=== PATIENT | male | born 1940 | race Caucasian/White ===

== ENCOUNTER 2017-05-09 09:17 | Emergency (ER) | payer MEDICARE, OTHER, SELFPAY ==
[2017-05-09 09:18] VITALS: BP 154/79; PULSE 120; RESP 20; TEMP 36.1; O2SAT 97; BMI 28.4
--- NOTE | 2017-05-09 09:38 | VDLE_ITS ---
Reason For Study: PAIN Procedure LEFT Exam performed portable in ED. GSV is normal. A preliminary report was called and/or faxed CFV is compressible, spontaneous, phasic, to ED. competent, and demonstrates normal augmentation. FV is compressible, spontaneous, phasic, competent and demonstrates normal augmentation. POP V is compressible, spontaneous, phasic, competent and demonstrates normal augmentation. T/P Trunk is compressible. PTV is compressible. LT PerV is compressible. Interpretation Summary Deep veins of the left lower extremity are patent and compressible segmentally. There is no evidence of left lower extremity deep vein thrombosis. Valvular competence appears intact within the proximal deep venous system on the left . The left greater saphenous vein appears patent and compressible segmentally. Ordering Physician: Kushal Toribio Referring Physician: ELOISA ROBLES Performed By: Mary Maddox, FERNANDA, RVT
--- NOTE | 2017-05-09 09:38 | ED.VISSUMM ---
- ER Visit Summary Date of Service: 05/09/17 Chief Complaint: Possible blood clot History of Present Illness: The patient is a 76 M who underwent spine surgery about 2 weeks ago. He has been doing well and has had no complaints related 3. Over the last couple days, he noted pain and swelling in his left calf. He was concerned for a blood clot. He never had history of venous thromboembolism. He does not take blood thinners. He denies any new symptoms like numbness or weakness. He does not have any chest pain, shortness of breath, or cough. Physical Examination: Vital signs are unremarkable except for a heart rate of 120. Patient is sitting upright and appears well. No acute distress. Speaking full sentences. Heart is regular but tachycardic. Lungs are clear. Left calf shows focal swelling and tenderness over the mid calf. He also has trace edema on the left side greater than the right side. He is neurovascular intact distally in both extremities. Good strength and sensation distally. He does have some paresthesias to his left dorsal foot, but these are not new. Test Results: Venous ultrasound pending Emergency Department Course and Treatment: Will evaluate the patient for DVT. His heart rate of 120 was concerning. He says he has no history of tachycardia. He also has no history of chest pain, shortness of breath, or cough. If he does have a DVT, I will pursue this further. For right now I will just monitor him for any new or worsening symptoms. Will reassess after his ultrasound. Ultrasound negative. Repeat heart rate 100 and pulse ox 97% on room air. This is likely muscle pain. Patient will follow up with his doctors as planned. Treatment Plan: As above Disposition: Discharged Impression: 1. Left calf pain This note was generated with [employer] dictation software. It may contain incorrect words, spelling, and punctuation that were not noted in review of the chart prior to signing ED Disposition - Plan for ED Patient: Chief Complaint: Lower Extremity Injury Referrals: Wily Espinal MD [Primary Care Provider] -
--- NOTE | 2017-05-09 10:41 | ED.DEP ---
ED Disposition - Plan for ED Patient: Chief Complaint: Lower Extremity Injury Instructions: ED [facility] Referrals: Wily Espinal MD [Primary Care Provider] -
[2017-05-09 11:01] VITALS: BP 134/86; PULSE 100; RESP 16; O2SAT 99
== END 2017-05-09 11:03 | disposition home or self-care (01) ==
LOC: ED 10:53
PROVIDERS: Emergency Provider Emergency Medicine; Family Provider Family Medicine; PCP Family Medicine
DX: M79.662 Pain in left lower leg (principal); M79.89 Other specified soft tissue disorders; R20.2 Paresthesia of skin; R00.0 Tachycardia, unspecified; M54.9 Dorsalgia, unspecified; Z79.899 Other long term (current) drug therapy; Z87.891 Personal history of nicotine dependence
CPT/HCPCS: 93971; 99282

== ENCOUNTER → 2018-09-10 11:41 | Outpatient (CLI) | payer MEDICARE, OTHER, SELFPAY ==
--- NOTE | 2018-09-10 12:15 | CR.ITP_ITS ---
General Information - General Information Admitting Diagnosis: S/P CABG - Education/Goals Barriers to Learning: Hearing Impairment, Vision Impairment Individual Counseling: Initial Assessment: Abnormal Cholesterol Levels, High Blood Pressure, Overweight/Obesity Cardiac Rehabilitation Goals: 1. Maintain the individual as the primary focus of care. 2. To improve the patient's quality of life. 3. Identification of cardiac risk factors and provide cardiac risk factor management. 4. Enhance the psychosocial status of the patient. 5. Reconditioning enough to allow the patient to resume customary activities. 6. Control symptoms of cardiac disease Scale for measuring improvement of personal goals: Enter appropriate number in Comments. 2 = Unchanged. 3 = Slightly Better. 4 = Moderate Improvement. 5 = Met my Goal Personal Goals: Initial Assessment: Participate in home exercise program, Get back to work, or to resume activities faster, Improve muscle strength and endura nce, Control risk factors (learn risk factor modification) Exercise - Initial Assessment - Visit Date of Eval: 09/10/18 Session #:: 0 - SCHEDULED TO START CR - Stages of Change Stages of Change:: Action - Physician Prescribed Exercise Modalities: Treadmill, Airdyne, NuStep, SciFit Frequency (days/week): 3x/week for 12 weeks [36 sessions] Duration (Minutes):: 30-45 MINUTES Intensity: 60-80% age predicted maximum heart rate reserve - 95-123 METs - Progression: 0.5-1.0 MET, RPE 11-14 WEEK: 2.5 Target Heart Rate:: 95-123 - Hypertension Do any of the following apply?: Yes, Medication, Diet Resting Blood Pressure:: 100/68 - Intervention Home Exercise/Activity Goal:: Moderate Exercise 30 min/day x 5 days/wk - Education Goals:: Warm-up, RPE SONIA Scale, S/S, Safe Exercise, Self-Monitoring - Exercise Program Goals Exercise Program Goals: Aerobic Activity >30 min Nutrition - Initial Assessment - Program Goals Nutrition Program Goals: LDL <70. Total Cholesterol <200. HDL >45. Triglycerides <150. HgbA1C <7%. BMI <25 - Visit Date of Assessment:: 09/10/18 - SCHEDULED TO START CR - Lipids Total Cholesterol (mg/dL) Goal = less than 200 mg/dL: 0 - NOT AVAILABLE - Diabetes Diabetes:: No Insulin: No Non-Insulin Dependent?: No Do you monitor your blood sugar at home?: No - Weight Management Height: 5 ft 7.5 in Weight:: 186 lb Body Fat %:: 28.7 - Intervention Referral to dietitian:: Yes Referral to Diabetic Clinic:: No Will attend diet classes:: Yes - Education Gave educational materials for:: Healthy eating Tobacco - Initial Assessment - Program Goals Tobacco Program Goals: Complete smoking cessation. Attend education classes. Improve Knowledge Test score - Stage of Change Stages of Change:: Action - Learning Barriers Learning Barriers: Hearing, Vision, Ready to Learn - Family Support Do you have family support?: Yes - Tobacco Use Tobacco Use: Non-smoker Do you use smokeless tobacco?: No - Intervention Smoking Cessation Referral:: No Individual Education/Counseling:: No Education Schedule Given:: Yes - Education Attended class for:: Treating Heart Disease, How The Heart Works, What it means to have Heart Disease, How Coronary Artery Disease is Diagnosed, Heart Procedures, What Heart Medications Do, Risk Factors & Modifications, Living an Active Life, Nutrition, Emotions & Heart Disease, Stress Management & Relaxation, Sleep Disorders & Heart Disease Psychosocial - Initial Assess - Target Goals Target Goals: Assess presence or absence of depression. Using a valid screening tool, maximizes coping skills. Positive support system - Stages of Change Stages of Change:: Action - Psychosocial Test Tool Used:: HANDS Depression Questionnaire - Intervention PS - Interventions: Yes Attend Stress Management Classes, No Referral to Mental Health, No Referral to [facility] Case Management, No Referral to Physician, No Uses Stress Management Skills - Education Gave educational materials for:: Coping techniques, Signs & symptoms of depression, Stress management, Relaxation techniques - Patient/Program Goal Preventative Medication(s):: Aspirin, JUSTINA inhibitor, Clopidogrel, Beta getachew, Statin/lipid - Assistive Devices Assistive Devices:: None Fall Risk Assessed:: Yes Patient Health Questionnaire Initial Assessment 1. Little interest or pleasure in doing things: Not at all 2. Feeling down, depressed, or hopeless: Not at all 3. Trouble falling or staying asleep, or sleeping too much: Not at all 4. Feeling tired or having little energy: Not at all 5. Poor appetite or overeating: Not at all 6. Feeling bad about yourself -- or that you are a failure or have let yourself or your family down: Not at all 7. Trouble concentrating on things, such as reading the newspaper or watching television: Not at all 8. Moving or speaking so slowly that other people could have noticed. Or the opposite - being so fidgety or restless that you have been moving around a lot more than usual: Not at all 9. Thoughts that you would be better off , or of hurting yourself in some way: Not at all How difficult have these problems made it for you to do your work, take care of things at home, or get along with other people?: Not difficult at all Total Score: 0 KONRAD-Q SV Test - Statements CAD is a disease of the arteries in the heart: False Examples of risk factors for heart disease: True Angina is chest pain or discomfort: True The benefits of resistance training include: False Eating more meat and dairy products: False Anti-platelet medications such as aspirin are important: True The only effective way to manage stress: False An exercise warm-up slowly increases heart rate: True Prepared, processed foods usually have high sodium: True Depression is common after a heart attack: True The statin medications lower cholesterol: True To control blood pressure, lower the amount of sodium: True If someone gets chest discomfort during walking: False Transfats are partially hydrogenated vegetable oils: True Sleep apnea that is not treated increases the risk: True To control cholesterol, one should become a vegetarian: False Someone knows if he/she is exercising at the right level: True Diabetes cannot be prevented with exercise & health eating: True Stress is a large risk for heart attack: True A diet that can help lower blood pressure is rich in: True - Total Score Total Correct Responses: 17 Self-Efficacy Initial Assessment We would like to know how confident you are in doing certain activities. Please select your confidence level for:: Select your confidence level for the following using the scale 1-10 where 1 is not at all confident and 10 is totally confident. Your score is the average of all 6 responses. Fatigue: How confident are you that you can keep the fatigue caused by your disease from interfering with the things you want to do? Select Number: 8 Physical Discomfort or Pain: How confident are you that you can keep the physical discomfort or pain of your disease from interfering with the things you want to do? Select Number: 8 Emotional Distress: How confident are you that you can keep the emotional distress caused by your disease from interfering with the things you want to do? Select Number: 10 Other Symptoms or Health Problems: How confident are you that you can keep other symptoms or health problems from interfering with the things you want to do? Select Number: 8 Different Tasks and Activities: How confident are you that you can do the different tasks and activities needed to manage your health condition so as to reduce your need to see a doctor? Select Number: 8 Medication: How confident are you that you can do things other than just taking medication to reduce how much your illness affects your everyday life? Select Number: 9 Total Score:: 8 Nutrition Survey - Nutrition Survey Instructions Scoring Instructions: Scoring is as follows: Yes = 1 points. No = 0 point. Patient score that is >/=12 is considered to be at potential nutritional risk and could benefit from a referral to a registered dietitian. - Nutrition Survey Initial Have you lost >10 lbs over the past 2 months without trying?: Yes Are you following a special diet at home for diabetes, low fat, or low salt?: No Are you interested in meeting with a dietitian for help understanding your diet?: No Do you eat less than 3 meals a day?: No Do you eat fatty meats (foster, sausage, ribs, etc), fried foods, desserts, large amounts of salad dressings, margarine, butter, or cheese most days?: Yes Do you have food allergies? [Enter types in comment field]: No Do you eat in restaurants more than 3 times a week?: No Do you season food with salt, seasoning salt, or garlic salt?: No Do you used canned, boxed, frozen meals, or soups, seasoning packets?: Yes Total Score:: 3
--- NOTE | 2018-09-10 12:47 | CR.HP_ITS ---
CR - History & Physical - General Arrival date:: 09/10/18 Arrival time:: 12:00 Date of Referral:: 08/30/18 Date of CR Evaluation:: 09/10/18 Referring Physician: DIPAK CRISTOBAL Primary Diagnosis: CABG X3 - History of Present Cardiac Event Onset Date: Enter Onset Date of cardiac illnesses in Comment field below Current stable Angina Pectoris:: No Acute Myocardial Infarction within 12 months:: No Coronary Artery Bypass Graft:: Yes - X3 Heart valve replacement or repair:: No PTCA or coronary stenting:: No Heart or Heart-Lung Transplant:: No Type of Symptoms:: JUST SOB Interventions with present event:: CAGB X3 Were there any complications?: NONE - Medications Home Medications: Ambulatory Orders Medication Instructions Recorded Baclofen [Lioresal] 10 mg PO QHS 05/09/17 Levothyroxine [Synthroid] 175 mcg PO DAILY 05/09/17 Oxycodone HCl/Acetaminophen 1 - 2 tablet PO Q6H PRN PRN 05/09/17 [Percocet 5/325] Pantoprazole Sodium [Protonix] 40 mg PO DAILY 05/09/17 - Allergies Allergies/Adverse Reactions: Allergies azithromycin [From Zithromax] Adverse Reaction (Verified 05/09/17 09:20) Nausea/Vom/Diarrhea - Sleep Disorder Evaluation Hx of Sleep Apnea: No Do you snore loudly (louder than talking or can be heard through closed doors)?: No Do you often feel tired/ fatigued/ sleepy during daytime?: No Has anyone observed you stop breathing during sleep?: No History of Hypertension (for STOP score): No STOP Results: Negative Advanced Directives - Advanced Directives Power of Display And Banner Designer: Yes Living Will: Yes Advance Directives Information Provided: Yes Advance Directives on File: No - PT ENCOURAGED TO BRING IN ALL COPIES TO [facility] MEDICAL RECORDS DNR Order?:: No Social History - Smoking History Smoking Status: Former smoker Years Smokin Hx Smoking Cessation Date: 1986 Hx Tobacco Use: Yes - Alcohol Use Alcohol Usage: No - CASUAL - Substance Abuse Hx Substance Use: No - Occupation Occupation (List type of work in comments):: Retired - Hobbies, Recreation, Social Activities Hobbies: Other - GOLF, GARDENING Recreational Activities: I cannot do any recreational activities at all Social Environment - Status Marital Status: - Current Living Arrangements Living Environment:: Spouse - Children How many children do you have?: 3 Do any of your children live nearby?: Yes - Safety Do you feel safe in your surroundings?: Yes - Assistance Do you need any assistance at home?: NONE Review of Systems - Review of Systems Hints: Right click = Denies (Slash). Left click = Reports ([place]) Review of Present Symptoms: Reports: Shortness of Breath with Exertion, Operative Discomfort, Wound Healing, Appetite - Normal. Denies: Shortness of Breath at Rest, PVD, Angina, Dizziness/Lightheadedness, Fatigue, Heart Arrhythmia/Irregularities, Appetite - Special Diet, Sleep - Normal - Pain Is Patient Pain Free?: Yes Risk Factor Assessment - Chief Complaint Chief Complaint: PT HERE FOR CR PHASE II EVALUALTION, CABG X3 - Vital Signs Temperature: 98.6 F Respiratory Rate: 14 Pulse Ox: 97 Blood Pressure: 100/68 Nailbeds:: PINK - Pulse Pulse Rate: 85 Pulse Rhythm: Regular - Hypertension How long have you been treated?: SINCE CABG On medication(s)?: YES Blood Pressure Sitting - Left Arm: 100/68 - Blood Cholesterol/Lipids Total Cholesterol (mg/dL) Goal = less than 200 mg/dL: 0 - NO CHOL LAB AVAIL AT THIS TIME - Diabetes Nutrition Referral for Diabetes: No - Obesity Height: 5 ft 7.5 in Weight:: 186 lb Weight in Pounds: 186.0 lbs Weight Source: Estimated by Patient Body Mass Index (BMI): 28.7 Nutritional Referral for Obesity: No - Physical Inactivity Physical Inactivity: None - Risk Stratification Risk Guidelines: Lowest Risk: Risk Factor for Smoking, Risk Factor for Dyslipidemia, Risk Factor for Diabetes, Risk Factor for Hypertension, Risk Factor for Depression, Moderate Risk: Risk Factor for Obesity, Risk Factor for Sedentary Lifestyle - For Smoking Smoking Risk Guidelines: Smoking Low Risk: None or quit greater than 6 months ago. Smoking Moderate Risk: Smoker or quit 6 months or less ago. Smoking High Risk: Smoker - For Dyslipidemia Dyslipidemia Risk Guidelines: Low Risk: Moderate Risk: High Risk: 15-25% fat 25.1-29% fat >/= 30% fat. <7% sat fat 7-9% sat fat >9% sat fat. <150 mg chol 150-299 mg chol >/= 300 mg chol. LDL <100 LDL 100-129 LDL >/= 130. Chol/HDL ratio <5.0 Chol/HDL ratio 5.0-6.0 Chol/HDL ratio >6.0. Triglycerides <100 Triglycerides 100-149 Triglycerides >/= 150 - For Diabetes Mellitus Diabetes Risk Guidelines: Diabetes Low Risk: HgA1c <6.5% and/or FBG <120. Diabetes Moderate Risk: HgA1c 6.6-7.9% and/or FBG 120-180. Diabetes High Risk: HgA1c >/= 8% and/or FBG >180 - For Obesity/Overweight Obesity/Overweight Risk Guidelines: Obesity Low Risk: BMI <25.0. Obesity Moderate Risk: BMI 25-29.9. Obesity High Risk: BMI >/= 30.0 - For Hypertension Hypertension Risk Guidelines: Hypertension Low Risk: Systolic <120 and Diastolic <80. Hypertension Moderate Risk: Systolic 120-139 and Diastolic 80-89. Hypertension High Risk: Systolic >/= 140 and Diastolic >/= 90 - For Sedentary Lifestyle Sedentary Lifestyle Risk Guidelines: Sedentary Lifestyle Low Risk: >/= 1,500 kcal/week. Sedentary Lifestyle Moderate Risk: 700-1,499 kcal/week. Sedentary Lifestyle High Risk: < 700 kcal/week - For Depression Depression Risk Guidelines: Depression Low Risk: Not clinically depressed. Depression Moderate Risk: Mildly depressed. Depression High Risk: Clinically depressed Motivation - Motivation to Participate On a scale of 1 to 10, how prepared are you to commit to attending program?: 10 What do you see as barriers to successfully being able to complete the program?: NONE What do you see as the benefits of succesfully completing the program? In other words, what do you hope to get out of participating in the program?: WANT TO IMPROVE MY HEALTH AND HAVE AN ACIVE LIFE Are there issues you are dealing with that will interfere with completing the program?: NONE Do you have a spouse or signficant other, family or friends who will help support you to complete the program?: SPOUSE
[2018-09-10 13:05] VITALS: BP 100/68; PULSE 85; RESP 14; TEMP 37; O2SAT 97; BMI 28.7
[2018-09-10 13:25] VITALS: BP 100/68
== END ==
PROVIDERS: Family Provider Family Medicine; PCP Family Medicine
DX: Z95.1 Presence of aortocoronary bypass graft (principal)

== ENCOUNTER 2018-09-11 14:33 | Outpatient (RCR) | payer MEDICARE, OTHER, SELFPAY | END 2018-09-11 23:59 | LOC: CR 14:33 | PROVIDERS: Family Provider Family Medicine; PCP Family Medicine | DX: I25.10 Atherosclerotic heart disease of native coronary artery without angina pectoris (principal); Z95.1 Presence of aortocoronary bypass graft | CPT/HCPCS: 93798 ==

== ENCOUNTER 2018-10-09 14:15 | Outpatient (RCR) | payer MEDICARE, OTHER, SELFPAY ==
[2018-09-10 13:05] VITALS: BMI 28.7
--- NOTE | 2018-10-11 09:20 | CR.ITP_ITS ---
Exercise - 30-day Assessment - Visit Date of Eval: 10/11/18 Session #:: 13 - Patient has not missed any sessions. - Stages of Change Stages of Change:: Action - Physician Prescribed Exercise Modalities: Treadmill, Rower, Airdyne, NuStep Frequency (days/week): 3 Duration (Minutes):: 30-45 Intensity: 60-80% age predicted maximum heart rate reserve METs - Progression: 0.5-1.0 MET, RPE 11-14 WEEK: 3.0 Target Heart Rate:: 95-123 w/ max HR 127 - Hypertension Resting Blood Pressure:: 100/62 - Resting HR 90-116 Medication Changes:: Yes - Metoprolol increased to 75mg BID. - Intervention Home Exercise/Activity Goal:: Moderate Exercise 30 min/day x 5 days/wk - Education Goals:: Warm-up, RPE SONIA Scale, S/S, Safe Exercise, Self-Monitoring - Exercise Program Goals Exercise Program Goals: Aerobic Activity >30 min Nutrition - Initial Assessment - Program Goals Nutrition Program Goals: LDL <70. Total Cholesterol <200. HDL >45. Triglycerides <150. HgbA1C <7%. BMI <25 - Diabetes Do you monitor your blood sugar at home?: No Nutrition - 30-Day Assessment - Program Goals Nutrition Program Goals: LDL <70. Total Cholesterol <200. HDL >45. Triglycerides <150. HgbA1C <7%. BMI <25 - Visit Date of Eval: 10/11/18 - Stages of Change Stages of Change:: Action - Lipids Has the patient seen the dietitian?: No - Diabetes Diabetes:: No - Weight Management Weight:: 191 lb - +/- 0.5 stable - Intervention Referral to dietitian:: No Referral to Diabetic Clinic:: No Will attend diet classes:: Yes - Education Attended class for:: Healthy eating Tobacco - Initial Assessment - Program Goals Tobacco Program Goals: Complete smoking cessation. Attend education classes. Improve Knowledge Test score - Learning Barriers Learning Barriers: Hearing, Vision, Ready to Learn Tobacco - 30-Day Assessment - Program Goals Tobacco Program Goals: Complete smoking cessation. Attend education classes. Improve Knowledge Test score - Stage of Change Stages of Change:: Action - Learning Barriers Learning Barriers: Participates in education - Family Support Do you have family support?: Yes - Tobacco Use Tobacco Use: Non-smoker Do you use smokeless tobacco?: No - Intervention Smoking Cessation Referral:: No Education Schedule Given:: Yes - Education Attended class for:: Treating Heart Disease, How The Heart Works, What it means to have Heart Disease, How Coronary Artery Disease is Diagnosed, Heart Procedures Psychosocial - Initial Assess - Target Goals Target Goals: Assess presence or absence of depression. Using a valid screening tool, maximizes coping skills. Positive support system - Psychosocial Test Tool Used:: HANDS Depression Questionnaire - Assistive Devices Fall Risk Assessed:: Yes Psychosocial - 30-Day Assess - Target Goals Target Goals: Assess presence or absence of depression. Using a valid screening tool, maximizes coping skills. Positive support system - Stages of Change Stages of Change:: Action - Psychosocial Test Tool Used:: HANDS Depression Questionnaire - Intervention PS - Interventions: Yes Attend Stress Management Classes, No Referral to Mental Health, No Referral to [facility] Case Management, No Referral to Physician, No Uses Stress Management Skills - Education Attended classes for:: Coping techniques, Signs & symptoms of depression, Stress management, Relaxation techniques - Patient/Program Goal Preventative Medication(s):: Aspirin, JUSTINA inhibitor, Clopidogrel, Beta getachew, Statin/lipid - Assistive Devices Assistive Devices:: None Fall Risk Assessed:: Yes Patient Health Questionnaire 30-Day Re-eval Assessment 1. Little interest or pleasure in doing things: Not at all 2. Feeling down, depressed, or hopeless: Not at all 3. Trouble falling or staying asleep, or sleeping too much: Not at all 4. Feeling tired or having little energy: Not at all 5. Poor appetite or overeating: Not at all 6. Feeling bad about yourself -- or that you are a failure or have let yourself or your family down: Not at all 7. Trouble concentrating on things, such as reading the newspaper or watching television: Not at all 8. Moving or speaking so slowly that other people could have noticed. Or the opposite - being so fidgety or restless that you have been moving around a lot more than usual: Not at all 9. Thoughts that you would be better off , or of hurting yourself in some way: Not at all Total Score: 0 Self-Efficacy 30-Day Re-eval Assessment We would like to know how confident you are in doing certain activities. Please select your confidence level for:: Select your confidence level for the following using the scale 1-10 where 1 is not at all confident and 10 is totally confident. Your score is the average of all 6 responses. Fatigue: How confident are you that you can keep the fatigue caused by your disease from interfering with the things you want to do? Select Number: 9 Physical Discomfort or Pain: How confident are you that you can keep the physical discomfort or pain of your disease from interfering with the things you want to do? Select Number: 9 Emotional Distress: How confident are you that you can keep the emotional distress caused by your disease from interfering with the things you want to do? Select Number: 10 Other Symptoms or Health Problems: How confident are you that you can keep other symptoms or health problems from interfering with the things you want to do? Select Number: 9 Different Tasks and Activities: How confident are you that you can do the different tasks and activities needed to manage your health condition so as to reduce your need to see a doctor? Select Number: 9 Medication: How confident are you that you can do things other than just taking medication to reduce how much your illness affects your everyday life? Select Number: 9 Total Score:: 9
[2018-10-11 09:25] VITALS: BP 100/62
== END 2018-10-12 23:59 ==
LOC: CR 14:15
PROVIDERS: Family Provider Family Medicine; PCP Family Medicine
DX: I25.10 Atherosclerotic heart disease of native coronary artery without angina pectoris (principal); Z95.1 Presence of aortocoronary bypass graft
CPT/HCPCS: 93798

== ENCOUNTER 2018-11-11 14:15 | Outpatient (RCR) | payer MEDICARE, OTHER, SELFPAY ==
[2018-09-10 13:05] VITALS: BMI 28.7
[2018-10-13 01:05] VITALS: BP 100/62
--- NOTE | 2018-11-11 10:19 | PCM.CR.ITP ---
Exercise - 60-Day Assessment - Visit Date of Eval: 11/08/18 Session #:: 24 - Stages of Change Stages of Change:: Action - Physician Prescribed Exercise Modalities: Treadmill, Rower, Airdyne, NuStep Frequency (days/week): 3 Duration (Minutes):: 30-45 Intensity: 60-80% age predicted maximum heart rate reserve METs - Progression: 0.5-1.0 MET, RPE 11-14 WEEK: 3.0 increase limited by heart rate Target Heart Rate:: 95-123 w max HR 126 - Hypertension Resting Blood Pressure:: 98/58 Peak Exercise Blood Pressure:: 144/70 Medication Changes:: Yes - Metoprolol increased to 75mg BID - Intervention Home Exercise/Activity Goal:: Moderate Exercise 30 min/day x 5 days/wk - Education Goals:: Warm-up, RPE SONIA Scale, S/S, Safe Exercise, Self-Monitoring - Exercise Program Goals Exercise Program Goals: Aerobic Activity >30 min Nutrition - Initial Assessment - Program Goals Nutrition Program Goals: LDL <70. Total Cholesterol <200. HDL >45. Triglycerides <150. HgbA1C <7%. BMI <25 - Diabetes Do you monitor your blood sugar at home?: No Nutrition - 60-Day Assessment - Program Goals Nutrition Program Goals: LDL <70. Total Cholesterol <200. HDL >45. Triglycerides <150. HgbA1C <7%. BMI <25 - Visit Date of Eval: 11/08/18 - Stages of Change Stages of Change:: Action - Lipids Has the patient seen the dietitian?: No - Diabetes Diabetes:: No Insulin: No Non-Insulin Dependent?: No Tobacco - Initial Assessment - Program Goals Tobacco Program Goals: Complete smoking cessation. Attend education classes. Improve Knowledge Test score - Learning Barriers Learning Barriers: Hearing, Vision, Ready to Learn Tobacco - 60-Day Assessment - Program Goals Tobacco Program Goals: Complete smoking cessation. Attend education classes. Improve Knowledge Test score - Stage of Change Stages of Change:: Action - Family Support Do you have family support?: Yes - Tobacco Use Tobacco Use: Non-smoker Do you use smokeless tobacco?: No - Intervention Smoking Cessation Referral:: No Education Schedule Given:: Yes - Education Attended class for:: Treating Heart Disease, How The Heart Works, What it means to have Heart Disease, How Coronary Artery Disease is Diagnosed, Heart Procedures, What Heart Medications Do, Risk Factors & Modifications, Living an Active Life, Nutrition, Emotions & Heart Disease, Stress Management & Relaxation, Sleep Disorders & Heart Disease Psychosocial - Initial Assess - Target Goals Target Goals: Assess presence or absence of depression. Using a valid screening tool, maximizes coping skills. Positive support system - Psychosocial Test Tool Used:: HANDS Depression Questionnaire - Assistive Devices Fall Risk Assessed:: Yes Psychosocial - 60-Day Assess - Target Goals Target Goals: Assess presence or absence of depression. Using a valid screening tool, maximizes coping skills. Positive support system - Stages of Change Stages of Change:: Action - Psychosocial Test Tool Used:: HANDS Depression Questionnaire - Intervention PS - Interventions: Yes Attend Stress Management Classes, No Referral to Mental Health, No Referral to [facility] Case Management, No Referral to Physician, No Uses Stress Management Skills - Education Attended classes for:: Coping techniques, Signs & symptoms of depression, Stress management, Relaxation techniques - Patient/Program Goal Preventative Medication(s):: Aspirin, JUSTINA inhibitor, Clopidogrel, Beta getachew, Statin/lipid - Assistive Devices Assistive Devices:: None Fall Risk Assessed:: Yes Patient Health Questionnaire 60-Day Re-eval Assessment 1. Little interest or pleasure in doing things: Not at all 2. Feeling down, depressed, or hopeless: Not at all 3. Trouble falling or staying asleep, or sleeping too much: Not at all 4. Feeling tired or having little energy: Not at all 5. Poor appetite or overeating: Not at all 6. Feeling bad about yourself -- or that you are a failure or have let yourself or your family down: Not at all 7. Trouble concentrating on things, such as reading the newspaper or watching television: Not at all 8. Moving or speaking so slowly that other people could have noticed. Or the opposite - being so fidgety or restless that you have been moving around a lot more than usual: Not at all 9. Thoughts that you would be better off , or of hurting yourself in some way: Not at all How difficult have these problems made it for you to do your work, take care of things at home, or get along with other people?: Not difficult at all Total Score: 0 Self-Efficacy 60-Day Re-eval Assessment We would like to know how confident you are in doing certain activities. Please select your confidence level for:: Select your confidence level for the following using the scale 1-10 where 1 is not at all confident and 10 is totally confident. Your score is the average of all 6 responses. Fatigue: How confident are you that you can keep the fatigue caused by your disease from interfering with the things you want to do? Select Number: 9 Physical Discomfort or Pain: How confident are you that you can keep the physical discomfort or pain of your disease from interfering with the things you want to do? Select Number: 9 Emotional Distress: How confident are you that you can keep the emotional distress caused by your disease from interfering with the things you want to do? Select Number: 10 Other Symptoms or Health Problems: How confident are you that you can keep other symptoms or health problems from interfering with the things you want to do? Select Number: 9 Different Tasks and Activities: How confident are you that you can do the different tasks and activities needed to manage your health condition so as to reduce your need to see a doctor? Select Number: 9 Medication: How confident are you that you can do things other than just taking medication to reduce how much your illness affects your everyday life? Select Number: 10 Total Score:: 9
[2018-11-11 10:23] VITALS: BP 144/70; BP 98/58
== END 2018-11-11 23:59 ==
LOC: CR 14:15
PROVIDERS: Family Provider Family Medicine; PCP Family Medicine
DX: I25.10 Atherosclerotic heart disease of native coronary artery without angina pectoris (principal); Z95.1 Presence of aortocoronary bypass graft
CPT/HCPCS: 93798

== ENCOUNTER 2018-12-09 14:15 | Outpatient (RCR) | payer MEDICARE, OTHER, SELFPAY ==
[2018-09-10 13:05] VITALS: BMI 28.7
[2018-11-12 00:57] VITALS: BP 144/70; BP 98/58
--- NOTE | 2018-12-09 08:18 | CR.ITP_ITS ---
Exercise - Final/Discharge - Visit Date of Eval: 12/09/18 Session #:: 36 - Stages of Change Stages of Change:: Action - Physician Prescribed Exercise Modalities: Treadmill, Airdyne, NuStep Frequency (days/week): 3 Duration (Minutes):: 30-45 Intensity: 60-80% age predicted maximum heart rate reserve METs - Progression: 0.5-1.0 MET, RPE 11-14 WEEK: 3.0 unchanged due to HR Target Heart Rate:: 95-123 w/ max HR 129 - Hypertension Do any of the following apply?: Yes, Medication Resting Blood Pressure:: 128/82 Peak Exercise Blood Pressure:: 138/68 - Intervention Home Exercise/Activity Goal:: Moderate Exercise 30 min/day x 5 days/wk - Education Goal Progress: Goal Met - Exercise Program Goals Exercise Program Goals: Aerobic Activity >30 min Nutrition - Initial Assessment - Program Goals Nutrition Program Goals: LDL <70. Total Cholesterol <200. HDL >45. Triglycerides <150. HgbA1C <7%. BMI <25 - Diabetes Do you monitor your blood sugar at home?: No Nutrition - Final Assessment - Program Goals Nutrition Program Goals: LDL <70. Total Cholesterol <200. HDL >45. Triglycerides <150. HgbA1C <7%. BMI <25 - Visit Date of Eval: 12/09/18 - Diabetes Diabetes:: No Insulin: No Non-Insulin Dependent?: No - Weight Management Height: 5 ft 7.5 in Weight:: 190 lb - weight unchanged during CR. Body Fat %:: 28.7 - Intervention Referral to dietitian:: No Referral to Diabetic Clinic:: No Will attend diet classes:: Yes - Education Education Goal Reached?: Yes Tobacco - Initial Assessment - Program Goals Tobacco Program Goals: Complete smoking cessation. Attend education classes. Improve Knowledge Test score - Learning Barriers Learning Barriers: Hearing, Vision, Ready to Learn Tobacco - Final Assessment - Program Goals Tobacco Program Goals: Complete smoking cessation. Attend education classes. Improve Knowledge Test score - Stage of Change Stages of Change:: Action - Family Support Do you have family support?: Yes - Tobacco Use Tobacco Use: Non-smoker Do you use smokeless tobacco?: No - Intervention Smoking Cessation Referral:: No Individual Education/Counseling:: No Education Schedule Given:: No - Education Education Goal Reached?: Yes Psychosocial - Initial Assess - Target Goals Target Goals: Assess presence or absence of depression. Using a valid screening tool, maximizes coping skills. Positive support system - Psychosocial Test Tool Used:: HANDS Depression Questionnaire - Assistive Devices Fall Risk Assessed:: Yes Psychosocial - Final Assessmen - Target Goals Target Goals: Assess presence or absence of depression. Using a valid screening tool, maximizes coping skills. Positive support system - Stages of Change Stages of Change:: Action - Psychosocial Test Tool Used:: HANDS Depression Questionnaire - Intervention PS - Interventions: Yes Attend Stress Management Classes, Yes Uses Stress Management Skills, No Referral to Mental Health, No Referral to [facility] Case Management, No Referral to Physician - Education Education Goal Reached?: Yes - Patient/Program Goal Preventative Medication(s):: Aspirin, JUSTINA inhibitor, Clopidogrel, Beta getachew, Statin/lipid - patient compliant with hsi medications. - Assistive Devices Assistive Devices:: None Fall Risk Assessed:: Yes Patient Health Questionnaire Discharge Assessment 1. Little interest or pleasure in doing things: Not at all 2. Feeling down, depressed, or hopeless: Not at all 3. Trouble falling or staying asleep, or sleeping too much: Not at all 4. Feeling tired or having little energy: Not at all 5. Poor appetite or overeating: Not at all 6. Feeling bad about yourself -- or that you are a failure or have let yourself or your family down: Not at all 7. Trouble concentrating on things, such as reading the newspaper or watching television: Not at all 8. Moving or speaking so slowly that other people could have noticed. Or the opposite - being so fidgety or restless that you have been moving around a lot more than usual: Not at all 9. Thoughts that you would be better off , or of hurting yourself in some way: Not at all Total Score: 0 KONRAD-Q SV Test - Statements CAD is a disease of the arteries in the heart: False Examples of risk factors for heart disease: True Angina is chest pain or discomfort: True The benefits of resistance training include: True Eating more meat and dairy products: False Anti-platelet medications such as aspirin are important: True The only effective way to manage stress: False An exercise warm-up slowly increases heart rate: True Prepared, processed foods usually have high sodium: True Depression is common after a heart attack: True The statin medications lower cholesterol: True To control blood pressure, lower the amount of sodium: True If someone gets chest discomfort during walking: False Transfats are partially hydrogenated vegetable oils: True Sleep apnea that is not treated increases the risk: False To control cholesterol, one should become a vegetarian: False Someone knows if he/she is exercising at the right level: True Diabetes cannot be prevented with exercise & health eating: False Stress is a large risk for heart attack: True A diet that can help lower blood pressure is rich in: True - Total Score Total Correct Responses: 20 Self-Efficacy Discharge Assessment We would like to know how confident you are in doing certain activities. Please select your confidence level for:: Select your confidence level for the following using the scale 1-10 where 1 is not at all confident and 10 is totally confident. Your score is the average of all 6 responses. Fatigue: How confident are you that you can keep the fatigue caused by your disease from interfering with the things you want to do? Select Number: 10 Physical Discomfort or Pain: How confident are you that you can keep the physical discomfort or pain of your disease from interfering with the things you want to do? Select Number: 10 Emotional Distress: How confident are you that you can keep the emotional distress caused by your disease from interfering with the things you want to do? Select Number: 10 Other Symptoms or Health Problems: How confident are you that you can keep other symptoms or health problems from interfering with the things you want to do? Select Number: 10 Different Tasks and Activities: How confident are you that you can do the different tasks and activities needed to manage your health condition so as to reduce your need to see a doctor? Select Number: 10 Medication: How confident are you that you can do things other than just taking medication to reduce how much your illness affects your everyday life? Select Number: 10 Total Score:: 10 Nutrition Survey - Nutrition Survey Instructions Scoring Instructions: Scoring is as follows: Yes = 1 points. No = 0 point. Patient score that is >/=12 is considered to be at potential nutritional risk and could benefit from a referral to a registered dietitian. - Nutrition Survey Discharge Have you lost >10 lbs over the past 2 months without trying?: No Are you following a special diet at home for diabetes, low fat, or low salt?: No Are you interested in meeting with a dietitian for help understanding your diet?: No Do you eat less than 3 meals a day?: No Do you eat fatty meats (foster, sausage, ribs, etc), fried foods, desserts, large amounts of salad dressings, margarine, butter, or cheese most days?: No Do you have food allergies? [Enter types in comment field]: No Do you eat in restaurants more than 3 times a week?: No Do you season food with salt, seasoning salt, or garlic salt?: No Do you used canned, boxed, frozen meals, or soups, seasoning packets?: No Total Score:: 0
[2018-12-09 08:31] VITALS: BP 128/82; BP 138/68
== END 2018-12-12 23:59 ==
LOC: CR 14:15
PROVIDERS: Family Provider Family Medicine; PCP Family Medicine
DX: I25.10 Atherosclerotic heart disease of native coronary artery without angina pectoris (principal); Z95.1 Presence of aortocoronary bypass graft
CPT/HCPCS: 93798

== ENCOUNTER 2018-12-14 23:00 | Observation (INO) | payer MEDICARE, OTHER, SELFPAY ==
[2018-09-10 13:05] VITALS: BMI 28.7
[2018-12-14 23:02] VITALS: BP 147/76; PULSE 90; RESP 20; TEMP 36.7; O2SAT 97; BMI 28.3
--- NOTE | 2018-12-14 23:25 | CT_ITS ---
STUDY: CT ABDOMEN AND PELVIS WITHOUT CONTRAST REASON FOR EXAM: Male, 77 years old. Diffuse abdominal pain since , which has worsened tonight. Fever. Achiness, which radiates into the right shoulder and chest. RADIATION DOSAGE (If Supplied By Facility): CTDIvol = ( 9.34 ) mGy, DLP = ( 506.46 ) mGycm TECHNIQUE: Transaxial images were obtained from the dome of the diaphragm to the symphysis pubis without oral contrast, and without intravenous contrast. Sagittal and coronal images were reconstructed. Individualized dose optimization techniques were used for this CT. COMPARISON: Chest x-ray 04/23/2014. FINDINGS: There is chronic elevation of the right hemidiaphragm. There is mild bilateral basilar atelectasis. The visualized portions of the heart are within normal limits. There are coronary artery calcifications. Normal liver. The gallbladder is dilated with short axis diameter of 5.7 cm and there is prominent pericholecystic fat infiltration. There is no demonstrated bile duct dilatation. Normal spleen. There is a single small calcification in the head of the pancreas, proximal centimeters. The pancreas otherwise appears normal with no radiographic evidence for acute pancreatitis. Normal bilateral adrenal glands. Normal right kidney. There is a 3.5 cm left upper pole renal cortical cyst which contains a small mural calcification There is a large hiatal hernia. Normal small intestine. Normal colon. The appendix is visualized on axial images 135-148 and it appears normal.. There is diffuse atherosclerotic calcification of the abdominal aorta with elongation and tortuosity, but without a demonstrated aneurysm. Normal inferior vena cava. Normal retroperitoneum. Normal urinary bladder. There is a small umbilical hernia containing fat, but no bowel. The postsurgical changes in the lumbar spine, overlying multilevel degenerative changes. CT/Abdomen/Pelvis without Cont IMPRESSION: Prominent dilatation of the gallbladder with pericholecystic fat infiltration, consistent with cholecystitis. There are no visualized calcified gallstones. Ultrasound with have greater sensitivity for noncalcified gallstones. No demonstrated bile duct dilatation. Large hiatal hernia. Atherosclerosis. 3.5 cm left renal cyst contains a mural calcification. Would suggest follow-up renal ultrasound. No demonstrated urinary calculi or hydronephrosis. No evidence for appendicitis or diverticulitis. Electronically Signed: Jose De La Garza MD at 0:08 EDT , Service support ,
--- NOTE | 2018-12-14 23:26 | ED.DCSUM_ITS ---
History of Present Illness Chief Complaint: Abd Pain Informant: Patient - Abdominal Pain/Flank Pain Onset: Days - 2-3 Context: Gradual Onset Timing: Continuous - not colicky Quality: Aching Location: Diffuse Current Severity: Moderate Maximum Severity: Moderate Worsened by: Nothing Relieved by: Nothing - Nausea/Vomiting/Emesis GI Symptom: Negative for: Nausea, Vomiting - Diarrhea/Melena/Hematochezia GI Symptom: Negative for: Diarrhea, Melena, Hematochezia Associated Symptoms: Negative for: Dysuria, Frequency, Hematuria, Urgency Narrative: No different with eating food. Started gradually while doing nothing he states. Radiates into his right mid back, no discomfort up into his shoulder but he feels it in his right lower chest as well. Nonpleuritic. No recent cough or shortness of breath. Has a history of CABG. No leg pain or swelling. No orthopnea. No lightheadedness. Thought he had a fever last night in the 99's. No urinary symptoms, normal bowel movements. Pain is not colicky. He has more pain in his abdomen that he does in his back. No history of any abdominal surgeries. 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: Chronic Past Medical History - Allergies and Home Meds Allergies/Adverse Reactions: Allergies cefdinir [From Omnicef] Allergy (Intermediate, Verified 12/14/18 23:02) Diarrhea atorvastatin Adverse Reaction (Intermediate, Verified 12/14/18 23:02) myalgias azithromycin [From Zithromax] Adverse Reaction (Verified 12/14/18 23:02) Nausea/Vom/Diarrhea Primary Care Physician: Wily Espinal MD [Primary Care Provider] - Surgical History: coronary bypass surgery Lives: Spouse/ Significant Other Smoking Status: Former smoker Alcohol: None Review of Systems General: Denies: Chills, Fever, Sweats Eyes: Denies: Visual changes - bilaterally, Diplopia ENT: Denies: Rhinorrhea, Sore throat Cardiovascular: Reports: Chest pain. Denies: Palpitations, Heart racing Respiratory: Denies: Dyspnea, Cough, Dyspnea on exertion Gastrointestinal: Reports: Abdominal pain. Denies: Nausea, Vomiting, Diarrhea, Constipation, Melena, Hematochezia Genitourinary: Denies: Dysuria, Hematuria, Frequency Musculoskeletal: Reports: Back pain. Denies: Neck pain, Swelling, Extremity Pain Skin: Denies: Rash, Wounds Neurological: Denies: Headache, Weakness, Numbness Physical Exam Vital Signs/Narrative: Vital Signs Temp Pulse Resp BP Pulse Ox 12/14/18 23:02 98.0 F 90 20 H 147/76 H 97 Inital Vital Signs reviewed: Yes General: Well nourished, Well developed, No Acute Distress Head: Normocephalic, Atraumatic Eyes: Perrl, EOMI ENT: Moist mucous membranes, No rhinorrhea Neck: Supple, Nontender Cardiovascular: Regular rate, Regular rhythm, No murmurs Respiratory: No distress, CTA bilaterally, Chest nontender Abdomen: Soft, Nondistended, Normal bowel sounds, Tender - Epigastrium and right upper quadrant only. Otherwise nontender., Shelton's sign. Negative for: Rebound tenderness Back: Normal Inspection, CVA tenderness - Mild right side only, also tender to superficial palpation. No rash.. Negative for: Spinal tenderness Extremities: Nontender, No edema. Negative for: Calf Tenderness Skin: Normal color, No rash, No Trauma Neurological: Alert, Oriented x3, Cranial nerves II-XII grossly intact, Normal Strength, Normal Sensation, Normal Gait Psychological: Normal affect, Normal Mood Diagnostic/Tx/Re-eval Impressions Abdomen/Pelvis CT 12/14/18 23:25 IMPRESSION: Prominent dilatation of the gallbladder with pericholecystic fat infiltration, consistent with cholecystitis. There are no visualized calcified gallstones. Ultrasound with have greater sensitivity for noncalcified gallstones. No demonstrated bile duct dilatation. Large hiatal hernia. Atherosclerosis. 3.5 cm left renal cyst contains a mural calcification. Would suggest follow-up renal ultrasound. No demonstrated urinary calculi or hydronephrosis. No evidence for appendicitis or diverticulitis. Electronically Signed: Jose De La Garza MD at 0:08 EDT , Service support , Gallbladder Ultrasound 12/15/18 00:31 IMPRESSION: Dilated thick-walled gallbladder containing sludge, with pericholecystic fluid, and a reportedly positive sonographic Shelton's sign. No gallstones are seen, however, findings are still suspicious for acute cholecystitis. No bile duct dilatation. Electronically Signed: Jose De La Garza MD at 1:13 EDT , Service support , 12/14/18 23:25 Abdomen/Pelvis without Cont [CT] Stat 12/15/18 00:31 US Gallbladder [Gallbladder] [US] Stat Laboratory Results 12/14/18 12/14/18 12/14/18 23:15 23:15 23:15 WBC 15.8 H RBC 3.04 L Hgb 10.5 L Hct 31.7 L MCV 104.3 H MCH 34.5 H MCHC 33.1 RDW Std Deviation 55.8 H RDW Coeff of Abena 14.8 H Plt Count 176 MPV 10.4 Immature Gran % (Auto) 2.200 H Neut % (Auto) 82.8 H Lymph % (Auto) 4.0 L [place] % (Auto) 9.9 Eos % (Auto) 0.8 Baso % (Auto) 0.3 Absolute Neuts (auto) 13.1 H Absolute Lymphs (auto) 0.63 L Nucleated RBC % 0.1 Differential Comment Diff Path Review May foll Macrocytosis 1+ Sodium 132 L Potassium 4.0 Chloride 99 Carbon Dioxide 27.0 Anion Gap 6 BUN 13 Creatinine 0.91 Estim Creat Clear Calc 70.14 Est GFR (MDRD) Af Amer 104 Est GFR (MDRD) Non-Af 86 BUN/Creatinine Ratio 14.3 Glucose 129 H Calcium 8.7 Total Bilirubin 0.80 AST 18 ALT 19 Alkaline Phosphatase 79 Troponin I < 0.015 Total Protein 7.1 Albumin 3.5 Globulin 3.6 Albumin/Globulin Ratio 1.0 Lipase 126 Urine Color Urine Clarity Urine pH Ur Specific Hamilton Urine Protein Urine Glucose (UA) Urine Ketones Urine Occult Blood Urine Nitrite Urine Bilirubin Urine Urobilinogen Ur Leukocyte Esterase Urine RBC Urine WBC Ur Squamous Epith Cells Urine Bacteria Urine Mucus 12/14/18 23:40 WBC RBC Hgb Hct MCV MCH MCHC RDW Std Deviation RDW Coeff of Abena Plt Count MPV Immature Gran % (Auto) Neut % (Auto) Lymph % (Auto) [place] % (Auto) Eos % (Auto) Baso % (Auto) Absolute Neuts (auto) Absolute Lymphs (auto) Nucleated RBC % Differential Comment Diff Path Review Macrocytosis Sodium Potassium Chloride Carbon Dioxide Anion Gap BUN Creatinine Estim Creat Clear Calc Est GFR (MDRD) Af Amer Est GFR (MDRD) Non-Af BUN/Creatinine Ratio Glucose Calcium Total Bilirubin AST ALT Alkaline Phosphatase Troponin I Total Protein Albumin Globulin Albumin/Globulin Ratio Lipase Urine Color Yellow Urine Clarity Sl. Cloudy Urine pH 7.0 Ur Specific Hamilton 1.010 Urine Protein 30 H Urine Glucose (UA) Normal Urine Ketones 5 H Urine Occult Blood 10 H Urine Nitrite Negative Urine Bilirubin Negative Urine Urobilinogen 1 H Ur Leukocyte Esterase 25 H Urine RBC 0-5 SEEN Urine WBC 0-5 SEEN Ur Squamous Epith Cells 0 SEEN Urine Bacteria 0 SEEN Urine Mucus 0 SEEN - Rhythm Strip Rhythm Strip: Sinus Rhythm Rate: 93 Ectopy: None - EKG Initial EKG Interpretation: Sinus Rhythm, No Acute Injury Pattern, Non-Specific ST Changes - inf T flattening, - - nml axis - Medical Decision Making Patient has a leukocytosis, normal liver enzymes, and a CT that shows suspicion of acute cholecystitis. This was obtained because ultrasound was not available. However, when I discussed with surgery, she asked that I obtain an ultrasound, and we were calling the tech in for another patient who had hyperbilirubinemia, so we did obtain an ultrasound on this patient as well. It is showing pericholecystic fluid with positive sonographic Shelton's, consistent with acute cholecystitis with a normal common bile duct of 4 mm despite no cholelithiasis. Initially, morphine did not help much with his pain to he was given fentanyl, which helped a lot more. He is clinically stable and will be admitted for further treatment. Zosyn given. ED Disposition - Plan for ED Patient: Disposition: Acute Care Hospital [facility] Diagnosis: Acute cholecystitis Referrals: Wily Espinal MD [Primary Care Provider] -
[2018-12-14 23:34] LABS: Absolute Lymphocyte Count 0.63 X10^3/uL (0.83-4.51); Absolute Neutrophil Count 13.1 X10^3/uL (2.0-7.7); Basophil# 0.04 X10^3/uL; Basophil% 0.3 % (0-1); Eosinophil# 0.12 X10^3/uL; Eosinophils% 0.8 % (0-5); Hematocrit 31.7 % (40-54); Hemoglobin 10.5 g/dL (13.0-16.5); Lymphocyte # 0.63 X10^3/ul (4.0); Mean Corp Hgb Conc 33.1 g/dL (32-36); Mean Corpuscular Hgb 34.5 pg (27.0-32.0); Mean Corpuscular Volume 104.3 fL (80-94); Mean Platelet Vol. 10.4 fl (6.2-12.0); Monocyte# 1.56 X10^3/uL; Monocyte% 9.9 % (0-10); NRBC Flagged by Analyzer 0.1 % (0-5); Neutrophil # 13.09 X10^3/uL (2.7-7.7); Neutrophil % 82.8 % (47-70); POSITIVE DIFFERENTIAL YES; Platelet Count 176 K/mm3 (150-450); RBC Distribution Width CV 14.8 % (11.6-14.6); RBC Distribution Width SD 55.8 fl (35.1-43.9); Red Blood Count 3.04 M/mm3 (4.6-6.2); White Blood Count 15.8 K/mm3 (4.4-11.0)
[2018-12-14] MEDS: Morphine 4 MG/ML Syringe IV (23:35)
[2018-12-14] MEDS: 0.9% Normal Saline 1,000 ML 125 ML IV (23:35)
[2018-12-14 23:44] LABS: Bacteria 0 SEEN /hpf (None Seen); Mucous, Urine 0 SEEN /hpf (<or=2+); Squamous Epithelial Cells - UA 0 SEEN /hpf (0-5)
[2018-12-14 23:52] LABS: Color, Urine Yellow (Yellow); Glucose, Dipstick Normal (Normal); Ketone-Dipstick 5 mg/dl (Negative); Leukocyte Esterase-Dipstick 25 /ul (Negative); Nitrite-Dipstick Negative (Negative); Occult Blood-Urine 10 /ul (Negative); Protein-Dipstick 30 mg/dl (Negative); Urine Bilirubin Dipstick Negative (Negative); Urine Clarity Sl. Cloudy (Clear); Urine Urobilinogen 1 mg/dl (Normal)
[2018-12-14 23:53] LABS: Differential Indicated SCAN CRITERIA MET
[2018-12-14 23:55] LABS: AST(SGOT) 18 U/L (15-37); Alanine Aminotransfer ALT/SGPT 19 U/L (16-61); Albumin, Serum 3.5 g/dL (3.2-5.0); Alkaline Phosphatase 79 U/L (45-117); Anion Gap 6 (5-15); BUN 13 mg/dL (7-18); BUN/Creat Ratio 14.3 RATIO (10-20); Calcium,Total 8.7 mg/dL (8.5-10.1); Chloride 99 mmol/L (98-107); Creatinine, Serum 0.91 mg/dL (0.70-1.30); EST Glomerular Filtration Rate 86 mL/min (>60); Est Glom Filt Rate - Afr Amer 104 mL/min (>60); Estimated Creatinine Clearance 70.14 ml/min; Globulin 3.6 g/dL (2.2-4.2); Glucose 129 mg/dL (74-106); Lipase 126 U/L (73-393); Protein, Total 7.1 g/dL (6.4-8.2); Sodium Level 132 mmol/L (136-145)
--- NOTE | 2018-12-15 00:12 | EKG12_ITS ---
Test Reason : PAIN Blood Pressure : / mmHG Vent. Rate : 093 BPM Atrial Rate : 093 BPM P-R Int : 148 ms QRS Dur : 086 ms QT Int : 362 ms P-R-T Axes : 025 008 057 degrees QTc Int : 450 ms Normal sinus rhythm Inferior infarct , age undetermined , cannot be excluded Abnormal ECG Confirmed by LILIANA MALAVE, GERSON ([id number]), editor sound HUONG NOONAN ([id number]) on 12/16/2018 9:57:10 AM Referred By: Julisa Hobbs Confirmed By:GERSON FORD MD
[2018-12-15 00:30] LABS: Red Blood Cells-Urine 0-5 SEEN /hpf (0-5); White Blood Cells 0-5 SEEN /hpf (0-5)
--- NOTE | 2018-12-15 00:31 | US_ITS ---
STUDY: ABDOMINAL ULTRASOUND - RIGHT UPPER QUADRANT REASON FOR VISIT: Male, 77 years old right upper quadrant pain. TECHNIQUE: Ultrasound evaluation of the right upper quadrant was performed with real-time and static tellez-scale imaging. TECHNICAL QUALITY: Limited. Examination limited by bowel gas as well as heart distention of the patient's abdomen. COMPARISON: CT scan abdomen and pelvis 12/14/2018. FINDINGS: Liver: The liver measures 14.8 cm. There is normal echogenicity of the liver. The bile ducts are within normal limits. There is hepatic color flow. The direction of portal flow is hepatopetal. There is no demonstrated mass lesion. Gallbladder: Dilated gallbladder with short axis diameter 5.5 cm. The gallbladder wall measures 4.4 mm. There is a positive sonographic Shelton's sign, according to the tomography technologist notes. There is pericholecystic fluid. There are no gallstones. There is sludge in the gallbladder. Common Bile Duct (C.B.D.): The common bile duct measures 4.0 mm. Pancreas: Normal size of the head, body and tail of the pancreas. There is normal echogenicity of the pancreas. There is no demonstrated pancreatic mass or cyst. Right Kidney: Normal size of the right kidney. The right kidney measures 11.3 x 6.8 x 5.6 cm. Normal renal cortex. The right cortex measures 1.3 cm. There is no demonstrated renal mass or cyst. There is no right hydronephrosis. US/Gallbladder IMPRESSION: Dilated thick-walled gallbladder containing sludge, with pericholecystic fluid, and a reportedly positive sonographic Shelton's sign. No gallstones are seen, however, findings are still suspicious for acute cholecystitis. No bile duct dilatation. Electronically Signed: Jose De La Garza MD at 1:13 EDT , Service support ,
[2018-12-15 00:42] LABS: Macrocytosis 1+
[2018-12-15] MEDS: fentaNYL 100 MCG/2 ML Ampul 50 MCG IV ×2 (00:48→02:12)
[2018-12-15 01:01] VITALS: BP 148/87; PULSE 100; RESP 18; O2SAT 97
[2018-12-15 01:08] VITALS: BP 145/83; PULSE 90; RESP 16; TEMP 36.7; O2SAT 97
--- NOTE | 2018-12-15 01:17 | ED.RN ---
PER DR GOMEZ PT IS NOT SEPTIC.
[2018-12-15 02:22] VITALS: BP 152/90; PULSE 79; RESP 18; O2SAT 95
[2018-12-15] MEDS: HYDROmorphone 0.5 MG/0.5 ML SYRINGE IV ×4 (03:48→07:48)
[2018-12-15 04:04] VITALS: BMI 27.7
[2018-12-15 04:25] VITALS: BP 153/90; PULSE 108; RESP 20; TEMP 37.7; O2SAT 96
[2018-12-15] MEDS: 0.9% Normal Saline 1,000 ML 125 ML IV (04:44)
[2018-12-15 05:24] LABS: Absolute Lymphocyte Count 0.31 X10^3/uL (0.83-4.51); Absolute Neutrophil Count 22.8 X10^3/uL (2.0-7.7); Basophil# 0.03 X10^3/uL; Basophil% 0.1 % (0-1); Hemoglobin 10.4 g/dL (13.0-16.5); Lymphocyte # 0.31 X10^3/ul (4.0); Lymphocyte % 1.3 % (19-41); Mean Corp Hgb Conc 33.5 g/dL (32-36); Mean Corpuscular Hgb 35.3 pg (27.0-32.0); Mean Corpuscular Volume 105.1 fL (80-94); Monocyte% 6.1 % (0-10); NRBC Flagged by Analyzer 0.1 % (0-5); Neutrophil # 22.81 X10^3/uL (2.7-7.7); POSITIVE DIFFERENTIAL YES; Platelet Count 166 K/mm3 (150-450); RBC Distribution Width CV 14.9 % (11.6-14.6); RBC Distribution Width SD 57.9 fl (35.1-43.9); Red Blood Count 2.95 M/mm3 (4.6-6.2); White Blood Count 24.8 K/mm3 (4.4-11.0)
[2018-12-15 05:46] LABS: AST(SGOT) 19 U/L (15-37); Alanine Aminotransfer ALT/SGPT 20 U/L (16-61); Albumin, Serum 3.3 g/dL (3.2-5.0); Alkaline Phosphatase 72 U/L (45-117); Anion Gap 9 (5-15); BUN 10 mg/dL (7-18); BUN/Creat Ratio 13.2 RATIO (10-20); Bilirubin, Direct 0.41 mg/dL (0.00-0.30); Calcium,Total 8.4 mg/dL (8.5-10.1); Chloride 99 mmol/L (98-107); Creatinine, Serum 0.76 mg/dL (0.70-1.30); EST Glomerular Filtration Rate 106 mL/min (>60); Est Glom Filt Rate - Afr Amer 128 mL/min (>60); Estimated Creatinine Clearance 63.83 ml/min; Globulin 3.8 g/dL (2.2-4.2); Glucose 138 mg/dL (74-106); Potassium 3.9 mmol/L (3.5-5.1); Protein, Total 7.1 g/dL (6.4-8.2); Sodium Level 131 mmol/L (136-145)
[2018-12-15 06:00] LABS: Differential Indicated SCAN CRITERIA MET
--- NOTE | 2018-12-15 06:21 | PCM.HP.STD ---
History of Present Illness Date of Admission: 12/15/18 The patient is a 77 year old M presented to the ER due to abdominal pain which worsened on Sunday. 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) BELLO to LAD, SVG to RCA, SVG to OM1 07/24/18 Medical History: Medical History (Last Updated 12/09/18 @ 10:36 by María Elena Nolt) Atherosclerosis of coronary artery of [place] heart without angina pectoris (Chronic) I25.10 Delcid's esophagus K22.70 DDD (degenerative disc disease), lumbar M51.36 GERD (gastroesophageal reflux disease) K21.9 Hiatal hernia K44.9 Hypothyroidism E03.9 Allergies cefdinir [From Omnicef] Allergy (Intermediate, Verified 12/14/18 23:02) Diarrhea atorvastatin Adverse Reaction (Intermediate, Verified 12/14/18 23:02) myalgias azithromycin [From Zithromax] Adverse Reaction (Verified 12/14/18 23:02) Nausea/Vom/Diarrhea Home Medications: Ambulatory Orders Medication Instructions Recorded acetaminophen 325 mg tablet 650 mg PO Q4H PRN tab 12/09/18 aspirin 81 mg tablet,delayed 81 mg PO DAILY 12/09/18 release clopidogrel 75 mg tablet 75 mg PO DAILY 12/09/18 levothyroxine 200 mcg tablet 200 mcg PO DAILY 12/09/18 lisinopril 10 mg tablet 10 mg PO DAILY 12/09/18 magnesium 400 mg (as magnesium 400 mg PO DAILY 12/09/18 oxide) capsule metoprolol succinate ER 25 mg 75 mg PO BID tab 12/09/18 tablet,extended release 24 hr multivitamin tablet 1 tab PO QAM 12/09/18 pantoprazole 40 mg tablet,delayed 40 mg PO BID tab 12/09/18 release sennosides 8.6 mg-docusate sodium 1 tab PO QHS 12/09/18 50 mg tablet simvastatin 80 mg tablet 80 mg PO QHS 12/09/18 Surgical History: Surgical History (Last Updated 12/09/18 @ 10:36 by María Elena Wallis) History of coronary artery bypass graft (Chronic) Onset Date: 07/24/18 Z95.1 BELLO to LAD, SVG to RCA, SVG to OM1 07/24/18 History of back surgery Onset Date: ~04/25/17 Z98.890 History of appendectomy Z90.49 Surgical History: coronary bypass surgery Lives: Spouse/ Significant Other Smoking Status: Former smoker Alcohol: None - *Family History Maternal Family History: Family History (Last Updated 12/09/18 @ 10:38 by María Elena Wallis) Mother Emphysema of lung Father Emphysema of lung History Items: No pertinent history Review of Systems Constitutional: Reports: Anorexia. Denies: Fever Eyes: Denies: Blurred vision HEENT: Denies: Difficulty Swallowing Cardiovascular: Denies: Chest Pain Respiratory: Denies: Shortness of Breath Gastrointestinal: Reports: Abdominal Pain. Denies: Constipation, Nausea, Vomiting VTE Information - Inpt Only VTE Present on Admission: Yes VTE Mechan Device Prophylaxis: SCD's Reason prophylaxis not ordered:: Medical Contraindication - procedure/surgery Patient Problems: Active and Suspected Problems (Last Updated 12/09/18 @ 10:36 by María Elena Wallis) Acute cholecystitis (Acute) - Physical Exam Vitals/I&O's: Vital Signs Temp Pulse Resp BP Pulse Ox 99.8 F H 108 H 20 H 153/90 H 96 12/15/18 04:25 12/15/18 04:25 12/15/18 04:25 12/15/18 04:25 12/15/18 04:25 Oxygen Delivery Method Room Air Weight: 187 lb 13.341 oz Body Mass Index (BMI) 27.7 Intake and Output for Last 24 Hours 12/13/18 12/14/18 12/15/18 23:59 23:59 22:59 Intake Total 1160 / 1160 Balance 1160 / 1160 General: Alert, Oriented x3, Cooperative HEENT: Atraumatic Neck: Supple Lungs: Normal air movement Cardiovascular: Regular rate Abdomen: Soft, Distended, Tender - diffuse ttp, no PS Extremities: No clubbing, No cyanosis, No edema Neurological: Cranial nerves II-XII grossly intact Psych/Mental Status: Normal Affect Laboratory Results 12/14/18 23:15: WBC 15.8 H, RBC 3.04 L, Hgb 10.5 L, Hct 31.7 L, MCV 104.3 H, MCH 34.5 H, MCHC 33.1, RDW Std Deviation 55.8 H, RDW Coeff of Abena 14.8 H, Plt Count 176, MPV 10.4, Immature Gran % (Auto) 2.200 H, Neut % (Auto) 82.8 H, Lymph % (Auto) 4.0 L, [place] % (Auto) 9.9, Eos % (Auto) 0.8, Baso % (Auto) 0.3, Absolute Neuts (auto) 13.1 H, Absolute Lymphs (auto) 0.63 L, Nucleated RBC % 0.1, Differential Comment , Diff Path Review May , Macrocytosis 1+ 12/14/18 23:15: Sodium 132 L, Potassium 4.0, Chloride 99, Carbon Dioxide 27.0, Anion Gap 6, BUN 13, Creatinine 0.91, Estim Creat Clear Calc 70.14, Est GFR (MDRD) Af Amer 104, Est GFR (MDRD) Non-Af 86, BUN/Creatinine Ratio 14.3, Glucose 129 H, Calcium 8.7, Total Bilirubin 0.80, AST 18, ALT 19, Alkaline Phosphatase 79, Total Protein 7.1, Albumin 3.5, Globulin 3.6, Albumin/Globulin Ratio 1.0, Lipase 126 12/14/18 23:15: Troponin I < 0.015 12/14/18 23:40: Urine Color Yellow, Urine Clarity Sl. Cloudy, Urine pH 7.0, Ur Specific [place] 1.010, Urine Protein 30 H, Urine Glucose (UA) Normal, Urine Ketones 5 H, Urine Occult Blood 10 H, Urine Nitrite Negative, Urine Bilirubin Negative, Urine Urobilinogen 1 H, Ur Leukocyte Esterase 25 H, Urine RBC 0-5 SEEN, Urine WBC 0-5 SEEN, Ur Squamous Epith Cells 0 SEEN, Urine Bacteria 0 SEEN, Urine Mucus 0 SEEN 12/15/18 04:48: Sodium 131 L, Potassium 3.9, Chloride 99, Carbon Dioxide 23.0, Anion Gap 9, BUN 10, Creatinine 0.76, Estim Creat Clear Calc 63.83, Est GFR (MDRD) Af Amer 128, Est GFR (MDRD) Non-Af 106, BUN/Creatinine Ratio 13.2, Glucose 138 H, Calcium 8.4 L, Total Bilirubin 1.30 H, Direct Bilirubin 0.41 H, AST 19, ALT 20, Alkaline Phosphatase 72, Total Protein 7.1, Albumin 3.3, Globulin 3.8 12/15/18 04:48: WBC 24.8 H, RBC 2.95 L, Hgb 10.4 L, Hct 31.0 L, MCV 105.1 H, MCH 35.3 H, MCHC 33.5, RDW Std Deviation 57.9 H, RDW Coeff of [place]ena 14.9 H, Plt Count 166, MPV 10.0, Immature Gran % (Auto) 0.500, Neut % (Auto) 92.0 H, Lymph % (Auto) 1.3 L, [place] % (Auto) 6.1, Eos % (Auto) 0.0, Baso % (Auto) 0.1, Absolute Neuts (auto) 22.8 H, Absolute Lymphs (auto) 0.31 L, Nucleated RBC % 0.1 12/15/18 04:48: TSH Pending Current Medications Hydromorphone HCl (Dilaudid Inj) 0.5 - 1 mg IV Q2H PRN PRN PRN Reason: Pain Score 1-10/10 Sodium Chloride () 1,000 mls @ 125 mls/hr IV .Q8H [facility] Last Admin: 12/15/18 04:44 Dose: 125 mls/hr Documented by: Piperacillin Sod/Tazobactam (Sod 3.375 gm/ Sodium Chloride) 50 mls @ 12.5 mls/hr IV Q8 [facility] Last Admin: 12/15/18 05:06 Dose: 12.5 mls/hr Documented by: Pantoprazole Sodium 40 mg/ (Sodium Chloride) 110 mls @ 330 mls/hr IV Q24 [facility] Last Infusion: 12/15/18 05:05 Dose: Infused Documented by: Sodium Chloride () 250 mls @ 15 mls/hr IV .[id number] PRN PRN Reason: Saline Flush Levothyroxine Sodium (Synthroid) 200 mcg PO DAILY@0600 [facility] Last Admin: 12/15/18 05:00 Dose: Not Given Documented by: Lisinopril (Zestril) 10 mg PO DAILY [facility] Metoprolol Succinate (Toprol Xl (Beta Kali)) 75 mg PO BID [facility] Nutritional Formula (Lactose Free) (Ensure Clear) 120 ml PO 4X/DAY [facility] Ondansetron HCl (Zofran) 4 mg IV Q8H PRN PRN PRN Reason: NAUSEA Sodium Chloride () 10 - 40 ml IV UD PRN PRN Reason: SALINE FLUSH Assessment/Plan All Active Problems (Last Updated 12/09/18 @ 10:36 by María Elena Wallis) Acute cholecystitis (Acute) 77-year-old male with acute cholecystitis with sludge in the gallbladder, white blood cell of 24, recent CABG July 2018 at [facility] on aspirin Plavix 1. Patient states he takes aspirin Plavix multiple times a day recommend transfer to a tertiary care facility for cholecystectomy or cholecystostomy tube due to recent CABG; however one is not available here and his white blood count did go up from 15-24 this morning. Discussed with patient plan of transfer he was agreeable we will plan to transfer to [facility]. Patient has been accepted by Dr. Lu at [facility] CC. Julisa Hobbs M.D. Pager: [phone] [facility] [address] [place] [address], [facility], [address] [place] [address] Office: [phone]
[2018-12-15 06:57] LABS: Thyroid Stim Hormone (TSH) 0.38 uIU/mL (0.358-3.74)
--- NOTE | 2018-12-15 07:15 | DS.PCM_ITS ---
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 There are no visualized calcified gallstones. Ultrasound with have greater sensitivity for noncalcified gallstones. No demonstrated bile duct dilatation. Large hiatal hernia. Atherosclerosis. 3.5 cm left renal cyst contains a mural calcification. Would suggest follow-up renal ultrasound. No demonstrated urinary calculi or hydronephrosis. No evidence for appendicitis or diverticulitis. Electronically Signed: Jose De La Garza MD at 0:08 EDT , Service support , Gallbladder Ultrasound 12/15/18 00:31 IMPRESSION: Dilated thick-walled gallbladder containing sludge, with pericholecystic fluid, and a reportedly positive sonographic Shelton's sign. No gallstones are seen, however, findings are still suspicious for acute cholecystitis. No bile duct dilatation. Electronically Signed: Jose De La Garza MD at 1:13 EDT , Service support , Operations: None Procedures: None Summary of Care Provided: The patient is a 77 year old M admitted due to abdominal pain, denies any nausea or vomiting, patient's abdominal pain started on but got a lot worse on Sunday, pain is pretty diffuse across his abdomen. CT abdomen pelvis and ultrasound was consistent with acute cholecystitis with sludge in the gallbladder and pericholecystic fluid. Patient also had a recent three-vessel CABG in July 2018 at [facility] and takes aspirin Plavix twice daily per patient. Patient's white blood count is 15 up to 24 this morning. Recommend cholecystostomy tube however radiology is not available on the weekends. Discussed with Dr. Lu at [facility] he was agreeable with transfer and patient was also agreeable to transfer. Patient Problems: Active and Suspected Problems (Last Updated 12/09/18 @ 10:36 by María Elena Wallis) Acute cholecystitis (Acute) - Physical Exam Vitals/I&O's: Vital Signs Temp Pulse Resp BP Pulse Ox 99.8 F H 108 H 20 H 153/90 H 96 12/15/18 04:25 12/15/18 04:25 12/15/18 04:25 12/15/18 04:25 12/15/18 04:25 Oxygen Delivery Method Room Air Weight: 187 lb 13.341 oz Body Mass Index (BMI) 27.7 Intake and Output for Last 24 Hours 12/13/18 12/14/18 12/15/18 23:59 23:59 22:59 Intake Total 1160 / 1160 Balance 1160 / 1160 General: Alert, Oriented x3, Cooperative HEENT: Atraumatic Lungs: Clear to auscultation Cardiovascular: Regular rate Abdomen: Soft, Distended, Tender - diffuse, no PS Extremities: No edema Neurological: Cranial nerves II-XII grossly intact Psych/Mental Status: Normal Affect Laboratory Results 12/14/18 23:15: WBC 15.8 H, RBC 3.04 L, Hgb 10.5 L, Hct 31.7 L, MCV 104.3 H, MCH 34.5 H, MCHC 33.1, RDW Std Deviation 55.8 H, RDW Coeff of Abena 14.8 H, Plt Count 176, MPV 10.4, Immature Gran % (Auto) 2.200 H, Neut % (Auto) 82.8 H, Lymph % (Auto) 4.0 L, [place] % (Auto) 9.9, Eos % (Auto) 0.8, Baso % (Auto) 0.3, Absolute Neuts (auto) 13.1 H, Absolute Lymphs (auto) 0.63 L, Nucleated RBC % 0.1, Differential Comment , Diff Path Review May foll, Macrocytosis 1+ 12/14/18 23:15: Sodium 132 L, Potassium 4.0, Chloride 99, Carbon Dioxide 27.0, Anion Gap 6, BUN 13, Creatinine 0.91, Estim Creat Clear Calc 70.14, Est GFR (MDRD) Af Amer 104, Est GFR (MDRD) Non-Af 86, BUN/Creatinine Ratio 14.3, Glucose 129 H, Calcium 8.7, Total Bilirubin 0.80, AST 18, ALT 19, Alkaline Phosphatase 79, Total Protein 7.1, Albumin 3.5, Globulin 3.6, Albumin/Globulin Ratio 1.0, Lipase 126 12/14/18 23:15: Troponin I < 0.015 12/14/18 23:40: Urine Color Yellow, Urine Clarity Sl. Cloudy, Urine pH 7.0, Ur Specific [place] 1.010, Urine Protein 30 H, Urine Glucose (UA) Normal, Urine Ketones 5 H, Urine Occult Blood 10 H, Urine Nitrite Negative, Urine Bilirubin Negative, Urine Urobilinogen 1 H, Ur Leukocyte Esterase 25 H, Urine RBC 0-5 SEEN, Urine WBC 0-5 SEEN, Ur Squamous Epith Cells 0 SEEN, Urine Bacteria 0 SEEN, Urine Mucus 0 SEEN 12/15/18 04:48: Sodium 131 L, Potassium 3.9, Chloride 99, Carbon Dioxide 23.0, Anion Gap 9, BUN 10, Creatinine 0.76, Estim Creat Clear Calc 63.83, Est GFR (MDRD) Af Amer 128, Est GFR (MDRD) Non-Af 106, BUN/Creatinine Ratio 13.2, Glucose 138 H, Calcium 8.4 L, Total Bilirubin 1.30 H, Direct Bilirubin 0.41 H, AST 19, ALT 20, Alkaline Phosphatase 72, Total Protein 7.1, Albumin 3.3, Globulin 3.8 12/15/18 04:48: WBC 24.8 H, RBC 2.95 L, Hgb 10.4 L, Hct 31.0 L, MCV 105.1 H, MCH 35.3 H, MCHC 33.5, RDW Std Deviation 57.9 H, RDW Coeff of Abena 14.9 H, Plt Count 166, MPV 10.0, Immature Gran % (Auto) 0.500, Neut % (Auto) 92.0 H, Lymph % (Auto) 1.3 L, [place] % (Auto) 6.1, Eos % (Auto) 0.0, Baso % (Auto) 0.1, Absolute Neuts (auto) 22.8 H, Absolute Lymphs (auto) 0.31 L, Nucleated RBC % 0.1, Differential Comment 12/15/18 04:48: TSH 0.38 Current Medications Hydromorphone HCl (Dilaudid Inj) 0.5 - 1 mg IV Q2H PRN PRN PRN Reason: Pain Score 1-10/10 Sodium Chloride () 1,000 mls @ 125 mls/hr IV .Q8H [facility] Last Admin: 12/15/18 04:44 Dose: 125 mls/hr Documented by: Piperacillin Sod/Tazobactam (Sod 3.375 gm/ Sodium Chloride) 50 mls @ 12.5 mls/hr IV Q8 [facility] Last Admin: 12/15/18 05:06 Dose: 12.5 mls/hr Documented by: Pantoprazole Sodium 40 mg/ (Sodium Chloride) 110 mls @ 330 mls/hr IV Q24 [facility] Last Infusion: 12/15/18 05:05 Dose: Infused Documented by: Sodium Chloride () 250 mls @ 15 mls/hr IV .[id number] PRN PRN Reason: Saline Flush Levothyroxine Sodium (Synthroid) 200 mcg PO DAILY@0600 [facility] Last Admin: 12/15/18 05:00 Dose: Not Given Documented by: Lisinopril (Zestril) 10 mg PO DAILY [facility] Metoprolol Succinate (Toprol Xl (Beta Kali)) 75 mg PO BID [facility] Nutritional Formula (Lactose Free) (Ensure Clear) 120 ml PO 4X/DAY [facility] Ondansetron HCl (Zofran) 4 mg IV Q8H PRN PRN PRN Reason: NAUSEA Sodium Chloride () 10 - 40 ml IV UD PRN PRN Reason: SALINE FLUSH Discharge Diet: - - npo Home Medications: Medications to take at Discharge acetaminophen 325 mg tablet 650 mg PO Q4H PRN tab 12/09/18 aspirin 81 mg tablet,delayed release 81 mg PO DAILY 12/09/18 clopidogrel 75 mg tablet 75 mg PO DAILY 12/09/18 levothyroxine 200 mcg tablet 200 mcg PO DAILY 12/09/18 lisinopril 10 mg tablet 10 mg PO DAILY 12/09/18 magnesium 400 mg (as magnesium oxide) capsule 400 mg PO DAILY 12/09/18 metoprolol succinate ER 25 mg tablet,extended release 24 hr 75 mg PO BID tab 12/09/18 multivitamin tablet 1 tab PO QAM 12/09/18 pantoprazole 40 mg tablet,delayed release 40 mg PO BID tab 12/09/18 sennosides 8.6 mg-docusate sodium 50 mg tablet 1 tab PO QHS 12/09/18 simvastatin 80 mg tablet 80 mg PO QHS 12/09/18 Primary Care Physician: Wily Espinal MD [Primary Care Provider] - Disposition: Acute care Hospital Medical Necessity - Tobacco Use Smoking Status: Former smoker Meaningful Use Info Meaningful Use Diagnoses (Choose all that apply): None applicable
[2018-12-15] MEDS: 0.9% Saline Lock 10 ML Syringe IV (07:48)
[2018-12-15] MEDS: Ondansetron 4 MG/2 ML Vial IV (07:48)
[2018-12-15 07:50] VITALS: BP 151/90; PULSE 125; RESP 24; TEMP 37.7; O2SAT 91
--- NOTE | 2018-12-15 08:00 | NURSING ---
Mack Rn from [facility] called and this nurse gave report to nurse. Transport is here and getting ready to take pt and Mack was informed. Patient states he called his and she is aware of transfer but not of the time.
--- NOTE | 2018-12-15 08:06 | NURSING ---
Pt left with IV site to RT ac maintained and IVF of Zosyn 12.5ml/hr funning on our IVAc pump with NS as primary. Transport aware of IVAC needing to come back to our floor
--- NOTE | 2018-12-15 08:31 | NURSING ---
Pt had 200cc emesis and complained of pain, greater than a 6/10 as squad was preparing to transport-zofran and dilaudid given prior to transport. [facility] transport notified of meds given.
[2018-12-16 12:04] LABS: Pathologist Review Reviewed
== END 2018-12-15 08:01 | disposition short-term general hospital (02) ==
LOC: ED 12-15 01:40 → MS3 12-15 03:27
PROVIDERS: Anesthesiology; Admitting Provider Surgery; Emergency Provider Emergency Medicine; Family Provider Family Medicine; PCP Family Medicine; Referring Provider Surgery; Visit Provider Surgery
DX: K81.0 Acute cholecystitis (principal); I25.10 Atherosclerotic heart disease of native coronary artery without angina pectoris; K21.9 Gastro-esophageal reflux disease without esophagitis; E03.9 Hypothyroidism, unspecified; K44.9 Diaphragmatic hernia without obstruction or gangrene; M51.36 Other intervertebral disc degeneration, lumbar region; K22.70 Barrett's esophagus without dysplasia; Z95.1 Presence of aortocoronary bypass graft; Z79.899 Other long term (current) drug therapy; Z79.82 Long term (current) use of aspirin; Z79.02 Long term (current) use of antithrombotics/antiplatelets; Z87.891 Personal history of nicotine dependence
CPT/HCPCS: 36415; 74176; 76705; 80048; 80053; 80076; 81001; 83690; 84443; 84484; 85025; 93005; 96365; 96366; 96367; 96375; 96376; 99285; J7030; A4216; J2405

== ENCOUNTER 2018-12-24 06:22 | Outpatient (RCR) | payer SELFPAY ==
[2018-09-10 13:05] VITALS: BMI 28.7
[2018-12-15 04:04] VITALS: BMI 27.7
== END 2019-01-11 23:59 ==
LOC: CR 06:22
PROVIDERS: Family Provider Family Medicine; PCP Family Medicine; Referring Provider Family Medicine; Visit Provider Family Medicine
DX: I25.10 Atherosclerotic heart disease of native coronary artery without angina pectoris (principal); Z95.1 Presence of aortocoronary bypass graft

== ENCOUNTER 2019-02-11 06:00 | Outpatient (RCR) | payer SELFPAY ==
[2018-12-15 04:04] VITALS: BMI 27.7
== END 2019-02-11 23:59 ==
LOC: CR 06:00
PROVIDERS: Family Provider Family Medicine; PCP Family Medicine; Referring Provider Family Medicine; Visit Provider Family Medicine
DX: Z00.00 Encounter for general adult medical examination without abnormal findings (principal)

== ENCOUNTER 2019-03-13 06:00 | Outpatient (RCR) | payer SELFPAY ==
[2018-12-15 04:04] VITALS: BMI 27.7
== END 2019-03-14 23:59 ==
LOC: CR 06:00
PROVIDERS: Family Provider Family Medicine; PCP Family Medicine; Referring Provider Family Medicine; Visit Provider Family Medicine
DX: Z00.00 Encounter for general adult medical examination without abnormal findings (principal)

== ENCOUNTER 2019-04-10 06:00 | Outpatient (RCR) | payer SELFPAY ==
[2018-12-15 04:04] VITALS: BMI 27.7
== END 2019-04-12 23:59 ==
LOC: CR 06:00
PROVIDERS: Family Provider Family Medicine; PCP Family Medicine; Referring Provider Family Medicine; Visit Provider Family Medicine
DX: Z00.00 Encounter for general adult medical examination without abnormal findings (principal)

== ENCOUNTER 2019-04-24 06:00 | Outpatient (RCR) | payer SELFPAY ==
[2018-12-15 04:04] VITALS: BMI 27.7
== END 2019-05-13 23:59 ==
LOC: CR 06:00
PROVIDERS: Family Provider Family Medicine; PCP Family Medicine; Referring Provider Family Medicine; Visit Provider Family Medicine
DX: Z00.00 Encounter for general adult medical examination without abnormal findings (principal)

== ENCOUNTER 2019-07-10 06:00 | Outpatient (RCR) | payer SELFPAY ==
[2018-12-15 04:04] VITALS: BMI 27.7
== END 2019-07-13 23:59 ==
LOC: CR 06:00
PROVIDERS: Family Provider Family Medicine; PCP Family Medicine; Referring Provider Family Medicine; Visit Provider Family Medicine
DX: Z00.00 Encounter for general adult medical examination without abnormal findings (principal)

== ENCOUNTER 2019-12-11 08:00 | Outpatient (RCR) | payer SELFPAY ==
[2018-12-15 04:04] VITALS: BMI 27.7
== END 2019-12-13 23:59 ==
LOC: CR 08:00
PROVIDERS: PCP Family Medicine; Visit Provider Family Medicine
DX: Z00.00 Encounter for general adult medical examination without abnormal findings (principal)

== ENCOUNTER 2020-01-06 06:00 | Outpatient (RCR) | payer SELFPAY ==
[2018-12-15 04:04] VITALS: BMI 27.7
== END 2020-01-12 23:59 ==
LOC: CR 06:00
PROVIDERS: Family Provider Family Medicine; PCP Family Medicine; Referring Provider Family Medicine; Visit Provider Family Medicine
DX: Z00.00 Encounter for general adult medical examination without abnormal findings (principal)

== ENCOUNTER 2020-02-12 08:00 | Outpatient (RCR) | payer SELFPAY ==
[2018-12-15 04:04] VITALS: BMI 27.7
== END 2020-02-12 23:59 ==
LOC: CR 08:00
PROVIDERS: Family Provider Family Medicine; PCP Family Medicine; Referring Provider Family Medicine; Visit Provider Family Medicine
DX: Z00.00 Encounter for general adult medical examination without abnormal findings (principal)

== ENCOUNTER 2020-03-11 08:00 | Outpatient (RCR) | payer SELFPAY ==
[2018-12-15 04:04] VITALS: BMI 27.7
== END 2020-03-14 23:59 ==
LOC: CR 08:00
PROVIDERS: PCP Family Medicine; Visit Provider Family Medicine
DX: Z00.00 Encounter for general adult medical examination without abnormal findings (principal)

== ENCOUNTER 2020-04-06 08:00 | Outpatient (RCR) | payer SELFPAY ==
[2020-02-25 09:51] VITALS: BMI 27.6
== END 2020-04-11 23:59 ==
LOC: CR 08:00
PROVIDERS: PCP Family Medicine; Visit Provider Family Medicine
DX: Z00.00 Encounter for general adult medical examination without abnormal findings (principal)

== ENCOUNTER 2020-05-11 08:00 | Outpatient (RCR) | payer SELFPAY ==
[2020-02-25 09:51] VITALS: BMI 27.6
== END 2020-05-12 23:59 ==
LOC: CR 08:00
PROVIDERS: PCP Family Medicine; Visit Provider Family Medicine
DX: Z00.00 Encounter for general adult medical examination without abnormal findings (principal)

== ENCOUNTER 2020-06-10 08:00 | Outpatient (RCR) | payer SELFPAY ==
[2020-02-25 09:51] VITALS: BMI 27.6
== END 2020-06-11 23:59 ==
LOC: CR 08:00
PROVIDERS: PCP Family Medicine; Visit Provider Family Medicine
DX: Z00.00 Encounter for general adult medical examination without abnormal findings (principal)

== ENCOUNTER 2020-07-08 08:00 | Outpatient (RCR) | payer SELFPAY ==
[2020-02-25 09:51] VITALS: BMI 27.6
== END 2020-07-12 23:59 ==
LOC: CR 08:00
PROVIDERS: PCP Family Medicine; Visit Provider Family Medicine
DX: Z00.00 Encounter for general adult medical examination without abnormal findings (principal)

== ENCOUNTER 2020-11-18 08:00 | Outpatient (RCR) | payer SELFPAY ==
[2020-02-25 09:51] VITALS: BMI 27.6
== END 2020-12-12 23:59 ==
LOC: CR 08:00
PROVIDERS: PCP Family Medicine; Visit Provider Family Medicine
DX: Z00.00 Encounter for general adult medical examination without abnormal findings (principal)

== ENCOUNTER 2020-12-14 06:10 | Outpatient (RCR) | payer SELFPAY ==
[2020-12-13 00:03] VITALS: BMI 27.6
== END 2021-01-11 23:59 ==
LOC: CR 06:10
PROVIDERS: PCP Family Medicine; Referring Provider Family Medicine; Visit Provider Family Medicine
DX: Z00.00 Encounter for general adult medical examination without abnormal findings (principal)

== ENCOUNTER 2021-09-17 13:52 | Observation (INO) | payer MEDICARE, OTHER, SELFPAY ==
[2021-09-17] VITALS (10 sets, daily range): BP systolic 118–139; BP diastolic 70–80; PULSE 77–91; RESP 16–18; TEMP 36.7–36.9; O2SAT 96–99; BMI 30.4; BMI 27.9
--- NOTE | 2021-09-17 14:04 | EKG12_ITS ---
Test Reason : CP Blood Pressure : / mmHG Vent. Rate : 088 BPM Atrial Rate : 088 BPM P-R Int : 164 ms QRS Dur : 090 ms QT Int : 368 ms P-R-T Axes : 039 016 036 degrees QTc Int : 445 ms Normal sinus rhythm Normal ECG Confirmed by PABLO MALAVE, FARIHA ([id number]), electronic news gathering editor HUONG NOONAN ([id number]) on 09/19/2021 1:13:54 PM Referred By: SIRISHA/MARYAM Confirmed By:FARIHA SHAH MD
--- NOTE | 2021-09-17 14:04 | RAD_ITS ---
STUDY: X-RAY CHEST REASON FOR EXAM: Male, 80 years old. chest pain TECHNIQUE: XR Chest 1 View COMPARISON: 04/23/2014 FINDINGS: Multiple median sternotomy wires are noted consistent for cardiac surgery. There is an elevated right hemidiaphragm. Normal size heart. Normal mediastinum and shade. Normal visualized pulmonary arteries. There is atherosclerotic calcification of the aortic arch with tortuosity. There are diffuse degenerative changes of the visualized thoracic spine. There is degenerative osteoarthritis of the bilateral shoulders. There is a hiatal hernia. RAD/Chest 1 View (Portable) IMPRESSION: There are no acute findings. Electronically Signed: John Lay MD at 14:28 EDT ,
--- NOTE | 2021-09-17 14:05 | ED.VIS.CHEST ---
HPI History of Present Illness Chief Complaint: Chest Pain Detail of Chief Complaint: Chest pain x2 days Informant: patient Narrative Narrative: Patient presents to the emergency department with retrosternal chest pain that started 2 days ago. Pain has been intermittent. Prior to the chest pain he noticed intermittent numbness and tingling in the left arm. Patient states the numbness and tingling lasts about a minute or so. Patient states that chest pain is brought on by activity and exertion and gets better with rest. Patient took nitroglycerin yesterday seem to help his pain. Patient has a history of coronary artery disease with three-vessel CABG about 4 years ago. Patient denies recent travel or surgery. Patient did take a full dose aspirin this morning. Prior Similar Symptoms: No PFSH PFS Medical History (Updated 09/17/21 @ 15:[address] Susannah Rivera, ) Atherosclerosis of coronary artery of [place] heart without angina pectoris Delcid's esophagus DDD (degenerative disc disease), lumbar GERD (gastroesophageal reflux disease) Hiatal hernia Hypothyroidism Home Medications acetaminophen 325 mg tablet 650 mg PO Q4H PRN Pain Or Fever 12/09/18 [History Last Taken Unknown] aspirin 81 mg tablet,delayed release (Adult Aspirin Regimen) 81 mg PO DAILY 12/09/18 [History Last Taken Unknown] levothyroxine 200 mcg tablet 200 mcg PO DAILY 12/09/18 [History Last Taken Unknown] lisinopril 10 mg tablet 10 mg PO DAILY 12/09/18 [History Last Taken Unknown] magnesium oxide 400 mg PO DAILY 12/09/18 [History Last Taken Unknown] metoprolol succinate 25 mg tablet,extended release 24 hr 75 mg PO BID 12/09/18 [History Last Taken Unknown] multivitamin 1 tab PO QAM 12/09/18 [History Last Taken Unknown] pantoprazole 40 mg tablet,delayed release 40 mg PO BID 12/09/18 [History Last Taken Unknown] sennosides 8.6 mg-docusate sodium 50 mg tablet (Senna with Docusate Sodium) 1 tab PO QHS 12/09/18 [History Last Taken Unknown] simvastatin 80 mg tablet 80 mg PO QHS 12/09/18 [History Last Taken Unknown] fluticasone furoate 200 mcg-vilanterol 25 mcg/dose inhalation powder inhalation 02/25/20 [History Last Taken Unknown] terbinafine HCl 250 mg tablet ea PO 02/25/20 [History Last Taken Unknown] Allergy/AdvReac Type Severity Reaction Status Date / Time cefdinir [From Omnicef] Allergy Intermediate Diarrhea Verified 09/17/21 13:57 atorvastatin AdvReac Intermediate myalgias Verified 09/17/21 13:57 azithromycin [From Zithromax] AdvReac Nausea/Vom/ Verified 09/17/21 13:57 Diarrhea Family History (Updated 12/09/18 @ 10:38 by María Elena Wallis) Mother Emphysema of lung Father Emphysema of lung Surgical History History of appendectomy History of back surgery (~04/25/17) 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) Social History (Updated 02/25/20 @ 10:[address] Brennan Loaiza, DO) Smoking Status: Former smoker how long ago did patient quit smokin years ago alcohol intake: current alcohol intake frequency: a few times a week Alcohol type: beer substance use type: does not use ROS ROS ED Review of Systems ROS Unobtainable: other Constitutional Constitutional ED: Reports lethargy; Denies chills, fever(s), sweats or weight loss Eyes Eyes: Denies blurry vision, change in vision or diplopia ENT ENT ED: Denies rhinorrhea or sore throat Cardiovascular Cardiovascular: Reports chest pain; Denies orthopnea or racing heartbeat Respiratory/Chest Respiratory/Chest: Reports dyspnea; Denies cough, dyspnea on exertion, orthopnea or sputum Gastrointestinal Gastrointestinal: Denies abdominal pain, diarrhea, nausea or vomiting Genitourinary Genitourinary ED: Denies dysuria, hematuria or urinary frequency Musculoskeletal Musculoskeletal: Denies arthralgias, back pain, myalgias or neck pain Integumentary Denies abscess, Abrasions or rash Neurologic Neurologic: Denies headache(s) or weakness Psychiatric Psychiatric: Denies anxiety, depression or suicidal thoughts Endocrine Endocrinology: Denies polydipsia, polyphagia or polyuria Hematologic/Lymphatic Hematologic/Lymphatic: Denies easy bleeding, easy bruising or lymphadenopathy Allergic/Immunologic Allergic/Immunologic ED: Denies mouth swelling, tongue swelling or urticaria EXAM Physical Exam Const Vital Signs: 09/17/21 13:53 09/17/21 13:59 09/17/21 14:09 Temperature 98.4 F Temperature Source Oral Pulse Rate 91 Respiratory Rate 18 Blood Pressure 139/80 H Blood Pressure Mean 99 Pulse Ox 96 Oxygen Delivery Method Room Air Room Air 09/17/21 14:17 09/17/21 14:53 Temperature Temperature Source Pulse Rate 81 81 Respiratory Rate 17 Blood Pressure 118/70 127/71 H Blood Pressure Mean 89 Pulse Ox 98 Oxygen Delivery Method Room Air Positive well nourished and well developed General Appearance ED: well developed and NAD HEENT Reports TM's clear and moist mucous membranes normocephalic and atraumatic; Negative for trauma or tenderness Tympanic Membrane ED: Yes TM's clear Eyes PERRL and EOMs intact bilaterally General Eye ED: Negative for pale conjunctiva or scleral icterus Neck no lymphadenopathy, supple and no JVD General: Negative for tenderness Chest Wall inspection of chest normal and palpation of chest normal Chest: Negative for tenderness Resp normal respiratory effort and clear to auscultation bilaterally Effort and Inspection: Negative for respiratory distress or pain with movement Auscultation: Negative for rhonchi, wheezes or diminished lung sounds Cardio regular rate, regular rhythm, S1 normal heart sound, S2 normal heart sound and no murmurs Peripheral Pulses: pulses 2+ throughout GI normal to inspection, nondistended, normoactive bowel sounds, soft to palpation, non-tender, non-distended and no masses Back/Spine no CVA tenderness and no thoracic nor lumbar tenderness Extremity normal to inspection General Extremety ED: Negative for edema General Extremity: Negative for edema Neuro oriented x3, CN's II-XII intact bilaterally, no sensory deficits noted and gait normal Sensorium / Orientation: awake, alert, oriented to person, oriented to place and oriented to time Motor Exam: strength 5/5 throughout and strength abnormal Psych mental status grossly normal Skin no rashes or lesions noted and no wounds Heart Score History: Highly Suspicious ECG: Normal Age: >/= 65 years Risk Factors: >/= 3 Risk Factors or History of CAD Troponin: </= Normal Limit Score: 6 MDM MDM MDM Narrative Medical decision making narrative: IV line established on arrival. Patient had taken a full dose aspirin at home therefore none was given here. He had an inch of Nitropaste placed to the anterior chest wall. He EKG was unremarkable. Troponin was normal. Lab Data Attestation: I reviewed the patient's lab results. Labs: Laboratory Results - last 24 hr 09/17/21 09/17/21 14:10 14:10 WBC 7.6 RBC 3.60 L Hgb 11.0 L Hct 32.6 L MCV 90.6 MCH 30.6 MCHC 33.7 RDW Std Deviation 50.1 H RDW Coeff of Abena 15.2 H Plt Count 188 MPV 10.8 Immature Gran % (Auto) 0.500 Neut % (Auto) 78.8 H Lymph % (Auto) 7.7 L [place] % (Auto) 9.2 Eos % (Auto) 3.4 Baso % (Auto) 0.4 Absolute Neuts (auto) 6.0 Absolute Lymphs (auto) 0.58 L Nucleated RBC % 0 Differential Comment SCANNED Sodium 128 L Potassium 4.4 Chloride 97 L Carbon Dioxide 24.0 Anion Gap 7 BUN 14 Creatinine 0.93 Estim Creat Clear Calc 61.20 Est GFR (MDRD) Af Amer 101 Est GFR (MDRD) Non-Af 83 BUN/Creatinine Ratio 15.1 Glucose 123 H Calcium 8.5 Troponin I High Sens 5 Radiography Chest X-Ray - ED: 1 View Diagnostic Testing: Clinical Impression(s) from Imaging Studies Chest X-Ray 09/17/21 14:04 IMPRESSION: There are no acute findings. Electronically Signed: John Lay MD at 14:28 EDT Reading Location ID and State: [facility] / [place] , Service support , 1 view chest x-ray obtained interpreted by myself no acute disease process. Radiology in agreement. EKG Initial EKG: Attestation: I personally reviewed and interpreted this EKG as follows: Comments: Sinus rhythm with a ventricular rate of 88 bpm with no acute ST segment changes Discharge Plan Dx/Rx/DC Orders Clinical Impression: Unstable angina, Chest pain, History of coronary artery disease Disposition Disposition: Acute Care Hospital [facility]
[2021-09-17] MEDS: Nitroglycerin Oint 1 INCH PACKET TRANSDERM. (14:17)
[2021-09-17 14:27] LABS: Absolute Lymphocyte Count 0.58 X10^3/uL (0.83-4.51); Basophil# 0.03 X10^3/uL; Basophil% 0.4 % (0-1); Eosinophil# 0.26 X10^3/uL; Eosinophils% 3.4 % (0-5); Hematocrit 32.6 % (40-54); Lymphocyte # 0.58 X10^3/ul (0.83-4.51); Lymphocyte % 7.7 % (19-41); Mean Corp Hgb Conc 33.7 g/dL (32-36); Mean Corpuscular Hgb 30.6 pg (27.0-32.0); Mean Corpuscular Volume 90.6 fL (80-94); Mean Platelet Vol. 10.8 fl (6.2-12.0); Monocyte% 9.2 % (0-10); NRBC Flagged by Analyzer 0 % (0-5); Neutrophil # 5.97 X10^3/uL (2.7-7.7); Neutrophil % 78.8 % (47-70); POSITIVE DIFFERENTIAL YES; Platelet Count 188 K/mm3 (150-450); RBC Distribution Width CV 15.2 % (11.6-14.6); RBC Distribution Width SD 50.1 fl (35.1-43.9); White Blood Count 7.6 K/mm3 (4.4-11.0)
[2021-09-17] MEDS: 0.9% Normal Saline 1,000 ML 150 ML IV (14:27)
[2021-09-17 14:40] LABS: Anion Gap 7 (5-15); BUN 14 mg/dL (7-18); BUN/Creat Ratio 15.1 RATIO (10-20); Calcium,Total 8.5 mg/dL (8.5-10.1); Chloride 97 mmol/L (98-107); Creatinine, Serum 0.93 mg/dL (0.70-1.30); EST Glomerular Filtration Rate 83 mL/min (>60); Est Glom Filt Rate - Afr Amer 101 mL/min (>60); Glucose 123 mg/dL (74-106); Potassium 4.4 mmol/L (3.5-5.1); Sodium Level 128 mmol/L (136-145); Troponin-I HS (w/2H Reflex) 5 pg/mL (3.0-78.0)
[2021-09-17 14:55] LABS: Differential Indicated SCAN CRITERIA MET
[2021-09-17 14:56] LABS: Differential Comment SCANNED
--- NOTE | 2021-09-17 15:25 | PCM.HP.STD ---
HPI - General General Date of Admission: 09/17/21 Date of Service: 09/17/21 Chief Complaint: Atypical chest pain for last 3 days HPI Narrative JAYDEN TUCKER, is a 80 M with history of coronary artery disease, had triple-vessel CABG 4 years ago came to ER with chest pain that started about 3 days ago. Patient states he gets retrosternal chest pain feels like heaviness about 7/10 intensity with radiation to left arm to hand. He feels radiation of tingling sensation. Usable activities like walking or some exertion brings the pain and goes away at rest. Patient triple-vessel coronary artery disease was found at preop testing for hiatus hernia in [facility] but he never had operative treatment for hiatus hernia. Patient denies fever, chills, nausea, vomiting, GI bleed. Denies new onset dysuria or LUTS. Mild constipation on laxative. Patient had 2 doses of COVID vaccination and boosted twice. In ED, twelve-lead EKG individually reviewed, normal sinus rhythm 88 bpm. QTc [address]-T changes suggestive of ischemia. First high-sensitivity troponin negative. Chest x-ray initially reviewed shows no acute finding. Labs reviewed and discussed in assessment plan. Patient is further admitted. [facility] Medical History Atherosclerosis of coronary artery of [place] heart without angina pectoris Delcid's esophagus DDD (degenerative disc disease), lumbar GERD (gastroesophageal reflux disease) Hiatal hernia Hypothyroidism Home Medications acetaminophen 325 mg tablet 650 mg PO Q4H PRN Pain Or Fever 12/09/18 [History Last Taken Unknown] aspirin 81 mg tablet,delayed release (Adult Aspirin Regimen) 81 mg PO DAILY 12/09/18 [History Last Taken Unknown] levothyroxine 200 mcg tablet 200 mcg PO DAILY 12/09/18 [History Last Taken Unknown] lisinopril 10 mg tablet 10 mg PO DAILY 12/09/18 [History Last Taken Unknown] magnesium oxide 400 mg PO DAILY 12/09/18 [History Last Taken Unknown] metoprolol succinate 25 mg tablet,extended release 24 hr 75 mg PO BID 12/09/18 [History Last Taken Unknown] multivitamin 1 tab PO QAM 12/09/18 [History Last Taken Unknown] pantoprazole 40 mg tablet,delayed release 40 mg PO BID 12/09/18 [History Last Taken Unknown] sennosides 8.6 mg-docusate sodium 50 mg tablet (Senna with Docusate Sodium) 1 tab PO QHS 12/09/18 [History Last Taken Unknown] simvastatin 80 mg tablet 80 mg PO QHS 12/09/18 [History Last Taken Unknown] fluticasone furoate 200 mcg-vilanterol 25 mcg/dose inhalation powder inhalation 02/25/20 [History Last Taken Unknown] terbinafine HCl 250 mg tablet ea PO 02/25/20 [History Last Taken Unknown] Allergy/AdvReac Type Severity Reaction Status Date / Time cefdinir [From Omnicef] Allergy Intermediate Diarrhea Verified 09/17/21 13:57 atorvastatin AdvReac Intermediate myalgias Verified 09/17/21 13:57 azithromycin [From Zithromax] AdvReac Nausea/Vom/ Verified 09/17/21 13:57 Diarrhea Family History Mother Emphysema of lung Father Emphysema of lung Surgical History History of appendectomy History of back surgery (~04/25/17) 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) Social History Smoking Status: Former smoker how long ago did patient quit smokin years ago alcohol intake: current alcohol intake frequency: a few times a week Alcohol type: beer substance use type: does not use ROS ROS Narrative Constitutional: No fever. Denies fatigue and weakness HEENT: Chronic bilateral hearing loss. Reports systems reviewed and no addt'l complaints, except as documented Respiratory/Chest: As mentioned in HPI Gastrointestinal: History of Delcid's esophagus and hiatus hernia. Heartburn/acid reflux well controlled on PPI. Denies coffee ground emesis, hematemesis or vomiting Genitourinary: Denies burning urination or new urinary tract symptoms Musculoskeletal: Mild joint pain of knee joints. Neurologic: Denies seizure-like activity. No acute focal neurological symptoms skin: No ulcer. No rash Endocrinology: Reports systems reviewed and no addt'l complaints, except as documented Hematologic/Lymphatic: Reports systems reviewed and no addt'l complaints, except as documented Rest 14 ROS are negative except as mentioned in HPI Vital Signs Vital Signs Vital Signs: 09/17/21 13:53 09/17/21 13:59 09/17/21 14:09 Temperature 98.4 F Temperature Source Oral Pulse Rate 91 Respiratory Rate 18 Blood Pressure 139/80 H Blood Pressure Mean 99 Pulse Ox 96 Oxygen Delivery Method Room Air Room Air 09/17/21 14:17 09/17/21 14:53 Temperature Temperature Source Pulse Rate 81 81 Respiratory Rate 17 Blood Pressure 118/70 127/71 H Blood Pressure Mean 89 Pulse Ox 98 Oxygen Delivery Method Room Air Weight Weight: 194 lb 0.108 oz Body Mass Index (BMI) 30.4 Physical Exam Narrative General: Alert, Oriented x3, Cooperative HEENT: Chronic bilateral hearing loss probably sensorineural type. Atraumatic, PERRLA, EOMI, Normocephalic Oral: Oral mucosa moist. No Gingival or Mucosal Lesions/ Ulcerations Neck: Supple, No JVD, Negative Carotid Bruits Lungs: Air entry diminished in bilateral lung bases. No crepitation/rhonchi Cardiovascular: Sinus regular rhythm, Normal S1, Normal S2, No murmurs. CABG scar. Abdomen: Bowel Sounds Present, Soft, Non Tender, Non-Distended : No renal angle tenderness. No suprapubic tenderness. Extremities: No edema, Capillary Refill Less than 3 Seconds Skin: No rashes, No breakdown Musculoskeletal: ROM of major joints intact. No Tenderness to Palpation of Joints or Extremities Neurological: Cranial nerves II-XII grossly intact, DTR 2+/4, muscle strength 5/5 at major joints Psych/Mental Status: Normal Affect, Appropriate. Results Lab / Micro Data Result Diagrams: 09/17/21 14:10 09/17/21 14:10 Labs: Laboratory Results - last 24 hr 09/17/21 14:10: WBC 7.6, RBC 3.60 L, Hgb 11.0 L, Hct 32.6 L, MCV 90.6, MCH 30.6, MCHC 33.7, RDW Std Deviation 50.1 H, RDW Coeff of Abena 15.2 H, Plt Count 188, MPV 10.8, Immature Gran % (Auto) 0.500, Neut % (Auto) 78.8 H, Lymph % (Auto) 7.7 L, [place] % (Auto) 9.2, Eos % (Auto) 3.4, Baso % (Auto) 0.4, Absolute Neuts (auto) 6.0, Absolute Lymphs (auto) 0.58 L, Nucleated RBC % 0, Differential Comment SCANNED 09/17/21 14:10: Sodium 128 L, Potassium 4.4, Chloride 97 L, Carbon Dioxide 24.0, Anion Gap 7, BUN 14, Creatinine 0.93, Estim Creat Clear Calc 61.20, Est GFR (MDRD) Af Amer 101, Est GFR (MDRD) Non-Af 83, BUN/Creatinine Ratio 15.1, Glucose 123 H, Calcium 8.5, Troponin I High Sens 5 Radiology Impression Chest X-Ray 09/17/21 14:04 IMPRESSION: There are no acute findings. Electronically Signed: John Lay MD at 14:28 EDT , Assessment & Plan Assessment/Plan (1) Unstable angina: PLAN: This 72-year-old question gentleman admitted with intermittent frequent chest pain for last 3 days suggestive of unstable angina. 1. Atypical chest pain most probably unstable angina: Patient is being admitted in PCU. Patient LEVI risk score is 4 which projects about 4.2% mortality in 1 year. Serial troponin enzymes. Repeat EKG after 2 hours. If troponins are normal, myocardial nuclear perfusion stress test on Sunday AM. Patient is on beta-getachew, lisinopril, baby aspirin, simvastatin continued. Fasting profile and TSH tomorrow 2. Coronary artery status post CABG: As mentioned above. 3. GERD, Delcid's esophagus with history of hiatus hernia: His symptoms are well controlled on PPI pantoprazole twice daily 4. COPD/emphysema: Patient quit the smoking about 40 years ago. He started at the age of 20; a pack per day. Currently on fluticasone/vilanterol. Replaced with fluticasone/salmeterol twice daily and DuoNeb as needed. COPD/emphysema controlled 5. Hypertension and dyslipidemia: Home medications continued. Blood pressure in normal range. 6. Hypothyroidism: TSH tomorrow AM. On levothyroxine 200 mcg daily 7. Other comorbidities include bilateral hearing loss possible moderate sensorineural deafness, mild constipation: On senna S. Home medications reconciliation done. PT and OT ordered Living will/advanced directive/end of life care: Patient does have living will or advanced directive. His is power of health care attorney for health. After discussion of benefits/risks procedures involved with full code, DNR CC arrest and DNR CC, the patient and his opted for full code. Patient doesn't want artificial life support including intubation, tube feed, ventilator and/chest compression, central venous catheter, vasopressor and DC shock if needed Total time spent in [id number] encounter in discussion of advanced directive 16 minutes. . Clinical Impression(s) from Imaging Studies Chest X-Ray 09/17/21 14:04 IMPRESSION: There are no acute findings. Electronically Signed: John Lay MD at 14:28 EDT Reading Location ID and State: [facility] / [place] , Service support , Charges/Coding Visit Charges OBSV E&M: 53815 Initial observation care L3 Procedures Hospitalists Procedures: 15366 Advncd Care Plan 30 Min
[2021-09-17 15:56] LABS: Magnesium 2.1 mg/dL (1.6-2.6)
--- NOTE | 2021-09-17 16:05 | EKG12_ITS ---
Test Reason : cp admission Blood Pressure : / mmHG Vent. Rate : 076 BPM Atrial Rate : 076 BPM P-R Int : 166 ms QRS Dur : 088 ms QT Int : 396 ms P-R-T Axes : 018 -06 026 degrees QTc Int : 445 ms Normal sinus rhythm Normal ECG When compared with ECG of 17-SEP-2021 13:55, MANUAL COMPARISON REQUIRED, DATA IS UNCONFIRMED Confirmed by PABLO MALAVE, FARIHA ([id number]), avid editor SAUL GAO ([id number]) on 09/20/2021 9:45:43 AM Referred By: Amauri Confirmed By:FARIHA SHAH MD
[2021-09-17 16:18] LABS: Reflex Troponin-HS? (from REC) Y
[2021-09-17] MEDS: 0.9% Normal Saline 1,000 ML 75 ML IV (16:48)
[2021-09-17] MEDS: Aspirin E.C. 81 MG Tablet PO (16:51)
[2021-09-17] MEDS: Enoxaparin 40 MG/0.4 ML Syringe SC (16:51)
[2021-09-17 16:57] LABS: Troponin-I HS 4 pg/mL (3.0-78.0)
[2021-09-17 20:38] LABS: Troponin-I HS 5 pg/mL (3.0-78.0)
[2021-09-17] MEDS: Metoprolol(XL)Succ 25 MG Tablet 75 MG PO (21:29)
[2021-09-17] MEDS: Pantoprazole Sodium 40 MG Tablet PO (21:29)
[2021-09-17] MEDS: Simvastatin 20 MG Tablet 80 MG PO (21:30)
[2021-09-18] VITALS (14 sets, daily range): BP systolic 123–149; BP diastolic 72–88; PULSE 68–97; RESP 16–18; TEMP 36.4–36.9; O2SAT 96–99
[2021-09-18] MEDS: Acetaminophen 325 MG Tablet 650 MG PO (03:01)
[2021-09-18] MEDS: Levothyroxine 100 MCG Tablet 200 MCG PO (05:59)
[2021-09-18 06:15] LABS: Absolute Lymphocyte Count 0.41 X10^3/uL (0.83-4.51); Absolute Neutrophil Count 5.6 X10^3/uL (2.0-7.7); Basophil# 0.04 X10^3/uL; Basophil% 0.6 % (0-1); Eosinophil# 0.25 X10^3/uL; Eosinophils% 3.5 % (0-5); Hematocrit 31.7 % (40-54); Hemoglobin 10.5 g/dL (13.0-16.5); Lymphocyte # 0.41 X10^3/ul (0.83-4.51); Lymphocyte % 5.7 % (19-41); Mean Corp Hgb Conc 33.1 g/dL (32-36); Mean Corpuscular Hgb 30.2 pg (27.0-32.0); Mean Corpuscular Volume 91.1 fL (80-94); Mean Platelet Vol. 10.5 fl (6.2-12.0); Monocyte# 0.88 X10^3/uL; Monocyte% 12.3 % (0-10); NRBC Flagged by Analyzer 0 % (0-5); Neutrophil # 5.59 X10^3/uL (2.7-7.7); Neutrophil % 77.8 % (47-70); POSITIVE DIFFERENTIAL YES; Platelet Count 178 K/mm3 (150-450); RBC Distribution Width CV 15.6 % (11.6-14.6); RBC Distribution Width SD 51.3 fl (35.1-43.9); Red Blood Count 3.48 M/mm3 (4.6-6.2); White Blood Count 7.2 K/mm3 (4.4-11.0)
[2021-09-18 06:29] LABS: Differential Indicated SCAN CRITERIA MET
[2021-09-18 07:01] LABS: Anion Gap 4 (5-15); BUN 11 mg/dL (7-18); BUN/Creat Ratio 15.4 RATIO (10-20); Calcium,Total 8.5 mg/dL (8.5-10.1); Chloride 101 mmol/L (98-107); Cholesterol 120 mg/dL (200); Creatinine, Serum 0.72 mg/dL (0.70-1.30); EST Glomerular Filtration Rate 113 mL/min (>60); Est Glom Filt Rate - Afr Amer 136 mL/min (>60); Estimated Creatinine Clearance 60.88 ml/min; Glucose 99 mg/dL (74-106); High Density Lipoprotein 61 mg/dL; Potassium 4.5 mmol/L (3.5-5.1); Sodium Level 131 mmol/L (136-145); Thyroid Stim Hormone (TSH) 0.67 uIU/mL (0.358-3.74); Triglycerides 67 mg/dL; Very Low Density Lipoprotein 13 mg/dL (5-40)
[2021-09-18 07:16] LABS: Differential Comment SCANNED
--- NOTE | 2021-09-18 07:33 | PCM.PN.HOSP ---
Objective Data Objective Data Vital Signs: Vital Signs Temp Pulse Resp BP Pulse Ox O2 Del Method 97.8 F 81 18 149/88 H 98 Room Air 09/18/21 03:10 09/18/21 03:27 09/18/21 03:10 09/18/21 03:10 09/18/21 03:10 09/18/21 03:10 Oxygen Delivery Method Room Air Weight: 84.6 kg Body Mass Index (BMI) 27.9 Intake & Output: Intake and Output for Last 24 Hours 09/16/21 09/17/21 09/18/21 23:59 23:59 23:59 Intake Total 232.5 / 232.5 1000 / 1000 Balance 232.5 / 232.5 1000 / 1000 Lab / Micro Data Result Diagrams: 09/18/21 04:53 09/18/21 04:53 Labs: Laboratory Results - last 24 hr 09/17/21 14:10: WBC 7.6, RBC 3.60 L, Hgb 11.0 L, Hct 32.6 L, MCV 90.6, MCH 30.6, MCHC 33.7, RDW Std Deviation 50.1 H, RDW Coeff of Abena 15.2 H, Plt Count 188, MPV 10.8, Immature Gran % (Auto) 0.500, Neut % (Auto) 78.8 H, Lymph % (Auto) 7.7 L, [place] % (Auto) 9.2, Eos % (Auto) 3.4, Baso % (Auto) 0.4, Absolute Neuts (auto) 6.0, Absolute Lymphs (auto) 0.58 L, Nucleated RBC % 0, Differential Comment SCANNED 09/17/21 14:10: Sodium 128 L, Potassium 4.4, Chloride 97 L, Carbon Dioxide 24.0, Anion Gap 7, BUN 14, Creatinine 0.93, Estim Creat Clear Calc 61.20, Est GFR (MDRD) Af Amer 101, Est GFR (MDRD) Non-Af 83, BUN/Creatinine Ratio 15.1, Glucose 123 H, Calcium 8.5, Troponin I High Sens 5 09/17/21 14:10: Magnesium 2.1 09/17/21 16:30: Troponin I High Sens 4 09/17/21 20:00: Troponin I High Sens 5 09/18/21 04:53: WBC 7.2, RBC 3.48 L, Hgb 10.5 L, Hct 31.7 L, MCV 91.1, MCH 30.2, MCHC 33.1, RDW Std Deviation 51.3 H, RDW Coeff of Abena 15.6 H, Plt Count 178, MPV 10.5, Immature Gran % (Auto) 0.100, Neut % (Auto) 77.8 H, Lymph % (Auto) 5.7 L, [place] % (Auto) 12.3 H, Eos % (Auto) 3.5, Baso % (Auto) 0.6, Absolute Neuts (auto) 5.6, Absolute Lymphs (auto) 0.41 L, Nucleated RBC % 0, Differential Comment SCANNED 09/18/21 04:53: Sodium 131 L, Potassium 4.5, Chloride 101, Carbon Dioxide 26.0, Anion Gap 4 L, BUN 11, Creatinine 0.72, Estim Creat Clear Calc 60.88, Est GFR (MDRD) Af Amer 136, Est GFR (MDRD) Non-Af 113, BUN/Creatinine Ratio 15.4, Glucose 99, Calcium 8.5, Triglycerides 67, Cholesterol 120, LDL Cholesterol 46, VLDL Cholesterol 13, HDL Cholesterol 61, TSH 0.67 Radiography Diagnostic Testing: Radiology Impression Chest X-Ray 09/17/21 14:04 IMPRESSION: There are no acute findings. Electronically Signed: John Lay MD at 14:28 EDT Reading Location ID and State: [facility] / [place] , Service support , Physical Exam Narrative GENERAL: cooperative HEENT: Atraumatic; EYES; Anicteric, Normal Conjunctiva NECK; supple, normal thyroid, RESPIRATORY: Diminished to auscultation CARDIOVASCULAR: Regular S1 S2, GI: soft, normoactive bowel sounds, : No Renal angle tenderness; EXTREMITIES: No edema, no clubbing, MUSCULOSKELETAL: no muscle wasting NEURO: Awake; no lateralizing signs. SKIN: No Rash PSYCH; Flat affect Assessment & Plan Assessment/Plan (1) Unstable angina: PLAN: Patient is a 72-year-old gentleman with past medical history segment for coronary artery disease with previous CABG who presented with a 3-day history of chest pain 1. Chest pain ? Patient has been admitted to monitored bed NC ruled out with serial cardiac enzymes. Patient to undergo subsequent evaluation with nuclear stress test on 09/19/2021 3. Coronary artery disease ? With previous CABG 4. Hypertension - Blood pressure controlled, home medications continued with dose adjustment as needed 5. Dyslipidemia -Patient is on statin therapy, continued at home dose 6. GERD with Delcid's esophagus ? Patient is on PPI 7. Hypothyroidism - Patient is on levothyroxine home dose continued 8. COPD/emphysema: ? Currently not in exacerbation aerosol treatments as needed 9. DVT prophylaxis ? Enoxaparin Charges/Coding Visit Charges OBSV E&M: 49754 Subsequent observation care L2
[2021-09-18] MEDS: Enoxaparin 40 MG/0.4 ML Syringe SC (08:25)
[2021-09-18] MEDS: Lisinopril 10 MG Tablet PO (08:25)
[2021-09-18] MEDS: Metoprolol(XL)Succ 25 MG Tablet 75 MG PO ×2 (08:25→20:35)
[2021-09-18] MEDS: Aspirin E.C. 81 MG Tablet PO (08:26)
[2021-09-18] MEDS: Pantoprazole Sodium 40 MG Tablet PO ×2 (08:26→20:36)
[2021-09-18] MEDS: Fluticasone 0.05% 1 SPRAY NASAL.SRY NASAL ×2 (09:47→20:33)
[2021-09-18] MEDS: Hydrocortisone 2.5% Ointment 20 gm tube 1 APPLIC TOPICAL (12:25)
[2021-09-18] MEDS: Albuterol 2.5 MG/3 ML VIAL.NEB. INHALATION ×2 (13:51→21:02)
[2021-09-18] MEDS: Simvastatin 20 MG Tablet 80 MG PO (20:35)
[2021-09-18] MEDS: Budesonide Respules 0.5 MG/2 ML AMPUL.NEB. INHALATION (21:02)
[2021-09-19 03:00] VITALS: PULSE 85
[2021-09-19 04:05] VITALS: BP 120/76; PULSE 98; RESP 16; TEMP 36.4; O2SAT 98
[2021-09-19] MEDS: Acetaminophen 325 MG Tablet 650 MG PO (04:17)
--- NOTE | 2021-09-19 05:00 | EKG12_ITS ---
Test Reason : AM EKG Blood Pressure : / mmHG Vent. Rate : 073 BPM Atrial Rate : 073 BPM P-R Int : 176 ms QRS Dur : 092 ms QT Int : 402 ms P-R-T Axes : 031 004 038 degrees QTc Int : 442 ms Normal sinus rhythm Normal ECG When compared with ECG of 17-SEP-2021 16:10, MANUAL COMPARISON REQUIRED, DATA IS UNCONFIRMED Confirmed by PABLO MALAVE, FARIHA ([id number]), staff editor SAUL GAO ([id number]) on 09/20/2021 9:44:56 AM Referred By: Confirmed By:FARIHA SHAH MD
[2021-09-19 05:42] LABS: Absolute Lymphocyte Count 0.39 X10^3/uL (0.83-4.51); Absolute Neutrophil Count 5.5 X10^3/uL (2.0-7.7); Basophil# 0.04 X10^3/uL; Basophil% 0.6 % (0-1); Eosinophils% 4.2 % (0-5); Hematocrit 32.4 % (40-54); Hemoglobin 10.7 g/dL (13.0-16.5); Lymphocyte # 0.39 X10^3/ul (0.83-4.51); Lymphocyte % 5.5 % (19-41); Mean Corpuscular Hgb 29.8 pg (27.0-32.0); Mean Corpuscular Volume 90.3 fL (80-94); Mean Platelet Vol. 11.2 fl (6.2-12.0); Monocyte# 0.85 X10^3/uL; Monocyte% 11.9 % (0-10); NRBC Flagged by Analyzer 0 % (0-5); Neutrophil # 5.54 X10^3/uL (2.7-7.7); Neutrophil % 77.5 % (47-70); POSITIVE DIFFERENTIAL YES; Platelet Count 198 K/mm3 (150-450); RBC Distribution Width CV 15.4 % (11.6-14.6); RBC Distribution Width SD 50.4 fl (35.1-43.9); Red Blood Count 3.59 M/mm3 (4.6-6.2); White Blood Count 7.1 K/mm3 (4.4-11.0)
[2021-09-19 05:52] LABS: Differential Indicated SCAN CRITERIA MET
[2021-09-19] MEDS: Lisinopril 10 MG Tablet PO (05:52)
[2021-09-19] MEDS: Levothyroxine 100 MCG Tablet 200 MCG PO (05:52)
[2021-09-19] MEDS: Aspirin E.C. 81 MG Tablet PO (05:53)
[2021-09-19 06:13] LABS: Anisocytosis 1+
[2021-09-19 06:16] LABS: Anion Gap 6 (5-15); BUN 13 mg/dL (7-18); BUN/Creat Ratio 20.1 RATIO (10-20); Calcium,Total 8.5 mg/dL (8.5-10.1); Chloride 98 mmol/L (98-107); Creatinine, Serum 0.65 mg/dL (0.70-1.30); EST Glomerular Filtration Rate 127 mL/min (>60); Est Glom Filt Rate - Afr Amer 153 mL/min (>60); Estimated Creatinine Clearance 60.88 ml/min; Glucose 101 mg/dL (74-106); Magnesium 2.1 mg/dL (1.6-2.6); Potassium 4.2 mmol/L (3.5-5.1); Sodium Level 128 mmol/L (136-145)
[2021-09-19 07:00] VITALS: PULSE 75
[2021-09-19] MEDS: Albuterol 2.5 MG/3 ML VIAL.NEB. INHALATION (07:03)
[2021-09-19] MEDS: Budesonide Respules 0.5 MG/2 ML AMPUL.NEB. INHALATION (07:03)
[2021-09-19 07:05] VITALS: PULSE 78; RESP 18; O2SAT 98
--- NOTE | 2021-09-19 07:41 | PCM.PN.HOSP ---
Subjective Subjective Patient is scheduled to undergo nuclear stress test Objective Data Objective Data Vital Signs: Vital Signs Temp Pulse Resp BP Pulse Ox O2 Del Method 97.6 F L 78 18 120/76 98 Room Air 09/19/21 04:05 09/19/21 07:05 09/19/21 07:05 09/19/21 04:05 09/19/21 07:05 09/19/21 07:05 Oxygen Delivery Method Room Air Weight: 84.6 kg Body Mass Index (BMI) 27.9 Intake & Output: Intake and Output for Last 24 Hours 09/17/21 09/18/21 09/19/21 23:59 23:59 23:59 Intake Total 232.5 / 232.5 1000 / 1000 Balance 232.5 / 232.5 1000 / 1000 Lab / Micro Data Result Diagrams: 09/19/21 04:47 09/19/21 04:47 Labs: Laboratory Results - last 24 hr 09/19/21 04:47: WBC 7.1, RBC 3.59 L, Hgb 10.7 L, Hct 32.4 L, MCV 90.3, MCH 29.8, MCHC 33.0, RDW Std Deviation 50.4 H, RDW Coeff of Abena 15.4 H, Plt Count 198, MPV 11.2, Immature Gran % (Auto) 0.300, Neut % (Auto) 77.5 H, Lymph % (Auto) 5.5 L, [place] % (Auto) 11.9 H, Eos % (Auto) 4.2, Baso % (Auto) 0.6, Absolute Neuts (auto) 5.5, Absolute Lymphs (auto) 0.39 L, Nucleated RBC % 0, Anisocytosis 1+ 09/19/21 04:47: Sodium 128 L, Potassium 4.2, Chloride 98, Carbon Dioxide 24.0, Anion Gap 6, BUN 13, Creatinine 0.65 L, Estim Creat Clear Calc 60.88, Est GFR (MDRD) Af Amer 153, Est GFR (MDRD) Non-Af 127, BUN/Creatinine Ratio 20.1 H, Glucose 101, Calcium 8.5, Magnesium 2.1 Physical Exam Narrative GENERAL: cooperative HEENT: Atraumatic; EYES; Anicteric, Normal Conjunctiva NECK; supple, normal thyroid, RESPIRATORY: Diminished to auscultation CARDIOVASCULAR: Regular S1 S2, GI: soft, normoactive bowel sounds, : No Renal angle tenderness; EXTREMITIES: No edema, no clubbing, MUSCULOSKELETAL: no muscle wasting NEURO: Awake; no lateralizing signs. SKIN: No Rash PSYCH; Flat affect Assessment & Plan Assessment/Plan (1) Unstable angina: PLAN: Patient is a 72-year-old gentleman with past medical history segment for coronary artery disease with previous CABG who presented with a 3-day history of chest pain 1. Chest pain ? Patient has been admitted to monitored bed OR ruled out with serial cardiac enzymes. Patient to undergo subsequent evaluation with nuclear stress test on 09/19/2021 ? 09/19/2021: Scheduled to undergo nuclear stress test this a.m. 3. Coronary artery disease ? With previous CABG 4. Hypertension - Blood pressure controlled, home medications continued with dose adjustment as needed 5. Dyslipidemia -Patient is on statin therapy, continued at home dose 6. GERD with Delcid's esophagus ? Patient is on PPI 7. Hypothyroidism - Patient is on levothyroxine home dose continued 8. COPD/emphysema: ? Currently not in exacerbation aerosol treatments as needed 9. DVT prophylaxis ? Enoxaparin Charges/Coding Visit Charges OBSV E&M: 74985 Subsequent observation care L2
--- NOTE | 2021-09-19 11:30 | CASEMGMT ---
Addendum entered by Keyana Torres 09/19/21 13:03: This RN CM to room with DONAHUE form, explanation done-pt voices understanding, and signs DONAHUE form. Original to chart and copy to pt. Pt voices no further questions/concerns/needs. Luz LIMON CM Original Note: This RN CM to room w/ DONAHUE form and pt is out of the dept for stress test. CM to attempt again later. Luz LIMON CM
[2021-09-19 12:45] VITALS: BP 117/81; PULSE 79; RESP 16; TEMP 36.9; O2SAT 99
[2021-09-19] MEDS: Fluticasone 0.05% 1 SPRAY NASAL.SRY NASAL (12:45)
[2021-09-19 12:46] VITALS: PULSE 81
[2021-09-19] MEDS: Metoprolol(XL)Succ 25 MG Tablet 75 MG PO (12:46)
[2021-09-19] MEDS: Pantoprazole Sodium 40 MG Tablet PO (12:51)
--- NOTE | 2021-09-19 12:53 | STRESSREP ---
Stress Test Report Pharmacologic myocardial perfusion stress test. 80-year-old man with a history of chest pain. Stress protocol: Resting EKG demonstrates normal sinus rhythm with a rate of 72 bpm normal intervals are noted resting blood pressure is 118/80 mmHg. 0.4 mg of regadenoson was infused per usual protocol followed byIntravenous saline flush injection continuous EKG monitoring was performed. At rest there were no ST or T wave changes noted to suggest abnormal flow reserve and at peak infusion nonspecific ST changes were noted with did not meet the criteria for ischemia. No clinical angina was noted. The resting blood pressure is 118/80 with a final blood pressure 120/68 mmHg. Myocardial perfusion protocol. 11.4 mCi of technetium 99m sestamibi was injected at rest. 0.4 mg of regadenoson was infused per usual protocol. At peak infusion 33.9 mCi of technetium 99m sestamibi was injected stress images were obtained stress and rest images were reconstructed and compared in the short axis vertical long and horizontal long axis. Gated images were also obtained. Perfusion SPECT analysis: Review of the stress images demonstrate normal uptake of tracer noted in all areas of the myocardium. The resting images similarly demonstrate normal uptake of tracer noted in all areas of the myocardium. No areas of reversibility are noted to suggest ischemia and no previous infarct is noted. Gated SPECT analysis: The gated ejection fraction is 60%. Conclusion: Normal pharmacologic myocardial perfusion stress test. Preserved ejection fraction.
[2021-09-19] MEDS: Hydrocortisone 2.5% Ointment 20 gm tube 1 APPLIC TOPICAL (12:58)
[2021-09-19] MEDS: Enoxaparin 40 MG/0.4 ML Syringe SC (13:11)
--- NOTE | 2021-09-19 13:24 | DS.PCM_ITS ---
Providers Date of Admission: 09/17/21 Date of Discharge: 09/19/21 Primary Care Physician: Dr. Wily Espinal MD Reason For Visit: UNSTABE ANGINA Diagnosis Discharge Diagnosis (1) Unstable angina: Status: Acute Code(s): I20.0 - Unstable angina Medications at Discharge Home Medications acetaminophen 325 mg tablet 650 mg PO Q4H PRN Pain Or Fever 12/09/18 aspirin 81 mg tablet,delayed release (Adult Aspirin Regimen) 81 mg PO DAILY 12/09/18 levothyroxine 200 mcg tablet 200 mcg PO DAILY 12/09/18 lisinopril 10 mg tablet 10 mg PO DAILY bp 12/09/18 magnesium oxide 400 mg PO DAILY 12/09/18 metoprolol succinate 25 mg tablet,extended release 24 hr 75 mg PO BID bp 12/09/18 multivitamin 1 tab PO QAM 12/09/18 pantoprazole 40 mg tablet,delayed release 40 mg PO BID 12/09/18 sennosides 8.6 mg-docusate sodium 50 mg tablet (Senna with Docusate Sodium) 1 tab PO QHS 12/09/18 simvastatin 80 mg tablet 80 mg PO QHS cholesterol 12/09/18 fluticasone propionate 115 mcg-salmeterol 21 mcg/actuation HFA inhaler (Advair HFA) 2 inh inhalation BID sob 09/17/21 fluticasone propionate 50 mcg/actuation nasal spray,suspension 2 ea intranasal BID stuffiness 09/17/21 Hospital Course Summary of Care Provided Minutes Spent on Discharge: 35 Hospital Course: Patient is a 72-year-old gentleman with past medical history segment for coronary artery disease with previous CABG who presented with a 3-day history of chest pain 1. Chest pain ? Patient has been admitted to monitored bed [place] ruled out with serial cardiac enzymes. Patient to undergo subsequent evaluation with nuclear stress test on 09/19/2021 ? 09/19/2021: Scheduled to undergo nuclear stress test this a.m. ? Patient nuclear stress test was negative for stress-induced ischemia discharged home on his medication and instructed to follow-up with primary care physician for subsequent care 3. Coronary artery disease ? With previous CABG 4. Hypertension - Blood pressure controlled, home medications continued with dose adjustment as needed 5. Dyslipidemia -Patient is on statin therapy, continued at home dose 6. GERD with Delcid's esophagus ? Patient is on PPI 7. Hypothyroidism - Patient is on levothyroxine home dose continued 8. COPD/emphysema: ? Currently not in exacerbation aerosol treatments as needed 9. DVT prophylaxis ? Enoxaparin Physical Exam Narrative GENERAL: cooperative HEENT: Atraumatic; EYES; Anicteric, Normal Conjunctiva NECK; supple, normal thyroid, RESPIRATORY: Diminished to auscultation CARDIOVASCULAR: Regular S1 S2, GI: soft, normoactive bowel sounds, : No Renal angle tenderness; EXTREMITIES: No edema, no clubbing, MUSCULOSKELETAL: no muscle wasting NEURO: Awake; no lateralizing signs. SKIN: No Rash PSYCH; Flat affect Weight / BMI Weight Weight: 84.6 kg Body Mass Index (BMI) 27.9 ABG / Lab / Microbiology Data Result Diagrams: 09/19/21 04:47 09/19/21 04:47 Laboratory: Laboratory Results - last 24 hr 09/19/21 04:47: WBC 7.1, RBC 3.59 L, Hgb 10.7 L, Hct 32.4 L, MCV 90.3, MCH 29.8, MCHC 33.0, RDW Std Deviation 50.4 H, RDW Coeff of Abena 15.4 H, Plt Count 198, MPV 11.2, Immature Gran % (Auto) 0.300, Neut % (Auto) 77.5 H, Lymph % (Auto) 5.5 L, [place] % (Auto) 11.9 H, Eos % (Auto) 4.2, Baso % (Auto) 0.6, Absolute Neuts (auto) 5.5, Absolute Lymphs (auto) 0.39 L, Nucleated RBC % 0, Anisocytosis 1+ 09/19/21 04:47: Sodium 128 L, Potassium 4.2, Chloride 98, Carbon Dioxide 24.0, Anion Gap 6, BUN 13, Creatinine 0.65 L, Estim Creat Clear Calc 60.88, Est GFR (MDRD) Af Amer 153, Est GFR (MDRD) Non-Af 127, BUN/Creatinine Ratio 20.1 H, Glucose 101, Calcium 8.5, Magnesium 2.1 D/C Instructions Discharge Diet: No restrictions Discharge Activity: Return to Normal Activity Call your doctor if you observe: Fever of 101 or Higher, Shortness of breath, Fainting spells and Chest pain Meaningful Use Info Meaningful Use Diagnoses (Choose all that apply): None applicable Discharge Plan Admission Admit Date/Time: 09/17/21 15:02 Attending Provider: Heladio Harding Primary Care Provider: Wily Espinal Consulting Providers: Randy Baugh Discharge Orders/Prescriptions Prescriptions: Continued lisinopril 10 mg tablet 10 mg PO DAILY aspirin [Adult Aspirin Regimen] 81 mg tablet,delayed release (DR/EC) 81 mg PO DAILY magnesium oxide 400 mg magnesium capsule 400 mg PO DAILY sennosides-docusate sodium [Senna with Docusate Sodium] 8.6-50 mg tablet 1 tab PO QHS acetaminophen 325 mg tablet 650 mg PO Q4H PRN (Reason: Pain Or Fever) levothyroxine 200 mcg tablet 200 mcg PO DAILY multivitamin Tablet 1 tab PO QAM metoprolol succinate 25 mg tablet extended release 24 hr 75 mg PO BID simvastatin 80 mg tablet 80 mg PO QHS pantoprazole 40 mg tablet,delayed release (DR/EC) 40 mg PO BID Advair HFA 115-21 mcg/actuation HFA aerosol inhaler 2 inh INHALATION BID Label Comments: INHALE 2 PUFFS INSTRUCTED TWICE DAILY. RINSE MOUTH AFTER USE. fluticasone propionate 50 mcg/actuation spray,suspension 2 ea INTRANASAL BID Label Comments: USE 2 SPRAYS IN EACH NOSTRIL ONCE DAILY. RINSE MOUTH AFTER USE. Referrals / Follow Up: Wily Espinal MD [Primary Care Provider] - In 1 Week Disposition Disposition (needs filled in before D/C Order can be placed): Home, Self Care Charges/Coding Visit Charges OBSV E&M: 36938 Observation care discharge
== END 2021-09-19 13:29 | disposition home or self-care (01) ==
LOC: ED 15:04 → PCU 15:30
PROVIDERS: Admitting Provider Internal Medicine; Emergency Provider Emergency Medicine; PCP Family Medicine; Visit Provider Internal Medicine
DX: I25.110 Atherosclerotic heart disease of native coronary artery with unstable angina pectoris (principal); J43.9 Emphysema, unspecified; Z87.891 Personal history of nicotine dependence; I10 Essential (primary) hypertension; E78.5 Hyperlipidemia, unspecified; K21.9 Gastro-esophageal reflux disease without esophagitis; Z79.899 Other long term (current) drug therapy; Z79.890 Hormone replacement therapy; E03.9 Hypothyroidism, unspecified; K22.70 Barrett's esophagus without dysplasia; M51.36 Other intervertebral disc degeneration, lumbar region; Z79.82 Long term (current) use of aspirin
CPT/HCPCS: 36415; 71045; 78452; 80048; 80061; 83735; 84443; 84484; 85025; 93005; 93017; 94640; 96360; 96361; 96372; 99218; 99251; 99285; 99406; A9500; J7030; A4216; G0378; G0463; J2785

== ENCOUNTER 2023-01-01 08:45 | Emergency (ER) | payer MEDICARE, OTHER, SELFPAY ==
[2023-01-01 08:46] VITALS: BP 141/79; PULSE 95; RESP 16; TEMP 36.4; O2SAT 100; BMI 25.2
--- NOTE | 2023-01-01 09:08 | EDS_ITS ---
HPI History of Present Illness Chief Complaint: [facility] Medical History Atherosclerosis of coronary artery of [place] heart without angina pectoris Delcid's esophagus DDD (degenerative disc disease), lumbar GERD (gastroesophageal reflux disease) Hiatal hernia Hypothyroidism Home Medications acetaminophen 325 mg tablet 650 mg PO Q4H PRN Pain Or Fever 12/09/18 [History Last Taken Unknown] aspirin 81 mg tablet,delayed release (Adult Aspirin Regimen) 81 mg PO DAILY 12/09/18 [History Last Taken Unknown] levothyroxine 200 mcg tablet 200 mcg PO DAILY 12/09/18 [History Last Taken Unknown] lisinopril 10 mg tablet 10 mg PO DAILY bp 12/09/18 [History Last Taken Unknown] magnesium oxide 400 mg PO DAILY 12/09/18 [History Last Taken Unknown] metoprolol succinate 25 mg tablet,extended release 24 hr 75 mg PO BID bp 12/09/18 [History Last Taken Unknown] multivitamin 1 tab PO QAM 12/09/18 [History Last Taken Unknown] pantoprazole 40 mg tablet,delayed release 40 mg PO BID 12/09/18 [History Last Taken Unknown] sennosides 8.6 mg-docusate sodium 50 mg tablet (Senna with Docusate Sodium) 1 tab PO QHS 12/09/18 [History Last Taken Unknown] simvastatin 80 mg tablet 80 mg PO QHS cholesterol 12/09/18 [History Last Taken Unknown] fluticasone propionate 115 mcg-salmeterol 21 mcg/actuation HFA inhaler (Advair HFA) 2 inh inhalation BID sob 09/17/21 [History Last Taken Unknown] fluticasone propionate 50 mcg/actuation nasal spray,suspension 2 ea intranasal BID stuffiness 09/17/21 [History Last Taken Unknown] amoxicillin 875 mg-potassium clavulanate 125 mg tablet 1 tab PO BID 10 days #20 tabs 01/01/23 [Rx Last Taken Unknown] ibuprofen 200 mg tablet 200 mg PO Q6H PRN pain #30 tabs 01/01/23 [Rx Last Taken Unknown] Allergy/AdvReac Type Severity Reaction Status Date / Time cefdinir [From Omnicef] Allergy Intermediate Diarrhea Verified 01/01/23 08:48 atorvastatin AdvReac Intermediate myalgias Verified 01/01/23 08:48 azithromycin [From Zithromax] AdvReac Nausea/Vom/ Verified 01/01/23 08:48 Diarrhea Family History Mother Emphysema of lung Father Emphysema of lung Surgical History History of appendectomy History of back surgery (~04/25/17) 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) Social History Smoking Status: Former smoker how long ago did patient quit smokin years ago alcohol intake: current alcohol intake frequency: a few times a week Alcohol type: beer substance use type: does not use EXAM Physical Exam Const Vital Signs: 01/01/23 08:46 Temperature 97.6 F L Temperature Source Temporal Pulse Rate 95 Respiratory Rate 16 Blood Pressure 141/79 H Blood Pressure Mean 99 Pulse Ox 100 Oxygen Delivery Method Room Air MDM MDM MDM Narrative Medical decision making narrative: HISTORY OF PRESENT ILLNESS: 82-year-old male here with concern for bilateral hand redness from cat scratches. States this occurred yesterday he complains of pain over the right first digit, pain over the left dorsal hypothenar eminence. REVIEW OF SYSTEMS: Pertinent positives: Redness, wounds Pertinent negatives: Fever, nausea vomiting PHYSICAL EXAM: Nursing triage notes reviewed, Vital signs reviewed Constitutional: please see mdm : No CVAT Extremities: No edema, no obvious deformity, there is swelling noted over the puncture site of the left second digit interphalangeal joint. Intact flexor tendon structures both digitorum and profundus. Intact radial pulse in bila teral upper extremities. Neuro: intact 5/5 strength with ok sign (median), intact finger abduction (ulnar) intact wrist extension (radial n). Intact sensation in the radial, ulnar, and median nerve distributions. Skin: Puncture wounds noted over the interphalangeal joint of the second digit of the left hand, intact extensor mechanism. MEDICAL DECISION MAKING: Chief Complaint: Redness, wounds from cat scratches External records reviewed: No recent ED visits for similar Factors affecting care: Hypertension, hypothyroidism, hyperlipidemia MDM Narrative: Patient was hemodynamically stable, afebrile, nontoxic-appearing. Exam with swelling puncture wounds but no obvious cellulitic changes or discharge. No signs of necrotizing fasciitis, flexor tenosynovitis,. Low suspicion for septic arthritis. No evidence of cellulitis. Given his cat bite and cat scratch will give prophylactic antibiotics (Augmentin) and strict return precautions. I considered the following differential diagnosis: Cellulitis, necrotizing fasciitis, flexor tenosynovitis, septic arthritis The patient and/or family, caregivers express understanding. The patient and/or family, caregivers agrees with the plan. Shared decision making: I will have a discussion with the patient and or visitors regarding risk/benefits of further testing or admission. They will be made aware of of the risk/benefits inherent in this decision they will be given the opportunity to voice understanding. Total critical care time today provided was at least 0 minutes. This excludes separately billable procedures. Critical care time (if documented) is secondary to the patient having high probability of clinically significant/life threatening deterioration in the patient's condition which required my urgent intervention. Impression: 1. Cat bite Dispo: Discharge Discharge Plan Triage Chief Complaint: Wound ED Provider: Virgil Barker Dx/Rx/DC Orders Clinical Impression: Cat bite, Cat scratch Instructions: Animal Bites and Scratches Prescriptions: New amoxicillin-pot clavulanate 875-125 mg tablet 1 tab PO BID 10 Days Qty: 20 0RF ibuprofen 200 mg tablet 200 mg PO Q6H PRN (Reason: pain) Qty: 30 0RF No Action lisinopril 10 mg tablet 10 mg PO DAILY aspirin [Adult Aspirin Regimen] 81 mg tablet,delayed release (DR/EC) 81 mg PO DAILY magnesium oxide 400 mg magnesium capsule 400 mg PO DAILY sennosides-docusate sodium [Senna with Docusate Sodium] 8.6-50 mg tablet 1 tab PO QHS acetaminophen 325 mg tablet 650 mg PO Q4H PRN (Reason: Pain Or Fever) levothyroxine 200 mcg tablet 200 mcg PO DAILY multivitamin Tablet 1 tab PO QAM metoprolol succinate 25 mg tablet extended release 24 hr 75 mg PO BID simvastatin 80 mg tablet 80 mg PO QHS pantoprazole 40 mg tablet,delayed release (DR/EC) 40 mg PO BID Advair HFA 115-21 mcg/actuation HFA aerosol inhaler 2 inh INHALATION BID Patient Comments: INHALE 2 PUFFS INSTRUCTED TWICE DAILY. RINSE MOUTH AFTER USE. fluticasone propionate 50 mcg/actuation spray,suspension 2 ea INTRANASAL BID Patient Comments: USE 2 SPRAYS IN EACH NOSTRIL ONCE DAILY. RINSE MOUTH AFTER USE. Primary Care Provider: Wily Espinal Referrals: Wily Espinal MD [Primary Care Provider] - Activity Restrictions/Additional Instructions: Thank you for trusting us with your care today! Please take ibuprofen (2 pills, 400 mg) every 6 hours as needed for pain and fever control. Please take Augmentin as prescribed finish entire course Please return to the emergency department if your symptoms change or worsen. Specifically if your symptoms or not better within 5 days. Develop worsening swelling, pain, redness, fever if you are unable to take antibiotics by mouth. Please follow with your primary care physician for further outpatient evaluation and management. Disposition Disposition: Home, Self Care
[2023-01-01] MEDS: Amox/Clavulanate 875 MG Tablet PO (09:44)
[2023-01-01] MEDS: Ibuprofen 200 MG Tablet PO (09:44)
== END 2023-01-01 10:02 | disposition home or self-care (01) ==
LOC: ED 09:36
PROVIDERS: Emergency Provider Emergency Medicine; PCP Family Medicine; Visit Provider Emergency Medicine
DX: S61.451A Open bite of right hand, initial encounter (principal); S61.452A Open bite of left hand, initial encounter; I25.10 Atherosclerotic heart disease of native coronary artery without angina pectoris; Z95.1 Presence of aortocoronary bypass graft; Z87.891 Personal history of nicotine dependence; W55.01XA Bitten by cat, initial encounter
CPT/HCPCS: 99283

== ENCOUNTER 2023-06-30 18:55 | Emergency (ER) | payer MEDICARE, OTHER, SELFPAY ==
[2023-06-30 18:55] VITALS: BP 148/75; PULSE 123; RESP 24; TEMP 37.6; O2SAT 99; BMI 26.5
[2023-06-30 18:57] VITALS: BP 148/75; PULSE 123; RESP 24; TEMP 37.6; O2SAT 99
--- NOTE | 2023-06-30 19:18 | CT_ITS ---
STUDY: CT ABDOMEN AND PELVIS WITH CONTRAST - URINARY TRACT REASON FOR EXAM: Male, 82 years old. Appendicitis RADIATION DOSAGE (If Supplied By Facility): CTDIvol = ( 16.05 ) mGy, DLP = ( 1238.25 ) mGycm TECHNIQUE: IV 100mL Isovue-370 was administered. Transaxial images were obtained from the dome of the diaphragm to the symphysis pubis in the arterial, nephrographic and excretory phases. Multiplanar coronal and sagittal images were reformatted. The protocol utilizes one or more of the following dose reduction techniques: automated exposure control, adjustment of mA and/or kV according to patient size,and/or use of iterative reconstruction technique. COMPARISON: No relevant prior comparison study available FINDINGS: Mild atelectatic changes in the lower lungs. Normal heart size. Coronary calcifications. Status post median sternotomy. No pericardial effusion is seen. No focal lesion is seen in the liver. There are surgical clips in the gallbladder fossa consistent with a prior cholecystectomy. Normal spleen. Normal pancreas. Normal bilateral adrenal glands. Nonspecific bilateral perinephric stranding. Simple cyst in the lateral aspect of the left kidney measuring about 3.2 cm. 4.3 cm cyst in the lower pole of the right kidney appears to be simple as well for which no further follow-up exam is needed. Extensive stranding is seen around the lower pole of the right kidney adjacent to the cyst extending to the right lower quadrant and retroperitoneum. Small to moderate hiatal hernia. Nonspecific fluid-filled small bowel loops without evidence of bowel obstruction. No evidence of acute diverticulitis. The appendix is not definitely identified. There is diffuse atherosclerotic calcification of the abdominal aorta, without a demonstrated aneurysm. No retroperitoneal adenopathy. Normal urinary bladder. Slightly prominent prostate. Normal abdominal wall. Multilevel degenerative changes of the spine. Laminectomy from the level of L3 to the level of S1. CT/Abdomen/Pelvis W IV Cont ONLY IMPRESSION: 1. Extensive stranding in the right flank region extending to the right lower quadrant and retroperitoneum with fluid could be due to a ruptured cyst in the lower pole of right kidney. 2. The appendix is not definitely identified. Further evaluation with oral contrast might be of value to rule out ruptured appendicitis. 3. Nonspecific fluid-filled small bowel loops without evidence of bowel obstruction could be due to ileus. 4. Hiatal hernia. Electronically Signed: Diego Webb MD at 20:42 EDT ,
[2023-06-30] MEDS: 0.9% Normal Saline (1000mL) 1,000 ML 1000 ML IV (19:28)
[2023-06-30] MEDS: Ondansetron 4 MG/2 ML Vial IV (19:28)
[2023-06-30] MEDS: Morphine 4 MG/ML Syringe IV (19:28)
--- NOTE | 2023-06-30 19:32 | EX.ED.DYSGE1 ---
HPI History of Present Illness Chief Complaint: Abd Pain Informant: patient and family Narrative Narrative: 82-year-old male presenting to the emergency room with fever and abdominal pain. Patient states that yesterday afternoon he developed pain in the right lower quadrant of his abdomen. He has not had any vomiting or change in bowel habits. He denies any urinary frequency or dysuria. Pain does not radiate. It is not moved in location or quality. He developed a fever this afternoon and took Tylenol for that. He reports having had prior cholecystectomy and umbilical, inguinal, and hiatal hernia repairs. The patient denies taking a blood thinner. He ate some of his dinner around 1800 hrs. tonight. He is unsure if he still has an appendix but on CT scan from 2019 that was read as a normal-appearing appendix. He does note that it hurts to walk. [facility] Medical History Atherosclerosis of coronary artery of habematolel heart without angina pectoris Hiatal hernia Hypothyroidism Delcid's esophagus GERD (gastroesophageal reflux disease) DDD (degenerative disc disease), lumbar Home Medications ?Medication ?Instructions ?Recorded ?Last Taken ?Type acetaminophen 325 mg tablet 650 mg PO Q4H PRN Pain Or Fever 12/09/18 Unknown History aspirin 81 mg tablet,delayed 81 mg PO DAILY 12/09/18 Unknown History release (Adult Aspirin Regimen) levothyroxine 200 mcg tablet 200 mcg PO DAILY 12/09/18 Unknown History lisinopril 10 mg tablet 10 mg PO DAILY bp 12/09/18 Unknown History magnesium oxide 400 mg PO DAILY 12/09/18 Unknown History metoprolol succinate 25 mg 75 mg PO BID bp 12/09/18 Unknown History tablet,extended release 24 hr multivitamin 1 tab PO QAM 12/09/18 Unknown History pantoprazole 40 mg tablet,delayed 40 mg PO BID 12/09/18 Unknown History release sennosides 8.6 mg-docusate sodium 1 tab PO QHS 12/09/18 Unknown History 50 mg tablet (Senna with Docusate Sodium) simvastatin 80 mg tablet 80 mg PO QHS cholesterol 12/09/18 Unknown History fluticasone propionate 115 2 inh inhalation BID sob 09/17/21 Unknown History mcg-salmeterol 21 mcg/actuation HFA inhaler (Advair HFA) fluticasone propionate 50 2 ea intranasal BID stuffiness 09/17/21 Unknown History mcg/actuation nasal spray,suspension ibuprofen 200 mg tablet 200 mg PO Q6H PRN pain #30 tabs 01/01/23 Unknown Rx Allergy/AdvReac Type Severity Reaction Status Date / Time cefdinir (From Omnicef) Allergy Intermediate Diarrhea Verified 06/30/23 18:56 atorvastatin AdvReac Intermediate myalgias Verified 06/30/23 18:56 azithromycin (From Zithromax) AdvReac Nausea/Vom/ Verified 06/30/23 18:56 Diarrhea Family History Mother Emphysema of lung Father Emphysema of lung Surgical History 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) History of back surgery (~04/25/17) Social History Smoking Status: Former smoker how long ago did patient quit smokin years ago alcohol intake: current alcohol intake frequency: a few times a week Alcohol type: beer substance use type: does not use ROS ROS ED Constitutional Constitutional ED: Reports fever(s); Denies chills or weight loss Eyes Eyes: Denies change in vision or diplopia ENT ENT ED: Denies ear pain, rhinorrhea or sore throat Cardiovascular Cardiovascular: Denies chest pain, orthopnea, palpitations or racing heartbeat Respiratory/Chest Respiratory/Chest: Denies cough, dyspnea or orthopnea Gastrointestinal Gastrointestinal: Reports abdominal pain and other Details: decreased appetite ; Denies diarrhea, nausea or vomiting Genitourinary Genitourinary ED: Denies dysuria, hematuria or urinary frequency Musculoskeletal Musculoskeletal: Denies arthralgias or myalgias Integumentary Denies abscess or rash Neurologic Neurologic: Denies headache(s) or weakness Psychiatric Psychiatric: Denies anxiety, depression, suicidal ideation or suicidal thoughts Endocrine Endocrinology: Denies polydipsia, polyphagia or polyuria Allergic/Immunologic Allergic/Immunologic ED: Denies mouth swelling, tongue swelling or urticaria EXAM Physical Exam Const Vital Signs: 06/30/23 18:55 06/30/23 18:57 06/30/23 19:57 Temperature 99.6 F H 99.6 F H 98.0 F Temperature Source Oral Oral Temporal Pulse Rate 123 H 123 H 90 Respiratory Rate 24 H 24 H 16 Blood Pressure 148/75 H 148/75 H 122/67 H Blood Pressure Mean 99 99 85 Pulse Ox 99 99 94 Oxygen Delivery Method Room Air 06/30/23 20:00 06/30/23 20:55 Temperature 98.0 F Temperature Source Temporal Pulse Rate 87 85 Respiratory Rate 18 18 Blood Pressure 124/62 H 134/84 H Blood Pressure Mean 82 100 Pulse Ox 95 95 Oxygen Delivery Method Room Air Room Air Positive well nourished and well developed General Appearance ED: well developed HEENT Reports normocephalic, head/scalp atraumatic and moist mucous membranes Eyes PERRL and EOMs intact bilaterally Neck no lymphadenopathy, supple and no JVD Resp normal respiratory effort and clear to auscultation bilaterally Cardio regular rate, regular rhythm and no murmurs Rate: tachycardic GI Auscultation: normoactive bowel sounds Palpation: soft, tender RLQ, guarding RLQ and rebound tenderness present McBurney's point Back/Spine no CVA tenderness and normal ROM Extremity normal to inspection General Extremety ED: Negative for edema General Extremity: Negative for edema Neuro oriented x3 and CN's II-XII intact bilaterally Sensorium / Orientation: alert Motor Exam: strength 5/5 throughout Psych mental status grossly normal Mood & Affect: Negative for depressed or tearful Skin no rashes or lesions noted and no wounds MDM MDM MDM Narrative Medical decision making narrative: Patient's white count returned at 19.1 hemoglobin 11 platelet count 114 1. Creatinine is 1.13.. Urinalysis is normal. Lipase liver enzymes normal glucose of 151. CT on pelvis with IV contrast was obtained this demonstrates extensive stranding in the right flank region extending into the right lower quadrant and retroperitoneal area with. Possibly due to a ruptured cyst in the lower pole the right kidney. Nonvisualization of the appendix was made. Again in 2019 there is report that they could visualize the appendix however on my review I am not convinced that what I am seeing on their images is actually the appendix and again he may or may not have had a appendectomy. I spoke with our on-call surgeon Dr. Hobbs. Recommended that we repeat the CT with luminal contrast. I spoke with the patient and his . We do not have urologic coverage tonight. If after the next CT it is felt that this is most likely due to the cyst I think it would be [place] given his fever and leukocytosis and pain that he be evaluated at a facility that does have urologic coverage. Patient has received a dose of Zosyn as well as pain and nausea medication and IV fluids. I have kept him n.p.o. Care of the patient will be turned over to the oncoming night physician for check of CT and final disposition. History & Record Review Discussion w/independent historian: Patient and Significant other Additional record(s) reviewed:: Prior outpatient record, Prior ED visit and Prior labs Lab Data Attestation: I reviewed the patient's lab results. Labs: Laboratory Results - last 24 hr 06/30/23 06/30/23 19:10 20:23 WBC 19.1 H RBC 3.75 L Hgb 11.0 L Hct 33.2 L MCV 88.5 MCH 29.3 MCHC 33.1 RDW Std Deviation 47.2 H RDW Coeff of Abena 14.6 Plt Count 114 L MPV 11.5 Immature Gran % (Auto) 0.800 Neut % (Auto) 55.4 Lymph % (Auto) 2.4 L [place] % (Auto) 41.1 H Eos % (Auto) 0.2 Baso % (Auto) 0.1 Absolute Neuts (auto) 10.6 H Absolute Lymphs (auto) 0.45 L Nucleated RBC % 0 Differential Comment SCANNED Diff Path Review May foll Sodium 128 L Potassium 4.0 Chloride 96 L Carbon Dioxide 23.0 Anion Gap 9 BUN 16 Creatinine 1.13 Estim Creat Clear Calc 52.14 Est GFR (MDRD) Af Amer 80 Est GFR (MDRD) Non-Af 66 BUN/Creatinine Ratio 14.2 Glucose 151 H Calcium 8.7 Total Bilirubin 0.80 Direct Bilirubin 0.24 AST 25 ALT 20 Alkaline Phosphatase 70 Total Protein 6.7 Albumin 3.4 Globulin 3.3 Lipase 38 Urine Color Yellow Urine Clarity Clear Urine pH 6.5 Ur Specific [place] 1.010 Urine Protein 15 H Urine Glucose (UA) Normal Urine Ketones Negative Urine Occult Blood Negative Urine Nitrite Negative Urine Bilirubin Negative Urine Urobilinogen Normal Ur Leukocyte Esterase Negative Urine RBC 0 SEEN Urine WBC 0 SEEN Ur Squamous Epith Cells 0 SEEN Urine Bacteria 0 SEEN Urine Mucus 0 SEEN Radiography Diagnostic Testing: Clinical Impression(s) from Imaging Studies Abdomen/Pelvis CT 06/30/23 19:18 IMPRESSION: 1. Extensive stranding in the right flank region extending to the right lower quadrant and retroperitoneum with fluid could be due to a ruptured cyst in the lower pole of right kidney. 2. The appendix is not definitely identified. Further evaluation with oral contrast might be of value to rule out ruptured appendicitis. 3. Nonspecific fluid-filled small bowel loops without evidence of bowel obstruction could be due to ileus. 4. Hiatal hernia. Electronically Signed: Diego Webb MD at 20:42 EDT , Discharge Plan Triage Chief Complaint: Abd Pain ED Provider: Kushal Blount Dx/Rx/DC Orders Prescriptions: No Action lisinopril 10 mg tablet 10 mg PO DAILY aspirin [Adult Aspirin Regimen] 81 mg tablet,delayed release (DR/EC) 81 mg PO DAILY magnesium oxide 400 mg magnesium capsule 400 mg PO DAILY sennosides-docusate sodium [Senna with Docusate Sodium] 8.6-50 mg tablet 1 tab PO QHS acetaminophen 325 mg tablet 650 mg PO Q4H PRN (Reason: Pain Or Fever) levothyroxine 200 mcg tablet 200 mcg PO DAILY multivitamin Tablet 1 tab PO QAM metoprolol succinate 25 mg tablet extended release 24 hr 75 mg PO BID simvastatin 80 mg tablet 80 mg PO QHS pantoprazole 40 mg tablet,delayed release (DR/EC) 40 mg PO BID fluticasone propion-salmeterol [Advair HFA] 115-21 mcg/actuation HFA aerosol inhaler 2 inh INHALATION BID Patient Comments: INHALE 2 PUFFS INSTRUCTED TWICE DAILY. RINSE MOUTH AFTER USE. fluticasone propionate 50 mcg/actuation spray,suspension 2 ea INTRANASAL BID Patient Comments: USE 2 SPRAYS IN EACH NOSTRIL ONCE DAILY. RINSE MOUTH AFTER USE. ibuprofen 200 mg tablet 200 mg PO Q6H PRN (Reason: pain) Qty: 30 0RF Primary Care Provider: Wily Espinal Referrals: Wily Espinal MD [Primary Care Provider] - Print Language: Cameroonian
[2023-06-30 19:47] LABS: Absolute Lymphocyte Count 0.45 X10^3/uL (0.83-4.51); Absolute Neutrophil Count 10.6 X10^3/uL (2.0-7.7); Basophil# 0.02 X10^3/uL; Basophil% 0.1 % (0-1); Eosinophil# 0.03 X10^3/uL; Eosinophils% 0.2 % (0-5); Hematocrit 33.2 % (40-54); Lymphocyte # 0.45 X10^3/ul (0.83-4.51); Lymphocyte % 2.4 % (19-41); Mean Corp Hgb Conc 33.1 g/dL (32-36); Mean Corpuscular Hgb 29.3 pg (27.0-32.0); Mean Corpuscular Volume 88.5 fL (80-94); Mean Platelet Vol. 11.5 fl (6.2-12.0); Monocyte# 7.83 X10^3/uL; Monocyte% 41.1 % (0-10); NRBC Flagged by Analyzer 0 % (0-5); Neutrophil # 10.57 X10^3/uL (2.7-7.7); Neutrophil % 55.4 % (47-70); POSITIVE DIFFERENTIAL YES; POSITIVE MORPHOLOGY YES; Platelet Count 114 K/mm3 (150-450); RBC Distribution Width CV 14.6 % (11.6-14.6); RBC Distribution Width SD 47.2 fl (35.1-43.9); Red Blood Count 3.75 M/mm3 (4.6-6.2); White Blood Count 19.1 K/mm3 (4.4-11.0)
[2023-06-30 19:55] LABS: Differential Indicated SCAN CRITERIA MET
[2023-06-30 19:57] VITALS: BP 122/67; PULSE 90; RESP 16; TEMP 36.7; O2SAT 94
[2023-06-30 19:57] LABS: AST(SGOT) 25 U/L (15-37); Alanine Aminotransfer ALT/SGPT 20 U/L (16-61); Albumin, Serum 3.4 g/dL (3.2-5.0); Alkaline Phosphatase 70 U/L (45-117); Anion Gap 9 (5-15); BUN 16 mg/dL (7-18); BUN/Creat Ratio 14.2 RATIO (10-20); Bilirubin, Direct 0.24 mg/dL (0.00-0.30); Calcium,Total 8.7 mg/dL (8.5-10.1); Chloride 96 mmol/L (98-107); Creatinine, Serum 1.13 mg/dL (0.70-1.30); EST Glomerular Filtration Rate 66 mL/min (>60); Est Glom Filt Rate - Afr Amer 80 mL/min (>60); Estimated Creatinine Clearance 52.14 ml/min; Globulin 3.3 g/dL (2.2-4.2); Glucose 151 mg/dL (74-106); Lipase 38 U/L (13-75); Protein, Total 6.7 g/dL (6.4-8.2); Sodium Level 128 mmol/L (136-145)
[2023-06-30 20:00] VITALS: BP 124/62; PULSE 87; RESP 18; TEMP 36.7; O2SAT 95
[2023-06-30 20:26] LABS: Differential Comment SCANNED
[2023-06-30 20:30] LABS: Bacteria 0 SEEN /hpf (None Seen); Mucous, Urine 0 SEEN /hpf (<or=2+); Red Blood Cells-Urine 0 SEEN /hpf (0-5); Squamous Epithelial Cells - UA 0 SEEN /hpf (0-5); White Blood Cells 0 SEEN /hpf (0-5)
[2023-06-30 20:40] LABS: Color, Urine Yellow (Yellow); Glucose, Dipstick Normal (Normal); Ketone-Dipstick Negative (Negative); Leukocyte Esterase-Dipstick Negative /ul (Negative); Nitrite-Dipstick Negative (Negative); Occult Blood-Urine Negative /ul (Negative); Protein-Dipstick 15 mg/dl (Negative); Urine Bilirubin Dipstick Negative (Negative); Urine Clarity Clear (Clear); Urine Urobilinogen Normal (Normal); Urine pH 6.5 (5.0 - 8.0)
[2023-06-30] MEDS: Piperacil/Tazobactam 4.5 GM in 0.9% Normal Saline (100mL MB+) 100 ML IV (20:51)
[2023-06-30] MEDS: 0.9% Normal Saline (1000mL) 1,000 ML 150 ML IV (20:51)
[2023-06-30 20:55] VITALS: BP 134/84; PULSE 85; RESP 18; O2SAT 95
--- NOTE | 2023-06-30 21:02 | CT_ITS ---
INDICATION: RLQ Pain EXAMINATION: CT ABDOMEN AND PELVIS WITHOUT CONTRAST - CT Abdomen And Pelvis W/O Contrast Injection TECHNIQUE: Helically acquired images were obtained of the abdomen and pelvis without oral or IV contrast. A radiation dose optimization technique was used for this scan. IV Contrast dosage and agent: None. Oral contrast: Yes. COMPARISON: 06/30/2023 and 12/14/2018 FINDINGS: LOWER CHEST: Bibasilar dependent changes with trace right pleural effusion. Small hiatal hernia. LIVER: Homogeneous. No focal mass. GALLBLADDER AND BILIARY TREE: Cholecystectomy. No intra- or extrahepatic biliary ductal dilation. PANCREAS: No focal cystic or solid mass. SPLEEN: Normal size without focal cystic or solid mass. ADRENAL GLANDS: No nodules. KIDNEYS AND URETERS: Residual contrast in the bilateral collecting systems from prior study. Bilateral cortical cysts. No hydronephrosis. PERITONEUM: Hemorrhagic ascites in the right posterior peritoneum extending into the paracolic gutter. No free air. BOWEL: Poorly defined tubular structure in the right lower quadrant on axial image 123/series 2 in the area of the previously identified normal appendix on the 2019 study may represent remnants of a ruptured appendix. Oral contrast is present in small bowel but has not reached the large bowel. LYMPH NODES: No enlarged mesenteric or retroperitoneal lymph nodes. VESSELS: Aorta is non-dilated. URINARY BLADDER: Unremarkable. REPRODUCTIVE ORGANS: No pelvic masses. BONES: No acute or aggressive abnormality. CT/Abdomen/Pel W ORAL Cont Only IMPRESSION: Hemorrhagic ascites in the right lower quadrant with findings suspicious for possible ruptured appendix. Recommend surgical consultation. N.B. : The above Results were Read Back by Vimal Roberto MD to Mahendra Andrade DO, and understanding confirmed on 07/01/2023 00:02:28 (ET). Electronically Signed: Vimal Roberto MD at 23:44 EDT ,
[2023-06-30 22:00] VITALS: BP 117/72; PULSE 100; RESP 18; O2SAT 95
[2023-07-01] VITALS (7 sets, daily range): BP systolic 120–156; BP diastolic 65–83; PULSE 109–117; RESP 16–22; TEMP 36.6–37.9; O2SAT 93–98
--- NOTE | 2023-07-01 00:08 | CT_ITS ---
INDICATION: F/U EXAMINATION: CT Abdomen And Pelvis W/O Contrast Injection TECHNIQUE: Helically acquired images were obtained of the abdomen and pelvis with sagittal and coronal reconstructed images. Individualized dose optimization techniques were used for this CT. IV contrast dosage and agent: None. Oral contrast: Residual contrast seen in the stomach and proximal small bowel. COMPARISON: 06/30/2023 CT. FINDINGS: VESSELS: No abdominal aortic aneurysm. LIVER: No intrahepatic or extrahepatic biliary duct dilation. GALLBLADDER: Status post cholecystectomy. PANCREAS: No evidence of a mass. No evidence of pancreatitis. SPLEEN: Normal. ADRENAL GLANDS: Normal. KIDNEYS AND URETERS: No urinary tract stone. No hydronephrosis or hydroureter. No significant asymmetric perinephric stranding. 3.6 cm exophytic right lower pole renal lesion with average Hounsfield units of 35, unchanged as compared to yesterday''s CTs. Simple left renal cyst with no follow-up recommended. URINARY BLADDER: Unremarkable. BOWEL: No evidence of diverticulosis or diverticulitis. Appendix not identified. No evidence of bowel obstruction. REPRODUCTIVE ORGANS: Unremarkable. PERITONEUM: Stable stranding and small amount of hyperdense free fluid in the right hemiabdomen and pelvis extending from the right kidney into the right upper pelvis. No free air. LYMPH NODES: No pathologically enlarged mesenteric or retroperitoneal lymph nodes. ABDOMINAL WALL: No abdominal or pelvic wall hernia. BONES: No acute abnormality. LOWER CHEST: Small hiatal hernia. Right basilar atelectasis and small right pleural effusion. CT/Abdomen/Pelvis without Cont IMPRESSION: 1. Stranding and small amount of hyperdense free fluid within the right hemiabdomen extending from the right kidney to the right upper pelvis. No significant change as compared to 06/30/2023. 2. 3.6 cm exophytic indeterminate right lower pole renal lesion. Recommend follow-up with routine MRI versus CT with dedicated renal protocol. 3. Right basilar atelectasis and small right pleural effusion. Electronically Signed: Anderson Haas DO at 1:16 EDT ,
--- NOTE | 2023-07-01 00:29 | EX.PCM.CON.S ---
Assessment & Plan Assessment/Plan (1) Right flank pain: (2) Right lower quadrant abdominal pain: (3) Leukocytosis: PLAN: Plan Unable to definitively see the appendix on CT abdomen pelvis even in 2019 per my read. Did discuss with radiologist as well. At the time of talking with the radiologist did not have the new history of patient had a fall in the bathroom last night. Also patient has evidence of a right lower quadrant scar denies any groin surgeries and the thinks he previously had an appendectomy as a kid. Patient is not the best historian for some of the history initially that he did not have his appendix removed and then stuck more to the story that he did have his appendix removed when he was younger. Did also look in clinisync -- patient's had most of his recent surgeries at [facility] and appendectomy is also listed under surgical history. Will plan to repeat CT abdomen pelvis again and see if it shows the cecum better once the contrast is in the colon. Patient and family are agreeable with plan. --addendum repeat CT read-nonvisualized appendix CT/Abdomen/Pelvis without Cont IMPRESSION: 1. Stranding and small amount of hyperdense free fluid within the right hemiabdomen extending from the right kidney to the right upper pelvis. No significant change as compared to 06/30/2023. 2. 3.6 cm exophytic indeterminate right lower pole renal lesion. Recommend follow-up with routine MRI versus CT with dedicated renal protocol. 3. Right basilar atelectasis and small right pleural effusion. Electronically Signed: Anderson Haas DO at 1:16 EDT Julisa Hobbs M.D. Pager: [phone] [facility] [address] [place] [address], [facility], [address] [place] [address] Office: [phone] HPI Consult Data Date of Consult: 07/01/23 HPI Narrative HPI Narrative: JAYDEN TUCKER, is a 82 M who presents to the ER due to right lower quadrant and right back pain. Patient states it started about Sunday night. Patient was able to eat Sunday as well as most of the day Sunday just did not feel well during dinner so did not eat as much but denies any nausea or vomiting. Patient CT abdomen pelvis with IV only contrast question some ruptured cyst as there is fluid in the retroperitoneum also question if there could be a ruptured of the appendix as it was not well-seen. CT abdomen pelvis was repeated with p.o. contrast again this did not make it all the way to the ileocecal valve and there was concern for a ruptured appendix as it could not be seen well. Did discuss the scans with the radiologist. Did appear that the stranding and fluid was more in the retroperitoneum and not near the cecum. Radiologist did also say the Hounsfield units were more bloody which is not as consistent with appendicitis. After discussing this with the patient and his family patient does have a right lower quadrant incision and the thinks he previously had appendectomy as a child which patient agreed with and disagreed with me not be the best historian with his memory. But the and the son and the patient all denies any right groin surgery. Did personally review the CT abdomen pelvis from 2019 that called a normal-looking appendix however I do not think I see the appendix definitively and that 1 as well. Patient also gives new history of fall in the bathroom at 3 AM yesterday morning does not remember falling but did hit his arm on the toilet per the crawled back to the foot of the bed where then she woke up and helped him back into bed. Patient is only on 81 mg of aspirin. Patient is a leukocytosis of 19, neutrophil percentage was 55% with monocyte percentage 41%. Patient was given Zosyn IV in the ER. [facility] Medical History (Updated 07/01/23 @ 00:[address] Julisa Hobbs MD) Atherosclerosis of coronary artery of [place] heart without angina pectoris Hiatal hernia Hypothyroidism Delcid's esophagus GERD (gastroesophageal reflux disease) DDD (degenerative disc disease), lumbar Home Medications ?Medication ?Instructions ?Recorded ?Last Taken ?Type acetaminophen 325 mg tablet 650 mg PO Q4H PRN Pain Or Fever 12/09/18 Unknown History aspirin 81 mg tablet,delayed 81 mg PO DAILY 12/09/18 Unknown History release (Adult Aspirin Regimen) lisinopril 10 mg tablet 10 mg PO DAILY bp 12/09/18 Unknown History magnesium oxide 400 mg PO DAILY 12/09/18 Unknown History metoprolol succinate 25 mg 75 mg PO BID bp 12/09/18 Unknown History tablet,extended release 24 hr multivitamin 1 tab PO QAM 10/28/19 Unknown History pantoprazole 40 mg tablet,delayed 40 mg PO BID 12/09/18 Unknown History release sennosides 8.6 mg-docusate sodium 1 tab PO QHS 12/09/18 Unknown History 50 mg tablet (Senna with Docusate Sodium) simvastatin 80 mg tablet 80 mg PO QHS cholesterol 12/09/18 Unknown History fluticasone propionate 115 2 inh inhalation BID sob 09/17/21 Unknown History mcg-salmeterol 21 mcg/actuation HFA inhaler (Advair HFA) fluticasone propionate 50 2 ea intranasal BID stuffiness 09/17/21 Unknown History mcg/actuation nasal spray,suspension ibuprofen 200 mg tablet 200 mg PO Q6H PRN pain #30 tabs 01/01/23 Unknown Rx levothyroxine 175 mcg tablet 175 mcg PO DAILY disorder of 06/30/23 Unknown History thyroid gland metoprolol tartrate 25 mg tablet 25 mg PO BID 06/30/23 Unknown History tamsulosin 0.4 mg capsule 0.4 mg PO QHS 06/30/23 Unknown History Allergy/AdvReac Type Severity Reaction Status Date / Time cefdinir (From Omnicef) Allergy Intermediate Diarrhea Verified 06/30/23 18:56 atorvastatin AdvReac Intermediate myalgias Verified 06/30/23 18:56 azithromycin (From Zithromax) AdvReac Nausea/Vom/ Verified 06/30/23 18:56 Diarrhea Family History Mother Emphysema of lung Father Emphysema of lung Surgical History (Updated 07/01/23 @ 00:[address] 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) History of back surgery (~04/25/17) Social History Smoking Status: Former smoker how long ago did patient quit smokin years ago alcohol intake: current alcohol intake frequency: a few times a week Alcohol type: beer substance use type: does not use ROS Constitutional Constitutional: Reports anorexia Eyes Eyes: Denies blurry vision ENT HEENT: Reports dysphagia Cardiovascular Cardiovascular: Reports chest pain Respiratory/Chest Respiratory/Chest: Denies cough Gastrointestinal Gastrointestinal: Reports abdominal pain; Denies diarrhea, dysphagia, nausea or vomiting Genitourinary Genitourinary: Denies hematuria Musculoskeletal Musculoskeletal: Denies joint swelling Integumentary Integumentary: Denies jaundice Psychiatric Psychiatric: Denies anxiety or depression Hematologic/Lymphatic Hematologic/Lymphatic: Denies easy bleeding Physical Exam Const alert, oriented x3 and no apparent distress HEENT normocephalic and head/scalp atraumatic Resp normal respiratory effort Cardio regular rate GI soft to palpation; Negative for non-distended GI Narrative: Patient is minimally tender to palpation in the right lower quadrant no Rovsing sign or suprapubic/left lower quadrant pain, patient has a greatest tenderness in the right back/flank Palpation: Negative for guarding Extremity no clubbing, cyanosis or edema Neuro CN's II-XII intact bilaterally Psych mental status grossly normal Lab / Micro Data 06/30/23 19:10 06/30/23 19:10 Labs: Laboratory Results - last 24 hr 06/30/23 19:10: WBC 19.1 H, RBC 3.75 L, Hgb 11.0 L, Hct 33.2 L, MCV 88.5, MCH 29.3, MCHC 33.1, RDW Std Deviation 47.2 H, RDW Coeff of [place] 14.6, Plt Count 114 L, MPV 11.5, Immature Gran % (Auto) 0.800, Neut % (Auto) 55.4, Lymph % (Auto) 2.4 L, [place] % (Auto) 41.1 H, Eos % (Auto) 0.2, Baso % (Auto) 0.1, Absolute Neuts (auto) 10.6 H, Absolute Lymphs (auto) 0.45 L, Nucleated RBC % 0, Differential Comment SCANNED, Diff Path Review June, Sodium 128 L, Potassium 4.0, Chloride 96 L, Carbon Dioxide 23.0, Anion Gap 9, BUN 16, Creatinine 1.13, Estim Creat Clear Calc 52.14, Est GFR (MDRD) Af Amer 80, Est GFR (MDRD) Non-Af 66, BUN/Creatinine Ratio 14.2, Glucose 151 H, Calcium 8.7, Total Bilirubin 0.80, Direct Bilirubin 0.24, AST 25, ALT 20, Alkaline Phosphatase 70, Total Protein 6.7, Albumin 3.4, Globulin 3.3, Lipase 38 06/30/23 20:23: Urine Color Yellow, Urine Clarity Clear, Urine pH 6.5, Ur Specific Mood[place] 1.010, Urine Protein 15 H, Urine Glucose (UA) Normal, Urine Ketones Negative, Urine Occult Blood Negative, Urine Nitrite Negative, Urine Bilirubin Negative, Urine Urobilinogen Normal, Ur Leukocyte Esterase Negative, Urine RBC 0 SEEN, Urine WBC 0 SEEN, Ur Squamous Epith Cells 0 SEEN, Urine Bacteria 0 SEEN, Urine Mucus 0 SEEN Imaging Radiology Impression Abdomen/Pelvis CT 06/30/23 19:18 IMPRESSION: 1. Extensive stranding in the right flank region extending to the right lower quadrant and retroperitoneum with fluid could be due to a ruptured cyst in the lower pole of right kidney. 2. The appendix is not definitely identified. Further evaluation with oral contrast might be of value to rule out ruptured appendicitis. 3. Nonspecific fluid-filled small bowel loops without evidence of bowel obstruction could be due to ileus. 4. Hiatal hernia. Electronically Signed: Diego Webb MD at 20:42 EDT , Abdomen CT 06/30/23 21:02 IMPRESSION: Hemorrhagic ascites in the right lower quadrant with findings suspicious for possible ruptured appendix. Recommend surgical consultation. Electronically Signed: Vimal Roberto MD at 23:44 EDT , ADDENDUM: 07/01/23 0009 IMPRESSION: Hemorrhagic ascites in the right lower quadrant with findings suspicious for possible ruptured appendix. Recommend surgical consultation. N.B. : The above Results were Read Back by Vimal Roberto MD to Mahendra Andrade DO, and understanding confirmed on 07/01/2023 00:02:28 (ET). Electronically Signed: Vimal Roberto MD at 23:44 EDT , ADDENDUM: 07/01/23 0012 IMPRESSION: undefined
[2023-07-01] MEDS: Acetaminophen 325 MG Tablet 650 MG PO (02:07)
[2023-07-01] MEDS: Ondansetron 4 MG/2 ML Vial IV (02:07)
[2023-07-01] MEDS: Morphine 2 MG/ML Syringe IV (02:07)
[2023-07-01] MEDS: 0.9% Normal Saline (1000mL) 1,000 ML 150 ML IV (04:33)
[2023-07-02 13:28] LABS: Pathologist Review Reviewed
== END 2023-07-01 07:40 | disposition short-term general hospital (02) ==
PROVIDERS: Emergency Medicine; Emergency Provider Emergency Medicine; PCP Family Medicine; Visit Provider Emergency Medicine
DX: R50.9 Fever, unspecified (principal); R10.31 Right lower quadrant pain; I25.10 Atherosclerotic heart disease of native coronary artery without angina pectoris; Z79.82 Long term (current) use of aspirin; Z79.899 Other long term (current) drug therapy; Z87.891 Personal history of nicotine dependence
CPT/HCPCS: 74176; 74177; 80048; 80076; 81001; 83690; 85025; 96365; 96366; 96375; 96376; 99283; J7030; Q9967; A4216; J2405

== ENCOUNTER 2023-10-25 10:52 | Emergency (ER) | payer MEDICARE, OTHER, SELFPAY ==
[2023-10-25 10:54] VITALS: BP 138/82; PULSE 76; RESP 14; TEMP 36.7; O2SAT 98; BMI 21.2
--- NOTE | 2023-10-25 11:10 | EX.ED.DYSGE1 ---
HPI History of Present Illness Chief Complaint: Abd Pain Detail of Chief Complaint: Sent to ER by office staff Informant: patient and spouse/S.O. Onset/Context/Timing Onset: - (Constipation past . Took laxative Sunday. Good results.) Timing: Continuous and Waxes and wanes Quality: Patient presently has no abdominal pain. Location: He has a ventral incisional recurrent hernia that is reducible. Current Severity: Gone Maximum Severity: Mild (Discomfort prior to relief with laxative) Worsened by: Unknown Relieved by: Laxative Associated Symptoms Associated Symptoms: None Narrative Narrative: Patient is an 82-year-old male. He is status post appendectomy, cholecystectomy, coronary artery bypass surgery who was sent in because of abdominal hernia. Patient denies nausea or vomiting. Patient did have constipation until he took a laxative Sunday evening. He states he had very good results on Sunday. He still had watery stools on Sunday and his stools are still very soft mushy today. He has not noted any blood or mucus in his stool. His stool was not black or maroon in color. He presently has no symptoms. He is uncertain why he was sent to the emergency department. Patient denies thirst dry mouth. Patient denies orthostatic symptoms. had to supplement history because he was confused on dates. This raises concern for possible reliability. Prior similar symptoms: Yes Recent Illness/Hospitalization: No [facility] Medical History Atherosclerosis of coronary artery of [place] heart without angina pectoris Hiatal hernia Hypothyroidism Delcid's esophagus GERD (gastroesophageal reflux disease) DDD (degenerative disc disease), lumbar Home Medications ?Medication ?Instructions ?Recorded ?Last Taken ?Type acetaminophen 325 mg tablet 650 mg PO Q4H PRN Pain Or Fever 12/09/18 Unknown History aspirin 81 mg tablet,delayed 81 mg PO DAILY 12/09/18 Unknown History release (Adult Aspirin Regimen) lisinopril 10 mg tablet 10 mg PO DAILY bp 12/09/18 Unknown History magnesium oxide 400 mg PO DAILY 12/09/18 Unknown History metoprolol succinate 25 mg 75 mg PO BID bp 12/09/18 Unknown History tablet,extended release 24 hr multivitamin 1 tab PO QAM 12/09/18 Unknown History pantoprazole 40 mg tablet,delayed 40 mg PO BID 12/09/18 Unknown History release sennosides 8.6 mg-docusate sodium 1 tab PO QHS 12/09/18 Unknown History 50 mg tablet (Senna with Docusate Sodium) simvastatin 80 mg tablet 80 mg PO QHS cholesterol 12/09/18 Unknown History fluticasone propionate 115 2 inh inhalation BID sob 09/17/21 Unknown History mcg-salmeterol 21 mcg/actuation HFA inhaler (Advair HFA) fluticasone propionate 50 2 ea intranasal BID stuffiness 09/17/21 Unknown History mcg/actuation nasal spray,suspension ibuprofen 200 mg tablet 200 mg PO Q6H PRN pain #30 tabs 01/01/23 Unknown Rx levothyroxine 175 mcg tablet 175 mcg PO DAILY disorder of 06/30/23 Unknown History thyroid gland metoprolol tartrate 25 mg tablet 25 mg PO BID 06/30/23 Unknown History tamsulosin 0.4 mg capsule 0.4 mg PO QHS 06/30/23 Unknown History Allergy/AdvReac Type Severity Reaction Status Date / Time cefdinir (From Omnicef) Allergy Intermediate Diarrhea Verified 10/25/23 10:53 atorvastatin AdvReac Intermediate myalgias Verified 10/25/23 10:53 azithromycin (From Zithromax) AdvReac Nausea/Vom/ Verified 10/25/23 10:53 Diarrhea Family History Mother Emphysema of lung Father Emphysema of lung Surgical History Hx laparoscopic cholecystectomy History of repair of hiatal hernia History of umbilical hernia repair 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) History of back surgery (~04/25/17) Social History Smoking Status: Former smoker how long ago did patient quit smokin years ago alcohol intake: current alcohol intake frequency: a few times a week Alcohol type: beer substance use type: does not use ROS ROS ED Constitutional Constitutional ED: Denies chills, fever(s), subjective or sweats Eyes Eyes: Denies blurry vision or change in vision ENT ENT ED: Denies ear pain or rhinorrhea Cardiovascular Cardiovascular: Denies chest pain or palpitations Respiratory/Chest Respiratory/Chest: Denies cough or dyspnea Gastrointestinal Gastrointestinal: Reports abdominal pain, constipation, diarrhea and other Details: Detailed HPI narrative ; Denies melena, nausea or vomiting Genitourinary Genitourinary ED: Denies dysuria, hematuria or urinary frequency Musculoskeletal Musculoskeletal: Denies back pain Hematologic/Lymphatic Hematologic/Lymphatic: Reports systems reviewed and no addt'l complaints, except as documented EXAM Physical Exam Const Vital Signs: 10/25/23 10:54 Temperature 98.1 F Temperature Source Temporal Pulse Rate 76 Respiratory Rate 14 Blood Pressure 138/82 H Blood Pressure Mean 100 Pulse Ox 98 Oxygen Delivery Method Room Air Positive well nourished and well developed Constitutional Narrative: Patient is hard of hearing. General Appearance ED: well developed and NAD; Negative for cyanotic, diaphoretic or pallor HEENT Reports moist mucous membranes HEENT Narrative: Head is atraumatic normocephalic. Ears normal. Nares patent. Eyes PERRL and EOMs intact bilaterally General Eye ED: Negative for pale conjunctiva or scleral icterus Neck no lymphadenopathy, supple and no JVD Resp normal respiratory effort and clear to auscultation bilaterally Cardio regular rate, regular rhythm, S1 normal heart sound and S2 normal heart sound GI normal to inspection, nondistended, normoactive bowel sounds, non-tender, non-distended, hepatosplenomegaly and no masses GI Narrative: Patient has a reducible incisional supraumbilical midline/ventral hernia. There is no skin discoloration. Patient also has a horizontal infraumbilical incision. There is no defect appreciated. There is also a prior surgical repair left upper quadrant that is intact. Back/Spine no CVA tenderness Neuro oriented x3 and CN's II-XII intact bilaterally Sensorium / Orientation: alert Skin no rashes or lesions noted, no wounds and skin turgor normal General Skin Exam: Negative for jaundice or pallor MDM MDM MDM Narrative Medical decision making narrative: Since patient had significant mount of diarrhea will obtain BMP to assess electrolytes and specifically to evaluate for hypokalemia and renal function. In my opinion no other laboratory testing is needed and there is no indication for imaging. History & Record Review Additional record(s) reviewed:: Prior inpatient record (Cholecystectomy [address] Albert. Coronary bypass surgery July 2018 outside facility) and Prior outpatient record Lab Data Attestation: I reviewed the patient's lab results. Lab results narrative: Patient has mild hyponatremia. Patient has hyponatremia based on prior laboratory results. Glucose is slightly elevated. This was noted on prior labs as well. Labs: Laboratory Results - last 24 hr 10/25/23 11:25 Sodium 131 L Potassium 4.7 Chloride 101 Carbon Dioxide 24.0 Anion Gap 6 BUN 15 Creatinine 0.87 Estim Creat Clear Calc 64.18 Est GFR (MDRD) Af Amer 108 Est GFR (MDRD) Non-Af 90 BUN/Creatinine Ratio 17.2 Glucose 129 H Calcium 8.6 Treatment and Re-Evaluation :: In light of negative BMP will discharge to home. 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, Nondiabetic hyperglycemia Instructions: ED Hernia (Adult) Prescriptions: No Action lisinopril 10 mg tablet 10 mg PO DAILY aspirin [Adult Aspirin Regimen] 81 mg tablet,delayed release (DR/EC) 81 mg PO DAILY magnesium oxide 400 mg magnesium capsule 400 mg PO DAILY sennosides-docusate sodium [Senna with Docusate Sodium] 8.6-50 mg tablet 1 tab PO QHS acetaminophen 325 mg tablet 650 mg PO Q4H PRN (Reason: Pain Or Fever) multivitamin Tablet 1 tab PO QAM metoprolol succinate 25 mg tablet extended release 24 hr 75 mg PO BID simvastatin 80 mg tablet 80 mg PO QHS pantoprazole 40 mg tablet,delayed release (DR/EC) 40 mg PO BID fluticasone propion-salmeterol [Advair HFA] 115-21 mcg/actuation HFA aerosol inhaler 2 inh INHALATION BID Patient Comments: INHALE 2 PUFFS INSTRUCTED TWICE DAILY. RINSE MOUTH AFTER USE. fluticasone propionate 50 mcg/actuation spray,suspension 2 ea INTRANASAL BID Patient Comments: USE 2 SPRAYS IN EACH NOSTRIL ONCE DAILY. RINSE MOUTH AFTER USE. ibuprofen 200 mg tablet 200 mg PO Q6H PRN (Reason: pain) Qty: 30 0RF levothyroxine 175 mcg tablet 175 mcg PO DAILY tamsulosin 0.4 mg capsule 0.4 mg PO QHS metoprolol tartrate 25 mg tablet 25 mg PO BID Primary Care Provider: Wily Espinal Referrals: Wily Espinal MD [Primary Care Provider] - As Needed Activity Restrictions/Additional Instructions: If your hernia does not go back in or you have severe pain with nausea and vomiting you should return to the emergency department. Otherwise, you may follow-up with your doctor Print Language: [place] Disposition Disposition: Home, Self Care
[2023-10-25 11:48] LABS: Anion Gap 6 (5-15); BUN 15 mg/dL (7-18); BUN/Creat Ratio 17.2 RATIO (10-20); Calcium,Total 8.6 mg/dL (8.5-10.1); Chloride 101 mmol/L (98-107); Creatinine, Serum 0.87 mg/dL (0.70-1.30); EST Glomerular Filtration Rate 90 mL/min (>60); Est Glom Filt Rate - Afr Amer 108 mL/min (>60); Estimated Creatinine Clearance 64.18 ml/min; Glucose 129 mg/dL (74-106); Potassium 4.7 mmol/L (3.5-5.1); Sodium Level 131 mmol/L (136-145)
[2023-10-25 12:03] VITALS: BP 129/71; PULSE 98; RESP 14; TEMP 36.6; O2SAT 99
== END 2023-10-25 12:04 | disposition home or self-care (01) ==
PROVIDERS: Emergency Provider Emergency Medicine; PCP Family Medicine; Visit Provider Emergency Medicine
DX: K43.2 Incisional hernia without obstruction or gangrene (principal); K52.1 Toxic gastroenteritis and colitis; R73.9 Hyperglycemia, unspecified; I25.10 Atherosclerotic heart disease of native coronary artery without angina pectoris; Z95.1 Presence of aortocoronary bypass graft; Z90.49 Acquired absence of other specified parts of digestive tract; Z79.82 Long term (current) use of aspirin; Z79.899 Other long term (current) drug therapy; Z87.891 Personal history of nicotine dependence
CPT/HCPCS: 80048; 99283

== ENCOUNTER 2023-11-25 18:16 | Emergency (ER) | payer MEDICARE, OTHER, SELFPAY ==
[2023-11-25 18:17] VITALS: BP 153/82; PULSE 80; RESP 18; TEMP 36.6; O2SAT 99; BMI 24.8
--- NOTE | 2023-11-25 19:10 | CT_ITS ---
STUDY: CT Abdomen And Pelvis W/ Contrast Injection 11/25/2023 8:10 PM REASON FOR EXAM: Male, 82 years old. Abdominal pain RLQ abdominal pain Individualized dose optimization techniques were used for this CT. COMPARISON: 07.01.23 TECHNIQUE: CT Abdomen And Pelvis W/ Contrast Injection IV 100mL [id number] FINDINGS: There are atherosclerotic calcifications of visualized coronary arteries. 7 mm right lower lobe pulmonary nodule. 4 mm right middle lobe nodule. Median sternotomy wires. Normal liver. There are surgical clips in the gallbladder fossa consistent with a prior cholecystectomy. Normal spleen. Normal pancreas. Normal bilateral adrenal glands. 22 mm indeterminate hypodense lesion in the right kidney has decreased in size. Recommend routine follow-up or MRI with gadolinium to evaluate. There are hypodensities in the left kidney. These are consistent for cysts. No follow up required. There is a small hiatal hernia. Normal small intestine. Stool throughout the colon. There is non-visualization of the appendix. There are calcifications of the abdominal aorta. This is consistent for atherosclerotic disease. There is NO abdominal aortic aneurysm. Vascular workup can be obtained based on clinical correlation. Normal inferior vena cava. Subcentimeter mesenteric lymph nodes. Normal urinary bladder. Normal abdominal wall. There are diffuse degenerative changes of the visualized lumbar spine. Degenerative findings of the knees. Scoliosis of the lumbar spine. There is bilateral neural foraminal stenosis at L4-5 and L5-S1. CT/Abdomen/Pelvis W IV Cont ONLY IMPRESSION: (NOT LISTED IN ORDER OF SIGNIFICANCE) 22 mm indeterminate hypodense lesion in the right kidney has decreased in size. Recommend routine follow-up or MRI with gadolinium to evaluate. Right pulmonary nodules. Recommend dedicated CT chest to evaluate for other nodules. Other findings as above. Electronically Signed: John Lay MD at 20:15 EDT ,
--- NOTE | 2023-11-25 19:23 | ED.VIS.FEGU ---
HPI HPI - Female History of Present Illness Chief Complaint: Flank Pain Narrative Narrative: Chief complaint and HPI: Right flank/lower quadrant abdominal pain. 82-year-old male with history of CABG, hiatal hernia, previous inguinal hernia repair presents for evaluation of right flank/lower quadrant abdominal pain. Symptoms have been ongoing for 1 month. Patient states pain progressively worsened today. He denies any fever, chills, shortness of breath, chest pain, nausea, vomiting, diarrhea, dysuria, hematuria. Denies any penile or testicular pain. Denies any rectal pain. Denies any bloody bowel movements. Patient states at baseline he has intermittent constipation which he takes MiraLAX. Review of systems: See HPI Medications: As listed on the chart Allergies: As listed on the chart PFSH: Per chart Vital signs: As listed on the chart. Reviewed. Physical exam: Gen: A&O x3, NAD Head: Normocephalic, atraumatic Eyes: No sclera icterus, conjunctiva clear ENT: Moist mucous membranes Neck: Trachea midline, No JVD CV: RRR, no murmurs, no peripheral edema Resp: Lungs CTA BL, no w/r/c GI: Abd soft, non-distended, large midline hernia-nontender to palpation without skin change, mild tenderness to palpation in the right lower quadrant, no guarding, rebound, rigidity : No CVA tenderness, circumcised male, no penile or testicular pain or swelling Musc: Full ROM, no deformity Skin: Warm, dry Neuro: Alert, oriented, grossly intact, sensation intact Psych: Cooperative, appropriate mood and affect [facility] Medical History Atherosclerosis of coronary artery of [place] heart without angina pectoris Hiatal hernia Hypothyroidism Delcid's esophagus GERD (gastroesophageal reflux disease) DDD (degenerative disc disease), lumbar Home Medications ?Medication ?Instructions ?Recorded ?Last Taken ?Type acetaminophen 325 mg tablet 650 mg PO Q4H PRN Pain Or Fever 12/09/18 Unknown History aspirin 81 mg tablet,delayed 81 mg PO DAILY 12/09/18 Unknown History release (Adult Aspirin Regimen) lisinopril 10 mg tablet 10 mg PO DAILY bp 12/09/18 Unknown History magnesium oxide 400 mg PO DAILY 12/09/18 Unknown History metoprolol succinate 25 mg 75 mg PO BID bp 12/09/18 Unknown History tablet,extended release 24 hr multivitamin 1 tab PO QAM 12/09/18 Unknown History pantoprazole 40 mg tablet,delayed 40 mg PO BID 12/09/18 Unknown History release sennosides 8.6 mg-docusate sodium 1 tab PO QHS 12/09/18 Unknown History 50 mg tablet (Senna with Docusate Sodium) simvastatin 80 mg tablet 80 mg PO QHS cholesterol 12/09/18 Unknown History fluticasone propionate 115 2 inh inhalation BID sob 09/17/21 Unknown History mcg-salmeterol 21 mcg/actuation HFA inhaler (Advair HFA) fluticasone propionate 50 2 ea intranasal BID stuffiness 09/17/21 Unknown History mcg/actuation nasal spray,suspension ibuprofen 200 mg tablet 200 mg PO Q6H PRN pain #30 tabs 01/01/23 Unknown Rx levothyroxine 175 mcg tablet 175 mcg PO DAILY disorder of 06/30/23 Unknown History thyroid gland metoprolol tartrate 25 mg tablet 25 mg PO BID 06/30/23 Unknown History tamsulosin 0.4 mg capsule 0.4 mg PO QHS 06/30/23 Unknown History Allergy/AdvReac Type Severity Reaction Status Date / Time cefdinir (From Omnicef) Allergy Intermediate Diarrhea Verified 11/25/23 18:17 atorvastatin AdvReac Intermediate myalgias Verified 11/25/23 18:17 azithromycin (From Zithromax) AdvReac Nausea/Vom/ Verified 11/25/23 18:17 Diarrhea Family History Mother Emphysema of lung Father Emphysema of lung Surgical History Hx laparoscopic cholecystectomy History of repair of hiatal hernia History of umbilical hernia repair 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) History of back surgery (~04/25/17) Social History Smoking Status: Former smoker how long ago did patient quit smokin years ago alcohol intake: current alcohol intake frequency: a few times a week Alcohol type: beer substance use type: does not use EXAM Physical Exam Const Vital Signs: 11/25/23 18:17 11/25/23 20:16 Temperature 97.8 F 97.7 F L Temperature Source Oral Pulse Rate 80 84 Respiratory Rate 18 20 H Blood Pressure 153/82 H 140/86 H Blood Pressure Mean 105 104 Pulse Ox 99 96 Oxygen Delivery Method Room Air MDM MDM MDM Narrative Medical decision making narrative: 82-year-old male with history of hernia repairs including inguinal, ventral, hiatal hernia presents for evaluation of right lower quadrant abdominal pain. Symptoms have been ongoing for a month and worsened today. See physical exam findings. Differential diagnosis includes but is not limited to appendicitis, abscess, urolithiasis, UTI, colitis, musculoskeletal strain, hernia. Patient declined anything for pain. Abdominal pain workup ordered including CT abdomen pelvis. CBC without leukocytosis, patient has baseline anemia and thrombocytopenia. CMP shows chronic hyponatremia without LLOYD. Lactic acid unremarkable. No transaminitis. Lipase unremarkable. UA negative for UTI. CT abdomen and pelvis shows a 22 mm indeterminate hypodense lesion in the right kidney, has decreased in size. Recommend MRI follow-up. He has multiple pulmonary knowledge jewels, recommend CT chest for further workup outpatient. No acute intra-abdominal pathology otherwise. Nonvisualization of the appendix. Patient and family members were updated of all the results. At this point in time no clear etiology for patient's right lower quadrant abdominal pain. Patient's family member states that the patient had a known appendectomy. He states that the patient intermittently has right lower quadrant abdominal pain and had a workup for this in the past at [facility]. Patient was educated on Tylenol and Motrin as needed for pain. Follow-up with PCP. He confirmed understanding. Return precautions explained. He was educated that he needs to have further workup of his right pulmonary nodules and hypodensity on his kidney. Everyone confirmed understanding. Impression: 1. Right lower quadrant abdominal pain 2. Right-sided pulmonary nodules 3. Right renal hypodensity 4. Chronic anemia and thrombocytopenia 5. Chronic hyponatremia Lab Data Labs: Laboratory Results - last 24 hr 11/25/23 11/25/23 19:20 19:35 WBC 6.4 RBC 3.92 L Hgb 10.8 L Hct 33.9 L MCV 86.5 MCH 27.6 MCHC 31.9 L RDW Std Deviation 48.8 H RDW Coeff of Abena 15.3 H Plt Count 126 L MPV 11.2 Immature Gran % (Auto) 0.900 Neut % (Auto) 67.0 Lymph % (Auto) 9.2 L [place] % (Auto) 20.4 H Eos % (Auto) 2.2 Baso % (Auto) 0.3 Absolute Neuts (auto) 4.3 Absolute Lymphs (auto) 0.59 L Nucleated RBC % 0 Sodium 126 L Potassium 4.5 Chloride 97 L Carbon Dioxide 23.0 Anion Gap 6 BUN 14 Creatinine 0.86 Estim Creat Clear Calc 70.74 Est GFR (MDRD) Af Amer 110 Est GFR (MDRD) Non-Af 91 BUN/Creatinine Ratio 16.3 Glucose 103 Lactic Acid 1.2 Calcium 8.7 Total Bilirubin 0.50 AST 28 ALT 21 Alkaline Phosphatase 68 Total Protein 6.9 Albumin 3.8 Globulin 3.1 Albumin/Globulin Ratio 1.2 Lipase 52 Urine Color Yellow Urine Clarity Sl. Cloudy Urine pH 7.0 Ur Specific [place] 1.010 Urine Protein 15 H Urine Glucose (UA) Normal Urine Ketones Negative Urine Occult Blood Negative Urine Nitrite Negative Urine Bilirubin Negative Urine Urobilinogen Normal Ur Leukocyte Esterase 25 H Urine RBC 0 SEEN Urine WBC 0-5 SEEN Ur Squamous Epith Cells 0-5 SEEN Urine Bacteria RARE Urine Mucus 0 SEEN Radiography Diagnostic Testing: Clinical Impression(s) from Imaging Studies Abdomen/Pelvis CT 11/25/23 19:10 IMPRESSION: (NOT LISTED IN ORDER OF SIGNIFICANCE) 22 mm indeterminate hypodense lesion in the right kidney has decreased in size. Recommend routine follow-up or MRI with gadolinium to evaluate. Right pulmonary nodules. Recommend dedicated CT chest to evaluate for other nodules. Other findings as above. Electronically Signed: John Lay MD at 20:15 EDT , Discharge Plan Triage Chief Complaint: Flank Pain ED Provider: Tamir Lieberman Dx/Rx/DC Orders Clinical Impression: Abdominal pain of unknown etiology Instructions: ED Abdominal Pain Unkn Cause Male... Prescriptions: No Action lisinopril 10 mg tablet 10 mg PO DAILY aspirin [Adult Aspirin Regimen] 81 mg tablet,delayed release (DR/EC) 81 mg PO DAILY magnesium oxide 400 mg magnesium capsule 400 mg PO DAILY sennosides-docusate sodium [Senna with Docusate Sodium] 8.6-50 mg tablet 1 tab PO QHS acetaminophen 325 mg tablet 650 mg PO Q4H PRN (Reason: Pain Or Fever) multivitamin Tablet 1 tab PO QAM metoprolol succinate 25 mg tablet extended release 24 hr 75 mg PO BID simvastatin 80 mg tablet 80 mg PO QHS pantoprazole 40 mg tablet,delayed release (DR/EC) 40 mg PO BID fluticasone propion-salmeterol [Advair HFA] 115-21 mcg/actuation HFA aerosol inhaler 2 inh INHALATION BID Patient Comments: INHALE 2 PUFFS INSTRUCTED TWICE DAILY. RINSE MOUTH AFTER USE. fluticasone propionate 50 mcg/actuation spray,suspension 2 ea INTRANASAL BID Patient Comments: USE 2 SPRAYS IN EACH NOSTRIL ONCE DAILY. RINSE MOUTH AFTER USE. ibuprofen 200 mg tablet 200 mg PO Q6H PRN (Reason: pain) Qty: 30 0RF levothyroxine 175 mcg tablet 175 mcg PO DAILY tamsulosin 0.4 mg capsule 0.4 mg PO QHS metoprolol tartrate 25 mg tablet 25 mg PO BID Primary Care Provider: Wily Espinal Referrals: Wily Espinal MD [Primary Care Provider] - 3-5 Days Activity Restrictions/Additional Instructions: Tylenol as needed for pain. You have a hyperdense lesion in the right kidney radiology recommends MRI for further evaluation outpatient. You have multiple pulmonary nodules. Will need CT to evaluate these outpatient. Return back to the ED if symptoms change or worsen Print Language: Latvian Disposition Disposition: Home, Self Care Discharge Date/Time: 11/25/23 20:46
[2023-11-25 19:42] LABS: Mucous, Urine 0 SEEN /hpf (<or=2+); Red Blood Cells-Urine 0 SEEN /hpf (0-5)
[2023-11-25 19:43] LABS: Color, Urine Yellow (Yellow); Glucose, Dipstick Normal (Normal); Ketone-Dipstick Negative (Negative); Leukocyte Esterase-Dipstick 25 /ul (Negative); Nitrite-Dipstick Negative (Negative); Occult Blood-Urine Negative /ul (Negative); Protein-Dipstick 15 mg/dl (Negative); Urine Bilirubin Dipstick Negative (Negative); Urine Clarity Sl. Cloudy (Clear); Urine Urobilinogen Normal (Normal)
[2023-11-25 19:50] LABS: ALB/GLOB Ratio 1.2 RATIO (0.9-2.4); AST(SGOT) 28 U/L (15-37); Absolute Lymphocyte Count 0.59 X10^3/uL (0.83-4.51); Absolute Neutrophil Count 4.3 X10^3/uL (2.0-7.7); Alanine Aminotransfer ALT/SGPT 21 U/L (16-61); Albumin, Serum 3.8 g/dL (3.2-5.0); Alkaline Phosphatase 68 U/L (45-117); Anion Gap 6 (5-15); BUN 14 mg/dL (7-18); BUN/Creat Ratio 16.3 RATIO (10-20); Basophil# 0.02 X10^3/uL; Basophil% 0.3 % (0-1); Calcium,Total 8.7 mg/dL (8.5-10.1); Chloride 97 mmol/L (98-107); Creatinine, Serum 0.86 mg/dL (0.70-1.30); EST Glomerular Filtration Rate 91 mL/min (>60); Eosinophil# 0.14 X10^3/uL; Eosinophils% 2.2 % (0-5); Est Glom Filt Rate - Afr Amer 110 mL/min (>60); Estimated Creatinine Clearance 70.74 ml/min; Globulin 3.1 g/dL (2.2-4.2); Glucose 103 mg/dL (74-106); Hematocrit 33.9 % (40-54); Hemoglobin 10.8 g/dL (13.0-16.5); Lipase 52 U/L (13-75); Lymphocyte # 0.59 X10^3/ul (0.83-4.51); Lymphocyte % 9.2 % (19-41); Mean Corp Hgb Conc 31.9 g/dL (32-36); Mean Corpuscular Hgb 27.6 pg (27.0-32.0); Mean Corpuscular Volume 86.5 fL (80-94); Mean Platelet Vol. 11.2 fl (6.2-12.0); Monocyte# 1.31 X10^3/uL; Monocyte% 20.4 % (0-10); NRBC Flagged by Analyzer 0 % (0-5); Neutrophil # 4.29 X10^3/uL (2.7-7.7); POSITIVE DIFFERENTIAL YES; Platelet Count 126 K/mm3 (150-450); Potassium 4.5 mmol/L (3.5-5.1); Protein, Total 6.9 g/dL (6.4-8.2); RBC Distribution Width CV 15.3 % (11.6-14.6); RBC Distribution Width SD 48.8 fl (35.1-43.9); Red Blood Count 3.92 M/mm3 (4.6-6.2); Sodium Level 126 mmol/L (136-145); White Blood Count 6.4 K/mm3 (4.4-11.0)
[2023-11-25 19:53] LABS: Bacteria RARE /hpf (None Seen); Squamous Epithelial Cells - UA 0-5 SEEN /hpf (0-5); White Blood Cells 0-5 SEEN /hpf (0-5)
[2023-11-25 19:58] LABS: Lactic Acid 1.2 mmol/L (0.4-1.9)
[2023-11-25 20:16] VITALS: BP 140/86; PULSE 84; RESP 20; TEMP 36.5; O2SAT 96
== END 2023-11-25 20:46 | disposition home or self-care (01) ==
PROVIDERS: Emergency Provider Surgery; PCP Family Medicine; Visit Provider Surgery
DX: R10.31 Right lower quadrant pain (principal); N28.9 Disorder of kidney and ureter, unspecified; R91.8 Other nonspecific abnormal finding of lung field; D64.9 Anemia, unspecified; D69.6 Thrombocytopenia, unspecified; E87.1 Hypo-osmolality and hyponatremia; I25.10 Atherosclerotic heart disease of native coronary artery without angina pectoris; Z95.1 Presence of aortocoronary bypass graft; Z79.82 Long term (current) use of aspirin; Z79.899 Other long term (current) drug therapy; Z87.891 Personal history of nicotine dependence
CPT/HCPCS: 74177; 80053; 81001; 83605; 83690; 85025; 99283; Q9967; A4216

== ENCOUNTER 2024-04-25 21:38 | Emergency (ER) | payer MEDICARE, OTHER, SELFPAY ==
[2024-04-25 21:39] VITALS: BP 124/67; PULSE 78; RESP 16; TEMP 36.8; O2SAT 98
--- NOTE | 2024-04-25 22:53 | CT_ITS ---
EXAM: BRAIN/HEAD WITHOUT CONTRAST CLINICAL HISTORY: FALL FINDINGS: Mucosal thickening of the right maxillary sinus consistent with chronic sinusitis. No bony abnormality. Moderate diffuse cerebral atrophy. Confluent areas of decreased attenuation within the periventricular white matter consistent with ischemic white matter changes. No area of increased attenuation to suggest acute hemorrhage. CT/Brain/Head without Contrast IMPRESSION: Chronic involutional changes of the brain. No acute intracranial hemorrhage. Reading Location: [id number]
[2024-04-25 23:30] VITALS: BP 159/89; PULSE 99; RESP 17; TEMP 36.6; O2SAT 97
[2024-04-25 23:37] VITALS: BMI 25.9
--- NOTE | 2024-04-25 23:59 | RAD_ITS ---
PROCEDURE: SHOULDER MIN 2 VIEWS REASON FOR EXAM: INJURY/PAIN TECHNIQUE: Four views left shoulder COMPARISON: None. FINDINGS: LEFT SHOULDER: No fracture or dislocation. RAD/Shoulder min 2 Views IMPRESSION: No fracture or dislocation. Reading Location: [id number]
[2024-04-26 01:00] VITALS: BP 160/94; PULSE 96; RESP 20; O2SAT 95
[2024-04-26] MEDS: Lidocaine 1% (20 ml mdv) 20 ML Vial INFILT (02:36)
[2024-04-26 03:00] VITALS: BP 162/83; PULSE 96; RESP 17; O2SAT 97
--- NOTE | 2024-04-26 04:49 | EX.ED.GENINJ ---
HPI History of Present Illness Chief Complaint: Fall Detail of Chief Complaint: Mechanical fall with injury to head, right and left hand, left knee and lef Informant: patient, spouse/S.O. and family Limited: dementia Onset/Context/Timing Onset: Today and Hours Mechanism/Context: Blunt Injury and Fall Location of pain/injuries: - (Left forehead, left shoulder, left and right hand and left knee) Quality of Pain: Dull and Aching Location: Left shoulder and head Current Severity: Mild Maximum Severity: Moderate Worsened by: Shoulder is worse with movement Relieved by: Nothing Associated Symptoms Associated Symptoms: Positive for Amnesia and - (Patient was dazed. He is on aspirin.); Negative for Parasthesias, Weakness, Loss of function, Inability to ambulate or Loss of consciousness Narrative Narrative: Patient is a 83-year-old male who had a fall. He sustained injury to his forehead on the left, left and right hand (radial side of the PIP joint right index finger, hyperthenar eminence of the left palm and tip of the left index finger and ring finger) swelling and contusion of the left shoulder. Patient denies neck pain. Denies paresthesia, anesthesia or motor weakness. Patient denies cardiac or respiratory symptoms. Patient denies GI symptoms and specifically black or maroon-colored stool. Patient is not on any other antithrombotic except aspirin and is not on an anticoagulant. He has a history of COPD, dyslipidemia, hypertension, paroxysmal atrial fibrillation after coronary bypass surgery, acquired hypothyroidism and cholecystitis status postcholecystectomy. Prior similar symptoms: No Recent Illness/Hospitalization: No [facility] Medical History Paroxysmal atrial fibrillation Mild intermittent asthma without complication Shortness of breath Peptic ulcer, site unspecified, unspecified as acute or chronic, without hemorrhage or perforation Hyperlipidemia Chronic fatigue, unspecified Essential hypertension Constipation CAD (coronary artery disease) BPH associated with nocturia Delcid's esophagus without dysplasia Acquired hypothyroidism Abdominal wall hernia Atherosclerosis of coronary artery of [place] heart without angina pectoris Hiatal hernia Hypothyroidism Delcid's esophagus GERD (gastroesophageal reflux disease) DDD (degenerative disc disease), lumbar Home Medications ?Medication ?Instructions ?Recorded ?Last Taken ?Type acetaminophen 325 mg tablet 650 mg PO Q4H PRN Pain Or Fever 12/09/18 Unknown History aspirin 81 mg tablet,delayed 81 mg PO DAILY 12/09/18 Unknown History release (Adult Aspirin Regimen) magnesium oxide 400 mg PO DAILY 12/09/18 Unknown History multivitamin 1 tab PO QAM 12/09/18 Unknown History pantoprazole 40 mg tablet,delayed 40 mg PO BID 12/09/18 Unknown History release simvastatin 80 mg tablet 80 mg PO QHS cholesterol 12/09/18 Unknown History fluticasone propionate 115 2 inh inhalation BID sob 09/17/21 Unknown History mcg-salmeterol 21 mcg/actuation HFA inhaler (Advair HFA) fluticasone propionate 50 2 ea intranasal BID stuffiness 09/17/21 Unknown History mcg/actuation nasal spray,suspension ibuprofen 200 mg tablet 200 mg PO Q6H PRN pain #30 tabs 01/01/23 Unknown Rx levothyroxine 175 mcg tablet 175 mcg PO DAILY disorder of 06/30/23 Unknown History thyroid gland metoprolol tartrate 25 mg tablet 25 mg PO BID 06/30/23 Unknown History tamsulosin 0.4 mg capsule 0.4 mg PO QHS 06/30/23 Unknown History albuterol sulfate 90 mcg/actuation 2 puff inhalation Q4-6H PRN 04/15/24 Unknown History aerosol inhaler shortness of breath or wheezing Allergy/AdvReac Type Severity Reaction Status Date / Time cefdinir (From Omnicef) Allergy Intermediate Diarrhea Verified 04/25/24 21:39 atorvastatin AdvReac Intermediate myalgias Verified 04/25/24 21:39 azithromycin (From Zithromax) AdvReac Nausea/Vom/ Verified 04/25/24 21:39 Diarrhea Family History Mother Emphysema of lung Father Emphysema of lung Surgical History History of ventral hernia repair Hx laparoscopic cholecystectomy History of repair of hiatal hernia History of umbilical hernia repair 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) History of back surgery (~04/25/17) Social History Smoking Status: Former smoker quit date: 02/12/81 pack-years: 13 Tobacco: How many years used: 27 Electronic Cigarette Use: not used how long ago did patient quit smokin years ago alcohol intake: former substance use type: does not use ROS ROS ED Constitutional Constitutional ED: Denies chills, fever(s), subjective, sweats or weight loss Eyes Eyes: Denies blurry vision or change in vision ENT ENT ED: Denies ear pain, rhinorrhea or sore throat Cardiovascular Cardiovascular: Denies chest pain, palpitations or paroxysmal nocturnal dyspnea Respiratory/Chest Respiratory/Chest: Denies cough, dyspnea, dyspnea on exertion or paroxysmal nocturnal dyspnea Gastrointestinal Gastrointestinal: Denies abdominal pain, nausea or vomiting Genitourinary Genitourinary ED: Denies hematuria Musculoskeletal Musculoskeletal: Denies back pain or neck pain Integumentary Reports Abrasions Neurologic Neurologic: Reports headache(s); Denies paresthesias Endocrine Endocrinology: Denies cold intolerance or heat intolerance Hematologic/Lymphatic Hematologic/Lymphatic: Reports easy bruising; Denies easy bleeding EXAM Physical Exam Const Vital Signs: 04/25/24 21:39 04/25/24 23:30 04/25/24 23:34 Temperature 98.2 F 98 F Temperature Source Oral Oral Pulse Rate 78 99 Respiratory Rate 16 17 Respiratory Effort Normal Respiratory Depth Normal Respiratory Pattern Normal Blood Pressure 124/67 H 159/89 H Blood Pressure Mean 86 112 Pulse Ox 98 97 Oxygen Delivery Method Room Air Room Air 04/26/24 01:00 04/26/24 03:00 Temperature Temperature Source Pulse Rate 96 96 Respiratory Rate 20 H 17 Respiratory Effort Respiratory Depth Respiratory Pattern Blood Pressure 160/94 H 162/83 H Blood Pressure Mean 116 109 Pulse Ox 95 97 Oxygen Delivery Method Room Air Room Air Positive well nourished and well developed General Appearance ED: well developed and NAD HEENT HEENT Narrative: Abrasion left side of the forehead. There is no palp depression. There is no clinic signs of basilar skull fracture. There is no septal deviation hematoma. There is no dental trauma. Posterior pharynx is normal. Eyes PERRL and EOMs intact bilaterally General Eye ED: Yes other Other Details: There is no subconjunctival hemorrhage. There is no nystagmus. Neck full ROM General: Negative for tenderness Chest Wall inspection of chest normal and palpation of chest normal Resp normal respiratory effort and clear to auscultation bilaterally Cardio regular rhythm, S1 normal heart sound and S2 normal heart sound; Negative for no murmurs Rate: regular rate GI normal to inspection, nondistended, normoactive bowel sounds, non-tender, non-distended and no masses Back/Spine normal to inspection and no thoracic nor lumbar tenderness Extremity Extremity Narrative: Skin avulsion radial side PIP joint of the right index finger. Extensor and flexor mechanism intact. There is no subungual hematoma noted. There is no neurovascular compromise Patient has a curvilinear laceration hypothenar eminence of the left palm. This measures 2 cm. He also has abrasion tip of the left index and ring finger. There is no subungual hematoma. The extensor and flexor mechanism is intact. Examination shoulder reveals swelling. He is unable to AB duct. He complains of significant pain with movement. Patient has abrasion over the left patella. He is able to flex and extend. There is no laxity varus valgus stress testing. There is no effusion. The patella is not ballotable. General Extremety ED: Yes tenderness; Negative for deformity General Extremity: Negative for deformity Neuro No oriented x3, CN's II-XII intact bilaterally, moves all extremities, no focal motor deficits and no sensory deficits noted Nicholas Coma Scale: document GCS findings Spontaneous Obeys Commands Sensorium / Orientation: alert Motor Exam: strength 5/5 throughout Deep Tendon Reflexes: Rt Triceps (C7): 2+, Lt Triceps (C7): 2+, Rt Biceps (C5, C6): 2+, Lt Biceps (C5, C6): 2+, Rt Brachioradialis (C6): 2+, Lt Brachioradialis (C6): 2+, Rt Patellar (L4): 2+, Lt Patellar (L4): 2+, Rt Ankle (S1): 2+ and Lt Ankle (S1): 2+ Deep Tendon Reflexes Back: Rt Patellar (L4): 2+, Lt Patellar (L4): 2+, Rt Ankle (S1): 2+ and Lt Ankle (S1): 2+ Plantar Reflex: Downgoing: bilateral Psych mental status grossly normal and thought process normal Skin no rashes or lesions noted, skin turgor normal and No no jaundice Skin Narrative: Documented other portions of the EMR. PROC Procedures Other Procedures Procedure(s): The laceration palm of left hand was anesthetized with 1% lidocaine for local infiltration. Wound was irrigated with 125 cc of normal saline. The wound was then closed using 5-0 Ethilon. A total of 5 stitches placed. Patient tolerated procedure well. MDM MDM MDM Narrative Medical decision making narrative: Per the [place]ian CT head rule imaging of the head is indicated. CT of the head was obtained. Because of his limited range of motion of the shoulder shoulder x-ray was obtained. Differential diagnosis includes epidural hematoma, subdural hematoma, traumatic subarachnoid hemorrhage and parenchymal contusion. Differential for the shoulder would include fracture, fracture dislocation, rotator cuff injury with fracture or isolated. Radiography Chest X-Ray - ED: Read by ED Physician (Three-view x-ray of the left shoulder independently interpreted by me at 2340 reveals no fracture, subluxation or dislocation. There are some minimal arthritic changes. There is no widening of the AC joint.) Diagnostic Testing: Clinical Impression(s) from Imaging Studies Brain CT 04/25/24 22:53 IMPRESSION: Chronic involutional changes of the brain. No acute intracranial hemorrhage. Reading Location: [facility] Shoulder X-Ray 04/25/24 23:59 IMPRESSION: No fracture or dislocation. Reading Location: [id number] Treatment and Re-Evaluation Narrative: Since patient is not able to abduct past 40 degrees suspect he has a rotator cuff tear. He was referred to Dr. Izaiah Armendariz who is on-call for orthopedics no doc. He is placed in a sling. Discharge Plan Triage Chief Complaint: Fall ED Provider: Dave Velasco Dx/Rx/DC Orders Clinical Impression: Concussion with brief LOC, Forehead contusion, Forehead abrasion, Abrasion, left knee, initial encounter, Abrasion of right index finger, initial encounter, Abrasion of left index finger, Laceration of left hand Instructions: ED Abrasion, ED Concussion, ED Laceration, Hand: All Closures Prescriptions: No Action aspirin [Adult Aspirin Regimen] 81 mg tablet,delayed release (DR/EC) 81 mg PO DAILY magnesium oxide 400 mg magnesium capsule 400 mg PO DAILY acetaminophen 325 mg tablet 650 mg PO Q4H PRN (Reason: Pain Or Fever) multivitamin Tablet 1 tab PO QAM simvastatin 80 mg tablet 80 mg PO QHS albuterol sulfate 90 mcg/actuation HFA aerosol inhaler 2 puff inhalation Q4-6H PRN (Reason: shortness of breath or wheezing) pantoprazole 40 mg tablet,delayed release (DR/EC) 40 mg PO BID fluticasone propion-salmeterol [Advair HFA] 115-21 mcg/actuation HFA aerosol inhaler 2 inh INHALATION BID Patient Comments: INHALE 2 PUFFS INSTRUCTED TWICE DAILY. RINSE MOUTH AFTER USE. fluticasone propionate 50 mcg/actuation spray,suspension 2 ea INTRANASAL BID Patient Comments: USE 2 SPRAYS IN EACH NOSTRIL ONCE DAILY. RINSE MOUTH AFTER USE. ibuprofen 200 mg tablet 200 mg PO Q6H PRN (Reason: pain) Qty: 30 0RF levothyroxine 175 mcg tablet 175 mcg PO DAILY tamsulosin 0.4 mg capsule 0.4 mg PO QHS metoprolol tartrate 25 mg tablet 25 mg PO BID Primary Care Provider: Wily Espinal Referrals: Wily Espinal MD [Primary Care Provider] - 10 Day for suture removal Activity Restrictions/Additional Instructions: 1. Apply bacitracin ointment twice a day to the abrasions of your forehead, hand and knee. 2. Sutures to be removed in 10 days Print Language: [place]ijani Disposition Disposition: Home, Self Care
[2024-04-26 05:00] VITALS: BP 126/77; PULSE 88; RESP 16; TEMP 36.7; O2SAT 98
--- NOTE | 2024-04-26 05:31 | NURSING ---
Sling applied. Family educated how to use and verbalized understanding.
== END 2024-04-26 05:32 | disposition home or self-care (01) ==
PROVIDERS: Emergency Provider Emergency Medicine; PCP Family Medicine; Visit Provider Emergency Medicine
DX: S06.0X1A Concussion with loss of consciousness of 30 minutes or less, initial encounter (principal); F03.90 Unspecified dementia, unspecified severity, without behavioral disturbance, psychotic disturbance, mood disturbance, and anxiety; J44.9 Chronic obstructive pulmonary disease, unspecified; I48.0 Paroxysmal atrial fibrillation; E78.5 Hyperlipidemia, unspecified; Z79.82 Long term (current) use of aspirin; I25.10 Atherosclerotic heart disease of native coronary artery without angina pectoris; S60.411A Abrasion of left index finger, initial encounter; S80.212A Abrasion, left knee, initial encounter; S60.410A Abrasion of right index finger, initial encounter; S00.81XA Abrasion of other part of head, initial encounter; I10 Essential (primary) hypertension; W19.XXXA Unspecified fall, initial encounter; Z87.891 Personal history of nicotine dependence; S00.83XA Contusion of other part of head, initial encounter; S61.412A Laceration without foreign body of left hand, initial encounter; Z90.49 Acquired absence of other specified parts of digestive tract; Z79.899 Other long term (current) drug therapy; K21.9 Gastro-esophageal reflux disease without esophagitis; E03.9 Hypothyroidism, unspecified; Z79.890 Hormone replacement therapy; N40.0 Benign prostatic hyperplasia without lower urinary tract symptoms
CPT/HCPCS: 12001; 70450; 73030; 99285

== ENCOUNTER → 2024-05-22 | Outpatient (CLI) | payer MEDICARE, OTHER, SELFPAY ==
--- NOTE | 2024-05-22 06:51 | ECHOCS_ITS ---
Reason For Study Reason For Study: CAD Procedure This was a 2D Doppler, Color Flow transthoracic echocardiogram. The study was technically difficult. Exam performed in department. Left Ventricle Normal size and thickness. The LV systolic function is normal. EF is 65 %. Diastolic function is indeterminate. Right Ventricle Normal right ventricle. Atria The left atrium is moderately enlarged. Normal right atrium. Mitral Valve Moderate mitral annular calcification. Mild (1+) mitral valve insufficiency. Tricuspid Valve Trivial tricuspid valve insufficiency. Right ventricular systolic pressure estimated to be 46 mmHg. Aortic Valve Trisinus/trileaflet aortic valve. Aortic sclerosis, no stenosis. Trivial aortic valve insufficiency. Pulmonic Valve The pulmonic valve is not well visualized. Great Vessels Normal sized aortic root. Pericardium/Pleural No pericardial effusion. Medication Diluted definity 1.0ml given slow IV push to enhance endocardial definition. MMode/2D Measurements & Calculations LVIDd: 4.6 cm IVSd: 0.97 cm LVOT diam: 2.2 cm LVIDs: 2.9 cm LVPWd: 0.96 cm RVDd: 3.5 cm FS: 36.8 % LVOT area: 3.9 cm2 Ao root diam: 3.8 cm LAV(MOD-bp): 60.6 ml LVAd ap4: 32.5 cm2 LAV(MOD-bp) Indexed: 31.8 ml/m2 LVLd ap4: 7.9 cm LAV(MOD-sp2): 63.0 ml EDV(MOD-sp4): 112.4 ml LAV(MOD-sp4): 59.2 ml EDV(sp4-el): 113.2 ml LVAs ap4: 16.1 cm2 LVLs ap4: 6.4 cm ESV(MOD-sp4): 34.4 ml ESV(sp4-el): 34.3 ml EF(MOD-sp4): 69.4 % EF(sp4-el): 69.7 % LVAd ap2: 21.8 cm2 SV(MOD-sp4): 78.0 ml SV(MOD-sp2): 38.7 ml LVLd ap2: 7.0 cm SI(MOD-sp4): 41.0 ml/m2 SI(MOD-sp2): 20.3 ml/m2 EDV(MOD-sp2): 57.0 ml EDV(sp2-el): 58.0 ml LVAs ap2: 11.2 cm2 LVLs ap2: 5.8 cm ESV(MOD-sp2): 18.2 ml ESV(sp2-el): 18.4 ml EF(MOD-sp2): 68.0 % SV(sp4-el): 78.9 ml LA dimension(2D): 4.7 cm LA A4 area: 20.8 cm2 RA A4 area: 13.7 cm2 TAPSE: 1.6 cm Time Measurements MV dec time: 0.15 sec Doppler Measurements & Calculations MV E max juan: 111.2 cm/sec Lat Peak E' Juan: 8.5 cm/sec Med Peak E' Juan: 6.6 cm/sec MV A max juan: 133.1 cm/sec E/E' lat: 13.1 E/E' med: 16.8 MV E/A: 0.84 Ao V2 max: 175.6 cm/sec LV V1 max: 117.6 cm/sec MV dec slope: 735.2 cm/sec2 Ao max P.3 mmHg LV V1 max P.5 mmHg Ao V2 mean: 114.0 cm/sec LV V1 mean P.0 mmHg Ao mean P.1 mmHg LV V1 mean: 80.3 cm/sec Ao V2 VTI: 34.8 cm LV V1 VTI: 25.5 cm AV (velocity ratio): 0.73 EPI(I,D): 2.8 cm2 EPI(V,D): 2.6 cm2 SV(LVOT): 98.1 ml PA V2 max: 124.1 cm/sec TR max juan: 318.8 cm/sec TR max P.7 mmHg ECHO/Echo Complete W/ Contrast Interpretation Summary The LV systolic function is normal. EF is 65 %. Diastolic function is indeterminate. The left atrium is moderately enlarged. Moderate mitral annular calcification. Mild (1+) mitral valve insufficiency. Right ventricular systolic pressure estimated to be 46 mmHg. Aortic sclerosis, no stenosis. Ordering Physician: Stacey Daly Referring Physician: MD Kylie Wily Performed By: Tiffanie Morse JERRELL
--- NOTE | 2024-05-22 08:55 | STRESSREP ---
Stress Test Report Date: 05/22/2024 Procedure: Pharmacologic stress nuclear imaging study Indications: Coronary artery disease Consent: Per the patient Procedure: The patient underwent pharmacologic (Regadenoson 0.4mg ) evaluation with a peak heart rate of 102 beats per minute (73%predicted maximal heart rate) and a peak blood pressure of 148/80 mmHg. The baseline ECG demonstrated sinus rhythm. The peak pharmacologic ECG demonstrated no ischemic changes. There were no cardiac dysrhythmias pretest, during pharmacologic infusion, or recovery. There was no complaint of chest discomfort during pharmacologic infusion or recovery. The patient was injected with 11.2 millicuries of technetium 99m Cardiolite and subsequently rest SPECT Cardiolite nuclear imaging was obtained in the horizontal long, vertical long, and short axis views. The patient underwent pharmacologic (Regadenoson) evaluation. The patient was injected with 34.6 millicuries of technetium 99m Cardiolite and subsequently stress SPECT Cardiolite nuclear imaging was obtained in the horizontal long, vertical long, and short axis views. A gated Cardiolite study at peak stress was obtained. The examination was stopped secondary to completion of protocol. Rest and stress SPECT Cardiolite nuclear imaging status post realignment, normalization, and attenuation correction demonstrate mildly reversible perfusion defect of the distal anterior wall and apex suggestive of ischemia. There is end systolic thickening and brightening. The gated Cardiolite study demonstrates myocardial thickening and inward wall motion. The reported LVEF is 82%. Impression: 1. Pharmacologic (Regadenoson) evaluation 2. Peak pharmacologic ECG with no diagnostic ischemic changes. 3. There were no cardiac dysrhythmias pretest, during pharmacologic infusion, or recovery. 5. Mild reversible perfusion defect of the distal anterior wall and apex suggestive of ischemia. 6. The gated Cardiolite study reports an LVEF of 82%. This note was generated with Ziploopation software. It may contain incorrect words, spelling, and punctuation that were not noted in checking the note before signing.
== END | disposition home or self-care (01) ==
LOC: CVS 06:50
PROVIDERS: PCP Family Medicine; Referring Provider Internal Medicine Cardiovascular Disease; Visit Provider Internal Medicine Cardiovascular Disease
DX: I25.10 Atherosclerotic heart disease of native coronary artery without angina pectoris (principal); Z86.79 Personal history of other diseases of the circulatory system
CPT/HCPCS: 78452; 93017; 93306; A9500; Q9957; A4216; C8929; J2785

== ENCOUNTER 2024-07-03 11:29 | Observation (INO) | payer MEDICARE, OTHER, SELFPAY ==
--- NOTE | 2024-06-23 10:16 | HP.PCM_ITS ---
History and Physical Date of Admission: 07/03/24 This is an 83-year-old male who presents to the cardiac [facility] today following an abnormal stress test. He has a history of coronary artery disease status post CABG in 2019. According to him, he received 3 grafts to his coronary arteries. Also history of dyslipidemia and COPD. 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 Patient is also scheduled to undergo a hernia repair surgery for the end of this month. We are asked to evaluate his cardiac risk for the proposed procedure. Patient denies any chest pains either at rest or with exertion. For the past couple of years, he has been feeling short of breath with exertion. According to him, it is progressively gotten worse. Moderate exertion makes him short of breath. Denies any orthopnea. No PND. Denies any ankle edema. Denies any palpitations. Occasional lightheadedness. No syncope or presyncope. 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 CAD (coronary artery disease) Chronic fatigue, unspecified Constipation DDD (degenerative disc disease), lumbar Essential hypertension GERD (gastroesophageal reflux disease) Hiatal hernia Hyperlipidemia Hypothyroidism Mild intermittent asthma without complication Paroxysmal atrial fibrillation Peptic ulcer, site unspecified, unspecified as acute or chronic, without hemorrhage or perforation Shortness of breath Surgical History History of back surgery (~04/25/17) 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) History of repair of hiatal hernia History of umbilical hernia repair History of ventral hernia repair Hx laparoscopic cholecystectomy Family History Mother Emphysema of lungFather Emphysema of lung Social History Smoking Status: Former smoker quit date: 02/12/81 pack-years: 13 Tobacco: How many years used: 27 Electronic Cigarette Use: not used how long ago did patient quit smokin years ago alcohol intake: former substance use type: does not use ROS Const Const: Positive for fatigue and daytime sleepiness; Negative for weakness, headache(s) or weight gain ENT ENT: Positive for dizziness; Negative for headache(s), Nosebleed/epistaxis or balance problems Cardio Chest Pain: No Palpitations: No Edema: None Muscle aches with walking: None Resp Respiratory: Positive for SOB with activity and SOB at rest; Negative for SOB orthopnea\SOB lying down GI GI: Positive for nausea (in AM); Negative vomiting or heartburn Musc Musc: Positive for joint pain (chronic, arthritis); Negative for muscle aches/ myalgia, muscle weakness or balance problems Neuro Neuro: Positive for dizziness; Negative for lightheadedness, near syncope, syncope, headache(s) or weakness Endo Endo: Positive for fatigue Cardiology Exam Const Appearance: comfortable and no acute distress Nutritional Appearance: well nourished Neck Neck: no JVD Carotids: Negative bruit Chest Auscultation: Bilateral: Diminished Lung Sounds Cardio Rate: regular rate Rhythm: regular rhythm Heart sounds: S1 normal and S2 normal Neuro General: patient alert, patient awake and patient oriented x3 Extremities Lower Extremity Edema: None: Bilateral Supplemental Info Supplemental Information Echocardiogram 07/24/2023: Impression: -Technically difficult exam due to body habitus and lung interference -Exam indication: CAD -The left ventricle is normal in size. Left ventricular systolic function is normal. EF = 54 +/- 5% (2D 4-ch) Grade I left ventricular diastolic dysfunction. -The right ventricle is normal in size. Right ventricular systolic function is normal. -The visualized aorta is borderline dilated with a maximal dimension of 3.8cm. -There are no significant valvular abnormalities. -Definity unavailable. -Exam was compared with the prior CC echocardiographic exam performed US Carotid Arteries Bilateral 08/01/2023: Impression: Right Side: Internal Carotid Artery: 20-39% stenosis. Vertebral Artery: Patent and antegrade flow noted. Innominate Artery: Unable to visualize Subclavian Artery: Proximal vessel patent. Unable to visualize origin. Left Side: Internal Carotid Artery: 20-39% stenosis. Vertebral Artery: Patent and antegrade flow noted. High resistive signal suggest non-dominant vessel or more distal disease; clinical correlation is suggested. Subclavian Artery: Patent Assessment and Plan Assessment and Plan (1) CAD (coronary artery disease): Status: Chronic Plan: Patient has a history of coronary artery disease, with CABG in 2019. His most recent stress test was noted to be abnormal. Would like to proceed with a cardiac catheterization to further assess this. Depending on results, further recommendations will be made.
--- NOTE | 2024-06-25 11:17 | RAD_ITS ---
PROCEDURE: CHEST PA AND LATERAL 06/25/2024 REASON FOR EXAM: PRE-PROCEDURE DIAGNOSTIC TECHNIQUE: Frontal and lateral views of the chest. COMPARISON: 09/17/2021 FINDINGS: The lungs appear clear. There is again note of elevation of the right hemidiaphragm. Status post median sternotomy and cholecystectomy again noted. Tortuosity of the thoracic aorta again seen. RAD/Chest PA and Lateral IMPRESSION: No evidence of acute disease. Reading Location: [id number]
[2024-06-25 11:42] LABS: Absolute Lymphocyte Count 0.64 X10^3/uL (0.83-4.51); Absolute Neutrophil Count 3.5 X10^3/uL (2.0-7.7); Basophil# 0.02 X10^3/uL; Basophil% 0.4 % (0-1); Eosinophil# 0.07 X10^3/uL; Eosinophils% 1.2 % (0-5); Hematocrit 30.9 % (40-54); Hemoglobin 9.8 g/dL (13.0-16.5); Lymphocyte # 0.64 X10^3/ul (0.83-4.51); Lymphocyte % 11.3 % (19-41); Mean Corp Hgb Conc 31.7 g/dL (32-36); Mean Corpuscular Hgb 25.5 pg (27.0-32.0); Mean Corpuscular Volume 80.5 fL (80-94); Mean Platelet Vol. 11.3 fl (6.2-12.0); Monocyte# 1.35 X10^3/uL; Monocyte% 23.9 % (0-10); NRBC Flagged by Analyzer 0 % (0-5); Neutrophil # 3.46 X10^3/uL (2.7-7.7); Neutrophil % 61.3 % (47-70); Platelet Count 118 K/mm3 (150-450); RBC Distribution Width CV 16.2 % (11.6-14.6); RBC Distribution Width SD 47.1 fl (35.1-43.9); Red Blood Count 3.84 M/mm3 (4.6-6.2); White Blood Count 5.7 K/mm3 (4.4-11.0)
[2024-06-25 11:45] LABS: International Normalized Ratio 1.2; Prothrombin Time (Protime)PT. 15.2 SECONDS (11.7-14.9)
[2024-06-25 13:04] LABS: ALB/GLOB Ratio 1.7 RATIO (0.9-2.4); AST(SGOT) 27 U/L (<=37); Alanine Aminotransfer ALT/SGPT 15 U/L (<=46); Alkaline Phosphatase 91 U/L (40-129); Anion Gap 10 (5-15); BUN 12 mg/dL (4-19); BUN/Creat Ratio 15.3 RATIO (10-20); Calcium,Total 8.7 mg/dL (7.6-11.0); Carbon Dioxide 22.1 mmol/L (21.0-32.0); Chloride 97 mmol/L (98-108); Cholesterol 122 mg/dL (<=200); EST Glomerular Filtration Rate 89 (>60); Globulin 2.4 g/dL (2.2-4.2); Glucose 118 mg/dL (70-99); High Density Lipoprotein 60 mg/dL; Low Density Lipoprotein Calc. 45 mg/dL; Potassium 4.6 mmol/L (3.3-5.1); Protein, Total 6.4 g/dL (5.9-8.4); Sodium Level 130 mmol/L (133-145); Total Bilirubin 0.39 mg/dL (0.00-1.30); Triglycerides 89 mg/dL; Very Low Density Lipoprotein 18 mg/dL (5-40); cholesterol:hdl ratio screen 2.05
[2024-07-02 08:51] VITALS: BMI 25.5
[2024-07-03] VITALS (13 sets, daily range): BP systolic 119–143; BP diastolic 76–94; PULSE 78–101; RESP 16; TEMP 36.6–36.7; O2SAT 98–100; BMI 25.5
--- NOTE | 2024-07-03 11:23 | DCINST_ITS ---
Discharge Instructions DC O2, CPAP, BIPAP needs Home O2 Discharge instructions: No Dressing / Incision Lifting Restrictions: No heavy lifting bending or strenuous physical activity for 5 days. Dressing / Incision Call your doctor if your incision/area has: Continuous Slow Oozing, Sudden Increased Bleeding, Increased Pain/ Swelling, Increased Redness and Foul Smelling Discharge Follow Up Care Please Follow Up With: Stacey Daly MD When: 2 weeks Test Results: Test results from this visit will be discussed in further detail at your follow- up appointment, if applicable. Discharge Plan Admission Attending Provider: Stacey Daly Primary Care Provider: Wily Espinal Instructions Print Language: [place] Discharge Orders/Prescriptions Prescriptions: New clopidogrel 75 mg Tablet 75 mg PO DAILY Qty: 30 6RF Continued aspirin [Adult Aspirin Regimen] 81 mg tablet,delayed release (DR/EC) 81 mg PO DAILY magnesium oxide 400 mg magnesium capsule 400 mg PO DAILY acetaminophen 325 mg tablet 650 mg PO Q4H PRN (Reason: Pain Or Fever) multivitamin Tablet 1 tab PO QAM simvastatin 80 mg tablet 80 mg PO QHS albuterol sulfate 90 mcg/actuation HFA aerosol inhaler 2 puff inhalation Q4-6H PRN (Reason: shortness of breath or wheezing) pantoprazole 40 mg tablet,delayed release (DR/EC) 40 mg PO BID fluticasone propion-salmeterol [Advair HFA] 115-21 mcg/actuation HFA aerosol inhaler 2 inh INHALATION BID Patient Comments: INHALE 2 PUFFS INSTRUCTED TWICE DAILY. RINSE MOUTH AFTER USE. fluticasone propionate 50 mcg/actuation spray,suspension 2 ea INTRANASAL BID Patient Comments: USE 2 SPRAYS IN EACH NOSTRIL ONCE DAILY. RINSE MOUTH AFTER USE. ibuprofen 200 mg tablet 200 mg PO Q6H PRN (Reason: pain) Qty: 30 0RF levothyroxine 175 mcg tablet 175 mcg PO DAILY tamsulosin 0.4 mg capsule 0.4 mg PO QHS metoprolol tartrate 25 mg tablet 25 mg PO BID oxycodone-acetaminophen [Percocet] 5-325 mg tablet 1 tab PO Q8H PRN (Reason: pain) 4 Days Qty: 10 0RF Referrals / Follow Up: Wily Espinal MD [Primary Care Provider] - Disposition Disposition (needs filled in before D/C Order can be placed): Home, Self Care
--- NOTE | 2024-07-03 11:30 | EKG12_ITS ---
Test Reason : PCI Blood Pressure : */* mmHG Vent. Rate : 78 BPM Atrial Rate : 78 BPM P-R Int : 184 ms QRS Dur : 92 ms QT Int : 402 ms P-R-T Axes : 32 3 20 degrees QTcB Int : 458 ms Normal sinus rhythm Normal ECG When compared with ECG of 19-Sep-2021 05:30, No significant change was found Confirmed by JOSEPH MALAVE, KIMBERLEY ([id number]), clinical editor HUONG NOONAN ([id number]) on 07/08/2024 6:57:20 AM Referred By: Stacey Daly Confirmed By: KIMBERLEY RUIZ MD
--- NOTE | 2024-07-03 11:49 | CL.I_ITS ---
Patient Name: JAYDEN TUCKER Study Date: 07/03/2024 Performing: Stacey Daly MD Ht: 70 inches 177.8 cm : 1940 Wt: 178.2 lbs 80.74 kg Age: 83 Gender: male BSA: 1.99 PROCEDURE(S) PERFORMED DC04-([id number])LHC/COR/CABG IC12-([id number])DARSHANA W/WO PTCA, SINGLE CORONARY ARTERY IC11A-([id number])CORONARY INTRAVASCULAR LITHOTRIPSY CLINICAL PROFILE AND CO-MORBIDITIES Indications: Stable Known CAD Heart Failure: None Stress/Imaging Stress Test w/SPECT MPI: Yes Result: Positive Intermediate Risk Stress Test with SPECT MPI: Positive Intermediate Risk CAD Presentations: Other: Dyspnea CONCLUSIONS 99% Mid LAD; 100% D1; VASQUES to LAD patent; SVG to D1 patent 90% distal OM1 80% Prox RCA, 99% ostial RPLV; SVG to RPLV patent LVEDP 13 mm Hg Successful IVL/DARSHANA Prox RCA using Errol [place] 3.5x8 mm (post-dilated RECOMMENDATIONS ASA Indefinitley P2Y12 inhibitors for atleast 6 months Staged PCI to OM DESCRIPTION OF PROCEDURE The patient arrived to the procedure lab. The risks and benefits of the procedure as well as a full description of our services here and lack of surgical backup were fully explained to the patient and/or their significant other prior to the catheterization. The Timeout was completed, verifying the correct patient and procedure. The patient's procedural site was prepped and draped in the usual fashion. Local anesthetic was given subcutaneously to right groin region with Lidocaine 2%. Using a modified Seldinger technique, arterial access was obtained via the right femoral artery, with Micropuncture set, arterial access was obtained via the right femoral artery, a 5Fr sheath was inserted.. LV to AO pullback pressures were then recorded. Left Coronary Artery selective angiography was performed in multiple views using a 5 Fr. JL4 catheter. Right Coronary Artery selective angiography was then performed in multiple views using a 5 Fr. 3DRC (Cristopher) catheter. Saphenous Vein graft to the OM 1 selective angiography was performed in multiple views using a 5 Fr. 3DRC (Cristopher) catheter. Left internal mammary artery graft to the LAD selective angiography was performed in multiple views using a 5 Fr. 3DRC (Cristopher) catheter. Saphenous Vein graft to the RPL selective angiography was performed in multiple views using a 5 Fr. AL 1 catheter. Right Coronary Artery selective angiography was then performed in multiple views using a 5 Fr. 3DRC (Cristopher) catheterThe images were reviewed and options discussed. A decision was then made to proceed with an Intervention, IVUS or other adjunct procedure. Arterial sheath was exchanged for a 6fr 65 cm Destination sheath JR4 Guide catheter was inserted and engaged into the RCA. Runthrough Guide wire was advanced to the RCA. NC Emerge 2.50x12 Balloon catheter was inserted. PTCA balloon inflated at 18 atms for 36 secs. PTCA balloon inflated at 22 atms for 27 secs. Angiogram performed post balloon dilatation. PTCA balloon inflated at 4 atms for 6 secs. Guide catheter was exchanged for a 6fr AL 0.75 PTCA balloon inflated at 4 atms for 5 secs. PTCA balloon inflated at 6 atms for 21 secs. PTCA balloon inflated at 4 atms for 17 secs. PTCA balloon inflated at 4 atms for 22 secs. PTCA balloon inflated at 4 atms for 5 secs. [place] 3.0x15 Drug Eluting stent was inserted. Angiogram performed post stent deployment. NC Emerge 3.25x12 Balloon catheter was inserted. Angiogram performed post balloon dilatation. [place] 3.5x8 Drug Eluting stent was inserted. Angiogram performed post stent deployment. NC Euphora 4.0x6 Balloon catheter was inserted. Angiogram performed post balloon dilatation. NC Euphora 4.5x8 Balloon catheter was inserted. Angiogram performed post balloon dilatation. The arterial sheath was pulled and a Perclose closure device was deployed for hemostasis CORONARY ANGIOGRAPHY DOMINANCE: Right Dominant LEFT HEART ASSESSMENT LVEDP: 13 mmHg LEFT MAIN: Tubular 40% Ostial lesion in LMCA LEFT ANTERIOR DESCENDING ARTERY: LAD: Tubular 80% Proximal lesion in LAD Aneurysmal 50% Mid lesion in LAD Calcified 95% Mid lesion in LAD DIAGONAL 1: Tubular 100% Ostial lesion in DIAG1 OM 1: Tubular 95% Mid lesion in MARG1 OM 2: Tubular 95% Mid lesion in MARG1 RIGHT CORONARY ARTERY: RCA: Calcified 80% Proximal lesion in RCA GRAFTS: SVG Graft to DIAG1 VASQUES Graft to LAD SVG Graft to RT LV-BR INTERVENTION INFORMATION LESION SITE: RCA (Proximal) Lesion Complexity: High/C, lesion length: 14 mm Pre Stenosis: 80 % Pre intervention LEVI flow: 3 PROCEDURE: IVL, DARSHANA Post Stenosis: 0 % Post intervention LEVI flow: 3 Lesion Devices: Terumo .014 180cm Runthrough Extra Floppy straight [employer] NC EMERGE MR 2.50x12 BALLOON [employer] Shockwave IVL 3.0x12 Cordis 6 Fr AL.75 100cm Guide Catheter Medtronic 3.0 x 15 ERROL FRONTIER DARSHANA [employer] NC EMERGE MR 3.25x12 BALLOON Medtronic 3.5 x 08 ERROL FRONTIER DARSHANA Medtronic NC EUPHORA RX 4.0x06 BALLOON Medtronic NC EUPHORA RX 4.5x08 BALLOON COMPLICATIONS No Complications PROCEDURE MEDICATIONS Versed 1 mg IV Fentanyl 50 mcg IV Versed 1 mg IV Fentanyl 25 mcg IV Versed 1 mg IV Oxygen: 2 L/min via nasal cannula Brilinta 180 mg PO @ 07/03/2024 09:51:19 Heparin 2000 unit(s) IV 07/03/2024 09:26:59 Heparin 6000 unit(s) IV 07/03/2024 09:49:43 Heparin 2000 unit(s) IV 07/03/2024 10:17:35 Nitro 200 mcg IC 07/03/2024 10:58:17 IV Bolus: .9 NaCl 250 ml total 07/03/2024 10:48:21 SUMMARY OF HEMODYNAMIC DATA Time AIR REST ECG 07:40:57 LV 125/-6, 14 08:57:28 LV 120/1, 13 08:57:36 LVp 117/-4, 12 08:58:10 AOp 129/66 (79) 08:58:17 AO 130/69 (97) SA 08:58:19 AO 144/67 (104) 09:27:29 AO 155/80 (113) 09:40:21 AO 165/89 (122) 10:13:02 AO 149/76 (110) 10:26:37 AO 132/72 (100) 10:45:36 AIR REST 11:17:11 Signed By Stacey Daly MD On 07/03/2024 11:48:13 Stacey Daly MD
[2024-07-03] MEDS: Vancomycin IV 1,000 MG/200 ML BAG 200 MG IV (13:09)
[2024-07-03] MEDS: 0.9% Normal Saline (1000mL) 1,000 ML 150 ML IV (13:09)
[2024-07-03] MEDS: Lidocaine 1% /Epi 1:100 (20ml) 20 ML Vial INFILT (13:09)
--- NOTE | 2024-07-03 14:50 | CRPHASE1_ITS ---
Patient Communication Patient Information Former Patient:: Phase I and Phase II PHII Cardiac Rehab Discussed with Patient:: Yes Guide to Cardiac Rehab Given to Patient:: Yes Cardiac Rehab Facility Choice List Given to Patient:: Yes Communication to Cardiac Rehab Choice Program [facility] CR PHII:: Communication Given to CR [employer] Crew Supervisor:: Stacey Daly Refer Phase II Cardiac Rehab:: Yes Cardiac Rehabilitation Info Program Information Cardiac Rehabilitation Program Information: Cardiac Rehab The cardiac rehab team at [facility] consists of highly skilled exercise physiologists, nurses, respiratory therapists and physicians working together with you. Our purpose is to help you have a full recovery and achieve the goals you set for yourself. Over the years many of our patients have returned to activities they assumed they would never do again! We can help restore your confidence and motivation to make lifestyle changes that can have a significant impact on your health and quality of life! We can help answer questions and concerns you may have about exercise, lifestyle, medications, diet, stress and anxiety which are common following a hospitalization. WE monitor ECG and vital signs during exercise and discuss your progress with you and report to your physician(s). Cardiac Rehab is proven to help reduce readmissions, improve functional capacity and lower recurrence of problems with your heart. Our Cardiac Rehab program is Certified by the [place] [employer]io-Vascular and Pulmonary [employer] (AACVPR) and Accredited by the [place] [employer] through our [facility]. You can contact us at . We invite you to call us with your questions or to get started in our program. If you have other questions or concerns be sure to ask your physician/provider during your follow-up visit. WE look forward to seeing you!
--- NOTE | 2024-07-03 14:51 | CRPH1.INSTRU ---
General Education Discussed with Patient CAD and cardiac anatomy and function:: Patient communicates acknowledgment Explanation of diagnoses and procedures:: Patient communicates acknowledgment Sign/Symptoms of MT:: Patient communicates acknowledgment Antiplatelet therapy: Patient communicates acknowledgment Proper use of NTG-SL: Patient communicates acknowledgment Emergency procedures and activation of EMS: Patient communicates acknowledgment Compliance of all prescribed medications: Patient communicates acknowledgment Smoking Risk Factors Patient Nicotine/Smoking Risk Factors Are:: Cigarettes and Non-smoker Recommendations Recommendations Include:: Previous smoker; encourage continued cessation Response Code Nicotine/Smoking Response Code:: Patient communicates acknowledgment Dyslipidemia Recommendations Recommendations Include:: Lipid profile not available Response Code Dyslipidemia Response Code:: Patient communicates acknowledgment Overweight/Obesity Risk Factors Patient Overweight/Obesity Risk Factors Are:: BMI Normal [24-29 & > 65 years old] Response Code Overweight/Obesity:: Patient communicates acknowledgment Hypertension Recommendations Recommendations Include:: Maintain BP <130/85 Response Code Hypertension:: Patient communicates acknowledgment Heart Disease Risk Factors Patient Heart Disease Risk Factors Are:: Previous cardiac event Recommendations Recommendations Include:: Educated family members of their risk Response Code Heart Disease Response Code:: Patient communicates acknowledgment Diabetes Risk Factors Patient Diabetes Risk Factors Are:: No documented hx of diabetes Response Code Diabetes:: Patient communicates acknowledgment Metabolic Syndrome Recommendations Recommendations Include:: Does not meet criteria Response Code Metabolic Syndrome Response Code:: Patient communicates acknowledgment Sedentary Recommendations Recommendations Include:: Monitored Outpatient Cardiac Rehab Response Code Sedentary Response Code:: Patient communicates acknowledgment Stress Recommendations Recommendations Include:: Identification of stressors, and assessment of coping skills and Stress management techniques Response Code Stress Response Code:: Patient communicates acknowledgment
--- NOTE | 2024-07-03 15:43 | CHAPLAIN ---
Type of Pastoral Visit _x__ Initial Visit ___ Follow-up Visit ___ On-call Visit ___ General Patient Visit ___ Spiritual Assessment ___ Family Conference ___ Bereavement ___ Rapid Response ___ Code Blue ___ Other (describe below) Pastoral Care Referral From _x__ Patient ___ Family ___ Nurse ___ Physician ___ Level Vial Curvature Gauger ___ Catheterization Laboratory Technician ___ Other (describe below) Sacrament/Intervention _x__ Active listening ___ Anointing ___ Moravian ___ Bereavement ___ Communion ___ Kamila exploration ___ ___ Life review _x__ Prayer ___ Reconciliation ___ Sacrament of Sick _x__ Supportive presence ___ Wedding ___ Other (describe below) Pastoral Comments patient is resting after his heart procedure; pt says that he would welcome a prayer; pt says that otherwise he is doing fine and would just like to rest
[2024-07-03] MEDS: Pantoprazole Sodium 40 MG Tablet PO (21:22)
[2024-07-03] MEDS: Simvastatin 20 MG Tablet 80 MG PO (21:23)
[2024-07-03] MEDS: Tamsulosin HCl 0.4 MG Capsule PO (21:24)
[2024-07-03] MEDS: Fluticasone 0.05% 1 SPRAY NASAL.SRY 2 SPRAY NASAL (21:24)
[2024-07-03] MEDS: Metoprolol Tartrate 25 MG Tablet PO (21:24)
[2024-07-03] MEDS: Senna/Docusate Sodium 1 Tablet 2 TABLET PO (21:24)
[2024-07-03] MEDS: Clopidogrel Bisulfate 300 MG Tablet PO (21:25)
[2024-07-04 01:39] VITALS: BP 146/92; PULSE 92; RESP 18; TEMP 36.4; O2SAT 99
[2024-07-04 03:00] VITALS: BP 146/92; PULSE 92; RESP 18; TEMP 36.4; O2SAT 99
[2024-07-04 05:12] LABS: Hematocrit 28.4 % (40-54); Hemoglobin 9.2 g/dL (13.0-16.5); Mean Corp Hgb Conc 32.4 g/dL (32-36); Mean Corpuscular Hgb 25.5 pg (27.0-32.0); Mean Corpuscular Volume 78.7 fL (80-94); Mean Platelet Vol. 10.9 fl (6.2-12.0); Platelet Count 117 K/mm3 (150-450); RBC Distribution Width CV 16.2 % (11.6-14.6); RBC Distribution Width SD 46.5 fl (35.1-43.9); Red Blood Count 3.61 M/mm3 (4.6-6.2); White Blood Count 10.3 K/mm3 (4.4-11.0)
[2024-07-04 05:51] LABS: ALB/GLOB Ratio 1.8 RATIO (0.9-2.4); AST(SGOT) 24 U/L (<=37); Alanine Aminotransfer ALT/SGPT 13 U/L (<=46); Albumin, Serum 3.8 g/dL (3.4-4.8); Alkaline Phosphatase 82 U/L (40-129); Anion Gap 11 (5-15); BUN 10 mg/dL (4-19); BUN/Creat Ratio 13.8 RATIO (10-20); Calcium,Total 8.6 mg/dL (7.6-11.0); Carbon Dioxide 19.6 mmol/L (21.0-32.0); Chloride 97 mmol/L (98-108); Creatinine, Serum 0.69 mg/dL (0.70-1.20); EST Glomerular Filtration Rate 93 (>60); Estimated Creatinine Clearance 74.77 ml/min (50-250); Globulin 2.2 g/dL (2.2-4.2); Glucose 100 mg/dL (70-99); Potassium 4.3 mmol/L (3.3-5.1); Sodium Level 127 mmol/L (133-145); Total Bilirubin 0.44 mg/dL (0.00-1.30)
[2024-07-04 06:00] VITALS: BP 140/82; PULSE 90; RESP 16; TEMP 36.2; O2SAT 98
[2024-07-04] MEDS: Levothyroxine 175 MCG Tablet PO (06:35)
[2024-07-04 08:57] VITALS: BP 117/68; PULSE 104; RESP 14; TEMP 37.1; O2SAT 98
[2024-07-04 08:59] VITALS: PULSE 104
[2024-07-04] MEDS: Aspirin E.C. 81 MG Tablet PO (08:59)
[2024-07-04] MEDS: Metoprolol Tartrate 25 MG Tablet PO (08:59)
[2024-07-04] MEDS: Multivitamins,Therapeutic Tablet 1 TABLET PO (08:59)
[2024-07-04] MEDS: Magnesium Chloride 64 MG Delay Rel.Tablet 128 MG PO (08:59)
[2024-07-04] MEDS: Clopidogrel Bisulfate 75 MG Tablet PO (09:00)
[2024-07-04] MEDS: Pantoprazole Sodium 40 MG Tablet PO (09:00)
[2024-07-04] MEDS: Fluticasone 0.05% 1 SPRAY NASAL.SRY 2 SPRAY NASAL (09:00)
--- NOTE | 2024-07-04 09:22 | CASEMGMT ---
Patient has order for discharge. RN CM in to discuss needs at discharge. Patient denies needs or help at discharge. Patient had no further questions or concerns.
--- NOTE | 2024-07-04 10:52 | PHA.DC_ITS ---
Pharmacy [facility] Counseling Pharmacy Service has performed discharge medication reconciliation and counseling for this patient. 1. CLOPIDOGREL 75MG PO DAILY The patient's discharge medication list was reviewed for discrepancies and discrepancies were resolved. The patient was counseled on the following discharge medications and changes in medications for homegoing were reviewed. The Reason for Use, instructions for use, and potential side effects were reviewed for all new medications. The patient's questions regarding all of their medications were answered. The patient was able to verbally demonstrate an understanding of their discharge medications. Medications at Discharge Home Medications acetaminophen 325 mg tablet 650 mg PO Q4H PRN Pain Or Fever 12/09/18 aspirin 81 mg tablet,delayed release (Adult Aspirin Regimen) 81 mg PO DAILY 12/09/18 magnesium oxide 400 mg PO DAILY 12/09/18 multivitamin 1 tab PO QAM 12/09/18 pantoprazole 40 mg tablet,delayed release 40 mg PO BID 12/09/18 simvastatin 80 mg tablet 80 mg PO QHS cholesterol 12/09/18 fluticasone propionate 115 mcg-salmeterol 21 mcg/actuation HFA inhaler (Advair HFA) 2 inh inhalation BID sob 09/17/21 fluticasone propionate 50 mcg/actuation nasal spray,suspension 2 ea intranasal BID stuffiness 09/17/21 ibuprofen 200 mg tablet 200 mg PO Q6H PRN pain #30 tabs 01/01/23 levothyroxine 175 mcg tablet 175 mcg PO DAILY disorder of thyroid gland 06/30/23 metoprolol tartrate 25 mg tablet 25 mg PO BID 06/30/23 tamsulosin 0.4 mg capsule 0.4 mg PO QHS 06/30/23 albuterol sulfate 90 mcg/actuation aerosol inhaler 2 puff inhalation Q4-6H PRN shortness of breath or wheezing 04/15/24 oxycodone-acetaminophen 5 mg-325 mg tablet (Percocet) 1 tab PO Q8H PRN pain 4 days #10 tabs 04/26/24 clopidogrel 75 mg tablet 75 mg PO DAILY #30 tabs 07/03/24
[2024-07-04 18:56] LABS: ACT Activated Clotting Time 262 sec (74-137)
== END 2024-07-04 11:55 | disposition home or self-care (01) ==
LOC: PCU 11:33
PROVIDERS: Admitting Provider Internal Medicine Cardiovascular Disease; PCP Family Medicine; Referring Provider Internal Medicine Cardiovascular Disease; Visit Provider Internal Medicine Cardiovascular Disease
DX: I25.10 Atherosclerotic heart disease of native coronary artery without angina pectoris (principal); J44.89 Other specified chronic obstructive pulmonary disease; I48.0 Paroxysmal atrial fibrillation; R94.39 Abnormal result of other cardiovascular function study; Z87.891 Personal history of nicotine dependence; Z95.1 Presence of aortocoronary bypass graft; E78.5 Hyperlipidemia, unspecified; E03.9 Hypothyroidism, unspecified; I10 Essential (primary) hypertension; Z79.890 Hormone replacement therapy; Z79.899 Other long term (current) drug therapy; Z79.82 Long term (current) use of aspirin; Z79.51 Long term (current) use of inhaled steroids; Z79.02 Long term (current) use of antithrombotics/antiplatelets
CPT/HCPCS: 36415; 71046; 80053; 80061; 84443; 85025; 85027; 85347; 85610; 92928; 92972; 93005; 93455; 96361; 96365; 96366; 99152; 99153; 99221; C1725; C1761; C1894; Q9967; C1760; C1769; C1874; C1887; C9600; G0378

== ENCOUNTER 2024-08-06 08:23 | Day surgery (SDC) | payer MEDICARE, OTHER, SELFPAY ==
--- NOTE | 2024-07-28 14:11 | PCM.HP.BLA ---
History and Physical Date of Admission: 08/06/24 This is an 83-year-old male who presents today for cardiac catheterization, following an abnormal stress test. He has a history of coronary artery disease status post CABG in 2019. According to him, he received 3 grafts to his coronary arteries. Also history of dyslipidemia and COPD. 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 Patient is also scheduled to undergo a hernia repair surgery for the end of this month. We are asked to evaluate his cardiac risk for the proposed procedure. Patient denies any chest pains either at rest or with exertion. For the past couple of years, he has been feeling short of breath with exertion. According to him, it is progressively gotten worse. Moderate exertion makes him short of breath. Denies any orthopnea. No PND. Denies any ankle edema. Denies any palpitations. Occasional lightheadedness. No syncope or presyncope. Intake Vital Signs See EMR Allergies See EMR Medications See EMR [facility] Medical History Abdominal wall hernia Acquired hypothyroidism Atherosclerosis of coronary artery of [place] heart without angina pectoris Delcid's esophagus Delcid's esophagus 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 CAD (coronary artery disease) Chronic fatigue, unspecified Constipation DDD (degenerative disc disease), lumbar Essential hypertension GERD (gastroesophageal reflux disease) Hiatal hernia Hyperlipidemia Hypothyroidism Mild intermittent asthma without complication Paroxysmal atrial fibrillation Peptic ulcer, site unspecified, unspecified as acute or chronic, without hemorrhage or perforation Shortness of breath Surgical History History of back surgery (~04/25/17) 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) History of repair of hiatal hernia History of umbilical hernia repair History of ventral hernia repair Hx laparoscopic cholecystectomy Family History Mother Emphysema of lungFather Emphysema of lung Social History Smoking Status: Former smoker quit date: 02/12/81 pack-years: 13 Tobacco: How many years used: 27 Electronic Cigarette Use: not used how long ago did patient quit smokin years ago alcohol intake: former substance use type: does not use ROS Const Const: Positive for fatigue and daytime sleepiness; Negative for weakness, headache(s) or weight gain ENT ENT: Positive for dizziness; Negative for headache(s), Nosebleed/epistaxis or balance problems Cardio Chest Pain: No Palpitations: No Edema: None Muscle aches with walking: None Resp Respiratory: Positive for SOB with activity and SOB at rest; Negative for SOB orthopnea\SOB lying down GI GI: Positive for nausea (in AM); Negative vomiting or heartburn Musc Musc: Positive for joint pain (chronic, arthritis); Negative for muscle aches/ myalgia, muscle weakness or balance problems Neuro Neuro: Positive for dizziness; Negative for lightheadedness, near syncope, syncope, headache(s) or weakness Endo Endo: Positive for fatigue Cardiology Exam Const Appearance: comfortable and no acute distress Nutritional Appearance: well nourished Neck Neck: no JVD Carotids: Negative bruit Chest Auscultation: Bilateral: Diminished Lung Sounds Cardio Rate: regular rate Rhythm: regular rhythm Heart sounds: S1 normal and S2 normal Neuro General: patient alert, patient awake and patient oriented x3 Extremities Lower Extremity Edema: None: Bilateral Supplemental Info Supplemental Information Echocardiogram 07/24/2023: Impression: -Technically difficult exam due to body habitus and lung interference -Exam indication: CAD -The left ventricle is normal in size. Left ventricular systolic function is normal. EF = 54 +/- 5% (2D 4-ch) Grade I left ventricular diastolic dysfunction. -The right ventricle is normal in size. Right ventricular systolic function is normal. -The visualized aorta is borderline dilated with a maximal dimension of 3.8cm. -There are no significant valvular abnormalities. -Definity unavailable. -Exam was compared with the prior CC echocardiographic exam performed US Carotid Arteries Bilateral 08/01/2023: Impression: Right Side: Internal Carotid Artery: 20-39% stenosis. Vertebral Artery: Patent and antegrade flow noted. Innominate Artery: Unable to visualize Subclavian Artery: Proximal vessel patent. Unable to visualize origin. Left Side: Internal Carotid Artery: 20-39% stenosis. Vertebral Artery: Patent and antegrade flow noted. High resistive signal suggest non-dominant vessel or more distal disease; clinical correlation is suggested. Subclavian Artery: Patent Assessment and Plan Assessment and Plan (1) CAD (coronary artery disease): Status: Chronic Plan: Patient has a history of coronary artery disease. His most recent stress test was abnormal demonstrating mild reversible perfusion defect of the distal anterior wall and apex suggestive of ischemia. Will proceed with cardiac catheterization to further assess this. Depending on results, further recommendations will be made.
[2024-07-31 12:04] LABS: Hematocrit 29.3 % (40-54); Hemoglobin 9.4 g/dL (13.0-16.5); Mean Corp Hgb Conc 32.1 g/dL (32-36); Mean Corpuscular Hgb 25.3 pg (27.0-32.0); Mean Platelet Vol. 11.3 fl (6.2-12.0); Platelet Count 112 K/mm3 (150-450); RBC Distribution Width CV 15.8 % (11.6-14.6); RBC Distribution Width SD 45.2 fl (35.1-43.9); Red Blood Count 3.71 M/mm3 (4.6-6.2); White Blood Count 7.1 K/mm3 (4.4-11.0)
[2024-07-31 12:11] LABS: International Normalized Ratio 1.1; Prothrombin Time (Protime)PT. 14.9 SECONDS (11.7-14.9)
[2024-07-31 13:08] LABS: Anion Gap 11 (5-15); BUN 11 mg/dL (4-19); BUN/Creat Ratio 13.9 RATIO (10-20); Calcium,Total 8.8 mg/dL (7.6-11.0); Carbon Dioxide 22.1 mmol/L (21.0-32.0); Chloride 95 mmol/L (98-108); EST Glomerular Filtration Rate 89 (>60); Glucose 110 mg/dL (70-99); Potassium 4.5 mmol/L (3.3-5.1); Sodium Level 128 mmol/L (133-145)
[2024-08-05 09:13] VITALS: BMI 27.0
[2024-08-06 16:03] LABS: ACT Activated Clotting Time 228 sec (74-137)
--- NOTE | 2024-09-22 09:45 | CL.I_ITS ---
Patient Name: JAYDEN TUCKER Study Date: 08/06/2024 Performing: Stacey Daly MD Ht: 68 inches 172.72 cm : 1940 Wt: 178.2 lbs 80.74 kg Age: 83 Gender: male BSA: 1.95 PROCEDURE(S) PERFORMED [id number])[facility] CLINICAL PROFILE AND CO-MORBIDITIES Indications: Staged PCI Heart Failure: None CONCLUSIONS 99% Mid OM1 Unsuccessful attempt at PCI sub-total calcified Mid OM1. Unable to cross with wire on account of unfavorable angle proximal to the lesion. RECOMMENDATIONS Medical therapy DESCRIPTION OF PROCEDURE The patient arrived to the procedure lab. The risks and benefits of the procedure as well as a full description of our services here and lack of surgical backup were fully explained to the patient and/or their significant other prior to the catheterization. The Timeout was completed, verifying the correct patient and procedure. The patient's procedural site was prepped and draped in the usual fashion. Local anesthetic was given subcutaneously to right radial region with Lidocaine 2%. Using a modified Seldinger technique, arterial access was obtained via the right radial artery, a 6Fr sheath was inserted.. Left Coronary Artery selective angiography was performed in multiple views using a 6 Fr. XB 3.5 catheter XB 3.5 Guide catheter was inserted and engaged into the LCA. Runthrough Guide wire was advanced to the 1st OM. The arterial sheath was pulled and a TR Band was applied for hemostasis 13cc air CORONARY ANGIOGRAPHY CIRCUMFLEX ARTERY: OM 1: Mid - 99% heavily calcified INTERVENTION INFORMATION LESION SITE: 1st OM (Mid) Lesion Complexity: High/C Pre Stenosis: 99 % Pre intervention LEVI flow: 3 Post Stenosis: 99 % Post intervention LVEI flow: 3 Lesion Devices: Terumo .014 180cm Runthrough Extra Floppy straight Cordis 6 Fr XB3.5 100cm Guide Catheter COMPLICATIONS No Complications PROCEDURE MEDICATIONS Fentanyl 50 mcg IV Versed 1 mg IV Oxygen: 2 L/min via nasal cannula Heparin given IA 08/06/2024 09:36:27 Heparin 4000 unit(s) IV 08/06/2024 09:37:23 Heparin 2000 unit(s) IV 08/06/2024 10:10:49 Verapamil 2.5mg, Ntg 200mcgs, 2000 units of Heparin given IA 08/06/2024 09:36:27 SUMMARY OF HEMODYNAMIC DATA Time AIR REST ECG 08:49:17 AO 93/47 (70) SA 09:40:35 AIR REST 10:53:51 Signed By Stacey Daly MD On 08/11/2024 11:53:19 Signed By Stacey Daly MD On 08/06/2024 10:55:59 Stacey Daly MD
== END 2024-08-06 14:10 | disposition home or self-care (01) ==
PROVIDERS: PCP Family Medicine; Referring Provider Internal Medicine Cardiovascular Disease; Visit Provider Internal Medicine Cardiovascular Disease
DX: I25.10 Atherosclerotic heart disease of native coronary artery without angina pectoris (principal); Z95.1 Presence of aortocoronary bypass graft; Z87.891 Personal history of nicotine dependence
CPT/HCPCS: 36415; 80048; 85027; 85347; 85610; 93454; 99152; 99153; C1769; Q9967; C1725; C1887; C1894

== ENCOUNTER → 2024-09-04 | Outpatient (CLI) | payer MEDICARE, OTHER, SELFPAY | END | disposition home or self-care (01) | LOC: PSN 09:30 | PROVIDERS: PCP Family Medicine; Referring Provider Nurse Practitioner Gerontology; Visit Provider Nurse Practitioner Gerontology | DX: J44.9 Chronic obstructive pulmonary disease, unspecified (principal) | CPT/HCPCS: 94060; 94726; 94729 ==

== ENCOUNTER 2024-11-30 10:26 | Emergency (ER) | payer MEDICARE, OTHER, SELFPAY ==
[2024-11-30] VITALS (8 sets, daily range): BP systolic 107–134; BP diastolic 62–81; PULSE 82–94; RESP 16–22; TEMP 36.6–36.9; O2SAT 96–100; BMI 27.5
[2024-11-30 12:03] LABS: Hematocrit 21.6 % (40-54); Hemoglobin 6.9 g/dL (13.0-16.5); Immature Granulocytes Count 1.070 X10^3/uL (0.0-0.0); Mean Corp Hgb Conc 31.9 g/dL (32-36); Mean Corpuscular Volume 74.2 fL (80-94); Mean Platelet Vol. 12.1 fl (6.2-12.0); NRBC Flagged by Analyzer 0.1 % (0-5); POSITIVE COUNT YES; POSITIVE DIFFERENTIAL YES; POSITIVE MORPHOLOGY YES; Platelet Count 154 K/mm3 (150-450); RBC Distribution Width CV 18.1 % (11.6-14.6); RBC Distribution Width SD 47.1 fl (35.1-43.9); Red Blood Count 2.91 M/mm3 (4.6-6.2)
[2024-11-30 12:06] LABS: Differential Indicated SCAN CRITERIA MET; White Blood Count 37.0 K/mm3 (4.4-11.0)
[2024-11-30 12:20] LABS: AST(SGOT) 36 U/L (<=37); Alanine Aminotransfer ALT/SGPT 20 U/L (<=46); Albumin, Serum 3.8 g/dL (3.4-4.8); Alkaline Phosphatase 75 U/L (40-129); Anion Gap 11 (5-15); BUN 16 mg/dL (4-19); BUN/Creat Ratio 21.0 RATIO (10-20); Calcium,Total 8.4 mg/dL (7.6-11.0); Carbon Dioxide 24.4 mmol/L (21.0-32.0); Chloride 88 mmol/L (98-108); Estimated Creatinine Clearance 75.72 ml/min (50-250); Globulin 2.6 g/dL (2.2-4.2); Glucose 118 mg/dL (70-99); Lipase 89 U/L (13-75); Potassium 4.2 mmol/L (3.3-5.1)
[2024-11-30] MEDS: 0.9% Normal Saline (1000mL) 1,000 ML 125 ML IV (13:15)
[2024-11-30 13:40] LABS: Color, Urine Yellow (Yellow); Glucose, Dipstick Normal (Normal); Ketone-Dipstick 5 mg/dl (Negative); Leukocyte Esterase-Dipstick 25 /ul (Negative); Nitrite-Dipstick Negative (Negative); Occult Blood-Urine 10 /ul (Negative); Protein-Dipstick 30 mg/dl (Negative); Specific Gravity, Urine 1.020 (1.002-1.030); Urine Bilirubin Dipstick Negative (Negative)
[2024-11-30 13:48] LABS: Mucous, Urine 2+ /hpf (<or=2+); Red Blood Cells-Urine 0-5 SEEN /hpf (0-5); Squamous Epithelial Cells - UA 0-5 SEEN /hpf (0-5)
[2024-11-30] MEDS: Piperacil/Tazobactam 4.5 GM in 0.9% Normal Saline (100mL MB+) 100 ML IV (15:42)
== END 2024-11-30 16:09 | disposition short-term general hospital (02) ==
PROVIDERS: Emergency Provider Emergency Medicine; PCP Family Medicine; Visit Provider Emergency Medicine
DX: T81.40XA Infection following a procedure, unspecified, initial encounter (principal); I48.0 Paroxysmal atrial fibrillation; G89.18 Other acute postprocedural pain; R10.9 Unspecified abdominal pain; Y83.8 Other surgical procedures as the cause of abnormal reaction of the patient, or of later complication, without mention of misadventure at the time of the procedure; E87.1 Hypo-osmolality and hyponatremia; D64.9 Anemia, unspecified; R11.0 Nausea; I25.10 Atherosclerotic heart disease of native coronary artery without angina pectoris; I10 Essential (primary) hypertension; E78.5 Hyperlipidemia, unspecified; J45.20 Mild intermittent asthma, uncomplicated; Z79.02 Long term (current) use of antithrombotics/antiplatelets; Z79.82 Long term (current) use of aspirin; Z79.890 Hormone replacement therapy; Z79.899 Other long term (current) drug therapy; Z87.891 Personal history of nicotine dependence
CPT/HCPCS: 74177; 80053; 81001; 83605; 83690; 85025; 96361; 96365; 99285; Q9967; A4216

== ENCOUNTER 2024-12-13 17:45 | Inpatient (IN) | payer MEDICARE, OTHER, SELFPAY ==
[2024-12-13 18:03] VITALS: BP 109/66; PULSE 104; RESP 20; TEMP 36.2; O2SAT 96; BMI 22.1
--- NOTE | 2024-12-13 19:06 | PCM.HP.STD ---
HPI - General General Date of Admission: 12/13/24 Date of Service: 12/15/24 Chief Complaint: Here for rehabilitation. HPI Narrative JAYDEN TUCKER, is a 83 M who presents with followin11/26/2024 Dr. Bynum performed incisional hernia repair. 12/01/2024 Admit to [facility] with abdominal wall swelling. Transferred from [facility] with abdominal wall swelling, ecchymoses at surgical site. WBC 37, Hemoglobin 6.9. CT abdomen/pelvis showed post surgical hematoma versus developing abscess. Zosyn/Vancomycin IV given. Transfuse 1 unit PRBC for anemia. Hold Plavix, continue Aspirin. No anticoagulation for atrial fibrillation. Incision and drainage of abdominal hematoma done at bedside. Transferred to ICU for COPD exacerbation, acute respiratory failure with hypoxia. 12/08/2024 Doing well, no abdominal pain, no fever, no chills. Lasix given in ICU for fluid overload. Hemoglobin stable at 8.7. WBC improved to 22.44, wound culture 1 colony forming unit coagulase negative staph. Sputum normal terence, blood cultures negative. CTA chest/abdomen to rule out pulmonary embolism, and intraabdominal bleed. Wound VAC changes every Mo, Tu, We. No signs of intraabdominal failure or failure of repair. 12/12/2024 Patient on room air, on IV antibiotics. Diarrhea checked for C. Difficile. Patient required blood transfusion for anemia 2/2 hematoma. Finished IV antibiotics prior to transfer. 12/13/2024 Admit to TCU with debility, here for rehabilitation, strengthening, wound care, wound VAC, prior to discharge home with . [facility] Medical History (Updated 12/13/24 @ 19:[address] Haider Lazo MD) History of left heart catheterization Paroxysmal atrial fibrillation Mild intermittent asthma without complication Shortness of breath Peptic ulcer, site unspecified, unspecified as acute or chronic, without hemorrhage or perforation Hyperlipidemia Chronic fatigue, unspecified Essential hypertension Constipation CAD (coronary artery disease) BPH associated with nocturia Delcid's esophagus without dysplasia Acquired hypothyroidism Abdominal wall hernia Atherosclerosis of coronary artery of [place] heart without angina pectoris Hiatal hernia Hypothyroidism Delcid's esophagus GERD (gastroesophageal reflux disease) DDD (degenerative disc disease), lumbar Home Medications ?Medication ?Instructions ?Recorded ?Last Taken ?Type acetaminophen 325 mg tablet 650 mg PO Q4H PRN Pain Or Fever 12/09/18 Unknown History magnesium oxide 400 mg PO DAILY supplement 12/09/18 07/03/24 History multivitamin 1 tab PO QAM vitamin 12/09/18 Unknown History pantoprazole 40 mg tablet,delayed 40 mg PO BID prevent ulcers 12/09/18 07/03/24 History release simvastatin 80 mg tablet 80 mg PO QHS cholesterol 12/09/18 Unknown History fluticasone propionate 50 2 spray intranasal BID stuffiness 09/17/21 07/03/24 History mcg/actuation nasal spray,suspension ibuprofen 200 mg tablet 200 mg PO Q6H PRN pain #30 tabs 01/01/23 Unknown Rx levothyroxine 175 mcg tablet 175 mcg PO DAILY disorder of 06/30/23 08/06/24 History thyroid gland tamsulosin 0.4 mg capsule 0.4 mg PO QHS prostate 06/30/23 Unknown History albuterol sulfate 90 mcg/actuation 2 puff inhalation Q4H PRN 04/15/24 Unknown History aerosol inhaler shortness of breath or wheezing clopidogrel 75 mg tablet 75 mg PO DAILY blood thinner #30 07/03/24 08/06/24 Rx tabs fluticasone furoate 200 1 inh inhalation QDAY lungs 11/11/24 Unknown History mcg-vilanterol 25 mcg/dose inhalation powder (Breo Ellipta) metoprolol tartrate 50 mg tablet 50 mg PO BID blood pressure #180 11/11/24 Unknown Rx tabs aspirin 325 mg tablet,delayed 325 mg PO DAILY heart health 12/13/24 Unknown History release ondansetron HCl 4 mg tablet 4 mg PO Q8H PRN PRN nausea/vomiting 12/13/24 Unknown History torsemide 20 mg tablet 20 mg PO DAILY swelling 12/13/24 Unknown History Allergy/AdvReac Type Severity Reaction Status Date / Time cefdinir (From Omnicef) Allergy Intermediate Diarrhea Verified 11/30/24 10:33 atorvastatin AdvReac Intermediate myalgias Verified 11/30/24 10:33 azithromycin (From Zithromax) AdvReac Nausea/Vom/ Verified 11/30/24 10:33 Diarrhea Family History Mother Emphysema of lung Father Emphysema of lung Surgical History History of ventral hernia repair Hx laparoscopic cholecystectomy History of repair of hiatal hernia History of umbilical hernia repair 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) History of back surgery (~04/25/17) Social History (Updated 12/13/24 @ 19:[address] Haider Lazo MD) household members: spouse Smoking Status: Former smoker quit date: 02/12/81 pack-years: 13 Tobacco: How many years used: 27 Electronic Cigarette Use: not used how long ago did patient quit smokin years ago alcohol intake: former substance use type: does not use ROS Constitutional Constitutional: Reports weakness; Denies chills, fever(s) or weight gain ENT HEENT: Denies headache(s), nasal congestion or nasal discharge Cardiovascular Cardiovascular: Denies chest pain or palpitations Respiratory/Chest Respiratory/Chest: Denies cough, excessive phlegm production or shortness of breath with exertion Gastrointestinal Gastrointestinal: Denies abdominal pain, nausea or vomiting Genitourinary Genitourinary: Denies dysuria Musculoskeletal Musculoskeletal: Denies joint pain or joint swelling Integumentary Integumentary: Denies rash or wounds Neurologic Neurologic: Denies focal weakness, numbness or tingling Psychiatric Psychiatric: Denies anxiety, auditory hallucinations, depression, homicidal ideation or suicidal ideation Vital Signs Vital Signs Vital Signs: 12/13/24 18:03 12/13/24 18:03 Temperature 97.1 F L Temperature Source Oral Pulse Rate 104 H Pulse Rhythm Regular Respiratory Rate 20 H Respiratory Effort Normal Non-Labored Respiratory Depth Normal Respiratory Pattern Normal Blood Pressure 109/66 Blood Pressure Mean 80 Blood Pressure Source Monitor Blood Pressure Position Semi-Fowlers Blood Pressure Location Left Arm Pulse Ox 96 Oxygen Delivery Method Room Air Room Air Weight Weight: 66.224 kg Body Mass Index (BMI) 22.1 Physical Exam Const alert General Appearance: cooperative HEENT normocephalic Eyes PERRL and EOMs intact bilaterally Neck supple, no JVD and no carotid bruits Resp normal respiratory effort, normal air movement and clear to auscultation bilaterally Cardio regular rate and regular rhythm GI normal to inspection, nondistended, normoactive bowel sounds, non-tender and non-distended GI Narrative: Wound VAC center of abdomen. Extremity normal capillary refill General Extremity: Negative for edema Skin no rashes or lesions noted General Skin Exam: no breakdown Psych affect normal Appearance: appropriate Results Lab / Micro Data 12/14/24 05:53 12/14/24 05:53 Assessment & Plan Assessment/Plan (1) Debility: (2) Abdominal hematoma: (3) Abdominal abscess: (4) Sepsis: (5) COPD exacerbation: (6) Acute respiratory failure with hypoxia: (7) Acute blood loss anemia: (8) Atrial fibrillation: (9) Peptic ulcer: (10) Hyperlipidemia: (11) Allergic rhinitis: (12) CAD (coronary artery disease): (13) BPH (benign prostatic hyperplasia): (14) Hypothyroidism: PLAN: Plan 83 year old male with below past medical history hospitalized for abdominal pain, sepsis 2/2 abdominal hematoma/abscess s/p incision and drainage, complicated by acute respiratory failure with hypoxia 2/2 COPD, acute blood loss anemia requiring transfusions, admitted to TCU with debility, here for rehabilitation, strengthening, wound care, prior to discharge home with . Debility - PT/OT. Dysphagia - ST. Pain - Tylenol 650mg q4 prn. Bowel - senna/colace 1 tablet bid. Adult immunization - Administer pneumonia vaccine, covid vaccine, flu vaccine as appropriate. DVT prophylaxis - Hold, on dual antiplatelet therapy, recent bleed. COPD - Fluticasone/Salmeterol 232-14 1 puff bid, Albuterol 2 puffs q4 prn. Coronary artery disease - Metoprolol 50mg bid, Plavix 75mg daily, Aspirin 81mg daily. Allergic rhinitis - Flonase 2 sprays nasal bid. Edema - Furosemide 40mg daily. Hypothyroidism - Levothyroxine 175mcg daily. Hypomagnesemia - Magnesium 128mg daily. Nutrition - MVI 1 tablet daily. Nausea - Zofran 4mg q8 prn. Barretts esophagus - Pantoprazole 40mg bid. Hyperlipidemia - Simvastatin 80mg qhs. BPH - Tamsulosin 0.4mg qhs.
[2024-12-13 22:42] VITALS: BP 121/77; PULSE 95
[2024-12-13] MEDS: Fluticasone/Salmeterol 232-14 Inhaler 1 PUFF INHALATION (22:42)
[2024-12-13] MEDS: Senna/Docusate Sodium 1 Tablet PO (22:42)
[2024-12-13] MEDS: Fluticasone 0.05% 1 SPRAY NASAL.SRY 2 SPRAY NASAL (22:43)
[2024-12-13 22:53] VITALS: BP 121/77; PULSE 95
[2024-12-14 05:59] LABS: Hematocrit 31.1 % (40-54); Hemoglobin 9.7 g/dL (13.0-16.5); Immature Granulocytes Count 0.240 X10^3/uL (0.0-0.0); Mean Corp Hgb Conc 31.2 g/dL (32-36); Mean Corpuscular Volume 78.3 fL (80-94); Mean Platelet Vol. 10.9 fl (6.2-12.0); NRBC Flagged by Analyzer 0 % (0-5); POSITIVE DIFFERENTIAL YES; Platelet Count 284 K/mm3 (150-450); RBC Distribution Width CV 18.7 % (11.6-14.6); RBC Distribution Width SD 52.9 fl (35.1-43.9); Red Blood Count 3.97 M/mm3 (4.6-6.2); White Blood Count 11.9 K/mm3 (4.4-11.0)
[2024-12-14 06:05] LABS: Differential Indicated SCAN CRITERIA MET
[2024-12-14 06:19] LABS: Anion Gap 10 (5-15); BUN 24 mg/dL (4-19); BUN/Creat Ratio 35.6 RATIO (10-20); Calcium,Total 8.8 mg/dL (7.6-11.0); Carbon Dioxide 28.2 mmol/L (21.0-32.0); Chloride 96 mmol/L (98-108); Estimated Creatinine Clearance 67.83 ml/min (50-250); Glucose 115 mg/dL (70-99); Potassium 3.5 mmol/L (3.3-5.1)
[2024-12-14 06:28] LABS: Differential Comment SCANNED
[2024-12-14 08:31] VITALS: BP 100/66; PULSE 107; RESP 17; TEMP 36.7; O2SAT 95
[2024-12-14] MEDS: Aspirin E.C. 325 MG Tablet PO (08:35)
[2024-12-14] MEDS: Fluticasone 0.05% 1 SPRAY NASAL.SRY 2 SPRAY NASAL ×2 (08:35→19:58)
[2024-12-14 08:36] VITALS: PULSE 107
[2024-12-14] MEDS: Fluticasone/Salmeterol 232-14 Inhaler 1 PUFF INHALATION ×2 (08:36→20:02)
[2024-12-14] MEDS: Magnesium Chloride 64 MG Delay Rel.Tablet 128 MG PO (08:36)
[2024-12-14] MEDS: Senna/Docusate Sodium 1 Tablet PO ×2 (08:39→20:00)
[2024-12-14] MEDS: Tuberculin,Purif.prot.deriv. 50 TU/ML Vial 0.1 ML ID (16:18)
[2024-12-14 20:00] VITALS: BP 106/65; PULSE 94
--- NOTE | 2024-12-14 23:45 | NURSING ---
New order received for artificial tears for patient as he c/o eye dryness.
[2024-12-15] MEDS: Fluticasone 0.05% 1 SPRAY NASAL.SRY 2 SPRAY NASAL ×2 (08:20→22:23)
[2024-12-15] MEDS: Fluticasone/Salmeterol 232-14 Inhaler 1 PUFF INHALATION ×2 (08:20→22:24)
[2024-12-15 08:22] VITALS: BP 112/67; PULSE 105
[2024-12-15] MEDS: Aspirin E.C. 325 MG Tablet PO (08:22)
[2024-12-15] MEDS: Magnesium Chloride 64 MG Delay Rel.Tablet 128 MG PO (08:23)
[2024-12-15 09:48] VITALS: BP 112/67; PULSE 105; RESP 16; TEMP 36.6; O2SAT 98
--- NOTE | 2024-12-15 11:14 | NURSING ---
Offered covid vaccine, he reports he had within the last 2 months and is up to date.
--- NOTE | 2024-12-15 13:52 | MDS.RN ---
Entry Tracker for MDS completed, assessed pain.
--- NOTE | 2024-12-15 14:35 | WOUNDNOTE ---
wound photo: abdomen
--- NOTE | 2024-12-15 15:49 | PCM.PN.DRR ---
Documented by User: Aruna Kiser 12/15/24 16:21 TCU RX Drug Regimen Review Subjective/Objective Subjective/Objective Subjective: TCU Admission. 83 YOM presented to ER with abdominal wall swelling, ecchymosis at surgical site, transfer to [facility]. Hospitalized for abdominal pain, sepsis 2/2 abdominal hematoma/abscess s/p incision and drainage, complicated by acute respiratory failure with hypoxia 2/2 COPD, acute blood loss anemia requiring transfusions. Admitted to TCU with debility for strengthening and rehabilitation. Objective: Allergies cefdinir (From Omnicef) Allergy (Intermediate, Verified 11/30/24 10:33) Diarrhea atorvastatin Adverse Reaction (Intermediate, Verified 11/30/24 10:33) myalgias azithromycin (From Zithromax) Adverse Reaction (Verified 11/30/24 10:33) Nausea/Vom/Diarrhea Current Medications Generic Name Dose Route Start Last Admin Trade Name Freq PRN Reason Stop Dose Admin Acetaminophen 650 mg 12/13/24 18:16 12/14/24 23:08 Acetaminophen 325 Mg Tablet PO 650 mg Q4H PRN Administration Pain 1-10 Or Fever Albuterol Sulfate 2 puff 12/13/24 18:41 Albuterol Ih (6.7 Gm) 1 Puff Inhaler INHALATION Q4H PRN shortness of breath or wheezing Artificial Tears 1 drp 12/14/24 23:47 Carboxymethylcellulose Sodium 15 Ml Ophth Drops EACH EYE Q1H PRN DRY EYES Aspirin 325 mg 12/14/24 08:00 12/15/24 08:22 Aspirin E.C. 325 Mg Tablet PO 325 mg DAILYCM TARIK Administration Clopidogrel Bisulfate 75 mg 12/14/24 10:00 12/15/24 08:23 Clopidogrel Bisulfate 75 Mg Tablet PO 75 mg DAILY TARIK Administration Fluticasone Propionate 2 spray 12/13/24 22:00 12/15/24 08:20 Fluticasone 0.05% 1 [place] Nasal.Sry NASAL 2 spray BID TARIK Administration Furosemide 40 mg 12/14/24 10:00 12/15/24 08:22 Furosemide 40 Mg Tablet PO 40 mg DAILY TARIK Administration Sodium Chloride 250 mls @ 15 mls/hr 12/13/24 18:22 IV .[id number] PRN Saline Flush Sodium Chloride 250 mls @ 15 mls/hr 12/13/24 18:22 IV .[id number] PRN Additional IVPB Infusion Levothyroxine Sodium 175 mcg 12/14/24 06:00 12/15/24 05:54 Levothyroxine 175 Mcg Tablet PO 175 mcg DAILY@0600 TARIK Administration Magnesium Chloride 128 mg 12/14/24 10:00 12/15/24 08:23 Magnesium Chloride 64 Mg Delay Rel.Tablet PO 128 mg DAILY TARIK Administration Metoprolol Tartrate 50 mg 12/13/24 22:00 12/15/24 08:22 Metoprolol Tartrate 50 Mg Tablet PO 50 mg BID TARIK Administration Protocol Multivitamins 1 tablet 12/14/24 08:00 12/15/24 08:22 Multivitamins,Therapeutic Tablet PO 1 tablet BREAKFAST TARIK Administration Ondansetron HCl 4 mg 12/13/24 18:41 Ondansetron Odt 4 Mg Tablet PO Q8H PRN PRN nausea/vomiting Pantoprazole Sodium 40 mg 12/13/24 22:00 12/15/24 08:23 Pantoprazole Sodium 40 Mg Tablet PO 40 mg BID TARIK Administration Fluticasone/Salmeterol 1 puff 12/13/24 22:00 12/15/24 08:20 Fluticasone/Salmeterol 232-14 Inhaler INHALATION 1 puff BID TARIK Administration Senna/Docusate Sodium 1 tablet 12/13/24 22:00 12/15/24 08:22 Senna/Docusate Sodium 1 Tablet PO Not Given BID TARIK Simvastatin 80 mg 12/13/24 22:00 12/14/24 19:59 Simvastatin 20 Mg Tablet PO 80 mg QHS TARIK Administration Sodium Chloride 10 - 40 ml 12/13/24 18:22 0.9% Saline Lock 10 Ml Syringe IV UD PRN SALINE FLUSH Tamsulosin HCl 0.4 mg 12/13/24 22:00 12/14/24 20:01 Tamsulosin Hcl 0.4 Mg Capsule PO 0.4 mg QHS TARIK Administration Tuberculin PPD 0.1 ml 12/21/24 10:00 Tuberculin,Purif.Prot.Deriv. 50 Tu/Ml Vial ID 12/21/24 10:01 X1 ONE Problem List BPH (benign prostatic hyperplasia) (Acute) Hypothyroidism (Acute) Allergic rhinitis (Acute) Peptic ulcer (Acute) Atrial fibrillation (Acute) Acute blood loss anemia (Acute) Acute respiratory failure with hypoxia (Acute) COPD exacerbation (Chronic) Sepsis (Acute) Abdominal abscess (Acute) Abdominal hematoma (Acute) Debility (Acute) Hyperlipidemia (Chronic) CAD (coronary artery disease) (Chronic) Vital Signs Temp Pulse Resp BP Pulse Ox O2 Del Method 97.9 F 105 H 16 112/67 98 Room Air 12/15/24 09:48 12/15/24 09:48 12/15/24 09:48 12/15/24 09:48 12/15/24 09:48 12/15/24 09:48 Oxygen Delivery Method Room Air Weight: 66.2 kg Body Mass Index (BMI) 22.1 Sodium 134 mmol/L (133-145) 12/14/24 05:53 Potassium 3.5 mmol/L (3.3-5.1) 12/14/24 05:53 Chloride 96 mmol/L (98-108) L 12/14/24 05:53 Carbon Dioxide 28.2 mmol/L (21.0-32.0) 12/14/24 05:53 Anion Gap 10 (5-15) 12/14/24 05:53 BUN 24 mg/dL (4-19) H 12/14/24 05:53 Creatinine 0.66 mg/dL (0.70-1.20) L 12/14/24 05:53 Est GFR (MDRD) Non-Af 94 (>60) 12/14/24 05:53 BUN/Creatinine Ratio 35.6 RATIO (10-20) H 12/14/24 05:53 Glucose 115 mg/dL (70-99) H 12/14/24 05:53 Assessment/Plan: 1. Pain: acetaminophen 650mg PO Q4H PRN pain 1-10/fever. Resident has had 1 PRN dose for a pain score of 8 in the head. Monitor pain scores before/after prn administration for response, PRN pain medication usage, symptoms of pain/resident distress and ability to participate in therapy. 2. Bowel: senna/docusate 1T PO BID. Please continue to monitor for constipation and diarrhea. 3. COPD: fluticasone/salmeterol 232/14mcg 1 puff BID and albuterol MDI 2 puffs Q4H PRN SOB/wheezing. Resident has not used any prn doses at this time. Please continue to monitor for S/S of thrush, SOB, wheezing, HR (range 94-107). Please rinse mouth with water and spit following administration to prevent thrush. 4. CAD: metoprolol tartrate 50mg PO BID, clopidogrel 75mg PO daily and aspirin 81mg PO daily. Monitor for chest pain, shortness of breath, exercise tolerance, BP (range since admission =100/66-121/77). Monitor for bradyarrhythmia, fatigue, sleep disturbance and for new/worsening heart failure symptoms. For diabetic patients, monitor glucose. Monitor for symptoms of bleeding (including melena, hemoptysis, hematuria, epistaxis, new-onset headache), hemoglobin (last Hgb =9.7g/dL), for allergic reactions and platelets if clinically indicated (can rarely cause TTP). 5. Hypothyroidism: levothyroxine 175mcg PO daily. Please continue to monitor TSH (last 06/25/24 WNL) and S/S of hypo/hyperthyroidism. 6. Edema: furosemide 40mg PO daily. Please continue to monitor for S/S of edema, SCr (last 0.66mg/dL), potassium (last 3.5mmol/L). 7. Allergic rhinitis: fluticasone 0.05% 2 sprays nasal BID. Please continue to monitor for S/S of allergies and nasal irritation. 8. Barretts esophagus: pantoprazole 40mg PO BID. Monitor for diarrhea (consider possibility of C. diff if develops). Consider serum magnesium level and B12 level with long-term use if indicated. If clinically appropriate, consider dose reduction/weaning of medication due to jail risks of C. diff and fractures ([place]). 9. Hyperlipidemia: simvastatin 80mg PO QHS. Last FLP =06/25/24. LDL at goal at last check for patient. Please continue to monitor LFTs (last 11/30/24) and muscle pain. 10. BPH: tamsulosin 0.4mg PO QHS. Please continue to monitor for S/S of BPH, BP. 11. Nausea: ondansetron 4mg PO Q8H PRN nausea/vomiting. Resident has not used any prn doses at this time. Please continue to monitor for nausea, vomiting, PRN usage. 12. Hypomagnesemia/nutrition: magnesium 128mg PO daily and multivitamin 1T PO daily. Please continue to monitor. 13. Dry eyes: artificial tears 1gtt OU Q1H PRN dry eyes. Resident has not used any prn doses at this time. Please continue to monitor for dry eyes and PRN usage. Assessment/Plan for indications treated with psychotropic medications: Resident is not prescribed scheduled or prn psychotropic medications at the time of this drug regimen review. Medical chart and medication regimen reviewed. The following medication irregularities or issues were identified: No recommendations for resident at this time. Date Date of Note: 12/15/24 Documented by User: Dr. Haider Lazo MD 12/15/24 16:23 TCU RX Drug Regimen Review Provider Comments Provider responsibility Provider Comments to Recommendations by Pharmacy Agree
--- NOTE | 2024-12-15 16:08 | CASEMGMT ---
Social Work SW met with pt and completed initial assessment. Contacts were verified. Pt confirmed code status as full code. SW Educated pt to Medicare benefit and copy coverage. Pt lives at home with his in a two story home. Pt's bedroom is on the second floor. Pt was independent with self care prior to hospitalization and he and shared IADL responsibilities. Pt currently has a wound vac. Pt has no concerns with returning home at time of discharge and states his can assist as needed. SW will continue to follow for dc planning. BIMS () and PHQ2 () interviews were completed on this date for MDS assessment. MARVA Marquis
--- NOTE | 2024-12-15 19:07 | NURSING ---
Patient had foul stool with mucus and reports he has had a couple of episodes of bowel incontinence which is not normal. Dr. Lazo made aware and order to check stool for c-diff. Placed in enteric precautions.
[2024-12-15 20:35] VITALS: PULSE 104
[2024-12-15 22:24] VITALS: BP 103/73; PULSE 104
[2024-12-16 05:23] VITALS: PULSE 80
[2024-12-16] MEDS: Fluticasone 0.05% 1 SPRAY NASAL.SRY 2 SPRAY NASAL ×2 (07:59→21:09)
[2024-12-16] MEDS: Fluticasone/Salmeterol 232-14 Inhaler 1 PUFF INHALATION ×2 (08:00→21:09)
[2024-12-16] MEDS: Aspirin E.C. 325 MG Tablet PO (08:00)
[2024-12-16] MEDS: Magnesium Chloride 64 MG Delay Rel.Tablet 128 MG PO (08:01)
[2024-12-16 08:04] VITALS: BP 102/65; PULSE 102
[2024-12-16 10:00] VITALS: BP 102/65; PULSE 102; RESP 16; TEMP 36.4; O2SAT 98
[2024-12-16 15:31] VITALS: BMI 23.3
--- NOTE | 2024-12-16 16:28 | CHAPLAIN ---
Type of Pastoral Visit _x__ Initial Visit ___ Follow-up Visit ___ On-call Visit ___ General Patient Visit ___ Spiritual Assessment ___ Family Conference ___ Bereavement ___ Rapid Response ___ Code Blue ___ Other (describe below) Pastoral Care Referral From _x__ Patient ___ Family ___ Nurse ___ Physician ___ Store Specialist ___ Bobbin Painter ___ Other (describe below) Sacrament/Intervention _x__ Active listening ___ Anointing ___ Roman Catholic ___ Bereavement ___ Communion _x__ Kamila exploration ___ _x__ Life review _x__ Prayer ___ Reconciliation ___ Sacrament of Sick _x__ Supportive presence ___ Wedding ___ Other (describe below) Pastoral Comments spouse of patient is just leaving the room to attend to our animals; pt is in chair and open to visits and conversation; pt gives initial thoughts on his more recent decline in health and how he might be handling it; pt admits that this is a hard thing to process; pt 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
[2024-12-16 21:05] VITALS: PULSE 104
[2024-12-17 08:32] VITALS: BP 100/51; PULSE 111; RESP 18; TEMP 36.4; O2SAT 95
[2024-12-17 08:37] VITALS: PULSE 111
[2024-12-17] MEDS: Magnesium Chloride 64 MG Delay Rel.Tablet 128 MG PO (08:37)
[2024-12-17] MEDS: Aspirin E.C. 325 MG Tablet PO (08:38)
[2024-12-17] MEDS: Fluticasone 0.05% 1 SPRAY NASAL.SRY 2 SPRAY NASAL ×2 (08:40→20:35)
[2024-12-17] MEDS: Fluticasone/Salmeterol 232-14 Inhaler 1 PUFF INHALATION ×2 (08:41→20:35)
[2024-12-17 10:00] VITALS: PULSE 98
--- NOTE | 2024-12-17 11:33 | CASEMGMT ---
Social Work IDT met with patient, and dtr for care plan meeting. Discussed patient's progress in PT/OT/SN/RDN. Educated to Medicare benefit. Provided pt/family with written communication of insurance process and copay coverage during stay. Pt has a wound vac currently. inquired about hospital bed at ID. SW to coordinate needs. SW educated to skilled HHC at ID. Encouraged family to attend therapy sessions to ensure can care for pt at home. confirmed she performs all IADLs. No concerns noted. SW will continue to follow for DC planning. Madeline Ramos FORCE DISPATCHER ELECTRICAL TESTER BATTERY
--- NOTE | 2024-12-17 15:19 | NURSING ---
[facility] Psychiatrist Note; Activity Asset: Nabila Wray is independent in his choice of daily activities. His family is here daily and bring him in items he may need. He welcomes the fur coat sewer and therapy dog when available. He watches TV, reads and will rest. Staff will remind him of weekly activities and respect his right to say no.
--- NOTE | 2024-12-17 20:26 | NURSING ---
Patient requested medications early due to being ready to go to sleep
[2024-12-17 20:36] VITALS: PULSE 98
[2024-12-17] MEDS: Senna/Docusate Sodium 1 Tablet PO (20:36)
[2024-12-18 08:49] VITALS: BP 100/66; PULSE 103; RESP 18; TEMP 36.3; O2SAT 97
[2024-12-18] MEDS: Fluticasone/Salmeterol 232-14 Inhaler 1 PUFF INHALATION ×2 (08:51→21:10)
[2024-12-18] MEDS: Fluticasone 0.05% 1 SPRAY NASAL.SRY 2 SPRAY NASAL ×2 (08:51→21:10)
[2024-12-18 08:52] VITALS: PULSE 103
[2024-12-18] MEDS: Magnesium Chloride 64 MG Delay Rel.Tablet 128 MG PO (08:52)
[2024-12-18] MEDS: Aspirin E.C. 325 MG Tablet PO (08:52)
[2024-12-18] MEDS: Senna/Docusate Sodium 1 Tablet PO ×2 (08:53→21:10)
[2024-12-18 21:05] VITALS: BP 112/62; PULSE 98; RESP 17; O2SAT 93
[2024-12-18 21:09] VITALS: BP 112/62; PULSE 98
[2024-12-19 05:58] LABS: Hematocrit 27.8 % (40-54); Hemoglobin 9.0 g/dL (13.0-16.5); Immature Granulocytes Count 0.130 X10^3/uL (0.0-0.0); Mean Corp Hgb Conc 32.4 g/dL (32-36); Mean Corpuscular Volume 78.8 fL (80-94); Mean Platelet Vol. 11.9 fl (6.2-12.0); NRBC Flagged by Analyzer 0 % (0-5); POSITIVE DIFFERENTIAL YES; Platelet Count 254 K/mm3 (150-450); RBC Distribution Width CV 18.7 % (11.6-14.6); RBC Distribution Width SD 53.4 fl (35.1-43.9); Red Blood Count 3.53 M/mm3 (4.6-6.2); White Blood Count 9.4 K/mm3 (4.4-11.0)
[2024-12-19 06:02] LABS: Differential Indicated SCAN CRITERIA MET
[2024-12-19 06:19] LABS: Anion Gap 11 (5-15); BUN 22 mg/dL (4-19); BUN/Creat Ratio 33.6 RATIO (10-20); Calcium,Total 8.2 mg/dL (7.6-11.0); Carbon Dioxide 23.8 mmol/L (21.0-32.0); Chloride 102 mmol/L (98-108); Estimated Creatinine Clearance 70.06 ml/min (50-250); Glucose 87 mg/dL (70-99); Potassium 3.1 mmol/L (3.3-5.1)
[2024-12-19 06:33] LABS: Differential Comment SCANNED
--- NOTE | 2024-12-19 09:30 | MDS.RN ---
Pain assessment for MDS complete.
[2024-12-19 10:00] VITALS: PULSE 102
[2024-12-19 10:05] VITALS: BP 108/67; PULSE 102; RESP 17; TEMP 36.6; O2SAT 97
[2024-12-19 10:07] VITALS: BP 108/67; PULSE 102
[2024-12-19] MEDS: Aspirin E.C. 325 MG Tablet PO (10:07)
[2024-12-19] MEDS: Magnesium Chloride 64 MG Delay Rel.Tablet 128 MG PO (10:07)
[2024-12-19] MEDS: Fluticasone/Salmeterol 232-14 Inhaler 1 PUFF INHALATION ×2 (10:08→22:15)
[2024-12-19] MEDS: Fluticasone 0.05% 1 SPRAY NASAL.SRY 2 SPRAY NASAL ×2 (10:08→22:13)
[2024-12-19] MEDS: Potassium Chloride Oral Tablet 20 MEQ 40 MEQ PO (10:17)
--- NOTE | 2024-12-19 11:59 | WOUNDNOTE ---
wound photo: abdomen
--- NOTE | 2024-12-19 16:10 | CASEMGMT ---
Social Work SW notified pt is requesting to DC. SW spoke with therapy and wound nurse. Both recommending additional days so wound vac can be DC'd prior to home. SW presented to pt's room. present at bedside. SW discussed discharge plans. Educated to therapy and wound nurse recommendation. SW offered DC 12/24. Pt and agreed. SW offered skilled HHC. Both agreed. SW provided list of skilled HHC agencies within geographical area, INN with insurance, that include quality and resource data via [employer] guide. SW educated HHC agency will contact pt for SOC date date, but typically 2-3 days after DC, pending PCP signing orders. Confirmed need for hospital bed. SW to refer to [facility]. Family will transport at DC. Both appreciative. IDT updated. Plan: DC home with 12/24, HHC PT/OT/SN, hospital bed Madelinecarmen Ramos MARKETING OPERATIONS COORDINATOR ALARM ADJUSTER
--- NOTE | 2024-12-19 18:11 | NURSING ---
visitor was assisting pt with putting on new socks, pt called out and stated his heel was bleeding, nurse cleaned area to observe, pt states visitor must of gotten him with a nail, little amount of skin lifted from heal and bleeding, dry sterile dressing applied abd and kerlix for pad and protect.
[2024-12-19 22:07] VITALS: BP 116/65; PULSE 90
[2024-12-19] MEDS: Senna/Docusate Sodium 1 Tablet PO (22:12)
[2024-12-20 06:52] LABS: Hematocrit 29.4 % (40-54); Hemoglobin 9.3 g/dL (13.0-16.5)
--- NOTE | 2024-12-20 07:00 | NURSING ---
Dr. Lazo notified of Occult stool results. New order to consult Dr. Anderson.
--- NOTE | 2024-12-20 07:24 | NURSING ---
Dr. Anderson notified of order for consult due to positive occult stool.
[2024-12-20 07:39] LABS: Anion Gap 10 (5-15); BUN 23 mg/dL (4-19); BUN/Creat Ratio 35.1 RATIO (10-20); Calcium,Total 8.5 mg/dL (7.6-11.0); Carbon Dioxide 23.6 mmol/L (21.0-32.0); Chloride 104 mmol/L (98-108); Estimated Creatinine Clearance 70.06 ml/min (50-250); Glucose 109 mg/dL (70-99); Potassium 3.6 mmol/L (3.3-5.1)
[2024-12-20 09:51] VITALS: BP 106/62; PULSE 103; RESP 17; TEMP 36.6; O2SAT 97
[2024-12-20] MEDS: Fluticasone/Salmeterol 232-14 Inhaler 1 PUFF INHALATION ×2 (09:53→20:11)
[2024-12-20] MEDS: Fluticasone 0.05% 1 SPRAY NASAL.SRY 2 SPRAY NASAL ×2 (09:53→20:11)
[2024-12-20] MEDS: Senna/Docusate Sodium 1 Tablet PO (09:54)
[2024-12-20] MEDS: Potassium Chloride Oral Tablet 20 MEQ PO (09:55)
[2024-12-20] MEDS: Aspirin E.C. 325 MG Tablet PO (09:55)
[2024-12-20 09:56] VITALS: BP 106/62; PULSE 103
[2024-12-20] MEDS: Magnesium Chloride 64 MG Delay Rel.Tablet 128 MG PO (09:56)
[2024-12-20 10:00] VITALS: PULSE 107; O2SAT 97
--- NOTE | 2024-12-20 13:10 | EX.PCM.CON.G ---
HPI Consult Data Date of Consult: 12/20/24 HPI Narrative HPI Narrative: NILS TUCKER, is a 83-year-old male, Nils Tucker, who presented to the transitional care unit post-incisional hernia repair. He was transferred to the ICU due to a COPD exacerbation and acute respiratory failure with hypoxia. The patient has a history of atrial fibrillation. The patient is currently on IV antibiotics and requires wound VAC changes every Sunday, Sunday, and Sunday. He is on room air. The patient had recent diarrhea which was C. Difficile negative. Reason for consult: Fecal occult positive stools in the setting of anemia. Labs: WBC: Improved to 22.44 (down from 37). Hemoglobin: Trending down from 9.7 to 9.2. Previous low was 6.9, after which he received 3 units PRBCs (prior note mentioned 1 unit, consult note mentions 3 units total for the anemia 2/2 hematoma). The Hgb was stable at 8.7 post-transfusion. Wound culture: 1 colony forming unit coagulase negative staph. Sputum culture: Normal terence. Blood cultures: Negative. C. Difficile check: Negative. Fecal occult: Positive. Imaging/Procedures: Initial CT A/P: Post-surgical hematoma versus developing abscess. Incision and drainage of abdominal hematoma performed at bedside. CTA chest/abdomen: To rule out PE and intra-abdominal bleed (results not provided). Medications: Currently on IV antibiotics (finished prior to current transfer per consult note, but on IV antibiotics per 12/12 note - clarification needed). Received Zosyn/Vancomycin IV initially. Lasix given in ICU for fluid overload. Hold Plavix, continue Aspirin. No anticoagulation for atrial fibrillation.] [facility] Medical History History of left heart catheterization Paroxysmal atrial fibrillation Mild intermittent asthma without complication Shortness of breath Peptic ulcer, site unspecified, unspecified as acute or chronic, without hemorrhage or perforation Hyperlipidemia Chronic fatigue, unspecified Essential hypertension Constipation CAD (coronary artery disease) BPH associated with nocturia Delcid's esophagus without dysplasia Acquired hypothyroidism Abdominal wall hernia Atherosclerosis of coronary artery of solomon heart without angina pectoris Hiatal hernia Hypothyroidism Delcid's esophagus GERD (gastroesophageal reflux disease) DDD (degenerative disc disease), lumbar Home Medications ?Medication ?Instructions ?Recorded ?Last Taken ?Type acetaminophen 325 mg tablet 650 mg PO Q4H PRN Pain Or Fever 12/09/18 Unknown History magnesium oxide 400 mg PO DAILY supplement 12/09/18 07/03/24 History multivitamin 1 tab PO QAM vitamin 12/09/18 Unknown History pantoprazole 40 mg tablet,delayed 40 mg PO BID prevent ulcers 12/09/18 07/03/24 History release simvastatin 80 mg tablet 80 mg PO QHS cholesterol 12/09/18 Unknown History fluticasone propionate 50 2 spray intranasal BID stuffiness 09/17/21 07/03/24 History mcg/actuation nasal spray,suspension ibuprofen 200 mg tablet 200 mg PO Q6H PRN pain #30 tabs 01/01/23 Unknown Rx levothyroxine 175 mcg tablet 175 mcg PO DAILY disorder of 06/30/23 08/06/24 History thyroid gland tamsulosin 0.4 mg capsule 0.4 mg PO QHS prostate 06/30/23 Unknown History albuterol sulfate 90 mcg/actuation 2 puff inhalation Q4H PRN 04/15/24 Unknown History aerosol inhaler shortness of breath or wheezing clopidogrel 75 mg tablet 75 mg PO DAILY blood thinner #30 07/03/24 08/06/24 Rx tabs fluticasone furoate 200 1 inh inhalation QDAY lungs 11/11/24 Unknown History mcg-vilanterol 25 mcg/dose inhalation powder (Breo Ellipta) metoprolol tartrate 50 mg tablet 50 mg PO BID blood pressure #180 11/11/24 Unknown Rx tabs aspirin 325 mg tablet,delayed 325 mg PO DAILY heart health 12/13/24 Unknown History release ondansetron HCl 4 mg tablet 4 mg PO Q8H PRN PRN nausea/vomiting 12/13/24 Unknown History torsemide 20 mg tablet 20 mg PO DAILY swelling 12/13/24 Unknown History Allergy/AdvReac Type Severity Reaction Status Date / Time cefdinir (From Omnicef) Allergy Intermediate Diarrhea Verified 11/30/24 10:33 atorvastatin AdvReac Intermediate myalgias Verified 11/30/24 10:33 azithromycin (From Zithromax) AdvReac Nausea/Vom/ Verified 11/30/24 10:33 Diarrhea Family History Mother Emphysema of lung Father Emphysema of lung Surgical History History of ventral hernia repair Hx laparoscopic cholecystectomy History of repair of hiatal hernia History of umbilical hernia repair 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) History of back surgery (~04/25/17) Social History household members: spouse Smoking Status: Former smoker quit date: 02/12/81 pack-years: 13 Tobacco: How many years used: 27 Electronic Cigarette Use: not used how long ago did patient quit smokin years ago alcohol intake: former substance use type: does not use ROS Constitutional Constitutional: Denies fatigue, fever(s), poor appetite, weight gain or weight loss Gastrointestinal Gastrointestinal: Denies belching, bloating, change in bowel habits, change in stool character, chewing difficulty, coffee ground emesis, constipation, cramping, diarrhea, dyspepsia, dysphagia, early satiety, excessive flatus, fecal incontinence, heartburn, hematemesis, hematochezia, hemorrhoids, loose stools, melena, nausea, odynophagia, rectal bleeding, tenesmus, vomiting or weight changes Physical Exam Const alert, oriented x3, no apparent distress and healthy appearing General Appearance: cooperative GI normal to inspection, nondistended, normoactive bowel sounds, soft to palpation, non-tender and non-distended Percussion: normal to percussion Rectal Exam: deferred Lab / Micro Data 12/20/24 06:19 12/20/24 06:19 Labs: Laboratory Results - last 24 hr 12/20/24 06:19: Hgb 9.3 L, Hct 29.4 L, Sodium 137, Potassium 3.6, Chloride 104, Carbon Dioxide 23.6, Anion Gap 10, BUN 23 H, Creatinine 0.65 L, Estim Creat Clear Calc 70.06, Est GFR (MDRD) Non-Af 95, BUN/Creatinine Ratio 35.1 H, Glucose 109 H, Calcium 8.5 Micro: Microbiology 12/19/24 20:10 Stool Stool Occult Blood (CLAY) - Final Occult Blood Positive Assessment & Plan Assessment/Plan (1) Atrial fibrillation: (2) Acute blood loss anemia: PLAN: Assessment The patient is a complex 83 M with multiple post-surgical complications following an incisional hernia repair. He has an active anemic state with a downward trend in hemoglobin (9.7 -> 9.2), which has previously required multiple blood transfusions due to a hematoma. The current presentation is complicated by new onset fecal occult positive stools, suggesting potential gastrointestinal bleeding.[place] issues: Anemia secondary to probable GI bleed:?The downward trend in Hgb combined with positive fecal occult stools strongly suggests a GI source of blood loss. Recent major surgery and hematoma drainage:?Potential for ongoing bleeding from surgical site, though prior Hgb stabilization and current Hgb trend (9.7-9.2) suggests a more chronic or new source. Medication management:?Patient is on Aspirin and had Plavix held. The use of antiplatelet agents increases the risk of GI bleeding, especially in a post-surgical patient. Infection/Wound status:?WBC is elevated but improving. Wound has minimal growth on culture. Plan Diagnostic Workup for GI Bleed: Order serial Hemoglobin and Hematocrit levels to monitor for ongoing blood loss. Stat type and screen for potential future blood transfusions. Consult Gastroenterology (GI) for evaluation and management of positive fecal occult stools and anemia. EGD on 12/22/2024 and consider colonoscopy to identify source of bleeding. Medication Review: Review indication for continued Aspirin in the setting of active bleeding and hold if appropriate, in consultation with primary team/cardiology regarding stroke risk (due to A-fib history, though no anticoagulation currently). The decision hold aspirin and Plavix and no anticoagulation for A-fib as per primary team. Charges/Coding Visit Charges Inpatient E&M: 97168 [facility] Init L2
[2024-12-20 20:11] VITALS: BP 112/65; PULSE 99
[2024-12-20 20:20] VITALS: BP 112/65; PULSE 99; RESP 16; O2SAT 96
[2024-12-21 04:34] LABS: Anion Gap 9 (5-15); BUN 21 mg/dL (4-19); BUN/Creat Ratio 32.5 RATIO (10-20); Calcium,Total 8.4 mg/dL (7.6-11.0); Carbon Dioxide 23.9 mmol/L (21.0-32.0); Chloride 105 mmol/L (98-108); Estimated Creatinine Clearance 70.06 ml/min (50-250); Glucose 105 mg/dL (70-99); Potassium 3.4 mmol/L (3.3-5.1)
[2024-12-21 08:00] VITALS: BP 97/71; PULSE 107; RESP 17; TEMP 36.6; O2SAT 97
[2024-12-21] MEDS: Aspirin E.C. 325 MG Tablet PO (08:04)
[2024-12-21] MEDS: Magnesium Chloride 64 MG Delay Rel.Tablet 128 MG PO (08:04)
[2024-12-21] MEDS: Fluticasone 0.05% 1 SPRAY NASAL.SRY 2 SPRAY NASAL ×2 (08:04→21:00)
[2024-12-21] MEDS: Potassium Chloride Oral Tablet 20 MEQ PO (08:04)
[2024-12-21] MEDS: Fluticasone/Salmeterol 232-14 Inhaler 1 PUFF INHALATION ×2 (08:05→21:00)
[2024-12-21 08:06] VITALS: BP 97/71
[2024-12-21 10:00] VITALS: PULSE 105; O2SAT 96
[2024-12-21] MEDS: Tuberculin,Purif.prot.deriv. 50 TU/ML Vial 0.1 ML ID (15:55)
[2024-12-21 21:00] VITALS: BP 109/64; PULSE 107; RESP 17; O2SAT 98
[2024-12-22 06:10] LABS: Anion Gap 9 (5-15); BUN 16 mg/dL (4-19); BUN/Creat Ratio 24.0 RATIO (10-20); Calcium,Total 8.5 mg/dL (7.6-11.0); Carbon Dioxide 23.3 mmol/L (21.0-32.0); Chloride 106 mmol/L (98-108); Estimated Creatinine Clearance 70.06 ml/min (50-250); Glucose 104 mg/dL (70-99); Potassium 3.7 mmol/L (3.3-5.1)
--- NOTE | 2024-12-22 07:54 | PCM.DC.SUM ---
Providers Date of Admission: 12/13/24 Primary Care Physician: Dr. Wily Espinal MD Consultations 12/13/24 18:24 Consult: Onc/Wound/foamite mixer Routine Comment: Reason for Consult:: s/p hernia repair hematoma/infection 12/20/24 07:02 Consult: Gastroenterology Routine Consulting Provider: [facility] Reason for Consult: Positive Occult Stool EMERGENT Consult: No MD Notified: Yes Date Notified: 12/20/24 Time Notified: 07:02 Method of Notification: Text Reason For Visit: HERNIA REPAIR S/P HEMATOMA Diagnosis Discharge Diagnosis (1) Atrial fibrillation: Status: Acute Code(s): I48.91 - Unspecified atrial fibrillation (2) Acute blood loss anemia: Status: Acute Code(s): D62 - Acute posthemorrhagic anemia Plan 83 year old male with below past medical history hospitalized for abdominal pain, sepsis 2/2 abdominal hematoma/abscess s/p incision and drainage, complicated by acute respiratory failure with hypoxia 2/2 COPD, acute blood loss anemia requiring transfusions, admitted to TCU with debility, here for rehabilitation, strengthening, wound care, prior to discharge home with . Debility - PT/OT. Dysphagia - ST. Pain - Tylenol 650mg q4 prn. Bowel - senna/colace 1 tablet bid. Adult immunization - Administer pneumonia vaccine, covid vaccine, flu vaccine as appropriate. DVT prophylaxis - Hold, on dual antiplatelet therapy, recent bleed. COPD - Fluticasone/Salmeterol 232-14 1 puff bid, Albuterol 2 puffs q4 prn. Coronary artery disease - Metoprolol 50mg bid, Plavix 75mg daily, Aspirin 81mg daily. Allergic rhinitis - Flonase 2 sprays nasal bid. Edema - Furosemide 40mg daily. Hypothyroidism - Levothyroxine 175mcg daily. Hypomagnesemia - Magnesium 128mg daily. Nutrition - MVI 1 tablet daily. Nausea - Zofran 4mg q8 prn. Barretts esophagus - Pantoprazole 40mg bid. Hyperlipidemia - Simvastatin 80mg qhs. BPH - Tamsulosin 0.4mg qhs. Medications at Discharge Home Medications acetaminophen 325 mg tablet 650 mg PO Q4H PRN Pain Or Fever 12/09/18 magnesium oxide 400 mg PO DAILY supplement 12/09/18 multivitamin 1 tab PO QAM vitamin 12/09/18 simvastatin 80 mg tablet 80 mg PO QHS cholesterol 12/09/18 fluticasone propionate 50 mcg/actuation nasal spray,suspension 2 spray intranasal BID stuffiness 09/17/21 levothyroxine 175 mcg tablet 175 mcg PO DAILY disorder of thyroid gland 06/30/23 tamsulosin 0.4 mg capsule 0.4 mg PO QHS prostate 06/30/23 albuterol sulfate 90 mcg/actuation aerosol inhaler 2 puff inhalation Q4H PRN shortness of breath or wheezing 04/15/24 clopidogrel 75 mg tablet 75 mg PO DAILY blood thinner #30 tabs 07/03/24 fluticasone furoate 200 mcg-vilanterol 25 mcg/dose inhalation powder (Breo Ellipta) 1 inh inhalation QDAY lungs 11/11/24 metoprolol tartrate 50 mg tablet 50 mg PO BID blood pressure #180 tabs 11/11/24 aspirin 325 mg tablet,delayed release 325 mg PO DAILY heart health 12/13/24 ondansetron HCl 4 mg tablet 4 mg PO Q8H PRN PRN nausea/vomiting 12/13/24 torsemide 20 mg tablet 20 mg PO DAILY swelling 12/13/24 pantoprazole 40 mg tablet,delayed release 40 mg PO BID 30 days #60 tabs 12/22/24 potassium chloride 20 mEq tablet,extended release(part/cryst) 20 meq PO DAILYCM 30 days #30 tabs 12/22/24 Hospital Course Operations - (See below.) Procedures None Summary of Care Provided Minutes Spent on Discharge: 35 Hospital Course: 83 year old male with below past medical history hospitalized for abdominal pain, sepsis 2/2 abdominal hematoma/abscess s/p incision and drainage, complicated by acute respiratory failure with hypoxia 2/2 COPD, acute blood loss anemia requiring transfusions, admitted to TCU with debility, here for rehabilitation, strengthening, wound care, prior to discharge home with . Discharge home with 12/24/2024, [facility] PT/OT/SN, Hospital Bed. Hospital Bed: Patient requires a hospital bed d/t needing frequent changes in position to alleviate pain, prevent ongoing pressure areas, assist in healing of current pressure areas, prevent aspiration or d/t respiratory condition that is not feasible in an ordinary bed. Dx: COPD, chronic respiratory failure with hypoxia. 12/22/2024 Dr. Anderson performing EGD for anemia, +hemoccult. Physical Exam Const alert General Appearance: cooperative HEENT normocephalic Eyes PERRL and EOMs intact bilaterally Neck supple, no JVD and no carotid bruits Resp normal respiratory effort, normal air movement and clear to auscultation bilaterally Cardio regular rate and regular rhythm GI normal to inspection, nondistended, normoactive bowel sounds, non-tender and non-distended Extremity normal capillary refill General Extremity: Negative for edema Skin no rashes or lesions noted General Skin Exam: no breakdown Psych affect normal Appearance: appropriate Weight / BMI Weight Weight: 69.428 kg Body Mass Index (BMI) 23.3 ABG / Lab / Microbiology Data 12/20/24 06:19 12/22/24 05:11 Laboratory: Laboratory Results - last 24 hr 12/22/24 05:11: Sodium 139, Potassium 3.7, Chloride 106, Carbon Dioxide 23.3, Anion Gap 9, BUN 16, Creatinine 0.67 L, Estim Creat Clear Calc 70.06, Est GFR (MDRD) Non-Af 94, BUN/Creatinine Ratio 24.0 H, Glucose 104 H, Calcium 8.5 Microbiology: Microbiology 12/19/24 20:10 Stool Stool Occult Blood (CLAY) - Final Occult Blood Positive D/C Instructions Discharge Activity: Return to Normal Activity, May Shower and Use Walker Weight Bearing Status: Weight bearing as tolerated Call your doctor if you observe: Fever of 101 or Higher, Inability to urinate, Inability to have a bowel movement, Shortness of breath, Dizziness, Fainting spells, Swelling in the ankles, Chest pain and Uncontrolled pain DC O2, CPAP, BIPAP Needs Home O2 Discharge instructions: No Additional Instructions: Discharge home with 12/24/2024, [facility] PT/OT/SN, Hospital Bed. Please Follow Up With: Emeli Su NP Pulmonary Meaningful Use Info Meaningful Use Meaningful Use Diagnoses (Choose all that apply): None applicable Discharge Plan Admission Admit Date/Time: 12/13/24 17:45 Primary Reason for Your Visit: Debility. Attending Provider: Haider Lazo Chi Primary Care Provider: Wily Espinal Consulting Providers: Randy Baugh; Monica,Celestine; Jeanne Alonzo; Jen Perdomo; Estee Gold Instructions Additional Instructions / Restrictions: Discharge home with 12/24/2024, [facility] PT/OT/SN, Hospital Bed. Discharge Orders/Prescriptions Prescriptions: New potassium chloride 20 mEq Tablet,Er Particles/Crystals 20 meq PO DAILYCM 30 Days Qty: 30 0RF pantoprazole 40 mg Tablet,Delayed Release (Dr/Ec) 40 mg PO BID 30 Days Qty: 60 0RF Continued magnesium oxide 400 mg magnesium capsule 400 mg PO DAILY acetaminophen 325 mg tablet 650 mg PO Q4H PRN (Reason: Pain Or Fever) multivitamin Tablet 1 tab PO QAM simvastatin 80 mg tablet 80 mg PO QHS albuterol sulfate 90 mcg/actuation HFA aerosol inhaler 2 puff inhalation Q4H PRN (Reason: shortness of breath or wheezing) fluticasone furoate-vilanterol [Breo Ellipta] 200-25 mcg/dose blister with device 1 inh inhalation QDAY fluticasone propionate 50 mcg/actuation spray,suspension 2 spray INTRANASAL BID Patient Comments: USE 2 SPRAYS IN EACH NOSTRIL ONCE DAILY. RINSE MOUTH AFTER USE. levothyroxine 175 mcg tablet 175 mcg PO DAILY tamsulosin 0.4 mg capsule 0.4 mg PO QHS clopidogrel 75 mg Tablet 75 mg PO DAILY Qty: 30 6RF torsemide 20 mg tablet 20 mg PO DAILY ondansetron HCl 4 mg tablet 4 mg PO Q8H PRN PRN (Reason: nausea/vomiting) aspirin 325 mg tablet,delayed release (DR/EC) 325 mg PO DAILY metoprolol tartrate 50 mg tablet 50 mg PO BID Qty: 180 3RF Discontinued pantoprazole 40 mg tablet,delayed release (DR/EC) 40 mg PO BID ibuprofen 200 mg tablet 200 mg PO Q6H PRN (Reason: pain) Qty: 30 0RF Referrals / Follow Up: Wily Espinal MD [Primary Care Provider, Family Practice] Disposition Disposition (needs filled in before D/C Order can be placed): Home Health Service
--- NOTE | 2024-12-22 08:40 | NURSING ---
Tap Grinder Note; MDS for 12/20/2024 Complete
--- NOTE | 2024-12-22 10:30 | CASEMGMT ---
Social Work SW received call from providing [facility] as preference. SW phoned referral to [facility] PT/OT/SN SW sent referral to [facility] via [facility] and [facility] to contact for DME delivery. Madeline Ramos MSW SEWER CLEANER
[2024-12-22 10:45] VITALS: BP 98/66; PULSE 95; RESP 18; TEMP 36.3; O2SAT 98
[2024-12-22 12:12] VITALS: BP 98/66; PULSE 95; RESP 18; TEMP 36.3; O2SAT 98; BMI 23.3
[2024-12-22] MEDS: Aspirin E.C. 325 MG Tablet PO (18:00)
[2024-12-22] MEDS: Magnesium Chloride 64 MG Delay Rel.Tablet 128 MG PO (18:00)
[2024-12-22] MEDS: Potassium Chloride Oral Tablet 20 MEQ PO (18:01)
[2024-12-22 23:40] VITALS: PULSE 100; RESP 16; O2SAT 97
[2024-12-22 23:57] VITALS: BP 111/58; PULSE 102
[2024-12-22] MEDS: Fluticasone 0.05% 1 SPRAY NASAL.SRY 2 SPRAY NASAL (23:57)
[2024-12-22] MEDS: Fluticasone/Salmeterol 232-14 Inhaler 1 PUFF INHALATION (23:57)
[2024-12-22] MEDS: 0.9% Saline Lock 10 ML Syringe IV (23:58)
[2024-12-23 00:05] VITALS: BP 111/58; PULSE 102
[2024-12-23 03:30] VITALS: PULSE 90; RESP 16; O2SAT 98
[2024-12-23 09:00] VITALS: BP 95/62; PULSE 99; RESP 18; TEMP 36.8; O2SAT 96
[2024-12-23] MEDS: Potassium Chloride Oral Tablet 20 MEQ PO (11:07)
[2024-12-23] MEDS: Magnesium Chloride 64 MG Delay Rel.Tablet 128 MG PO (11:07)
[2024-12-23] MEDS: Fluticasone 0.05% 1 SPRAY NASAL.SRY 2 SPRAY NASAL (11:11)
[2024-12-23] MEDS: Fluticasone/Salmeterol 232-14 Inhaler 1 PUFF INHALATION ×2 (11:11→20:37)
[2024-12-23 11:12] VITALS: BP 95/62; PULSE 99
[2024-12-23] MEDS: Aspirin E.C. 325 MG Tablet PO (12:51)
[2024-12-23] MEDS: 0.9% Saline Lock 10 ML Syringe IV (15:48)
[2024-12-23 20:38] VITALS: BP 104/46; PULSE 103
[2024-12-23 20:46] VITALS: BP 104/46; PULSE 103
[2024-12-24 05:07] VITALS: PULSE 88; RESP 16; O2SAT 98
[2024-12-24 08:02] VITALS: BP 100/59; PULSE 104; RESP 18; TEMP 36.7; O2SAT 96
[2024-12-24] MEDS: Aspirin E.C. 325 MG Tablet PO (09:03)
[2024-12-24] MEDS: Fluticasone 0.05% 1 SPRAY NASAL.SRY 2 SPRAY NASAL (09:03)
[2024-12-24] MEDS: Potassium Chloride Oral Tablet 20 MEQ PO (09:03)
[2024-12-24] MEDS: Fluticasone/Salmeterol 232-14 Inhaler 1 PUFF INHALATION (09:03)
[2024-12-24 09:04] VITALS: BP 100/59; PULSE 104
[2024-12-24] MEDS: Magnesium Chloride 64 MG Delay Rel.Tablet 128 MG PO (09:04)
--- NOTE | 2024-12-24 09:07 | WOUNDNOTE ---
wound photo: abdomen
--- NOTE | 2024-12-25 15:16 | MDS.RN ---
Information for the MDS was obtained from review of the clinical record, interview of resident, staff, and direct observation of resident?s care.
== END 2024-12-24 14:15 | disposition home health service (06) | DRG 920 ==
PROVIDERS: Admitting Provider Family Medicine Geriatric Medicine; PCP Family Medicine; Visit Provider Family Medicine Geriatric Medicine
DX: K91.870 Postprocedural hematoma of a digestive system organ or structure following a digestive system procedure (principal); J96.11 Chronic respiratory failure with hypoxia; D62 Acute posthemorrhagic anemia; L02.211 Cutaneous abscess of abdominal wall; J44.89 Other specified chronic obstructive pulmonary disease; I10 Essential (primary) hypertension; E03.9 Hypothyroidism, unspecified; I48.0 Paroxysmal atrial fibrillation; J30.9 Allergic rhinitis, unspecified; K22.70 Barrett's esophagus without dysplasia; K44.9 Diaphragmatic hernia without obstruction or gangrene; E78.5 Hyperlipidemia, unspecified; I25.10 Atherosclerotic heart disease of native coronary artery without angina pectoris; E83.42 Hypomagnesemia; J45.20 Mild intermittent asthma, uncomplicated; Z79.899 Other long term (current) drug therapy; Z87.891 Personal history of nicotine dependence; Z79.51 Long term (current) use of inhaled steroids; Z79.82 Long term (current) use of aspirin; Z79.890 Hormone replacement therapy; N40.1 Benign prostatic hyperplasia with lower urinary tract symptoms; Z79.02 Long term (current) use of antithrombotics/antiplatelets; R35.1 Nocturia; Y83.8 Other surgical procedures as the cause of abnormal reaction of the patient, or of later complication, without mention of misadventure at the time of the procedure
CPT/HCPCS: 36415; 80048; 82274; 85014; 85018; 85025; 92610; 97110; 97116; 97162; 97166; 97530; 97535; 97802; A4216

== ENCOUNTER 2024-12-22 15:51 | Day surgery (SDC) | payer MEDICARE, OTHER, SELFPAY ==
[2024-12-22] VITALS (8 sets, daily range): BP systolic 107–122; BP diastolic 67–84; PULSE 100–103; RESP 16–18; TEMP 36.3–36.9; O2SAT 98–100; BMI 22.6
--- NOTE | 2024-12-22 13:45 | EGD_PTH ---
PATIENT: JAYDEN TUCKER LOC: [facility] U#:[id number] AGE/SX: 83/M ROOM: RE12/22/[address]: Dr. Celestine Anderson DO : 1940 BED: DIS: 12/22/2024 SPEC #: [id number] RECD: 12/23/24 07:20 STATUS: KODI HALLIE #: [id number] NYA: 12/22/24 13:[address]: Celestine Anderson DEPT: SURGICAL PATHOLOGY RECD BY: Mukund Moore ENTERED: 12/23/24 10:18 SP TYPE: EGD BIOPSY PREMA DR: Dr. Wily Espinal MD Tissues: A - Gastric mucous membrane B - Gastric mucous membrane Procedures: Immunohistochemical Stains Surgery Specimen Level IV HEADER OPERATION: EGD with biopsy PRE-OP DIAGNOSIS: Peptic ulcer, acute blood loss anemia TISSUE SUBMITTED: A- Gastric body biopsy, B- Gastric antrum biopsy MICROSCOPIC DIAGNOSIS A. Gastric body, biopsy: - Chronic gastritis. - IHC negative for H. pylori organisms. B. Gastric antrum, biopsy: - Chronic gastritis. - IHC negative for H. pylori organisms. MICROSCOPIC DESCRIPTION Slides are reviewed. All matched controls reacted appropriately. These tests were developed and their performance characteristics determined by [facility]. They may not have been cleared or approved by the U.S. Food and Drug Administration. The FDA has determined that such clearance or approval is not necessary. The above immunohistochemical markers are viewed by the Pathologist. GROSS DESCRIPTION A. Received in fixative is one container labeled with the patient's name and designated Gastric body biopsy. The specimen consists of three irregular fragments of sal tissue that measure 0.3 to 0.5 cm. The specimen is totally submitted in one cassette. B. Received in fixative is one container labeled with the patient's name and designated Gastric antrum biopsy. The specimen consists of two irregular fragments of sal tissue, each measuring 0.5 cm. The specimen is totally submitted in one cassette. MI 12/23/2024 CPT:00716v8,[id number]
[2024-12-22] MEDS: Lactated Ringers 1,000 ML 15 ML IV (16:02)
--- NOTE | 2024-12-22 16:03 | PRE.ANES_ITS ---
ASA Classification* ASA Classification ASA Classification: 3 (CAD s/p CABG, s/p drug-eluting stent to the proximal RCA. COPD, hx Afib, debility. Recently had acute respiratory failure with hypoxia 2/2 COPD) Assessment & Plan Anesthesia* Anesthesia Assessment Anesthesia Assessment: Discussed sedation and/or anesthesia options, risks, benefits, and alternatives with patient/parents/legal guardian/POA. Questions invited. The patient/parents/legal guardian/POA seems to understand and agrees to proceed with anesthesia plan. Reviewed the physical assessment, medical history, allergy history and patient home medications list prior to surgery/procedure/anesthetic and documented any changes. Performed airway and anesthesia risk assessments. Anesthesia Type Anesthesia Type: MAC History Source History Obtained from:: Patient and Chart Anesthesia Focused Assessment* Temperature: 97.4 F Pulse Rate: 102 Blood Pressure: 122/76 Respiratory Rate: 18 Pulse Ox: 98 Oxygen Delivery Method: Room Air Airway Assessment Mouth opens: >3 cm Mallampati Score: II Neck Range of motion (ROM): Full ROM Labs Anesthesia Preop lab: CBC WBC, (4.4-11.0) 9.4 K/mm3 12/19/24, 05:20 RBC, (4.6-6.2) 3.53 M/mm3 L 12/19/24, 05:20 Hgb, (13.0-16.5) 9.3 g/dL L 12/20/24, 06:19 Hct, (40-54) 29.4 % L 12/20/24, 06:19 Plt Count, (150-450) 254 K/mm3 12/19/24, 05:20 CHEMISTRY Potassium, (3.3-5.1) 3.7 mmol/L Today, 05:11 Sodium, (133-145) 139 mmol/L Today, 05:11 Magnesium, (1.6-2.6) 2.1 mg/dL 09/19/21, 04:47 BUN, (4-19) 16 mg/dL Today, 05:11 Creatinine, (0.70-1.20) 0.67 mg/dL L Today, 05:11 Glucose, (70-99) 104 mg/dL H Today, 05:11 TSH, (0.300-4.200) 1.080 uIU/mL 06/25/24, 11:07 COAG PT, (11.7-14.9) 14.9 SECONDS 07/31/24, 11:14 Pre-Assessment Diagnosis/Proposed Procedure Planned Operative Procedure(s): EGD Anesthesia History 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 When Was Last Pacemaker Check QUESTION #4 FULL TEXT: You/Your Family Experience fever (hyperthermia) with Anesthesia Last Oral Intake Last Oral intake: Last Oral Intake NPO since 21:00 12/22/24 15:52 Meds taken in AM with sips of No 12/22/24 15:52 water? Meds patient instructed to take am of surgery PONV PONV - maths tutor: PONV - maths tutor Female HX of Motion Sickness HX of N/V After Surgery Non-Smoker Duration of Surgery greater than 60 minutes Number of Risk Factors PONV Score Height & Weight Height & Weight: Anesthesia: Height & Weight Height 5 ft 9 in 12/22/24 15:52 Weight: 69.539 kg 12/22/24 15:52 Body Mass Index (BMI) 22.6 12/22/24 15:52 Respiratory Assessment Respiratory Assessment - maths tutor: Respiratory Tract Infection Hx - maths tutor Hx Respiratory Tract Infection No 12/15/18 04:04 STOP Sleep Apnea STOP Sleep Apnea - maths tutor: STOP Sleep Apnea - maths tutor Hx Hypertension Yes 12/14/24 08:25 Hx Sleep Apnea No 12/13/24 18:03 CPAP No 07/03/24 11:39 BIPAP No 07/03/24 11:39 Do you snore loudly (louder than talking or can be heard Do you often feel tired/ fatigued/ sleepy during daytime? Has anyone observed you stop breathing during sleep? STOP Results QUESTION #5 FULL TEXT : Do you snore loudly (louder than talking or can be heard through closed doors)? 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 Specify any problems Hx of Preganancy in last 3 Months Nurse Filling Out Transfusion & Questions: Date: Time: Patient unable to answer at this time (ie. confused, unrespo /Reproduction History /Reproductive History - maths tutor: /Reproductive Hx- maths tutor Hx Now Gestational Age (in weeks): EDC: Hx Hx Para Hx Section SAB Does the father of the baby or his family experience fever w Father of the baby Malignant Hypertension history comment Active Medications Active Medications: Current Medications Generic Name Dose Route Start Last Admin Trade Name Freq PRN Reason Stop Dose Admin Lactated Ringer's 1,000 mls @ 15 mls/hr 12/22/24 16:15 12/22/24 16:02 IV 15 mls/hr .Q48H TARIK Administration PFSH Medical History History of left heart catheterization Paroxysmal atrial fibrillation Mild intermittent asthma without complication Shortness of breath Peptic ulcer, site unspecified, unspecified as acute or chronic, without hemorrhage or perforation Hyperlipidemia Chronic fatigue, unspecified Essential hypertension Constipation CAD (coronary artery disease) BPH associated with nocturia Delcid's esophagus without dysplasia Acquired hypothyroidism Abdominal wall hernia Atherosclerosis of coronary artery of [place] heart without angina pectoris Hiatal hernia Hypothyroidism Delcid's esophagus GERD (gastroesophageal reflux disease) DDD (degenerative disc disease), lumbar Home Medications ?Medication ?Instructions ?Recorded ?Last Taken ?Type acetaminophen 325 mg tablet 650 mg PO Q4H PRN Pain Or Fever 12/09/18 12/21/24 History magnesium oxide 400 mg PO DAILY supplement 1 12/21/24 History multivitamin 1 tab PO QAM vitamin 9 12/21/24 History simvastatin 80 mg tablet 80 mg PO QHS cholesterol 12/21/24 History fluticasone propionate 50 2 spray intranasal BID stuff iness 09/17/21 12/21/24 History mcg/actuation nasal spray,suspension levothyroxine 175 mcg tablet 175 mcg PO DAILY disorder of 06/30/23 12/22/24 History thyroid gland tamsulosin 0.4 mg capsule 0.4 mg PO QHS prostate 06/2912/22/24 History albuterol sulfate 90 mcg/actuation 2 puff inhalation Q 4H PRN 04/15/24 Unknown History aerosol inhaler shortness of breath or wheez ing clopidogrel 75 mg tablet 75 mg PO DAILY blood thinner #30 07/03/24 12/21/24 Rx tabs fluticasone furoate 200 1 inh inhalation QDAY lungs 11/11/24 12/21/24 History mcg-vilanterol 25 mcg/dose inhalation powder (Breo Ellipta) metoprolol tartrate 50 mg tablet 50 mg PO BID blood pr essure #180 11/11/24 12/22/24 Rx tabs aspirin 325 mg tablet,delayed 325 mg PO DAILY heart he alth 12/13/24 12/21/24 History release ondansetron HCl 4 mg tablet 4 mg PO Q8H PRN PRN nausea /vomiting 12/13/24 Unknown History torsemide 20 mg tablet 20 mg PO DAILY swelling 03/08 Unknown History furosemide 40 mg tablet (Lasix) 40 mg PO DAILY 5 12/22/24 History pantoprazole 40 mg tablet,delayed 40 mg PO BID 30 days #60 tabs 12/22/24 12/22/24 Rx release potassium chloride 20 mEq 20 meq PO DAILYCM 30 days #3 0 tabs 12/22/24 12/21/24 Rx tablet,extended release(part/cryst) Allergy/AdvReac Type Severity Reaction Status Date / Time cefdinir (From Omnicef) Allergy Intermediate Diarrhea Verified 11/30/24 10:33 atorvastatin AdvReac Intermediate myalgias Verified 11/30/24 10:33 azithromycin (From Zithromax) AdvReac Nausea/Vom/ Verified 11/30/24 10:33 Diarrhea Family History Mother Emphysema of lung Father Emphysema of lung Surgical History History of ventral hernia repair Hx laparoscopic cholecystectomy History of repair of hiatal hernia History of umbilical hernia repair 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) History of back surgery (~04/25/17) Social History household members: spouse Smoking Status: Former smoker quit date: 02/12/81 pack-years: 13 Tobacco: How many years used: 27 Electronic Cigarette Use: not used how long ago did patient quit smokin years ago alcohol intake: former substance use type: does not use Review of Systems (Anesthesia) ROS Narrative System reviewed and no additional complaints, except as documented. Physical Exam Const alert, oriented x3 and average body habitus Resp normal respiratory effort, normal air movement and clear to auscultation bilaterally Cardio regular rate, regular rhythm and no murmurs
--- NOTE | 2024-12-22 16:25 | HP.PCM_ITS ---
HPI - General General Date of Admission: 12/22/24 Date of Service: 12/22/24 Chief Complaint: Anemia HPI Narrative 83-year-old male, Nils Craig, who presented to the transitional care unit post-incisional hernia repair. He was transferred to the ICU due to a COPD exacerbation and acute respiratory failure with hypoxia. The patient has a history of atrial fibrillation. The patient is currently on IV antibiotics and requires wound VAC changes every Sunday, Sunday, and Sunday. He is on room air. The patient had recent diarrhea which was C. Difficile negative. Reason for consult: Fecal occult positive stools in the setting of anemia. * Labs: * WBC: Improved to 22.44 (down from 37). * Hemoglobin: Trending down from 9.7 to 9.2. Previous low was 6.9, after which he received 3 units PRBCs (prior note mentioned 1 unit, consult note mentions 3 units total for the anemia 2/2 hematoma). The Hgb was stable at 8.7 post-transfusion. * Wound culture: 1 colony forming unit coagulase negative staph. * Sputum culture: Normal terence. * Blood cultures: Negative. * C. Difficile check: Negative. * Fecal occult: Positive. * Imaging/Procedures: * Initial CT A/P: Post-surgical hematoma versus developing abscess. * Incision and drainage of abdominal hematoma performed at bedside. * CTA chest/abdomen: To rule out PE and intra-abdominal bleed (results not provided). * Medications: * Currently on IV antibiotics (finished prior to current transfer per consult note, but on IV antibiotics per 12/12 note - clarification needed). * Received Zosyn/Vancomycin IV initially. * Lasix given in ICU for fluid overload. * Hold Plavix, continue Aspirin. No anticoagulation for atrial fibrillation.] ] [facility] Medical History History of left heart catheterization Paroxysmal atrial fibrillation Mild intermittent asthma without complication Shortness of breath Peptic ulcer, site unspecified, unspecified as acute or chronic, without hemorrhage or perforation Hyperlipidemia Chronic fatigue, unspecified Essential hypertension Constipation CAD (coronary artery disease) BPH associated with nocturia Delcid's esophagus without dysplasia Acquired hypothyroidism Abdominal wall hernia Atherosclerosis of coronary artery of [place] heart without angina pectoris Hiatal hernia Hypothyroidism Delcid's esophagus GERD (gastroesophageal reflux disease) DDD (degenerative disc disease), lumbar Home Medications ?Medication ?Instructions ?Recorded ?Last Taken ?Type acetaminophen 325 mg tablet 650 mg PO Q4H PRN Pain Or Fever 12/09/18 12/21/24 History magnesium oxide 400 mg PO DAILY supplement 1 12/21/24 History multivitamin 1 tab PO QAM vitamin 9 12/21/24 History simvastatin 80 mg tablet 80 mg PO QHS cholesterol 12/21/24 History fluticasone propionate 50 2 spray intranasal BID stuff iness 09/17/21 12/21/24 History mcg/actuation nasal spray,suspension levothyroxine 175 mcg tablet 175 mcg PO DAILY disorder of 06/30/23 12/22/24 History thyroid gland tamsulosin 0.4 mg capsule 0.4 mg PO QHS prostate 06/2912/22/24 History albuterol sulfate 90 mcg/actuation 2 puff inhalation Q 4H PRN 04/15/24 Unknown History aerosol inhaler shortness of breath or wheez ing clopidogrel 75 mg tablet 75 mg PO DAILY blood thinner #30 07/03/24 12/21/24 Rx tabs fluticasone furoate 200 1 inh inhalation QDAY lungs 11/11/24 12/21/24 History mcg-vilanterol 25 mcg/dose inhalation powder (Breo Ellipta) metoprolol tartrate 50 mg tablet 50 mg PO BID blood pr essure #180 11/11/24 12/21/24 Rx tabs aspirin 325 mg tablet,delayed 325 mg PO DAILY heart he alth 12/13/24 12/21/24 History release ondansetron HCl 4 mg tablet 4 mg PO Q8H PRN PRN nausea /vomiting 12/13/24 Unknown History torsemide 20 mg tablet 20 mg PO DAILY swelling 03/08 Unknown History furosemide 40 mg tablet (Lasix) 40 mg PO DAILY 5 12/21/24 History pantoprazole 40 mg tablet,delayed 40 mg PO BID 30 days #60 tabs 12/22/24 12/21/24 Rx release potassium chloride 20 mEq 20 meq PO DAILYCM 30 days #3 0 tabs 12/22/24 12/21/24 Rx tablet,extended release(part/cryst) Allergy/AdvReac Type Severity Reaction Status Date / Time cefdinir (From Omnicef) Allergy Intermediate Diarrhea Verified 11/30/24 10:33 atorvastatin AdvReac Intermediate myalgias Verified 11/30/24 10:33 azithromycin (From Zithromax) AdvReac Nausea/Vom/ Verified 11/30/24 10:33 Diarrhea Family History Mother Emphysema of lung Father Emphysema of lung Surgical History History of ventral hernia repair Hx laparoscopic cholecystectomy History of repair of hiatal hernia History of umbilical hernia repair 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) History of back surgery (~04/25/17) Social History household members: spouse Smoking Status: Former smoker quit date: 02/12/81 pack-years: 13 Tobacco: How many years used: 27 Electronic Cigarette Use: not used how long ago did patient quit smokin years ago alcohol intake: former substance use type: does not use ROS Constitutional Constitutional: Denies fatigue, fever(s), poor appetite, weight gain or weight loss Gastrointestinal Gastrointestinal: Denies belching, bloating, change in bowel habits, change in stool character, chewing difficulty, coffee ground emesis, constipation, cramping, diarrhea, dyspepsia, dysphagia, early satiety, excessive flatus, fecal incontinence, heartburn, hematemesis, hematochezia, hemorrhoids, loose stools, melena, nausea, odynophagia, rectal bleeding, tenesmus, vomiting or weight changes Vital Signs Vital Signs Vital Signs: 12/22/24 15:52 12/22/24 15:52 12/22/24 16:07 Temperature 97.4 F L 97.4 F L Temperature Source Temporal Pulse Rate 102 H 102 H Respiratory Rate 18 18 Respiratory Pattern Normal Blood Pressure 122/76 H 122/76 H Blood Pressure Mean 91 Blood Pressure Source Monitor Blood Pressure Position Semi-Fowlers Blood Pressure Location Left Arm Pulse Ox 98 98 Oxygen Delivery Method Room Air Room Air Weight Weight: 153 lb 4.916 oz Body Mass Index (BMI) 22.6 Physical Exam Const alert, oriented x3, no apparent distress and healthy appearing General Appearance: cooperative GI normal to inspection, nondistended, normoactive bowel sounds, soft to palpation, non-tender and non-distended Percussion: normal to percussion Rectal Exam: deferred Assessment & Plan Assessment/Plan (1) Peptic ulcer: (2) Acute blood loss anemia: PLAN: Assessment & Plan Assessment/Plan (1) Atrial fibrillation: (2) Acute blood loss anemia: PLAN: Assessment The patient is a complex 83 M with multiple post-surgical complications following an incisional hernia repair. He has an active anemic state with a downward trend in hemoglobin (9.7 -> 9.2), which has previously required multiple blood transfusions due to a hematoma. The current presentation is complicated by new onset fecal occult positive stools, suggesting potential gastrointestinal bleeding.[place] issues: * Anemia secondary to probable GI bleed:?The downward trend in Hgb combined with positive fecal occult stools strongly suggests a GI source of blood loss. * Recent major surgery and hematoma drainage:?Potential for ongoing bleeding from surgical site, though prior Hgb stabilization and current Hgb trend (9.7-9.2) suggests a more chronic or new source. * Medication management:?Patient is on Aspirin and had Plavix held. The use of antiplatelet agents increases the risk of GI bleeding, especially in a post-surgical patient. * Infection/Wound status:?WBC is elevated but improving. Wound has minimal growth on culture. Plan * Diagnostic Workup for GI Bleed: * Order serial Hemoglobin and Hematocrit levels to monitor for ongoing blood loss. * Stat type and screen for potential future blood transfusions. * Consult Gastroenterology (GI) for evaluation and management of positive fecal occult stools and anemia. * EGD on 12/22/2024 and consider colonoscopy to identify source of bleeding. * Medication Review: * Review indication for continued Aspirin in the setting of active bleeding and hold if appropriate, in consultation with primary team/cardiology regarding stroke risk (due to A-fib history, though no anticoagulation currently). * The decision hold aspirin and Plavix and no anticoagulation for A-fib as per primary team.
[2024-12-22] MEDS: Lidocaine 1% (5 ml sdv) 5 ML Vial IV (16:35)
--- NOTE | 2024-12-22 16:48 | PCM.POST.ANE ---
Anesthesia: Postop Eval I Current Vital Signs Temperature: 98 F Pulse Rate: 101 Blood Pressure: 107/67 Respiratory Rate: 16 Pulse Ox: 98 Oxygen Delivery Method: Nasal Cannula Oxygen Flow Rate (L/min): 2 Assessment Airway patent: Yes Spontaneous unlabored respirations: Yes Mental status: Awake and Calm nausea: No Vomiting: No Anesthesia Complication: No Fluid Hydration Crystalloid volume administer (ml): 200 Total IV fluid infused: 200 Progress Note Anesthesia document: Postop Eval 1 completed: Yes
--- NOTE | 2024-12-22 16:49 | OP.PROVAT_ITS ---
12/22/2024 Wily Espinal [id number] [place] [address] Re : Upper GI endoscopy procedure for Nils Craig Dear Dr. Espinal This procedure was performed on Sunday, December 22, 2024. My impressions and recommendations are as follows: Impressions : - Esophageal mucosal changes secondary to established long-segment Delcid's disease. - Large hiatal hernia. - Chronic gastritis with hemorrhage. Biopsied. - No gross lesions in the entire examined duodenum. Recommendations : - Return patient to referring hospital for ongoing care. - Resume previous diet. - Use Protonix (pantoprazole) 40 mg PO BID for 6 months. - Continue present medications. My findings are described in the full procedure note, which is enclosed. If I can be of further assistance, please feel free to contact me at . Sincerely, Celestine Anderson, 12/22/2024 4:48:54 PM This report has been signed electronically.
--- NOTE | 2024-12-22 16:49 | OP.EGD_ITS ---
Patient Name: Nils Craig Procedure Date: 12/22/2024 3:45 PM Date of : 1940 Age: 83 Procedure: Upper GI endoscopy Indications: Iron deficiency anemia Providers: Celestine Anderson DO Medicines: Monitored Anesthesia Care Patient Profile: This is an 83 year old male. Refer to note in patient chart for documentation of history and physical. Patient has symptoms. Complications: No immediate complications. Procedure: Pre-Anesthesia Assessment: - Prior to the procedure, a History and Physical was performed, and patient medications and allergies were reviewed. The patient is competent. The risks and benefits of the procedure and the sedation options and risks were discussed with the patient. All questions were answered and informed consent was obtained. Patient identification and proposed procedure were verified by the physician in the pre-procedure area. Mental Status Examination: alert and oriented. Airway Examination: normal oropharyngeal airway and neck mobility. Respiratory Examination: clear to auscultation. CV Examination: normal. Prophylactic Antibiotics: The patient does not require prophylactic antibiotics. Prior Anticoagulants: The patient has taken no anticoagulant or antiplatelet agents except for NSAID medication. ASA Grade Assessment: II - A patient with mild systemic disease. After reviewing the risks and benefits, the patient was deemed in satisfactory condition to undergo the procedure. The anesthesia plan was to use monitored anesthesia care (MAC). Immediately prior to administration of medications, the patient was re-assessed for adequacy to receive sedatives. The heart rate, respiratory rate, oxygen saturations, blood pressure, adequacy of pulmonary ventilation, and response to care were monitored throughout the procedure. The physical status of the patient was re-assessed after the procedure. After obtaining informed consent, the endoscope was passed under direct vision. Throughout the procedure, the patient's blood pressure, pulse, and oxygen saturations were monitored continuously. The Endoscope was introduced through the mouth, and advanced to the third part of the duodenum. Small bowel enteroscopy was deemed necessary. The upper GI endoscopy was accomplished without difficulty. The patient tolerated the procedure well. Scope In: 4:35:47 PM Scope Out: 4:39:50 PM Total Procedure Duration Time 0 hours 4 minutes 3 seconds Findings: There were esophageal mucosal changes secondary to established long-segment Delcid's disease present in the upper third of the esophagus, in the middle third of the esophagus and in the lower third of the esophagus. The maximum longitudinal extent of these mucosal changes was 10 cm in length. A large hiatal hernia was present. Diffuse severe inflammation with hemorrhage characterized by erosions, erythema, friability and linear erosions was found in the cardia, in the gastric fundus, in the gastric body and on the greater curvature of the stomach. Biopsies were taken with a cold forceps for histology. Biopsies were taken with a cold forceps for Helicobacter pylori testing. Verification of patient identification for the specimen was done. Estimated blood loss was minimal. No gross lesions were noted in the entire examined duodenum. Impression: - Esophageal mucosal changes secondary to established long-segment Delcid's disease. - Large hiatal hernia. - Chronic gastritis with hemorrhage. Biopsied. - No gross lesions in the entire examined duodenum. Recommendation: - Return patient to referring hospital for ongoing care. - Resume previous diet. - Use Protonix (pantoprazole) 40 mg PO BID for 6 months. - Continue present medications. Procedure Code(s): --- Professional --- 57609, Small intestinal endoscopy, enteroscopy beyond second portion of duodenum, not including ileum; with biopsy, single or multiple CPT copyright 2021 [employer]. All rights reserved. The codes documented in this report are preliminary and upon hims coder review may be revised to meet current compliance requirements. Celestine Anderson DO 12/22/2024 4:48:54 PM This report has been signed electronically. Number of Addenda: 0 Note Initiated On: 12/22/2024 3:45 PM
--- NOTE | 2024-12-22 17:15 | POSTOPAN2_ITS ---
Anesthesia Postop Eval I Sum Postop Eval Completion status Anesthesia document: Postop Eval 1 completed: Yes Anesthesia Postop Eval I Summary Anesthesia Postop Eval I Summary: Anesthesia Postop Eval I: Assessment Summary Airway patent Yes 12/22/24 16:50 ZINC FURNACE [email or web address] Spontaneous unlabored Yes 12/22/24 16:50 ZINC FURNACE CHARGER.SHOF respirations Mental status Awake,Calm 12/22/24 16:50 ZINC FURNACE CHARGER.SHOF nausea No 12/22/24 16:50 ZINC FURNACE CHARGER.SHOF Vomiting No 12/22/24 16:50 ZINC FURNACE CHARGER.SHOF Anesthesia Postop Eval I: Fluid Summary Crystalloid volume administer 200 12/22/24 16:50 ZINC FURNACE CHARGER.SHOF (ml) Colloids volume administered ( ml) Blood Product volume administered (ml) Total IV fluid infused 200 12/22/24 16:50 ZINC FURNACE CHARGER.SHOF Anesthesia Postop Eval I: Summary Notes Anesthesia Complication No 12/22/24 16:50 ZINC FURNACE CHARGER.SHOF Anesthesia Complication Comment: Post-operative progress note Anesthesia: Postop Eval II Evaluation Mental status: Awake Pain Level: 0 nausea: No Vomiting: No Complications Anesthesia Complication: No
--- NOTE | 2024-12-22 17:15 | PCM.POSTANE2 ---
Anesthesia Postop Eval I Sum Postop Eval Completion status Anesthesia document: Postop Eval 1 completed: Yes Anesthesia Postop Eval I Summary Anesthesia Postop Eval I Summary: Anesthesia Postop Eval I: Assessment Summary Airway patent Yes 12/22/24 16:50 PHYSICIST [email or web address].SHOF Spontaneous unlabored Yes 12/22/24 16:50 PHYSICIST [employer].SHOF respirations Mental status Awake,Calm 12/22/24 16:50 PHYSICIST [employer].SHOF nausea No 12/22/24 16:50 PHYSICIST [employer].SHOF Vomiting No 12/22/24 16:50 PHYSICIST [email or web address].SHOF Anesthesia Postop Eval I: Fluid Summary Crystalloid volume administer 200 12/22/24 16:50 PHYSICIST [employer].SHOF (ml) Colloids volume administered ( ml) Blood Product volume administered (ml) Total IV fluid infused 200 12/22/24 16:50 PHYSICIST [employer].SHOF Anesthesia Postop Eval I: Summary Notes Anesthesia Complication No 12/22/24 16:50 PHYSICIST [email or web address].SHOF Anesthesia Complication Comment: Post-operative progress note Anesthesia: Postop Eval II Evaluation Mental status: Awake Pain Level: 0 nausea: No Vomiting: No Complications Anesthesia Complication: No
--- OUTSIDE RECORDS SUMMARY | 2024-12-22 19:23 | XMS RPT_ITS | CCD ---
Author Organization [facility] Care Team Providers Care Radiation Oncology Nurse Name Role Phone Eloisa Espinal MD Primary Care Provider Buddy Lynn MD Unavailable Eloisa Espinal MD Unavailable Dr. Eloisa Espinal Primary Care Provider Dr. Susannah Rivera Emergency Provider Dr. Randy Baugh Admit Provider Dr. Randy Baugh Attending Provider Dr. Randy Baugh Other Provider Dr. Heladio Harding Attending Provider Unavailable Dr. Heladio Harding Other Provider Unavailable Dr. Nahid Loaiza Attending Provider Eloisa Espinal MD Primary Care Provider Buddy Lynn MD Unavailable Eloisa Espinal MD Unavailable Eloisa Espinal MD Primary Care Provider Eloisa Espinal MD Unavailable Eloisa Espinal MD Primary Care Provider Buddy Lynn MD Unavailable Eloisa Espinal MD Unavailable JULIÁN BOOTHE Attending Unavailable OMKAR KEATING Referring Unavailable ELOISA ESPINAL Primary Care Unavailable Eloisa Espinal MD Primary Care Provider Melquiades LIMON, Tremayne Kearney Unavailable [phone] ELOISA ESPINAL Primary Care Unavailable BARAJAS, RODOLFO Consulting Unavailable SHAREE NOBLE Admitting Unavailable SUNNY FELICIANO Attending Unavailable Melquiades LIMON, Tremayne Kearney Unavailable [facility] FIELD MECHANIC/SITE LEAD.TRANSFER AND PUMPHOUSE OPERATOR CHIEF, Elsa Unavailable Jesus FIELD MECHANIC/SITE LEAD.TRANSFER AND PUMPHOUSE OPERATOR CHIEF, Mike Unavailable Buddy Lynn MD Unavailable Kylie MALAVE, Dr. Julien Primary Care Provider Kylie MALAVE, Dr. Julien Referring Provider Addy MALAVE, Dr. Ibarra Attending Provider Rod MALAVE, Dr. Acosta Emergency Provider Rod MALAVE, Dr. Acosta Attending Provider Addy MALAVE, Dr. Ibarra Referring Provider Addy MALAVE, Dr. Ibarra Other Provider [facility] FIELD MECHANIC/SITE LEAD.TRANSFER AND PUMPHOUSE OPERATOR CHIEF, Elsa Unavailable Unavail able Addy MALAVE, Dr. Ibarra Admit Provider Emelina Alcala Attending Provider Dr. Eloisa Espinal MD Primary Care Provider Addy MALAVE, Dr. Ibarra Attending Provider Dr. Eloisa Espinal MD Referring Provider Emelina Alcala Attending Provider Emelina Alcala Referring Provider Dr. Eloisa Espinal MD Primary Care Physician Addy MALAVE, Dr. Ibarra Attending Physician Dr. Stacey Daly MD Referring Provider Addy MALAVE, Dr. Ibarra Nurse Practitioner Emelina Alcala Attending Physician DK BYNUM Admitting Unavailable DK BYNUM Attending Unavailable ELOISA ESPINAL Primary Care Unavailable ELDERBROCK, ELOISA D Primary Care Unavailable YASMANI FABIAN SOLIS Admitting Unavailable ANTHONY DEL ANGEL Attending Unavailable KEETHA, NARSIMHA R Consulting Unavailable Kylie MALAVE, Dr. Julien Primary Care Physician Brandon MACHINIST WOOD-C, Emelina Attending Physician Brandon MACHINIST WOOD-C, Emelina Referring Provider Kylie MALAVE, Dr. Julien Referring Provider Addy MALAVE, Dr. Ibarra Attending Physician [phone] Nicole GOMEZ, Dr. Davalos Attending Physician Nicole GOMEZ, Dr. Davalos Emergency Department Physici an Clifton MALAVE, Dr. Haider Dumas Admitting Physician Clifton MALAVE, Dr. Haider Dumsa Attending Physician ELOISA ESPINAL Attending Unavailable ELDERBROCK, ELOISA D Primary Care Unavailable ELDERBROCK, ELOISA D Primary Care Unavailable DK BYNUM Referring Unavailable ELDERBROCK, ELOISA D Primary Care Unavailable ELDERBROCK, ELOISA D Referring Unavailable GOLIAS, HERMAN Attending Unavailable ELDERBROCK, ELOISA D Referring Unavailable ELDERBROCK, ELOISA D Primary Care Unavailable ELDERBROCK, ELOISA D Attending Unavailable ELDERBROCK, ELOISA D Primary Care Unavailable ELDERBROCK, ELOISA D Primary Care Unavailable ELDERBROCK, ELOISA D Referring Unavailable GOLIAS, HERMAN Attending Unavailable ELDERBROCK, ELOISA D Referring Unavailable ELDERBROCK, ELOISA D Primary Care Unavailable GOLIAS, HERMAN Attending Unavailable ELDERBROCK, ELOISA D Referring Unavailable ELDERBROCK, ELOISA D Primary Care Unavailable ELDERBROCK, ELOISA D Referring Unavailable ELDERBROCK, ELOISA D Primary Care Unavailable GOLIAS, HERMAN Attending Unavailable ELDERBROCK, ELOISA D Referring Unavailable ELDERBROCK, ELOISA D Primary Care Unavailable GOLIAS, HERMAN Attending Unavailable ELDERBROCK, ELOISA D Referring Unavailable ELDERBROCK, ELOISA D Primary Care Unavailable GOLIAS, HERMAN Attending Unavailable ELDERBROCK, ELOISA D Referring Unavailable ELDERBROCK, ELOISA D Primary Care Unavailable ELDERBROCK, ELOISA D Attending Unavailable ELDERBROCK, ELOISA D Primary Care Unavailable ELDERBROCK, ELOISA D Primary Care Unavailable DK BYNUM Attending Unavailable SELF Referring Unavailable ELDERBROCK, ELOISA D Referring Unavailable ELDERBROCK, ELOISA D Primary Care Unavailable ELDERBROCK, ELOISA D Primary Care Unavailable ALEX, DK T Referring Unavailable ELDERBROCK, ELOISA D Attending Unavailable ELDERBROCK, ELOISA D Primary Care Unavailable ELDERBROCK, ELOISA D Primary Care Unavailable ELSA MAYO Attending Unavailable ELDERBROCK, ELOISA D Primary Care Unavailable ALEX, DK T Referring Unavailable ELDERBROCK, ELOISA D Primary Care Unavailable YAMILETH RAMIREZ Referring Unavailable ELDERBROCK, ELOISA D Primary Care Unavailable ELDERBROCK, ELOISA D Referring Unavailable MARY KENNEDY Attending Unavailable ALEX, DK T Attending Unavailable ELDERBROCK, ELOISA D Primary Care Unavailable ELSA MAYO Referring Unavailable ELDERBROCK, ELOISA D Referring Unavailable ELDERBROCK, ELOISA D Primary Care Unavailable Emelina Taylor NP Referring Unavailable Juan Kennedy Attending Unavailable Elderbrock, Eloisa Primary Care Unavailable Addy, Stacey Attending Unavailable Addy, Stacey Referring Unavailable Elderbrock, Eloisa Primary Care Unavailable Brandon BANDA, Emelina Attending Unavailable Addy, Stacey Attending Unavailable Addy, Stacey Referring Unavailable Elderbrock, Eloisa Primary Care Unavailable Brandon BANDA, Emelina Attending Unavailable Elderbrock, Eloisa Primary Care Unavailable Addy, Stacey Attending Unavailable Addy, Stacey Referring Unavailable Elderbrock, Eolisa Primary Care Unavailable Aimra Longo Referring Unavailable Amira Longo Attending Unavailable Elderbrock, Eloisa Primary Care Unavailable Addy, Stacey Attending Unavailable Addy, Stacey Admitting Unavailable Addy, Stacey Referring Unavailable Elderbrock, Eloisa Primary Care Unavailable Velasco, Dave Attending Unavailable Elderbrock, Eloisa Primary Care Unavailable Elderbrock, Eloisa Referring Unavailable Elderbrock, Eloisa Primary Care Unavailable Addy, Stacey Attending Unavailable Elderbrock, Eloisa Referring Unavailable Brandon BANDA, Emelina Attending Unavailable Elderbrock, Eloisa Primary Care Unavailable Elderbrock, Eloisa Primary Care Unavailable Amauri, Randy Consulting Unavailable Clifton, Haider Chi Attending Unavailable Clifton, Haider Chi Admitting Unavailable Monica, Celestine Consulting Unavailable Jeanne Alonzo Consulting Unavailable Jen Perdomo Consulting Unavailable Estee Gold Consulting Unavailable Elderbrock, Eloisa Primary Care Unavailable Friend, Celestine Attending Unavailable Nicole, Chanellus Attending Unavailable Elderbrock, Eloisa Primary Care Unavailable Elderbrock, Eloisa Referring Unavailable Elderbrock, Eloisa Primary Care Unavailable Addy, Stacey Attending Unavailable Addy, Stacey Attending Unavailable Elderbrock, Eloisa Primary Care Unavailable Eloisa Espinal Referring Unavailable Addy, Stacey Attending Unavailable Addy, Stacey Consulting Unavailable Addy, Stacey Referring Unavailable Addy, Stacey Attending Unavailable Addy, Stacey Consulting Unavailable Addy, Stacey Referring Unavailable Eloisa Espinal Primary Care Unavailable Addy, Stacey Consulting Unavailable Addy, Stacey Admitting Unavailable Friend, Celestine Attending Unavailable Clifton, Haider Chi Consulting Unavailable Allergies Allergy Classification Reported Allergen(s) Allergy Type Date of Onset Reaction(s) Facility Cephalosporins (antibiotic) (2 sources) cefdinir Drug Allergy 4 Diarrhea [facility] HMG-CoA Reductase Inhibitors (statins) (2 sources) atorvastatin Drug Allergy 6 Intolerance [facility] Work Phone: Macrolides (antibiotic) (2 sources) Azithromycin Drug Allergy 6 [facility] Work Phone: (20 sources) atorvastatin; Translations: [ATORVASTATIN CALCIUM] Drug Allergy 6 Intolerance [facility] Work Phone: (20 sources) Azithromycin; Translations: [AZITHROMYCIN] Drug Allergy 6 Nausea/Vom/Diar charbel [facility] Work Phone: (20 sources) cefdinir; Translations: [CEFDINIR] Drug Allergy 4 Diarrhea [facility] Work Phone: (10 sources) atorvastatin Drug Allergy 2 myalgias [facility] (1 source) atorvastatin Drug Allergy 5 [facility] Repository (1 source) Azithromycin Drug Allergy 5 [facility] (1 source) cefdinir Drug Allergy 5 [facility] Medications Current Medications Medication Drug Class(es) Dates Sig (Normalized) Sig (Original) acetaminophen 325 mg oral tablet (20 sources) Start: 12-09-2018 take 650 mg by mouth every four hours Acetaminophen Active 650 MG PO Q4H December 08, 2018 11:00pm Start: 07-29-2018 take 2 tablets by mo uth every four hours as needed for pain Acetaminophen 325 mg tablet Active 650 mg PO Q4H as needed for Pain Or Fever December 08, 2018 11:00pm Complies with drug therapy Comment on above: Take 2 tablets by mo uth every 4 hours as needed. [id number] 200 actuat albuterol 0.09 mg/actuat metered dose inhaler (20 sources) beta2-Adrenergic Agonist Start: 04-15-2024 Albuterol Sulfate 90 mcg/actuation HFA aerosol inhaler Active 2 NMA INHALATION Q4H as needed for shortness of breath or wheezing April 15, 2024 12:00am Complies with drug therapy Start: 04-15-2024 Albuterol Sulf ate 90 mcg/actuation HFA aerosol inhaler Active 2 NMA INHALATION EVERY 4-6 HOURS as needed for shortness of breath or wheezing April 15, 2024 1:00am Complies with drug therapy Start: 03-19-2024 End: 03-19-2025 take 2 puff(s) by inhalation every four hours as needed albuterol HFA (PROVENTIL HFA, VENTOLIN HFA) 90 mcg/actuation inhaler Inhale 2 puffs as instructed every 4 hours as needed. 1 each 09/15/2024 Active aspirin 325 mg delayed release oral tablet (20 sources) Platelet Aggregation Inhibitor, Nonsteroidal Anti-inflammatory Drug Start: 12-13-2024 take 1 tablet by mouth once daily Aspirin 325 mg tablet,delayed release (DR/EC) Active 325 mg PO DAILY December 12, 2024 11:00pm [facility] Complies with drug therapy Start: 12-07-2021 take 1 tablet by dhruv th once daily aspirin, enteric coated (ASPIRIN, ENTERIC COATED) 325 mg EC tablet Take 1 tablet by mouth once daily. 12/07/2021 Active Start: 10-08-2019 End: 12-29-2021 take 1 tablet by mouth once daily aspirin 325 mg tablet Take 1 tablet by mouth once daily. 10/08/2019 12/29/2021 Discontinued Start: 12-09-2018 End: 12-13-2024 take 1 tablet by mouth once daily Aspirin (Adult Aspirin Regimen) 81 mg tablet,delayed release (DR/EC) Discontinued 81 mg PO DAILY December 08, 2018 11:00pm December 13, 2024 5:12pm Comment on above: Take 1 tablet by dhruv th once daily. Take 81 mg by mouth once daily. cetirizine hydrochloride 10 mg oral tablet (2 sources) Histamine-1 Receptor Antagonist Start: 2 End: 2 take 1 tablet by mouth once daily cetirizine (ZYRTEC) 10 mg tablet Take 1 tablet by mouth once daily for 14 days. 14 tablet 0 06/04/2021 06/18/2021 Active Comment on above: Take 1 tablet by dhruv th once daily for 14 days. clopidogrel 75 mg oral tablet (19 sources) P2Y12 Platelet Inhibitor Start: 5 take 1 tablet by mouth once daily Clopidogrel 75 mg Tablet Active 75 mg PO DAILY 30 July 02, 2024 11:00pm blood thinner Complies with drug therapy Start: 12-09-2018 End: 02-25-2020 take 1 tablet by mouth once daily Clopidogrel 75 mg tablet Discontinued 75 mg PO DAILY December 08, 2018 11:00pm February 25, 2020 9:52am enteric contrast (will be provided with radiology test) (1 source) Start: 06-09-2022 End: 06-09-2022 take 1 dose by mouth once, then take 1 dose by mouth once enteric contrast (will be provided with radiology test) Indications: RLQ abdominal pain , Right upper quadrant abdominal mass , Change in bowel function Take 1 Each by mouth one time only for [address] ABD/PEL WO Routine order Administer, As Directed One Time Only, via Oral, Rectal, both Oral and Rectal, Enteric Tube, Stoma or Indwelling Catheter, Enteric Contrast as designated per enteric contrast guidelines 1 Each 0 06/09/2022 06/09/2022 Active Comment on above: Take 1 Each by mouth one time only for [address] ABD/PEL WO Routine order Administer, As Directed One Time Only, via Oral, Rectal, both Oral and Rectal, Enteric Tube, Stoma or Indwelling Catheter, Enteric Contrast as designated per enteric contrast guidelines fluticasone propionate 0.05 mg/actuat metered dose nasal spray (20 sources) Corticosteroid Start: 02-06-2023 End: 03-27-2024 take 2 spray(s) by mouth once daily fluticasone (FLONASE) 50 mcg/actuation nasal spray Use 2 Sprays in each nostril once daily. Rinse mouth after use. 16 mL 11 03/27/2024 Active Start: 09-17-2021 Fluticasone Pr opionate 50 mcg/actuation spray,suspension Active 2 NMA INTRANASAL TWICE A DAY September 16, 2021 11:00pm stuffiness Complies with drug therapy Start: 01-07-2021 End: 02-08-2022 take 2 spray(s) by mouth once daily fluticasone (FLONASE) 50 mcg/actuation nasal spray Use 2 Sprays in each nostril once daily. Rinse mouth after use. 16 mL 11 02/08/2022 Active Comment on above: USE 2 SPRAYS IN EACH NOSTRIL ONCE DAILY. RINSE MOUTH AFTER USE. 120 actuat fluticasone propionate 0.23 mg/actuat / salmeterol 0.021 mg/actuat metered dose inhaler (20 sources) Corticosteroid, beta2-Adrenergic Agonist Start: take 2 puff(s) by inhalation twice daily fluticasone-salmete rol HFA (ADVAIR HFA) 230-21 mcg/actuation inhaler Inhale 2 puffs as instructed two times a day. 1 each 09/15/2024 Active Start: 08-23-2023 End: 04-08-2024 take 2 puff(s) by mouth twice daily fluticasone-salmeterol HFA (ADVAIR) 115-21 mcg/actuation inhaler Inhale 2 Puffs as instructed two times a day. Rinse mouth after use. 12 g 5 03/07/2024 04/08/2024 Discontinued Start: 09-17-2021 End: 11-11-2024 Fluticasone Propion-Salmeter ol (Advair Hfa) 115-21 mcg/actuation HFA aerosol inhaler Discontinued 2 NMA INHALATION TWICE A DAY September 16, 2021 11:00pm November 11, 2024 1:34pm sob Start: 09-17-2021 End: 11-11-2024 Fluticasone Propion-Salmeter ol (Advair Hfa) 115-21 mcg/actuation HFA aerosol inhaler Discontinued 2 NMA INHALATION TWICE A DAY September 17, 2021 12:00am November 11, 2024 2:34pm sob Start: 09-17-2021 Fluticasone Pr opion-Salmeterol (Advair Hfa) 115-21 mcg/actuation HFA aerosol inhaler Active 2 NMA INHALATION TWICE A DAY September 17, 2021 12:00am sob Start: 09-17-2021 Fluticasone Pr opion-Salmeterol (Advair Hfa) 115-21 mcg/actuation HFA aerosol inhaler Active 2 NMA INHALATION TWICE A DAY September 17, 2021 12:00am Start: 09-17-2021 Fluticasone Pr opion-Salmeterol (Advair Hfa) 115-21 mcg/actuation HFA aerosol inhaler Active 2 INH INHALATION TWICE A DAY September 16, 2021 11:00pm Start: 09-17-2021 Fluticasone Pr opion-Salmeterol (Advair Hfa) 115-21 mcg/actuation HFA aerosol inhaler Active 2 INH INHALATION TWICE A DAY September 17, 2021 12:00am Start: 07-18-2021 End: 08-23-2023 take 2 puff(s) by mouth twice daily fluticasone-salmeterol HFA (ADVAIR) 115-21 mcg/actuation inhaler INHALE 2 PUFFS INSTRUCTED TWICE DAILY. RINSE MOUTH AFTER USE. 12 Each 5 09/25/2022 08/23/2023 Discontinued Start: 07-18-2021 take 2 puff(s) by mo uth twice daily fluticasone-salmeterol HFA (ADVAIR HFA) 115-21 mcg/actuation inhaler Inhale 2 Puffs as instructed twice daily. Rinse mouth after use. 1 Inhaler 11 07/18/2021 Active Comment on above: Inhale 2 Puffs as in structed twice daily. Rinse mouth after use. 30 actuat fluticasone furoate 0.2 mg/actuat / vilanterol 0.025 mg/actuat dry powder inhaler (6 sources) Corticosteroid, beta2-Adrenergic Agonist Start: 11-11-2024 Fluticasone Furoate-Vilanterol (Breo Ellipta) 200-25 mcg/dose blister with device Active 1 NMA INHALATION daily November 10, 2024 11:00pm lungs Complies with drug therapy Start: 11-11-2024 Fluticasone Fu roate-Vilanterol (Breo Ellipta) 200-25 mcg/dose blister with device Active INHALATION daily November 11, 2024 12:00am Complies with drug therapy Start: 09-18-2024 take 1 dose by inhal ation once daily fluticasone-vilanterol (BREO ELLIPTA) 200-25 mcg/dose inhaler Inhale 1 inhalation as instructed once daily. 1 each 5 09/18/2024 Active Start: 02-25-2020 Fluticasone Fu roate-Vilanterol Active INHALATION February 25, 2020 1:00am ibuprofen 200 mg oral tablet (8 sources) Nonsteroidal Anti-inflammatory Drug Start: 01-01-2023 take 1 tablet by mouth every six hours as needed for pain levothyroxine sodium 0.175 mg oral tablet (20 sources) l-Thyroxine Start: 05-10-2023 End: 11-08-2023 take 1 tablet by mouth once daily Levothyroxine 175 mcg tablet Active 175 ug PO DAILY June 29, 2023 11:00pm disorder of thyroid gland Complies with drug therapy Start: 12-09-2018 End: 06-30-2023 take 1 tablet by mouth once daily Levothyroxine 200 mcg tablet Discontinued 200 ug PO DAILY December 08, 2018 11:00pm June 30, 2023 10:53pm Start: 05-09-2017 End: 12-09-2018 take 1 tablet by mouth once daily Levothyroxine 175 MCG tablet Discontinued 175 ug PO DAILY May 08, 2017 11:00pm December 09, 2018 9:18am Comment on above: Take 1 tablet by dhruv once daily. Take on empty stomach. For Thyroid. magnesium oxide 400 mg oral tablet (20 sources) Start: 12-24-2019 End: 02-09-2021 take 1 tablet by mouth once daily magnesium oxide (MAG-OX) 400 mg (241.3 mg magnesium) tablet Take 1 tablet by mouth once daily. 90 tablet 3 02/09/2021 Active Start: 12-09-2018 take 1 capsule by mo [facility] once daily Magnesium Oxide 400 mg magnesium capsule Active 400 mg PO DAILY December 08, 2018 11:00pm supplement Complies with drug therapy Comment on above: Take 1 tablet by dhruv once daily. metoprolol tartrate 50 mg oral tablet (20 sources) beta-Adrenergic Getachew Start: 11-11-2024 End: 11-11-2024 take 1 tablet by mouth twice daily Metoprolol Tartrate 50 mg tablet Active 50 mg PO TWICE A DAY 180 3 November 11, 2024 2:36pm blood pressure Complies with drug therapy Start: 05-14-2020 End: 11-11-2024 take 1 tablet by mouth twice daily Metoprolol Tartrate 25 mg tablet Discontinued 25 mg PO TWICE A DAY June 29, 2023 11:00pm November 11, 2024 2:25pm Start: 12-09-2018 End: 04-15-2024 Metoprolol Succinate 25 mg t ablet extended release 24 hr Discontinued 75 mg PO TWICE A DAY December 09, 2018 9:36am April 15, 2024 10:39am bp Start: 12-09-2018 take 75 mg by mouth twice shlomo y Metoprolol Succinate Active 75 MG PO TWICE A DAY December 09, 2018 9:36am Start: 12-09-2018 End: 12-09-2018 Metoprolol Succinate 25 mg t ablet extended release 24 hr Discontinued 75 mg PO DAILY December 08, 2018 11:00pm December 09, 2018 9:37am Start: 12-09-2018 End: 12-09-2018 take 75 mg by mouth once daily Metoprolol Succinate Di scontinued 75 MG PO DAILY December 08, 2018 11:00pm December 09, 2018 9:37am Comment on above: Take 1 tablet by dhruv th twice daily. Multivitamin preparation (3 sources) Start: 12-09-2018 take 1 tablet by mouth once daily in the morning Multivitamin Active 1 TABLET PO EVERY MORNING December 08, 2018 11:00pm Start: 12-09-2018 take 1 tablet by dhruv th once daily in the morning Multivitamin Active 1 TABLET PO EVERY MORNING December 09, 2018 12:00am Multivitamin tablet (7 sources) Start: 12-09-2018 Multivitamin t ablet Active 1 {tbl} PO EVERY MORNING December 08, 2018 11:00pm vitamin Complies with drug therapy Start: 12-09-2018 Multivitamin t ablet Active 1 {tbl} PO EVERY MORNING December 09, 2018 12:00am Complies with drug therapy Start: 12-09-2018 Multivitamin t ablet Active 1 {tbl} PO EVERY MORNING December 09, 2018 12:00am ondansetron 4 mg oral tablet (10 sources) Serotonin-3 Receptor Antagonist Start: 12-13-2024 take 1 tablet by mouth every eight hours as needed for nausea Ondansetron Hcl 4 mg tablet Active 4 mg PO EVERY 8 HOURS NEEDED as needed for nausea/vomiting December 12, 2024 11:00pm Complies with drug therapy Start: 05-16-2024 take 1 tablet by dhruv th every eight hours as needed for nausea and nausea ondansetron (ZOFRAN) 4 mg tablet Indications: Nausea Take 1 tablet by mouth every 8 hours as needed for nausea/vomiting. 10 tablet 2 05/16/2024 Active pantoprazole 40 mg delayed release oral tablet (20 sources) Proton Pump Inhibitor Start: 12-09-2018 End: 05-16-2024 take 1 tablet by mouth twice daily Pantoprazole 40 mg tablet,delayed release (DR/EC) Active 40 mg PO TWICE A DAY December 09, 2018 9:19am prevent ulcers Complies with drug therapy Start: 05-09-2017 End: 12-09-2018 take 1 tablet by mouth once daily Pantoprazole 40 MG tablet Discontinued 40 mg PO DAILY May 08, 2017 11:00pm December 09, 2018 9:21am Comment on above: Take 1 tablet by dhruv th twice daily. Take on empty stomach, 1/2 hr before meal. Take 1 tablet by dhruv th two times a day. Take on empty stomach, 1/2 hr before meal. predniSONE 10 mg oral tablet (14 sources) Start: 12-21-2023 End: 12-30-2023 predniSONE (DELTASONE) 10 mg tablet Take 4 tabs daily for 3 days, then 2 tabs daily for 3 days, then 1 tab daily for 3 days with food. 21 tablet 12/21/2023 12/30/2023 Active Start: 12-07-2023 End: 12-18-2023 take 2 tablets by mouth once daily at mealtime predniSONE (DELTASONE) 20 mg tablet Indications: Abdominal muscle strain, sequela Take 2 tablets by mouth once daily for 5 days. Take daily with food. 10 tablet 12/13/2023 12/18/2023 Active Start: 11-27-2023 End: 12-02-2023 take 2 tablets by mouth once daily at mealtime predniSONE (DELTASONE) 20 mg tablet Indications: Abdominal muscle strain, sequela Take 2 tablets by mouth once daily for 5 days. Take daily with food. 10 tablet 11/27/2023 12/02/2023 Active Start: 12-05-2021 End: 12-29-2021 predniSONE (DELTASONE) 10 mg tablet Indications: Cervical radiculopathy Take 6 pills (all at once) on day 1, 5 pills on day 2, 4 pills on day 3, 3 pills on day 4, 2 pills on day 5, and 1 pill on day 6. 21 tablet 0 12/05/2021 12/12/2021 Discontinued Comment on above: Take 6 pills (all at once) on day 1, 5 pills on day 2, 4 pills on day 3, 3 pills on day 4, 2 pills on day 5, and 1 pill on day 6. simvastatin 80 mg oral tablet (20 sources) HMG-CoA Reductase Inhibitor Start: 9 End: 5 take 1 tablet by mouth at bedtime Simvastatin 80 mg tablet Active 80 mg PO AT BEDTIME December 08, 2018 11:00pm cholesterol Complies with drug therapy Comment on above: Take 1 tablet by dhruv th daily at bedtime. take 1 tablet by dhurv th everyday at bedtime tamsulosin hydrochloride 0.4 mg oral capsule (20 sources) alpha-Adrenergic Getachew Start: 4 End: 5 take 1 capsule by mouth at bedtime Tamsulosin 0.4 mg capsule Active 0.4 mg PO AT BEDTIME June 29, 2023 11:00pm prostate Complies with drug therapy Comment on above: Take 1 capsule by mo [facility] daily at bedtime. terbinafine 250 mg oral tablet (1 source) Allylamine Antifungal Start: 1 Terbinafine Hcl Active EACH PO February 25, 2020 1:00am THERAPEUTIC MULTIVITAMIN TAB (20 sources) Start: 6 take 1 tablet by mouth once daily THERAPEUTIC MULTIVITAMIN TAB Take 1 tablet by mouth once daily. 0 02/23/2005 Suspended Start: 02-23-2005 take 1 tablet by dhruv th once daily THERAPEUTIC MULTIVITAMIN TAB Take 1 tablet by mouth once daily. 0 02/23/2005 Active Start: 02-23-2005 THERAPEUTIC MU LTIVITAMIN TAB one tab daily 0 02/23/2005 Suspended Start: 02-23-2005 THERAPEUTIC MU LTIVITAMIN TAB one tab daily 0 02/23/2005 Active Comment on above: one tab daily Take 1 tablet by dhruv th once daily. torsemide 20 mg oral tablet (1 source) Loop Diuretic Start: 12-13-2024 take 1 tablet by mouth once daily Torsemide 20 mg tablet Active 20 mg PO DAILY December 12, 2024 11:00pm swelling Complies with drug therapy Start: 12-13-2024 take 1 tablet by dhruv th once daily Torsemide 20 mg tablet Active 20 mg PO DAILY December 12, 2024 11:00pm swelling Complies with drug therapy Completed/Discontinued Medications Medication Drug Class(es) Dates Sig (Normalized) Sig (Original) acetaminophen 325 mg / oxyCODONE hydrochloride 5 mg oral tablet (17 sources) Opioid Agonist Start: 04-26-2024 End: 07-31-2024 Oxycodone-Acetamino phen (Percocet) 5-325 mg tablet Discontinued 1 {tbl} PO Q8H as needed for pain 10 4 0 April 26, 2024 July 31, 2024 9:35am Complete tear of left rotator cuff Contusion of forehead Contusion of other part of head, initial encounter Start: 05-09-2017 End: 12-09-2018 Oxycodone-Acetaminophen 1 TA BLET tablet Discontinued 1 - 2 {tbl} PO EVERY 6 HOURS NEEDED as needed for Pain May 08, 2017 11:00pm December 09, 2018 9:20am Start: 05-09-2017 End: 12-09-2018 take 1 tablet by mouth every six hours as needed Oxycodone-Acetaminophen Discontinued 1 - 2 TABLET PO EVERY 6 HOURS NEEDED May 08, 2017 11:00pm December 09, 2018 9:20am amoxicillin 875 mg / clavulanate 125 mg oral tablet (9 sources) Penicillin-class Antibacterial Start: 01-01-2023 End: 06-30-2023 Amoxicillin-Pot Clavulanate 875-125 mg tablet Discontinued 1 {tbl} PO TWICE A DAY January 01, 2023 12:00am June 30, 2023 6:31pm Start: 01-01-2023 take 1 tablet by dhruv th twice daily Amoxicillin-Pot Clavulanate Active 1 TABLET PO TWICE A DAY 01 12January 01, 2023 12:00am Start: 06-04-2021 End: 06-09-2021 take 1 tablet by mouth twice daily amoxicillin-clavulanic acid (AUGMENTIN) 875-125 mg per tablet Take 1 tablet by mouth twice daily for 5 days. 10 tablet 0 06/04/2021 06/09/2021 Active Comment on above: Take 1 tablet by dhruv th twice daily for 5 days. baclofen 10 mg oral tablet (10 sources) gamma-Aminobutyr ic Acid-ergic Agonist Start: 8 End: 9 take 1 tablet by mouth at bedtime Baclofen 10 MG tablet Discontinued 10 mg PO AT BEDTIME May 08, 2017 11:00pm December 09, 2018 9:20am Budesonide / formoterol (20 sources) Corticosteroid, beta2-Adrenergic Agonist Start: End: take 2 puff(s) by inhalation twice daily budesonide-formoterol (BREYNA) 80-4.5 mcg/actuation inhaler Inhale 2 Puffs as instructed two times a day. 10.2 g 11 04/08/2024 09/15/2024 Discontinued (Changing Therapy/Dosage Form) Start: 04-08-2024 take 2 puff(s) by in halation twice daily budesonide-formoterol (BREYNA) 80-4.5 mcg/actuation inhaler Inhale 2 Puffs as instructed two times a day. 10.2 g 11 04/08/2024 Active Start: 07-06-2021 End: 12-29-2021 take 2 puff(s) by inhalation twice daily budesonide-formoterol (SYMBICORT) 160-4.5 mcg/actuation inhaler Indications: Mild intermittent asthma without complication Inhale 2 Puffs as instructed twice daily. 3 Inhaler 3 07/06/2021 12/29/2021 Discontinued Start: 07-06-2021 take 2 puff(s) by in halation twice daily budesonide-formoterol (SYMBICORT) 160-4.5 mcg/actuation inhaler Indications: Mild intermittent asthma without complication Inhale 2 Puffs as instructed twice daily. 3 Inhaler 3 07/06/2021 Active Comment on above: Inhale 2 Puffs as in structed twice daily. cefdinir 300 mg oral capsule (3 sources) Cephalosporin Antibacterial Start: 4 End: 4 take 1 capsule by mouth twice daily cefdinir (OMNICEF) 300 mg capsule Take 1 capsule by mouth two times a day for 7 days. 14 capsule 0 07/05/2023 07/12/2023 docusate sodium 50 mg / sennosides, jail 8.6 mg oral tablet (20 sources) Start: 9 End: 5 Sennosides-Docusate Sodium (Senna With Docusate Sodium) 8.6-50 mg tablet Discontinued 1 {tbl} PO AT BEDTIME December 08, 2018 11:00pm April 15, 2024 10:40am End: 07-05-2023 take 1 tablet by mouth once daily senna-docusate (SENNA-S) 8.6-50 mg per tablet Take 1 tablet by mouth once daily. 07/05/2023 Discontinued Comment on above: Take 1 tablet by dhruv th once daily. 30 actuat fluticasone furoate 0.1 mg/actuat / umeclidinium 0.0625 mg/actuat / vilanterol 0.025 mg/actuat dry powder inhaler (11 sources) Anticholinergic, Corticosteroid, beta2-Adrenergic Agonist Start: End: take 1 puff(s) by inhalation once daily fluticasone-umeclidi n-vilanter (TRELEGY ELLIPTA) 100-62.5-25 mcg Inhale 1 Puff as instructed once daily. 3 Each 3 05/14/2020 07/06/2021 Discontinued Comment on above: Inhale 1 Puff as ins tructed once daily. lisinopril 10 mg oral tablet (20 sources) Angiotensin Converting Enzyme Inhibitor Start: End: take 1 tablet by mouth once daily Lisinopril 10 mg tablet Discontinued 10 mg PO DAILY December 08, 2018 11:00pm April 23, 2024 3:24pm bp Comment on above: Take 1 tablet by dhruv th once daily. take 1 tablet by dhruv th every day meloxicam 15 mg oral tablet (12 sources) Nonsteroidal Anti-inflammatory Drug Start: End: take 1 tablet by mouth once daily at mealtime meloxicam (MOBIC) 15 mg tablet Indications: Lateral epicondylitis of left elbow Take 1 tablet by mouth once daily. With food. 15 tablet 1 11/02/2021 12/29/2021 Discontinued Comment on above: Take 1 tablet by dhruv once daily. With food. mupirocin 0.02 mg/mg topical ointment (2 sources) RNA Synthetase Inhibitor Antibacterial Start: mupirocin (BACTROBAN) 2 % ointment Apply a small amount in each nostril using a cotton swab twice the day before surgery and once the morning of surgery. 22 g 0 08/23/2022 Suspended Comment on above: Apply a small amount in each nostril using a cotton swab twice the day before surgery and once the morning of surgery. perflutren lipid microspheres 1.3 mL in NaCl (PF) 0.9% 10 mL injection (DEFINITY) (20 sources) Start: End: perflutren lipid microspheres 1.3 mL in NaCl (PF) 0.9% 10 mL injection (DEFINITY) polyethylene glycol 3350 70303 mg powder for oral solution (10 sources) Osmotic Laxative Start: End: take 17 g by mouth once daily Polyethylene Glycol 3350 17 gram/dose powder Discontinued 17 g PO DAILY December 08, 2018 11:00pm December 09, 2018 9:37am potassium phosphate 155 mg / sodium phosphate, dibasic 852 mg / sodium phosphate, monobasic 130 mg oral tablet (7 sources) Start: End: take 1 tablet by mouth three times daily phosphorus (K PHOS NEUTRAL) 250 mg tablet Take 1 tablet by mouth three times a day. 90 tablet 0 07/05/2023 08/13/2023 Discontinued sodium chloride 1000 mg oral tablet (20 sources) Start: End: take 1 tablet by mouth once daily sodium chloride soluble tablet 1 g Take 1 tablet by mouth once daily. 30 tablet 0 07/05/2023 08/13/2023 Discontinued Start: 07-07-2022 End: 10-06-2023 sodium chloride 0.9 % (flush ) 10 mL (BD POSIFLUSH) traMADol hydrochloride 50 mg oral tablet (5 sources) Opioid Agonist Start: 08-25-2022 take 1 tablet by mouth every six hours as needed traMADol (ULTRAM) 50 mg tablet Indications: Hiatal hernia , Paraesophageal hernia , Pain, postoperative, acute Take 1 tablet by mouth every 6 hours as needed. 21 tablet 0 08/25/2022 Active Comment on above: Take 1 tablet by dhruv every 6 hours as needed. Problems Active Problems Problem Classification Problem Date Documented Da te Episodic/Chronic Abdominal hernia (20 sources) Diaphragmatic hernia; Translations: [Diaphragmatic hernia without obstruction or gangrene] Onset: 06-20-2021 Resolved: 09-15-2024 06-12-2017 Episodic Abdominal pain (20 sources) Right lower quadrant pain; Translations: [Right lower quadrant pain] Onset: 12-14-2024 Episodic Acute posthemorrhagic anemia (20 sources) Acute posthemorrhagic anemia; Translations: [Acute posthemorrhagic anemia] Onset: 12-20-2018 07-01-2023 Episodic Asthma (20 sources) Asthma; Translations: [Unspecified asthma, uncomplicated] Onset: 07-16-2014 07-16-2014 Chronic Biliary tract disease (20 sources) Acute cholecystitis; Translations: [Acute cholecystitis] Onset: 12-15-2018 Resolved: 12-24-2018 12-15-2018 Episodic Cardiac dysrhythmias (20 sources) Paroxysmal atrial fibrillation; Translations: [Paroxysmal atrial fibrillation] Onset: 12-20-2018 12-24-2018 Chronic Chronic obstructive pulmonary disease and bronchiectasis (20 sources) Acute exacerbation of chronic obstructive airways disease; Translations: [Chronic obstructive pulmonary disease with (acute) exacerbation] Onset: 06-09-2022 Resolved: 09-15-2024 Chronic Chronic obstructive pulmonary disease and bronchiectasis (1 source) Chronic obstructive pulmonary disease and bronchiectasis; Translations: [Asthma with chronic obstructive pulmonary disease (COPD) (HCC)] Onset: 11-07-2024 Complication of device; implant or graft (20 sources) Disorder of coronary artery; Translations: [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] Onset: 07-24-2018 12-24-2018 Chronic Complications of surgical procedures or medical care (20 sources) Expected difficult tracheal intubation; Translations: [Failed or difficult intubation, initial encounter] Onset: 07-24-2018 Resolved: 07-29-2018 07-29-2018 Episodic Coronary atherosclerosis and other heart disease (20 sources) Coronary atherosclerosis; Translations: [Atherosclerotic heart disease of [place] coronary artery without angina pectoris] Onset: 06-26-2018 10-08-2019 Chronic Deficiency and other anemia (4 sources) Anemia; Translations: [Anemia, unspecified] 07-12-2023 Episodic Deficiency and other anemia (1 source) Anemia, unspecified; Translations: [Anemia, unspecified type] Onset: 11-20-2024 Episodic Diabetes mellitus without complication (7 sources) Non-diabetic hyperglycemia; Translations: [Hyperglycemia, unspecified] 11-02-2023 Episodic Diseases of white blood cells (9 sources) Elevated white blood cell count, unspecified; Translations: [Leukocytosis] Onset: 07-01-2023 07-09-2023 Chronic Disorders of lipid metabolism (20 sources) Mixed hyperlipidemia; Translations: [Mixed hyperlipidemia] Onset: 01-15-2019 01-15-2019 Chronic E Codes: Fall (2 sources) Fall; Translations: [Unspecified fall, sequela] 11-27-2023 Episodic E Codes: Natural/environment (16 sources) Cat bite - wound; Translations: [Bitten by cat, initial encounter] 01-01-2023 Episodic Esophageal disorders (20 sources) Escobedo's esophagus; Translations: [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] Onset: 05-30-2007 Chronic Esophageal disorders (1 source) Esophageal disorders; Translations: [Gastroesophageal reflux disease with esophagitis, unspecified whether hemorrhage] Onset: 12-24-2018 Essential hypertension (20 sources) Essential hypertension; Translations: [Essential (primary) hypertension] Onset: 01-15-2019 01-15-2019 Chronic Fever of unknown origin (8 sources) Fever, unspecified; Translations: [Fever] Onset: 07-01-2023 07-09-2023 Episodic Fluid and electrolyte disorders (20 sources) Hypovolemia; Translations: [Hypovolemia] Onset: 07-24-2018 Resolved: 07-25-2018 07-25-2018 Episodic Gastroduodenal ulcer (except hemorrhage) (20 sources) Peptic ulcer; Translations: [Peptic ulcer, site unspecified, unspecified as acute or chronic, without hemorrhage or perforation] Onset: 12-22-2024 Resolved: 05-30-2007 05-30-2007 Chronic Genitourinary symptoms and ill-defined conditions (6 sources) Increased frequency of urination; Translations: [Frequency of micturition] 04-23-2023 Episodic Hyperplasia of prostate (5 sources) Nocturia due to benign prostatic hypertrophy; Translations: [Benign prostatic hyperplasia with lower urinary tract symptoms] Onset: 12-22-2024 05-29-2023 Chronic Immunizations and screening for infectious disease (20 sources) Vaccination needed; Translations: [Encounter for immunization] Onset: 08-28-2022 Episodic Malaise and fatigue (7 sources) Fatigue; Translations: [Chronic fatigue, unspecified] 04-15-2024 Chronic Malaise and fatigue (5 sources) Fatigue; Translations: [Other fatigue] Onset: 12-22-2024 Episodic Nausea and vomiting (1 source) Nausea; Translations: [Nausea] 05-16-2024 Episodic Neoplasms of unspecified nature or uncertain behavior (1 source) Neoplasm of uncertain behavior of right kidney; 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] 10-11-2023 Episodic Nonspecific chest pain (12 sources) Chest pain; Translations: [Chest pain, unspecified] Episodic Open wounds of extremities (7 sources) Laceration of left hand; Translations: [Laceration without foreign body of left hand, initial encounter] 04-26-2024 Episodic Other aftercare (2 sources) Post-discharge follow-up; Translations: [Encounter for follow-up examination after completed treatment for conditions other than malignant neoplasm] 07-12-2023 Episodic Other aftercare (1 source) Removal of sutures done; Translations: [Encounter for removal of sutures] 05-05-2024 Episodic Other circulatory disease (10 sources) H/O: heart disorder; Translations: [Personal history of other diseases of the circulatory system] 09-17-2021 Episodic Other circulatory disease (4 sources) Personal history of other diseases of the circulatory system; Translations: [Personal history of other diseases of circulatory system] Onset: 05-29-2024 Episodic Other circulatory disease (2 sources) Retroperitoneal hematoma; Translations: [Retroperitoneal hematoma] 07-02-2023 Episodic Other circulatory disease (16 sources) H/O: atrial fibrillation; Translations: [Personal history of other diseases of the circulatory system] 04-23-2024 Episodic Other connective tissue disease (1 source) Lateral epicondylitis of left humerus; Translations: [Lateral epicondylitis, left elbow] Episodic Other connective tissue disease (2 sources) Diastasis recti; Translations: [Separation of muscle (nontraumatic), other site] 11-15-2023 Episodic Other connective tissue disease (7 sources) Full thickness rotator cuff tear; Translations: [Complete rotator cuff tear or rupture of left shoulder, not specified as traumatic] 04-26-2024 Episodic Other diseases of kidney and ureters (7 sources) Cyst of kidney; Translations: [Cyst of kidney, acquired] 07-09-2023 Episodic Other ear and sense organ disorders (1 source) Impacted cerumen in right ear; Translations: [Impacted cerumen, right ear] Episodic Other gastrointestinal disorders (2 sources) Right upper quadrant abdominal mass; Translations: [Right upper quadrant abdominal swelling, mass and lump] Episodic Other gastrointestinal disorders (2 sources) Altered bowel function; Translations: [Other specified symptoms and signs involving the digestive system and abdomen] Episodic Other gastrointestinal disorders (1 source) Swollen abdomen; Translations: [Intra-abdominal and pelvic swelling, mass and lump, unspecified site] 01-22-2023 Episodic Other gastrointestinal disorders (8 sources) Acute constipation; Translations: [Constipation, unspecified] 03-19-2024 Episodic Other injuries and conditions due to external causes (1 source) Contusion; Translations: [Other injury of unspecified body region, initial encounter] 08-13-2023 Episodic Other injuries and conditions due to external causes (1 source) Injury of left shoulder; Translations: [Unspecified injury of left shoulder and upper arm, subsequent encounter] 05-05-2024 Episodic Other lower respiratory disease (1 source) Cough; Translations: [Cough] 11-08-2020 Episodic Other lower respiratory disease (11 sources) Dyspnea; Translations: [Shortness of breath] 03-19-2024 Episodic Other lower respiratory disease (2 sources) Dyspnea on exertion; Translations: [Other forms of dyspnea] 09-12-2024 Episodic Other lower respiratory disease (1 source) Elevated diaphragm; Translations: [Disorders of diaphragm] 09-15-2024 Episodic Other non-traumatic joint disorders (2 sources) Pain in elbow; Translations: [Pain in left elbow] Episodic Other nutritional; endocrine; and metabolic disorders (2 sources) Hypophosphatemia; Translations: [Other disorders of phosphorus metabolism] 07-12-2023 Chronic Other upper respiratory disease (2 sources) Allergic rhinitis; Translations: [Allergic rhinitis, unspecified] 12-13-2024 Chronic Other upper respiratory disease (1 source) Allergic rhinitis, unspecified; Translations: [Allergic rhinitis, unspecified] Onset: 12-22-2024 Chronic Other upper respiratory infections (1 source) Acute sinusitis; Translations: [Acute sinusitis, unspecified] Episodic Peritonitis and intestinal abscess (2 sources) Abdominal abscess 12-13-2024 Episodic Pneumonia (except that caused by tuberculosis or sexually transmitted disease) (1 source) Pneumonia, unspecified organism; Translations: [Pneumonia] Onset: 11-30-2024 Episodic Residual codes; unclassified (8 sources) History of hernia repair; Translations: [Other specified postprocedural states] 04-11-2023 Episodic Residual codes; unclassified (7 sources) History of repair of umbilical hernia; Translations: [Other specified postprocedural states] 04-15-2024 Episodic Residual codes; unclassified (1 source) Other specified health status; Translations: [Difficult intravenous access] Onset: 11-07-2024 Episodic Respiratory failure; insufficiency; arrest (adult) (3 sources) Acute respiratory failure; Translations: [Acute respiratory failure with hypoxia] Onset: 12-22-2024 12-13-2024 Episodic Screening and history of mental health and substance abuse codes (4 sources) Ex-smoker; Translations: [Personal history of nicotine dependence] Onset: 09-15-2024 09-15-2024 Episodic Septicemia (except in labor) (3 sources) Sepsis; Translations: [Sepsis, unspecified organism] Onset: 12-22-2024 12-13-2024 Episodic Spondylosis; intervertebral disc disorders; other back problems (20 sources) Degeneration of lumbar intervertebral disc; Translations: [Other intervertebral disc degeneration, lumbar region] Onset: 09-13-2016 09-13-2016 Chronic Sprains and strains (3 sources) Strain of abdominal muscle; Translations: [Strain of muscle, fascia and tendon of abdomen, sequela] 11-27-2023 Episodic Substance-related disorders (7 sources) 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; Translations: [Abuse of laxatives] 11-02-2023 Chronic Superficial injury; contusion (20 sources) Abrasion of forehead; Translations: [Abrasion of other part of head, initial encounter] 04-26-2024 Episodic Syncope (2 sources) Syncope; Translations: [Syncope and collapse] 07-12-2023 Episodic Thyroid disorders (20 sources) Acquired hypothyroidism; Translations: [Hypothyroidism, unspecified] Onset: 08-25-2022 12-24-2018 Chronic Unclassified (1 source) Autogenerated Problem Onset: 10-02-2024 10-02-2024 Unclassified (1 source) Abdominal wall hematoma, initial encounter; Translations: [Abdominal wall hematoma, initial encounter] Onset: 12-05-2024 Unclassified (1 source) Degeneration of intervertebral disc of lumbar region, unspecified whether pain present; Translations: [Degeneration of intervertebral disc of lumbar region, unspecified whether pain present] Onset: 09-13-2016 Unclassified (1 source) Contusion of abdominal wall, initial encounter; Translations: [Contusion of abdominal wall, initial encounter] Onset: 12-22-2024 Past or Other Problems Problem Classification Problem Date Documented Da te Episodic/Chronic Administrative/social admission (20 sources) Discharge status; Translations: [Encounter for administrative examinations, unspecified] Onset: 07-23-2018 08-25-2022 Episodic Coagulation and hemorrhagic disorders (20 sources) Blood coagulation disorder; Translations: [Coagulation defect, unspecified] Onset: 07-24-2018 Resolved: 07-25-2018 07-25-2018 Chronic Coronary atherosclerosis and other heart disease (1 source) Presence of aortocoronary bypass graft; Translations: [Hx of CABG] Onset: 10-08-2019 Episodic Diverticulosis and diverticulitis (20 sources) Diverticulosis of colon; Translations: [Diverticulosis of large intestine without perforation or abscess without bleeding] Resolved: 10-20-2010 10-20-2010 Chronic Esophageal disorders (20 sources) Achalasia of esophagus; Translations: [Achalasia of cardia] Onset: 08-29-2007 Resolved: 10-20-2010 10-10-2022 Episodic Hemorrhoids (20 sources) Hemorrhoids; Translations: [Unspecified hemorrhoids] Resolved: 10-20-2010 10-20-2010 Episodic Intestinal obstruction without hernia (20 sources) Intestinal obstruction co-occurrent and due to decreased peristalsis; Translations: [Ileus, unspecified] Onset: 12-20-2018 Resolved: 12-24-2018 12-24-2018 Episodic Intracranial injury (8 sources) Concussion with less than 1 hour loss of consciousness; Translations: [Concussion with loss of consciousness of 30 minutes or less, initial encounter] Onset: 05-06-2024 04-26-2024 Episodic Other aftercare (20 sources) Long-term current use of anticoagulant; Translations: [USP (current) use of anticoagulants] Onset: 01-15-2019 01-15-2019 Episodic Other circulatory disease (20 sources) Vascular disorder; Translations: [Other disorders of arteries, arterioles and capillaries in diseases classified elsewhere] Onset: 06-09-2022 Resolved: 07-12-2023 Chronic Other circulatory disease (20 sources) Retroperitoneal hemorrhage; Translations: [Hemorrhage, not elsewhere classified] Onset: 07-01-2023 07-01-2023 Episodic Other circulatory disease (2 sources) Hemorrhage, not elsewhere classified; Translations: [Retroperitoneal hemorrhage] Onset: 07-01-2023 Episodic Other connective tissue disease (20 sources) Pain in left arm; Translations: [Pain in left arm] Onset: 12-08-2021 Resolved: 02-01-2022 Episodic Other gastrointestinal disorders (1 source) Constipation, unspecified; Translations: [Acute constipation] Onset: 03-19-2024 Episodic Other lower respiratory disease (1 source) Disorders of diaphragm; Translations: [Elevated diaphragm] Onset: 09-15-2024 Episodic Other lower respiratory disease (3 sources) Shortness of breath; Translations: [SOB (shortness of breath)] Onset: 03-19-2024 Episodic Other nervous system disorders (20 sources) Acute postoperative pain; Translations: [Other acute postprocedural pain] Onset: 07-24-2018 08-25-2022 Episodic Other nutritional; endocrine; and metabolic disorders (20 sources) Obese class I; Translations: [Obesity, unspecified] Onset: 07-26-2018 Resolved: 09-19-2018 09-19-2018 Chronic Other nutritional; endocrine; and metabolic disorders (20 sources) Body mass index 25-29 - overweight; Translations: [Overweight] Onset: 05-24-2016 12-24-2018 Episodic Other screening for suspected conditions (not mental disorders or infectious disease) (2 sources) Patient encounter status; Translations: [Encounter for screening for other disorder] Onset: 07-03-2024 05-29-2023 Episodic Other skin disorders (20 sources) Eruption; Translations: [Rash and other nonspecific skin eruption] Onset: 06-05-2019 06-05-2019 Episodic Pleurisy; pneumothorax; pulmonary collapse (20 sources) Atelectasis; Translations: [Atelectasis] Onset: 07-24-2018 Resolved: 07-26-2018 07-26-2018 Episodic Residual codes; unclassified (20 sources) Transition of care; Translations: [Other specified health status] Onset: 07-26-2018 Resolved: 09-19-2018 09-19-2018 Episodic Spondylosis; intervertebral disc disorders; other back problems (20 sources) Chronic low back pain; Translations: [Lumbago with sciatica, left side] Onset: 12-09-2015 Resolved: 02-01-2022 12-09-2015 Episodic Unclassified (13 sources) Transition of care; Translations: [Transition of care performed with sharing of clinical summary] Onset: 07-26-2018 Resolved: 09-19-2018 09-19-2018 Unclassified (5 sources) Abrasion, left knee, initial encounter 04-26-2024 Unclassified (5 sources) Abrasion of right index finger, initial encounter 04-26-2024 Results Test Name Value Interpretation Reference Range Facility Basic Metabolic Profile (BMP )on 12-22-2024 BUN/CRE 24.0 RATIO High 12-01 [facility] Comment on above: Performed By: #### L 500.2500 #### [facility] [address] [place], [address] Calcium [Mass/Vol] 8.5 mg/dL Normal 7.6-11.0 [facility] Comment on above: Performed By: #### L 500.2500 #### [facility] [address] [facility] [place], [address] Chloride [Moles/Vol] 106 mmol/L Normal 98-108 [facility] Comment on above: Performed By: #### L 500.2500 #### [facility] [address] [place], [address] CO2 [Moles/Vol] 23.3 mmol/L Normal 21.0-32.0 [facility] Comment on above: Performed By: #### L 500.2500 #### [facility] [address] [place], [address] Creatinine [Mass/Vol] 0.67 mg/dL Low 0.70-1.20 [facility] Comment on above: Performed By: #### L 500.2500 #### [facility] [address] [place], [place], [address] ECRCL 70.06 ml/min Normal 50-250 [facility] Comment on above: Performed By: #### L 500.2500 #### [facility] [address] [place], [address] GAP 9 Normal 5-15 [facility] Comment on above: Performed By: #### L 500.2500 #### [facility] [address] [place], [address] GFR/1.73 sq M.predicted among non-blacks MDRD (S/P/Bld) [Vol rate/Area] 94 mL/min/{1.73_m2} Normal >60 [facility] Comment on above: Result Comment: mL/m in/1.73m2 CKD-EPI Creatinine Equation (2020) Performed By: #### L 500.2500 #### [facility] [address] [place], [address] Glucose [Mass/Vol] 104 mg/dL High 70-99 [facility] Comment on above: Performed By: #### L 500.2500 #### [facility] [address] [place], [address] Potassium [Moles/Vol] 3.7 mmol/L Normal 3.3-5.1 [facility] Comment on above: Performed By: #### L 500.2500 #### [facility] [address] [place], [address] Sodium [Moles/Vol] 139 mmol/L Normal 133-145 [facility] Comment on above: Performed By: #### L 500.2500 #### [facility] [address] [place], [address] Urea nitrogen [Mass/Vol] 16 mg/dL Normal 4-19 [facility] Comment on above: Performed By: #### L 500.2500 #### [facility] [address] [place], [address] Basic Metabolic Profile (BMP )on 12-21-2024 BUN/CRE 32.5 RATIO High 10-20 [facility] Comment on above: Performed By: #### L 400.0001 #### [facility] [address] [place], [address] Calcium [Mass/Vol] 8.4 mg/dL Normal 7.6-11.0 [facility] Comment on above: Performed By: #### L 400.0001 #### [facility] [address] [place], [address] Chloride [Moles/Vol] 105 mmol/L Normal 98-108 [facility] Comment on above: Performed By: #### L 400.0001 #### [facility] [address] [place], [address] CO2 [Moles/Vol] 23.9 mmol/L Normal 21.0-32.0 [facility] Comment on above: Performed By: #### L 400.0001 #### [facility] [address] [place], [address] Creatinine [Mass/Vol] 0.64 mg/dL Low 0.70-1.20 [facility] Comment on above: Performed By: #### L 400.0001 #### [facility] [address] [place], [address] ECRCL 70.06 ml/min Normal 50-250 [facility] Comment on above: Performed By: #### L 400.0001 #### [facility] [address] [place], [address] GAP 9 Normal 5-15 [facility] Comment on above: Performed By: #### L 400.0001 #### [facility] [address] [place], [address] GFR/1.73 sq M.predicted among non-blacks MDRD (S/P/Bld) [Vol rate/Area] 95 mL/min/{1.73_m2} Normal >60 [facility] Comment on above: Result Comment: mL/m in/1.73m2 CKD-EPI Creatinine Equation (2020) Performed By: #### L 400.0001 #### [facility] [address] [place], [address] Glucose [Mass/Vol] 105 mg/dL High 70-99 [facility] Comment on above: Performed By: #### L 400.0001 #### [facility] [address] [place], [address] Potassium [Moles/Vol] 3.4 mmol/L Normal 3.3-5.1 [facility] Comment on above: Performed By: #### L 400.0001 #### [facility] [address] [place], [address] Sodium [Moles/Vol] 137 mmol/L Normal 133-145 [facility] Comment on above: Performed By: #### L 400.0001 #### [facility] [address] [place], [address] Urea nitrogen [Mass/Vol] 21 mg/dL High 4-19 [facility] Comment on above: Performed By: #### L 400.0001 #### [facility] [address] [place], [address] Basic Metabolic Profile (BMP )on 12-20-2024 BUN/CRE 35.1 RATIO High 10-20 [facility] Comment on above: Performed By: #### L 500.2500 #### [facility] [address] [place], [address] Calcium [Mass/Vol] 8.5 mg/dL Normal 7.6-11.0 [facility] Comment on above: Performed By: #### L 500.2500 #### [facility] [address] [place], [address] Chloride [Moles/Vol] 104 mmol/L Normal 98-108 [facility] Comment on above: Performed By: #### L 500.2500 #### [facility] [address] [place], [address] CO2 [Moles/Vol] 23.6 mmol/L Normal 21.0-32.0 [facility] Comment on above: Performed By: #### L 500.2500 #### [facility] [address] [place], [address] Creatinine [Mass/Vol] 0.65 mg/dL Low 0.70-1.20 [facility] Comment on above: Performed By: #### L 500.2500 #### [facility] [address] [place], [address] ECRCL 70.06 ml/min Normal 50-250 [facility] Comment on above: Performed By: #### L 500.2500 #### [facility] [address] [place], [address] GAP 10 Normal 5-15 [facility] Comment on above: Performed By: #### L 500.2500 #### [facility] [address] [place], [address] GFR/1.73 sq M.predicted among non-blacks MDRD (S/P/Bld) [Vol rate/Area] 95 mL/min/{1.73_m2} Normal >60 [facility] Comment on above: Result Comment: mL/m in/1.73m2 CKD-EPI Creatinine Equation (2020) Performed By: #### L 500.2500 #### [facility] [address] [place], [address] Glucose [Mass/Vol] 109 mg/dL High 70-99 [facility] Comment on above: Performed By: #### L 500.2500 #### [facility] [address] [place], [address] Potassium [Moles/Vol] 3.6 mmol/L Normal 3.3-5.1 [facility] Comment on above: Performed By: #### L 500.2500 #### [facility] [address] [place], [address] Sodium [Moles/Vol] 137 mmol/L Normal 133-145 [facility] Comment on above: Performed By: #### L 500.2500 #### [facility] [address] [place], [address] Urea nitrogen [Mass/Vol] 23 mg/dL High 4-19 [facility] Comment on above: Performed By: #### L 500.2500 #### [facility] [address] [place], [address] HH, Hemoglobin AND Hematocri ton 12-20-2024 Hematocrit (Bld) [Volume fraction] 29.4 % Low 40-54 [facility] Comment on above: Performed By: #### L 500.2500 #### [facility] [address] [place], [address] Hemoglobin (Bld) [Mass/Vol] 9.3 g/dL Low 13.0-16.5 [facility] Comment on above: Performed By: #### L 500.2500 #### [facility] [address] [place], [address] MR/CON.PCM.GIon 12-20-2024 MR/CON.PCM.GI [facility] Medical Records Department [address] [place] [address] Consultation - GI 12/20/24 1310 MR#: [id number] Acct: [id number] Name: JAYDEN CRAIG Rep #: [id number] : 1940 83 From: Celestine Friend DO PCP: Dr. Eloisa Espinal MD Status:ADM IN Location: [place] [id number] HPI Consult Data Date of Consult: 12/20/24 HPI Narrative HPI Narrative: JADYEN CRAIG, is a 83-year-old male, Jayden Craig, who presented to the transitional care unit post- incisional hernia repair. He was transferred to the ICU due to a COPD exacerbation and acute respiratory failure with hypoxia. The patient has a history of atrial fibrillation. The patient is currently on IV antibiotics and requires wound VAC changes every Sunday, Sunday, and Sunday. He is on room air. The patient had recent diarrhea which was C. Difficile negative. Reason for consult: Fecal occult positive stools in the setting of anemia. * Labs: * WBC: Improved to 22.44 (down from 37). * Hemoglobin: Trending down from 9.7 to 9.2. Previous low was 6.9, after which he received 3 units PRBCs (prior note mentioned 1 unit, consult note mentions 3 units total for the anemia 2/2 hematoma). The Hgb was stable at 8.7 post-transfusion. * Wound culture: 1 colony forming unit coagulase negative staph. * Sputum culture: Normal terence. * Blood cultures: Negative. * C. Difficile check: Negative. * Fecal occult: Positive. * Imaging/Procedures: * Initial CT A/P: Post-surgical hematoma versus developing abscess. * Incision and drainage of abdominal hematoma performed at bedside. * CTA chest/abdomen: To rule out PE and intra-abdominal bleed (results not provided). * Medications: * Currently on IV antibiotics (finished prior to current transfer per consult note, but on IV antibiotics per 10/31 note - clarification needed). * Received Zosyn/Vancomycin IV initially. * Lasix given in ICU for fluid overload. * Hold Plavix, continue Aspirin. No anticoagulation for atrial fibrillation.] [facility] Medical History History of left heart catheterization Paroxysmal atrial fibrillation Mild intermittent asthma without complication Shortness of breath Peptic ulcer, site unspecified, unspecified as acute or chronic, without hemorrhage or perforation Hyperlipidemia Chronic fatigue, unspecified Essential hypertension Constipation CAD (coronary artery disease) 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 Acquired hypothyroidism Abdominal wall hernia Atherosclerosis of coronary artery of ton[place]anda heart without angina pectoris Hiatal hernia Hypothyroidism Escobedo's esophagus GERD (gastroesophageal reflux disease) DDD (degenerative disc disease), lumbar Home Medications ???Medication ???Instructions ???Recorded ???Last Taken ???Type acetaminophen 325 mg tablet 650 mg PO Q4H PRN Pain Or Fever Unknown History magnesium oxide 400 mg PO DAILY supplement 9 07/03/24 History multivitamin 1 tab PO QAM vitamin 12/09/18 Unkn own History pantoprazole 40 mg tablet,delayed 40 mg PO BID prevent ulcers 12/0907/03/24 History release simvastatin 80 mg tablet 80 mg PO QHS cholesterol 12/09/18 Unknown History fluticasone propionate 50 2 spray intranasal BID stuffiness 09/17/21 07/03/24 History mcg/actuation nasal spray,suspension ibuprofen 200 mg tablet 200 mg PO Q6H PRN pain #30 tabs Unknown Rx levothyroxine 175 mcg tablet 175 mcg PO DAILY disorder of 06/2908/06/24 History thyroid gland tamsulosin 0.4 mg capsule 0.4 mg PO QHS prostate 06/30/23 Un known History albuterol sulfate 90 mcg/actuation 2 puff inhalation Q4H PRN Unknown History aerosol inhaler shortness of breath or wheezing clopidogrel 75 mg tablet 75 mg PO DAILY blood thinner #30 0 07/03/24 08/06/24 Rx tabs fluticasone furoate 200 1 inh inhalation QDAY lungs Unknown History mcg-vilanterol 25 mcg/dose inhalation powder (Breo Ellipta) metoprolol tartrate 50 mg tablet 50 mg PO BID blood pressure #180 0 11/11/24 Unknown Rx tabs aspirin 325 mg tablet,delayed 325 mg PO DAILY heart health 12/13 Unknown History release ondansetron HCl 4 mg tablet 4 mg PO Q8H PRN PRN nausea/vomitin g 12/13/24 Unknown History torsemide 20 mg tablet 20 mg PO DAILY swelling 12/13/24 U nknown History Allergy/AdvReac Type Severity Reaction Status Date / Time cefdinir (From Omnicef) Allergy Intermediate Diarrhea Verified 11/30/24 10:33 atorvastatin AdvReac Intermediate myalgias Verified 11/30/24 10:33 azithromycin (From Zithromax) AdvReac Nausea/Vom/ Verified 11/30/24 10:33 Diarrhea Family History Mother Emphysema of lung Father Emphysem (more content not included)... Normal [facility] Basic Metabolic Profile (BMP )on 12-19-2024 BUN/CRE 33.6 RATIO High 12-01 [facility] Comment on above: Performed By: #### L 400.0001 #### [facility] [address] [place], [address] Calcium [Mass/Vol] 8.2 mg/dL Normal 7.6-11.0 [facility] Comment on above: Performed By: #### L 400.0001 #### [facility] [address] [place], [address] Chloride [Moles/Vol] 102 mmol/L Normal 98-108 [facility] Comment on above: Performed By: #### L 400.0001 #### [facility] [address] [place], [address] CO2 [Moles/Vol] 23.8 mmol/L Normal 21.0-32.0 [facility] Comment on above: Performed By: #### L 400.0001 #### [facility] [address] [place], [address] Creatinine [Mass/Vol] 0.66 mg/dL Low 0.70-1.20 [facility] Comment on above: Performed By: #### L 400.0001 #### [facility] [address] [place], [address] ECRCL 70.06 ml/min Normal 50-250 [facility] Comment on above: Performed By: #### L 400.0001 #### [facility] [address] [place], [address] GAP 11 Normal 5-15 [facility] Comment on above: Performed By: #### L 400.0001 #### [facility] [address] [place], [address] GFR/1.73 sq M.predicted among non-blacks MDRD (S/P/Bld) [Vol rate/Area] 94 mL/min/{1.73_m2} Normal >60 [facility] Comment on above: Result Comment: mL/m in/1.73m2 CKD-EPI Creatinine Equation (2020) Performed By: #### L 400.0001 #### [facility] [address] [place], [address] Glucose [Mass/Vol] 87 mg/dL Normal 70-99 [facility] Comment on above: Performed By: #### L 400.0001 #### [facility] [address] [place], [address] Potassium [Moles/Vol] 3.1 mmol/L Low 3.3-5.1 [facility] Comment on above: Performed By: #### L 400.0001 #### [facility] [address] [place], [address] Sodium [Moles/Vol] 136 mmol/L Normal 133-145 [facility] Comment on above: Performed By: #### L 400.0001 #### [facility] [address] [place], [address] Urea nitrogen [Mass/Vol] 22 mg/dL High 4-19 [facility] Comment on above: Performed By: #### L 400.0001 #### [facility] [address] [place], [address] CBC W/Diff, Automatedon 11-0 SMEAR COMMENT SCANNED Normal [facility] Comment on above: Result Comment: SLIG HT MONOCYTOSIS Performed By: #### L 400.0001 #### [facility] [address] [place], [address] Stool Occult Blood iFOBon STOB Positive Normal [facility] Comment on above: Performed By: #### L 500.2500 #### [facility] [address] [place], [address] CNPNon 12-15-2024 CNPN Telephone (GENSWS) JAYDEN CRAIG ([id number]) 1940 M NFR Date Time Provider Department 12/15/24 DK BYNUM GENKetsuS During your visit today, we recorded the following information about you: Marlen Ma MA 12/15/2024 9:29 AM Signed Pt's calling with questions regarding wound care. Pt was given wound vac in [facility] and then he was transferred to [facility] for Rehab. is asking who will be taking over the wound care. Pt unable to be transported. Will check with provider to see how that works with orders etc. Staff doctor? Does [facility] have wound care on site that can see him in TCU. Please review and advise. VAMSI Foley Ann, PA-C 12/15/2024 11:49 AM Signed Facility should have orders to change vac every MWF. He will follow up for wound evaluation with the wound center (outpatient). He has an appt 12/19 with Anya Nazario APRN in wound center. If he is unable to be transported to appt they can continue wound management at facility until he can be seen. Allergies As of Date: 12/15/2024 Noted Allergy Reaction LIPITOR (ATORVASTATIN CALCIUM) 02/01/2006 5 - Intolerance Comments: myalgias OMNICEF (CEFDINIR) 2013 6 - Diarrhea ZITHROMAX (AZITHROMYCIN) 02/23/2005 Date Reviewed: 12/12/2024 Reviewed by: Vick Qureshi RN - Fully Assessed Reason for Visit: Patient Update [1234] Wound care questions [Other] Prescriptions as of 12/19/2024 - metoprolol tartrate, short acting, (LOPRESSOR) 50 mg tablet Take 1 tablet by mouth two times a day. - torsemide (DEMADEX) 20 mg tablet Take 1 tablet by mouth once daily. - levothyroxine (LEVOXYL) 175 mcg tablet Take 1 tablet by mouth once daily. Take on empty stomach. For thyroid. - fluticasone-vilantero l (BREO ELLIPTA) 200-25 mcg/dose inhaler Inhale 1 inhalation as instructed once daily. - clopidogrel (PLAVIX) 75 mg tablet Take 75 mg by mouth once daily. - albuterol HFA (PROVENTIL HFA, VENTOLIN HFA) 90 mcg/actuation inhaler Inhale 2 puffs as instructed every 4 hours as needed. - pantoprazole DR (PROTONIX) 40 mg tablet Take 1 tablet by mouth two times a day. Take on empty stomach, 1/2 hr before meal. - simvastatin (ZOCOR) 80 mg tablet Take 1 tablet by mouth daily at bedtime. - ondansetron (ZOFRAN) 4 mg tablet Take 1 tablet by mouth every 8 hours as needed for nausea/vomiting. - fluticasone (FLONASE) 50 mcg/actuation nasal spray Use 2 Sprays in each nostril once daily. Rinse mouth after use. - albuterol HFA (PROVENTIL HFA, VENTOLIN HFA) 90 mcg/actuation inhaler Inhale 2 Puffs as instructed every 4 hours as needed for wheezing/shortness of breath. - tamsulosin (FLOMAX) 0.4 mg TAKE 1 CAPSULE BY MOUTH EVERYDAY AT BEDTIME - aspirin, enteric coated (ASPIRIN, ENTERIC COATED) 325 mg EC tablet Take 1 tablet by mouth once daily. - magnesium oxide (MAG-OX) 400 mg (241.3 mg magnesium) tablet Take 1 tablet by mouth once daily. - acetaminophen (TYLENOL) 325 mg tablet Take 2 tablets by mouth every 4 hours as needed. - THERAPEUTIC MULTIVITAMIN TAB Take 1 tablet by mouth once daily. Meds Comments as of 12/26/2018: 12/25/18 The medications are managed by this patient by: SPOUSE Ila Winkler PharmD severe interactions reported to [facility] 12/2607/30/18 The medications are managed by this patient by: PATIENT Elsa Gallagher PharmD Problem List As Of Date 12/15/2024 Noted Resolved Mixed hyperlipidemia [E78.2] Acquired hypothyroidism [E03.9] Unspecified hemorrhoids without mention of comp* 10/20/2010 Hiatal hernia [K44.9] 09/15/2024 Diverticulosis of colon (without mention of hem* 10/20/2010 PEPTIC ULCER NOS [K27.9] 05/30/2007 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 [K22.70] 05/30/2007 Esophagitis, unspecified [K20.90] 08/29/2007 10/20/2010 Asthma with chronic obstructive pulmonary disea*07/16/2014 Escobedo's esophagus determined by biopsy [K22.7*08/05/2015 Chronic left-sided low back pain with left-side*12/09/2015 08/18/2021 Overweight (BMI 25.0-29.9) [E66.3] 05/24/2016 Lumbar foraminal stenosis [M48.061] 09/13/2016 Intervertebral disc disorder with radiculopathy* 017 DDD (degenerative disc disease), lumbar [M51.36*09/13/2016 Spondylosis of lumbar region without myelopathy*09/13/2016 Atherosclerotic heart disease of tonawanda coronar* Pre-op testing [Z01.818] 07/23/2018 09/19/2018 Discharge planning issues [Z75.8] 07/23/2018 Difficult intubation [T88.4XXA] 07/24/2018 Pain, postoperative, acute [G89.18] 07/24/2018 Atelectasis [J98.11] 07/24/2018 07/26/2018 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/2018 Postoperative hypotension [I95.81] 07/24/2018 07/25/2018 Coagulopathy (HCC) [D68.9] 07/24/2018 07/25/2018 Hypovolemia [E86.1] 07/24/2018 07/25/2018 Esophageal stricture [K22.2] 07/24/2018 Difficult intravenous access [Z78.9] 07/26/2018 Gastroesophageal reflux disease with (more content not included)... Normal [facility] Absolute lymphocyte countOrd ered By: Haider Lazo on 12-14-2024 Lymphocytes Auto (Unsp spec) [#/Vol] 0.49 10*3/uL Low 0.83-4.51 [facility] Absolute neutrophil countOrd ered By: Haider Lazo on 12-14-2024 Neutrophils (Bld) [#/Vol] 8.4 10*3/uL High 2.0-7.7 [facility] Anion gap in Serum or Plasma Ordered By: Haider Lazo on 12-14-2024 Anion gap [Moles/Vol] 10 mmol/L 5-15 [facility] Automated lymphocyte count a s percentage of total leukocytesOrdered By: Haider Lazo on 12-14-2024 Lymphocytes/100 WBC Auto (Unsp spec) 4.1 % Low 19-41 [facility] BUN/creatinine ratioOrdered By: Haider Lazo on 12-14-2024 Urea nitrogen/Creatinine [Mass ratio] 35.6 mg/mg High 10- [facility] Basic Metabolic Profile (BMP )on 12-14-2024 BUN/CRE 35.6 RATIO High 10- [facility] Comment on above: Performed By: #### L 100.0100, L500.2500 #### [facility] [address] [place], [address] Calcium [Mass/Vol] 8.8 mg/dL Normal 7.6-11.0 [facility] Comment on above: Performed By: #### L 100.0100, L500.2500 #### [facility] [address] [place], [address] Chloride [Moles/Vol] 96 mmol/L Low 98-108 [facility] Comment on above: Performed By: #### L 100.0100, L500.2500 #### [facility] [address] [place], [address] CO2 [Moles/Vol] 28.2 mmol/L Normal 21.0-32.0 [facility] Comment on above: Performed By: #### L 100.0100, L500.2500 #### [facility] [address] [place], [address] Creatinine [Mass/Vol] 0.66 mg/dL Low 0.70-1.20 [facility] Comment on above: Performed By: #### L 100.0100, L500.2500 #### [facility] [address] [place], [address] ECRCL 67.83 ml/min Normal 50-250 [facility] Comment on above: Performed By: #### L 100.0100, L500.2500 #### [facility] [address] [place], [address] GAP 10 Normal 5-15 [facility] Comment on above: Performed By: #### L 100.0100, L500.2500 #### [facility] [address] [place], [address] GFR/1.73 sq M.predicted among non-blacks MDRD (S/P/Bld) [Vol rate/Area] 94 mL/min/{1.73_m2} Normal >60 [facility] Comment on above: Result Comment: mL/m in/1.73m2 CKD-EPI Creatinine Equation (2020) Performed By: #### L 100.0100, L500.2500 #### [facility] [address] [place], [address] Glucose [Mass/Vol] 115 mg/dL High 70-99 [facility] Comment on above: Performed By: #### L 100.0100, L500.2500 #### [facility] [address] [place], [address] Potassium [Moles/Vol] 3.5 mmol/L Normal 3.3-5.1 [facility] Comment on above: Performed By: #### L 100.0100, L500.2500 #### [facility] [address] [place], [address] Sodium [Moles/Vol] 134 mmol/L Normal 133-145 [facility] Comment on above: Performed By: #### L 100.0100, L500.2500 #### [facility] [address] [place], [address] Urea nitrogen [Mass/Vol] 24 mg/dL High 4-19 [facility] [facility] Comment on above: Performed By: #### L 100.0100, L500.2500 #### [facility] [address] [place], [address] Basophil percentageOrdered B y: Haider Lazo on 12-14-2024 Basophils/100 WBC (Bld) 0.4 % 0-1 [facility] Blood manual differential co mment interpretation (narrative result)Ordered By: Haider Lazo on 12-14-2024 Manual differential comment Edi (Bld) [Interp] SCANNED [facility] Comment on above: MONOCYTOSIS NOTED CBC W/Diff, Automatedon SMEAR COMMENT SCANNED Normal [facility] Comment on above: Result Comment: MONO CYTOSIS NOTED Performed By: #### L 100.0100, L500.2500 #### [facility] [address] [place], [address] Carbon dioxide, total [Moles /volume] in Central venous bloodOrdered By: Haider Lazo on 12-14-2024 CO2 [Moles/Vol] 28.2 mmol/L 21.0-32.0 [facility] Chloride assayOrdered By: Dustin Lazo on 12-14-2024 Chloride [Moles/Vol] 96 mmol/L Low 98-108 [facility] Eosinophil percentageOrdered By: Haider Lazo 12-14-2024 Eosinophils/100 WBC (Bld) 0.1 % 0-5 [facility] Erythrocyte distribution wid th ratioOrdered By: Haider Lazo on 12-14-2024 Erythrocyte distribution width (RBC) [Ratio] 18.7 % High 11.6-14.6 [facility] Erythrocyte distribution wid th standard deviationOrdered By: Haider Lazo on 12-14-2024 Erythrocyte distribution width (RBC) [Ratio] 52.9 fl High 35.1-43.9 [facility] Glomerular filtration rate ( GFR) estimation/1.73 sq m using serum, plasma, or whole bOrdered By: Haider Lazo on 12-14-2024 GFR/1.73 sq M.predicted among non-blacks MDRD (S/P/Bld) [Vol rate/Area] 94 mL/min/{1.73_m2} >60 [facility] Comment on above: mL/min/1.73m2 CKD-EP I Creatinine Equation (2020) Hematocrit Auto (Bld) [Volum e fraction]Ordered By: Haider Lazo 12-14-2024 Hematocrit (Bld) [Volume fraction] 31.1 % Low 40-54 [facility] Hemoglobin measurementOrdere d By: Haider Lazo 12-14-2024 Hemoglobin (Bld) [Mass/Vol] 9.7 g/dL Low 13.0-16.5 [facility] Immature granulocytes/100 WB C Auto (Bld)Ordered By: Haider Lazo 12-14-2024 Immature granulocytes/100 WBC (Bld) 2.000 % High 0.0-0.9 [facility] Comment on above: IG% - Immature Granu locytes (promyelocytes, myelocytes and metamyelocytes) > 1% indicates that a LEFT SHIFT is Present. MCV (mean corpuscular volume ) determinationOrdered By: Haider Lazo 12-14-2024 MCV (RBC) [Entitic vol] 78.3 fL Low 80-94 [facility] Mean corpuscular hemoglobin (MCH) determinationOrdered By: Haider Lazo 12-14-2024 MCH (RBC) [Entitic mass] 24.4 pg Low 27.0-32.0 [facility] Mean corpuscular hemoglobin concentration (MCHC) determinationOrdered By: Haider Lazo on 12-14-2024 MCHC (RBC) [Mass/Vol] 31.2 g/dL Low 32-36 [facility] Mean platelet volume determi nationOrdered By: Haider Lazo on 12-14-2024 Platelet mean volume (Bld) [Entitic vol] 10.9 fL 6.2-12.0 [facility] Monocyte percentageOrdered B y: Haider Lazo on 12-14-2024 Monocytes/100 WBC (Bld) 22.6 % High 0-10 [facility] Neutrophil percentageOrdered By: Haider Lazo on 12-14-2024 Neutrophils/100 WBC (Bld) 70.8 % High 47-70 [facility] Nucleated red blood cell per centageOrdered By: Haider Lazo on 12-14-2024 Nucleated RBC/100 WBC (Bld) [Ratio] 0 % 0-5 [facility] Platelet countOrdered By: Dustin Lazo on 12-14-2024 Platelets (Bld) [#/Vol] 284 10*3/uL 150-450 [facility] Potassium measurement (mass/ volume)Ordered By: Haider Lazo on 12-14-2024 Potassium (Unsp spec) [Mass/Vol] 3.5 mmol/L 3.3-5.1 [facility] RBC Auto (Bld) [#/Vol]Ordere d By: Haider Lazo on 12-14-2024 RBC (Bld) [#/Vol] 3.97 10*6/uL Low 4.6-6.2 [facility] Serum creatinine measurement (mass/volume)Ordered By: Haider Lazo on 12-14-2024 Creatinine [Mass/Vol] 0.66 mg/dL Low 0.70-1.20 [facility] Serum glucose measurement (m ass/volume)Ordered By: Haider Lazo on 12-14-2024 Glucose [Mass/Vol] 115 mg/dL High 70-99 [facility] Serum or plasma calcium tamara urement (mass/volume)Ordered By: Haider Lazo on 11-02-2025 Calcium [Mass/Vol] 8.8 mg/dL 7.6-11.0 [facility] Serum or plasma urea nitroge n measurement (mass/volume)Ordered By: Haider Lazo on 12-14-2024 Urea nitrogen [Mass/Vol] 24 mg/dL High 4-19 [facility] Sodium levelOrdered By: Haider Lazo on 12-14-2024 Sodium [Moles/Vol] 134 mmol/L 133-145 [facility] White blood cell (WBC) count Ordered By: Haider Lazo on 12-14-2024 WBC (Bld) [#/Vol] 11.9 10*3/uL High 4.4-11.0 [facility] Basic metabolic 2000 panelon 12-13-2024 Anion gap [Moles/Vol] 11 mmol/L Normal 8-15 [facility] Comment on above: Order Comment: Speci men Type: BLOOD SPECIMENOrdering Facility: [facility] Address: [address] [place] [address] Performed By: #### 2 4321-2, ####HOOD LABORATORYCLIA [id number] [place] [address] [place] Calcium [Mass/Vol] 8.7 mg/dL Normal 8.5-10.2 [facility] Comment on above: Order Comment: Speci men Type: BLOOD SPECIMENOrdering Facility: [facility] Address: [address] [place] [address] Performed By: #### 2 4321-2, ####HOOD LABORATORYCLIA [id number] [place] [id number] [place] Chloride [Moles/Vol] 97 mmol/L Low 98-107 [facility] Comment on above: Order Comment: Speci men Type: BLOOD SPECIMENOrdering Facility: [facility] Address: [address] [place] [address] Performed By: #### 2 4321-2, ####HOOD LABORATORYCLIA [id number] [place] [id number] [place] CO2 [Moles/Vol] 26 mmol/L Normal 22-30 [facility] Comment on above: Order Comment: Speci men Type: BLOOD SPECIMENOrdering Facility: [facility] Address: [address] [place] [id number] Performed By: #### 2 4321-2, ####HOOD LABORATORYCLIA [id number] [place] [id number] [place] Creatinine [Mass/Vol] 0.61 mg/dL Low 0.73-1.22 [facility] Comment on above: Order Comment: Yogi rochelle Type: BLOOD SPECIMENOrdering Facility: [facility] Address: [address] [place] [address] Performed By: #### 2 4321-2, ####HOOD LABORATORYCLIA [id number] [place] [id number] [place] eGFRcr SerPlBld CKD-EPI 2020 96 mL/min/1.73m??? Normal >=60 [facility] Comment on above: Order Comment: Bowenvishal byrd Type: BLOOD SPECIMENOrdering Facility: [facility] Address: [address] [place] [address] Result Comment: Kimberlyn mated Glomerular Filtration Rate (eGFR) is calculated using the 2020 CKD-EPI creatinine equation. This equation utilizes serum creatinine, sex, and age as parameters. The creatinine assay has traceable calibration to isotope dilution-mass spectrometry. Refer to KDIGO guidelines for clinical interpretation. In patients with unstable renal function, e.g. those with acute kidney injury, the eGFR may not accurately reflect actual GFR. Performed By: #### 2 4321-2, ####HOOD LABORATORYCLIA [id number] [place] [id number] [place] Glucose [Mass/Vol] 122 mg/dL High 74-99 [facility] Comment on above: Order Comment: Yogi byrd Type: BLOOD SPECIMENOrdering Facility: [facility] Address: [address] [place] [address] Result Comment: The [place] [employer] (ADA) provides guidance for cutoff values for fasting glucose and random glucose. The ADA defines fasting as no caloric intake for at least 8 hours. Fasting plasma glucose results between 100 to 125 mg/dL indicate increased risk for diabetes (prediabetes).Fasting plasma glucose results greater than or equal to 126 mg/dL meet the criteria for diagnosis of diabetes. In the absence of unequivocal hyperglycemia, results should be confirmed by repeat testing. In a patient with classic symptoms of hyperglycemia or hyperglycemic crisis, random plasma glucose results greater than or equal to 200 mg/dL meet the criteria for diagnosis of diabetes.Reference: Standards of Medical Care in Diabetes 2016, [employer] Diabetes Association. Diabetes Care. 2016.39(Suppl 1). Performed By: #### 2 4321-2, ####HOOD LABORATORYCLIA [id number] [address] STATES OF [facility] Potassium [Moles/Vol] 3.7 mmol/L Normal 3.7-5.1 [facility] Comment on above: Order Comment: Yogi byrd Type: BLOOD SPECIMENOrdering Facility: [facility] Address: [address] [place] [address] Performed By: #### 2 4320-03, ####HOOD LABORATORYCLIA [id number] [address] [place] Sodium [Moles/Vol] 134 mmol/L Low 136-144 [facility] Comment on above: Order Comment: Yogi byrd Type: BLOOD SPECIMENOrdering Facility: [facility] Address: [address] [place] [address] Performed By: #### 2 2, ####HOOD LABORATORYCLIA [id number] [address] [place] Urea nitrogen [Mass/Vol] 22 mg/dL Normal 9-24 [facility] Comment on above: Order Comment: Boweni rochelle Type: BLOOD SPECIMENOrdering Facility: [facility] Address: [address] [place] [address] Performed By: #### 2 2, ####HOOD LABORATORYCLIA [id number] [place] [address] [place] CASE MANAGEMon 12-13-2024 CASE MANAGEM Normal [facility] CASE MANAGEM Normal [facility] CBC W Auto Differential pane l (Bld)on 12-13-2024 Anisocytosis Ql (Bld) Present Normal [facility] Comment on above: Order Comment: Speci men Type: BLOOD SPECIMENOrdering Facility: [facility] Address: [address] [place] [address] Performed By: #### 5 7021-8 ####HOOD LABORATORYCLIA [id number] [place] [address] [place] Basophils (Bld) [#/Vol] 0.00 10*3/uL Normal <0.11 [facility] Comment on above: Order Comment: Speci men Type: BLOOD SPECIMENOrdering Facility: [facility] Address: [address] [place] [address] Performed By: #### 5 7021-8 ####HOOD LABORATORYCLIA [id number] [address] Basophils/100 WBC (Bld) 0.0 % Normal [facility] Comment on above: Order Comment: Speci men Type: BLOOD SPECIMENOrdering Facility: [facility] Address: [address] [place] [address] Performed By: #### 5 7021-8 ####HOOD LABORATORYCLIA [id number] [address] [place] Differential cell count method Nom (Bld) Manual Normal [facility] Comment on above: Order Comment: Speci men Type: BLOOD SPECIMENOrdering Facility: [facility] Address: [address] [place] [address] Performed By: #### 5 7021-8 ####HOOD LABORATORYCLIA [id number] [place] [address] [place] Eosinophils (Bld) [#/Vol] 0.28 10*3/uL Normal <0.46 [facility] Comment on above: Order Comment: Speci men Type: BLOOD SPECIMENOrdering Facility: [facility] Address: [address] [place] [address] Performed By: #### 5 7021-8 ####HOOD LABORATORYCLIA [id number] [address] [place] Eosinophils/100 WBC (Bld) 2.0 % Normal [facility] Comment on above: Order Comment: Speci men Type: BLOOD SPECIMENOrdering Facility: [facility] Address: [address] [place] [address] Performed By: #### 5 7021-8 ####HOOD LABORATORYCLIA [id number] [place] [address] [place] Erythrocyte distribution width (RBC) [Ratio] 18.9 % High 11.5-15.0 [facility] Comment on above: Order Comment: Speci men Type: BLOOD SPECIMENOrdering Facility: [facility] Address: [address] [place] [address] Performed By: #### 5 7021-8 ####HOOD LABORATORYCLIA [id number] [place] [address] [place] Hematocrit (Bld) [Volume fraction] 30.4 % Low 39.0-51.0 [facility] Comment on above: Order Comment: Speci men Type: BLOOD SPECIMENOrdering Facility: [facility] Address: [address] [place] [address] Performed By: #### 5 7021-8 ####HOOD LABORATORYCLIA [id number] [place] [address] [place] Hemoglobin (Bld) [Mass/Vol] 9.6 g/dL Low 13.0-17.0 [facility] Comment on above: Order Comment: Speci men Type: BLOOD SPECIMENOrdering Facility: [facility] Address: [address] [place] [address] Performed By: #### 5 7021-8 ####HOOD LABORATORYCLIA [id number] [place] [address] [place] Lymphocytes (Bld) [#/Vol] 0.70 10*3/uL Low 1.00-4.00 [facility] Comment on above: Order Comment: Speci men Type: BLOOD SPECIMENOrdering Facility: [facility] Address: [address] [place] [address] Performed By: #### 5 7021-8 ####HOOD LABORATORYCLIA [id number] [address] [place] Lymphocytes/100 WBC (Bld) 5.0 % Normal [facility] Comment on above: Order Comment: Speci men Type: BLOOD SPECIMENOrdering Facility: [facility] Address: [address] [place] [address] Performed By: #### 5 7021-8 ####HOOD LABORATORYCLIA [id number] [address] MCH (RBC) [Entitic mass] 25.0 pg Low 26.0-34.0 [facility] Comment on above: Order Comment: Speci men Type: BLOOD SPECIMENOrdering Facility: [facility] Address: [address] [place] [address] Performed By: #### 5 7021-8 ####HOOD LABORATORYCLIA [id number] [address] MCHC (RBC) [Mass/Vol] 31.6 g/dL Normal 30.5-36.0 [facility] Comment on above: Order Comment: Speci men Type: BLOOD SPECIMENOrdering Facility: [facility] Address: [address] [place] [address] Performed By: #### 5 7021-8 ####HOOD LABORATORYCLIA [id number] [address] STATES [facility] MCV (RBC) [Entitic vol] 79.2 fL Low 80.0-100.0 [facility] Comment on above: Order Comment: Speci men Type: BLOOD SPECIMENOrdering Facility: [facility] Address: [address] [place] [address] Performed By: #### 5 7021-8 ####HOOD LABORATORYCLIA [id number] [address] Metamyelocytes/100 WBC (Bld) 1.0 % Normal [facility] Comment on above: Order Comment: Speci men Type: BLOOD SPECIMENOrdering Facility: [facility] Address: [address] [place] [address] Performed By: #### 5 7021-8 ####HOOD LABORATORYCLIA [id number] [address] [place] Monocytes (Bld) [#/Vol] 2.52 10*3/uL High <0.87 [facility] Comment on above: Order Comment: Speci men Type: BLOOD SPECIMENOrdering Facility: [facility] Address: [address] [place] [address] Performed By: #### 5 7021-8 ####HOOD LABORATORYCLIA [id number] [place] [address] [place] Monocytes/100 WBC (Bld) 18.0 % Normal [facility] Comment on above: Order Comment: Speci men Type: BLOOD SPECIMENOrdering Facility: [facility] Address: [address] [place] [address] Performed By: #### 5 7021-8 ####HOOD LABORATORYCLIA [id number] [place] [address] [place] MYELO% 1.0 % Normal [facility] Comment on above: Order Comment: Speci men Type: BLOOD SPECIMENOrdering Facility: [facility] Address: [address] [place] [address] Performed By: #### 5 7021-8 ####HOOD LABORATORYCLIA [id number] [place] [address] [place] Neutrophils (Bld) [#/Vol] 10.21 10*3/uL High 1.45-7.50 [facility] Comment on above: Order Comment: Speci men Type: BLOOD SPECIMENOrdering Facility: [facility] Address: [address] [place] [address] Performed By: #### 5 7021-8 ####HOOD LABORATORYCLIA [id number] [place] [address] [place] Neutrophils/100 WBC (Bld) 73.0 % Normal [facility] Comment on above: Order Comment: Speci men Type: BLOOD SPECIMENOrdering Facility: [facility] Address: [address] [place] [address] Performed By: #### 5 7021-8 ####HOOD LABORATORYCLIA [id number] [place] [address] [place] Nucleated RBC (Bld) [#/Vol] 10*3/uL Normal <0.01 [facility] Comment on above: Order Comment: Speci men Type: BLOOD SPECIMENOrdering Facility: [facility] Address: [address] [place] [address] Performed By: #### 5 7021-8 ####HOOD LABORATORYCLIA [id number] [place] [address] [place] Nucleated RBC/100 WBC (Bld) [Ratio] 0.0 /100 WBC Normal [facility] Comment on above: Order Comment: Speci men Type: BLOOD SPECIMENOrdering Facility: [facility] Address: [address] [place] [address] Performed By: #### 5 7021-8 ####HOOD LABORATORYCLIA [id number] [place] [address] [place] Ovalocytes LM Ql (Bld) Few Normal [facility] Comment on above: Order Comment: Speci men Type: BLOOD SPECIMENOrdering Facility: [facility] Address: [address] [place] [address] Performed By: #### 5 7021-8 ####HOOD LABORATORYCLIA [id number] [place] [address] [place] Platelet mean volume (Bld) [Entitic vol] 11.2 fL Normal 9.0-12.7 [facility] Comment on above: Order Comment: Speci men Type: BLOOD SPECIMENOrdering Facility: [facility] Address: [address] [place] [address] Performed By: #### 5 7021-8 ####HOOD LABORATORYCLIA [id number] [place] [address] [place] Platelets (Bld) [#/Vol] 278 10*3/uL Normal 150-400 [facility] Comment on above: Order Comment: Speci men Type: BLOOD SPECIMENOrdering Facility: [facility] Address: [address] [place] [address] Performed By: #### 5 7021-8 ####HOOD LABORATORYCLIA [id number] [place] [address] [place] Platelets Estimate (Bld) [#/Vol] Adequate Normal [facility] Comment on above: Order Comment: Speci men Type: BLOOD SPECIMENOrdering Facility: [facility] Address: [address] [place] [address] Performed By: #### 5 7021-8 ####HOOD LABORATORYCLIA [id number] [place] [address] [place] RBC (Bld) [#/Vol] 3.84 10*6/uL Low 4.20-6.00 [facility] Comment on above: Order Comment: Speci men Type: BLOOD SPECIMENOrdering Facility: [facility] Address: [address] [place] [address] Performed By: #### 5 7021-8 ####HOOD LABORATORYCLIA [id number] [address] [place] CELL MORPH Reviewed: see result s of individual morphologies [facility] Comment on above: Order Comment: Speci men Type: BLOOD SPECIMENOrdering Facility: [facility] Address: [address] [place] [address] Performed By: #### 5 7021-8 ####HOOD LABORATORYCLIA [id number] [place] [address] [place] WBC (Bld) [#/Vol] 13.99 10*3/uL High 3.70-11.00 [facility] Comment on above: Order Comment: Speci men Type: BLOOD SPECIMENOrdering Facility: [facility] Address: [address] [place] [address] Performed By: #### 5 7021-8 ####HOOD LABORATORYCLIA [id number] [address] STATES [facility] WBC Left Shift Ql (Bld) Present [facility] Comment on above: Order Comment: Speci men Type: BLOOD SPECIMENOrdering Facility: [facility] Address: [address] [place] [address] Performed By: #### 5 7021-8 ####HOOD LABORATORYCLIA [id number] [address] [place] CNDSon 12-13-2024 CNDS [facility] CONSULT PROGon 12-13-2024 CONSULT PROG [facility] Magnesium SerPl-mCncon 12-13 Magnesium [Mass/Vol] 2.0 mg/dL Normal 1.7-2.3 [facility] Comment on above: Order Comment: Speci men Type: BLOOD SPECIMENOrdering Facility: [facility] Address: [address] [place] [address] Performed By: #### 2 4321-2, ####HOOD LABORATORYCLIA [id number] [place] [address] [place] NURSING PROGon 12-13-2024 NURSING PROG [facility] THERAPY NTon 12-13-2024 THERAPY NT Normal [facility] ALLIED HEALTHon 12-12-2024 ALLIED HEALTH [facility] Basic metabolic 2000 panelon 12-12-2024 Anion gap [Moles/Vol] 10 mmol/L Normal 8-15 [facility] Comment on above: Order Comment: Speci men Type: BLOOD SPECIMENOrdering Facility: [facility] Address: [address] [place] [address] Performed By: #### 2 4321-2, ####HOOD LABORATORYCLIA [id number] [place] [address] [place] Calcium [Mass/Vol] 8.8 mg/dL Normal 8.5-10.2 [facility] Comment on above: Order Comment: Speci men Type: BLOOD SPECIMENOrdering Facility: [facility] Address: [address] [place] [address] Performed By: #### 2 4321-2, ####HOOD LABORATORYCLIA [id number] [place] [id number] [place] Chloride [Moles/Vol] 98 mmol/L Normal 98-107 [facility] Comment on above: Order Comment: Speci men Type: BLOOD SPECIMENOrdering Facility: [facility] Address: [address] [place] [address] Performed By: #### 2 4321-2, ####HOOD LABORATORYCLIA [id number] [place] [address] [place] CO2 [Moles/Vol] 28 mmol/L Normal 22-30 [facility] Comment on above: Order Comment: Speci men Type: BLOOD SPECIMENOrdering Facility: [facility] Address: [address] [place] [address] Performed By: #### 2 4321-2, ####HOOD LABORATORYCLIA [id number] [place] [id number] [place] Creatinine [Mass/Vol] 0.64 mg/dL Low 0.73-1.22 [facility] Comment on above: Order Comment: Yogi rochelle Type: BLOOD SPECIMENOrdering Facility: [facility] Address: [address] [place] [address] Performed By: #### 2 432-2, ####HOOD LABORATORYCLIA [id number] [place] [id number] [place] eGFRcr SerPlBld CKD-EPI 2020 95 mL/min/1.73m??? Normal >=60 [facility] Comment on above: Order Comment: Bowenvishal byrd Type: BLOOD SPECIMENOrdering Facility: [facility] Address: [address] [place] [address] Result Comment: Kimberlyn mated Glomerular Filtration Rate (eGFR) is calculated using the 2020 CKD-EPI creatinine equation. This equation utilizes serum creatinine, sex, and age as parameters. The creatinine assay has traceable calibration to isotope dilution-mass spectrometry. Refer to KDIGO guidelines for clinical interpretation. In patients with unstable renal function, e.g. those with acute kidney injury, the eGFR may not accurately reflect actual GFR. Performed By: #### 2 4321-2, ####HOOD LABORATORYCLIA [id number] [place] [id number] [place] Glucose [Mass/Vol] 122 mg/dL High 74-99 [facility] Comment on above: Order Comment: Yogi byrd Type: BLOOD SPECIMENOrdering Facility: [facility] Address: [address] [place] [address] Result Comment: The [employer] Diabetes Association (ADA) provides guidance for cutoff values for fasting glucose and random glucose. The ADA defines fasting as no caloric intake for at least 8 hours. Fasting plasma glucose results between 100 to 125 mg/dL indicate increased risk for diabetes (prediabetes).Fasting plasma glucose results greater than or equal to 126 mg/dL meet the criteria for diagnosis of diabetes. In the absence of unequivocal hyperglycemia, results should be confirmed by repeat testing. In a patient with classic symptoms of hyperglycemia or hyperglycemic crisis, random plasma glucose results greater than or equal to 200 mg/dL meet the criteria for diagnosis of diabetes.Reference: Standards of Medical Care in Diabetes 2016, [employer] Diabetes Association. Diabetes Care. 2016.39(Suppl 1). Performed By: #### 2 4320-2, ####HOOD LABORATORYCLIA [id number] [place] [address] [place] Potassium [Moles/Vol] 3.5 mmol/L Low 3.7-5.1 [facility] Comment on above: Order Comment: Speci men Type: BLOOD SPECIMENOrdering Facility: [facility] Address: [address] [place] [address] Performed By: #### 2 4320-03, ####HOOD LABORATORYCLIA [id number] [address] STATES OF [facility] Sodium [Moles/Vol] 136 mmol/L Normal 136-144 [facility] Comment on above: Order Comment: Speci men Type: BLOOD SPECIMENOrdering Facility: [facility] Address: [address] [place] [address] Performed By: #### 2 4320-03, ####HOOD LABORATORYCLIA [id number] [address] [place] Urea nitrogen [Mass/Vol] 24 mg/dL Normal 9-24 [facility] Comment on above: Order Comment: Speci men Type: BLOOD SPECIMENOrdering Facility: [facility] Address: [address] [place] [address] Performed By: #### 2 4320-03, ####HOOD LABORATORYCLIA [id number] [address] [place] CASE MANAGEMon 12-12-2024 CASE MANAGEM Normal [facility] CBC W Auto Differential pane l (Bld)on 12-12-2024 Acanthocytes LM Ql (Bld) Few Normal [facility] Comment on above: Order Comment: Speci men Type: BLOOD SPECIMENOrdering Facility: [facility] Address: [address] [place] [address] Performed By: #### 5 7021-8 ####HOOD LABORATORYCLIA [id number] [place] [address] [place] Anisocytosis Ql (Bld) Present Normal [facility] Comment on above: Order Comment: Speci men Type: BLOOD SPECIMENOrdering Facility: [facility] Address: [address] [place] [address] Performed By: #### 5 7021-8 ####HOOD LABORATORYCLIA [id number] [place] [address] [place] Basophils (Bld) [#/Vol] 0.00 10*3/uL Normal <0.11 [facility] Comment on above: Order Comment: Speci men Type: BLOOD SPECIMENOrdering Facility: [facility] Address: [address] [place] [address] Performed By: #### 5 7021-8 ####HOOD LABORATORYCLIA [id number] [place] [address] [place] Basophils/100 WBC (Bld) 0.0 % Normal [facility] Comment on above: Order Comment: Speci men Type: BLOOD SPECIMENOrdering Facility: [facility] Address: [address] [place] [address] Performed By: #### 5 7021-8 ####HOOD LABORATORYCLIA [id number] [place] [address] [place] Differential cell count method Nom (Bld) Manual Normal [facility] Comment on above: Order Comment: Speci men Type: BLOOD SPECIMENOrdering Facility: [facility] Address: [address] [place] [address] Performed By: #### 5 7021-8 ####HOOD LABORATORYCLIA [id number] [place] [address] [place] Eosinophils (Bld) [#/Vol] 0.00 10*3/uL Normal <0.46 [facility] Comment on above: Order Comment: Speci men Type: BLOOD SPECIMENOrdering Facility: [facility] Address: [address] [place] [address] Performed By: #### 5 7021-8 ####HOOD LABORATORYCLIA [id number] [place] [address] [place] Eosinophils/100 WBC (Bld) 0.0 % Normal [facility] Comment on above: Order Comment: Speci men Type: BLOOD SPECIMENOrdering Facility: [facility] Address: [address] [place] [address] Performed By: #### 5 7021-8 ####HOOD LABORATORYCLIA [id number] [address] [place] Erythrocyte distribution width (RBC) [Ratio] 18.8 % High 11.5-15.0 [facility] Comment on above: Order Comment: Speci men Type: BLOOD SPECIMENOrdering Facility: [facility] Address: [address] [place] [address] Performed By: #### 5 7021-8 ####HOOD LABORATORYCLIA [id number] [address] [place] Hematocrit (Bld) [Volume fraction] 30.6 % Low 39.0-51.0 [facility] Comment on above: Order Comment: Speci men Type: BLOOD SPECIMENOrdering Facility: [facility] Address: [address] [place] [address] Performed By: #### 5 7021-8 ####HOOD LABORATORYCLIA [id number] [address] [place] Hemoglobin (Bld) [Mass/Vol] 9.4 g/dL Low 13.0-17.0 [facility] Comment on above: Order Comment: Speci men Type: BLOOD SPECIMENOrdering Facility: [facility] Address: [address] [place] [address] Performed By: #### 5 7021-8 ####HOOD LABORATORYCLIA [id number] [address] [place] Lymphocytes (Bld) [#/Vol] 0.20 10*3/uL Low 1.00-4.00 [facility] Comment on above: Order Comment: Speci men Type: BLOOD SPECIMENOrdering Facility: [facility] Address: [address] [place] [address] Performed By: #### 5 7021-8 ####HOOD LABORATORYCLIA [id number] [address] STATES [facility] Lymphocytes/100 WBC (Bld) 1.0 % Normal [facility] Comment on above: Order Comment: Speci men Type: BLOOD SPECIMENOrdering Facility: [facility] Address: [address] [place] [address] Performed By: #### 5 7021-8 ####HOOD LABORATORYCLIA [id number] [place] [address] [place] MCH (RBC) [Entitic mass] 24.9 pg Low 26.0-34.0 [facility] Comment on above: Order Comment: Speci men Type: BLOOD SPECIMENOrdering Facility: [facility] Address: [address] [place] [address] Performed By: #### 5 7021-8 ####HOOD LABORATORYCLIA [id number] [address] [place] MCHC (RBC) [Mass/Vol] 30.7 g/dL Normal 30.5-36.0 [facility] Comment on above: Order Comment: Speci men Type: BLOOD SPECIMENOrdering Facility: [facility] Address: [address] [place] [address] Performed By: #### 5 7021-8 ####HOOD LABORATORYCLIA [id number] [address] [place] MCV (RBC) [Entitic vol] 81.2 fL Normal 80.0-100.0 [facility] Comment on above: Order Comment: Speci men Type: BLOOD SPECIMENOrdering Facility: [facility] Address: [address] [place] [address] Performed By: #### 5 7021-8 ####HOOD LABORATORYCLIA [id number] [address] OF [place] Metamyelocytes/100 WBC (Bld) 1.0 % Normal [facility] Comment on above: Order Comment: Speci men Type: BLOOD SPECIMENOrdering Facility: [facility] Address: [address] [place] [address] Performed By: #### 5 7021-8 ####HOOD LABORATORYCLIA [id number] [place] [address] [place] Monocytes (Bld) [#/Vol] 3.32 10*3/uL High <0.87 [facility] Comment on above: Order Comment: Speci men Type: BLOOD SPECIMENOrdering Facility: [facility] Address: [address] [place] [address] Performed By: #### 5 7021-8 ####HOOD LABORATORYCLIA [id number] [address] [place] Monocytes/100 WBC (Bld) 17.0 % Normal [facility] Comment on above: Order Comment: Speci men Type: BLOOD SPECIMENOrdering Facility: [facility] Address: [address] [place] [address] Performed By: #### 5 7021-8 ####HOOD LABORATORYCLIA [id number] [place] [address] [place] MYELO% 1.0 % Normal [facility] Comment on above: Order Comment: Speci men Type: BLOOD SPECIMENOrdering Facility: [facility] Address: [address] [place] [address] Performed By: #### 5 7021-8 ####HOOD LABORATORYCLIA [id number] [place] [address] [place] Neutrophils (Bld) [#/Vol] 15.61 10*3/uL High 1.45-7.50 [facility] Comment on above: Order Comment: Speci men Type: BLOOD SPECIMENOrdering Facility: [facility] Address: [address] [place] [address] Performed By: #### 5 7021-8 ####HOOD LABORATORYCLIA [id number] [address] [place] Neutrophils/100 WBC (Bld) 80.0 % Normal [facility] Comment on above: Order Comment: Speci men Type: BLOOD SPECIMENOrdering Facility: [facility] Address: [address] [place] [address] Performed By: #### 5 7021-8 ####HOOD LABORATORYCLIA [id number] [place] [address] [place] Nucleated RBC (Bld) [#/Vol] 10*3/uL Normal <0.01 [facility] Comment on above: Order Comment: Speci men Type: BLOOD SPECIMENOrdering Facility: [facility] Address: [address] [place] [address] Performed By: #### 5 7021-8 ####HOOD LABORATORYCLIA [id number] [place] [address] [place] Nucleated RBC/100 WBC (Bld) [Ratio] 0.0 /100 WBC Normal [facility] Comment on above: Order Comment: Speci men Type: BLOOD SPECIMENOrdering Facility: [facility] Address: [address] [place] [address] Performed By: #### 5 7021-8 ####HOOD LABORATORYCLIA [id number] [place] [address] [place] Ovalocytes LM Ql (Bld) Few Normal [facility] Comment on above: Order Comment: Speci men Type: BLOOD SPECIMENOrdering Facility: [facility] Address: [address] [place] [address] Performed By: #### 5 7021-8 ####HOOD LABORATORYCLIA [id number] [place] [address] [place] Platelet mean volume (Bld) [Entitic vol] 11.4 fL Normal 9.0-12.7 [facility] Comment on above: Order Comment: Speci men Type: BLOOD SPECIMENOrdering Facility: [facility] Address: [address] [place] [address] Performed By: #### 5 7021-8 ####HOOD LABORATORYCLIA [id number] [place] [address] [place] Platelets (Bld) [#/Vol] 287 10*3/uL Normal 150-400 [facility] Comment on above: Order Comment: Speci men Type: BLOOD SPECIMENOrdering Facility: [facility] Address: [address] [place] [address] Performed By: #### 5 7021-8 ####HOOD LABORATORYCLIA [id number] [address] [place] Platelets Estimate (Bld) [#/Vol] Adequate Normal [facility] Comment on above: Order Comment: Speci men Type: BLOOD SPECIMENOrdering Facility: [facility] Address: [address] [place] [address] Performed By: #### 5 7021-8 ####HOOD LABORATORYCLIA [id number] [address] [place] RBC (Bld) [#/Vol] 3.77 10*6/uL Low 4.20-6.00 [facility] Comment on above: Order Comment: Speci men Type: BLOOD SPECIMENOrdering Facility: [facility] Address: [address] [place] [address] Performed By: #### 5 7021-8 ####HOOD LABORATORYCLIA [id number] [address] [place] RBC FRAGMENTS Few Abnormal None Seen [facility] Comment on above: Order Comment: Speci men Type: BLOOD SPECIMENOrdering Facility: [facility] Address: [address] [place] [address] Performed By: #### 5 7021-8 ####HOOD LABORATORYCLIA [id number] [address] [place] MORPH Reviewed: see result s of individual morphologies Normal [facility] Comment on above: Order Comment: Speci men Type: BLOOD SPECIMENOrdering Facility: [facility] Address: [address] [place] [address] Performed By: #### 5 7021-8 ####HOOD LABORATORYCLIA [id number] [address] [place] WBC (Bld) [#/Vol] 19.51 10*3/uL High 3.70-11.00 [facility] Comment on above: Order Comment: Speci men Type: BLOOD SPECIMENOrdering Facility: [facility] Address: [address] [place] [address] Performed By: #### 5 7021-8 ####HOOD LABORATORYCLIA [id number] [place] [address] [place] WBC Left Shift Ql (Bld) Present Normal [facility] Comment on above: Order Comment: Speci men Type: BLOOD SPECIMENOrdering Facility: [facility] Address: [address] [place] [id number] Performed By: #### 5 7021-8 ####HOOD LABORATORYCLIA [id number] [place] [address] [place] CONSULT PROGon 12-12-2024 CONSULT PROG [facility] CONSULT PROG [facility] CT ABD/PEL W IVCONon 025 CT ABD/PEL W IVCON [facility] CT CHEST W IVCONon 5 CT CHEST W IVCON [facility] Magnesium SerPl-mCncon 12-12 Magnesium [Mass/Vol] 2.0 mg/dL Normal 1.7-2.3 [facility] Comment on above: Order Comment: Speci men Type: BLOOD SPECIMENOrdering Facility: [facility] Address: [address] [place] [address] Performed By: #### 2 4321-2, 71940-2 ####HOOD LABORATORYCLIA [id number] [place] [address] [place] Basic metabolic 2000 panelon 12-11-2024 Anion gap [Moles/Vol] 8 mmol/L Normal 8-15 [facility] Comment on above: Order Comment: Speci men Type: BLOOD SPECIMENOrdering Facility: [facility] Address: [address] [place] [id number] Performed By: #### 1 9123-9, 10563-1 ####HOOD LABORATORYCLIA [id number] [place] [address] [place] Calcium [Mass/Vol] 9.0 mg/dL Normal 8.5-10.2 [facility] Comment on above: Order Comment: Speci men Type: BLOOD SPECIMENOrdering Facility: [facility] Address: [address] [place] [address] Performed By: #### 1 9123-9, 07571-0 ####HOOD LABORATORYCLIA [id number] [place] [address] [place] Chloride [Moles/Vol] 98 mmol/L Normal 98-107 [facility] Comment on above: Order Comment: Speci men Type: BLOOD SPECIMENOrdering Facility: [facility] Address: [address] [place] [address] Performed By: #### 1 9123-9, 91629-0 ####HOOD LABORATORYCLIA [id number] [place] [id number] [place] CO2 [Moles/Vol] 29 mmol/L Normal 22-30 [facility] Comment on above: Order Comment: Speci men Type: BLOOD SPECIMENOrdering Facility: [facility] Address: [address] [place] [address] Performed By: #### 1 9123-9, 59679-8 ####WESTON LABORATORYCLIA [id number] [place] [address] [place] Creatinine [Mass/Vol] 0.78 mg/dL Normal 0.73-1.22 [facility] Comment on above: Order Comment: Boweni rochelle Type: BLOOD SPECIMENOrdering Facility: [facility] Address: [address] [place] [address] Performed By: #### 1 9123-9, 47460-9 ####WESTON LABORATORYCLIA [id number] [place] [address] [place] eGFRcr SerPlBld CKD-EPI 2020 90 mL/min/1.73m??? Normal >=60 [facility] Comment on above: Order Comment: Yogi men Type: BLOOD SPECIMENOrdering Facility: [facility] Address: [address] [place] [address] Result Comment: Kimberlyn mated Glomerular Filtration Rate (eGFR) is calculated using the 2020 CKD-EPI creatinine equation. This equation utilizes serum creatinine, sex, and age as parameters. The creatinine assay has traceable calibration to isotope dilution-mass spectrometry. Refer to KDIGO guidelines for clinical interpretation. In patients with unstable renal function, e.g. those with acute kidney injury, the eGFR may not accurately reflect actual GFR. Performed By: #### 1 91239, 59762-1 ####HOOD LABORATORYCLIA [id number] [place] [address] [place] Glucose [Mass/Vol] 121 mg/dL High 74-99 [facility] Comment on above: Order Comment: Yogi byrd Type: BLOOD SPECIMENOrdering Facility: [facility] Address: [address] [place] [address] Result Comment: The [place] Diabetes Association (ADA) provides guidance for cutoff values for fasting glucose and random glucose. The ADA defines fasting as no caloric intake for at least 8 hours. Fasting plasma glucose results between 100 to 125 mg/dL indicate increased risk for diabetes (prediabetes).Fasting plasma glucose results greater than or equal to 126 mg/dL meet the criteria for diagnosis of diabetes. In the absence of unequivocal hyperglycemia, results should be confirmed by repeat testing. In a patient with classic symptoms of hyperglycemia or hyperglycemic crisis, random plasma glucose results greater than or equal to 200 mg/dL meet the criteria for diagnosis of diabetes.Reference: Standards of Medical Care in Diabetes 2016, [employer]. Diabetes Care. 2016.39(Suppl 1). Performed By: #### 1 91239, 13624-2 ####WESTON LABORATORYCLIA [id number] [place] [address] [place] Potassium [Moles/Vol] 4.1 mmol/L Normal 3.7-5.1 [facility] Comment on above: Order Comment: Yogi byrd Type: BLOOD SPECIMENOrdering Facility: [facility] Address: [address] [place] [address] Performed By: #### 1 91239, ####HOOD LABORATORYCLIA [id number] [place] [id number] [place] Sodium [Moles/Vol] 135 mmol/L Low 136-144 [facility] Comment on above: Order Comment: Yogi byrd Type: BLOOD SPECIMENOrdering Facility: [facility] Address: [address] [place] [address] Performed By: #### 1 91239, 60518-6 ####HOOD LABORATORYCLIA [id number] [place] [address] [place] Urea nitrogen [Mass/Vol] 25 mg/dL High 9-24 [facility] Comment on above: Order Comment: Speci men Type: BLOOD SPECIMENOrdering Facility: [facility] Address: [address] [place] [address] Performed By: #### 1 9123-9, 65881-5 ####HOOD LABORATORYCLIA [id number] [place] [address] [place] CBC W Auto Differential pane l (Bld)on 12-11-2024 Anisocytosis Ql (Bld) Present Normal [facility] Comment on above: Order Comment: Speci men Type: BLOOD SPECIMENOrdering Facility: [facility] Address: [address] [place] [address] Performed By: #### 5 7021-8 ####HOOD LABORATORYCLIA [id number] [place] [address] [place] Basophils (Bld) [#/Vol] 0.00 10*3/uL Normal <0.11 [facility] Comment on above: Order Comment: Speci men Type: BLOOD SPECIMENOrdering Facility: [facility] Address: [address] [place] [address] Performed By: #### 5 7021-8 ####HOOD LABORATORYCLIA [id number] [address] [place] Basophils/100 WBC (Bld) 0.0 % Normal [facility] Comment on above: Order Comment: Speci men Type: BLOOD SPECIMENOrdering Facility: [facility] Address: [address] [place] [address] Performed By: #### 5 7021-8 ####HOOD LABORATORYCLIA [id number] [place] [address] [place] Differential cell count method Nom (Bld) Manual Normal [facility] Comment on above: Order Comment: Speci men Type: BLOOD SPECIMENOrdering Facility: [facility] Address: [address] [place] [address] Performed By: #### 5 7021-8 ####HOOD LABORATORYCLIA [id number] [address] [place] Eosinophils (Bld) [#/Vol] 0.00 10*3/uL Normal <0.46 [facility] Comment on above: Order Comment: Speci men Type: BLOOD SPECIMENOrdering Facility: [facility] Address: [address] [place] [address] Performed By: #### 5 7021-8 ####HOOD LABORATORYCLIA [id number] [address] [place] Eosinophils/100 WBC (Bld) 0.0 % Normal [facility] Comment on above: Order Comment: Speci men Type: BLOOD SPECIMENOrdering Facility: [facility] Address: [address] [place] [address] Performed By: #### 5 7021-8 ####HOOD LABORATORYCLIA [id number] [address] [place] Erythrocyte distribution width (RBC) [Ratio] 18.8 % High 11.5-15.0 [facility] Comment on above: Order Comment: Speci men Type: BLOOD SPECIMENOrdering Facility: [facility] Address: [address] [place] [address] Performed By: #### 5 7021-8 ####HOOD LABORATORYCLIA [id number] [address] Hematocrit (Bld) [Volume fraction] 30.0 % Low 39.0-51.0 [facility] Comment on above: Order Comment: Speci men Type: BLOOD SPECIMENOrdering Facility: [facility] Address: [address] [place] [address] Performed By: #### 5 7021-8 ####HOOD LABORATORYCLIA [id number] [address] [place] Hemoglobin (Bld) [Mass/Vol] 9.4 g/dL Low 13.0-17.0 [facility] Comment on above: Order Comment: Speci men Type: BLOOD SPECIMENOrdering Facility: [facility] Address: [address] [place] [address] Performed By: #### 5 7021-8 ####HOOD LABORATORYCLIA [id number] [address] OF [place] Lymphocytes (Bld) [#/Vol] 0.25 10*3/uL Low 1.00-4.00 [facility] Comment on above: Order Comment: Speci men Type: BLOOD SPECIMENOrdering Facility: [facility] Address: [address] [place] [address] Performed By: #### 5 7021-8 ####HOOD LABORATORYCLIA [id number] [address] [place] Lymphocytes/100 WBC (Bld) 1.0 % Normal [facility] Comment on above: Order Comment: Speci men Type: BLOOD SPECIMENOrdering Facility: [facility] Address: [address] [place] [address] Performed By: #### 5 7021-8 ####HOOD LABORATORYCLIA [id number] [address] [place] MCH (RBC) [Entitic mass] 24.9 pg Low 26.0-34.0 [facility] Comment on above: Order Comment: Speci men Type: BLOOD SPECIMENOrdering Facility: [facility] Address: [address] [place] [address] Performed By: #### 5 7021-8 ####HOOD LABORATORYCLIA [id number] [address] [place] MCHC (RBC) [Mass/Vol] 31.3 g/dL Normal 30.5-36.0 [facility] Comment on above: Order Comment: Speci men Type: BLOOD SPECIMENOrdering Facility: [facility] Address: [address] [place] [address] Performed By: #### 5 7021-8 ####HOOD LABORATORYCLIA [id number] [address] MCV (RBC) [Entitic vol] 79.6 fL Low 80.0-100.0 [facility] Comment on above: Order Comment: Speci men Type: BLOOD SPECIMENOrdering Facility: [facility] Address: [address] [place] [address] Performed By: #### 5 7021-8 ####HOOD LABORATORYCLIA [id number] [address] [place] Metamyelocytes/100 WBC (Bld) 1.0 % Normal [facility] Comment on above: Order Comment: Speci men Type: BLOOD SPECIMENOrdering Facility: [facility] Address: [address] [place] [address] Performed By: #### 5 7021-8 ####HOOD LABORATORYCLIA [id number] [place] [address] [place] Monocytes (Bld) [#/Vol] 4.97 10*3/uL High <0.87 [facility] Comment on above: Order Comment: Speci men Type: BLOOD SPECIMENOrdering Facility: [facility] Address: [address] [place] [address] Performed By: #### 5 7021-8 ####HOOD LABORATORYCLIA [id number] [address] Monocytes/100 WBC (Bld) 20.0 % Normal [facility] Comment on above: Order Comment: Speci men Type: BLOOD SPECIMENOrdering Facility: [facility] Address: [address] [place] [address] Performed By: #### 5 7021-8 ####HOOD LABORATORYCLIA [id number] [address] [place] MYELO% 2.0 % Normal [facility] Comment on above: Order Comment: Speci men Type: BLOOD SPECIMENOrdering Facility: [facility] Address: [address] [place] [address] Performed By: #### 5 7021-8 ####HOOD LABORATORYCLIA [id number] [place] [address] [place] Neutrophils (Bld) [#/Vol] 18.88 10*3/uL High 1.45-7.50 [facility] Comment on above: Order Comment: Speci men Type: BLOOD SPECIMENOrdering Facility: [facility] Address: [address] [place] [address] Performed By: #### 5 7021-8 ####HOOD LABORATORYCLIA [id number] [address] Neutrophils/100 WBC (Bld) 76.0 % Normal [facility] Comment on above: Order Comment: Speci men Type: BLOOD SPECIMENOrdering Facility: [facility] Address: [address] [place] [address] Performed By: #### 5 7021-8 ####HOOD LABORATORYCLIA [id number] [place] [address] [place] Nucleated RBC (Bld) [#/Vol] 10*3/uL Normal <0.01 [facility] Comment on above: Order Comment: Speci men Type: BLOOD SPECIMENOrdering Facility: [facility] Address: [address] [place] [address] Performed By: #### 5 7021-8 ####HOOD LABORATORYCLIA [id number] [address] [place] Nucleated RBC/100 WBC (Bld) [Ratio] 0.0 /100 WBC Normal [facility] Comment on above: Order Comment: Speci men Type: BLOOD SPECIMENOrdering Facility: [facility] Address: [address] [place] [address] Performed By: #### 5 7021-8 ####HOOD LABORATORYCLIA [id number] [place] [address] [place] Ovalocytes LM Ql (Bld) Few Normal [facility] Comment on above: Order Comment: Speci men Type: BLOOD SPECIMENOrdering Facility: [facility] Address: [address] [place] [address] Performed By: #### 5 7021-8 ####HOOD LABORATORYCLIA [id number] [place] [address] [place] Platelet mean volume (Bld) [Entitic vol] 11.2 fL Normal 9.0-12.7 [facility] Comment on above: Order Comment: Speci men Type: BLOOD SPECIMENOrdering Facility: [facility] Address: [address] [place] [address] Performed By: #### 5 7021-8 ####HOOD LABORATORYCLIA [id number] [address] Platelets (Bld) [#/Vol] 299 10*3/uL Normal 150-400 [facility] Comment on above: Order Comment: Speci men Type: BLOOD SPECIMENOrdering Facility: [facility] Address: [address] [place] [address] Performed By: #### 5 7021-8 ####HOOD LABORATORYCLIA [id number] [address] Platelets Estimate (Bld) [#/Vol] Adequate Normal [facility] Comment on above: Order Comment: Speci men Type: BLOOD SPECIMENOrdering Facility: [facility] Address: [address] [place] [address] Performed By: #### 5 7021-8 ####HOOD LABORATORYCLIA [id number] [address] RBC (Bld) [#/Vol] 3.77 10*6/uL Low 4.20-6.00 [facility] Comment on above: Order Comment: Speci men Type: BLOOD SPECIMENOrdering Facility: [facility] Address: [address] [place] [address] Performed By: #### 5 7021-8 ####HOOD LABORATORYCLIA [id number] [address] RBC FRAGMENTS Few Abnormal None Seen [facility] Comment on above: Order Comment: Speci men Type: BLOOD SPECIMENOrdering Facility: [facility] Address: [address] [place] [address] Performed By: #### 5 7021-8 ####HOOD LABORATORYCLIA [id number] [address] RED CELL MORPH Reviewed: see result s of individual morphologies Normal [facility] Comment on above: Order Comment: Speci men Type: BLOOD SPECIMENOrdering Facility: [facility] Address: [address] [place] [address] Performed By: #### 5 7021-8 ####HOOD LABORATORYCLIA [id number] [address] Target cells LM Ql (Bld) Few Normal [facility] Comment on above: Order Comment: Speci men Type: BLOOD SPECIMENOrdering Facility: [facility] Address: [address] [place] [address] Performed By: #### 5 7021-8 ####HOOD LABORATORYCLIA [id number] [address] OF [place] WBC (Bld) [#/Vol] 24.84 10*3/uL High 3.70-11.00 [facility] Comment on above: Order Comment: Speci men Type: BLOOD SPECIMENOrdering Facility: [facility] Address: [address] [place] [address] Performed By: #### 5 7021-8 ####HOOD LABORATORYCLIA [id number] [address] WBC Left Shift Ql (Bld) Present Normal [facility] Comment on above: Order Comment: Speci men Type: BLOOD SPECIMENOrdering Facility: [facility] Address: [address] [place] [address] Performed By: #### 5 7021-8 ####OHOD LABORATORYCLIA [id number] [address] Anisocytosis Ql (Bld) Present Normal [facility] Comment on above: Order Comment: Speci men Type: BLOOD SPECIMENOrdering Facility: [facility] Address: [address] [place] [address] Performed By: #### 5 7021-8 ####HOOD LABORATORYCLIA [id number] [address] [place] Basophils (Bld) [#/Vol] 0.19 10*3/uL High <0.11 [facility] Comment on above: Order Comment: Speci men Type: BLOOD SPECIMENOrdering Facility: [facility] Address: [address] [place] [address] Performed By: #### 5 7021-8 ####HOOD LABORATORYCLIA [id number] [address] Basophils/100 WBC (Bld) 1.0 % Normal [facility] Comment on above: Order Comment: Speci men Type: BLOOD SPECIMENOrdering Facility: [facility] Address: [address] [place] [address] Performed By: #### 5 7021-8 ####HOOD LABORATORYCLIA [id number] [address] [place] Differential cell count method Nom (Bld) Manual Normal [facility] Comment on above: Order Comment: Speci men Type: BLOOD SPECIMENOrdering Facility: [facility] Address: [address] [place] [address] Performed By: #### 5 7021-8 ####HOOD LABORATORYCLIA [id number] [place] [address] [place] Eosinophils (Bld) [#/Vol] 0.00 10*3/uL Normal <0.46 [facility] Comment on above: Order Comment: Speci men Type: BLOOD SPECIMENOrdering Facility: [facility] Address: [address] [place] [address] Performed By: #### 5 7021-8 ####HOOD LABORATORYCLIA [id number] [address] OF [place] Eosinophils/100 WBC (Bld) 0.0 % Normal [facility] Comment on above: Order Comment: Speci men Type: BLOOD SPECIMENOrdering Facility: [facility] Address: [address] [place] [address] Performed By: #### 5 7021-8 ####HOOD LABORATORYCLIA [id number] [address] [place] Erythrocyte distribution width (RBC) [Ratio] 18.9 % High 11.5-15.0 [facility] Comment on above: Order Comment: Speci men Type: BLOOD SPECIMENOrdering Facility: [facility] Address: [address] [place] [address] Performed By: #### 5 7021-8 ####HOOD LABORATORYCLIA [id number] [address] [place] Hematocrit (Bld) [Volume fraction] 31.0 % Low 39.0-51.0 [facility] Comment on above: Order Comment: Speci men Type: BLOOD SPECIMENOrdering Facility: [facility] Address: [address] [place] [address] Performed By: #### 5 7021-8 ####HOOD LABORATORYCLIA [id number] [address] STATES [facility] Hemoglobin (Bld) [Mass/Vol] 9.5 g/dL Low 13.0-17.0 [facility] Comment on above: Order Comment: Speci men Type: BLOOD SPECIMENOrdering Facility: [facility] Address: [address] [place] [address] Performed By: #### 5 7021-8 ####HOOD LABORATORYCLIA [id number] [place] [address] [place] Lymphocytes (Bld) [#/Vol] 0.74 10*3/uL Low 1.00-4.00 [facility] Comment on above: Order Comment: Speci men Type: BLOOD SPECIMENOrdering Facility: [facility] Address: [address] [place] [address] Performed By: #### 5 7021-8 ####HOOD LABORATORYCLIA [id number] [address] Lymphocytes/100 WBC (Bld) 4.0 % Normal [facility] Comment on above: Order Comment: Speci men Type: BLOOD SPECIMENOrdering Facility: [facility] Address: [address] [place] [address] Performed By: #### 5 7021-8 ####HOOD LABORATORYCLIA [id number] [address] [place] MCH (RBC) [Entitic mass] 24.7 pg Low 26.0-34.0 [facility] Comment on above: Order Comment: Speci men Type: BLOOD SPECIMENOrdering Facility: [facility] Address: [address] [place] [address] Performed By: #### 5 7021-8 ####HOOD LABORATORYCLIA [id number] [address] [place] MCHC (RBC) [Mass/Vol] 30.6 g/dL Normal 30.5-36.0 [facility] Comment on above: Order Comment: Speci men Type: BLOOD SPECIMENOrdering Facility: [facility] Address: [address] [place] [address] Performed By: #### 5 7021-8 ####HOOD LABORATORYCLIA [id number] [place] [address] [place] MCV (RBC) [Entitic vol] 80.5 fL Normal 80.0-100.0 [facility] Comment on above: Order Comment: Speci men Type: BLOOD SPECIMENOrdering Facility: [facility] Address: [address] [place] [address] Performed By: #### 5 7021-8 ####HOOD LABORATORYCLIA [id number] [place] [address] [place] Monocytes (Bld) [#/Vol] 3.34 10*3/uL High <0.87 [facility] Comment on above: Order Comment: Speci men Type: BLOOD SPECIMENOrdering Facility: [facility] Address: [address] [place] [address] Performed By: #### 5 7021-8 ####HOOD LABORATORYCLIA [id number] [address] Monocytes/100 WBC (Bld) 18.0 % Normal [facility] Comment on above: Order Comment: Speci men Type: BLOOD SPECIMENOrdering Facility: [facility] Address: [address] [place] [address] Performed By: #### 5 7021-8 ####HOOD LABORATORYCLIA [id number] [place] [address] [place] MYELO% 1.0 % Normal [facility] Comment on above: Order Comment: Speci men Type: BLOOD SPECIMENOrdering Facility: [facility] Address: [address] [place] [address] Performed By: #### 5 7021-8 ####HOOD LABORATORYCLIA [id number] [place] [address] [place] Neutrophils (Bld) [#/Vol] 14.11 10*3/uL High 1.45-7.50 [facility] Comment on above: Order Comment: Speci men Type: BLOOD SPECIMENOrdering Facility: [facility] Address: [address] [place] [address] Performed By: #### 5 7021-8 ####HOOD LABORATORYCLIA [id number] [address] Neutrophils/100 WBC (Bld) 76.0 % Normal [facility] Comment on above: Order Comment: Speci men Type: BLOOD SPECIMENOrdering Facility: [facility] Address: [address] [place] [address] Performed By: #### 5 7021-8 ####HOOD LABORATORYCLIA [id number] [address] Nucleated RBC (Bld) [#/Vol] 10*3/uL Normal <0.01 [facility] Comment on above: Order Comment: Speci men Type: BLOOD SPECIMENOrdering Facility: [facility] Address: [address] [place] [address] Performed By: #### 5 7021-8 ####HOOD LABORATORYCLIA [id number] [address] Nucleated RBC/100 WBC (Bld) [Ratio] 0.0 /100 WBC Normal [facility] Comment on above: Order Comment: Speci men Type: BLOOD SPECIMENOrdering Facility: [facility] Address: [address] [place] [address] Performed By: #### 5 7021-8 ####HOOD LABORATORYCLIA [id number] [address] STATES [facility] Ovalocytes LM Ql (Bld) Few Normal [facility] Comment on above: Order Comment: Speci men Type: BLOOD SPECIMENOrdering Facility: [facility] Address: [address] [place] [address] Performed By: #### 5 7021-8 ####HOOD LABORATORYCLIA [id number] [address] Platelet mean volume (Bld) [Entitic vol] 11.3 fL Normal 9.0-12.7 [facility] Comment on above: Order Comment: Speci men Type: BLOOD SPECIMENOrdering Facility: [facility] Address: [address] [place] [address] Performed By: #### 5 7021-8 ####HOOD LABORATORYCLIA [id number] [address] Platelets (Bld) [#/Vol] 298 10*3/uL Normal 150-400 [facility] Comment on above: Order Comment: Speci men Type: BLOOD SPECIMENOrdering Facility: [facility] Address: [address] [place] [address] Performed By: #### 5 7021-8 ####HOOD LABORATORYCLIA [id number] [address] Platelets Estimate (Bld) [#/Vol] Adequate Normal [facility] Comment on above: Order Comment: Speci men Type: BLOOD SPECIMENOrdering Facility: [facility] Address: [address] [place] [address] Performed By: #### 5 7021-8 ####HOOD LABORATORYCLIA [id number] [address] OF [facility] RBC (Bld) [#/Vol] 3.85 10*6/uL Low 4.20-6.00 [facility] Comment on above: Order Comment: Speci men Type: BLOOD SPECIMENOrdering Facility: [facility] Address: [address] [place] [address] Performed By: #### 5 7021-8 ####HOOD LABORATORYCLIA [id number] [address] RBC FRAGMENTS Few Abnormal None Seen [facility] Comment on above: Order Comment: Speci men Type: BLOOD SPECIMENOrdering Facility: [facility] Address: [address] [place] [address] Performed By: #### 5 7021-8 ####HOOD LABORATORYCLIA [id number] [address] [place] Reviewed: see result s of individual morphologies Normal [facility] Comment on above: Order Comment: Speci men Type: BLOOD SPECIMENOrdering Facility: [facility] Address: [address] [place] [id number] Performed By: #### 5 7021-8 ####WESTON LABORATORYCLIA [id number] [place] [address] [place] WBC (Bld) [#/Vol] 18.57 10*3/uL High 3.70-11.00 [facility] Comment on above: Order Comment: Speci men Type: BLOOD SPECIMENOrdering Facility: [facility] Address: [address] [place] [address] Performed By: #### 5 7021-8 ####WESTON LABORATORYCLIA [id number] [address] [place] WBC Left Shift Ql (Bld) Present Normal [facility] Comment on above: Order Comment: Speci men Type: BLOOD SPECIMENOrdering Facility: [facility] Address: [address] [place] [address] Performed By: #### 5 7021-8 ####WESTON LABORATORYCLIA [id number] [address] [place] CONSULT PROGon 12-11-20[facility] Magnesium SerPl-mCncon 12-11 Magnesium [Mass/Vol] 1.9 mg/dL Normal 1.7-2.3 [facility] Comment on above: Order Comment: Speci men Type: BLOOD SPECIMENOrdering Facility: [facility] Address: [address] [place] [address] Performed By: #### 1 9123-9, 88483-4 ####WESTON LABORATORYCLIA [id number] [address] [place] THERAPY NTon 12-11-2024 THERAPY NT Normal [facility] Basic metabolic 2000 panelon 12-10-2024 Anion gap [Moles/Vol] 12 mmol/L Normal 8-15 [facility] Comment on above: Order Comment: Speci men Type: BLOOD SPECIMENOrdering Facility: [facility] Address: [address] [place] [address] Performed By: #### 2 4321-2, 2777, ####HOOD LABORATORYCLIA [id number] [place] [address] [place] Calcium [Mass/Vol] 8.9 mg/dL Normal 8.5-10.2 [facility] Comment on above: Order Comment: Speci men Type: BLOOD SPECIMENOrdering Facility: [facility] Address: [address] [place] [address] Performed By: #### 2 4321-2, 2776-02, ####HOOD LABORATORYCLIA [id number] [place] [address] [place] Chloride [Moles/Vol] 96 mmol/L Low 98-107 [facility] Comment on above: Order Comment: Speci men Type: BLOOD SPECIMENOrdering Facility: [facility] Address: [address] [place] [address] Performed By: #### 2 4321-2, 2776-02, ####HOOD LABORATORYCLIA [id number] [place] [address] [place] CO2 [Moles/Vol] 29 mmol/L Normal 22-30 [facility] Comment on above: Order Comment: Speci men Type: BLOOD SPECIMENOrdering Facility: [facility] Address: [address] [place] [address] Performed By: #### 2 4321-2, 2776-02, ####HOOD LABORATORYCLIA [id number] [place] [id number] [place] Creatinine [Mass/Vol] 0.63 mg/dL Low 0.73-1.22 [facility] Comment on above: Order Comment: Speci men Type: BLOOD SPECIMENOrdering Facility: [facility] Address: [address] [place], [place] [address] Performed By: #### 2 4321-2, 2776-02, ####HOOD LABORATORYCLIA [id number] [place] [address] [place] eGFRcr SerPlBld CKD-EPI 2020 96 mL/min/1.73m??? Normal >=60 [facility] Comment on above: Order Comment: Speci men Type: BLOOD SPECIMENOrdering Facility: [facility] Address: [address] [id number] Result Comment: Kimberlyn mated Glomerular Filtration Rate (eGFR) is calculated using the 2020 CKD-EPI creatinine equation. This equation utilizes serum creatinine, sex, and age as parameters. The creatinine assay has traceable calibration to isotope dilution-mass spectrometry. Refer to KDIGO guidelines for clinical interpretation. In patients with unstable renal function, e.g. those with acute kidney injury, the eGFR may not accurately reflect actual GFR. Performed By: #### 2 4321-2, 2777-, ####WESTON LABORATORYCLIA [id number] [place] [address] [place] Glucose [Mass/Vol] 119 mg/dL High 74-99 [facility] Comment on above: Order Comment: Yogi byrd Type: BLOOD SPECIMENOrdering Facility: [facility] Address: [address] [place] [address] Result Comment: The [place] [employer] (ADA) provides guidance for cutoff values for fasting glucose and random glucose. The ADA defines fasting as no caloric intake for at least 8 hours. Fasting plasma glucose results between 100 to 125 mg/dL indicate increased risk for diabetes (prediabetes).Fasting plasma glucose results greater than or equal to 126 mg/dL meet the criteria for diagnosis of diabetes. In the absence of unequivocal hyperglycemia, results should be confirmed by repeat testing. In a patient with classic symptoms of hyperglycemia or hyperglycemic crisis, random plasma glucose results greater than or equal to 200 mg/dL meet the criteria for diagnosis of diabetes.Reference: Standards of Medical Care in Diabetes 2016, [employer] Association. Diabetes Care. 2016.39(Suppl 1). Performed By: #### 2 4321-2, 2777-, ####WESTON LABORATORYCLIA [id number] [place] [address] [place] Potassium [Moles/Vol] 3.6 mmol/L Low 3.7-5.1 [facility] Comment on above: Order Comment: Yogi byrd Type: BLOOD SPECIMENOrdering Facility: [facility] Address: [address] [id number] Performed By: #### 2 4321-2, 2777-1, ####HOOD LABORATORYCLIA [id number] [place] [address] [place] Sodium [Moles/Vol] 137 mmol/L Normal 136-144 [facility] Comment on above: Order Comment: Speci men Type: BLOOD SPECIMENOrdering Facility: [facility] Address: [address] [place] [address] Performed By: #### 2 4321-2, 277-1, ####HOOD LABORATORYCLIA [id number] [place] [address] [place] Urea nitrogen [Mass/Vol] 25 mg/dL High 9-24 [facility] Comment on above: Order Comment: Speci men Type: BLOOD SPECIMENOrdering Facility: [facility] Address: [address] [place] [address] Performed By: #### 2 4321-2, 27708-12, ####WESTON LABORATORYCLIA [id number] [address] [place] CASE MANAGEMon 12-10-2024 CASE MANAGEM Normal [facility] CBC W Auto Differential pane l (Bld)on 12-10-2024 Anisocytosis Ql (Bld) Present Normal [facility] Comment on above: Order Comment: Speci men Type: BLOOD SPECIMENOrdering Facility: [facility] Address: [address] [place] [address] Performed By: #### 5 7021-8 ####WESTON LABORATORYCLIA [id number] [place] [address] [place] Basophils (Bld) [#/Vol] 0.00 10*3/uL Normal <0.11 [facility] Comment on above: Order Comment: Speci men Type: BLOOD SPECIMENOrdering Facility: [facility] Address: [address] [place] [address] Performed By: #### 5 7021-8 ####HOOD LABORATORYCLIA [id number] [address] [place] Basophils/100 WBC (Bld) 0.0 % Normal [facility] Comment on above: Order Comment: Speci men Type: BLOOD SPECIMENOrdering Facility: [facility] Address: [address] [place] [address] Performed By: #### 5 7021-8 ####HOOD LABORATORYCLIA [id number] [address] [place] Differential cell count method Nom (Bld) Manual Normal [facility] Comment on above: Order Comment: Speci men Type: BLOOD SPECIMENOrdering Facility: [facility] Address: [address] [place] [address] Performed By: #### 5 7021-8 ####HOOD LABORATORYCLIA [id number] [place] [address] [place] Eosinophils (Bld) [#/Vol] 0.00 10*3/uL Normal <0.46 [facility] Comment on above: Order Comment: Speci men Type: BLOOD SPECIMENOrdering Facility: [facility] Address: [address] [place] [address] Performed By: #### 5 7021-8 ####HOOD LABORATORYCLIA [id number] [address] [place] Eosinophils/100 WBC (Bld) 0.0 % Normal [facility] Comment on above: Order Comment: Speci men Type: BLOOD SPECIMENOrdering Facility: [facility] Address: [address] [place] [address] Performed By: #### 5 7021-8 ####HOOD LABORATORYCLIA [id number] [address] [place] Erythrocyte distribution width (RBC) [Ratio] 18.9 % High 11.5-15.0 [facility] Comment on above: Order Comment: Speci men Type: BLOOD SPECIMENOrdering Facility: [facility] Address: [address] [place] [address] Performed By: #### 5 7021-8 ####HOOD LABORATORYCLIA [id number] [address] [place] Hematocrit (Bld) [Volume fraction] 30.7 % Low 39.0-51.0 [facility] Comment on above: Order Comment: Speci men Type: BLOOD SPECIMENOrdering Facility: [facility] Address: [address] [place] [address] Performed By: #### 5 7021-8 ####HOOD LABORATORYCLIA [id number] [address] STATES [facility] Hemoglobin (Bld) [Mass/Vol] 9.6 g/dL Low 13.0-17.0 [facility] Comment on above: Order Comment: Speci men Type: BLOOD SPECIMENOrdering Facility: [facility] Address: [address] [place] [address] Performed By: #### 5 7021-8 ####HOOD LABORATORYCLIA [id number] [place] [address] [place] Lymphocytes (Bld) [#/Vol] 0.19 10*3/uL Low 1.00-4.00 [facility] Comment on above: Order Comment: Speci men Type: BLOOD SPECIMENOrdering Facility: [facility] Address: [address] [place] [address] Performed By: #### 5 7021-8 ####HOOD LABORATORYCLIA [id number] [address] STATES [facility] Lymphocytes/100 WBC (Bld) 1.0 % Normal [facility] Comment on above: Order Comment: Speci men Type: BLOOD SPECIMENOrdering Facility: [facility] Address: [address] [place] [address] Performed By: #### 5 7021-8 ####HOOD LABORATORYCLIA [id number] [address] [place] MCH (RBC) [Entitic mass] 24.9 pg Low 26.0-34.0 [facility] Comment on above: Order Comment: Speci men Type: BLOOD SPECIMENOrdering Facility: [facility] Address: [address] [place] [address] Performed By: #### 5 7021-8 ####HOOD LABORATORYCLIA [id number] [address] [place] MCHC (RBC) [Mass/Vol] 31.3 g/dL Normal 30.5-36.0 [facility] Comment on above: Order Comment: Speci men Type: BLOOD SPECIMENOrdering Facility: [facility] Address: [address] [place] [address] Performed By: #### 5 7021-8 ####HOOD LABORATORYCLIA [id number] [place] [address] [place] MCV (RBC) [Entitic vol] 79.5 fL Low 80.0-100.0 [facility] Comment on above: Order Comment: Speci men Type: BLOOD SPECIMENOrdering Facility: [facility] Address: [address] [place] [address] Performed By: #### 5 7021-8 ####HOOD LABORATORYCLIA [id number] [place] [address] [place] Monocytes (Bld) [#/Vol] 2.99 10*3/uL High <0.87 [facility] Comment on above: Order Comment: Speci men Type: BLOOD SPECIMENOrdering Facility: [facility] Address: [address] [place] [address] Performed By: #### 5 7021-8 ####HOOD LABORATORYCLIA [id number] [place] [address] [place] Monocytes/100 WBC (Bld) 16.0 % Normal [facility] Comment on above: Order Comment: Speci men Type: BLOOD SPECIMENOrdering Facility: [facility] Address: [address] [place] [address] Performed By: #### 5 7021-8 ####HOOD LABORATORYCLIA [id number] [place] [address] [place] Neutrophils (Bld) [#/Vol] 15.50 10*3/uL High 1.45-7.50 [facility] Comment on above: Order Comment: Speci men Type: BLOOD SPECIMENOrdering Facility: [facility] Address: [address] [place] [address] Performed By: #### 5 7021-8 ####HOOD LABORATORYCLIA [id number] [place] [address] [place] Neutrophils/100 WBC (Bld) 83.0 % Normal [facility] Comment on above: Order Comment: Speci men Type: BLOOD SPECIMENOrdering Facility: [facility] Address: [address] [place] [address] Performed By: #### 5 7021-8 ####HOOD LABORATORYCLIA [id number] [place] [address] [place] Nucleated RBC (Bld) [#/Vol] 10*3/uL Normal <0.01 [facility] Comment on above: Order Comment: Speci men Type: BLOOD SPECIMENOrdering Facility: [facility] Address: [address] [place] [address] Performed By: #### 5 7021-8 ####HOOD LABORATORYCLIA [id number] [place] [address] [place] Nucleated RBC/100 WBC (Bld) [Ratio] 0.0 /100 WBC Normal [facility] Comment on above: Order Comment: Speci men Type: BLOOD SPECIMENOrdering Facility: [facility] Address: [address] [place] [address] Performed By: #### 5 7021-8 ####HOOD LABORATORYCLIA [id number] [place] [address] [place] Platelet mean volume (Bld) [Entitic vol] 11.2 fL Normal 9.0-12.7 [facility] Comment on above: Order Comment: Speci men Type: BLOOD SPECIMENOrdering Facility: [facility] Address: [address] [place] [address] Performed By: #### 5 7021-8 ####HOOD LABORATORYCLIA [id number] [place] [address] [place] Platelets (Bld) [#/Vol] 288 10*3/uL Normal 150-400 [facility] Comment on above: Order Comment: Speci men Type: BLOOD SPECIMENOrdering Facility: [facility] Address: [address] [place] [address] Performed By: #### 5 7021-8 ####HOOD LABORATORYCLIA [id number] [place] [address] [place] Platelets Estimate (Bld) [#/Vol] Adequate Normal [facility] Comment on above: Order Comment: Speci men Type: BLOOD SPECIMENOrdering Facility: [facility] Address: [address] [place] [address] Performed By: #### 5 7021-8 ####HOOD LABORATORYCLIA [id number] [address] RBC (Bld) [#/Vol] 3.86 10*6/uL Low 4.20-6.00 [facility] Comment on above: Order Comment: Speci men Type: BLOOD SPECIMENOrdering Facility: [facility] Address: [address] [place] [address] Performed By: #### 5 7021-8 ####HOOD LABORATORYCLIA [id number] [address] [place]PH Reviewed: see result s of individual morphologies [facility] Comment on above: Order Comment: Speci men Type: BLOOD SPECIMENOrdering Facility: [facility] Address: [address] [place] [address] Performed By: #### 5 7021-8 ####HOOD LABORATORYCLIA [id number] [address] [place] WBC (Bld) [#/Vol] 18.67 10*3/uL High 3.70-11.00 [facility] Comment on above: Order Comment: Speci men Type: BLOOD SPECIMENOrdering Facility: [facility] Address: [address] [place] [address] Performed By: #### 5 7021-8 ####HOOD LABORATORYCLIA [id number] [address] CONSULT PROGon 12-10-2024 CONSULT PROG [facility] CONSULT PROG [facility] CONSULT PROG [facility] Magnesium SerPl-mCncon 12-10 Magnesium [Mass/Vol] 2.1 mg/dL Normal 1.7-2.3 [facility] Comment on above: Order Comment: Speci men Type: BLOOD SPECIMENOrdering Facility: [facility] Address: [address] [place] [address] Performed By: #### 2 4321-2, 2777-1, ####HOOD LABORATORYCLIA [id number] [place] [address] [place] Phosphate SerPl-mCncon 12-10 Phosphate [Mass/Vol] 2.7 mg/dL Normal 2.7-4.8 [facility] Comment on above: Order Comment: Speci men Type: BLOOD SPECIMENOrdering Facility: [facility] Address: [address] [place], [place] [address] [address] Performed By: #### 2 4321-2, 277-, ####WESTON LABORATORYCLIA [id number] [place] [address] [place] THERAPY NTon 12-10-2024 THERAPY NT Normal [facility] THERAPY NT Normal [facility] Basic metabolic 2000 panelon 12-09-2024 Anion gap [Moles/Vol] 11 mmol/L Normal 8-15 [facility] Comment on above: Order Comment: Speci men Type: BLOOD SPECIMENOrdering Facility: [facility] Address: [facility] [place] [id number] Performed By: #### 2 777-1, , ####HOOD LABORATORYCLIA [id number] [place] [address] [place] Calcium [Mass/Vol] 8.9 mg/dL Normal 8.5-10.2 [facility] Comment on above: Order Comment: Speci men Type: BLOOD SPECIMENOrdering Facility: [facility] Address: [facility] [place] [address] Performed By: #### 2 777-1, , 25446-6 ####HOOD LABORATORYCLIA [id number] [place] [address] [place] Chloride [Moles/Vol] 94 mmol/L Low 98-107 [facility] Comment on above: Order Comment: Speci men Type: BLOOD SPECIMENOrdering Facility: [facility] Address: [facility] [place] [id number] Performed By: #### 2 777-1, , 46959-1 ####HOOD LABORATORYCLIA [id number] [place] [id number] [place] CO2 [Moles/Vol] 30 mmol/L Normal 22-30 [facility] Comment on above: Order Comment: Yogi byrd Type: BLOOD SPECIMENOrdering Facility: [facility] Address: [address] [place] [address] Performed By: #### 2 777-1, , ####HOOD LABORATORYCLIA [id number] [place] [id number] [place] Creatinine [Mass/Vol] 0.68 mg/dL Low 0.73-1.22 [facility] Comment on above: Order Comment: Yogi byrd Type: BLOOD SPECIMENOrdering Facility: [facility] Address: [address] [place] [address] Performed By: #### 2 777-1, , ####HOOD LABORATORYCLIA [id number] [place] [address] [place] eGFRcr SerPlBld CKD-EPI 2020 93 mL/min/1.73m??? Normal >=60 [facility] Comment on above: Order Comment: Yogi byrd Type: BLOOD SPECIMENOrdering Facility: [facility] Address: [address] [place] [address] Result Comment: Kimberlyn mated Glomerular Filtration Rate (eGFR) is calculated using the 2020 CKD-EPI creatinine equation. This equation utilizes serum creatinine, sex, and age as parameters. The creatinine assay has traceable calibration to isotope dilution-mass spectrometry. Refer to KDIGO guidelines for clinical interpretation. In patients with unstable renal function, e.g. those with acute kidney injury, the eGFR may not accurately reflect actual GFR. Performed By: #### 2 777-1, , ####HOOD LABORATORYCLIA [id number] [place] [id number] [place] Glucose [Mass/Vol] 120 mg/dL High 74-99 [facility] Comment on above: Order Comment: Yogi byrd Type: BLOOD SPECIMENOrdering Facility: [facility] Address: [address] [place] [address] Result Comment: The [place] Diabetes [employer] (ADA) provides guidance for cutoff values for fasting glucose and random glucose. The ADA defines fasting as no caloric intake for at least 8 hours. Fasting plasma glucose results between 100 to 125 mg/dL indicate increased risk for diabetes (prediabetes).Fasting plasma glucose results greater than or equal to 126 mg/dL meet the criteria for diagnosis of diabetes. In the absence of unequivocal hyperglycemia, results should be confirmed by repeat testing. In a patient with classic symptoms of hyperglycemia or hyperglycemic crisis, random plasma glucose results greater than or equal to 200 mg/dL meet the criteria for diagnosis of diabetes.Reference: Standards of Medical Care in Diabetes 2016, [employer] Diabetes Association. Diabetes Care. 2016.39(Suppl 1). Performed By: #### 2 777-1, , ####HOOD LABORATORYCLIA [id number] [place] [address] [place] Potassium [Moles/Vol] 3.5 mmol/L Low 3.7-5.1 [facility] Comment on above: Order Comment: Yogi byrd Type: BLOOD SPECIMENOrdering Facility: [facility] Address: [address] [place] [id number] Performed By: #### 2 777-1, , ####HOOD LABORATORYCLIA [id number] [place] [address] [place] Sodium [Moles/Vol] 135 mmol/L Low 136-144 [facility] Comment on above: Order Comment: Yogi byrd Type: BLOOD SPECIMENOrdering Facility: [facility] Address: [address] [place] [id number] Performed By: #### 2 777-1, , ####HOOD LABORATORYCLIA [id number] [place] [address] [place] Urea nitrogen [Mass/Vol] 27 mg/dL High 9-24 [facility] Comment on above: Order Comment: Yogi byrd Type: BLOOD SPECIMENOrdering Facility: [facility] Address: [address] [place] [id number] Performed By: #### 2 777-1, , 84805-2 ####HOOD LABORATORYCLIA [id number] [place] [address] [place] CBC W Auto Differential pane l (Bld)on 12-09-2024 Acanthocytes LM Ql (Bld) Few Normal [facility] Comment on above: Order Comment: Speci men Type: BLOOD SPECIMENOrdering Facility: [facility] Address: [address] [place] [address] Performed By: #### 5 7021-8 ####HOOD LABORATORYCLIA [id number] [address] [place] Anisocytosis Ql (Bld) Present Normal [facility] Comment on above: Order Comment: Speci men Type: BLOOD SPECIMENOrdering Facility: [facility] Address: [address] [place] [address] Performed By: #### 5 7021-8 ####HOOD LABORATORYCLIA [id number] [address] [place] Basophils (Bld) [#/Vol] 0.00 10*3/uL Normal <0.11 [facility] Comment on above: Order Comment: Speci men Type: BLOOD SPECIMENOrdering Facility: [facility] Address: [address] [place] [address] Performed By: #### 5 7021-8 ####HOOD LABORATORYCLIA [id number] [address] Basophils/100 WBC (Bld) 0.0 % Normal [facility] Comment on above: Order Comment: Speci men Type: BLOOD SPECIMENOrdering Facility: [facility] Address: [address] [place] [address] Performed By: #### 5 7021-8 ####HOOD LABORATORYCLIA [id number] [address] [place] Differential cell count method Nom (Bld) Manual Normal [facility] Comment on above: Order Comment: Speci men Type: BLOOD SPECIMENOrdering Facility: [facility] Address: [address] [place] [address] Performed By: #### 5 7021-8 ####HOOD LABORATORYCLIA [id number] [place] [address] [place] Eosinophils (Bld) [#/Vol] 0.64 10*3/uL High <0.46 [facility] Comment on above: Order Comment: Speci men Type: BLOOD SPECIMENOrdering Facility: [facility] Address: [address] [place] [address] Performed By: #### 5 7021-8 ####HOOD LABORATORYCLIA [id number] [address] [place] Eosinophils/100 WBC (Bld) 3.0 % Normal [facility] Comment on above: Order Comment: Speci men Type: BLOOD SPECIMENOrdering Facility: [facility] Address: [address] [place] [address] Performed By: #### 5 7021-8 ####HOOD LABORATORYCLIA [id number] [address] [place] Erythrocyte distribution width (RBC) [Ratio] 18.8 % High 11.5-15.0 [facility] Comment on above: Order Comment: Speci men Type: BLOOD SPECIMENOrdering Facility: [facility] Address: [address] [place] [address] Performed By: #### 5 7021-8 ####HOOD LABORATORYCLIA [id number] [address] [place] Hematocrit (Bld) [Volume fraction] 30.7 % Low 39.0-51.0 [facility] Comment on above: Order Comment: Speci men Type: BLOOD SPECIMENOrdering Facility: [facility] Address: [address] [place] [address] Performed By: #### 5 7021-8 ####HOOD LABORATORYCLIA [id number] [address] [place] Hemoglobin (Bld) [Mass/Vol] 9.6 g/dL Low 13.0-17.0 [facility] Comment on above: Order Comment: Speci men Type: BLOOD SPECIMENOrdering Facility: [facility] Address: [address] [place] [address] Performed By: #### 5 7021-8 ####HOOD LABORATORYCLIA [id number] [address] [place] Lymphocytes (Bld) [#/Vol] 0.21 10*3/uL Low 1.00-4.00 [facility] Comment on above: Order Comment: Speci men Type: BLOOD SPECIMENOrdering Facility: [facility] Address: [address] [place] [address] Performed By: #### 5 7021-8 ####HOOD LABORATORYCLIA [id number] [address] Lymphocytes/100 WBC (Bld) 1.0 % Normal [facility] Comment on above: Order Comment: Speci men Type: BLOOD SPECIMENOrdering Facility: [facility] Address: [address] [place] [address] Performed By: #### 5 7021-8 ####HOOD LABORATORYCLIA [id number] [address] [place] MCH (RBC) [Entitic mass] 24.8 pg Low 26.0-34.0 [facility] Comment on above: Order Comment: Speci men Type: BLOOD SPECIMENOrdering Facility: [facility] Address: [address] [place] [address] Performed By: #### 5 7021-8 ####HOOD LABORATORYCLIA [id number] [address] [place] [facility] MCHC (RBC) [Mass/Vol] 31.3 g/dL Normal 30.5-36.0 [facility] Comment on above: Order Comment: Speci men Type: BLOOD SPECIMENOrdering Facility: [facility] Address: [address] [place] [address] Performed By: #### 5 7021-8 ####HOOD LABORATORYCLIA [id number] [address] MCV (RBC) [Entitic vol] 79.3 fL Low 80.0-100.0 [facility] Comment on above: Order Comment: Speci men Type: BLOOD SPECIMENOrdering Facility: [facility] Address: [address] [place] [address] Performed By: #### 5 7021-8 ####HOOD LABORATORYCLIA [id number] [place] [address] [place] Monocytes (Bld) [#/Vol] 1.70 10*3/uL High <0.87 [facility] Comment on above: Order Comment: Speci men Type: BLOOD SPECIMENOrdering Facility: [facility] Address: [address] [place] [address] Performed By: #### 5 7021-8 ####HOOD LABORATORYCLIA [id number] [place] [id number] [place] Monocytes/100 WBC (Bld) 8.0 % Normal [facility] Comment on above: Order Comment: Speci men Type: BLOOD SPECIMENOrdering Facility: [facility] Address: [address] [place] [address] Performed By: #### 5 7021-8 ####HOOD LABORATORYCLIA [id number] [place] [address] [place] Neutrophils (Bld) [#/Vol] 18.71 10*3/uL High 1.45-7.50 [facility] Comment on above: Order Comment: Speci men Type: BLOOD SPECIMENOrdering Facility: [facility] Address: [address] [place] [address] Performed By: #### 5 7021-8 ####HOOD LABORATORYCLIA [id number] [place] [id number] [place] Neutrophils/100 WBC (Bld) 88.0 % Normal [facility] Comment on above: Order Comment: Speci men Type: BLOOD SPECIMENOrdering Facility: [facility] Address: [address] [place] [address] Performed By: #### 5 7021-8 ####HOOD LABORATORYCLIA [id number] [place] [id number] [place] Nucleated RBC (Bld) [#/Vol] 10*3/uL Normal <0.01 [facility] Comment on above: Order Comment: Speci men Type: BLOOD SPECIMENOrdering Facility: [facility] Address: [address] [place] [address] Performed By: #### 5 7021-8 ####HOOD LABORATORYCLIA [id number] [place] [address] [place] Nucleated RBC/100 WBC (Bld) [Ratio] 0.0 /100 WBC Normal [facility] Comment on above: Order Comment: Speci men Type: BLOOD SPECIMENOrdering Facility: [facility] Address: [address] [place] [address] Performed By: #### 5 7021-8 ####HOOD LABORATORYCLIA [id number] [place] [address] [place] Ovalocytes LM Ql (Bld) Few Normal [facility] Comment on above: Order Comment: Speci men Type: BLOOD SPECIMENOrdering Facility: [facility] Address: [address] [place] [address] Performed By: #### 5 7021-8 ####HOOD LABORATORYCLIA [id number] [place] [address] [place] Platelet mean volume (Bld) [Entitic vol] 10.8 fL Normal 9.0-12.7 [facility] Comment on above: Order Comment: Speci men Type: BLOOD SPECIMENOrdering Facility: [facility] Address: [address] [place] [address] Performed By: #### 5 7021-8 ####HOOD LABORATORYCLIA [id number] [address] [place] Platelets (Bld) [#/Vol] 284 10*3/uL Normal 150-400 [facility] Comment on above: Order Comment: Speci men Type: BLOOD SPECIMENOrdering Facility: [facility] Address: [address] [place] [address] Performed By: #### 5 7021-8 ####HOOD LABORATORYCLIA [id number] [place] [address] [place] Platelets Estimate (Bld) [#/Vol] Adequate Normal [facility] Comment on above: Order Comment: Speci men Type: BLOOD SPECIMENOrdering Facility: [facility] Address: [address] [place] [address] Performed By: #### 5 7021-8 ####HOOD LABORATORYCLIA [id number] [place] [address] [place] RBC (Bld) [#/Vol] 3.87 10*6/uL Low 4.20-6.00 [facility] Comment on above: Order Comment: Speci men Type: BLOOD SPECIMENOrdering Facility: [facility] Address: [address] [place] [address] Performed By: #### 5 7021-8 ####[facility] LABORATORYCLIA [id number] [place] [address] [place] RED CE[place] MORPH Reviewed: see result s of individual morphologies [facility] Comment on above: Order Comment: Speci men Type: BLOOD SPECIMENOrdering Facility: [facility] Address: [address] [place] [address] Performed By: #### 5 7021-8 ####WESTON LABORATORYCLIA [id number] [place] [address] [place] WBC (Bld) [#/Vol] 21.26 10*3/uL High 3.70-11.00 [facility] Comment on above: Order Comment: Speci men Type: BLOOD SPECIMENOrdering Facility: SELECT [facility] Address: [address] [place] [address] Performed By: #### 5 7021-8 ####[facility] LABORATORYCLIA [id number] [address] [place] CONSULT PROGon 12-09-2024 CONSULT PROG Normal [facility] CONSULT PROG Normal [facility] Magnesium SerPl-mCncon 12-09 Magnesium [Mass/Vol] 2.0 mg/dL Normal 1.7-2.3 [facility] Comment on above: Order Comment: Speci men Type: BLOOD SPECIMENOrdering Facility: [facility] Address: [address] [place] [address] Performed By: #### 2 777-1, 44460-6, 85273-8 ####[facility] LABORATORYCLIA [id number] [place] [address] [place] Phosphate SerPl-mCncon 12-09 Phosphate [Mass/Vol] 2.6 mg/dL Low 2.7-4.8 [facility] Comment on above: Order Comment: Speci men Type: BLOOD SPECIMENOrdering Facility: [facility] Address: [address] [place] [address] Performed By: #### 2 777-1, 90586-7, 67829-5 ####[facility] LABORATORYCLIA [id number] [place] [address] [place] THERAPY NTon 12-09-2024 THERAPY NT Normal [facility] Basic metabolic 2000 panelon 12-08-2024 Anion gap [Moles/Vol] 10 mmol/L Normal 8-15 [facility] Comment on above: Order Comment: Speci men Type: BLOOD SPECIMENOrdering Facility: [facility] Address: [address] [place] [address] Performed By: #### 1 9123-9, 2777-1, 73037-3 ####[facility] LABORATORYCLIA [id number] [place] [address] [place] Calcium [Mass/Vol] 8.8 mg/dL Normal 8.5-10.2 [facility] Comment on above: Order Comment: Speci men Type: BLOOD SPECIMENOrdering Facility: [facility] Address: [address] [place] [address] Performed By: #### 1 9123-9, 2777-1, 10652-7 ####[facility]ST[facility] LABORATORYCLIA [id number] [place] [id number] [place] Chloride [Moles/Vol] 93 mmol/L Low 98-107 [facility] Comment on above: Order Comment: Speci men Type: BLOOD SPECIMENOrdering Facility: [facility] Address: [address] [place] [address] Performed By: #### 1 9123-9, 2777-1, 69319-8 ####[facility]STON LABORATORYCLIA [id number] [place] [address] [place] CO2 [Moles/Vol] 32 mmol/L High 22-30 [facility] Comment on above: Order Comment: Speci men Type: BLOOD SPECIMENOrdering Facility: [facility] Address: [address] [place] [address] Performed By: #### 1 9123-9, 2777-1, 85613-2 ####[facility] LABORATORYCLIA [id number] [place] [address] [place] Creatinine [Mass/Vol] 0.71 mg/dL Low 0.73-1.22 [facility] Comment on above: Order Comment: Yogi rochelle Type: BLOOD SPECIMENOrdering Facility: [facility] Address: [address] [place] [address] Performed By: #### 1 9123-9, 2777-1, 01661-3 ####[facility]ST[facility] LABORATORYCLIA [id number] [place] [address] [place] eGFRcr SerPlBld CKD-EPI 2020 92 mL/min/1.73m??? Normal >=60 [facility] Comment on above: Order Comment: Yogi rochelle Type: BLOOD SPECIMENOrdering Facility: [facility] Address: [address] [place] [address] Result Comment: Kimberlyn mated Glomerular Filtration Rate (eGFR) is calculated using the 2020 CKD-EPI creatinine equation. This equation utilizes serum creatinine, sex, and age as parameters. The creatinine assay has traceable calibration to isotope dilution-mass spectrometry. Refer to KDIGO guidelines for clinical interpretation. In patients with unstable renal function, e.g. those with acute kidney injury, the eGFR may not accurately reflect actual GFR. Performed By: #### 1 9123-9, 2777-, 89827-3 ####WESTON LABORATORYCLIA [id number] [place] [id number] [place] Glucose [Mass/Vol] 122 mg/dL High 74-99 [facility] Comment on above: Order Comment: Yogi byrd Type: BLOOD SPECIMENOrdering Facility: [facility] Address: [address] [place] [address] Result Comment: The [employer] Diabetes Association (ADA) provides guidance for cutoff values for fasting glucose and random glucose. The ADA defines fasting as no caloric intake for at least 8 hours. Fasting plasma glucose results between 100 to 125 mg/dL indicate increased risk for diabetes (prediabetes).Fasting plasma glucose results greater than or equal to 126 mg/dL meet the criteria for diagnosis of diabetes. In the absence of unequivocal hyperglycemia, results should be confirmed by repeat testing. In a patient with classic symptoms of hyperglycemia or hyperglycemic crisis, random plasma glucose results greater than or equal to 200 mg/dL meet the criteria for diagnosis of diabetes.Reference: Standards of Medical Care in Diabetes 2016, [employer] Diabetes Association. Diabetes Care. 2016.39(Suppl 1). Performed By: #### 1 9123-9, 2777-, 25295-5 ####[facility] LABORATORYCLIA [id number] [place] [address] [place] Potassium [Moles/Vol] 3.6 mmol/L Low 3.7-5.1 [facility] Comment on above: Order Comment: Yogi byrd Type: BLOOD SPECIMENOrdering Facility: [facility] Address: [address] [place] [address] Performed By: #### 1 9123-9, 27708-12, 74532-6 ####[facility] LABORATORYCLIA [id number] [place] [address] [place] Sodium [Moles/Vol] 135 mmol/L Low 136-144 [facility] Comment on above: Order Comment: Yogi byrd Type: BLOOD SPECIMENOrdering Facility: [facility] Address: [address] [place] [address] Performed By: #### 1 9123-9, 2777, 28581-7 ####[facility]ST[facility] LABORATORYCLIA [id number] [place] [address] [place] Urea nitrogen [Mass/Vol] 27 mg/dL High 9-24 [facility] Comment on above: Order Comment: Yogi byrd Type: BLOOD SPECIMENOrdering Facility: [facility] Address: [address] [place] [address] Performed By: #### 1 9123-9, 2777, 02562-4 ####[facility] LABORATORYCLIA [id number] [place] [address] [place] CASE MANAGEMon 12-08-2024 CASE MANAGEM Normal [facility] CASE MANAGEM [facility] CBC W Auto Differential pane l (Bld)on 12-08-2024 Acanthocytes LM Ql (Bld) Few Normal [facility] Comment on above: Order Comment: Speci men Type: BLOOD SPECIMENOrdering Facility: [facility] Address: [address] [place] [address] Performed By: #### 5 7021-8 ####HOOD LABORATORYCLIA [id number] [place] [address] [place] Anisocytosis Ql (Bld) Present Normal [facility] Comment on above: Order Comment: Speci men Type: BLOOD SPECIMENOrdering Facility: [facility] Address: [address] [place] [address] Performed By: #### 5 7021-8 ####HOOD LABORATORYCLIA [id number] [address] Basophils (Bld) [#/Vol] 0.00 10*3/uL Normal <0.11 [facility] Comment on above: Order Comment: Speci men Type: BLOOD SPECIMENOrdering Facility: [facility] Address: [address] [place] [address] Performed By: #### 5 7021-8 ####HOOD LABORATORYCLIA [id number] [address] [place] Basophils/100 WBC (Bld) 0.0 % Normal [facility] Comment on above: Order Comment: Speci men Type: BLOOD SPECIMENOrdering Facility: [facility] Address: [address] [place] [address] Performed By: #### 5 7021-8 ####HOOD LABORATORYCLIA [id number] [place] [address] [place] Differential cell count method Nom (Bld) Manual Normal [facility] Comment on above: Order Comment: Speci men Type: BLOOD SPECIMENOrdering Facility: [facility] Address: [address] [place] [address] Performed By: #### 5 7021-8 ####HOOD LABORATORYCLIA [id number] [place] [address] [place] Eosinophils (Bld) [#/Vol] 0.00 10*3/uL Normal <0.46 [facility] Comment on above: Order Comment: Speci men Type: BLOOD SPECIMENOrdering Facility: [facility] Address: [address] [place] [address] Performed By: #### 5 7021-8 ####HOOD LABORATORYCLIA [id number] [address] Eosinophils/100 WBC (Bld) 0.0 % Normal [facility] Comment on above: Order Comment: Speci men Type: BLOOD SPECIMENOrdering Facility: [facility] Address: [address] [place] [address] Performed By: #### 5 7021-8 ####HOOD LABORATORYCLIA [id number] [address] Erythrocyte distribution width (RBC) [Ratio] 19.2 % High 11.5-15.0 [facility] Comment on above: Order Comment: Speci men Type: BLOOD SPECIMENOrdering Facility: [facility] Address: [address] [place] [address] Performed By: #### 5 7021-8 ####HOOD LABORATORYCLIA [id number] [address] Hematocrit (Bld) [Volume fraction] 30.4 % Low 39.0-51.0 [facility] Comment on above: Order Comment: Speci men Type: BLOOD SPECIMENOrdering Facility: [facility] Address: [address] [place] [address] Performed By: #### 5 7021-8 ####HOOD LABORATORYCLIA [id number] [address] [place] Hemoglobin (Bld) [Mass/Vol] 9.4 g/dL Low 13.0-17.0 [facility] Comment on above: Order Comment: Speci men Type: BLOOD SPECIMENOrdering Facility: [facility] Address: [address] [place] [address] Performed By: #### 5 7021-8 ####HOOD LABORATORYCLIA [id number] [address] [place] Lymphocytes (Bld) [#/Vol] 0.67 10*3/uL Low 1.00-4.00 [facility] Comment on above: Order Comment: Speci men Type: BLOOD SPECIMENOrdering Facility: [facility] Address: [address] [place] [address] Performed By: #### 5 7021-8 ####HOOD LABORATORYCLIA [id number] [address] Lymphocytes/100 WBC (Bld) 3.0 % Normal [facility] Comment on above: Order Comment: Speci men Type: BLOOD SPECIMENOrdering Facility: [facility] Address: [address] [place] [address] Performed By: #### 5 7021-8 ####HOOD LABORATORYCLIA [id number] [address] MCH (RBC) [Entitic mass] 24.7 pg Low 26.0-34.0 [facility] Comment on above: Order Comment: Speci men Type: BLOOD SPECIMENOrdering Facility: [facility] Address: [address] [place] [address] Performed By: #### 5 7021-8 ####HOOD LABORATORYCLIA [id number] [address] MCHC (RBC) [Mass/Vol] 30.9 g/dL Normal 30.5-36.0 [facility] Comment on above: Order Comment: Speci men Type: BLOOD SPECIMENOrdering Facility: [facility] Address: [address] [place] [address] Performed By: #### 5 7021-8 ####HOOD LABORATORYCLIA [id number] [address] MCV (RBC) [Entitic vol] 80.0 fL Normal 80.0-100.0 [facility] Comment on above: Order Comment: Speci men Type: BLOOD SPECIMENOrdering Facility: [facility] Address: [address] [place] [address] Performed By: #### 5 7021-8 ####HOOD LABORATORYCLIA [id number] [place] [address] [place] Monocytes (Bld) [#/Vol] 5.83 10*3/uL High <0.87 [facility] Comment on above: Order Comment: Speci men Type: BLOOD SPECIMENOrdering Facility: [facility] Address: [address] [place] [address] Performed By: #### 5 7021-8 ####HOOD LABORATORYCLIA [id number] [address] [place] Monocytes/100 WBC (Bld) 26.0 % Normal [facility] Comment on above: Order Comment: Speci men Type: BLOOD SPECIMENOrdering Facility: [facility] Address: [address] [place] [address] Performed By: #### 5 7021-8 ####HOOD LABORATORYCLIA [id number] [address] [place] MYELO% 2.0 % Normal [facility] Comment on above: Order Comment: Speci men Type: BLOOD SPECIMENOrdering Facility: [facility] Address: [address] [place] [address] Performed By: #### 5 7021-8 ####HOOD LABORATORYCLIA [id number] [address] [place] Neutrophils (Bld) [#/Vol] 15.48 10*3/uL High 1.45-7.50 [facility] Comment on above: Order Comment: Speci men Type: BLOOD SPECIMENOrdering Facility: [facility] Address: [address] [place] [address] Performed By: #### 5 7021-8 ####HOOD LABORATORYCLIA [id number] [address] [place] Neutrophils/100 WBC (Bld) 69.0 % Normal [facility] Comment on above: Order Comment: Speci men Type: BLOOD SPECIMENOrdering Facility: [facility] Address: [address] [place] [address] Performed By: #### 5 7021-8 ####HOOD LABORATORYCLIA [id number] [place] [address] [place] Nucleated RBC (Bld) [#/Vol] 0.22 10*3/uL High <0.01 [facility] Comment on above: Order Comment: Speci men Type: BLOOD SPECIMENOrdering Facility: [facility] Address: [address] [place] [address] Performed By: #### 5 7021-8 ####HOOD LABORATORYCLIA [id number] [address] [place] Nucleated RBC/100 WBC (Bld) [Ratio] 1.0 /100 WBC Normal [facility] Comment on above: Order Comment: Speci men Type: BLOOD SPECIMENOrdering Facility: [facility] Address: [address] [place] [address] Performed By: #### 5 7021-8 ####HOOD LABORATORYCLIA [id number] [place] [address] [place] Ovalocytes LM Ql (Bld) Few Normal [facility] Comment on above: Order Comment: Speci men Type: BLOOD SPECIMENOrdering Facility: [facility] Address: [address] [place] [address] Performed By: #### 5 7021-8 ####HOOD LABORATORYCLIA [id number] [address] [place] Platelet mean volume (Bld) [Entitic vol] 10.9 fL Normal 9.0-12.7 [facility] Comment on above: Order Comment: Speci men Type: BLOOD SPECIMENOrdering Facility: [facility] Address: [address] [place] [address] Performed By: #### 5 7021-8 ####HOOD LABORATORYCLIA [id number] [place] [address] [place] Platelets (Bld) [#/Vol] 285 10*3/uL Normal 150-400 [facility] Comment on above: Order Comment: Speci men Type: BLOOD SPECIMENOrdering Facility: [facility] Address: [address] [place] [address] Performed By: #### 5 7021-8 ####HOOD LABORATORYCLIA [id number] [place] [address] [facility] PAT Platelets Estimate (Bld) [#/Vol] Adequate Normal [facility] Comment on above: Order Comment: Speci men Type: BLOOD SPECIMENOrdering Facility: [facility] Address: [address] [place] [address] Performed By: #### 5 7021-8 ####HOOD LABORATORYCLIA [id number] [place] [address] [place] RBC (Bld) [#/Vol] 3.80 10*6/uL Low 4.20-6.00 [facility] Comment on above: Order Comment: Speci men Type: BLOOD SPECIMENOrdering Facility: [facility] Address: [address] [place] [address] Performed By: #### 5 7021-8 ####HOOD LABORATORYCLIA [id number] [address] RED CELL MORPH Reviewed: see result s of individual morphologies Normal [facility] Comment on above: Order Comment: Speci men Type: BLOOD SPECIMENOrdering Facility: [facility] Address: [address] [place] [address] Performed By: #### 5 7021-8 ####HOOD LABORATORYCLIA [id number] [place] [address] [place] WBC (Bld) [#/Vol] 22.44 10*3/uL High 3.70-11.00 [facility] Comment on above: Order Comment: Speci men Type: BLOOD SPECIMENOrdering Facility: [facility] Address: [address] [place] [address] Performed By: #### 5 7021-8 ####HOOD LABORATORYCLIA [id number] [place] [address] [place] WBC Left Shift Ql (Bld) Present [facility] Comment on above: Order Comment: Speci men Type: BLOOD SPECIMENOrdering Facility: [facility] Address: [address] [place] [address] Performed By: #### 5 7021-8 ####HOOD LABORATORYCLIA [id number] [address] [place] CONSULT PROGon 12-08-2024 CONSULT PROG Normal [facility] CONSULT PROG Normal [facility] CONSULT PROG [facility] Magnesium [Mass/Vol] 2.0 mg/dL Normal 1.7-2.3 [facility] Comment on above: Order Comment: Speci men Type: BLOOD SPECIMENOrdering Facility: [facility] Address: [address] [place] [address] Performed By: #### 1 9123-9, 2777-1, 87404-3 ####WEST[facility] LABORATORYCLIA [id number] [place] [address] [place] NUTRITIONon 12-08-2024 NUTRITION Normal [facility] Phosphate SerPl-ncon 12-08 Phosphate [Mass/Vol] 3.5 mg/dL Normal 2.7-4.8 [facility] Comment on above: Order Comment: Speci men Type: BLOOD SPECIMENOrdering Facility: [facility] Address: [address] [place], [place] [address] Performed By: #### 1 9123-9, 2777-1, 72362-6 ####WESTON LABORATORYCLIA [id number] [place] [id number] [place] THERAPY NTon 12-08-2024 THERAPY NT Normal [facility] Basic metabolic 2000 panelon 12-07-2024 Anion gap [Moles/Vol] 11 mmol/L Normal 8-15 [facility] Comment on above: Order Comment: Speci men Type: BLOOD SPECIMENOrdering Facility: [facility] Address: [address] [place] [address] Performed By: #### 1 9123-9, 2777-1, 44024-3 ####WESTON LABORATORYCLIA [id number] [place] [address] [place] Calcium [Mass/Vol] 9.0 mg/dL Normal 8.5-10.2 [facility] Comment on above: Order Comment: Speci men Type: BLOOD SPECIMENOrdering Facility: [facility] Address: [address] [place], [place] [address] Performed By: #### 1 9123-9, 2777-1, 99759-6 ####HOOD LABORATORYCLIA [id number] [place] [address] [place] Chloride [Moles/Vol] 96 mmol/L Low 98-107 [facility] Comment on above: Order Comment: Speci men Type: BLOOD SPECIMENOrdering Facility: [facility] Address: [address] [place] [address] Performed By: #### 1 9123-9, 2777-1, 82868-4 ####HOOD LABORATORYCLIA [id number] [place] [address] [place] CO2 [Moles/Vol] 28 mmol/L Normal 22-30 [facility] Comment on above: Order Comment: Speci men Type: BLOOD SPECIMENOrdering Facility: [facility] Address: [address] [place] [address] Performed By: #### 1 9123-9, 2777-1, 04359-6 ####WESTON LABORATORYCLIA [id number] [place] [address] [place] Creatinine [Mass/Vol] 0.70 mg/dL Low 0.73-1.22 [facility] Comment on above: Order Comment: Speci men Type: BLOOD SPECIMENOrdering Facility: [facility] Address: [address] [place] [address] Performed By: #### 1 9123-9, 2777-1, 43937-4 ####WESTON LABORATORYCLIA [id number] [place] [address] [place] eGFRcr SerPlBld CKD-EPI 2020 93 mL/min/1.73m??? Normal >=60 [facility] Comment on above: Order Comment: Speci men Type: BLOOD SPECIMENOrdering Facility: [facility] Address: [address] [place] [address] Result Comment: Kimberlyn mated Glomerular Filtration Rate (eGFR) is calculated using the 2020 CKD-EPI creatinine equation. This equation utilizes serum creatinine, sex, and age as parameters. The creatinine assay has traceable calibration to isotope dilution-mass spectrometry. Refer to KDIGO guidelines for clinical interpretation. In patients with unstable renal function, e.g. those with acute kidney injury, the eGFR may not accurately reflect actual GFR. Performed By: #### 1 9123-9, 2777-, 59212-9 ####WESTON LABORATORYCLIA [id number] [place] [address] [place] Glucose [Mass/Vol] 133 mg/dL High 74-99 [facility] Comment on above: Order Comment: Yogi rochelle Type: BLOOD SPECIMENOrdering Facility: [facility] Address: [address] [place] [address] Result Comment: The [place] Diabetes [employer] (ADA) provides guidance for cutoff values for fasting glucose and random glucose. The ADA defines fasting as no caloric intake for at least 8 hours. Fasting plasma glucose results between 100 to 125 mg/dL indicate increased risk for diabetes (prediabetes).Fasting plasma glucose results greater than or equal to 126 mg/dL meet the criteria for diagnosis of diabetes. In the absence of unequivocal hyperglycemia, results should be confirmed by repeat testing. In a patient with classic symptoms of hyperglycemia or hyperglycemic crisis, random plasma glucose results greater than or equal to 200 mg/dL meet the criteria for diagnosis of diabetes.Reference: Standards of Medical Care in Diabetes 2016, [employer]. Diabetes Care. 2016.39(Suppl 1). Performed By: #### 1 9123-9, 2777, 70790-5 ####WESTON LABORATORYCLIA [id number] [place] [address] [place] Potassium [Moles/Vol] 3.4 mmol/L Low 3.7-5.1 [facility] Comment on above: Order Comment: Yogi rochelle Type: BLOOD SPECIMENOrdering Facility: [facility] Address: [address] [place] [address] Performed By: #### 1 9123-9, 2777, 52804-5 ####WESTON LABORATORYCLIA [id number] [place] [id number] [place] Sodium [Moles/Vol] 135 mmol/L Low 136-144 [facility] Comment on above: Order Comment: Yogi men Type: BLOOD SPECIMENOrdering Facility: [facility] Address: [address] [place], [place] [address] Performed By: #### 1 9123-9, 2777-1, 00226-4 ####HOOD LABORATORYCLIA [id number] [place] [address] [place] Urea nitrogen [Mass/Vol] 21 mg/dL Normal 9- [facility] Comment on above: Order Comment: Speci men Type: BLOOD SPECIMENOrdering Facility: [facility] Address: [address] [place] [address] Performed By: #### 1 9123-9, 2777-1, 00566-8 ####HOOD LABORATORYCLIA [id number] [place] [address] [place] CBC W Auto Differential pane l (Bld)on 12-07-2024 Anisocytosis Ql (Bld) Present Normal [facility] Comment on above: Order Comment: Speci men Type: BLOOD SPECIMENOrdering Facility: [facility] Address: [address] [place] [address] Performed By: #### 5 7021-8 ####HOOD LABORATORYCLIA [id number] [place] [address] [place] Basophils (Bld) [#/Vol] 0.00 10*3/uL Normal <0.11 [facility] Comment on above: Order Comment: Speci men Type: BLOOD SPECIMENOrdering Facility: [facility] Address: [address] [place] [address] Performed By: #### 5 7021-8 ####HOOD LABORATORYCLIA [id number] [address] STATES [facility] Basophils/100 WBC (Bld) 0.0 % Normal [facility] Comment on above: Order Comment: Speci men Type: BLOOD SPECIMENOrdering Facility: [facility] Address: [address] [place] [address] Performed By: #### 5 7021-8 ####HOOD LABORATORYCLIA [id number] [place] [address] [place] Differential cell count method Nom (Bld) Manual Normal [facility] Comment on above: Order Comment: Speci men Type: BLOOD SPECIMENOrdering Facility: [facility] Address: [address] [place] [address] Performed By: #### 5 7021-8 ####HOOD LABORATORYCLIA [id number] [place] [address] [place] Eosinophils (Bld) [#/Vol] 0.00 10*3/uL Normal <0.46 [facility] Comment on above: Order Comment: Speci men Type: BLOOD SPECIMENOrdering Facility: [facility] Address: [address] [place] [address] Performed By: #### 5 7021-8 ####HOOD LABORATORYCLIA [id number] [address] Eosinophils/100 WBC (Bld) 0.0 % Normal [facility] Comment on above: Order Comment: Speci men Type: BLOOD SPECIMENOrdering Facility: [facility] Address: [address] [place] [address] Performed By: #### 5 7021-8 ####HOOD LABORATORYCLIA [id number] [address] [place] Erythrocyte distribution width (RBC) [Ratio] 19.0 % High 11.5-15.0 [facility] Comment on above: Order Comment: Speci men Type: BLOOD SPECIMENOrdering Facility: [facility] Address: [address] [place] [address] Performed By: #### 5 7021-8 ####HOOD LABORATORYCLIA [id number] [address] Hematocrit (Bld) [Volume fraction] 29.6 % Low 39.0-51.0 [facility] Comment on above: Order Comment: Speci men Type: BLOOD SPECIMENOrdering Facility: [facility] Address: [address] [place] [address] Performed By: #### 5 7021-8 ####HOOD LABORATORYCLIA [id number] [address] Hemoglobin (Bld) [Mass/Vol] 9.4 g/dL Low 13.0-17.0 [facility] Comment on above: Order Comment: Speci men Type: BLOOD SPECIMENOrdering Facility: [facility] Address: [address] [place] [address] Performed By: #### 5 7021-8 ####HOOD LABORATORYCLIA [id number] [address] Lymphocytes (Bld) [#/Vol] 0.57 10*3/uL Low 1.00-4.00 [facility] Comment on above: Order Comment: Speci men Type: BLOOD SPECIMENOrdering Facility: [facility] Address: [address] [place] [address] Performed By: #### 5 7021-8 ####HOOD LABORATORYCLIA [id number] [address] Lymphocytes/100 WBC (Bld) 2.0 % Normal [facility] Comment on above: Order Comment: Speci men Type: BLOOD SPECIMENOrdering Facility: [facility] Address: [address] [place] [address] Performed By: #### 5 7021-8 ####HOOD LABORATORYCLIA [id number] [address] STATES [facility] MCH (RBC) [Entitic mass] 24.8 pg Low 26.0-34.0 [facility] Comment on above: Order Comment: Speci men Type: BLOOD SPECIMENOrdering Facility: [facility] Address: [address] [place] [address] Performed By: #### 5 7021-8 ####HOOD LABORATORYCLIA [id number] [address] MCHC (RBC) [Mass/Vol] 31.8 g/dL Normal 30.5-36.0 [facility] Comment on above: Order Comment: Speci men Type: BLOOD SPECIMENOrdering Facility: [facility] Address: [address] [place] [address] Performed By: #### 5 7021-8 ####HOOD LABORATORYCLIA [id number] [address] MCV (RBC) [Entitic vol] 78.1 fL Low 80.0-100.0 [facility] Comment on above: Order Comment: Speci men Type: BLOOD SPECIMENOrdering Facility: [facility] Address: [address] [place] [address] Performed By: #### 5 7021-8 ####HOOD LABORATORYCLIA [id number] [place] [address] [place] Monocytes (Bld) [#/Vol] 6.22 10*3/uL High <0.87 [facility] Comment on above: Order Comment: Speci men Type: BLOOD SPECIMENOrdering Facility: [facility] Address: [address] [place] [address] Performed By: #### 5 7021-8 ####HOOD LABORATORYCLIA [id number] [place] [address] [place] Monocytes/100 WBC (Bld) 22.0 % Normal [facility] Comment on above: Order Comment: Speci men Type: BLOOD SPECIMENOrdering Facility: [facility] Address: [address] [place] [address] Performed By: #### 5 7021-8 ####HOOD LABORATORYCLIA [id number] [place] [address] [place] Neutrophils (Bld) [#/Vol] 21.49 10*3/uL High 1.45-7.50 [facility] Comment on above: Order Comment: Speci men Type: BLOOD SPECIMENOrdering Facility: [facility] Address: [address] [place] [address] Performed By: #### 5 7021-8 ####HOOD LABORATORYCLIA [id number] [address] [place] Neutrophils/100 WBC (Bld) 76.0 % Normal [facility] Comment on above: Order Comment: Speci men Type: BLOOD SPECIMENOrdering Facility: [facility] Address: [address] [place] [address] Performed By: #### 5 7021-8 ####HOOD LABORATORYCLIA [id number] [place] [address] [place] Nucleated RBC (Bld) [#/Vol] 10*3/uL Normal <0.01 [facility] Comment on above: Order Comment: Speci men Type: BLOOD SPECIMENOrdering Facility: [facility] Address: [address] [place] [address] Performed By: #### 5 7021-8 ####HOOD LABORATORYCLIA [id number] [address] [place] Nucleated RBC/100 WBC (Bld) [Ratio] 0.0 /100 WBC Normal [facility] Comment on above: Order Comment: Speci men Type: BLOOD SPECIMENOrdering Facility: [facility] Address: [address] [place] [address] Performed By: #### 5 7021-8 ####HOOD LABORATORYCLIA [id number] [place] [address] [place] Ovalocytes LM Ql (Bld) Few Normal [facility] Comment on above: Order Comment: Speci men Type: BLOOD SPECIMENOrdering Facility: [facility] Address: [address] [place] [address] Performed By: #### 5 7021-8 ####HOOD LABORATORYCLIA [id number] [place] [address] [place] Platelet mean volume (Bld) [Entitic vol] 10.9 fL Normal 9.0-12.7 [facility] Comment on above: Order Comment: Speci men Type: BLOOD SPECIMENOrdering Facility: [facility] Address: [address] [place] [address] Performed By: #### 5 7021-8 ####HOOD LABORATORYCLIA [id number] [place] [address] [place] Platelets (Bld) [#/Vol] 277 10*3/uL Normal 150-400 [facility] Comment on above: Order Comment: Speci men Type: BLOOD SPECIMENOrdering Facility: [facility] Address: [address] [place] [address] Performed By: #### 5 7021-8 ####HOOD LABORATORYCLIA [id number] [place] [address] [place] [employer] OF [place] Platelets Estimate (Bld) [#/Vol] Adequate Normal [facility] Comment on above: Order Comment: Speci men Type: BLOOD SPECIMENOrdering Facility: [facility] Address: [address] [place], [place] [address] Performed By: #### 5 7021-8 ####[place]ST[place] LABORATORYCLIA [id number] [address] RBC (Bld) [#/Vol] 3.79 10*6/uL Low 4.20-6.00 [facility] Comment on above: Order Comment: Speci men Type: BLOOD SPECIMENOrdering Facility: [facility] Address: [address] [place] [address] Performed By: #### 5 7021-8 ####HOOD LABORATORYCLIA [id number] [address] [place] MORPH Reviewed: see result s of individual morphologies [facility] Comment on above: Order Comment: Speci men Type: BLOOD SPECIMENOrdering Facility: [facility] Address: [address] [place] [address] Performed By: #### 5 7021-8 ####WEST[place] LABORATORYCLIA [id number] [address] OF [facility] WBC (Bld) [#/Vol] 28.27 10*3/uL High 3.70-11.00 [facility] Comment on above: Order Comment: Speci men Type: BLOOD SPECIMENOrdering Facility: [facility] Address: [address] [place] [address] Performed By: #### 5 7021-8 ####[place]ST[facility] LABORATORYCLIA [id number] [address] OF [place] CONSULT PROGon 12-07-2024 CONSULT PROG [facility] Magnesium SerPl-mCncon 12-07 Magnesium [Mass/Vol] 2.0 mg/dL Normal 1.7-2.3 [facility] Comment on above: Order Comment: Speci men Type: BLOOD SPECIMENOrdering Facility: [facility] Address: [address] [place] [address] Performed By: #### 1 9123-9, 2777-1, 67567-1 ####WESTON LABORATORYCLIA [id number] [address] Phosphate SerPl-mCncon 12-07 Phosphate [Mass/Vol] 3.0 mg/dL Normal 2.7-4.8 [facility] Comment on above: Order Comment: Speci men Type: BLOOD SPECIMENOrdering Facility: [facility] Address: [address] [place], [place] [address] Performed By: #### 1 9123-9, 2777-1, 85831-5 ####WEST[facility] LABORATORYCLIA [id number] [place] [address] [place] Vancomycin [place] SerPl-mCncon 12-07-2024 Vancomycin random [Mass/Vol] 12.3 ug/mL Normal 10.0-20.0 [facility] Comment on above: Order Comment: Speci men Type: BLOOD SPECIMENOrdering Facility: [facility] Address: [address] [place] [address] Result Comment: Refe rence ranges and high/low indicator flags are provided as general guidelines only. The treating physician must determine appropriate target levels/dosing based on the specific clinical situation. Performed By: #### 4 091-5 ####WESTON LABORATORYCLIA [id number] [place] [address] [place] Basic metabolic 2000 panelon 12-06-2024 Anion gap [Moles/Vol] 11 mmol/L Normal 8-15 [facility] Comment on above: Order Comment: Speci men Type: BLOOD SPECIMENOrdering Facility: [facility] Address: [address] [place], [place] [address] Performed By: #### 2 4321-2, 2776-, ####WESTON LABORATORYCLIA [id number] [place] [address] [place] Calcium [Mass/Vol] 9.1 mg/dL Normal 8.5-10.2 [facility] Comment on above: Order Comment: Speci men Type: BLOOD SPECIMENOrdering Facility: [facility] Address: [address] [place] [address] Performed By: #### 2 4321-2, 2777-1, ####WEST[facility] LABORATORYCLIA [id number] [place] [address] [place] Chloride [Moles/Vol] 96 mmol/L Low 98-107 [facility] Comment on above: Order Comment: Yogi byrd Type: BLOOD SPECIMENOrdering Facility: [facility] Address: [address] [place] [address] Performed By: #### 2 4321-2, 2776-02, ####WEST[facility] LABORATORYCLIA [id number] [place] [address] [place] CO2 [Moles/Vol] 24 mmol/L Normal 22-30 [facility] Comment on above: Order Comment: Yogi byrd Type: BLOOD SPECIMENOrdering Facility: [facility] Address: [address] [place] [address] Performed By: #### 2 4321-2, 2776-02, ####WEST[facility] LABORATORYCLIA [id number] [place] [address] [place] Creatinine [Mass/Vol] 0.64 mg/dL Low 0.73-1.22 [facility] Comment on above: Order Comment: Yogi byrd Type: BLOOD SPECIMENOrdering Facility: [facility] Address: [address] [place] [address] Performed By: #### 2 4321-2, 2776-02, ####WESTON LABORATORYCLIA [id number] [address] [place] eGFRcr SerPlBld CKD-EPI 2020 95 mL/min/1.73m??? Normal >=60 [facility] Comment on above: Order Comment: Yogi byrd Type: BLOOD SPECIMENOrdering Facility: [facility] Address: [address] [place] [address] Result Comment: Kimberlyn mated Glomerular Filtration Rate (eGFR) is calculated using the 2020 CKD-EPI creatinine equation. This equation utilizes serum creatinine, sex, and age as parameters. The creatinine assay has traceable calibration to isotope dilution-mass spectrometry. Refer to KDIGO guidelines for clinical interpretation. In patients with unstable renal function, e.g. those with acute kidney injury, the eGFR may not accurately reflect actual GFR. Performed By: #### 2 4321-2, 277-1, ####WEST[facility] LABORATORYCLIA [id number] [place] [address] [place] Glucose [Mass/Vol] 135 mg/dL High 74-99 [facility] Comment on above: Order Comment: Yogi men Type: BLOOD SPECIMENOrdering Facility: [facility] Address: [address] [place], [place] [address] Result Comment: The [place] Diabetes Association (ADA) provides guidance for cutoff values for fasting glucose and random glucose. The ADA defines fasting as no caloric intake for at least 8 hours. Fasting plasma glucose results between 100 to 125 mg/dL indicate increased risk for diabetes (prediabetes).Fasting plasma glucose results greater than or equal to 126 mg/dL meet the criteria for diagnosis of diabetes. In the absence of unequivocal hyperglycemia, results should be confirmed by repeat testing. In a patient with classic symptoms of hyperglycemia or hyperglycemic crisis, random plasma glucose results greater than or equal to 200 mg/dL meet the criteria for diagnosis of diabetes.Reference: Standards of Medical Care in Diabetes 2016, [employer] Diabetes Association. Diabetes Care. 2016.39(Suppl 1). Performed By: #### 2 4321-2, 2776-02, ####HOOD LABORATORYCLIA [id number] [place] [id number] [place] Potassium [Moles/Vol] 4.0 mmol/L Normal 3.7-5.1 [facility] Comment on above: Order Comment: Yogi byrd Type: BLOOD SPECIMENOrdering Facility: [facility] Address: [address] [place] [address] Performed By: #### 2 4321-2, 2776-02, ####[facility] LABORATORYCLIA [id number] [place] [address] [place] Sodium [Moles/Vol] 131 mmol/L Low 136-144 [facility] Comment on above: Order Comment: Yogi men Type: BLOOD SPECIMENOrdering Facility: [facility] Address: [address] [place] [address] Performed By: #### 2 4321-2, 27708-12, ####HOOD LABORATORYCLIA [id number] [place] [address] [place] [facility] Urea nitrogen [Mass/Vol] 20 mg/dL Normal 9-24 [facility] Comment on above: Order Comment: Speci men Type: BLOOD SPECIMENOrdering Facility: [facility] Address: [address] [place] [address] Performed By: #### 2 4321-2, 2777-1, 91709-3 ####HOOD LABORATORYCLIA [id number] [place] [address] [place] CBC W Auto Differential pane l (Bld)on 12-06-2024 Anisocytosis Ql (Bld) Present Normal [facility] Comment on above: Order Comment: Speci men Type: BLOOD SPECIMENOrdering Facility: [facility] Address: [address] [place] [address] Performed By: #### 5 7021-8 ####HOOD LABORATORYCLIA [id number] [address] [place] Basophils (Bld) [#/Vol] 0.00 10*3/uL Normal <0.11 [facility] Comment on above: Order Comment: Speci men Type: BLOOD SPECIMENOrdering Facility: [facility] Address: [address] [place] [address] Performed By: #### 5 7021-8 ####HOOD LABORATORYCLIA [id number] [address] Basophils/100 WBC (Bld) 0.0 % Normal [facility] Comment on above: Order Comment: Speci men Type: BLOOD SPECIMENOrdering Facility: [facility] Address: [address] [place] [address] Performed By: #### 5 7021-8 ####HOOD LABORATORYCLIA [id number] [place] [address] [place] Differential cell count method Nom (Bld) Manual Normal [facility] Comment on above: Order Comment: Speci men Type: BLOOD SPECIMENOrdering Facility: [facility] Address: [address] [place] [address] Performed By: #### 5 7021-8 ####HOOD LABORATORYCLIA [id number] [address] OF [place] Eosinophils (Bld) [#/Vol] 0.33 10*3/uL Normal <0.46 [facility] Comment on above: Order Comment: Speci men Type: BLOOD SPECIMENOrdering Facility: [facility] Address: [address] [place] [address] Performed By: #### 5 7021-8 ####HOOD LABORATORYCLIA [id number] [address] [place] Eosinophils/100 WBC (Bld) 1.0 % Normal [facility] Comment on above: Order Comment: Speci men Type: BLOOD SPECIMENOrdering Facility: [facility] Address: [address] [place] [address] Performed By: #### 5 7021-8 ####HOOD LABORATORYCLIA [id number] [address] [place] Erythrocyte distribution width (RBC) [Ratio] 19.1 % High 11.5-15.0 [facility] Comment on above: Order Comment: Speci men Type: BLOOD SPECIMENOrdering Facility: [facility] Address: [address] [place] [address] Performed By: #### 5 7021-8 ####HOOD LABORATORYCLIA [id number] [address] Hematocrit (Bld) [Volume fraction] 27.7 % Low 39.0-51.0 [facility] Comment on above: Order Comment: Speci men Type: BLOOD SPECIMENOrdering Facility: [facility] Address: [address] [place] [address] Performed By: #### 5 7021-8 ####HOOD LABORATORYCLIA [id number] [address] Hemoglobin (Bld) [Mass/Vol] 8.8 g/dL Low 13.0-17.0 [facility] Comment on above: Order Comment: Speci men Type: BLOOD SPECIMENOrdering Facility: [facility] Address: [address] [place] [address] Performed By: #### 5 7021-8 ####HOOD LABORATORYCLIA [id number] [address] Lymphocytes (Bld) [#/Vol] 0.33 10*3/uL Low 1.00-4.00 [facility] Comment on above: Order Comment: Speci men Type: BLOOD SPECIMENOrdering Facility: [facility] Address: [address] [place] [address] Performed By: #### 5 7021-8 ####HOOD LABORATORYCLIA [id number] [address] Lymphocytes/100 WBC (Bld) 1.0 % Normal [facility] Comment on above: Order Comment: Speci men Type: BLOOD SPECIMENOrdering Facility: [facility] Address: [address] [place] [address] Performed By: #### 5 7021-8 ####HOOD LABORATORYCLIA [id number] [address] [place] MCH (RBC) [Entitic mass] 25.0 pg Low 26.0-34.0 [facility] Comment on above: Order Comment: Speci men Type: BLOOD SPECIMENOrdering Facility: [facility] Address: [address] [place] [address] Performed By: #### 5 7021-8 ####HOOD LABORATORYCLIA [id number] [address] STATES [facility] MCHC (RBC) [Mass/Vol] 31.8 g/dL Normal 30.5-36.0 [facility] Comment on above: Order Comment: Speci men Type: BLOOD SPECIMENOrdering Facility: [facility] Address: [address] [place] [address] Performed By: #### 5 7021-8 ####HOOD LABORATORYCLIA [id number] [address] MCV (RBC) [Entitic vol] 78.7 fL Low 80.0-100.0 [facility] Comment on above: Order Comment: Speci men Type: BLOOD SPECIMENOrdering Facility: [facility] Address: [address] [place] [address] Performed By: #### 5 7021-8 ####HOOD LABORATORYCLIA [id number] [address] OF [place] Metamyelocytes/100 WBC (Bld) 1.0 % Normal [facility] Comment on above: Order Comment: Speci men Type: BLOOD SPECIMENOrdering Facility: [facility] Address: [address] [place] [address] Performed By: #### 5 7021-8 ####HOOD LABORATORYCLIA [id number] [place] [address] [place] Monocytes (Bld) [#/Vol] 11.05 10*3/uL High <0.87 [facility] Comment on above: Order Comment: Speci men Type: BLOOD SPECIMENOrdering Facility: [facility] Address: [address] [place] [address] Performed By: #### 5 7021-8 ####HOOD LABORATORYCLIA [id number] [address] [place] Monocytes/100 WBC (Bld) 33.0 % Normal [facility] Comment on above: Order Comment: Speci men Type: BLOOD SPECIMENOrdering Facility: [facility] Address: [address] [place] [address] Performed By: #### 5 7021-8 ####HOOD LABORATORYCLIA [id number] [address] OF [place] MYELO% 1.0 % Normal [facility] Comment on above: Order Comment: Speci men Type: BLOOD SPECIMENOrdering Facility: [facility] Address: [address] [place] [address] Performed By: #### 5 7021-8 ####HOOD LABORATORYCLIA [id number] [place] [address] [place] Neutrophils (Bld) [#/Vol] 21.09 10*3/uL High 1.45-7.50 [facility] Comment on above: Order Comment: Speci men Type: BLOOD SPECIMENOrdering Facility: [facility] Address: [address] [place] [address] Performed By: #### 5 7021-8 ####HOOD LABORATORYCLIA [id number] [address] [place] Neutrophils/100 WBC (Bld) 63.0 % Normal [facility] Comment on above: Order Comment: Speci men Type: BLOOD SPECIMENOrdering Facility: [facility] Address: [address] [place] [address] Performed By: #### 5 7021-8 ####HOOD LABORATORYCLIA [id number] [place] [address] [place] Nucleated RBC (Bld) [#/Vol] 10*3/uL Normal <0.01 [facility] Comment on above: Order Comment: Speci men Type: BLOOD SPECIMENOrdering Facility: [facility] Address: [address] [place] [address] Performed By: #### 5 7021-8 ####HOOD LABORATORYCLIA [id number] [address] [place] Nucleated RBC/100 WBC (Bld) [Ratio] 0.0 /100 WBC Normal [facility] Comment on above: Order Comment: Speci men Type: BLOOD SPECIMENOrdering Facility: [facility] Address: [address] [place] [address] Performed By: #### 5 7021-8 ####HOOD LABORATORYCLIA [id number] [place] [address] [place] Ovalocytes LM Ql (Bld) Few Normal [facility] Comment on above: Order Comment: Speci men Type: BLOOD SPECIMENOrdering Facility: [facility] Address: [address] [place] [address] Performed By: #### 5 7021-8 ####HOOD LABORATORYCLIA [id number] [place] [address] [place] Platelet mean volume (Bld) [Entitic vol] 11.7 fL Normal 9.0-12.7 [facility] Comment on above: Order Comment: Speci men Type: BLOOD SPECIMENOrdering Facility: [facility] Address: [address] [place] [address] Performed By: #### 5 7021-8 ####HOOD LABORATORYCLIA [id number] [place] [address] [place] [employer] [place] Platelets (Bld) [#/Vol] 246 10*3/uL Normal 150-400 [facility] [facility] Comment on above: Order Comment: Speci men Type: BLOOD SPECIMENOrdering Facility: [facility] Address: [address] [place] [address] Performed By: #### 5 7021-8 ####HOOD LABORATORYCLIA [id number] [place] [address] [place] Platelets Estimate (Bld) [#/Vol] Adequate Normal [facility] Comment on above: Order Comment: Speci men Type: BLOOD SPECIMENOrdering Facility: [facility] Address: [address] [place] [address] Performed By: #### 5 7021-8 ####HOOD LABORATORYCLIA [id number] [place] [address] [place] RBC (Bld) [#/Vol] 3.52 10*6/uL Low 4.20-6.00 [facility] Comment on above: Order Comment: Speci men Type: BLOOD SPECIMENOrdering Facility: [facility] Address: [address] [place] [address] Performed By: #### 5 7021-8 ####HOOD LABORATORYCLIA [id number] [address] OF [place]ORPH Reviewed: see result s of individual morphologies Normal [facility] Comment on above: Order Comment: Speci men Type: BLOOD SPECIMENOrdering Facility: [facility] Address: [address] [place] [address] Performed By: #### 5 7021-8 ####HOOD LABORATORYCLIA [id number] [place] [address] [place] WBC (Bld) [#/Vol] 33.47 10*3/uL High 3.70-11.00 [facility] Comment on above: Order Comment: Speci men Type: BLOOD SPECIMENOrdering Facility: [facility] Address: [address] [place] [address] Performed By: #### 5 7021-8 ####HOOD LABORATORYCLIA [id number] [place] [address] [place] WBC Left Shift Ql (Bld) Present Normal [facility] Comment on above: Order Comment: Speci men Type: BLOOD SPECIMENOrdering Facility: [facility] Address: [address] [place] [address] Performed By: #### 5 7021-8 ####[facility] LABORATORYCLIA [id number] [place] [address] [place] CONSULT PROGon 12-06-2024 CONSULT PROG Normal [facility] Magnesium SerPl-mCncon 12-06 Magnesium [Mass/Vol] 1.9 mg/dL Normal 1.7-2.3 [facility] Comment on above: Order Comment: Speci men Type: BLOOD SPECIMENOrdering Facility: [facility] Address: [address] [place] [address] Performed By: #### 2 4321-2, 2777-1, ####WESTON LABORATORYCLIA [id number] [place] [address] [place] Phosphate SerPl-mCncon 12-06 Phosphate [Mass/Vol] 2.6 mg/dL Low 2.7-4.8 [facility] Comment on above: Order Comment: Speci men Type: BLOOD SPECIMENOrdering Facility: [facility] Address: [address] [place] [address] Performed By: #### 2 4321-2, 2777-1, ####WESTON LABORATORYCLIA [id number] [place] [id number] [place] THERAPY NTon 12-06-2024 THERAPY NT Normal [facility] Basic metabolic 2000 panelon 12-05-2024 Anion gap [Moles/Vol] 11 mmol/L Normal 8-15 [facility] Comment on above: Order Comment: Speci men Type: BLOOD SPECIMENOrdering Facility: [facility] Address: [address] [place] [address] Performed By: #### 2 4321-2, 86395-8, 2776- ####WESTON LABORATORYCLIA [id number] [place] [address] [place] Calcium [Mass/Vol] 9.1 mg/dL Normal 8.5-10.2 [facility] Comment on above: Order Comment: Speci men Type: BLOOD SPECIMENOrdering Facility: [facility] Address: [address] [place] [address] Performed By: #### 2 4321-2, , 2776-02 ####HOOD LABORATORYCLIA [id number] [place] [address] [place] Chloride [Moles/Vol] 92 mmol/L Low 98-107 [facility] Comment on above: Order Comment: Speci men Type: BLOOD SPECIMENOrdering Facility: [facility] Address: [address] [place] [address] Performed By: #### 2 4321-2, , 2776-02 ####HOOD LABORATORYCLIA [id number] [place] [address] [place] CO2 [Moles/Vol] 26 mmol/L Normal 22-30 [facility] Comment on above: Order Comment: Speci men Type: BLOOD SPECIMENOrdering Facility: [facility] Address: [address] [place] [address] Performed By: #### 2 4321-2, , 2776-02 ####HOOD LABORATORYCLIA [id number] [place] [address] [place] Creatinine [Mass/Vol] 0.73 mg/dL Normal 0.73-1.22 [facility] Comment on above: Order Comment: Speci men Type: BLOOD SPECIMENOrdering Facility: [facility] Address: [address] [place] [address] Performed By: #### 2 4321-2, , 2776-02 ####HOOD LABORATORYCLIA [id number] [place] [address] [place] eGFRcr SerPlBld CKD-EPI 2020 91 mL/min/1.73m??? Normal >=60 [facility] Comment on above: Order Comment: Speci men Type: BLOOD SPECIMENOrdering Facility: [facility] Address: [address] [place] [address] Result Comment: Kimberlyn mated Glomerular Filtration Rate (eGFR) is calculated using the 2020 CKD-EPI creatinine equation. This equation utilizes serum creatinine, sex, and age as parameters. The creatinine assay has traceable calibration to isotope dilution-mass spectrometry. Refer to KDIGO guidelines for clinical interpretation. In patients with unstable renal function, e.g. those with acute kidney injury, the eGFR may not accurately reflect actual GFR. Performed By: #### 2 4321-2, , 2776-02 ####WESTON LABORATORYCLIA [id number] [place] [id number] [place] Glucose [Mass/Vol] 115 mg/dL High 74-99 [facility] Comment on above: Order Comment: Yogi byrd Type: BLOOD SPECIMENOrdering Facility: [facility] Address: [address] [place] [address] Result Comment: The [place] Diabetes Association (ADA) provides guidance for cutoff values for fasting glucose and random glucose. The ADA defines fasting as no caloric intake for at least 8 hours. Fasting plasma glucose results between 100 to 125 mg/dL indicate increased risk for diabetes (prediabetes).Fasting plasma glucose results greater than or equal to 126 mg/dL meet the criteria for diagnosis of diabetes. In the absence of unequivocal hyperglycemia, results should be confirmed by repeat testing. In a patient with classic symptoms of hyperglycemia or hyperglycemic crisis, random plasma glucose results greater than or equal to 200 mg/dL meet the criteria for diagnosis of diabetes.Reference: Standards of Medical Care in Diabetes 2016, [employer] Diabetes Association. Diabetes Care. 2016.39(Suppl 1). Performed By: #### 2 4321-2, , 2776-02 ####WESTON LABORATORYCLIA [id number] [place] [address] [place] Potassium [Moles/Vol] 3.8 mmol/L Normal 3.7-5.1 [facility] Comment on above: Order Comment: Yogi byrd Type: BLOOD SPECIMENOrdering Facility: [facility] Address: [address] [place] [id number] Performed By: #### 2 4321-2, , 2776-02 ####HOOD LABORATORYCLIA [id number] [place] [address] [place] Sodium [Moles/Vol] 129 mmol/L Low 136-144 [facility] Comment on above: Order Comment: Speci men Type: BLOOD SPECIMENOrdering Facility: [facility] Address: [address] [place] [address] Performed By: #### 2 4321-2, 03032-0, 2777-1 ####HOOD LABORATORYCLIA [id number] [place] [address] [place] Urea nitrogen [Mass/Vol] 16 mg/dL Normal - [facility] Comment on above: Order Comment: Speci men Type: BLOOD SPECIMENOrdering Facility: [facility] Address: [address] [place] [address] Performed By: #### 2 4321-2, , 2776-02 ####WESTON LABORATORYCLIA [id number] [address] [place] CASE MANAGEMon 12-05-2024 CASE MANAGEM Normal [facility] CBC W Auto Differential pane l (Bld)on 12-05-2024 Anisocytosis Ql (Bld) Present Normal [facility] Comment on above: Order Comment: Speci men Type: BLOOD SPECIMENOrdering Facility: [facility] Address: [address] [place] [address] Performed By: #### 5 7021-8 ####WESTON LABORATORYCLIA [id number] [place] [address] [place] Basophils (Bld) [#/Vol] 0.00 10*3/uL Normal <0.11 [facility] Comment on above: Order Comment: Speci men Type: BLOOD SPECIMENOrdering Facility: [facility] Address: [address] [place] [address] Performed By: #### 5 7021-8 ####HOOD LABORATORYCLIA [id number] [address] [place] Basophils/100 WBC (Bld) 0.0 % Normal [facility] Comment on above: Order Comment: Speci men Type: BLOOD SPECIMENOrdering Facility: [facility] Address: [address] [place] [address] Performed By: #### 5 7021-8 ####HOOD LABORATORYCLIA [id number] [address] [place] Differential cell count method Nom (Bld) Manual Normal [facility] Comment on above: Order Comment: Speci men Type: BLOOD SPECIMENOrdering Facility: [facility] Address: [address] [place] [address] Performed By: #### 5 7021-8 ####HOOD LABORATORYCLIA [id number] [place] [address] [place] Eosinophils (Bld) [#/Vol] 0.40 10*3/uL Normal <0.46 [facility] Comment on above: Order Comment: Speci men Type: BLOOD SPECIMENOrdering Facility: [facility] Address: [address] [place] [address] Performed By: #### 5 7021-8 ####HOOD LABORATORYCLIA [id number] [address] [place] Eosinophils/100 WBC (Bld) 1.0 % Normal [facility] Comment on above: Order Comment: Speci men Type: BLOOD SPECIMENOrdering Facility: [facility] Address: [address] [place] [address] Performed By: #### 5 7021-8 ####HOOD LABORATORYCLIA [id number] [address] [place] Erythrocyte distribution width (RBC) [Ratio] 19.2 % High 11.5-15.0 [facility] Comment on above: Order Comment: Speci men Type: BLOOD SPECIMENOrdering Facility: [facility] Address: [address] [place] [address] Performed By: #### 5 7021-8 ####HOOD LABORATORYCLIA [id number] [address] [place] Hematocrit (Bld) [Volume fraction] 28.8 % Low 39.0-51.0 [facility] Comment on above: Order Comment: Speci men Type: BLOOD SPECIMENOrdering Facility: [facility] Address: [address] [place] [address] Performed By: #### 5 7021-8 ####HOOD LABORATORYCLIA [id number] [place] [address] [place] Hemoglobin (Bld) [Mass/Vol] 9.1 g/dL Low 13.0-17.0 [facility] Comment on above: Order Comment: Speci men Type: BLOOD SPECIMENOrdering Facility: [facility] Address: [address] [place] [address] Performed By: #### 5 7021-8 ####HOOD LABORATORYCLIA [id number] [place] [address] [place] Lymphocytes (Bld) [#/Vol] 1.19 10*3/uL Normal 1.00-4.00 [facility] Comment on above: Order Comment: Speci men Type: BLOOD SPECIMENOrdering Facility: [facility] Address: [address] [place] [address] Performed By: #### 5 7021-8 ####HOOD LABORATORYCLIA [id number] [address] [place] Lymphocytes/100 WBC (Bld) 3.0 % Normal [facility] Comment on above: Order Comment: Speci men Type: BLOOD SPECIMENOrdering Facility: [facility] Address: [address] [place] [address] Performed By: #### 5 7021-8 ####HOOD LABORATORYCLIA [id number] [place] [address] [place] MCH (RBC) [Entitic mass] 24.8 pg Low 26.0-34.0 [facility] Comment on above: Order Comment: Speci men Type: BLOOD SPECIMENOrdering Facility: [facility] Address: [address] [place] [address] Performed By: #### 5 7021-8 ####HOOD LABORATORYCLIA [id number] [place] [address] [place] MCHC (RBC) [Mass/Vol] 31.6 g/dL Normal 30.5-36.0 [facility] Comment on above: Order Comment: Speci men Type: BLOOD SPECIMENOrdering Facility: [facility] Address: [address] [place] [address] Performed By: #### 5 7021-8 ####HOOD LABORATORYCLIA [id number] [place] [address] [place] MCV (RBC) [Entitic vol] 78.5 fL Low 80.0-100.0 [facility] Comment on above: Order Comment: Speci men Type: BLOOD SPECIMENOrdering Facility: [facility] Address: [address] [place] [address] Performed By: #### 5 7021-8 ####HOOD LABORATORYCLIA [id number] [address] [place] Metamyelocytes/100 WBC (Bld) 2.0 % Normal [facility] Comment on above: Order Comment: Speci men Type: BLOOD SPECIMENOrdering Facility: [facility] Address: [address] [place] [address] Performed By: #### 5 7021-8 ####HOOD LABORATORYCLIA [id number] [place] [address] [place] Monocytes (Bld) [#/Vol] 9.53 10*3/uL High <0.87 [facility] Comment on above: Order Comment: Speci men Type: BLOOD SPECIMENOrdering Facility: [facility] Address: [address] [place] [address] Performed By: #### 5 7021-8 ####HOOD LABORATORYCLIA [id number] [place] [address] [place] Monocytes/100 WBC (Bld) 24.0 % Normal [facility] Comment on above: Order Comment: Speci men Type: BLOOD SPECIMENOrdering Facility: [facility] Address: [address] [place] [address] Performed By: #### 5 7021-8 ####HOOD LABORATORYCLIA [id number] [place] [address] [place] Neutrophils (Bld) [#/Vol] 27.79 10*3/uL High 1.45-7.50 [facility] Comment on above: Order Comment: Speci men Type: BLOOD SPECIMENOrdering Facility: [facility] Address: [address] [place] [address] Performed By: #### 5 7021-8 ####HOOD LABORATORYCLIA [id number] [address] STATES [facility] Neutrophils/100 WBC (Bld) 70.0 % Normal [facility] Comment on above: Order Comment: Speci men Type: BLOOD SPECIMENOrdering Facility: [facility] Address: [address] [place] [address] Performed By: #### 5 7021-8 ####HOOD LABORATORYCLIA [id number] [place] [address] [place] Nucleated RBC (Bld) [#/Vol] 10*3/uL Normal <0.01 [facility] Comment on above: Order Comment: Speci men Type: BLOOD SPECIMENOrdering Facility: [facility] Address: [address] [place] [address] Performed By: #### 5 7021-8 ####HOOD LABORATORYCLIA [id number] [address] [place] Nucleated RBC/100 WBC (Bld) [Ratio] 0.0 /100 WBC Normal [facility] Comment on above: Order Comment: Speci men Type: BLOOD SPECIMENOrdering Facility: [facility] Address: [address] [place] [address] Performed By: #### 5 7021-8 ####HOOD LABORATORYCLIA [id number] [place] [address] [place] Platelet mean volume (Bld) [Entitic vol] 11.2 fL Normal 9.0-12.7 [facility] Comment on above: Order Comment: Speci men Type: BLOOD SPECIMENOrdering Facility: [facility] Address: [address] [place] [address] Performed By: #### 5 7021-8 ####HOOD LABORATORYCLIA [id number] [place] [address] [place] Platelets (Bld) [#/Vol] 251 10*3/uL Normal 150-400 [facility] Comment on above: Order Comment: Speci men Type: BLOOD SPECIMENOrdering Facility: [facility] Address: [address] [place] [address] Performed By: #### 5 7021-8 ####HOOD LABORATORYCLIA [id number] [address] OF [place] Platelets Estimate (Bld) [#/Vol] Adequate Normal [facility] Comment on above: Order Comment: Speci men Type: BLOOD SPECIMENOrdering Facility: [facility] Address: [address] [place] [address] Performed By: #### 5 7021-8 ####HOOD LABORATORYCLIA [id number] [address] [place] Polychromasia LM Ql (Bld) Slight Normal [facility] Comment on above: Order Comment: Speci men Type: BLOOD SPECIMENOrdering Facility: [facility] Address: [address] [place] [address] Performed By: #### 5 7021-8 ####HOOD LABORATORYCLIA [id number] [address] [place] RBC (Bld) [#/Vol] 3.67 10*6/uL Low 4.20-6.00 [facility] Comment on above: Order Comment: Speci men Type: BLOOD SPECIMENOrdering Facility: [facility] Address: [address] [place] [address] Performed By: #### 5 7021-8 ####HOOD LABORATORYCLIA [id number] [address] [place]PH Reviewed: see result s of individual morphologies Normal [facility] Comment on above: Order Comment: Speci men Type: BLOOD SPECIMENOrdering Facility: [facility] Address: [address] [place] [address] Performed By: #### 5 7021-8 ####HOOD LABORATORYCLIA [id number] [place] [address] [place] WBC (Bld) [#/Vol] 39.70 10*3/uL High 3.70-11.00 [facility] Comment on above: Order Comment: Speci men Type: BLOOD SPECIMENOrdering Facility: [facility] Address: [facility] [place] [address] Performed By: #### 5 7021-8 ####HOOD LABORATORYCLIA [id number] [address] CONSULT PROGon 12-05-2024 CONSULT PRO Normal [facility] CONSULT PRO Normal [facility] CONSULT PROG Normal [facility] CONSULT PRO Normal [facility] Magnesium SerPl-mCncon 12-05 Magnesium [Mass/Vol] 2.1 mg/dL Normal 1.7-2.3 [facility] Comment on above: Order Comment: Speci men Type: BLOOD SPECIMENOrdering Facility: [facility] Address: [address] [place] [address] [place] [address] Performed By: #### 2 4321-2, 04042-7, 2777-1 ####HOOD LABORATORYCLIA [id number] [address] NURSING PROGon 12-05-2024 NURSING PRO Normal [facility] Phosphate SerPl-mCncon 12-05 Phosphate [Mass/Vol] 2.6 mg/dL Low 2.7-4.8 [facility] Comment on above: Order Comment: Speci men Type: BLOOD SPECIMENOrdering Facility: [facility] Address: [address] [place] [address] Performed By: #### 2 4321-2, 77518-7, 2777-1 ####HOOD LABORATORYCLIA [id number] [address] Vancomycin [place] SerPl-mCncon 12-05-2024 Vancomycin random [Mass/Vol] 10.3 ug/mL Normal 10.0-20.0 [facility] Comment on above: Order Comment: Speci men Type: BLOOD SPECIMENOrdering Facility: [facility] Address: [address] [place] [address] Result Comment: Refe rence ranges and high/low indicator flags are provided as general guidelines only. The treating physician must determine appropriate target levels/dosing based on the specific clinical situation. Performed By: #### 4 091-5 ####HOOD LABORATORYCLIA [id number] [place] [address] [place] [facility] ARTERIAL BLOOD GASESon 12-04 Base excess Calc (Bld) [Moles/Vol] 2 mmol/L Normal 0-2 [facility] Comment on above: Order Comment: Speci men Type: ARTERIAL BLOOD SPECIMENOrdering Facility: [facility] Address: [address] [place] [address] Performed By: #### A LLBG ####[facility] [id number] [facility]OS[facility] RESPIRAT[facility] [id number] [address] Carboxyhemoglobin (BldA) [Mass fraction] 1.7 % Normal 0.0-2.0 [facility] Comment on above: Order Comment: Speci men Type: ARTERIAL BLOOD SPECIMENOrdering Facility: [facility] Address: [address] [place] [address] Result Comment: Carb oxyhemoglobin Reference Range for Smokers: 2.0-8.0% Performed By: #### A LLBG ####[facility] RESPIRATORYIA [id number] HOSPITAL RESPIRATORY [id number] [address] CO2 (Bld) [Partial pressure] 39 mm Hg Normal 36-46 [facility] Comment on above: Order Comment: Speci men Type: ARTERIAL BLOOD SPECIMENOrdering Facility: [facility] Address: [address] [place] [address] Performed By: #### A LLBG ####[facility] [id number] [facility] RESPIRAT[facility] [id number] [address] CO2 adjusted to patient's actual temperature (Bld) [Partial pressure] Normal [facility] Comment on above: Order Comment: Speci men Type: ARTERIAL BLOOD SPECIMENOrdering Facility: [facility] Address: [address] [place] [address] Performed By: #### A LLBG ####[facility] [id number] [facility]OS[facility] RESPIRATORY [id number] [address] [address] FIO2 40 % Normal [facility] Comment on above: Order Comment: Speci men Type: ARTERIAL BLOOD SPECIMENOrdering Facility: [facility] Address: [address] [place] [address] Performed By: #### A LLBG ####HOOD RESPIRATORYCLIA [id number] [facility]OSP[facility] RESPIRATORY [id number] [address] HCO3 (Bld) [Moles/Vol] 26 mmol/L Normal 22-26 [facility] Comment on above: Order Comment: Speci men Type: ARTERIAL BLOOD SPECIMENOrdering Facility: [facility] Address: [address] [place] [address] Performed By: #### A LLBG ####[facility] [id number] [facility] RESPIRATORY [id number] [address] Hemoglobin (Bld) [Mass/Vol] 9.2 g/dL Low 13.0-17.0 [facility] Comment on above: Order Comment: Speci men Type: ARTERIAL BLOOD SPECIMENOrdering Facility: [facility] Address: [address] [place] [address] Performed By: #### A LLBG ####[facility] [id number] [facility] RESPIR[facility] [id number] [address] IPAP (CM H2O) 14 Normal [facility] Comment on above: Order Comment: Speci men Type: ARTERIAL BLOOD SPECIMENOrdering Facility: [facility] Address: [address] [place] [address] Performed By: #### A LLBG ####[facility] [id number] [facility]OS[facility] RESPIRATORY [id number] [address] Lactate [Moles/Vol] 0.7 mmol/L Normal 0.5-2.2 [facility] Comment on above: Order Comment: Speci men Type: ARTERIAL BLOOD SPECIMENOrdering Facility: [facility] Address: [address] [place] [address] Performed By: #### A LLBG ####[facility] [id number] [facility]OSP[facility] RESPIRATORY [id number] [address] Methemoglobin (Bld) [Mass fraction] % Normal 0.0-1.5 [facility] Comment on above: Order Comment: Speci men Type: ARTERIAL BLOOD SPECIMENOrdering Facility: [facility] Address: [address] [place] [address] Performed By: #### A LLBG ####[facility] RESPIRATORYIA [id number] [facility]IR[facility] [id number] [address] O2 THERAPY Positive Normal [facility] Comment on above: Order Comment: Speci men Type: ARTERIAL BLOOD SPECIMENOrdering Facility: [facility] Address: [address] [place] [address] Performed By: #### A LLBG ####[facility] [id number] [facility] RESPIRAT[facility] [id number] [address] [address] Oxygen (Bld) [Partial pressure] 152 mm Hg High 85-95 [facility] Comment on above: Order Comment: Speci men Type: ARTERIAL BLOOD SPECIMENOrdering Facility: [facility] Address: [address] [place] [address] Performed By: #### A LLBG ####[facility] RESPIRATORYIA [id number] [facility] RESPIRATORY [id number] [address] [address] Oxygen adjusted to patient's actual temperature (Bld) [Partial pressure] Normal [facility] Comment on above: Order Comment: Speci men Type: ARTERIAL BLOOD SPECIMENOrdering Facility: [facility] Address: [address] [place] [address] Performed By: #### A LLBG ####[facility] RESPIRATORYIA [id number] [facility] RESPIRATORY [id number] [address] [address] Oxyhemoglobin (BldA) [Mass fraction] % High 95-98 [facility] Comment on above: Order Comment: Speci men Type: ARTERIAL BLOOD SPECIMENOrdering Facility: [facility] Address: [address] [place] [address] Performed By: #### A LLBG ####[facility] RESPIRATORYCLIA [id number] [facility] RESPIRAT[facility] [id number] [address] [address] PEEP/CPAP 8 cmH2O Normal [facility] Comment on above: Order Comment: Speci men Type: ARTERIAL BLOOD SPECIMENOrdering Facility: [facility] Address: [address] [place] [address] Performed By: #### A LLBG ####[facility] RESPIRATORYCLIA [id number] [facility] RESPIRATORY [id number] [address] [address] pH (Bld) 7.43 [pH] Normal 7.35-7.45 [facility] Comment on above: Order Comment: Speci men Type: ARTERIAL BLOOD SPECIMENOrdering Facility: [facility] Address: [address] [place] [address] Performed By: #### A LLBG ####[facility] RESPIRATORYIA [id number] [facility] RESPIRATORY [id number] [address] [address] pH adjusted to patient's actual temperature (Bld) Normal [facility] Comment on above: Order Comment: Speci men Type: ARTERIAL BLOOD SPECIMENOrdering Facility: [facility] Address: [address] [place] [address] Performed By: #### A LLBG ####[facility] RESPIRATORYIA [id number] [facility] RESPIRATORY [id number] [address] PO2 / FIO2 RATIO 380 mmHg Normal >300 [facility] Comment on above: Order Comment: Speci men Type: ARTERIAL BLOOD SPECIMENOrdering Facility: [facility] Address: [address] [place] [address] Performed By: #### A LLBG ####[facility] RESPIRATORYCLIA [id number] [facility] RESPIRATORY [id number] [address] [address] Potassium [Moles/Vol] 3.9 mmol/L Normal 3.5-5.0 [facility] Comment on above: Order Comment: Speci men Type: ARTERIAL BLOOD SPECIMENOrdering Facility: [facility] Address: [address] [place] [address] Performed By: #### A LLBG ####[facility] RESPIRATORYCLIA [id number] [facility] RESPIRATORY [id number] [address] [place] [address] Bacteria Bld Culton 12-05-19 Bacteria identified Cx Nom (Bld) CULTURE, BLOOD: No growth 5 days Normal [facility] Comment on above: Performed By: #### 6 00-7 ####[facility] LABCLIA [id number] [place] [address] [place] Bacteria identified Cx Nom (Bld) CULTURE, BLOOD: No growth 5 days Normal [facility] Comment on above: Performed By: #### 6 00-7 ####[facility] LABCLIA [id number] [place] [address] [place] Basic metabolic 2000 panelon 12-04-2024 Anion gap [Moles/Vol] 11 mmol/L Normal 8-15 [facility] Comment on above: Order Comment: Speci men Type: BLOOD SPECIMENOrdering Facility: [facility] Address: [address] [place] [address] Performed By: #### 2 4321-2, 2776-02, ####[facility] LABORATORYCLIA [id number] [place] [address] [place] Calcium [Mass/Vol] 8.7 mg/dL Normal 8.5-10.2 [facility] Comment on above: Order Comment: Speci men Type: BLOOD SPECIMENOrdering Facility: [facility] Address: [address] [place] [address] Performed By: #### 2 4321-2, 2776-02, ####[facility] LABORATORYCLIA [id number] [place] [address] [place] Chloride [Moles/Vol] 97 mmol/L Low 98-107 [facility] Comment on above: Order Comment: Speci men Type: BLOOD SPECIMENOrdering Facility: [facility] Address: [facility] [place] [address] Performed By: #### 2 4321-2, 2776-02, ####[facility] LABORATORYCLIA [id number] [place] [address] [place] CO2 [Moles/Vol] 24 mmol/L Normal 22-30 [facility] Comment on above: Order Comment: Specvishal byrd Type: BLOOD SPECIMENOrdering Facility: [facility] Address: [address] [place] [address] Performed By: #### 2 4321-2, 2777-, ####[facility] LABORATORYCLIA [id number] [place] [address] [place] Creatinine [Mass/Vol] 0.59 mg/dL Low 0.73-1.22 [facility] Comment on above: Order Comment: Speci men Type: BLOOD SPECIMENOrdering Facility: [facility] Address: [address] [place] [address] Performed By: #### 2 4321-2, 2776-02, ####HOOD LABORATORYCLIA [id number] [place] [id number] [place] eGFRcr SerPlBld CKD-EPI 2020 97 mL/min/1.73m??? Normal >=60 [facility] Comment on above: Order Comment: Specvishal men Type: BLOOD SPECIMENOrdering Facility: [facility] Address: [address] [place] [address] Result Comment: Kimberlyn mated Glomerular Filtration Rate (eGFR) is calculated using the 2020 CKD-EPI creatinine equation. This equation utilizes serum creatinine, sex, and age as parameters. The creatinine assay has traceable calibration to isotope dilution-mass spectrometry. Refer to KDIGO guidelines for clinical interpretation. In patients with unstable renal function, e.g. those with acute kidney injury, the eGFR may not accurately reflect actual GFR. Performed By: #### 2 4321-2, 2777, ####HOOD LABORATORYCLIA [id number] [place] [address] [place] Glucose [Mass/Vol] 112 mg/dL High 74-99 [facility] Comment on above: Order Comment: Speci rochelle Type: BLOOD SPECIMENOrdering Facility: [facility] Address: [address] [place] [address] Result Comment: The [place] Diabetes Association (ADA) provides guidance for cutoff values for fasting glucose and random glucose. The ADA defines fasting as no caloric intake for at least 8 hours. Fasting plasma glucose results between 100 to 125 mg/dL indicate increased risk for diabetes (prediabetes).Fasting plasma glucose results greater than or equal to 126 mg/dL meet the criteria for diagnosis of diabetes. In the absence of unequivocal hyperglycemia, results should be confirmed by repeat testing. In a patient with classic symptoms of hyperglycemia or hyperglycemic crisis, random plasma glucose results greater than or equal to 200 mg/dL meet the criteria for diagnosis of diabetes.Reference: Standards of Medical Care in Diabetes 2016, [employer] Diabetes Association. Diabetes Care. 2016.39(Suppl 1). Performed By: #### 2 4321-2, 2776-, ####HOOD LABORATORYCLIA [id number] [place] [address] [place] Potassium [Moles/Vol] 3.9 mmol/L Normal 3.7-5.1 [facility] Comment on above: Order Comment: Yogi byrd Type: BLOOD SPECIMENOrdering Facility: [facility] Address: [address] [place] [address] Performed By: #### 2 4321-2, 2776-02, ####HOOD LABORATORYCLIA [id number] [place] [address] [place] Sodium [Moles/Vol] 132 mmol/L Low 136-144 [facility] Comment on above: Order Comment: Yogi byrd Type: BLOOD SPECIMENOrdering Facility: [facility] Address: [address] [place] [address] Performed By: #### 2 4321-2, 2776-02, ####HOOD LABORATORYCLIA [id number] [place] [address] [place] Urea nitrogen [Mass/Vol] 10 mg/dL Normal 9-24 [facility] Comment on above: Order Comment: Yogi byrd Type: BLOOD SPECIMENOrdering Facility: [facility] Address: [address] [place] [address] Performed By: #### 2 4321-2, 27708-12, ####HOOD LABORATORYCLIA [id number] [place] [id number] [place] CASE MANAGEMon 12-04-2024 CASE MANAGEM Normal [facility] CBC W Auto Differential pane l (Bld)on 12-04-2024 Anisocytosis Ql (Bld) Present Normal [facility] Comment on above: Order Comment: Speci men Type: BLOOD SPECIMENOrdering Facility: [facility] Address: [address] [place] [address] Performed By: #### 5 7021-8 ####HOOD LABORATORYCLIA [id number] [place] [address] [place] Basophils (Bld) [#/Vol] 0.00 10*3/uL Normal <0.11 [facility] Comment on above: Order Comment: Speci men Type: BLOOD SPECIMENOrdering Facility: [facility] Address: [address] [place] [address] Performed By: #### 5 7021-8 ####HOOD LABORATORYCLIA [id number] [address] [place] Basophils/100 WBC (Bld) 0.0 % Normal [facility] Comment on above: Order Comment: Speci men Type: BLOOD SPECIMENOrdering Facility: [facility] Address: [address] [place] [address] Performed By: #### 5 7021-8 ####HOOD LABORATORYCLIA [id number] [address] [place] Differential cell count method Nom (Bld) Manual Normal [facility] Comment on above: Order Comment: Speci men Type: BLOOD SPECIMENOrdering Facility: [facility] Address: [address] [place] [address] Performed By: #### 5 7021-8 ####HOOD LABORATORYCLIA [id number] [place] [address] [place] Eosinophils (Bld) [#/Vol] 0.33 10*3/uL Normal <0.46 [facility] Comment on above: Order Comment: Speci men Type: BLOOD SPECIMENOrdering Facility: [facility] Address: [address] [place] [address] Performed By: #### 5 7021-8 ####HOOD LABORATORYCLIA [id number] [place] [address] [place] Eosinophils/100 WBC (Bld) 1.0 % Normal [facility] Comment on above: Order Comment: Speci men Type: BLOOD SPECIMENOrdering Facility: [facility] Address: [address] [place] [address] Performed By: #### 5 7021-8 ####HOOD LABORATORYCLIA [id number] [place] [address] [place] Erythrocyte distribution width (RBC) [Ratio] 18.9 % High 11.5-15.0 [facility] Comment on above: Order Comment: Speci men Type: BLOOD SPECIMENOrdering Facility: [facility] Address: [address] [place] [address] Performed By: #### 5 7021-8 ####HOOD LABORATORYCLIA [id number] [address] [place] Hematocrit (Bld) [Volume fraction] 28.4 % Low 39.0-51.0 [facility] Comment on above: Order Comment: Speci men Type: BLOOD SPECIMENOrdering Facility: [facility] Address: [address] [place] [address] Performed By: #### 5 7021-8 ####HOOD LABORATORYCLIA [id number] [place] [address] [place] Hemoglobin (Bld) [Mass/Vol] 8.8 g/dL Low 13.0-17.0 [facility] Comment on above: Order Comment: Speci men Type: BLOOD SPECIMENOrdering Facility: [facility] Address: [address] [place] [address] Performed By: #### 5 7021-8 ####HOOD LABORATORYCLIA [id number] [place] [address] [place] Lymphocytes (Bld) [#/Vol] 0.99 10*3/uL Low 1.00-4.00 [facility] Comment on above: Order Comment: Speci men Type: BLOOD SPECIMENOrdering Facility: [facility] Address: [address] [place] [address] Performed By: #### 5 7021-8 ####HOOD LABORATORYCLIA [id number] [address] STATES [facility] Lymphocytes/100 WBC (Bld) 3.0 % Normal [facility] Comment on above: Order Comment: Speci men Type: BLOOD SPECIMENOrdering Facility: [facility] Address: [address] [place] [address] Performed By: #### 5 7021-8 ####HOOD LABORATORYCLIA [id number] [address] MCH (RBC) [Entitic mass] 24.6 pg Low 26.0-34.0 [facility] Comment on above: Order Comment: Speci men Type: BLOOD SPECIMENOrdering Facility: [facility] Address: [address] [place] [address] Performed By: #### 5 7021-8 ####HOOD LABORATORYCLIA [id number] [address] MCHC (RBC) [Mass/Vol] 31.0 g/dL Normal 30.5-36.0 [facility] Comment on above: Order Comment: Speci men Type: BLOOD SPECIMENOrdering Facility: [facility] Address: [address] [place] [address] Performed By: #### 5 7021-8 ####HOOD LABORATORYCLIA [id number] [address] MCV (RBC) [Entitic vol] 79.6 fL Low 80.0-100.0 [facility] Comment on above: Order Comment: Speci men Type: BLOOD SPECIMENOrdering Facility: [facility] Address: [address] [place] [address] Performed By: #### 5 7021-8 ####HOOD LABORATORYCLIA [id number] [address] Metamyelocytes/100 WBC (Bld) 2.0 % Normal [facility] Comment on above: Order Comment: Speci men Type: BLOOD SPECIMENOrdering Facility: [facility] Address: [address] [place] [address] Performed By: #### 5 7021-8 ####HOOD LABORATORYCLIA [id number] [place] [address] [place] Monocytes (Bld) [#/Vol] 3.97 10*3/uL High <0.87 [facility] Comment on above: Order Comment: Speci men Type: BLOOD SPECIMENOrdering Facility: [facility] Address: [address] [place] [address] Performed By: #### 5 7021-8 ####HOOD LABORATORYCLIA [id number] [place] [address] [place] Monocytes/100 WBC (Bld) 12.0 % Normal [facility] Comment on above: Order Comment: Speci men Type: BLOOD SPECIMENOrdering Facility: [facility] Address: [address] [place] [address] Performed By: #### 5 7021-8 ####HOOD LABORATORYCLIA [id number] [place] [address] [place] MYELO% 2.0 % Normal [facility] Comment on above: Order Comment: Speci men Type: BLOOD SPECIMENOrdering Facility: [facility] Address: [address] [place] [address] Performed By: #### 5 7021-8 ####HOOD LABORATORYCLIA [id number] [place] [address] [place] Neutrophils (Bld) [#/Vol] 26.49 10*3/uL High 1.45-7.50 [facility] Comment on above: Order Comment: Speci men Type: BLOOD SPECIMENOrdering Facility: [facility] Address: [address] [place] [address] Performed By: #### 5 7021-8 ####HOOD LABORATORYCLIA [id number] [address] OF [place] Neutrophils/100 WBC (Bld) 80.0 % Normal [facility] Comment on above: Order Comment: Speci men Type: BLOOD SPECIMENOrdering Facility: [facility] Address: [address] [place] [address] Performed By: #### 5 7021-8 ####HOOD LABORATORYCLIA [id number] [address] OF [place] Nucleated RBC (Bld) [#/Vol] 10*3/uL Normal <0.01 [facility] Comment on above: Order Comment: Speci men Type: BLOOD SPECIMENOrdering Facility: [facility] Address: [address] [place] [address] Performed By: #### 5 7021-8 ####HOOD LABORATORYCLIA [id number] [address] OF [place] Nucleated RBC/100 WBC (Bld) [Ratio] 0.0 /100 WBC Normal [facility] Comment on above: Order Comment: Speci men Type: BLOOD SPECIMENOrdering Facility: [facility] Address: [address] [place] [address] Performed By: #### 5 7021-8 ####HOOD LABORATORYCLIA [id number] [address] STATES [place] Ovalocytes LM Ql (Bld) Few Normal [facility] Comment on above: Order Comment: Speci men Type: BLOOD SPECIMENOrdering Facility: [facility] Address: [address] [place] [address] Performed By: #### 5 7021-8 ####HOOD LABORATORYCLIA [id number] [address] [place] Platelet mean volume (Bld) [Entitic vol] 11.0 fL Normal 9.0-12.7 [facility] Comment on above: Order Comment: Speci men Type: BLOOD SPECIMENOrdering Facility: [facility] Address: [address] [place] [address] Performed By: #### 5 7021-8 ####HOOD LABORATORYCLIA [id number] [place] [address] [place] [employer] OF [place] Platelets (Bld) [#/Vol] 244 10*3/uL Normal 150-400 [facility] Comment on above: Order Comment: Speci men Type: BLOOD SPECIMENOrdering Facility: [facility] Address: [address] [place] [address] Performed By: #### 5 7021-8 ####HOOD LABORATORYCLIA [id number] [address] Platelets Estimate (Bld) [#/Vol] Adequate Normal [facility] Comment on above: Order Comment: Speci men Type: BLOOD SPECIMENOrdering Facility: [facility] Address: [address] [place] [address] Performed By: #### 5 7021-8 ####HOOD LABORATORYCLIA [id number] [address] Polychromasia LM Ql (Bld) Slight Normal [facility] Comment on above: Order Comment: Speci men Type: BLOOD SPECIMENOrdering Facility: [facility] Address: [address] [place] [address] Performed By: #### 5 7021-8 ####HOOD LABORATORYCLIA [id number] [address] OF [place] RBC (Bld) [#/Vol] 3.57 10*6/uL Low 4.20-6.00 [facility] Comment on above: Order Comment: Speci men Type: BLOOD SPECIMENOrdering Facility: [facility] Address: [address] [place] [address] Performed By: #### 5 7021-8 ####HOOD LABORATORYCLIA [id number] [address] RED CELL MORPH Reviewed: see result s of individual morphologies Normal [facility] Comment on above: Order Comment: Speci men Type: BLOOD SPECIMENOrdering Facility: [facility] Address: [address] [place] [address] Performed By: #### 5 7021-8 ####HOOD LABORATORYCLIA [id number] [address] OF [place] WBC (Bld) [#/Vol] 33.11 10*3/uL High 3.70-11.00 [facility] Comment on above: Order Comment: Speci men Type: BLOOD SPECIMENOrdering Facility: [facility] Address: [address] [place] [address] Result Comment: No c lot detected. Performed By: #### 5 7021-8 ####HOOD LABORATORYCLIA [id number] [place] [address] [place] WBC Left Shift Ql (Bld) Present Normal [facility] Comment on above: Order Comment: Speci men Type: BLOOD SPECIMENOrdering Facility: [facility] Address: [address] [place] [address] Performed By: #### 5 7021-8 ####[facility] LABORATORYCLIA [id number] [place] [address] [place] CONSULT PROGon 12-04-2024 CONSULT PROG Normal [facility] CONSULT PROG Normal [facility] CONSULT PROG Normal [facility] Magnesium SerPl-mCncon 12-04 Magnesium [Mass/Vol] 2.2 mg/dL Normal 1.7-2.3 [facility] Comment on above: Order Comment: Speci men Type: BLOOD SPECIMENOrdering Facility: [facility] Address: [address] [place] [address] Performed By: #### 2 4321-2, 277-, ####[facility] LABORATORYCLIA [id number] [place] [id number] [place] Phosphate SerPl-mCncon 12-04 Phosphate [Mass/Vol] 3.2 mg/dL Normal 2.7-4.8 [facility] Comment on above: Order Comment: Speci men Type: BLOOD SPECIMENOrdering Facility: [facility] Address: [address] [place] [address] Performed By: #### 2 4321-2, 277-, ####[facility] LABORATORYCLIA [id number] [place] [address] [place] THERAPY NTon 12-04-2024 THERAPY NT Normal [facility] THERAPY NT Normal [facility] THERAPY NT Normal [facility] ALLIED HEALTHon 12-03-2024 ALLIED HEALTH Normal [facility] Bacteria Spec Resp Culton Bacteria identified Respiratory culture Nom (Unsp spec) ORGANISM ID: 1 Few normal respiratory terence GRAM STAIN: Rare Gram positive bacilli Few Polymorphonuclear leukocytes Abnormal [facility] Comment on above: Performed By: #### 3 2355-0 ####[facility] LABCLIA [id number] [place] [address] [place] Basic metabolic 2000 panelon 12-03-2024 Anion gap [Moles/Vol] 10 mmol/L Normal 8-15 [facility] Comment on above: Order Comment: Speci men Type: BLOOD SPECIMENOrdering Facility: [facility] Address: [address] [place] [address] Performed By: #### 1 9123-9, 54420-0, 2776- ####[facility] LABORATORYCLIA [id number] [place] [address] [place] Calcium [Mass/Vol] 8.6 mg/dL Normal 8.5-10.2 [facility] Comment on above: Order Comment: Speci men Type: BLOOD SPECIMENOrdering Facility: [facility] Address: [address] [place] [address] Performed By: #### 1 9123-9, 34512-0, 2776- ####[facility] LABORATORYCLIA [id number] [place] [address] [place] Chloride [Moles/Vol] 97 mmol/L Low 98-107 [facility] Comment on above: Order Comment: Speci men Type: BLOOD SPECIMENOrdering Facility: [facility] Address: [address] [place] [address] Performed By: #### 1 9123-9, 43108-6, 2776- ####[facility] LABORATORYCLIA [id number] [place] [id number] [place] CO2 [Moles/Vol] 24 mmol/L Normal 22-30 [facility] Comment on above: Order Comment: Speci men Type: BLOOD SPECIMENOrdering Facility: [facility] Address: [address] [place] [address] Performed By: #### 1 9123-9, 17361-6, 2776- ####[facility] LABORATORYCLIA [id number] [place] [address] [place] Creatinine [Mass/Vol] 0.65 mg/dL Low 0.73-1.22 [facility] Comment on above: Order Comment: Speci men Type: BLOOD SPECIMENOrdering Facility: [facility] Address: [address] [place] [address] Performed By: #### 1 9123-9, 77839-4, 2777 ####HOOD LABORATORYCLIA [id number] [place] [address] [place] eGFRcr SerPlBld CKD-EPI 2020 95 mL/min/1.73m??? Normal >=60 [facility] Comment on above: Order Comment: Yogi byrd Type: BLOOD SPECIMENOrdering Facility: [facility] [facility] [place] Address: [address] [place] [address] Result Comment: Kimberlyn mated Glomerular Filtration Rate (eGFR) is calculated using the 2020 CKD-EPI creatinine equation. This equation utilizes serum creatinine, sex, and age as parameters. The creatinine assay has traceable calibration to isotope dilution-mass spectrometry. Refer to KDIGO guidelines for clinical interpretation. In patients with unstable renal function, e.g. those with acute kidney injury, the eGFR may not accurately reflect actual GFR. Performed By: #### 1 9123-9, 57491-2, 27708-12 ####HOOD LABORATORYCLIA [id number] [place] [address] [place] Glucose [Mass/Vol] 143 mg/dL High 74-99 [facility] Comment on above: Order Comment: Yogi byrd Type: BLOOD SPECIMENOrdering Facility: [facility] [place] Address: [address] [place] [address] Result Comment: The [place] Diabetes Association (ADA) provides guidance for cutoff values for fasting glucose and random glucose. The ADA defines fasting as no caloric intake for at least 8 hours. Fasting plasma glucose results between 100 to 125 mg/dL indicate increased risk for diabetes (prediabetes).Fasting plasma glucose results greater than or equal to 126 mg/dL meet the criteria for diagnosis of diabetes. In the absence of unequivocal hyperglycemia, results should be confirmed by repeat testing. In a patient with classic symptoms of hyperglycemia or hyperglycemic crisis, random plasma glucose results greater than or equal to 200 mg/dL meet the criteria for diagnosis of diabetes.Reference: Standards of Medical Care in Diabetes 2016, [employer] Diabetes Association. Diabetes Care. 2016.39(Suppl 1). Performed By: #### 1 9123-9, 08230-6, 2776- ####HOOD LABORATORYCLIA [id number] [place] [address] [place] Potassium [Moles/Vol] 3.7 mmol/L Normal 3.7-5.1 [facility] Comment on above: Order Comment: Speci men Type: BLOOD SPECIMENOrdering Facility: [facility] [place] Address: [address] [place] [address] Performed By: #### 1 9123-9, 39034-0, 2776- ####HOOD LABORATORYCLIA [id number] [place] [address] [place] Sodium [Moles/Vol] 131 mmol/L Low 136-144 [facility] Comment on above: Order Comment: Speci men Type: BLOOD SPECIMENOrdering Facility: [facility] [place] Address: [address] [place] [address] Performed By: #### 1 9123-9, 17998-0, 2776- ####HOOD LABORATORYCLIA [id number] [place] [address] [place] Urea nitrogen [Mass/Vol] 7 mg/dL Low 9-24 [facility] Comment on above: Order Comment: Speci men Type: BLOOD SPECIMENOrdering Facility: [facility] [place] Address: [address] [place] [address] Performed By: #### 1 9123-9, 32295-0, 2776- ####HOOD LABORATORYCLIA [id number] [place] [address] [place] CBC W Auto Differential pane l (Bld)on 12-03-2024 Acanthocytes LM Ql (Bld) Few Normal [facility] Comment on above: Order Comment: Speci men Type: BLOOD SPECIMENOrdering Facility: [facility] [place] Address: [address] [place] [address] Performed By: #### 5 7021-8 ####HOOD LABORATORYCLIA [id number] [address] [place] Anisocytosis Ql (Bld) Present Normal [facility] Comment on above: Order Comment: Speci men Type: BLOOD SPECIMENOrdering Facility: [facility] [place] Address: [address] [place] [address] Performed By: #### 5 7021-8 ####HOOD LABORATORYCLIA [id number] [place] [address] [place] Basophils (Bld) [#/Vol] 0.00 10*3/uL Normal <0.11 [facility] Comment on above: Order Comment: Speci men Type: BLOOD SPECIMENOrdering Facility: [facility] [place] Address: [address] [place] [address] Performed By: #### 5 7021-8 ####HOOD LABORATORYCLIA [id number] [address] Basophils/100 WBC (Bld) 0.0 % Normal [facility] Comment on above: Order Comment: Speci men Type: BLOOD SPECIMENOrdering Facility: [facility] [place] Address: [address] [place] [address] Performed By: #### 5 7021-8 ####HOOD LABORATORYCLIA [id number] [address] [place] Differential cell count method Nom (Bld) Manual Normal [facility] Comment on above: Order Comment: Speci men Type: BLOOD SPECIMENOrdering Facility: [facility] [place] Address: [address] [place] [address] Performed By: #### 5 7021-8 ####HOOD LABORATORYCLIA [id number] [place] [address] [place] Eosinophils (Bld) [#/Vol] 0.00 10*3/uL Normal <0.46 [facility] Comment on above: Order Comment: Speci men Type: BLOOD SPECIMENOrdering Facility: [facility] [place] Address: [address] [place] [address] Performed By: #### 5 7021-8 ####HOOD LABORATORYCLIA [id number] [address] [place] Eosinophils/100 WBC (Bld) 0.0 % Normal [facility] Comment on above: Order Comment: Speci men Type: BLOOD SPECIMENOrdering Facility: [facility] [place] Address: [address] [place] [address] Performed By: #### 5 7021-8 ####HOOD LABORATORYCLIA [id number] [place] [address] [place] Erythrocyte distribution width (RBC) [Ratio] 18.3 % High 11.5-15.0 [facility] Comment on above: Order Comment: Speci men Type: BLOOD SPECIMENOrdering Facility: [facility] [place] Address: [address] [place] [address] Performed By: #### 5 7021-8 ####HOOD LABORATORYCLIA [id number] [place] [address] [place] Hematocrit (Bld) [Volume fraction] 27.2 % Low 39.0-51.0 [facility] Comment on above: Order Comment: Speci men Type: BLOOD SPECIMENOrdering Facility: [facility] [place] Address: [address] [place] [address] Performed By: #### 5 7021-8 ####HOOD LABORATORYCLIA [id number] [place] [address] [place] Hemoglobin (Bld) [Mass/Vol] 8.7 g/dL Low 13.0-17.0 [facility] Comment on above: Order Comment: Speci men Type: BLOOD SPECIMENOrdering Facility: [facility] [place] Address: [address] [place] [address] Performed By: #### 5 7021-8 ####HOOD LABORATORYCLIA [id number] [place] [address] [place] Lymphocytes (Bld) [#/Vol] 0.28 10*3/uL Low 1.00-4.00 [facility] Comment on above: Order Comment: Speci men Type: BLOOD SPECIMENOrdering Facility: [facility] [place] Address: [address] [place] [address] Performed By: #### 5 7021-8 ####HOOD LABORATORYCLIA [id number] [place] [address] [place] Lymphocytes/100 WBC (Bld) 1.0 % Normal [facility] Comment on above: Order Comment: Speci men Type: BLOOD SPECIMENOrdering Facility: [facility] [place] Address: [address] [place] [address] Performed By: #### 5 7021-8 ####HOOD LABORATORYCLIA [id number] [address] MCH (RBC) [Entitic mass] 25.3 pg Low 26.0-34.0 [facility] Comment on above: Order Comment: Speci men Type: BLOOD SPECIMENOrdering Facility: [facility] [place] Address: [address] [place] [address] Performed By: #### 5 7021-8 ####HOOD LABORATORYCLIA [id number] [address] STATES [facility] MCHC (RBC) [Mass/Vol] 32.0 g/dL Normal 30.5-36.0 [facility] Comment on above: Order Comment: Speci men Type: BLOOD SPECIMENOrdering Facility: [facility] [place] Address: [address] [place] [address] Performed By: #### 5 7021-8 ####HOOD LABORATORYCLIA [id number] [address] MCV (RBC) [Entitic vol] 79.1 fL Low 80.0-100.0 [facility] Comment on above: Order Comment: Speci men Type: BLOOD SPECIMENOrdering Facility: [facility] [place] Address: [address] [place] [address] Performed By: #### 5 7021-8 ####HOOD LABORATORYCLIA [id number] [address] Monocytes (Bld) [#/Vol] 4.75 10*3/uL High <0.87 [facility] Comment on above: Order Comment: Speci men Type: BLOOD SPECIMENOrdering Facility: [facility] [place] Address: [address] [place] [address] Performed By: #### 5 7021-8 ####HOOD LABORATORYCLIA [id number] [address] Monocytes/100 WBC (Bld) 17.0 % Normal [facility] Comment on above: Order Comment: Speci men Type: BLOOD SPECIMENOrdering Facility: [facility] [place] Address: [address] [place] [address] Performed By: #### 5 7021-8 ####HOOD LABORATORYCLIA [id number] [place] [address] [place] MYELO% 4.0 % Normal [facility] Comment on above: Order Comment: Speci men Type: BLOOD SPECIMENOrdering Facility: [facility] [place] Address: [address] [place] [address] Performed By: #### 5 7021-8 ####HOOD LABORATORYCLIA [id number] [place] [address] [place] Neutrophils (Bld) [#/Vol] 21.80 10*3/uL High 1.45-7.50 [facility] Comment on above: Order Comment: Speci men Type: BLOOD SPECIMENOrdering Facility: [facility] [place] Address: [address] [place] [address] Performed By: #### 5 7021-8 ####HOOD LABORATORYCLIA [id number] [place] [address] [place] Neutrophils/100 WBC (Bld) 78.0 % Normal [facility] Comment on above: Order Comment: Speci men Type: BLOOD SPECIMENOrdering Facility: [facility] [place] Address: [address] [place] [address] Performed By: #### 5 7021-8 ####HOOD LABORATORYCLIA [id number] [place] [address] [place] Nucleated RBC (Bld) [#/Vol] 10*3/uL Normal <0.01 [facility] Comment on above: Order Comment: Speci men Type: BLOOD SPECIMENOrdering Facility: [facility] [place] Address: [address] [place] [address] Performed By: #### 5 7021-8 ####HOOD LABORATORYCLIA [id number] [place] [address] [place] Nucleated RBC/100 WBC (Bld) [Ratio] 0.0 /100 WBC Normal [facility] Comment on above: Order Comment: Speci men Type: BLOOD SPECIMENOrdering Facility: [facility] [place] Address: [address] [place] [address] Performed By: #### 5 7021-8 ####HOOD LABORATORYCLIA [id number] [place] [address] [place] Ovalocytes LM Ql (Bld) Few Normal [facility] Comment on above: Order Comment: Speci men Type: BLOOD SPECIMENOrdering Facility: [facility] [place] Address: [address] [place] [address] Performed By: #### 5 7021-8 ####HOOD LABORATORYCLIA [id number] [place] [address] [place] Platelet mean volume (Bld) [Entitic vol] 11.6 fL Normal 9.0-12.7 [facility] Comment on above: Order Comment: Speci men Type: BLOOD SPECIMENOrdering Facility: [facility] [place] Address: [address] [place] [address] Performed By: #### 5 7021-8 ####HOOD LABORATORYCLIA [id number] [place] [address] [place] Platelets (Bld) [#/Vol] 214 10*3/uL Normal 150-400 [facility] Comment on above: Order Comment: Speci men Type: BLOOD SPECIMENOrdering Facility: [facility] [place] Address: [address] [place] [address] Performed By: #### 5 7021-8 ####HOOD LABORATORYCLIA [id number] [place] [address] [place] Platelets Estimate (Bld) [#/Vol] Adequate Normal [facility] Comment on above: Order Comment: Speci men Type: BLOOD SPECIMENOrdering Facility: [facility] [place] Address: [address] [place] [address] Performed By: #### 5 7021-8 ####HOOD LABORATORYCLIA [id number] [place] [address] [place] Polychromasia LM Ql (Bld) Slight Normal [facility] Comment on above: Order Comment: Speci men Type: BLOOD SPECIMENOrdering Facility: [facility] [place] Address: [address] [place] [address] Performed By: #### 5 7021-8 ####HOOD LABORATORYCLIA [id number] [address] [place] RBC (Bld) [#/Vol] 3.44 10*6/uL Low 4.20-6.00 [facility] Comment on above: Order Comment: Speci men Type: BLOOD SPECIMENOrdering Facility: [facility] [place] Address: [address] [place] [address] Performed By: #### 5 7021-8 ####HOOD LABORATORYCLIA [id number] [address] STATES OF [facility] [employer] MORPH Reviewed: see result s of individual morphologies [facility] Comment on above: Order Comment: Speci men Type: BLOOD SPECIMENOrdering Facility: [facility] [place] Address: [address] [place] [address] Performed By: #### 5 7021-8 ####HOOD LABORATORYCLIA [id number] [address] STATES OF [facility] WBC (Bld) [#/Vol] 27.95 10*3/uL High 3.70-11.00 [facility] Comment on above: Order Comment: Speci men Type: BLOOD SPECIMENOrdering Facility: [facility] [place] Address: [address] [place] [address] Performed By: #### 5 7021-8 ####HOOD LABORATORYCLIA [id number] [address] CONSULT PROGon 12-03-2024 CONSULT PROG Normal [facility] CONSULT PROG Normal [facility] CONSULT PROG [facility] ABD/PELV W IVCONon 12-03 CTA ABD/PELV W IVCON Normal [facility] CTA CHEST (NON GATED) W IVCO N PEon 12-03-2024 CTA CHEST (NON GATED) W IVCON PE Normal [facility] Hgb Bld-mCncon 12-03-2024 Hemoglobin (Bld) [Mass/Vol] 9.1 g/dL Low 13.0-17.0 [facility] Comment on above: Order Comment: Speci men Type: BLOOD SPECIMENOrdering Facility: [facility] [place] Address: [address] [place] [address] Performed By: #### 7 18-7 ####WESTON LABORATORYCLIA [id number] [place] [address] [place] Magnesium SerPl-mCncon 12-03 Magnesium [Mass/Vol] 2.2 mg/dL Normal 1.7-2.3 [facility] Comment on above: Order Comment: Speci men Type: BLOOD SPECIMENOrdering Facility: [facility] [place] Address: [address] [place] [address] Performed By: #### 1 9123-9, 58791-7, 2777-1 ####WESTON LABORATORYCLIA [id number] [place] [address] [place] Phosphate SerPl-mCncon 12-03 Phosphate [Mass/Vol] 3.1 mg/dL Normal 2.7-4.8 [facility] Comment on above: Order Comment: Speci men Type: BLOOD SPECIMENOrdering Facility: [facility] [place] Address: [address] [place] [address] Performed By: #### 1 9123-9, 40824-0, 2777-1 ####WESTON LABORATORYCLIA [id number] [place] [address] [place] Renal function 2000 panelon 12-03-2024 Albumin [Mass/Vol] 3.8 g/dL Low 3.9-4.9 [facility] Comment on above: Order Comment: Speci men Type: BLOOD SPECIMENOrdering Facility: [facility] [place] Address: [address] [place], [place] [address] Performed By: #### 2 4362-6 ####WESTON LABORATORYCLIA [id number] [place] [address] [place] Anion gap [Moles/Vol] 13 mmol/L Normal 8-15 [facility] Comment on above: Order Comment: Speci men Type: BLOOD SPECIMENOrdering Facility: [facility] [place] Address: [address] [place] [address] Performed By: #### 2 4362-6 ####HOOD LABORATORYCLIA [id number] [place] [address] [place] Calcium [Mass/Vol] 8.9 mg/dL Normal 8.5-10.2 [facility] Comment on above: Order Comment: Speci men Type: BLOOD SPECIMENOrdering Facility: [facility] [place] Address: [address] [place] [address] Performed By: #### 2 4362-6 ####HOOD LABORATORYCLIA [id number] [place] [address] [place] Chloride [Moles/Vol] 93 mmol/L Low 98-107 [facility] Comment on above: Order Comment: Speci men Type: BLOOD SPECIMENOrdering Facility: [facility] [place] Address: [address] [place] [address] Performed By: #### 2 4362-6 ####HOOD LABORATORYCLIA [id number] [place] [address] [place] CO2 [Moles/Vol] 24 mmol/L Normal 22-30 [facility] Comment on above: Order Comment: Speci men Type: BLOOD SPECIMENOrdering Facility: [facility] [place] Address: [address] [place] [address] Performed By: #### 2 4362-6 ####HOOD LABORATORYCLIA [id number] [place] [address] [place] Creatinine [Mass/Vol] 0.62 mg/dL Low 0.73-1.22 [facility] Comment on above: Order Comment: Speci men Type: BLOOD SPECIMENOrdering Facility: [facility] [place] Address: [address] [place] [address] Performed By: #### 2 4362-6 ####HOOD LABORATORYCLIA [id number] [place] [address] [place] eGFRcr SerPlBld CKD-EPI 2020 96 mL/min/1.73m??? Normal >=60 [facility] Comment on above: Order Comment: Speci men Type: BLOOD SPECIMENOrdering Facility: [facility] [place] Address: [address] [place] [address] Result Comment: Kimberlyn mated Glomerular Filtration Rate (eGFR) is calculated using the 2020 CKD-EPI creatinine equation. This equation utilizes serum creatinine, sex, and age as parameters. The creatinine assay has traceable calibration to isotope dilution-mass spectrometry. Refer to KDIGO guidelines for clinical interpretation. In patients with unstable renal function, e.g. those with acute kidney injury, the eGFR may not accurately reflect actual GFR. Performed By: #### 2 4362-6 ####WESTON LABORATORYCLIA [id number] [place] [id number] [place] Glucose [Mass/Vol] 125 mg/dL High 74-99 [facility] Comment on above: Order Comment: Yogi [facility] Type: BLOOD SPECIMENOrdering Facility: [facility] [place] Address: [address] [place], [place] [address] Result Comment: The [place] Diabetes Association (ADA) provides guidance for cutoff values for fasting glucose and random glucose. The ADA defines fasting as no caloric intake for at least 8 hours. Fasting plasma glucose results between 100 to 125 mg/dL indicate increased risk for diabetes (prediabetes).Fasting plasma glucose results greater than or equal to 126 mg/dL meet the criteria for diagnosis of diabetes. In the absence of unequivocal hyperglycemia, results should be confirmed by repeat testing. In a patient with classic symptoms of hyperglycemia or hyperglycemic crisis, random plasma glucose results greater than or equal to 200 mg/dL meet the criteria for diagnosis of diabetes.Reference: Standards of Medical Care in Diabetes 2016, [employer] Diabetes Association. Diabetes Care. 2016.39(Suppl 1). Performed By: #### 2 4362-6 ####WESTON LABORATORYCLIA [id number] [place] [id number] [place] Phosphate [Mass/Vol] 3.1 mg/dL Normal 2.7-4.8 [facility] Comment on above: Order Comment: Yogi [facility] Type: BLOOD SPECIMENOrdering Facility: [facility] Address: [address] [place] [address] Performed By: #### 2 4362-6 ####WESTON LABORATORYCLIA [id number] [place] [address] [place] Potassium [Moles/Vol] 3.6 mmol/L Low 3.7-5.1 [facility] Comment on above: Order Comment: Speci men Type: BLOOD SPECIMENOrdering Facility: [facility] Address: [address] [place] [address] Performed By: #### 2 4362-6 ####HOOD LABORATORYCLIA [id number] [place] [address] [place] [facility] Sodium [Moles/Vol] 130 mmol/L Low 136-144 [facility] Comment on above: Order Comment: Speci men Type: BLOOD SPECIMENOrdering Facility: [facility] [place] Address: [address] [place] [address] Performed By: #### 2 4362-6 ####HOOD LABORATORYCLIA [id number] [place] [address] [place] Urea nitrogen [Mass/Vol] 5 mg/dL Low 9-24 [facility] Comment on above: Order Comment: Speci men Type: BLOOD SPECIMENOrdering Facility: [facility] Address: [address] [place] [address] Performed By: #### 2 4362-6 ####HOOD LABORATORYCLIA [id number] [place] [address] [place] STAPHYLOCOCCUS AUREUS AND MR SA SCREEN, PCR, NASALon 12-03-2024 S. aureus and MRSA panel CHILANGO+probe (Nose) Not detected Normal Not Detected [facility] Comment on above: Order Comment: Speci men Type: SWABOrdering Facility: [facility] [place] Address: [address] [place] [address] Performed By: #### S APCR ####[facility] LABCLIA [id number] [place] [address] [place] THERAPY NTon 12-03-2024 THERAPY NT Normal [facility] Urinalysis complete panel (U )on 12-03-2024 Bacteria LM.HPF (Urine sed) [#/Area] Rare Abnormal None Seen [facility] Comment on above: Order Comment: Speci men Type: URINE SPECIMENOrdering Facility: [facility] Address: [address] [place] [address] Performed By: #### 2 4356-8 ####HOOD LABORATORYCLIA [id number] [place] [address] [place] Bilirubin Ql (U) Negative Normal Negative [facility] Comment on above: Order Comment: Speci men Type: URINE SPECIMENOrdering Facility: [facility] Address: [address] [place] [address] Performed By: #### 2 4356-8 ####HOOD LABORATORYCLIA [id number] [address] [place] Clarity (Unsp spec) Clear Normal Clear [facility] Comment on above: Order Comment: Speci men Type: URINE SPECIMENOrdering Facility: [facility] Address: [address] [place] [address] Performed By: #### 2 4356-8 ####HOOD LABORATORYCLIA [id number] [address] [place] Color (U) Yellow Normal Yellow [facility] Comment on above: Order Comment: Speci men Type: URINE SPECIMENOrdering Facility: [facility] Address: [address] [place] [address] Performed By: #### 2 4356-8 ####HOOD LABORATORYCLIA [id number] [address] Epithelial cells LM.HPF (Urine sed) [#/Area] Few Normal [facility] Comment on above: Order Comment: Speci men Type: URINE SPECIMENOrdering Facility: [facility] Address: [address] [place] [address] Performed By: #### 2 4356-8 ####HOOD LABORATORYCLIA [id number] [place] [id number] [place] [employer] [facility] [employer] OF [place] Glucose Test strip (U) [Mass/Vol] Negative Normal Negative [facility] Comment on above: Order Comment: Speci men Type: URINE SPECIMENOrdering Facility: [facility] Address: [address] [place] [address] Performed By: #### 2 4356-8 ####HOOD LABORATORYCLIA [id number] [place] [address] [place] [employer] [facility] [employer] [facility] OF [place] Hemoglobin Ql (U) Negative Normal Negative [facility] [facility] Comment on above: Order Comment: Speci men Type: URINE SPECIMENOrdering Facility: [facility] Address: [address] [place] [address] Performed By: #### 2 4356-8 ####HOOD LABORATORYCLIA [id number] [place] [address] [place] Ketones Ql (U) Negative Normal Negative [facility] Comment on above: Order Comment: Speci men Type: URINE SPECIMENOrdering Facility: [facility] Address: [address] [place] [address] Performed By: #### 2 4356-8 ####HOOD LABORATORYCLIA [id number] [place] [address] [place] Leukocyte esterase Test strip Ql (U) Negative Normal Negative [facility] Comment on above: Order Comment: Speci men Type: URINE SPECIMENOrdering Facility: [facility] Address: [address] [place] [address] Performed By: #### 2 4356-8 ####HOOD LABORATORYCLIA [id number] [place] [address] [place] Nitrite Ql (U) Negative Normal Negative [facility] Comment on above: Order Comment: Speci men Type: URINE SPECIMENOrdering Facility: [facility] Address: [address] [place] [address] Performed By: #### 2 4356-8 ####HOOD LABORATORYCLIA [id number] [place] [address] [place] pH (U) 6.0 [pH] Normal 5.0-8.0 [facility] Comment on above: Order Comment: Speci men Type: URINE SPECIMENOrdering Facility: [facility] Address: [address] [place] [address] Performed By: #### 2 4356-8 ####HOOD LABORATORYCLIA [id number] [place] [address] [place] Protein (U) [Mass/Vol] Negative Normal Negative [facility] Comment on above: Order Comment: Speci men Type: URINE SPECIMENOrdering Facility: [facility] Address: [address] [place] [address] Performed By: #### 2 4356-8 ####HOOD LABORATORYCLIA [id number] [place] [address] [place] RBC LM.HPF (Urine sed) [#/Area] 0-3 /HPF Normal 0-3 /HPF [facility] Comment on above: Order Comment: Speci men Type: URINE SPECIMENOrdering Facility: [facility] Address: [address] [place] [address] Performed By: #### 2 4356-8 ####[facility] LABORATORYCLIA [id number] [place] [address] [place] Specific gravity (U) [Rel density] 1.010 Normal 1.005-1.030 [facility] Comment on above: Order Comment: Speci men Type: URINE SPECIMENOrdering Facility: [facility] Address: [address] [place] [address] Performed By: #### 2 4356-8 ####WESTON LABORATORYCLIA [id number] [address] [place] Urobilinogen Ql (U) 0.2 EU/dL Normal 0.2-1.0 EU/dL [facility] Comment on above: Order Comment: Speci men Type: URINE SPECIMENOrdering Facility: [facility] Address: [address] [place] [address] Performed By: #### 2 4356-8 ####WESTON LABORATORYCLIA [id number] [address] STATES [facility] WBC LM.HPF (Urine sed) [#/Area] 0-5 /HPF Normal 0-5 /HPF [facility] Comment on above: Order Comment: Speci men Type: URINE SPECIMENOrdering Facility: [facility] Address: [address] [place] [address] Performed By: #### 2 4356-8 ####WESTON LABORATORYCLIA [id number] [place] [address] [place] Vancomycin [place] SerPl-mCncon 12-03-2024 Vancomycin random [Mass/Vol] 4.6 ug/mL Low 10.0-20.0 [facility] Comment on above: Order Comment: Speci men Type: BLOOD SPECIMENOrdering Facility: [facility] Address: [address] [place] [address] Result Comment: Refe rence ranges and high/low indicator flags are provided as general guidelines only. The treating physician must determine appropriate target levels/dosing based on the specific clinical situation. Performed By: #### 4 091-5 ####WESTON LABORATORYCLIA [id number] [place] [address] [facility] ALLIED HEALTHon 12-02-2024 ALLIED HEALTH Normal [facility] ARTERIAL BLOOD GASESon 12-02 Base deficit (BldA) [Moles/Vol] mmol/L Normal -2-0 [facility] Comment on above: Order Comment: Speci men Type: ARTERIAL BLOOD SPECIMENOrdering Facility: [facility] Address: [address] [place] [id number] Performed By: #### A LLBG ####[facility] RESPIRATORYCLIA [id number] [id number] [place] [phone] Carboxyhemoglobin (BldA) [Mass fraction] 1.6 % Normal 0.0-2.0 [facility] Comment on above: Order Comment: Speci men Type: ARTERIAL BLOOD SPECIMENOrdering Facility: [facility] Address: [address] [place] [address] Result Comment: Carb oxyhemoglobin Reference Range for Smokers: 2.0-8.0% Performed By: #### A LLBG ####[facility] RESPIRATORYCLIA [id number] [facility] [id number] [address] [address] CO2 (Bld) [Partial pressure] 33 mm Hg Low 36-46 [facility] Comment on above: Order Comment: Speci men Type: ARTERIAL BLOOD SPECIMENOrdering Facility: [facility] Address: [address] [place] [address] Performed By: #### A LLBG ####[facility] RESPIRATORYIA [id number] [facility] [id number] [address] CO2 adjusted to patient's actual temperature (Bld) [Partial pressure] Normal [facility] Comment on above: Order Comment: Speci men Type: ARTERIAL BLOOD SPECIMENOrdering Facility: [facility] Address: [address] [place] [address] Performed By: #### A LLBG ####[facility] RESPIRATORYIA [id number] [facility]OS[facility] RES[facility]IRAT[facility] [id number] [address] HCO3 (Bld) [Moles/Vol] 23 mmol/L Normal 22-26 [facility] Comment on above: Order Comment: Speci men Type: ARTERIAL BLOOD SPECIMENOrdering Facility: [facility] Address: [address] [place] [address] Performed By: #### A LLBG ####[facility]ORY[facility] [id number] [facility] RESPIRATORY [id number] [address] Hemoglobin (Bld) [Mass/Vol] 9.3 g/dL Low 13.0-17.0 [facility] Comment on above: Order Comment: Speci men Type: ARTERIAL BLOOD SPECIMENOrdering Facility: [facility] Address: [address] [place] [id number] Performed By: #### A LLBG ####[facility] [id number] [facility]OS[facility] RESPIRATORY [id number] [address] Lactate [Moles/Vol] 1.8 mmol/L Normal 0.5-2.2 [facility] Comment on above: Order Comment: Speci men Type: ARTERIAL BLOOD SPECIMENOrdering Facility: [facility] Address: [address] [place] [address] Performed By: #### A LLBG ####[facility]ORY[facility] [id number] [facility] RESPIRAT[facility] [id number] [address] Methemoglobin (Bld) [Mass fraction] % Normal 0.0-1.5 [facility] Comment on above: Order Comment: Speci men Type: ARTERIAL BLOOD SPECIMENOrdering Facility: [facility] Address: [address] [place] [id number] Performed By: #### A LLBG ####[facility] [id number] [id number] [address] O2 THERAPY NC = Nasal Cannula Normal [facility] Comment on above: Order Comment: Speci men Type: ARTERIAL BLOOD SPECIMENOrdering Facility: [facility] Address: [address] [place] [address] Performed By: #### A LLBG ####[facility]ORY[facility] [id number] [facility] RESPIRAT[facility] [id number] [address] [address] Oxygen (Bld) [Partial pressure] 115 mm Hg High 85-95 [facility] Comment on above: Order Comment: Speci men Type: ARTERIAL BLOOD SPECIMENOrdering Facility: [facility] Address: [address] [place] [address] Performed By: #### A LLBG ####[facility] [id number] [facility] RESPIRAT[facility] [id number] [address] Oxygen adjusted to patient's actual temperature (Bld) [Partial pressure] Normal [facility] Comment on above: Order Comment: Speci men Type: ARTERIAL BLOOD SPECIMENOrdering Facility: [facility] Address: [address] [place] [address] Performed By: #### A LLBG ####[place] [id number] [place] [address] RESPIRATORY [id number] [address] Oxyhemoglobin (BldA) [Mass fraction] 98 % Normal 95-98 [facility] Comment on above: Order Comment: Speci men Type: ARTERIAL BLOOD SPECIMENOrdering Facility: [facility] Address: [address] [place] [address] Performed By: #### A LLBG ####[facility] [id number] [facility] RESPIRATORY [id number] [address] pH (Bld) 7.46 [pH] High 7.35-7.45 [facility] Comment on above: Order Comment: Speci men Type: ARTERIAL BLOOD SPECIMENOrdering Facility: [facility] Address: [address] [place] [address] Performed By: #### A LLBG ####[facility] [id number] [facility] RESPIRATORY [id number] [address] [address] pH adjusted to patient's actual temperature (Bld) Normal [facility] Comment on above: Order Comment: Speci men Type: ARTERIAL BLOOD SPECIMENOrdering Facility: [facility] Address: [address] [place] [address] Performed By: #### A LLBG ####[facility] RESPIRATORYCLIA [id number] [facility] RESPIRATORY [id number] [address] Potassium [Moles/Vol] 3.8 mmol/L Normal 3.5-5.0 [facility] Comment on above: Order Comment: Speci men Type: ARTERIAL BLOOD SPECIMENOrdering Facility: [facility] Address: [address] [place] [address] Performed By: #### A LLBG ####[facility] [id number] [facility] RESPIRATORY [id number] [address] Basic metabolic 2000 panelon 12-02-2024 Anion gap [Moles/Vol] 11 mmol/L Normal 8-15 [facility] Comment on above: Order Comment: Speci men Type: BLOOD SPECIMENOrdering Facility: [facility] Address: [address] [place], [place] [address] Performed By: #### 2 777-1, 3016-3, 30581-1, 26977-1, 60197-4, 3084-1 ####[facility] LABORATORYCLIA [id number] [place] [address] [place] Calcium [Mass/Vol] 8.2 mg/dL Low 8.5-10.2 [facility] Comment on above: Order Comment: Speci men Type: BLOOD SPECIMENOrdering Facility: [facility] Address: [address] [place] [address] Performed By: #### 2 777-1, 3016-3, 64131-1, 33644-7, 86417-1, 3084-1 ####[facility] LABORATORYCLIA [id number] [place] [address] [place] Chloride [Moles/Vol] 92 mmol/L Low 98-107 [facility] Comment on above: Order Comment: Speci men Type: BLOOD SPECIMENOrdering Facility: [facility] Address: [facility] [place] [address] Performed By: #### 2 777-1, 3016-3, 30323-3, 53222-5, 08434-8, 3084-1 ####[facility] LABORATORYCLIA [id number] [place] [address] [place] CO2 [Moles/Vol] 21 mmol/L Low 22-30 [facility] Comment on above: Order Comment: Speci men Type: BLOOD SPECIMENOrdering Facility: [facility] Address: [address] [place], [place] [address] Performed By: #### 2 777-1, 3016-3, 06761-4, 36873-7, 66600-1, 3084-1 ####[facility] LABORATORYCLIA [id number] [place] [address] [place] Creatinine [Mass/Vol] 0.61 mg/dL Low 0.73-1.22 [facility] Comment on above: Order Comment: Speci men Type: BLOOD SPECIMENOrdering Facility: [facility] Address: [address] [place] [address] Performed By: #### 2 777-1, 3016-3, 32122-5, 90713-4, 22608-9, 3084-1 ####[facility] LABORATORYCLIA [id number] [place] [address] [place] eGFRcr SerPlBld CKD-EPI 2020 96 mL/min/1.73m??? Normal >=60 [facility] Comment on above: Order Comment: Speci men Type: BLOOD SPECIMENOrdering Facility: [facility] Address: [address] [place] [address] Result Comment: Kimberlyn mated Glomerular Filtration Rate (eGFR) is calculated using the 2020 CKD-EPI creatinine equation. This equation utilizes serum creatinine, sex, and age as parameters. The creatinine assay has traceable calibration to isotope dilution-mass spectrometry. Refer to KDIGO guidelines for clinical interpretation. In patients with unstable renal function, e.g. those with acute kidney injury, the eGFR may not accurately reflect actual GFR. Performed By: #### 2 777-1, 3016-3, 92551-4, 74703-8, 70481-3, 3083- ####HOOD LABORATORYCLIA [id number] [place] [address] [place] Glucose [Mass/Vol] 112 mg/dL High 74-99 [facility] Comment on above: Order Comment: Speci men Type: BLOOD SPECIMENOrdering Facility: [facility] Address: [address] [place] [address] Result Comment: The [place] Diabetes Association (ADA) provides guidance for cutoff values for fasting glucose and random glucose. The ADA defines fasting as no caloric intake for at least 8 hours. Fasting plasma glucose results between 100 to 125 mg/dL indicate increased risk for diabetes (prediabetes).Fasting plasma glucose results greater than or equal to 126 mg/dL meet the criteria for diagnosis of diabetes. In the absence of unequivocal hyperglycemia, results should be confirmed by repeat testing. In a patient with classic symptoms of hyperglycemia or hyperglycemic crisis, random plasma glucose results greater than or equal to 200 mg/dL meet the criteria for diagnosis of diabetes.Reference: Standards of Medical Care in Diabetes 2016, [employer] Diabetes Association. Diabetes Care. 2016.39(Suppl 1). Performed By: #### 2 777-1, 3016-3, 72452-7, 49447-1, 05848-6, 3083- ####HOOD LABORATORYCLIA [id number] [place] [id number] [place] Potassium [Moles/Vol] 4.0 mmol/L Normal 3.7-5.1 [facility] Comment on above: Order Comment: Speci men Type: BLOOD SPECIMENOrdering Facility: [facility] Address: [address] [place] [address] Performed By: #### 2 777-1, 3016-3, 18006-4, 39913-2, 03636-2, 3083- ####HOOD LABORATORYCLIA [id number] [place] [id number] [place] Sodium [Moles/Vol] 124 mmol/L Low 136-144 [facility] Comment on above: Order Comment: Speci men Type: BLOOD SPECIMENOrdering Facility: [facility] Address: [address] [place] [address] Performed By: #### 2 777-1, 3016-3, 74528-2, 39157-0, 57533-4, 3084-1 ####HOOD LABORATORYCLIA [id number] [place] [address] [place] Urea nitrogen [Mass/Vol] 9 mg/dL Normal 9-24 [facility] Comment on above: Order Comment: Speci men Type: BLOOD SPECIMENOrdering Facility: [facility] Address: [address] [place] [address] Performed By: #### 2 777-1, 3016-3, 08179-9, 90825-7, 95836-3, 3084- ####HOOD LABORATORYCLIA [id number] [address] [place] CBC W Auto Differential pane l (Bld)on 12-02-2024 Acanthocytes LM Ql (Bld) Few Normal [facility] Comment on above: Order Comment: Speci men Type: BLOOD SPECIMENOrdering Facility: [facility] Address: [address] [place] [address] Performed By: #### 5 7021-8 ####HOOD LABORATORYCLIA [id number] [address] [place] Anisocytosis Ql (Bld) Present Normal [facility] Comment on above: Order Comment: Speci men Type: BLOOD SPECIMENOrdering Facility: [facility] Address: [address] [place] [address] Performed By: #### 5 7021-8 ####HOOD LABORATORYCLIA [id number] [place] [address] [place] Basophils (Bld) [#/Vol] 0.00 10*3/uL Normal <0.11 [facility] Comment on above: Order Comment: Speci men Type: BLOOD SPECIMENOrdering Facility: [facility] Address: [address] [place] [address] Performed By: #### 5 7021-8 ####HOOD LABORATORYCLIA [id number] [place] [address] [place] Basophils/100 WBC (Bld) 0.0 % Normal [facility] Comment on above: Order Comment: Speci men Type: BLOOD SPECIMENOrdering Facility: [facility] Address: [address] [place] [address] Performed By: #### 5 7021-8 ####HOOD LABORATORYCLIA [id number] [place] [address] [place] [employer] [place] Differential cell count method Nom (Bld) Manual Normal [facility] Comment on above: Order Comment: Speci men Type: BLOOD SPECIMENOrdering Facility: [facility] Address: [address] [place] [address] Performed By: #### 5 7021-8 ####HOOD LABORATORYCLIA [id number] [place] [address] [place] Eosinophils (Bld) [#/Vol] 0.25 10*3/uL Normal <0.46 [facility] Comment on above: Order Comment: Speci men Type: BLOOD SPECIMENOrdering Facility: [facility] Address: [address] [place] [address] Performed By: #### 5 7021-8 ####HOOD LABORATORYCLIA [id number] [address] STATES [facility] Eosinophils/100 WBC (Bld) 1.0 % Normal [facility] Comment on above: Order Comment: Speci men Type: BLOOD SPECIMENOrdering Facility: [facility] Address: [address] [place] [address] Performed By: #### 5 7021-8 ####HOOD LABORATORYCLIA [id number] [place] [address] [place] Erythrocyte distribution width (RBC) [Ratio] 17.2 % High 11.5-15.0 [facility] Comment on above: Order Comment: Speci men Type: BLOOD SPECIMENOrdering Facility: [facility] Address: [address] [place] [address] Performed By: #### 5 7021-8 ####HOOD LABORATORYCLIA [id number] [place] [address] Hematocrit (Bld) [Volume fraction] 25.4 % Low 39.0-51.0 [facility] Comment on above: Order Comment: Speci men Type: BLOOD SPECIMENOrdering Facility: [facility] Address: [address] [place] [address] Performed By: #### 5 7021-8 ####HOOD LABORATORYCLIA [id number] [address] [place] Hemoglobin (Bld) [Mass/Vol] 8.5 g/dL Low 13.0-17.0 [facility] Comment on above: Order Comment: Speci men Type: BLOOD SPECIMENOrdering Facility: [facility] Address: [address] [place] [address] Performed By: #### 5 7021-8 ####HOOD LABORATORYCLIA [id number] [address] [place] Lymphocytes (Bld) [#/Vol] 0.75 10*3/uL Low 1.00-4.00 [facility] Comment on above: Order Comment: Speci men Type: BLOOD SPECIMENOrdering Facility: [facility] Address: [address] [place] [address] Performed By: #### 5 7021-8 ####HOOD LABORATORYCLIA [id number] [address] Lymphocytes/100 WBC (Bld) 3.0 % Normal [facility] Comment on above: Order Comment: Speci men Type: BLOOD SPECIMENOrdering Facility: [facility] Address: [address] [place] [address] Performed By: #### 5 7021-8 ####HOOD LABORATORYCLIA [id number] [address] STATES [facility] MCH (RBC) [Entitic mass] 25.8 pg Low 26.0-34.0 [facility] Comment on above: Order Comment: Speci men Type: BLOOD SPECIMENOrdering Facility: [facility] Address: [address] [place] [address] Performed By: #### 5 7021-8 ####HOOD LABORATORYCLIA [id number] [place] [address] [place] MCHC (RBC) [Mass/Vol] 33.5 g/dL Normal 30.5-36.0 [facility] Comment on above: Order Comment: Speci men Type: BLOOD SPECIMENOrdering Facility: [facility] Address: [address] [place] [address] Performed By: #### 5 7021-8 ####HOOD LABORATORYCLIA [id number] [place] [address] [place] MCV (RBC) [Entitic vol] 77.0 fL Low 80.0-100.0 [facility] Comment on above: Order Comment: Speci men Type: BLOOD SPECIMENOrdering Facility: [facility] Address: [address] [place] [address] Performed By: #### 5 7021-8 ####HOOD LABORATORYCLIA [id number] [address] [place] Monocytes (Bld) [#/Vol] 6.96 10*3/uL High <0.87 [facility] Comment on above: Order Comment: Speci men Type: BLOOD SPECIMENOrdering Facility: [facility] Address: [address] [place] [address] Performed By: #### 5 7021-8 ####HOOD LABORATORYCLIA [id number] [address] Monocytes/100 WBC (Bld) 28.0 % Normal [facility] Comment on above: Order Comment: Speci men Type: BLOOD SPECIMENOrdering Facility: [facility] Address: [address] [place] [address] Performed By: #### 5 7021-8 ####HOOD LABORATORYCLIA [id number] [address] [place] MYELO% 1.0 % Normal [facility] Comment on above: Order Comment: Speci men Type: BLOOD SPECIMENOrdering Facility: [facility] Address: [address] [place] [address] Performed By: #### 5 7021-8 ####HOOD LABORATORYCLIA [id number] [address] [place] Neutrophils (Bld) [#/Vol] 16.64 10*3/uL High 1.45-7.50 [facility] Comment on above: Order Comment: Speci men Type: BLOOD SPECIMENOrdering Facility: [facility] Address: [address] [place] [address] Performed By: #### 5 7021-8 ####HOOD LABORATORYCLIA [id number] [address] OF [place] Neutrophils/100 WBC (Bld) 67.0 % Normal [facility] Comment on above: Order Comment: Speci men Type: BLOOD SPECIMENOrdering Facility: [facility] Address: [address] [place] [address] Performed By: #### 5 7021-8 ####HOOD LABORATORYCLIA [id number] [address] Nucleated RBC (Bld) [#/Vol] 10*3/uL Normal <0.01 [facility] Comment on above: Order Comment: Speci men Type: BLOOD SPECIMENOrdering Facility: [facility] Address: [address] [place] [address] Performed By: #### 5 7021-8 ####HOOD LABORATORYCLIA [id number] [address] Nucleated RBC/100 WBC (Bld) [Ratio] 0.0 /100 WBC Normal [facility] Comment on above: Order Comment: Speci men Type: BLOOD SPECIMENOrdering Facility: [facility] Address: [address] [place] [address] Performed By: #### 5 7021-8 ####HOOD LABORATORYCLIA [id number] [place] [address] [place] Ovalocytes LM Ql (Bld) Few Normal [facility] Comment on above: Order Comment: Speci men Type: BLOOD SPECIMENOrdering Facility: [facility] Address: [address] [place] [address] Performed By: #### 5 7021-8 ####HOOD LABORATORYCLIA [id number] [address] OF [place] Platelet mean volume (Bld) [Entitic vol] 11.2 fL Normal 9.0-12.7 [facility] Comment on above: Order Comment: Speci men Type: BLOOD SPECIMENOrdering Facility: [facility] Address: [address] [place] [address] Performed By: #### 5 7021-8 ####HOOD LABORATORYCLIA [id number] [address] OF [place] Platelets (Bld) [#/Vol] 157 10*3/uL Normal 150-400 [facility] Comment on above: Order Comment: Speci men Type: BLOOD SPECIMENOrdering Facility: [facility] Address: [address] [place] [address] Performed By: #### 5 7021-8 ####HOOD LABORATORYCLIA [id number] [address] Platelets Estimate (Bld) [#/Vol] Adequate Normal [facility] Comment on above: Order Comment: Speci men Type: BLOOD SPECIMENOrdering Facility: [facility] Address: [address] [place] [address] Performed By: #### 5 7021-8 ####HOOD LABORATORYCLIA [id number] [address] RBC (Bld) [#/Vol] 3.30 10*6/uL Low 4.20-6.00 [facility] Comment on above: Order Comment: Speci men Type: BLOOD SPECIMENOrdering Facility: [facility] Address: [address] [place] [address] Performed By: #### 5 7021-8 ####HOOD LABORATORYCLIA [id number] [address] RED CELL MORPH Reviewed: see result s of individual morphologies Normal [facility] Comment on above: Order Comment: Speci men Type: BLOOD SPECIMENOrdering Facility: [facility] Address: [address] [place] [address] Performed By: #### 5 7021-8 ####HOOD LABORATORYCLIA [id number] [address] [place] WBC (Bld) [#/Vol] 24.84 10*3/uL High 3.70-11.00 [facility] Comment on above: Order Comment: Speci men Type: BLOOD SPECIMENOrdering Facility: [facility] Address: [address] [place] [address] Performed By: #### 5 7021-8 ####HOOD LABORATORYCLIA [id number] [address] CBC panel Auto (Bld)on 12-02 Erythrocyte distribution width (RBC) [Ratio] 18.1 % High 11.5-15.0 [facility] Comment on above: Order Comment: Speci men Type: BLOOD SPECIMENOrdering Facility: [facility] Address: [address] [place] [address] Performed By: #### 5 8410-2 ####HOOD LABORATORYCLIA [id number] [address] Hematocrit (Bld) [Volume fraction] 27.4 % Low 39.0-51.0 [facility] Comment on above: Order Comment: Speci men Type: BLOOD SPECIMENOrdering Facility: [facility] Address: [address] [place] [address] Performed By: #### 5 8410-2 ####HOOD LABORATORYCLIA [id number] [address] Hemoglobin (Bld) [Mass/Vol] 8.8 g/dL Low 13.0-17.0 [facility] Comment on above: Order Comment: Speci men Type: BLOOD SPECIMENOrdering Facility: [facility] Address: [address] [place] [address] Performed By: #### 5 8410-2 ####HOOD LABORATORYCLIA [id number] [address] MCH (RBC) [Entitic mass] 24.9 pg Low 26.0-34.0 [facility] Comment on above: Order Comment: Speci men Type: BLOOD SPECIMENOrdering Facility: [facility] Address: [address] [place] [address] Performed By: #### 5 8410-2 ####HOOD LABORATORYCLIA [id number] [place] [id number] [place] MCHC (RBC) [Mass/Vol] 32.1 g/dL Normal 30.5-36.0 [facility] Comment on above: Order Comment: Speci men Type: BLOOD SPECIMENOrdering Facility: [facility] Address: [address] [place] [address] Performed By: #### 5 8410-2 ####HOOD LABORATORYCLIA [id number] [address] [place] MCV (RBC) [Entitic vol] 77.6 fL Low 80.0-100.0 [facility] Comment on above: Order Comment: Speci men Type: BLOOD SPECIMENOrdering Facility: [facility] Address: [address] [place] [address] Performed By: #### 5 8410-2 ####HOOD LABORATORYCLIA [id number] [address] [place] Nucleated RBC (Bld) [#/Vol] 0.04 10*3/uL High <0.01 [facility] Comment on above: Order Comment: Speci men Type: BLOOD SPECIMENOrdering Facility: [facility] Address: [address] [place] [address] Performed By: #### 5 8410-2 ####HOOD LABORATORYCLIA [id number] [address] [place] Platelet mean volume (Bld) [Entitic vol] 11.4 fL Normal 9.0-12.7 [facility] Comment on above: Order Comment: Speci men Type: BLOOD SPECIMENOrdering Facility: [facility] Address: [address] [place] [address] Performed By: #### 5 8410-2 ####HOOD LABORATORYCLIA [id number] [address] [place] Platelets (Bld) [#/Vol] 213 10*3/uL Normal 150-400 [facility] Comment on above: Order Comment: Speci men Type: BLOOD SPECIMENOrdering Facility: [facility] Address: [address] [place], [place] [address] Performed By: #### 5 8410-2 ####HOOD LABORATORYCLIA [id number] [place] [id number] [place] RBC (Bld) [#/Vol] 3.53 10*6/uL Low 4.20-6.00 [facility] Comment on above: Order Comment: Speci men Type: BLOOD SPECIMENOrdering Facility: [facility] Address: [address] [place] [address] Performed By: #### 5 8410-2 ####HOOD LABORATORYCLIA [id number] [address] OF [facility] WBC (Bld) [#/Vol] 24.67 10*3/uL High 3.70-11.00 [facility] Comment on above: Order Comment: Speci men Type: BLOOD SPECIMENOrdering Facility: [facility] Address: [address] [place] [address] Performed By: #### 5 8410-2 ####WESTON LABORATORYCLIA [id number] [address] OF [place] CONSULTon 12-02-2024 CONSULT Normal [facility] CONSULT Normal [facility] CONSULT PROGon 12-02-2024 CONSULT PROG [facility] Comprehensive metabolic 2000 panelon 12-02-2024 Albumin [Mass/Vol] 3.8 g/dL Low 3.9-4.9 [facility] Comment on above: Order Comment: Speci men Type: BLOOD SPECIMENOrdering Facility: [facility] Address: [address] [place], [place] [address] Performed By: #### 1 9123-9, 2777-1, 69690-9, 2951-2, 85115-0 ####WESTON LABORATORYCLIA [id number] [address] ALP [Catalytic activity/Vol] 81 U/L Normal 38-113 [facility] Comment on above: Order Comment: Speci men Type: BLOOD SPECIMENOrdering Facility: [facility] Address: [address] [place] [address] Performed By: #### 1 9123-9, 2777-1, 87166-6, 2951-2, 10888-3 ####HOOD LABORATORYCLIA [id number] [place] [address] [place] ALT [Catalytic activity/Vol] 39 U/L Normal 10-54 [facility] Comment on above: Order Comment: Speci men Type: BLOOD SPECIMENOrdering Facility: [facility] Address: [address] [place] [address] Performed By: #### 1 9123-9, 2777-1, 94890-1, 2951-2, 00062-3 ####HOOD LABORATORYCLIA [id number] [address] [place] Anion gap [Moles/Vol] 12 mmol/L Normal 8-15 [facility] Comment on above: Order Comment: Speci men Type: BLOOD SPECIMENOrdering Facility: [facility] Address: [address] [place] [address] Performed By: #### 1 9123-9, 2777-1, 60501-6, 2951-2, 13872-2 ####WESTON LABORATORYCLIA [id number] [address] [place] AST [Catalytic activity/Vol] 47 U/L High 14-40 [facility] Comment on above: Order Comment: Speci men Type: BLOOD SPECIMENOrdering Facility: [facility] Address: [address] [place] [address] Performed By: #### 1 9123-9, 2777-1, 93350-9, 2951-2, 42857-8 ####HOOD LABORATORYCLIA [id number] [place] [address] [place] Bilirubin [Mass/Vol] 0.8 mg/dL Normal 0.2-1.3 [facility] Comment on above: Order Comment: Speci men Type: BLOOD SPECIMENOrdering Facility: [facility] Address: [address] [place] [address] Performed By: #### 1 9123-9, 2777-1, 38530-6, 2951-2, 02494-1 ####HOOD LABORATORYCLIA [id number] [place] [address] [place] Calcium [Mass/Vol] 8.7 mg/dL Normal 8.5-10.2 [facility] Comment on above: Order Comment: Speci men Type: BLOOD SPECIMENOrdering Facility: [facility] Address: [address] [place] [address] Performed By: #### 1 9123-9, 2777-1, 82151-1, 2951-2, 62331-5 ####WESTON LABORATORYCLIA [id number] [place] [address] [place] Chloride [Moles/Vol] 99 mmol/L Normal 98-107 [facility] Comment on above: Order Comment: Speci men Type: BLOOD SPECIMENOrdering Facility: [facility] Address: [address] [place] [address] Performed By: #### 1 9123-9, 2777-1, 46704-4, 2951-2, 35627-8 ####WESTON LABORATORYCLIA [id number] [place] [address] [place] CO2 [Moles/Vol] 22 mmol/L Normal 22-30 [facility] Comment on above: Order Comment: Speci men Type: BLOOD SPECIMENOrdering Facility: [facility] Address: [address] [place] [address] Performed By: #### 1 9123-9, 2777-1, 70992-4, 2951-2, 37738-8 ####[facility] LABORATORYCLIA [id number] [place] [address] [place] Creatinine [Mass/Vol] 0.63 mg/dL Low 0.73-1.22 [facility] Comment on above: Order Comment: Speci men Type: BLOOD SPECIMENOrdering Facility: [facility] Address: [address] [place] [address] Performed By: #### 1 9123-9, 2777-1, 72009-5, 2951-2, 63737-7 ####WESTON LABORATORYCLIA [id number] [place] [address] [place] eGFRcr SerPlBld CKD-EPI 2020 96 mL/min/1.73m??? Normal >=60 [facility] Comment on above: Order Comment: Yogi byrd Type: BLOOD SPECIMENOrdering Facility: [facility] Address: [address] [place] [address] Result Comment: Kimberlyn mated Glomerular Filtration Rate (eGFR) is calculated using the 2020 CKD-EPI creatinine equation. This equation utilizes serum creatinine, sex, and age as parameters. The creatinine assay has traceable calibration to isotope dilution-mass spectrometry. Refer to KDIGO guidelines for clinical interpretation. In patients with unstable renal function, e.g. those with acute kidney injury, the eGFR may not accurately reflect actual GFR. Performed By: #### 1 9123-9, 2777-1, 70812-4, 2951-2, 96939-9 ####WESTON LABORATORYCLIA [id number] [place] [address] [place] Glucose [Mass/Vol] 138 mg/dL High 74-99 [facility] Comment on above: Order Comment: Yogi byrd Type: BLOOD SPECIMENOrdering Facility: [facility] Address: [address] [place] [address] Result Comment: The [place] [employer] (ADA) provides guidance for cutoff values for fasting glucose and random glucose. The ADA defines fasting as no caloric intake for at least 8 hours. Fasting plasma glucose results between 100 to 125 mg/dL indicate increased risk for diabetes (prediabetes).Fasting plasma glucose results greater than or equal to 126 mg/dL meet the criteria for diagnosis of diabetes. In the absence of unequivocal hyperglycemia, results should be confirmed by repeat testing. In a patient with classic symptoms of hyperglycemia or hyperglycemic crisis, random plasma glucose results greater than or equal to 200 mg/dL meet the criteria for diagnosis of diabetes.Reference: Standards of Medical Care in Diabetes 2016, [employer] Diabetes Association. Diabetes Care. 2016.39(Suppl 1). Performed By: #### 1 9123-9, 2777-1, 21970-3, 2951-2, 50139-3 ####WESTON LABORATORYCLIA [id number] [place] [address] [place] Potassium [Moles/Vol] 4.0 mmol/L Normal 3.7-5.1 [facility] Comment on above: Order Comment: Speci men Type: BLOOD SPECIMENOrdering Facility: [facility] Address: [address] [place] [address] Performed By: #### 1 9123-9, 2777-1, 74238-8, 2951-2, 45094-2 ####WESTON LABORATORYCLIA [id number] [place] [address] [place] Protein [Mass/Vol] 6.6 g/dL Normal 6.3-8.0 [facility] Comment on above: Order Comment: Speci men Type: BLOOD SPECIMENOrdering Facility: [facility] Address: [address] [place] [address] Performed By: #### 1 9123-9, 2777-1, 65290-8, 2951-2, 23773-8 ####WESTON LABORATORYCLIA [id number] [place] [address] [place] Urea nitrogen [Mass/Vol] 8 mg/dL Low 9-24 [facility] Comment on above: Order Comment: Speci men Type: BLOOD SPECIMENOrdering Facility: [facility] Address: [address] [place] [address] Performed By: #### 1 9123-9, 2777-1, 62106-5, 2951-2, 08408-1 ####WESTON LABORATORYCLIA [id number] [place] [id number] [place] Cortis SerPl-mCmariahon 12-03-19 25 Cortisol [Mass/Vol] 16.5 ug/dL Normal 4.8-19.5 [facility] Comment on above: Order Comment: Speci men Type: BLOOD SPECIMENOrdering Facility: [facility] Address: [address] [place] [address] Result Comment: Prov ided reference range is from 6-10 AM sample collection time.Cortisol Reference Range: 6-10 AM = 4.8-19.5 ug/dL, 4-8 PM = 2.5-11.9 ug/dL Performed By: #### 2 143-6 ####[facility] LABCLIA [id number] [place] [id number] [place] Creatinine Unsp time (U) [Ma ss/Vol]on 12-02-2024 Creatinine (U) [Mass/Vol] 71.2 mg/dL Normal 20.0-300.0 [facility] Comment on above: Order Comment: Speci men Type: URINE SPECIMENOrdering Facility: [facility] Address: [address] [place] [address] Performed By: #### 3 5674-1, 29284-9, 15740-5 ####[facility] LABCLIA [id number] [place] [id number] [facility] OF [place] Hgb Bld-ncon 12-02-2024 Hemoglobin (Bld) [Mass/Vol] 8.0 g/dL Low 13.0-17.0 [facility] Comment on above: Order Comment: Speci men Type: BLOOD SPECIMENOrdering Facility: [facility] Address: [address] [place] [address] Performed By: #### 7 18-7 ####WESTON LABORATORYCLIA [id number] [place], [place] [address] [place] [address] OF [place] MEDICAL EMERon 12-02-2024 MEDICAL ZOILA Normal [facility] Magnesium SerPl-mCncon 12-02 Magnesium [Mass/Vol] 2.4 mg/dL High 1.7-2.3 [facility] Comment on above: Order Comment: Speci men Type: BLOOD SPECIMENOrdering Facility: [facility] Address: [address] [place] [address] Performed By: #### 1 9123-9, 2777-1, 84831-5, 2951-2, 84621-4 ####WESTON LABORATORYCLIA [id number] [address] Magnesium [Mass/Vol] 2.2 mg/dL Normal 1.7-2.3 [facility] Comment on above: Order Comment: Speci men Type: BLOOD SPECIMENOrdering Facility: [facility] Address: [address] [place] [address] Performed By: #### 2 777-1, 3016-3, 77207-3, 94898-8, 46937-6, 3084-1 ####WEST[facility] LABORATORYCLIA [id number] [place] [address] [place] NT-proBNP SerPl-mCncon 12-02 Natriuretic peptide.B prohormone N-Terminal [Mass/Vol] 1477 pg/mL High <450 [facility] Comment on above: Order Comment: Speci men Type: BLOOD SPECIMENOrdering Facility: [facility] Address: [address] [place] [address] Performed By: #### 2 777-1, 3016-3, 39221-8, 14537-5, 72695-0, 3084-1 ####WEST[facility] LABORATORYCLIA [id number] [place] [address] [place] NURSING PROGon 12-02-2024 NURSING PROG Normal [facility] Osmolality SerPlon Osmolality [Osmolality] 258 mosm/kg Low 275-300 [facility] Comment on above: Order Comment: Speci men Type: BLOOD SPECIMENOrdering Facility: [facility] Address: [address] [place] [address] Performed By: #### 2 692-2 ####[facility] LABCLIA [id number] [place] [address] [place] Osmolality Uron 12-02-2024 Osmolality (U) [Osmolality] 528 mosm/kg Normal 50-1200 [facility] Comment on above: Order Comment: Speci men Type: URINE SPECIMENOrdering Facility: [facility] Address: [address] [place] [address] Performed By: #### 2 695-5 ####[facility] LABCLIA [id number] [place] [address] [place] Phosphate SerPl-mCncon 12-02 Phosphate [Mass/Vol] 3.8 mg/dL Normal 2.7-4.8 [facility] Comment on above: Order Comment: Speci men Type: BLOOD SPECIMENOrdering Facility: [facility] Address: [address] [place] [address] Performed By: #### 1 9123-9, 2777-1, 28938-8, 2951-2, 20641-6 ####[facility] LABORATORYCLIA [id number] [place] [address] [place] Phosphate [Mass/Vol] 2.2 mg/dL Low 2.7-4.8 [facility] Comment on above: Order Comment: Speci men Type: BLOOD SPECIMENOrdering Facility: [facility] Address: [address] [place] [address] Performed By: #### 2 777-1, 3016-3, 47219-3, 89687-7, 54682-8, 3084-1 ####[facility] LABORATORYCLIA [id number] [place] [address] [place] Potassium ?Tm Ur-sCncon 10-2 Potassium Unsp time (U) [Moles/Vol] 39.0 mmol/L Normal 10.0-160.0 [facility] Comment on above: Order Comment: Speci men Type: URINE SPECIMENOrdering Facility: [facility] Address: [address] [place] [address] Performed By: #### 3 5674-1, 69418-6, 97411-7 ####[facility] LABCLIA [id number] [address] [place] Procalcitonin SerPl-mCncon 1 Procalcitonin [Mass/Vol] 0.10 ng/mL High <0.09 [facility] Comment on above: Order Comment: Speci men Type: BLOOD SPECIMENOrdering Facility: [facility] Address: [address] [place] [address] Result Comment: For a guided interpretation of test results, please visit the Change in Procalcitonin Calculator, [email or web address]. Performed By: #### 1 9123-9, 2777-1, 41646-2, 2951-2, 77929-0 ####[facility] LABORATORYCLIA [id number] [place] [address] [place] Sodium ?Tm Ur-sCncon 025 Sodium Unsp time (U) [Moles/Vol] 103 mmol/L Normal 14-216 [facility] Comment on above: Order Comment: Speci men Type: URINE SPECIMENOrdering Facility: [facility] Address: [address] [place] [address] Performed By: #### 3 5674-1, 12871-6, 50773-8 ####[facility] LABCLIA [id number] [place] [address] [place] Sodium SerPl-sCncon 12-03-19 25 Sodium [Moles/Vol] 133 mmol/L Low 136-144 [facility] Comment on above: Order Comment: Speci men Type: BLOOD SPECIMENOrdering Facility: [facility] Address: [address] [place] [address] Performed By: #### 1 9123-9, 2777-1, 02487-7, 2951-2, 25992-8 ####[facility] LABORATORYCLIA [id number] [place] [address] [place] TSH SerPl-aCncon 12-02-2024 TSH Qn 1.580 m[IU]/L Normal 0.270-4.200 [facility] Comment on above: Order Comment: Speci men Type: BLOOD SPECIMENOrdering Facility: [facility] Address: [address] [place] [address] Performed By: #### 2 777-1, 3016-3, 11063-6, 50855-7, 73144-4, 3084-1 ####[facility] LABORATORYCLIA [id number] [place] [address] [place] Urate SerPl-mCncon 5 Urate [Mass/Vol] 1.3 mg/dL Low 4.0-8.1 [facility] Comment on above: Order Comment: Speci men Type: BLOOD SPECIMENOrdering Facility: [facility] Address: [address] [place] [address] Performed By: #### 2 777-1, 3016-3, 43735-4, 32034-2, 36666-8, 3084-1 ####[facility] LABORATORYCLIA [id number] [place] [address] [place] XR CHEST 1V FRONTAL PORTon 1 XR CHEST 1V FRONTAL PORT Normal [facility] Bacteria Wnd Culton 12-02-19 25 Bacteria identified Cx Nom (Wound) ORGANISM ID: 1 One colony Coagulase negative staphylococcus species No further workup GRAM STAIN: No organisms seen Rare Polymorphonuclear leukocytes Abnormal [facility] Comment on above: Performed By: #### 6 462-6 ####[facility] LABCLIA [id number] [place] [address] [place] Basic metabolic 2000 panelon 12-01-2024 Anion gap [Moles/Vol] 9 mmol/L Normal 8-15 [facility] Comment on above: Order Comment: Speci men Type: BLOOD SPECIMENOrdering Facility: [facility] Address: [address] [place] [address] Performed By: #### 2 4321-2, , 2776-02 ####[facility] LABORATORYCLIA [id number] [place] [address] [place] Calcium [Mass/Vol] 7.7 mg/dL Low 8.5-10.2 [facility] Comment on above: Order Comment: Speci men Type: BLOOD SPECIMENOrdering Facility: [facility] Address: [address] [place], [place] [address] Performed By: #### 2 4321-2, , 2776-02 ####[facility] LABORATORYCLIA [id number] [place] [address] [place] Chloride [Moles/Vol] 95 mmol/L Low 98-107 [facility] Comment on above: Order Comment: Speci men Type: BLOOD SPECIMENOrdering Facility: [facility] Address: [address] [place] [address] Performed By: #### 2 4321-2, , 2776-02 ####[facility] LABORATORYCLIA [id number] [place] [address] [place] CO2 [Moles/Vol] 23 mmol/L Normal 22-30 [facility] Comment on above: Order Comment: Yogi byrd Type: BLOOD SPECIMENOrdering Facility: [facility] Address: [address] [place] [address] Performed By: #### 2 4321-2, , 2776-02 ####[facility] LABORATORYCLIA [id number] [place] [address] [place] Creatinine [Mass/Vol] 0.63 mg/dL Low 0.73-1.22 [facility] Comment on above: Order Comment: Yogi byrd Type: BLOOD SPECIMENOrdering Facility: [facility] Address: [address] [place] [address] Performed By: #### 2 4321-2, , 2776-02 ####[facility] LABORATORYCLIA [id number] [place] [address] [place] eGFRcr SerPlBld CKD-EPI 2020 96 mL/min/1.73m??? Normal >=60 [facility] Comment on above: Order Comment: Yogi byrd Type: BLOOD SPECIMENOrdering Facility: [facility] Address: [address] [place] [address] Result Comment: Kimberlyn mated Glomerular Filtration Rate (eGFR) is calculated using the 2020 CKD-EPI creatinine equation. This equation utilizes serum creatinine, sex, and age as parameters. The creatinine assay has traceable calibration to isotope dilution-mass spectrometry. Refer to KDIGO guidelines for clinical interpretation. In patients with unstable renal function, e.g. those with acute kidney injury, the eGFR may not accurately reflect actual GFR. Performed By: #### 2 4321-2, , 2776-02 ####[facility] LABORATORYCLIA [id number] [place] [address] [place] Glucose [Mass/Vol] 104 mg/dL High 74-99 [facility] Comment on above: Order Comment: Yogi rochelle Type: BLOOD SPECIMENOrdering Facility: [facility] Address: [address] [place] [address] Result Comment: The [employer] Diabetes Association (ADA) provides guidance for cutoff values for fasting glucose and random glucose. The ADA defines fasting as no caloric intake for at least 8 hours. Fasting plasma glucose results between 100 to 125 mg/dL indicate increased risk for diabetes (prediabetes).Fasting plasma glucose results greater than or equal to 126 mg/dL meet the criteria for diagnosis of diabetes. In the absence of unequivocal hyperglycemia, results should be confirmed by repeat testing. In a patient with classic symptoms of hyperglycemia or hyperglycemic crisis, random plasma glucose results greater than or equal to 200 mg/dL meet the criteria for diagnosis of diabetes.Reference: Standards of Medical Care in Diabetes 2016, [employer] Diabetes Association. Diabetes Care. 2016.39(Suppl 1). Performed By: #### 2 4321-2, , 2776-02 ####[facility] LABORATORYCLIA [id number] [place] [address] [place] Potassium [Moles/Vol] 4.2 mmol/L Normal 3.7-5.1 [facility] Comment on above: Order Comment: Yogi byrd Type: BLOOD SPECIMENOrdering Facility: [facility] Address: [address] [place] [address] Performed By: #### 2 4321-2, , 2776-02 ####HO[facility] LABORATORYCLIA [id number] [place] [address] [place] Sodium [Moles/Vol] 127 mmol/L Low 136-144 [facility] Comment on above: Order Comment: Yogi byrd Type: BLOOD SPECIMENOrdering Facility: [facility] Address: [address] [place] [address] Performed By: #### 2 4321-2, , 2776-02 ####HOOD LABORATORYCLIA [id number] [place] [id number] [place] Urea nitrogen [Mass/Vol] 11 mg/dL Normal 9-24 [facility] Comment on above: Order Comment: Yogi byrd Type: BLOOD SPECIMENOrdering Facility: [facility] Address: [address] [place] [address] Performed By: #### 2 4321-2, , 2776-02 ####HOOD LABORATORYCLIA [id number] [place] [address] [place] CASE MGT INIT ASSESon 2024 CASE MGT INIT ASSES Normal [facility] CBC W Auto Differential pane l (Bld)on 12-01-2024 Acanthocytes LM Ql (Bld) Few Normal [facility] Comment on above: Order Comment: Speci men Type: BLOOD SPECIMENOrdering Facility: [facility] Address: [address] [place] [address] Performed By: #### 5 7021-8 ####HOOD LABORATORYCLIA [id number] [place] [address] [place] Anisocytosis Ql (Bld) Present Normal [facility] Comment on above: Order Comment: Speci men Type: BLOOD SPECIMENOrdering Facility: [facility] Address: [address] [place] [address] Performed By: #### 5 7021-8 ####HOOD LABORATORYCLIA [id number] [place] [address] [place] Basophils (Bld) [#/Vol] 0.00 10*3/uL Normal <0.11 [facility] Comment on above: Order Comment: Speci men Type: BLOOD SPECIMENOrdering Facility: [facility] Address: [address] [place] [address] Performed By: #### 5 7021-8 ####HOOD LABORATORYCLIA [id number] [place] [address] [place] Basophils/100 WBC (Bld) 0.0 % Normal [facility] Comment on above: Order Comment: Speci men Type: BLOOD SPECIMENOrdering Facility: [facility] Address: [address] [place] [address] Performed By: #### 5 7021-8 ####HOOD LABORATORYCLIA [id number] [place] [id number] [place] Differential cell count method Nom (Bld) Manual Normal [facility] Comment on above: Order Comment: Speci men Type: BLOOD SPECIMENOrdering Facility: [facility] Address: [address] [place] [address] Performed By: #### 5 7021-8 ####HOOD LABORATORYCLIA [id number] [place] [address] [place] Eosinophils (Bld) [#/Vol] 0.00 10*3/uL Normal <0.46 [facility] Comment on above: Order Comment: Speci men Type: BLOOD SPECIMENOrdering Facility: [facility] Address: [address] [place] [address] Performed By: #### 5 7021-8 ####HOOD LABORATORYCLIA [id number] [place] [address] [place] Eosinophils/100 WBC (Bld) 0.0 % Normal [facility] Comment on above: Order Comment: Speci men Type: BLOOD SPECIMENOrdering Facility: [facility] Address: [address] [place] [address] Performed By: #### 5 7021-8 ####HOOD LABORATORYCLIA [id number] [address] Erythrocyte distribution width (RBC) [Ratio] 18.3 % High 11.5-15.0 [facility] Comment on above: Order Comment: Speci men Type: BLOOD SPECIMENOrdering Facility: [facility] Address: [address] [place] [address] Performed By: #### 5 7021-8 ####HOOD LABORATORYCLIA [id number] [address] Hematocrit (Bld) [Volume fraction] 19.9 % Low 39.0-51.0 [facility] Comment on above: Order Comment: Speci men Type: BLOOD SPECIMENOrdering Facility: [facility] Address: [address] [place] [address] Performed By: #### 5 7021-8 ####HOOD LABORATORYCLIA [id number] [place] [address] [place] Hemoglobin (Bld) [Mass/Vol] 6.2 g/dL Low 13.0-17.0 [facility] Comment on above: Order Comment: Speci men Type: BLOOD SPECIMENOrdering Facility: [facility] Address: [address] [place] [address] Performed By: #### 5 7021-8 ####HOOD LABORATORYCLIA [id number] [address] [place] Lymphocytes (Bld) [#/Vol] 0.83 10*3/uL Low 1.00-4.00 [facility] Comment on above: Order Comment: Speci men Type: BLOOD SPECIMENOrdering Facility: [facility] Address: [address] [place] [address] Performed By: #### 5 7021-8 ####HOOD LABORATORYCLIA [id number] [address] Lymphocytes/100 WBC (Bld) 3.0 % Normal [facility] Comment on above: Order Comment: Speci men Type: BLOOD SPECIMENOrdering Facility: [facility] Address: [address] [place] [address] Performed By: #### 5 7021-8 ####HOOD LABORATORYCLIA [id number] [address] STATES [facility] MCH (RBC) [Entitic mass] 23.8 pg Low 26.0-34.0 [facility] Comment on above: Order Comment: Speci men Type: BLOOD SPECIMENOrdering Facility: [facility] Address: [address] [place] [address] Performed By: #### 5 7021-8 ####HOOD LABORATORYCLIA [id number] [address] MCHC (RBC) [Mass/Vol] 31.2 g/dL Normal 30.5-36.0 [facility] Comment on above: Order Comment: Speci men Type: BLOOD SPECIMENOrdering Facility: [facility] Address: [address] [place] [address] Performed By: #### 5 7021-8 ####HOOD LABORATORYCLIA [id number] [address] STATES [facility] MCV (RBC) [Entitic vol] 76.2 fL Low 80.0-100.0 [facility] Comment on above: Order Comment: Speci men Type: BLOOD SPECIMENOrdering Facility: [facility] Address: [address] [place] [address] Performed By: #### 5 7021-8 ####HOOD LABORATORYCLIA [id number] [place] [address] [place] Monocytes (Bld) [#/Vol] 6.67 10*3/uL High <0.87 [facility] Comment on above: Order Comment: Speci men Type: BLOOD SPECIMENOrdering Facility: [facility] Address: [address] [place] [address] Performed By: #### 5 7021-8 ####HOOD LABORATORYCLIA [id number] [place] [address] [place] Monocytes/100 WBC (Bld) 24.0 % Normal [facility] Comment on above: Order Comment: Speci men Type: BLOOD SPECIMENOrdering Facility: [facility] Address: [address] [place] [address] Performed By: #### 5 7021-8 ####HOOD LABORATORYCLIA [id number] [address] [place] MYELO% 1.0 % Normal [facility] Comment on above: Order Comment: Speci men Type: BLOOD SPECIMENOrdering Facility: [facility] Address: [address] [place] [address] Performed By: #### 5 7021-8 ####HOOD LABORATORYCLIA [id number] [place] [address] [place] Neutrophils (Bld) [#/Vol] 20.00 10*3/uL High 1.45-7.50 [facility] Comment on above: Order Comment: Speci men Type: BLOOD SPECIMENOrdering Facility: [facility] Address: [address] [place] [address] Performed By: #### 5 7021-8 ####HOOD LABORATORYCLIA [id number] [place] [address] [place] Neutrophils/100 WBC (Bld) 72.0 % Normal [facility] Comment on above: Order Comment: Speci men Type: BLOOD SPECIMENOrdering Facility: [facility] Address: [address] [place] [address] Performed By: #### 5 7021-8 ####HOOD LABORATORYCLIA [id number] [address] [place] Nucleated RBC (Bld) [#/Vol] 10*3/uL Normal <0.01 [facility] Comment on above: Order Comment: Speci men Type: BLOOD SPECIMENOrdering Facility: [facility] Address: [address] [place] [address] Performed By: #### 5 7021-8 ####HOOD LABORATORYCLIA [id number] [address] Nucleated RBC/100 WBC (Bld) [Ratio] 0.0 /100 WBC Normal [facility] Comment on above: Order Comment: Speci men Type: BLOOD SPECIMENOrdering Facility: [facility] Address: [address] [place] [address] Performed By: #### 5 7021-8 ####HOOD LABORATORYCLIA [id number] [address] Ovalocytes LM Ql (Bld) Few Normal [facility] Comment on above: Order Comment: Speci men Type: BLOOD SPECIMENOrdering Facility: [facility] Address: [address] [place] [address] Performed By: #### 5 7021-8 ####HOOD LABORATORYCLIA [id number] [address] Platelet mean volume (Bld) [Entitic vol] 10.9 fL Normal 9.0-12.7 [facility] Comment on above: Order Comment: Speci men Type: BLOOD SPECIMENOrdering Facility: [facility] Address: [address] [place] [address] Performed By: #### 5 7021-8 ####HOOD LABORATORYCLIA [id number] [place] [address] [place] Platelets (Bld) [#/Vol] 155 10*3/uL Normal 150-400 [facility] Comment on above: Order Comment: Speci men Type: BLOOD SPECIMENOrdering Facility: [facility] Address: [address] [place] [address] Performed By: #### 5 7021-8 ####HOOD LABORATORYCLIA [id number] [address] [place] Platelets Estimate (Bld) [#/Vol] Adequate Normal [facility] Comment on above: Order Comment: Speci men Type: BLOOD SPECIMENOrdering Facility: [facility] Address: [address] [place] [address] Performed By: #### 5 7021-8 ####HOOD LABORATORYCLIA [id number] [address] Polychromasia LM Ql (Bld) Slight Normal [facility] Comment on above: Order Comment: Speci men Type: BLOOD SPECIMENOrdering Facility: [facility] Address: [address] [place] [address] Performed By: #### 5 7021-8 ####HOOD LABORATORYCLIA [id number] [address] RBC (Bld) [#/Vol] 2.61 10*6/uL Low 4.20-6.00 [facility] Comment on above: Order Comment: Speci men Type: BLOOD SPECIMENOrdering Facility: [facility] Address: [address] [place] [address] Performed By: #### 5 7021-8 ####HOOD LABORATORYCLIA [id number] [address] RED CELL MORPH Reviewed: see result s of individual morphologies Normal [facility] Comment on above: Order Comment: Speci men Type: BLOOD SPECIMENOrdering Facility: [facility] Address: [address] [place] [address] Performed By: #### 5 7021-8 ####HOOD LABORATORYCLIA [id number] [address] WBC (Bld) [#/Vol] 27.78 10*3/uL High 3.70-11.00 [facility] Comment on above: Order Comment: Speci men Type: BLOOD SPECIMENOrdering Facility: [facility] Address: [address] [place] [address] Result Comment: No c lot detected. Performed By: #### 5 7021-8 ####HOOD LABORATORYCLIA [id number] [address] [place] WBC Left Shift Ql (Bld) Present Normal [facility] Comment on above: Order Comment: Speci men Type: BLOOD SPECIMENOrdering Facility: [facility] Address: [address] [place] [address] Performed By: #### 5 7021-8 ####HOOD LABORATORYCLIA [id number] [place] [address] [place] CBC W/Diff, Automatedon 11-13 PATH REV Reviewed Normal [facility] Comment on above: Result Comment: LEUK OCYTOSIS WITH NEUTROPHILIA, MONOCYTOSIS AND ABSOLUTE LYMPHOPENIA. MANUAL DIFFERENTIAL CONFIRMS THE AUTOMATED DIFFERENTIAL COUNT. MICROCYTIC LYMPHOCHROMIC ANEMIA WITH OCCASIONAL ACANTHOCYTES, TARGET CELLS, AND OVALOCYTES, AND MILD ANISOCYTOSIS. PLATELETS ADEQUATE. Connie Ventura MD 12/01/2024 AMENDED REPORT 12/01/24 1346 PATH REV previously reported as: June Performed By: #### L 100.0100, L500.4050, L501.2450, L503.6005 #### [facility] [address] [place], [address] CONSULT PROGon 12-01-2024 CONSULT PROG Normal [facility] HISTORY PHYSICALon HISTORY PHYSICAL Normal [facility] Hgb Bld-mCncon 12-01-2024 Hemoglobin (Bld) [Mass/Vol] 8.0 g/dL Low 13.0-17.0 [facility] Comment on above: Order Comment: Speci men Type: BLOOD SPECIMENOrdering Facility: [facility] Address: [address] [place] [address] Result Comment: No c lot detected. Performed By: #### 7 18-7 ####HOOD LABORATORYCLIA [id number] [address] OF [facility] Hemoglobin (Bld) [Mass/Vol] 7.0 g/dL Low 13.0-17.0 [facility] Comment on above: Order Comment: Speci men Type: BLOOD SPECIMENOrdering Facility: [facility] Address: [address] [place] [address] Performed By: #### 7 18-7 ####[facility] LABORATORYCLIA [id number] [place] [address] [place] Magnesium SerPl-mCncon 12-01 Magnesium [Mass/Vol] 2.5 mg/dL High 1.7-2.3 [facility] Comment on above: Order Comment: Speci men Type: BLOOD SPECIMENOrdering Facility: [facility] Address: [address] [place] [address] Performed By: #### 2 4321-2, 55449-8, 2776- ####[facility] LABORATORYCLIA [id number] [place] [id number] [place] Phosphate SerPl-mCncon 12-01 Phosphate [Mass/Vol] 2.7 mg/dL Normal 2.7-4.8 [facility] Comment on above: Order Comment: Speci men Type: BLOOD SPECIMENOrdering Facility: [facility] Address: [address] [place] [address] Performed By: #### 2 4321-2, 87439-9, 2776-02 ####[facility] LABORATORYCLIA [id number] [place] [id number] [place] STREPTOCOCCUS PNEUMONIAE ANT IGEN URINEon 12-01-2024 STREPTOCOCCUS PNEUMONIAE ANTIGEN URINE Normal [facility] Comment on above: Performed By: #### S PNAG ####[facility] LABCLIA [id number] [place] [address] [place] ALLIED HEALTHon 11-30-2024 ALLIED HEALTH Normal [facility] ALLIED HEALTH Normal [facility] ANTIBODY ID PATIENTon 2024 ANTIBODY IDENTIFIED Detected Normal [facility] Comment on above: Order Comment: Speci men Type: BLOOD SPECIMENOrdering Facility: [facility] Address: [address] [place] [address] Performed By: #### L [id number], TSCR, %RICARDO ####[facility] BANKCLIA [id number] [place] [address] [place] Abdomen/Pelvis WITH Contrast on 11-30-2024 Abdomen/Pelvis WITH Contrast [facility] [address] [place] [address] Abdomen/Pelvis WITH Contrast MR#: [id number] Acct: [id number] Name: JAYDEN CRAIG Rep #: [id number] : 1940 M 83 From: Juan José spencer MD PCP: Dr. Eloisa Espinal MD Status: REG ER Study: Abdomen/Pelvis WITH Contrast Date of Exam: Exam# [id number] Ordering Dr: Susannah Rivera DO PROCEDURE: ABDOMEN/PELVIS WITH CONTRAST 11/30/2024 REASON FOR EXAM: ABDOMINAL PAIN TECHNIQUE: Procedure Code: CTABDPELW Modality: CT Procedure: ABDOMEN/PELVIS WITH CONTRAST Coronal and Sagittal reconstruction series were provided. CONTRAST: Isovue 370 VOLUME: 74 mL One or more dose reduction techniques were used (e.g., Automated exposure control, adjustment of the mA and/or kV according to patient size, use of iterative reconstruction technique. RADIATION DOSE SUMMARY: CTDlvol: 21.47 mGy DLP: 1404.21 mGycm COMPARISON: None FINDINGS: Lung bases: Scattered atelectasis and tiny right pleural effusion. Sternal wires. Coronary artery calcifications and/or stents. Liver: Unremarkable Gallbladder: Cholecystectomy Spleen: Normal Pancreas: Unremarkable Adrenals: No adrenal mass Kidneys: No hydronephrosis. 1.4 cm cortical hypodensity in the right kidney series 2, image 62 likely represents a cyst. A 2.8 cm cortical cyst in the left kidney series 2, image 50. Bladder: Unremarkable Reproductive Organs: Mild prostatomegaly Bowel: Postsurgical changes at the cecum. There is no bowel obstruction. Hiatal hernia. Appendix: Not definitely visualized. Lymph nodes: No suspicious lymph node enlargement. Vasculature: Tortuous and ectatic abdominal aorta. Calcified atherosclerotic changes in aortoiliac arteries. Peritoneum / Retroperitoneum: There is no ascites. Bones: Advanced degenerative changes in the spine. Laminectomy changes at L3 through L5. There is a 4.2 by 10.0 by 9.0 cm heterogeneous soft tissue mass in the subcutaneous anterior abdominal wall, supraumbilical. There is associated small air pockets. No extension into the abdominal cavity. Surrounding mild fat stranding. CT/Abdomen/Pelvis WITH Contrast IMPRESSION: 1. Midline anterior abdominal wall soft tissue with associated air, presumably postsurgical hematoma. Developing abscess or underlying soft tissue mass would be difficult to exclude. Close clinical follow-up and follow-up imaging as needed. 2. There is no evidence of acute process in the abdominal cavity or pelvic cavity. Reading Location: [facility] CC: Dr. Eloisa Espinal MD; Dr. Susannah Rivera DO Data Collection Associate: Signed Normal [facility] Absolute lymphocyte countOrd ered By: Susannah Rivera on 11-30-2024 Lymphocytes Auto (Unsp spec) [#/Vol] 0.41 10*3/uL Low 0.83-4.51 [facility] Absolute neutrophil countOrd ered By: Susannah Rivera on 11-30-2024 Neutrophils (Bld) [#/Vol] 24.8 10*3/uL High 2.0-7.7 [facility] Anion gap in Serum or Plasma Ordered By: Susannah Rivera on 11-30-2024 Anion gap [Moles/Vol] 11 mmol/L 5-15 [facility] Automated lymphocyte count a s percentage of total leukocytesOrdered By: Susannah Rivera on 11-30-2024 Lymphocytes/100 WBC Auto (Unsp spec) 1.1 % Low 19-41 [facility] BLOOD BANK COMMENTon 025 BLOOD BANK COMMENT See Comment Normal [facility] Comment on above: Order Comment: Speci men Type: BLOOD SPECIMENOrdering Facility: [facility] Address: [address] [place] [address] Result Comment: See physician's report under antibody interpretation on 06/26/2018. Performed By: #### L [id number], TSCR, %RICARDO ####[facility] BANKCLIA [id number] [place] [address] [place] BUN/creatinine ratioOrdered By: Susannah Rivera on 11-30-2024 Urea nitrogen/Creatinine [Mass ratio] 21.0 mg/mg High 10-20 [facility] Bacteria Bld Culton 12-01-19 25 Bacteria identified Cx Nom (Bld) CULTURE, BLOOD: No growth 5 days Normal [facility] Comment on above: Performed By: #### 6 00-7 ####[facility] LABCLIA [id number] [place] [address] [place] Bacteria identified Cx Nom (Bld) CULTURE, BLOOD: No growth 5 days Normal [facility] Comment on above: Performed By: #### 6 00-7 ####[facility] LABCLIA [id number] [place] [address] [place] Basophil percentageOrdered B y: Chanellus Nicole on 11-30-2024 Basophils/100 WBC (Bld) 0.1 % 0-1 [facility] Bilirubin Test strip Ql (U)O rdered By: Remus Ungcece on 11-30-2024 Bilirubin Ql (U) Negative Negative [facility] Bilirubin, totalOrdered By: Remus Nicole on 11-30-2024 Bilirubin [Mass/Vol] 0.82 mg/dL 0.00-1.30 [facility] Blood manual differential co mment interpretation (narrative result)Ordered By: Susannah Rivera on 11-30-2024 Manual differential comment Edi (Bld) [Interp] COMMENT [facility] Comment on above: NEUTROPHILIA.LYMPHOP ENIA.MONOCYTOSIS.LEUKOCYTOSIS. CBC W Auto Differential pane l (Bld)on 11-30-2024 Acanthocytes LM Ql (Bld) Few Normal [facility] Comment on above: Order Comment: Speci men Type: BLOOD SPECIMENOrdering Facility: [facility] Address: [address] [place] [address] Performed By: #### 5 7021-8 ####HOOD LABORATORYCLIA [id number] [place] [address] [place] Anisocytosis Ql (Bld) Present Normal [facility] Comment on above: Order Comment: Speci men Type: BLOOD SPECIMENOrdering Facility: [facility] Address: [address] [place] [address] Performed By: #### 5 7021-8 ####[facility] LABORATORYCLIA [id number] [place] [address] [place] Basophils (Bld) [#/Vol] 0.00 10*3/uL Normal <0.11 [facility] Comment on above: Order Comment: Speci men Type: BLOOD SPECIMENOrdering Facility: [facility] Address: [address] [place] [address] Performed By: #### 5 7021-8 ####[facility] LABORATORYCLIA [id number] [place] [address] [place] Basophils/100 WBC (Bld) 0.0 % Normal [facility] Comment on above: Order Comment: Speci men Type: BLOOD SPECIMENOrdering Facility: [facility] Address: [address] [place] [address] Performed By: #### 5 7021-8 ####[facility] LABORATORYCLIA [id number] [place] [address] [place] Differential cell count method Nom (Bld) Manual Normal [facility] Comment on above: Order Comment: Speci men Type: BLOOD SPECIMENOrdering Facility: [facility] Address: [address] [place] [address] Performed By: #### 5 7021-8 ####[facility] LABORATORYCLIA [id number] [place] [address] [place] Eosinophils (Bld) [#/Vol] 0.00 10*3/uL Normal <0.46 [facility] Comment on above: Order Comment: Speci men Type: BLOOD SPECIMENOrdering Facility: [facility] Address: [address] [place] [address] Performed By: #### 5 7021-8 ####HO[facility] LABORATORYCLIA [id number] [place] [address] [place] Eosinophils/100 WBC (Bld) 0.0 % Normal [facility] Comment on above: Order Comment: Speci men Type: BLOOD SPECIMENOrdering Facility: [facility] Address: [address] [place] [address] Performed By: #### 5 7021-8 ####HOOD LABORATORYCLIA [id number] [place] [address] [place] Erythrocyte distribution width (RBC) [Ratio] 18.2 % High 11.5-15.0 [facility] Comment on above: Order Comment: Speci men Type: BLOOD SPECIMENOrdering Facility: [facility] Address: [address] [place] [address] Performed By: #### 5 7021-8 ####HOOD LABORATORYCLIA [id number] [address] [place] Hematocrit (Bld) [Volume fraction] 23.1 % Low 39.0-51.0 [facility] Comment on above: Order Comment: Speci men Type: BLOOD SPECIMENOrdering Facility: [facility] Address: [address] [place] [address] Performed By: #### 5 7021-8 ####HOOD LABORATORYCLIA [id number] [address] [place] Hemoglobin (Bld) [Mass/Vol] 7.2 g/dL Low 13.0-17.0 [facility] Comment on above: Order Comment: Speci men Type: BLOOD SPECIMENOrdering Facility: [facility] Address: [address] [place] [address] Performed By: #### 5 7021-8 ####HOOD LABORATORYCLIA [id number] [place] [address] [place] Lymphocytes (Bld) [#/Vol] 0.65 10*3/uL Low 1.00-4.00 [facility] Comment on above: Order Comment: Speci men Type: BLOOD SPECIMENOrdering Facility: [facility] Address: [address] [place] [address] Performed By: #### 5 7021-8 ####HOOD LABORATORYCLIA [id number] [address] [place] Lymphocytes/100 WBC (Bld) 2.0 % Normal [facility] Comment on above: Order Comment: Speci men Type: BLOOD SPECIMENOrdering Facility: [facility] Address: [address] [place] [address] Performed By: #### 5 7021-8 ####HOOD LABORATORYCLIA [id number] [place] [address] [place] MCH (RBC) [Entitic mass] 23.5 pg Low 26.0-34.0 [facility] Comment on above: Order Comment: Speci men Type: BLOOD SPECIMENOrdering Facility: [facility] Address: [address] [place] [address] Performed By: #### 5 7021-8 ####HOOD LABORATORYCLIA [id number] [place] [address] [place] MCHC (RBC) [Mass/Vol] 31.2 g/dL Normal 30.5-36.0 [facility] Comment on above: Order Comment: Speci men Type: BLOOD SPECIMENOrdering Facility: [facility] Address: [address] [place] [address] Performed By: #### 5 7021-8 ####HOOD LABORATORYCLIA [id number] [address] MCV (RBC) [Entitic vol] 75.5 fL Low 80.0-100.0 [facility] Comment on above: Order Comment: Speci men Type: BLOOD SPECIMENOrdering Facility: [facility] Address: [address] [place] [address] Performed By: #### 5 7021-8 ####HOOD LABORATORYCLIA [id number] [place] [address] [place] Monocytes (Bld) [#/Vol] 7.51 10*3/uL High <0.87 [facility] Comment on above: Order Comment: Speci men Type: BLOOD SPECIMENOrdering Facility: [facility] Address: [address] [place] [address] Performed By: #### 5 7021-8 ####HOOD LABORATORYCLIA [id number] [address] Monocytes/100 WBC (Bld) 23.0 % Normal [facility] Comment on above: Order Comment: Speci men Type: BLOOD SPECIMENOrdering Facility: [facility] Address: [address] [place] [address] Performed By: #### 5 7021-8 ####HOOD LABORATORYCLIA [id number] [place] [address] [facility] [place] Neutrophils (Bld) [#/Vol] 24.49 10*3/uL High 1.45-7.50 [facility] Comment on above: Order Comment: Speci men Type: BLOOD SPECIMENOrdering Facility: [facility] Address: [address] [place] [address] Performed By: #### 5 7021-8 ####HOOD LABORATORYCLIA [id number] [address] STATES [facility] Neutrophils/100 WBC (Bld) 75.0 % Normal [facility] Comment on above: Order Comment: Speci men Type: BLOOD SPECIMENOrdering Facility: [facility] Address: [address] [place] [address] Performed By: #### 5 7021-8 ####HOOD LABORATORYCLIA [id number] [address] Nucleated RBC (Bld) [#/Vol] 10*3/uL Normal <0.01 [facility] Comment on above: Order Comment: Speci men Type: BLOOD SPECIMENOrdering Facility: [facility] Address: [address] [place] [address] Performed By: #### 5 7021-8 ####HOOD LABORATORYCLIA [id number] [address] Nucleated RBC/100 WBC (Bld) [Ratio] 0.0 /100 WBC Normal [facility] Comment on above: Order Comment: Speci men Type: BLOOD SPECIMENOrdering Facility: [facility] Address: [address] [place] [address] Performed By: #### 5 7021-8 ####HOOD LABORATORYCLIA [id number] [place] [address] [place] Ovalocytes LM Ql (Bld) Few Normal [facility] Comment on above: Order Comment: Speci men Type: BLOOD SPECIMENOrdering Facility: [facility] Address: [address] [place] [address] Performed By: #### 5 7021-8 ####HOOD LABORATORYCLIA [id number] [address] [place] Platelet mean volume (Bld) [Entitic vol] 11.9 fL Normal 9.0-12.7 [facility] Comment on above: Order Comment: Speci men Type: BLOOD SPECIMENOrdering Facility: [facility] Address: [address] [place] [address] Performed By: #### 5 7021-8 ####HOOD LABORATORYCLIA [id number] [place] [address] [place] Platelets (Bld) [#/Vol] 170 10*3/uL Normal 150-400 [facility] Comment on above: Order Comment: Speci men Type: BLOOD SPECIMENOrdering Facility: [facility] Address: [address] [place] [address] Performed By: #### 5 7021-8 ####HOOD LABORATORYCLIA [id number] [address] [place] Platelets Estimate (Bld) [#/Vol] Adequate Normal [facility] Comment on above: Order Comment: Speci men Type: BLOOD SPECIMENOrdering Facility: [facility] Address: [address] [place] [address] Performed By: #### 5 7021-8 ####HOOD LABORATORYCLIA [id number] [address] [place] Polychromasia LM Ql (Bld) Slight Normal [facility] Comment on above: Order Comment: Speci men Type: BLOOD SPECIMENOrdering Facility: [facility] Address: [address] [place] [address] Performed By: #### 5 7021-8 ####HOOD LABORATORYCLIA [id number] [place] [address] [place] RBC (Bld) [#/Vol] 3.06 10*6/uL Low 4.20-6.00 [facility] Comment on above: Order Comment: Speci men Type: BLOOD SPECIMENOrdering Facility: [facility] Address: [address] [place] [address] Performed By: #### 5 7021-8 ####HOOD LABORATORYCLIA [id number] [address] OF [place] RED CELL MORPH Reviewed: see result s of individual morphologies Normal [facility] Comment on above: Order Comment: Speci men Type: BLOOD SPECIMENOrdering Facility: [facility] Address: [address] [place] [address] Performed By: #### 5 7021-8 ####WESTON LABORATORYCLIA [id number] [place] [address] [place] WBC (Bld) [#/Vol] 32.66 10*3/uL High 3.70-11.00 [facility] Comment on above: Order Comment: Speci men Type: BLOOD SPECIMENOrdering Facility: [facility] Address: [address] [place] [address] Result Comment: No c lot detected. Performed By: #### 5 7021-8 ####WESTON LABORATORYCLIA [id number] [place] [id number] [facility] OF PAT CONSULTon 11-30-2024 CONSULT [facility] CONSULT PROGon 11-30-2024 CONSULT [facility] Carbon dioxide, total [Moles /volume] in Central venous bloodOrdered By: Susannah Rivera on 11-30-2024 CO2 [Moles/Vol] 24.4 mmol/L 21.0-32.0 [facility] Chloride assayOrdered By: Barbra Rivera on 11-30-2024 Chloride [Moles/Vol] 88 mmol/L Low 98-108 [facility] Comprehensive Metabolic Prof ilon 11-30-2024 Albumin [Mass/Vol] 3.8 g/dL Normal 3.4-4.8 [facility] Comment on above: Performed By: #### L 100.0100, L500.4050, L501.2450, L503.6005 #### [facility] [address] [place], [address] Albumin/Globulin [Mass ratio] 1.5 {ratio} Normal 0.9-2.4 [facility] Comment on above: Performed By: #### L 100.0100, L500.4050, L501.2450, L503.6005 #### [facility] [address] [place], [address] ALK PHOS 75 U/L Normal 40-129 [facility] Comment on above: Performed By: #### L 100.0100, L500.4050, L501.2450, L503.6005 #### [facility] [address] [place], [address] ALT [Catalytic activity/Vol] 20 U/L Normal <=46 [facility] Comment on above: Performed By: #### L 100.0100, L500.4050, L501.2450, L503.6005 #### [facility] [address] [place], [address] AST [Catalytic activity/Vol] 36 U/L Normal <=37 [facility] Comment on above: Performed By: #### L 100.0100, L500.4050, L501.2450, L503.6005 #### [facility] [address] [place], [address] Bilirubin [Mass/Vol] 0.82 mg/dL Normal 0.00-1.30 [facility] Comment on above: Performed By: #### L 100.0100, L500.4050, L501.2450, L503.6005 #### [facility] [address] [place], [address] BUN/CRE 21.0 RATIO High 10-20 [facility] Comment on above: Performed By: #### L 100.0100, L500.4050, L501.2450, L503.6005 #### [facility] [address] [place], [address] Calcium [Mass/Vol] 8.4 mg/dL Normal 7.6-11.0 [facility] Comment on above: Performed By: #### L 100.0100, L500.4050, L501.2450, L503.6005 #### [facility] [address] [place], [address] Chloride [Moles/Vol] 88 mmol/L Low 98-108 [facility] Comment on above: Performed By: #### L 100.0100, L500.4050, L501.2450, L503.6005 #### [facility] [address] [place], [address] CO2 [Moles/Vol] 24.4 mmol/L Normal 21.0-32.0 [facility] Comment on above: Performed By: #### L 100.0100, L500.4050, L501.2450, L503.6005 #### [facility] [address] [place], [address] Creatinine [Mass/Vol] 0.76 mg/dL Normal 0.70-1.20 [facility] Comment on above: Performed By: #### L 100.0100, L500.4050, L501.2450, L503.6005 #### [facility] [address] [place], [address] ECRCL 75.72 ml/min Normal 50-250 [facility] Comment on above: Performed By: #### L 100.0100, L500.4050, L501.2450, L503.6005 #### [facility] [address] [place], [address] GAP 11 Normal 5-15 [facility] Comment on above: Performed By: #### L 100.0100, L500.4050, L501.2450, L503.6005 #### [facility] [address] [place], [address] GFR/1.73 sq M.predicted among non-blacks MDRD (S/P/Bld) [Vol rate/Area] 90 mL/min/{1.73_m2} Normal >60 [facility] Comment on above: Result Comment: mL/m in/1.73m2 CKD-EPI Creatinine Equation (2020) Performed By: #### L 100.0100, L500.4050, L501.2450, L503.6005 #### [facility] [address] [place], [address] Globulin (S) [Mass/Vol] 2.6 g/dL Normal 2.2-4.2 [facility] Comment on above: Performed By: #### L 100.0100, L500.4050, L501.2450, L503.6005 #### [facility] [address] [place], [address] Glucose [Mass/Vol] 118 mg/dL High 70-99 [facility] Comment on above: Performed By: #### L 100.0100, L500.4050, L501.2450, L503.6005 #### [facility] [address] [place], [address] Potassium [Moles/Vol] 4.2 mmol/L Normal 3.3-5.1 [facility] Comment on above: Performed By: #### L 100.0100, L500.4050, L501.2450, L503.6005 #### [facility] [address] [place], [address] Sodium [Moles/Vol] 123 mmol/L Low 133-145 [facility] Comment on above: Performed By: #### L 100.0100, L500.4050, L501.2450, L503.6005 #### [facility] [address] [place], [address] T PROT 6.4 g/dL Normal 5.9-8.4 [facility] Comment on above: Performed By: #### L 100.0100, L500.4050, L501.2450, L503.6005 #### [facility] [address] [place], [address] Urea nitrogen [Mass/Vol] 16 mg/dL Normal 4-19 [facility] Comment on above: Performed By: #### L 100.0100, L500.4050, L501.2450, L503.6005 #### [facility] [address] [place], [address] Comprehensive metabolic 2000 panelon 11-30-2024 Albumin [Mass/Vol] 3.9 g/dL Normal 3.9-4.9 [facility] Comment on above: Order Comment: Speci men Type: BLOOD SPECIMENOrdering Facility: [facility] Address: [address] [place] [address] Performed By: #### 1 9123-9, [id number], 69940-3, 3040-3, 67047-8 ####WESTON LABORATORYCLIA [id number] [place] [address] [place] ALP [Catalytic activity/Vol] 84 U/L Normal 38-113 [facility] Comment on above: Order Comment: Speci men Type: BLOOD SPECIMENOrdering Facility: [facility] Address: [address] [place] [address] Performed By: #### 1 9123-9, [id number], 12810-9, 3040-3, 46428-3 ####WESTON LABORATORYCLIA [id number] [address] [place] ALT [Catalytic activity/Vol] 19 U/L Normal 10-54 [facility] Comment on above: Order Comment: Speci men Type: BLOOD SPECIMENOrdering Facility: [facility] Address: [address] [place] [id number] Performed By: #### 1 9123-9, [id number], 61639-8, 3040-3, 67018-1 ####WESTON LABORATORYCLIA [id number] [place] [address] [place] Anion gap [Moles/Vol] 12 mmol/L Normal 8-15 [facility] Comment on above: Order Comment: Speci men Type: BLOOD SPECIMENOrdering Facility: [facility] Address: [address] [place] [address] Performed By: #### 1 9123-9, [id number], 96224-9, 3040-3, 47760-2 ####WESTON LABORATORYCLIA [id number] [place] [address] [place] AST [Catalytic activity/Vol] 31 U/L Normal 14-40 [facility] Comment on above: Order Comment: Speci men Type: BLOOD SPECIMENOrdering Facility: [facility] Address: [facility] [place] [address] Performed By: #### 1 9123-9, [id number], 91903-2, 3040-3, 00504-1 ####WESTON LABORATORYCLIA [id number] [place] [address] [place] Bilirubin [Mass/Vol] 0.9 mg/dL Normal 0.2-1.3 [facility] Comment on above: Order Comment: Speci men Type: BLOOD SPECIMENOrdering Facility: [facility] Address: [facility] [place] [address] Performed By: #### 1 9123-9, [id number], 32348-1, 3040-3, 05304-4 ####WESTON LABORATORYCLIA [id number] [place] [address] [place] Calcium [Mass/Vol] 8.2 mg/dL Low 8.5-10.2 [facility] Comment on above: Order Comment: Speci men Type: BLOOD SPECIMENOrdering Facility: [facility] Address: [facility] [place] [address] Performed By: #### 1 9123-9, [id number], 94273-5, 3040-3, 22771-7 ####WESTON LABORATORYCLIA [id number] [place] [id number] [place] Chloride [Moles/Vol] 91 mmol/L Low 98-107 [facility] Comment on above: Order Comment: Speci men Type: BLOOD SPECIMENOrdering Facility: [facility] Address: [facility] [place] [address] Performed By: #### 1 9123-9, [id number], 80005-2, 3040-3, 79035-8 ####WESTON LABORATORYCLIA [id number] [place] [address] [place] CO2 [Moles/Vol] 23 mmol/L Normal 22-30 [facility] Comment on above: Order Comment: Speci men Type: BLOOD SPECIMENOrdering Facility: [facility] Address: [address] [place] [address] Performed By: #### 1 9123-9, [id number], 89884-6, 3040-3, 41870-7 ####WESTON LABORATORYCLIA [id number] [place] [address] [place] Creatinine [Mass/Vol] 0.67 mg/dL Low 0.73-1.22 [facility] Comment on above: Order Comment: Speci men Type: BLOOD SPECIMENOrdering Facility: [facility] Address: [address] [place] [address] Performed By: #### 1 9123-9, [id number], 09210-1, 3040-3, 07942-3 ####WESTON LABORATORYCLIA [id number] [place] [id number] [place] eGFRcr SerPlBld CKD-EPI 2020 94 mL/min/1.73m??? Normal >=60 [facility] Comment on above: Order Comment: Speci men Type: BLOOD SPECIMENOrdering Facility: [facility] Address: [address] [place] [address] Result Comment: Kimberlyn mated Glomerular Filtration Rate (eGFR) is calculated using the 2020 CKD-EPI creatinine equation. This equation utilizes serum creatinine, sex, and age as parameters. The creatinine assay has traceable calibration to isotope dilution-mass spectrometry. Refer to KDIGO guidelines for clinical interpretation. In patients with unstable renal function, e.g. those with acute kidney injury, the eGFR may not accurately reflect actual GFR. Performed By: #### 1 9123-9, NQA4769, 18665-2, 3040-3, 24076-7 ####WESTON LABORATORYCLIA [id number] [place] [address] [place] Glucose [Mass/Vol] 107 mg/dL High 74-99 [facility] Comment on above: Order Comment: Yogi byrd Type: BLOOD SPECIMENOrdering Facility: [facility] Address: [address] [place] [address] Result Comment: The [place] Diabetes Association (ADA) provides guidance for cutoff values for fasting glucose and random glucose. The ADA defines fasting as no caloric intake for at least 8 hours. Fasting plasma glucose results between 100 to 125 mg/dL indicate increased risk for diabetes (prediabetes).Fasting plasma glucose results greater than or equal to 126 mg/dL meet the criteria for diagnosis of diabetes. In the absence of unequivocal hyperglycemia, results should be confirmed by repeat testing. In a patient with classic symptoms of hyperglycemia or hyperglycemic crisis, random plasma glucose results greater than or equal to 200 mg/dL meet the criteria for diagnosis of diabetes.Reference: Standards of Medical Care in Diabetes 2016, [employer] Diabetes Association. Diabetes Care. 2016.39(Suppl 1). Performed By: #### 1 9123-9, MQE7566, 89289-1, 3040-3, 45604-5 ####WESTON LABORATORYCLIA [id number] [place] [address] [place] Potassium [Moles/Vol] 4.0 mmol/L Normal 3.7-5.1 [facility] Comment on above: Order Comment: Yogi byrd Type: BLOOD SPECIMENOrdering Facility: [facility] Address: [address] [place] [address] Performed By: #### 1 9123-9, [id number], 16729-9, 3040-3, 17988-1 ####[facility]ST[facility] LABORATORYCLIA [id number] [place] [id number] [place] Protein [Mass/Vol] 7.2 g/dL Normal 6.3-8.0 [facility] Comment on above: Order Comment: Yogi byrd Type: BLOOD SPECIMENOrdering Facility: [facility] Address: [address] [place], [place] [address] Performed By: #### 1 9123-9, [id number], 72701-4, 3040-3, 82694-0 ####HOOD LABORATORYCLIA [id number] [place] [address] [place] Sodium [Moles/Vol] 126 mmol/L Low 136-144 [facility] Comment on above: Order Comment: Speci men Type: BLOOD SPECIMENOrdering Facility: [facility] Address: [facility] [place] [address] Performed By: #### 1 9123-9, [id number], 68899-9, 3040-3, 23997-5 ####HOOD LABORATORYCLIA [id number] [address] Urea nitrogen [Mass/Vol] 14 mg/dL Normal 9-24 [facility] Comment on above: Order Comment: Speci men Type: BLOOD SPECIMENOrdering Facility: [facility] Address: [address] [place] [address] Performed By: #### 1 9123-9, [id number], 47322-1, 3040-3, 30592-9 ####WESTON LABORATORYCLIA [id number] [address] ED NOTEon 11-30-2024 ED NOTE HNO ID: [id number] Author: SHANNAN MITCHELL RN Service: ? Author Type: Registered Nurse Type: ED Notes Filed: 11/30/2024 19:36 Note Text: Heads up called [facility] charge nurse (Spoke with Mira) [facility] ED NOTE HNO ID: [id number] Author: SHANNAN MITCHELL RN Service: ? Author Type: Registered Nurse Type: ED Notes Filed: 11/30/2024 17:07 Note Text: Bed: ED-04 Expected date: 11/30/24 Expected time: Means of arrival: Comments: Physicians Normal [facility] ED PROV NOTEon 11-30-2024 ED PROV NOTE Normal [facility] Emergency Department Summary on 11-30-2024 Emergency Department Summary [facility] Medical Records Department [address] [place] [address] Emergency Department Summary 11/30/24 MR#: [id number] Acct: [id number] Name: JAYDEN CRAIG Rep #: [id number] : 1940 83 From: Susannah Rivera DO PCP: Dr. Eloisa Espinla MD Status:DEP ER Location: ED HPI HPI - GI History of Present Illness Chief Complaint: Abd Pain Detail of Chief Complaint: Abdominal pain Informant: patient Narrative Narrative: Patient presents with abdominal pain for several weeks. He states that he had abdominal surgery at my [facility] by Dr. López 5 days ago. Patient has not had a bowel movement in 6 days. He took 2 days of oxycodone for pain. He said decreased appetite. Urine is more dark than usual although he denies dysuria. He has not had a fever. Currently on aspirin and Plavix. Patient's had some mild nausea but no vomiting. 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 Acquired hypothyroidism Abdominal wall hernia Atherosclerosis of coronary artery of [place] heart without angina pectoris Hiatal hernia Hypothyroidism Escobedo's esophagus GERD (gastroesophageal reflux disease) DDD (degenerative disc disease), lumbar Home Medications ???Medication ???Instructions ???Recorded ???Last Taken ???Type acetaminophen 325 mg tablet 650 mg PO Q4H PRN Pain Or Fever Unknown History aspirin 81 mg tablet,delayed 81 mg PO DAILY 12/09/18 08/06/24 H istory release (Adult Aspirin Regimen) magnesium oxide 400 mg PO DAILY 12/09/18 07/03/24 History multivitamin 1 tab PO QAM 12/09/18 Unknown Hist ory pantoprazole 40 mg tablet,delayed 40 mg PO BID 12/09/18 07/03/24 Hi story release simvastatin 80 mg tablet 80 mg PO QHS cholesterol 12/09/18 Unknown History fluticasone propionate 50 2 ea intranasal BID stuffiness 08/0307/03/24 History mcg/actuation nasal spray,suspension ibuprofen 200 mg tablet 200 mg PO Q6H PRN pain #30 tabs Unknown Rx levothyroxine 175 mcg tablet 175 mcg PO DAILY disorder of 06/2908/06/24 History thyroid gland tamsulosin 0.4 mg capsule 0.4 mg PO QHS 06/30/23 Unknown His tory albuterol sulfate 90 mcg/actuation 2 puff inhalation Q4-6H PRN 06/06 Unknown History aerosol inhaler shortness of breath or wheezing clopidogrel 75 mg tablet 75 mg PO DAILY #30 tabs 07/03/24 0 08/06/24 Rx fluticasone furoate 200 inhalation QDAY 11/11/24 Unknown H istory mcg-vilanterol 25 mcg/dose inhalation powder (Breo Ellipta) metoprolol tartrate 50 mg tablet 50 mg PO BID #180 tabs 11/11/24 Un known Rx Allergy/AdvReac Type Severity Reaction Status Date / Time cefdinir (From Omnicef) Allergy Intermediate Diarrhea Verified 11/30/24 10:33 atorvastatin AdvReac Intermediate myalgias Verified 11/30/24 10:33 azithromycin (From Zithromax) AdvReac Nausea/Vom/ Verified 11/30/24 10:33 Diarrhea Family History Mother Emphysema of lung Father Emphysema of lung Surgical History History of ventral hernia repair Hx laparoscopic cholecystectomy History of repair of hiatal hernia History of umbilical hernia repair 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) History of back surgery ( 04/25/17) Social History Smoking Status: Former smoker quit date: 02/12/81 pack-years: 13 Tobacco: How many years used: 27 Electronic Cigarette Use: not used how long ago did patient quit smokin years ago alcohol intake: former substance use type: does not use ROS ROS ED Review of Systems ROS Unobtainable: other Constitutional Constitutional ED: Reports lethargy; Denies chills, fever(s), sweats or weight loss Eyes Eyes: Denies blurry vision, change in vision or diplopia ENT ENT ED: Denies rhinorrhea or sore throat Cardiovascular Cardiovascular: Denies chest pain, orthopnea or racing heartbeat Respiratory/Chest Respiratory/Chest: Denies cough, dyspnea, dyspnea on exertion, orthopnea or sputum Gastrointestinal Gastrointestinal: Reports abdominal pain and nausea; Denies diarrhea or vomiting Genitourinary Genitourinary ED: Denies dysuria, hematuria or urinary frequency Musculoskeletal Musculoskeletal: Denies arthralgias, back pain, myalgias or neck pain Integumentary (more content not included)... Normal [facility] Eosinophil percentageOrdered By: Remus Ungur on 11-30-2024 Eosinophils/100 WBC (Bld) 0.2 % 0-5 [facility] Erythrocyte distribution wid th ratioOrdered By: Remus Ungur on 11-30-2024 Erythrocyte distribution width (RBC) [Ratio] 18.1 % High 11.6-14.6 [facility] Erythrocyte distribution wid th standard deviationOrdered By: Remus Ungur on 11-30-2024 Erythrocyte distribution width (RBC) [Ratio] 47.1 fl High 35.1-43.9 [facility] Gas and Carbon monoxide pane l (BldV)on 11-30-2024 Base excess Calc (BldV) [Moles/Vol] 1 mmol/L Normal 0-2 [facility] Comment on above: Order Comment: Speci men Type: VENOUS BLOOD SPECIMENOrdering Facility: [facility] Address: [address] [place] [address] Performed By: #### 2 4344-4 ####[facility] [id number] [facility] [id number] [address] [address] Calcium.ionized (Bld) [Mass/Vol] 1.09 mmol/L Normal 1.08-1.30 [facility] Comment on above: Order Comment: Speci men Type: VENOUS BLOOD SPECIMENOrdering Facility: [facility] Address: [address] [place] [address] Performed By: #### 2 4344-4 ####[facility] [id number] [facility] [id number] [address] [address] Carboxyhemoglobin (BldV) [Mass fraction] 1.5 % Normal 0.0-2.0 [facility] Comment on above: Order Comment: Speci men Type: VENOUS BLOOD SPECIMENOrdering Facility: [facility] Address: [address] [place] [address] Result Comment: Carb oxyhemoglobin Reference Range for Smokers: 2.0-8.0% Performed By: #### 2 4344-4 ####[facility] RESPIRATORYCLIA [id number] [facility] [id number] [address] [address] CO2 (BldV) [Partial pressure] 42 mm[Hg] Normal 42-55 [facility] Comment on above: Order Comment: Speci men Type: VENOUS BLOOD SPECIMENOrdering Facility: [facility] Address: [address] [place] [address] Performed By: #### 2 4344-4 ####[facility] RESPIRATORYCLIA [id number] [facility] [id number] [address] [address] CO2 adjusted to patient's actual temperature (BldV) [Partial pressure] Normal [facility] Comment on above: Order Comment: Speci men Type: VENOUS BLOOD SPECIMENOrdering Facility: [facility] Address: [address] [place] [address] Performed By: #### 2 4344-4 ####[facility] RESPIRATORYIA [id number] [facility] [id number] [address] [address] HCO3 (Bld) [Moles/Vol] 26 mmol/L Normal 24-28 [facility] Comment on above: Order Comment: Speci men Type: VENOUS BLOOD SPECIMENOrdering Facility: [facility] Address: [address] [place] [address] Performed By: #### 2 4344-4 ####[facility] RESPIRATORYCLIA [id number] [facility] [id number] [address] [address] Hemoglobin (Bld) [Mass/Vol] 7.6 g/dL Low 13.0-17.0 [facility] Comment on above: Order Comment: Speci men Type: VENOUS BLOOD SPECIMENOrdering Facility: [facility] Address: [address] [place] [address] Performed By: #### 2 4344-4 ####[facility] [id number] [facility] [id number] [address] [address] Lactate [Moles/Vol] 1.2 mmol/L Normal 0.5-2.2 [facility] Comment on above: Order Comment: Speci men Type: VENOUS BLOOD SPECIMENOrdering Facility: [facility] Address: [address] [place] [address] Performed By: #### 2 4344-4 ####[facility] RESPIRATORYCLIA [id number] [facility] [id number] [address] Methemoglobin (Bld) [Mass fraction] % Normal 0.0-1.5 [facility] Comment on above: Order Comment: Speci men Type: VENOUS BLOOD SPECIMENOrdering Facility: [facility] Address: [address] [place] [address] Performed By: #### 2 4344-4 ####[facility] [id number] [facility]PIRAT[facility] [id number] [address] O2 THERAPY RA=Room Air [facility] Comment on above: Order Comment: Speci men Type: VENOUS BLOOD SPECIMENOrdering Facility: [facility] Address: [address] [place] [address] Performed By: #### 2 4344-4 ####[facility] [id number] [facility] RESPIR[facility] [id number] [address] [address] Oxygen (BldV) [Partial pressure] mm[Hg] Low 35-45 [facility] Comment on above: Order Comment: Speci men Type: VENOUS BLOOD SPECIMENOrdering Facility: [facility] Address: [address] [place] [address] Performed By: #### 2 4344-4 ####[facility] RESPIRATORYIA [id number] [facility] [id number] [address] [address] Oxygen adjusted to patient's actual temperature (BldV) [Partial pressure] Normal [facility] Comment on above: Order Comment: Speci men Type: VENOUS BLOOD SPECIMENOrdering Facility: [facility] Address: [address] [place] [address] Performed By: #### 2 4344-4 ####[facility] RESPIRATORYIA [id number] [facility] RES[facility]AT[facility] [id number] [address] Oxygen saturation in Venous blood 9 % Low 60-85 [facility] Comment on above: Order Comment: Speci men Type: VENOUS BLOOD SPECIMENOrdering Facility: [facility] Address: [address] [place] [address] Performed By: #### 2 4344-4 ####[facility] RESPIRATORYIA [id number] [facility] RESPIRAT[facility] [id number] [address] [address] Oxyhemoglobin (BldV) [Mass fraction] 9 % Low 60-85 [facility] Comment on above: Order Comment: Speci men Type: VENOUS BLOOD SPECIMENOrdering Facility: [facility] Address: [address] [place] [address] Performed By: #### 2 4344-4 ####[facility] [id number] [facility] RESPIR[facility] [id number] [address] [address] pH (BldV) 7.40 [pH] Normal 7.32-7.42 [facility] Comment on above: Order Comment: Speci men Type: VENOUS BLOOD SPECIMENOrdering Facility: [facility] Address: [address] [place] [address] Performed By: #### 2 4344-4 ####[facility] [id number] [facility] RESPIRAT[facility] [id number] [address] [address] pH adjusted to patient's actual temperature (BldV) Normal [facility] Comment on above: Order Comment: Speci men Type: VENOUS BLOOD SPECIMENOrdering Facility: [facility] Address: [address] [place] [address] Performed By: #### 2 4344-4 ####[facility] RESPIRATORYIA [id number] [facility] RES[facility] [id number] [address] [address] Potassium [Moles/Vol] 3.9 mmol/L Normal 3.5-5.0 [facility] Comment on above: Order Comment: Speci men Type: VENOUS BLOOD SPECIMENOrdering Facility: [facility] Address: [address] [place] [address] Performed By: #### 2 4344-4 ####[facility] RESPIRATORYCLIA [id number] [facility] RES[facility] [id number] [address] [address] Glomerular filtration rate ( GFR) estimation/1.73 sq m using serum, plasma, or whole bOrdered By: Susannah Rivera on 11-30-2024 GFR/1.73 sq M.predicted among non-blacks MDRD (S/P/Bld) [Vol rate/Area] 90 mL/min/{1.73_m2} >60 [facility] Comment on above: mL/min/1.73m2 CKD-EP I Creatinine Equation (2020) HIGH SENSITIVITY TROPONIN T (INITIAL)on 11-30-2024 Troponin T.cardiac High sensitivity method [Mass/Vol] 33 ng/L High <12 [facility] Comment on above: Order Comment: Yogi byrd Type: BLOOD SPECIMENOrdering Facility: [facility] Address: [address] [place] [address] Performed By: #### 1 9123-9, [id number], 74606-1, 3040-3, 21330-6 ####[facility] LABORATORYCLIA [id number] [place] [address] [place] HIGH SENSITIVITY TROPONIN T (SECOND)on 11-30-2024 Troponin T.cardiac High sensitivity method [Mass/Vol] 27 ng/L High <[address] [place] [address] Comment on above: Order Comment: Yogi byrd Type: BLOOD SPECIMENOrdering Facility: [facility] Address: [address] [place] [address] Performed By: #### L [id number] ####[facility] LABORATORYCLIA [id number] [place] [address] [facility] HIGH SENSITIVITY TROPONIN T (THIRD) 3 HRS AFTER INITIALon 11-30-2024 Troponin T.cardiac High sensitivity method [Mass/Vol] 29 ng/L High <[address] [place] [address] Comment on above: Order Comment: Yogi byrd Type: BLOOD SPECIMENOrdering Facility: [facility] Address: [address] [place] [address] Performed By: #### L [id number] ####[facility] LABORATORYCLIA [id number] [place] [address] [place] Hematocrit Auto (Bld) [Volum e fraction]Ordered By: Susannah Rivera on 11-30-2024 Hematocrit (Bld) [Volume fraction] 21.6 % Low 40-54 [facility] Hemoglobin measurementOrdere d By: Susannah Rivera on 11-30-2024 Hemoglobin (Bld) [Mass/Vol] 6.9 g/dL Low 13.0-16.5 [facility] Immature granulocytes/100 WB C Auto (Bld)Ordered By: Susannah Rivera on 11-30-2024 Immature granulocytes/100 WBC (Bld) 2.900 % High 0.0-0.9 [facility] Comment on above: IG% - Immature Granu locytes (promyelocytes, myelocytes and metamyelocytes) > 1% indicates that a LEFT SHIFT is Present. Ketones Test strip Ql (U)Ord ered By: Susannah Rivera on 11-30-2024 Ketones Ql (U) 5 mg/dl High Negative [facility] Laboratory - Chemistry and C hemistry - challengeOrdered By: Susannah Rivera on 11-30-2024 AST [Catalytic activity/Vol] 36 U/L <38 [facility] Lactic Acidon 11-30-2024 Lactate [Moles/Vol] 1.2 mmol/L Normal 0.0-2.0 [facility] Comment on above: Order Comment: Y Performed By: #### L 100.0100, L500.4050, L501.2450, L503.6005 #### [facility] Laboratory [address] [place], [place], [id number] Lactic acid measurementOrder ed By: Susannah Rivera on 11-30-2024 Lactate [Moles/Vol] 1.2 mmol/L 0.0-2.0 [facility] Lipaseon 11-30-2024 Lipase [Catalytic activity/Vol] 89 U/L High 13-75 [facility] Comment on above: Result Comment: Jeronimo parkinson note: LIPASE revised reference range effective 22. New Lipase methodology. Expected to produce lower values than the previous assay method. NEW Reference Range: 13 - 75 U/L Performed By: #### L 100.0100, L500.4050, L501.2450, L503.6005 #### [facility] [address] [place], [address] Lipase SerPl-cCncon 12-01-19 25 Lipase [Catalytic activity/Vol] 91 U/L High 16-61 [facility] Comment on above: Order Comment: Speci men Type: BLOOD SPECIMENOrdering Facility: [facility] Address: [address] [place] [address] Performed By: #### 1 9123-9, [id number], 06199-8, 3040-3, 74433-0 ####[facility] LABORATORYCLIA [id number] [address] OF [facility] Lipase measurementOrdered By : Remus Ungur on 11-30-2024 Lipase [Catalytic activity/Vol] 89 U/L High 13-75 [facility] Comment on above: Please note:LIPASE r evised reference range effective 22. New Lipase methodology. Expected to produce lower values than the previous assay method. NEW Reference Range: 13 - 75 U/L MCV (mean corpuscular volume ) determinationOrdered By: Remus Ungcece on 11-30-2024 MCV (RBC) [Entitic vol] 74.2 fL Low 80-94 [facility] Magnesium SerPl-mCncon 11-30 Magnesium [Mass/Vol] 2.7 mg/dL High 1.7-2.3 [facility] Comment on above: Order Comment: Speci men Type: BLOOD SPECIMENOrdering Facility: [facility] Address: [address] [place] [address] Performed By: #### 1 9123-9, [id number], 65696-9, 3040-3, 30023-9 ####[facility] LABORATORYCLIA [id number] [address] Mean corpuscular hemoglobin (MCH) determinationOrdered By: Remus Ungur on 11-30-2024 MCH (RBC) [Entitic mass] 23.7 pg Low 27.0-32.0 [facility] Mean corpuscular hemoglobin concentration (MCHC) determinationOrdered By: Susannah Rivera on 11-30-2024 MCHC (RBC) [Mass/Vol] 31.9 g/dL Low 32-36 [facility] Mean platelet volume determi nationOrdered By: Susannah Rivera on 11-30-2024 Platelet mean volume (Bld) [Entitic vol] 12.1 fL High 6.2-12.0 [facility] Microscopic analysis of urin e for red blood cells (RBC)Ordered By: Susannah Rivera on 11-30-2024 Microscopic analysis of urine for red blood cells (RBC) 0-5 SEEN /hpf 0-5 [facility] Monocyte percentageOrdered B y: Susannah Rivera on 11-30-2024 Monocytes/100 WBC (Bld) 28.5 % High 0-10 [facility] Mucus LM Ql (Urine sed)Order ed By: Susannah Rivera on 11-30-2024 Mucus Ql (Urine sed) 2+ /hpf [facility] NT-proBNP SerPl-mCncon 11-30 Natriuretic peptide.B prohormone N-Terminal [Mass/Vol] 1006 pg/mL High <450 [facility] Comment on above: Order Comment: Speci men Type: BLOOD SPECIMENOrdering Facility: [facility] Address: [address] [place] [address] Performed By: #### 1 9123-9, [id number], 88904-9, 3040-3, 24591-8 ####[facility] LABORATORYCLIA [id number] [place] [address] [place] Neutrophil percentageOrdered By: Susannah Rivera on 11-30-2024 Neutrophils/100 WBC (Bld) 67.2 % 47-70 [facility] Nitrite Test strip Ql (U)Ord ered By: Susannah Rivera on 11-30-2024 Nitrite Ql (U) Negative Negative [facility] Nucleated red blood cell per centageOrdered By: Susannah Rivera on 11-30-2024 Nucleated RBC/100 WBC (Bld) [Ratio] 0.1 % 0-5 [facility] PT panel Coag (PPP)on 2024 INR Coag (PPP) [Relative time] 1.1 {INR} Normal 0.9-1.3 [facility] Comment on above: Order Comment: Yogi byrd Type: BLOOD SPECIMENOrdering Facility: [facility] Address: [address] [place] [id number] Result Comment: Hilda min K Antagonist (VKA) Therapeutic Range: INR 2 to 3 (Target INR of 2.5)Note: For patients treated with VKA drugs, such as warfarin, the [employer] 2012 Guideline recommends a therapeutic INR range of 2 to 3 (target INR of 2.5). This recommendation includes high-risk patients with antiphospholipid syndrome with previous arterial or venous thromboembolism, current-generation mechanical or bioprosthetic aortic heart valve replacement.Note: Patients with mechanical aortic valve replacement and additional risk factors for thromboembolic events (atrial fibrillation, previous thromboembolism, LV dysfunction, hypercoagulable conditions) or an older generation mechanical AVR (i.e., ball in-Cage) or any mechanical MVR should have a INR therapeutic range of 2.5 to 3.5 (target INR of 3).Kely GH, et al. Chest 2012, 141:7S-47SNishimura RA, et al. [facility] 2017, 70: 252-289 Performed By: #### 3 4528-0, 86024-6 ####[facility] LABORATORYCLIA [id number] [place] [address] [place] PT Coag (PPP) [Time] 11.0 s Normal 9.7-13.0 [facility] Comment on above: Order Comment: Yogi byrd Type: BLOOD SPECIMENOrdering Facility: [facility] Address: [address] [place] [address] Performed By: #### 3 4528-0, 15273-7 ####[facility] LABORATORYCLIA [id number] [place] [address] [place] Platelet countOrdered By: Barbra Rivera on 11-30-2024 Platelets (Bld) [#/Vol] 154 10*3/uL 150-450 [facility] Potassium measurement (mass/ volume)Ordered By: Susannah Rivera on 11-30-2024 Potassium (Unsp spec) [Mass/Vol] 4.2 mmol/L 3.3-5.1 [facility] Protein Test strip Ql (U)Ord ered By: Susannah Rivera on 11-30-2024 Protein Ql (U) 30 mg/dl High Negative [facility] RBC Auto (Bld) [#/Vol]Ordere d By: Susannah Rivera on 11-30-2024 RBC (Bld) [#/Vol] 2.91 10*6/uL Low 4.6-6.2 [facility] Review by pathologistOrdered By: Susannah Rivera on 11-30-2024 Pathologist review Edi (Unsp spec) [Interp] Reviewed [facility] Comment on above: Previous reported re sult: Angelica elizondo Edited by: JOHNNY on 12/01/24:1346LEUKOCYTOSIS WITH NEUTROPHILIA, MONOCYTOSIS AND ABSOLUTE LYMPHOPENIA. MANUAL DIFFERENTIAL CONFIRMS THE AUTOMATED DIFFERENTIAL COUNT.MICROCYTIC LYMPHOCHROMIC ANEMIA WITH OCCASIONAL ACANTHOCYTES, TARGET CELLS, AND OVALOCYTES, AND MILD ANISOCYTOSIS.PLATELETS ADEQUATE.Connie Ventura MD 12/01/2024 AMENDED REPORT 12/01/24 1346 PATH REV previously reported as: Angelica elizondo Serum creatinine measurement (mass/volume)Ordered By: Susannah Rivera on 11-30-2024 Creatinine [Mass/Vol] 0.76 mg/dL 0.70-1.20 [facility] Serum globulin measurementOr dered By: Susannah Rivera on 11-30-2024 Globulin (S) [Mass/Vol] 2.6 g/dL 2.2-4.2 [facility] Serum glucose measurement (m ass/volume)Ordered By: Susannah Rivera on 11-30-2024 Glucose [Mass/Vol] 118 mg/dL High 70-99 [facility] Serum or plasma alanine jack otransferase (ALT) measurementOrdered By: Susannah Rivera on 11-30-2024 ALT [Catalytic activity/Vol] 20 U/L <47 [facility] Serum or plasma albumin tamara urement (mass/volume)Ordered By: Susannah Rivera on 11-30-2024 Albumin [Mass/Vol] 3.8 g/dL 3.4-4.8 [facility] Serum or plasma albumin/glob ulin mass ratioOrdered By: Susannah Rivera on 11-30-2024 Albumin/Globulin [Mass ratio] 1.5 {ratio} 0.9-2.4 [facility] Serum or plasma alkaline khloe sphatase measurementOrdered By: Susannah Rivera on 11-30-2024 ALP [Catalytic activity/Vol] 75 U/L 40-129 [facility] Serum or plasma calcium tamara urement (mass/volume)Ordered By: Susannah Rivera on 11-30-2024 Calcium [Mass/Vol] 8.4 mg/dL 7.6-11.0 [facility] Serum or plasma urea nitroge n measurement (mass/volume)Ordered By: Susannah Rivera on 11-30-2024 Urea nitrogen [Mass/Vol] 16 mg/dL 4-19 [facility] Sodium levelOrdered By: Ceci Rivera on 11-30-2024 Sodium [Moles/Vol] 123 mmol/L Low 133-145 [facility] Squamous epithelial cells de tection in urine sediment by light microscopyOrdered By: Susannah Rivera on 11-30-2024 Epithelial cells.squamous LM Ql (Urine sed) 0-5 SEEN /hpf 0-5 [facility] TYPE + SCREENon 11-30-2024 ABO O [facility] Comment on above: Order Comment: Speci men Type: BLOOD SPECIMENOrdering Facility: [facility] Address: [address] [place] [address] Performed By: #### L [id number], TSCR, %RICARDO ####[facility] BLOOD BANKCLIA [id number] [address] OF [facility] Rh Nom (Bld) Positive [facility] Comment on above: Order Comment: Speci men Type: BLOOD SPECIMENOrdering Facility: [facility] Address: [address] [place] [address] Performed By: #### L [id number], TSCR, %RICARDO ####[facility] BLOOD BANKCLIA [id number] [address] TYPE AND SCREEN EXPIRATION 12/03/2024 23:59 Normal [facility] Comment on above: Order Comment: Speci men Type: BLOOD SPECIMENOrdering Facility: [facility] Address: [address] [place] [address] Performed By: #### L [id number], TSCR, %RICARDO ####[facility] BLOOD BANKCLIA [id number] [place] [address] [facility] Total proteinOrdered By: Chanell Rivera on 11-30-2024 Protein [Mass/Vol] 6.4 g/dL 5.9-8.4 [facility] Urinalysis, Completeon 11-30 BACTERIA 3+ /hpf Normal None Seen [facility] Comment on above: Order Comment: CLEAN CATCH Performed By: #### L 400.0001 #### [facility] Laboratory [address] [place], [address] EPI,SQUAMOUS 0-5 SEEN Normal 0-5 [facility] Comment on above: Order Comment: CLEAN CATCH Performed By: #### L 400.0001 #### [facility] [address] [place], [address] Mucus Ql (Urine sed) 2+ /hpf Normal [facility] Comment on above: Order Comment: CLEAN CATCH Performed By: #### L 400.0001 #### [facility] [address] [place], [address] RBC 0-5 SEEN Normal 0-5 [facility] Comment on above: Order Comment: CLEAN CATCH Performed By: #### L 400.0001 #### [facility] Laboratory [address] [place], [address] WBC 5-10 SEEN Normal 0-5 [facility] Comment on above: Order Comment: CLEAN CATCH Performed By: #### L 400.0001 #### [facility] [address] [place], [address] Urine clarityOrdered By: Chanell gallego Ungcece on 11-30-2024 Clarity (U) Clear Clear [facility] Urine color determinationOrd ered By: Chanellus Nicole on 11-30-2024 Color (U) Yellow Yellow [facility] Urine glucose detectionOrder ed By: Susannah Rivera on 11-30-2024 Glucose Ql (U) Normal mg/dl Normal [facility] Urine leukocyte esterase det ection by dipstickOrdered By: Susannah Rivera on 11-30-2024 Leukocyte esterase Test strip Ql (U) 25 /ul High Negative [facility] Urine pHOrdered By: Susannah Un gur on 11-30-2024 pH (U) 6.5 [pH] 5.0 - 8.0 [facility] Urine sediment bacteria coun t by microscopy (number/high power field)Ordered By: Susannah Rivera on 11-30-2024 Bacteria LM.HPF (Urine sed) [#/Area] 3 /[HPF] None Seen [facility] Urine specific gravity measu rementOrdered By: Susannah Rivera on 11-30-2024 Specific gravity (U) [Rel density] 1.020 1.002-1.030 [facility] Urine urobilinogen measureme ntOrdered By: Susannah Rivera on 11-30-2024 Urobilinogen Ql (U) 1 mg/dl High Normal [facility] White blood cell (WBC) count Ordered By: Susannah Rivera on 11-30-2024 WBC (Bld) [#/Vol] 37.0 10*3/uL Critically high 4.4-11.0 [facility] Comment on above: CRITICAL VALUE MCKINNEY D TO GALILEA LIMON (ER)11/30/24 1206 Aniya Gayle.RESULTS READ BACK BY SAME. White blood cell countOrdere d By: Susannah Rivera on 11-30-2024 White blood cell count 5-10 SEEN /hpf 0-5 [facility] XR CHEST 1V FRONTAL PORTon 1 XR CHEST 1V FRONTAL PORT Normal [facility] aPTT PPPon 11-30-2024 aPTT Coag (PPP) [Time] 27.8 s Normal 23.0-32.4 [facility] Comment on above: Order Comment: Speci men Type: BLOOD SPECIMENOrdering Facility: [facility] Address: [address] [place] [address] Performed By: #### 3 4528-0, 99508-8 ####[facility]ORYCLIA [id number] [place] [address] [place] ANES POSTPROC EVALon 10-14-2 025 ANES POSTPROC EVAL Normal [facility] ANES PRE-OPon 11-25-2024 ANES PRE-OP Normal [facility] BRIEF OP NOTon 11-25-2024 BRIEF OP NOT [facility] HISTORY PHYSICALon HISTORY PHYSICAL Normal [facility] OPERATIVE NOon 11-25-2024 OPERATIVE NO Normal [facility] Pathology biopsy report Edi (Tiss)on 11-25-2024 AP DISCLAIMER Normal [facility] Comment on above: Order Comment: Speci men Type: TISSUE SPECIMENOrdering Facility: [facility] Address: [address] [place] [address] Result Comment: Dinah zimmerman Developed Test (LDT) Disclaimer:Performance characteristics of immunohistochemical, immunofluorescent, and chromogenic in-situ hybridization tests have been determined by the performing laboratory within the [facility] Department of Pathology and Laboratory Medicine ([facility], [facility], [facility], [facility], [facility], [facility], or [facility]) in a manner consistent with CLIA requirements. One or more of these tests may not have been cleared or approved by the FDA. The [facility] Department of Pathology and Laboratory Medicine is regulated under CLIA as qualified to perform high-complexity testing. These tests are used for clinical purposes. These should not be regarded as investigational or for research. Positive and negative controls stain appropriately. Performed By: #### 6 6121-5 ####[facility] LABCLIA [id number] [place] [address] [place] CASE REPORT Normal [facility] Comment on above: Order Comment: Speci men Type: TISSUE SPECIMENOrdering Facility: [facility] Address: [address] [place] [address] Result Comment: Surg ica Pathology Report Case: [id number] Provider: Dk Bynum MD Collected: 11/25/2024 09:49 AMOrdering Location: [facility] Surgery Received: 11/25/2024 12:28 PMPathologist: Izaiah Hernandez MDSpecimen: Hernia Sac Performed By: #### 6 6121-5 ####[facility] LABCLIA [id number] [address] CLINICAL HISTORY Normal [facility] Comment on above: Order Comment: Speci men Type: TISSUE SPECIMENOrdering Facility: [facility] Address: [address] [place] [address] Result Comment: Pre- op diagnosis:Incisional hernia, without obstruction or gangrene [K43.2]Associated Diagnoses:K43.2 - Incisional hernia, without obstruction or gangrene Performed By: #### 6 6121-5 ####[facility] LABCLIA [id number] [address] STATES OF [place] FINAL DIAGNOSIS Normal [facility] Comment on above: Order Comment: Speci men Type: TISSUE SPECIMENOrdering Facility: [facility] Address: [address] [place] [address] Result Comment: Soft tissue, abdominal, herniorrhaphy:- Hernia sac. at 1416 EDT Performed By: #### 6 6121-5 ####[facility] LABCLIA [id number] [address] OF PAT FINAL PERFORMING LAB Normal [facility] Comment on above: Order Comment: Speci men Type: TISSUE SPECIMENOrdering Facility: [facility] Address: [address] [place] [address] Result Comment: Diag nostic interpretation performed at: [facility], [address] [place] [address] CLIA# [id number] Director: Elmer Niño MD Performed By: #### 6 6121-5 ####[facility] LABCLIA [id number] [address] OF PAT GROSS DESCRIPTION A. Hernia Sac Normal [facility] Comment on above: Order Comment: Speci men Type: TISSUE SPECIMENOrdering Facility: [facility] Address: [address] [place] [address] Result Comment: Rece ived in formalin labeled as hernia sac are multiple pieces of adipose and membranous tissue aggregating to 1.0 x 5.5 x 0.5 cm. Sectioning reveals focally fibrous cut surfaces. No nodularity is identified. Focal possible blue suture material is appreciated. Clinical Research Tech sections are submitted in 1 cassette.MLG 11/25/24 4:59 PMGross examination performed at [facility], [address] [place] [address] Performed By: #### 6 6121-5 ####[facility] LABCLIA [id number] [address] CNOVon 11-20-2024 CNOV Office Visit (FAMPWS ) KIARAJAYDEN GREENE Sherrie ([id number]) 1940 M NFR Date Time Provider Department 11/20/24 1:20 PM [facility] During your visit today, we recorded the following information about you: Pulse Respiration Blood pressure Weight 75/minute 16/minute 120/68 80.9 kg Eloisa Espinal MD 11/20/2024 5:17 PM Signed Jayden Craig is a 83 year old male here for a Medicare wellness visit. Medicare Health Risk Assessment General Health Good Exercise: Minutes/Day 0 min Exercise: Days/Week 0 days Alcohol: Daily Use Monthly or less Alcohol: Drinks/Day 1 or 2 Alcohol: 6 or more drinks Never Feel off balance Decline Concerns: Teeth/Dentures No Concerns: Sexual function Decline Troubled by feelings Frequency: Eating healthy diet Nearly every day ADLs requiring help None of the above Safety precautions in home/vehicle Decline Smoke, vape, chews tobacco No Difficulty hearing Yes, I wear a hearing aid Difficulty seeing No Current Providers Specialists: I have reviewed specialist-related care of the patient in the medical record. Current care team: Patient Care Team: Eloisa Espinal MD as PCP - Buddy Hdez MD as Consulting (General Surgery) Eloisa Espinal MD as Home Care Provider (Family Medicine) Mike Lee APRN.TRANSFER AND PUMPHOUSE OPERATOR CHIEF as Quality Assurance Practice Manager (Family Medicine) Outside specialists seen: Dr. Villa, Dr. Bynum, [facility] cardio, Medical/Family history review Reviewed and updated problem list, medical/surgical/fami ly/social history, medications, and allergies. Opioid use review Opioid Medications (last 90 days) No data to display Anxiety/Depression screening PHQ-2 Score: 0 (Lower risk for depression) Recommendation: no further intervention at this time Cognitive screening Mini Cog Score: 1 Cognitive screening reviewed and Recommended referral for further evaluation (score 0-2). Functional Observation Was the patient's Timed Up AND Go test unsteady or >= 12 seconds? No Advance Care Planning Surrogate decision maker and/or advance care plan documented Measurements BP 120/68 Pulse 75 Resp 16 Wt 80.9 kg (178 lb 5.6 oz) SpO2 98% BMI 27.12 kg/m? Vision Screening: Follows with optometry/ophthalmolo gy Assessment/Plan Medicare annual wellness visit, initial (Z00.00) - Counseled on healthy diet and regular exercise - Fall avoidance information provided - Personalized prevention plan provided - Discussed need for and benefit of weight loss. BMI 27.12 kg/(m2) Chief Complaint Patient presents with: Medicare Wellness Exam Immunizations: Flu vaccination HPI Jayden Craig is a 83 year old male who presents here today for Medicare Annual Visit. No bowel, Gi, or urinary issues. Taking Flomax 0.4 mg daily. GERD: Taking Protonix 40 mg 1 pill BID. HTN: Follows with Cardio. Taking Lopressor 50 mg 1 pill BID. Thyroid: Taking levoxyl 175 mcg daily. Lipid/CAD: taking Zocor 80 mg daily, ASA 325 mg daily and Plavix [address] Bynum is going to be doing surgery on 11/25/24 for abdominal wall incisional hernia. His does mention some memory impairment. His confirms this, stating that he forgets many things and often relies on her for reminders. She also mentions that he has hearing difficulties, which she believes may contribute to his memory issues. He is currently taking Prevagen for memory support, but his does not believe it is effective. 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 He still drives locally but his does most of the driving, especially for longer distances. He stays connected with friends and former colleagues, meeting with extension agents and ex[employer] members once a month. Past medical history, appointments, medications, allergies reviewed. 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 CAD (coronary artery disease) CABG and stent Constipation Essential hypertension Fatigue, unspecified type H/O ventral hernia repair 04/03/2023 Hiatal hernia 1989 History of coronary artery bypass graft 07/24/2018 VASQEUS in situ mammary end to side mid LAD, Vein graft ascending aorta end to side RCA, Vein graft ascending aorta end to side obtuse marginal 1 Hyperlipidemia Peptic ulcer, unspecified site, unspecified as acute or chronic, without mention of hemorrhage, perforation, or obstruction 2004 Unspecified hypothyroidism 1989 Previous Surgical History PAST SURGICAL HISTORY Procedure Laterality Date ANES HRNA RPR UPR ABD LMBRANDVENTRAL HERNIAANDDEHISC 04/03/[address] Regina Oswald APPENDECTOMY COLONOSCOPY FLX DX W/COLLJ SPEC WHEN PFRMD 06/28/2004 (more content not included)... Normal [facility] 11-12-2024 [facility] Cardiology Visit Reporton Cardiology Visit Report [facility] [address] [place], [place] [address] OFFICE VISIT Date of Service: 11/11/24 MR#: [id number] Acct: [id number] Name: JAYDEN CRAIG Rep #: [id number] : 1940 Provider: Dr. Stacey Daly MD Age/Sex: 83/M Location: [facility] Status: Signed HPI HPI History of Present Illness Details: This gentleman with history of coronary artery disease status post CABG, status post drug-eluting stent to the proximal RCA, is here for follow-up visit. Denies any angina. He has COPD and has stable shortness of breath with exertion. Denies orthopnea or PND. No ankle edema. Patient is scheduled to undergo surgery for abdominal hernia. 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: No Accompanied by: Is patient in pain?: No Allergies cefdinir (From Omnicef) Allergy (Intermediate, Verified 11/11/24 14:35) Diarrhea atorvastatin Adverse Reaction (Intermediate, Verified 11/11/24 14:35) myalgias azithromycin (From Zithromax) Adverse Reaction (Verified 11/11/24 14:35) Nausea/Vom/Diarrhea Medications ???Medication ???Instructions ???Recorded ???Confirmed ???Type acetaminophen 325 mg tablet 650 mg PO Q4H PRN Pain Or Fever 11/11/24 History aspirin 81 mg tablet,delayed 81 mg PO DAILY 12/09/18 11/11/24 H istory release (Adult Aspirin Regimen) magnesium oxide 400 mg PO DAILY 12/09/18 11/11/24 History multivitamin 1 tab PO QAM 12/09/18 11/11/24 His tory pantoprazole 40 mg tablet,delayed 40 mg PO BID 12/09/18 11/11/24 Hi story release simvastatin 80 mg tablet 80 mg PO QHS cholesterol 12/09/18 11/11/24 History fluticasone propionate 50 2 ea intranasal BID stuffiness 08/0311/11/24 History mcg/actuation nasal spray,suspension ibuprofen 200 mg tablet 200 mg PO Q6H PRN pain #30 tabs 11/11/24 Rx levothyroxine 175 mcg tablet 175 mcg PO DAILY disorder of 06/2911/11/24 History thyroid gland metoprolol tartrate 25 mg tablet 25 mg PO BID 06/30/23 11/11/24 His tory tamsulosin 0.4 mg capsule 0.4 mg PO QHS 06/30/23 11/11/24 Hi story albuterol sulfate 90 mcg/actuation 2 puff inhalation Q4-6H PRN 03/0 06/0611/11/24 History aerosol inhaler shortness of breath or wheezing clopidogrel 75 mg tablet 75 mg PO DAILY #30 tabs 07/03/24 0 11/11/24 Rx fluticasone furoate 200 inhalation QDAY 11/11/24 11/11/24 History mcg-vilanterol 25 mcg/dose inhalation powder (Breo Ellipta) Ejection fraction %: 65 Have you fallen in the past year?: Yes (missed step, missed balance) PFSH Medical History History of left heart catheterization Paroxysmal atrial fibrillation Mild intermittent asthma without complication Shortness of breath Peptic ulcer, site unspecified, unspecified as acute or chronic, without hemorrhage or perforation Hyperlipidemia Chronic fatigue, unspecified Essential hypertension Constipation CAD (coronary artery disease) 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 Acquired hypothyroidism Abdominal wall hernia Atherosclerosis of coronary artery of [place] heart without angina pectoris Hiatal hernia Hypothyroidism Escobedo's esophagus GERD (gastroesophageal reflux disease) DDD (degenerative disc disease), lumbar Surgical History History of ventral hernia repair Hx laparoscopic cholecystectomy History of repair of hiatal hernia History of umbilical hernia repair 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) History of back surgery ( 04/25/17) Family History Mother Emphysema of lung Father Emphysema of lung Social History Smoking Status: Former smoker quit date: 02/12/81 pack-years: 13 Tobacco: How many years used: 27 Electronic Cigarette Use: not used how long ago did patient quit smokin years ago alcohol intake: former substance use type: does not use ROS Const Const: Negative for fatigue or weakness Eyes Eyes: Negative for change in vision ENT ENT: Negative for dizziness or balance problems Cardio Chest Pain: No Palpitations: No Edema: None Muscle aches with walking: None Resp Respiratory: Positive for SOB with activity; Negative for SOB at rest or SOB orthopnea SOB lying down GI GI: Negative nausea or heartburn Musc Musc: Negative for balance problems Neuro Neuro: Negative for dizziness, (more content not included)... Normal [facility] CBC W Auto Differential pane l (Bld)on 11-07-2024 Acanthocytes LM Ql (Bld) Few Normal [facility] Comment on above: Order Comment: Speci men Type: BLOOD SPECIMENOrdering Facility: [facility] Address: [address], [place] [address] Performed By: #### 5 7021-8 ####[facility] MILLTOWNCLIA [id number] [address] LABORATORYCLIA [id number] [place] [address] [place] Anisocytosis Ql (Bld) Present Normal [facility] Comment on above: Order Comment: Speci men Type: BLOOD SPECIMENOrdering Facility: [facility] Address: [address] [place] [address] Performed By: #### 5 7021-8 ####[facility] MILLWNCLIA [id number] [address] LABORATORYCLIA [id number] [place] [address] [place] Basophils (Bld) [#/Vol] 0.10 10*3/uL Normal <0.11 [facility] Comment on above: Order Comment: Speci men Type: BLOOD SPECIMENOrdering Facility: [facility] Address: [address] [place] [address] Performed By: #### 5 7021-8 ####[facility] MILLTOWNCLIA [id number] [address] LABORATORYCLIA [id number] [place] [address] [place] Basophils/100 WBC (Bld) 1.0 % Normal [facility] Comment on above: Order Comment: Speci men Type: BLOOD SPECIMENOrdering Facility: [facility] Address: [address] [place] [address] Performed By: #### 5 7021-8 ####[facility] MILLTOWNCLIA [id number] [address] LABORATORYCLIA [id number] [place] [address] [place] Dacrocytes LM Ql (Bld) Few Normal [facility] Comment on above: Order Comment: Speci men Type: BLOOD SPECIMENOrdering Facility: [facility] Address: [address] [place] [address] Performed By: #### 5 7021-8 ####[facility] [id number] [address] LABORATORYCLIA [id number] [place] [address] [place] Differential cell count method Nom (Bld) Manual Normal [facility] Comment on above: Order Comment: Speci men Type: BLOOD SPECIMENOrdering Facility: [facility] Address: [address] [place] [address] Performed By: #### 5 7021-8 ####[facility] [id number] [address] LABORATORYCLIA [id number] [place] [address] [place] Eosinophils (Bld) [#/Vol] 0.31 10*3/uL Normal <0.46 [facility] Comment on above: Order Comment: Speci men Type: BLOOD SPECIMENOrdering Facility: [facility] Address: [address] [place] [address] Performed By: #### 5 7021-8 ####[facility] [id number] [address] LABORATORYCLIA [id number] [place] [address] [place] Eosinophils/100 WBC (Bld) 3.0 % Normal [facility] Comment on above: Order Comment: Speci men Type: BLOOD SPECIMENOrdering Facility: [facility] Address: [address] [place] [address] Performed By: #### 5 7021-8 ####[facility] MILLTOWNCLIA [id number] [address] LABORATORYCLIA [id number] [place] [address] [place] Erythrocyte distribution width (RBC) [Ratio] 17.4 % High 11.5-15.0 [facility] Comment on above: Order Comment: Speci men Type: BLOOD SPECIMENOrdering Facility: [facility] Address: [address] [place] [address] Performed By: #### 5 7021-8 ####[facility]ITALWNCLIA [id number] [address] LABORATORYCLIA [id number] [place] [address] [place] Hematocrit (Bld) [Volume fraction] 28.6 % Low 39.0-51.0 [facility] Comment on above: Order Comment: Speci men Type: BLOOD SPECIMENOrdering Facility: [facility] Address: [address] [place] [address] Performed By: #### 5 7021-8 ####[facility]ITALWNCLIA [id number] [address] LABORATORYCLIA [id number] [place] [address] [place] Hemoglobin (Bld) [Mass/Vol] 9.0 g/dL Low 13.0-17.0 [facility] Comment on above: Order Comment: Speci men Type: BLOOD SPECIMENOrdering Facility: [facility] Address: [address] [place] [address] Performed By: #### 5 7021-8 ####[facility] MILLTOWNCLIA [id number] [address] LABORATORYCLIA [id number] [place] [address] [place] Lymphocytes (Bld) [#/Vol] 0.21 10*3/uL Low 1.00-4.00 [facility] Comment on above: Order Comment: Speci men Type: BLOOD SPECIMENOrdering Facility: [facility] Address: [address] [place] [address] Performed By: #### 5 7021-8 ####[facility] HOSPITALWAKLIA [id number] [address] LABORATORYCLIA [id number] [place] [address] [place] Lymphocytes/100 WBC (Bld) 2.0 % Normal [facility] Comment on above: Order Comment: Speci men Type: BLOOD SPECIMENOrdering Facility: [facility] Address: [address] [place] [address] Performed By: #### 5 7021-8 ####[facility] [id number] [address] LABORATORYCLIA [id number] [place] [address] [place] MCH (RBC) [Entitic mass] 23.3 pg Low 26.0-34.0 [facility] Comment on above: Order Comment: Speci men Type: BLOOD SPECIMENOrdering Facility: [facility] Address: [address] [place] [address] Performed By: #### 5 7021-8 ####[facility]ALTHL[facility] [id number] [address] LABORATORYCLIA [id number] [place] [address] [place] [facility] MCHC (RBC) [Mass/Vol] 31.5 g/dL Normal 30.5-36.0 [facility] Comment on above: Order Comment: Speci men Type: BLOOD SPECIMENOrdering Facility: [facility] Address: [address] [place] [address] Performed By: #### 5 7021-8 ####[facility] MILEYWNCLIA [id number] [address] LABORATORYCLIA [id number] [place] [address] [place] MCV (RBC) [Entitic vol] 74.1 fL Low 80.0-100.0 [facility] Comment on above: Order Comment: Speci men Type: BLOOD SPECIMENOrdering Facility: [facility] Address: [address] [place] [address] Performed By: #### 5 7021-8 ####[facility] HOSPITALMarleneMARIAHLIA [id number] [address] LABORATORYCLIA [id number] [place] [address] [place] Monocytes (Bld) [#/Vol] 1.05 10*3/uL High <0.87 [facility] Comment on above: Order Comment: Speci men Type: BLOOD SPECIMENOrdering Facility: [facility] Address: [address] [place] [address] Performed By: #### 5 7021-8 ####[facility] RINKURIAZWNCLIA [id number] [address] LABORATORYCLIA [id number] [address] STATES [place] Monocytes/100 WBC (Bld) 10.0 % Normal [facility] Comment on above: Order Comment: Speci men Type: BLOOD SPECIMENOrdering Facility: [facility] Address: [address] [place] [address] Performed By: #### 5 7021-8 ####[facility] MILEYWNCLIA [id number] [place] [address] LABORATORYCLIA [id number] [place] [address] [place] Neutrophils (Bld) [#/Vol] 8.81 10*3/uL High 1.45-7.50 [facility] Comment on above: Order Comment: Speci men Type: BLOOD SPECIMENOrdering Facility: [facility] Address: [address] [place] [address] Performed By: #### 5 7021-8 ####[facility] MILLTOWNCLIA [id number] [address] LABORATORYCLIA [id number] [place] [address] [place] Neutrophils/100 WBC (Bld) 84.0 % Normal [facility] Comment on above: Order Comment: Speci men Type: BLOOD SPECIMENOrdering Facility: [facility] Address: [address] [place] [address] Performed By: #### 5 7021-8 ####[facility] MILLTOWNCLIA [id number] [address] LABORATORYCLIA [id number] [place] [address] [place] Nucleated RBC (Bld) [#/Vol] 10*3/uL Normal <0.01 [facility] Comment on above: Order Comment: Speci men Type: BLOOD SPECIMENOrdering Facility: [facility] Address: [address] [place] [address] Performed By: #### 5 7021-8 ####[facility] MILLTOWNCLIA [id number] [address] LABORATORYCLIA [id number] [place] [address] [place] Nucleated RBC/100 WBC (Bld) [Ratio] 0.0 /100 WBC Normal [facility] Comment on above: Order Comment: Speci men Type: BLOOD SPECIMENOrdering Facility: [facility] Address: [address] [place] [address] Performed By: #### 5 7021-8 ####[facility] [id number] [address] LABORATORYCLIA [id number] [place] [address] [place] Ovalocytes LM Ql (Bld) Few Normal Cl [facility] Comment on above: Order Comment: Speci men Type: BLOOD SPECIMENOrdering Facility: [facility] Address: [address] [place] [address] Performed By: #### 5 7021-8 ####[facility] [id number] [address] LABORATORYIA [id number] [place] [address] [place] Platelet mean volume (Bld) [Entitic vol] 11.1 fL Normal 9.0-12.7 [facility] Comment on above: Order Comment: Speci men Type: BLOOD SPECIMENOrdering Facility: [facility] Address: [address] [place] [address] Performed By: #### 5 7021-8 ####[facility] [id number] [address] LABORATORYIA [id number] [place] [address] [place] Platelets (Bld) [#/Vol] 128 10*3/uL Low 150-400 [facility] Comment on above: Order Comment: Speci men Type: BLOOD SPECIMENOrdering Facility: [facility] Address: [address] [place] [address] Result Comment: No c lot detected. Performed By: #### 5 7021-8 ####[facility] [id number] [address] LABORATORYCLIA [id number] [place] [address] [place] Platelets Estimate (Bld) [#/Vol] Decreased Normal [facility] Comment on above: Order Comment: Speci men Type: BLOOD SPECIMENOrdering Facility: [facility] Address: [address] [place] [address] Performed By: #### 5 7021-8 ####[facility] MILLWNCLIA [id number] [address] LABORATORYIA [id number] [place] [address] [place] Polychromasia LM Ql (Bld) Slight Normal [facility] Comment on above: Order Comment: Speci men Type: BLOOD SPECIMENOrdering Facility: [facility] Address: [address] [place] [address] Performed By: #### 5 7021-8 ####[facility]HL[facility] [id number] [address] LABORATORYCLIA [id number] [place] [address] [place] RBC (Bld) [#/Vol] 3.86 10*6/uL Low 4.20-6.00 [facility] Comment on above: Order Comment: Speci men Type: BLOOD SPECIMENOrdering Facility: [facility] Address: [address] [place] [address] Performed By: #### 5 7021-8 ####[facility] MILLTOWNCLIA [id number] [address] LABORATORYCLIA [id number] [place] [address] [place] RBC FRAGMENTS Few Abnormal None Seen [facility] Comment on above: Order Comment: Speci men Type: BLOOD SPECIMENOrdering Facility: [facility] Address: [address] [place] [address] Performed By: #### 5 7021-8 ####[facility] MILLTOWNCLIA [id number] [address] LABORATORYCLIA [id number] [address] RED CELL MORPH Reviewed: see result s of individual morphologies Normal [facility] Comment on above: Order Comment: Speci men Type: BLOOD SPECIMENOrdering Facility: [facility] Address: [address] [place] [address] Performed By: #### 5 7021-8 ####[facility]CL[facility] [id number] [address] LABORATORYCLIA [id number] [address] Target cells LM Ql (Bld) Few Normal [facility] Comment on above: Order Comment: Speci men Type: BLOOD SPECIMENOrdering Facility: [facility] Address: [address] [place] [address] Performed By: #### 5 7021-8 ####[facility] MILLWNCLIA [id number] [address] LABORATORYCLIA [id number] [address] WBC (Bld) [#/Vol] 10.49 10*3/uL Normal 3.70-11.00 [facility] Comment on above: Order Comment: Speci men Type: BLOOD SPECIMENOrdering Facility: [facility] Address: [address] [place] [address] Performed By: #### 5 7021-8 ####[facility] MILLTOWNCLIA [id number] [place] [address] [facility] LABORATORYCLIA [id number] [address] STATES OF [facility] Comprehensive metabolic 2000 panelon 11-07-2024 Albumin [Mass/Vol] 4.1 g/dL Normal 3.9-4.9 [facility] Comment on above: Order Comment: Speci men Type: BLOOD SPECIMENOrdering Facility: [facility] Address: [address] [place] [address] Performed By: #### 2 4323-8 ####[facility] LABCLIA [id number] [place] [address] [place] ALP [Catalytic activity/Vol] 80 U/L Normal 38-113 [facility] Comment on above: Order Comment: Speci men Type: BLOOD SPECIMENOrdering Facility: [facility] Address: [address] [place] [address] Performed By: #### 2 4323-8 ####[facility] LABCLIA [id number] [place] [id number] [place] ALT [Catalytic activity/Vol] 17 U/L Normal 10-54 [facility] Comment on above: Order Comment: Speci men Type: BLOOD SPECIMENOrdering Facility: [facility] Address: [address] [place] [address] Performed By: #### 2 4323-8 ####[facility] LABCLIA [id number] [place] [id number] [place] Anion gap [Moles/Vol] 11 mmol/L Normal 8-15 [facility] Comment on above: Order Comment: Speci men Type: BLOOD SPECIMENOrdering Facility: [facility] Address: [address] [place] [address] Performed By: #### 2 4323-8 ####[facility] LABCLIA [id number] [place] [id number] [place] AST [Catalytic activity/Vol] 25 U/L Normal 14-40 [facility] Comment on above: Order Comment: Speci men Type: BLOOD SPECIMENOrdering Facility: [facility] Address: [address] [place] [address] Performed By: #### 2 4323-8 ####[facility] LABCLIA [id number] [facility] [place] [id number] [place] Bilirubin [Mass/Vol] 0.3 mg/dL Normal 0.2-1.3 [facility] Comment on above: Order Comment: Speci men Type: BLOOD SPECIMENOrdering Facility: [facility] Address: [address] [place] [address] Performed By: #### 2 4323-8 ####[facility] LABCLIA [id number] [facility] [place] [address] [place] Calcium [Mass/Vol] 9.2 mg/dL Normal 8.5-10.2 [facility] Comment on above: Order Comment: Speci men Type: BLOOD SPECIMENOrdering Facility: [facility] Address: [address] [place] [address] Performed By: #### 2 4323-8 ####[facility] LABCLIA [id number] [facility] [place] [address] [place] Chloride [Moles/Vol] 93 mmol/L Low 98-107 [facility] Comment on above: Order Comment: Speci men Type: BLOOD SPECIMENOrdering Facility: [facility] Address: [address] [place] [address] Performed By: #### 2 4323-8 ####[facility] LABCLIA [id number] [place] [id number] [place] CO2 [Moles/Vol] 23 mmol/L Normal 22-30 [facility] Comment on above: Order Comment: Speci men Type: BLOOD SPECIMENOrdering Facility: [facility] Address: [address] [place] [address] Performed By: #### 2 4323-8 ####[facility] LABCLIA [id number] [address] [address] [place] Creatinine [Mass/Vol] 0.84 mg/dL Normal 0.73-1.22 [facility] Comment on above: Order Comment: Speci men Type: BLOOD SPECIMENOrdering Facility: [facility] Address: [address] [place] [address] Performed By: #### 2 4323-8 ####[facility] LABIA [id number] [place] [address] [place] eGFRcr SerPlBld CKD-EPI 2020 88 mL/min/1.73m??? Normal >=60 [facility] Comment on above: Order Comment: Speci men Type: BLOOD SPECIMENOrdering Facility: [facility] Address: [address] [place] [address] Result Comment: Kimberlyn mated Glomerular Filtration Rate (eGFR) is calculated using the 2020 CKD-EPI creatinine equation. This equation utilizes serum creatinine, sex, and age as parameters. The creatinine assay has traceable calibration to isotope dilution-mass spectrometry. Refer to KDIGO guidelines for clinical interpretation. In patients with unstable renal function, e.g. those with acute kidney injury, the eGFR may not accurately reflect actual GFR. Performed By: #### 2 4323-8 ####[facility] LABIA [id number] [place] [id number] [place] Glucose [Mass/Vol] 96 mg/dL Normal 74-99 [facility] Comment on above: Order Comment: Speci men Type: BLOOD SPECIMENOrdering Facility: [facility] Address: [address] [place] [address] Result Comment: The [place] Diabetes Association (ADA) provides guidance for cutoff values for fasting glucose and random glucose. The ADA defines fasting as no caloric intake for at least 8 hours. Fasting plasma glucose results between 100 to 125 mg/dL indicate increased risk for diabetes (prediabetes). Fasting plasma glucose results greater than or equal to 126 mg/dL meet the criteria for diagnosis of diabetes. In the absence of unequivocal hyperglycemia, results should be confirmed by repeat testing. In a patient with classic symptoms of hyperglycemia or hyperglycemic crisis, random plasma glucose results greater than or equal to 200 mg/dL meet the criteria for diagnosis of diabetes. Reference: Standards of Medical Care in Diabetes 2016, [place] Diabetes Association. Diabetes Care. 2016.39(Suppl 1). Performed By: #### 2 4323-8 ####[facility] LABCLIA [id number] [place] [id number] [place] Potassium [Moles/Vol] 4.5 mmol/L Normal 3.7-5.1 [facility] Comment on above: Order Comment: Speci men Type: BLOOD SPECIMENOrdering Facility: [facility] Address: [address] [place] [address] Performed By: #### 2 4323-8 ####[facility] LABIA [id number] [place] [id number] [place] Protein [Mass/Vol] 6.9 g/dL Normal 6.3-8.0 [facility] Comment on above: Order Comment: Boweni rochelle Type: BLOOD SPECIMENOrdering Facility: [facility] Address: [address] [place] [address] Performed By: #### 2 4323-8 ####[facility] LABIA [id number] [place] [id number] [place] Sodium [Moles/Vol] 127 mmol/L Low 136-144 [facility] Comment on above: Order Comment: Speci men Type: BLOOD SPECIMENOrdering Facility: [facility] Address: [address] [place] [address] Performed By: #### 2 4323-8 ####[facility] LABCLIA [id number] [address] [address] [place] Urea nitrogen [Mass/Vol] 12 mg/dL Normal 9-24 [facility] Comment on above: Order Comment: Speci men Type: BLOOD SPECIMENOrdering Facility: [facility] Address: [address] [place] [address] Performed By: #### 2 4323-8 ####[facility] LABCLIA [id number] [place] [address] [place] HISTORY PHYSICALon 5 HISTORY PHYSICAL HNO ID: [id number] Author: YAMILETH RAMIREZ APRN.TRANSFER AND PUMPHOUSE OPERATOR CHIEF Service: ? Author Type: Nurse Practitioner Type: H&P Filed: 11/13/2024 07:43 Note Text: [facility] HISTORY AND PHYSICAL EXAMINATION SERVICE DATE: 11/07/2024 SERVICE TIME: 7:43 AM PRIMARY CARE PHYSICIAN: Eloisa Espinal MD Assessment Patient has the following medical conditions which may affect maria luisa-operative course: 1. Hard to intubate, sequela (T88.4XXS) - History of difficult intubation during surgery in 2019. No issues during recent procedures. - Noted for anesthesia planning. Anesthesia Procedure Notes by Aleksey Ramirez APRN.LAUNDRY TUB MAKER (04/03/2023 9:17 AM) Airway not difficult. Anesthesia Procedure Notes by Rickey Chavez MD (08/24/2022 8:51 AM) Airway not difficult. Progress Notes 07/24/2018 Difficult Airway for Intubation Fairly easy mask ventilation. Intubation was difficult with Mac 3 blade. only the epiglottis was visualized, but a blind intubation was successful. Atelectasis Grade 3 airway A/P: Postop bibasilar. Arrived to CVICU intubated, WTE. BPH. 2. 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 - No recent worsening of symptoms. ADDENDUM: November 13, 2024 7:[address] Kennedy to patient about surgery: Yes it is okay from pulmonary standpoint [facility] Get Medical Advice with Mary Kennedy MD (09/22/2024) 3. Difficult intravenous access (Z78.9) - Occasional difficulty with IV access noted; recommend experienced stock fitter for blood draws. 4. Paroxysmal atrial fibrillation (HCC) (I48.0) 5. 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 Hx of CABG (Z95.1) - History of triple bypass in 2019 and recent proximal RCA stent placement this year. - On clopidogrel for stent; advised to hold for 3 days prior to surgery. - Continue aspirin. - Cardiac risk assessment by Dr. Daly on 11/11. Office Visit with Dk Bynum MD (10/02/2024) I contacted his worship director. While normally their goal would be to maintain Plavix for 6 months, given his crescendoing symptoms the consideration was to perform hernia repair and hold the Plavix for 3 days in mid November. Cardiology office said Plavix could be held for 5 days what I discussed with them was holding the Plavix for 3 days and then performing the procedure in an open fashion. ADDENDUM: November 13, 2024 7:40 AM External Document(s) - [facility] (11/11/2024) Dr. Daly - Office Visit 11/11/24 7. Mixed hyperlipidemia (E78.2) - Controlled on current medication. 8. Acquired hypothyroidism (E03.9) - On Synthroid. 9. Essential hypertension (I10) - Controlled on current medication. Last 3 Encounter BP Readings: Date: BP: 11/07/2024 132/80 10/02/2024 116/68 09/15/2024 110/62 10. Degeneration of intervertebral disc of lumbar region, unspecified whether pain present (M51.369) - History of decompression surgery; chronic back pain and arthritis. - Advised to use Tylenol for pain; avoid NSAIDs (Motrin, Advil, Aleve) 7 days before surgery. 11. Gastroesophageal reflux disease with esophagitis, unspecified whether hemorrhage (K21.00) 12. 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 Esophageal stricture (K22.2) - History of esophageal strictures with multiple dilations. - On medication for acid reflux. ANESTHESIA FINDINGS: Intubation History: No abnormal airway history Significant Anesthesia Considerations: none Airway History: No abnormal airway history Difficult airway documented by an anesthesiologist during past surgical procedure [place] Activity Status Index: METS: Walk indoors, such as around the house (1.75 METs) Do light work around the house, such as dusting or washing dishes (2.70 METs) Take care of self; that is eating, dressing, bathing, using the toilet (2.75 METs) Walk a block or two on level ground (2.75 METs) Do moderate work around the house, such as vacuuming, sweeping floors, or carrying in groceries (3.50 METs) Climb a flight of stairs or walk up a hill (5.50 METs) DASI Score: 18.95 Patient denies any chest pain or undue shortness of breath with the above physical activity. Clinical Frailty Scale: 3. Well, with treated comorbid disease STOP-Bang Score: Patient over 50 years old Male patient Denies snoring loudly Denies feeling tired, fatigued, or sleepy during the daytime Has not been observed to stop breathing or choking/gasping during sleep Denies having high blood pressure BMI less than or equal to 35 kg/m2 Does not have a large neck STOP-Bang Score: 2 I - PHYSICAL EVALUATION AIRWAY Patient intubated: No. Tracheostomy tube not present Mallampati: III. TM distance: >3 FB. Neck ROM: full ROM without neurolog (more content not included)... Normal [facility] CNOVon 10-02-2024 CNOV Office Visit (GENSWS ) JAYDEN CRAIG ([id number]) 1940 [place] Date Time Provider Department 10/02/24 11:00 AM DK BYNUM During your visit today, we recorded the following information about you: Temperature Pulse Respiration Blood pressure 97.5 degrees 80/minute 18/minute 116/68 Weight Height 79.4 kg 1.753 m Dk Bynum MD 10/03/2024 6:57 AM Signed HISTORY AND PHYSICAL Jayden Craig 1940 REFERRING PHYSICIAN: Elsa Mayo APRN.C* CHIEF COMPLAINT: Consult HPI: Jayden is a 83 year old male with a complaint of a bulge and discomfort in his prior supraumbilical incisional hernia repair site. The patient notes discomfort in this area with lifting and coughing. The symptoms have increased, over the past few months. The patient notes no symptoms of bowel obstruction and denies nausea or vomiting. The patient underwent repair of a type 3 paraesophageal hernia on August 24, 2022 along with repair of a simple umbilical hernia. He then had repair without mesh of two fascial defects on April 03, 2024. The defects were closed with 0 PDS and the two defects were noted to be 4x4cm and 1x2cm. The patient was seen at the request of Elsa Mayo concerning a recurrent incisional hernia on March 26, 2024. The patient was scheduled for surgical repair but was found to have positive cardiac evaluation and surgery was canceled. The patient follows with the [facility]. He was found of a positive stress test. He then underwent cardiac catheterization and had a drug-eluting stent placed in his proximal RCA on 07/03/2024. He underwent second cardiac catheterization on August 11, 2024 for attempted placement of a stent in his first OM branch this was not successful and he recommended medical therapy following that attempted stent placement. The patient has been started on Plavix for the drug-eluting stent. The patient notes that the hernia site has grown rapidly he has loops of small bowel within the hernia site now and he notes discomfort in the area usually every 2 to 3 days. It is currently reducible. I contacted his worship director. While normally their goal would be to maintain Plavix for 6 months, given his crescendoing symptoms the consideration was to perform hernia repair and hold the Plavix for 3 days in mid November. Cardiology office said Plavix could be held for 5 days what I discussed with them was holding the Plavix for 3 days and then performing the procedure in an open fashion. 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 CAD (coronary artery disease) CABG and stent Constipation Essential hypertension Fatigue, unspecified type H/O ventral hernia repair 04/03/2023 Hiatal hernia 1989 History of coronary artery bypass graft 07/24/2018 VASQUES in situ mammary end to side mid LAD, Vein graft ascending aorta end to side RCA, Vein graft ascending aorta end to side obtuse marginal 1 Hyperlipidemia Peptic ulcer, unspecified site, unspecified as acute or chronic, without mention of hemorrhage, perforation, or obstruction 2004 Unspecified hypothyroidism 1989 PAST SURGICAL HISTORY Procedure Laterality Date ANES HRNA RPR UPR ABD LMBRANDVENTRAL HERNIAANDDEHISC 04/03/[address] Regina Oswald APPENDECTOMY COLONOSCOPY FLX DX W/COLLJ SPEC WHEN PFRMD 06/28/2004 Colonoscopy COLONOSCOPY FLX DX W/COLLJ SPEC WHEN PFRMD 08/06/2015 Colonoscopy CORONARY ARTERY BYPASS GRAFT HX 07/24/2018 VASQUES in situ mammary end to side mid LAD, Vein graft ascending aorta end to side RCA, Vein graft ascending aorta end to side obtuse marginal 1. EGD N/A 06/29/2020 Dr. Keating EGD 05/31/2021 EGD TRANSORAL BIOPSY SINGLE/MULTIPLE 08/30/2009 EGD TRANSORAL BIOPSY SINGLE/MULTIPLE 08/23/2011 repeat in 2 years ESOPHAGOGASTRODUODENO SCOPY TRANSORAL DIAGNOSTIC 10/06/1998 EGD ESOPHAGOGASTRODUODENO SCOPY TRANSORAL DIAGNOSTIC 01/29/2000 EGD ESOPHAGOGASTRODUODENO SCOPY TRANSORAL DIAGNOSTIC 08/04/2003 EGD ESOPHAGOGASTRODUODENO SCOPY TRANSORAL DIAGNOSTIC 08/29/2007 EGD ESOPHAGOGASTRODUODENO SCOPY TRANSORAL DIAGNOSTIC 08/28/2013 EGD ESOPHAGOGASTRODUODENO SCOPY TRANSORAL DIAGNOSTIC 10/08/2017 EGD HEART SURGERY HX HIATAL HERNIA REPAIR HX 08/24/2022 Laparoscopic paraesophageal hernia repair with gastropexy, Primary repair of ventral hernia, EGD LAPAROSCOPIC CHOLECYSTECTOMY 12/15/2018 PAST SURGICAL HISTORY OF N/A 04/25/2017 Back surgery done at [facility], [address] [place] [address] and cleaned up arthritis REPAIR UMBILICAL HERNIA 08/24/2022 Current Outpatient Medications Medication Sig fluticasone-vilantero l (BREO ELLIPTA) 200-25 mcg/dose inhaler Inhale 1 inhalation as instructed once daily. clopidogrel (PLAVIX) 75 mg tablet Take 75 mg (more content not included)... Normal [facility] Cardiac Cath Interventionon 09-22-2024 Cardiac Cath Intervention [facility] [address] [place], [place] [address] [address] Cardiac Cath Intervention MR#: [id number] Acct: [id number] Name: JAYDEN CRAIG Rep #: [id number] : 1940 83 From: Stacey Daly MD PCP: Dr. Eloisa Espinal MD Status:[facility] Patient Name: JAYDEN CRAIG Study Date: 08/06/2024 Performing: Stacey Daly MD Ht: 68 inches 172.72 cm : 1940 Wt: 178.2 lbs 80.74 kg Age: 83 Gender: male BSA: 1.95 PROCEDURE(S) PERFORMED [id number]-([id number])[facility] CLINICAL PROFILE AND CO-MORBIDITIES Indications: Staged PCI Heart Failure: None CONCLUSIONS 99% Mid OM1 Unsuccessful attempt at PCI sub-total calcified Mid OM1. Unable to cross with wire on account of unfavorable angle proximal to the lesion. RECOMMENDATIONS Medical therapy DESCRIPTION OF PROCEDURE The patient arrived to the procedure lab. The risks and benefits of the procedure as well as a full description of our services here and lack of surgical backup were fully explained to the patient and/or their significant other prior to the catheterization. The Timeout was completed, verifying the correct patient and procedure. The patient's procedural site was prepped and draped in the usual fashion. Local anesthetic was given subcutaneously to right radial region with Lidocaine 2%. Using a modified Seldinger technique, arterial access was obtained via the right radial artery, a 6Fr sheath was inserted.. Left Coronary Artery selective angiography was performed in multiple views using a 6 Fr. XB 3.5 catheter XB 3.5 Guide catheter was inserted and engaged into the LCA. Runthrough Guide wire was advanced to the 1st OM. The arterial sheath was pulled and a TR Band was applied for hemostasis 13cc air CORONARY ANGIOGRAPHY CIRCUMFLEX ARTERY: OM 1: Mid - 99% heavily calcified INTERVENTION INFORMATION LESION SITE: 1st OM (Mid) Lesion Complexity: High/C Pre Stenosis: 99 % Pre intervention LEVI flow: 3 Post Stenosis: 99 % Post intervention LEVI flow: 3 Lesion Devices: Terumo .014 180cm Runthrough Extra Floppy straight Cordis 6 Fr XB3.5 100cm Guide Catheter COMPLICATIONS No Complications PROCEDURE MEDICATIONS Fentanyl 50 mcg IV Versed 1 mg IV Oxygen: 2 L/min via nasal cannula Heparin given IA 08/06/2024 09:36:27 Heparin 4000 unit(s) IV 08/06/2024 09:37:23 Heparin 2000 unit(s) IV 08/06/2024 10:10:49 Verapamil 2.5mg, Ntg 200mcgs, 2000 units of Heparin given IA 08/06/2024 09:36:27 SUMMARY OF HEMODYNAMIC DATA Time AIR REST ECG 08:49:17 AO 93/47 (70) SA 09:40:35 AIR REST 10:53:51 Signed By Stacey Daly MD On 08/11/2024 11:53:19 Signed By Stacey Daly MD On 08/06/2024 10:55:59 Stacey Daly MD 09/22/24 0945 Date Stacey Daly MD Cosigner Signature: Date (if indicated) CC: Dr. Stacey Daly MD; Dr. Eloisa Espinal MD Date Dictated: 08/06/2434 Date Transcribed: 08/11/24 1153 Data Collection Associate: DARRYL Vasquez [facility] 09-15-2024 [facility] Office Visit (PULMWS ) JAYDEN CRAIG ([id number]) 1940 M NFR Date Time Provider Department 09/15/24 1:30 PM MARY KENNEDY PULMWS During your visit today, we recorded the following information about you: Pulse Respiration Blood pressure Weight 88/minute 20/minute 110/62 79.8 kg Height 1.753 m Mary Kennedy MD 09/15/2024 3:17 PM Signed . Respiratory Clarita Note Patient name: Jayden Craig PCP: Eloisa Espinal MD Recording using ambient AI software for draft documentation of the visit was discussed with the patient/authorized credit resolution representative; all questions welcomed and answered. Patient/authorized credit resolution representative agreed to proceed CC: SOB HPI: Jayden Craig 83 year old male former less than [id number] smoker quitting in 1981 with PMH significant for GERD with Escobedo's esophagus, HTN, CAD s/p CABG s/p stent, hypothyroidism, postop AF, HLD previously seen by Dr. Burger in 2017 for shortness of breath. 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 Chest x-ray not consistent with hypersensitivity pneumonitis but he did have evidence of elevated right hemidiaphragm. Symptomatology consistent with possible asthma but pulmonary function tests were normal. Definitive methacholine challenge testing ordered which was not performed. Patient was on as needed albuterol at that time. He has been on Advair HFA 115/21 and albuterol in the past. Controller inhaler was changed recently to low-dose Brenya which he does not find as effective as the Advair. He no longer has albuterol inhaler to use as needed. Current history dates back to preoperative evaluation for evaluation for ventral hernia repair. The anesthesiology preappointment noted that he was rather dyspneic so recommended cardiac clearance. He had a nuclear medicine stress test that was positive for ischemia. Subsequent cardiac catheterization showed patent VASQUES to LAD and saphenous vein graft to RPLV. He had a successful DARSHANA to the proximal right coronary arteries with plans for staged PCI to his OM. Subsequent attempt at DARSHANA to his LM was unsuccessful. Work And Family Life Consultant recommended pulmonary evaluation to exclude COPD as a contributor to his dyspnea. Main symptom is dyspnea with exertion. He can ambulate approximately 50 feet before he has to stop and rest. He denies any wheezing, chronic cough or mucus production. He has no orthopnea. Denies increased shortness of breath with exposure to heat and humidity or strong odors or fumes. No history of asthma as a child. No history of recurrent bronchitis or pneumonia. Recent pulmonary function test from [facility] shows combined restriction and obstruction with marked improvement postbronchodilator. This is dramatically different from pulmonary function tests obtained in 2021 which were essentially normal except for slight reduction in diffusing capacity. 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 CAD (coronary artery disease) CABG and stent Constipation Essential hypertension Fatigue, unspecified type H/O ventral hernia repair 04/03/2023 Hiatal hernia 1990 History of coronary artery bypass graft 07/24/2018 VASQUES in situ mammary end to side mid LAD, Vein graft ascending aorta end to side RCA, Vein graft ascending aorta end to side obtuse marginal 1 Hyperlipidemia Peptic ulcer, unspecified site, unspecified as acute or chronic, without mention of hemorrhage, perforation, or obstruction 2004 Unspecified hypothyroidism 1989 ALLERGIES Allergen Reactions Lipitor [Atorvastat* Intolerance myalgias Omnicef [Cefdinir] Diarrhea Zithromax [Azithrom* clopidogrel (PLAVIX) 75 mg tablet Take 75 mg by mouth once daily. metoprolol tartrate, short acting, (LOPRESSOR) 25 mg tablet Take 1 tablet by mouth two times a day. pantoprazole DR (PROTONIX) 40 mg tablet Take 1 tablet by mouth two times a day. Take on empty stomach, 1/2 hr before meal. simvastatin (ZOCOR) 80 mg tablet Take 1 tablet by mouth daily at bedtime. ondansetron (ZOFRAN) 4 mg tablet Take 1 tablet by mouth every 8 hours as needed for nausea/vomiting. fluticasone (FLONASE) 50 mcg/actuation nasal spray Use 2 Sprays in each nostril onc (more content not included)... Normal [facility] Cardiology Visit Reporton Cardiology Visit Report [facility] [address] [place], [place] [address] OFFICE VISIT Date of Service: 08/19/24 MR#: [id number] Acct: [id number] Name: JAYDEN CRAIG Rep #: [id number] : 1940 Provider: MUNA mart Age/Sex: 83/M Location: [facility] Status: Signed HPI HPI History of Present Illness Details: This is an 83-year-old male who presents today for cardiovascular follow-up visit. He has a history of coronary artery disease status post CABG in 2019. According to him, he received 3 grafts to his coronary arteries. Also history of dyslipidemia and COPD. He underwent a cardiac catheterization on 07/03/2024, and underwent successful DARSHANA to the proximal RCA. He underwent a cardiac catheterization on 08/11/2024, with an unsuccessful stent placement to his OM1. Medical therapy was recommended at that time. From a cardiac standpoint, the patient is doing well. He denies any palpitations, chest pain, pressure or heaviness. He does acknowledge SOB with exertion-this is unchanged. He denies Orthopnea, and PND. He does not have bleeding issues; no blood in urine, stool, or nosebleeds. He denies any decrease in energy level, myalgias, or claudication. He does not have edema, or sudden weight gain. He denies lightheadedness, dizziness, syncopal or near syncopal episodes, and headaches. Intake Vital Signs 08/06/24 08:50 08/19/24 10:15 Height 5 ft 8 in 5 ft 8 in Weight: 175 lb BMI 26.6 BP 102/59 L Blood Pressure Location Lt brachial Position Sitting Respiration 18 Pulse 86 Pulse Source Monitor Intake Visit Reasons: S/P [facility] 08/11 Butting Saw Operator Required: No Accompanied by: Is patient in pain?: No Allergies cefdinir (From Omnicef) Allergy (Intermediate, Verified 08/19/24 10:28) Diarrhea atorvastatin Adverse Reaction (Intermediate, Verified 08/19/24 10:28) myalgias azithromycin (From Zithromax) Adverse Reaction (Verified 08/19/24 10:28) Nausea/Vom/Diarrhea Medications ???Medication ???Instructions ???Recorded ???Confirmed ???Type acetaminophen 325 mg tablet 650 mg PO Q4H PRN Pain Or Fever 08/19/24 History aspirin 81 mg tablet,delayed 81 mg PO DAILY 12/09/18 08/19/24 H istory release (Adult Aspirin Regimen) magnesium oxide 400 mg PO DAILY 12/09/18 08/19/24 History multivitamin 1 tab PO QAM 12/09/18 08/19/24 His tory pantoprazole 40 mg tablet,delayed 40 mg PO BID 12/09/18 08/19/24 Hi story release simvastatin 80 mg tablet 80 mg PO QHS cholesterol 12/09/18 08/19/24 History fluticasone propionate 115 2 inh inhalation BID sob 09/17/21 08/19/24 History mcg-salmeterol 21 mcg/actuation HFA inhaler (Advair HFA) fluticasone propionate 50 2 ea intranasal BID stuffiness 08/0308/19/24 History mcg/actuation nasal spray,suspension ibuprofen 200 mg tablet 200 mg PO Q6H PRN pain #30 tabs 08/19/24 Rx levothyroxine 175 mcg tablet 175 mcg PO DAILY disorder of 06/2908/19/24 History thyroid gland metoprolol tartrate 25 mg tablet 25 mg PO BID 06/30/23 08/19/24 His tory tamsulosin 0.4 mg capsule 0.4 mg PO QHS 06/30/23 08/19/24 Hi story albuterol sulfate 90 mcg/actuation 2 puff inhalation Q4-6H PRN 03/0 06/0608/19/24 History aerosol inhaler shortness of breath or wheezing clopidogrel 75 mg tablet 75 mg PO DAILY #30 tabs 07/03/24 0 08/19/24 Rx Have you fallen in the past year?: Yes (lost footing going down steps) [facility] Medical History History of left heart catheterization Paroxysmal atrial fibrillation Mild intermittent asthma without complication Shortness of breath Peptic ulcer, site unspecified, unspecified as acute or chronic, without hemorrhage or perforation Hyperlipidemia Chronic fatigue, unspecified Essential hypertension Constipation CAD (coronary artery disease) 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 Acquired hypothyroidism Abdominal wall hernia Atherosclerosis of coronary artery of [place] heart without angina pectoris Hiatal hernia Hypothyroidism Escobedo's esophagus GERD (gastroesophageal reflux disease) DDD (degenerative disc disease), lumbar Surgical History History of ventral hernia repair Hx laparoscopic cholecystectomy History of repair of hiatal hernia History of umbilical hernia repair 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) History of back surgery ( 04/25/17) Family History Mother Emphysema of lung Father Emphysema of lung Social History Smoking Status: Former smoker quit date: 02/12/81 pack-years: 13 Tobacco: How many yea (more content not included)... Normal [facility] ACT Activated Clotting Timeo n 08-06-2024 ACTk CLOT TIME 228 sec High 74-137 [facility] Comment on above: Performed By: #### L 9100.0100 #### [facility] [address] [place], [place], [id number] Anion gap in Serum or Plasma Ordered By: Stacey Daly on 07-31-2024 Anion gap [Moles/Vol] 11 mmol/L - [facility] BUN/creatinine ratioOrdered By: Stacey Daly on 07-31-2024 Urea nitrogen/Creatinine [Mass ratio] 13.9 mg/mg - [facility] Basic Metabolic Profile (BMP )on 07-31-2024 BUN/CRE 13.9 RATIO Normal 12-01 [facility] Comment on above: Performed By: #### L 100.0100, L500.2500 #### [facility] [address] [place], [place], [id number] Calcium [Mass/Vol] 8.8 mg/dL Normal 7.6-11.0 [facility] Comment on above: Performed By: #### L 100.0100, L500.2500 #### [facility] [address] [place], [address] Chloride [Moles/Vol] 95 mmol/L Low 98-108 [facility] Comment on above: Performed By: #### L 100.0100, L500.2500 #### [facility] [address] [place], [address] CO2 [Moles/Vol] 22.1 mmol/L Normal 21.0-32.0 [facility] Comment on above: Performed By: #### L 100.0100, L500.2500 #### [facility] [address] [place], [address] Creatinine [Mass/Vol] 0.80 mg/dL Normal 0.70-1.20 [facility] Comment on above: Performed By: #### L 100.0100, L500.2500 #### [facility] [address] [place], [address] GAP 11 Normal 5-15 [facility] Comment on above: Performed By: #### L 100.0100, L500.2500 #### [facility] [address] [place], [address] GFR/1.73 sq M.predicted among non-blacks MDRD (S/P/Bld) [Vol rate/Area] 89 mL/min/{1.73_m2} Normal >60 [facility] Comment on above: Result Comment: mL/m in/1.73m2 CKD-EPI Creatinine Equation (2020) Performed By: #### L 100.0100, L500.2500 #### [facility] [address] [place], [address] Glucose [Mass/Vol] 110 mg/dL High 70-99 [facility] Comment on above: Performed By: #### L 100.0100, L500.2500 #### [facility] [address] [place], [address] Potassium [Moles/Vol] 4.5 mmol/L Normal 3.3-5.1 [facility] Comment on above: Performed By: #### L 100.0100, L500.2500 #### [facility] [address] [place], [address] Sodium [Moles/Vol] 128 mmol/L Low 133-145 [facility] Comment on above: Performed By: #### L 100.0100, L500.2500 #### [facility] [address] [place], [address] Urea nitrogen [Mass/Vol] 11 mg/dL Normal 4-19 [facility] Comment on above: Performed By: #### L 100.0100, L500.2500 #### [facility] [address] [place], [address] CBC-Complete Blood Cnt No Di ffon 07-31-2024 Erythrocyte distribution width (RBC) [Ratio] 15.8 % High 11.6-14.6 [facility] Comment on above: Performed By: #### L 100.0100, L500.2500 #### [facility] [address] [place], [address] Hematocrit (Bld) [Volume fraction] 29.3 % Low 40-54 [facility] Comment on above: Performed By: #### L 100.0100, L500.2500 #### [facility] [address] [place], [address] Hemoglobin (Bld) [Mass/Vol] 9.4 g/dL Low 13.0-16.5 [facility] Comment on above: Performed By: #### L 100.0100, L500.2500 #### [facility] [address] [place], [address] MCH (RBC) [Entitic mass] 25.3 pg Low 27.0-32.0 [facility] Comment on above: Performed By: #### L 100.0100, L500.2500 #### [facility] [address] [place], [address] MCHC (RBC) [Mass/Vol] 32.1 g/dL Normal 32-36 [facility] Comment on above: Performed By: #### L 100.0100, L500.2500 #### [facility] [address] [place], [address] MCV (RBC) [Entitic vol] 79.0 fL Low 80-94 [facility] Comment on above: Performed By: #### L 100.0100, L500.2500 #### [facility] [address] [place], [address] Platelet mean volume (Bld) [Entitic vol] 11.3 fL Normal 6.2-12.0 [facility] Comment on above: Performed By: #### L 100.0100, L500.2500 #### [facility] [address] [place], [address] Platelets (Bld) [#/Vol] 112 10*3/uL Low 150-450 [facility] Comment on above: Performed By: #### L 100.0100, L500.2500 #### [facility] [address] [place], [address] RBC (Bld) [#/Vol] 3.71 10*6/uL Low 4.6-6.2 [facility] Comment on above: Performed By: #### L 100.0100, L500.2500 #### [facility] [address] [place], [address] RDW SD 45.2 fl High 35.1-43.9 [facility] Comment on above: Performed By: #### L 100.0100, L500.2500 #### [facility] [address] [place], [place], [address] WBC (Bld) [#/Vol] 7.1 10*3/uL Normal 4.4-11.0 [facility] Comment on above: Performed By: #### L 100.0100, L500.2500 #### [facility] [address] [place], [place], [address] Carbon dioxide, total [Moles /volume] in Central venous bloodOrdered By: Stacey Daly on 07-31-2024 CO2 [Moles/Vol] 22.1 mmol/L 21.0-32.0 [facility] Cardiology Visit Reporton Cardiology Visit Report [facility] [address] [place], [place] [address] OFFICE VISIT Date of Service: 07/31/24 MR#: [id number] Acct: [id number] Name: JAYDEN CRAIG Sherrie Rep #: [id number] : 1940 Provider: Dr. Stacey Daly MD Age/Sex: 83/M Location: [facility] Status: Signed HPI HPI History of Present Illness Details: Patient scheduled for staged PCI next week. Discussed. All questions answered. Intake Vital Signs 04/25/24 21:39 07/03/24 11:39 07/31/24 10:34 Height 5 ft 10 in 5 ft 10 in 5 ft 8 in Weight: 173 lb BMI 26.3 BP 100/63 Blood Pressure Location Lt brachial Position Sitting Respiration 18 Pulse 85 Pulse Source Monitor Pulse Oximetry (%) 98 Oxygen Delivery Method room air Intake Visit Reasons: 3 M FU Butting Saw Operator Required: No Accompanied by: Is patient in pain?: No Allergies cefdinir (From Omnicef) Allergy (Intermediate, Verified 07/31/24 10:33) Diarrhea atorvastatin Adverse Reaction (Intermediate, Verified 07/31/24 10:33) myalgias azithromycin (From Zithromax) Adverse Reaction (Verified 07/31/24 10:33) Nausea/Vom/Diarrhea Medications ???Medication ???Instructions ???Recorded ???Confirmed ???Type acetaminophen 325 mg tablet 650 mg PO Q4H PRN Pain Or Fever 07/31/24 History aspirin 81 mg tablet,delayed 81 mg PO DAILY 12/09/18 07/31/24 H istory release (Adult Aspirin Regimen) magnesium oxide 400 mg PO DAILY 12/09/18 07/31/24 History multivitamin 1 tab PO QAM 12/09/18 07/31/24 His tory pantoprazole 40 mg tablet,delayed 40 mg PO BID 12/09/18 07/31/24 Hi story release simvastatin 80 mg tablet 80 mg PO QHS cholesterol 12/09/18 07/31/24 History fluticasone propionate 115 2 inh inhalation BID sob 09/17/21 07/31/24 History mcg-salmeterol 21 mcg/actuation HFA inhaler (Advair HFA) fluticasone propionate 50 2 ea intranasal BID stuffiness 08/0307/31/24 History mcg/actuation nasal spray,suspension ibuprofen 200 mg tablet 200 mg PO Q6H PRN pain #30 tabs 07/31/24 Rx levothyroxine 175 mcg tablet 175 mcg PO DAILY disorder of 06/2907/31/24 History thyroid gland metoprolol tartrate 25 mg tablet 25 mg PO BID 06/30/23 07/31/24 His tory tamsulosin 0.4 mg capsule 0.4 mg PO QHS 06/30/23 07/31/24 Hi story albuterol sulfate 90 mcg/actuation 2 puff inhalation Q4-6H PRN 03/0 06/0607/31/24 History aerosol inhaler shortness of breath or wheezing clopidogrel 75 mg tablet 75 mg PO DAILY #30 tabs 07/03/24 0 07/31/24 Rx Have you fallen in the past year?: Yes [facility] Medical History Paroxysmal atrial fibrillation Mild intermittent asthma without complication Shortness of breath Peptic ulcer, site unspecified, unspecified as acute or chronic, without hemorrhage or perforation Hyperlipidemia Chronic fatigue, unspecified Essential hypertension Constipation CAD (coronary artery disease) 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 Acquired hypothyroidism Abdominal wall hernia Atherosclerosis of coronary artery of [place] heart without angina pectoris Hiatal hernia Hypothyroidism Escobedo's esophagus GERD (gastroesophageal reflux disease) DDD (degenerative disc disease), lumbar Surgical History History of ventral hernia repair Hx laparoscopic cholecystectomy History of repair of hiatal hernia History of umbilical hernia repair 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) History of back surgery ( 04/25/17) Family History Mother Emphysema of lung Father Emphysema of lung Social History Smoking Status: Former smoker quit date: 02/12/81 pack-years: 13 Tobacco: How many years used: 27 Electronic Cigarette Use: not used how long ago did patient quit smokin years ago alcohol intake: former substance use type: does not use ROS Const Const: Negative for fatigue or weakness ENT ENT: Negative for dizziness or balance problems Cardio Chest Pain: No Palpitations: No Edema: None Muscle aches with walking: None Resp Respiratory: Positive for SOB with activity; Negative for SOB at rest or SOB orthopnea SOB lying down GI GI: Negative nausea, vomiting or heartburn Musc Musc: Negative for muscle weakness or balance problems Neuro Neuro: Negative for dizziness, lightheadedness, near syncope, syncope or weakness Endo Endo: Negative for fatigue Supplemental Info Supplemental Information Labs: HDL Cholesterol 60 mg/dL (40-) Cholesterol 122 mg/dL (<=200) Triglycerides 89 mg/dL (-199) Diagnostics: Electrocardiogram (more content not included)... Normal [facility] Chloride assayOrdered By: Darryl Daly on 07-31-2024 Chloride [Moles/Vol] 95 mmol/L Low 98-108 [facility] Erythrocyte distribution wid th ratioOrdered By: Stacey Daly on 07-31-2024 Erythrocyte distribution width (RBC) [Ratio] 15.8 % High 11.6-14.6 [facility] Erythrocyte distribution wid th standard deviationOrdered By: Stacey Daly on 07-31-2024 Erythrocyte distribution width (RBC) [Ratio] 45.2 fl High 35.1-43.9 [facility] Glomerular filtration rate ( GFR) estimation/1.73 sq m using serum, plasma, or whole bOrdered By: Stacey Daly on 07-31-2024 GFR/1.73 sq M.predicted among non-blacks MDRD (S/P/Bld) [Vol rate/Area] 89 mL/min/{1.73_m2} >60 [facility] Comment on above: mL/min/1.73m2 CKD-EP I Creatinine Equation (2020) Hematocrit Auto (Bld) [Volum e fraction]Ordered By: Stacey Daly on 07-31-2024 Hematocrit (Bld) [Volume fraction] 29.3 % Low 40-54 [facility] Hemoglobin measurementOrdere d By: Stacey Daly on 07-31-2024 Hemoglobin (Bld) [Mass/Vol] 9.4 g/dL Low 13.0-16.5 [facility] International normalized rat io (INR) calculationOrdered By: Stacey Daly on 07-31-2024 INR Coag (Bld) [Relative time] 1.1 {INR} [facility] MCV (mean corpuscular volume ) determinationOrdered By: Stacey Daly on 07-31-2024 MCV (RBC) [Entitic vol] 79.0 fL Low 80-94 [facility] Mean corpuscular hemoglobin (MCH) determinationOrdered By: Staceydaryl Daly on 07-31-2024 MCH (RBC) [Entitic mass] 25.3 pg Low 27.0-32.0 [facility] Mean corpuscular hemoglobin concentration (MCHC) determinationOrdered By: Staceydaryl Daly on 07-31-2024 MCHC (RBC) [Mass/Vol] 32.1 g/dL 32-36 [facility] Mean platelet volume determi nationOrdered By: Stacey Daly on 07-31-2024 Platelet mean volume (Bld) [Entitic vol] 11.3 fL 6.2-12.0 [facility] Platelet countOrdered By: Darryl Daly on 07-31-2024 Platelets (Bld) [#/Vol] 112 10*3/uL Low 150-450 [facility] Potassium measurement (mass/ volume)Ordered By: Stacey Daly on 07-31-2024 Potassium (Unsp spec) [Mass/Vol] 4.5 mmol/L 3.3-5.1 [facility] Prothrombin Time w/INRon INR Coag (PPP) [Relative time] 1.1 {INR} Normal [facility] Comment on above: Performed By: #### L 100.0100, L500.2500 #### [facility] Laboratory [address] [place], [address] PT Coag (PPP) [Time] 14.9 s Normal 11.7-14.9 [facility] Comment on above: Performed By: #### L 100.0100, L500.2500 #### [facility] [address] [place], [address] Prothrombin timeOrdered By: Stacey Daly on 07-31-2024 PT Coag (PPP) [Time] 14.9 s 11.7-14.9 [facility] RBC Auto (Bld) [#/Vol]Ordere d By: Stacey Daly on 07-31-2024 RBC (Bld) [#/Vol] 3.71 10*6/uL Low 4.6-6.2 [facility] Serum creatinine measurement (mass/volume)Ordered By: Stacey Daly on 07-31-2024 Creatinine [Mass/Vol] 0.80 mg/dL 0.70-1.20 [facility] Serum glucose measurement (m ass/volume)Ordered By: Stacey Daly on 07-31-2024 Glucose [Mass/Vol] 110 mg/dL High 70-99 [facility] Serum or plasma calcium tamara urement (mass/volume)Ordered By: Stacey Daly on 07-31-2024 Calcium [Mass/Vol] 8.8 mg/dL 7.6-11.0 [facility] Serum or plasma urea nitroge n measurement (mass/volume)Ordered By: Stacey Daly on 07-31-2024 Urea nitrogen [Mass/Vol] 11 mg/dL 4-19 [facility] Sodium levelOrdered By: Liang Daly on 07-31-2024 Sodium [Moles/Vol] 128 mmol/L Low 133-145 [facility] White blood cell (WBC) count Ordered By: Stacey Daly on 07-31-2024 WBC (Bld) [#/Vol] 7.1 10*3/uL 4.4-11.0 [facility] ACT Activated Clotting Timeo n 07-04-2024 ACTk CLOT TIME 262 sec High 74-137 [facility] Comment on above: Performed By: #### L 500.2500 #### [facility] Laboratory [address] [place], [address] Anion gap in Serum or Plasma Ordered By: Stacey Daly on 07-04-2024 Anion gap [Moles/Vol] 11 mmol/L - [facility] BUN/creatinine ratioOrdered By: Staceydaryl Daly on 07-04-2024 Urea nitrogen/Creatinine [Mass ratio] 13.8 mg/mg - [facility] Bilirubin, totalOrdered By: Staceydaryl Daly on 07-04-2024 Bilirubin [Mass/Vol] 0.44 mg/dL 0.00-1.30 [facility] CBC-Complete Blood Cnt No Di ffon 07-04-2024 Erythrocyte distribution width (RBC) [Ratio] 16.2 % High 11.6-14.6 [facility] Comment on above: Performed By: #### L 100.0100, L500.2500 #### [facility] [address] [place], [address] Hematocrit (Bld) [Volume fraction] 28.4 % Low 40-54 [facility] Comment on above: Performed By: #### L 100.0100, L500.2500 #### [facility] [address] [place], [address] Hemoglobin (Bld) [Mass/Vol] 9.2 g/dL Low 13.0-16.5 [facility] Comment on above: Performed By: #### L 100.0100, L500.2500 #### [facility] [address] [place], [address] MCH (RBC) [Entitic mass] 25.5 pg Low 27.0-32.0 [facility] Comment on above: Performed By: #### L 100.0100, L500.2500 #### [facility] [address] [place], [address] MCHC (RBC) [Mass/Vol] 32.4 g/dL Normal 32-36 [facility] Comment on above: Performed By: #### L 100.0100, L500.2500 #### [facility] [address] [place], [address] MCV (RBC) [Entitic vol] 78.7 fL Low 80-94 [facility] Comment on above: Performed By: #### L 100.0100, L500.2500 #### [facility] [address] [place], [address] Platelet mean volume (Bld) [Entitic vol] 10.9 fL Normal 6.2-12.0 [facility] Comment on above: Performed By: #### L 100.0100, L500.2500 #### [facility] [address] [place], [address] Platelets (Bld) [#/Vol] 117 10*3/uL Low 150-450 [facility] Comment on above: Performed By: #### L 100.0100, L500.2500 #### [facility] [address] [place], [address] RBC (Bld) [#/Vol] 3.61 10*6/uL Low 4.6-6.2 [facility] Comment on above: Performed By: #### L 100.0100, L500.2500 #### [facility] [address] [place], [address] RDW SD 46.5 fl High 35.1-43.9 [facility] Comment on above: Performed By: #### L 100.0100, L500.2500 #### [facility] [address] [place], [address] WBC (Bld) [#/Vol] 10.3 10*3/uL Normal 4.4-11.0 [facility] Comment on above: Performed By: #### L 100.0100, L500.2500 #### [facility] [address] [place], [address] Carbon dioxide, total [Moles /volume] in Central venous bloodOrdered By: Stacey Daly on 07-04-2024 CO2 [Moles/Vol] 19.6 mmol/L Low 21.0-32.0 [facility] Chloride assayOrdered By: Darryl Daly on 07-04-2024 Chloride [Moles/Vol] 97 mmol/L Low 98-108 [facility] Comprehensive Metabolic Prof ilon 07-04-2024 Albumin [Mass/Vol] 3.8 g/dL Normal 3.4-4.8 [facility] Comment on above: Performed By: #### L 100.0100, L500.2500 #### [facility] Laboratory [address] [place], [address] Albumin/Globulin [Mass ratio] 1.8 {ratio} Normal 0.9-2.4 [facility] Comment on above: Performed By: #### L 100.0100, L500.2500 #### [facility] [address] [place], [address] ALK PHOS 82 U/L Normal 40-129 [facility] Comment on above: Performed By: #### L 100.0100, L500.2500 #### [facility] [address] [place], [address] ALT [Catalytic activity/Vol] 13 U/L Normal <=46 [facility] Comment on above: Performed By: #### L 100.0100, L500.2500 #### [facility] [address] [place], [address] AST [Catalytic activity/Vol] 24 U/L Normal <=37 [facility] Comment on above: Performed By: #### L 100.0100, L500.2500 #### [facility] Laboratory [address] [place], [address] Bilirubin [Mass/Vol] 0.44 mg/dL Normal 0.00-1.30 [facility] Comment on above: Performed By: #### L 100.0100, L500.2500 #### [facility] [address] [place], [address] BUN/CRE 13.8 RATIO Normal 10-20 [facility] Comment on above: Performed By: #### L 100.0100, L500.2500 #### [facility] [address] [place], [address] Calcium [Mass/Vol] 8.6 mg/dL Normal 7.6-11.0 [facility] Comment on above: Performed By: #### L 100.0100, L500.2500 #### [facility] [address] [place], [address] Chloride [Moles/Vol] 97 mmol/L Low 98-108 [facility] Comment on above: Performed By: #### L 100.0100, L500.2500 #### [facility] Laboratory [address] [place], [address] CO2 [Moles/Vol] 19.6 mmol/L Low 21.0-32.0 [facility] Comment on above: Performed By: #### L 100.0100, L500.2500 #### [facility] Laboratory [address] [place], [address] Creatinine [Mass/Vol] 0.69 mg/dL Low 0.70-1.20 [facility] Comment on above: Performed By: #### L 100.0100, L500.2500 #### [facility] [address] [place], [address] ECRCL 74.77 ml/min Normal 50-250 [facility] Comment on above: Performed By: #### L 100.0100, L500.2500 #### [facility] Laboratory [address] [place], [address] GAP 11 Normal 5-15 [facility] Comment on above: Performed By: #### L 100.0100, L500.2500 #### [facility] Laboratory [address] [place], [address] GFR/1.73 sq M.predicted among non-blacks MDRD (S/P/Bld) [Vol rate/Area] 93 mL/min/{1.73_m2} Normal >60 [facility] Comment on above: Result Comment: mL/m in/1.73m2 CKD-EPI Creatinine Equation (2020) Performed By: #### L 100.0100, L500.2500 #### [facility] [address] [place], [address] Globulin (S) [Mass/Vol] 2.2 g/dL Normal 2.2-4.2 [facility] Comment on above: Performed By: #### L 100.0100, L500.2500 #### [facility] [address] [place], [address] Glucose [Mass/Vol] 100 mg/dL High 70-99 [facility] Comment on above: Performed By: #### L 100.0100, L500.2500 #### [facility] [address] [place], [address] Potassium [Moles/Vol] 4.3 mmol/L Normal 3.3-5.1 [facility] Comment on above: Performed By: #### L 100.0100, L500.2500 #### [facility] [address] [place], [address] Sodium [Moles/Vol] 127 mmol/L Low 133-145 [facility] Comment on above: Performed By: #### L 100.0100, L500.2500 #### [facility] [address] [place], [address] T PROT 6.0 g/dL Normal 5.9-8.4 [facility] Comment on above: Performed By: #### L 100.0100, L500.2500 #### [facility] [address] [place], [address] Urea nitrogen [Mass/Vol] 10 mg/dL Normal 4-19 [facility] Comment on above: Performed By: #### L 100.0100, L500.2500 #### [facility] [address] [place], [address] Erythrocyte distribution wid th ratioOrdered By: Stacey Daly on 07-04-2024 Erythrocyte distribution width (RBC) [Ratio] 16.2 % High 11.6-14.6 [facility] Erythrocyte distribution wid th standard deviationOrdered By: Stacey Daly on 07-04-2024 Erythrocyte distribution width (RBC) [Ratio] 46.5 fl High 35.1-43.9 [facility] Glomerular filtration rate ( GFR) estimation/1.73 sq m using serum, plasma, or whole bOrdered By: Stacey Daly on 07-04-2024 GFR/1.73 sq M.predicted among non-blacks MDRD (S/P/Bld) [Vol rate/Area] 93 mL/min/{1.73_m2} >60 [facility] Comment on above: mL/min/1.73m2 CKD-EP I Creatinine Equation (2020) Hematocrit Auto (Bld) [Volum e fraction]Ordered By: Stacey Daly on 07-04-2024 Hematocrit (Bld) [Volume fraction] 28.4 % Low 40-54 [facility] Hemoglobin measurementOrdere d By: Stacey Daly on 07-04-2024 Hemoglobin (Bld) [Mass/Vol] 9.2 g/dL Low 13.0-16.5 [facility] Laboratory - Chemistry and C hemistry - challengeOrdered By: Stacey Daly on 07-04-2024 AST [Catalytic activity/Vol] 24 U/L <38 [facility] MCV (mean corpuscular volume ) determinationOrdered By: Stacey Daly on 07-04-2024 MCV (RBC) [Entitic vol] 78.7 fL Low 80-94 [facility] Mean corpuscular hemoglobin (MCH) determinationOrdered By: Stacey Daly on 07-04-2024 MCH (RBC) [Entitic mass] 25.5 pg Low 27.0-32.0 [facility] Mean corpuscular hemoglobin concentration (MCHC) determinationOrdered By: Stacey Daly on 07-04-2024 MCHC (RBC) [Mass/Vol] 32.4 g/dL 32-36 [facility] Mean platelet volume determi nationOrdered By: Stacey Daly on 07-04-2024 Platelet mean volume (Bld) [Entitic vol] 10.9 fL 6.2-12.0 [facility] Platelet countOrdered By: Darryl Daly on 07-04-2024 Platelets (Bld) [#/Vol] 117 10*3/uL Low 150-450 [facility] Potassium measurement (mass/ volume)Ordered By: Stacey Daly on 07-04-2024 Potassium (Unsp spec) [Mass/Vol] 4.3 mmol/L 3.3-5.1 [facility] RBC Auto (Bld) [#/Vol]Ordere d By: Stacey Daly on 07-04-2024 RBC (Bld) [#/Vol] 3.61 10*6/uL Low 4.6-6.2 [facility] Serum creatinine measurement (mass/volume)Ordered By: Stacey Daly on 07-04-2024 Creatinine [Mass/Vol] 0.69 mg/dL Low 0.70-1.20 [facility] Serum globulin measurementOr dered By: Stacey Daly on 07-04-2024 Globulin (S) [Mass/Vol] 2.2 g/dL 2.2-4.2 [facility] Serum glucose measurement (m ass/volume)Ordered By: Stacey Daly on 07-04-2024 Glucose [Mass/Vol] 100 mg/dL High 70-99 [facility] Serum or plasma alanine jack otransferase (ALT) measurementOrdered By: Stacey Daly on 07-04-2024 ALT [Catalytic activity/Vol] 13 U/L <47 [facility] Serum or plasma albumin tamara urement (mass/volume)Ordered By: Stacey Daly on 07-04-2024 Albumin [Mass/Vol] 3.8 g/dL 3.4-4.8 [facility] Serum or plasma albumin/glob ulin mass ratioOrdered By: Stacey Daly on 07-04-2024 Albumin/Globulin [Mass ratio] 1.8 {ratio} 0.9-2.4 [facility] Serum or plasma alkaline khloe sphatase measurementOrdered By: Stacey Daly on 07-04-2024 ALP [Catalytic activity/Vol] 82 U/L 40-129 [facility] Serum or plasma calcium tamara urement (mass/volume)Ordered By: Stacey Daly on 07-04-2024 Calcium [Mass/Vol] 8.6 mg/dL 7.6-11.0 [facility] Serum or plasma urea nitroge n measurement (mass/volume)Ordered By: Stacey Daly on 07-04-2024 Urea nitrogen [Mass/Vol] 10 mg/dL 4-19 [facility] Sodium levelOrdered By: Liang Daly on 07-04-2024 Sodium [Moles/Vol] 127 mmol/L Low 133-145 [facility] Total proteinOrdered By: Dereje Daly on 07-04-2024 Protein [Mass/Vol] 6.0 g/dL 5.9-8.4 [facility] White blood cell (WBC) count Ordered By: Stacey Daly on 07-04-2024 WBC (Bld) [#/Vol] 10.3 10*3/uL 4.4-11.0 [facility] 12 Lead EKGon 07-03-2024 12 Lead EKG [facility] Cardiovascular Services [address] [place] [address] 12 Lead EKG 07/03/24 1219 MR#: [id number] Acct: [id number] Name: JAYDEN CRAIG Rep #: [id number] : 1940 83 From: Adam Saleh MD Attending Dr: Dr. Stacey Daly MD Status: DIS GLEN Ordering Dr: Stacey Daly MD Date: 07/03/24 Location: [facility] Sex: M C Admitted: 07/03/24 Test Reason : PCI Blood Pressure : */* mmHG Vent. Rate : 78 BPM Atrial Rate : 78 BPM P-R Int : 184 ms QRS Dur : 92 ms QT Int : 402 ms P-R-T Axes : 32 3 20 degrees QTcB Int : 458 ms Normal sinus rhythm Normal ECG When compared with ECG of 19-Sep-2021 05:30, No significant change was found Confirmed by JOSEPH MALAVE, KIMBERLEY ([id number]), video news editor HUONG NOONAN ([id number]) on 07/08/2024 6:57:20 AM Referred By: Stacey Daly Confirmed By: KIMBERLEY SALEH MD 07/08/24 0657 Date Adam Saleh MD CC: Dr. Stacey Daly MD; Dr. Eloisa Espinal MD Signed Normal [facility] Cardiac Cath Interventionon 07-03-2024 Cardiac Cath Intervention [facility] Imaging Services [address] [place] [address] Cardiac Cath Intervention MR#: [id number] Acct: [id number] Name: JAYDEN CRAIG Rep #: [id number] : 1940 83 From: Stacey Daly MD PCP: Dr. Eloisa Espinal MD Status:ADM GLEN Patient Name: JAYDEN CRAIG Study Date: 07/03/2024 Performing: Stacey Daly MD Ht: 70 inches 177.8 cm : 1940 Wt: 178.2 lbs 80.74 kg Age: 83 Gender: male BSA: 1.99 PROCEDURE(S) PERFORMED DC04-(66197)LHC/COR/C ABG IC12-(78134/C9600)DARSHANA W/WO PTCA, SINGLE CORONARY ARTERY IC11A-(74409)CORONARY INTRAVASCULAR LITHOTRIPSY CLINICAL PROFILE AND CO-MORBIDITIES Indications: Stable Known CAD Heart Failure: None Stress/Imaging Stress Test w/SPECT MPI: Yes Result: Positive Intermediate Risk Stress Test with SPECT MPI: Positive Intermediate Risk CAD Presentations: Other: Dyspnea CONCLUSIONS 99% Mid LAD; 100% D1; VASQUES to LAD patent; SVG to D1 patent 90% distal OM1 80% Prox RCA, 99% ostial RPLV; SVG to RPLV patent LVEDP 13 mm Hg Successful IVL/DARSHANA Prox RCA using [place] 3.5x8 mm (post-dilated RECOMMENDATIONS ASA Indefinitley P2Y12 inhibitors for atleast 6 months Staged PCI to OM DESCRIPTION OF PROCEDURE The patient arrived to the procedure lab. The risks and benefits of the procedure as well as a full description of our services here and lack of surgical backup were fully explained to the patient and/or their significant other prior to the catheterization. The Timeout was completed, verifying the correct patient and procedure. The patient's procedural site was prepped and draped in the usual fashion. Local anesthetic was given subcutaneously to right groin region with Lidocaine 2%. Using a modified Seldinger technique, arterial access was obtained via the right femoral artery, with Micropuncture set, arterial access was obtained via the right femoral artery, a 5Fr sheath was inserted.. LV to AO pullback pressures were then recorded. Left Coronary Artery selective angiography was performed in multiple views using a 5 Fr. JL4 catheter. Right Coronary Artery selective angiography was then performed in multiple views using a 5 Fr. 3DRC (Cristopher) catheter. Saphenous Vein graft to the OM 1 selective angiography was performed in multiple views using a 5 Fr. 3DRC (Cristopher) catheter. Left internal mammary artery graft to the LAD selective angiography was performed in multiple views using a 5 Fr. 3DRC (Cristopher) catheter. Saphenous Vein graft to the RPL selective angiography was performed in multiple views using a 5 Fr. AL 1 catheter. Right Coronary Artery selective angiography was then performed in multiple views using a 5 Fr. 3DRC (Cristopher) catheterThe images were reviewed and options discussed. A decision was then made to proceed with an Intervention, IVUS or other adjunct procedure. Arterial sheath was exchanged for a 6fr 65 cm Destination sheath JR4 Guide catheter was inserted and engaged into the RCA. Runthrough Guide wire was advanced to the RCA. NC Emerge 2.50x12 Balloon catheter was inserted. PTCA balloon inflated at 18 atms for 36 secs. PTCA balloon inflated at 22 atms for 27 secs. Angiogram performed post balloon dilatation. PTCA balloon inflated at 4 atms for 6 secs. Guide catheter was exchanged for a 6fr AL 0.75 PTCA balloon inflated at 4 atms for 5 secs. PTCA balloon inflated at 6 atms for 21 secs. PTCA balloon inflated at 4 atms for 17 secs. PTCA balloon inflated at 4 atms for 22 secs. PTCA balloon inflated at 4 atms for 5 secs. [place] Elliott 3.0x15 Drug Eluting stent was inserted. Angiogram performed post stent deployment. NC Emerge 3.25x12 Balloon catheter was inserted. Angiogram performed post balloon dilatation. [place] 3.5x8 Drug Eluting stent was inserted. Angiogram performed post stent deployment. NC Euphora 4.0x6 Balloon catheter was inserted. Angiogram performed post balloon dilatation. NC Euphora 4.5x8 Balloon catheter was inserted. Angiogram performed post balloon dilatation. 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 Normal [facility] Discharge Instructionon 05-2 Discharge Instruction [facility] Medical Records Department [address] [place] [address] Instructions for Home/Discharge Instructions 07/03/24 1123 MR#: [id number] Acct: [id number] Name: JAYDEN CRAIG Rep #: [id number] : 1940 83 From: Stacey Daly MD PCP: Dr. Eloisa Espinal MD Status:REG SDC Discharge Instructions DC O2, CPAP, BIPAP needs Home O2 Discharge instructions: No Dressing / Incision Lifting Restrictions: No heavy lifting bending or strenuous physical activity for 5 days. Dressing / Incision Call your doctor if your incision/area has: Continuous Slow Oozing, Sudden Increased Bleeding, Increased Pain/ Swelling, Increased Redness and Foul Smelling Discharge Follow Up Care Please Follow Up With: Stacey Daly MD When: 2 weeks Test Results: Test results from this visit will be discussed in further detail at your follow-up appointment, if applicable. Discharge Plan Admission Attending Provider: Stacey Daly Primary Care Provider: Eloisa Espinal Instructions Print Language: Kyrgyz Discharge Orders/Prescriptions Prescriptions: New clopidogrel 75 mg Tablet 75 mg PO DAILY Qty: 30 6RF Continued aspirin [Adult Aspirin Regimen] 81 mg tablet,delayed release (DR/EC) 81 mg PO DAILY magnesium oxide 400 mg magnesium capsule 400 mg PO DAILY acetaminophen 325 mg tablet 650 mg PO Q4H PRN (Reason: Pain Or Fever) multivitamin Tablet 1 tab PO QAM simvastatin 80 mg tablet 80 mg PO QHS albuterol sulfate 90 mcg/actuation HFA aerosol inhaler 2 puff inhalation Q4-6H PRN (Reason: shortness of breath or wheezing) pantoprazole 40 mg tablet,delayed release (DR/EC) 40 mg PO BID fluticasone propion-salmeterol [Advair HFA] 115-21 mcg/actuation HFA aerosol inhaler 2 inh INHALATION BID Patient Comments: INHALE 2 PUFFS INSTRUCTED TWICE DAILY. RINSE MOUTH AFTER USE. fluticasone propionate 50 mcg/actuation spray,suspension 2 ea INTRANASAL BID Patient Comments: USE 2 SPRAYS IN EACH NOSTRIL ONCE DAILY. RINSE MOUTH AFTER USE. ibuprofen 200 mg tablet 200 mg PO Q6H PRN (Reason: pain) Qty: 30 0RF levothyroxine 175 mcg tablet 175 mcg PO DAILY tamsulosin 0.4 mg capsule 0.4 mg PO QHS metoprolol tartrate 25 mg tablet 25 mg PO BID oxycodone-acetaminoph en [Percocet] 5-325 mg tablet 1 tab PO Q8H PRN (Reason: pain) 4 Days Qty: 10 0RF Referrals / Follow Up: Eloisa Espinal MD [Primary Care Provider] - Disposition Disposition (needs filled in before D/C Order can be placed): Home, Self Care 07/03/24 1130 Stacey Daly MD CC: Dr. Eloisa Espinal MD Signed Normal [facility] Absolute lymphocyte countOrd ered By: Stacey Daly on 06-25-2024 Lymphocytes Auto (Unsp spec) [#/Vol] 0.64 10*3/uL Low 0.83-4.51 [facility] Absolute neutrophil countOrd ered By: Stacey Daly on 06-25-2024 Neutrophils (Bld) [#/Vol] 3.5 10*3/uL 2.0-7.7 [facility] Automated lymphocyte count a s percentage of total leukocytesOrdered By: Stacey Daly on 06-25-2024 Lymphocytes/100 WBC Auto (Unsp spec) 11.3 % Low 19-41 [facility] Basophil percentageOrdered B y: Stacey Daly on 06-25-2024 Basophils/100 WBC (Bld) 0.4 % 0-1 [facility] CBC W/Diff, Automatedon 06-12 Absolute Lymph 0.64 X10 3/uL Low 0.83-4.51 [facility] Comment on above: Performed By: #### L 100.0100, L500.2500 #### [facility] Laboratory [address] [place], [address] Absolute Neut 3.5 X10 3/uL Normal 2.0-7.7 [facility] Comment on above: Performed By: #### L 100.0100, L500.2500 #### [facility] [address] [place], [address] Basophils/100 WBC (Bld) 0.4 % Normal 0-1 [facility] Comment on above: Performed By: #### L 100.0100, L500.2500 #### [facility] [address] [place], [address] Eosinophils/100 WBC (Bld) 1.2 % Normal 0-5 [facility] Comment on above: Performed By: #### L 100.0100, L500.2500 #### [facility] [address] [place], [address] Erythrocyte distribution width (RBC) [Ratio] 16.2 % High 11.6-14.6 [facility] Comment on above: Performed By: #### L 100.0100, L500.2500 #### [facility] [address] [place], [address] Hematocrit (Bld) [Volume fraction] 30.9 % Low 40-54 [facility] Comment on above: Performed By: #### L 100.0100, L500.2500 #### [facility] [address] [place], [address] Hemoglobin (Bld) [Mass/Vol] 9.8 g/dL Low 13.0-16.5 [facility] Comment on above: Performed By: #### L 100.0100, L500.2500 #### [facility] [address] [place], [address] IG% 1.900 High 0.0-0.9 [facility] Comment on above: Result Comment: IG% - Immature Granulocytes (promyelocytes, myelocytes and metamyelocytes) > 1% indicates that a LEFT SHIFT is Present. Performed By: #### L 100.0100, L500.2500 #### [facility] [address] [place], [address] Lymphocytes/100 WBC (Bld) 11.3 % Low 19-41 [facility] Comment on above: Performed By: #### L 100.0100, L500.2500 #### [facility] [address] [place], [address] MCH (RBC) [Entitic mass] 25.5 pg Low 27.0-32.0 [facility] Comment on above: Performed By: #### L 100.0100, L500.2500 #### [facility] [address] [place], [address] MCHC (RBC) [Mass/Vol] 31.7 g/dL Low 32-36 [facility] Comment on above: Performed By: #### L 100.0100, L500.2500 #### [facility] [address] [place], [address] MCV (RBC) [Entitic vol] 80.5 fL Normal 80-94 [facility] Comment on above: Performed By: #### L 100.0100, L500.2500 #### [facility] [address] [place], [address] Monocytes/100 WBC (Bld) 23.9 % High 0-10 [facility] Comment on above: Performed By: #### L 100.0100, L500.2500 #### [facility] [address] [place], [address] Neutrophils/100 WBC (Bld) 61.3 % Normal 47-70 [facility] Comment on above: Performed By: #### L 100.0100, L500.2500 #### [facility] [address] [place], [address] Nucleated RBC (Bld) [#/Vol] 0 10*3/uL Normal 0-5 [facility] Comment on above: Performed By: #### L 100.0100, L500.2500 #### [facility] [address] [place], [address] Platelet mean volume (Bld) [Entitic vol] 11.3 fL Normal 6.2-12.0 [facility] Comment on above: Performed By: #### L 100.0100, L500.2500 #### [facility] [address] [place], [address] Platelets (Bld) [#/Vol] 118 10*3/uL Low 150-450 [facility] Comment on above: Performed By: #### L 100.0100, L500.2500 #### [facility] [address] [place], [address] RBC (Bld) [#/Vol] 3.84 10*6/uL Low 4.6-6.2 [facility] Comment on above: Performed By: #### L 100.0100, L500.2500 #### [facility] [address] [place], [address] RDW SD 47.1 fl High 35.1-43.9 [facility] Comment on above: Performed By: #### L 100.0100, L500.2500 #### [facility] [address] [place], [address] WBC (Bld) [#/Vol] 5.7 10*3/uL Normal 4.4-11.0 [facility] Comment on above: Performed By: #### L 100.0100, L500.2500 #### [facility] [address] [place], [address] Calculated very low density lipoprotein (VLDL) cholesterol measurementOrdered By: Stacey Daly on 06-25-2024 Calculated very low density lipoprotein (VLDL) cholesterol measurement 18 mg/dL 5-40 [facility] Chest PA and Lateralon 06-25 Chest PA and Lateral [facility] Services [address] [place] [address] Chest PA and Lateral MR#: [id number] Acct: [id number] Name: JAYDEN CRAIG Sherrie Rep #: [id number] : 1940 M 83 From: Bala Arellano MD PCP: Dr. Eloisa Espinal MD Status: PRE [facility] [place] Study: Chest PA and Lateral Date of Exam: 06/25/24 Exam# [id number] Ordering Dr: Stacey Daly MD PROCEDURE: CHEST PA AND LATERAL 06/25/2024 REASON FOR EXAM: PRE-PROCEDURE DIAGNOSTIC TECHNIQUE: Frontal and lateral views of the chest. COMPARISON: 09/17/2021 FINDINGS: The lungs appear clear. There is again note of elevation of the right hemidiaphragm. Status post median sternotomy and cholecystectomy again noted. Tortuosity of the thoracic aorta again seen. RAD/Chest PA and Lateral IMPRESSION: No evidence of acute disease. Reading Location: [id number] CC: Dr. Stacey Daly MD; Dr. Eloisa Espinal MD Data Collection Associate: Signed Normal [facility] Comprehensive Metabolic Prof ilon 06-25-2024 Albumin [Mass/Vol] 4.0 g/dL Normal 3.4-4.8 [facility] Comment on above: Performed By: #### L 100.0100, L500.2500 #### [facility] [address] [facility] [address] Albumin/Globulin [Mass ratio] 1.7 {ratio} Normal 0.9-2.4 [facility] Comment on above: Performed By: #### L 100.0100, L500.2500 #### [facility] [address] [facility] [address] ALK PHOS 91 U/L Normal 40-129 [facility] Comment on above: Performed By: #### L 100.0100, L500.2500 #### [facility] [address] [facility] [address] ALT [Catalytic activity/Vol] 15 U/L Normal <=46 [facility] Comment on above: Performed By: #### L 100.0100, L500.2500 #### [facility] [address] [place], [address] AST [Catalytic activity/Vol] 27 U/L Normal <=37 [facility] Comment on above: Performed By: #### L 100.0100, L500.2500 #### [facility] [address] [place], [address] Bilirubin [Mass/Vol] 0.39 mg/dL Normal 0.00-1.30 [facility] Comment on above: Performed By: #### L 100.0100, L500.2500 #### [facility] [address] [place], [address] BUN/CRE 15.3 RATIO Normal 10-20 [facility] Comment on above: Performed By: #### L 100.0100, L500.2500 #### [facility] [address] [place], [address] Calcium [Mass/Vol] 8.7 mg/dL Normal 7.6-11.0 [facility] Comment on above: Performed By: #### L 100.0100, L500.2500 #### [facility] [address] [place], [address] Chloride [Moles/Vol] 97 mmol/L Low 98-108 [facility] Comment on above: Performed By: #### L 100.0100, L500.2500 #### [facility] [address] [place], [address] CO2 [Moles/Vol] 22.1 mmol/L Normal 21.0-32.0 [facility] Comment on above: Performed By: #### L 100.0100, L500.2500 #### [facility] [address] [place], [address] Creatinine [Mass/Vol] 0.80 mg/dL Normal 0.70-1.20 [facility] Comment on above: Performed By: #### L 100.0100, L500.2500 #### [facility] [address] [place], [address] GAP 10 Normal 5-15 [facility] Comment on above: Performed By: #### L 100.0100, L500.2500 #### [facility] [address] [place], [address] GFR/1.73 sq M.predicted among non-blacks MDRD (S/P/Bld) [Vol rate/Area] 89 mL/min/{1.73_m2} Normal >60 [facility] Comment on above: Result Comment: mL/m in/1.73m2 CKD-EPI Creatinine Equation (2020) Performed By: #### L 100.0100, L500.2500 #### [facility] [address] [place], [address] Globulin (S) [Mass/Vol] 2.4 g/dL Normal 2.2-4.2 [facility] Comment on above: Performed By: #### L 100.0100, L500.2500 #### [facility] [address] [place], [address] Glucose [Mass/Vol] 118 mg/dL High 70-99 [facility] Comment on above: Performed By: #### L 100.0100, L500.2500 #### [facility] [address] [place], [address] Potassium [Moles/Vol] 4.6 mmol/L Normal 3.3-5.1 [facility] Comment on above: Performed By: #### L 100.0100, L500.2500 #### [facility] [address] [place], [address] Sodium [Moles/Vol] 130 mmol/L Low 133-145 [facility] Comment on above: Performed By: #### L 100.0100, L500.2500 #### [facility] [address] [place], [address] T PROT 6.4 g/dL Normal 5.9-8.4 [facility] Comment on above: Performed By: #### L 100.0100, L500.2500 #### [facility] [address] [place], [address] Urea nitrogen [Mass/Vol] 12 mg/dL Normal 4-19 [facility] Comment on above: Performed By: #### L 100.0100, L500.2500 #### [facility] [address] [place], [address] Eosinophil percentageOrdered By: Stacey Daly on 06-25-2024 Eosinophils/100 WBC (Bld) 1.2 % 0-5 [facility] Immature granulocytes/100 WB C Auto (Bld)Ordered By: Stacey Daly on 06-25-2024 Immature granulocytes/100 WBC (Bld) 1.900 % High 0.0-0.9 [facility] Comment on above: IG% - Immature Granu locytes (promyelocytes, myelocytes and metamyelocytes) > 1% indicates that a LEFT SHIFT is Present. International normalized rat io (INR) calculationOrdered By: Stacey Daly on 06-25-2024 INR Coag (Bld) [Relative time] 1.2 {INR} [facility] LDL calc ser/plasOrdered By: Stacey Daly on 06-25-2024 Cholesterol in LDL [Mass/Vol] 45 mg/dL [facility] Comment on above: Wvvjofchfd=099-709 m g/dL & Higher Ouih=746 mg/dL or greater Lipid Profileon 06-25-2024 CHOL:HDL 2.05 Normal [facility] Comment on above: Performed By: #### L 100.0100, L500.2500 #### [facility] [address] [place], [address] Cholesterol [Mass/Vol] 122 mg/dL Normal <=200 [facility] Comment on above: Result Comment: Chol esterol level, Desirable <200 mg/dL Borderline high cholesterol 200-239 mg/dL High cholesterol >=240 mg/dL Recommendations of the NCEP Adult Treatment Panel for the following risk-cutoff thresholds for the [place] population. Performed By: #### L 100.0100, L500.2500 #### [facility] [address] [place], [address] Cholesterol in HDL [Mass/Vol] 60 mg/dL Normal [facility] Comment on above: Result Comment: Angelic onal Cholesterol Education Program (NCEP) guidelines: <40 mg/dL: Low HDL-cholesterol (major risk factor for CHD) >= 60 mg/dL: High HDL-cholesterol (negative risk factor for CHD) HDL-cholesterol is affected by a number of factors, e.g. smoking, exercise, hormones, sex and age. Performed By: #### L 100.0100, L500.2500 #### [facility] [address] [place], [address] Cholesterol in LDL [Mass/Vol] 45 mg/dL Normal [facility] Comment on above: Result Comment: Bord bbvnhg=796-294 mg/dL Higher Cirh=889 mg/dL or greater Performed By: #### L 100.0100, L500.2500 #### [facility] [address] [place], [address] Cholesterol in VLDL [Mass/Vol] 18 mg/dL Normal 5-40 [facility] Comment on above: Performed By: #### L 100.0100, L500.2500 #### [facility] [address] [place], [address] Triglyceride [Mass/Vol] 89 mg/dL Normal [facility] Comment on above: Result Comment: The drugs N-Acetylcysteine and Metamizole may falsely depress this assay. Normal range: <150 mg/dL Borderline High: 150-199 mg/dL High: 200-499 mg/dL Very High: >500 mg/dL Performed By: #### L 100.0100, L500.2500 #### [facility] [address] [place], [address] Monocyte percentageOrdered B y: Stacey Daly on 06-25-2024 Monocytes/100 WBC (Bld) 23.9 % High 0-10 [facility] Neutrophil percentageOrdered By: Stacey Daly on 06-25-2024 Neutrophils/100 WBC (Bld) 61.3 % 47-70 [facility] Nucleated red blood cell per centageOrdered By: Stacey Daly on 06-25-2024 Nucleated RBC/100 WBC (Bld) [Ratio] 0 % 0-5 [facility] Prothrombin Time w/INRon INR Coag (PPP) [Relative time] 1.2 {INR} Normal [facility] Comment on above: Performed By: #### L 100.0100, L500.2500 #### [facility] [address] [place], [place], [address] [phone] PT Coag (PPP) [Time] 15.2 s High 11.7-14.9 [facility] Comment on above: Performed By: #### L 100.0100, L500.2500 #### [facility] [address] [place], [place], [address] [phone] Prothrombin timeOrdered By: Stacey Daly on 06-25-2024 PT Coag (PPP) [Time] 15.2 s High 11.7-14.9 [facility] Screening total cholesterol/ high density lipoprotein (HDL) cholesterol ratioOrdered By: Stacey Daly on 06-25-2024 Cholesterol.total/Christina sterol in HDL [Mass ratio] 2.05 {ratio} [facility] Serum or plasma cholesterol in HDL measurement (mass/volume)Ordered By: Staceydaryl Daly on 06-25-2024 Cholesterol in HDL [Mass/Vol] 60 mg/dL >40 [facility] Comment on above: National Cholesterol Education Program (NCEP) guidelines:<40 mg/dL: Low HDL-cholesterol (major risk factor for CHD)>= 60 mg/dL: High HDL-cholesterol (negative risk factor for CHD)HDL-cholesterol is affected by a number of factors, e.g. smoking, exercise, hormones, sex and age. Serum or plasma cholesterol measurement (mass/volume)Ordered By: Stacey Daly on 06-25-2024 Cholesterol [Mass/Vol] 122 mg/dL <201 [facility] Comment on above: Cholesterol level, D esirable <200 mg/dLBorderline high cholesterol 200-239 mg/dLHigh cholesterol >=240 mg/dLRecommendations of the NCEP Adult Treatment Panel for the following risk-cutoff thresholds for the [place] population. TSH DL <= 0.005 mIU/L QnOrde red By: Stacey Daly on 06-25-2024 TSH Qn 1.080 uIU/mL 0.300-4.200 [facility] Thyroid Stim Hormone (TSH)on 06-25-2024 TSH 1.080 uIU/mL Normal 0.300-4.200 [facility] Comment on above: Performed By: #### L 100.0100, L500.2500 #### [facility] [address] [facility] [place], [address] Triglycerides measurementOrd ered By: Stacey Daly on 06-25-2024 Triglyceride [Mass/Vol] 89 mg/dL <199 [facility] Comment on above: The drugs N-Acetylcy steine and Metamizole may falsely depress this assay. Normal range: <150 mg/dLBorderline High: 150-199 mg/dLHigh: 200-499 mg/dLVery High: >500 mg/dL Cardiovascular stress test r eportOrdered By: Stacey Daly on 05-22-2024 Study report [facility] [address] [place] [address] MR#: [id number] Acct: [id number] Name: JAYDEN CRAIG Rep #: [id number] : 1940 83 From: Stacey Daly MD Primary Care: Dr. Eloisa Espinal MD Sta tus: REG CLI Referring Dr: Stacey Daly MD Sex: M C Stress Test Report Date: 05/22/2024 Procedure: Pharmacologic stress nuclear imaging study Indications: Coronary artery disease Consent: Per the patient Procedure: The patient underwent pharmacologic (Regadenoson 0.4mg ) evaluation with a peak heart rate of 102 beats per minute (73%predicted maximal heart rate) and a peak blood pressure of 148/80 mmHg. The baseline ECG demonstrated sinus rhythm. The peak pharmacologic ECG demonstrated no ischemic changes. There were no cardiac dysrhythmias pretest, during pharmacologic infusion, or recovery. There was no complaint of chest discomfort during pharmacologic infusion or recovery. The patient was injected with 11.2 millicuries of technetium 99m Cardiolite and subsequently rest SPECT Cardiolite nuclear imaging was obtained in the horizontal long, vertical long, and short axis views. The patient underwent pharmacologic (Regadenoson) evaluation. The patient was injected with 34.6 millicuries of technetium 99m Cardiolite and subsequently stress SPECT Cardiolite nuclear imaging was obtained in the horizontal long, vertical long, and short axis views. A gated Cardiolite study at peak stress was obtained. The examination was stopped secondary to completion of protocol. Rest and stress SPECT Cardiolite nuclear imaging status post realignment, normalization, and attenuation correction demonstrate mildly reversible perfusion defect of the distal anterior wall and apex suggestive of ischemia. There is end systolic thickening and brightening. The gated Cardiolite study demonstrates myocardial thickening and inward wall motion. The reported LVEF is82%. Impression: 1. Pharmacologic (Regadenoson) evaluation 2. Peak pharmacologic ECG with no diagnostic ischemic changes. 3. There were no cardiac dysrhythmias pretest, during pharmacologic infusion, or recovery. 5. Mild reversible perfusion defect of the distal anterior wall and apex suggestive of ischemia. 6. The gated Cardiolite study reports an LVEF of 82%. This note was generated with 360Learningation software. It may contain incorrectwords, spelling, and punctuation that were not noted in checking the note beforesigning. 05/22/24856 Date _ Stacey Daly MD CC: Dr. Stacey Daly MD; Dr. Eloisa Espinal MD ~ Date Dictated: 05/22/24854 Date Transcribed: 05/22/24854 Data Collection Associate: DARRYL Vasquez [facility] Work Phone: Echo Complete W/ Contraston 05-22-2024 Echo Complete W/ Contrast [facility] [place] [address] Echo Complete W/ Contrast 05/22/24 0826 MR#: [id number] Acct: [id number] Name: JAYDEN CRAIG Rep #: [id number] : 1940 83 From: Stacey Daly MD Attending Dr: Dr. Stacey Daly MD Status: REG CLI Ordering Dr: Stacey Daly MD Date: 05/22/24 Location: [facility] Sex: M C Admitted: Reason For Study Reason For Study: CAD Procedure This was a 2D Doppler, Color Flow transthoracic echocardiogram. The study was technically difficult. Exam performed in department. Left Ventricle Normal size and thickness. The LV systolic function is normal. EF is 65 %. Diastolic function is indeterminate. Right Ventricle Normal right ventricle. Atria The left atrium is moderately enlarged. Normal right atrium. Mitral Valve Moderate mitral annular calcification. Mild (1+) mitral valve insufficiency. Tricuspid Valve Trivial tricuspid valve insufficiency. Right ventricular systolic pressure estimated to be 46 mmHg. Aortic Valve Trisinus/trileaflet aortic valve. Aortic sclerosis, no stenosis. Trivial aortic valve insufficiency. Pulmonic Valve The pulmonic valve is not well visualized. Great Vessels Normal sized aortic root. Pericardium/Pleural No pericardial effusion. Medication Diluted definity 1.0ml given slow IV push to enhance endocardial definition. MMode/2D Measurements Calculations LVIDd: 4.6 cm IVSd: 0.97 cm LVOT diam: 2.2 cm LVIDs: 2.9 cm LVPWd: 0.96 cm RVDd: 3.5 cm FS: 36.8 % LVOT area: 3.9 cm2 Ao root diam: 3.8 cm LAV(MOD-bp): 60.6 ml LVAd ap4: 32.5 cm2 LAV(MOD-bp) Indexed: 31.8 ml/m2 LVLd ap4: 7.9 cm LAV(MOD-sp2): 63.0 ml EDV(MOD-sp4): 112.4 ml LAV(MOD-sp4): 59.2 ml EDV(sp4-el): 113.2 ml LVAs ap4: 16.1 cm2 LVLs ap4: 6.4 cm ESV(MOD-sp4): 34.4 ml ESV(sp4-el): 34.3 ml EF(MOD-sp4): 69.4 % EF(sp4-el): 69.7 % LVAd ap2: 21.8 cm2 SV(MOD-sp4): 78.0 ml SV(MOD-sp2): 38.7 ml LVLd ap2: 7.0 cm SI(MOD-sp4): 41.0 ml/m2 SI(MOD-sp2): 20.3 ml/m2 EDV(MOD-sp2): 57.0 ml EDV(sp2-el): 58.0 ml LVAs ap2: 11.2 cm2 LVLs ap2: 5.8 cm ESV(MOD-sp2): 18.2 ml ESV(sp2-el): 18.4 ml EF(MOD-sp2): 68.0 % SV(sp4-el): 78.9 ml LA dimension(2D): 4.7 cm LA A4 area: 20.8 cm2 RA A4 area: 13.7 cm2 TAPSE: 1.6 cm Time Measurements MV dec time: 0.15 sec Doppler Measurements Calculations MV E max kem: 111.2 cm/sec Lat Peak E' Kem: 8.5 cm/sec Med Peak E' Kem: 6.6 cm/sec MV A max kem: 133.1 cm/sec E/E' lat: 13.1 E/E' med: 16.8 MV E/A: 0.84 Ao V2 max: 175.6 cm/sec LV V1 max: 117.6 cm/sec MV dec slope: 735.2 cm/sec2 Ao max P.3 mmHg LV V1 max P.5 mmHg Ao V2 mean: 114.0 cm/sec LV V1 mean P.0 mmHg Ao mean P.1 mmHg LV V1 mean: 80.3 cm/sec Ao V2 VTI: 34.8 cm LV V1 VTI: 25.5 cm AV (velocity ratio): 0.73 EPI(I,D): 2.8 cm2 EPI(V,D): 2.6 cm2 SV(LVOT): 98.1 ml PA V2 max: 124.1 cm/sec TR max kem: 318.8 cm/sec TR max P.7 mmHg ECHO/Echo Complete W/ Contrast Interpretation Summary The LV systolic function is normal. EF is 65 %. Diastolic function is indeterminate. The left atrium is moderately enlarged. Moderate mitral annular calcification. Mild (1+) mitral valve insufficiency. Right ventricular systolic pressure estimated to be 46 mmHg. Aortic sclerosis, no stenosis. Ordering Physician: Stacey Daly Referring Physician: MD Eloisa Espinal Performed By: Tiffanie Morse RDCS 05/27/24 1235 Date Stacey Daly MD CC: Dr. Stacey Daly MD; Dr. Eloisa Espinal MD Date Dictated: 05/22/24825 Date Transcribed: 05/27/24 123 Data Collection Associate: Signed Normal [facility] Stress Reporton 05-22-2024 Stress Report [facility] [address] [place] [place] [address] MR#: [id number] Acct: [id number] Name: JAYDEN CRAIG Rep #: [id number] : 1940 83 From: Stacey Daly MD Primary Care: Dr. Eloisa Espinal MD Status: REG CLI Referring Dr: Stacey Daly MD Sex: Leonie Kearney Stress Test Report Date: 05/22/2024 Procedure: Pharmacologic stress nuclear imaging study Indications: Coronary artery disease Consent: Per the patient Procedure: The patient underwent pharmacologic (Regadenoson 0.4mg ) evaluation with a peak heart rate of 102 beats per minute (73%predicted maximal heart rate) and a peak blood pressure of 148/80 mmHg. The baseline ECG demonstrated sinus rhythm. The peak pharmacologic ECG demonstrated no ischemic changes. There were no cardiac dysrhythmias pretest, during pharmacologic infusion, or recovery. There was no complaint of chest discomfort during pharmacologic infusion or recovery. The patient was injected with 11.2 millicuries of technetium 99m Cardiolite and subsequently rest SPECT Cardiolite nuclear imaging was obtained in the horizontal long, vertical long, and short axis views. The patient underwent pharmacologic (Regadenoson) evaluation. The patient was injected with 34.6 millicuries of technetium 99m Cardiolite and subsequently stress SPECT Cardiolite nuclear imaging was obtained in the horizontal long, vertical long, and short axis views. A gated Cardiolite study at peak stress was obtained. The examination was stopped secondary to completion of protocol. Rest and stress SPECT Cardiolite nuclear imaging status post realignment, normalization, and attenuation correction demonstrate mildly reversible perfusion defect of the distal anterior wall and apex suggestive of ischemia. There is end systolic thickening and brightening. The gated Cardiolite study demonstrates myocardial thickening and inward wall motion. The reported LVEF is 82%. Impression: 1. Pharmacologic (Regadenoson) evaluation 2. Peak pharmacologic ECG with no diagnostic ischemic changes. 3. There were no cardiac dysrhythmias pretest, during pharmacologic infusion, or recovery. 5. Mild reversible perfusion defect of the distal anterior wall and apex suggestive of ischemia. 6. The gated Cardiolite study reports an LVEF of 82%. This note was generated with 360Learningation software. It may contain incorrect words, spelling, and punctuation that were not noted in checking the note before signing. 05/22/24 0857 Date Stacey Daly MD CC: Dr. Stacey Daly MD; Dr. Eloisa Espinal MD Date Dictated: 05/22/24854 Date Transcribed: 05/22/24854 Data Collection Associate: DARRYL Signed Normal [facility] CNOVon 05-16-2024 CNOV Office Visit (FAMPWS ) JAYDEN CRAIG ([id number]) 1940 M NFR Date Time Provider Department 05/16/24 11:00 AM ELOISA ESPINAL FAMPWS During your visit today, we recorded the following information about you: Pulse Respiration Blood pressure Weight 78/minute 20/minute 102/64 79.4 kg Eloisa Espinal MD 05/16/2024 11:52 AM Signed Chief Complaint Patient presents with: F/U 6 Month HPI Jayden Sherrie Craig is a 83 year old male who presents here today for 6 month follow up. Here today with for routine follow up and lab review. GI/Uro - Ongoing issues chronic abdominal pain. Was scheduled to have repair incisional hernia surgery on 05/06/24, but this was cancelled due to needing further Cardiac work up of Echo and Stress Test. This is scheduled on 05/22/24. notes that pt woke up yesterday morning with extreme nausea for 1.5 hours, causing patient to gag. Wondering if there is something he can take to help with nausea. Has previously seen Gastro at [facility], but not anything recently. Reports they will not travel back to [facility]. 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 Hx of Gi bleed, with anemia. Labs monitored. Hx of low phosphorus and sodium. Lipid: Taking Zocor 80 mg daily. Tolerating well. Tries to watch diet, able to eat but it's less. Denies much exercise due to SOB. Thyroid: Taking Synthroid 200 mcg daily. No missed dosages. HTN AND A-fib: Denies checking BP at home. Denies any chest pain or dizziness. No unusual sob, but notes some increased sob. Has had several episodes of syncope that caused him to go to the ED. Taking Lopressor 25 mg BID. Cardiology recent d/c pt's Lisinopril 10 mg. Asthma/COPD: Pt has chronic sob, but feels it's getting worse. States he can hear a rattle in his chest. Currently taking Breyna 2 puffs po bid and Albuterol Inhaler 2 puff po prn. Is currently finishing his Advair Rx. Chronic back pain, takes Tylenol. Was unable to complete MRI for left shoulder, that he injured due to recent fall. Currently doing PT at [facility]. HM - Shinges/RSV vaccine through Pharmacy due to Medicare. Declines Covid vaccine today, will obtain in the fall. Has Adv Dir/Living Will scanned into chart. Past medical history, appointments, medications, allergies reviewed. 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 Regina Oswald APPENDECTOMY COLONOSCOPY FLX DX W/COLLJ SPEC WHEN PFRMD 06/28/2004 Colonoscopy COLONOSCOPY FLX DX W/COLLJ SPEC WHEN PFRMD 08/06/2015 Colonoscopy CORONARY ARTERY BYPASS GRAFT HX 07/24/2018 VASQUES in situ mammary end to side mid LAD, Vein graft ascending aorta end to side RCA, Vein graft ascending aorta end to side obtuse marginal 1. EGD N/A 06/29/2020 Dr. Keating EGD 05/31/2021 EGD TRANSORAL BIOPSY SINGLE/MULTIPLE 08/30/2009 EGD TRANSORAL BIOPSY SINGLE/MULTIPLE 08/23/2011 repeat in 2 years ESOPHAGOGASTRODUODENO SCOPY TRANSORAL DIAGNOSTIC 10/06/1998 EGD ESOPHAGOGASTRODUODENO SCOPY TRANSORAL DIAGNOSTIC 01/29/2000 EGD ESOPHAGOGASTRODUODENO SCOPY TRANSORAL DIAGNOSTIC 08/04/2003 EGD ESOPHAGOGASTRODUODENO SCOPY TRANSORAL DIAGNOSTIC 08/29/2007 EGD ESOPHAGOGASTRODUODENO SCOPY TRANSORAL DIAGNOSTIC 08/28/2013 EGD ESOPHAGOGASTRODUODENO SCOPY TRANSORAL DIAGNOSTIC 10/08/2017 EGD HEART SURGERY HX HIATAL HERNIA REPAIR HX 08/24/2022 Laparoscopic paraesophageal hernia repair with gastropexy, Primary repair of ventral hernia, EGD LAPAROSCOPIC CHOLECYSTECTOMY 12/15/2018 PAST SURGICAL HISTORY OF N/A 04/25/2017 Back [facility] done [facility] and cleaned up arthritis REPAIR UMBILICAL HERNIA 08/24/2022 Family History FAMILY HISTORY Problem Relation Age of Onset Emphysema Father Emphysema Mother other (no cardiac hx per pt) Other Patient Allergies ALLERGIES Allergen Reactions Lipitor [Atorvastat* Intolerance myalgias Omnicef [Cefdinir] Diarrhea Zithromax [Azithrom* Current Medications Current Outpatient Medicatio (more content not included)... Normal [facility] CBC W Auto Differential pane l (Bld)on 05-15-2024 Acanthocytes LM Ql (Bld) Few Normal [facility] Comment on above: Order Comment: Speci men Type: BLOOD SPECIMENOrdering Facility: [facility] Address: [address] [place] [address] Performed By: #### 5 7021-8 ####[facility] LABCLIA [id number] [place] [address] [place] Anisocytosis Ql (Bld) Present Normal [facility] Comment on above: Order Comment: Speci men Type: BLOOD SPECIMENOrdering Facility: [facility] Address: [address] [place] [address] Performed By: #### 5 7021-8 ####[facility] LABCLIA [id number] [place] [address] [place] Basophils (Bld) [#/Vol] 0.04 10*3/uL Normal <0.11 [facility] Comment on above: Order Comment: Speci men Type: BLOOD SPECIMENOrdering Facility: [facility] Address: [address] [place] [address] Performed By: #### 5 7021-8 ####[facility] LABCLIA [id number] [place] [id number] [place] Basophils/100 WBC (Bld) 0.9 % Normal [facility] Comment on above: Order Comment: Speci men Type: BLOOD SPECIMENOrdering Facility: [facility] Address: [address] [place] [address] Performed By: #### 5 7021-8 ####[facility] LABCLIA [id number] [address], [place] [address] [place] Differential cell count method Nom (Bld) Manual Normal [facility] Comment on above: Order Comment: Speci men Type: BLOOD SPECIMENOrdering Facility: [facility] Address: [address] [place] [address] Performed By: #### 5 7021-8 ####[facility] LABCLIA [id number] [place] [address] [place] Eosinophils (Bld) [#/Vol] 0.21 10*3/uL Normal <0.46 [facility] Comment on above: Order Comment: Speci men Type: BLOOD SPECIMENOrdering Facility: [facility] Address: [address] [place] [address] Performed By: #### 5 7021-8 ####[facility] LABCLIA [id number] [place] [id number] [place] Eosinophils/100 WBC (Bld) 4.3 % Normal [facility] Comment on above: Order Comment: Speci men Type: BLOOD SPECIMENOrdering Facility: [facility] Address: [address] [place] [address] Performed By: #### 5 7021-8 ####[facility] LABCLIA [id number] [place] [address] [place] Erythrocyte distribution width (RBC) [Ratio] 15.2 % High 11.5-15.0 [facility] Comment on above: Order Comment: Speci men Type: BLOOD SPECIMENOrdering Facility: [facility] Address: [address] [place] [address] Performed By: #### 5 7021-8 ####[facility] LABIA [id number] [place] [address] [place] Hematocrit (Bld) [Volume fraction] 31.7 % Low 39.0-51.0 [facility] Comment on above: Order Comment: Speci men Type: BLOOD SPECIMENOrdering Facility: [facility] Address: [address] [place] [address] Performed By: #### 5 7021-8 ####[facility] LABIA [id number] [place] [address] [place] Hemoglobin (Bld) [Mass/Vol] 10.1 g/dL Low 13.0-17.0 [facility] Comment on above: Order Comment: Speci men Type: BLOOD SPECIMENOrdering Facility: [facility] Address: [address] [place] [address] Performed By: #### 5 7021-8 ####[facility] LABIA [id number] [place] [address] [place] Lymphocytes (Bld) [#/Vol] 0.39 10*3/uL Low 1.00-4.00 [facility] Comment on above: Order Comment: Speci men Type: BLOOD SPECIMENOrdering Facility: [facility] Address: [address] [place] [address] Performed By: #### 5 7021-8 ####[facility] LABIA [id number] [place] [address] [place] Lymphocytes/100 WBC (Bld) 7.8 % Normal [facility] Comment on above: Order Comment: Speci men Type: BLOOD SPECIMENOrdering Facility: [facility] Address: [address] [place] [address] Performed By: #### 5 7021-8 ####[facility] [id number] [place] [address] [place] MCH (RBC) [Entitic mass] 25.6 pg Low 26.0-34.0 [facility] Comment on above: Order Comment: Speci men Type: BLOOD SPECIMENOrdering Facility: [facility] Address: [address] [place] [address] Performed By: #### 5 7021-8 ####[facility] [id number] [place] [address] [place] MCHC (RBC) [Mass/Vol] 31.9 g/dL Normal 30.5-36.0 [facility] Comment on above: Order Comment: Speci men Type: BLOOD SPECIMENOrdering Facility: [facility] Address: [address] [place] [address] Performed By: #### 5 7021-8 ####[facility] [id number] [place] [address] [place] MCV (RBC) [Entitic vol] 80.3 fL Normal 80.0-100.0 [facility] Comment on above: Order Comment: Speci men Type: BLOOD SPECIMENOrdering Facility: [facility] Address: [address] [place] [address] Performed By: #### 5 7021-8 ####[facility] [id number] [place] [address] [place] Monocytes (Bld) [#/Vol] 0.65 10*3/uL Normal <0.87 [facility] Comment on above: Order Comment: Speci men Type: BLOOD SPECIMENOrdering Facility: [facility] Address: [address] [place], [place] [address] Performed By: #### 5 7021-8 ####[facility] LABCLIA [id number] [place] [address] [place] Monocytes/100 WBC (Bld) 13.0 % Normal [facility] Comment on above: Order Comment: Speci men Type: BLOOD SPECIMENOrdering Facility: [facility] Address: [address] [place] [address] Performed By: #### 5 7021-8 ####[facility] LABCLIA [id number] [place] [address] [place] Neutrophils (Bld) [#/Vol] 3.69 10*3/uL Normal 1.45-7.50 [facility] Comment on above: Order Comment: Speci men Type: BLOOD SPECIMENOrdering Facility: [facility] Address: [address] [place] [address] Performed By: #### 5 7021-8 ####[facility] LABCLIA [id number] [place] [address] [place] Neutrophils/100 WBC (Bld) 74.0 % Normal [facility] Comment on above: Order Comment: Speci men Type: BLOOD SPECIMENOrdering Facility: [facility] Address: [address] [place] [address] Performed By: #### 5 7021-8 ####[facility] LABCLIA [id number] [place] [address] [place] Nucleated RBC (Bld) [#/Vol] 10*3/uL Normal <0.01 [facility] Comment on above: Order Comment: Speci men Type: BLOOD SPECIMENOrdering Facility: [facility] Address: [address] [place] [address] Performed By: #### 5 7021-8 ####[facility] LABCLIA [id number] [place] [id number] [place] Nucleated RBC/100 WBC (Bld) [Ratio] 0.0 /100 WBC Normal [facility] Comment on above: Order Comment: Speci men Type: BLOOD SPECIMENOrdering Facility: [facility] Address: [address] [place] [address] Performed By: #### 5 7021-8 ####[facility] LABCLIA [id number] [facility] [address] [place] [address] [place] Ovalocytes LM Ql (Bld) Few Normal [facility] Comment on above: Order Comment: Speci men Type: BLOOD SPECIMENOrdering Facility: [facility] Address: [address] [place] [address] Performed By: #### 5 7021-8 ####[facility] LABCLIA [id number] [address] [place] [address] [place] Platelet mean volume (Bld) [Entitic vol] 11.8 fL Normal 9.0-12.7 [facility] Comment on above: Order Comment: Speci men Type: BLOOD SPECIMENOrdering Facility: [facility] Address: [address] [place], [place] [address] Performed By: #### 5 7021-8 ####[facility] LABIA [id number] [address] [place] [address] [place] Platelets (Bld) [#/Vol] 155 10*3/uL Normal 150-400 [facility] Comment on above: Order Comment: Speci men Type: BLOOD SPECIMENOrdering Facility: [facility] Address: [address] [place] [address] Performed By: #### 5 7021-8 ####[facility] LABIA [id number] [address] [place] [address] [place] Platelets Estimate (Bld) [#/Vol] Adequate Normal [facility] Comment on above: Order Comment: Speci men Type: BLOOD SPECIMENOrdering Facility: [facility] Address: [address] [place] [address] Performed By: #### 5 7021-8 ####[facility] LABCLIA [id number] [address] [place] [address] [place] Polychromasia LM Ql (Bld) Slight Normal [facility] Comment on above: Order Comment: Speci men Type: BLOOD SPECIMENOrdering Facility: [facility] Address: [address] [place] [address] Performed By: #### 5 7021-8 ####[facility] LABCLIA [id number] [address] [place] [address] [place] RBC (Bld) [#/Vol] 3.95 10*6/uL Low 4.20-6.00 [facility] Comment on above: Order Comment: Speci men Type: BLOOD SPECIMENOrdering Facility: [facility] Address: [address] [place] [address] Performed By: #### 5 7021-8 ####[facility] LABCLIA [id number] [address], [place] [address] [place] RBC FRAGMENTS Few Abnormal None Seen [facility] Comment on above: Order Comment: Speci men Type: BLOOD SPECIMENOrdering Facility: [facility] Address: [address] [place] [address] Performed By: #### 5 7021-8 ####[facility] LABCLIA [id number] [place] [address] [place] RED CELL MORPH Reviewed: see result s of individual morphologies Normal [facility] Comment on above: Order Comment: Speci men Type: BLOOD SPECIMENOrdering Facility: [facility] Address: [address] [place] [address] Performed By: #### 5 7021-8 ####[facility] LABCLIA [id number] [address] [place] [address] [place] WBC (Bld) [#/Vol] 4.98 10*3/uL Normal 3.70-11.00 [facility] Comment on above: Order Comment: Speci men Type: BLOOD SPECIMENOrdering Facility: [facility] Address: [address] [place] [address] Performed By: #### 5 7021-8 ####[facility] LABCLIA [id number] [address] [address] [place] Comprehensive metabolic 2000 panelon 05-15-2024 Albumin [Mass/Vol] 4.0 g/dL Normal 3.9-4.9 [facility] Comment on above: Order Comment: Speci men Type: BLOOD SPECIMENOrdering Facility: [facility] Address: [address] [place] [address] Performed By: #### 3 016-3, 55461-2, 55763-5 ####[facility] LABCLIA [id number] [place] [id number] [place] ALP [Catalytic activity/Vol] 96 U/L Normal 38-113 [facility] Comment on above: Order Comment: Speci men Type: BLOOD SPECIMENOrdering Facility: [facility] Address: [address] [place] [address] Performed By: #### 3 016-3, 89932-9, 52504-2 ####[facility] LABIA [id number] [place] [id number] [place] ALT [Catalytic activity/Vol] 17 U/L Normal 10-54 [facility] Comment on above: Order Comment: Speci men Type: BLOOD SPECIMENOrdering Facility: [facility] Address: [address] [place], [place] [address] Performed By: #### 3 016-3, 46594-0, 66035-8 ####[facility] LABIA [id number] [place] [id number] [place] Anion gap [Moles/Vol] 13 mmol/L Normal 8-15 [facility] Comment on above: Order Comment: Speci men Type: BLOOD SPECIMENOrdering Facility: [facility] Address: [address] [place] [address] Performed By: #### 3 016-3, 56175-6, 06648-5 ####[facility] LABIA [id number] [place] [address] [place] AST [Catalytic activity/Vol] 27 U/L Normal 14-40 [facility] Comment on above: Order Comment: Speci men Type: BLOOD SPECIMENOrdering Facility: [facility] Address: [address] [place] [address] Performed By: #### 3 016-3, 74953-9, 34974-0 ####[facility] LABIA [id number] [place] [address] [place] Bilirubin [Mass/Vol] 0.5 mg/dL Normal 0.2-1.3 [facility] Comment on above: Order Comment: Speci men Type: BLOOD SPECIMENOrdering Facility: [facility] Address: [address] [place] [address] Performed By: #### 3 016-3, 77282-2, 45609-5 ####[facility] LABIA [id number] [place] [address] [place] Calcium [Mass/Vol] 9.1 mg/dL Normal 8.5-10.2 [facility] Comment on above: Order Comment: Speci men Type: BLOOD SPECIMENOrdering Facility: [facility] Address: [address] [place] [address] Performed By: #### 3 016-3, 55579-6, 58703-4 ####[facility] [id number] [place] [id number] [place] Chloride [Moles/Vol] 96 mmol/L Low 98-107 [facility] Comment on above: Order Comment: Speci men Type: BLOOD SPECIMENOrdering Facility: [facility] Address: [address] [place] [address] Performed By: #### 3 016-3, 04642-9, ####[facility] LABIA [id number] [place] [id number] [place] CO2 [Moles/Vol] 21 mmol/L Low 22-30 [facility] Comment on above: Order Comment: Speci men Type: BLOOD SPECIMENOrdering Facility: [facility] Address: [address] [place] [address] Performed By: #### 3 016-3, 69266-8, ####[facility] LABIA [id number] [place] [id number] [place] [facility] Creatinine [Mass/Vol] 0.76 mg/dL Normal 0.73-1.22 [facility] Comment on above: Order Comment: Speci men Type: BLOOD SPECIMENOrdering Facility: [facility] Address: [address] [place] [address] Performed By: #### 3 016-3, 85029-2, ####[facility] LABIA [id number] [address] [place] [facility] Creatinine and Glomerular filtration rate.predicted panel (S/P/Bld) 90 mL/min/1.73m??? Normal >=60 [facility] Comment on above: Order Comment: Speci men Type: BLOOD SPECIMENOrdering Facility: [facility] Address: [address] [place] [address] Result Comment: Kimberlyn mated Glomerular Filtration Rate (eGFR) is calculated using the 2020 CKD-EPI creatinine equation. This equation utilizes serum creatinine, sex, and age as parameters. The creatinine assay has traceable calibration to isotope dilution-mass spectrometry. Refer to KDIGO guidelines for clinical interpretation. In patients with unstable renal function, e.g. those with acute kidney injury, the eGFR may not accurately reflect actual GFR. Performed By: #### 3 016-3, 46531-7, 61240-3 ####[facility] LABIA [id number] [address] [address] [place] Glucose [Mass/Vol] 120 mg/dL High 74-99 [facility] Comment on above: Order Comment: Speci men Type: BLOOD SPECIMENOrdering Facility: [facility] Address: [address] [place] [address] Result Comment: The [place] [employer] (ADA) provides guidance for cutoff values for fasting glucose and random glucose. The ADA defines fasting as no caloric intake for at least 8 hours. Fasting plasma glucose results between 100 to 125 mg/dL indicate increased risk for diabetes (prediabetes). Fasting plasma glucose results greater than or equal to 126 mg/dL meet the criteria for diagnosis of diabetes. In the absence of unequivocal hyperglycemia, results should be confirmed by repeat testing. In a patient with classic symptoms of hyperglycemia or hyperglycemic crisis, random plasma glucose results greater than or equal to 200 mg/dL meet the criteria for diagnosis of diabetes. Reference: Standards of Medical Care in Diabetes 2016, [employer]. Diabetes Care. 2016.39(Suppl 1). Performed By: #### 3 016-3, 76591-1, 63440-1 ####[facility] LABCLIA [id number] [place] [address] [place] Potassium [Moles/Vol] 4.4 mmol/L Normal 3.7-5.1 [facility] Comment on above: Order Comment: Speci men Type: BLOOD SPECIMENOrdering Facility: [facility] Address: [address] [place] [address] Performed By: #### 3 016-3, 45249-5, 36777-0 ####[facility] LABCLIA [id number] [place] [address] [place] Protein [Mass/Vol] 6.8 g/dL Normal 6.3-8.0 [facility] Comment on above: Order Comment: Speci men Type: BLOOD SPECIMENOrdering Facility: [facility] Address: [address] [place] [address] Performed By: #### 3 016-3, 95130-3, 15900-9 ####[facility] LABCLIA [id number] [place] [id number] [place] Sodium [Moles/Vol] 130 mmol/L Low 136-144 [facility] Comment on above: Order Comment: Speci men Type: BLOOD SPECIMENOrdering Facility: [facility] Address: [address] [place] [address] Performed By: #### 3 016-3, 15549-9, 31274-8 ####[facility] LABCLIA [id number] [place] [address] [place] Urea nitrogen [Mass/Vol] 9 mg/dL Normal 9-24 [facility] Comment on above: Order Comment: Speci men Type: BLOOD SPECIMENOrdering Facility: [facility] Address: [address] [place] [address] Performed By: #### 3 016-3, 60074-3, 93809-9 ####[facility] LABCLIA [id number] [place] [address] [place] Lipid 1996 panelon 5 Cholesterol [Mass/Vol] 134 mg/dL Normal <200 [facility] Comment on above: Order Comment: Speci men Type: BLOOD SPECIMENOrdering Facility: [facility] Address: [address] [place] [address] Result Comment: <200 mg/dL, Desirable 200-239 mg/dL, Borderline high >239 mg/dL, High Performed By: #### 3 016-3, 04904-5, 60814-8 ####[facility] LABCLIA [id number] [place] [id number] [place] Cholesterol in HDL [Mass/Vol] 69 mg/dL Normal >39 [facility] Comment on above: Order Comment: Speci men Type: BLOOD SPECIMENOrdering Facility: [facility] Address: [address] [place] [address] Result Comment: 40-5 9 mg/dL, Acceptable >59 mg/dL, High: Negative risk factor for coronary heart disease <40 mg/dL, Low: Positive risk factor for coronary heart disease Performed By: #### 3 016-3, 92403-4, 54627-6 ####[facility] LABCLIA [id number] [place] [address] [place] Cholesterol in LDL [Mass/Vol] 55 mg/dL Normal <100 [facility] Comment on above: Order Comment: Speci men Type: BLOOD SPECIMENOrdering Facility: [facility] Address: [address] [place] [address] Result Comment: <100 mg/dL, Optimal 100-129 mg/dL, Near optimal/above optimal 130-159 mg/dL, Borderline high 160-189 mg/dL, High >189 mg/dL, Very high Secondary prevention optimal LDL Cholesterol levels are recommended to be < 70 mg/dL Performed By: #### 3 016-3, 56068-9, 82868-9 ####[facility] LABCLIA [id number] [address] STATES OF [facility] Cholesterol in LDL/Cholesterol in HDL [Mass ratio] 0.80 {ratio} Normal <2.54 [facility] Comment on above: Order Comment: Speci men Type: BLOOD SPECIMENOrdering Facility: [facility] Address: [address] [place] [address] Result Comment: Refe rence: 1. National Cholesterol Education Program ATP III Guideline At-A-Glance Quick Desk Reference: National Heart, Lung, and Blood [place]. National Institutes of Health. 2001: NIH Publication No. 01-3305. 2. An International Atherosclerosis Society position paper: global recommendations for the management of dyslipidemia: executive summary, Atherosclerosis. 2014: 232(2):410-413. Performed By: #### 3 016-3, 84856-7, 16390-2 ####[facility] LABIA [id number] [address] [place] Cholesterol in VLDL [Mass/Vol] 10 mg/dL Normal <30 [facility] Comment on above: Order Comment: Speci men Type: BLOOD SPECIMENOrdering Facility: [facility] Address: [address] [place] [address] Performed By: #### 3 016-3, 82679-3, 55227-5 ####[facility] LABCLIA [id number] [address] [address] [place] Cholesterol non HDL [Mass/Vol] 65 mg/dL Normal <130 [facility] Comment on above: Order Comment: Speci men Type: BLOOD SPECIMENOrdering Facility: [facility] Address: [address] [place] [address] Result Comment: <130 mg/dL, Optimal 130-159 mg/dL, Near optimal/above optimal 160-189 mg/dL, Borderline high 190-219 mg/dL, High >219 mg/dL, Very high Secondary prevention optimal non HDL Cholesterol levels are recommended to be <100 mg/dL Performed By: #### 3 016-3, 11863-5, 65885-4 ####[facility] LABCLIA [id number] [place] [address] [place] Cholesterol.total/Christina sterol in HDL [Mass ratio] 1.94 {ratio} Normal <5.10 [facility] Comment on above: Order Comment: Speci men Type: BLOOD SPECIMENOrdering Facility: [facility] Address: [address] [place] [address] Performed By: #### 3 016-3, , 52725-6 ####[facility] LABCLIA [id number] [place] [id number] [place] FASTING TIME 12 hrs Normal [facility] Comment on above: Order Comment: Speci men Type: BLOOD SPECIMENOrdering Facility: [facility] Address: [address] [place] [address] Performed By: #### 3 016-3, , ####[facility] LABCLIA [id number] [address] [address] [place] Triglyceride [Mass/Vol] 49 mg/dL Normal <150 [facility] Comment on above: Order Comment: Speci men Type: BLOOD SPECIMENOrdering Facility: [facility] Address: [address] [place] [address] Result Comment: <150 mg/dL, Normal 150-199 mg/dL, Borderline high 200-499 mg/dL, High >499 mg/dL, Very high Performed By: #### 3 016-3, 41116-3, 10465-0 ####[facility] LABCLIA [id number] [place] [address] [place] TSH SerPl-aCncon 05-15-2024 TSH Qn 2.530 m[IU]/L Normal 0.270-4.200 [facility] Comment on above: Order Comment: Speci men Type: BLOOD SPECIMENOrdering Facility: [facility] Address: [address] [place] [address] Performed By: #### 3 016-3, 88781-2, 10063-8 ####[facility] LABCLIA [id number] [address] OF [place] CNOVon 05-05-2024 CNOV Office Visit (FAMPWS ) JAYDEN CRAIG ([id number]) 1940 M NFR Date Time Provider Department 05/05/24 2:00 PM ELOISA ESPINAL FAMPWS During your visit today, we recorded the following information about you: Pulse Respiration Blood pressure Weight 82/minute 20/minute 112/68 80.6 kg Eloisa Espinal MD 05/05/2024 3:43 PM Signed Chief Complaint Patient presents with: Hospital Follow Up HPI Jayden Sherrie Craig is a 83 year old male who presents here today for an ED follow up. Pt here today for ED follow up. Here today with his . Pt presented to [facility] ED on 04/26/24 after a fall. and spouse state that pt fell down the stairs outside of his home and slipped. He fell down 3 stairs and landed on the concrete sidewalk. Now has handrails in place. Sutures were placed in his left hand due to laceration. Had multiple scrapes, but seem to be healing. Pt reports that what bothers him most is his left shoulder. Is scheduled to have an MRI through [facility] on . Pt continues to have significant pain. Pt was d/c home with Percocet, but only using very rarely. Believes they are seeing Dr. Ashton (Yann). notes that he's been doing a lot forgetting lately. This has been ongoing for the past 6 months. He will forget what she told him the previous day. GI - Notes waking up over the past 3 weeks couple times a week feeling nauseas. Pt states this lasts for about 5-7 minutes, then passes. [facility] visit: HPI History of Present Illness Chief Complaint: Fall Detail of Chief Complaint: Mechanical fall with injury to head, right and left hand, left knee and lef Informant: patient, spouse/S.O. and family Limited: dementia Onset: Today and Hours Mechanism/Context: Blunt Injury and Fall Location of pain/injuries: - (Left forehead, left shoulder, left and right hand and left knee) Quality of Pain: Dull and Aching Location: Left shoulder and head Current Severity: Mild Maximum Severity: Moderate Worsened by: Shoulder is worse with movement Relieved by: Nothing Associated Symptoms Associated Symptoms: Positive for Amnesia and - (Patient was dazed. He is on aspirin.); Negative for Parasthesias, Weakness, Loss of function, Inability to ambulate or Loss of consciousness Narrative: Patient is a 83-year-old male who had a fall. He sustained injury to his forehead on the left, left and right hand (radial side of the PIP joint right index finger, hyperthenar eminence of the left palm and tip of the left index finger and ring finger) swelling and contusion of the left shoulder. Patient denies neck pain. Denies paresthesia, anesthesia or motor weakness. Patient denies cardiac or respiratory symptoms. Patient denies GI symptoms and specifically black or maroon-colored stool. Patient is not on any other antithrombotic except aspirin and is not on an anticoagulant. Other Procedures Procedure(s): The laceration palm of left hand was anesthetized with 1% lidocaine for local infiltration. Wound was irrigated with 125 cc of normal saline. The wound was then closed using 5-0 Ethilon. A total of 5 stitches placed. Patient tolerated procedure well. MDM Narrative Medical decision making narrative: Per the Romanian CT head rule imaging of the head is indicated. CT of the head was obtained. Because of his limited range of motion of the shoulder shoulder x-ray was obtained. Differential diagnosis includes epidural hematoma, subduralhematoma, traumatic subarachnoid hemorrhage and parenchymal contusion. Differential for the shoulder would include fracture, fracture dislocation, rotator cuff injury with fracture or isolated. Radiography Chest X-Ray - ED: Read by ED Physician (Three-view x-ray of the left shoulder independently interpreted by me at 2340 reveals no fracture, subluxation or dislocation. There are some minimal arthritic changes. There is no widening ofthe AC joint.) Diagnostic Testing: Clinical Impression(s) from Imaging Studies Brain CT 04/25/24 22:53 IMPRESSION: Chronic involutional changes of the brain. No acute intracranial hemorrhage. Reading Location: [facility] Shoulder X-Ray 04/25/24 23:59 IMPRESSION: No fracture or dislocation. Treatment and Re-Evaluation Narrative: Since patient is not able to abduct past 40 degrees suspect he has a rotator cuff tear. He was referred to Dr. Izaiah Armendariz who is on-call for orthopedics no doc. He is placed in a sling Clinical Impression: Concussion with brief LOC, Forehead contusion, Forehead abrasion, Abrasion, left knee, initial encounter, Abrasion of right index finger, initial encounter,Abrasion of left index finger, Laceration of left hand Past medical history, appointments, medications (more content not included)... Normal [facility] Susan 04-29-2024 [facility] Telephone (Kalibrr) JAYDEN CRAIG ([id number]) 1940 M NFR Date Time Provider Department 04/29/24 DK BYNUM During your visit today, we recorded the following information about you: Cárdenas ReginaVAMSI 04/29/2024 10:00 AM Signed Aury calling and states is scheduled for hernia surgery next Saturday 05/06. Her recently saw a new worship director at [facility] and ordered an Echo and stress test. had a triple bypass 2-3 years ago. She is waiting to hear back to get scheduled. She thought it was going to be done sometime this week.They have not scheduled a PAT appointment due to waiting to seen when he get scheduled for the testing. is asking if they should cancel his surgery until the cardiac testing has been completed? Patient also had a fall down their steps at home and has sutures in his forehead and injured his shoulder. Thinks he may have torn his rotator cuff. He is scheduled with his PCP to have removed on Sunday. Steff Mckeon, BRAXTON 04/29/2024 11:44 AM Signed Cardiology Clearance not done yet. Surgery scheduled for 05/06/[address] Bynum. Please see message below. Steff Mckeon, BRAXTON 04/29/2024 2:42 PM Signed Annette Sumner APRN.CNP You9 minutes ago (2:31 PM) KB Patient saw [facility] on 04/02 who was aware of pending cardiac work up and advised patient needs to complete the work up prior to being optimized for the procedure. He will need to postpone surgery until cardiac work up is complete. Annette Sumner APRN.CNP Message routed to industrial electrical technician. Steff Mckeon, BRAXTON 05/01/2024 8:13 AM Signed Varun Black; Gen Surg Hood Yonathan Pool21 hours ago (10:21 AM) COLLEEN called and cancelled, patient also fell and has some other things going on. will call and reschedule when he is cleared and had all testing complete. Above message noted. Encounter closed. Allergies As of Date: 04/29/2024 Noted Allergy Reaction LIPITOR (ATORVASTATIN CALCIUM) 02/01/2006 5 - Intolerance Comments: myalgias OMNICEF (CEFDINIR) 2013 6 - Diarrhea ZITHROMAX (AZITHROMYCIN) 02/23/2005 Date Reviewed: 04/25/2024 Reviewed by: Britni Wilson APRN.TRANSFER AND PUMPHOUSE OPERATOR CHIEF - Fully Assessed Prescriptions as of 05/01/2024 - budesonide-formoterol (BREYNA) 80-4.5 mcg/actuation inhaler Inhale 2 Puffs as instructed two times a day. - fluticasone (FLONASE) 50 mcg/actuation nasal spray Use 2 Sprays in each nostril once daily. Rinse mouth after use. - albuterol HFA (PROVENTIL HFA, VENTOLIN HFA) 90 mcg/actuation inhaler Inhale 2 Puffs as instructed every 4 hours as needed for wheezing/shortness of breath. - tamsulosin (FLOMAX) 0.4 mg TAKE 1 CAPSULE BY MOUTH EVERYDAY AT BEDTIME - levothyroxine (LEVOXYL) 175 mcg tablet Take 1 tablet by mouth once daily. Take on empty stomach. For thyroid. - metoprolol tartrate, short acting, (LOPRESSOR) 25 mg tablet Take 1 tablet by mouth two times a day. - lisinopril (ZESTRIL) 10 mg tablet take 1 tablet by mouth every day - simvastatin (ZOCOR) 80 mg tablet take 1 tablet by mouth everyday at bedtime - pantoprazole DR (PROTONIX) 40 mg tablet Take 1 tablet by mouth two times a day. Take on empty stomach, 1/2 hr before meal. - aspirin, enteric coated (ASPIRIN, ENTERIC COATED) 325 mg EC tablet Take 1 tablet by mouth once daily. - magnesium oxide (MAG-OX) 400 mg (241.3 mg magnesium) tablet Take 1 tablet by mouth once daily. - acetaminophen (TYLENOL) 325 mg tablet Take 2 tablets by mouth every 4 hours as needed. - THERAPEUTIC MULTIVITAMIN TAB Take 1 tablet by mouth once daily. 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 [K22.70] 05/30/2007 Esophagitis, unspecified [K20.90] 08/29/2007 10/20/2010 Asthma [J45.909] 07/16/2014 Escobedo's esophagus determined by biopsy [K22.7*08/05/2015 Chronic left-sided low back pain with left-side*12/09/2015 08/18/2021 Overweight (BMI 25.0-29.9) [E66.3] 05/24/2016 Lumbar foraminal stenosis [M48.061] 09/13/2016 Intervertebral disc disorder with radiculopathy* 017 DDD (degenerative disc disease), lumbar [M51.36*09/13/2016 Spondylosis of lumbar region without myelopathy*09/13/2016 Atherosclerotic heart disease of tonawanda coronar* Pre-op testing [Z01.818] 07/23/2018 09/19/2018 Discharge planning issues [Z75.8] 07/23/2018 Difficult airway for intubation [T88.4XXA] 0 (more content not included)... Normal [facility] Susan 04-28-2024 [facility] Telephone (ALAN) JAYDEN CRAIG ([id number]) 1940 M NFR Date Time Provider Department 04/28/24 BRITNI WILSON During your visit today, we recorded the following information about you: Rama Olivarez LPN 04/28/2024 1:46 PM Signed Called and spoke with [facility] scheduling. They have the orders for the stress test and Echo from Cardiology but they have not yet called the patient to schedule the testing. RETA Lyn Jessica, LPN 05/02/2024 10:57 AM Signed Patient is scheduled to have stress and echo at [facility] 05/22/24. .RETA Lyn Jessica, LPN 05/23/2024 9:01 AM Signed Stress completed yesterday at [facility], has not been read yet. Will scan in when read. RETA Lyn Jessica, LPN 05/23/2024 9:05 AM Signed Actually looks like stress test has already been sent from [facility]. RETA Lyn Kim E, LPN 05/29/2024 8:54 AM Signed Received fax of ECHO from [facility] done on 05/22/24. Scanned into [employer], please review. Yamel Oro LPN Allergies As of Date: 04/28/2024 Noted Allergy Reaction LIPITOR (ATORVASTATIN CALCIUM) 02/01/2006 5 - Intolerance Comments: myalgias OMNICEF (CEFDINIR) 2013 6 - Diarrhea ZITHROMAX (AZITHROMYCIN) 02/23/2005 Date Reviewed: 04/25/2024 Reviewed by: Britni Wilson APRN.TRANSFER AND PUMPHOUSE OPERATOR CHIEF - Fully Assessed Prescriptions as of 05/30/2024 - pantoprazole DR (PROTONIX) 40 mg tablet Take 1 tablet by mouth two times a day. Take on empty stomach, 1/2 hr before meal. - simvastatin (ZOCOR) 80 mg tablet Take 1 tablet by mouth daily at bedtime. - ondansetron (ZOFRAN) 4 mg tablet Take 1 tablet by mouth every 8 hours as needed for nausea/vomiting. - budesonide-formoterol (BREYNA) 80-4.5 mcg/actuation inhaler Inhale 2 Puffs as instructed two times a day. - fluticasone (FLONASE) 50 mcg/actuation nasal spray Use 2 Sprays in each nostril once daily. Rinse mouth after use. - albuterol HFA (PROVENTIL HFA, VENTOLIN HFA) 90 mcg/actuation inhaler Inhale 2 Puffs as instructed every 4 hours as needed for wheezing/shortness of breath. - tamsulosin (FLOMAX) 0.4 mg TAKE 1 CAPSULE BY MOUTH EVERYDAY AT BEDTIME - levothyroxine (LEVOXYL) 175 mcg tablet Take 1 tablet by mouth once daily. Take on empty stomach. For thyroid. - metoprolol tartrate, short acting, (LOPRESSOR) 25 mg tablet Take 1 tablet by mouth two times a day. - aspirin, enteric coated (ASPIRIN, ENTERIC COATED) 325 mg EC tablet Take 1 tablet by mouth once daily. - magnesium oxide (MAG-OX) 400 mg (241.3 mg magnesium) tablet Take 1 tablet by mouth once daily. - acetaminophen (TYLENOL) 325 mg tablet Take 2 tablets by mouth every 4 hours as needed. - THERAPEUTIC MULTIVITAMIN TAB Take 1 tablet by mouth once daily. 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] 05/30/2007 Esophagitis, unspecified [K20.90] 08/29/2007 10/20/2010 Asthma [J45.909] 07/16/2014 Escobedo's esophagus determined by biopsy [K22.7*08/05/2015 Chronic left-sided low back pain with left-side*12/09/2015 08/18/2021 Overweight (BMI 25.0-29.9) [E66.3] 05/24/2016 Lumbar foraminal stenosis [M48.061] 09/13/2016 Intervertebral disc disorder with radiculopathy* 017 DDD (degenerative disc disease), lumbar [M51.36*09/13/2016 Spondylosis of lumbar region without myelopathy*09/13/2016 Atherosclerotic heart disease of tonawanda coronar* Pre-op testing [Z01.818] 07/23/2018 09/19/2018 Discharge planning issues [Z75.8] 07/23/2018 Difficult airway for intubation [T88.4XXA] 07/24/2018 07/29/2018 Pain, postoperative, acute [G89.18] 07/24/2018 Atelectasis [J98.11] 07/24/2018 07/26/2018 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/2018 Postoperative hypotension [I95.81] 07/24/2018 07/25/2018 Coagulopathy (HCC) [D68.9] 07/24/2018 07/25/2018 Hypovolemia [E86.1] 07/24/2018 07/25/2018 Esophageal stricture [K22.2] 07/24/2018 Transition of care performed with sharing of cl*07/26/2018 09/19/2018 Gastroesophageal reflux disease with esophagiti*07/26/2018 Obesity, Class I, BMI 30-34.9 [E66.811] 07/26/2018 09/19/2018 Acute cholecystitis [K81.0] 12/15/2018 12/24/2018 Paroxysmal atrial fibrillation (HCC) [I48.0] 12/20/2018 Ileus (HCC) [K56.7] 12/20/2018 12/24/2018 Acute blood loss anemia [D62] 12/20/2018 Essential hypertension [I10] 01/15/2019 Chronic anticoagu (more content not included)... Normal [facility] Emergency Department Summary on 04-26-2024 Emergency Department Summary [facility] Medical Records Department [address] [place] [address] Emergency Department Summary 04/26/24 MR#: [id number] Acct: [id number] Name: JAYDEN CRAIG Rep #: [id number] : 1940 83 From: Dave Velasco MD PCP: Dr. Eloisa Espinal MD Status:REG ER Location: ED HPI History of Present Illness Chief Complaint: Fall Detail of Chief Complaint: Mechanical fall with injury to head, right and left hand, left knee and lef Informant: patient, spouse/S.O. and family Limited: dementia Onset/Context/Timing Onset: Today and Hours Mechanism/Context: Blunt Injury and Fall Location of pain/injuries: - (Left forehead, left shoulder, left and right hand and left knee) Quality of Pain: Dull and Aching Location: Left shoulder and head Current Severity: Mild Maximum Severity: Moderate Worsened by: Shoulder is worse with movement Relieved by: Nothing Associated Symptoms Associated Symptoms: Positive for Amnesia and - (Patient was dazed. He is on aspirin.); Negative for Parasthesias, Weakness, Loss of function, Inability to ambulate or Loss of consciousness Narrative Narrative: Patient is a 83-year-old male who had a fall. He sustained injury to his forehead on the left, left and right hand (radial side of the PIP joint right index finger, hyperthenar eminence of the left palm and tip of the left index finger and ring finger) swelling and contusion of the left shoulder. Patient denies neck pain. Denies paresthesia, anesthesia or motor weakness. Patient denies cardiac or respiratory symptoms. Patient denies GI symptoms and specifically black or maroon-colored stool. Patient is not on any other antithrombotic except aspirin and is not on an anticoagulant. He has a history of COPD, dyslipidemia, hypertension, paroxysmal atrial fibrillation after coronary bypass surgery, acquired hypothyroidism and cholecystitis status postcholecystectomy. Prior similar symptoms: No Recent Illness/Hospitalizati on: No [facility] Medical History Paroxysmal atrial fibrillation Mild intermittent asthma without complication Shortness of breath Peptic ulcer, site unspecified, unspecified as acute or chronic, without hemorrhage or perforation Hyperlipidemia Chronic fatigue, unspecified Essential hypertension Constipation CAD (coronary artery disease) 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 Acquired hypothyroidism Abdominal wall hernia Atherosclerosis of coronary artery of ton[place] heart without angina pectoris Hiatal hernia Hypothyroidism Escobedo's esophagus GERD (gastroesophageal reflux disease) DDD (degenerative disc disease), lumbar Home Medications ???Medication ???Instructions ???Recorded ???Last Taken ???Type acetaminophen 325 mg tablet 650 mg PO Q4H PRN Pain Or Fever Unknown History aspirin 81 mg tablet,delayed 81 mg PO DAILY 12/09/18 Unknown Hi story release (Adult Aspirin Regimen) magnesium oxide 400 mg PO DAILY 12/09/18 Unknown H istory multivitamin 1 tab PO QAM 12/09/18 Unknown Hist ory pantoprazole 40 mg tablet,delayed 40 mg PO BID 12/09/18 Unknown His tory release simvastatin 80 mg tablet 80 mg PO QHS cholesterol 12/09/18 Unknown History fluticasone propionate 115 2 inh inhalation BID sob 09/17/21 Unknown History mcg-salmeterol 21 mcg/actuation HFA inhaler (Advair HFA) fluticasone propionate 50 2 ea intranasal BID stuffiness 08/03 Unknown History mcg/actuation nasal spray,suspension ibuprofen 200 mg tablet 200 mg PO Q6H PRN pain #30 tabs Unknown Rx levothyroxine 175 mcg tablet 175 mcg PO DAILY disorder of 06/29 Unknown History thyroid gland metoprolol tartrate 25 mg tablet 25 mg PO BID 06/30/23 Unknown Hist ory tamsulosin 0.4 mg capsule 0.4 mg PO QHS 06/30/23 Unknown His tory albuterol sulfate 90 mcg/actuation 2 puff inhalation Q4-6H PRN 03/0 06/06 Unknown History aerosol inhaler shortness of breath or wheezing Allergy/AdvReac Type Severity Reaction Status Date / Time cefdinir (From Omnicef) Allergy Intermediate Diarrhea Verified 04/25/24 21:39 atorvastatin AdvReac Intermediate myalgias Verified 04/25/24 21:39 azithromycin (From Zithromax) AdvReac Nausea/Vom/ Verified 04/25/24 21:39 Diarrhea Family History Mother Emphysema of lung Father Emphysema of lung Surgical History History of ventral hernia repair Hx laparoscopic cholecystectomy History of repair of hiatal hernia History of umbilical hernia repair 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) History of back surgery ( 04/25/17) Social History Smoking Status: Fo (more content not included)... Normal [facility] Brain/Head without Contrasto n 04-25-2024 Brain/Head without Contrast [facility] Services [address] [place] [address] Brain/Head without Contrast MR#: [id number] Acct: [id number] Name: JAYDEN CRAIG Rep #: [id number] : 1940 M 83 From: Dk Madera MD PCP: Dr. Eloisa Espinal MD Status: PRE ER Study: Brain/Head without Contrast Date of Exam: 04/12 06/06 Exam# [id number] Ordering Dr: Dave Velasco MD EXAM: BRAIN/HEAD WITHOUT CONTRAST CLINICAL HISTORY: FALL FINDINGS: Mucosal thickening of the right maxillary sinus consistent with chronic sinusitis. No bony abnormality. Moderate diffuse cerebral atrophy. Confluent areas of decreased attenuation within the periventricular white matter consistent with ischemic white matter changes. No area of increased attenuation to suggest acute hemorrhage. CT/Brain/Head without Contrast IMPRESSION: Chronic involutional changes of the brain. No acute intracranial hemorrhage. Reading Location: [facility] CC: Dr. Eloisa Espinal MD; Dr. Dave Velasco MD Data Collection Associate: Signed [facility] Shoulder min 2 Viewson 04-25 Shoulder min 2 Views [facility] [address] [place] [address] [id number] Shoulder min 2 Views MR#: [id number] Acct: [id number] Name: JAYDEN CRAIG Rep #: [id number] : 1940 M 83 From: Bala Arellano MD PCP: Dr. Eloisa Espinal MD Status: PRE ER Study: Shoulder min 2 Views Date of Exam: 04/25/24 Exam# [id number] Ordering Dr: Dave Velasco MD PROCEDURE: SHOULDER MIN 2 VIEWS REASON FOR EXAM: INJURY/PAIN TECHNIQUE: Four views left shoulder COMPARISON: None. FINDINGS: LEFT SHOULDER: No fracture or dislocation. RAD/Shoulder min 2 Views IMPRESSION: No fracture or dislocation. Reading Location: [facility] CC: Dr. Eloisa Espinal MD; Dr. Dave Velasco MD Data Collection Associate: Signed [facility] 12 Lead EKG performed by [facility] on 04-23-2024 12 Lead EKG performed by [facility] [address] [place] [address] 12 Lead EKG performed by [facility] 04/23/2430 MR#: [id number] Acct: [id number] Name: JAYDEN CRAIG Rep #: [id number] : 1940 83 From: Stacey Daly MD Attending Dr: Dr. Stacey Daly MD Status: DEP AMB Ordering Dr: Stacey Daly MD Date: 04/23/24 Location: [facility] Sex: M C Admitted: [facility]/12 Lead EKG performed by [facility] ECG Report Interpretation -----Sinus Rhythm - occasional PAC # PACs = 1.-RSR(V1) -nondiagnostic. PROBABLY NORMALElectronically signed on 07/09/2024 at 13:[address] Stacey Daly [place] Software Version [id number] 07/09/24 1302 Date Stacey Daly MD CC: Dr. Eloisa Espinal MD Date Dictated: 04/23/24829 Date Transcribed: 04/23/24829 Data Collection Associate: DARRYL Signed Normal [facility] Cardiology Visit Reporton Cardiology Visit Report [facility] [address] [place] [address] OFFICE VISIT Date of Service: 04/23/24 MR#: [id number] Acct: [id number] Name: JAYDEN CRAIG Rep #: [id number] : 1940 Provider: Dr. Stacey Daly MD Age/Sex: 83/M Location: [facility] Status: Signed HPI HPI History of Present Illness Details: This gentleman has a history of coronary artery disease status post CABG in 2019. According to him, he received 3 grafts to his coronary arteries. Also history of dyslipidemia and COPD. 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 Patient is also scheduled to undergo a hernia repair surgery for the end of this month. We are asked to evaluate his cardiac risk for the proposed procedure. Patient denies any chest pains either at rest or with exertion. For the past couple of years, he has been feeling short of breath with exertion. According to him, it is progressively gotten worse. Moderate exertion makes him short of breath. Denies any orthopnea. No PND. Denies any ankle edema. Denies any palpitations. Occasional lightheadedness. No syncope or presyncope. 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: No Accompanied by: Is patient in pain?: Yes (chronic) Allergies cefdinir (From Omnicef) Allergy (Intermediate, Verified 11/25/23 18:17) Diarrhea atorvastatin Adverse Reaction (Intermediate, Verified 11/25/23 18:17) myalgias azithromycin (From Zithromax) Adverse Reaction (Verified 11/25/23 18:17) Nausea/Vom/Diarrhea Medications ???Medication ???Instructions ???Recorded ???Confirmed ???Type acetaminophen 325 mg tablet 650 mg PO Q4H PRN Pain Or Fever 04/23/24 History aspirin 81 mg tablet,delayed 81 mg PO DAILY 12/09/18 04/23/24 H istory release (Adult Aspirin Regimen) lisinopril 10 mg tablet 10 mg PO DAILY bp 12/09/18 5 History magnesium oxide 400 mg PO DAILY 12/09/18 04/23/24 History multivitamin 1 tab PO QAM 12/09/18 04/23/24 His tory pantoprazole 40 mg tablet,delayed 40 mg PO BID 12/09/18 04/23/24 Hi story release simvastatin 80 mg tablet 80 mg PO QHS cholesterol 12/09/18 04/23/24 History fluticasone propionate 115 2 inh inhalation BID sob 09/17/21 04/23/24 History mcg-salmeterol 21 mcg/actuation HFA inhaler (Advair HFA) fluticasone propionate 50 2 ea intranasal BID stuffiness 08/0304/23/24 History mcg/actuation nasal spray,suspension ibuprofen 200 mg tablet 200 mg PO Q6H PRN pain #30 tabs 04/23/24 Rx levothyroxine 175 mcg tablet 175 mcg PO DAILY disorder of 06/2904/23/24 History thyroid gland metoprolol tartrate 25 mg tablet 25 mg PO BID 06/30/23 04/23/24 His tory tamsulosin 0.4 mg capsule 0.4 mg PO QHS 06/30/23 04/23/24 Hi story albuterol sulfate 90 mcg/actuation 2 puff inhalation Q4-6H PRN 06/0604/23/24 History aerosol inhaler Ejection fraction %: 54 Have you fallen in the past year?: Yes (fall off tractor; no major injuries; sciatica pain) PFSH Medical History Abdominal wall hernia Acquired hypothyroidism Atherosclerosis of coronary artery of [place] heart without angina pectoris Escobedo's esophagus 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 CAD (coronary artery disease) Chronic fatigue, unspecified Constipation DDD (degenerative disc disease), lumbar Essential hypertension GERD (gastroesophageal reflux disease) Hiatal hernia Hyperlipidemia Hypothyroidism Mild intermittent asthma without complication Paroxysmal atrial fibrillation Peptic ulcer, site unspecified, unspecified as acute or chronic, without hemorrhage or perforation Shortness of breath Surgical History History of back surgery ( 04/25/17) 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) History of repair of hiatal hernia History of umbilical hernia repair History of ventral hernia repair Hx laparoscopic cholecystectomy Family History Mother Emphysema of lung Father Emphysema of lung Social History Smoking Status: Former smoker quit date: 02/12/81 pack-years: 13 Tobacco: How many years used: 27 Electronic Cigarette Use: not used how long ago did patient quit smokin years ago alcohol intake: former substance use type: does not use (more content not included)... [facility]AY[facility]RA[facility] ([id number]) 1940 M NFR Date Time Provider Department 04/08[facility]24 [facility] During your visit today, we recorded the following information about you: Marely Begum MA 04/08/2024 11:26 AM Signed Office received fax from [facility] requesting alternative medication for Fluticasone-Salmetero l 115-21. Pharmacy comments: The Prescribed mediation is not covered by Insurance. Please consider changing to one of the suggested covered alternatives. Suggested alternatives: Advair HFA 45-21 mcg inhaler, Breyna 80-4.5 mcg inhaler, Breo Ellipta 100-25 mcg Inhaler. Please review and advise. VAMSI Qureshi Mark D, MD 04/08/2024 3:12 PM Signed OK to change as ordered MD Kel Sosa Rilee, MA 04/08/2024 3:52 PM Signed Pt notified of this via [employer]. Marely Begum MA Allergies As of Date: 04/08/2024 Noted Allergy Reaction LIPITOR (ATORVASTATIN CALCIUM) 02/01/2006 5 - Intolerance Comments: myalgias OMNICEF (CEFDINIR) 2013 6 - Diarrhea ZITHROMAX (AZITHROMYCIN) 02/23/2005 Date Reviewed: 04/02/2024 Reviewed by: Britni Wilson APRN.TRANSFER AND PUMPHOUSE OPERATOR CHIEF - Fully Assessed Reason for Visit: Medication Problem [65] Cmt: Alternative requested Order(s):budesonide-f ormoterol (BREYNA) 80-4.5 mcg/actuation inhalerInhale 2 Puffs as instructed two times a day.Disp: 10.2 gRfl: 11 Prescriptions as of 04/08/2024 - budesonide-formoterol (BREYNA) 80-4.5 mcg/actuation inhaler Inhale 2 Puffs as instructed two times a day. - fluticasone (FLONASE) 50 mcg/actuation nasal spray Use 2 Sprays in each nostril once daily. Rinse mouth after use. - albuterol HFA (PROVENTIL HFA, VENTOLIN HFA) 90 mcg/actuation inhaler Inhale 2 Puffs as instructed every 4 hours as needed for wheezing/shortness of breath. - tamsulosin (FLOMAX) 0.4 mg TAKE 1 CAPSULE BY MOUTH EVERYDAY AT BEDTIME - levothyroxine (LEVOXYL) 175 mcg tablet Take 1 tablet by mouth once daily. Take on empty stomach. For thyroid. - metoprolol tartrate, short acting, (LOPRESSOR) 25 mg tablet Take 1 tablet by mouth two times a day. - lisinopril (ZESTRIL) 10 mg tablet take 1 tablet by mouth every day - simvastatin (ZOCOR) 80 mg tablet take 1 tablet by mouth everyday at bedtime - pantoprazole DR (PROTONIX) 40 mg tablet Take 1 tablet by mouth two times a day. Take on empty stomach, 1/2 hr before meal. - aspirin, enteric coated (ASPIRIN, ENTERIC COATED) 325 mg EC tablet Take 1 tablet by mouth once daily. - magnesium oxide (MAG-OX) 400 mg (241.3 mg magnesium) tablet Take 1 tablet by mouth once daily. - acetaminophen (TYLENOL) 325 mg tablet Take 2 tablets by mouth every 4 hours as needed. - THERAPEUTIC MULTIVITAMIN TAB Take 1 tablet by mouth once daily. Meds Comments as of 12/26/2018: 12/25/18 The medications are managed by this patient by: SPOUSE Ila Winkler PharmD severe interactions reported to [facility] 12/2607/30/18 The medications are managed by this patient by: PATIENT Elsa Gallagher PharmD Problem List As Of Date 04/08/2024 Noted Resolved Mixed hyperlipidemia [E78.2] Acquired hypothyroidism [E03.9] Unspecified hemorrhoids without mention of comp* 10/20/2010 Hiatal hernia [K44.9] Diverticulosis of colon (without mention of hem* 10/20/2010 PEPTIC ULCER NOS [K27.9] 05/30/2007 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 [K22.70] 05/30/2007 Esophagitis, unspecified [K20.90] 08/29/2007 10/20/2010 Asthma [J45.909] 07/16/2014 Escobedo's esophagus determined by biopsy [K22.7*08/05/2015 Chronic left-sided low back pain with left-side*12/09/2015 08/18/2021 Overweight (BMI 25.0-29.9) [E66.3] 05/24/2016 Lumbar foraminal stenosis [M48.061] 09/13/2016 Intervertebral disc disorder with radiculopathy* 017 DDD (degenerative disc disease), lumbar [M51.36*09/13/2016 Spondylosis of lumbar region without myelopathy*09/13/2016 Atherosclerotic heart disease of ton[place] coronar* Pre-op testing [Z01.818] 07/23/2018 09/19/2018 Discharge planning issues [Z75.8] 07/23/2018 Difficult airway for intubation [T88.4XXA] 07/24/2018 07/29/2018 Pain, postoperative, acute [G89.18] 07/24/2018 Atelectasis [J98.11] 07/24/2018 07/26/2018 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/2018 Postoperative hypotension [I95.81] 07/24/2018 07/25/2018 Coagulopathy (HCC) [D68.9] 07/24/2018 07/25/2018 Hypovolemia [E86.1] 07/24/2018 07/25/2018 Esophageal stricture [K22.2] 07/24/2018 Transition of care performed with sharing of cl*07/26/2018 09/19/2018 Gastroesophageal reflux disease with esophagiti*07/26/2018 Obesity, Class I, BMI 30-34.9 [E66.811] 07/26/2018 09/19/2018 Acute cholecystitis [K81.0] 12/15/2018 12/24/2018 Paroxysmal atrial fibrillation (HCC) [I48.0] 12/20/2018 Ileus (HCC) [K56.7] 12/20/2018 12/24/2018 Acute blood loss anemia [D62] 12/20/2018 Essential hypertension [I10] 01/15 (more content not included)... Normal [facility] CNPNon 04-02-2024 CNPN Telephone (PANEWO) JAYDEN CRAIG ([id number]) 1940 M NFR Date Time Provider Department 04/02/24 BRITNI WILSON During your visit today, we recorded the following information about you: Rama Olivarez LPN 04/02/2024 11:11 AM Signed Called and spoke with [facility]. They request the referral be sent and they will schedule. Faxed and requested they notify me with date and time so we can r/s surgery. RETA Lyn Kim E, LPN 04/02/2024 1:47 PM Signed [facility] faxed back. Patient is being seen on 04/23/[address] Daly. RETA Armstrong Jessica, LPN 04/02/2024 3:45 PM Signed Varun, ty surgery can be rescheduled after 04/23/24 heart group appt as long as he is cleared. RETA Lyn Jamie 04/11/2024 3:13 PM Signed Rescheduled Surgery 05-06-2024 Rama Olivarez LPN 04/23/2024 3:44 PM Signed Received cardiac office visit. Scanned into [employer] through Onbase scanning. Rama Olivarez LPN Allergies As of Date: 04/02/2024 Noted Allergy Reaction LIPITOR (ATORVASTATIN CALCIUM) 02/01/2006 5 - Intolerance Comments: myalgias OMNICEF (CEFDINIR) 2013 6 - Diarrhea ZITHROMAX (AZITHROMYCIN) 02/23/2005 Date Reviewed: 04/02/2024 Reviewed by: Britni Wilson APRN.TRANSFER AND PUMPHOUSE OPERATOR CHIEF - Fully Assessed Reason for Visit: Prescriptions as of 04/23/2024 - budesonide-formoterol (BREYNA) 80-4.5 mcg/actuation inhaler Inhale 2 Puffs as instructed two times a day. - fluticasone (FLONASE) 50 mcg/actuation nasal spray Use 2 Sprays in each nostril once daily. Rinse mouth after use. - albuterol HFA (PROVENTIL HFA, VENTOLIN HFA) 90 mcg/actuation inhaler Inhale 2 Puffs as instructed every 4 hours as needed for wheezing/shortness of breath. - tamsulosin (FLOMAX) 0.4 mg TAKE 1 CAPSULE BY MOUTH EVERYDAY AT BEDTIME - levothyroxine (LEVOXYL) 175 mcg tablet Take 1 tablet by mouth once daily. Take on empty stomach. For thyroid. - metoprolol tartrate, short acting, (LOPRESSOR) 25 mg tablet Take 1 tablet by mouth two times a day. - lisinopril (ZESTRIL) 10 mg tablet take 1 tablet by mouth every day - simvastatin (ZOCOR) 80 mg tablet take 1 tablet by mouth everyday at bedtime - pantoprazole DR (PROTONIX) 40 mg tablet Take 1 tablet by mouth two times a day. Take on empty stomach, 1/2 hr before meal. - aspirin, enteric coated (ASPIRIN, ENTERIC COATED) 325 mg EC tablet Take 1 tablet by mouth once daily. - magnesium oxide (MAG-OX) 400 mg (241.3 mg magnesium) tablet Take 1 tablet by mouth once daily. - acetaminophen (TYLENOL) 325 mg tablet Take 2 tablets by mouth every 4 hours as needed. - THERAPEUTIC MULTIVITAMIN TAB Take 1 tablet by mouth once daily. Meds Comments as of 12/26/2018: 12/25/18 The medications are managed by this patient by: SPOUSE Ila Winkler PharmD [facility] 12/2607/30/18 The medications are managed by this patient by: PATIENT Elsa Gallagher PharmD Problem List As Of Date 04/02/2024 Noted Resolved Mixed hyperlipidemia [E78.2] Acquired hypothyroidism [E03.9] Unspecified hemorrhoids without mention of comp* 10/20/2010 Hiatal hernia [K44.9] Diverticulosis of colon (without mention of hem* 10/20/2010 PEPTIC ULCER NOS [K27.9] 05/30/2007 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 [K22.70] 05/30/2007 Esophagitis, unspecified [K20.90] 08/29/2007 10/20/2010 Asthma [J45.909] 07/16/2014 Escobedo's esophagus determined by biopsy [K22.7*08/05/2015 Chronic left-sided low back pain with left-side*12/09/2015 08/18/2021 Overweight (BMI 25.0-29.9) [E66.3] 05/24/2016 Lumbar foraminal stenosis [M48.061] 09/13/2016 Intervertebral disc disorder with radiculopathy* 017 DDD (degenerative disc disease), lumbar [M51.36*09/13/2016 Spondylosis of lumbar region without myelopathy*09/13/2016 Atherosclerotic heart disease of [place] coronar* Pre-op testing [Z01.818] 07/23/2018 09/19/2018 Discharge planning issues [Z75.8] 07/23/2018 Difficult airway for intubation [T88.4XXA] 07/24/2018 07/29/2018 Pain, postoperative, acute [G89.18] 07/24/2018 Atelectasis [J98.11] 07/24/2018 07/26/2018 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/2018 Postoperative hypotension [I95.81] 07/24/2018 07/25/2018 Coagulopathy (HCC) [D68.9] 07/24/2018 07/25/2018 Hypovolemia [E86.1] 07/24/2018 07/25/2018 Esophageal stricture [K22.2] 07/24/2018 Transition of care performed with sharing of cl*07/26/2018 09/19/2018 Gastroesophageal reflux disease with esophagiti*07/26/2018 Obesity, Class I, BMI 30-34.9 [E66.811] 07/26/2018 09/19/2018 Acute cholecystitis [K81.0] 12/15/2018 12/24/2018 Paroxysmal atrial fibrillation (HCC) [I48.0] 12/20/2018 Ileus (HCC) [K56.7] 12/20/2018 12/24/2018 Acute blood loss anemia [D62] 12/20/2018 Essential hypertension [I10] 01/15/2019 Chronic anticoagulation [Z79.01] 01/15/2019 Hx of CABG [Z95.1] 01/15/2019 (more content not included)... Normal [facility] HISTORY PHYSICALon HISTORY PHYSICAL HNO ID: [id number] Author: BRITNI WILSON APRN.TRANSFER AND PUMPHOUSE OPERATOR CHIEF Service: ? Author Type: Nurse Practitioner Type: H&P Filed: 04/02/2024 11:04 Note Text: [facility] appt cancelled, pt has pending cardiology consult placed by PCP's office 03/19/2024 2/ SOB with activity. 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 Pt wants to be kept local requesting [facility] for appt. Jackeline Harris Calling to set this up. Surgeon's office is aware. Normal [facility] CNTHERAPYon 04-01-2024 CNTHERAPY OT/PT/Speech Visit (PTWS) JAYDEN CRAIG ([id number]) 1940 M NFR Date Time Provider Department 04/01/24 2:00 PM HERMAN KAUR PTJUVENAL Date Time Provider Department Center 04/01/2024 2:00 PM [id number], BRENT PTWS Blanca Saleh Reason for Visit: Physical Therapy [503] Primary Visit Diagnosis:Right sided sciatica [M54.31] Allergies As of Date: 04/01/2024 Noted Allergy Reaction LIPITOR (ATORVASTATIN CALCIUM) 02/01/2006 5 - Intolerance Comments: myalgias OMNICEF (CEFDINIR) 2013 6 - Diarrhea ZITHROMAX (AZITHROMYCIN) 02/23/2005 Date Reviewed: 03/26/2024 Reviewed by: Dk Bynum MD - Fully Assessed Prescriptions as of 04/01/2024 - fluticasone (FLONASE) 50 mcg/actuation nasal spray Use 2 Sprays in each nostril once daily. Rinse mouth after use. - albuterol HFA (PROVENTIL HFA, VENTOLIN HFA) 90 mcg/actuation inhaler Inhale 2 Puffs as instructed every 4 hours as needed for wheezing/shortness of breath. - fluticasone-salmetero l HFA (ADVAIR) 115-21 mcg/actuation inhaler Inhale 2 Puffs as instructed two times a day. Rinse mouth after use. - tamsulosin (FLOMAX) 0.4 mg TAKE 1 CAPSULE BY MOUTH EVERYDAY AT BEDTIME - levothyroxine (LEVOXYL) 175 mcg tablet Take 1 tablet by mouth once daily. Take on empty stomach. For thyroid. - metoprolol tartrate, short acting, (LOPRESSOR) 25 mg tablet Take 1 tablet by mouth two times a day. - lisinopril (ZESTRIL) 10 mg tablet take 1 tablet by mouth every day - simvastatin (ZOCOR) 80 mg tablet take 1 tablet by mouth everyday at bedtime - pantoprazole DR (PROTONIX) 40 mg tablet Take 1 tablet by mouth two times a day. Take on empty stomach, 1/2 hr before meal. - aspirin, enteric coated (ASPIRIN, ENTERIC COATED) 325 mg EC tablet Take 1 tablet by mouth once daily. - magnesium oxide (MAG-OX) 400 mg (241.3 mg magnesium) tablet Take 1 tablet by mouth once daily. - acetaminophen (TYLENOL) 325 mg tablet Take 2 tablets by mouth every 4 hours as needed. - THERAPEUTIC MULTIVITAMIN TAB Take 1 tablet by mouth once daily. Meds Comments as of 12/26/2018: 12/25/18 The medications are managed by this patient by: SPOUSE Ila Winkler PharmD severe interactions reported to [facility] 12/2607/30/18 The medications are managed by this patient by: PATIENT Elsa Gallagher PharmD [facility] CNOVon 03-26-2024 CNOV Office Visit (GENSWS ) JAYDEN CRAIG ([id number]) 1940 M NF Date Time Provider Department 03/26/24 11:45 AM DK BYNUM During your visit today, we recorded the following information about you: Temperature Pulse Respiration Blood pressure 97.9 degrees 99/minute 19/minute 132/62 Weight 81.2 kg Marlen Ma MA 03/26/2024 12:58 PM Signed REVIEW OF SYSTEMS: General: The patient denies fatigue, denies weight loss, denies weight gain, denies feeling hot, and denies feelings of cold. Eyes: The patient denies glaucoma, denies eye injury/surgery, does not wear glasses or contacts. Ear/Nose/Throat: The patient denies allergies, denies hayfever, denies ear infections, and denies bloody noses. Cardiovascular: The patient denies chest pain, NOTES heart disease, NOTES high blood pressure,denies cardiac stent, denies prior heart attack, denies irregular heart beat, NOTES high cholesterol, denies poor circulation, denies heart failure, other cardiac issues, denies claudication, denies cold feet, denies peripheral arterial stent. Respiratory: The patient denies tuberculosis, denies pneumonia, denies frequent cough, denies pulmonary embolism, NOTES shortness of breath, and denies coughing up blood. Gastrointestinal: The patient denies difficulty swallowing, NOTES acid reflux, denies ulcers, denies vomiting, denies jaundice/hepatitis, NOTES gallbladder problems, denies black or tarry stools, denies hemorrhoids, denies bleeding from rectum, denies diverticulitis, denies constipation, denies diarrhea, denies loss of stool control, and denies hernias. Kidney/Bladder: The patient denies kidney stones, denies urine infections, and denies bloody urine. Skin: The patient denies a history of skin cancer, denies bleeding/changing moles, and denies a history of skin rash. Neurologic: The patient denies a history of epilepsy/convulsions, denies headaches, denies head/spinal injuries, and denies stroke/TIA. Psychiatric: The patient denies psychiatric medications, denies depression, and denies voices, denies substance abuse. Endocrine: The patient NOTES thyroid disorders, denies diabetes, and denies hormonal problems. Hematologic: The patient denies a history of bruising, denies bleeding, and denies anemia, denies blood clots. Infections: The patient NOTES a history of measles and mumps, denies rheumatic fever, and denies sexually transmitted diseases. Musculoskeletal: The patient denies back pain/injury, NOTES back problems, NOTES sciatica, denies knee/foot trouble, NOTES arthritis, or denies gout. When was patient's last Mammogram screening? N/A Last Colonoscopy: 2016 VAMSI Foley Richard T, MD 03/26/2024 12:58 PM Signed HISTORY AND PHYSICAL Jayden Craig 1940 REFERRING PHYSICIAN: Elsa Mayo APRN.C* CHIEF COMPLAINT: Consult HPI: Jayden is a 83 year old male with a complaint of a bulge and discomfort in his prior supraumbilical incisional hernia repair site. The patient notes discomfort in this area with lifting and coughing. The symptoms have increased, over the past few months. The patient notes no symptoms of bowel obstruction and denies nausea or vomiting. The patient underwent repair of a type 3 paraesophageal hernia on August 24, 2022 along with repair of a simple umbilical hernia. He then had repair without mesh of two fascial defects on April 03, 2024. The defects were closed with 0 PDS and the two defects were noted to be 4x4cm and 1x2cm. 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 Regina Oswald APPENDECTOMY COLONOSCOPY FLX DX W/COLLJ SPEC WHEN PFRMD 06/28/2004 Colonoscopy COLONOSCOPY FLX DX W/COLLJ SPEC WHEN PFRMD 08/06/2015 Colonoscopy CORONARY ARTERY BYPASS GRAFT HX 07/24/2018 VASQUES in situ mammary end to side mid LAD, Vein graft ascending aorta end to side RCA, Vein graft ascending aorta end to side obtuse marginal 1. EGD N/A 06/29/2020 Dr. Isidro MELGARD (more content not included)... Normal [facility] CNPNon 03-26-2024 CNPN Telephone (GENSWS) JAYDEN CRAIG ([id number]) 1940 M NFR Date Time Provider Department 03/26/24 DK BYNUM During your visit today, we recorded the following information about you: Varun Black 03/26/2024 1:25 PM Signed 04-08-2024 Hernia Repair patient aware, and has direct number to call with questions Varun Crowe 04/11/2024 3:12 PM Signed patient was not cleared though PACC , patient needs to see cardio, Patient has cardio set up april 23, rescheduled surgery for 05-06-2024 Allergies As of Date: 03/26/2024 Noted Allergy Reaction LIPITOR (ATORVASTATIN CALCIUM) 02/01/2006 5 - Intolerance Comments: myalgias OMNICEF (CEFDINIR) 2013 6 - Diarrhea ZITHROMAX (AZITHROMYCIN) 02/23/2005 Date Reviewed: 03/26/2024 Reviewed by: Dk Bynum MD - Fully Assessed Reason for Visit: 04-08-2024 Hernia Hood [Other] Prescriptions as of 05/07/2024 - budesonide-formoterol (BREYNA) 80-4.5 mcg/actuation inhaler Inhale 2 Puffs as instructed two times a day. - fluticasone (FLONASE) 50 mcg/actuation nasal spray Use 2 Sprays in each nostril once daily. Rinse mouth after use. - albuterol HFA (PROVENTIL HFA, VENTOLIN HFA) 90 mcg/actuation inhaler Inhale 2 Puffs as instructed every 4 hours as needed for wheezing/shortness of breath. - tamsulosin (FLOMAX) 0.4 mg TAKE 1 CAPSULE BY MOUTH EVERYDAY AT BEDTIME - levothyroxine (LEVOXYL) 175 mcg tablet Take 1 tablet by mouth once daily. Take on empty stomach. For thyroid. - metoprolol tartrate, short acting, (LOPRESSOR) 25 mg tablet Take 1 tablet by mouth two times a day. - lisinopril (ZESTRIL) 10 mg tablet take 1 tablet by mouth every day - simvastatin (ZOCOR) 80 mg tablet take 1 tablet by mouth everyday at bedtime - pantoprazole DR (PROTONIX) 40 mg tablet Take 1 tablet by mouth two times a day. Take on empty stomach, 1/2 hr before meal. - aspirin, enteric coated (ASPIRIN, ENTERIC COATED) 325 mg EC tablet Take 1 tablet by mouth once daily. - magnesium oxide (MAG-OX) 400 mg (241.3 mg magnesium) tablet Take 1 tablet by mouth once daily. - acetaminophen (TYLENOL) 325 mg tablet Take 2 tablets by mouth every 4 hours as needed. - THERAPEUTIC MULTIVITAMIN TAB Take 1 tablet by mouth once daily. 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 [K22.70] 05/30/2007 Esophagitis, unspecified [K20.90] 08/29/2007 10/20/2010 Asthma [J45.909] 07/16/2014 Escobedo's esophagus determined by biopsy [K22.7*08/05/2015 Chronic left-sided low back pain with left-side*12/09/2015 08/18/2021 Overweight (BMI 25.0-29.9) [E66.3] 05/24/2016 Lumbar foraminal stenosis [M48.061] 09/13/2016 Intervertebral disc disorder with radiculopathy* 017 DDD (degenerative disc disease), lumbar [M51.36*09/13/2016 Spondylosis of lumbar region without myelopathy*09/13/2016 Atherosclerotic heart disease of [place] coronar* Pre-op testing [Z01.818] 07/23/2018 09/19/2018 Discharge planning issues [Z75.8] 07/23/2018 Difficult airway for intubation [T88.4XXA] 07/24/2018 07/29/2018 Pain, postoperative, acute [G89.18] 07/24/2018 Atelectasis [J98.11] 07/24/2018 07/26/2018 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/2018 Postoperative hypotension [I95.81] 07/24/2018 07/25/2018 Coagulopathy (HCC) [D68.9] 07/24/2018 07/25/2018 Hypovolemia [E86.1] 07/24/2018 07/25/2018 Esophageal stricture [K22.2] 07/24/2018 Transition of care performed with sharing of cl*07/26/2018 09/19/2018 Gastroesophageal reflux disease with esophagiti*07/26/2018 Obesity, Class I, BMI 30-34.9 [E66.811] 07/26/2018 09/19/2018 Acute cholecystitis [K81.0] 12/15/2018 12/24/2018 Paroxysmal atrial fibrillation (HCC) [I48.0] 12/20/2018 Ileus (HCC) [K56.7] 12/20/2018 12/24/2018 Acute blood loss anemia [D62] 12/20/2018 Essential hypertension [I10] 01/15/2019 Chronic anticoagulation [Z79.01] 01/15/2019 Hx of CABG [Z95.1] 01/15/2019 S/P cholecystectomy [Z90.49] 01/15/2019 Rash [R21] 06/05/2019 Cervical radiculopathy [M54.12] 12/08/2021 02/01/2022 Left arm pain [M79.602] 12/08/2021 02/01/2022 Other disorders of arteries, arterioles and cap*06/09/2022 07/12/2023 COPD, 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 Normal [facility] CNTHERAPYon 03-24-2024 CNTHERAPY OT/PT/Speech Visit (PTWS) JAYDEN CRAIG ([id number]) 1940 M NFR Date Time Provider Department 03/24/24 10:30 AM HERMAN KAUR PTWS Date Time Provider Department Center 03/24/2024 10:30 AM [id number], BRENT PTWS Blanca Saleh Reason for Visit: Physical Therapy [503] Primary Visit Diagnosis:Right sided sciatica [M54.31] Allergies As of Date: 03/24/2024 Noted Allergy Reaction LIPITOR (ATORVASTATIN CALCIUM) 02/01/2006 5 - Intolerance Comments: myalgias OMNICEF (CEFDINIR) 2013 6 - Diarrhea ZITHROMAX (AZITHROMYCIN) 02/23/2005 Date Reviewed: 03/19/2024 Reviewed by: Celena Spencer LPN - Fully Assessed Prescriptions as of 03/24/2024 - albuterol HFA (PROVENTIL HFA, VENTOLIN HFA) 90 mcg/actuation inhaler Inhale 2 Puffs as instructed every 4 hours as needed for wheezing/shortness of breath. - fluticasone-salmetero l HFA (ADVAIR) 115-21 mcg/actuation inhaler Inhale 2 Puffs as instructed two times a day. Rinse mouth after use. - tamsulosin (FLOMAX) 0.4 mg TAKE 1 CAPSULE BY MOUTH EVERYDAY AT BEDTIME - levothyroxine (LEVOXYL) 175 mcg tablet Take 1 tablet by mouth once daily. Take on empty stomach. For thyroid. - metoprolol tartrate, short acting, (LOPRESSOR) 25 mg tablet Take 1 tablet by mouth two times a day. - lisinopril (ZESTRIL) 10 mg tablet take 1 tablet by mouth every day - simvastatin (ZOCOR) 80 mg tablet take 1 tablet by mouth everyday at bedtime - pantoprazole DR (PROTONIX) 40 mg tablet Take 1 tablet by mouth two times a day. Take on empty stomach, 1/2 hr before meal. - fluticasone (FLONASE) 50 mcg/actuation nasal spray Use 2 Sprays in each nostril once daily. Rinse mouth after use. - aspirin, enteric coated (ASPIRIN, ENTERIC COATED) 325 mg EC tablet Take 1 tablet by mouth once daily. - magnesium oxide (MAG-OX) 400 mg (241.3 mg magnesium) tablet Take 1 tablet by mouth once daily. - acetaminophen (TYLENOL) 325 mg tablet Take 2 tablets by mouth every 4 hours as needed. - THERAPEUTIC MULTIVITAMIN TAB Take 1 tablet by mouth once daily. Meds Comments as of 12/26/2018: 12/25/18 The medications are managed by this patient by: SPOUSE Ila Winkler PharmD severe interactions reported to [facility] 12/2607/30/18 The medications are managed by this patient by: PATIENT Elsa Gallagher PharmD Normal [facility] TSH SerPl-aCncon 03-21-2024 TSH Qn 2.630 m[IU]/L Normal 0.270-4.200 [facility] Comment on above: Order Comment: Speci men Type: BLOOD SPECIMENOrdering Facility: [facility] Address: [address] [place] [address] Performed By: #### 3 [id number] ####[facility] LABCLIA [id number] [place] [address] [place] CNOVon 03-19-2024 CNOV Office Visit (FAMPWS ) JAYDEN CRAIG ([id number]) 1940 M NFR Date Time Provider Department 03/19/24 11:40 [facility] During your visit today, we recorded the following information about you: Pulse Respiration Blood pressure Weight 84/minute 16/minute 108/68 81.8 kg Elsa Mayo APRN.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 Patient presents with: Acute Visit: increased SOB and fatique per PT Here in the office for SOB while at PT for back pain. HTN/Afib: Does check BP occasionally at home. Denies any chest pain and dizziness. No further syncopal episodes since last seen. Taking Lisinopril 10 mg once daily and Lopressor 25 mg 1 tab po bid. Echo completed in July 2023, ejection fraction 54%, grade 1 left ventricular diastolic dysfunction. No significant valvular abnormalities. Not currently following with cardiology. 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 Willing to establish care. Reports he is having increased SOB, he reports at physical therapy he is breathing harder and feels as if he is having difficulty breathing. No wheezing. Lipids: Tries to watch his diet. Exercises as able due to hx of asthma. On current regimen of Zocor 80 mg once daily. Tolerating well. Asthma: On current regimen of Advair 115-21 mcg 2 puffs once daily and Flonase 1 times daily. Constipation: He reports that 1-2 days a week he is having constipation. He reports taking Miralax and a stool softner at bedtime. Abdomen: reports his abdomen is distended and has some discomfort that is constant. Intermittent constipation. 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 CAD (coronary artery disease) Constipation Essential hypertension Fatigue, unspecified type H/O ventral hernia repair 04/03/2023 Hiatal hernia 1990 History of coronary artery bypass graft 07/24/2018 VASQUES in situ mammary end to side mid LAD, Vein graft ascending aorta end to side RCA, Vein graft ascending aorta end to side obtuse marginal 1 Hyperlipidemia Peptic ulcer, unspecified site, unspecified as acute or chronic, without mention of hemorrhage, perforation, or obstruction 2004 Unspecified hypothyroidism 1989 PAST SURGICAL HISTORY Procedure Laterality Date ANES HRNA RPR UPR ABD LMBRANDVENTRAL HERNIAANDDEHISC 04/03/[address] Regina Oswald APPENDECTOMY COLONOSCOPY FLX DX W/COLLJ SPEC WHEN PFRMD 06/28/2004 Colonoscopy COLONOSCOPY FLX DX W/COLLJ SPEC WHEN PFRMD 08/06/2015 Colonoscopy CORONARY ARTERY BYPASS GRAFT HX 07/24/2018 VASQUES in situ mammary end to side mid LAD, Vein graft ascending aorta end to side RCA, Vein graft ascending aorta end to side obtuse marginal 1. EGD N/A 06/29/2020 Dr. Keating EGD 05/31/2021 EGD TRANSORAL BIOPSY SINGLE/MULTIPLE 08/30/2009 EGD TRANSORAL BIOPSY SINGLE/MULTIPLE 08/23/2011 repeat in 2 years ESOPHAGOGASTRODUODENO SCOPY TRANSORAL DIAGNOSTIC 10/06/1998 EGD ESOPHAGOGASTRODUODENO SCOPY TRANSORAL DIAGNOSTIC 01/29/2000 EGD ESOPHAGOGASTRODUODENO SCOPY TRANSORAL DIAGNOSTIC 08/04/2003 EGD ESOPHAGOGASTRODUODENO SCOPY TRANSORAL DIAGNOSTIC 08/29/2007 EGD ESOPHAGOGASTRODUODENO SCOPY TRANSORAL DIAGNOSTIC 08/28/2013 EGD ESOPHAGOGASTRODUODENO SCOPY TRANSORAL DIAGNOSTIC 10/08/2017 EGD HEART SURGERY HX HIATAL HERNIA REPAIR HX 08/24/2022 Laparoscopic paraesophageal hernia repair with gastropexy, Primary repair of ventral hernia, EGD LAPAROSCOPIC CHOLECYSTECTOMY 12/15/2018 PAST SURGICAL HISTORY OF N/A 04/25/2017 Back surgery done at [facility], 4 vertabrea and cleaned up arthritis REPAIR UMBILICAL HERNIA 08/24/2022 ALLERGIES Lipitor [Atorvastatin Calcium], Omnicef [Cefdinir], and Zithromax [Azithromycin] MEDICATIONS Current Outpatient Medications Medication Sig fluticasone-salmetero l HFA (ADVAIR) 115-21 mcg/actuation inhaler Inhale 2 Puffs as instructed two times a day. Rinse mouth after use. tamsulosin (FLOMAX) 0.4 mg TAKE 1 CAPSULE BY MOUTH EVERYDAY AT BEDTIME levothyroxine (LEVOXYL) 175 mcg tablet Take 1 tablet by mouth once daily. Take on empty stomach. For thyroid. metoprolol tartrate, short acting, (LOPRESSOR) 25 mg tablet Take 1 tablet by mouth two times a day. lisinopril (ZESTRIL) 10 mg tablet take 1 tablet by mouth every day simvastatin (ZOCOR) 80 mg tablet take 1 tablet by mouth everyday at bedtime pantoprazole DR (PROTONIX) 40 mg tablet Take 1 tablet by mouth two times a day. Take on empty stomach, 1/2 hr before meal. fluticasone (FLONASE) 50 mcg/actuation nasal spray Use 2 Sprays in each nostril once daily. Rinse mouth after use. (more content not included)... Normal [facility] [id number] 03-18-2024 [id number] HNO ID: [id number] Author: HERMAN KAUR PT Service: ? Author Type: Physical Therapist Type: [id number] Filed: 03/18/2024 17:41 Note Text: [facility] Physical Therapy Plan of Care Certification Patient Name: Jayden Craig : 1940 [facility] #: [id number] Date: 03/18/2024 To: Eloisa Espinal MD From Therapist: Herman Kaur PT RE: Patient Certification/ Recertification Your review, approval and electronic signature are required in order to comply with Payor: MEDICARE / Plan: MEDICARE A AND B / Product Type: Medicare / regulations. The identified Physical Therapy PLAN OF CARE for the patient is as follows: M54.31 Right sided sciatica (primary encounter diagnosis) PLAN OF CARE UPDATE: Assessment: Jayden Craig demonstrates no improvement in rising from a chair, standing, and walking. The patient has progressed toward goals minimally but he has not been able to complete HEP. He does report a decrease in pain with manual lumbar belt traction. Patient continues to present with impairments in ADL's, gait, independence in exercise, overall function, patient reported outcome measures, posture, range of motion, strength, and symptom management that interfere with standing, walking, rising from a chair (regional liaison) . Current prognosis is Fair due to: clinical presentation, chronic nature of impairments, limited tolerance to activity, poor past response to therapy intervention. The patient will benefit from continued skilled therapy services to meet the updated goals for this plan of care as noted below. Updated: 03/18/24 Goals for Episode of Care: established 02/14/24 Patient reported outcome of physical function will increase T-score by a minimum 5 points. - Not MET, will continue Independent in home exercises. - Partially MET, will continue Patient will decrease pain to 0/10 with functional activities to allow patient to improve standing tolerance for ADLs. - Not MET, will continue Restore pain-free lumbar ROM to prior functional level to allow for improved tolerance with regional liaison. - Not MET, will continue Stand / Walk without limitation, without pain/symptoms for return to prior functional level. - Not MET, will continue Patient will be able to tolerate functional activities for regional liaison without increased symptoms. - Not MET, will continue Patient will increase strength of core/postural muscles to WFL to allow for improved standing tolerance. - Not MET, will continue Patient Goals: decrease pain and move around normally without pain. - Not MET, will continue Time Frame for Goals and Treatment : 04/15/24 Patient Goals: decrease pain and move around normally without pain. Planned Interventions, Frequency, and Duration: 1x/week, 4 weeks Total Number of Visits Planned: 4 Patient to be seen for Therapeutic exercise (97447), Neuromuscular re-education (75373), Manual therapy (23227), Therapeutic activities (86064), Self-alf management (63426), Patient/Family/Caregi corazon Education, Gait Training (10730), Body Mechanics Training PLAN FOR NEXT VISIT: Continue with postural stretching and strengthening with flexion directional preference. Continue manual lumbar belt traction. For further details regarding this patient refer to the Physical Therapy electronically documented visit dated 03/18/2024. Provider Attestation I have reviewed the treatment plan for Jayden Balderas Kiara, [facility]# [id number] for the period of 03/18/24 -- 04/15/24, established on 03/18/2024. Signature certifies the need for therapy services. Normal [facility] CNTHERAPYon 03-18-2024 CNTHERAPY OT/PT/Speech Visit (PTWS) JAYDEN CRAIG ([id number]) 1940 M NFR Date Time Provider Department 03/18/24 2:00 PM HERMAN KAUR PTWS Date Time Provider Department Center 03/18/2024 2:00 PM [id number], BRENT PTWS Blanca Saleh Reason for Visit: Physical Therapy [503] PT Progress Note [1596] Primary Visit Diagnosis:Right sided sciatica [M54.31] Allergies As of Date: 03/18/2024 Noted Allergy Reaction LIPITOR (ATORVASTATIN CALCIUM) 02/01/2006 5 - Intolerance Comments: myalgias OMNICEF (CEFDINIR) 2013 6 - Diarrhea ZITHROMAX (AZITHROMYCIN) 02/23/2005 Date Reviewed: 01/12/2024 Reviewed by: Marely Begum MA - Fully Assessed Prescriptions as of 03/18/2024 - fluticasone-salmetero l HFA (ADVAIR) 115-21 mcg/actuation inhaler Inhale 2 Puffs as instructed two times a day. Rinse mouth after use. - tamsulosin (FLOMAX) 0.4 mg TAKE 1 CAPSULE BY MOUTH EVERYDAY AT BEDTIME - levothyroxine (LEVOXYL) 175 mcg tablet Take 1 tablet by mouth once daily. Take on empty stomach. For thyroid. - metoprolol tartrate, short acting, (LOPRESSOR) 25 mg tablet Take 1 tablet by mouth two times a day. - lisinopril (ZESTRIL) 10 mg tablet take 1 tablet by mouth every day - simvastatin (ZOCOR) 80 mg tablet take 1 tablet by mouth everyday at bedtime - pantoprazole DR (PROTONIX) 40 mg tablet Take 1 tablet by mouth two times a day. Take on empty stomach, 1/2 hr before meal. - fluticasone (FLONASE) 50 mcg/actuation nasal spray Use 2 Sprays in each nostril once daily. Rinse mouth after use. - aspirin, enteric coated (ASPIRIN, ENTERIC COATED) 325 mg EC tablet Take 1 tablet by mouth once daily. - magnesium oxide (MAG-OX) 400 mg (241.3 mg magnesium) tablet Take 1 tablet by mouth once daily. - acetaminophen (TYLENOL) 325 mg tablet Take 2 tablets by mouth every 4 hours as needed. - THERAPEUTIC MULTIVITAMIN TAB Take 1 tablet by mouth once daily. Meds Comments as of 12/26/2018: 12/25/18 The medications are managed by this patient by: SPOUSE Ila Winkler PharmD severe interactions reported to [facility] 12/2607/30/18 The medications are managed by this patient by: PATIENT Elsa Gallagher PharmD [facility] CNTHERAPYon 03-11-2024 CNTHERAPY OT/PT/Speech Visit (PTWS) JAYDEN CRAIG ([id number]) 1940 M NFR Date Time Provider Department 03/11/24 2:00 PM MARTHA MAHER PTJUVENAL Date Time Provider Department Center 03/11/2024 2:00 PM [id number], MARIAH PTJUVENAL Saleh Reason for Visit: Physical Therapy [503] Primary Visit Diagnosis:Right sided sciatica [M54.31] Allergies As of Date: 03/11/2024 Noted Allergy Reaction LIPITOR (ATORVASTATIN CALCIUM) 02/01/2006 5 - Intolerance Comments: myalgias OMNICEF (CEFDINIR) 2013 6 - Diarrhea ZITHROMAX (AZITHROMYCIN) 02/23/2005 Date Reviewed: 01/12/2024 Reviewed by: Marely Begum MA - Fully Assessed Prescriptions as of 03/11/2024 - fluticasone-salmetero l HFA (ADVAIR) 115-21 mcg/actuation inhaler Inhale 2 Puffs as instructed two times a day. Rinse mouth after use. - tamsulosin (FLOMAX) 0.4 mg TAKE 1 CAPSULE BY MOUTH EVERYDAY AT BEDTIME - levothyroxine (LEVOXYL) 175 mcg tablet Take 1 tablet by mouth once daily. Take on empty stomach. For thyroid. - metoprolol tartrate, short acting, (LOPRESSOR) 25 mg tablet Take 1 tablet by mouth two times a day. - lisinopril (ZESTRIL) 10 mg tablet take 1 tablet by mouth every day - simvastatin (ZOCOR) 80 mg tablet take 1 tablet by mouth everyday at bedtime - pantoprazole DR (PROTONIX) 40 mg tablet Take 1 tablet by mouth two times a day. Take on empty stomach, 1/2 hr before meal. - fluticasone (FLONASE) 50 mcg/actuation nasal spray Use 2 Sprays in each nostril once daily. Rinse mouth after use. - aspirin, enteric coated (ASPIRIN, ENTERIC COATED) 325 mg EC tablet Take 1 tablet by mouth once daily. - magnesium oxide (MAG-OX) 400 mg (241.3 mg magnesium) tablet Take 1 tablet by mouth once daily. - acetaminophen (TYLENOL) 325 mg tablet Take 2 tablets by mouth every 4 hours as needed. - THERAPEUTIC MULTIVITAMIN TAB Take 1 tablet by mouth once daily. Meds Comments as of 12/26/2018: 12/25/18 The medications are managed by this patient by: SPOUSE Ila Winkler PharmD severe interactions reported to [facility] 12/2607/30/18 The medications are managed by this patient by: PATIENT Elsa Gallagher PharmD Database Programmer: Therapy (PT/OT/Speech/Resp) ID: [id number] 03/11/2024 2:23 PM Author: MARTHA MAHER Signed by MARTHA MAHER SCORING MACHINE OPERATOR on 03/11/2024 at 2:23 PM Document text: Program_ID:[id number] Access Code: [email or web address] URL: [email or web address] Date: 03-11-2024 Prepared By: Herman Kaur Program Notes Exercises - Supine Lower Trunk Rotation - 3 x daily - 7 x weekly - 2 sets - 10 reps - Hooklying Single Knee to Chest Stretch - 3 x daily - 7 x weekly - sets - 3 reps - Supine Double Knee to Chest Modified - 3 x daily - 7 x weekly - sets - 3 reps - Supine Transversus Abdominis Bracing - Hands on Ground - 3 x daily - 7 x weekly - 2 sets - 10 reps - Curl Up with Arms Crossed - 3 x daily - 7 x weekly - 2 sets - 10 reps - Seated Flexion Stretch - 1 x daily - 7 x weekly - 1-2 sets - 10 reps - Scapular Retraction with Resistance - 1 x daily - 7 x weekly - 2 sets - 10 reps ----- Normal [facility] THERAPY NTon 03-11-2024 THERAPY NT HNO ID: [id number] Author: MARTHA MAHER PTA Service: ? Author Type: Metal Fabricating Supervisor Type: Therapy (PT/OT/Speech/Resp) Filed: 03/11/2024 14:23 Note Text: Program_ID:[id number] Access Code: [email or web address] URL: [email or web address]/ Date: 03-11-2024 Prepared By: Herman Kaur Program Notes Exercises - Supine Lower Trunk Rotation - 3 x daily - 7 x weekly - 2 sets - 10 reps - Hooklying Single Knee to Chest Stretch - 3 x daily - 7 x weekly - sets - 3 reps - Supine Double Knee to Chest Modified - 3 x daily - 7 x weekly - sets - 3 reps - Supine Transversus Abdominis Bracing - Hands on Ground - 3 x daily - 7 x weekly - 2 sets - 10 reps - Curl Up with Arms Crossed - 3 x daily - 7 x weekly - 2 sets - 10 reps - Seated Flexion Stretch - 1 x daily - 7 x weekly - 1-2 sets - 10 reps - Scapular Retraction with Resistance - 1 x daily - 7 x weekly - 2 sets - 10 reps Normal [facility] CNTHERAPYon 03-04-2024 CNTHERAPY OT/PT/Speech Visit (PTWS) JAYDEN CRAIG ([id number]) 1940 M NFR Date Time Provider Department 03/04/24 2:00 PM MARTHA MAHER PTWS Date Time Provider Department Center 03/04/2024 2:00 PM [id number], MARIAH PTWS Blanca Saleh Reason for Visit: Physical Therapy [503] Primary Visit Diagnosis:Right sided sciatica [M54.31] Allergies As of Date: 03/04/2024 Noted Allergy Reaction LIPITOR (ATORVASTATIN CALCIUM) 02/01/2006 5 - Intolerance Comments: myalgias OMNICEF (CEFDINIR) 2013 6 - Diarrhea ZITHROMAX (AZITHROMYCIN) 02/23/2005 Date Reviewed: 01/12/2024 Reviewed by: Marely Begum MA - Fully Assessed Prescriptions as of 03/04/2024 - tamsulosin (FLOMAX) 0.4 mg TAKE 1 CAPSULE BY MOUTH EVERYDAY AT BEDTIME - levothyroxine (LEVOXYL) 175 mcg tablet Take 1 tablet by mouth once daily. Take on empty stomach. For thyroid. - fluticasone-salmetero l HFA (ADVAIR) 115-21 mcg/actuation inhaler Inhale 2 Puffs as instructed two times a day. Rinse mouth after use. - metoprolol tartrate, short acting, (LOPRESSOR) 25 mg tablet Take 1 tablet by mouth two times a day. - lisinopril (ZESTRIL) 10 mg tablet take 1 tablet by mouth every day - simvastatin (ZOCOR) 80 mg tablet take 1 tablet by mouth everyday at bedtime - pantoprazole DR (PROTONIX) 40 mg tablet Take 1 tablet by mouth two times a day. Take on empty stomach, 1/2 hr before meal. - fluticasone (FLONASE) 50 mcg/actuation nasal spray Use 2 Sprays in each nostril once daily. Rinse mouth after use. - aspirin, enteric coated (ASPIRIN, ENTERIC COATED) 325 mg EC tablet Take 1 tablet by mouth once daily. - magnesium oxide (MAG-OX) 400 mg (241.3 mg magnesium) tablet Take 1 tablet by mouth once daily. - acetaminophen (TYLENOL) 325 mg tablet Take 2 tablets by mouth every 4 hours as needed. - THERAPEUTIC MULTIVITAMIN TAB Take 1 tablet by mouth once daily. Meds Comments as of 12/26/2018: 12/25/18 The medications are managed by this patient by: SPOUSE Ila Winkler PharmD severe interactions reported to [facility] 12/2607/30/18 The medications are managed by this patient by: PATIENT Elsa Gallagher PharmD Database Programmer: Therapy (PT/OT/Speech/Resp) ID: [id number] 03/04/2024 2:27 PM Author: MARTHA MAHER Signed by MARTHA MAHER SCORING MACHINE OPERATOR on 03/04/2024 at 2:27 PM Document text: Program_ID:[id number] Access Code: [email or web address] URL: [email or web address]/ Date: 03-04-2024 Prepared By: Herman Kaur Program Notes Exercises - Supine Lower Trunk Rotation - 3 x daily - 7 x weekly - 2 sets - 10 reps - Hooklying Single Knee to Chest Stretch - 3 x daily - 7 x weekly - sets - 3 reps - Supine Double Knee to Chest Modified - 3 x daily - 7 x weekly - sets - 3 reps - Supine Transversus Abdominis Bracing - Hands on Ground - 3 x daily - 7 x weekly - 2 sets - 10 reps - Curl Up with Arms Crossed - 3 x daily - 7 x weekly - 2 sets - 10 reps - Seated Flexion Stretch - 1 x daily - 7 x weekly - 1-2 sets - 10 reps ----- Normal [facility] THERAPY NTon 03-04-2024 THERAPY NT HNO ID: [id number] Author: MARTHA MAHER PTA Service: ? Author Type: Metal Fabricating Supervisor Type: Therapy (PT/OT/Speech/Resp) Filed: 03/04/2024 14:27 Note Text: Program_ID:[id number] Access Code: [email or web address] URL: [email or web address]/ Date: 03-04-2024 Prepared By: Herman Kaur Program Notes Exercises - Supine Lower Trunk Rotation - 3 x daily - 7 x weekly - 2 sets - 10 reps - Hooklying Single Knee to Chest Stretch - 3 x daily - 7 x weekly - sets - 3 reps - Supine Double Knee to Chest Modified - 3 x daily - 7 x weekly - sets - 3 reps - Supine Transversus Abdominis Bracing - Hands on Ground - 3 x daily - 7 x weekly - 2 sets - 10 reps - Curl Up with Arms Crossed - 3 x daily - 7 x weekly - 2 sets - 10 reps - Seated Flexion Stretch - 1 x daily - 7 x weekly - 1-2 sets - 10 reps Normal [facility] CNTHERAPYon 02-26-2024 CNTHERAPY OT/PT/Speech Visit (PTWS) JAYDEN CRAIG ([id number]) 1940 M NFR Date Time Provider Department 02/26/24 2:00 PM HERMAN KAUR PTJUVENAL Date Time Provider Department Center 02/26/2024 2:00 PM [id number], BRENT PTJUVENAL Saleh Reason for Visit: Physical Therapy [503] Primary Visit Diagnosis:Right sided sciatica [M54.31] Allergies As of Date: 02/26/2024 Noted Allergy Reaction LIPITOR (ATORVASTATIN CALCIUM) 02/01/2006 5 - Intolerance Comments: myalgias OMNICEF (CEFDINIR) 2013 6 - Diarrhea ZITHROMAX (AZITHROMYCIN) 02/23/2005 Date Reviewed: 01/12/2024 Reviewed by: Marely Begum MA - Fully Assessed Prescriptions as of 02/26/2024 - tamsulosin (FLOMAX) 0.4 mg TAKE 1 CAPSULE BY MOUTH EVERYDAY AT BEDTIME - levothyroxine (LEVOXYL) 175 mcg tablet Take 1 tablet by mouth once daily. Take on empty stomach. For thyroid. - fluticasone-salmetero l HFA (ADVAIR) 115-21 mcg/actuation inhaler Inhale 2 Puffs as instructed two times a day. Rinse mouth after use. - metoprolol tartrate, short acting, (LOPRESSOR) 25 mg tablet Take 1 tablet by mouth two times a day. - lisinopril (ZESTRIL) 10 mg tablet take 1 tablet by mouth every day - simvastatin (ZOCOR) 80 mg tablet take 1 tablet by mouth everyday at bedtime - pantoprazole DR (PROTONIX) 40 mg tablet Take 1 tablet by mouth two times a day. Take on empty stomach, 1/2 hr before meal. - fluticasone (FLONASE) 50 mcg/actuation nasal spray Use 2 Sprays in each nostril once daily. Rinse mouth after use. - aspirin, enteric coated (ASPIRIN, ENTERIC COATED) 325 mg EC tablet Take 1 tablet by mouth once daily. - magnesium oxide (MAG-OX) 400 mg (241.3 mg magnesium) tablet Take 1 tablet by mouth once daily. - acetaminophen (TYLENOL) 325 mg tablet Take 2 tablets by mouth every 4 hours as needed. - THERAPEUTIC MULTIVITAMIN TAB Take 1 tablet by mouth once daily. Meds Comments as of 12/26/2018: 12/25/18 The medications are managed by this patient by: SPOUSE Ila Winkler PharmD [facility] 12/[facility]7/30/18 The medications are managed by this patient by: PATIENT Elsa Gallagher PharmD Normal [facility] CNTHERAPYon 02-20-2024 CNTHERAPY OT/PT/Speech Visit (PTWS) JAYDEN CRAIG ([id number]) 1940 M NFR Date Time Provider Department 02/20/24 2:00 PM MARTHA MAHER Date Time Provider Department Center 02/20/2024 2:00 PM [id number] MAHER Reason for Visit: Physical Therapy [503] Primary Visit Diagnosis:Right sided sciatica [M54.31] Allergies As of Date: 02/20/2024 Noted Allergy Reaction LIPITOR (ATORVASTATIN CALCIUM) 02/01/2006 5 - Intolerance Comments: myalgias OMNICEF (CEFDINIR) 2013 6 - Diarrhea ZITHROMAX (AZITHROMYCIN) 02/23/2005 Date Reviewed: 01/12/2024 Reviewed by: Marely Begum MA - Fully Assessed Prescriptions as of 02/20/2024 - tamsulosin (FLOMAX) 0.4 mg TAKE 1 CAPSULE BY MOUTH EVERYDAY AT BEDTIME - levothyroxine (LEVOXYL) 175 mcg tablet Take 1 tablet by mouth once daily. Take on empty stomach. For thyroid. - fluticasone-salmetero l HFA (ADVAIR) 115-21 mcg/actuation inhaler Inhale 2 Puffs as instructed two times a day. Rinse mouth after use. - metoprolol tartrate, short acting, (LOPRESSOR) 25 mg tablet Take 1 tablet by mouth two times a day. - lisinopril (ZESTRIL) 10 mg tablet take 1 tablet by mouth every day - simvastatin (ZOCOR) 80 mg tablet take 1 tablet by mouth everyday at bedtime - pantoprazole DR (PROTONIX) 40 mg tablet Take 1 tablet by mouth two times a day. Take on empty stomach, 1/2 hr before meal. - fluticasone (FLONASE) 50 mcg/actuation nasal spray Use 2 Sprays in each nostril once daily. Rinse mouth after use. - aspirin, enteric coated (ASPIRIN, ENTERIC COATED) 325 mg EC tablet Take 1 tablet by mouth once daily. - magnesium oxide (MAG-OX) 400 mg (241.3 mg magnesium) tablet Take 1 tablet by mouth once daily. - acetaminophen (TYLENOL) 325 mg tablet Take 2 tablets by mouth every 4 hours as needed. - THERAPEUTIC MULTIVITAMIN TAB Take 1 tablet by mouth once daily. Meds Comments as of 12/26/2018: 12/25/18 The medications are managed by this patient by: SPOUSE Ila Winkler PharmD severe interactions reported to [facility] 12/2607/30/18 The medications are managed by this patient by: PATIENT Elsa Gallagher PharmD Normal [facility] CNTHERAPYon 02-18-2024 CNTHERAPY OT/PT/Speech Visit (PTWS) JAYDEN CRAIG ([id number]) 1940 M NFR Date Time Provider Department 02/18/24 3:00 PM HERMAN KAUR PTJUVENAL Date Time Provider Department Center 02/18/2024 3:00 PM [id number], BRENT PTJUVENAL Saleh Reason for Visit: Physical Therapy [503] Primary Visit Diagnosis:Right sided sciatica [M54.31] Allergies As of Date: 02/18/2024 Noted Allergy Reaction LIPITOR (ATORVASTATIN CALCIUM) 02/01/2006 5 - Intolerance Comments: myalgias OMNICEF (CEFDINIR) 2013 6 - Diarrhea ZITHROMAX (AZITHROMYCIN) 02/23/2005 Date Reviewed: 01/12/2024 Reviewed by: Marely Begum MA - Fully Assessed Prescriptions as of 02/18/2024 - tamsulosin (FLOMAX) 0.4 mg TAKE 1 CAPSULE BY MOUTH EVERYDAY AT BEDTIME - levothyroxine (LEVOXYL) 175 mcg tablet Take 1 tablet by mouth once daily. Take on empty stomach. For thyroid. - fluticasone-salmetero l HFA (ADVAIR) 115-21 mcg/actuation inhaler Inhale 2 Puffs as instructed two times a day. Rinse mouth after use. - metoprolol tartrate, short acting, (LOPRESSOR) 25 mg tablet Take 1 tablet by mouth two times a day. - lisinopril (ZESTRIL) 10 mg tablet take 1 tablet by mouth every day - simvastatin (ZOCOR) 80 mg tablet take 1 tablet by mouth everyday at bedtime - pantoprazole DR (PROTONIX) 40 mg tablet Take 1 tablet by mouth two times a day. Take on empty stomach, 1/2 hr before meal. - fluticasone (FLONASE) 50 mcg/actuation nasal spray Use 2 Sprays in each nostril once daily. Rinse mouth after use. - aspirin, enteric coated (ASPIRIN, ENTERIC COATED) 325 mg EC tablet Take 1 tablet by mouth once daily. - magnesium oxide (MAG-OX) 400 mg (241.3 mg magnesium) tablet Take 1 tablet by mouth once daily. - acetaminophen (TYLENOL) 325 mg tablet Take 2 tablets by mouth every 4 hours as needed. - THERAPEUTIC MULTIVITAMIN TAB Take 1 tablet by mouth once daily. Meds Comments as of 12/26/2018: 12/25/18 The medications are managed by this patient by: SPOUSE Ila Winkler PharmD severe interactions reported to [facility] 12/2607/30/18 The medications are managed by this patient by: PATIENT Elsa Gallagher PharmD Database Programmer: Therapy (PT/OT/Speech/Resp) ID: [id number] 02/18/2024 3:44 PM Author: HERMAN KAUR Signed by HERMAN KAUR PT on 02/18/2024 at 3:44 PM Document text: Program_ID:[id number] Access Code: [email or web address] URL: [email or web address]/ Date: 02-18-2024 Prepared By: Herman Kaur Program Notes Exercises - Supine Lower Trunk Rotation - 3 x daily - 7 x weekly - 2 sets - 10 reps - Hooklying Single Knee to Chest Stretch - 3 x daily - 7 x weekly - sets - 3 reps - Supine Double Knee to Chest Modified - 3 x daily - 7 x weekly - sets - 3 reps - Supine Transversus Abdominis Bracing - Hands on Ground - 3 x daily - 7 x weekly - 2 sets - 10 reps - Curl Up with Arms Crossed - 3 x daily - 7 x weekly - 2 sets - 10 reps ----- Normal [facility] THERAPY NTon 02-18-2024 THERAPY NT HNO ID: [id number] Author: HERMAN KAUR PT Service: ? Author Type: Physical Therapist Type: Therapy (PT/OT/Speech/Resp) Filed: 02/18/2024 15:44 Note Text: Program_ID:[id number] Access Code: [email or web address] URL: [email or web address]/ Date: 02-18-2024 Prepared By: Herman Kaur Program Notes Exercises - Supine Lower Trunk Rotation - 3 x daily - 7 x weekly - 2 sets - 10 reps - Hooklying Single Knee to Chest Stretch - 3 x daily - 7 x weekly - sets - 3 reps - Supine Double Knee to Chest Modified - 3 x daily - 7 x weekly - sets - 3 reps - Supine Transversus Abdominis Bracing - Hands on Ground - 3 x daily - 7 x weekly - 2 sets - 10 reps - Curl Up with Arms Crossed - 3 x daily - 7 x weekly - 2 sets - 10 reps Normal [facility] [id number] 02-14-2024 [id number] HNO ID: [id number] Author: HERMAN KAUR PT Service: ? Author Type: Physical Therapist Type: [id number] Filed: 02/14/2024 17:01 Note Text: [facility] Physical Therapy Plan of Care Certification Patient Name: Jayden Craig : 1940 [facility] #: [id number] Date: 02/14/2024 To: Eloisa Espinal MD From Therapist: Herman Kaur PT RE: Patient Certification/ Recertification Your review, approval and electronic signature are required in order to comply with Payor: MEDICARE / Plan: MEDICARE A AND B / Product Type: Medicare / regulations. The identified Physical Therapy PLAN OF CARE for the patient is as follows: M54.31 Right sided sciatica (primary encounter diagnosis) M54.31 Sciatica, right side PLAN OF CARE: Assessment: Jayden Craig presents with chief complaint of R low back pain with radicular symptoms into R buttock, hip and thigh that interferes with standing, walking (regional liaison). The patient presents with impairments in ADL's, gait, independence in exercise, overall function, posture, range of motion, strength, and symptom management. PROMIS? (Patient-Reported Outcomes Measurement Information System) scores were reviewed and identified as a rehabilitation concern. Prognosis for therapy is Good due to: current objective clinical presentation, acuteness of condition, positive past response to therapy, within-session changes, good support system/ coping skills. The patient will benefit from skilled therapy services to meet the goals established for this plan of care as noted below. Classification Pain Mechanism Classification: Neuropathic Low Back Pain Classification: Symptom Modulation Goals for Episode of Care: established 02/14/24 Patient reported outcome of physical function will increase T-score by a minimum 5 points. Independent in home exercises. Patient will decrease pain to 0/10 with functional activities to allow patient to improve standing tolerance for ADLs. Restore pain-free lumbar ROM to prior functional level to allow for improved tolerance with regional liaison. Stand / Walk without limitation, without pain/symptoms for return to prior functional level. Patient will be able to tolerate functional activities for regional liaison without increased symptoms. Patient will increase strength of core/postural muscles to WFL to allow for improved standing tolerance. Patient Goals: decrease pain and move around normally without pain. Time Frame for Goals and Treatment : 03/27/24 Planned Interventions, Frequency, and Duration: Current Frequency: 2x/week Duration: 6 weeks Total Number of Visits Planned: 12 (Initial scheduling will be for 1x week and therefore 12 visits may not be necessary.) Planned Treatment Interventions: Therapeutic exercise (85023), Neuromuscular re-education (75993), Manual therapy (19385), Therapeutic activities (72474), Self-alf management (76011), Patient/Family/Caregi corazon Education, Gait Training (33869), Body Mechanics Training PLAN FOR NEXT VISIT: Review, correct and progress HEP to tolerance. Continue with postural stretching and strengthening with flexion directional preference. Consider the use of manual lumbar belt traction prn. Patient demonstrates good understanding of plan of care and treatment. The above goals and plan of care were discussed and agreed upon by patient/family. For further details regarding this patient refer to the Physical Therapy electronically documented visit dated 02/14/2024. Provider Attestation I have reviewed the treatment plan for Jayden Balderas Kiara, [facility]# [id number] for the period of 02/14/24 -- 03/27/24, established on 02/14/2024. Signature certifies the need for therapy services. Normal [facility] CNTHERAPYon 02-14-2024 CNTHERAPY OT/PT/Speech Visit (PTWS) JAYDEN CRAIG ([id number]) 1940 M NFR Date Time Provider Department 02/14/24 3:00 PM HERMAN KAUR PTJUVENAL Date Time Provider Department Center 02/14/2024 3:00 PM [id number], BRENT PTWS Blanca Saleh Reason for Visit: PT Eval [747] Physical Therapy [503] Primary Visit Diagnosis:Right sided sciatica [M54.31] Other Visit Diagnosis:Sciatica, right side [M54.31] Allergies As of Date: 02/14/2024 Noted Allergy Reaction LIPITOR (ATORVASTATIN CALCIUM) 02/01/2006 5 - Intolerance Comments: myalgias OMNICEF (CEFDINIR) 2013 6 - Diarrhea ZITHROMAX (AZITHROMYCIN) 02/23/2005 Date Reviewed: 01/12/2024 Reviewed by: Marely Begum MA - Fully Assessed Prescriptions as of 02/14/2024 - tamsulosin (FLOMAX) 0.4 mg TAKE 1 CAPSULE BY MOUTH EVERYDAY AT BEDTIME - levothyroxine (LEVOXYL) 175 mcg tablet Take 1 tablet by mouth once daily. Take on empty stomach. For thyroid. - fluticasone-salmetero l HFA (ADVAIR) 115-21 mcg/actuation inhaler Inhale 2 Puffs as instructed two times a day. Rinse mouth after use. - metoprolol tartrate, short acting, (LOPRESSOR) 25 mg tablet Take 1 tablet by mouth two times a day. - lisinopril (ZESTRIL) 10 mg tablet take 1 tablet by mouth every day - simvastatin (ZOCOR) 80 mg tablet take 1 tablet by mouth everyday at bedtime - pantoprazole DR (PROTONIX) 40 mg tablet Take 1 tablet by mouth two times a day. Take on empty stomach, 1/2 hr before meal. - fluticasone (FLONASE) 50 mcg/actuation nasal spray Use 2 Sprays in each nostril once daily. Rinse mouth after use. - aspirin, enteric coated (ASPIRIN, ENTERIC COATED) 325 mg EC tablet Take 1 tablet by mouth once daily. - magnesium oxide (MAG-OX) 400 mg (241.3 mg magnesium) tablet Take 1 tablet by mouth once daily. - acetaminophen (TYLENOL) 325 mg tablet Take 2 tablets by mouth every 4 hours as needed. - THERAPEUTIC MULTIVITAMIN TAB Take 1 tablet by mouth once daily. Meds Comments as of 12/26/2018: 12/25/18 The medications are managed by this patient by: SPOUSE Ila Winkler PharmD severe interactions reported to [facility] 12/2607/30/18 The medications are managed by this patient by: PATIENT Elsa Gallagher PharmD Database Programmer: Therapy (PT/OT/Speech/Resp) ID: [id number] 02/14/2024 3:38 PM Author: HERMAN KAUR Signed by HERMAN KAUR PT on 02/14/2024 at 3:38 PM Document text: Program_ID:[id number] Access Code: [email or web address] URL: [email or web address]/ Date: 02-14-2024 Prepared By: Herman Kaur Program Notes Exercises - Supine Lower Trunk Rotation - 3 x daily - 7 x weekly - 2 sets - 10 reps - Hooklying Single Knee to Chest Stretch - 3 x daily - 7 x weekly - sets - 3 reps - Supine Double Knee to Chest Modified - 3 x daily - 7 x weekly - sets - 3 reps ----- Normal [facility] THERAPY NTon 02-14-2024 THERAPY NT HNO ID: [id number] Author: HERMAN KAUR PT Service: ? Author Type: Physical Therapist Type: Therapy (PT/OT/Speech/Resp) Filed: 02/14/2024 15:38 Note Text: Program_ID:[id number] Access Code: [email or web address] URL: [email or web address]/ Date: 02-14-2024 Prepared By: Herman Kaur Program Notes Exercises - Supine Lower Trunk Rotation - 3 x daily - 7 x weekly - 2 sets - 10 reps - Hooklying Single Knee to Chest Stretch - 3 x daily - 7 x weekly - sets - 3 reps - Supine Double Knee to Chest Modified - 3 x daily - 7 x weekly - sets - 3 reps Normal [facility] CNOVon 01-12-2024 CNOV Office Visit (FAMPWS ) JAYDEN CRAIG ([id number]) 1940 M NFR Date Time Provider Department 01/12/24 11:00 AM ELOISA ESPINAL FAMPWS During your visit today, we recorded the following information about you: Pulse Respiration Blood pressure Weight 78/minute 18/minute 114/78 81.9 kg Eloisa Espinal MD 01/12/2024 11:58 AM Signed Chief Complaint Patient presents with: Follow Up: Back pain HPI Jayden Craig is a 83 year old male who presents here today for low back pain. Pt here today for a follow up. Pt has been being treated with Prednisone for ongoing back pain. Pt originally slipped and fell off his tractor on 12/05/23. Pt has been having right sided lower back pain, right hip pain with radiation down his right leg and right sided abdominal pain. Pt has been updating office with continued pain/issues and was advised he needs to schedule a f/u visit to be re-evaluated. At this time pt states his pain is not in his abdomen. Pt has been treated with 4 courses of Prednisone due to his ongoing pain. Pt reports right hip pain continues with right sided sciatic down to his knee on the lateral side. He reports when takes the Prednisone this resolves. Once completing Prednisone, about 1-2 days after his pain starts again. Sciatic pain is aggravated by activity. Pain described as numb and tingling. Pain currently a 7/10 as it's aggravated by driving in here. Pain is not always there. Wondering if he needs cortisone shots. Mother had sciatic issues as well. No previous history of sciatica Past medical history, appointments, medications, allergies reviewed. 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 Regina Oswald APPENDECTOMY COLONOSCOPY FLX DX W/COLLJ SPEC WHEN PFRMD 06/28/2004 Colonoscopy COLONOSCOPY FLX DX W/COLLJ SPEC WHEN PFRMD 08/06/2015 Colonoscopy CORONARY ARTERY BYPASS GRAFT HX 07/24/2018 VASQUES in situ mammary end to side mid LAD, Vein graft ascending aorta end to side RCA, Vein graft ascending aorta end to side obtuse marginal 1. EGD N/A 06/29/2020 Dr. Keating EGD 05/31/2021 EGD TRANSORAL BIOPSY SINGLE/MULTIPLE 08/30/2009 EGD TRANSORAL BIOPSY SINGLE/MULTIPLE 08/23/2011 repeat in 2 years ESOPHAGOGASTRODUODENO SCOPY TRANSORAL DIAGNOSTIC 10/06/1998 EGD ESOPHAGOGASTRODUODENO SCOPY TRANSORAL DIAGNOSTIC 01/29/2000 EGD ESOPHAGOGASTRODUODENO SCOPY TRANSORAL DIAGNOSTIC 08/04/2003 EGD ESOPHAGOGASTRODUODENO SCOPY TRANSORAL DIAGNOSTIC 08/29/2007 EGD ESOPHAGOGASTRODUODENO SCOPY TRANSORAL DIAGNOSTIC 08/28/2013 EGD ESOPHAGOGASTRODUODENO SCOPY TRANSORAL DIAGNOSTIC 10/08/2017 EGD HEART SURGERY HX HIATAL HERNIA REPAIR HX 08/24/2022 Laparoscopic paraesophageal hernia repair with gastropexy, Primary repair of ventral hernia, EGD LAPAROSCOPIC CHOLECYSTECTOMY 12/15/2018 PAST SURGICAL HISTORY OF N/A 04/25/2017 [facility] done [facility] [facility], [address] [place] [address] and cleaned up arthritis REPAIR UMBILICAL HERNIA 08/24/2022 Family History FAMILY HISTORY Problem Relation Age of Onset Emphysema Father Emphysema Mother other (no cardiac hx per pt) Other Patient Allergies ALLERGIES Allergen Reactions Lipitor [Atorvastat* Intolerance myalgias Omnicef [Cefdinir] Diarrhea Zithromax [Azithrom* Current Medications Current Outpatient Medications on File Prior to Visit Medication Sig levothyroxine (LEVOXYL) 175 mcg tablet Take 1 tablet by mouth once daily. Take on empty stomach. For thyroid. tamsulosin (FLOMAX) 0.4 mg Take 1 capsule by mouth daily at bedtime. fluticasone-salmetero l HFA (ADVAIR) 115-21 mcg/actuation inhaler Inhale 2 Puffs as instructed two times a day. Rinse mouth after use. metoprolol tartrate, short acting, (LOPRESSOR) 25 mg tablet Take 1 tablet by mouth two times a day. lisinopril (ZESTRIL) 10 mg tablet take 1 tablet by mouth every day simvastatin (ZOCOR) 80 mg tablet take 1 tablet by mouth everyday at bedtime pantoprazole DR (PROTONIX) 40 mg tablet Take 1 tablet by mouth two times a day. Take on empty stomach, 1/2 hr b (more content not included)... Normal [facility] CNPNon 10-08-2023 ANDRIAN Telephone (UROLAE) JAYDEN CRAIG ([id number]) 1940 M NFR Date Time Provider Department 10/08/23 HOANG WRIGHT During your visit today, we recorded the following information about you: Katarina Martin 10/08/2023 9:49 AM Signed Hoang Wright MD [facility] Surgery Scheduling Pool Let's get him in soon Previous Messages ----- Message ----- From: Anya Broderick Sent: 10/05/2023 8:11 PM EDT To: Hoang Wright MD; Marjorie Jay MD Subject: ACTIONABLE IMAGING RESULT Exam: US KIDNEY/BLADDER Date: Oct 02 2023 1:26PM This report on your patient contains a potential actionable imaging result which may need additional follow-up as recommended below. IMPRESSION: 3 cm right lower pole renal lesion is slightly smaller than on the prior study but remains indeterminate. Further characterization with dedicated renal imaging without and with contrast is advised. Resolution of previously shown retroperitoneal hematoma. ACTIONABLE RESULT: FOLLOW-UP Acuity: Actionable Findings: Kidneys/Ureters/Bladd er Routing Code: GU_1 Recommendation: MRI KIDNEY WO/W IVCON Time Frame: 3-6 months PLEASE REVIEW THE FULL REPORT FOR ADDITIONAL FINDINGS. If this patient is no longer or was never in your care, please reply to the Imaging Support Services pool so that we can redirect to the appropriate caregiver. Katarina Martin 10/08/2023 3:57 PM Signed Patient already has an appointment on 10/11/23 10:45 AM Sana. Allergies As of Date: 10/08/2023 Noted Allergy Reaction LIPITOR (ATORVASTATIN CALCIUM) 02/01/2006 5 - Intolerance Comments: myalgias OMNICEF (CEFDINIR) 2013 6 - Diarrhea ZITHROMAX (AZITHROMYCIN) 02/23/2005 Date Reviewed: 08/28/2023 Reviewed by: Ginger Lennon LPN - Fully Assessed Reason for Visit: Appointment [Other] Prescriptions as of 10/08/2023 - tamsulosin (FLOMAX) 0.4 mg Take 1 capsule by mouth daily at bedtime. - fluticasone-salmetero l HFA (ADVAIR) 115-21 mcg/actuation inhaler Inhale 2 Puffs as instructed two times a day. Rinse mouth after use. - metoprolol tartrate, short acting, (LOPRESSOR) 25 mg tablet Take 1 tablet by mouth two times a day. - lisinopril (ZESTRIL) 10 mg tablet take 1 tablet by mouth every day - simvastatin (ZOCOR) 80 mg tablet take 1 tablet by mouth everyday at bedtime - levothyroxine (LEVOXYL) 175 mcg tablet Take 1 tablet by mouth once daily. Take on empty stomach. For thyroid. - pantoprazole DR (PROTONIX) 40 mg tablet Take 1 tablet by mouth two times a day. Take on empty stomach, 1/2 hr before meal. - fluticasone (FLONASE) 50 mcg/actuation nasal spray Use 2 Sprays in each nostril once daily. Rinse mouth after use. - aspirin, enteric coated (ASPIRIN, ENTERIC COATED) 325 mg EC tablet Take 1 tablet by mouth once daily. - magnesium oxide (MAG-OX) 400 mg (241.3 mg magnesium) tablet Take 1 tablet by mouth once daily. - acetaminophen (TYLENOL) 325 mg tablet Take 2 tablets by mouth every 4 hours as needed. - THERAPEUTIC MULTIVITAMIN TAB Take 1 tablet by mouth once daily. 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] 05/30/2007 Esophagitis, unspecified [K20.90] 08/29/2007 10/20/2010 Asthma [J45.909] 07/16/2014 Escobedo's esophagus determined by biopsy [K22.7*08/05/2015 Chronic left-sided low back pain with left-side*12/09/2015 08/18/2021 Overweight (BMI 25.0-29.9) [E66.3] 05/24/2016 Lumbar foraminal stenosis [M48.061] 09/13/2016 Intervertebral disc disorder with radiculopathy* 017 DDD (degenerative disc disease), lumbar [M51.36]09/13/2016 Spondylosis of lumbar region without myelopathy*09/13/2016 Atherosclerotic heart disease of [place] coronar* Pre-op testing [Z01.818] 07/23/2018 09/19/2018 Discharge planning issues [Z75.8] 07/23/2018 Difficult airway for intubation [T88.4XXA] 07/24/2018 07/29/2018 Pain, postoperative, acute [G89.18] 07/24/2018 Atelectasis [J98.11] 07/24/2018 07/26/2018 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/2018 Postoperative hypotension [I95.81] 07/24/2018 07/25/2018 Coagulopathy (HCC) [D68.9] 07/24/2018 07/25/2018 Hypovolemia [E86.1] 07/24/2018 07/25/2018 Esophageal stricture [K22.2] 07/24/2018 Transition of care performed with sharing of cl*07/26/2018 09/19/2018 Gastroesophageal reflux disease with esophagi (more content not included)... Normal [facility] UA DIP, URINE (POC)on 2023 BILIRUBIN UA (POCT) Negative Negative [facility] CLARITY UA (POCT) Clear [facility] COLOR UA (POCT) Yellow [facility] GLUCOSE UA (POCT) Negative Negative mg/dL [facility] Hemoglobin Ql (U) Trace-intact Abnormal Negative [facility] Interpretation and review of laboratory results Abnormal [facility] KETONE UA (POCT) Negative Negative mg/dL [facility] LEUKOCYTES UA (POCT) Negative Negative [facility] NITRITE UA (POCT) Negative Negative [facility] PH UA (POCT) 6.0 4.5 - 8.0 [facility] Protein Ql (U) Trace Abnormal Negative mg/dL [facility] SPECIFIC GRAVITY UA (POCT) 1.025 1.005 - 1.030 [facility] UROBILINOGEN UA (POCT) 0.2 Shawanda l E.U./dL [facility] Location:[facility], [address] [facility] [address] [facility], [place], [place], [id number] [place] [address] POINT OF CARE [facility] Basic metabolic 2000 panelon 07-05-2023 Anion gap [Moles/Vol] 12 mmol/L Normal 9-18 [facility] Comment on above: Order Comment: Speci men Type: BLOOD SPECIMENOrdering Facility: [facility] Address: [address] [place] [address] Performed By: #### 2 4321-2, , 2776-02 ####[facility]ATORYCLIA [id number] [place] [address] [place] Calcium [Mass/Vol] 8.4 mg/dL Low 8.5-10.2 [facility] Comment on above: Order Comment: Speci men Type: BLOOD SPECIMENOrdering Facility: [facility] Address: [address] [place] [address] Performed By: #### 2 4321-2, , 2776-02 ####[facility] LABORATORYCLIA [id number] [place] [address] [place] Chloride [Moles/Vol] 93 mmol/L Low 97-105 [facility] Comment on above: Order Comment: Speci men Type: BLOOD SPECIMENOrdering Facility: [facility] Address: [address] [place] [address] Performed By: #### 2 4321-2, , 2776-02 ####[facility]ATORYCLIA [id number] [place] [address] [place] CO2 [Moles/Vol] 21 mmol/L Low 22-30 [facility] Comment on above: Order Comment: Speci men Type: BLOOD SPECIMENOrdering Facility: [facility] Address: [address] [place] [address] Performed By: #### 2 4321-2, , 2776-02 ####[facility]ORYCLIA [id number] [place] [address] [place] Creatinine [Mass/Vol] 0.65 mg/dL Low 0.73-1.22 [facility] Comment on above: Order Comment: Speci men Type: BLOOD SPECIMENOrdering Facility: [facility] Address: [address] [place] [address] Performed By: #### 2 4321-2, , 2776-02 ####[facility]ATORYCLIA [id number] [address] Creatinine and Glomerular filtration rate.predicted panel (S/P/Bld) 95 mL/min/1.73m??? Normal >=60 [facility] Comment on above: Order Comment: Speci men Type: BLOOD SPECIMENOrdering Facility: [facility] Address: [address] [place] [address] Result Comment: Kimberlyn mated Glomerular Filtration Rate (eGFR) is calculated using the 2020 CKD-EPI creatinine equation. This equation utilizes serum creatinine, sex, and age as parameters. The creatinine assay has traceable calibration to isotope dilution-mass spectrometry. Refer to KDIGO guidelines for clinical interpretation. In patients with unstable renal function, e.g. those with acute kidney injury, the eGFR may not accurately reflect actual GFR. Performed By: #### 2 4321-2, , 2776-02 ####[facility]ATORYCLIA [id number] [place] [id number] [place] Glucose [Mass/Vol] 112 mg/dL High 74-99 [facility] Comment on above: Order Comment: Speci men Type: BLOOD SPECIMENOrdering Facility: [facility] Address: [address] [place] [address] Result Comment: The [place] Diabetes Association (ADA) provides guidance for cutoff values for fasting glucose and random glucose. The ADA defines fasting as no caloric intake for at least 8 hours. Fasting plasma glucose results between 100 to 125 mg/dL indicate increased risk for diabetes (prediabetes). Fasting plasma glucose results greater than or equal to 126 mg/dL meet the criteria for diagnosis of diabetes. In the absence of unequivocal hyperglycemia, results should be confirmed by repeat testing. In a patient with classic symptoms of hyperglycemia or hyperglycemic crisis, random plasma glucose results greater than or equal to 200 mg/dL meet the criteria for diagnosis of diabetes. Reference: Standards of Medical Care in Diabetes 2016, [employer] Diabetes Association. Diabetes Care. 2016.39(Suppl 1). Performed By: #### 2 4321-2, , 2776-02 ####[facility]ATORYCLIA [id number] [place] [address] [place] Potassium [Moles/Vol] 3.7 mmol/L Normal 3.7-5.1 [facility] Comment on above: Order Comment: Boweni men Type: BLOOD SPECIMENOrdering Facility: [facility] Address: [address] [place] [address] Performed By: #### 2 4321-2, , 2776-02 ####[facility]ATORYCLIA [id number] [place] [address] [place] Sodium [Moles/Vol] 126 mmol/L Low 136-144 [facility] Comment on above: Order Comment: Boweni men Type: BLOOD SPECIMENOrdering Facility: [facility] Address: [address] [place] [address] Performed By: #### 2 4321-2, , 2776-02 ####[facility]ATORYCLIA [id number] [place] [address] [place] Urea nitrogen [Mass/Vol] 8 mg/dL Low 9-24 [facility] Comment on above: Order Comment: Boweni men Type: BLOOD SPECIMENOrdering Facility: [facility] Address: [address] [place] [address] Performed By: #### 2 4321-2, , 2777-1 ####[facility]ATORYCLIA [id number] [place] [address] [place] CBC W Auto Differential pane l (Bld)on 07-05-2023 Anisocytosis Ql (Bld) Present Normal [facility] Comment on above: Order Comment: Speci men Type: BLOOD SPECIMENOrdering Facility: [facility] Address: [address] [place] [address] Performed By: #### 5 7021-8 ####[facility]ATORYCLIA [id number] [address] Basophils (Bld) [#/Vol] 0.09 10*3/uL Normal <0.11 [facility] Comment on above: Order Comment: Speci men Type: BLOOD SPECIMENOrdering Facility: [facility] Address: [address] [place] [address] Performed By: #### 5 7021-8 ####[facility]ATORYCLIA [id number] [address] Basophils/100 WBC (Bld) 1.0 % Normal [facility] Comment on above: Order Comment: Speci men Type: BLOOD SPECIMENOrdering Facility: [facility] Address: [address] [place] [address] Performed By: #### 5 7021-8 ####[facility]ATORYCLIA [id number] [address] Differential cell count method Nom (Bld) Manual Normal [facility] Comment on above: Order Comment: Speci men Type: BLOOD SPECIMENOrdering Facility: [facility] Address: [address] [place] [address] Performed By: #### 5 7021-8 ####[facility]ATORYCLIA [id number] [address] [place] Eosinophils (Bld) [#/Vol] 0.18 10*3/uL Normal <0.46 [facility] Comment on above: Order Comment: Speci men Type: BLOOD SPECIMENOrdering Facility: [facility] Address: [address] [place] [address] Performed By: #### 5 7021-8 ####[facility]ATORYCLIA [id number] [address] [place] Eosinophils/100 WBC (Bld) 2.0 % Normal [facility] Comment on above: Order Comment: Speci men Type: BLOOD SPECIMENOrdering Facility: [facility] Address: [address] [place] [address] Performed By: #### 5 7021-8 ####[facility]ATORYCLIA [id number] [address] [place] Erythrocyte distribution width (RBC) [Ratio] 14.6 % Normal 11.5-15.0 [facility] Comment on above: Order Comment: Speci men Type: BLOOD SPECIMENOrdering Facility: [facility] Address: [address] [place] [address] Performed By: #### 5 7021-8 ####[facility]ATORYCLIA [id number] [address] [place] Hematocrit (Bld) [Volume fraction] 28.9 % Low 39.0-51.0 [facility] Comment on above: Order Comment: Speci men Type: BLOOD SPECIMENOrdering Facility: [facility] Address: [address] [place] [address] Performed By: #### 5 7021-8 ####[facility]ORYCLIA [id number] [address] [place] Hemoglobin (Bld) [Mass/Vol] 9.7 g/dL Low 13.0-17.0 [facility] Comment on above: Order Comment: Speci men Type: BLOOD SPECIMENOrdering Facility: [facility] Address: [address] [place] [address] Performed By: #### 5 7021-8 ####[facility]ATORYCLIA [id number] [address] [place] Lymphocytes (Bld) [#/Vol] 0.18 10*3/uL Low 1.00-4.00 [facility] Comment on above: Order Comment: Speci men Type: BLOOD SPECIMENOrdering Facility: [facility] Address: [address] [place] [address] Performed By: #### 5 7021-8 ####[facility]ORYCLIA [id number] [address] Lymphocytes/100 WBC (Bld) 2.0 % Normal [facility] Comment on above: Order Comment: Speci men Type: BLOOD SPECIMENOrdering Facility: [facility] Address: [address] [place] [address] Performed By: #### 5 7021-8 ####[facility]ATORYCLIA [id number] [address] STATES [facility] MCH (RBC) [Entitic mass] 29.5 pg Normal 26.0-34.0 [facility] Comment on above: Order Comment: Speci men Type: BLOOD SPECIMENOrdering Facility: [facility] Address: [address] [place] [address] Performed By: #### 5 7021-8 ####[facility]ATORYCLIA [id number] [address] MCHC (RBC) [Mass/Vol] 33.6 g/dL Normal 30.5-36.0 [facility] Comment on above: Order Comment: Speci men Type: BLOOD SPECIMENOrdering Facility: [facility] Address: [address] [place] [address] Performed By: #### 5 7021-8 ####[facility]ATORYCLIA [id number] [address] [place] MCV (RBC) [Entitic vol] 87.8 fL Normal 80.0-100.0 [facility] Comment on above: Order Comment: Speci men Type: BLOOD SPECIMENOrdering Facility: [facility] Address: [address] [place] [address] Performed By: #### 5 7021-8 ####[facility]ATORYCLIA [id number] [place] [address] [place] Monocytes (Bld) [#/Vol] 1.81 10*3/uL High <0.87 [facility] Comment on above: Order Comment: Speci men Type: BLOOD SPECIMENOrdering Facility: [facility] Address: [address] [place] [address] Performed By: #### 5 7021-8 ####[facility]ATORYCLIA [id number] [place] [address] [place] Monocytes/100 WBC (Bld) 20.0 % Normal [facility] Comment on above: Order Comment: Speci men Type: BLOOD SPECIMENOrdering Facility: [facility] Address: [address] [place] [address] Performed By: #### 5 7021-8 ####[facility]ORYCLIA [id number] [place] [address] [place] Neutrophils (Bld) [#/Vol] 6.80 10*3/uL Normal 1.45-7.50 [facility] Comment on above: Order Comment: Speci men Type: BLOOD SPECIMENOrdering Facility: [facility] Address: [address] [place] [address] Performed By: #### 5 7021-8 ####[facility]ORYCLIA [id number] [address] [place] Neutrophils/100 WBC (Bld) 75.0 % Normal [facility] Comment on above: Order Comment: Speci men Type: BLOOD SPECIMENOrdering Facility: [facility] Address: [address] [place] [address] Performed By: #### 5 7021-8 ####[facility]ORYCLIA [id number] [place] [address] [place] Nucleated RBC (Bld) [#/Vol] 10*3/uL Normal <0.01 [facility] Comment on above: Order Comment: Speci men Type: BLOOD SPECIMENOrdering Facility: [facility] Address: [facility] [place] [address] Performed By: #### 5 7021-8 ####[facility]ATORYCLIA [id number] [address] [place] Nucleated RBC/100 WBC (Bld) [Ratio] 0.0 /100 WBC Normal [facility] Comment on above: Order Comment: Speci men Type: BLOOD SPECIMENOrdering Facility: [facility] Address: [address] [place] [address] Performed By: #### 5 7021-8 ####[facility]ATORYCLIA [id number] [place] [address] [place] Platelet mean volume (Bld) [Entitic vol] 10.7 fL Normal 9.0-12.7 [facility] Comment on above: Order Comment: Speci men Type: BLOOD SPECIMENOrdering Facility: [facility] Address: [address] [place] [address] Performed By: #### 5 7021-8 ####[facility]ORYCLIA [id number] [address] [place] Platelets (Bld) [#/Vol] 193 10*3/uL Normal 150-400 [facility] Comment on above: Order Comment: Speci men Type: BLOOD SPECIMENOrdering Facility: [facility] Address: [address] [place] [address] Performed By: #### 5 7021-8 ####[facility]ORYCLIA [id number] [address] [place] Platelets Estimate (Bld) [#/Vol] Adequate Normal [facility] Comment on above: Order Comment: Speci men Type: BLOOD SPECIMENOrdering Facility: [facility] Address: [address] [place] [address] Performed By: #### 5 7021-8 ####[facility]ORYCLIA [id number] [address] [place] Polychromasia LM Ql (Bld) Slight Normal [facility] Comment on above: Order Comment: Speci men Type: BLOOD SPECIMENOrdering Facility: [facility] Address: [address] [place] [address] Performed By: #### 5 7021-8 ####[facility]ATORYCLIA [id number] [address] RBC (Bld) [#/Vol] 3.29 10*6/uL Low 4.20-6.00 [facility] Comment on above: Order Comment: Speci men Type: BLOOD SPECIMENOrdering Facility: [facility] Address: [address] [place] [address] Performed By: #### 5 7021-8 ####[facility]ATORYCLIA [id number] [address] RBC FRAGMENTS Few Abnormal None Seen [facility] Comment on above: Order Comment: Speci men Type: BLOOD SPECIMENOrdering Facility: [facility] Address: [address] [place] [address] Performed By: #### 5 7021-8 ####[facility]ATORYCLIA [id number] [address] RED CELL MORPH Reviewed: see result s of individual morphologies Normal [facility] Comment on above: Order Comment: Speci men Type: BLOOD SPECIMENOrdering Facility: [facility] Address: [address] [place] [address] Performed By: #### 5 7021-8 ####[facility]ORYCLIA [id number] [address] SPHEROCYTES Few Normal [facility] Comment on above: Order Comment: Speci men Type: BLOOD SPECIMENOrdering Facility: [facility] Address: [address] [place] [address] Performed By: #### 5 7021-8 ####[facility]ATORYCLIA [id number] [address] WBC (Bld) [#/Vol] 9.06 10*3/uL Normal 3.70-11.00 [facility] Comment on above: Order Comment: Speci men Type: BLOOD SPECIMENOrdering Facility: [facility] Address: [address] [place] [address] Performed By: #### 5 7021-8 ####[facility]ATORYCLIA [id number] [place] [address] [facility] CNDSon 07-05-2023 CNDS HNO ID: [id number] Author: SUNNY FELICIANO MD Service: Hospital Medicine Author Type: Physician Type: Discharge Summary Filed: 07/05/2023 17:52 Note Text: DISCHARGE SUMMARY PATIENT NAME: Jayden Craig ADMISSION DATE: 07/01/2023 DISCHARGE DATE: 07/05/2023 ATTENDING PHYSICIAN: Sunny Feliciano MD Code Status: Full Code Highest Readmission Risk Score: 20 The 30 day readmissions risk score is derived from an internally validated risk model which evaluates patient level characteristics, utilization history, medication orders and lab results up until the day of discharge. Patients with a score of 40 or above are considered highest risk for readmission. Specific patient level drivers will be listed at the bottom of the summary. CONSULTING TEAMS DURING HOSPITALIZATION: urology,nephrology Treatment Team: Attending Provider: Sunny Feliciano MD Consulting: Paul Valenzuela MD Primary Service: EITAN OLIVEIRA Consulting: Rodolfo Barajas MD Attending: Sunny Feliciano MD Attending: EITAN OLIVEIRA REASON FOR HOSPITALIZATION: s/p fall DIAGNOSIS: Syncopal episode at home Abdominal pain Concern for acute right retroperitoneal hematoma Concern for sepsis Right renal mass versus cyst Hyponatremia Acute on chronic anemia Hx CAD s/p CABG Hypothyroidism Hypertension HOSPITAL COURSE: This is an 82-year-old male, with PMH as follows: HTN, HLD, hypothyroidism, CAD s/p CABG. The patient presented to the ER, with a complaint of abdominal pain. It seems that he was walking to the bathroom, on Sunday, and had a fall. Subsequently, he started to have abdominal pain. He was admitted with concern for sepsis, with unclear etiology as well as concern for right retroperitoneal hematoma. Regarding his retroperitoneal hematoma and a large right renal mass, the patient was evaluated by urology. This was managed conservatively. His HANDH remained stable during hospital stay. There was no evidence of active extravasation. Notably, the patient was also found to have hyponatremia, with sodium level that dropped as low as 121 during this admission. Notably, he had no neurological symptoms due to this. He was evaluated by nephrology. At the time of discharge, his sodium level has corrected to 126. Per nephrology, he was given salt tablets. In addition, he will be prescribed salt tablets at the time of discharge. There was also concern for possible sepsis, as the patient did have an episode of fever during hospital stay. Cultures remained negative. while in-house, the patient was placed on IV antibiotics with Zosyn. At the time of discharge, this would be de-escalated to oral cefdinir. In addition, there was a cardiac echocardiogram that was ordered, to workup the patient for this episode of sudden fall that he had at home. However, the patient would prefer to do this on an outpatient basis. Recent cardiac echocardiogram dated August 2022 was reviewed. At this time, I would be comfortable with the patient following with his PCP to obtain cardiac echocardiogram and possibly carotid Doppler for further workup of syncopal episode that he had at home last Sunday. Physical Exam Performed General: Patient laying in bed, in no acute distress HEENT: Head atraumatic, PEERLA, no icterus. Cardiovascular: S1-S2 normal, no murmurs distinguished Chest: Bilateral air entry equal, normal breath sounds in all lung meneses Abdomen: Soft, nontender, bowel sounds normal Neuro: alert, no deficits on gross motor exam Extremities: no edema Transitions of Care Critical Issues: INCIDENTAL OR ACTIONABLE FINDING (Last Refresh: 07/05/2023 5:47 PM) Test(s): CTA ABD/PEL WO/W IVCON PATIENT CONDITION AT DISCHARGE: Stable DISCHARGE DISPOSITION: Home DIET: Resume pre-hospital diet ACTIVITY: Resume pre-hospital activity ALLERGIES Allergen Reactions Lipitor [Atorvastat* Intolerance myalgias Omnicef [Cefdinir] Diarrhea Zithromax [Azithrom* DISCHARGE MEDICATION: Medication List START taking these medications cefdinir 300 mg capsule Commonly known as: OMNICEF Take 1 capsule by mouth two times a day for 7 days. phosphorus 250 mg tablet Commonly known as: K PHOS NEUTRAL Take 1 tablet by mouth three times a day. sodium chloride 1 g soluble tablet Take 1 tablet by mouth once daily. CONTINUE taking these medications acetaminophen 325 mg tablet Commonly known as: TYLENOL Take 2 tablets by mouth every 4 hours as needed. aspirin, enteric coated 325 mg EC tablet Commonly known as: ASPIRIN, ENTERIC COATED Take 1 tablet by mouth once daily. fluticasone 50 mcg/actuation nasal spray Commonly known as: FLONASE Use 2 Sprays in each nostril once daily. Rinse mouth after use. fluticasone-salmetero l HFA 115-21 mcg/actuation inhaler Commonly known as: ADVAIR INHALE 2 PUFFS INSTRUCTED TWICE DAILY. RINSE MOUTH AFTER USE. levothyroxine 175 mcg tablet Commonly kno (more content not included)... Normal [facility] Magnesium SerPl-mCncon 07-04 Magnesium [Mass/Vol] 1.9 mg/dL Normal 1.7-2.3 [facility] Comment on above: Order Comment: Speci men Type: BLOOD SPECIMENOrdering Facility: [facility] Address: [address] [place] [address] Performed By: #### 2 4321-2, , 2776- ####[facility]CLIA [id number] [place] [address] [place] Phosphate SerPl-ncon 07-04 Phosphate [Mass/Vol] 2.4 mg/dL Low 2.7-4.8 [facility] Comment on above: Order Comment: Speci men Type: BLOOD SPECIMENOrdering Facility: [facility] Address: [address] [place] [address] Performed By: #### 2 4321-2, , 2776-02 ####[facility]ORYCLIA [id number] [place] [address] [place] Bacteria Ur Culton 4 Bacteria identified Cx Nom (U) CULTURE, URINE: No growth (<1,000 CFU/ml) Normal [facility] Comment on above: Performed By: #### 6 30-4 ####[facility]ORYCLIA [id number] [place] [address] [place] Basic metabolic 2000 panelon 07-04-2023 Anion gap [Moles/Vol] 12 mmol/L Normal 9-18 [facility] Comment on above: Order Comment: Speci men Type: BLOOD SPECIMENOrdering Facility: [facility] Address: [address] [place] [id number] Performed By: #### 2 692-2, 63382-5, 3 ####[facility]ORYCLIA [id number] [place] [address] [place] Calcium [Mass/Vol] 8.0 mg/dL Low 8.5-10.2 [facility] Comment on above: Order Comment: Speci men Type: BLOOD SPECIMENOrdering Facility: [facility] Address: [address] [place] [address] Performed By: #### 2 692-2, 80109-2, 3 ####[facility]ORYCLIA [id number] [place] [address] [place] Chloride [Moles/Vol] 93 mmol/L Low 97-105 [facility] Comment on above: Order Comment: Speci men Type: BLOOD SPECIMENOrdering Facility: [facility] Address: [address] [place] [address] Performed By: #### 2 692-2, 53463-3, 3 ####[facility]ORYCLIA [id number] [place] [address] [place] CO2 [Moles/Vol] 22 mmol/L Normal 22-30 [facility] Comment on above: Order Comment: Speci men Type: BLOOD SPECIMENOrdering Facility: [facility] Address: [address] [place] [address] Performed By: #### 2 692-2, 66777-3, 3 ####[facility]ORYCLIA [id number] [place] [address] [place] Creatinine [Mass/Vol] 0.62 mg/dL Low 0.73-1.22 [facility] Comment on above: Order Comment: Speci men Type: BLOOD SPECIMENOrdering Facility: [facility] Address: [address] [place] [address] Performed By: #### 2 692-2, 10606-9, 3015-3 ####[facility]ORYCLIA [id number] [place] [address] [place] Creatinine and Glomerular filtration rate.predicted panel (S/P/Bld) 97 mL/min/1.73m??? Normal >=60 [facility] Comment on above: Order Comment: Bowenvishal byrd Type: BLOOD SPECIMENOrdering Facility: [facility] Address: [address] [place] [address] Result Comment: Kimberlyn mated Glomerular Filtration Rate (eGFR) is calculated using the 2020 CKD-EPI creatinine equation. This equation utilizes serum creatinine, sex, and age as parameters. The creatinine assay has traceable calibration to isotope dilution-mass spectrometry. Refer to KDIGO guidelines for clinical interpretation. In patients with unstable renal function, e.g. those with acute kidney injury, the eGFR may not accurately reflect actual GFR. Performed By: #### 2 692-2, 22254-3, 6-3 ####[facility]ORYCLIA [id number] [place] [address] [place] Glucose [Mass/Vol] 138 mg/dL High 74-99 [facility] Comment on above: Order Comment: Yogi byrd Type: BLOOD SPECIMENOrdering Facility: [facility] Address: [address] [place] [address] Result Comment: The [place] Diabetes Association (ADA) provides guidance for cutoff values for fasting glucose and random glucose. The ADA defines fasting as no caloric intake for at least 8 hours. Fasting plasma glucose results between 100 to 125 mg/dL indicate increased risk for diabetes (prediabetes). Fasting plasma glucose results greater than or equal to 126 mg/dL meet the criteria for diagnosis of diabetes. In the absence of unequivocal hyperglycemia, results should be confirmed by repeat testing. In a patient with classic symptoms of hyperglycemia or hyperglycemic crisis, random plasma glucose results greater than or equal to 200 mg/dL meet the criteria for diagnosis of diabetes. Reference: Standards of Medical Care in Diabetes 2016, [employer] Diabetes Association. Diabetes Care. 2016.39(Suppl 1). Performed By: #### 2 692-2, 79206-5, 6-3 ####[facility]ORYCLIA [id number] [place] [id number] [place] Potassium [Moles/Vol] 3.9 mmol/L Normal 3.7-5.1 [facility] Comment on above: Order Comment: Speci men Type: BLOOD SPECIMENOrdering Facility: [facility] Address: [address] [place] [address] Performed By: #### 2 692-2, 40948-2, 3015-3 ####[facility]ORYCLIA [id number] [place] [address] [place] Sodium [Moles/Vol] 127 mmol/L Low 136-144 [facility] Comment on above: Order Comment: Speci men Type: BLOOD SPECIMENOrdering Facility: [facility] Address: [address] [place] [address] Performed By: #### 2 692-2, 60101-5, 3 ####[facility]ORYCLIA [id number] [place] [address] [place] Urea nitrogen [Mass/Vol] 9 mg/dL Normal 9-24 [facility] Comment on above: Order Comment: Speci men Type: BLOOD SPECIMENOrdering Facility: [facility] Address: [address] [place] [address] Performed By: #### 2 692-2, 67854-8, 3 ####[facility]ORYCLIA [id number] [place] [address] [place] Anion gap [Moles/Vol] 11 mmol/L Normal 9-18 [facility] Comment on above: Order Comment: Speci men Type: BLOOD SPECIMENOrdering Facility: [facility] Address: [address] [place] [address] Performed By: #### 2 4321-2, 10369-2, 2777-1, 77850-6 ####[facility]ORYCLIA [id number] [place] [address] [place] Calcium [Mass/Vol] 8.5 mg/dL Normal 8.5-10.2 [facility] Comment on above: Order Comment: Speci men Type: BLOOD SPECIMENOrdering Facility: [facility] Address: [address] [place], [place] [address] Performed By: #### 2 4321-2, 56842-0, 2777-1, 72711-3 ####[facility]ORYCLIA [id number] [place] [address] [place] Chloride [Moles/Vol] 89 mmol/L Low 97-105 [facility] Comment on above: Order Comment: Speci men Type: BLOOD SPECIMENOrdering Facility: [facility] Address: [address] [place] [address] Performed By: #### 2 4321-2, 38456-3, 2776-1, 94759-8 ####[facility]ORYCLIA [id number] [address] [place] CO2 [Moles/Vol] 21 mmol/L Low 22-30 [facility] Comment on above: Order Comment: Speci men Type: BLOOD SPECIMENOrdering Facility: [facility] Address: [address] [place] [address] Performed By: #### 2 4321-2, 49191-0, 2776-1, 18111-0 ####[facility]CLIA [id number] [address] [place] Creatinine [Mass/Vol] 0.71 mg/dL Low 0.73-1.22 [facility] Comment on above: Order Comment: Speci men Type: BLOOD SPECIMENOrdering Facility: [facility] Address: [address] [place] [address] Performed By: #### 2 4321-2, 14044-6, 2776-1, 31779-7 ####[facility]ORYCLIA [id number] [address] Creatinine and Glomerular filtration rate.predicted panel (S/P/Bld) 93 mL/min/1.73m??? Normal >=60 [facility] Comment on above: Order Comment: Speci men Type: BLOOD SPECIMENOrdering Facility: [facility] Address: [address] [place] [address] Result Comment: Kimberlyn mated Glomerular Filtration Rate (eGFR) is calculated using the 2020 CKD-EPI creatinine equation. This equation utilizes serum creatinine, sex, and age as parameters. The creatinine assay has traceable calibration to isotope dilution-mass spectrometry. Refer to KDIGO guidelines for clinical interpretation. In patients with unstable renal function, e.g. those with acute kidney injury, the eGFR may not accurately reflect actual GFR. Performed By: #### 2 4321-2, 39693-3, 2776-, 05659-9 ####[facility]ORYCLIA [id number] [place] [id number] [place] Glucose [Mass/Vol] 120 mg/dL High 74-99 [facility] Comment on above: Order Comment: Yogi byrd Type: BLOOD SPECIMENOrdering Facility: [facility] Address: [address] [place] [address] Result Comment: The [place] Diabetes Association (ADA) provides guidance for cutoff values for fasting glucose and random glucose. The ADA defines fasting as no caloric intake for at least 8 hours. Fasting plasma glucose results between 100 to 125 mg/dL indicate increased risk for diabetes (prediabetes). Fasting plasma glucose results greater than or equal to 126 mg/dL meet the criteria for diagnosis of diabetes. In the absence of unequivocal hyperglycemia, results should be confirmed by repeat testing. In a patient with classic symptoms of hyperglycemia or hyperglycemic crisis, random plasma glucose results greater than or equal to 200 mg/dL meet the criteria for diagnosis of diabetes. Reference: Standards of Medical Care in Diabetes 2016, [employer] Diabetes Association. Diabetes Care. 2016.39(Suppl 1). Performed By: #### 2 4321-2, , 2776-02, 24432-7 ####[facility]ORYCLIA [id number] [place] [id number] [place] Potassium [Moles/Vol] 3.7 mmol/L Normal 3.7-5.1 [facility] Comment on above: Order Comment: Yogi byrd Type: BLOOD SPECIMENOrdering Facility: [facility] Address: [address] [place] [address] Performed By: #### 2 4321-2, 53755-8, 2776-02, 70454-8 ####[facility]ATORYCLIA [id number] [place] [address] [facility] Sodium [Moles/Vol] 121 mmol/L Low 136-144 [facility] Comment on above: Order Comment: Yogi byrd Type: BLOOD SPECIMENOrdering Facility: [facility] Address: [address] [place], [place] [address] Performed By: #### 2 4321-2, 31704-1, 2777-1, 65096-7 ####[facility]ORYCLIA [id number] [place] [id number] [facility] Urea nitrogen [Mass/Vol] 10 mg/dL Normal 9-24 [facility] Comment on above: Order Comment: Yogi byrd Type: BLOOD SPECIMENOrdering Facility: [facility] Address: [address] [place] [address] Performed By: #### 2 4321-2, 37127-1, 2777-1, 53700-4 ####[facility]ORYCLIA [id number] [place] [id number] [facility] CONSULTon 07-04-2023 CONSULT HNO ID: [id number] Author: ISATU DU MD Service: Nephrology Author Type: Nurse Practitioner Type: Consults Filed: 07/04/2023 21:21 Note Text: Attestation signed by Isatu Du MD at 07/04/2023 9:21 PM Attending Note I have personally performed a face to face assessment of the patient and have reviewed the YONATHAN note. I performed a substantive portion of the visit including all aspects of the following. Hyponatremia. Prior to this morning, sodium was around 1 27-1 29. Sodium dropped to 121 this morning. Repeat sodium this afternoon is better, around 127. I am not sure if today's morning sodium was lab error. Since we have confirmed sodium values around 127 Until yesterday and now repeat is close to that, no further interventions needed. Signature: Isatu Du MD Date: 07/04/2023 Time: 9:19 PM [facility] [address] [place], [place] [id number] Consult Note Patient's Name: Jayden Craig 2:16 PM 07/04/2023 ATTENDING/ADMITTING PHYSICIAN:Sunny Feliciano MD Reason for consultation: Hyponatremia History of Present Ilness: Jayden Craig is a 82 year old male with Hypothyroidism, CABG, Hyperlipidemia, PUD, Escobedo's Esophagus, HTN. Presented to [facility] on 07/01/2023 with complaints of syncopal episodes. Patient was a transfer from the [place] ED to [facility] ED for acute retroperitoneal hematoma. Hospital course complicated with hyponatremia. Nephrology is consulted for hyponatremia. Patient was seen and assessed at bedside sitting up on recliner denies SOLIS or confusion, asking about DC, explained to patient why it is not avisable for DC today, he agreed. No CP or SOB, no N/V/D, no fever or chills. Patient reports that he does have low Sna in the 130's. Not on salt tab, he does not know why he had low Sna level. 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 CAD (coronary artery disease) Constipation Essential hypertension Fatigue, unspecified type H/O ventral hernia repair 04/03/2023 Hiatal hernia 1989 History of coronary artery bypass graft 07/24/2018 VASQUES in situ mammary end to side mid LAD, Vein graft ascending aorta end to side RCA, Vein graft ascending aorta end to side obtuse marginal 1 Hyperlipidemia Peptic ulcer, unspecified site, unspecified as acute or chronic, without mention of hemorrhage, perforation, or obstruction 2004 Unspecified hypothyroidism 1989 PAST SURGICAL HISTORY Procedure Laterality Date ANES HRNA RPR UPR ABD LMBRANDVENTRAL HERNIAANDDEHISC 04/03/[address] Regina Oswald APPENDECTOMY COLONOSCOPY FLX DX W/COLLJ SPEC WHEN PFRMD 06/28/2004 Colonoscopy COLONOSCOPY FLX DX W/COLLJ SPEC WHEN PFRMD 08/06/2015 Colonoscopy CORONARY ARTERY BYPASS GRAFT HX 07/24/2018 VASQUES in situ mammary end to side mid LAD, Vein graft ascending aorta end to side RCA, Vein graft ascending aorta end to side obtuse marginal 1. EGD N/A 06/29/2020 Dr. Keating EGD 05/31/2021 EGD TRANSORAL BIOPSY SINGLE/MULTIPLE 08/30/2009 EGD TRANSORAL BIOPSY SINGLE/MULTIPLE 08/23/2011 repeat in 2 years ESOPHAGOGASTRODUODENO SCOPY TRANSORAL DIAGNOSTIC 10/06/1998 EGD ESOPHAGOGASTRODUODENO SCOPY TRANSORAL DIAGNOSTIC 01/29/2000 EGD ESOPHAGOGASTRODUODENO SCOPY TRANSORAL DIAGNOSTIC 08/04/2003 EGD ESOPHAGOGASTRODUODENO SCOPY TRANSORAL DIAGNOSTIC 08/29/2007 EGD ESOPHAGOGASTRODUODENO SCOPY TRANSORAL DIAGNOSTIC 08/28/2013 EGD ESOPHAGOGASTRODUODENO SCOPY TRANSORAL DIAGNOSTIC 10/08/2017 EGD HEART SURGERY HX HIATAL HERNIA REPAIR HX 08/24/2022 Laparoscopic paraesophageal hernia repair with gastropexy, Primary repair of ventral hernia, EGD LAPAROSCOPIC CHOLECYSTECTOMY 12/15/2018 PAST SURGICAL HISTORY OF N/A 04/25/2017 Back surgery done at [address] and cleaned up arthritis REPAIR UMBILICAL HERNIA 08/24/2022 FAMILY HISTORY Problem Relation Age of Onset Emphysema Father Emphysema Mother other (no cardiac hx per pt) Other reports that he quit smoking about 42 years ago. His smoking use included cigarettes. He has a 13.5 pack-year smoking history. He has never used smokeless tobacco. He reports that he does not currently use alcohol. He reports that he does not use drugs. Allergies: Lipitor [Atorvastatin Calcium], Omnicef [Cefdinir], and Zithromax [Azithromycin] Current Medications: Current Facility-Administered Medications Medication Dose Route Frequency mupirocin 2 % 0.5 g nasal ointment (BACTROBAN) 0.5 g NASAL BID tamsulosin 0.4 mg cap(s) (FLOMAX) 0.4 mg ORAL AT BEDTIME NaCl 0.9% iv flush bag 20 mL INTRAVENOUS PRN piperacillin-tazobact am iv piggyback 3.375 g in dextrose (is (more content not included)... Normal [facility] Hematocrit Auto (Bld) [Volum e fraction]on 07-04-2023 Hematocrit (Bld) [Volume fraction] 26.3 % Low 39.0-51.0 [facility] Comment on above: Order Comment: Speci men Type: BLOOD SPECIMENOrdering Facility: [facility] Address: [address] [place] [address] Performed By: #### 4 544-3, 718-7 ####[facility]IA [id number] [address] STATES OF [facility] Hematocrit (Bld) [Volume fraction] 28.9 % Low 39.0-51.0 [facility] Comment on above: Order Comment: Speci men Type: BLOOD SPECIMENOrdering Facility: [facility] Address: [address] [place] [address] Performed By: #### 4 544-3 718-7 ####[facility]ORYCLIA [id number] [address] [place] Hgb Bld-mCncon 07-04-2023 Hemoglobin (Bld) [Mass/Vol] 8.7 g/dL Low 13.0-17.0 [facility] Comment on above: Order Comment: Speci men Type: BLOOD SPECIMENOrdering Facility: [facility] Address: [address] [place] [address] Performed By: #### 4 544-3 718-7 ####[facility]ORYCLIA [id number] [address] [place] Hemoglobin (Bld) [Mass/Vol] 9.6 g/dL Low 13.0-17.0 [facility] Comment on above: Order Comment: Speci men Type: BLOOD SPECIMENOrdering Facility: [facility] Address: [address] [place] [address] Performed By: #### 4 544-3, 718-7 ####[facility]ORYCLIA [id number] [address] OF [facility] Lipid 1996 panelon 4 Cholesterol [Mass/Vol] 118 mg/dL Normal <200 [facility] Comment on above: Order Comment: Speci men Type: BLOOD SPECIMENOrdering Facility: [facility] Address: [address] [place] [address] Result Comment: <200 mg/dL, Desirable 200-239 mg/dL, Borderline high >239 mg/dL, High Performed By: #### 2 4321-2, 02194-6, 2776-, 82672-6 ####[facility]ORYCLIA [id number] [address] Cholesterol in HDL [Mass/Vol] 39 mg/dL Low >39 [facility] Comment on above: Order Comment: Speci men Type: BLOOD SPECIMENOrdering Facility: [facility] Address: [address] [place] [address] Result Comment: 40-5 9 mg/dL, Acceptable >59 mg/dL, High: Negative risk factor for coronary heart disease <40 mg/dL, Low: Positive risk factor for coronary heart disease Performed By: #### 2 4321-2, 18554-1, 2776-, 91023-7 ####[facility]ORYCLIA [id number] [address] OF [facility] Cholesterol in LDL [Mass/Vol] 62 mg/dL Normal <100 [facility] Comment on above: Order Comment: Speci men Type: BLOOD SPECIMENOrdering Facility: [facility] Address: [address] [place] [address] Result Comment: <100 mg/dL, Optimal 100-129 mg/dL, Near optimal/above optimal 130-159 mg/dL, Borderline high 160-189 mg/dL, High >189 mg/dL, Very high Secondary prevention optimal LDL Cholesterol levels are recommended to be < 70 mg/dL Performed By: #### 2 4321-2, , 2776-, 57227-1 ####[facility]ATORYCLIA [id number] [address] Cholesterol in LDL/Cholesterol in HDL [Mass ratio] 1.59 {ratio} Normal <2.54 [facility] Comment on above: Order Comment: Speci men Type: BLOOD SPECIMENOrdering Facility: [facility] Address: [address] [place] [address] Result Comment: Refe rence: 1. National Cholesterol Education Program ATP III Guideline At-A-Glance Quick Desk Reference: National Heart, Lung, and Blood [place]. National Institutes of Health. 2001: NIH Publication No. 01-3305. 2. An International Atherosclerosis Society position paper: global recommendations for the management of dyslipidemia: executive summary, Atherosclerosis. 2014: 232(2):410-413. Performed By: #### 2 4321-2, , 2776-02, 77072-7 ####[facility]ATORYCLIA [id number] [address] Cholesterol in VLDL [Mass/Vol] 17 mg/dL Normal <30 [facility] Comment on above: Order Comment: Speci men Type: BLOOD SPECIMENOrdering Facility: [facility] Address: [address] [place] [address] Performed By: #### 2 4321-2, , 2776-02, 94300-5 ####[facility]ATORYCLIA [id number] [address] [place] Cholesterol non HDL [Mass/Vol] 79 mg/dL Normal <130 [facility] Comment on above: Order Comment: Speci men Type: BLOOD SPECIMENOrdering Facility: [facility] Address: [address] [place] [address] Result Comment: <130 mg/dL, Optimal 130-159 mg/dL, Near optimal/above optimal 160-189 mg/dL, Borderline high 190-219 mg/dL, High >219 mg/dL, Very high Secondary prevention optimal non HDL Cholesterol levels are recommended to be <100 mg/dL Performed By: #### 2 4321-2, , 7-1, 25271-7 ####[facility]ATORYCLIA [id number] [place], [place] [address] [place] [address] STATES OF [facility] Cholesterol.total/Christina sterol in HDL [Mass ratio] 3.03 {ratio} Normal <5.10 [facility] Comment on above: Order Comment: Speci men Type: BLOOD SPECIMENOrdering Facility: [facility] Address: [address] [place] [address] Performed By: #### 2 4321-2, 31404-3, 2776-1, 93008-9 ####[facility]ORYCLIA [id number] [address] [place] FASTING TIME Normal [facility] Comment on above: Order Comment: Speci men Type: BLOOD SPECIMENOrdering Facility: [facility] Address: [address] [place] [address] Result Comment: Unkn own Performed By: #### 2 4321-2, 54828-8, 2776-1, 11211-8 ####[facility]ORYCLIA [id number] [address] [place] Triglyceride [Mass/Vol] 87 mg/dL Normal <150 [facility] Comment on above: Order Comment: Speci men Type: BLOOD SPECIMENOrdering Facility: [facility] Address: [address] [place] [address] Result Comment: <150 mg/dL, Normal 150-199 mg/dL, Borderline high 200-499 mg/dL, High >499 mg/dL, Very high Performed By: #### 2 4321-2, 68281-9, 7-1, 55205-2 ####[facility]ORYCLIA [id number] [place] [address] [place] Magnesium SerPl-mCncon 07-03 Magnesium [Mass/Vol] 1.9 mg/dL Normal 1.7-2.3 [facility] Comment on above: Order Comment: Speci men Type: BLOOD SPECIMENOrdering Facility: [facility] Address: [address] [place] [address] Performed By: #### 2 4321-2, 56103-8, 2777-1, 03722-5 ####[facility]ORYCLIA [id number] [place] [address] [place] Osmolality SerPlon Osmolality [Osmolality] 267 mosm/kg Low 275-300 [facility] Comment on above: Order Comment: Speci men Type: BLOOD SPECIMENOrdering Facility: [facility] Address: [address] [place] [address] Performed By: #### 2 692-2, 38437-2, 3016-3 ####[facility]ORYCLIA [id number] [place] [id number] [place] Osmolality Uron 07-04-2023 Osmolality (U) [Osmolality] 459 mosm/kg Normal 50-1200 [facility] Comment on above: Order Comment: Speci men Type: URINE SPECIMENOrdering Facility: [facility] Address: [address] [place] [address] Performed By: #### 2 695-5, 72931-5 ####[facility]ORYCLIA [id number] [place] [address] [place] Phosphate SerPl-mCncon 07-03 Phosphate [Mass/Vol] 2.3 mg/dL Low 2.7-4.8 [facility] Comment on above: Order Comment: Speci men Type: BLOOD SPECIMENOrdering Facility: [facility] Address: [address] [place] [address] Performed By: #### 2 4321-2, 91088-5, 2777-1, 79556-1 ####[facility]ATORYCLIA [id number] [place] [id number] [place] Sodium ?Tm Ur-sCncon 024 Sodium Unsp time (U) [Moles/Vol] 86 mmol/L Normal 14-216 [facility] Comment on above: Order Comment: Speci men Type: URINE SPECIMENOrdering Facility: [facility] Address: [address] [place] [address] Performed By: #### 2 695-5, 08902-4 ####[facility]ORYCLIA [id number] [address] [place] TSH SerPl-aCncon 07-04-2023 TSH Qn 0.999 m[IU]/L Normal 0.270-4.200 [facility] Comment on above: Order Comment: Speci men Type: BLOOD SPECIMENOrdering Facility: [facility] Address: [address] [place] [address] Performed By: #### 2 692-2, 40609-8, 3016-3 ####[facility]ORYCLIA [id number] [place] [address] [place] Basic metabolic 2000 panelon 07-03-2023 Anion gap [Moles/Vol] 12 mmol/L Normal 9-18 [facility] Comment on above: Order Comment: Speci men Type: BLOOD SPECIMENOrdering Facility: [facility] Address: [address] [place] [address] Performed By: #### 2 4321-2, , 2776- ####[facility]ATORYCLIA [id number] [address] [place] Calcium [Mass/Vol] 8.1 mg/dL Low 8.5-10.2 [facility] Comment on above: Order Comment: Speci men Type: BLOOD SPECIMENOrdering Facility: [facility] Address: [address] [place] [address] Performed By: #### 2 4321-2, , 277-1 ####[facility]ATORYCLIA [id number] [place] [id number] [place] Chloride [Moles/Vol] 96 mmol/L Low 97-105 [facility] Comment on above: Order Comment: Speci men Type: BLOOD SPECIMENOrdering Facility: [facility] Address: [address] [place] [address] Performed By: #### 2 4321-2, , 277-1 ####[facility]ATORYCLIA [id number] [place] [address] [place] CO2 [Moles/Vol] 21 mmol/L Low 22-30 [facility] Comment on above: Order Comment: Speci men Type: BLOOD SPECIMENOrdering Facility: [facility] Address: [address] [place] [address] Performed By: #### 2 4321-2, , 2776-02 ####[facility]ATORYCLIA [id number] [place] [id number] [place] Creatinine [Mass/Vol] 0.78 mg/dL Normal 0.73-1.22 [facility] Comment on above: Order Comment: Speci men Type: BLOOD SPECIMENOrdering Facility: [facility] Address: [address] [place] [address] Performed By: #### 2 4321-2, , 2776-02 ####[facility]PITALIA [id number] [address] Creatinine and Glomerular filtration rate.predicted panel (S/P/Bld) 90 mL/min/1.73m??? Normal >=60 [facility] Comment on above: Order Comment: Speci men Type: BLOOD SPECIMENOrdering Facility: [facility] Address: [address] [place] [address] Result Comment: Kimberlyn mated Glomerular Filtration Rate (eGFR) is calculated using the 2020 CKD-EPI creatinine equation. This equation utilizes serum creatinine, sex, and age as parameters. The creatinine assay has traceable calibration to isotope dilution-mass spectrometry. Refer to KDIGO guidelines for clinical interpretation. In patients with unstable renal function, e.g. those with acute kidney injury, the eGFR may not accurately reflect actual GFR. Performed By: #### 2 4321-2, , 2776-02 ####[facility]ATORYCLIA [id number] [place] [address] [place] Glucose [Mass/Vol] 116 mg/dL High 74-99 [facility] Comment on above: Order Comment: Speci men Type: BLOOD SPECIMENOrdering Facility: [facility] Address: [address] [place] [address] Result Comment: The [place] Diabetes Association (ADA) provides guidance for cutoff values for fasting glucose and random glucose. The ADA defines fasting as no caloric intake for at least 8 hours. Fasting plasma glucose results between 100 to 125 mg/dL indicate increased risk for diabetes (prediabetes). Fasting plasma glucose results greater than or equal to 126 mg/dL meet the criteria for diagnosis of diabetes. In the absence of unequivocal hyperglycemia, results should be confirmed by repeat testing. In a patient with classic symptoms of hyperglycemia or hyperglycemic crisis, random plasma glucose results greater than or equal to 200 mg/dL meet the criteria for diagnosis of diabetes. Reference: Standards of Medical Care in Diabetes 2016, [employer] Diabetes Association. Diabetes Care. 2016.39(Suppl 1). Performed By: #### 2 4321-2, , 2776-02 ####[facility]ATORYCLIA [id number] [place] [address] [place] Potassium [Moles/Vol] 3.9 mmol/L Normal 3.7-5.1 [facility] Comment on above: Order Comment: Speci men Type: BLOOD SPECIMENOrdering Facility: [facility] Address: [address] [place] [address] Performed By: #### 2 4321-2, , 2776-02 ####[facility]ATORYCLIA [id number] [place] [address] [place] Sodium [Moles/Vol] 129 mmol/L Low 136-144 [facility] Comment on above: Order Comment: Speci men Type: BLOOD SPECIMENOrdering Facility: [facility] Address: [address] [place] [address] Performed By: #### 2 4321-2, , 2776-02 ####[facility]ATORYCLIA [id number] [place] [address] [place] Urea nitrogen [Mass/Vol] 15 mg/dL Normal 9-24 [facility] Comment on above: Order Comment: Speci men Type: BLOOD SPECIMENOrdering Facility: [facility] Address: [address] [place] [address] Performed By: #### 2 4321-2, 73955-0, 2777-1 ####[facility]ATORYCLIA [id number] [address] CBC panel Auto (Bld)on 07-02 Erythrocyte distribution width (RBC) [Ratio] 14.7 % Normal 11.5-15.0 [facility] Comment on above: Order Comment: Speci men Type: BLOOD SPECIMENOrdering Facility: [facility] Address: [address] [place] [address] Performed By: #### 5 8410-2 ####[facility]ATORYCLIA [id number] [address] Hematocrit (Bld) [Volume fraction] 28.8 % Low 39.0-51.0 [facility] Comment on above: Order Comment: Speci men Type: BLOOD SPECIMENOrdering Facility: [facility] Address: [address] [place] [address] Performed By: #### 5 8410-2 ####[facility]ATORYCLIA [id number] [address] Hemoglobin (Bld) [Mass/Vol] 9.4 g/dL Low 13.0-17.0 [facility] Comment on above: Order Comment: Speci men Type: BLOOD SPECIMENOrdering Facility: [facility] Address: [address] [place] [address] Performed By: #### 5 8410-2 ####[facility]ATORYCLIA [id number] [address] MCH (RBC) [Entitic mass] 29.7 pg Normal 26.0-34.0 [facility] Comment on above: Order Comment: Speci men Type: BLOOD SPECIMENOrdering Facility: [facility] Address: [address] [place] [address] Performed By: #### 5 8410-2 ####[facility]ORYCLIA [id number] [address] MCHC (RBC) [Mass/Vol] 32.6 g/dL Normal 30.5-36.0 [facility] Comment on above: Order Comment: Speci men Type: BLOOD SPECIMENOrdering Facility: [facility] Address: [address] [place] [address] Performed By: #### 5 8410-2 ####[facility]ATORYCLIA [id number] [address] OF [place] MCV (RBC) [Entitic vol] 90.9 fL Normal 80.0-100.0 [facility] Comment on above: Order Comment: Speci men Type: BLOOD SPECIMENOrdering Facility: [facility] Address: [address] [place] [address] Performed By: #### 5 8410-2 ####[facility]ORYCLIA [id number] [address] Nucleated RBC (Bld) [#/Vol] 10*3/uL Normal <0.01 [facility] Comment on above: Order Comment: Speci men Type: BLOOD SPECIMENOrdering Facility: [facility] Address: [address] [place] [address] Performed By: #### 5 8410-2 ####[facility]ATORYCLIA [id number] [address] Platelet mean volume (Bld) [Entitic vol] 11.8 fL Normal 9.0-12.7 [facility] Comment on above: Order Comment: Speci men Type: BLOOD SPECIMENOrdering Facility: [facility] Address: [address] [place] [address] Performed By: #### 5 8410-2 ####[facility]ATORYCLIA [id number] [address] [place] Platelets (Bld) [#/Vol] 134 10*3/uL Low 150-400 [facility] Comment on above: Order Comment: Speci men Type: BLOOD SPECIMENOrdering Facility: [facility] Address: [address] [place] [address] Result Comment: No c lot detected. Performed By: #### 5 8410-2 ####[facility]ATORYCLIA [id number] [place] [address] [facility] RBC (Bld) [#/Vol] 3.17 10*6/uL Low 4.20-6.00 [facility] Comment on above: Order Comment: Speci men Type: BLOOD SPECIMENOrdering Facility: [facility] Address: [address] [place] [address] Performed By: #### 5 8410-2 ####[facility]ATORYCLIA [id number] [place] [address] [facility] WBC (Bld) [#/Vol] 9.91 10*3/uL Normal 3.70-11.00 [facility] Comment on above: Order Comment: Speci men Type: BLOOD SPECIMENOrdering Facility: [facility] Address: [address] [place] [address] Performed By: #### 5 8410-2 ####[facility]ORYCLIA [id number] [place] [id number] [facility] ECG COMPLETEon 07-03-2023 ECG COMPLETE Ventricular Rate : 106 BPM Atrial Rate : 106 BPM P-R Interval : 132 ms QRS Duration : 86 ms Q-T Interval : 334 ms QTC Calculation(Bazett) : 443 ms Calculated P Rosalie : 14 degrees Calculated R Rosalie : -5 degrees Calculated T Rosalie : 28 degrees SINUS TACHYCARDIA OTHERWISE NORMAL ECG WHEN COMPARED WITH ECG OF 19-Dec-2018 16:24, SINUS RHYTHM HAS REPLACED ATRIAL FIBRILLATION VENT. RATE HAS DECREASED by [address] NO LONGER DEPRESSED IN INFERIOR LEADS NONSPECIFIC T WAVE ABNORMALITY, IMPROVED IN INFERIOR LEADS NONSPECIFIC T WAVE ABNORMALITY NO LONGER EVIDENT IN ANTEROLATERAL LEADS Confirmed by PAMELA MALAVE, JONO ([id number]) on 07/04/2023 3:02:31 PM NAME : JAYDEN CRAIG PID : [id number] : 1940 Gender : Male Race : ORD : [id number] Procedure Date : Jul 03 2023 15:55:44 Edit Date : Jul 04 2023 15:02:33 Diagnosis: SINUS TACHYCARDIA OTHERWISE NORMAL ECG WHEN COMPARED WITH ECG OF 19-Dec-2018 16:24, SINUS RHYTHM HAS REPLACED ATRIAL FIBRILLATION VENT. RATE HAS DECREASED by [address] NO LONGER DEPRESSED IN INFERIOR LEADS NONSPECIFIC T WAVE ABNORMALITY, IMPROVED IN INFERIOR LEADS NONSPECIFIC T WAVE ABNORMALITY NO LONGER EVIDENT IN ANTEROLATERAL LEADS Confirmed by JONO SANTIAGO MD ([id number]) on 07/04/2023 3:02:31 PM Test Reason : Arrhythmia Location : [address] : [place] [address] Overread By : JONO SANTIAGO MD Edited By : JONO SANTIAGO MD Referred By : , Acquired by : ANNA BLACK Normal [facility] Hematocrit Auto (Bld) [Volum e fraction]on 07-03-2023 Hematocrit (Bld) [Volume fraction] 26.9 % Low 39.0-51.0 [facility] Comment on above: Order Comment: Yogi byrd Type: BLOOD SPECIMENOrdering Facility: [facility] Address: [address] [place] [address] Performed By: #### 4 544-3, 718-7 ####[facility]ATORYCLIA [id number] [place] [address] [place] Hgb Bld-mCncon 07-03-2023 Hemoglobin (Bld) [Mass/Vol] 9.0 g/dL Low 13.0-17.0 [facility] Comment on above: Order Comment: Yogi byrd Type: BLOOD SPECIMENOrdering Facility: [facility] Address: [address] [place] [address] Performed By: #### 4 544-3, 718-7 ####[facility]ATORYCLIA [id number] [place] [address] [place] Magnesium SerPl-mCncon 07-02 Magnesium [Mass/Vol] 2.0 mg/dL Normal 1.7-2.3 [facility] Comment on above: Order Comment: Yogi byrd Type: BLOOD SPECIMENOrdering Facility: [facility] Address: [address] [place] [address] Performed By: #### 2 4321-2, 97467-5, 2777-1 ####[facility]ATORYCLIA [id number] [place] [address] [place] Phosphate SerPl-mCncon 07-02 Phosphate [Mass/Vol] 2.7 mg/dL Normal 2.7-4.8 [facility] Comment on above: Order Comment: Speci men Type: BLOOD SPECIMENOrdering Facility: [facility] Address: [address] [place] [address] Performed By: #### 2 4321-2, 91467-5, 2777-1 ####[facility]ATORYCLIA [id number] [place] [address] [place] THERAPY NTon 07-03-2023 THERAPY NT HNO ID: [id number] Author: IGNACIO TA, PT Service: Physical Therapy Author Type: Physical Therapist Type: Therapy (PT/OT/Speech/Resp) Filed: 07/03/2023 15:57 Note Text: Physical Therapy Evaluation Summary SERVICE DATE: 07/03/2023 SERVICE TIME: 1525 to 1548 ROOM: [place] [address] PT 6 Clicks Score: 20 DISCHARGE RECOMMENDATIONS Home Recommended Discharge Disposition Comments: Patient with improving clinical presentation with anticipation of further improvement while in house. Currently recommend discharge home once medically stable with assist from family as needed. No futher skilled PT needs anticipated post discharge. Recommended Discharge Equipment: Wheeled Walker ASSESSMENT Response to Therapy Interventions: Good Participation in Activities, Low Activity Tolerance PRECAUTIONS Bed/Chair Alarm, Fall Risk CURRENT HOSPITAL COURSE Patient presents to [facility] with R renal cyst with retroperiteneal bleed from ruptured cyst/mass Relevant Past Medical History: barretts esophagus, hernia, s/p CABG HOME LIVING Patient Lives With: Spouse Assistance Available: 24-Hour Entry To Home: Stairs, Without Rail Number Of Stairs Into Home: 3 Number Of Stairs To Bed/Bath: flight to bedroom, bathroom on both floors Tub/Shower Type: tub/shower Laundry: completes laundry Equipment Owned: Walker- Wheeled PRIOR FUNCTIONAL LEVEL Within Functional Limits Patient Independent in all ADLs/IADLs. Patient reports still driving and typically does not use walker for mobilization, however, has wheeled walker if needed. 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 PT facilitated bed mobility including rolling to bilateral sides and supine<>sit providing verbal cues for sequencing of task and physical assist to achieve desired position. PT facilitated multiple sit to stand transfers and provided Verbal cues for sequencing/hand placement as well as for safety awareness to reduce fall risk. Facilitated stand to sit transfers with verbal cues provided for squaring up with surface and eccentric control of descent to surface. PT facilitated ambulation in room/hallway with front wheeled walker providing Verbal cues for front wheeled walker management, improving step length, and improving gait velocity with good carryover. Timed Code Treatment (minutes): 8 Skilled Treatment Time (minutes): 23 TRAINING AND EDUCATION PROVIDED Assistive Device Use, Bed Mobility, Benefits of In-Hospital Mobility, Disease Specific Education, Discharge Planning, Falls Prevention, Gait Pattern, Reduction of Deviations, Sitting Balance, Role of Physical Therapy, Standing Balance, Transfers THERAPEUTIC SKILLS USED Activity Dosing, Cuing Verbal, Movement Facilitation, Physical Assist FUNCTIONAL STATUS mobility performed during session in bold, other mobility completed during prior session and may no longer be correct or appropriate to complete. Bed Mobility Rolling: Supervision Supine To Sit: Supervision Sit to Supine: Supervision Scooting: Stand By Assistance Transfers Sit To Stand: Contact Guard Assistance Stand To Sit: Contact Guard Assistance Bed to Chair Gait Contact Guard Assistance, Additional Information Limited in further distances secondary to fatigue. Required standing rest break x 3 throughout ambulation. Increased trunk flexion throughout. No instability or LOB Gait Device: Wheeled Walker General Deviations/Observatio ns: Carmen decreased, Step length decreased Gait Distance (feet): 50'x3 Stairs Range of Motion: WFL Strength: WFL GOALS Able to Perform HEP with: Independent Transfer Supine to/from Sit with: Independent Transfer Sit to/from Stand with: Independent Ambulate with: Independent Distance: 125'x1 Device: Wheeled Walker Ambulate Up and Down Steps with: Independent Number of Steps: 4 Device: Rail Rehab Potential: Good PLAN PT Frequency: 3 Times Per Week (1-3) Treatment Interventions: Education, Strengthening, Functional Mobility Training, Balance Training, Neuromuscular Re-education Plan for Next Visit: Bed Mobility, Fall Prevention, Gait Training, Standing Balance, Standing Tolerance, Sit to Stand Transfers SIGNATURE: Ignacio Ta PT PATIENT NAME: Jayden Craig DATE: July 03, 2023 TIME: 3:56 PM Normal [facility] THERAPY NT HNO ID: [id number] Author: MINOO CASE, OTR/L Service: Occupational Therapy Author Type: Occupational Therapist Type: Therapy (PT/OT/Speech/Resp) Filed: 07/03/2023 13:20 Note Text: Occupational Therapy Evaluation Summary SERVICE DATE: 07/03/2023 SERVICE TIME: 1023 to 1101 ROOM: [place] [address] OT 6 Clicks Score: 19 DISCHARGE RECOMMENDATIONS Home Recommended Discharge Disposition Comments: As patient is near functional baseline, it is recommended patient be d/c home with continued assistance from family as needed to ensure energy conservation is utilized for safe ADL participation and mobilization. ASSESSMENT Response to Therapy Interventions: Good Participation in Activities Patient SOB during functional mobilization and ADL participation, however, is stable and balanced during dynamic standing and sitting activities. PRECAUTIONS Bed/Chair Alarm, Fall Risk CURRENT HOSPITAL COURSE Patient presents to [facility] with R renal cyst with retroperiteneal bleed from ruptured cyst/mass Relevant Past Medical History: barretts esophagus, hernia, s/p CABG HOME LIVING Patient Lives With: Spouse Assistance Available: 24-Hour Entry To Home: Stairs, Without Rail Number Of Stairs Into Home: 3 Number Of Stairs To Bed/Bath: flight to bedroom, bathroom on both floors Tub/Shower Type: tub/shower Laundry: completes laundry Equipment Owned: Walker- Wheeled PRIOR FUNCTIONAL LEVEL Within Functional Limits Patient Independent in all ADLs/IADLs. Patient reports still driving and typically does not use walker for mobilization, however, has wheeled walker if needed. 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 Baseline Cognition: Oriented to self, Oriented to place, Oriented to time, Oriented to situation SUBJECTIVE Patient was agreeable and pleasant COGNITION Responsiveness: Alert, Awake Follows Commands: 2-step Commands, 3-step Commands Executive Function Deficits: Safety Awareness THERAPY DIAGNOSIS General symptoms and signs-other TREATMENT INTERVENTIONS Evaluation, Self Assisted Management (59612) Timed Code Treatment (minutes): 23 Skilled Treatment Time (minutes): 38 $ Evaluation - Moderate (79967) Billed Units: 1 unit Self Assisted Management (68195) Treatment Minutes: 23 $ Self Assisted Management (06845) Billed Units: 2 units TRAINING AND EDUCATION PROVIDED Benefits of In-Hospital Mobility, Command Following, Discharge Planning, Disease Specific Education, Functional Mobility Involving ADLs, Grooming Tasks, Insight into Deficits, Lower Extremity Dressing, Role of Occupational Therapy, Safety/Judgment, Sitting Balance to Improve [place] with ADLs/Self-Care, Standing Balance to Improve [place] with ADLs/Self-Care, Toileting , Transfer - Sit to Stand, Transfer - Toilet/Commode, Energy Conservation THERAPEUTIC SKILLS USED Activity Dosing, Assessment of Tolerance Including Vitals Response to Activity, Cues for Sequencing/Proper Technique for Activity, Cuing Tactile, Cuing Verbal, Therapeutic Use of Self FUNCTIONAL STATUS Activities of Daily Living Assist Level Additional Information Feeding Independent Grooming Contact Guard Assistance Facilitated oral hygiene and hair brushing while standing at sink to enhance dynamic standing balance and independence in ADLs. Bathing Upper Body Contact Guard Assistance Bathing Lower Body Minimal Assistance Dressing Upper Body Contact Guard Assistance Dressing Lower Body Contact Guard Assistance Facilitated donning/doffing of socks utilizing figure four position seated in chair to enhance independence in ADL participation and dynamic sitting balance. Toileting Contact Guard Assistance Facilitated toileting in bathroom with min tactile assistance in moving gown out of the way for patient to IND clean self safely in standing position following BM to enhance dynamic standing balance and independence in ADLs. Mobility Assist Level Additional Information Bed Mobility Sit to Stand Stand By Assistance Stand to Sit Stand By Assistance Bed to Chair Toilet/Commode Contact Guard Assistance Patient educated on safety awareness in utilizing grab bars when sitting and standing up from toilet. Shower Functional Mobility Contact Guard Assistance Functional Mobility Device: Other: See Comment (Gait belt) Patient SOB during functional mobilization and ADL participation thus requiring min verbal cueing for pursed lip breathing techniques to be utilized. Range of Motion: WFL Strength: WFL BALANCE Static Sitting Balance: Normal Dynamic Sitting Balance: Good Static Standing Balance: Normal Dynamic Standing Balance: Good GOALS Grooming with: Independent Upper Body Bathing with: Independent Upper Body Dressing with: Independent Lower Body Bathing with: Stand By Assistance Lower Body Dressing with: Independent Chair Transfer with: Independent Toilet Transfer with: Independent Demonstrate Competenc (more content not included)... Normal [facility] Basic metabolic 2000 panelon 07-02-2023 Anion gap [Moles/Vol] 9 mmol/L Normal 9-18 [facility] Comment on above: Order Comment: Speci men Type: BLOOD SPECIMENOrdering Facility: [facility] Address: [address] [place] [address] Performed By: #### 2 4321-2, , 2776-02 ####[facility] LABORATORYCLIA [id number] [place] [address] [place] Calcium [Mass/Vol] 8.0 mg/dL Low 8.5-10.2 [facility] Comment on above: Order Comment: Speci men Type: BLOOD SPECIMENOrdering Facility: [facility] Address: [address] [place] [address] Performed By: #### 2 4321-2, , 2776-02 ####[facility] LABORATORYCLIA [id number] [place] [address] [place] Chloride [Moles/Vol] 98 mmol/L Normal 97-105 [facility] Comment on above: Order Comment: Speci men Type: BLOOD SPECIMENOrdering Facility: [facility] Address: [address] [place] [address] Performed By: #### 2 4321-2, , 2776-02 ####[facility] LABORATORYCLIA [id number] [place] [address] [place] CO2 [Moles/Vol] 21 mmol/L Low 22-30 [facility] Comment on above: Order Comment: Speci men Type: BLOOD SPECIMENOrdering Facility: [facility] Address: [address] [place] [address] Performed By: #### 2 4321-2, , 2776-02 ####[facility] LABORATORYCLIA [id number] [place] [address] [place] Creatinine [Mass/Vol] 0.85 mg/dL Normal 0.73-1.22 [facility] Comment on above: Order Comment: Speci men Type: BLOOD SPECIMENOrdering Facility: [facility] Address: [address] [place] [address] Performed By: #### 2 4321-2, , 2776-02 ####[facility]CLIA [id number] [place] [address] [place] Creatinine and Glomerular filtration rate.predicted panel (S/P/Bld) 88 mL/min/1.73m??? Normal >=60 [facility] Comment on above: Order Comment: Yogi byrd Type: BLOOD SPECIMENOrdering Facility: [facility] Address: [address] [place] [address] Result Comment: Kimberlyn mated Glomerular Filtration Rate (eGFR) is calculated using the 2020 CKD-EPI creatinine equation. This equation utilizes serum creatinine, sex, and age as parameters. The creatinine assay has traceable calibration to isotope dilution-mass spectrometry. Refer to KDIGO guidelines for clinical interpretation. In patients with unstable renal function, e.g. those with acute kidney injury, the eGFR may not accurately reflect actual GFR. Performed By: #### 2 4321-2, , 2776-02 ####[facility] LABORATORYIA [id number] [place] [address] [place] Glucose [Mass/Vol] 102 mg/dL High 74-99 [facility] Comment on above: Order Comment: Yogi byrd Type: BLOOD SPECIMENOrdering Facility: [facility] Address: [address] [place] [address] Result Comment: The [place] Diabetes Association (ADA) provides guidance for cutoff values for fasting glucose and random glucose. The ADA defines fasting as no caloric intake for at least 8 hours. Fasting plasma glucose results between 100 to 125 mg/dL indicate increased risk for diabetes (prediabetes). Fasting plasma glucose results greater than or equal to 126 mg/dL meet the criteria for diagnosis of diabetes. In the absence of unequivocal hyperglycemia, results should be confirmed by repeat testing. In a patient with classic symptoms of hyperglycemia or hyperglycemic crisis, random plasma glucose results greater than or equal to 200 mg/dL meet the criteria for diagnosis of diabetes. Reference: Standards of Medical Care in Diabetes 2016, [employer] Diabetes Association. Diabetes Care. 2016.39(Suppl 1). Performed By: #### 2 4321-2, , 2776-02 ####[facility] LABORATORYCLIA [id number] [place] [address] [place] Potassium [Moles/Vol] 4.0 mmol/L Normal 3.7-5.1 [facility] Comment on above: Order Comment: Speci men Type: BLOOD SPECIMENOrdering Facility: [facility] Address: [address] [place] [address] Performed By: #### 2 4321-2, , 2776-02 ####[facility] LABORATORYCLIA [id number] [place] [id number] [place] Sodium [Moles/Vol] 128 mmol/L Low 136-144 [facility] Comment on above: Order Comment: Speci men Type: BLOOD SPECIMENOrdering Facility: [facility] Address: [address] [place] [address] Performed By: #### 2 432-2, , 2776-02 ####[facility] LABORATORYCLIA [id number] [address] STATES [facility] Urea nitrogen [Mass/Vol] 12 mg/dL Normal 9-24 [facility] Comment on above: Order Comment: Speci men Type: BLOOD SPECIMENOrdering Facility: [facility] Address: [address] [place] [address] Performed By: #### 2 4321-2, , 2776-02 ####[facility] LABORATORYCLIA [id number] [address] STATES OF [facility] CBC panel Auto (Bld)on 07-01 Erythrocyte distribution width (RBC) [Ratio] 15.1 % High 11.5-15.0 [facility] Comment on above: Order Comment: Speci men Type: BLOOD SPECIMENOrdering Facility: [facility] Address: [address] [place] [address] Performed By: #### 5 8410-2 ####[facility] LABORATORYCLIA [id number] [address] Hematocrit (Bld) [Volume fraction] 28.9 % Low 39.0-51.0 [facility] Comment on above: Order Comment: Speci men Type: BLOOD SPECIMENOrdering Facility: [facility] Address: [address] [place] [address] Performed By: #### 5 8410-2 ####[facility] LABORATORYCLIA [id number] [address] OF [facility] Hemoglobin (Bld) [Mass/Vol] 9.1 g/dL Low 13.0-17.0 [facility] Comment on above: Order Comment: Speci men Type: BLOOD SPECIMENOrdering Facility: [facility] Address: [address] [place] [address] Performed By: #### 5 8410-2 ####[facility]ATORYCLIA [id number] [address] [place] MCH (RBC) [Entitic mass] 29.5 pg Normal 26.0-34.0 [facility] Comment on above: Order Comment: Speci men Type: BLOOD SPECIMENOrdering Facility: [facility] Address: [address] [place] [address] Performed By: #### 5 8410-2 ####[facility] LABORATORYCLIA [id number] [address] [place] MCHC (RBC) [Mass/Vol] 31.5 g/dL Normal 30.5-36.0 [facility] Comment on above: Order Comment: Speci men Type: BLOOD SPECIMENOrdering Facility: [facility] Address: [address] [place] [address] Performed By: #### 5 8410-2 ####[facility]ATORYCLIA [id number] [address] [place] MCV (RBC) [Entitic vol] 93.8 fL Normal 80.0-100.0 [facility] Comment on above: Order Comment: Speci men Type: BLOOD SPECIMENOrdering Facility: [facility] Address: [address] [place] [address] Performed By: #### 5 8410-2 ####[facility] LABORATORYCLIA [id number] [address] [place] Nucleated RBC (Bld) [#/Vol] 10*3/uL Normal <0.01 [facility] Comment on above: Order Comment: Speci men Type: BLOOD SPECIMENOrdering Facility: [facility] Address: [address] [place] [address] Performed By: #### 5 8410-2 ####[facility]ATORYCLIA [id number] [address] OF [place] Platelet mean volume (Bld) [Entitic vol] 11.7 fL Normal 9.0-12.7 [facility] Comment on above: Order Comment: Speci men Type: BLOOD SPECIMENOrdering Facility: [facility] Address: [address] [place] [address] Performed By: #### 5 8410-2 ####[facility]ATORYCLIA [id number] [address] Platelets (Bld) [#/Vol] 94 10*3/uL Low 150-400 [facility] Comment on above: Order Comment: Speci men Type: BLOOD SPECIMENOrdering Facility: [facility] Address: [address] [place] [address] Result Comment: No c lot detected. Performed By: #### 5 8410-2 ####[facility]ATORYCLIA [id number] [address] OF [place] RBC (Bld) [#/Vol] 3.08 10*6/uL Low 4.20-6.00 [facility] Comment on above: Order Comment: Speci men Type: BLOOD SPECIMENOrdering Facility: [facility] Address: [address] [place] [address] Performed By: #### 5 8410-2 ####[facility]ATORYCLIA [id number] [address] OF [place] WBC (Bld) [#/Vol] 16.07 10*3/uL High 3.70-11.00 [facility] Comment on above: Order Comment: Speci men Type: BLOOD SPECIMENOrdering Facility: [facility] Address: [address], [place] [id number] Performed By: #### 5 8410-2 ####[facility] LABORATORYCLIA [id number] [place] [address] [place] CNPNon 07-02-2023 CNPN Telephone (UROLAE) JAYDEN CRAIG ([id number]) 1940 M NFR Date Time Provider Department 07/02/23 HOANG WRIGHT During your visit today, we recorded the following information about you: Hoang Wright MD 07/02/2023 2:14 PM Signed IMPRESSION: 82 year old male with RP hematoma PLAN: -CT reviewed - possible R renal mass vs cyst - RP hematoma, no active extrav -MICU discuss with IR - no intervention at this time -UA negative for infection -trend Hb q6 - should Hb rapidly drop or pts clinical status rapidly decline can consider repeat imaging vs IR angio +/- embolization -bedrest -unclear etiology of fevers - does not appear to be source -rest of care per ICU F/u 3 months c ALISHA just prior Katarina Martin 07/02/2023 2:58 PM Signed I will contact patient to arrange once he is discharged from the hospital. Katarina Martin 07/10/2023 11:58 AM Signed Patient was discharged home on 07/05/23. Renal US is arranged on 10/02/23 1:00 PM MARCO A Daniels (arrive w/ full bladder). Follow up appointment made on 10/11/23 10:45 AM Sana. I called and spoke with patient. He confirmed both appointments. Allergies As of Date: 07/02/2023 Noted Allergy Reaction LIPITOR (ATORVASTATIN CALCIUM) 02/01/2006 5 - Intolerance Comments: myalgias OMNICEF (CEFDINIR) 2013 6 - Diarrhea ZITHROMAX (AZITHROMYCIN) 02/23/2005 Date Reviewed: 07/02/2023 Reviewed by: Maria Elena Dockery RN - Fully Assessed Reason for Visit: Orders [681] Primary Visit Diagnosis:Retroperito chani hematoma [K68.3] Order(s): KIDNEY/BLADDER [1499162] Order #: [id number] FUTURE Prescriptions as of 07/10/2023 - cefdinir (OMNICEF) 300 mg capsule Take 1 capsule by mouth two times a day for 7 days. - sodium chloride soluble tablet 1 g Take 1 tablet by mouth once daily. - phosphorus (K PHOS NEUTRAL) 250 mg tablet Take 1 tablet by mouth three times a day. - lisinopril (ZESTRIL) 10 mg tablet take 1 tablet by mouth every day - simvastatin (ZOCOR) 80 mg tablet take 1 tablet by mouth everyday at bedtime - levothyroxine (LEVOXYL) 175 mcg tablet Take 1 tablet by mouth once daily. Take on empty stomach. For thyroid. - pantoprazole DR (PROTONIX) 40 mg tablet Take 1 tablet by mouth two times a day. Take on empty stomach, 1/2 hr before meal. - tamsulosin (FLOMAX) 0.4 mg Take 1 capsule by mouth daily at bedtime. - fluticasone (FLONASE) 50 mcg/actuation nasal spray Use 2 Sprays in each nostril once daily. Rinse mouth after use. - fluticasone-salmetero l HFA (ADVAIR) 115-21 mcg/actuation inhaler INHALE 2 PUFFS INSTRUCTED TWICE DAILY. RINSE MOUTH AFTER USE. - metoprolol tartrate, short acting, (LOPRESSOR) 25 mg tablet Take 1 tablet by mouth twice daily. - aspirin, enteric coated (ASPIRIN, ENTERIC COATED) 325 mg EC tablet Take 1 tablet by mouth once daily. - magnesium oxide (MAG-OX) 400 mg (241.3 mg magnesium) tablet Take 1 tablet by mouth once daily. - acetaminophen (TYLENOL) 325 mg tablet Take 2 tablets by mouth every 4 hours as needed. - THERAPEUTIC MULTIVITAMIN TAB Take 1 tablet by mouth once daily. Facility-Administered Medications as of 07/10/2023 - perflutren lipid microspheres 1.3 mL in NaCl (PF) 0.9% 10 mL injection (DEFINITY) - sodium chloride 0.9 % (flush) 10 mL (BD POSIFLUSH) Meds Comments as of 12/26/2018: 12/25/18 The medications are managed by this patient by: SPOUSE Ila Winkler PharmD severe interactions reported to Kylie 12/2607/30/18 The medications are managed by this patient by: PATIENT Elsa Gallagher PharmD Problem List As Of Date 07/02/2023 Noted Resolved Mixed hyperlipidemia [E78.2] Acquired hypothyroidism [E03.9] Unspecified hemorrhoids without mention of comp* 10/20/2010 Hiatal hernia [K44.9] Diverticulosis of colon (without mention of hem* 10/20/2010 PEPTIC ULCER NOS [K27.9] 05/30/2007 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 [K22.70] 05/30/2007 Esophagitis, unspecified [K20.90] 08/29/2007 10/20/2010 Asthma [J45.909] 07/16/2014 Escobedo's esophagus determined by biopsy [K22.7*08/05/2015 Chronic left-sided low back pain with left-side*12/09/2015 08/18/2021 Overweight (BMI 25.0-29.9) [E66.3] 05/24/2016 Lumbar foraminal stenosis [M48.061] 09/13/2016 Intervertebral disc disorder with radiculopathy* 017 DDD (degenerative disc disease), lumbar [M51.36]09/13/2016 Spondylosis of lumbar region without myelopathy*09/13/2016 Atherosclerotic heart disease of [place] coronar* Pre-op testing [Z01.818] 07/23/2018 09/19/2018 Discharge planning issues [Z75.8] 07/23/2018 Difficult airway for intubation [T88.4XXA] 07/24/2018 07/29/2018 Pain, postoperative, acute [G89.18] 07/24/2018 Atelectasis [J98.11] 07/24/2018 07/26/2018 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/2018 Postoperative hypotension [I95.81] 07/24/2018 07/25/2018 Coagulopathy (HCC) [D6 (more content not included)... Normal [facility] Hemoglobin (Bld) [Mass/Vol] 9.7 g/dL Low 13.0-17.0 [facility] Comment on above: Order Comment: Speci men Type: BLOOD SPECIMENOrdering Facility: [facility] Address: [address] [place] [address] Performed By: #### 7 18-7 ####[facility] LABORATORYCLIA [id number] [address] OF [facility] Hemoglobin (Bld) [Mass/Vol] 8.8 g/dL Low 13.0-17.0 [facility] Comment on above: Order Comment: Speci men Type: BLOOD SPECIMENOrdering Facility: [facility] Address: [address] [place] [address] Performed By: #### 7 18-7 ####[facility] WAY[facility]CLIA [id number] [address] Magnesium SerPl-[facility] 07-01 Magnesium [Mass/Vol] 2.0 mg/dL Normal 1.7-2.3 [facility] Comment on above: Order Comment: Speci men Type: BLOOD SPECIMENOrdering Facility: [facility] Address: [address] [place] [address] Performed By: #### 2 4321-2, 99614-7, 2777-1 ####[facility] WAY[facility]CLIA [id number] [address] [place] NURSING PROGon 07-02-2023 NURSING PROG HNO ID: [id number] Author: PANCHO ZAMUDIO RN Service: Nursing Author Type: Registered Nurse Type: Nursing Progress Note Filed: 07/02/2023 23:13 Note Text: Transfer Note: PATIENT NAME: Jayden Craig Patient Location: [place] [address] [address] [facility]09-12 Room: [place] [address] Patient transferred into room/unit [facility] in stable condition. Actions taken: Report given/called to Ashley LIMON. Patient belongings with patient. Normal [facility] Phosphate SerPl-mCncon 07-01 Phosphate [Mass/Vol] 2.4 mg/dL Low 2.7-4.8 [facility] Comment on above: Order Comment: Speci men Type: BLOOD SPECIMENOrdering Facility: [facility] Address: [address] [place] [address] Performed By: #### 2 4321-2, 22360-4, 2777-1 ####[facility] LABORATORYCLIA [id number] [address] ANTIBODY ID PATIENTon 2023 ANTIBODY IDENTIFIED Detected Normal [facility] Comment on above: Order Comment: Speci men Type: BLOOD SPECIMENOrdering Facility: [facility] Address: [address] [place] [address] Performed By: #### % RICARDO, TSCR ####[facility] BLOOD BANKCLIA [id number] [address] OF [facility] Bacteria Bld Culton 07-01-19 24 Bacteria identified Cx Nom (Bld) CULTURE, BLOOD: No growth 5 days Normal [facility] Comment on above: Performed By: #### 6 00-7 ####[facility]ATORYCLIA [id number] [address] [place] Basic metabolic 2000 panelon 07-01-2023 Anion gap [Moles/Vol] 10 mmol/L Normal 9-18 [facility] Comment on above: Order Comment: Speci men Type: BLOOD SPECIMENOrdering Facility: [facility] Address: [address] [place] [address] Performed By: #### 2 4321-2 ####[facility] LABORATORYCLIA [id number] [address] [place] Calcium [Mass/Vol] 8.5 mg/dL Normal 8.5-10.2 [facility] Comment on above: Order Comment: Speci men Type: BLOOD SPECIMENOrdering Facility: [facility] Address: [address] [place] [address] Performed By: #### 2 4321-2 ####[facility] LABORATORYCLIA [id number] [place] [id number] [place] Chloride [Moles/Vol] 98 mmol/L Normal 97-105 [facility] Comment on above: Order Comment: Speci men Type: BLOOD SPECIMENOrdering Facility: [facility] Address: [address] [place] [address] Performed By: #### 2 4321-2 ####[facility] LABORATORYCLIA [id number] [place] [id number] [place] CO2 [Moles/Vol] 22 mmol/L Normal 22-30 [facility] Comment on above: Order Comment: Speci men Type: BLOOD SPECIMENOrdering Facility: [facility] Address: [address] [place] [address] Performed By: #### 2 4321-2 ####[facility] LABORATORYCLIA [id number] [address] STATES OF [facility] Creatinine [Mass/Vol] 0.82 mg/dL Normal 0.73-1.22 [facility] Comment on above: Order Comment: Speci men Type: BLOOD SPECIMENOrdering Facility: [facility] Address: [address] [place] [address] Performed By: #### 2 4321-2 ####[facility] LABORATORYCLIA [id number] [address] Creatinine and Glomerular filtration rate.predicted panel (S/P/Bld) 89 mL/min/1.73m??? Normal >=60 [facility] Comment on above: Order Comment: Speci men Type: BLOOD SPECIMENOrdering Facility: [facility] Address: [address] [place] [address] Result Comment: Kimberlyn mated Glomerular Filtration Rate (eGFR) is calculated using the 2020 CKD-EPI creatinine equation. This equation utilizes serum creatinine, sex, and age as parameters. The creatinine assay has traceable calibration to isotope dilution-mass spectrometry. Refer to KDIGO guidelines for clinical interpretation. In patients with unstable renal function, e.g. those with acute kidney injury, the eGFR may not accurately reflect actual GFR. Performed By: #### 2 4321-2 ####[facility]ORYCLIA [id number] [place] [address] [place] Glucose [Mass/Vol] 115 mg/dL High 74-99 [facility] Comment on above: Order Comment: Yogi byrd Type: BLOOD SPECIMENOrdering Facility: [facility] Address: [address] [place] [address] Result Comment: The [place] Diabetes Association (ADA) provides guidance for cutoff values for fasting glucose and random glucose. The ADA defines fasting as no caloric intake for at least 8 hours. Fasting plasma glucose results between 100 to 125 mg/dL indicate increased risk for diabetes (prediabetes). Fasting plasma glucose results greater than or equal to 126 mg/dL meet the criteria for diagnosis of diabetes. In the absence of unequivocal hyperglycemia, results should be confirmed by repeat testing. In a patient with classic symptoms of hyperglycemia or hyperglycemic crisis, random plasma glucose results greater than or equal to 200 mg/dL meet the criteria for diagnosis of diabetes. Reference: Standards of Medical Care in Diabetes 2016, [employer] Diabetes Association. Diabetes Care. 2016.39(Suppl 1). Performed By: #### 2 4321-2 ####[facility]ORYCLIA [id number] [place] [address] [place] Potassium [Moles/Vol] 4.3 mmol/L Normal 3.7-5.1 [facility] Comment on above: Order Comment: Yogi byrd Type: BLOOD SPECIMENOrdering Facility: [facility] Address: [address] [place] [address] Performed By: #### 2 4321-2 ####[facility]ORYCLIA [id number] [place] [id number] [place] Sodium [Moles/Vol] 130 mmol/L Low 136-144 [facility] Comment on above: Order Comment: Yogi byrd Type: BLOOD SPECIMENOrdering Facility: [facility] Address: [address] [place] [address] Performed By: #### 2 4321-2 ####[facility]ORYCLIA [id number] [place] [address] [place] Urea nitrogen [Mass/Vol] 11 mg/dL Normal 9-24 [facility] Comment on above: Order Comment: Speci men Type: BLOOD SPECIMENOrdering Facility: [facility] Address: [address] [place] [address] Performed By: #### 2 4321-2 ####[facility]ORYCLIA [id number] [place] [address] [place] CBC W Auto Differential pane l (Bld)on 07-01-2023 Differential cell count method Nom (Bld) Manual Normal [facility] Comment on above: Order Comment: Speci men Type: BLOOD SPECIMENOrdering Facility: [facility] Address: [address] [place] [address] Performed By: #### 5 7021-8, [id number] ####[facility]ORYCLIA [id number] [address] [place] Erythrocyte distribution width (RBC) [Ratio] 14.8 % Normal 11.5-15.0 [facility] Comment on above: Order Comment: Speci men Type: BLOOD SPECIMENOrdering Facility: [facility] Address: [address] [place] [address] Performed By: #### 5 7021-8, [id number] ####[facility]ORYCLIA [id number] [address] [place] Hematocrit (Bld) [Volume fraction] 29.5 % Low 39.0-51.0 [facility] Comment on above: Order Comment: Speci men Type: BLOOD SPECIMENOrdering Facility: [facility] Address: [address] [place] [address] Performed By: #### 5 7021-8, [id number] ####[facility]ORYCLIA [id number] [address] [place] Hemoglobin (Bld) [Mass/Vol] 9.9 g/dL Low 13.0-17.0 [facility] Comment on above: Order Comment: Speci men Type: BLOOD SPECIMENOrdering Facility: [facility] Address: [address] [place] [address] Performed By: #### 5 7021-8, [id number] ####[facility]ORYCLIA [id number] [address] MCH (RBC) [Entitic mass] 29.9 pg Normal 26.0-34.0 [facility] Comment on above: Order Comment: Speci men Type: BLOOD SPECIMENOrdering Facility: [facility] Address: [address] [place] [address] Performed By: #### 5 7021-8, [id number] ####[facility]ORYCLIA [id number] [address] MCHC (RBC) [Mass/Vol] 33.6 g/dL Normal 30.5-36.0 [facility] Comment on above: Order Comment: Speci men Type: BLOOD SPECIMENOrdering Facility: [facility] Address: [address] [place] [address] Performed By: #### 5 7021-8, [id number] ####[facility]ORYCLIA [id number] [address] MCV (RBC) [Entitic vol] 89.1 fL Normal 80.0-100.0 [facility] Comment on above: Order Comment: Speci men Type: BLOOD SPECIMENOrdering Facility: [facility] Address: [address] [place] [address] Performed By: #### 5 7021-8, [id number] ####[facility]ORYCLIA [id number] [address] NRBC FROM MAN DIFF REPORTED 0.0 /100 WBC Normal 0.0 /100 WBC [facility] Comment on above: Order Comment: Speci men Type: BLOOD SPECIMENOrdering Facility: [facility] Address: [address] [place] [address] Performed By: #### 5 7021-8, [id number] ####[facility]ORYCLIA [id number] [address] Nucleated RBC (Bld) [#/Vol] 10*3/uL Normal <0.01 [facility] Comment on above: Order Comment: Speci men Type: BLOOD SPECIMENOrdering Facility: [facility] Address: [address] [place] [address] Performed By: #### 5 7021-8, [id number] ####[facility]ORYCLIA [id number] [address] [place] Platelet mean volume (Bld) [Entitic vol] 11.0 fL Normal 9.0-12.7 [facility] Comment on above: Order Comment: Speci men Type: BLOOD SPECIMENOrdering Facility: [facility] Address: [address] [place] [address] Performed By: #### 5 7021-8, [id number] ####[facility]ORYCLIA [id number] [address] Platelets (Bld) [#/Vol] 99 10*3/uL Low 150-400 [facility] Comment on above: Order Comment: Speci men Type: BLOOD SPECIMENOrdering Facility: [facility] Address: [address] [place] [address] Performed By: #### 5 7021-8, [id number] ####[facility]ORYCLIA [id number] [address] [place] RBC (Bld) [#/Vol] 3.31 10*6/uL Low 4.20-6.00 [facility] Comment on above: Order Comment: Speci men Type: BLOOD SPECIMENOrdering Facility: [facility] Address: [address] [place] [address] Performed By: #### 5 7021-8, [id number] ####[facility]ORYCLIA [id number] [address] OF [place] WBC (Bld) [#/Vol] 20.28 10*3/uL High 3.70-11.00 [facility] Comment on above: Order Comment: Speci men Type: BLOOD SPECIMENOrdering Facility: [facility] Address: [address] [place] [address] Performed By: #### 5 7021-8, [id number] ####[facility]ORYCLIA [id number] [address] STATES OF [facility] CONSULTon 07-01-2023 CONSULT HNO ID: [id number] Author: HOANG WRIGHT MD Service: Urology Author Type: Physician Type: Consults Filed: 07/02/2023 14:13 Note Text: Urology Inpatient Consultation 07/01/2023 HISTORY OF PRESENT ILLNESS: The patient is a 82 year old male seen by an outside urologist in the past for BPH currently admitted for syncope. Urology consulted for concern for RP hematoma. Upon evaluation pt resting in bed, family is at bedside. Pt reports falling 2 days ago. Reports back pain thought this is now new. Denies hematuria, dysuria. MICU discussed case with IR who did not feel intervention was warranted at this time. 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 CAD (coronary artery disease) Constipation Essential hypertension Fatigue, unspecified type H/O ventral hernia repair 04/03/2023 Hiatal hernia 1989 History of coronary artery bypass graft 07/24/2018 VASQUES in situ mammary end to side mid LAD, Vein graft ascending aorta end to side RCA, Vein graft ascending aorta end to side obtuse marginal 1 Hyperlipidemia Peptic ulcer, unspecified site, unspecified as acute or chronic, without mention of hemorrhage, perforation, or obstruction 2004 Unspecified hypothyroidism 1989 PAST SURGICAL HISTORY: PAST SURGICAL HISTORY Procedure Laterality Date ANES HRNA RPR UPR ABD LMBRANDVENTRAL HERNIAANDDEHISC 04/03/[address] Regina Oswald APPENDECTOMY COLONOSCOPY FLX DX W/COLLJ SPEC WHEN PFRMD 06/28/2004 Colonoscopy COLONOSCOPY FLX DX W/COLLJ SPEC WHEN PFRMD 08/06/2015 Colonoscopy CORONARY ARTERY BYPASS GRAFT HX 07/24/2018 VASQUES in situ mammary end to side mid LAD, Vein graft ascending aorta end to side RCA, Vein graft ascending aorta end to side obtuse marginal 1. EGD N/A 06/29/2020 Dr. Keating EGD 05/31/2021 EGD TRANSORAL BIOPSY SINGLE/MULTIPLE 08/30/2009 EGD TRANSORAL BIOPSY SINGLE/MULTIPLE 08/23/2011 repeat in 2 years ESOPHAGOGASTRODUODENO SCOPY TRANSORAL DIAGNOSTIC 10/06/1998 EGD ESOPHAGOGASTRODUODENO SCOPY TRANSORAL DIAGNOSTIC 01/29/2000 EGD ESOPHAGOGASTRODUODENO SCOPY TRANSORAL DIAGNOSTIC 08/04/2003 EGD ESOPHAGOGASTRODUODENO SCOPY TRANSORAL DIAGNOSTIC 08/29/2007 EGD ESOPHAGOGASTRODUODENO SCOPY TRANSORAL DIAGNOSTIC 08/28/2013 EGD ESOPHAGOGASTRODUODENO SCOPY TRANSORAL DIAGNOSTIC 10/08/2017 EGD HEART SURGERY HX HIATAL HERNIA REPAIR HX 08/24/2022 Laparoscopic paraesophageal hernia repair with gastropexy, Primary repair of ventral hernia, EGD LAPAROSCOPIC CHOLECYSTECTOMY 12/15/2018 PAST SURGICAL HISTORY OF N/A 04/25/2017 Back surgery done at [facility], [address] [place] [address] and cleaned up arthritis REPAIR UMBILICAL HERNIA 08/24/2022 ALLERGIES: ALLERGIES Allergen Reactions Lipitor [Atorvastat* Intolerance myalgias Omnicef [Cefdinir] Diarrhea Zithromax [Azithrom* HOME MEDICATIONS: perflutren lipid microspheres 1.3 mL in NaCl (PF) 0.9% 10 mL injection (DEFINITY), , INTRAVENOUS, DIRECTED PRNTuan Siva, MD sodium chloride 0.9 % (flush) 10 mL (BD POSIFLUSH), 10 mL, INTRAVENOUS, DIRECTED PRTuan Calderon Siva, MD lisinopril (ZESTRIL) 10 mg tablet, take 1 tablet by mouth every day, Disp: 90 tablet, Rfl: 3 simvastatin (ZOCOR) 80 mg tablet, take 1 tablet by mouth everyday at bedtime, Disp: 90 tablet, Rfl: 3 levothyroxine (LEVOXYL) 175 mcg tablet, Take 1 tablet by mouth once daily. Take on empty stomach. For thyroid., Disp: 90 tablet, Rfl: [address] (PROTONIX) 40 mg tablet, Take 1 tablet by mouth two times a day. Take on empty stomach, 1/2 hr before meal., Disp: 180 tablet, Rfl: 3 tamsulosin (FLOMAX) 0.4 mg, Take 1 capsule by mouth daily at bedtime., Disp: 30 capsule, Rfl: 5 fluticasone (FLONASE) 50 mcg/actuation nasal spray, Use 2 Sprays in each nostril once daily. Rinse mouth after use., Disp: 16 mL, Rfl: 11 fluticasone-salmetero l HFA (ADVAIR) 115-21 mcg/actuation inhaler, INHALE 2 PUFFS INSTRUCTED TWICE DAILY. RINSE MOUTH AFTER USE., Disp: 12 Each, Rfl: 5 metoprolol tartrate, short acting, (LOPRESSOR) 25 mg tablet, Take 1 tablet by mouth twice daily., Disp: 180 tablet, Rfl: 3 aspirin, enteric coated (ASPIRIN, ENTERIC COATED) 325 mg EC tablet, Take 1 tablet by mouth once daily., Disp: , Rfl: magnesium oxide (MAG-OX) 400 mg (241.3 mg magnesium) tablet, Take 1 tablet by mouth once daily., Disp: 90 tablet, Rfl: 3 senna-docusate (SENNA-S) 8.6-50 mg per tablet, Take 1 tablet by mouth once daily., Disp: , Rfl: acetaminophen (TYLENOL) 325 mg tablet, Take 2 tablets by mouth every 4 hours as needed., Disp: 100 tablet, Rfl: 0 THERAPEUTIC MULTIVITAMIN TAB, Take 1 tablet by mouth once daily., Disp: , Rfl: 0 FAMILY HISTORY: Family History Problem Relation Age (more content not included)... Normal [facility] CONSULT HNO ID: [id number] Author: SHAREE NOBLE MD Service: Hospital Medicine Author Type: Physician Type: Consults Filed: 07/01/2023 13:16 Note Text: MICU HANDP PATIENT NAME: Jayden Craig REASON FOR ADMISSION: Acute on Chronic Anemia DATE: July 01, 2023 Subjective HPI Mr. Jayden Craig is a 82 year old male with PMH: - Hypothyroidism - CABG - Hyperlipidemia - PUD, Escobedo's Esophagus Patient presented to [facility] on 07/01/2023 with complaints of syncopal episodes. Patient was a transfer from the [place] ED to [facility] for acute retroperitoneal hematoma. MICU was consulted as per the request of general surgery for retroperitoneal hematoma. Spoke with the patient's who stated that the patient had a traumatic fall in the bathroom on Sunday. Stated that he lost consciousness and had worsening tenderness on the right side of his back. He is on ASA at home. He also took some Ibuprofen to help with the pain. Upon examination, patient states that he has lower abdominal pain. He states it feels like a dull ache. He states that it is a 5 out of 10. He also states that he has had some nausea and vomiting. He denies any recent smoking history. States that he quit in 1981. He also mentions that he had a traumatic fall 2 days ago. He denies any head trauma. He cannot mention any recent changes in medications. He is not on anticoagulation. He would like to remain full code. He would want all resuscitative measures. Review of Systems Constitutional: Positive for fever. Negative for activity change, appetite change, chills, diaphoresis, fatigue and unexpected weight change. Respiratory: Negative for cough, choking, chest tightness, shortness of breath and wheezing. Cardiovascular: Negative for chest pain, palpitations and leg swelling. Gastrointestinal: Positive for abdominal pain and nausea. Negative for blood in stool, diarrhea, rectal pain and vomiting. Musculoskeletal: Negative for back pain and myalgias. Skin: Negative for color change, pallor and rash. 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 CAD (coronary artery disease) Constipation Essential hypertension Fatigue, unspecified type H/O ventral hernia repair 04/03/2023 Hiatal hernia 1989 History of coronary artery bypass graft 07/24/2018 VASQUES in situ mammary end to side mid LAD, Vein graft ascending aorta end to side RCA, Vein graft ascending aorta end to side obtuse marginal 1 Hyperlipidemia Peptic ulcer, unspecified site, unspecified as acute or chronic, without mention of hemorrhage, perforation, or obstruction 2004 Unspecified hypothyroidism 1989 PAST SURGICAL HISTORY Procedure Laterality Date ANES HRNA RPR UPR ABD LMBRANDVENTRAL HERNIAANDDEHISC 04/03/[address] Regina Oswald APPENDECTOMY COLONOSCOPY FLX DX W/COLLJ SPEC WHEN PFRMD 06/28/2004 Colonoscopy COLONOSCOPY FLX DX W/COLLJ SPEC WHEN PFRMD 08/06/2015 Colonoscopy CORONARY ARTERY BYPASS GRAFT HX 07/24/2018 VASQUES in situ mammary end to side mid LAD, Vein graft ascending aorta end to side RCA, Vein graft ascending aorta end to side obtuse marginal 1. EGD N/A 06/29/2020 Dr. Keating EGD 05/31/2021 EGD TRANSORAL BIOPSY SINGLE/MULTIPLE 08/30/2009 EGD TRANSORAL BIOPSY SINGLE/MULTIPLE 08/23/2011 repeat in 2 years ESOPHAGOGASTRODUODENO SCOPY TRANSORAL DIAGNOSTIC 10/06/1998 EGD ESOPHAGOGASTRODUODENO SCOPY TRANSORAL DIAGNOSTIC 01/29/2000 EGD ESOPHAGOGASTRODUODENO SCOPY TRANSORAL DIAGNOSTIC 08/04/2003 EGD ESOPHAGOGASTRODUODENO SCOPY TRANSORAL DIAGNOSTIC 08/29/2007 EGD ESOPHAGOGASTRODUODENO SCOPY TRANSORAL DIAGNOSTIC 08/28/2013 EGD ESOPHAGOGASTRODUODENO SCOPY TRANSORAL DIAGNOSTIC 10/08/2017 EGD HEART SURGERY HX HIATAL HERNIA REPAIR HX 08/24/2022 Laparoscopic paraesophageal hernia repair with gastropexy, Primary repair of ventral hernia, EGD LAPAROSCOPIC CHOLECYSTECTOMY 12/15/2018 PAST SURGICAL HISTORY OF N/A 04/25/2017 Back surgery done at [facility], [address] [place] [address] and cleaned up arthritis REPAIR UMBILICAL HERNIA 08/24/2022 FAMILY HISTORY Problem Relation Age of Onset Emphysema Father Emphysema Mother other (no cardiac hx per pt) Other Social History Tobacco Use Smoking status: Former Packs/day: 0.50 Years: 27.00 Additional pack years: 0.00 Total pack years: 13.50 Types: Cigarettes Quit date: 1982 Years since quittin.4 Smokeless tobacco: Never Vaping Use Vaping Use: Never used Substance Use Topics Alcohol use: Not Currently Drug use: Never Current Facility-Administered Medications on File Prior to Encounter Medication perflutren lipid microspheres 1.3 mL in NaCl (PF) 0.9% 10 mL injection (DEFINITY) sodium chloride 0.9 % (flush) 10 mL (BD POSIFLUSH) Current Outpatient Medications on File Prior to Encounter Medication Sig lisinopril (ZESTRIL) 10 mg tablet take 1 ta (more content not included)... Normal [facility] CONSULT HNO ID: [id number] Author: ANDERSON CLEANING MD Service: General Surgery Author Type: Resident Type: Consults Filed: 07/02/2023 16:15 Note Text: Attestation signed by Anderson Cleaning MD at 07/02/2023 4:15 PM Attending Note I evaluated the patient and personally participated in the lopez components. I agree with the resident's findings and plan with the following revisions and/or additions: I also personally discussed the plan with the team and carefully reviewed the CT scan. Signature: Anderson Cleaning MD Date: 07/02/2023 Time: 4:14 PM CONSULT: [facility] Surgery Service SERVICE DATE: 07/01/2023 SERVICE TIME: 10:05 AM REASON FOR CONSULT: Hemorrhagic ascites secondary to ruptured appendix REQUESTING PHYSICIAN: ED to ED transfer Subjective 82 year old male past medical history HTN, HLD, hypothyroid, CAD s/p CABG, lap hiatal hernia repair, laparoscopic cholecystectomy laparoscopic appendectomy, ventral hernia repair presents as an ED to ED transfer from [facility] for concerns of hemorrhagic ascites. Patient is not on any blood thinners but he does take aspirin. Patient states that he has been having right lower quadrant and right flank pain for the last 5 or so days. He states that he has a fever, but no chills, nausea, vomiting. He states that he has not passed gas or had a bowel movement since yesterday. He denies any hematuria, chest pain, shortness of breath. He is a former half pack per day smoker, quit in 1981. He reportedly had a mechanical fall 2 days ago after which his flank and abdominal pain worsened prompting him to come to the ED. In the ED, he was found to be febrile to 38.4, tachycardic to the 120s, leukocytosis 19 prompting his transfer to [facility]. At [facility], patient remains tachycardic and febrile. He relates 5 out of 10 crampy pain to the right flank/lower quadrant with some intermittent nausea. States he is not short of breath. Basic labs were redrawn and patient was started on sepsis protocol with fluid resuscitation, blood cultures, lactate. Zosyn was started as well. 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 CAD (coronary artery disease) Constipation Essential hypertension Fatigue, unspecified type H/O ventral hernia repair 04/03/2023 Hiatal hernia 1989 History of coronary artery bypass graft 07/24/2018 VASQUES in situ mammary end to side mid LAD, Vein graft ascending aorta end to side RCA, Vein graft ascending aorta end to side obtuse marginal 1 Hyperlipidemia Peptic ulcer, unspecified site, unspecified as acute or chronic, without mention of hemorrhage, perforation, or obstruction 2004 Unspecified hypothyroidism 1989 PAST SURGICAL HISTORY Procedure Laterality Date ANES HRNA RPR UPR ABD LMBRANDVENTRAL HERNIAANDDEHISC 04/03/[address] Regina Oswald APPENDECTOMY COLONOSCOPY FLX DX W/COLLJ SPEC WHEN PFRMD 06/28/2004 Colonoscopy COLONOSCOPY FLX DX W/COLLJ SPEC WHEN PFRMD 08/06/2015 Colonoscopy CORONARY ARTERY BYPASS GRAFT HX 07/24/2018 VASQUES in situ mammary end to side mid LAD, Vein graft ascending aorta end to side RCA, Vein graft ascending aorta end to side obtuse marginal 1. EGD N/A 06/29/2020 Dr. Keating EGD 05/31/2021 EGD TRANSORAL BIOPSY SINGLE/MULTIPLE 08/30/2009 EGD TRANSORAL BIOPSY SINGLE/MULTIPLE 08/23/2011 repeat in 2 years ESOPHAGOGASTRODUODENO SCOPY TRANSORAL DIAGNOSTIC 10/06/1998 EGD ESOPHAGOGASTRODUODENO SCOPY TRANSORAL DIAGNOSTIC 01/29/2000 EGD ESOPHAGOGASTRODUODENO SCOPY TRANSORAL DIAGNOSTIC 08/04/2003 EGD ESOPHAGOGASTRODUODENO SCOPY TRANSORAL DIAGNOSTIC 08/29/2007 EGD ESOPHAGOGASTRODUODENO SCOPY TRANSORAL DIAGNOSTIC 08/28/2013 EGD ESOPHAGOGASTRODUODENO SCOPY TRANSORAL DIAGNOSTIC 10/08/2017 EGD HEART SURGERY HX HIATAL HERNIA REPAIR HX 08/24/2022 Laparoscopic paraesophageal hernia repair with gastropexy, Primary repair of ventral hernia, EGD LAPAROSCOPIC CHOLECYSTECTOMY 12/15/2018 PAST SURGICAL HISTORY OF N/A 04/25/2017 Back surgery done at [facility], [address] [place] [address] and cleaned up arthritis REPAIR UMBILICAL HERNIA 08/24/2022 FAMILY HISTORY Problem Relation Age of Onset Emphysema Father Emphysema Mother other (no cardiac hx per pt) Other Social History Tobacco Use Smoking status: Former Packs/day: 0.50 Years: 27.00 Additional pack years: 0.00 Total pack years: 13.50 Types: Cigarettes Quit date: 1981 Years since quittin.4 Smokeless tobacco: Never Vaping Use Vaping Use: Never used Substance Use Topics Alcohol use: Not Currently Drug use: Never (Not in a hospital admission) Current Facility-Administered Medications Medication Dose (more content not included)... Normal [facility] CTA ABD/PELV WO/W IVCONon CTA ABD/PELV WO/W IVCON * * *Final Repor t* * * DATE OF EXAM: Jul 01 2023 11:57AM [facility] [id number] - CTA ABD/PELV WO/W IVCON / PROCEDURE REASON: Abdominal trauma, penetrating * * * * Physician Interpretation * * * * EXAM: CT ANGIOGRAM OF THE ABDOMEN AND PELVIS HISTORY: Abdominal trauma abdominal pain retroperitoneal bleed TECHNIQUE: High-resolution contrast-enhanced helical CT of the abdomen and pelvis was performed, timed to the arterial phase. 3-D post-processing was performed on an independent work station and MIP images were sent to PACS. Total of 100 ml of Omnipaque 350 was injected IV during the examination. Dose-Length Product (DLP): 1566 mGy*cm. CT Dose Reduction Employed: Automated exposure control COMPARISON: Same day CT abdomen pelvis at 12:28 AM, CT abdomen pelvis 02/14/2023, 12/18/2018 RESULT: Potential study limitations: None. VASCULAR FINDINGS ABDOMEN AND PELVIS: The aorta is patent and nonaneurysmal. There is a small penetrating ulcer in the infrarenal aorta series 7, image 261. Celiac artery is patent. Superior mesenteric artery is patent. 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 Inferior mesenteric artery is patent. There is a single right renal artery. Right renal artery demonstrates mild stenosis at its origin. No active extravasation in the right kidney. There is a single left renal artery. Left renal artery is patent. The bilateral iliac and proximal femoral arteries are patent. 1.8 cm dilation of the proximal right internal iliac artery. The left internal iliac artery measures 1.2 cm. NONVASCULAR FINDINGS Liver: No mass. Biliary: No bile duct dilation. Cholecystectomy. Spleen: No mass. No splenomegaly. Pancreas: No mass or duct dilation. A few calcifications in the pancreatic head. Adrenals: No mass. Kidneys: Small nonobstructive calculi in the right kidney. No hydronephrosis. 4.7 x 3.7 cm right inferior pole renal mass which has been increasing in size since 202. This mass measures just above water density. Left renal cyst. Similar right perinephric/retroperi toneal hematoma extending into the bilateral pelvis. GI tract: No dilation or wall thickening. Small hiatal hernia. Appendix not seen. Lymph nodes: No abdominal or pelvic lymphadenopathy. Mesentery/Peritoneum: No ascites or mass. Retroperitoneum: See above. Pelvis: No mass, ascites or fluid collection. Bones/Soft Tissues: No acute osseous findings. Lower thorax: Small right pleural effusion and adjacent atelectasis. IMPRESSION: Similar right perinephric/retroperi toneal hematoma. No active extravasation. 4.7 x 3.7 cm probable complicated cyst but has been increasing in size since 2022. Follow up renal ultrasound or CT kidney after the perinephric hematoma has resolved. 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 ACTIONABLE RESULT: FOLLOW-UP Acuity: Actionable Findings: Kidneys/Ureters/Bladd er Routing Code: GU_1 Recommendation: Unlisted Recommendation (see report) Time Frame: 4-6 weeks COMMUNICATION: Results will be communicated with the ordering provider via [employer] staff message or phone message by [employer] within 2 business days of report finalization. --END OF FINDING-- Data Collection Associate: ELAINE Transcribe Date/Time: Jul 01 2023 12:51P Dictated by : JORDAN RACHEL MD This examination was interpreted and the report reviewed and electronically signed by: JORDAN RACHEL MD on Jul 01 2023 1:21PM EST [id number] ACTIONABLE Invalid Interpretation Code [facility] ED NOTEon 07-01-2023 ED NOTE HNO ID: [id number] Author: NORRIS NAVA RN Service: Emergency Medicine Author Type: Registered Nurse Type: ED Notes Filed: 07/01/2023 11:39 Note Text: CT Notified pt ready for imaging Normal [facility] ED NOTE HNO ID: [id number] Author: NORRIS NAVA RN Service: Emergency Medicine Author Type: Registered Nurse Type: ED Notes Filed: 07/01/2023 10:06 Note Text: Pt assisted to stand at bedside to use urinal Normal [facility] ED NOTE HNO ID: [id number] Author: NORRIS NAVA RN Service: Emergency Medicine Author Type: Registered Nurse Type: ED Notes Filed: 07/01/2023 09:25 Note Text: Surgery resident at bedside Normal [facility] ED PROV NOTEon 07-01-2023 ED PROV NOTE HNO ID: [id number] Author: ANIYA BAEZ DO Service: Emergency Medicine Author Type: Physician Type: ED Provider Notes Filed: 07/01/2023 15:02 Note Text: Attending Note I evaluated the patient and personally participated in the lopez components. I agree with the resident's findings and plan as documented and have discussed the case and management of the patient's care with the resident. HPI: Patient is a 82 year old male with past medical hx as documented below who presents for evaluation of possible hemorrhagic appendicitis. Patient presents from [facility] where he had a mechanical fall 2 days ago after he had not been feeling well for a few days prior to that. He states that after he fell he was not feeling well and did have an intermittent fever and went to [facility] to be evaluated. He was found to be febrile and have a leukocytosis of 19 and was also tachycardic. He underwent CT imaging which showed area of possible fluid collection with inability to identify the appendix with recommendation for oral contrast to reevaluate. Upon that oral contrasted CT did show possibility of ruptured appendicitis with hemorrhagic ascites. The patient states he is not on blood thinners. He was given Tylenol and started on Zosyn and was sent over for surgical consult. Upon arrival patient states he is still having 5 out of 10 abdominal pain and intermittent nausea. He denies chest pain, shortness of breath, cough, dysuria, hematuria. Does endorse constipation but denies any diarrhea. Endorses history of prior hiatal hernia repair and also CABG procedure. 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 Febrile at 38.4 ?C HEENT: Normocephalic, atraumatic. EOMI, PERRLA. CV: Tachycardic with a rate of 130. Respiratory: Diminished bilaterally with scattered wheezing with no rhonchi or rales. Abdomen: Soft with moderate tenderness in the right lower quadrant and suprapubically with no rebound but voluntary guarding noted. No distention noted. No CVA tenderness. Neurologic: Awake, alert. Normal speech pattern. Moving all 4 extremities at all major joints. No obvious sensory deficits of the extremities. Musculoskeletal: No obvious bony abnormalities. No midline cervical, thoracic, lumbosacral tenderness. Extremities: No swelling or edema of the extremities. Extremities warm and well perfused. MDM: Patient is a 82 year old male with past medical hx as documented below who presents for surgical consult. See HPI. Possible etiologies of patient's presentation include but are not limited to ruptured appendicitis, RP bleed, intra-abdominal abscess. Upon patient arrival he was found to be febrile and tachycardic and was given Tylenol. On chart review of his care at [place] CT imaging was reviewed and showed evidence of possible ruptured appendicitis with hemorrhagic ascites. He was also meeting sepsis criteria and was started on Zosyn and will be continued on this. There was no blood cultures obtained but will obtain blood cultures upon arrival along with lactic acid. General surgery on consult to evaluate patient. General surgery evaluated the patient and states that they believe he likely suffering from retroperitoneal bleed with possible kidney source as they do not believe the patient still has his appendix as he reportedly states he believes he had a appendectomy remotely. Given retroperitoneal bleed, MICU was then consulted. Patient was admitted to the MICU under Dr. Noble and remained stable until time of transfer to the MICU. ANIYA BAEZ 07/01/23 1502 Normal [facility] ED PROV NOTE HNO ID: [id number] Author: ANIYA BAEZ DO Service: Emergency Medicine Author Type: Resident Type: ED Provider Notes Filed: 07/05/2023 09:22 Note Text: Attestation signed by Aniya Baez DO at 07/05/2023 9:22 AM Attending Physician Note: I evaluated the patient and personally participated in the lopez components. I agree with the resident's findings and plan as documented and have discussed the case and management of the patient's care with the resident. Lopez findings confirmed. I was present for lopez portions of and personally supervised any/all procedures. See separate attending note. Signature: Aniya Baez DO Date: 07/05/2023 Time: 9:22 AM ED Provider Note Patient Name: Jayden Craig : 1940 SERVICE DATE: 07/01/23 History No chief complaint on file. Patient is an 82-year-old male past medical history significant for peptic ulcer, abdominal wall hernia, Escobedo's esophagus who presents as a transfer from [place] for retroperitoneal bleed with possible appendicitis. Patient reports he started having abdominal pain 1 week ago on the right side of his abdomen. Reports he had a fall 3 days ago because when he got up he got lightheaded and blacked out. Denies use of blood thinners. Did not go to the hospital after this episode. Presented to the [facility] emergency department for the pain and was transferred here for surgery consult. Please see their note for full HPI. Patient does not know his medical history well. Reports he is on Eliquis although this is not documented in the chart. Reports he does not know what abdominal surgeries he has had in the past. 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 CAD (coronary artery disease) Constipation Essential hypertension Fatigue, unspecified type H/O ventral hernia repair 04/03/2023 Hiatal hernia 1989 History of coronary artery bypass graft 07/24/2018 VASQUES in situ mammary end to side mid LAD, Vein graft ascending aorta end to side RCA, Vein graft ascending aorta end to side obtuse marginal 1 Hyperlipidemia Peptic ulcer, unspecified site, unspecified as acute or chronic, without mention of hemorrhage, perforation, or obstruction 2004 Unspecified hypothyroidism 1989 PAST SURGICAL HISTORY Procedure Laterality Date ANES HRNA RPR UPR ABD LMBRANDVENTRAL HERNIAANDDEHISC 04/03/[address] Regina Oswald APPENDECTOMY COLONOSCOPY FLX DX W/COLLJ SPEC WHEN PFRMD 06/28/2004 Colonoscopy COLONOSCOPY FLX DX W/COLLJ SPEC WHEN PFRMD 08/06/2015 Colonoscopy CORONARY ARTERY BYPASS GRAFT HX 07/24/2018 VASQUES in situ mammary end to side mid LAD, Vein graft ascending aorta end to side RCA, Vein graft ascending aorta end to side obtuse marginal 1. EGD N/A 06/29/2020 Dr. Keating EGD 05/31/2021 EGD TRANSORAL BIOPSY SINGLE/MULTIPLE 08/30/2009 EGD TRANSORAL BIOPSY SINGLE/MULTIPLE 08/23/2011 repeat in 2 years ESOPHAGOGASTRODUODENO SCOPY TRANSORAL DIAGNOSTIC 10/06/1998 EGD ESOPHAGOGASTRODUODENO SCOPY TRANSORAL DIAGNOSTIC 01/29/2000 EGD ESOPHAGOGASTRODUODENO SCOPY TRANSORAL DIAGNOSTIC 08/04/2003 EGD ESOPHAGOGASTRODUODENO SCOPY TRANSORAL DIAGNOSTIC 08/29/2007 EGD ESOPHAGOGASTRODUODENO SCOPY TRANSORAL DIAGNOSTIC 08/28/2013 EGD ESOPHAGOGASTRODUODENO SCOPY TRANSORAL DIAGNOSTIC 10/08/2017 EGD HEART SURGERY HX HIATAL HERNIA REPAIR HX 08/24/2022 Laparoscopic paraesophageal hernia repair with gastropexy, Primary repair of ventral hernia, EGD LAPAROSCOPIC CHOLECYSTECTOMY 12/15/2018 PAST SURGICAL HISTORY OF N/A 04/25/2017 [facility] and cleaned up arthritis REPAIR UMBILICAL HERNIA 08/24/2022 FAMILY HISTORY Problem Relation Age of Onset Emphysema Father Emphysema Mother other (no cardiac hx per pt) Other Social History Tobacco Use Smoking status: Former Packs/day: 0.50 Years: 27.00 Additional pack years: 0.00 Total pack years: 13.50 Types: Cigarettes Quit date: 1981 Years since quittin.4 Smokeless tobacco: Never Vaping Use Vaping Use: Never used Substance and Sexual Activity Alcohol use: Not Currently Drug use: Never Sexual activity: Yes Partners: Female ALLERGIES Allergen Reactions Lipitor [Atorvastat* Intolerance myalgias Omnicef [Cefdinir] Diarrhea Zithromax [Azithrom* Review of Systems Constitutional: Positive for fever. Negative for chills, diaphoresis and fatigue. HENT: Negative for congestion, facial swelling and rhinorrhea. Eyes: Negative for discharge, redness and visual disturbance. Respiratory: Negative for cough, choking and wheezing. Cardiovascular: Negative for chest pain, palpita (more content not included)... Normal [facility] HISTORY PHYSICALon HISTORY PHYSICAL HNO ID: [id number] Author: SHAREE NOBLE MD Service: Critical Care Author Type: Physician Type: H&P Filed: 07/01/2023 16:42 Note Text: [facility] STAFF PHYSICIAN NOTE OF PERSONAL INVOLVEMENT IN CARE Attending Note I have personally performed a face to face assessment of the patient and have reviewed the ARCHITECTURAL MODELER/resident note and documentation. I personally participated in the lopez components and performed a substantive portion of the visit and collaborated. I have discussed the case and management of the patient's care. The following comments revise or confirm relevant lopez components of the note. Patient seen and examined. Labs, chest imaging, meds reviewed Last CT Chest - Impression Only CT CHEST WO IVCON Exam End: 06/10/2021 10:42 AM (Final result) Impression: IMPRESSION: 1. Unchanged large hiatus hernia. 2. Stable scattered benign lung nodules. No new consolidations or enlarged lymph nodes in the thorax. ... Current Facility-Administered Medications Medication Dose Route Frequency Provider Last Rate Last Admin NaCl 0.9% iv flush bag 20 mL INTRAVENOUS PRN Priscilla Daniels DO piperacillin-tazobact am iv piggyback 3.375 g in dextrose (iso-osmotic) 50 mL (ZOSYN) 3.375 g INTRAVENOUS q 6 H RitzPriscilla DO Stopped at 07/01/23 1002 perflutren lipid microspheres 1.3 mL in NaCl (PF) 0.9% 10 mL injection (DEFINITY) INTRAVENOUS DIRECTED PRN Julián Boothe MD sodium chloride 0.9 % (flush) 10 mL (BD POSIFLUSH) 10 mL INTRAVENOUS DIRECTED PRN Julián Boothe MD Current Outpatient Medications Medication Sig Dispense Refill lisinopril (ZESTRIL) 10 mg tablet take 1 tablet by mouth every day 90 tablet 3 simvastatin (ZOCOR) 80 mg tablet take 1 tablet by mouth everyday at bedtime 90 tablet 3 levothyroxine (LEVOXYL) 175 mcg tablet Take 1 tablet by mouth once daily. Take on empty stomach. For thyroid. [address] (PROTONIX) 40 mg tablet Take 1 tablet by mouth two times a day. Take on empty stomach, 1/2 hr before meal. 180 tablet 3 tamsulosin (FLOMAX) 0.4 mg Take 1 capsule by mouth daily at bedtime. 30 capsule 5 fluticasone (FLONASE) 50 mcg/actuation nasal spray Use 2 Sprays in each nostril once daily. Rinse mouth after use. 16 mL 11 fluticasone-salmetero l HFA (ADVAIR) 115-21 mcg/actuation inhaler INHALE 2 PUFFS INSTRUCTED TWICE DAILY. RINSE MOUTH AFTER USE. 12 Each 5 metoprolol tartrate, short acting, (LOPRESSOR) 25 mg tablet Take 1 tablet by mouth twice daily. 180 tablet 3 aspirin, enteric coated (ASPIRIN, ENTERIC COATED) 325 mg EC tablet Take 1 tablet by mouth once daily. magnesium oxide (MAG-OX) 400 mg (241.3 mg magnesium) tablet Take 1 tablet by mouth once daily. 90 tablet 3 senna-docusate (SENNA-S) 8.6-50 mg per tablet Take 1 tablet by mouth once daily. acetaminophen (TYLENOL) 325 mg tablet Take 2 tablets by mouth every 4 hours as needed. 100 tablet 0 THERAPEUTIC MULTIVITAMIN TAB Take 1 tablet by mouth once daily. 0 LABS: Recent Labs 07/01/23 0917 WBC 20.28* RBC 3.31* HB 9.9* HCT 29.5* MCV 89.1 PLT 99* NEUTP 69.0 LYMPHP 3.0 MONOP 27.0 ABSLYM 0.61* ABSMONO 5.48* ABSEOSIN 0.00 ABSBASO 0.20* GLUC 115* BUN 11 CREAT 0.82 NA 130* K 4.3 CHLOR 98 CO2 22 CA 8.5 ABG: Invalid input(s): [id number] Chest imaging personally reviewed Pex: vitals as noted. BP 107/63 Pulse (!) 112 Temp (!) 38 ?C (100.4 ?F) (Oral) Resp 20 Wt 79.4 kg (175 lb) SpO2 97% BMI 25.84 kg/m? Full exam as per YONATHAN/RESIDENT note. Lungs: clear, no large effusion. ENT: no cervical lymphadenopathy, supple. Abd: nondistended, no rebound, nonsurgical. CV: RRR. No edema. Decent perfusion. Skin: not jaundice. No diaphoresis Mild tachy Alert Sternotomy Vague R abd pain since sun DP + Warm Lap scar Soft abd No ecchymoses flank Lines, Drains, and Airways Line Duration Peripheral Short Left Forearm 20 Gauge -- days Peripheral 07/01/23 0842 [facility] Short Right Forearm 20 Gauge <1 day LEFT VENTRICLE 2022 The left ventricle is normal in size. Left ventricular systolic function is normal. Global LV myocardial strain is normal. Grade I left ventricular diastolic dysfunction. Mitral annular lateral E/e': 10.0. Mitral annular septal E/e': 11.9. Wall Motion: All scored segments are normal. RIGHT VENTRICLE The right ventricle is normal in size. Right ventricular systolic function is normal. RV systolic tissue Doppler velocity is 7.9 cm/s. Tricuspid annular displacement is 2.2 cm. Estimated right ventricular systolic pressure is 35 mmHg consistent with normal pulmonary artery pressures. Estimated right atrial pressure is 3 mmHg based on IVC assessment. LEFT ATRIUM The left atrial cavity is normal in size. RIGHT ATRIUM The right atrial cavity is normal in size. Inferior Vena Cava: The inferior vena cava appears normal measuring 1.4 cm. The vessel decreases greater than 50 percent with inspiration. MITRAL VA (more content not included)... Normal [facility] Hgb Bld-mCncon 07-01-2023 Hemoglobin (Bld) [Mass/Vol] 9.1 g/dL Low 13.0-17.0 [facility] Comment on above: Order Comment: Speci men Type: BLOOD SPECIMENOrdering Facility: [facility] Address: [address] [place] [address] Performed By: #### 7 18-7 ####[facility] LABORATORYCLIA [id number] [address] [place] Hemoglobin (Bld) [Mass/Vol] 9.3 g/dL Low 13.0-17.0 [facility] Comment on above: Order Comment: Speci men Type: BLOOD SPECIMENOrdering Facility: [facility] Address: [address] [place] [address] Performed By: #### 7 18-7 ####[facility] LABORATORYCLIA [id number] [address] STATES [facility] MANUAL DIFFERENTIALon 2023 Acanthocytes LM Ql (Bld) Few Normal [facility] Comment on above: Order Comment: Speci men Type: BLOOD SPECIMENOrdering Facility: [facility] Address: [address] [place] [address] Performed By: #### 5 7021-8, [id number] ####[facility] LABORATORYCLIA [id number] [address] STATES [place] ANC (SEG + BAND) MANUAL DIFF 13.99 k/uL High 1.45-7.50 [facility] Comment on above: Order Comment: Speci men Type: BLOOD SPECIMENOrdering Facility: [facility] Address: [address] [place] [address] Performed By: #### 5 7021-8, [id number] ####[facility]ORATORYCLIA [id number] [address] ANISOCYTOSIS Present Normal [facility] Comment on above: Order Comment: Speci men Type: BLOOD SPECIMENOrdering Facility: [facility] Address: [address] [place] [address] Performed By: #### 5 7021-8, [id number] ####[facility]ATORYCLIA [id number] [place] [address] [place] Basophils (Bld) [#/Vol] 0.20 10*3/uL High <0.11 [facility] Comment on above: Order Comment: Speci men Type: BLOOD SPECIMENOrdering Facility: [facility] Address: [address] [place] [address] Performed By: #### 5 7021-8, [id number] ####[facility]ORYCLIA [id number] [address] STATES [place] Basophils/100 WBC (Bld) 1.0 % Normal [facility] Comment on above: Order Comment: Speci men Type: BLOOD SPECIMENOrdering Facility: [facility] Address: [address] [place] [address] Performed By: #### 5 7021-8, [id number] ####[facility]ATORYCLIA [id number] [address] OF [place] CELLS COUNTED 100 Counted Normal [facility] Comment on above: Order Comment: Speci men Type: BLOOD SPECIMENOrdering Facility: [facility] Address: [address] [place] [address] Performed By: #### 5 7021-8, [id number] ####[facility]ORATORYCLIA [id number] [place] [address] [place] Eosinophils (Bld) [#/Vol] 0.00 10*3/uL Normal <0.46 [facility] Comment on above: Order Comment: Speci men Type: BLOOD SPECIMENOrdering Facility: [facility] Address: [address] [place] [address] Performed By: #### 5 7021-8, [id number] ####[facility]ORATORYCLIA [id number] [place] [address] [place] Eosinophils/100 WBC (Bld) 0.0 % Normal [facility] Comment on above: Order Comment: Speci men Type: BLOOD SPECIMENOrdering Facility: [facility] Address: [address] [place] [address] Performed By: #### 5 7021-8, [id number] ####[facility]ATORYCLIA [id number] [place] [address] [place] Lymphocytes (Bld) [#/Vol] 0.61 10*3/uL Low 1.00-4.00 [facility] Comment on above: Order Comment: Speci men Type: BLOOD SPECIMENOrdering Facility: [facility] Address: [address] [place] [address] Performed By: #### 5 7021-8, [id number] ####[facility] LABORATORYCLIA [id number] [address] STATES [place] Lymphocytes/100 WBC (Bld) 3.0 % Normal [facility] Comment on above: Order Comment: Speci men Type: BLOOD SPECIMENOrdering Facility: [facility] Address: [address] [place] [address] Performed By: #### 5 7021-8, [id number] ####[facility]ATORYCLIA [id number] [place] [address] [place] Monocytes (Bld) [#/Vol] 5.48 10*3/uL High <0.87 [facility] Comment on above: Order Comment: Speci men Type: BLOOD SPECIMENOrdering Facility: [facility] Address: [address] [place] [address] Performed By: #### 5 7021-8, [id number] ####[facility]ATORYCLIA [id number] [address] STATES [place] Monocytes/100 WBC (Bld) 27.0 % Normal [facility] Comment on above: Order Comment: Speci men Type: BLOOD SPECIMENOrdering Facility: [facility] Address: [address] [place] [address] Performed By: #### 5 7021-8, [id number] ####[facility] LABORATORYCLIA [id number] [address] Neutrophils/100 WBC (Bld) 69.0 % Normal [facility] Comment on above: Order Comment: Speci men Type: BLOOD SPECIMENOrdering Facility: [facility] Address: [address] [place] [address] Performed By: #### 5 7021-8, [id number] ####[facility]ORATORYCLIA [id number] [address] STATES [place] Ovalocytes LM Ql (Bld) Few Normal [facility] Comment on above: Order Comment: Speci men Type: BLOOD SPECIMENOrdering Facility: [facility] Address: [address] [place] [address] Performed By: #### 5 7021-8, [id number] ####[facility] LABORATORYCLIA [id number] [place] [address] [place] Platelets Estimate (Bld) [#/Vol] Decreased Normal [facility] Comment on above: Order Comment: Speci men Type: BLOOD SPECIMENOrdering Facility: [facility] Address: [address] [place] [address] Performed By: #### 5 7021-8, [id number] ####[facility]ATORYCLIA [id number] [address] [place] Polychromasia LM Ql (Bld) Slight Normal [facility] Comment on above: Order Comment: Speci men Type: BLOOD SPECIMENOrdering Facility: [facility] Address: [address] [place] [address] Performed By: #### 5 7021-8, [id number] ####[facility]ATORYCLIA [id number] [address] RBC morphology finding Nom (Bld) Reviewed: see results of individual morphologies Normal [facility] Comment on above: Order Comment: Speci men Type: BLOOD SPECIMENOrdering Facility: [facility] Address: [address] [place] [address] Performed By: #### 5 7021-8, [id number] ####[facility] LABORATORYCLIA [id number] [address] [place] PT panel Coag (PPP)on 2023 INR Coag (PPP) [Relative time] 1.1 {INR} Normal 0.9-1.3 [facility] Comment on above: Order Comment: Specvishal byrd Type: BLOOD SPECIMENOrdering Facility: [facility] Address: [address] [place] [address] Result Comment: Hilda min K Antagonist (VKA) Therapeutic Range: INR 2 to 3 (Target INR of 2.5) Note: For patients treated with VKA drugs, such as warfarin, the [employer] Physicians 2012 Guideline recommends a therapeutic INR range of 2 to 3 (target INR of 2.5). This recommendation includes high-risk patients with antiphospholipid syndrome with previous arterial or venous thromboembolism, current-generation mechanical or bioprosthetic aortic heart valve replacement. Note: Patients with mechanical aortic valve replacement and additional risk factors for thromboembolic events (atrial fibrillation, previous thromboembolism, LV dysfunction, hypercoagulable conditions) or an older generation mechanical AVR (i.e., ball in-Cage) or any mechanical MVR should have a INR therapeutic range of 2.5 to 3.5 (target INR of 3). Kely SYKES, et al. Chest 2012, 141:7S-47S Mony RA, et al. [facility] 2017, 70: 252-289 Performed By: #### 3 4528-0 ####[facility] LABORATORYCLIA [id number] [place] [id number] [place] PT Coag (PPP) [Time] 11.9 s Normal 9.7-13.0 [facility] Comment on above: Order Comment: Yogi byrd Type: BLOOD SPECIMENOrdering Facility: [facility] Address: [address] [place] [address] Performed By: #### 3 4528-0 ####[facility] LABORATORYCLIA [id number] [place] [id number] [place] STAPHYLOCOCCUS AUREUS AND MR SA SCREEN, PCR, NASALon 07-01-2023 S. aureus and MRSA panel CHILANGO+probe (Nose) Abnormal Negative [facility] Comment on above: Order Comment: Speci men Type: SWABOrdering Facility: [facility] Address: [address] [place] [address] Result Comment: Posi tive for Staphylococcus aureus by PCR. Negative for MRSA by PCR Performed By: #### S APCR ####[facility] LABORATORYCLIA [id number] [place] [address] [place] [facility] TYPE + SCREENon 07-01-2023 ABO O Normal [facility] Comment on above: Order Comment: Speci men Type: BLOOD SPECIMENOrdering Facility: [facility] Address: [address] [place] [address] Performed By: #### % RICARDO, TSCR ####[facility] BLOOD BANKCLIA [id number] [address] HISTORICAL AB SCR STATUS Positive Abnormal [facility] Comment on above: Order Comment: Speci men Type: BLOOD SPECIMENOrdering Facility: [facility] Address: [address] [place] [address] Performed By: #### % RICARDO, TSCR ####[facility] BLOOD BANKCLIA [id number] [address] OF [place] Rh Nom (Bld) Positive Normal [facility] Comment on above: Order Comment: Speci men Type: BLOOD SPECIMENOrdering Facility: [facility] Address: [address] [place] [address] Performed By: #### % RICARDO, TSCR ####[facility] BLOOD BANKCLIA [id number] [address] OF [facility] TYPE AND SCREEN EXPIRATION 07/04/2023 23:59 Normal [facility] Comment on above: Order Comment: Speci men Type: BLOOD SPECIMENOrdering Facility: [facility] Address: [address] [place] [address] Performed By: #### % RICARDO, TSCR ####[facility] BLOOD BANKCLIA [id number] [address] Urinalysis complete panel (U )on 07-01-2023 Bilirubin Ql (U) Negative Normal Negative [facility] Comment on above: Order Comment: Speci men Type: URINE SPECIMENOrdering Facility: [facility] Address: [address] [place] [address] Performed By: #### 2 4356-8 ####[facility] LABORATORYCLIA [id number] [address] [place] Clarity (Unsp spec) Clear Normal Clear [facility] Comment on above: Order Comment: Speci men Type: URINE SPECIMENOrdering Facility: [facility] Address: [address] [place] [address] Performed By: #### 2 4356-8 ####[facility] [id number] [address] [place] Color (U) Yellow Normal yellow [facility] Comment on above: Order Comment: Speci men Type: URINE SPECIMENOrdering Facility: [facility] Address: [address] [place] [address] Performed By: #### 2 4356-8 ####[facility] LABORATORYCLIA [id number] [address] OF [place] Glucose Test strip (U) [Mass/Vol] Negative Normal Trace, Negative [facility] Comment on above: Order Comment: Speci men Type: URINE SPECIMENOrdering Facility: [facility] Address: [address] [place] [address] Performed By: #### 2 4356-8 ####[facility] LABORATORYCLIA [id number] [address] [place] Hemoglobin Ql (U) 1+ Abnormal Negative, Trace [facility] Comment on above: Order Comment: Speci men Type: URINE SPECIMENOrdering Facility: [facility] Address: [address] [place] [address] Performed By: #### 2 4356-8 ####[facility] LABORATORYCLIA [id number] Ketones Ql (U) 2+ Abnormal Negative, Trace [facility] Comment on above: Order Comment: Speci men Type: URINE SPECIMENOrdering Facility: [facility] Address: [address] [place] [address] Performed By: #### 2 4356-8 ####[facility] LABORATORYCLIA [id number] [address] Leukocyte esterase Test strip Ql (U) Negative Normal Negative, 25 Clementina/uL [facility] Comment on above: Order Comment: Speci men Type: URINE SPECIMENOrdering Facility: [facility] Address: [address] [place] [address] Performed By: #### 2 4356-8 ####[facility] LABORATORYCLIA [id number] [address] Nitrite Ql (U) Negative Normal Negative [facility] Comment on above: Order Comment: Speci men Type: URINE SPECIMENOrdering Facility: [facility] Address: [address] [place] [address] Performed By: #### 2 4356-8 ####[facility] LABORATORYCLIA [id number] [address] pH (U) 6.0 [pH] Normal 5.0-8.0 [facility] Comment on above: Order Comment: Speci men Type: URINE SPECIMENOrdering Facility: [facility] Address: [address] [place] [address] Performed By: #### 2 4356-8 ####[facility] LABORATORYCLIA [id number] [address] Protein (U) [Mass/Vol] 1+ Abnormal Trace , Negative [facility] Comment on above: Order Comment: Speci men Type: URINE SPECIMENOrdering Facility: [facility] Address: [address] [place] [address] Performed By: #### 2 4356-8 ####[facility] LABORATORYCLIA [id number] [address] OF [place] RBC LM.HPF (Urine sed) [#/Area] 6-10 /HPF Abnormal 0-3 /HPF [facility] Comment on above: Order Comment: Speci men Type: URINE SPECIMENOrdering Facility: [facility] Address: [address] [place] [address] Performed By: #### 2 4356-8 ####[facility] LABORATORYCLIA [id number] [address] Specific gravity (U) [Rel density] 1.032 High 1.005-1.030 [facility] Comment on above: Order Comment: Speci men Type: URINE SPECIMENOrdering Facility: [facility] Address: [address] [place] [address] Performed By: #### 2 4356-8 ####[facility] LABORATORYCLIA [id number] [address] Urobilinogen Ql (U) Normal Normal Normal [facility] Comment on above: Order Comment: Speci men Type: URINE SPECIMENOrdering Facility: [facility] Address: [address] [place] [address] Performed By: #### 2 4356-8 ####[facility] LABORATORYCLIA [id number] [address] WBC LM.HPF (Urine sed) [#/Area] 0-5 /HPF Normal 0-5 /HPF [facility] Comment on above: Order Comment: Speci men Type: URINE SPECIMENOrdering Facility: [facility] Address: [address] [place] [address] Performed By: #### 2 4356-8 ####[facility] LABORATORYCLIA [id number] [address] OF [place] XR CHEST 1V FRONTALon 2023 XR CHEST 1V FRONTAL * * *Final Report* * * DATE OF EXAM: Jul 01 2023 11:12AM AKX [id number] - XR CHEST 1V FRONTAL / PROCEDURE REASON: Shortness of breath * * * * Physician Interpretation * * * * EXAM TITLE: AP/PA CHEST X RAY COMPARISON: 09/04/2022. CLINICAL HISTORY: Shortness of breath ENCOUNTER: Not applicable MQ: [id number] RESULT: Lines, tubes, and devices: Examination limited due to overlying EKG leads. Lungs and pleura: Again demonstrated is elevation of the right hemidiaphragm. No discrete focal airspace consolidation, effusion or pneumothorax. Cardiomediastinal silhouette: Cardiac silhouette not enlarged. Status post median sternotomy, hardware intact. 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 Other: Osseous structures and soft tissues grossly intact. Cholecystectomy clips. IMPRESSION: No radiographic findings to suggest acute cardiopulmonary process. Data Collection Associate: PSCB Transcribe Date/Time: Jul 01 2023 11:15A Dictated by : ANIYA BUTTERFIELD MD This examination was interpreted and the report reviewed and electronically signed by: ANIYA BUTTERFIELD MD on Jul 01 2023 11:20AM EST [id number] N Normal [facility] UA DIP, URINE (POC)on 2023 BILIRUBIN UA (POCT) Negative Negative [facility] CLARITY UA (POCT) Slightly Cloudy Cl [facility] COLOR UA (POCT) Dark yellow [facility] GLUCOSE UA (POCT) Negative Negative mg/dL [facility] Hemoglobin Ql (U) Negative Negative [facility] KETONE UA (POCT) Negative Negative mg/dL [facility] LEUKOCYTES UA (POCT) Negative Negative [facility] NITRITE UA (POCT) Negative Negative [facility] PH UA (POCT) 6.5 4.5 - 8.0 [facility] Protein Ql (U) Trace Abnormal Negative mg/dL [facility] SPECIFIC GRAVITY UA (POCT) 1.025 1.005 - 1.030 [facility] UROBILINOGEN UA (POCT) 0.2 E.U./dL Shawanda l E.U./dL [facility] CBC panel Auto (Bld)on 05-07 Erythrocyte distribution width (RBC) [Ratio] 14.6 % 11.5 - 15.0 % [facility] Hematocrit (Bld) [Volume fraction] 32.8 % Low 39.0 - 51.0 % [facility] Hemoglobin (Bld) [Mass/Vol] 10.8 g/dL Low 13.0 - 17.0 g/dL [facility] MCH (RBC) [Entitic mass] 29.6 pg 26.0 - 34.0 pg [facility] MCHC (RBC) [Mass/Vol] 32.9 g/dL 30.5 - 36.0 g/dL [facility] MCV (RBC) [Entitic vol] 89.9 fL 80.0 - 100.0 fL [facility] Nucleated RBC (Bld) [#/Vol] <0.01 k/uL [facility] Platelet mean volume (Bld) [Entitic vol] 10.8 fL 9.0 - 12.7 fL [facility] Platelets (Bld) [#/Vol] 128 10*3/uL Low 150 - 400 k/uL [facility] RBC (Bld) [#/Vol] 3.65 10*6/uL Low 4.20 - 6.0 0 m/uL [facility] WBC (Bld) [#/Vol] 7.63 10*3/uL 3.70 - 11. 00 k/uL [facility] Comprehensive metabolic 2000 panelon 05-08-2023 Albumin [Mass/Vol] 4.1 g/dL 3.9 - 4.9 g/dL [facility] ALP [Catalytic activity/Vol] 86 U/L 38 - 113 U/L [facility] ALT [Catalytic activity/Vol] 14 U/L 10 - 54 U/L [facility] Anion gap [Moles/Vol] 9 mmol/L 9 - 18 mmol/L [facility] AST [Catalytic activity/Vol] 22 U/L 14 - 40 U/L [facility] Bilirubin [Mass/Vol] 0.5 mg/dL 0.2 - 1 .3 mg/dL [facility] Calcium [Mass/Vol] 9.2 mg/dL 8.5 - 10. 2 mg/dL [facility] Chloride [Moles/Vol] 97 mmol/L 97 - 10 5 mmol/L [facility] CO2 [Moles/Vol] 24 mmol/L 22 - 30 mmol/L [facility] Creatinine [Mass/Vol] 0.85 mg/dL 0.73 - 1.22 mg/dL [facility] Estimated Glomerular Filtration Rate 88 mL/min/1.73m >=60 mL/min/1.73m [facility] Glucose [Mass/Vol] 107 mg/dL High 74 - 99 mg/dL [facility] Potassium [Moles/Vol] 4.1 mmol/L 3.7 - 5.1 mmol/L [facility] Protein [Mass/Vol] 6.5 g/dL 6.3 - 8.0 g/dL [facility] Sodium [Moles/Vol] 130 mmol/L Low 136 - 144 mmol/L [facility] Urea nitrogen [Mass/Vol] 13 mg/dL 9 - 24 mg/dL [facility] TSH BLDon 05-08-2023 TSH Qn 0.129 m[IU]/L Low 0.270 - 4.200 mIU/L [facility] CBC W Auto Differential pane l (Bld)on 03-28-2023 Basophils (Bld) [#/Vol] <0.11 k/uL [facility] Basophils/100 WBC (Bld) 0.4 % [facility] Differential cell count method Nom (Bld) Auto [facility] Eosinophils (Bld) [#/Vol] 0.13 10*3/uL <0.46 k/uL [facility] Eosinophils/100 WBC (Bld) 2.5 % [facility] Erythrocyte distribution width (RBC) [Ratio] 14.2 % 11.5 - 15.0 % [facility] Hematocrit (Bld) [Volume fraction] 35.4 % Low 39.0 - 51.0 % [facility] Hemoglobin (Bld) [Mass/Vol] 11.7 g/dL Low 13.0 - 17.0 g/dL [facility] Immature granulocytes (Bld) [#/Vol] 0.03 10*3/uL <0.10 k/uL [facility] Immature granulocytes/100 WBC (Bld) 0.6 % [facility] Lymphocytes (Bld) [#/Vol] 0.65 10*3/uL Low 1.00 - 4.00 k/uL [facility] Lymphocytes/100 WBC (Bld) 12.3 % [facility] MCH (RBC) [Entitic mass] 29.8 pg 26.0 - 34.0 pg [facility] MCHC (RBC) [Mass/Vol] 33.1 g/dL 30.5 - 36.0 g/dL [facility] MCV (RBC) [Entitic vol] 90.1 fL 80.0 - 100.0 fL [facility] Monocytes (Bld) [#/Vol] 0.86 10*3/uL <0.87 k/uL [facility] Monocytes/100 WBC (Bld) 16.3 % [facility] Neutrophils (Bld) [#/Vol] 3.59 10*3/uL 1.45 - 7.50 k/uL [facility] Neutrophils/100 WBC (Bld) 67.9 % [facility] Nucleated RBC (Bld) [#/Vol] <0.01 k/uL [facility] Nucleated RBC/100 WBC (Bld) [Ratio] 0.0 /100 WBC [facility] Platelet mean volume (Bld) [Entitic vol] 11.0 fL 9.0 - 12.7 fL [facility] Platelets (Bld) [#/Vol] 122 10*3/uL Low 150 - 400 k/uL [facility] RBC (Bld) [#/Vol] 3.93 10*6/uL Low 4.20 - 6.0 0 m/uL [facility] WBC (Bld) [#/Vol] 5.28 10*3/uL 3.70 - 11. 00 k/uL [facility] Comprehensive metabolic 2000 panelon 03-28-2023 Albumin [Mass/Vol] 4.2 g/dL 3.9 - 4.9 g/dL [facility] ALP [Catalytic activity/Vol] 84 U/L 38 - 113 U/L [facility] ALT [Catalytic activity/Vol] 17 U/L 10 - 54 U/L [facility] Anion gap [Moles/Vol] 6 mmol/L Low 9 - 18 mmol/L [facility] AST [Catalytic activity/Vol] 28 U/L 14 - 40 U/L [facility] Bilirubin [Mass/Vol] 0.6 mg/dL 0.2 - 1 .3 mg/dL [facility] Calcium [Mass/Vol] 9.6 mg/dL 8.5 - 10. 2 mg/dL [facility] Chloride [Moles/Vol] 97 mmol/L 97 - 10 5 mmol/L [facility] CO2 [Moles/Vol] 26 mmol/L 22 - 30 mmol/L [facility] Creatinine [Mass/Vol] 0.93 mg/dL 0.73 - 1.22 mg/dL [facility] Estimated Glomerular Filtration Rate 83 mL/min/1.73m >=60 mL/min/1.73m [facility] Glucose [Mass/Vol] 106 mg/dL High 74 - 99 mg/dL [facility] Potassium [Moles/Vol] 5.1 mmol/L 3.7 - 5.1 mmol/L [facility] Protein [Mass/Vol] 6.4 g/dL 6.3 - 8.0 g/dL [facility] Sodium [Moles/Vol] 129 mmol/L Low 136 - 144 mmol/L [facility] Urea nitrogen [Mass/Vol] 18 mg/dL 9 - 24 mg/dL [facility] XR ESOPHAGRAMon 11-10-2022 [facility] EGD DIAGNOSTICon 08-23-[address] [facility] [address] ABD/PEL WO IVCONon 2022 [facility] EGD DIAGNOSTICon 04-18-2022 [facility] No Panel Informationon 12-05 [facility] XR ELBOW GENERAL 2V AP/LAT L EFTon 12-05-2021 [facility] Absolute lymphocyte counton 09-19-2021 Lymphocytes Auto (Unsp spec) [#/Vol] 0.39 10*3/uL 0.83-4.51 [facility] Work Phone: Basophil percentageon 2021 Basophils/100 WBC (Bld) 0.6 % 0-1 [facility] Work Phone: Chloride [Moles/Vol] 98 mmol/L 98-107 [facility] Work Phone: Eosinophils/100 WBC (Bld) 4.2 % 0-5 [facility] Work Phone: Glucose [Mass/Vol] 101 mg/dL 74-106 [facility] Work Phone: Comment on above: Fasting Glucose resu lt from 100 to 125 mg/dL suggests IMPAIRED HOMEOSTASIS per A.D.A. criteria. Neutrophils (Bld) [#/Vol] 5.5 10*3/uL 2.0-7.7 [facility] Work Phone: Neutrophils/100 WBC (Bld) 77.5 % 47-70 [facility] Work Phone: Potassium [Moles/Vol] 4.2 mmol/L 3.5-5.1 [facility] Work Phone: Sodium [Moles/Vol] 128 mmol/L 136-145 [facility] Work Phone: [phone] WBC (Bld) [#/Vol] 7.1 10*3/uL 4.4-11.0 [facility] Work Phone: Blood erythrocytes count (nu mber/volume)on 09-19-2021 RBC (Bld) [#/Vol] 3.59 10*6/uL 4.6-6.2 [facility]: Blood hemoglobin measurement (mass/volume)on 09-19-2021 Hemoglobin (Bld) [Mass/Vol] 10.7 g/dL 13.0-16.5 [facility] Work Phone: [phone] Blood lymphocytes/100 leukoc yteson 09-19-2021 Lymphocytes/100 WBC (Bld) 5.5 % 19-41 [facility] Work Phone: [phone] Blood monocytes/100 leukocyt eson 09-19-2021 Monocytes/100 WBC (Bld) 11.9 % 0-10 [facility] Work Phone: Blood platelet mean volumeon 09-19-2021 Platelet mean volume (Bld) [Entitic vol] 11.2 fL 6.2-12.0 [facility] Work Phone: Determination of erythrocyte mean corpuscular volume (MCV)on 09-19-2021 MCV (RBC) [Entitic vol] 90.3 fL 80-94 [facility] Work Phone: [phone] Hematocrit Auto (Bld) [Volum e fraction]on 09-19-2021 Hematocrit (Bld) [Volume fraction] 32.4 % 40-54 [facility] Work Phone: Laboratory - Chemistry and C hemistry - challengeon 09-19-2021 CO2 [Moles/Vol] 24.0 mmol/L 21.0-32.0 [facility] Work Phone: Magnesium [Mass/Vol] 2.1 mg/dL 1.6-2.6 [facility] Work Phone: [phone] Urea nitrogen/Creatinine [Mass ratio] 20.1 mg/mg 10-20 [facility] Work Phone: [phone] Laboratory - Hematology and Cell countson 09-19-2021 Anisocytosis Ql (Bld) 1+ [facility] Work Phone: [phone] Erythrocyte distribution width (RBC) [Entitic vol] 50.4 fL 35.1-43.9 [facility] Work Phone: [phone] Erythrocyte distribution width (RBC) [Ratio] 15.4 % 11.6-14.6 [facility] Work Phone: [phone] Immature granulocytes/100 WBC (Bld) 0.300 % 0.0-0.9 [facility] Work Phone: [phone] Comment on above: IG% - Immature Granu locytes (promyelocytes, myelocytes and metamyelocytes) > 1% indicates that a LEFT SHIFT is Present. MCH (RBC) [Entitic mass] 29.8 pg 27.0-32.0 [facility] Work Phone: [phone] Nucleated RBC/100 WBC (Bld) [Ratio] 0 % 0-5 [facility] Work Phone: [phone] MCHC Auto (RBC) [Mass/Vol]on 09-19-2021 MCHC (RBC) [Mass/Vol] 33.0 g/dL 32-36 [facility] Work Phone: No Panel Informationon 09-19 Estimated Creatinine Clearance Calc 60.88 ml/min [facility] Work Phone: [phone] Estimated GFR (MDRD) Amer 153 mL/min >60 [facility] Work Phone: [phone] Comment on above: GFR Calc Estimated GFR (MDRD) Non-Af Amer 127 mL/min >60 [facility] Work Phone: [phone] Comment on above: Non- GFR Calc Platelets bldon 09-19-2021 Platelets (Bld) [#/Vol] 198 10*3/uL 150-450 [facility] Work Phone: Serum or plasma calcium tamara urement (mass/volume)on 09-19-2021 Calcium [Mass/Vol] 8.5 mg/dL 8.5-10.1 [facility] Work Phone: Serum or plasma creatinine m easurement (mass/volume)on 09-19-2021 Creatinine [Mass/Vol] 0.65 mg/dL 0.70-1.30 [facility] Work Phone: Comment on above: The validity of the calculated GFR & GFRAA in patients over 70 years has not been determined. Clinical correlation is essential. Serum or plasma urea nitroge n measurement (mass/volume)on 09-19-2021 Urea nitrogen [Mass/Vol] 13 mg/dL 7-18 [facility] Work Phone: Thin prep Papanicolaou smear with manual screeningon 09-19-2021 Thin prep Papanicolaou smear with manual screening 6 5-15 [facility] Work Phone: Basophil percentageon 2021 Cholesterol [Mass/Vol] 120 mg/dL <200 [facility] Work Phone: Comment on above: <200 mg/dL Desirable 200-240 mg/dL Borderline >240 mg/dL High Risk Triglyceride [Mass/Vol] 67 mg/dL <199 [facility] Work Phone: Comment on above: The drugs N-Acetylcy steine and Metamizole may falsely depress this assay.Serum Triglycerides Reference Interval Normal <150 mg/dL Borderline high 150 - 199 mg/dL High 200 - 499 mg/dL Very High > or = 500 mg/dL Blood manual differential co mment interpretation (narrative result)on 09-18-2021 Manual differential comment Edi (Bld) [Interp] SCANNED [facility] Work Phone: No Panel Informationon 09-18 Thyroid Stimulating Hormone (TSH) 0.67 uIU/mL 0.358-3.74 [facility] Work Phone: Serum or plasma cholesterol in HDL measurement (mass/volume)on 09-18-2021 Cholesterol in HDL [Mass/Vol] 61 mg/dL >40 [facility] Work Phone: Comment on above: The drugs N-Acetylcy steine and Metamizole may falsely depress this assay. Reference Range HDL <40 mg/dL Low HDL Cholesterol HDL >or= 60 mg/dL High HDL Cholesterol Serum or plasma cholesterol in VLDL measurement (mass/volume)on 09-18-2021 Cholesterol in VLDL [Mass/Vol] 13 mg/dL 5-40 [facility] Work Phone: Serum or plasma low density lipoprotein (LDL) cholesterol measurement (mass/volume)on 09-18-2021 Cholesterol in LDL [Mass/Vol] 46 mg/dL 0-130 [facility] Work Phone: Absolute lymphocyte counton 09-17-2021 Lymphocytes Auto (Unsp spec) [#/Vol] 0.58 10*3/uL 0.83-4.51 [facility] Work Phone: Basophil percentageon 2021 Basophils/100 WBC (Bld) 0.4 % 0-1 [facility] Work Phone: Chloride [Moles/Vol] 97 mmol/L 98-107 [facility] Work Phone: Eosinophils/100 WBC (Bld) 3.4 % 0-5 [facility] Work Phone: Glucose [Mass/Vol] 123 mg/dL 74-106 [facility] Work Phone: Comment on above: Fasting Glucose resu lt from 100 to 125 mg/dL suggests IMPAIRED HOMEOSTASIS per A.D.A. criteria. Neutrophils (Bld) [#/Vol] 6.0 10*3/uL 2.0-7.7 [facility] Work Phone: Neutrophils/100 WBC (Bld) 78.8 % 47-70 [facility] Work Phone: Potassium [Moles/Vol] 4.4 mmol/L 3.5-5.1 [facility] Work Phone: Sodium [Moles/Vol] 128 mmol/L 136-145 [facility] Work Phone: WBC (Bld) [#/Vol] 7.6 10*3/uL 4.4-11.0 [facility] Work Phone: Blood erythrocytes count (nu mber/volume)on 09-17-2021 RBC (Bld) [#/Vol] 3.60 10*6/uL 4.6-6.2 [facility] Work Phone: Blood hemoglobin measurement (mass/volume)on 09-17-2021 Hemoglobin (Bld) [Mass/Vol] 11.0 g/dL 13.0-16.5 [facility] Work Phone: Blood lymphocytes/100 leukoc yteson 09-17-2021 Lymphocytes/100 WBC (Bld) 7.7 % 19-41 [facility] Work Phone: Blood manual differential co mment interpretation (narrative result)on 09-17-2021 Manual differential comment Edi (Bld) [Interp] SCANNED [facility] Work Phone: Blood monocytes/100 leukocyt eson 09-17-2021 Monocytes/100 WBC (Bld) 9.2 % 0-10 [facility] Work Phone: Blood platelet mean volumeon 09-17-2021 Platelet mean volume (Bld) [Entitic vol] 10.8 fL 6.2-12.0 [facility] Work Phone: Determination of erythrocyte mean corpuscular volume (MCV)on 09-17-2021 MCV (RBC) [Entitic vol] 90.6 fL 80-94 [facility] Work Phone: Hematocrit Auto (Bld) [Volum e fraction]on 09-17-2021 Hematocrit (Bld) [Volume fraction] 32.6 % 40-54 [facility] Work Phone: Laboratory - Chemistry and C hemistry - challengeon 09-17-2021 CO2 [Moles/Vol] 24.0 mmol/L 21.0-32.0 [facility] Work Phone: Urea nitrogen/Creatinine [Mass ratio] 15.1 mg/mg 10-20 [facility] Work Phone: [phone] Laboratory - Hematology and Cell countson 09-17-2021 Erythrocyte distribution width (RBC) [Entitic vol] 50.1 fL 35.1-43.9 [facility] Work Phone: [phone] Erythrocyte distribution width (RBC) [Ratio] 15.2 % 11.6-14.6 [facility] Work Phone: [phone] Immature granulocytes/100 WBC (Bld) 0.500 % 0.0-0.9 [facility] Work Phone: [phone] Comment on above: IG% - Immature Granu locytes (promyelocytes, myelocytes and metamyelocytes) > 1% indicates that a LEFT SHIFT is Present. MCH (RBC) [Entitic mass] 30.6 pg 27.0-32.0 [facility] Work Phone: [phone] Nucleated RBC/100 WBC (Bld) [Ratio] 0 % 0-5 [facility] Work Phone: [phone] MCHC Auto (RBC) [Mass/Vol]on 09-17-2021 MCHC (RBC) [Mass/Vol] 33.7 g/dL 32-36 [facility] Work Phone: [phone] No Panel Informationon 09-17 Estimated Creatinine Clearance Calc 61.20 ml/min [facility] Work Phone: [phone] Estimated GFR (MDRD) Amer 101 mL/min >60 [facility] Work Phone: [phone] Comment on above: GFR Calc Estimated GFR (MDRD) Non-Af Amer 83 mL/min >60 [facility] Work Phone: [phone] Comment on above: Non- GFR Calc Troponin I High Sensitivity 5 pg/mL 3.0-78.0 [facility] Work Phone: [phone] Comment on above: Please Note: New Sybli t Units and Gender Specific Reference Ranges. For more information see Policy Stat Procedure [place] High Sensitivity Troponin (TNIH) and attachments. Platelets bldon 09-17-2021 Platelets (Bld) [#/Vol] 188 10*3/uL 150-450 [facility] Work Phone: Serum or plasma calcium tamara urement (mass/volume)on 09-17-2021 Calcium [Mass/Vol] 8.5 mg/dL 8.5-10.1 [facility] Work Phone: Serum or plasma creatinine m easurement (mass/volume)on 09-17-2021 Creatinine [Mass/Vol] 0.93 mg/dL 0.70-1.30 [place] [facility] Work Phone: Comment on above: The validity of the calculated GFR & GFRAA in patients over 70 years has not been determined. Clinical correlation is essential. Serum or plasma urea nitroge n measurement (mass/volume)on 09-17-2021 Urea nitrogen [Mass/Vol] 14 mg/dL 7-18 [facility] Work Phone: Thin prep Papanicolaou smear with manual screeningon 09-17-2021 Thin prep Papanicolaou smear with manual screening 7 5-15 [facility] Work Phone: CT CHEST WO IVCONon 06-11-19 [facility] XR Chest PA and Lateralon Addendum by Provider , [facility] [place] on 11/08/2020 2:43 PM EDT * * *Final Report* * * * * * SEE BOTTOM OF REPORT FOR ADDENDED TEXT * * * DATE OF EXAM: Nov 08 2020 12:13PM WOX [id number] - XR CHEST 2V FRONTAL/LAT / PROCEDURE REASON: Cough * * * * Physician Interpretation * * * * * * * * * * * * ORIGINAL REPORT * * * * * * * * EXAMINATION: CHEST RADIOGRAPH (2 VIEW FRONTAL & LATERAL) CLINICAL HISTORY: Cough MQ: XC2_6 EXAM DATE/TIME: 11/08/2020 12:13 PM COMPARISON: 07/18/2018 RESULT: Lines, tubes, and devices: Sternotomy wires overlie the chest from prior cardiothoracic surgery. Lungs and pleura: There is poor inspiration and crowding of the bronchovascular markings. No confluent infiltrate, effusion, or pneumothorax identified. Cardiomediastinal silhouette: Suboptimal evaluation the cardiac silhouette secondary to poor inspiration. Mediastinal silhouette is within normal limits. Bones and soft tissues: Hiatal hernia. Endplate osteophytes at multiple levels in the thoracic spine. IMPRESSION: Acute pulmonary disease identified. Hiatal hernia. * * * * * * * * ADDENDUM #1 * * * * * * * * Speech recognition error. Impression: No acute pulmonary disease identified. Data Collection Associate: ELAINE Transcribe Date/Time: Nov 08 2020 2:40P Dictated by : EDIN HANSEN MD This examination was interpreted and the report reviewed and electronically signed by: EDIN HANSEN MD on Nov 08 2020 12:22PM EST This document has been addended by: EDIN HANSEN MD on Nov 08 2020 2:41PM EST [facility] Radiology Study observation (narrative) Aaliyah brito [facility] XR Chest PA and LateralOrder ed By: [facility] Provider on 11-08-2020 [facility] Basic Panelon 12-24-2018 Creatinine [Mass/Vol] 0.71 mg/dL Normal 0.67-1.17 [facility] Comment on above: Performed By: #### R BCPS #### [address] [address] Anion gap [Moles/Vol] 10 mmol/L Normal 8-16 [facility] Comment on above: Performed By: #### R BCPS #### [address] [address] CO2 [Moles/Vol] 24 mmol/L Normal 21-32 [facility] Comment on above: Performed By: #### R BCPS #### [address] [address] Glucose [Mass/Vol] 97 mg/dL Normal 70-99 [facility] Comment on above: Performed By: #### R BCPS #### [address] [address] Urea nitrogen [Mass/Vol] 16 mg/dL Normal 7-18 [facility] Comment on above: Performed By: #### R BCPS #### [address] [address] Calcium [Mass/Vol] 8.0 mg/dL Low 8.5-10.1 [facility] Comment on above: Performed By: #### R BCPS #### [facility] [address] [place] [address] Chloride [Moles/Vol] 106 mmol/L Normal 98-107 [facility] Comment on above: Performed By: #### R BCPS #### [place] [address] Potassium [Moles/Vol] 3.7 mmol/L Normal 3.5-5.1 [facility] Comment on above: Performed By: #### R BCPS #### [place] [address] Sodium [Moles/Vol] 136 mmol/L Normal 136-145 [facility] Comment on above: Performed By: #### R BCPS #### [place] [address] Hemogram/Diffon 12-24-2018 Abs Neut (ANC) 12.62 thou/cmm High 1.78-5.38 [facility] Comment on above: Performed By: #### R BCPS #### [place] [address] Abs. Baso 0.00 thou/cmm Low 0.01-0.08 [facility] Comment on above: Performed By: #### R BCPS #### [place] [address] Abs. Story 0.77 thou/cmm Normal 0.30-0.82 [facility] Comment on above: Performed By: #### R BCPS #### [place] [address] Anisocytosis Ql (Bld) Few Normal [facility] Comment on above: Performed By: #### R BCPS #### [place] [address] Basophils/100 WBC (Bld) 0.0 % Normal [facility] Comment on above: Performed By: #### R BCPS #### [address] [place], [place] [address] Elliptocytosis Few Normal [facility] Comment on above: Performed By: #### R BCPS #### [facility] [address] [place], [place] [address] Eosinophils (Bld) [#/Vol] 0.46 thou/cmm Normal 0.04-0.54 [facility] Comment on above: Performed By: #### R BCPS #### [facility] [address] [place], [place] [address] Eosinophils/100 WBC (Bld) 3.0 % Normal [facility] Comment on above: Performed By: #### R BCPS #### [facility] [address] [place] [address] Immat Grans Abs calc 0.77 thou/cmm High 0.00-0.05 [facility] Comment on above: Performed By: #### R BCPS #### [facility] [address] [place], [place] [address] Lymphocytes (Bld) [#/Vol] 0.77 thou/cmm Low 0.84-2.85 [facility] Comment on above: Performed By: #### R BCPS #### [facility] [address] [place], [place] [address] Lymphocytes/100 WBC (Bld) 5.0 % Normal [facility] Comment on above: Performed By: #### R BCPS #### [facility] [address] [place], [place] [address] Metamyelocytes 3.0 % Normal [facility] Comment on above: Performed By: #### R BCPS #### [facility] [address] [place], [place] [address] Metamyelocytes/100 WBC (Bld) 2.0 % Normal [facility] Comment on above: Performed By: #### R BCPS #### [facility] [address] [place], [place] [address] Monocytes/100 WBC (Bld) 5.0 % Normal [facility] Comment on above: Performed By: #### R BCPS #### [facility] [address] [place] [address] RBC morphology finding Nom (Bld) Present Normal [facility] Comment on above: Performed By: #### R BCPS #### [facility] [address] [place] [address] Seg Neutrophil 82.0 % Normal [facility] Comment on above: Performed By: #### R BCPS #### [facility] [address] [place] [address] Erythrocyte distribution width (RBC) [Ratio] 16.2 % High 11.6-14.4 [facility] Comment on above: Performed By: #### R BCPS #### [facility] [address] [place] [address] Hematocrit (Bld) [Volume fraction] 27.7 % Low 40.1-51.0 [facility] Comment on above: Performed By: #### R BCPS #### [facility] [address] [place] [address] Hemoglobin (Bld) [Mass/Vol] 8.9 g/dL Low 13.7-17.5 [facility] Comment on above: Performed By: #### R BCPS #### [facility] [address] [place] [address] MCH (RBC) [Entitic mass] 33.1 pg High 25.7-32.2 [facility] Comment on above: Performed By: #### R BCPS #### [facility] [address] [place] [address] MCHC (RBC) [Mass/Vol] 32.1 % Low 32.3-36.5 [facility] Comment on above: Performed By: #### R BCPS #### [facility] [address] [place] [address] MCV (RBC) [Entitic vol] 103.0 fL High 83.2-95.6 [facility] Comment on above: Performed By: #### R BCPS #### [place] [address] Nucleated RBC (Bld) [#/Vol] 0.05 thou/cmm High 0.00-0.01 [facility] Comment on above: Performed By: #### R BCPS #### [facility] [address] [place], [place] [address] Nucleated RBC/100 WBC (Bld) [Ratio] 0.3 % High 0.0-0.2 [facility] Comment on above: Performed By: #### R BCPS #### [facility] [address] [place], [place] [address] Platelet mean volume (Bld) [Entitic vol] 10.3 fL Normal 8.7-12.0 [facility] Comment on above: Performed By: #### R BCPS #### [facility] [address] [place], [place] [address] Platelets (Bld) [#/Vol] 404 thou/cmm High 141-365 [facility] Comment on above: Performed By: #### R BCPS #### [facility] [address] [place], [place] [address] RBC (Bld) [#/Vol] 2.69 mil/cmm Low 4.63-6.08 [facility] Comment on above: Performed By: #### R BCPS #### [facility] [address] [place], [place] [address] RDW SD 60.2 fl High 36.1-45.8 [facility] Comment on above: Performed By: #### R BCPS #### [facility] [address] [place], [place] [address] WBC (Bld) [#/Vol] 15.39 thou/cmm High 4.23-9.07 [facility] Comment on above: Performed By: #### R BCPS #### [facility] [address] [place], [place] [address] MDRD GFRon 12-24-2018 GFR/1.73 sq M predicted among non-blacks MDRD (S/P/Bld) [Vol rate/Area] mL/min/{1.73_m2} Normal >60mL/min/1. 73m2 [facility] Comment on above: Result Comment: If t he patient is , multiply the result by 1.210. Performed By: #### G FR #### [facility] [address] [place], [place] [address] Basic Panelon 2018 Creatinine [Mass/Vol] 0.57 mg/dL Low 0.67-1.17 [facility] Comment on above: Performed By: #### G FR #### [facility] [address] [place], [place] [address] Anion gap [Moles/Vol] 9 mmol/L Normal 8-16 [facility] Comment on above: Performed By: #### G FR #### [facility] [address] [place], [place] [address] Calcium [Mass/Vol] 7.8 mg/dL Low 8.5-10.1 [facility] Comment on above: Performed By: #### G FR #### [facility] [address] [place], [place] [address] CO2 [Moles/Vol] 26 mmol/L Normal 21-32 [facility] Comment on above: Performed By: #### G FR #### [facility] [address] [place], [place] [address] Glucose [Mass/Vol] 94 mg/dL Normal 70-99 [facility] Comment on above: Performed By: #### G FR #### [facility] [address] [place], [place] [address] Urea nitrogen [Mass/Vol] 15 mg/dL Normal 7-18 [facility] Comment on above: Performed By: #### G FR #### [facility] [address] [place], [place] [address] Chloride [Moles/Vol] 106 mmol/L Normal 98-107 [facility] Comment on above: Performed By: #### G FR #### [facility] [address] [place], [place] [address] Potassium [Moles/Vol] 3.8 mmol/L Normal 3.5-5.1 [facility] Comment on above: Performed By: #### G FR #### [facility] [address] [place], [place] [address] Sodium [Moles/Vol] 137 mmol/L Normal 136-145 [facility] Comment on above: Performed By: #### G FR #### [facility] [address] [place] [address] Hemogram/Diffon 2018 Abs Neut (ANC) 17.58 thou/cmm High 1.78-5.38 [facility] Comment on above: Performed By: #### G FR #### [place] [address] Abs. Baso 0.00 thou/cmm Low 0.01-0.08 [facility] Comment on above: Performed By: #### G FR #### [place] [address] Abs. Story 0.19 thou/cmm Low 0.30-0.82 [facility] Comment on above: Performed By: #### G FR #### [place] [address] Anisocytosis Ql (Bld) Slight Normal [facility] Comment on above: Performed By: #### G FR #### [place] [address] Basophils/100 WBC (Bld) 0.0 % Normal [facility] Comment on above: Performed By: #### G FR #### [place] [address] Eosinophils (Bld) [#/Vol] 0.19 thou/cmm Normal 0.04-0.54 [facility] Comment on above: Performed By: #### G FR #### [place] [address] Eosinophils/100 WBC (Bld) 1.0 % Normal [facility] Comment on above: Performed By: #### G FR #### [place] [address] Immat Grans Abs calc 0.57 thou/cmm High 0.00-0.05 [facility] Comment on above: Performed By: #### G FR #### [place] [address] Lymphocytes (Bld) [#/Vol] 0.57 thou/cmm Low 0.84-2.85 [facility] Comment on above: Performed By: #### G FR #### [facility] [address] [place], [place] [address] Lymphocytes/100 WBC (Bld) 3.0 % Normal [facility] Comment on above: Performed By: #### G FR #### [facility] [address] [place], [place] [address] Metamyelocytes/100 WBC (Bld) 2.0 % Normal [facility] Comment on above: Performed By: #### G FR #### [facility] [address] [place], [place] [address] Monocytes/100 WBC (Bld) 1.0 % Normal [facility] Comment on above: Performed By: #### G FR #### [facility] [address] [place], [place] [address] Promyelocyte Abs calc. 0.19 thou/cmm Normal [facility] Comment on above: Performed By: #### G FR #### [facility] [address] [place], [place] [address] Promyelocytes 1.0 % Normal [facility] Comment on above: Performed By: #### G FR #### [facility] [address] [place], [place] [address] RBC morphology finding Nom (Bld) Present Normal [facility] Comment on above: Performed By: #### G FR #### [facility] [address] [place], [place] [address] Seg Neutrophil 92.0 % Normal [facility] Comment on above: Performed By: #### G FR #### [facility] [address] [place], [place] [address] Erythrocyte distribution width (RBC) [Ratio] 15.9 % High 11.6-14.4 [facility] Comment on above: Performed By: #### G FR #### [facility] [address] [place], [place] [address] Hematocrit (Bld) [Volume fraction] 25.9 % Low 40.1-51.0 [facility] Comment on above: Performed By: #### G FR #### [facility] [address] [place], [place] [address] Hemoglobin (Bld) [Mass/Vol] 8.6 g/dL Low 13.7-17.5 [facility] Comment on above: Performed By: #### G FR #### [facility] [address] [place], [place] [address] MCH (RBC) [Entitic mass] 34.0 pg High 25.7-32.2 [facility] Comment on above: Performed By: #### G FR #### [facility] [address] [place] [address] MCHC (RBC) [Mass/Vol] 33.2 % Normal 32.3-36.5 [facility] Comment on above: Performed By: #### G FR #### [facility] [address] [place] [address] MCV (RBC) [Entitic vol] 102.4 fL High 83.2-95.6 [facility] Comment on above: Performed By: #### G FR #### [facility] [address] [place] [address] Nucleated RBC (Bld) [#/Vol] 0.04 thou/cmm High 0.00-0.01 [facility] Comment on above: Performed By: #### G FR #### [facility] [address] [place] [address] Nucleated RBC/100 WBC (Bld) [Ratio] 0.2 % Normal 0.0-0.2 [facility] Comment on above: Performed By: #### G FR #### [facility] [address] [place] [address] Platelet mean volume (Bld) [Entitic vol] 10.1 fL Normal 8.7-12.0 [facility] Comment on above: Performed By: #### G FR #### [facility] [address] [place], [place] [address] Platelets (Bld) [#/Vol] 372 thou/cmm High 141-365 [facility] Comment on above: Performed By: #### G FR #### [facility] [address] [place] [address] RBC (Bld) [#/Vol] 2.53 mil/cmm Low 4.63-6.08 [facility] Comment on above: Performed By: #### G FR #### [facility] [address] [place] [address] RDW SD 61.1 fl High 36.1-45.8 [facility] Comment on above: Performed By: #### G FR #### [facility] [address] [place] [address] WBC (Bld) [#/Vol] 19.11 thou/cmm High 4.23-9.07 [facility] Comment on above: Performed By: #### G FR #### [facility] [address] [place] [address] Ionized Calciumon 2018 Ionized Calcium 4.45 mg/dL Low 4.61-5.17 [facility] Comment on above: Performed By: #### G FR #### [facility] [address] [place] [address] Ionized Ca,PH7.4 4.44 mg/dL Low 4.61-5.17 [facility] Comment on above: Performed By: #### G FR #### [facility] [address] [place] [address] pH (Bld) 7.395 [pH] Normal 7.320-7.430 [facility] Comment on above: Performed By: #### G FR #### [facility] [address] [place] [address] Magnesium Bloodon 2018 Magnesium [Mass/Vol] 2.3 mg/dL Normal 1.6-2.6 [facility] Comment on above: Performed By: #### G FR #### [facility] [address] [place] [address] Phosphorus Bloodon 9 Phosphate [Mass/Vol] 2.9 mg/dL Normal 2.5-4.9 [facility] Comment on above: Performed By: #### G FR #### [facility] [address] [place] [address] Procalcitoninon 2018 Procalcitonin 0.63 ng/mL Normal [facility] Comment on above: Result Comment: Leve ls <0.50 ng/mL represent a low risk of severe sepsis and/or septic shock, while levels >2.00 ng/mL represent an elevated risk of severe sepsis and/or septic shock. Levels <0.50 ng/mL do not exclude infection, as infections or systemic infections in early stages (<6hrs) can be associated with low concentrations. Levels between 0.50-2.00 ng/mL should be interpreted in the clinical context of the patient, as a variety of conditions such as jon, trauma, surgery and severe cardiogenic shock can cause procalcitonin elevations. Performed By: #### G FR #### [place] [address] XR CHEST 2V FRONTAL/LATon XR CHEST 2V FRONTAL/LAT * * *Final Repor t* * * DATE OF EXAM: 2018 2:33PM [id number] - XR CHEST 2V FRONTAL/LAT / PROCEDURE REASON: Shortness of breath * * * * Physician Interpretation * * * * EXAMINATION: CHEST RADIOGRAPH (2 VIEW FRONTAL & LATERAL), 2018 CLINICAL HISTORY: Shortness of breath MQ: XC2_5 Comparison: 12/19/2018 RESULT: Lines, tubes, and devices: Sternotomy wires. Lungs and pleura: Suboptimal inspiration. Mild elevation right diaphragm. Increased density posterior basilar right lower lobe with blunting of the posterior right costophrenic sulcus. Cardiomediastinal silhouette: Stable top normal heart size. Tortuous aorta. Hilar structures within normal limits. Other: Moderate degenerative changes in the spine.. IMPRESSION: 1. Increased density posterior basilar right lower lobe, at least partly atelectatic. Right lower lobe infiltrate and/or right pleural effusion cannot be excluded. 2. Status post sternotomy. Stable top normal heart size. Data Collection Associate: ELAINE Transcribe Date/Time: 2018 3:04P Dictated by : DEJA RAMOS MD This examination was interpreted and the report reviewed and electronically signed by: DEJA RAMOS MD on 2018 3:08PM EST Normal [facility] Activated PTTon 12-22-2018 aPTT Coag (Bld) [Time] 27.6 s Normal 23.0-32.4 [facility] Comment on above: Result Comment: Unfr actionated Heparin Therapeutic Ranges: Standard Heparin Nomogram: 53 to 78 seconds (anti-Xa level of 0.3 to 0.7 U/mL) Low Dose/ACS Nomogram: 49 to 67 seconds (anti-Xa level of 0.2 to 0.5 U/mL) Stroke Treatment Nomogram: 49 to 67 seconds (anti-Xa level of 0.2 to 0.5 U/mL) Note: The APTT therapeutic range has been determined for the current lot of laboratory APTT reagent in use throughout the [employer]. Performed By: #### G FR #### [facility] [address] [place] [address] Basic Panelon 12-22-2018 Creatinine [Mass/Vol] 0.48 mg/dL Low 0.67-1.17 [facility] Comment on above: Performed By: #### G FR #### [place] [address] Anion gap [Moles/Vol] 7 mmol/L Low 8-16 [facility] Comment on above: Performed By: #### G FR #### [place] [address] Calcium [Mass/Vol] 7.7 mg/dL Low 8.5-10.1 [facility] Comment on above: Performed By: #### G FR #### [place] [address] CO2 [Moles/Vol] 27 mmol/L Normal 21-32 [facility] Comment on above: Performed By: #### G FR #### [facility] [address] [place] [address] Glucose [Mass/Vol] 148 mg/dL High 70-99 [facility] Comment on above: Performed By: #### G FR #### [place] [address] Urea nitrogen [Mass/Vol] 15 mg/dL Normal 7-18 [facility] Comment on above: Performed By: #### G FR #### [facility] [address] [place] [address] Chloride [Moles/Vol] 107 mmol/L Normal 98-107 [facility] Comment on above: Performed By: #### G FR #### [facility] [address] [place] [address] Potassium [Moles/Vol] 3.4 mmol/L Low 3.5-5.1 [facility] Comment on above: Performed By: #### G FR #### [facility] [address] [place] [address] Sodium [Moles/Vol] 138 mmol/L Normal 136-145 [facility] Comment on above: Performed By: #### G FR #### [facility] [address] [place] [address] Hemogram/Diffon 12-22-2018 Abs Immature Grans 0.87 thou/cmm High 0.00-0.05 [facility] Comment on above: Performed By: #### P 14 #### [facility] [address] [place] [address] Abs Neut (ANC) 12.77 thou/cmm High 1.78-5.38 [facility] Comment on above: Performed By: #### P 14 #### [facility] [address] [place] [address] Abs. Baso 0.05 thou/cmm Normal 0.01-0.08 [facility] Comment on above: Performed By: #### P 14 #### [facility] [address] [address] Abs. Story 0.74 thou/cmm Normal 0.30-0.82 [facility] Comment on above: Performed By: #### P 14 #### [facility] [address] [address] Basophils/100 WBC (Bld) 0.3 % Normal A [facility] Comment on above: Performed By: #### P 14 #### [facility] [address] [address] Eosinophils (Bld) [#/Vol] 0.20 thou/cmm Normal 0.04-0.54 [facility] Comment on above: Performed By: #### P 14 #### [facility] [address] [place], [place] [address] Eosinophils/100 WBC (Bld) 1.3 % Normal [facility] Comment on above: Performed By: #### P 14 #### [facility] [address] [place], [place] [address] Immature Grans 5.80 % Normal [facility] Comment on above: Performed By: #### P 14 #### [facility] [address] [place], [place] [address] Lymphocytes (Bld) [#/Vol] 0.45 thou/cmm Low 0.84-2.85 [facility] Comment on above: Performed By: #### P 14 #### [facility] [address] [place], [place] [address] Lymphocytes/100 WBC (Bld) 3.0 % Normal [facility] Comment on above: Performed By: #### P 14 #### [facility] [address] [place], [place] [address] Monocytes/100 WBC (Bld) 4.9 % Normal [facility] Comment on above: Performed By: #### P 14 #### [facility] [address] [place], [place] [address] Seg Neutrophil 84.7 % Normal [facility] Comment on above: Performed By: #### P 14 #### [facility] [address] [place], [place] [address] Erythrocyte distribution width (RBC) [Ratio] 15.9 % High 11.6-14.4 [facility] Comment on above: Performed By: #### P 14 #### [facility] [address] [place], [place] [address] Hematocrit (Bld) [Volume fraction] 25.2 % Low 40.1-51.0 [facility] Comment on above: Performed By: #### P 14 #### [facility] [address] [place], [place] [address] Hemoglobin (Bld) [Mass/Vol] 8.2 g/dL Low 13.7-17.5 [facility] Comment on above: Performed By: #### P 14 #### [facility] [address] [place], [place] [address] MCH (RBC) [Entitic mass] 33.3 pg High 25.7-32.2 [facility] Comment on above: Performed By: #### P 14 #### [facility] [address] [place], [place] [address] MCHC (RBC) [Mass/Vol] 32.5 % Normal 32.3-36.5 [facility] Comment on above: Performed By: #### P 14 #### [facility] [address] [place], [place] [address] MCV (RBC) [Entitic vol] 102.4 fL High 83.2-95.6 [facility] Comment on above: Performed By: #### P 14 #### [facility] [address] [place], [place] [address] Nucleated RBC (Bld) [#/Vol] 0.03 thou/cmm High 0.00-0.01 [facility] Comment on above: Performed By: #### P 14 #### [facility] [address] [place], [place] [address] Nucleated RBC/100 WBC (Bld) [Ratio] 0.2 % Normal 0.0-0.2 [facility] Comment on above: Performed By: #### P 14 #### [facility] [address] [place], [place] [address] Platelet mean volume (Bld) [Entitic vol] 9.7 fL Normal 8.7-12.0 [facility] Comment on above: Performed By: #### P 14 #### [facility] [address] [place], [place] [address] Platelets (Bld) [#/Vol] 346 thou/cmm Normal 141-365 [facility] Comment on above: Performed By: #### P 14 #### [facility] [address] [place], [place] [address] RBC (Bld) [#/Vol] 2.46 mil/cmm Low 4.63-6.08 [facility] Comment on above: Performed By: #### P 14 #### [facility] [address] [place] [address] RDW SD 59.9 fl High 36.1-45.8 [facility] Comment on above: Performed By: #### P 14 #### [facility] [address] [place] [address] WBC (Bld) [#/Vol] 15.08 thou/cmm High 4.23-9.07 [facility] Comment on above: Performed By: #### P 14 #### [facility] [address] [place] [address] Activated PTTon 12-21-2018 aPTT Coag (Bld) [Time] 68.3 s High 23.0-32.4 [facility] Comment on above: Result Comment: Unfr actionated Heparin Therapeutic Ranges: Standard Heparin Nomogram: 53 to 78 seconds (anti-Xa level of 0.3 to 0.7 U/mL) Low Dose/ACS Nomogram: 49 to 67 seconds (anti-Xa level of 0.2 to 0.5 U/mL) Stroke Treatment Nomogram: 49 to 67 seconds (anti-Xa level of 0.2 to 0.5 U/mL) Note: The APTT therapeutic range has been determined for the current lot of laboratory APTT reagent in use throughout the [employer]. Performed By: #### P 14 #### [facility] [address] [place] [address] Basic Panelon 12-21-2018 Creatinine [Mass/Vol] 0.52 mg/dL Low 0.67-1.17 [facility] Comment on above: Performed By: #### P 14 #### [facility] [address] [place] [address] Anion gap [Moles/Vol] 8 mmol/L Normal 8-16 [facility] Comment on above: Performed By: #### P 14 #### [facility] [address] [place] [address] Calcium [Mass/Vol] 7.5 mg/dL Low 8.5-10.1 [facility] Comment on above: Performed By: #### P 14 #### [facility] [address] [place] [address] CO2 [Moles/Vol] 26 mmol/L Normal 21-32 [facility] Comment on above: Performed By: #### P 14 #### [facility] [address] [place] [address] Glucose [Mass/Vol] 179 mg/dL High 70-99 [facility] Comment on above: Performed By: #### P 14 #### [facility] [address] [place] [address] Urea nitrogen [Mass/Vol] 18 mg/dL Normal 7-18 [facility] Comment on above: Performed By: #### P 14 #### [facility] [address] [place] [address] Chloride [Moles/Vol] 108 mmol/L High 98-107 [facility] Comment on above: Performed By: #### P 14 #### [place] [address] Potassium [Moles/Vol] 3.7 mmol/L Normal 3.5-5.1 [facility] Comment on above: Performed By: #### P 14 #### [place] [address] Sodium [Moles/Vol] 138 mmol/L Normal 136-145 [facility] Comment on above: Performed By: #### P 14 #### [place] [address] Hemogram/Diffon 12-21-2018 Abs Immature Grans 0.29 thou/cmm High 0.00-0.05 [facility] Comment on above: Performed By: #### P 14 #### [place] [address] Abs Neut (ANC) 11.12 thou/cmm High 1.78-5.38 [facility] Comment on above: Performed By: #### P 14 #### [place] [address] Abs. Baso 0.03 thou/cmm Normal 0.01-0.08 [facility] Comment on above: Result Comment: Smea r scanned; tech agrees with automated differential Performed By: #### P 14 #### [facility] [address] [place], [place] [address] Abs. Story 0.73 thou/cmm Normal 0.30-0.82 [facility] Comment on above: Performed By: #### P 14 #### [facility] [address] [place], [place] [address] Basophils/100 WBC (Bld) 0.2 % Normal A [facility] Comment on above: Performed By: #### P 14 #### [facility] [address] [place], [place] [address] Eosinophils (Bld) [#/Vol] 0.18 thou/cmm Normal 0.04-0.54 [facility] Comment on above: Performed By: #### P 14 #### [facility] [address] [place], [place] [address] Eosinophils/100 WBC (Bld) 1.4 % Normal [facility] Comment on above: Performed By: #### P 14 #### [facility] [address] [place], [place] [address] Immature Grans 2.30 % Normal [facility] Comment on above: Performed By: #### P 14 #### [facility] [address] [place], [place] [address] Lymphocytes (Bld) [#/Vol] 0.41 thou/cmm Low 0.84-2.85 [facility] Comment on above: Performed By: #### P 14 #### [facility] [address] [place], [place] [address] Lymphocytes/100 WBC (Bld) 3.2 % Normal [facility] Comment on above: Performed By: #### P 14 #### [facility] [address] [place], [place] [address] Monocytes/100 WBC (Bld) 5.7 % Normal [facility] Comment on above: Performed By: #### P 14 #### [facility] [address] [place], [place] [address] Seg Neutrophil 87.2 % Normal [facility] Comment on above: Performed By: #### P 14 #### [facility] [address] [place] [address] Erythrocyte distribution width (RBC) [Ratio] 16.0 % High 11.6-14.4 [facility] Comment on above: Performed By: #### P 14 #### [facility] [address] [place], [place] [address] Hematocrit (Bld) [Volume fraction] 24.6 % Low 40.1-51.0 [facility] Comment on above: Performed By: #### P 14 #### [facility] [address] [place] [id number] Hemoglobin (Bld) [Mass/Vol] 7.8 g/dL Low 13.7-17.5 [facility] Comment on above: Performed By: #### P 14 #### [facility] [address] [place] [address] MCH (RBC) [Entitic mass] 33.1 pg High 25.7-32.2 [facility] Comment on above: Performed By: #### P 14 #### [facility] [address] [place] [address] MCHC (RBC) [Mass/Vol] 31.7 % Low 32.3-36.5 [facility] Comment on above: Performed By: #### P 14 #### [facility] [address] [place] [address] MCV (RBC) [Entitic vol] 104.2 fL High 83.2-95.6 [facility] Comment on above: Performed By: #### P 14 #### [facility] [address] [place] [id number] Nucleated RBC (Bld) [#/Vol] 0.03 thou/cmm High 0.00-0.01 [facility] Comment on above: Performed By: #### P 14 #### [facility] [address] [place], [place] [address] Nucleated RBC/100 WBC (Bld) [Ratio] 0.2 % Normal 0.0-0.2 [facility] Comment on above: Performed By: #### P 14 #### [facility] [address] [place] [id number] Platelet mean volume (Bld) [Entitic vol] 10.3 fL Normal 8.7-12.0 [facility] Comment on above: Performed By: #### P 14 #### [facility] [address] [place], [place] [address] Platelets (Bld) [#/Vol] 307 thou/cmm Normal 141-365 [facility] Comment on above: Performed By: #### P 14 #### [facility] [address] [place] [address] RBC (Bld) [#/Vol] 2.36 mil/cmm Low 4.63-6.08 [facility] Comment on above: Performed By: #### P 14 #### [facility] [address] [place] [address] RDW SD 61.0 fl High 36.1-45.8 [facility] Comment on above: Performed By: #### P 14 #### [facility] [address] [place] [address] WBC (Bld) [#/Vol] 12.75 thou/cmm High 4.23-9.07 [facility] Comment on above: Performed By: #### P 14 #### [facility] [address] [place] [address] Magnesium Bloodon 12-21-2018 Magnesium [Mass/Vol] 2.3 mg/dL Normal 1.6-2.6 [facility] Comment on above: Performed By: #### P 14 #### [facility] [address] [place] [address] Phosphorus Bloodon 9 Phosphate [Mass/Vol] 2.5 mg/dL Normal 2.5-4.9 [facility] Comment on above: Performed By: #### P 14 #### [facility] [address] [place] [address] XR ABDOMEN 1V SUPINEon 12-21 XR ABDOMEN 1V SUPINE * * *Final Report* * * DATE OF EXAM: Dec 21 2018 1:43PM [id number] - XR ABDOMEN 1V SUPINE / PROCEDURE REASON: Evaluate tube, line or lead position * * * * Physician Interpretation * * * * EXAM TITLE: XR ABDOMEN 1V SUPINE DATE: 12/21/2018 COMPARISON: 12/21/2018 at 0538 hours CLINICAL INDICATION/HISTORY: Abdominal pain TECHNIQUE: A single view of the abdomen is presented. FINDINGS: NG tube is again identified, which appears looped in the region of the mid stomach, with the tip projecting in the expected location of the gastric antrum/proximal duodenum. Mild gaseous distention of small bowel throughout the central abdomen, slightly less conspicuous than on prior examination. No definite free air on this single portable supine view. Postoperative and degenerative changes of the visualized lower lumbar spine. IMPRESSION: Mild gaseous distention of small bowel loops, slightly less prominent. NG tube as described above, looped within the region of the mid stomach, with distal tip projecting in the region of the gastric antrum/proximal duodenum Data Collection Associate: [facility] Transcribe Date/Time: Dec 21 2018 2:20P Dictated by : VICK CALABRESE MD This examination was interpreted and the report reviewed and electronically signed by: VICK CALABRESE MD on Dec 21 2018 2:23PM EST Normal [facility] XR ABDOMEN 1V SUPINE * * *Final Report* * * DATE OF EXAM: Dec 21 2018 5:48AM [id number] - XR ABDOMEN 1V SUPINE / PROCEDURE REASON: Post-operative / post-procedure assessment, asymptomatic * * * * Physician Interpretation * * * * Exam: Single frontal view of the abdomen dated 12/21/2018 5:48 AM. Indication: Post-operative / post-procedure assessment, asymptomatic Comparison: 12/19/2018. Findings: The lung bases/upper abdomen are not imaged. There is a nasogastric tube looped within the stomach with tip terminating near the pyloric/proximal duodenum region. There are multiple mildly dilated small bowel loops within the central abdomen. No abnormal calcifications are seen. No acute bony abnormalities are identified. Degenerative and postsurgical changes noted in the lumbar spine. IMPRESSION: Persistent mild small bowel dilation. Data Collection Associate: [facility] Transcribe Date/Time: Dec 21 2018 8:48A Dictated by : SHRADDHA CARRION MD This examination was interpreted and the report reviewed and electronically signed by: SHRADDHA CARRION MD on Dec 21 2018 8:50AM EST Normal [facility] Activated PTTon 12-20-2018 aPTT Coag (Bld) [Time] 69.9 s High 23.0-32.4 [facility] Comment on above: Result Comment: Unfr actionated Heparin Therapeutic Ranges: Standard Heparin Nomogram: 53 to 78 seconds (anti-Xa level of 0.3 to 0.7 U/mL) Low Dose/ACS Nomogram: 49 to 67 seconds (anti-Xa level of 0.2 to 0.5 U/mL) Stroke Treatment Nomogram: 49 to 67 seconds (anti-Xa level of 0.2 to 0.5 U/mL) Note: The APTT therapeutic range has been determined for the current lot of laboratory APTT reagent in use throughout the [employer]. Performed By: #### P 14 #### [place] [address] aPTT Coag (Bld) [Time] 65.7 s High 23.0-32.4 [facility] Comment on above: Result Comment: Unfr actionated Heparin Therapeutic Ranges: Standard Heparin Nomogram: 53 to 78 seconds (anti-Xa level of 0.3 to 0.7 U/mL) Low Dose/ACS Nomogram: 49 to 67 seconds (anti-Xa level of 0.2 to 0.5 U/mL) Stroke Treatment Nomogram: 49 to 67 seconds (anti-Xa level of 0.2 to 0.5 U/mL) Note: The APTT therapeutic range has been determined for the current lot of laboratory APTT reagent in use throughout the [employer]. Performed By: #### C BCD1 #### [place] [address] Comprehensive Panelon 2018 Creatinine [Mass/Vol] 0.63 mg/dL Low 0.67-1.17 [facility] Comment on above: Performed By: #### C BCD1 #### [place] [address] ALP [Catalytic activity/Vol] 71 U/L Normal 45-117 [facility] Comment on above: Performed By: #### C BCD1 #### [place] [address] Bilirubin [Mass/Vol] 0.6 mg/dL Normal 0.2-1.0 [facility] Comment on above: Performed By: #### C BCD1 #### [facility] [address] [place], [place] [address] Protein [Mass/Vol] 5.2 g/dL Low 6.4-8.2 [facility] Comment on above: Performed By: #### C BCD1 #### [facility] [address] [place], [place] [address] ALT [Catalytic activity/Vol] 46 U/L Normal 12-78 [facility] Comment on above: Performed By: #### C BCD1 #### [facility] [address] [place], [place] [address] AST [Catalytic activity/Vol] 24 U/L Normal 15-37 [facility] Comment on above: Performed By: #### C BCD1 #### [facility] [address] [place], [place] [address] Albumin [Mass/Vol] 2.1 g/dL Low 3.4-5.0 [facility] Comment on above: Performed By: #### C BCD1 #### [facility] [address] [place], [place] [address] Anion gap [Moles/Vol] 12 mmol/L Normal 8-16 [facility] Comment on above: Performed By: #### C BCD1 #### [facility] [address] [place], [place] [address] CO2 [Moles/Vol] 23 mmol/L Normal 21-32 [facility] Comment on above: Performed By: #### C BCD1 #### [facility] [address] [place], [place] [address] Glucose [Mass/Vol] 123 mg/dL High 70-99 [facility] Comment on above: Performed By: #### C BCD1 #### [facility] [address] [place], [place] [address] Calcium [Mass/Vol] 8.1 mg/dL Low 8.5-10.1 [facility] Comment on above: Performed By: #### C BCD1 #### [facility] [address] [place], [place] [address] Urea nitrogen [Mass/Vol] 21 mg/dL High 7-18 [facility] Comment on above: Performed By: #### C BCD1 #### [facility] [address] [place], [place] [address] Chloride [Moles/Vol] 107 mmol/L Normal 98-107 [facility] Comment on above: Performed By: #### C BCD1 #### [facility] [address] [place], [place] [address] Potassium [Moles/Vol] 4.0 mmol/L Normal 3.5-5.1 [facility] Comment on above: Performed By: #### C BCD1 #### [facility] [address] [place] [address] Sodium [Moles/Vol] 138 mmol/L Normal 136-145 [facility] Comment on above: Performed By: #### C BCD1 #### [facility] [address] [place] [address] Hemogram/Diffon 12-20-2018 Abs Immature Grans 0.11 thou/cmm High 0.00-0.05 [facility] Comment on above: Performed By: #### C BCD1 #### [facility] [address] [place] [address] Abs Neut (ANC) 11.43 thou/cmm High 1.78-5.38 [facility] Comment on above: Performed By: #### C BCD1 #### [facility] [address] [place] [address] Abs. Baso 0.03 thou/cmm Normal 0.01-0.08 [facility] Comment on above: Result Comment: Smea r scanned; tech agrees with automated differential Performed By: #### C BCD1 #### [facility] [address] [place] [address] Abs. Story 0.79 thou/cmm Normal 0.30-0.82 [facility] Comment on above: Performed By: #### C BCD1 #### [facility] [address] [place], [place] [address] Basophils/100 WBC (Bld) 0.2 % Normal [facility] Comment on above: Performed By: #### C BCD1 #### [facility] [address] [place], [place] [address] Eosinophils (Bld) [#/Vol] 0.05 thou/cmm Normal 0.04-0.54 [facility] Comment on above: Performed By: #### C BCD1 #### [facility] [address] [place], [place] [address] Eosinophils/100 WBC (Bld) 0.4 % Normal [facility] Comment on above: Performed By: #### C BCD1 #### [facility] [address] [place], [place] [address] Immature Grans 0.90 % Normal [facility] Comment on above: Performed By: #### C BCD1 #### [facility] [address] [place], [place] [address] Lymphocytes (Bld) [#/Vol] 0.34 thou/cmm Low 0.84-2.85 [facility] Comment on above: Performed By: #### C BCD1 #### [facility] [address] [place], [place] [address] Lymphocytes/100 WBC (Bld) 2.7 % Normal [facility] Comment on above: Performed By: #### C BCD1 #### [facility] [address] [place], [place] [address] Monocytes/100 WBC (Bld) 6.2 % Normal [facility] Comment on above: Performed By: #### C BCD1 #### [facility] [address] [place], [place] [address] Seg Neutrophil 89.6 % Normal [facility] Comment on above: Performed By: #### C BCD1 #### [facility] [address] [place], [place] [address] Erythrocyte distribution width (RBC) [Ratio] 16.1 % High 11.6-14.4 [facility] Comment on above: Performed By: #### C BCD1 #### [facility] [address] [place], [place] [address] Hematocrit (Bld) [Volume fraction] 25.9 % Low 40.1-51.0 [facility] Comment on above: Performed By: #### C BCD1 #### [facility] [address] [place] [address] Hemoglobin (Bld) [Mass/Vol] 8.4 g/dL Low 13.7-17.5 [facility] Comment on above: Performed By: #### C BCD1 #### [facility] [address] [place] [address] MCH (RBC) [Entitic mass] 33.6 pg High 25.7-32.2 [facility] Comment on above: Performed By: #### C BCD1 #### [facility] [address] [place] [address] MCHC (RBC) [Mass/Vol] 32.4 % Normal 32.3-36.5 [facility] Comment on above: Performed By: #### C BCD1 #### [facility] [address] [place] [address] MCV (RBC) [Entitic vol] 103.6 fL High 83.2-95.6 [facility] Comment on above: Performed By: #### C BCD1 #### [facility] [address] [place] [address] Nucleated RBC (Bld) [#/Vol] 0.02 thou/cmm High 0.00-0.01 [facility] Comment on above: Performed By: #### C BCD1 #### [facility] [address] [place] [address] Nucleated RBC/100 WBC (Bld) [Ratio] 0.2 % Normal 0.0-0.2 [facility] Comment on above: Performed By: #### C BCD1 #### [facility] [address] [place] [address] Platelet mean volume (Bld) [Entitic vol] 10.0 fL Normal 8.7-12.0 [facility] Comment on above: Performed By: #### C BCD1 #### [facility] [address] [place], [place] [address] Platelets (Bld) [#/Vol] 314 thou/cmm Normal 141-365 [facility] Comment on above: Performed By: #### C BCD1 #### [facility] [address] [place], [place] [address] RBC (Bld) [#/Vol] 2.50 mil/cmm Low 4.63-6.08 [facility] Comment on above: Performed By: #### C BCD1 #### [facility] [address] [place], [place] [address] RDW SD 61.5 fl High 36.1-45.8 [facility] Comment on above: Performed By: #### C BCD1 #### [facility] [address] [place], [place] [address] WBC (Bld) [#/Vol] 12.76 thou/cmm High 4.23-9.07 [facility] Comment on above: Performed By: #### C BCD1 #### [facility] [address] [place] [address] Magnesium Bloodon 12-20-2018 Magnesium [Mass/Vol] 2.4 mg/dL Normal 1.6-2.6 [facility] Comment on above: Performed By: #### C BCD1 #### [facility] [address] [place] [address] NM HEPATOBILIARY WO RXon NM HEPATOBILIARY WO RX * * *Final Report * * * DATE OF EXAM: Dec 20 2018 4:53PM [facility] 0022 - NM HEPATOBILIARY WO RX / PROCEDURE REASON: RUQ pain, no fever, no elev WBC * * * * Physician Interpretation * * * * HEPATOBILIARY SCAN: HISTORY: Right upper quadrant abdominal pain. Status post cholecystectomy 12/15/2018. TECHNIQUE: 6.2 mCi Tc-99m Choletec IV, followed by dynamic imaging of the abdomen. RESULT: There is prompt uptake and clearance of activity by the liver, which is normal in configuration. Major intra- and extrahepatic biliary ducts are visualized. Status post cholecystectomy. Proximal small bowel activity is noted by 15 minutes post injection, indicating biliary patency. There is evidence for duodenogastric reflux of a small fraction of the biliary activity. No areas of abnormal accumulation of the radiotracer are identified to suggest bile leak. IMPRESSION: Status post cholecystectomy. No evidence for biliary obstruction. Mild duodenogastric biliary reflux. No evidence for bile leak. Data Collection Associate: [employer] Transcribe Date/Time: 2018 9:17A Dictated by : NICHOLE DUKE MD This examination was interpreted and the report reviewed and electronically signed by: NICHOLE DUKE MD on 2018 9:21AM EST Normal [facility] Phosphorus Bloodon 9 Phosphate [Mass/Vol] 2.9 mg/dL Normal 2.5-4.9 [facility] Comment on above: Performed By: #### C BCD1 #### [place] [address] US DVT LOWER BILon 9 US DVT LOWER LETITIA * * *Final Report* * * DATE OF EXAM: Dec 19 2018 10:30PM [facility] 1005 - US DVT LOWER LETITIA / PROCEDURE REASON: Post-operative / post-procedure assessment, symptomatic * * * * Physician Interpretation * * * * ULTRASOUND OF BILATERAL LEG VEINS WITH COLOR DOPPLER SCANNING HISTORY: Post-operative / post-procedure assessment, symptomatic COMPARISON: None available. TECHNIQUE: The deep venous system of both legs was evaluated with woo scale and color Doppler imaging. Augmentation and compression maneuvers were applied at multiple levels along the deep venous axis. RESULT: There is no evidence of thrombus in the visible deep veins of both lower extremities. The veins respond normally to compression and augmentation maneuvers. Normal venous blood flow noted on doppler exam. IMPRESSION: No deep venous thrombosis in the visualized veins of both legs. Data Collection Associate: [facility] Transcribe Date/Time: Dec 19 2018 10:32P Dictated by : ERIK BRUSH MD This examination was interpreted and the report reviewed and electronically signed by: ERIK BRUSH MD on Dec 19 2018 10:36PM EST Normal [facility] XR CHEST 1V FRONTALon 2018 XR CHEST 1V FRONTAL * * *Final Report* * * DATE OF EXAM: Dec 19 2018 11:02PM AKX 5290 - XR CHEST 1V FRONTAL / PROCEDURE REASON: Evaluate tube, line or lead position * * * * Physician Interpretation * * * * EXAMINATION: CHEST RADIOGRAPH (SINGLE VIEW AP OR PA) CLINICAL HISTORY: Evaluate tube, line or lead position MQ: XC1_5 Comparison: 12/19/2018, 2005 hours RESULT: Lines, tubes, and devices: The tip of the right internal jugular central venous catheter is at a level consistent with the caudal portion of the superior vena cava The nasogastric tube is coiled within the body of the stomach with the tip of the nasogastric tube in the gastric antrum. Nasogastric tube should be repositioned Lungs and pleura: Negative for pneumothorax Improved inspiration when compared to the prior study with partial clearing of the groundglass densities in both lungs Elevation right hemidiaphragm stable since the previous exam Small right pleural effusion Bone infiltrate in the retrocardiac aspect of the left lower lobe unchanged Cardiomediastinal silhouette: Normal cardiomediastinal silhouette. IMPRESSION: Stable chest status post central venous line placement The nasogastric tube should be repositioned. See discussion Data Collection Associate: [facility] Transcribe Date/Time: Dec 19 2018 11:07P Dictated by : AMANDA HARTLEY MD This examination was interpreted and the report reviewed and electronically signed by: AMANDA HARTLEY MD on Dec 19 2018 11:09PM EST Normal [facility] Activated PTTon 12-19-2018 aPTT Coag (Bld) [Time] 28.7 s Normal 23.0-32.4 [facility] Comment on above: Result Comment: Unfr actionated Heparin Therapeutic Ranges: Standard Heparin Nomogram: 53 to 78 seconds (anti-Xa level of 0.3 to 0.7 U/mL) Low Dose/ACS Nomogram: 49 to 67 seconds (anti-Xa level of 0.2 to 0.5 U/mL) Stroke Treatment Nomogram: 49 to 67 seconds (anti-Xa level of 0.2 to 0.5 U/mL) Note: The APTT therapeutic range has been determined for the current lot of laboratory APTT reagent in use throughout the [employer]. Performed By: #### D AT #### [place] [address] Comprehensive Panelon 2018 ALP [Catalytic activity/Vol] 55 U/L Normal 45-117 [facility] Comment on above: Performed By: #### D AT #### [place] [address] Bilirubin [Mass/Vol] 1.4 mg/dL High 0.2-1.0 [facility] Comment on above: Performed By: #### D AT #### [facility] [address] [place], [place] [address] Creatinine [Mass/Vol] 0.95 mg/dL Normal 0.67-1.17 [facility] Comment on above: Performed By: #### D AT #### [facility] [address] [place], [place] [address] Protein [Mass/Vol] 5.0 g/dL Low 6.4-8.2 [facility] Comment on above: Performed By: #### D AT #### [facility] [address] [place], [place] [address] AST [Catalytic activity/Vol] 44 U/L High 15-37 [facility] Comment on above: Performed By: #### D AT #### [facility] [address] [place], [place] [address] ALT [Catalytic activity/Vol] 67 U/L Normal 12-78 [facility] Comment on above: Performed By: #### D AT #### [facility] [address] [place], [place] [address] Glucose [Mass/Vol] 115 mg/dL High 70-99 [facility] Comment on above: Performed By: #### D AT #### [facility] [address] [place], [place] [address] Albumin [Mass/Vol] 2.3 g/dL Low 3.4-5.0 [facility] Comment on above: Performed By: #### D AT #### [facility] [address] [place], [place] [address] Anion gap [Moles/Vol] 15 mmol/L Normal 8-16 [facility] Comment on above: Performed By: #### D AT #### [facility] [address] [place], [place] [address] Calcium [Mass/Vol] 8.1 mg/dL Low 8.5-10.1 [facility] Comment on above: Performed By: #### D AT #### [facility] [address] [place], [place] [address] CO2 [Moles/Vol] 20 mmol/L Low 21-32 [facility] Comment on above: Performed By: #### D AT #### [facility] [address] [place] [address] Urea nitrogen [Mass/Vol] 26 mg/dL High 7-18 [facility] Comment on above: Performed By: #### D AT #### [facility] [address] [place] [address] Chloride [Moles/Vol] 105 mmol/L Normal 98-107 [facility] Comment on above: Performed By: #### D AT #### [facility] [address] [place] [address] Potassium [Moles/Vol] 4.9 mmol/L Normal 3.5-5.1 [facility] Comment on above: Performed By: #### D AT #### [facility] [address] [place] [address] Sodium [Moles/Vol] 135 mmol/L Low 136-145 [facility] Comment on above: Performed By: #### D AT #### [facility] [address] [place] [address] Direct [place] 12-19-2018 Nikko C3d Negative Normal NEGATIVE [facility] Comment on above: Performed By: #### D AT #### [place] [address] Nikko IgG Positive Normal NEGATIVE [facility] Comment on above: Performed By: #### D AT #### [place] [address] Hemogramon 12-19-2018 Erythrocyte distribution width (RBC) [Ratio] 16.2 % High 11.6-14.4 [facility] Comment on above: Performed By: #### D AT #### [facility] [address] [place] [address] Hematocrit (Bld) [Volume fraction] 24.5 % Low 40.1-51.0 [facility] Comment on above: Performed By: #### D AT #### [place] [address] Hemoglobin (Bld) [Mass/Vol] 8.2 g/dL Low 13.7-17.5 [facility] Comment on above: Performed By: #### D AT #### [facility] [address] [place] [address] MCH (RBC) [Entitic mass] 34.0 pg High 25.7-32.2 [facility] Comment on above: Performed By: #### D AT #### [facility] [address] [place] [address] MCHC (RBC) [Mass/Vol] 33.5 % Normal 32.3-36.5 [facility] Comment on above: Performed By: #### D AT #### [facility] [address] [place] [address] MCV (RBC) [Entitic vol] 101.7 fL High 83.2-95.6 [facility] Comment on above: Performed By: #### D AT #### [place] [address] Nucleated RBC (Bld) [#/Vol] 0.02 thou/cmm High 0.00-0.01 [facility] Comment on above: Performed By: #### D AT #### [place] [address] Nucleated RBC/100 WBC (Bld) [Ratio] 0.1 % Normal 0.0-0.2 [facility] Comment on above: Performed By: #### D AT #### [place] [address] Platelet mean volume (Bld) [Entitic vol] 9.5 fL Normal 8.7-12.0 [facility] Comment on above: Performed By: #### D AT #### [facility] [address] [place] [id number] Platelets (Bld) [#/Vol] 291 thou/cmm Normal 141-365 [facility] Comment on above: Performed By: #### D AT #### [facility] [address] [place] [id number] RBC (Bld) [#/Vol] 2.41 mil/cmm Low 4.63-6.08 [facility] Comment on above: Performed By: #### D AT #### [facility] [address] [place] [address] RDW SD 60.6 fl High 36.1-45.8 [facility] Comment on above: Performed By: #### D AT #### [facility] [address] [place] [address] WBC (Bld) [#/Vol] 14.10 thou/cmm High 4.23-9.07 [facility] Comment on above: Performed By: #### D AT #### [place] [address] Hemogram/Diffon 12-19-2018 Abs Immature Grans 0.09 thou/cmm High 0.00-0.05 [facility] Comment on above: Performed By: #### D AT #### [place] [address] Abs Neut (ANC) 16.46 thou/cmm High 1.78-5.38 [facility] Comment on above: Performed By: #### D AT #### [place] [address] Abs. Baso 0.03 thou/cmm Normal 0.01-0.08 [facility] Comment on above: Performed By: #### D AT #### [place] [address] Abs. Story 0.73 thou/cmm Normal 0.30-0.82 [facility] Comment on above: Performed By: #### D AT #### [place] [address] Basophils/100 WBC (Bld) 0.2 % Normal A [facility] Comment on above: Performed By: #### D AT #### [place] [address] Eosinophils (Bld) [#/Vol] 0.00 thou/cmm Low 0.04-0.54 [facility] Comment on above: Performed By: #### D AT #### [facility] [address] [place], [place] [address] Eosinophils/100 WBC (Bld) 0.0 % Normal [facility] Comment on above: Performed By: #### D AT #### [facility] [address] [place] [address] Immature Grans 0.50 % Normal [facility] Comment on above: Performed By: #### D AT #### [facility] [address] [place] [address] Lymphocytes (Bld) [#/Vol] 0.17 thou/cmm Low 0.84-2.85 [facility] Comment on above: Performed By: #### D AT #### [facility] [address] [place] [address] Lymphocytes/100 WBC (Bld) 1.0 % Normal [facility] Comment on above: Performed By: #### D AT #### [facility] [address] [place] [address] Monocytes/100 WBC (Bld) 4.2 % Normal [facility] Comment on above: Performed By: #### D AT #### [facility] [address] [place] [address] Seg Neutrophil 94.1 % Normal [facility] Comment on above: Performed By: #### D AT #### [facility] [address] [place] [address] Erythrocyte distribution width (RBC) [Ratio] 15.9 % High 11.6-14.4 [facility] Comment on above: Performed By: #### D AT #### [facility] [address] [place] [address] Hematocrit (Bld) [Volume fraction] 28.6 % Low 40.1-51.0 [facility] Comment on above: Performed By: #### D AT #### [facility] [address] [place] [address] Hemoglobin (Bld) [Mass/Vol] 9.3 g/dL Low 13.7-17.5 [facility] Comment on above: Performed By: #### D AT #### [facility] [address] [place] [address] MCH (RBC) [Entitic mass] 33.3 pg High 25.7-32.2 [facility] Comment on above: Performed By: #### D AT #### [facility] [address] [place], [place] [address] MCHC (RBC) [Mass/Vol] 32.5 % Normal 32.3-36.5 [facility] Comment on above: Performed By: #### D AT #### [facility] [address] [place] [address] MCV (RBC) [Entitic vol] 102.5 fL High 83.2-95.6 [facility] Comment on above: Performed By: #### D AT #### [facility] [address] [place] [address] Nucleated RBC (Bld) [#/Vol] 0.05 thou/cmm High 0.00-0.01 [facility] Comment on above: Performed By: #### D AT #### [facility] [address] [place] [address] Nucleated RBC/100 WBC (Bld) [Ratio] 0.3 % High 0.0-0.2 [facility] Comment on above: Performed By: #### D AT #### [facility] [address] [place] [address] Platelet mean volume (Bld) [Entitic vol] 10.3 fL Normal 8.7-12.0 [facility] Comment on above: Performed By: #### D AT #### [facility] [address] [place] [address] Platelets (Bld) [#/Vol] 316 thou/cmm Normal 141-365 [facility] Comment on above: Performed By: #### D AT #### [facility] [address] [place] [id number] RBC (Bld) [#/Vol] 2.79 mil/cmm Low 4.63-6.08 [facility] Comment on above: Performed By: #### D AT #### [place] [address] RDW SD 59.0 fl High 36.1-45.8 [facility] Comment on above: Performed By: #### D AT #### [facility] [address] [place] [id number] WBC (Bld) [#/Vol] 17.49 thou/cmm High 4.23-9.07 [facility] Comment on above: Performed By: #### D AT #### [facility] [address] [place] [address] MRSA Screenon 12-19-2018 MRSA DNA CHILANGO+probe Ql (Unsp spec) Test performed at [facility] No MRSA detected. Normal [facility] Comment on above: Performed By: #### P 14 #### [facility] [address] [place] [address] Magnesium Bloodon 12-19-2018 Magnesium [Mass/Vol] 2.5 mg/dL Normal 1.6-2.6 [facility] Comment on above: Performed By: #### D AT #### [facility] [address] [place] [address] N-terminal Pro-BNPon 019 Natriuretic peptide B (Bld) [Mass/Vol] 763 pg/mL Normal [facility] Comment on above: Result Comment: Norm al Reference Range: Patients <75 yrs old <125pg/ml Patients >=75 yrs old <450 pg/ml Performed By: #### C BCD1 #### [place] [address] Phosphorus Bloodon 9 Phosphate [Mass/Vol] 3.4 mg/dL Normal 2.5-4.9 [facility] Comment on above: Performed By: #### D AT #### [place] [address] Protimeon 12-19-2018 INR Coag (PPP) [Relative time] 1.17 {INR} Normal 0.90-1.30 [facility] Comment on above: Result Comment: Hilda min K Antagonist (VKA) Therapeutic Range: INR 2 to 3 (Target INR of 2.5) Note: For patients treated with VKA drugs, such as warfarin, the [employer] 2012 Guideline recommends a therapeutic INR range of 2 to 3 (target INR of 2.5). This recommendation includes high-risk patients with antiphospholipid syndrome with previous arterial or venous thromboembolism, current-generation mechanical or bioprosthetic aortic heart valve replacement. Note: Patients with mechanical aortic valve replacement and additional risk factors for thromboembolic events (atrial fibrillation, previous thromboembolism, LV dysfunction, hypercoagulable conditions) or an older generation mechanical AVR (i.e., ball in-Cage) or any mechanical MVR should have a INR therapeutic range of 2.5 to 3.5 target INR of 3). Kely GH, et al. Chest 2012; 141:7S-47S Mony RA, et al. JAC 2017; 70: 252-289 Performed By: #### C BCD1 #### [facility] [address] [place] [address] PT Coag (PPP) [Time] 12.6 s Normal 9.7-13.0 [facility] Comment on above: Performed By: #### C BCD1 #### [place] [id number] Troponin Ion 12-19-2018 Troponin I.cardiac [Mass/Vol] ng/mL Normal 0.015-0.045 [facility] Comment on above: Performed By: #### D AT #### [facility] [address] [place] [id number] XR ABDOMEN 1V SUPINEon 12-19 XR ABDOMEN 1V SUPINE * * *Final Report* * * DATE OF EXAM: Dec 19 2018 1:27AM AKX 5289 - XR ABDOMEN 1V SUPINE / PROCEDURE REASON: Evaluate tube, line or lead position * * * * Physician Interpretation * * * * XR ABDOMEN 1V SUPINE INDICATION: Evaluate tube, line or lead position COMPARISON: 12/17/2018 TECHNIQUE: Portable upright view abdomen, one film. FINDINGS: See impression. IMPRESSION: There is a enteric tube with the distal end coiled in the mid stomach and the tip projecting in the region of the gastric antrum. No free air identified beneath the hemidiaphragms. Multiple gas-filled/distended small bowel loops which again again could be related to ileus. Data Collection Associate: [facility] Transcribe Date/Time: Dec 19 2018 1:34A Dictated by : KEL LIZAMA MD This examination was interpreted and the report reviewed and electronically signed by: KEL LIZAMA MD on Dec 19 2018 1:40AM EST Normal [facility] XR CHEST 1V FRONTALon 2018 XR CHEST 1V FRONTAL * * *Final Report* * * DATE OF EXAM: Dec 19 2018 8:14PM AKX 5290 - XR CHEST 1V FRONTAL / PROCEDURE REASON: Chest pain or SOB, pleurisy or effusion suspected * * * * Physician Interpretation * * * * EXAMINATION: CHEST RADIOGRAPH (SINGLE VIEW AP OR PA) CLINICAL HISTORY: Chest pain or SOB, pleurisy or effusion suspected, Pleural effusion MQ: XC1_5 Comparison: 12/19/2018 at 4:17 PM RESULT: Lines, tubes, and devices: Stable appearance of the esophagogastric tube with the tip below the left hemidiaphragm. Lungs and pleura: There is continued bibasilar infiltrate or atelectasis. Cardiomediastinal silhouette: Heart is not enlarged and there are median sternotomy wires. Other: . IMPRESSION: Stable appearance. Data Collection Associate: [employer] Transcribe Date/Time: Dec 19 2018 8:24P Dictated by : GERARDO LYN MD This examination was interpreted and the report reviewed and electronically signed by: GERARDO LYN MD on Dec 19 2018 8:25PM EST Normal [facility] XR CHEST 1V FRONTAL * * *Final Report* * * DATE OF EXAM: Dec 19 2018 4:30PM AKX 5290 - XR CHEST 1V FRONTAL / PROCEDURE REASON: Tachycardia * * * * Physician Interpretation * * * * EXAMINATION: CHEST RADIOGRAPH (SINGLE VIEW AP OR PA) CLINICAL HISTORY: Tachycardia MQ: XC1_5 Comparison: 12/18/2018 RESULT: Lines, tubes, and devices: There is an esophagogastric tube which has its tip in the region of the proximal duodenum. Lungs and pleura: There is continued bilateral lower lung zone infiltrate or atelectasis. Cardiomediastinal silhouette: Heart is not enlarged. There are median sternotomy wires. Other: . IMPRESSION: Esophagogastric tube as discussed. Stable appearance of the heart and lungs otherwise. Data Collection Associate: [facility] Transcribe Date/Time: Dec 19 2018 4:39P Dictated by : GERARDO LYN MD This examination was interpreted and the report reviewed and electronically signed by: GERARDO LYN MD on Dec 19 2018 4:40PM EST Normal [facility] XR CHEST 1V FRONTAL * * *Final Report* * * DATE OF EXAM: Dec 18 2018 10:35PM AKX 5290 - XR CHEST 1V FRONTAL / PROCEDURE REASON: Cough, new onset * * * * Physician Interpretation * * * * EXAMINATION: CHEST RADIOGRAPH (SINGLE VIEW AP OR PA) CLINICAL HISTORY: Cough. MQ: XC1_5 Comparison: CT abdomen and pelvis study 12/18/2018 and prior chest radiographs, the most recent 08/07/2018 RESULT: Lines, tubes, and devices: Monitoring wires overlie the chest. There is an endotracheal tube extending below the diaphragm. The tip is not included. There is a right upper quadrant surgical drain.. Lungs and pleura: Lung volumes are diminished. There is a right perihilar infiltrate. Mild elevated right hemidiaphragm with blunting of the lateral costophrenic angle. Cardiomediastinal silhouette: Stable cardiac and mediastinal silhouette with moderate sized air-containing hiatal hernia. Other: There is air below the left hemidiaphragm, presumed within bowel. IMPRESSION: Right perihilar infiltrate, possible atelectasis or pneumonia. Blunted right lateral costophrenic angle suggesting pleural effusion. Enteric tube extending below the diaphragm. Data Collection Associate: [facility] Transcribe Date/Time: Dec 19 2018 7:36A Dictated by : ANDERSON GORDILLO MD This examination was interpreted and the report reviewed and electronically signed by: ANDERSON GORDILLO MD on Dec 19 2018 7:41AM EST Normal [facility] CT ABD/PEL W IVCONon 019 CT ABD/PEL W IVCON * * *Final Report* * * DATE OF EXAM: Dec 18 2018 10:02AM [facility] 0530 - CT ABD/PEL W IVCON / PROCEDURE REASON: Nausea, vomiting * * * * Physician Interpretation * * * * EXAMINATION: CT ABDOMEN AND PELVIS WITH IV CONTRAST CLINICAL HISTORY: Status post laparoscopic cholecystectomy on 12/15/2018. Abdominal pain with nausea and vomiting. TECHNIQUE: CT of the abdomen and pelvis was performed using standard technique, scanning from just above the dome of the diaphragm to the symphysis pubis. MQ: CTAP_3 Contrast: IV: 150 ml of Omnipaque 300 Oral: 900 ml of 50ML Omnipaque [address] Radiation dose: Integrated Dose-length product (DLP) for this visit = 405 mGy*cm. CT Dose Reduction Employed: Automated exposure control(AEC) and iterative recon COMPARISON: 12/14/2018 RESULT: Liver: No focal abnormality. Biliary: Status post cholecystectomy. No bile duct dilatation. Fluid collection within the gallbladder fossa is ill-defined measuring up to 4.0 cm in diameter. Second smaller fluid collection near the surgical clips measuring 1.8 cm in diameter. Trace amount of fluid below the gallbladder fossa. Surgical drain passes just below the gallbladder fossa. Spleen: Unremarkable. Pancreas: Unremarkable. Adrenals: Unremarkable Kidneys: 3.3 cm cyst lateral upper pole left kidney. Several smaller hypodensities noted lower pole left kidney and scattered through out the right kidney. These are too small to further characterize. They most likely represent cysts. GI tract: Large sliding-type hiatal hernia with reflux of contrast superiorly into a dilated esophagus. The stomach is distended with oral contrast. Small bowel is dilated. Distal small bowel near the terminal ileum is not significantly dilated. The ascending and transverse colon are distended with gas. Descending colon is collapsed. Lymph nodes: No abdominal or pelvic lymphadenopathy. Mesentery/Peritoneum: Small amount of ascites adjacent to the liver. Free air anterior to the liver from recent surgical procedure. Retroperitoneum: No significant additional findings. Vasculature: The celiac axis and SMA are patent. The portal vein and branches, splenic vein, SMV, and hepatic veins are patent. Pelvis: No mass or fluid collection is seen within the pelvis. Bones/Soft Tissues: The patient has had posterior decompression lower lumbar spine. Lower thorax: Small right-sided pleural effusion. Atelectasis right lower lobe. The patient is status post median sternotomy. IMPRESSION: Dilated stomach and small bowel. The small bowel is dilated down to the distal ileum. . There is distention of the ascending colon and transverse colon. Some of the underlying bowel dilatation may be ileus. Distal small bowel obstruction cannot be excluded. The stomach is dilated with contrast. There is a large sliding-type hiatal hernia with dilatation of the esophagus and reflux of contrast superiorly. The patient is at increased risk for aspiration. Small fluid collections in the gallbladder fossa most likely represent small hematoma versus seroma. Very small biloma cannot be excluded. Findings were called to covering caregiver on pager [phone] at time of dictation. Data Collection Associate: [facility] Transcribe Date/Time: Dec 18 2018 10:28A Dictated by : JAYDEN MUNIZ MD This examination was interpreted and the report reviewed and electronically signed by: JAYDEN MUNIZ MD on Dec 18 2018 10:55AM EST Normal [facility] Comprehensive Panelon 2018 ALP [Catalytic activity/Vol] 63 U/L Normal 45-117 [facility] Comment on above: Performed By: #### A BID #### [facility] [address] [place], [place] [address] Bilirubin [Mass/Vol] 0.8 mg/dL Normal 0.2-1.0 [facility] Comment on above: Performed By: #### A BID #### [facility] [address] [place], [place] [address] Protein [Mass/Vol] 5.4 g/dL Low 6.4-8.2 [facility] Comment on above: Performed By: #### A BID #### [facility] [address] [place], [place] [address] AST [Catalytic activity/Vol] 71 U/L High 15-37 [facility] Comment on above: Performed By: #### A BID #### [facility] [address] [place], [place] [address] Creatinine [Mass/Vol] 0.73 mg/dL Normal 0.67-1.17 [facility] Comment on above: Performed By: #### A BID #### [facility] [address] [place], [place] [address] ALT [Catalytic activity/Vol] 88 U/L High 12-78 [facility] Comment on above: Performed By: #### A BID #### [facility] [address] [place], [place] [address] Albumin [Mass/Vol] 2.3 g/dL Low 3.4-5.0 [facility] Comment on above: Performed By: #### A BID #### [facility] [address] [place], [place] [address] Anion gap [Moles/Vol] 8 mmol/L Normal 8-16 [facility] Comment on above: Performed By: #### A BID #### [facility] [address] [place], [place] [address] CO2 [Moles/Vol] 24 mmol/L Normal 21-32 [facility] Comment on above: Performed By: #### A BID #### [facility] [address] [place], [place] [address] Urea nitrogen [Mass/Vol] 20 mg/dL High 7-18 [facility] Comment on above: Performed By: #### A BID #### [facility] [address] [place], [place] [address] Calcium [Mass/Vol] 7.9 mg/dL Low 8.5-10.1 [facility] Comment on above: Performed By: #### A BID #### [facility] [address] [place] [address] Glucose [Mass/Vol] 122 mg/dL High 70-99 [facility] Comment on above: Performed By: #### A BID #### [facility] [address] [place], [place] [address] Chloride [Moles/Vol] 104 mmol/L Normal 98-107 [facility] Comment on above: Performed By: #### A BID #### [facility] [address] [place], [place] [address] Potassium [Moles/Vol] 4.7 mmol/L Normal 3.5-5.1 [facility] Comment on above: Performed By: #### A BID #### [facility] [address] [place] [address] Sodium [Moles/Vol] 131 mmol/L Low 136-145 [facility] Comment on above: Performed By: #### A BID #### [facility] [address] [place] [address] Hemogram/Diffon 12-18-2018 Abs Immature Grans 0.09 thou/cmm High 0.00-0.05 [facility] Comment on above: Performed By: #### A BID #### [place] [address] Abs Neut (ANC) 10.84 thou/cmm High 1.78-5.38 [facility] Comment on above: Performed By: #### A BID #### [facility] [address] [place] [address] Abs. Baso 0.02 thou/cmm Normal 0.01-0.08 [facility] Comment on above: Result Comment: Smea r scanned; tech agrees with automated differential Performed By: #### A BID #### [facility] [address] [place] [address] Abs. Story 0.80 thou/cmm Normal 0.30-0.82 [facility] Comment on above: Performed By: #### A BID #### [place] [address] Basophils/100 WBC (Bld) 0.2 % Normal A [facility] Comment on above: Performed By: #### A BID #### [place] [address] Eosinophils (Bld) [#/Vol] 0.16 thou/cmm Normal 0.04-0.54 [facility] Comment on above: Performed By: #### A BID #### [place] [address] Eosinophils/100 WBC (Bld) 1.3 % Normal [facility] Comment on above: Performed By: #### A BID #### [place] [address] Immature Grans 0.70 % Normal [facility] Comment on above: Performed By: #### A BID #### [facility] [address] [place] [address] Lymphocytes (Bld) [#/Vol] 0.28 thou/cmm Low 0.84-2.85 [facility] Comment on above: Performed By: #### A BID #### [place] [address] Lymphocytes/100 WBC (Bld) 2.3 % Normal [facility] Comment on above: Performed By: #### A BID #### [facility] [address] [place] [address] Monocytes/100 WBC (Bld) 6.6 % Normal A [facility] Comment on above: Performed By: #### A BID #### [facility] [address] [place] [address] Seg Neutrophil 88.9 % Normal [facility] Comment on above: Performed By: #### A BID #### [facility] [address] [place] [address] Erythrocyte distribution width (RBC) [Ratio] 16.0 % High 11.6-14.4 [facility] Comment on above: Performed By: #### A BID #### [facility] [address] [place] [address] Hematocrit (Bld) [Volume fraction] 28.2 % Low 40.1-51.0 [facility] Comment on above: Performed By: #### A BID #### [facility] [address] [place] [address] Hemoglobin (Bld) [Mass/Vol] 9.4 g/dL Low 13.7-17.5 [facility] Comment on above: Performed By: #### A BID #### [facility] [address] [place] [address] MCH (RBC) [Entitic mass] 34.1 pg High 25.7-32.2 [facility] Comment on above: Performed By: #### A BID #### [facility] [address] [place] [address] MCHC (RBC) [Mass/Vol] 33.3 % Normal 32.3-36.5 [facility] Comment on above: Performed By: #### A BID #### [facility] [address] [place] [address] MCV (RBC) [Entitic vol] 102.2 fL High 83.2-95.6 [facility] Comment on above: Performed By: #### A BID #### [facility] [address] [place] [address] Platelet mean volume (Bld) [Entitic vol] 10.7 fL Normal 8.7-12.0 [facility] Comment on above: Performed By: #### A BID #### [facility] [address] [place], [place] [address] Platelets (Bld) [#/Vol] 226 thou/cmm Normal 141-365 [facility] Comment on above: Performed By: #### A BID #### [facility] [address] [place] [address] RBC (Bld) [#/Vol] 2.76 mil/cmm Low 4.63-6.08 [facility] Comment on above: Performed By: #### A BID #### [facility] [address] [place] [address] RDW SD 60.1 fl High 36.1-45.8 [facility] Comment on above: Performed By: #### A BID #### [facility] [address] [place] [address] WBC (Bld) [#/Vol] 12.19 thou/cmm High 4.23-9.07 [facility] Comment on above: Performed By: #### A BID #### [facility] [address] [place] [address] IR INTRO NASO OR OROGASTRIC TUBEon 12-18-2018 IR INTRO NASO OR OROGASTRIC TUBE * * *Final Report* * * DATE OF EXAM: Dec 18 2018 3:00PM MAGY [id number] - IR INTRO NASO OR OROGASTRIC TUBE / PROCEDURE REASON: Acute distention of stomach * * * * Physician Interpretation * * * * EXAM TITLE: FLUOROSCOPICALLY GUIDED NASOGASTRIC TUBE PLACEMENT DATE: 12/18/2018 COMPARISON: No direct comparison. CT 12/18/2018 CLINICAL INDICATION/HISTORY: 77-year-old man with history of ileus/small bowel obstruction following cholecystectomy on 12/15/2018. TECHNIQUE: The risks and benefits of the procedure was explained to the patient and consent was obtained. The nares were initially anesthetized with lidocaine jelly (1%). Access into the stomach was obtained using a combination of a .035 angled Glidewire and a 5Fr Berenstein catheter under direct fluoroscopic guidance. The nasogastric tube was passed through the nasopharynx, oropharynx, esophagus, stomach, and pyloric channel, and duodenum with the tip located in the proximal duodenum. Contrast is injected to confirm the position of the nasogastric tube tube. The nasogastric tube was then secured with tape. 4 spot films were obtained. Contrast: gastrointestinal: 20 ml of OMNIPAQUE 300 Fluoroscopy radiation summary: Fluoroscopy time: 2:12 (min:sec) Air kerma: 49.0 mGy FINDINGS: Successful fluoroscopic placement of nasogastric tube into the proximal duodenum with immediate return of 1500 cc of foul-smelling, gastric/bilious contents. IMPRESSION: Successful fluoroscopic placement of nasogastric into the proximal duodenum. There was immediate return of 1500 cc of foul-smelling, gastric/bilious contents. Nasogastric tube placed to wall suction. Data Collection Associate[facility] Transcribe Date/Time: Dec 18 2018 4:31P Dictated by : FAIZAN WARD MD This examination was interpreted and the report reviewed and electronically signed by: FAIZAN WARD MD on Dec 18 2018 4:37PM EST Normal [facility] Urinalysis Routineon 019 Bacteria LM.HPF (Urine sed) [#/Area] NONE Normal None [facility] Comment on above: Performed By: #### A BID #### [place] [address] Ep Cells Urine 0.3 /hpf Normal 0.0-5.0 [facility] Comment on above: Performed By: #### A BID #### [place] [address] Hyaline Cast 0.3 /lpf Normal 0.0-1.0 [facility] Comment on above: Performed By: #### A BID #### [facility] [address] [place] [address] RBC LM.HPF (Urine sed) [#/Area] 4.2 /[HPF] Normal 0.0-5.0 [facility] Comment on above: Performed By: #### A BID #### [facility] [address] [place] [address] WBC LM.HPF (Urine sed) [#/Area] 2.3 /[HPF] Normal 0.0-5.0 [facility] Comment on above: Performed By: #### A BID #### [facility] [address] [place] [address] Appearance (U) CLEAR Normal [facility] Comment on above: Performed By: #### A BID #### [facility] [address] [place] [address] Bilirubin (U) [Mass/Vol] see below Abnormal Negative [facility] Comment on above: Result Comment: Dete cted (Unable to confirm). Performed By: #### A BID #### [facility] [address] [place] [address] Color (U) DK YELLOW Normal [place] [employer] [facility] Comment on above: Performed By: #### A BID #### [facility] [address] [place] [address] Glucose Ql (U) Negative Normal Negative [place] [employer] [facility] Comment on above: Performed By: #### A BID #### [facility] [address] [place] [address] Hemoglobin,Urine Negative Normal Negative [place] [employer] [facility] Comment on above: Performed By: #### A BID #### [facility] [address] [place] [address] Ketone Urine TRACE Abnormal Negative [facility] Comment on above: Performed By: #### A BID #### [facility] [address] [place] [address] Leukocytes Esterase Negative Normal Negative [facility] Comment on above: Performed By: #### A BID #### [facility] [address] [place] [address] Nitrites Urine Negative Normal Negative [place] [employer] [facility] Comment on above: Performed By: #### A BID #### [facility] [address] [place] [address] pH (U) 6.0 [pH] Normal 5.0-8.0 [place] [employer] [facility] Comment on above: Performed By: #### A BID #### [facility] [address] [place] [address] Protein (U) [Mass/Vol] 30 mg/dL Abnormal Negative [facility] Comment on above: Performed By: #### A BID #### [facility] [address] [place] [address] Specific [place], Ur >1.045 Abnormal 1.005-1.030 [facility] Comment on above: Performed By: #### A BID #### [place] [address] Urobilinogen,Ur 1.0 EU/dL Normal 0.2-1.0 [facility] Comment on above: Performed By: #### A BID #### [place] [address] Appearance (U) 4+ (TURBID) Normal [facility] Comment on above: Performed By: #### A BID #### [place] [address] Bacteria LM.HPF (Urine sed) [#/Area] NONE Normal None [facility] Comment on above: Performed By: #### A BID #### [place] [address] Bilirubin (U) [Mass/Vol] * Normal Negative [facility] Comment on above: Performed By: #### A BID #### [place] [address] Color (U) ORANGE Normal [facility] Comment on above: Performed By: #### A BID #### [place] [address] Comment Urines See Below Normal [facility] Comment on above: Result Comment: [place] r abnormal-macroscopic not done. Performed By: #### A BID #### [place] [address] Ep Cells Urine 5.1 /hpf High 0.0-5.0 [facility] Comment on above: Performed By: #### A BID #### [place] [address] Glucose Ql (U) * Normal Negative [facility] Comment on above: Performed By: #### A BID #### [place] [address] Hemoglobin,Urine * Normal Negative [facility] Comment on above: Performed By: #### A BID #### [facility] [address] [place] [address] Hyaline Cast 0.0 /lpf Normal 0.0-1.0 [facility] Comment on above: Performed By: #### A BID #### [facility] [address] [place] [address] Ketone Urine * Normal Negative [facility] Comment on above: Performed By: #### A BID #### [facility] [address] [place] [address] Leukocytes Esterase * Normal Negative [facility] Comment on above: Performed By: #### A BID #### [facility] [address] [place] [address] Nitrites Urine * Normal Negative [facility] Comment on above: Performed By: #### A BID #### [facility] [address] [place] [address] pH (U) * Normal 5.0-8.0 [facility] Comment on above: Performed By: #### A BID #### [place] [address] Protein (U) [Mass/Vol] * Normal Negative [facility] Comment on above: Performed By: #### A BID #### [facility] [address] [place] [address] RBC LM.HPF (Urine sed) [#/Area] 3.3 /[HPF] Normal 0.0-5.0 [facility] Comment on above: Performed By: #### A BID #### [facility] [address] [place] [address] Specific [place], Ur >=1.035 Abnormal 1.005-1.030 [facility] Comment on above: Performed By: #### A BID #### [facility] [address] [place] [address] Urobilinogen,Ur * Normal 0.2-1.0 [facility] Comment on above: Performed By: #### A BID #### [place] [address] WBC LM.HPF (Urine sed) [#/Area] 14.5 /[HPF] High 0.0-5.0 [facility] Comment on above: Performed By: #### A BID #### [facility] [address] [place] [address] Comprehensive Panelon 2018 ALP [Catalytic activity/Vol] 72 U/L Normal 45-117 [facility] Comment on above: Performed By: #### P 14 #### [facility] [address] [place], [place] [address] Protein [Mass/Vol] 6.2 g/dL Low 6.4-8.2 [facility] Comment on above: Performed By: #### P 14 #### [facility] [address] [place], [place] [address] Bilirubin [Mass/Vol] 1.2 mg/dL High 0.2-1.0 [facility] Comment on above: Performed By: #### P 14 #### [facility] [address] [place], [place] [address] ALT [Catalytic activity/Vol] 78 U/L Normal 12-78 [facility] Comment on above: Performed By: #### P 14 #### [facility] [address] [place], [place] [address] AST [Catalytic activity/Vol] 60 U/L High 15-37 [facility] Comment on above: Performed By: #### P 14 #### [facility] [address] [place], [place] [address] Creatinine [Mass/Vol] 0.78 mg/dL Normal 0.67-1.17 [facility] Comment on above: Performed By: #### P 14 #### [facility] [address] [place], [place] [address] Albumin [Mass/Vol] 2.8 g/dL Low 3.4-5.0 [facility] Comment on above: Performed By: #### P 14 #### [facility] [address] [place], [place] [address] Anion gap [Moles/Vol] 11 mmol/L Normal 8-16 [facility] Comment on above: Performed By: #### P 14 #### [facility] [address] [place], [place] [address] CO2 [Moles/Vol] 22 mmol/L Normal 21-32 [facility] Comment on above: Performed By: #### P 14 #### [facility] [address] [place], [place] [address] Glucose [Mass/Vol] 149 mg/dL High 70-99 [facility] Comment on above: Performed By: #### P 14 #### [facility] [address] [place], [place] [address] Calcium [Mass/Vol] 8.5 mg/dL Normal 8.5-10.1 [facility] Comment on above: Performed By: #### P 14 #### [facility] [address] [place], [place] [address] Urea nitrogen [Mass/Vol] 21 mg/dL High 7-18 [facility] Comment on above: Performed By: #### P 14 #### [address] [address] Chloride [Moles/Vol] 101 mmol/L Normal 98-107 [facility] Comment on above: Performed By: #### P 14 #### [facility] [address] [place], [place] [address] Potassium [Moles/Vol] 4.2 mmol/L Normal 3.5-5.1 [facility] Comment on above: Performed By: #### P 14 #### [facility] [address] [place], [place] [address] Sodium [Moles/Vol] 130 mmol/L Low 136-145 [facility] Comment on above: Performed By: #### P 14 #### [facility] [address] [place], [place] [address] Cult Bloodon 12-17-2018 Cult Blood Test performed at [facility] No growth Normal [facility] Comment on above: Performed By: #### A BID #### [facility] [address] [place], [place] [address] Hemogram/Diffon 12-17-2018 Abs Immature Grans 0.14 thou/cmm High 0.00-0.05 [facility] Comment on above: Performed By: #### C BCD1 #### [facility] [address] [place] [address] Abs Neut (ANC) 14.45 thou/cmm High 1.78-5.38 [facility] Comment on above: Performed By: #### C BCD1 #### [facility] [address] [place] [address] Abs. Baso 0.02 thou/cmm Normal 0.01-0.08 [facility] Comment on above: Performed By: #### C BCD1 #### [facility] [address] [place] [address] Abs. Story 0.89 thou/cmm High 0.30-0.82 [facility] Comment on above: Performed By: #### C BCD1 #### [facility] [address] [place] [address] Basophils/100 WBC (Bld) 0.1 % Normal [facility] Comment on above: Performed By: #### C BCD1 #### [facility] [address] [place] [address] Eosinophils (Bld) [#/Vol] 0.06 thou/cmm Normal 0.04-0.54 [facility] Comment on above: Performed By: #### C BCD1 #### [facility] [address] [place] [address] Eosinophils/100 WBC (Bld) 0.4 % Normal [facility] Comment on above: Performed By: #### C BCD1 #### [facility] [address] [place] [address] Erythrocyte distribution width (RBC) [Ratio] 16.3 % High 11.6-14.4 [facility] Comment on above: Performed By: #### C BCD1 #### [facility] [address] [place] [address] Hematocrit (Bld) [Volume fraction] 32.6 % Low 40.1-51.0 [facility] Comment on above: Performed By: #### C BCD1 #### [place] [address] Hemoglobin (Bld) [Mass/Vol] 10.9 g/dL Low 13.7-17.5 [facility] Comment on above: Performed By: #### C BCD1 #### [facility] [address] [place], [place] [address] Immature Grans 0.90 % Normal [facility] Comment on above: Performed By: #### C BCD1 #### [facility] [address] [place], [place] [address] Lymphocytes (Bld) [#/Vol] 0.33 thou/cmm Low 0.84-2.85 [facility] Comment on above: Performed By: #### C BCD1 #### [facility] [address] [place], [place] [address] Lymphocytes/100 WBC (Bld) 2.1 % Normal [facility] Comment on above: Performed By: #### C BCD1 #### [facility] [address] [place], [place] [address] MCH (RBC) [Entitic mass] 33.4 pg High 25.7-32.2 [facility] Comment on above: Performed By: #### C BCD1 #### [facility] [address] [place], [place] [address] MCHC (RBC) [Mass/Vol] 33.4 % Normal 32.3-36.5 [facility] Comment on above: Performed By: #### C BCD1 #### [facility] [address] [place], [place] [address] MCV (RBC) [Entitic vol] 100.0 fL High 83.2-95.6 [facility] Comment on above: Performed By: #### C BCD1 #### [facility] [address] [place], [place] [address] Monocytes/100 WBC (Bld) 5.6 % Normal [facility] Comment on above: Performed By: #### C BCD1 #### [facility] [address] [place], [place] [address] Nucleated RBC (Bld) [#/Vol] 0.03 thou/cmm High 0.00-0.01 [facility] Comment on above: Performed By: #### C BCD1 #### [facility] [address] [place], [place] [address] Nucleated RBC/100 WBC (Bld) [Ratio] 0.2 % Normal 0.0-0.2 [facility] Comment on above: Performed By: #### C BCD1 #### [facility] [address] [place], [place] [address] Platelet mean volume (Bld) [Entitic vol] 10.4 fL Normal 8.7-12.0 [facility] Comment on above: Performed By: #### C BCD1 #### [facility] [address] [place], [place] [address] Platelets (Bld) [#/Vol] 244 thou/cmm Normal 141-365 [facility] Comment on above: Performed By: #### C BCD1 #### [facility] [address] [place], [place] [address] RBC (Bld) [#/Vol] 3.26 mil/cmm Low 4.63-6.08 [facility] Comment on above: Performed By: #### C BCD1 #### [facility] [address] [place], [place] [address] RDW SD 60.5 fl High 36.1-45.8 [facility] Comment on above: Performed By: #### C BCD1 #### [facility] [address] [place], [place] [address] Seg Neutrophil 90.9 % Normal [facility] Comment on above: Performed By: #### C BCD1 #### [facility] [address] [place], [place] [address] WBC (Bld) [#/Vol] 15.90 thou/cmm High 4.23-9.07 [facility] Comment on above: Performed By: #### C BCD1 #### [facility] [address] [place], [place] [address] Troponin Ion 12-17-2018 Troponin I.cardiac [Mass/Vol] ng/mL Normal 0.015-0.045 [facility] Comment on above: Performed By: #### A BID #### [facility] [address] [place], [place] [address] XR ABDOMEN 1V SUPINEon 12-17 XR ABDOMEN 1V SUPINE * * *Final Report* * * DATE OF EXAM: Dec 17 2018 1:09AM AKX [id number] - XR ABDOMEN 1V SUPINE / PROCEDURE REASON: Nausea, vomiting * * * * Physician Interpretation * * * * EXAM: XR ABDOMEN 1V SUPINE HISTORY: Postoperative nausea and vomiting COMPARISON: None available FINDINGS: See impression. IMPRESSION: Mildly dilated midabdominal gas-filled small bowel loops. There is a catheter projecting over the right upper abdomen. Given the reported postoperative state, findings are most likely due to ileus. Correlate clinically. Supine evaluation does not evaluate for free air. Data Collection Associate: [facility] Transcribe Date/Time: Dec 17 2018 1:12A Dictated by : LILLIAM BARRY MD This examination was interpreted and the report reviewed and electronically signed by: LILLIAM BARRY MD on Dec 17 2018 1:13AM EST Normal [facility] Comprehensive Panelon 2018 ALP [Catalytic activity/Vol] 54 U/L Normal 45-117 [facility] Comment on above: Performed By: #### P 14 #### [facility] [address] [place], [place] [address] Bilirubin [Mass/Vol] 0.9 mg/dL Normal 0.2-1.0 [facility] Comment on above: Performed By: #### P 14 #### [facility] [address] [place], [place] [address] Protein [Mass/Vol] 5.1 g/dL Low 6.4-8.2 [facility] Comment on above: Performed By: #### P 14 #### [facility] [address] [place], [place] [address] ALT [Catalytic activity/Vol] 63 U/L Normal 12-78 [facility] Comment on above: Performed By: #### P 14 #### [facility] [address] [place], [place] [address] AST [Catalytic activity/Vol] 83 U/L High 15-37 [facility] Comment on above: Performed By: #### P 14 #### [facility] [address] [place], [place] [address] Creatinine [Mass/Vol] 0.82 mg/dL Normal 0.67-1.17 [facility] Comment on above: Performed By: #### P 14 #### [facility] [address] [place], [place] [address] Albumin [Mass/Vol] 2.3 g/dL Low 3.4-5.0 [facility] Comment on above: Performed By: #### P 14 #### [facility] [address] [place], [place] [address] Anion gap [Moles/Vol] 10 mmol/L Normal 8-16 [facility] Comment on above: Performed By: #### P 14 #### [facility] [address] [place], [place] [address] Calcium [Mass/Vol] 7.5 mg/dL Low 8.5-10.1 [facility] Comment on above: Performed By: #### P 14 #### [facility] [address] [place], [place] [address] CO2 [Moles/Vol] 23 mmol/L Normal 21-32 [facility] Comment on above: Performed By: #### P 14 #### [facility] [address] [place], [place] [address] Glucose [Mass/Vol] 105 mg/dL High 70-99 [facility] Comment on above: Performed By: #### P 14 #### [facility] [address] [place], [place] [address] Urea nitrogen [Mass/Vol] 16 mg/dL Normal 7-18 [facility] Comment on above: Performed By: #### P 14 #### [facility] [address] [place], [place] [address] Chloride [Moles/Vol] 102 mmol/L Normal 98-107 [facility] Comment on above: Performed By: #### P 14 #### [facility] [address] [place], [place] [address] Potassium [Moles/Vol] 4.3 mmol/L Normal 3.5-5.1 [facility] Comment on above: Performed By: #### P 14 #### [facility] [address] [place], [place] [address] Sodium [Moles/Vol] 131 mmol/L Low 136-145 [facility] Comment on above: Performed By: #### P 14 #### [facility] [address] [place] [address] Hemogram/Diffon 12-16-2018 Abs Immature Grans 0.10 thou/cmm High 0.00-0.05 [facility] Comment on above: Performed By: #### C BCD1 #### [facility] [address] [place] [address] Abs Neut (ANC) 12.14 thou/cmm High 1.78-5.38 [facility] Comment on above: Performed By: #### C BCD1 #### [facility] [address] [place] [address] Abs. Baso 0.01 thou/cmm Normal 0.01-0.08 [facility] Comment on above: Result Comment: Smea r scanned; tech agrees with automated differential Performed By: #### C BCD1 #### [place] [address] Abs. Story 1.28 thou/cmm High 0.30-0.82 [facility] Comment on above: Performed By: #### C BCD1 #### [place] [address] Basophils/100 WBC (Bld) 0.1 % Normal [facility] Comment on above: Performed By: #### C BCD1 #### [place] [address] Eosinophils (Bld) [#/Vol] 0.01 thou/cmm Low 0.04-0.54 [facility] Comment on above: Performed By: #### C BCD1 #### [place] [address] Eosinophils/100 WBC (Bld) 0.1 % Normal [facility] Comment on above: Performed By: #### C BCD1 #### [place] [address] Immature Grans 0.70 % Normal [facility] Comment on above: Performed By: #### C BCD1 #### [facility] [address] [place], [place] [address] Lymphocytes (Bld) [#/Vol] 0.56 thou/cmm Low 0.84-2.85 [facility] Comment on above: Performed By: #### C BCD1 #### [facility] [address] [place], [place] [address] Lymphocytes/100 WBC (Bld) 4.0 % Normal [facility] Comment on above: Performed By: #### C BCD1 #### [facility] [address] [place], [place] [address] Monocytes/100 WBC (Bld) 9.1 % Normal [facility] Comment on above: Performed By: #### C BCD1 #### [facility] [address] [place], [place] [address] Seg Neutrophil 86.0 % Normal [facility] Comment on above: Performed By: #### C BCD1 #### [facility] [address] [place] [address] Erythrocyte distribution width (RBC) [Ratio] 14.9 % High 11.6-14.4 [facility] Comment on above: Performed By: #### C BCD1 #### [facility] [address] [place] [address] Hematocrit (Bld) [Volume fraction] 24.3 % Low 40.1-51.0 [facility] Comment on above: Performed By: #### C BCD1 #### [facility] [address] [place], [place] [address] Hemoglobin (Bld) [Mass/Vol] 7.9 g/dL Low 13.7-17.5 [facility] Comment on above: Performed By: #### C BCD1 #### [facility] [address] [place], [place] [address] MCH (RBC) [Entitic mass] 34.2 pg High 25.7-32.2 [facility] Comment on above: Performed By: #### C BCD1 #### [facility] [address] [place], [place] [address] MCHC (RBC) [Mass/Vol] 32.5 % Normal 32.3-36.5 [facility] Comment on above: Performed By: #### C BCD1 #### [facility] [address] [place] [address] MCV (RBC) [Entitic vol] 105.2 fL High 83.2-95.6 [facility] Comment on above: Performed By: #### C BCD1 #### [facility] [address] [place] [address] Platelet mean volume (Bld) [Entitic vol] 10.6 fL Normal 8.7-12.0 [facility] Comment on above: Performed By: #### C BCD1 #### [facility] [address] [place] [address] Platelets (Bld) [#/Vol] 154 thou/cmm Normal 141-365 [facility] Comment on above: Performed By: #### C BCD1 #### [facility] [address] [place] [address] RBC (Bld) [#/Vol] 2.31 mil/cmm Low 4.63-6.08 [facility] Comment on above: Performed By: #### C BCD1 #### [facility] [address] [place] [address] RDW SD 57.7 fl High 36.1-45.8 [facility] Comment on above: Performed By: #### C BCD1 #### [facility] [address] [place] [address] WBC (Bld) [#/Vol] 14.12 thou/cmm High 4.23-9.07 [facility] Comment on above: Performed By: #### C BCD1 #### [facility] [address] [place] [address] RBC Productson 12-16-2018 Xmatch Unit 1 see below Normal [facility] Comment on above: Result Comment: Comp atible Performed By: #### R BCPS #### [facility] [address] [place] [address] Antibody Idon 12-15-2018 Antibody Id See Below Normal [facility] Comment on above: Result Comment: Anti -Fya (Chaparro system) may result in a transfusion reaction or cause HDN. Approximately 33% of donor blood will be compatible. Please allow for a short delay in compatibility testing. Performed By: #### A BID #### [place] [address] Direct Coombson 12-15-2018 Nikko Poly Positive Normal NEGATIVE [facility] Comment on above: Performed By: #### D AT #### [place] [address] Elution Positive Normal NEGATIVE [facility] Comment on above: Performed By: #### D AT #### [place] [address] Surgical Tissue Examon 12-15 Surgical Tissue Exam Test performed at [place] [address] NAME: JAYDEN CRAIG REQUESTING: BUDDY LYNN MD COPY TO: SHANE GONZALEZ FINAL DIAGNOSIS: GALLBLADDER, CHOLECYSTECTOMY - ACUTE NECROTIZING CHOLECYSTITIS. SEE COMMENT. COMMENT: Dr. Matt Mcknight reviewed the case and agrees with the diagnosis. OPERATIVE PROCEDURE: Laparoscopic cholecystectomy CLINICAL INFORMATION: Acute cholecystitis [K81.0] GROSS DESCRIPTION: Gallbladder Received in formalin labeled gallbladder is a gallbladder measuring 9.8 x 7.4 x 4.2 cm. The lumen of the specimen is serially dilated. A perforation is not present. The serosal surface is yellow-red and hemorrhagic in appearance. The wall of the specimen measures 0.1 cm in thickness. Calculi are not present. A calculus is not impacted in the cystic duct. The mucosal surface is red, hemorrhagic and displays areas resembling possible ischemic processes. Clinical Research Tech sections are submitted in formalin in three cassettes (1 - duct). KVB:modesta PATTON M.D. PATHOLOGIST (Electronic signature on file) Signed out: 12/20/2018 09:13 PRINTED: 12/20/2018 Page 1 of 1 Normal [facility] Comment on above: Performed By: #### C BCD1 #### [place] [address] Type and Screenon 12-15-2018 AutoControl Positive Normal NEGATIVE [facility] Comment on above: Performed By: #### T &S #### [facility] [address] [place] [address] ABO group Nom (Bld) O Normal [facility] Comment on above: Performed By: #### T &S #### [facility] [address] [place] [address] Comment See Below Normal [facility] Comment on above: Result Comment: Scre en &/or Xmatch expires in 3 days at 12 midnight. Redraw patient at that time. Performed By: #### T &S #### [facility] [address] [place] [address] RH Type Positive Normal [facility] Comment on above: Performed By: #### T &S #### [facility] [address] [place] [address] Vital Signs Date Time Vital Sign Value Performing Clinician Facility 12-18-2024 08:52-0500 Heart rate 103 /min Dr. Eloisa Espinal MD Work Phone: 9(357)529-331480 [place] [address] 12-18-2024 08:49-0500 Body temperature 97.4 [degF] Dr. Eloisa Espinal MD Work Phone: 0(588)091-043125 [place] [address] 12-18-2024 08:49-0500 Diastolic blood pressure 66 mm[Hg] Dr. Eloisa Espinal MD Work Phone: 2(276)854-118280 [place] [address] 12-18-2024 08:49-0500 Respiratory rate 18 /min Dr. Eloisa Espinal MD Work Phone: 3(332)865-120780 [place] [address] 12-18-2024 08:49-0500 SaO2% (BldA) [Mass fraction] 97 % Dr. Eloisa Espinal MD Work Phone: 1(114)836-406680 [place] [address] 12-18-2024 08:49-0500 Systolic blood pressure 100 mm[Hg] Dr. Eloisa Espinal MD Work Phone: 3(108)766-163880 [place] [address] 12-17-2024 14:17-0500 Body height 172.[address] Eloisa Espinal MD Work Phone: 8(110)089-121780 [place] [address] 12-17-2024 14:17-0500 Body weight 69.[address] Eloisa Espinal MD Work Phone: [facility] 12-16-2024 15:31-0500 Body mass index (BMI) [Ratio] 23.3 kg/m2 Dr. Eloisa Espinal MD Work Phone: [facility] 12-04-2024 00:45-0400 SaO2% (BldA) [Mass fraction] % [facility] Comment on above: Order Comment: Specimen Type: ARTERIAL B LOOD SPECIMENOrdering Facility: [facility] Address: [address] [place] [address] Performed By: #### A LLBG ####[facility] [id number] [id number] [place], [place] [address] 12-02-2024 23:32-0400 SaO2% (BldA) [Mass fraction] 100 % [facility] Comment on above: Order Comment: Specimen Type: ARTERIAL B LOOD SPECIMENOrdering Facility: [facility] Address: [address] [place] [address] Performed By: #### A LLBG ####[facility] [id number] [facility] [id number] [place], [place] [address] 11-30-2024 15:57-0400 Body temperature 98.4 [degF] Dr. Eloisa Espinal MD Work Phone: [facility] 11-30-2024 15:57-0400 Diastolic blood pressure 75 mm[Hg] Dr. Eloisa Espinal MD Work Phone: [facility] 11-30-2024 15:57-0400 Heart rate 94 /min Dr. Eloisa Espinal MD Work Phone: 9(772)336-192980 [place] [address] 11-30-2024 15:57-0400 Respiratory rate 20 /min Dr. Eloisa Espinal MD Work Phone: [facility] 11-30-2024 15:57-0400 SaO2% (BldA) [Mass fraction] 96 % Dr. Eloisa Espinal MD Work Phone: 3(963)128-625725 [place] [address] 11-30-2024 15:57-0400 Systolic blood pressure 129 mm[Hg] Dr. Eloisa Espinal MD Work Phone: 5(382)618-903925 [place] [address] 11-30-2024 10:27-0400 Body mass index (BMI) [Ratio] 27.5 kg/m2 Dr. Eloisa Espinal MD Work Phone: 9(133)600-130525 [place] [address] 11-30-2024 10:27-0400 Body weight 82.[address] Eloisa Espinal MD Work Phone: 8(229)881-166625 [place] [address] 11-11-2024 14:32-0400 Body height 172.[address] Eloisa Espinal MD Work Phone: 7(205)816-789525 [place] [address] 11-11-2024 14:32-0400 Body mass index (BMI) [Ratio] 26.7 kg/m2 Dr. Eloisa Espinal MD Work Phone: 9(938)100-537725 [place] [address] 11-11-2024 14:32-0400 Body weight 79.[address] Eloisa Espinal MD Work Phone: 4(273)369-326725 [place] [address] 11-11-2024 14:32-0400 Diastolic blood pressure 68 mm[Hg] Dr. Eloisa Espinal MD Work Phone: 4(129)209-621825 [place] [address] 11-11-2024 14:32-0400 Heart rate 96 /min Dr. Eloisa Espinal MD Work Phone: 4(378)810-840925 [place] [address] 11-11-2024 14:32-0400 Respiratory rate 20 /min Dr. Eloisa Espinal MD Work Phone: 2(630)439-242525 [place] [address] 11-11-2024 14:32-0400 Systolic blood pressure 129 mm[Hg] Dr. Eloisa Espinal MD Work Phone: 5(501)143-067683 [place] [address] 10-02-2024 10:53-0400 Body height 175.3 cm Dk Bynum MD Work Phone: [facility] 10-02-2024 10:53-0400 Body mass index (BMI) [Ratio] 25.84 kg/m2 Dk Bynum MD Work Phone: [facility] 10-02-2024 10:53-0400 Body temperature 97.5 [degF] Dk Bynum MD Work Phone: [facility] 10-02-2024 10:53-0400 Body weight 79.38 kg Dk Bynum MD Work Phone: [facility] 10-02-2024 10:53-0400 Diastolic blood pressure 68 mm[Hg] Dk Bynum MD Work Phone: [facility] 10-02-2024 10:53-0400 Heart rate 80 /min Dk Bynum MD Work Phone: [facility] 10-02-2024 10:53-0400 Respiratory rate 18 /min Dk Bynum MD Work Phone: [facility] 10-02-2024 10:53-0400 SaO2% (BldA) [Mass fraction] 99 % Dk Bynum MD Work Phone: [facility] 10-02-2024 10:53-0400 Systolic blood pressure 116 mm[Hg] Dk Bynum MD Work Phone: [facility] 09-15-2024 13:15-0400 Body height 175.3 cm Mary Kennedy MD Work Phone: [facility] 09-15-2024 13:15-0400 Body mass index (BMI) [Ratio] 25.99 kg/m2 Mary Kennedy MD Work Phone: [facility] 09-15-2024 13:15-0400 Body weight 79.83 kg Mary Kennedy MD Work Phone: [facility] 09-15-2024 13:15-0400 Diastolic blood pressure 62 mm[Hg] Mary Kennedy MD Work Phone: [facility] 09-15-2024 13:15-0400 Heart rate 88 /min Mary Kennedy MD Work Phone: [facility] 09-15-2024 13:15-0400 Respiratory rate 20 /min Mary Kennedy MD Work Phone: [facility] 09-15-2024 13:15-0400 SaO2% (BldA) [Mass fraction] 97 % Mary Kennedy MD Work Phone: [facility] 09-15-2024 13:15-0400 Systolic blood pressure 110 mm[Hg] Mary Kennedy MD Work Phone: [facility] 08-19-2024 10:15-0400 Body height 172.[address] Eloisa Espinal MD Work Phone: 2(042)620-721280 [place] [address] 08-19-2024 10:15-0400 Body mass index (BMI) [Ratio] 26.6 kg/m2 Dr. Eloisa Espinal MD Work Phone: 8(678)209-359325 [place] [address] 08-19-2024 10:15-0400 Body weight 79.[address] Eloisa Espinal MD Work Phone: 8(235)703-134925 [place] [address] 08-19-2024 10:15-0400 Diastolic blood pressure 59 mm[Hg] Dr. Eloisa Espinal MD Work Phone: 0(378)501-176425 [place] [address] 08-19-2024 10:15-0400 Heart rate 86 /min Dr. Eloisa Espinal MD Work Phone: 9(764)061-742525 [place] [address] 08-19-2024 10:15-0400 Respiratory rate 18 /min Dr. Eloisa Espinal MD Work Phone: 5(831)840-604380 [place] [address] 08-19-2024 10:15-0400 Systolic blood pressure 102 mm[Hg] Dr. Eloisa Espinal MD Work Phone: 4(694)066-943625 [place] [address] 08-06-2024 08:50-0400 Body height 172.[address] Eloisa Espinal MD Work Phone: 5(995)763-999625 [place] [address] 08-06-2024 08:50-0400 Body weight 80.[address] Eloisa Espinal MD Work Phone: 3(958)158-772025 [place] [address] 08-05-2024 09:13-0400 Body mass index (BMI) [Ratio] 27 kg/m2 Dr. Eloisa Espinal MD Work Phone: 4(701)286-994325 [place] [address] 07-04-2024 08:59-0400 Heart rate 104 /min Dr. Eloisa Espinal MD Work Phone: 3(465)977-016525 [place] [address] 07-04-2024 08:57-0400 Body temperature 98.8 [degF] Dr. Eloisa Espinal MD Work Phone: 2(311)140-393525 [place] [address] 07-04-2024 08:57-0400 Diastolic blood pressure 68 mm[Hg] Dr. Eloisa Espinal MD Work Phone: 8(252)610-227425 [place] [address] 07-04-2024 08:57-0400 Respiratory rate 14 /min Dr. Eloisa Espinal MD Work Phone: 9(469)687-802525 [place] [address] 07-04-2024 08:57-0400 SaO2% (BldA) [Mass fraction] 98 % Dr. Eloisa Espinal MD Work Phone: 3(981)627-908925 [place] [address] 07-04-2024 08:57-0400 Systolic blood pressure 117 mm[Hg] Dr. Eloisa Espinal MD Work Phone: 5(753)304-226480 [place] [address] 07-03-2024 11:39-0400 Body mass index (BMI) [Ratio] 25.5 kg/m2 Dr. Eloisa Espinal MD Work Phone: 8(391)911-544225 [place] [address] 07-03-2024 11:39-0400 Body weight 80.[address] Eloisa Espinal MD Work Phone: 3(983)587-083880 [place] [address] 05-16-2024 10:50-0400 Body mass index (BMI) [Ratio] 25.85 kg/m2 Eloisa Espinal MD Work Phone: [facility] 05-16-2024 10:50-0400 Body weight 79.4 kg Eloisa Espinal MD Work Phone: [facility] 05-16-2024 10:50-0400 Diastolic blood pressure 64 mm[Hg] Eloisa Espinal MD Work Phone: [facility] 05-16-2024 10:50-0400 Heart rate 78 /min Eloisa Espinal MD Work Phone: [facility] 05-16-2024 10:50-0400 Respiratory rate 20 /min Eloisa Espinal MD Work Phone: [facility] 05-16-2024 10:50-0400 Systolic blood pressure 102 mm[Hg] Eloisa Espinal MD Work Phone: [facility] 05-05-2024 14:06-0400 Body mass index (BMI) [Ratio] 26.24 kg/m2 Eloisa Espinal MD Work Phone: [facility] 05-05-2024 14:06-0400 Body weight 80.6 kg Eloisa Espinal MD Work Phone: [facility] 05-05-2024 14:06-0400 Diastolic blood pressure 68 mm[Hg] Eloisa Espinal MD Work Phone: [facility] 05-05-2024 14:06-0400 Heart rate 82 /min Eloisa Espinal MD Work Phone: [facility] 05-05-2024 14:06-0400 Respiratory rate 20 /min Eloisa Espinal MD Work Phone: [facility] 05-05-2024 14:06-0400 Systolic blood pressure 112 mm[Hg] Eloisa Espinal MD Work Phone: [facility] 04-26-2024 05:00-0400 Body temperature 98.1 [degF] Dr. Eloisa Espinal MD Work Phone: [facility] 04-26-2024 05:00-0400 Diastolic blood pressure 77 mm[Hg] Dr. Eloisa Espinal MD Work Phone: [facility] 04-26-2024 05:00-0400 Heart rate 88 /min Dr. Eloisa Espinal MD Work Phone: [facility] 04-26-2024 05:00-0400 Respiratory rate 16 /min Dr. Eloisa Espinal MD Work Phone: 3(010)025-459425 [place] [address] 04-26-2024 05:00-0400 SaO2% (BldA) [Mass fraction] 98 % Dr. Eloisa Espinal MD Work Phone: 1(510)255-123625 [place] [address] 04-26-2024 05:00-0400 Systolic blood pressure 126 mm[Hg] Dr. Eloisa Espinal MD Work Phone: 1(438)383-376925 [place] [address] 04-25-2024 23:37-0400 Body mass index (BMI) [Ratio] 25.9 kg/m2 Dr. Eloisa Espinal MD Work Phone: 8(420)351-921925 [place] [address] 04-25-2024 23:37-0400 Body weight [address] Eloisa Espinal MD Work Phone: 3(352)116-323725 [place] [address] 04-25-2024 21:39-0400 Body height 177.[address] Eloisa Espinal MD Work Phone: 4(008)567-138125 [place] [address] 04-23-2024 08:23-0400 Body mass index (BMI) [Ratio] 25.5 kg/m2 Dr. Eloisa Espinal MD Work Phone: 1(430)099-188425 [place] [address] 04-23-2024 08:23-0400 Body weight 80.[address] Eloisa Espinal MD Work Phone: 9(046)520-563725 [place] [address] 04-23-2024 08:23-0400 Diastolic blood pressure 58 mm[Hg] Dr. Eloisa Espinal MD Work Phone: 3(290)652-617425 [place] [address] 04-23-2024 08:23-0400 Heart rate 87 /min Dr. Eloisa Espinal MD Work Phone: 5(094)526-083525 [place] [address] 04-23-2024 08:23-0400 Respiratory rate 20 /min Dr. Eloisa Espinal MD Work Phone: 6(692)294-437725 [place] [address] 04-23-2024 08:23-0400 Systolic blood pressure 98 mm[Hg] Dr. Eloisa Espinal MD Work Phone: 2(748)388-894125 [place] [address] 03-26-2024 11:43-0500 Body mass index (BMI) [Ratio] 26.43 kg/m2 Dk Bynum MD Work Phone: [facility] 03-26-2024 11:43-0500 Body temperature 97.9 [degF] Dk Bynum MD Work Phone: [facility] 03-26-2024 11:43-0500 Body weight 81.19 kg Dk Bynum MD Work Phone: [facility] 03-26-2024 11:43-0500 Diastolic blood pressure 62 mm[Hg] Dk Bynum MD Work Phone: [facility] 03-26-2024 11:43-0500 Heart rate 99 /min Dk Bynum MD Work Phone: [facility] 03-26-2024 11:43-0500 Respiratory rate 19 /min Dk Bynum MD Work Phone: [facility] 03-26-2024 11:43-0500 SaO2% (BldA) [Mass fraction] 98 % Dk Bynum MD Work Phone: [facility] 03-26-2024 11:43-0500 Systolic blood pressure 132 mm[Hg] Dk Bynum MD Work Phone: [facility] 03-19-2024 11:45-0500 Body mass index (BMI) [Ratio] 26.63 kg/m2 Elsa Adrianf FIELD MECHANIC/SITE LEAD.TRANSFER AND PUMPHOUSE OPERATOR CHIEF Work Phone: [facility] 03-19-2024 11:45-0500 Body weight 81.8 kg Elsa Adrianf FIELD MECHANIC/SITE LEAD.TRANSFER AND PUMPHOUSE OPERATOR CHIEF Work Phone: [facility] 03-19-2024 11:45-0500 Diastolic blood pressure 68 mm[Hg] Elsa Juárezhof FIELD MECHANIC/SITE LEAD.TRANSFER AND PUMPHOUSE OPERATOR CHIEF Work Phone: [facility] 03-19-2024 11:45-0500 Heart rate 84 /min Elsa Juárezhof FIELD MECHANIC/SITE LEAD.TRANSFER AND PUMPHOUSE OPERATOR CHIEF Work Phone: [facility] 03-19-2024 11:45-0500 Respiratory rate 16 /min Elsa Juárezhof FIELD MECHANIC/SITE LEAD.TRANSFER AND PUMPHOUSE OPERATOR CHIEF Work Phone: [facility] 03-19-2024 11:45-0500 Systolic blood pressure 108 mm[Hg] Elsa Mayo FIELD MECHANIC/SITE LEAD.TRANSFER AND PUMPHOUSE OPERATOR CHIEF Work Phone: [facility] 02-14-2024 15:00-0500 Diastolic blood pressure 73 mm[Hg] Herman Golias PT Work Phone: [facility] 02-14-2024 15:00-0500 Heart rate 84 /min Herman Golias PT Work Phone: [facility] 02-14-2024 15:00-0500 Systolic blood pressure 117 mm[Hg] Herman Golias PT Work Phone: [facility] 01-12-2024 11:03-0500 Body mass index (BMI) [Ratio] 26.66 kg/m2 Eloisa Espinal MD Work Phone: [facility] 01-12-2024 11:03-0500 Body weight 81.9 kg Eloisa Espinal MD Work Phone: [facility] 01-12-2024 11:03-0500 Diastolic blood pressure 78 mm[Hg] Eloisa Espinal MD Work Phone: [facility] 01-12-2024 11:03-0500 Heart rate 78 /min Eloisa Espinal MD Work Phone: [facility] 01-12-2024 11:03-0500 Respiratory rate 18 /min Eloisa Espinal MD Work Phone: [facility] 01-12-2024 11:03-0500 Systolic blood pressure 114 mm[Hg] Eloisa Espinal MD Work Phone: [facility] 11-27-2023 13:01-0400 Body mass index (BMI) [Ratio] 26.73 kg/m2 Mike Lee FIELD MECHANIC/SITE LEAD.TRANSFER AND PUMPHOUSE OPERATOR CHIEF Work Phone: [facility] 11-27-2023 13:01-0400 Body weight 82.1 kg Mike Lee FIELD MECHANIC/SITE LEAD.TRANSFER AND PUMPHOUSE OPERATOR CHIEF Work Phone: [facility] 11-27-2023 13:01-0400 Diastolic blood pressure 76 mm[Hg] Mike Jesus FIELD MECHANIC/SITE LEAD.TRANSFER AND PUMPHOUSE OPERATOR CHIEF Work Phone: [facility] 11-27-2023 13:01-0400 Heart rate 83 /min Mike Jesus FIELD MECHANIC/SITE LEAD.TRANSFER AND PUMPHOUSE OPERATOR CHIEF Work Phone: [facility] 11-27-2023 13:01-0400 Respiratory rate 18 /min Mike Jesus FIELD MECHANIC/SITE LEAD.TRANSFER AND PUMPHOUSE OPERATOR CHIEF Work Phone: [facility] 11-27-2023 13:01-0400 SaO2% (BldA) [Mass fraction] 98 % Mike Jesus FIELD MECHANIC/SITE LEAD.TRANSFER AND PUMPHOUSE OPERATOR CHIEF Work Phone: [facility] 11-27-2023 13:01-0400 Systolic blood pressure 132 mm[Hg] Mike Jesus FIELD MECHANIC/SITE LEAD.TRANSFER AND PUMPHOUSE OPERATOR CHIEF Work Phone: [facility] 11-15-2023 11:25-0400 Body mass index (BMI) [Ratio] 26.27 kg/m2 Eloisa Espinal MD Work Phone: [facility] 11-15-2023 11:25-0400 Body weight 80.7 kg Eloisa Espinal MD Work Phone: [facility] 11-15-2023 11:25-0400 Diastolic blood pressure 70 mm[Hg] Eloisa Espinal MD Work Phone: [facility] 11-15-2023 11:25-0400 Heart rate 64 /min Eloisa Espinal MD Work Phone: [facility] 11-15-2023 11:25-0400 Respiratory rate 18 /min Eloisa Espinal MD Work Phone: [facility] 11-15-2023 11:25-0400 Systolic blood pressure 124 mm[Hg] Eloisa Espinal MD Work Phone: [facility] 10-11-2023 10:49-0400 Body height 175.3 cm Hoang Wright MD Work Phone: [facility] 10-11-2023 10:49-0400 Body mass index (BMI) [Ratio] 26.14 kg/m2 Hoang Wright MD Work Phone: [facility] 10-11-2023 10:49-0400 Body weight 80.29 kg Hoang Wright MD Work Phone: [facility] 08-28-2023 12:52-0400 Body height 175.3 cm Juan King PA-C Work Phone: [facility] 08-28-2023 12:52-0400 Body mass index (BMI) [Ratio] 25.78 kg/m2 Juan King PA-C Work Phone: [facility] 08-28-2023 12:52-0400 Body temperature 97.3 [degF] Juan King PA-C Work Phone: [facility] 08-28-2023 12:52-0400 Body weight 79.2 kg Juan King PA-C Work Phone: [facility] 08-28-2023 12:52-0400 Diastolic blood pressure 62 mm[Hg] Juan King PA-C Work Phone: [facility] 08-28-2023 12:52-0400 Heart rate 94 /min Juan King PA-C Work Phone: [facility] 08-28-2023 12:52-0400 Respiratory rate 16 /min Juan King PA-C Work Phone: [facility] 08-28-2023 12:52-0400 SaO2% (BldA) [Mass fraction] 98 % Juan King PA-C Work Phone: [facility] 08-28-2023 12:52-0400 Systolic blood pressure 106 mm[Hg] Juan King PA-C Work Phone: [facility] 08-13-2023 12:04-0400 Body mass index (BMI) [Ratio] 27.63 kg/m2 Eloisa Espinal MD Work Phone: [facility] 08-13-2023 12:04-0400 Body weight 80.02 kg Eloisa Espinal MD Work Phone: [facility] 08-13-2023 12:04-0400 Diastolic blood pressure 66 mm[Hg] Eloisa Espinal MD Work Phone: [facility] 08-13-2023 12:04-0400 Heart rate 68 /min Eloisa Espinal MD Work Phone: [facility] 08-13-2023 12:04-0400 Respiratory rate 18 /min Eloisa Espinal MD Work Phone: [facility] 08-13-2023 12:04-0400 Systolic blood pressure 108 mm[Hg] Eloisa Espinal MD Work Phone: [facility] 07-12-2023 11:12-0400 Body mass index (BMI) [Ratio] 27.03 kg/m2 Eloisa Espinal MD Work Phone: [facility] 07-12-2023 11:12-0400 Body weight 78.29 kg Eloisa Espinal MD Work Phone: [facility] 07-12-2023 11:12-0400 Diastolic blood pressure 60 mm[Hg] Eloisa Espinal MD Work Phone: [facility] 07-12-2023 11:12-0400 Heart rate 96 /min Eloisa Espinal MD Work Phone: [facility] 07-12-2023 11:12-0400 Respiratory rate 18 /min Eloisa Espinal MD Work Phone: [facility] 07-12-2023 11:12-0400 Systolic blood pressure 90 mm[Hg] Eloisa Espinal MD Work Phone: [facility] 05-29-2023 14:38-0400 Body height 175.3 cm Juan King PA-C Work Phone: [facility] 05-29-2023 14:38-0400 Body temperature 97.81 [degF] Juan King PA-C Work Phone: [facility] 05-29-2023 14:38-0400 Body weight 80.29 kg Juan King PA-C Work Phone: [facility] 05-29-2023 14:38-0400 Diastolic blood pressure 60 mm[Hg] Juan King PA-C Work Phone: [facility] 05-29-2023 14:38-0400 Heart rate 102 /min Juan King PA-C Work Phone: [facility] 05-29-2023 14:38-0400 Respiratory rate 20 /min Juan King PA-C Work Phone: [facility] 05-29-2023 14:38-0400 SaO2% (BldA) [Mass fraction] 98 % Juan King PA-C Work Phone: [facility] 05-29-2023 14:38-0400 Systolic blood pressure 100 mm[Hg] Juan King PA-C Work Phone: [facility] 04-10-2023 10:48-0500 Body temperature 97 [degF] Regina Oswald MD Work Phone: [facility] 03-28-2023 10:33-0500 Body height 175.3 cm Pacc 1 Work Phone: [facility] 03-28-2023 10:33-0500 Body temperature 97.39 [degF] Pacc 1 Work Phone: [facility] 03-28-2023 10:33-0500 Body weight 79.83 kg Pacc 1 Work Phone: [facility] 03-28-2023 10:33-0500 Diastolic blood pressure 80 mm[Hg] Pacc 1 Work Phone: [facility] 03-28-2023 10:33-0500 Heart rate 82 /min Pacc 1 Work Phone: [facility] 03-28-2023 10:33-0500 Respiratory rate 16 /min Pacc 1 Work Phone: [facility] 03-28-2023 10:33-0500 SaO2% (BldA) [Mass fraction] 99 % Pacc 1 Work Phone: [facility] 03-28-2023 10:33-0500 Systolic blood pressure 128 mm[Hg] Pacc 1 Work Phone: [facility] 03-16-2023 14:34-0500 Body height 177.8 cm Regina Oswald MD Work Phone: [facility] 03-16-2023 14:34-0500 Body temperature 96.1 [degF] Regina Oswald MD Work Phone: [facility] 03-16-2023 14:34-0500 Body weight 80.29 kg Regina Oswald MD Work Phone: [facility] 03-16-2023 14:34-0500 Diastolic blood pressure 72 mm[Hg] Regina Oswald MD Work Phone: [facility] 03-16-2023 14:34-0500 Heart rate 108 /min Regina Oswald MD Work Phone: [facility] 03-16-2023 14:34-0500 SaO2% (BldA) [Mass fraction] 100 % Regina Oswald MD Work Phone: [facility] 03-16-2023 14:34-0500 Systolic blood pressure 118 mm[Hg] Regina Oswald MD Work Phone: [facility] 01-01-2023 08:46-0500 Body height 175.26 cm [facility] 01-01-2023 08:46-0500 Body mass index (BMI) [Ratio] 25.2 kg/m2 [facility] 01-01-2023 08:46-0500 Body temperature 97.6 [degF] [facility] 01-01-2023 08:46-0500 Body weight 77.56 kg [facility] 01-01-2023 08:46-0500 Diastolic blood pressure 79 mm[Hg] [facility] 01-01-2023 08:46-0500 Heart rate 95 /min [facility] 01-01-2023 08:46-0500 Respiratory rate 16 /min [facility] 01-01-2023 08:46-0500 SaO2% (BldA) [Mass fraction] 100 % [facility] 01-01-2023 08:46-0500 Systolic blood pressure 141 mm[Hg] [facility] 08-23-2022 14:03-0400 Body height 175.3 cm Julián Boothe MD Work Phone: [facility] 08-23-2022 14:03-0400 Body temperature 97.3 [degF] Julián Boothe MD Work Phone: [facility] 08-23-2022 14:03-0400 Body weight 83.01 kg Julián Boothe MD Work Phone: [facility] 08-23-2022 14:03-0400 Diastolic blood pressure 73 mm[Hg] Julián Boothe MD Work Phone: [facility] 08-23-2022 14:03-0400 Heart rate 78 /min Julián Boothe MD Work Phone: [facility] 08-23-2022 14:03-0400 Respiratory rate 14 /min Julián Boothe MD Work Phone: [facility] 08-23-2022 14:03-0400 SaO2% (BldA) [Mass fraction] 100 % Julián Boothe MD Work Phone: [facility] 08-23-2022 14:03-0400 Systolic blood pressure 138 mm[Hg] Julián Boothe MD Work Phone: [facility] 08-23-2022 11:20-0400 Diastolic blood pressure 68 mm[Hg] Julián Boothe MD Work Phone: [facility] 08-23-2022 11:20-0400 Heart rate 76 /min Jluián Boothe MD Work Phone: [facility] 08-23-2022 11:20-0400 Respiratory rate 18 /min Julián Boothe MD Work Phone: [facility] 08-23-2022 11:20-0400 SaO2% (BldA) [Mass fraction] 97 % Julián Boothe MD Work Phone: [facility] 08-23-2022 11:20-0400 Systolic blood pressure 115 mm[Hg] Julián Boothe MD Work Phone: [facility] 08-23-2022 10:42-0400 Body temperature 96.8 [degF] Julián Boothe MD Work Phone: [facility] 08-23-2022 09:50-0400 Body height 175.3 cm Julián Boothe MD Work Phone: [facility] 08-23-2022 09:50-0400 Body weight 83.01 kg Julián Boothe MD Work Phone: [facility] 06-23-2022 16:20-0400 Body temperature 97.7 [degF] Regina Oswald MD Work Phone: [facility] 06-23-2022 16:20-0400 Body weight 85.28 kg Regina Oswald MD Work Phone: [facility] 06-23-2022 16:20-0400 Diastolic blood pressure 60 mm[Hg] Regina Oswald MD Work Phone: [facility] 06-23-2022 16:20-0400 Heart rate 105 /min Regina Oswald MD Work Phone: [facility] 06-23-2022 16:20-0400 SaO2% (BldA) [Mass fraction] 96 % Regina Oswald MD Work Phone: [facility] 06-23-2022 16:20-0400 Systolic blood pressure 128 mm[Hg] Regina Oswald MD Work Phone: [facility] 06-09-2022 09:54-0400 Body weight 85.59 kg Eloisa Espinal MD Work Phone: [facility] 06-09-2022 09:54-0400 Diastolic blood pressure 78 mm[Hg] Eloisa Espinal MD Work Phone: [facility] 06-09-2022 09:54-0400 Heart rate 90 /min Eloisa Espinal MD Work Phone: [facility] 06-09-2022 09:54-0400 Respiratory rate 16 /min Eloisa Espinal MD Work Phone: [facility] 06-09-2022 09:54-0400 Systolic blood pressure 120 mm[Hg] Eloisa Espinal MD Work Phone: [facility] 04-18-2022 11:20-0500 Diastolic blood pressure 61 mm[Hg] Omkar Keating MD Work Phone: [facility] 04-18-2022 11:20-0500 Heart rate 74 /min Omkar Keating MD Work Phone: [facility] 04-18-2022 11:20-0500 SaO2% (BldA) [Mass fraction] 96 % Omkar Keating MD Work Phone: [facility] 04-18-2022 11:20-0500 Systolic blood pressure 92 mm[Hg] Omkar Keating MD Work Phone: [facility] 04-18-2022 10:53-0500 Body temperature 97.5 [degF] Omkar Keating MD Work Phone: [facility] 04-18-2022 10:53-0500 Respiratory rate 16 /min Omkar Keating MD Work Phone: [facility] 04-18-2022 10:04-0500 Body height 175.3 cm Omkar Keating MD Work Phone: [facility] 04-18-2022 10:04-0500 Body weight 86.18 kg Omkar Keating MD Work Phone: [facility] 04-17-2022 10:17-0500 Body temperature 98.29 [degF] Tera Abrosas PA Work Phone: [facility] 04-17-2022 10:17-0500 Body weight 86.18 kg Krislyn Aberegg PA Work Phone: [facility] 04-17-2022 10:17-0500 Diastolic blood pressure 82 mm[Hg] Krislyn Aberegg PA Work Phone: [facility] 04-17-2022 10:17-0500 Heart rate 94 /min Krislyn Aberegg PA Work Phone: [facility] 04-17-2022 10:17-0500 Respiratory rate 20 /min Krislyn Aberegg PA Work Phone: [facility] 04-17-2022 10:17-0500 SaO2% (BldA) [Mass fraction] 98 % Krislyn Aberegg PA Work Phone: [facility] 04-17-2022 10:17-0500 Systolic blood pressure 132 mm[Hg] Krislyn Aberegg PA Work Phone: [facility] 03-16-2022 09:54-0500 Body height 175.3 cm Regina Oswald MD Work Phone: [facility] 03-16-2022 09:54-0500 Body temperature 97.59 [degF] Regina Oswald MD Work Phone: [facility] 03-16-2022 09:54-0500 Body weight 87.36 kg Regina Oswald MD Work Phone: [facility] 03-16-2022 09:54-0500 Diastolic blood pressure 62 mm[Hg] Regina Oswald MD Work Phone: [facility] 03-16-2022 09:54-0500 Heart rate 104 /min Regina Oswald MD Work Phone: [facility] 03-16-2022 09:54-0500 SaO2% (BldA) [Mass fraction] 100 % Regina Oswald MD Work Phone: [facility] 03-16-2022 09:54-0500 Systolic blood pressure 120 mm[Hg] Regina Oswald MD Work Phone: [facility] 12-29-2021 11:21-0500 Body temperature 98.29 [degF] Eloisa Espinal MD Work Phone: [facility] 12-29-2021 11:21-0500 Body weight 84.91 kg Eloisa Espinal MD Work Phone: [facility] 12-29-2021 11:21-0500 Diastolic blood pressure 74 mm[Hg] Eloisa Espinal MD Work Phone: [facility] 12-29-2021 11:21-0500 Heart rate 84 /min Eloisa Espinal MD Work Phone: [facility] 12-29-2021 11:21-0500 Respiratory rate 18 /min Eloisa Espinal MD Work Phone: [facility] 12-29-2021 11:21-0500 Systolic blood pressure 126 mm[Hg] Eloisa Espinal MD Work Phone: [facility] 12-07-2021 13:41-0400 Body height 175.3 cm Alfredo Zayas MD Work Phone: [facility] 12-07-2021 13:41-0400 Body weight 85.73 kg Alfredo Zayas MD Work Phone: [facility] 12-07-2021 13:41-0400 Diastolic blood pressure 72 mm[Hg] Alfredo Zayas MD Work Phone: [facility] 12-07-2021 13:41-0400 Heart rate 96 /min Alfredo Zayas MD Work Phone: [facility] 12-07-2021 13:41-0400 Respiratory rate 18 /min Alfredo Zayas MD Work Phone: [facility] 12-07-2021 13:41-0400 SaO2% (BldA) [Mass fraction] 98 % Alfredo Zayas MD Work Phone: [facility] 12-07-2021 13:41-0400 Systolic blood pressure 124 mm[Hg] Alfredo Brito Work Phone: [facility] 11-02-2021 13:58-0400 Body weight 84.91 kg Eloisa Espinal MD Work Phone: [facility] 11-02-2021 13:58-0400 Diastolic blood pressure 72 mm[Hg] Eloisa Espinal MD Work Phone: [facility] 11-02-2021 13:58-0400 Heart rate 93 /min Eloisa Espinal MD Work Phone: [facility] 11-02-2021 13:58-0400 Respiratory rate 16 /min Eloisa Espinal MD Work Phone: [facility] 11-02-2021 13:58-0400 SaO2% (BldA) [Mass fraction] 97 % Eloisa Espinal MD Work Phone: [facility] 11-02-2021 13:58-0400 Systolic blood pressure 118 mm[Hg] Eloisa Espinal MD Work Phone: [facility] 09-19-2021 12:46-0400 Heart rate 81 /min Dr. Eloisa Espinal Work Phone: [facility] Work Phone: 09-19-2021 12:45-0400 Body temperature 98.4 [degF] Dr. Eloisa Espinal Work Phone: [facility] Work Phone: 09-19-2021 12:45-0400 Diastolic blood pressure 81 mm[Hg] Dr. Eloisa Espinal Work Phone: [facility] Work Phone: 09-19-2021 12:45-0400 Respiratory rate 16 /min Dr. Eloisa Espinal Work Phone: [facility] Work Phone: 09-19-2021 12:45-0400 SaO2% (BldA) [Mass fraction] 99 % Dr. Eloisa Espinal Work Phone: [facility] Work Phone: 09-19-2021 12:45-0400 Systolic blood pressure 117 mm[Hg] Dr. Eloisa Espinal Work Phone: [facility] Work Phone: 09-19-2021 04:31-0400 Body weight 84.[address] Eloisa Espinal Work Phone: [facility] Work Phone: 09-17-2021 15:47-0400 Body height 175.[address] Eloisa Espinal Work Phone: [facility] Work Phone: 09-17-2021 15:47-0400 Body mass index (BMI) [Ratio] 27.9 kg/m2 Dr. Eloisa Espinal Work Phone: [facility] Work Phone: 09-17-2021 15:04-0400 Body temperature 98.2 [degF] [facility] Work Phone: 09-17-2021 15:04-0400 Diastolic blood pressure 77 mm[Hg] [facility] Work Phone: 09-17-2021 15:04-0400 Heart rate 80 /min [facility] Work Phone: 09-17-2021 15:04-0400 Respiratory rate 18 /min [facility] Work Phone: 09-17-2021 15:04-0400 SaO2% (BldA) [Mass fraction] 98 % [facility] Work Phone: 09-17-2021 15:04-0400 Systolic blood pressure 128 mm[Hg] [facility] Work Phone: 09-17-2021 13:53-0400 Body height 170.18 cm [facility] Work Phone: 09-17-2021 13:53-0400 Body mass index (BMI) [Ratio] 30.4 kg/m2 [facility] Work Phone: 09-17-2021 13:53-0400 Body weight 88 kg [facility] Work Phone: 07-06-2021 13:32-0400 Body weight 86.64 kg Eloisa Espinal MD Work Phone: [facility] 07-06-2021 13:32-0400 Diastolic blood pressure 72 mm[Hg] Eloisa Espinal MD Work Phone: [facility] 07-06-2021 13:32-0400 Heart rate 74 /min Eloisa Espinal MD Work Phone: [facility] 07-06-2021 13:32-0400 Respiratory rate 16 /min Eloisa Espinal MD Work Phone: [facility] 07-06-2021 13:32-0400 Systolic blood pressure 120 mm[Hg] Eloisa Espinal MD Work Phone: [facility] 06-20-2021 13:07-0400 Body height 162.6 cm Julián Boothe MD Work Phone: [facility] 06-20-2021 13:07-0400 Body temperature 97.2 [degF] Julián Boothe MD Work Phone: [facility] 06-20-2021 13:07-0400 Body weight 86.64 kg Julián Boothe MD Work Phone: [facility] 06-20-2021 13:07-0400 Diastolic blood pressure 81 mm[Hg] Julián Boothe MD Work Phone: [facility] 06-20-2021 13:07-0400 Heart rate 88 /min Julián Boothe MD Work Phone: [facility] 06-20-2021 13:07-0400 Respiratory rate 16 /min Julián Boothe MD Work Phone: [facility] 06-20-2021 13:07-0400 SaO2% (BldA) [Mass fraction] 100 % Julián Boothe MD Work Phone: [facility] 06-20-2021 13:07-0400 Systolic blood pressure 144 mm[Hg] Julián Boothe MD Work Phone: [facility] 06-04-2021 11:04-0400 Body temperature 98.1 [degF] Lyudmila Athy PA-C Work Phone: [facility] 06-04-2021 11:04-0400 Body weight 87.36 kg Lyudmila Athy PA-C Work Phone: [facility] 06-04-2021 11:04-0400 Diastolic blood pressure 78 mm[Hg] Lyudmila Athy PA-C Work Phone: [facility] 06-04-2021 11:04-0400 Heart rate 82 /min Lyudmila Athy PA-C Work Phone: [facility] 06-04-2021 11:04-0400 Respiratory rate 18 /min Lyudmila Athy PA-C Work Phone: [facility] 06-04-2021 11:04-0400 SaO2% (BldA) [Mass fraction] 98 % Lyudmila Athy PA-C Work Phone: [facility] 06-04-2021 11:04-0400 Systolic blood pressure 122 mm[Hg] Lyudmila Athy PA-C Work Phone: [facility] 12-22-2018 16:34-0500 Body mass index (BMI) [Ratio] [facility] Comment on above: Performed By: #### GFR #### [place] [address] Encounters Encounter Date Encounter Type Care Provider Facility Start: 12-22-2024 ambulatory Eloisa Espinal Facilit y:[facility] Start: 12-13-2024 ambulatory Eloisa Espinal Facilit y:[facility] Start: 12-13-2024 [facility] Start: 11-30-2024 End: 12-13-2024 [facility] Start: 11-30-2024 End: 11-30-2024 Emergency department patient visit Dr. Susannah Rivera DO -Emergency Department Work Phone: Start: 11-25-2024 End: 11-25-2024 ambulatory DK BYNUM Facility:[facility] Start: 11-20-2024 End: 11-20-2024 ambulatory ELOISA ESPINAL Facility:[facility] Start: 11-20-2024 Patient encounter procedure ELOISA ESPINAL [facility] Start: 11-11-2024 Encounter for preprocedural cardiovascular examination Stacey Daly [facility] Start: 11-11-2024 End: 11-11-[address] Stacey Daly MD [facility] Work Phone: Start: 11-11-2024 End: 11-11-[address] Stacey Daly MD [facility] Start: 11-11-2024 End: 11-11-[address] Eloisa Espinal MD Work Phone: [facility] Start: 11-07-2024 End: 11-07-2024 ambulatory ELOISA ESPINAL Facility:[facility] Start: 11-07-2024 End: 11-07-2024 [facility] Start: 11-07-2024 Encounter for other preprocedural examination ELOISA ESPINAL [facility] Start: 10-02-2024 End: 10-02-2024 Patient encounter procedure Dk Bynum MD Work Phone: General Surgery Comment on above: Incisional hernia, w ithout obstruction or gangrene (Primary Dx) Start: 10-02-2024 End: 10-02-2024 ambulatory ELOISA ESPINAL Facility:[facility] Start: 09-24-2024 End: 09-25-2024 ambulatory Eloisa Espinal MD Work Phone: [facility] Comment on above: test results Start: 09-22-2024 End: 09-22-2024 Admission to same day surgery center Mary Kennedy MD Work Phone: Pulmonary Medicine Comment on above: Surgery Start: 09-22-2024 End: 09-22-2024 ambulatory Mary Kennedy MD Work Phone: Pulmonary Medicine Start: 09-15-2024 End: 09-15-2024 Patient encounter procedure Mary Kennedy MD Work Phone: Pulmonary Medicine Comment on above: Mild persistent asth ma without complication (HCC) (Primary Dx); Former smoker; Elevated diaphragm Start: 09-15-2024 End: 09-15-2024 ambulatory ELOISA ESPINAL Facility:[facility] Start: 09-08-2024 End: 09-12-2024 ambulatory Eloisa Espinal MD Work Phone: [facility] Comment on above: Test result Start: 09-04-2024 End: 09-04-[address] Eloisa Espinal MD Work Phone: -Pulmonary Services/Neurology Start: 09-04-2024 End: 09-04-2024 Patient encounter procedure Emelina Taylor [employer] -Pulmonary Services/Neurology Work Phone: Start: 09-04-2024 End: 09-04-2024 ambulatory Emelina Taylor NP Facility:[facility] Start: 08-19-2024 End: 08-19-2024 Patient encounter procedure Emelina Taylor [employer] -[facility] Work Phone: Start: 08-19-2024 End: 08-19-2024 Patient encounter status Emelina Taylor [employer] [facility] Start: 08-19-2024 End: 08-19-[address] Eloisa Espinal MD Work Phone: -[facility] Start: 08-08-2024 End: 08-12-2024 ambulatory Eloisa Espinal MD Work Phone: [facility] Comment on above: What is the next yordan p Start: 08-06-2024 End: 08-06-2024 Admission to same day surgery center Dr. Stacey Daly MD -Employee Operations Examiner/Special Procedures Work Phone: Start: 08-06-2024 End: 08-06-[address] Eloisa Espinal MD Work Phone: [facility] Work Phone: Start: 07-31-2024 ambulatory Stacey Daly Facility:[facility] Start: 07-28-2024 ambulatory Emelina Taylor NP Facili ty:[facility] Start: 07-28-2024 Non-patient / Non-visit Emelina zarate [employer] -[facility] Work Phone: Start: 07-17-2024 ambulatory Amira Longo Facil ity:[facility] Start: 07-11-2024 End: 07-11-2024 Get Medical Advice Eloisa Espinal MD Work Phone: [facility] Comment on above: Refill Start: 07-03-2024 End: 07-04-2024 [facility] Start: 07-03-2024 End: 07-04-2024 Evaluation and management of inpatient Dr. Stacey Daly MD -Progressive Care Unit Work Phone: Start: 05-22-2024 ambulatory [facility] Facility:[facility] Start: 05-22-2024 Non-patient / Non-visit Dr. Stacey romo MD -[facility] Start: 05-22-2024 End: 05-22-[address] Eloisa Espinal MD Work Phone: [facility] Work Phone: Start: 05-22-2024 End: 05-22-[address] Stacey Daly MD -Cardiovascular Services Work Phone: Start: 05-22-2024 End: 05-22-2024 ambulatory Stacey Addy Facility:[facility] Start: 05-20-2024 End: 05-20-2024 [facility] Start: 05-20-2024 End: 05-20-2024 Patient encounter procedure Ivy Rizvi MA [facility] Comment on above: Population Health Na vigation Outreach [facility] Start: 05-16-2024 End: 05-16-2024 ambulatory ELOISA ESPINAL Facility:[facility] Start: 05-16-2024 End: 05-16-2024 Office outpatient visit 25 minutes Eloisa Espinal MD Work Phone: [facility] Comment on above: Acquired hypothyroid ism (Primary Dx); Essential hypertension; Mixed hyperlipidemia; 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); Hx of CABG; Paroxysmal atrial fibrillation (HCC); Mild intermittent asthma without complication (HCC); Anemia, unspecified type; COPD, mild (HCC); 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; Gastroesophageal reflux disease with esophagitis, unspecified whether hemorrhage; Chronic abdominal pain; Umbilical hernia without obstruction or gangrene; Rectus diastasis; Nausea Start: 05-15-2024 End: 05-15-2024 ambulatory ELOISA ESPINAL Facility:[facility] Start: 05-12-2024 End: 05-12-2024 ambulatory Eloisa Espinal MD Work Phone: [facility] [place] Comment on above: visit Sunday Start: 05-05-2024 End: 05-05-2024 ambulatory ELOISA ESPINAL Facility:[facility] Start: 05-05-2024 End: 05-05-2024 Office outpatient visit 15 minutes Eloisa Espinal MD Work Phone: [facility] Comment on above: Hospital discharge f ollow-up (Primary Dx); Fall, sequela; Visit for suture removal; Injury of left shoulder, subsequent encounter Start: 04-29-2024 End: 05-01-2024 Telephone encounter Dk Bynum MD Work Phone: General Surgery Start: 04-28-2024 End: 05-30-2024 Telephone encounter Britni Wilson APRN.CNP Work Phone: Pre Anesthesia Start: 04-25-2024 End: 04-26-2024 Emergency department patient visit Dr. Eloisa Espinal MD Work Phone: -Emergency Department Work Phone: Start: 04-25-2024 ambulatory ELOISA Stokes ity:[facility] Start: 04-23-2024 End: 04-23-[address] Stacey Daly MD -[facility] Work Phone: Start: 04-23-2024 End: 04-23-[address] Stacey Daly MD [facility] Start: 04-23-2024 End: 04-23-2024 ambulatory Eloisa Espinal Facility:[facility] Start: 04-08-2024 End: 04-08-2024 Telephone encounter Eloisa Espinal MD Work Phone: [facility] Comment on above: Medication Problem ( Alternative requested) Start: 04-02-2024 End: 04-14-2024 Telephone encounter Britni Wilson APRN.TRANSFER AND PUMPHOUSE OPERATOR CHIEF Work Phone: Pre Anesthesia Start: 04-02-2024 ambulatory ELOISA ESPINAL Facil ity:[facility] Start: 04-01-2024 End: 04-01-2024 ambulatory Herman Golias PT Work Phone: [facility] Comment on above: Right sided sciatica (Primary Dx) Start: 03-27-2024 End: 03-27-2024 Refill Eloisa Espinal MD Work Phone: [facility] Comment on above: Refill Request Start: 03-26-2024 End: 05-07-2024 Telephone encounter Dk Bynum MD Work Phone: General Surgery Comment on above: 04-08-2024 Hernia Me alethea Start: 03-26-2024 End: 03-26-2024 ambulatory DK BYNUM Facility:[facility] Start: 03-26-2024 End: 03-26-2024 Patient encounter procedure Dk Bynum MD Work Phone: General Surgery Comment on above: Recurrent incisional hernia (Primary Dx); Umbilical hernia without obstruction or gangrene Start: 03-24-2024 End: 03-24-2024 ambulatory Herman Golias PT Work Phone: [facility] Comment on above: Right sided sciatica (Primary Dx) Start: 03-21-2024 End: 03-21-2024 ambulatory ELOISA ESPINAL Facility:[facility] Start: 03-20-2024 End: 03-21-2024 ambulatory Eloisa [facility]inal MD [facility] Phone: [facility] Comment on above: Levothyrox 175 Start: 03-19-2024 End: 03-19-2024 Office outpatient visit 25 minutes Elsa Mayo APRN.CNP Work Phone: [facility] Comment on above: SOB (shortness of br eath) (Primary Dx); Mild intermittent asthma without complication; Paroxysmal atrial fibrillation (HCC); 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 Comment on above: Right sided sciatica (Primary Dx) Start: 03-07-2024 End: 03-10-2024 Refill Eloisa Espinal MD Work Phone: [facility] Comment on above: Refill Request Start: 03-04-2024 End: 03-05-2024 ambulatory Martha Kashuba SCORING MACHINE OPERATOR Work Phone: [facility] Comment on above: Right sided sciatica (Primary Dx) Start: 02-26-2024 End: 02-26-2024 ambulatory Herman Golias PT Work Phone: [facility] Comment on above: Right sided sciatica (Primary Dx) Start: 02-20-2024 End: 02-20-2024 ambulatory Martha Kashuba SCORING MACHINE OPERATOR Work Phone: [facility] Comment on above: Right sided sciatica (Primary Dx) Start: 02-18-2024 End: 02-18-2024 ambulatory Herman Golias PT Work Phone: [facility] Comment on above: Right sided sciatica (Primary Dx) Start: 02-14-2024 End: 02-14-2024 ambulatory Herman Kaur PT Work Phone: [place] [facility] Comment on above: Right sided sciatica (Primary Dx); Sciatica, right side Start: 02-03-2024 End: 02-04-2024 Refill Juan King PA-C Work Phone: Urology Comment on above: Refill Request Start: 01-14-2024 End: 01-14-2024 ambulatory No Pcp FIELD MECHANIC/SITE LEAD [facility] Start: 01-14-2024 End: 01-14-2024 Patient encounter procedure No Pcp FIELD MECHANIC/SITE LEAD [facility] Start: 01-12-2024 End: 01-12-2024 ambulatory ELOISA ESPINAL Facility:[facility] Start: 01-12-2024 End: 01-12-2024 Patient encounter procedure Eloisa Espinal MD Work Phone: [facility] [place] Comment on above: Sciatica, right side (Primary Dx) Start: 01-07-2024 End: 01-11-2024 ambulatory Eloisa Espinal MD Work Phone: [facility] [place] Comment on above: Pain on right side pain Start: 12-20-2023 End: 12-21-2023 ambulatory Eloisa Espinal MD Work Phone: [facility] [place] Comment on above: Back pain Start: 12-05-2023 End: 12-13-2023 ambulatory Eloisa Espinal MD Work Phone: [facility] [place] Comment on above: back pain Start: 11-27-2023 End: 11-27-2023 Office outpatient visit 15 minutes Mike Lee APRN.CNP Work Phone: [facility] [place] Comment on above: Abdominal muscle str ain, sequela (Primary Dx); Fall, sequela Start: 11-25-2023 End: 11-26-2023 ambulatory Eloisa Espinal MD Work Phone: [facility] [place] Comment on above: lower abdominal pain Start: 11-15-2023 End: 11-15-2023 Office outpatient visit 25 minutes Eloisa Espinal MD Work Phone: [facility] [place] Comment on above: Acquired hypothyroid ism (Primary Dx); Need for influenza vaccination; Need for vaccination; Mixed hyperlipidemia; 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; Mild intermittent asthma without complication; 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); Gastroesophageal reflux disease with esophagitis, unspecified whether hemorrhage; Essential hypertension; Acute blood loss anemia; Paroxysmal atrial fibrillation (HCC); Chronic abdominal pain; Rectus diastasis Start: 11-10-2023 End: 11-12-2023 ambulatory Eloisa Espinal MD Work Phone: [facility] [place] Comment on above: Vaccinations Start: 11-08-2023 End: 11-08-2023 Refill Eloisa Espinal MD Work Phone: [facility] [place] Comment on above: Refill Request Start: 10-25-2023 End: 10-25-2023 ambulatory Nurse Intm/Famp Triage [facility] Work Phone: Nurse Phone Triage Comment on above: Abdominal Pain Start: 10-23-2023 End: 10-25-2023 ambulatory Eloisa Espinal MD Work Phone: Family [facility] [place] Comment on above: Abdomen swelling and constipation. 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) Start: 10-08-2023 End: 10-08-2023 Telephone encounter Hoang Wright MD Work Phone: Urology Comment on above: Appointment Start: 10-02-2023 End: 10-02-2023 Subsequent hospital visit by physician [facility] Work Phone: Radiology Comment on above: Retroperitoneal freddy kishan [K68.3] Start: 08-28-2023 End: 08-28-2023 Patient encounter procedure Juan King PA-C Work Phone: Urology Comment on above: BPH associated with nocturia (Primary Dx); Frequent urination Start: 08-23-2023 Refill Eloisa sood MD Work Phone: [facility] Comment on above: Refill Request Start: 08-13-2023 End: 08-13-2023 Patient encounter procedure Eloisa Espinal MD Work Phone: [facility] Comment on above: Syncope, unspecified syncope type (Primary Dx); Essential hypertension; Paroxysmal atrial fibrillation (HCC); 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); Hx of CABG; Mixed hyperlipidemia; Low sodium levels; Hypophosphataemia; Anemia, unspecified type; Retroperitoneal hemorrhage; Mild intermittent asthma without complication; COPD, mild (HCC); Acquired hypothyroidism; Bruising Start: 08-08-2023 ambulatory Eloisa sood MD Work Phone: [facility] Comment on above: Blood test lab Start: 08-01-2023 ambulatory Tremayne simms RN Work Phone: [facility] Start: 08-01-2023 Telephone follow-up Tremayne Arnett RN Work Phone: [facility] Comment on above: Transition Of Care ( TCM discharge follow-up) Weekly phone contact (Recurring) for Transitional Care Management Start: 07-17-2023 ambulatory Tremayne simms RN Work Phone: [facility] Start: 07-17-2023 Telephone follow-up Tremayne Arnett RN Work Phone: [facility] Comment on above: Transition Of Care ( TCM discharge follow-up) Weekly phone contact (Recurring) for Transitional Care Management Start: 07-16-2023 ambulatory Eloisa sood MD Work Phone: [facility] Comment on above: Prescription Start: 07-12-2023 End: 07-12-2023 Patient encounter procedure Eloisa Espinal MD Work Phone: [facility] Comment on above: Hospital discharge f ollow-up (Primary Dx); Retroperitoneal hemorrhage; Syncope, unspecified syncope type; Essential hypertension; Paroxysmal atrial fibrillation (HCC); 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); Hx of CABG; Acquired hypothyroidism; Mixed hyperlipidemia; Anemia, unspecified type; Mild intermittent asthma without complication; DDD (degenerative disc disease), lumbar; Low sodium levels; Escobedo's esophagus with low grade dysplasia; Frequent urination; Hypophosphataemia; COPD, mild (HCC); Atherosclerotic heart disease of tonawanda coronary artery with other forms of angina pectoris (HCC) Start: 07-10-2023 Patient Outreach Tremayne Saul RN Work Phone: [facility] Comment on above: Transition Of Care ( TCM hospital discharge) Start: 07-06-2023 ambulatory Eloisa sood MD Work Phone: [facility] [place] Start: 07-06-2023 Patient encounter procedure Eloisa Espinal MD Work Phone: [facility] Comment on above: Lab appointment Start: 07-05-2023 Refill Mike Jesus FIELD MECHANIC/SITE LEAD.TRANSFER AND PUMPHOUSE OPERATOR CHIEF Work Phone: [facility] Comment on above: Refill Request Start: 07-02-2023 Telephone encounter Hoang Wright MD Work Phone: Urology Comment on above: Orders Start: 07-01-2023 End: 07-05-2023 Evaluation and management of inpatient ELOISA ESPINAL Facility:[facility] Start: 05-29-2023 End: 05-29-2023 Patient encounter procedure Juan King PA-C Work Phone: Urology Comment on above: BPH associated with nocturia (Primary Dx); Screening for genitourinary condition Start: 05-19-2023 Refill Mike Jesus FIELD MECHANIC/SITE LEAD.TRANSFER AND PUMPHOUSE OPERATOR CHIEF Work Phone: [facility] [place] Comment on above: Refill Request Start: 05-07-2023 ambulatory Eloisa sood MD Work Phone: [facility] [place] Comment on above: Test results Start: 04-30-2023 Telephone encounter Elsa hansen FIELD MECHANIC/SITE LEAD.TRANSFER AND PUMPHOUSE OPERATOR CHIEF Work Phone: [facility] Comment on above: Results (Labs ) Start: 04-25-2023 ambulatory Eloisa sood MD Work Phone: [facility] [place] Comment on above: What is next Start: 04-23-2023 ambulatory Eloisa sood MD Work Phone: [facility] [place] Comment on above: Tired Lab Start: 04-10-2023 End: 04-10-2023 Patient encounter procedure Regina Oswald MD Work Phone: General Surgery Comment on above: Status post repair o f ventral hernia Start: 03-28-2023 End: 03-28-2023 Admission to establishment [facility] [place] [facility] Work Phone: [facility] [place] Start: 03-28-2023 End: 03-28-2023 ambulatory [facility] [place] [facility] Work Phone: Pre Anesthesia Comment on above: Pre-operative examin ation (Primary Dx); Acquired hypothyroidism; Atherosclerotic heart disease of tonawanda coronary artery with other forms of angina pectoris (HCC); Escobedo's esophagus determined by biopsy; COPD, mild (HCC); Esophageal stricture; Essential hypertension; Gastroesophageal reflux disease with esophagitis, unspecified whether hemorrhage; Mixed hyperlipidemia; Paraesophageal hernia; Paroxysmal atrial fibrillation (HCC); Spondylosis of lumbar region without myelopathy or radiculopathy Start: 03-28-2023 End: 03-28-2023 Preprocedural examination done [facility] 1 Work Phone: [facility] Work Phone: Start: 03-16-2023 End: 03-16-2023 Patient encounter procedure Regina Oswald MD Work Phone: General Surgery Comment on above: Ventral incisional h ernia without obstruction or gangrene (Primary Dx) Start: 03-16-2023 End: 12-18-2023 Telephone encounter Regina Oswald MD Work Phone: General Surgery Comment on above: 04/03/2023 VENTRAL HE RNIA REPAIR HOOD Start: 01-26-2023 ambulatory Eloisa sood MD Work Phone: [facility] [place] Comment on above: CT scan Start: 01-22-2023 ambulatory Valentina Sánchez FIELD MECHANIC/SITE LEAD.TRANSFER AND PUMPHOUSE OPERATOR CHIEF Work Phone: Thoracic Clinic Comment on above: Hi Valentina Start: 01-01-2023 End: 01-01-2023 Emergency department patient visit [facility] Work Phone: Start: 11-10-2022 End: 11-10-2022 Subsequent hospital visit by physician [facility] ([facility]) Radiology Comment on above: Hiatal hernia [K44.9 ] Start: 10-10-2022 ambulatory Valentina Sánchez FIELD MECHANIC/SITE LEAD.TRANSFER AND PUMPHOUSE OPERATOR CHIEF Work Phone: [facility] Comment on above: Visit Start: 10-02-2022 ambulatory Valentina Sánchez FIELD MECHANIC/SITE LEAD.TRANSFER AND PUMPHOUSE OPERATOR CHIEF Work Phone: [facility] Comment on above: Eating and activity Start: 09-22-2022 Refill Elsa Mayo FIELD MECHANIC/SITE LEAD.TRANSFER AND PUMPHOUSE OPERATOR CHIEF Work Phone: [facility] [place] Comment on above: Med Change Request Start: 08-31-2022 Telephone encounter Julián Boothe MD Work Phone: Cardiology Comment on above: Post Dc Program Call - Fyi Start: 08-23-2022 End: 08-23-2022 Admission to same day surgery center Anesthesia Clearance Work Phone: [facility] Work Phone: Start: 08-23-2022 End: 08-23-2022 Patient encounter procedure Anesthesia Clearance Work Phone: Cardiothoracic Comment on above: Encounter for preope rative anesthesiology assessment for thoracic surgery (Primary Dx) Hiatal hernia (Prima ry Dx); Umbilical hernia without obstruction and without gangrene Start: 08-23-2022 End: 08-23-2022 Subsequent hospital visit by physician Julián Boothe MD Work Phone: Gastroenterology Comment on above: Hiatal hernia [K44.9 ] Start: 08-16-2022 Telephone encounter Arminda Norman RNpublic health representative Comment on above: Appointment Confirma tion Start: 07-24-2022 Telephone encounter Sun Lamb Gastroenter[facility] Comment on above: Patient Question (Pr e-op testing ) Start: 06-23-2022 End: 06-23-2022 Patient encounter procedure Regina Oswald MD Work Phone: General Surgery Comment on above: Periumbilical hernia Start: 06-22-2022 ambulatory Eloisa sood MD Work Phone: [facility] [place] Comment on above: New Prescritions Start: 06-19-2022 End: 06-19-2022 Subsequent hospital visit by physician Ct Prep [facility] Comment on above: RLQ abdominal pain [ R10.31] Start: 06-09-2022 End: 06-09-2022 Patient encounter procedure Eloisa Espinal MD Work Phone: [facility] [place] Comment on above: RLQ abdominal pain ( Primary Dx); Right upper quadrant abdominal mass; Change in bowel function; Other disorders of arteries, arterioles and capillaries in diseases classified elsewhere (HCC); COPD with exacerbation (HCC); Paroxysmal atrial fibrillation (HCC); Atherosclerotic heart disease of tonawanda coronary artery with other forms of angina pectoris (HCC) Start: 06-08-2022 ambulatory Ivy Lerma [facility] Comment on above: Population Health Na vigation Outreach (HCC GAP) Start: 05-23-2022 Refill Eloisa sood MD Work Phone: [facility] [place] Comment on above: Refill Request Start: 04-25-2022 Telephone encounter Eloisa teresa MD Work Phone: NOC Comment on above: Appointment Start: 04-20-2022 Telephone encounter Vinny manuel MD, PhD Work Phone: [facility] Comment on above: Appointment Start: 04-19-2022 ambulatory Omkar Keating MD Work Phone: Gastroenterology Comment on above: surgeorn Start: 04-18-2022 End: 04-18-2022 Orders Only Omkar Keating MD Work Phone: Gastroenterology Comment on above: Hiatal hernia (Prima ry Dx) Escobedo's esophagus with low grade dysplasia [K22.710] Start: 04-17-2022 End: 04-17-2022 Patient encounter procedure Tera DELGADO Work Phone: [facility] Comment on above: Fatigue, unspecified type (Primary Dx); Exposure to COVID-19 virus Start: 03-16-2022 ambulatory Omkar Keating MD Work Phone: Gastroenterology Comment on above: schedule Start: 03-16-2022 End: 03-16-2022 Patient encounter procedure Regina Oswald MD Work Phone: General Surgery Comment on above: Escobedo's esophagus with low grade dysplasia; Thoracic stomach Start: 03-06-2022 ambulatory Eloisa sood MD Work Phone: [facility] [place] Comment on above: endoscopy Start: 02-08-2022 ambulatory Eloisa sood MD Work Phone: [facility] [place] Comment on above: Nasal [place] Start: 02-01-2022 End: 02-01-2022 ambulatory Bethanie Cline PT Work Phone: [facility] Comment on above: Cervical radiculopat hy (Primary Dx); Left arm pain Start: 01-24-2022 End: 01-24-2022 ambulatory Martha Kasrichaba SCORING MACHINE OPERATOR Work Phone: [facility] Comment on above: Cervical radiculopat hy (Primary Dx); Left arm pain Start: 01-19-2022 End: 01-19-2022 ambulatory Martha Kashuba SCORING MACHINE OPERATOR Work Phone: [facility] Comment on above: Cervical radiculopat hy (Primary Dx); Left arm pain Start: 01-17-2022 End: 01-17-2022 ambulatory Bethanie Cline PT Work Phone: [facility] Comment on above: Cervical radiculopat hy (Primary Dx); Left arm pain Start: 01-11-2022 End: 01-11-2022 ambulatory Bethanie Cline PT Work Phone: [facility] Comment on above: Cervical radiculopat hy (Primary Dx); Left arm pain Start: 01-09-2022 End: 01-09-2022 ambulatory Martha Maher SCORING MACHINE OPERATOR Work Phone: [facility] Comment on above: Cervical radiculopat hy (Primary Dx); Left arm pain Start: 01-06-2022 End: 01-06-2022 ambulatory Bethanie Cline PT Work Phone: [facility] Comment on above: Cervical radiculopat hy (Primary Dx); Left arm pain Start: 01-03-2022 End: 01-03-2022 ambulatory Martha Maher SCORING MACHINE OPERATOR Work Phone: [facility] Comment on above: Cervical radiculopat hy (Primary Dx); Left arm pain Start: 12-30-2021 End: 12-30-2021 ambulatory Martha Maher SCORING MACHINE OPERATOR Work Phone: [facility] Comment on above: Cervical radiculopat hy (Primary Dx); Left arm pain Start: 12-29-2021 End: 12-29-2021 Patient encounter procedure Eloisa Espinal MD Work Phone: [facility] Comment on above: Essential hypertensi on (Primary Dx); Mixed hyperlipidemia; Paroxysmal atrial fibrillation (HCC); Hx of CABG; Mild intermittent asthma without complication; Acquired hypothyroidism; Escobedo's esophagus determined by biopsy Start: 2021 End: 2021 ambulatory Martha Daviesba SCORING MACHINE OPERATOR Work Phone: [facility] Comment on above: Cervical radiculopat hy (Primary Dx); Left arm pain Start: 12-16-2021 End: 12-16-2021 ambulatory Bethanie Cline PT Work Phone: [facility] Comment on above: Cervical radiculopat hy (Primary Dx); Left arm pain Start: 12-14-2021 End: 12-14-2021 ambulatory Bethanie Cline PT Work Phone: [facility] Comment on above: Cervical radiculopat hy (Primary Dx); Left arm pain Start: 12-12-2021 Orders Only Jennifer braun PA-C Work Phone: Orthopaedics Comment on above: Cervical radiculopat hy Arm & neck injury Start: 12-08-2021 End: 12-08-2021 ambulatory Bethanie Blackrison PT Work Phone: [facility] Comment on above: Cervical radiculopat hy (Primary Dx); Left arm pain Start: 12-07-2021 End: 12-07-2021 Patient encounter procedure Alfredo Zayas MD Work Phone: [facility] Comment on above: Coronary artery dise ase involving tonawanda coronary artery of tonawanda heart without angina pectoris (Primary Dx); Hx of CABG; Mixed hyperlipidemia; Essential hypertension Start: 12-05-2021 End: 12-05-2021 Subsequent hospital visit by physician [facility] Work Phone: Radiology Comment on above: Left arm pain [M79.6 02] Start: 12-05-2021 End: 12-05-2021 Patient encounter procedure Kel Sun MD Work Phone: Orthopaedics Comment on above: Cervical radiculopat hy (Primary Dx); Left arm pain Start: 12-05-2021 End: 12-05-2021 Subsequent hospital visit by physician Xr [facility] [facility] Work Phone: Radiology Comment on above: Left elbow pain [M25 .522] Start: 11-29-2021 Orders Only Kel Sun MD Work Phone: Orthopaedics Comment on above: Left elbow pain (Amber zana Dx) Start: 11-02-2021 End: 11-02-2021 Patient encounter procedure Eloisa Espinal MD Work Phone: [facility] Comment on above: Lateral epicondyliti s of left elbow (Primary Dx) Start: 10-31-2021 ambulatory Eloisa sood MD Work Phone: [facility] Comment on above: injury and nerve archie n Start: 09-21-2021 Patient Outreach Eloisa dowell MD Work Phone: [facility] [place] Comment on above: Transition Of Care Start: 09-19-2021 Non-patient / Non-visit Dr. Vamsi Espinal Work Phone: [facility] Start: 09-19-2021 Non-patient / Non-visit Dr. Vamsi Espinal Work Phone: [facility] Start: 09-18-2021 Non-patient / Non-visit Dr. Vamsi Espinal Work Phone: [facility] Start: 09-17-2021 Non-patient / Non-visit Dr. Vamsi Espinal Work Phone: [facility] Start: 09-17-2021 End: 09-19-2021 Evaluation and management of inpatient [facility]Progressive Care [facility] Start: 08-18-2021 End: 08-18-2021 ambulatory Bethanie Cline PT Work Phone: [facility] Comment on above: DDD (degenerative di sc disease), lumbar (Primary Dx) Start: 08-10-2021 End: 08-10-2021 ambulatory Tanya Rodgers SCORING MACHINE OPERATOR Work Phone: [facility] Comment on above: DDD (degenerative di sc disease), lumbar (Primary Dx) Start: 08-05-2021 End: 08-05-2021 ambulatory Bethanie Cline PT Work Phone: [facility] Comment on above: DDD (degenerative di sc disease), lumbar (Primary Dx) Start: 08-02-2021 End: 08-02-2021 ambulatory Bethanie Cline PT Work Phone: [facility] Comment on above: DDD (degenerative di sc disease), lumbar (Primary Dx) Start: 07-28-2021 End: 07-28-2021 ambulatory Bethanie Cline PT Work Phone: [facility] Comment on above: DDD (degenerative di sc disease), lumbar (Primary Dx) Start: 07-26-2021 End: 07-26-2021 ambulatory Bethanie Cline PT Work Phone: [facility] Comment on above: DDD (degenerative di sc disease), lumbar (Primary Dx) Start: 07-21-2021 End: 07-21-2021 ambulatory Bethanie Cline PT Work Phone: [facility] Comment on above: DDD (degenerative di sc disease), lumbar (Primary Dx) Start: 07-18-2021 End: 07-18-2021 ambulatory Bethanie Cline PT Work Phone: [facility] Comment on above: DDD (degenerative di sc disease), lumbar (Primary Dx) Start: 07-15-2021 Telephone encounter Eloisa teresa MD Work Phone: [facility] Comment on above: Medication Request Start: 07-06-2021 End: 07-06-2021 Patient encounter procedure Eloisa Espinal MD Work Phone: [facility] Comment on above: Mixed hyperlipidemia (Primary Dx); Coronary artery disease involving tonawanda coronary artery of tonawanda heart without angina pectoris; Paroxysmal atrial fibrillation (HCC); Essential hypertension; Mild intermittent asthma without complication; Acquired hypothyroidism; Escobedo's esophagus with low grade dysplasia; DDD (degenerative disc disease), lumbar; Need for COVID-19 vaccine Start: 06-27-2021 ambulatory Eloisa sood MD Work Phone: [facility] Comment on above: New Medications Start: 06-23-2021 Refill Eloisa sood MD Work Phone: [facility] Comment on above: Refill Request Start: 06-20-2021 End: 06-20-2021 ambulatory JULIÁN BOOTHE Facility:[facility] Start: 06-20-2021 End: 06-20-2021 Patient encounter procedure Julián Boothe MD Work Phone: Thoracic Surgery Comment on above: Diaphragmatic hernia with obstruction, without gangrene (Primary Dx); Diaphragmatic hernia without obstruction and without gangrene Start: 06-10-2021 End: 06-10-2021 Subsequent hospital visit by physician [facility] ([facility]) Work Phone: Cat Scan Comment on above: Diaphragmatic hernia with obstruction, without gangrene [K44.0] Start: 06-04-2021 End: 06-04-2021 Patient encounter procedure Lyudmila R Giovanny HARRIS Work Phone: [facility] Comment on above: Acute sinusitis, rec urrence not specified, unspecified location (Primary Dx); Impacted cerumen of right ear Start: 05-31-2021 Orders Only Omkar Keating MD Work Phone: Gastroenterology Comment on above: Hiatal hernia (Prima ry Dx) Consult (Internal : Hiatal hernia) Start: 05-09-2021 ambulatory Omkar Keating MD Work Phone: [facility] Start: 05-09-2021 Patient encounter procedure Omkar Keating MD Work Phone: Gastroenterology Comment on above: Appointment for scop ing Start: 05-05-2021 ambulatory Eloisa sood MD Work Phone: [facility] [place] Comment on above: Prescription Start: 11-08-2020 End: 11-08-2020 Subsequent hospital visit by physician Xr [facility] [place] Work Phone: Radiology Comment on above: Cough [R05] Start: 07-23-2018 End: 09-19-2018 Patient encounter status Hoang Wright MD Work Phone: [facility] Procedures Date Procedure Procedure Detail Performing Clinician Start: 12-14-[address] Eloisa Espinal MD Work Phone: Start: 12-03-2024 Electrocardiogram DK BYNUM Start: 11-30-2024 Antibody screen DK BYNUM Comment on above: Order Comment: Specimen Type: BLOOD SPEC IMENOrdering Facility: [facility] Address: [address] [place] [address] Performed By: #### L [id number], TSCR, %RICARDO ####HOOD BLOOD BANKCLIA [id number] [place] [address] [place] Start: 11-30-2024 Electrocardiogram DK BYNUM Start: 11-30-2024 Urnls dip stick/tablet reagent auto microscopy Dr. Eloisa Espinal MD Work Phone: Start: 11-30-2024 Computed tomography of abdomen and pelvis with contrast Dr. Eloisa Espinal MD Work Phone: Start: 11-30-[address] Eloisa Espinal MD Work Phone: Start: 08-06-2024 Coagulation time, activated Dr. Eloisa Espinal MD Work Phone: Start: 07-04-[address] Eloisa Espinal MD Work Phone: Start: 07-03-2024 Coagulation time, activated Dr. Eloisa Espinal MD Work Phone: Start: 06-25-2024 X-ray of chest, PA and lateral views Dr. Eloisa Espinal MD Work Phone: Start: 05-22-2024 Cardiovascular stress test using pharmacologic stress agent Dr. Eloisa Espinal MD Work Phone: Start: 04-25-2024 Plain X-ray of shoulder Dr. Eloisa Espinal MD Work Phone: Start: 04-25-2024 CT of head without contrast Dr. Eloisa Espinal MD Work Phone: Start: 04-23-2024 Evaluation of diagnostic study results Dr. Eloisa Espinal MD Work Phone: Start: 11-15-2023 PFIZER-BIONTECH COVID-19 VACCINE AGE 12+ YR (COMIRNATY) Eloisa Espinal MD Work Phone: Start: 08-28-2023 Urnls dip stick/tablet rgnt auto w/o microscopy Juan King PA-C Work Phone: Start: 07-12-2023 Adult depression screening assessment Us 2 Work Phone: Start: 07-01-2023 Antibody screen ELOISA ESPINAL Comment on above: Order Comment: Specimen Type: BLOOD SPEC IMENOrdering Facility: [facility] Address: [facility] [place] [id number] Performed By: #### % RICARDO, TSCR ####[facility] BLOOD BANKCLIA [id number] [place] [address] [place] Start: 05-29-2023 Urnls dip stick/tablet rgnt auto w/o microscopy Juan King PA-C Work Phone: Start: 11-10-2022 Radiologic exam esophagus single contrast study Valentina Sánchez APRN.TRANSFER AND PUMPHOUSE OPERATOR CHIEF Work Phone: Start: 08-23-2022 Esophagogastroduodenoscopy transoral diagnostic Julián Boothe MD Work Phone: Start: 06-19-2022 Ct abdomen & pelvis w/o contrast material Eloisa Espinal MD Work Phone: Start: 04-18-2022 Esophagogastroduodenoscopy transoral diagnostic Regina Oswald MD Work Phone: Start: 12-05-2021 Radex spine cervical 4 or 5 views Nell Sun MD Work Phone: Start: 12-05-2021 Radex elbow 2 views Kel Sun MD Work Phone: Start: 09-19-2021 Cardiovascular stress test using pharmacologic stress agent Dr. Eloisa Espinal Work Phone: Start: 09-17-2021 Plain chest X-ray Start: 07-06-2021 PFIZER-BIONTECH COVID-19 VACCINE, AGE 12+ YR (WOO TOP) Eloisa Espinal MD Work Phone: Start: 06-10-2021 Ct thorax w/o contrast material Julián lamb MD Work Phone: Start: 11-08-2020 Radiologic exam chest 2 views Devin Goodman MD Work Phone: Start: 09-26-2020 Adult depression screening assessment Eloisa Espinal MD Work Phone: Start: 01-15-2019 History of cholecystectomy S/P cholecystectomy Eloisa hagen MD Work Phone: Start: 01-15-2019 History of coronary artery bypass grafting Hx of CABG Eloisa Espinal MD Work Phone: Start: 12-15-2018 Antibody screen Comment on above: Performed By: #### T&S #### [place] [address] Start: 07-24-2018 History of coronary artery bypass grafting History of coronary artery bypass graft Comment on above: BELLO to LAD, SVG to RCA, SVG to OM1 07/24 History of coronary artery bypass grafting Hx of CABG Alfredo Zayas MD Work Phone: History of coronary artery bypass grafting Hx of CABG Eloisa Espinal MD Work Phone: History of coronary artery bypass grafting Hx of CABG Eloisa Espinal MD Work Phone: History of coronary artery bypass grafting Hx of CABG Eloisa Espinal MD Work Phone: History of coronary artery bypass grafting Hx of CABG Eloisa Espinal MD Work Phone: Plan of Treatment Date Care Activity Detail Author Start: 05-16-2027 Diabetes Screening Diabetes Screening [facility] Start: 11-12-2026 Diabetes Screening Diabetes Screening [facility] Start: 08-08-2026 Diabetes Screening Diabetes Screening [facility] Start: 07-09-2026 Diabetes Screening Diabetes Screening [facility] Start: 07-04-2026 Diabetes Screening Diabetes Screening [facility] Start: 07-01-2026 Diabetes Screening Diabetes Screening [facility] Start: 05-07-2026 Diabetes Screening Diabetes Screening [facility] Start: 04-26-2026 Diabetes Screening Diabetes Screening [facility] Start: 03-28-2026 Diabetes Screening Diabetes Screening [facility] Start: 01-08-2026 Diabetes Screening Diabetes Screening [facility] Start: 08-25-2025 DIABETES SCREEN DIABETES SCREEN [facility] Start: 08-25-2025 Diabetes Screening Diabetes Screening [facility] Start: 08-23-2025 DIABETES SCREEN DIABETES SCREEN [facility] Start: 07-04-2025 DIABETES SCREEN DIABETES SCREEN [facility] Start: 05-16-2025 Covid-19 Vaccine ( season) Covid-19 Vaccine () [facility] Comment on above: Postponed from 05/15/2024 (Declined at t his time) Start: 05-15-2025 Hepatitis B surface antibody level LDL Cholesterol [facility] Start: 12-26-2024 DIABETES SCREEN DIABETES SCREEN [facility] Start: 12-18-2024 [facility] Start: 12-16-2024 End: 12-16-2024 Patient encounter procedure Pulmonary Medicine Comment on above: 3MTH FOLLOW UP Start: 12-14-2024 Development of care plan [facility] Start: 12-14-2024 Developing a treatment plan [facility] Start: 12-13-2024 Contact precautions [facility] Start: 12-13-2024 Consultation for treatment [facility] Start: 12-13-2024 Following clinical pathway protocol [facility] Start: 12-13-2024 Speech therapy assessment [facility] Start: 12-13-2024 Admission procedure [facility] Start: 12-13-2024 Introduction of urinary catheter [facility] Start: 12-13-2024 Measuring intake and output [facility] Start: 12-13-2024 Patient referral to dietitian [facility] Start: 12-13-2024 Referral for physical therapy [facility] Start: 12-13-2024 Referral to occupational therapist [facility] Start: 12-13-2024 Vital signs measurements [facility] Start: 12-13-2024 [facility] Start: 12-13-2024 Verification routine [facility] Start: 12-13-2024 Evaluation and management of inpatient Abdominal abscess -Transitional Care Unit Start: 12-13-2024 Application, wound VAC [facility] Start: 11-30-2024 [facility] Start: 11-26-2024 Annual PCP Team Chronic Disease Visit Annual PCP Team Chronic Disease Visit [facility] Start: 11-25-2024 End: 11-25-2024 Admission to same day surgery center 11/25/2024 10:11 AM EDT - 11/25/2024 12:06 PM EDT [address] [address] Dk Bynum MD [address] [place] [address] HERNIORRHAPHY INCISIONAL ABDOMINAL RECURRENT REDUCIBLE LESS THAN 3cm [facility] Surgery Comment on above: HERNIORRHAPHY INCISIONAL ABDOMINAL RECUR RENT REDUCIBLE LESS THAN 3cm Start: 11-25-2024 End: 11-25-2024 HERNIORRHAPHY INCISIONAL ABDOMINAL RECURRENT REDUCIBLE LESS THAN 3cm HERNIORRHAPHY INCISIONAL ABDOMINAL RECURRENT REDUCIBLE LESS THAN 3cm Incisional hernia, without obstruction or gangrene 11/25/2024 10:11 AM EDT ME OR Start: 11-25-2024 Subsequent hospital visit by physician 11/25/2024 10:11 AM EDT Hospital Encounter [facility] Surgery [address] [place] [address] Dk Bynum MD [address] [place] [address] Incisional hernia, without obstruction or gangrene [K43.2] [facility] Surgery Comment on above: Incisional hernia, without obstruction o r gangrene [K43.2] Start: 11-20-2024 End: 11-20-2024 Patient encounter procedure 11/20/2024 1:20 PM EDT Office Visit [facility] [address] [place], [place] [id number] Eloisa Espinal MD [address] [place], [place] [id number] MEDICARE WELLNESS [facility] Comment on above: MEDICARE WELLNESS Start: 11-15-2024 RSV Vaccine (1 - 1-dose 75+ series) RSV Vaccine (1 - 1-dose 75+ series) [facility] Comment on above: Postponed from 2017 (Insurance Cov erage) Start: 11-15-2024 Shingrix Vaccine (1 of 2) Shingrix [facility] of 2) [facility] Comment on above: Postponed from 1992 (Insurance Cov erage) Start: 10-03-2025 Annual PCP Team Chronic Disease Visit Annual PCP Team Chronic Disease Visit [facility] Start: 11-14-2024 BP Controlled (<130/80) BP Controlled (<130/80) [facility] Start: 11-13-2024 Hepatitis B surface antibody level LDL Cholesterol [facility] Start: 10-16-2024 End: 10-16-2024 Patient encounter procedure 10/16/2024 10:15 AM EDT Office Visit Urology [address] [address] Hoang Wright MD [address] [place] [address] 1 year follow up to scans Urology Comment on above: 1 year follow up to scans Start: 10-13-2024 Influenza vaccination Influenza Vaccine (#1) [facility] Start: 10-10-2024 End: 11-09-2024 US Kidney - bilateral and Urinary bladder US KIDNEY/BLADDER Radiology Routine Neoplasm of uncertain behavior of right kidney Expected: 10/10/2024, Expires: 11/09/2024 [facility] Work Phone: Comment on above: Expected: 10/10/2024, Expires: Start: 10-10-2024 End: 10-10-2024 Patient encounter procedure 10/10/2024 11:15 AM EDT Appointment Radiology [address] [place] [address] 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] Radiology Comment on above: 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] Start: 08-27-2024 BP Controlled (<130/80) BP Controlled (<130/80) [facility] Start: 08-12-2024 Annual PCP Team Chronic Disease Visit Annual PCP Team Chronic Disease Visit [facility] Start: 08-12-2024 BP Controlled (<130/80) BP Controlled (<130/80) [facility] Start: 08-06-2024 Patient discharge [facility] Start: 07-11-2024 Annual PCP Team Chronic Disease Visit Annual PCP Team Chronic Disease Visit [facility] Start: 07-11-2024 Anxiety Screening Anxiety Screening [facility] Start: 07-11-2024 BP Controlled (<130/80) BP Controlled (<130/80) [facility] Start: 07-11-2024 Depression Screening Depression Screening [facility] Start: 07-09-2024 Hepatitis B surface antibody level LDL Cholesterol [facility] Start: 07-04-2024 Patient discharge [facility] Start: 07-03-2024 Hepatitis B surface antibody level LDL Cholesterol [facility] Start: 07-03-2024 Following clinical pathway protocol [facility] Start: 07-03-2024 Admission procedure [facility] Start: 07-03-2024 End: 07-03-2024 [facility] Start: 07-03-2024 Cardiac monitoring [facility] Start: 07-03-2024 Cardiac rehabilitation - phase 1 [facility] Start: 07-03-2024 Cardiac rehabilitation - phase 2 [facility] Start: 07-03-2024 Notification of physician [facility] Start: 07-03-2024 Oxygen therapy [facility] Start: 07-03-2024 Patient discharge [facility] Start: 07-03-2024 Systemic arterial pressure monitoring [facility] Start: 07-03-2024 Taking patient vital signs [facility] Start: 07-03-2024 Vascular disease risk assessment [facility] Start: 07-03-2024 Vital signs measurements [facility] Start: 07-03-2024 Inhalation therapy procedure [facility] Start: 06-28-2024 DIABETES SCREEN DIABETES SCREEN [facility] Start: 05-28-2024 BP Controlled (<130/80) BP Controlled (<130/80) [facility] Start: 05-16-2024 End: 05-16-2024 Patient encounter procedure [facility] Comment on above: 6 month follow up 6 month follow up - discuss lower abd pain, fatigue. Hold on testing (stress test) due to surgery being needed. See Hail Varsity message 05/12/24. Start: 05-15-2024 End: 08-14-2024 CBC W Auto Differential panel - Blood COMPLETE BLOOD COUNT AND DIFFERENTIAL Lab Routine Acute blood loss anemia Paroxysmal atrial fibrillation (HCC) Expected: 05/15/2024 (Approximate), Expires: 08/14/2024 [facility] Comment on above: Expected: 05/15/2024 (Approximate), Expi res: 08/14/2024 Start: 05-15-2024 End: 08-14-2024 Comprehensive metabolic 2000 panel - Serum or Plasma COMPREHENSIVE METABOLIC PANEL Lab Routine Mixed hyperlipidemia 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) Expected: 05/15/2024 (Approximate), Expires: 08/14/2024 [facility] Comment on above: Expected: 05/15/2024 (Approximate), Expi res: 08/14/2024 Start: 05-15-2024 Covid-19 Vaccine () Covid-19 Vaccine () [facility] Start: 05-15-2024 End: 08-14-2024 Lipid 1996 panel - Serum or Plasma LIPID PANEL BASIC Lab Routine Mixed hyperlipidemia 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) Expected: 05/15/2024 (Approximate), Expires: 08/14/2024 [facility] Work Phone: Comment on above: Expected: 05/15/2024 (Approximate), Expi res: 08/14/2024 Start: 05-15-2024 End: 08-14-2024 Thyrotropin [Units/volume] in Serum or Plasma THYROID STIMULATING HORMONE Lab Routine Acquired hypothyroidism Expected: 05/15/2024 (Approximate), Expires: 08/14/2024 [facility] Comment on above: Expected: 05/15/2024 (Approximate), Expi res: 08/14/2024 Start: 05-15-2024 End: 05-15-2024 ambulatory 05/15/2024 10:45 AM EDT Results Only [place] [facility] [address] [facility] [place] [address] [place] [facility] Start: 05-09-2024 Annual PCP Team Chronic Disease Visit Annual PCP Team Chronic Disease Visit [facility] Start: 05-09-2024 BP Controlled (<130/80) BP Controlled (<130/80) [facility] Start: 05-06-2024 End: 05-06-2024 Admission to same day surgery center 05/06/2024 10:28 AM EDT - 05/06/2024 1:28 PM EDT Surgery [facility] Surgery [address] [place] [address] Dk Bynum MD [address] [place] [address] LAPAROSCOPIC HERNIA REPAIR INCISIONAL RECURRENT W/ MESH REDUCIBLE 3cm-10cm [facility] Surgery Comment on above: LAPAROSCOPIC HERNIA REPAIR INCISIONAL RE CURRENT W/ MESH REDUCIBLE 3cm-10cm Start: 05-06-2024 End: 05-06-2024 LAPAROSCOPIC HERNIA REPAIR INCISIONAL RECURRENT W/ MESH REDUCIBLE 3cm-10cm LAPAROSCOPIC HERNIA REPAIR INCISIONAL RECURRENT W/ MESH REDUCIBLE 3cm-10cm Umbilical hernia without obstruction or gangrene Recurrent incisional hernia 05/06/2024 10:28 AM EDT [facility] Start: 05-06-2024 Subsequent hospital visit by physician 05/06/2024 10:28 AM EDT Hospital Encounter [facility] Surgery [address] [place] [address] Dk Bynum MD [address] [place] [address] Umbilical hernia without obstruction or gangrene [K42.9], Recurrent incisional hernia [K43.2] [facility] Comment on above: Umbilical hernia without obstruction or gangrene [K42.9], Recurrent incisional hernia [K43.2] Start: 05-05-2024 End: 05-05-2024 Patient encounter procedure 05/05/2024 2:00 PM EDT Office Visit [facility] [place] [address] [place] [address] Eloisa Espinal MD [address] [place] [address] er follow up stitches out [facility] Comment on above: er follow up stitches out Start: 04-26-2024 [facility] Start: 04-25-2024 Simple repair scalp/neck/ax/genit/trunk 2.5cm/< RPR S/N/AX/GEN/TRNK 2.5CM/< [facility] Start: 04-25-2024 End: 04-25-2024 Anesthesia consultation 04/25/2024 12:40 PM EDT PAT Pre Anesthesia [address] [place] [address] 1, [facility] [address] [place] [address] 05/06 LAPAROSCOPIC HERNIA REPAIR INCISIONAL RECURRENT W/ MESH REDUCIBLE 3cm-10cm [21717] - Abdomen Pre Anesthesia Comment on above: 05/06 LAPAROSCOPIC HERNIA REPAIR INCISION AL RECURRENT W/ MESH REDUCIBLE 3cm-10cm [40384] - Abdomen Start: 04-23-2024 Evaluation of diagnostic study results 12 Lead EKG performed by [facility] Start: 04-22-2024 End: 04-22-2024 ambulatory 04/22/2024 2:00 PM EDT OT/PT/Speech Visit [facility] [address] [place] [address] Herman Kaur, PT [address] [place] [address] M54.31 (ICD-10-CM) - Sciatica, right side [facility] Comment on above: M54.31 (ICD-10-CM) - Sciatica, right ben e Start: 04-18-2024 End: 04-18-2024 ambulatory 04/18/2024 11:45 AM EST OT/PT/Speech Visit [facility] [address] [place] [address] Martha Maher, SCORING MACHINE OPERATOR [address] [place] [address] BACK [facility] Comment on above: BACK Start: 04-08-2024 End: 04-08-2024 ambulatory 04/08/2024 2:00 PM EST OT/PT/Speech Visit [facility] [address] [place] [address] Martha Maher, SCORING MACHINE OPERATOR [address] [place] [address] M54.31 (ICD-10-CM) - Sciatica, right side [place] [facility] Comment on above: M54.31 (ICD-10-CM) - Sciatica, right ben e Start: 04-08-2024 End: 04-08-2024 Admission to same day surgery center 04/08/2024 9:45 AM EST - 04/08/2024 12:45 PM EST Surgery [facility] Surgery [address] [place] [address] Dk Bynum MD [address] [place] [address] LAPAROSCOPIC HERNIA REPAIR INCISIONAL RECURRENT W/ MESH REDUCIBLE 3cm-10cm [facility] Surgery Comment on above: LAPAROSCOPIC HERNIA REPAIR INCISIONAL RE CURRENT W/ MESH REDUCIBLE 3cm-10cm Start: 04-08-2024 End: 04-08-2024 LAPAROSCOPIC HERNIA REPAIR INCISIONAL RECURRENT W/ MESH REDUCIBLE 3cm-10cm LAPAROSCOPIC HERNIA REPAIR INCISIONAL RECURRENT W/ MESH REDUCIBLE 3cm-10cm Umbilical hernia without obstruction or gangrene Recurrent incisional hernia 04/08/2024 9:45 AM EST ME OR Start: 04-08-2024 Subsequent hospital visit by physician 04/08/2024 9:45 AM EST Hospital Encounter [facility] Surgery [address] [place] [address] Dk Bynum MD [address] [place] [address] Umbilical hernia without obstruction or gangrene [K42.9], Recurrent incisional hernia [K43.2] [facility] Surgery Comment on above: Umbilical hernia without obstruction or gangrene [K42.9], Recurrent incisional hernia [K43.2] Start: 04-08-2024 End: 04-08-2024 Admission to same day surgery center 04/08/2024 7:30 AM EST - 04/08/2024 10:15 AM EST Surgery [facility] Surgery [address] [place] [id number] Dk Bynum MD [address] [place] [address] LAPAROSCOPIC HERNIA REPAIR INCISIONAL RECURRENT W/ MESH REDUCIBLE 3cm-10cm [facility] Surgery Comment on above: LAPAROSCOPIC HERNIA REPAIR INCISIONAL RE CURRENT W/ MESH REDUCIBLE 3cm-10cm Start: 04-08-2024 End: 04-08-2024 LAPAROSCOPIC HERNIA REPAIR INCISIONAL RECURRENT W/ MESH REDUCIBLE 3cm-10cm LAPAROSCOPIC HERNIA REPAIR INCISIONAL RECURRENT W/ MESH REDUCIBLE 3cm-10cm Umbilical hernia without obstruction or gangrene Recurrent incisional hernia 04/08/2024 7:30 AM EST ME OR Start: 04-08-2024 Subsequent hospital visit by physician 04/08/2024 7:30 AM EST Hospital Encounter [facility] Surgery [address] [place] [id number] Dk Bynum MD [address] [place] [address] Umbilical hernia without obstruction or gangrene [K42.9], Recurrent incisional hernia [K43.2] [facility] Surgery Comment on above: Umbilical hernia without obstruction or gangrene [K42.9], Recurrent incisional hernia [K43.2] Start: 04-02-2024 End: 04-02-2024 Anesthesia consultation 04/02/2024 10:40 AM EST PAT Pre Anesthesia [address] [place] [address] 1, [facility] [place] [address] [place] [address] DOS 04/08 Pre Anesthesia Comment on above: DOS 04/08 Start: 04-01-2024 End: 04-01-2024 ambulatory 04/01/2024 2:00 PM EST OT/PT/Speech Visit [facility] Physical Therapy [address] [place] [address] Herman Kaur, PT [address] [place] [address] M54.31 (ICD-10-CM) - Sciatica, right side [facility] Physical Therapy Comment on above: M54.31 (ICD-10-CM) - Sciatica, right ben e Start: 03-26-2024 End: 03-26-2024 Patient encounter procedure 03/26/2024 11:45 AM EST Office Visit General Surgery [address] [place] [address] Dk Bynum MD [address] [place] [address] Umbilical hernia without obstruction or gangrene [K42.9] General Surgery Comment on above: Umbilical hernia without obstruction or gangrene [K42.9] Start: 03-24-2024 End: 03-24-2024 ambulatory 03/24/2024 10:30 AM EST OT/PT/Speech [facility] [address] [place] [address] Herman Kaur PT [address] [place] [address] M54.31 (ICD-10-CM) - Sciatica, right side [place] [facility] Physical Therapy Comment on above: M54.31 (ICD-10-CM) - Sciatica, right ben e Start: 03-20-2024 End: 06-19-2024 Thyrotropin [Units/volume] in Serum or Plasma THYROID STIMULATING HORMONE Lab Routine Acquired hypothyroidism Expected: 03/20/2024, Expires: 06/19/2024 [facility] Work Phone: Comment on above: Expected: 03/20/2024, Expires: Start: 03-19-2024 End: 03-19-2024 Patient encounter procedure 03/19/2024 11:40 AM EST Office Visit [facility] [place] [address] [place] [address] Elsa Mayo, SANDY.TRANSFER AND PUMPHOUSE OPERATOR CHIEF [address] [place] [address] increased SOB and fatigue per PT [facility] [place] Comment on above: increased SOB and fatigue per PT Start: 03-18-2024 End: 03-18-2024 ambulatory 03/18/2024 2:00 PM EST OT/PT/Speech Visit [facility] Physical Therapy [address] [place] [address] GolHerman stanford, PT [address] [place] [address] M54.31 (ICD-10-CM) - Sciatica, right side [place] [facility] Physical Therapy Comment on above: M54.31 (ICD-10-CM) - Sciatica, right ben e Start: 03-16-2024 BP Controlled (<130/80) BP Controlled (<130/80) [facility] Start: 03-11-2024 End: 03-11-2024 ambulatory 03/11/2024 2:00 PM EST OT/PT/Speech Visit [facility] Physical Therapy [address] [place] [address] Martha Maher, SCORING MACHINE OPERATOR [address] [place] [address] M54.31 (ICD-10-CM) - Sciatica, right side [place] [facility] Physical Therapy Comment on above: M54.31 (ICD-10-CM) - Sciatica, right ben e Start: 03-04-2024 End: 03-04-2024 ambulatory 03/04/2024 2:00 PM EST OT/PT/Speech Visit [facility] Physical Therapy [address] [place] [address] Pancho Maherh, SCORING MACHINE OPERATOR [address] [place] [address] M54.31 (ICD-10-CM) - Sciatica, right side [place] [facility] Physical Therapy Comment on above: M54.31 (ICD-10-CM) - Sciatica, right ben e Start: 02-26-2024 End: 02-26-2024 ambulatory 02/26/2024 2:00 PM EST OT/PT/Speech Visit [facility] Physical Therapy [address] [place] [address] GolHerman stanford, PT [address] [place] [address] M54.31 (ICD-10-CM) - Sciatica, right side [place] [facility] Physical Therapy Comment on above: M54.31 (ICD-10-CM) - Sciatica, right ben e Start: 02-20-2024 End: 02-20-2024 ambulatory 02/20/2024 2:00 PM EST OT/PT/Speech Visit [facility] Physical Therapy [address] [place] [address] Martha Maher, SCORING MACHINE OPERATOR [address] [place] [address] M54.31 (ICD-10-CM) - Sciatica, right side [place] [facility] Physical Therapy Comment on above: M54.31 (ICD-10-CM) - Sciatica, right ben e Start: 02-18-2024 End: 02-18-2024 ambulatory 02/18/2024 2:45 PM EST OT/PT/Speech Visit [facility] Physical Therapy [address] [place] [address] Martha Maher, SCORING MACHINE OPERATOR [address] [place] [address] M54.31 (ICD-10-CM) - Sciatica, right side [place] [facility] Physical Therapy Comment on above: M54.31 (ICD-10-CM) - Sciatica, right ben e Start: 02-14-2024 End: 02-14-2024 ambulatory 02/14/2024 3:00 PM EST OT/PT/Speech Visit [facility] Physical Therapy [address] [place] [address] Herman Kaur, PT [address] [place] [address] Sciatica, right side [M54.31] [facility] Physical Therapy Comment on above: Sciatica, right side [M54.31] Start: 02-13-2024 Advance Directive Discussion Advance Directive Discussion [facility] Start: 02-13-2024 RSV Vaccine (1 - 1-dose 60+ series) RSV Vaccine (1 - 1-dose 60+ series) [facility] Comment on above: Postponed from 2002 (Insurance Cov erage) Start: 02-13-2024 RSV Vaccine (1 - 1-dose 75+ series) RSV Vaccine (1 - 1-dose 75+ series) [facility] Comment on above: Postponed from 2017 (Insurance Cov erage) Start: 02-13-2024 Shingrix Vaccine (1 of 2) Shingrix Vaccine (1 of 2) [facility] Comment on above: Postponed from 1992 (Insurance Cov erage) Start: 02-11-2024 End: 02-11-2024 ambulatory 02/11/2024 12:45 PM EST OT/PT/Speech Visit [facility] [place] [address] [place], [place] [phone] Aleksey Hinojosa, PT [address] [place] [address] Sciatica, right side [M54.31] [facility] [place] Comment on above: Sciatica, right side [M54.31] Start: 02-07-2024 Annual PCP Team Chronic Disease Visit Annual PCP Team Chronic Disease Visit [facility] Start: 01-15-2024 End: 01-15-2024 ambulatory 01/15/2024 1:15 PM EST OT/PT/Speech Visit [facility] Physical Therapy [address] [place], [place] [phone] Herman Kaur, PT [address] [place], [place] [phone] Sciatica, right side [M54.31] [facility] Physical Therapy Comment on above: Sciatica, right side [M54.31] Start: 01-12-2024 End: 01-12-2024 Patient encounter procedure 01/12/2024 11:00 AM EST Office Visit Family [facility] Rios [address] [facility] [place], [place] [address] Eloisa Espinal MD [address] [facility] [place], [place] [phone] Lower back pain [facility] [place] Comment on above: Lower back pain Start: 01-10-2024 Annual PCP Team Chronic Disease Visit Annual PCP Team Chronic Disease Visit [facility] Start: 01-10-2024 BP Controlled (<130/80) BP Controlled (<130/80) [facility] Start: 01-09-2024 Hepatitis B surface antibody level LDL Cholesterol [facility] Start: 11-27-2023 End: 11-27-2023 Patient encounter procedure 11/27/2023 1:20 PM EDT Office Visit [facility] Jenny Rios [address] [facility], [place] [phone] Mike Lee APRN.TRANSFER AND PUMPHOUSE OPERATOR CHIEF [address] [facility] [place], [place] [phone] ER follow up Family [facility] [place] Comment on above: ER follow up Start: 11-15-2023 End: 11-15-2023 Patient encounter procedure 11/15/2023 11:20 AM EDT Office Visit [facility] Jenny Rios [address] [facility] [place], [place] [phone] Eloisa Espinal MD [address] [facility] [place] [phone] 3 mo f/u [facility] [place] Comment on above: 3 mo f/u Start: 11-13-2023 End: 02-12-2024 CBC W Auto Differential panel - Blood COMPLETE BLOOD COUNT AND DIFFERENTIAL Lab Routine Anemia, unspecified type Retroperitoneal hemorrhage Expected: 11/13/2023 (Approximate), Expires: 02/12/2024 [facility] Work Phone: Comment on above: Expected: 11/13/2023 (Approximate), Expi res: 02/12/2024 Start: 11-13-2023 End: 02-12-2024 Comprehensive metabolic 2000 panel - Serum or Plasma COMPREHENSIVE METABOLIC PANEL Lab Routine Syncope, unspecified syncope type Essential hypertension Mixed hyperlipidemia Low sodium levels Expected: 11/13/2023 (Approximate), Expires: 02/12/2024 [facility] Comment on above: Expected: 11/13/2023 (Approximate), Expi res: 02/12/2024 Start: 11-13-2023 End: 02-12-2024 Lipid 1996 panel - Serum or Plasma LIPID PANEL BASIC Lab Routine Essential hypertension 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) Hx of CABG Mixed hyperlipidemia Expected: 11/13/2023 (Approximate), Expires: 02/12/2024 [facility] Comment on above: Expected: 11/13/2023 (Approximate), Expi res: 02/12/2024 Start: 11-13-2023 End: 02-12-2024 Phosphate [Mass/volume] in Serum or Plasma PHOSPHORUS INORGANIC Lab Routine Hypophosphataemia Expected: 11/13/2023 (Approximate), Expires: 02/12/2024 [facility] Comment on above: Expected: 11/13/2023 (Approximate), Expi res: 02/12/2024 Start: 11-13-2023 End: 02-12-2024 Thyrotropin [Units/volume] in Serum or Plasma THYROID STIMULATING HORMONE Lab Routine Acquired hypothyroidism Expected: 11/13/2023 (Approximate), Expires: 02/12/2024 [facility] Comment on above: Expected: 11/13/2023 (Approximate), Expi res: 02/12/2024 Start: 11-11-2023 BP Controlled (<130/80) BP Controlled (<130/80) [facility] Start: 10-14-2023 Covid-19 Vaccine () Covid-19 Vaccine () [facility] Start: 10-14-2023 Covid-19 Vaccine () Covid-19 Vaccine () [facility] Start: 10-14-2023 Influenza vaccination Influenza Vaccine (#1) [facility] Start: 10-11-2023 End: 10-11-2023 Patient encounter procedure 10/11/2023 10:45 AM EDT Office Visit Urology [address] [address] Hoang Wright MD [address] [place] [address] 3 month hospital consult follow up w/ US prior (regarding RP hematoma) Urology Comment on above: 3 month hospital consult follow up w/ US prior (regarding RP hematoma) Start: 10-02-2023 End: 07-31-2024 US Kidney - bilateral and Urinary bladder [facility] Work Phone: Comment on above: Expected: 10/02/2023, Expires: Start: 10-02-2023 End: 10-02-2023 Patient encounter procedure 10/02/2023 1:00 PM EDT Appointment Radiology [address] [place], [place] [phone] Retroperitoneal hematoma [K68.3] Radiology Comment on above: Retroperitoneal hematoma [K68.3] Start: 09-05-2023 BP CONTROLLED (<130/80) BP CONTROLLED (<130/80) [facility] in Start: 08-28-2023 End: 08-28-2023 Patient encounter procedure 08/28/2023 1:00 PM EDT Office Visit Urology [address] [place], [place] [phone] Juan King PA-C [address] [place] [address] 3 MTH F/U Urology Comment on above: 3 MTH F/U Start: 08-13-2023 End: 08-13-2023 Patient encounter procedure 08/13/2023 12:00 PM EDT Office Visit [facility] [place] [address] [place], [place] [phone] Eloisa Espinal MD [address] [place], [place] [phone] 1 mo f/u [facility] [place] Comment on above: 1 mo f/u Start: 08-09-2023 End: 11-08-2023 CBC W Auto Differential panel - Blood COMPLETE BLOOD COUNT AND DIFFERENTIAL Lab Routine Anemia, unspecified type Expected: 08/09/2023 (Approximate), Expires: 11/08/2023 [facility] Comment on above: Expected: 08/09/2023 (Approximate), Expi res: 11/08/2023 Start: 08-09-2023 End: 11-08-2023 Comprehensive metabolic 2000 panel - Serum or Plasma COMPREHENSIVE METABOLIC PANEL Lab Routine Syncope, unspecified syncope type Essential hypertension Low sodium levels Expected: 08/09/2023 (Approximate), Expires: 11/08/2023 [facility] Comment on above: Expected: 08/09/2023 (Approximate), Expi res: 11/08/2023 Start: 08-09-2023 End: 11-08-2023 Phosphate [Mass/volume] in Serum or Plasma PHOSPHORUS INORGANIC Lab Routine Hypophosphataemia Expected: 08/09/2023 (Approximate), Expires: 11/08/2023 [facility] Comment on above: Expected: 08/09/2023 (Approximate), Expi res: 11/08/2023 Start: 08-01-2023 End: 08-01-2023 Patient encounter procedure 08/01/2023 2:30 PM EDT Office Visit Vasculary Surgery [address] [place] [address] Syncope, unspecified syncope type [R55]; Essential hypertension [I10]; Paroxysmal atrial fibrillation (HCC) [I48.0]; 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) [I25.720]; Hx of CABG [Z95.1] Vascul[facility] Surgery Comment on above: Syncope, unspecified syncope type [R55]; Essential hypertension [I10]; Paroxysmal atrial fibrillation (HCC) [I48.0]; 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) [I25.720]; Hx of CABG [Z95.1] Start: 07-24-2023 End: 07-24-2023 Patient encounter procedure 07/24/2023 2:40 PM EDT Office Visit Cardiology [address] [place] [address] Syncope, unspecified syncope type [R55]; Essential hypertension [I10]; Paroxysmal atrial fibrillation (HCC) [I48.0]; 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) [I25.720]; Hx of CABG [Z95.1] Cardiology Comment on above: Syncope, unspecified syncope type [R55]; Essential hypertension [I10]; Paroxysmal atrial fibrillation (HCC) [I48.0]; 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) [I25.720]; Hx of CABG [Z95.1] Start: 07-12-2023 End: 07-12-2023 Patient encounter procedure 07/12/2023 11:00 AM EDT Office Visit Family Jenny Rios [address] [place] [address] Eloisa Espinal MD [address] [place] [address] 6 mo f/u Family [place] [facility] Comment on above: 6 mo f/u Start: 07-08-2023 ANNUAL PCP TEAM CHRONIC DISEASE VISIT ANNUAL PCP TEAM CHRONIC DISEASE VISIT [facility] Start: 07-08-2023 BP CONTROLLED (<130/80) BP CONTROLLED (<130/80) [facility] Start: 07-05-2023 Hepatitis B surface antibody level LDL CHOLESTEROL [facility] Start: 06-24-2023 BP CONTROLLED (<130/80) BP CONTROLLED (<130/80) [facility] Start: 06-18-2023 DIABETES SCREEN DIABETES SCREEN [facility] Start: 06-10-2023 ANNUAL PCP TEAM CHRONIC DISEASE VISIT ANNUAL PCP TEAM CHRONIC DISEASE VISIT [facility] Start: 06-10-2023 BP CONTROLLED (<130/80) BP CONTROLLED (<130/80) [facility] Start: 05-10-2023 Covid-19 Vaccine () Covid-19 Vaccine () [facility] Start: 04-26-2023 End: 07-26-2023 Comprehensive metabolic 2000 panel - Serum or Plasma COMP METABOLIC PANEL Lab Routine Frequent urination Expected: 04/26/2023, Expires: 07/26/2023 [facility] Work Phone: Comment on above: Expected: 04/26/2023, Expires: 4 Start: 04-26-2023 End: 07-26-2023 Prostate Specific Ag Free [Mass/volume] in Serum or Plasma PSA FREE Lab Routine Frequent urination Expected: 04/26/2023, Expires: 07/26/2023 [facility] Work Phone: Comment on above: Expected: 04/26/2023, Expires: Start: 04-23-2023 End: 07-23-2023 Urinalysis complete panel - Urine URINALYSIS WITH MICROSCOPIC, REFLEX CULTURE Lab Routine Frequent urination Expected: 04/23/2023, Expires: 07/23/2023 [facility] Work Phone: Comment on above: Expected: 04/23/2023, Expires: 4 Start: 03-16-2023 BP CONTROLLED (<130/80) BP CONTROLLED (<130/80) [facility] Start: 02-12-2023 Advance Directive Discussion Advance Directive Discussion [facility] Start: 02-12-2023 Behavioral Health Screening Behavioral Health Screening [facility] Start: 02-12-2023 Depression Assessment Depression Assessment [facility] Start: 01-01-2023 [facility] Start: 12-29-2022 ANNUAL PCP TEAM CHRONIC DISEASE VISIT ANNUAL PCP TEAM CHRONIC DISEASE VISIT [facility] Start: 12-29-2022 BP CONTROLLED (<130/80) BP CONTROLLED (<130/80) [facility] Start: 12-29-2022 Urine microalbumin profile [facility] Comment on above: Postponed from 05/29/2017 (Insurance Cov erage) Start: 12-26-2022 Hepatitis B surface antibody level LDL CHOLESTEROL [facility] Start: 12-07-2022 BP CONTROLLED (<130/80) BP CONTROLLED (<130/80) [facility] Start: 11-02-2022 ANNUAL PCP TEAM CHRONIC DISEASE VISIT ANNUAL PCP TEAM CHRONIC DISEASE VISIT [facility] Start: 11-02-2022 BP CONTROLLED (<130/80) BP CONTROLLED (<130/80) [facility] Start: 10-13-2022 Covid-19 Vaccine ( season) Covid-19 Vaccine ( season) [facility] Start: 10-13-2022 Influenza vaccination [facility] Start: 09-22-2022 ANNUAL PCP TEAM CHRONIC DISEASE VISIT ANNUAL PCP TEAM CHRONIC DISEASE VISIT [facility] Start: 09-22-2022 BP CONTROLLED (<130/80) BP CONTROLLED (<130/80) [facility] Start: 07-06-2022 ANNUAL PCP TEAM CHRONIC DISEASE VISIT ANNUAL PCP TEAM CHRONIC DISEASE VISIT [facility] Start: 07-06-2022 BP CONTROLLED (<130/80) BP CONTROLLED (<130/80) [facility] Start: 06-28-2022 End: 08-28-2022 CBC panel - Blood by Automated count CBC Lab Routine Essential hypertension Paroxysmal atrial fibrillation (HCC) Expected: 06/28/2022 (Approximate), Expires: 08/28/2022 [facility] Work Phone: Comment on above: Expected: 06/28/2022 (Approximate), Expi res: 08/28/2022 Start: 06-28-2022 End: 08-28-2022 Comprehensive metabolic 2000 panel - Serum or Plasma COMP METABOLIC PANEL Lab Routine Mixed hyperlipidemia Expected: 06/28/2022 (Approximate), Expires: 08/28/2022 [facility] Work Phone: Comment on above: Expected: 06/28/2022 (Approximate), Expi res: 08/28/2022 Start: 06-28-2022 Hepatitis B surface antibody level LDL CHOLESTEROL [facility] Start: 06-28-2022 End: 08-28-2022 Lipid 1996 panel - Serum or Plasma LIPID PANEL BASIC Lab Routine Mixed hyperlipidemia Expected: 06/28/2022 (Approximate), Expires: 08/28/2022 [facility] Work Phone: Comment on above: Expected: 06/28/2022 (Approximate), Expi res: 08/28/2022 Start: 06-28-2022 End: 08-28-2022 Thyrotropin [Units/volume] in Serum or Plasma TSH BLD Lab Routine Acquired hypothyroidism Expected: 06/28/2022 (Approximate), Expires: 08/28/2022 [facility] Work Phone: Comment on above: Expected: 06/28/2022 (Approximate), Expi res: 08/28/2022 Start: 06-04-2022 BP CONTROLLED (<130/80) BP CONTROLLED (<130/80) [facility] Start: 04-17-2022 End: 05-01-2022 SARS-CoV-2 (COVID-19) RNA [Presence] in Respiratory specimen by [place] with probe detection [facility] Work Phone: Comment on above: Expected: 04/17/2022, Expires: Start: 04-11-2022 COVID-19 VACCINE (6 - Pfizer series) COVID-19 VACCINE (6 - Pfizer series) [facility] Start: 03-30-2022 ANNUAL PCP TEAM CHRONIC DISEASE VISIT ANNUAL PCP TEAM CHRONIC DISEASE VISIT [facility] Start: 03-30-2022 BP CONTROLLED (<130/80) BP CONTROLLED (<130/80) [facility] Start: 02-12-2022 ADVANCE DIRECTIVE DISCUSSION ADVANCE DIRECTIVE DISCUSSION [facility] Start: 02-12-2022 DEPRESSION ASSESSMENT DEPRESSION ASSESSMENT [facility] Start: 01-06-2022 End: 03-08-2022 CBC W Auto Differential panel - Blood CBC + DIFF Lab Routine Coronary artery disease involving [place] coronary artery of ton[place]anda heart without angina pectoris Paroxysmal atrial fibrillation (HCC) Escobedo's esophagus with low grade dysplasia Expected: 01/06/2022 (Approximate), Expires: 03/08/2022 [facility] Work Phone: Comment on above: Expected: 01/06/2022 (Approximate), Expi res: 03/08/2022 Start: 01-06-2022 End: 03-08-2022 Comprehensive metabolic 2000 panel - Serum or Plasma COMP METABOLIC PANEL Lab Routine Mixed hyperlipidemia Coronary artery disease involving [place] coronary artery of [place] heart without angina pectoris Expected: 01/06/2022 (Approximate), Expires: 03/08/2022 [facility] Work Phone: Comment on above: Expected: 01/06/2022 (Approximate), Expi res: 03/08/2022 Start: 01-06-2022 End: 03-08-2022 LIPID PANEL BASIC LIPID PANEL BASIC Lab Routine Mixed hyperlipidemia Coronary artery disease involving [place] coronary artery of [place] heart without angina pectoris Expected: 01/06/2022 (Approximate), Expires: 03/08/2022 [facility] Work Phone: Comment on above: Expected: 01/06/2022 (Approximate), Expi res: 03/08/2022 Start: 01-06-2022 End: 03-08-2022 Thyrotropin [Units/volume] in Serum or Plasma TSH BLD Lab Routine Acquired hypothyroidism Expected: 01/06/2022 (Approximate), Expires: 03/08/2022 [facility] Work Phone: Comment on above: Expected: 01/06/2022 (Approximate), Expi res: 03/08/2022 Start: 12-31-2021 HEPATITIS C SCREENING HEPATITIS C SCREENING [facility] Comment on above: Postponed from 1960 (Declined at t his time) Start: 10-13-2021 Influenza vaccination INFLUENZA (#1) [facility] Start: 09-26-2021 Adult depression screening assessment DEPRESSION SCREENING [facility] Start: 09-21-2021 Blood chemistry [facility] Work Phone: Start: 09-20-2021 Blood chemistry [facility] Work Phone: Start: 09-19-2021 Patient discharge [facility] Work Phone: Start: 09-19-2021 Inhalation therapy procedure [facility] Work Phone: Start: 09-17-2021 Following clinical pathway protocol [facility] Work Phone: Start: 09-17-2021 Following clinical pathway protocol [facility] Work Phone: Start: 09-17-2021 Ambulation without limitation [facility] Work Phone: Start: 09-17-2021 Assessment of risk of venous thromboembolism [facility] Work Phone: Start: 09-17-2021 Incentive spirometry [facility] Work Phone: Start: 09-17-2021 Insertion of catheter into peripheral vein [facility] Work Phone: Start: 09-17-2021 Measuring intake and output [facility] Work Phone: Start: 09-17-2021 Oxygen therapy [facility] Work Phone: Start: 09-17-2021 Providing care according to standard [facility] Work Phone: Start: 09-17-2021 Referral to occupational therapist [facility] Work Phone: Start: 09-17-2021 Referral to service [facility] Work Phone: Start: 09-17-2021 Tobacco use cessation education [facility] Work Phone: Start: 09-17-2021 [facility] Work Phone: Start: 09-17-2021 Admission procedure [facility] Work Phone: Start: 09-17-2021 Blood chemistry [facility] [facility] Work Phone: Start: 09-17-2021 End: 09-17-2021 [facility] Work Phone: Start: 08-31-2021 COVID-19 VACCINE (5 - Booster for Pfizer series) COVID-19 VACCINE (5 - Booster for Pfizer series) [facility] Start: 03-25-2021 COVID-19 VACCINE (4 - Booster for Pfizer series) COVID-19 VACCINE (4 - Booster for Pfizer series) [facility] Start: 02-12-2021 ADVANCE DIRECTIVE DISCUSSION ADVANCE DIRECTIVE DISCUSSION [facility] Start: 02-12-2021 DEPRESSION ASSESSMENT DEPRESSION ASSESSMENT [facility] Start: 10-30-2020 Hepatitis B surface antibody level LDL CHOLESTEROL [facility] Start: 12-26-2018 FECAL OCCULT BLOOD FECAL OCCULT BLOOD [facility] Start: 12-26-2018 Screening for malignant neoplasm of colon Fecal Occult Blood [facility] Start: 12-27-2017 COLORECTAL CANCER SCREENING COLORECTAL CANCER SCREENING [facility] Start: 12-27-2017 Screening for malignant neoplasm of colon Colorectal Cancer Screening [facility] Start: 2017 RSV Vaccine (1 - 1-dose 75+ series) RSV Vaccine (1 - 1-dose 75+ series) [facility] Start: 05-29-2017 Urine microalbumin profile [facility] Start: 12-14-2007 Medicare Annual Wellness Visit Medicare Annual Wellness Visit [facility] Start: 2002 RSV Vaccine (1 - 1-dose 60+ series) RSV Vaccine (1 - 1-dose 60+ series) [facility] Start: 1992 SHINGRIX VACCINE (1 of 2) SHINGRIX VACCINE (1 of 2) [facility] Start: 12-24-1987 COLOGUARD (FIT-DNA) COLOGUARD (FIT-DNA) [facility] Start: 12-24-[address] COLONOGRAPHY [facility] Start: 12-24-1987 Screening for malignant neoplasm of colon [facility] Start: 12-24-1987 SIGMOIDOSCOPY SIGMOIDOSCOPY [facility] Start: 1960 BP CONTROLLED (<130/80) BP CONTROLLED (<130/80) [facility] Start: 1960 Colonoscopy COLONOSCOPY [facility] Start: 1960 Screening for malignant neoplasm of colon Colonoscopy [facility] Anion gap in Serum o r Plasma [facility] Anion gap in Serum o r Plasma [facility] Anion gap in Serum o r Plasma [facility] Anion gap in Serum o r Plasma [facility] Anion gap in Serum o r Plasma [facility] Anion gap in Serum o r Plasma [facility] BUN/Creatinine ratio [facility] BUN/Creatinine ratio [facility] BUN/Creatinine ratio [facility] BUN/Creatinine ratio [facility] BUN/Creatinine ratio [facility] BUN/Creatinine ratio [facility] Calcium [Mass/volume ] in Serum or Plasma [facility] Calcium [Mass/volume ] in Serum or Plasma [facility] Calcium [Mass/volume ] in Serum or Plasma [facility] Calcium [Mass/volume ] in Serum or Plasma [facility] Calcium [Mass/volume ] in Serum or Plasma [facility] Calcium [Mass/volume ] in Serum or Plasma [facility] Carbon dioxide silvino nt measurement [facility] Carbon dioxide silvino nt measurement [facility] Carbon dioxide silvino nt measurement [facility] Carbon dioxide silvino nt measurement [facility] Carbon dioxide silvino nt measurement [facility] Carbon dioxide silvino nt measurement [facility] Complete blood count [facility] Comprehensive metabo lic 2000 panel - Serum or Plasma [facility] Creatinine [Mass/vol ume] in Serum or Plasma [facility] Creatinine [Mass/vol ume] in Serum or Plasma [facility] Creatinine [Mass/vol ume] in Serum or Plasma [facility] Creatinine [Mass/vol ume] in Serum or Plasma [facility] Creatinine [Mass/vol ume] in Serum or Plasma [facility] Creatinine [Mass/vol ume] in Serum or Plasma [facility] End: 07-09-2023 Ct abdomen & pelvis w/o contrast material CT ABD/PEL WO IVCON Radiology Routine RLQ abdominal pain Right upper quadrant abdominal mass Change in bowel function 1 Occurrences starting 06/09/2022 until 07/09/2023 [facility] Work Phone: Comment on above: 1 Occurrences starting 06/09/2022 until 07/09/2023 End: 06-30-2022 Ct thorax w/o contrast material CT CHEST WO IVCON Radiology Routine Diaphragmatic hernia with obstruction, without gangrene 1 Occurrences starting 05/31/2021 until 06/30/2022 [facility] Work Phone: Comment on above: 1 Occurrences starting 05/31/2021 until 06/30/2022 End: 07-11-2024 Echocardiography ECHO Cardiology Routine Syncope, unspecified syncope type Essential hypertension Paroxysmal atrial fibrillation (HCC) 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) Hx of CABG 1 Occurrences starting 07/12/2023 until 07/11/2024 [facility] Work Phone: Comment on above: 1 Occurrences starting 07/12/2023 until 07/11/2024 End: 03-16-2023 EGD DIAGNOSTIC EGD DIAGNOSTIC Endoscopy Routine Escobedo's esophagus with low grade dysplasia 1 Occurrences starting 03/16/2022 until 03/16/2023 [facility] Work Phone: Comment on above: 1 Occurrences starting 03/16/2022 until 03/16/2023 Erythrocyte mean corpuscular volume determination [facility] Erythrocyte mean corpuscular volume determination [facility] Erythrocyte mean corpuscular volume determination [facility] Erythrocyte mean corpuscular volume determination [facility] Erythrocyte mean corpuscular volume determination [facility] Glucose [Mass/volume ] in Serum or Plasma [facility] Glucose [Mass/volume ] in Serum or Plasma [facility] Glucose [Mass/volume ] in Serum or Plasma [facility] Glucose [Mass/volume ] in Serum or Plasma [facility] Glucose [Mass/volume ] in Serum or Plasma [facility] Glucose [Mass/volume ] in Serum or Plasma [facility] Hematocrit [Volume Fraction] of Blood [facility] Hematocrit [Volume Fraction] of Blood [facility] Hematocrit [Volume Fraction] of Blood [facility] Hematocrit [Volume Fraction] of Blood [facility] Hematocrit [Volume Fraction] of Blood [facility] Hemoglobin [Mass/vol ume] in Blood [facility] Hemoglobin [Mass/vol ume] in Blood [facility] Hemoglobin [Mass/vol ume] in Blood [facility] Hemoglobin [Mass/vol ume] in Blood [facility] Hemoglobin [Mass/vol ume] in Blood [facility] Leukocytes [#/volume ] in Blood [facility] Leukocytes [#/volume ] in Blood [facility] Leukocytes [#/volume ] in Blood [facility] Leukocytes [#/volume ] in Blood [facility] Leukocytes [#/volume ] in Blood [facility] Lipid 1996 panel - S buffy or Plasma [facility] End: 06-30-2022 LUNG DIFFUSION CAPACITY (DLCO) LUNG DIFFUSION CAPACITY (DLCO) PFT Routine Diaphragmatic hernia with obstruction, without gangrene 1 Occurrences starting 05/31/2021 until 06/30/2022 [facility] Work Phone: Comment on above: 1 Occurrences starting 05/31/2021 until 06/30/2022 Magnesium [Mass/volu me] in Serum or Plasma [facility] Work Phone: Mean corpuscular hemoglobin concentration determination [facility] Mean corpuscular hemoglobin concentration determination [facility] Mean corpuscular hemoglobin concentration determination [facility] Mean corpuscular hemoglobin concentration determination [facility] Mean corpuscular hemoglobin concentration determination [facility] Mean corpuscular hemoglobin determination [facility] Mean corpuscular hemoglobin determination [facility] Mean corpuscular hemoglobin determination [facility] Mean corpuscular hemoglobin determination [facility] Mean corpuscular hemoglobin determination [facility] Measurement of renal function [facility] Measurement of renal function [facility] Measurement of renal function [facility] Measurement of renal function [facility] Measurement of renal function [facility] Measurement of renal function [facility] Measurement of respiratory function [facility] Neutrophil count [facility] Neutrophil count [facility] Neutrophil count [facility] Neutrophil count [facility] Neutrophil count [facility] Neutrophil percent differential count [facility] Neutrophil percent differential count [facility] Neutrophil percent differential count [facility] Neutrophil percent differential count [facility] Neutrophil percent differential count [facility] NM Heart Views W str ess and W radionuclide IV [facility] Patient Education [facility] Work Phone: Patient referral [facility] Work Phone: Platelets [#/volume] in Blood [facility] Platelets [#/volume] in Blood [facility] Platelets [#/volume] in Blood [facility] Platelets [#/volume] in Blood [facility] Platelets [#/volume] in Blood [facility] POST VOID RESIDUAL POST VOID RES IDUAL Procedures Routine BPH associated with nocturia Screening for genitourinary condition Ordered: 05/29/2023 [facility] Work Phone: Comment on above: Ordered: 05/29/2023 POST VOID RESIDUAL POST VOID RES IDUAL Procedures Routine BPH associated with nocturia Ordered: 08/28/2023 [facility] Work Phone: Comment on above: Ordered: 08/28/2023 Potassium measurement [facility] Potassium measurement [facility] Potassium measurement [facility] Potassium measurement [facility] Potassium measurement [facility] Potassium measurement [facility] PT PLAN OF CARE CERTIFICATION PT PLAN OF CARE CERTIFICATION Procedures Routine Cervical radiculopathy Left arm pain Ordered: 12/08/2021 [facility] Work Phone: Comment on above: Ordered: 12/08/2021 PT PLAN OF CARE CERTIFICATION PT PLAN OF CARE CERTIFICATION Procedures Routine Cervical radiculopathy Left arm pain Ordered: 01/11/2022 [facility] Work Phone: Comment on above: Ordered: 01/11/2022 Red blood cell count [facility] Red blood cell count [facility] Red blood cell count [facility] Red blood cell count [facility] Red blood cell count [facility] Red cell distributio n width determination [facility] Red cell distributio n width determination [facility] Red cell distributio n width determination [facility] Red cell distributio n width determination [facility] Red cell distributio n width determination [facility] Serum chloride measurement [facility] Serum chloride measurement [facility] Serum chloride measurement [facility] Serum chloride measurement [facility] Serum chloride measurement [facility] Serum chloride measurement [facility] Sodium measurement [facility] Sodium measurement [facility] Sodium measurement [facility] Sodium measurement [facility] Sodium measurement [facility] Sodium measurement [facility] End: 06-30-2022 SPIROMETRY WITH DILATOR IF OBSTRUCTED SPIROMETRY WITH DILATOR IF OBSTRUCTED PFT Routine Diaphragmatic hernia with obstruction, without gangrene 1 Occurrences starting 05/31/2021 until 06/30/2022 [facility] Work Phone: Comment on above: 1 Occurrences starting 05/31/2021 until 06/30/2022 SURGICAL PATHOLOGY [facility] Work Phone: Comment on above: Release Upon Ordering for 1 Occurrences starting 04/18/2022, 1 completed Thyroid stimulating hormone measurement [facility] Thyrotropin [Units/volume] in Serum or Plasma THYROID STIMULATING HORMONE Lab Routine Acquired hypothyroidism 03/21/2024 1:54 PM [facility] Urea nitrogen [Mass/volume] in Serum or Plasma [facility] Urea nitrogen [Mass/volume] in Serum or Plasma [facility] Urea nitrogen [Mass/volume] in Serum or Plasma [facility] Urea nitrogen [Mass/volume] in Serum or Plasma [facility] Urea nitrogen [Mass/volume] in Serum or Plasma [facility] Urea nitrogen [Mass/volume] in Serum or Plasma [facility] End: 07-11-2024 US Carotid arteries - bilateral US CAROTID ARTERIES [facility] V[facility] Lab Routine Syncope, unspecified syncope type Essential hypertension Paroxysmal atrial fibrillation (HCC) 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) Hx of CABG 1 Occurrences starting 07/12/2023 until 07/11/2024 [facility] Comment on above: 1 Occurrences starting 07/12/2023 until 07/11/2024 Heart [facility] End: 12-29-2022 XR ELBOW GENERAL 2V AP/LAT LEFT XR ELBOW GENERAL 2V AP/LAT LEFT Radiology Routine Left elbow pain 1 Occurrences starting 11/29/2021 until 12/29/2022 [facility] Work Phone: Comment on above: 1 Occurrences starting 11/29/2021 until 12/29/[address] [facility] & [facility] Immunizations Immunization Date Immunization Notes Care Provider [facility] 11-20-2024 influenza, high dose seasonal, preservative-free Dr. 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 Eloisa Espinal MD Work Phone: [facility] 12-12-2021 Influenza High-Dose Quadrivalent Dr. Eloisa Espinal MD Work Phone: [facility] 12-12-2021 influenza, high dose seasonal, preservative-free Bethanie Blackrison PT Work Phone: [facility] 12-12-2021 influenza virus vacc ine, unspecified formulation Gi (I-Stat) [facility] 07-06-2021 Covid (Pfizer) Dr. Eloisa abbott MD Work Phone: [facility] 07-06-2021 COVID-19 vaccine, ag e 12+ yr (PFIZER-BIONTECH - WOO TOP) Eloisa Espinal MD Work Phone: [facility] 12-18-2020 influenza, high-dose , quadrivalent vaccine (FLUZONE HIGH DOSE QUADRIVALENT) Eloisa Espinal MD Work Phone: [facility] 11-22-2020 COVID-19 vaccine, ag e 12+ yr (PFIZER-BIONTECH - PURPLE TOP) Eloisa Espinal MD Work Phone: [facility] 04-30-2020 COVID-19 vaccine, ag e 12+ yr (PFIZER-BIONTECH - PURPLE TOP) Eloisa Espinal MD Work Phone: [facility] Work Phone: 04-09-2020 COVID-19 vaccine, ag e 12+ yr (PFIZER-BIONTECH - PURPLE TOP) Eloisa Espinal MD Work Phone: [facility] 12-06-2019 influenza, high-dose , quadrivalent vaccine (FLUZONE HIGH DOSE QUADRIVALENT) Eloisa Espinal MD Work Phone: [facility] 12-06-2018 influenza, high dose seasonal, preservative-free Eloisa Espinal MD Work Phone: [facility] 11-27-2018 Influenza virus vaccine [facility] 11-10-2017 influenza, high dose seasonal, preservative-free Eloisa Espinal MD Work Phone: [facility] 11-13-2016 influenza, high dose seasonal, preservative-free Eloisa Espinal MD Work Phone: [facility] 11-20-2015 influenza, high dose seasonal, preservative-free Eloisa Espinal MD Work Phone: [facility] 11-21-2014 influenza, high dose seasonal, preservative-free Eloisa Espinal MD Work Phone: [facility] 11-04-2014 pneumococcal conjuga te vaccine, 13 valent Eloisa Espinal MD Work Phone: [facility] 12-10-2013 influenza, injectabl e, quadrivalent, preservative free Dr. Eloisa Espinal MD Work Phone: [facility] 12-10-2013 influenza, seasonal, injectable Eloisa Espinal MD Work Phone: [facility] 12-07-2012 influenza virus vacc ine, unspecified formulation Eloisa Espinal MD Work Phone: [facility] Work Phone: 01-02-2012 influenza virus vacc ine, unspecified formulation Eloisa Espinal MD Work Phone: [facility] 12-13-2010 influenza virus vacc ine, unspecified formulation Eloisa Espinal MD Work Phone: [facility] Work Phone: 12-02-2009 influenza virus vacc ine, unspecified formulation Eloisa Espinal MD Work Phone: [facility] Work Phone: 05-26-2008 pneumococcal polysaccharide vaccine, 23 valent Eloisa Espinal MD Work Phone: [facility] Work Phone: 12-19-2007 influenza virus vacc ine, unspecified formulation Eloisa Espinal MD Work Phone: [facility] 05-30-2007 tetanus toxoid, redu lynda diphtheria toxoid, and acellular pertussis vaccine, adsorbed Eloisa Espinal MD Work Phone: [facility] Work Phone: 12-28-2006 influenza virus vacc ine, unspecified formulation Eloisa Espinal MD Work Phone: [facility] Work Phone: 12-12-2005 influenza virus vacc ine, unspecified formulation Eloisa Espinal MD Work Phone: [facility] Work Phone: 04-12-1997 diphtheria and tetan us toxoids, adsorbed for pediatric use Eloisa Espinal MD Work Phone: [facility] Work Phone: Payers Date Payer Category Payer Self-pay [id number] 2015 Private Health Insurance [employer] HU[employer]NA MEDICARE SUPPLEMENT [id number] 2015-Present [phone] [address] [address] [place] [address] Indemnity [id number] 2015 Private Health Insurance [id number] 2015 Private Health Insurance [id number] 2007 Medicare MEDICARE MEDICAR E A AND B [id number] 2007-[facility] [phone] [address] [address] [place] [address] Medicare [id number] 2007 Medicare [id number] 2007 Medicare [id number] Unknown [id number] Unknown [id number] .[id number] Unknown [id number] .[id number] Unknown [id number] .[id number] Unknown [id number] .2.462 Unknown [id number] .2.462 Unknown [id number] .2.462 Unknown [id number] .2.462 Unknown [id number] .2.462 Unknown [id number] [id number] .2.462 Unknown [id number] [id number] .2.462 Unknown [id number] .2.462 Unknown [id number] [id number] .2.462 Unknown [id number] .2.462 Unknown [id number] [id number] .2.462 Unknown [id number] [id number] .2.462 Unknown [id number] [id number] .2.462 Unknown [id number] [id number] .2.462 Unknown [id number] [id number] .2.462 Unknown [id number] .2.462 Unknown [id number] .2.462 Social History Date Type Detail Facility Start: 06-20-2021 End: 12-13-2024 Tobacco smoking status NHIS Ex-smoker [facility] Start: [birth year]-12-1954 End: 02-12-1981 History of tobacco use Current smoker [facility] Start: [birth year]-12-1954 End: 02-12-1981 History of tobacco use Cigarette Smoker [facility] Start: 03-30-2021 End: 03-16-2023 Alcohol intake Current drinker of alcohol (finding) [facility] Start: 03-30-2021 End: 04-18-2024 Alcohol intake [facility] Start: 11-04-2019 End: 06-30-2022 History SDOH Alcohol Frequency 3 [facility] Start: 11-04-2019 End: 06-30-2022 History SDOH Alcohol Std Drinks 1 [facility] Start: 08-27-2018 History SDOH Alcohol Comment 2-3 cans of beer per week [facility] Start: 06-02-2019 End: 05-19-2023 History SDOH Social Connections Phone 5 [facility] Start: 06-02-2019 End: 06-30-2022 History SDOH Social Connections Zoroastrianism 98 [facility] Start: 11-03-2019 History SDOH Physical Activity DPW 6 [facility] Start: 11-03-2019 History SDOH Financial 4 [facility] Start: 06-02-2019 End: 12-28-2021 History SDOH Transport Med 2 [facility] Start: 06-02-2019 Education 18 [facility] Start: 1940 Sex Assigned At Male [facility] Start: 10-09-2020 End: 12-29-2021 Exposure to SARS-CoV-2 (event) Not sure [facility] Work Phone: Start: 06-20-2021 End: 11-02-2021 Tobacco Comment occasional former pipe smoker [facility] Start: 09-17-2021 End: 01-01-2023 Tobacco smoking status NHIS Unknown if ever smoked [facility] Start: 12-14-2018 None [facility] Start: 12-14-2018 Spouse/ Significant Other [facility] Start: 06-20-2021 End: 11-15-2023 Tobacco use and exposure Smokeless tobacco non-user [facility] Work Phone: Start: 06-30-2022 End: 04-18-2024 Social connection and isolation panel [facility] Start: 01-14-2012 How often do you attend druze or yazidism services? Patient refused [facility] Do you belong to any clubs or organizations such as druze groups, unions, fraternal or athletic groups, or school groups? Yes [facility] Are you now , , , , never or living with a partner? [facility] How many standard dr inks containing alcohol do you have on a typical day? 1 or 2 [facility] How often do you hav e 6 or more drinks on 1 occasion? Never [facility] Do you feel stress - tense, restless, nervous, or anxious, or unable to sleep at night because your mind is troubled all the time - these days [OSQ] Not at all [facility] (I/We) worried whejose david er (my/our) food would run out before (I/we) got money to buy more. Never true [facility] In the past 12 month s, was there a time when you were not able to pay the mortgage or rent on time? No [facility] Start: 04-20-2018 Gender identity Identifies as male gender (finding) [facility] Start: 06-06-2021 Sexual orientation Heterosexual (finding) [facility] How often to you hav e a drink containing alcohol? 2-4 times a month [facility] How hard is it for y ou to pay for the very basics like food, housing, medical care, and heating Not very hard [facility] Start: 03-28-2023 End: 10-02-2024 Alcohol intake Ex-drinker (finding) [facility] Start: 03-28-2023 Alcohol Comment 1/ week [facility] Start: 04-26-2024 End: 05-27-2024 Sex Male (finding) [facility] Medical Equipment Procedure Code Equipment Code Equipment Original Text Equipment Identifier Dates [place] Thk1.65mm P tfe 4x.5in Cardiovascular Sterile - [id number] Start: 07-24-2018 Drug-eluting cor onary artery stent, [id number]-[id number]-taium er-coated ()[id number] FDA Start: 07-03-2024 Drug-eluting cor onary artery stent, [id number]-misyk er-coated ()[id number] FDA Start: 07-03-2024 Goals Date Patient Goal Desired Activity /State Personal health goal Functional Status Date Assessment Result Facility 12-18-2024 Functional status With Assist of 1 [facility] Work Phone: 07-04-2024 Functional status Ambulates [facility] Work Phone: 07-05-2023 Are you deaf, or do you have serious difficulty hearing No 07/05/2023 1:33 PM Emelina Arciniega, RN [facility] 07-05-2023 Are you blind, or do you have serious difficulty seeing, even when wearing glasses No 07/05/2023 1:33 PM Emelina Arciniega, RN [facility] 07-05-2023 Do you have serious difficulty walking or climbing stairs No 07/05/2023 1:33 PM EDT Emelina Cortez, [place] No [facility] 07-05-2023 Do you have difficul ty dressing or bathing No 07/05/2023 1:33 PM EDT Emelina Cortez, [place] No [facility] 07-05-2023 Because of a physica l, mental, or emotional condition, do you have difficulty doing errands alone such as visiting a physician's office or shopping No 07/05/2023 1:33 PM EDT Emelina Cortez, [place] No [facility] 09-19-2021 Functional status Ambulates;Chair [facility] Work Phone: Mental Status Date Assessment Result Facility 12-18-2024 Cognitive function Voice/Name [facility] Work Phone: 07-04-2024 Cognitive function Voice/Name [facility] Work Phone: 07-05-2023 Because of a physica l, mental, or emotional condition, do you have serious difficulty concentrating, remembering, or making decisions No 07/05/2023 1:33 PM EDT Emelina Cortez RN No [facility] 09-19-2021 Cognitive function Voice/Name [facility] Work Phone: 09-17-2021 Cognitive function Level Of Cons ciousness Awake;Alert;Appropriate [facility] Work Phone: Clinical Notes 12-20-2018 to 12-22-2024 Note Date & Type Note Facility 12-22-2024 Note [facility] Medical Records Department [address] [place] [address] Discharge Summary 12/22/24 0754 MR#: [id number] Acct: [id number] Name: JAYDEN CRAIG Rep #: [id number] : 1940 83 From: Haider Lazo MD PCP: Dr. Eloisa Espinal MD Status:ADM IN Location: [place] [address]- Providers Date of Admission: 12/13/24 Primary Care Physician: Dr. Eloisa Espinal MD Consultations 12/13/24 18:24 Consult: Onc/Wound/physician general internal medicine Routine Comment: Reason for Consult:: s/p hernia repair hematoma/infection 12/20/24 07:02 Consult: Gastroenterology Routine Consulting Provider: [facility] Reason for Consult: Positive Occult Stool EMERGENT Consult: No MD Notified: Yes Date Notified: 12/20/24 Time Notified: 07:02 Method of Notification: Text Reason For Visit: HERNIA REPAIR S/P HEMATOMA Diagnosis Discharge Diagnosis (1) Atrial fibrillation: Status: Acute Code(s): I48.91 - Unspecified atrial fibrillation (2) Acute blood loss anemia: Status: Acute Code(s): D62 - Acute posthemorrhagic anemia Plan 83 year old male with below past medical history hospitalized for abdominal pain, sepsis 2/2 abdominal hematoma/abscess s/p incision and drainage, complicated by acute respiratory failure with hypoxia 2/2 COPD, acute blood loss anemia requiring transfusions, admitted to TCU with debility, here for rehabilitation, strengthening, wound care, prior to discharge home with . * Debility - PT/OT. * Dysphagia - ST. * Pain - Tylenol 650mg q4 prn. * Bowel - senna/colace 1 tablet bid. * Adult immunization - Administer pneumonia vaccine, covid vaccine, flu vaccine as appropriate. * DVT prophylaxis - Hold, on dual antiplatelet therapy, recent bleed. * COPD - Fluticasone/Salmeterol 232-14 1 puff bid, Albuterol 2 puffs q4 prn. * Coronary artery disease - Metoprolol 50mg bid, Plavix 75mg daily, Aspirin 81mg daily. * Allergic rhinitis - Flonase 2 sprays nasal bid. * Edema - Furosemide 40mg daily. * Hypothyroidism - Levothyroxine 175mcg daily. * Hypomagnesemia - Magnesium 128mg daily. * Nutrition - MVI 1 tablet daily. * Nausea - Zofran 4mg q8 prn. * Barretts esophagus - Pantoprazole 40mg bid. * Hyperlipidemia - Simvastatin 80mg qhs. * BPH - Tamsulosin 0.4mg qhs. Medications at Discharge Home Medications acetaminophen 325 mg tablet 650 mg PO Q4H PRN Pain Or Fever 12/09/18 magnesium oxide 400 mg PO DAILY supplement 12/09/18 multivitamin 1 tab PO QAM vitamin 12/09/18 simvastatin 80 mg tablet 80 mg PO QHS cholesterol 12/09/18 fluticasone propionate 50 mcg/actuation nasal spray,suspension 2 spray intranasal BID stuffiness 09/17/21 levothyroxine 175 mcg tablet 175 mcg PO DAILY disorder of thyroid gland 06/30/23 tamsulosin 0.4 mg capsule 0.4 mg PO QHS prostate 06/30/23 albuterol sulfate 90 mcg/actuation aerosol inhaler 2 puff inhalation Q4H PRN shortness of breath or wheezing 04/15/24 clopidogrel 75 mg tablet 75 mg PO DAILY blood thinner #30 tabs 07/03/24 fluticasone furoate 200 mcg-vilanterol 25 mcg/dose inhalation powder (Breo Ellipta) 1 inh inhalation QDAY lungs 11/11/24 metoprolol tartrate 50 mg tablet 50 mg PO BID blood pressure #180 tabs 11/11/24 aspirin 325 mg tablet,delayed release 325 mg PO DAILY heart health 12/13/24 ondansetron HCl 4 mg tablet 4 mg PO Q8H PRN PRN nausea/vomiting 12/13/24 torsemide 20 mg tablet 20 mg PO DAILY swelling 12/13/24 pantoprazole 40 mg tablet,delayed release 40 mg PO BID 30 days #60 tabs 12/22/24 potassium chloride 20 mEq tablet,extended release(part/cryst) 20 meq PO DAILYCM 30 days #30 tabs 12/22/24 Hospital Course Operations - (See below.) Procedures None Summary of Care Provided Minutes Spent on Discharge: 35 Hospital Course: 83 year old male with below past medical history hospitalized for abdominal pain, sepsis 2/2 abdominal hematoma/abscess s/p incision and drainage, complicated by acute respiratory failure with hypoxia 2/2 COPD, acute blood loss anemia requiring transfusions, admitted to TCU with debility, here for rehabilitation, strengthening, wound care, prior to discharge home with . Discharge home with 12/24/2024, [facility] PT/OT/SN, Hospital Bed. Hospital Bed: Patient requires a hospital bed d/t needing frequent changes in position to alleviate pain, prevent ongoing pressure areas, assist in healing of current pressure areas, prevent aspiration or d/t respiratory condition that is not feasible in an ordinary bed. Dx: COPD, chronic respiratory failure with hypoxia. 12/22/2024 Dr. Anderson performing EGD for anemia, +hemoccult. Physical Exam Const alert General Appearance: cooperative HEENT normocephalic Eyes PERRL and EOMs intact bilaterally Neck supple, no JVD and no carotid bruits Resp normal respiratory effort, normal air movement and clear to auscultation bilaterally Cardio regular (more content not included)... [facility] 12-13-2024 Note [facility] Medical Records Department [address] [place] [address] History Physical Exam 12/13/24 1906 MR#: [id number] Acct: [id number] Name: JAYDEN CRAIG Rep #: [id number] : 1940 83 From: Haider Lazo MD PCP: Dr. Eloisa Espinal MD Status:ADM IN Location: [place] [id number] HPI - General General Date of Admission: 12/13/24 Date of Service: 12/15/24 Chief Complaint: Here for rehabilitation. HPI Narrative JAYDEN CRAIG, is a 83 M who presents with followin11/26/2024 Dr. Bynum performed incisional hernia repair. 12/01/2024 Admit to [facility] with abdominal wall swelling. Transferred from [facility] with abdominal wall swelling, ecchymoses at surgical site. WBC 37, Hemoglobin 6.9. CT abdomen/pelvis showed post surgical hematoma versus developing abscess. Zosyn/Vancomycin IV given. Transfuse 1 unit PRBC for anemia. Hold Plavix, continue Aspirin. No anticoagulation for atrial fibrillation. Incision and drainage of abdominal hematoma done at bedside. Transferred to ICU for COPD exacerbation, acute respiratory failure with hypoxia. 12/08/2024 Doing well, no abdominal pain, no fever, no chills. Lasix given in ICU for fluid overload. Hemoglobin stable at 8.7. WBC improved to 22.44, wound culture 1 colony forming unit coagulase negative staph. Sputum normal terence, blood cultures negative. CTA chest/abdomen to rule out pulmonary embolism, and intraabdominal bleed. Wound VAC changes every Mo, , We. No signs of intraabdominal failure or failure of repair. 12/12/2024 Patient on room air, on IV antibiotics. Diarrhea checked for C. Difficile. Patient required blood transfusion for anemia 2/2 hematoma. Finished IV antibiotics prior to transfer. 12/13/2024 Admit to TCU with debility, here for rehabilitation, strengthening, wound care, wound VAC, prior to discharge home with . [facility] Medical History (Updated 12/13/24 @ 19:[address] Haider Lazo MD) History of left heart catheterization Paroxysmal atrial fibrillation Mild intermittent asthma without complication Shortness of breath Peptic ulcer, site unspecified, unspecified as acute or chronic, without hemorrhage or perforation Hyperlipidemia Chronic fatigue, unspecified Essential hypertension Constipation CAD (coronary artery disease) 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 Acquired hypothyroidism Abdominal wall hernia Atherosclerosis of coronary artery of [place] heart without angina pectoris Hiatal hernia Hypothyroidism Escobedo's esophagus GERD (gastroesophageal reflux disease) DDD (degenerative disc disease), lumbar Home Medications ???Medication ???Instructions ???Recorded ???Last Taken ???Type acetaminophen 325 mg tablet 650 mg PO Q4H PRN Pain Or Fever Unknown History magnesium oxide 400 mg PO DAILY supplement 9 07/03/24 History multivitamin 1 tab PO QAM vitamin 12/09/18 Unkn own History pantoprazole 40 mg tablet,delayed 40 mg PO BID prevent ulcers 12/0907/03/24 History release simvastatin 80 mg tablet 80 mg PO QHS cholesterol 12/09/18 Unknown History fluticasone propionate 50 2 spray intranasal BID stuffiness 09/17/21 07/03/24 History mcg/actuation nasal spray,suspension ibuprofen 200 mg tablet 200 mg PO Q6H PRN pain #30 tabs Unknown Rx levothyroxine 175 mcg tablet 175 mcg PO DAILY disorder of 06/2908/06/24 History thyroid gland tamsulosin 0.4 mg capsule 0.4 mg PO QHS prostate 06/30/23 Un known History albuterol sulfate 90 mcg/actuation 2 puff inhalation Q4H PRN Unknown History aerosol inhaler shortness of breath or wheezing clopidogrel 75 mg tablet 75 mg PO DAILY blood thinner #30 0 07/03/24 08/06/24 Rx tabs fluticasone furoate 200 1 inh inhalation QDAY lungs Unknown History mcg-vilanterol 25 mcg/dose inhalation powder (Breo Ellipta) metoprolol tartrate 50 mg tablet 50 mg PO BID blood pressure #180 0 11/11/24 Unknown Rx tabs aspirin 325 mg tablet,delayed 325 mg PO DAILY heart health 12/13 Unknown History release ondansetron HCl 4 mg tablet 4 mg PO Q8H PRN PRN nausea/vomitin g 12/13/24 Unknown History torsemide 20 mg tablet 20 mg PO DAILY swelling 12/13/24 U nknown History Allergy/AdvReac Type Severity Reaction Status Date / Time cefdinir (From Omnicef) Allergy Intermediate Diarrhea Verified 11/30/24 10:33 atorvastatin AdvReac Intermediate myalgias Verified 11/30/24 10:33 azithromycin (From Zithromax) AdvReac Nausea/Vom/ Verified 11/30/24 10:33 Diarrhea Family History Mother Emphysema of lung Father Emphysema of lung Surgical History History of ventral hernia repair Hx laparosco (more content not included)... [facility] 12-12-2024 Note [facility] 12-11-2024 Note [facility] 12-10-2024 Note [facility] 12-10-2024 Note [facility] 12-09-2024 Note [facility] 12-09-2024 Note HNO ID: [id number] Author: IVY RIZVI MA Service: ? Author Type: Accounting Assistant Type: Progress Notes Filed: 12/09/2024 10:10 Note Text: POPULATION HEALTH NAVIGATION OUTREACH Action/FYI UPDATED APPOINTMENT NOTE HCC Topic Due (Y or N) Comments Medicare Wellness Y PCP Follow up Colorectal Cancer Screening Y Controlling Blood Pressure A1C HCC Flu Vaccine Care Everywhere Reviewed MyChart Activation Updated Appointment Note Reason for Outreach Care Gap/HCC or Scheduling Wellness Visits Care Gaps due: Medicare Annual Wellness Visit Colorectal Cancer Screening Patient Contacted: Unable or unnecessary to reach patient: HCC related Patient already scheduled Updated appointment notes Navigation Signature: Ivy Rizvi MA December 09, 2024 10:08 AM [facility] 12-09-2024 Note Patient Outreach (JANETTE [place]) JAYDEN CRAIG ([id number]) 1940 M NFR Date Time Provider Department 12/09/24 IVY RIZVI During your visit today, we recorded the following information about you: Ivy Rizvi MA 12/09/2024 10:10 AM Signed POPULATION HEALTH NAVIGATION OUTREACH Action/FYI UPDATED APPOINTMENT NOTE HCC Topic Due (Y or N) Comments Medicare Wellness Y PCP Follow up Colorectal Cancer Screening Y Controlling Blood Pressure A1C HCC Flu Vaccine Care Everywhere Reviewed MyChart Activation Updated Appointment Note Reason for Outreach Care Gap/HCC or Scheduling Wellness Visits Care Gaps due: Medicare Annual Wellness Visit Colorectal Cancer Screening Patient Contacted: Unable or unnecessary to reach patient: HCC related Patient already scheduled Updated appointment notes Navigation Signature: Ivy Rizvi MA December 09, 2024 10:08 AM Allergies As of Date: 12/09/2024 Noted Allergy Reaction LIPITOR (ATORVASTATIN CALCIUM) 02/01/2006 5 - Intolerance Comments: myalgias OMNICEF (CEFDINIR) 2013 6 - Diarrhea ZITHROMAX (AZITHROMYCIN) 02/23/2005 Date Reviewed: 12/08/2024 Reviewed by: Zenaida Farr RN - Fully Assessed Reason for Visit: Population Health Navigation Outreach [3910] Cmt: CORINNA WORKBEGRCAIE RIOS PCSA Prescriptions as of 12/09/2024 - Ibuprofen 200 mg cap Take 200 mg by mouth every 6 hours as needed for pain. - levothyroxine (LEVOXYL) 175 mcg tablet Take 1 tablet by mouth once daily. Take on empty stomach. For thyroid. - fluticasone-vilanterol (BREO ELLIPTA) 200-25 mcg/dose inhaler Inhale 1 inhalation as instructed once daily. - clopidogrel (PLAVIX) 75 mg tablet Take 75 mg by mouth once daily. - albuterol HFA (PROVENTIL HFA, VENTOLIN HFA) 90 mcg/actuation inhaler Inhale 2 puffs as instructed every 4 hours as needed. - metoprolol tartrate, short acting, (LOPRESSOR) 25 mg tablet Take 1 tablet by mouth two times a day. - pantoprazole DR (PROTONIX) 40 mg tablet Take 1 tablet by mouth two times a day. Take on empty stomach, 1/2 hr before meal. - simvastatin (ZOCOR) 80 mg tablet Take 1 tablet by mouth daily at bedtime. - ondansetron (ZOFRAN) 4 mg tablet Take 1 tablet by mouth every 8 hours as needed for nausea/vomiting. - fluticasone (FLONASE) 50 mcg/actuation nasal spray Use 2 Sprays in each nostril once daily. Rinse mouth after use. - albuterol HFA (PROVENTIL HFA, VENTOLIN HFA) 90 mcg/actuation inhaler Inhale 2 Puffs as instructed every 4 hours as needed for wheezing/shortness of breath. - tamsulosin (FLOMAX) 0.4 mg TAKE 1 CAPSULE BY MOUTH EVERYDAY AT BEDTIME - aspirin, enteric coated (ASPIRIN, ENTERIC COATED) 325 mg EC tablet Take 1 tablet by mouth once daily. - magnesium oxide (MAG-OX) 400 mg (241.3 mg magnesium) tablet Take 1 tablet by mouth once daily. - acetaminophen (TYLENOL) 325 mg tablet Take 2 tablets by mouth every 4 hours as needed. - THERAPEUTIC MULTIVITAMIN TAB Take 1 tablet by mouth once daily. Facility-Administered Medications as of 12/09/2024 - clopidogrel 75 mg tab(s) (PLAVIX) - torsemide 20 mg tab(s) (DEMADEX) - benzocaine-menthol 1 lozenge (CEPACOL) - melatonin 3 mg tab(s) - potassium chloride ER 20 mEq tab(s) (KLOR-CON) - acetaminophen 650 mg tab(s) (TYLENOL) - acetaminophen 650 mg suppository (TYLENOL) - meropenem 1 g in NaCl 0.9% 100 mL Vial-Bag (MERREM) - vancomycin iv piggyback 1 g in D5W 200 mL (VANCOCIN) - docusate sodium 100 mg cap(s) (COLACE) - guaiFENesin 600 mg ER tab(s) (MUCINEX) - ipratropium-albuterol 3 mL nebulizer solution (DUONEB) - vancomycin dosing and monitoring per pharmacy - NaCl 0.9% iv flush bag - aspirin, enteric coated 325 mg tab(s) - simvastatin 80 mg tab(s) (ZOCOR) - tamsulosin 0.4 mg cap(s) (FLOMAX) - albuterol HFA 90 mcg/actuation 2 puff (PROVENTIL HFA, VENTOLIN HFA) - pantoprazole DR 40 mg tab(s) (PROTONIX) - metoprolol tartrate (short acting) 50 mg tab(s) (LOPRESSOR) - levothyroxine (SYNTHROID) tab(s) 175 mcg - mometasone-formoterol 200-5 mcg/actuation 2 puff inhaler (DULERA) Meds Comments as of 12/26/2018: 12/25/18 The medications are managed by this patient by: SPOUSE Ila Winkler PharmD severe interactions reported to [facility] 12/2607/30/18 The medications are managed by this patient by: PATIENT Elsa Gallagher PharmD Problem List As Of Date 12/09/2024 Noted Resolved Mixed hyperlipidemia [E78.2] Acquired hypothyroidism [E03.9] Unspecified hemorrhoids without mention of comp* 10/20/2010 Hiatal hernia [K44.9] 09/15/2024 Diverticulosis of colon (without mention of hem* 10/20/2010 PEPTIC ULCER NOS [K27.9] 05/30/2007 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 [K22.70] 05/30/2007 Esophagitis, unspecified [K20.90] 08/29/2007 10/20/2010 Asthma with chronic obstructive pulmonary disea*07/16/2014 Escobedo's esopha (more content not included)... [facility] 12-08-2024 Note [facility] 12-07-2024 Note [facility] 12-07-2024 Note [facility] 12-07-2024 Note [facility] 12-06-2024 Note [facility] 12-06-2024 Note [facility] 12-05-2024 Note [facility] 12-05-2024 Note HNO ID: [id number] Author: JAMAICA MAGANA RN Service: Nursing Author Type: Registered Nurse Type: Nursing Progress Note Filed: 12/05/2024 06:52 Note Text: Other: Patient arrived to room 413, oriented to room and call light, no complaints [facility] 12-05-2024 Note HNO ID: [id number] Author: SELGERT, DELMIS, RN Service: Nursing Author Type: Registered Nurse Type: Nursing Progress Note Filed: 12/05/2024 06:19 Note Text: Other: 0615 Pt's spouse, Aury notified by phone number provided of pt's transfer. [facility] 12-04-2024 Note [facility] 12-04-2024 Note [facility] 12-03-2024 Note [facility] 12-02-2024 Note [facility] 12-01-2024 Note [facility] 12-01-2024 Note [facility] 12-01-2024 Note [facility] 11-30-2024 Discharge summary [facility] 11-30-2024 Radiology Diagnostic study note [facility] Imaging Services [address] [place], [place] [address] Abdomen/Pelvis WITH Contrast MR#: [id number] Acct: [id number] Name: JAYDEN CRAIG Rep #: [id number] : 1940 M 83 From: Shane Charlton MD PCP: Dr. Eloisa Espinal MD Status: BARBRA G ER Study:Abdomen/Pelvis WITH Contrast Date of Ex am: 11/30/24 Exam# [id number] Ordering Dr: Barbra Rivera DO PROCEDURE: ABDOMEN/PELVIS WITH CONTRAST 11/30/2024 REASON FOR EXAM: ABDOMINAL PAIN TECHNIQUE: Procedure Code: CTABDPELW Modality: CT Procedure: ABDOMEN/PELVIS WITH CONTRAST Coronal and Sagittal reconstruction series were provided. CONTRAST: Isovue 370 VOLUME: 74 mL One or more dose reduction techniques were used (e.g., Automated exposure control, adjustment of the mA and/or kV according to patient size, use of iterative reconstruction technique. RADIATION DOSE SUMMARY: CTDlvol: 21.47 mGy DLP: 1404.21 mGycm COMPARISON: None FINDINGS: Lung bases: Scattered atelectasis and tiny right pleural effusion. Sternal wires. Coronary artery calcifications and/or stents. Liver: Unremarkable Gallbladder: Cholecystectomy Spleen: Normal Pancreas: Unremarkable Adrenals: No adrenal mass Kidneys: No hydronephrosis. 1.4 cm cortical hypodensity in the right kidney series 2, image 62 likely represents a cyst. A 2.8 cm cortical cyst in the left kidney series 2, image 50. Bladder: Unremarkable Reproductive Organs: Mild prostatomegaly Bowel: Postsurgical changes at the cecum. There is no bowel obstruction. Hiatal hernia. Appendix: Not definitely visualized. Lymph nodes: No suspicious lymph node enlargement. Vasculature: Tortuous and ectatic abdominal aorta. Calcified atherosclerotic changes in aortoiliac arteries. Peritoneum / Retroperitoneum: There is no ascites. Bones: Advanced degenerative changes in the spine. Laminectomy changes at L3 through L5. There is a 4.2 by 10.0 by 9.0 cm heterogeneous soft tissue mass in the subcutaneous anterior abdominal wall, supraumbilical. There is associated small air pockets. No extension into the abdominal cavity. Surrounding mild fat stranding. CT/Abdomen/Pelvis WITH Contrast IMPRESSION: 1. Midline anterior abdominal wall soft tissue with associated air, presumably postsurgical hematoma. Developing abscess or underlying soft tissue mass would be difficult to exclude. Close clinical follow-up and follow-up imaging as needed. 2. There is no evidence of acute process in the abdominal cavity or pelvic cavity. Reading Location: [id number] CC: Dr. Eloisa Espinal MD; Dr. Susannah Rivera DO ~ Data Collection Associate: Signed [facility] 11-30-2024 Discharge summary Note Date/Time November 30, 2024 5:09pm [facility] Medical Records Department [address] [place] [id number] Emergency Department Summary 11/30/24 MR#: [id number] Acct: [id number] Name: JAYDEN CRAIG Rep #:[id number] : 1940 83 From: Susannah Rivera DO PCP: Dr. Eloisa Espinal MD Status:DE P ER Location: ED HPI HPI - GI History of Present Illness Chief Complaint: Abd Pain Detail of Chief Complaint: Abdominal pain Informant: patient Narrative Narrative: Patient presents with abdominal pain for several weeks. He states that he had abdominal surgery at [facility] by Dr. López 5 days ago. Patient has nothad a bowel movement in 6 days. He took 2 days of oxycodone for pain. He said decreased appetite. Urine is more dark than usual although he denies dysuria. He has not had a fever. Currently on aspirin and Plavix. Patient's had some mild nausea but no vomiting. 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 Acquired hypothyroidism Abdominal wall hernia Atherosclerosis of coronary artery of [place] heart without angina pectoris Hiatal hernia Hypothyroidism Escobedo's esophagus GERD (gastroesophageal reflux disease) DDD (degenerative disc disease), lumbar Home Medications ?Medication ?Instructions ?Recorded ?Last Taken ?Type acetaminophen 325 mg tablet 650 mg PO Q4H PRN Pain Or Fever 12/09/18 Unknown History aspirin 81 mg tablet,delayed 81 mg PO DAILY 12/09/18 0 08/06/24 History release (Adult Aspirin Regimen) magnesium oxide 400 mg PO DAILY 12/09/18 History multivitamin 1 tab PO QAM 12/09/18 Unknow n History pantoprazole 40 mg tablet,delayed 40 mg PO BID 9 07/03/24 History release simvastatin 80 mg tablet 80 mg PO QHS cholesterol Unknown History fluticasone propionate 50 2 ea intranasal BID stuffine ss 09/17/21 07/03/24 History mcg/actuation nasal spray,suspension ibuprofen 200 mg tablet 200 mg PO Q6H PRN pain #30 t abs 01/01/23 Unknown Rx levothyroxine 175 mcg tablet 175 mcg PO DAILY disorder of 06/30/23 08/06/24 History thyroid gland tamsulosin 0.4 mg capsule 0.4 mg PO QHS 06/30/23 Unkno wn History albuterol sulfate 90 mcg/actuation 2 puff inhalation Q 4-6H PRN 04/15/24 Unknown History aerosol inhaler shortness of breath or wheez ing clopidogrel 75 mg tablet 75 mg PO DAILY #30 tabs 06/1308/06/24 Rx fluticasone furoate 200 inhalation QDAY 11/11/24 Unk nown History mcg-vilanterol 25 mcg/dose inhalation powder (Breo Ellipta) metoprolol tartrate 50 mg tablet 50 mg PO BID #180 tab s 11/11/24 Unknown Rx Allergy/AdvReac Type Severity Reaction Status Date / Time cefdinir (From Omnicef) Allergy Intermediate Diarrhea Verified 11/30/24 10:33 atorvastatin AdvReac Intermediate myalgias Verified 11/30/24 10:33 azithromycin (From Zithromax) AdvReac Nausea/Vom/ Verified 11/30/24 10:33 Diarrhea Family History Mother Emphysema of lung Father Emphysema of lung Surgical History History of ventral hernia repair Hx laparoscopic cholecystectomy History of repair of hiatal hernia History of umbilical hernia repair 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) History of back surgery (~04/25/17) Social History Smoking Status: Former smoker quit date: 02/12/81 pack-years: 13 Tobacco: How many years used: 27 Electronic Cigarette Use: not used how long ago did patient quit smokin years ago alcohol intake: former substance use type: does not use ROS ROS ED Review of Systems ROS Unobtainable: other Constitutional Constitutional ED: Reports lethargy; Denies chills, fever(s), sweats or weight loss Eyes Eyes: Denies blurry vision, change in vision or diplopia ENT ENT ED: Denies rhinorrhea or sore throat Cardiovascular Cardiovascular: Denies chest pain, orthopnea or racing heartbeat Respiratory/Chest Respiratory/Chest: Denies cough, dyspnea, dyspnea on exertion, orthopnea or sputum Gastrointestinal Gastrointestinal: Reports abdominal pain and nausea; Denies diarrhea or vomiting Genitourinary Genitourinary ED: Denies dysuria, hematuria or urinary frequency Musculoskeletal Musculoskeletal: Denies arthralgias, back pain, myalgias or neck pain Integumentary Denies abscess, Abrasions or rash Neurologic Neurologic: Denies headache(s) or weakness Psychiatric Psychiatric: Denies anxiety, depression or suicidal thoughts Endocrine Endocrinology: Denies polydipsia, polyphagia or polyuria Hematologic/Lymphatic Hematologic/Lymphatic: Denies easy bleeding, easy bruising or lymphadenopathy Allergic/Immunologic Allergic/Immunologic ED: Denies mouth swelling, tongue swelling or urticaria EXAM Physical Exam Const Vital Signs: 11/30/24 10:27 11/30/24 10:31 11/30/24 11:31 Temperature 98.5 F 98.5 F 98 F Temperature Source Oral Oral Oral Pulse Rate 90 90 86 Respiratory Rate 22 H 19 H 18 Blood Pressure 107/63 107/63 110/64 Blood Pressure Mean 77 77 79 Pulse Ox 99 97 98 Oxygen Delivery Method Room Air Room Air Room Air 11/30/24 12:00 11/30/24 12:00 11/30/24 13:00 Temperature 98.2 F 98 F Temperature Source Oral Oral Pulse Rate 84 84 82 Respiratory Rate 16 16 16 Blood Pressure 118/62 118/62 134/72 H Blood Pressure Mean 80 80 92 Pulse Ox 98 98 98 Oxygen Delivery Method Room Air Room Air 11/30/24 14:00 Temperature 98.3 F Temperature Source Oral Pulse Rate 86 Respiratory Rate 16 Blood Pressure 128/81 H Blood Pressure Mean 96 Pulse Ox 100 Oxygen Delivery Method Room Air Positive well nourished and well developed General Appearance ED: well developed and NAD HEENT Reports TM's clear and moist mucous membranes normocephalic and atraumatic; Negative for trauma or tenderness Tympanic Membrane ED: Yes TM's clear Eyes PERRL and EOMs intact bilaterally General Eye ED: Negative for pale conjunctiva or scleral icterus Neck no lymphadenopathy, supple and no JVD General: Negative for tenderness Chest Wall inspection of chest normal and palpation of chest normal Chest: Negative for tenderness Resp normal respiratory effort and clear to auscultation bilaterally Effort and Inspection: Negative for respiratory distress or pain with movement Auscultation: Negative for rhonchi, wheezes or diminished lung sounds Cardio regular rate, regular rhythm, S1 normal heart sound, S2 normal heart sound and no murmurs Peripheral Pulses: pulses 2+ throughout GI normal to inspection, nondistended, normoactive bowel sounds, soft to palpation,non-distended and no masses; Negative for non-tender GI Narrative: Patient with central abdomen incision with Steri-Strips over its. Incision justlateral and right of the umbilicus. Diffuse surrounding ecchymosis and bruisingto the abdominal wall down into the pelvis. Diffuse tenderness on exam. No rebound or rigidity. Back/Spine no CVA tenderness and no thoracic nor lumbar tenderness Extremity normal to inspection General Extremety ED: Negative for edema General Extremity: Negative for edema Neuro oriented x3, CN's II-XII intact bilaterally, no sensory deficits noted and gait normal Sensorium / Orientation: awake, alert, oriented to person, oriented to place andoriented to time Motor Exam: strength 5/5 throughout and strength abnormal Psych mental status grossly normal Skin no rashes or lesions noted and no wounds MDM MDM MDM Narrative Medical decision making narrative: Patient presents with postop abdominal pain. Had hernia repair 5 days ago at [facility]. Continues to complain of right sided abdominal pain. Hedenies fever. Clinically looks well. CBC with differential obtained showed an elevated white blood cell count of 37,000. Hemoglobin 6.9 and platelet count of154. Chemistries unremarkable. Lactate was normal at 1.2. LFTs were normal and lipase was slightly elevated at 89. Urinalysis without signs of infection. Patient had a CT scan of the abdomen pelvis with IV and p.o. contrast that showed midline anterior abdominal wall soft tissue with associated air presumably postsurgical hematoma developing abscess or underlying soft tissue mass would be difficult to exclude. There is no evidence of acute process in the abdominal cavity or pelvic cavity. Given patient's elevated white blood cell count and findings on CT concern for postop abscess. Will discuss case with the patient's surgeon of record if available as I feel he will need repeat evaluation. Will start patient on Zosyn IV. Discussed case with Dr. Regina Mathews [facility] who accepted transfer of patient to their facility. Will discuss with her transfer line and will arrange transportation back to their facility. Lab Data Attestation: I reviewed the patient's lab results. Labs: Laboratory Results - last 24 hr 11/30/24 11/30/24 11/30/24 10:30 12:13 13:25 WBC 37.0 H* RBC 2.91 L Hgb 6.9 L Hct 21.6 L MCV 74.2 L MCH 23.7 L MCHC 31.9 L RDW Std Deviation 47.1 H RDW Coeff of Abena 18.1 H Plt Count 154 MPV 12.1 H Immature Gran % (Auto) 2.900 H Neut % (Auto) 67.2 Lymph % (Auto) 1.1 L Story % (Auto) 28.5 H Eos % (Auto) 0.2 Baso % (Auto) 0.1 Absolute Neuts (auto) 24.8 H Absolute Lymphs (auto) 0.41 L Nucleated RBC % 0.1 Differential Comment COMMENT Diff Path Review May foll Sodium 123 L Potassium 4.2 Chloride 88 L Carbon Dioxide 24.4 Anion Gap 11 BUN 16 Creatinine 0.76 Estim Creat Clear Calc 75.72 Est GFR (MDRD) Non-Af 90 BUN/Creatinine Ratio 21.0 H Glucose 118 H Lactic Acid 1.2 Calcium 8.4 Total Bilirubin 0.82 AST 36 ALT 20 Alkaline Phosphatase 75 Total Protein 6.4 Albumin 3.8 Globulin 2.6 Albumin/Globulin Ratio 1.5 Lipase 89 H Urine Color Yellow Urine Clarity Clear Urine pH 6.5 Ur Specific Temple 1.020 Urine Protein 30 H Urine Glucose (UA) Normal Urine Ketones 5 H Urine Occult Blood 10 H Urine Nitrite Negative Urine Bilirubin Negative Urine Urobilinogen 1 H Ur Leukocyte Esterase 25 H Urine RBC 0-5 SEEN Urine WBC 5-10 SEEN Ur Squamous Epith Cells 0-5 SEEN Urine Bacteria 3+ Urine Mucus 2+ Radiography Diagnostic Testing: Clinical Impression(s) from Imaging Studies Abdomen/Pelvis CT 11/30/24 11:44 IMPRESSION: 1. Midline anterior abdominal wall soft tissue with associated air, presumably postsurgical hematoma. Developing abscess or underlying soft tissue mass would be difficult to exclude. Close clinical follow-up and follow-up imaging as needed. 2. There is no evidence of acute process in the abdominal cavity or pelvic cavity. Reading Location: [id number] Discharge Plan Triage Chief Complaint: Abd Pain ED Provider: Susannah Rivera Dx/Rx/DC Orders Clinical Impression: Abdominal pain, Post-operative infection, Anemia, Acute hyponatremia Prescriptions: No Action aspirin [Adult Aspirin Regimen] 81 mg tablet,delayed release (DR/EC) 81 mg PO DAILY magnesium oxide 400 mg magnesium capsule 400 mg PO DAILY acetaminophen 325 mg tablet 650 mg PO Q4H PRN (Reason: Pain Or Fever) multivitamin Tablet 1 tab PO QAM simvastatin 80 mg tablet 80 mg PO QHS albuterol sulfate 90 mcg/actuation HFA aerosol inhaler 2 puff inhalation Q4-6H PRN (Reason: shortness of breath or wheezing) fluticasone furoate-vilanterol [Breo Ellipta] 200-25 mcg/dose blister with device inhalation QDAY pantoprazole 40 mg tablet,delayed release (DR/EC) 40 mg PO BID fluticasone propionate 50 mcg/actuation spray,suspension 2 ea INTRANASAL BID Patient Comments: USE 2 SPRAYS IN EACH NOSTRIL ONCE DAILY. RINSE MOUTH AFTER USE. ibuprofen 200 mg tablet 200 mg PO Q6H PRN (Reason: pain) Qty: 30 0RF levothyroxine 175 mcg tablet 175 mcg PO DAILY tamsulosin 0.4 mg capsule 0.4 mg PO QHS clopidogrel 75 mg Tablet 75 mg PO DAILY Qty: 30 6RF metoprolol tartrate 50 mg tablet 50 mg PO BID Qty: 180 3RF Primary Care Provider: Eloisa Espinal Referrals: Eloisa Espinal MD [Primary Care Provider, [facility]] Print Language: Kyrgyz What to do if you have Problems For any increased pain, shortness of breath, bleeding, nausea or vomiting, chestpain, or any unexpected problems, contact your Primary Care Provider. Call [facility] ([phone]) or report to the closest Emergency Room. Call 911 if necessary. 11/30/24 1704 <Electronically signed by Susannah Rivera DO> Cosigner Signature (if applicable): CC: Dr. Eloisa Espinal MD ~ Signed [facility] Work Phone: 1(366) 399-165110-14-2025 NoteHNO ID: [id number] Author: RAMA MONTENEGRO RN Service: Nursing Author Type: Registered Nurse Type: Nursing Progress Note Filed: 11/25/2024 12:27 Note Text: Other: pt voided 100 cc in urinal. Feeling dizzy when getting dressed.[facility] [id number] NoteProm[facility] Fostoria Community [id number] NoteHNO ID: [id number] Author: ELOISA ESPINAL MD Service: ? Author Type: Physician Type: Progress Notes Filed: 11/20/2024 17:17 Note Text: Jayden Craig is a 83 year old male here for a Medicare wellness visit. Medicare Health Risk Assessment General Health Good Exercise: Minutes/Day 0 min Exercise: Days/Week 0 days Alcohol: Daily Use Monthly or less Alcohol: Drinks/Day 1 or 2 Alcohol: 6 or more drinks Never Feel off balance Decline Concerns: Teeth/Dentures No Concerns: Sexual function Decline Troubled by feelings Frequency: Eating healthy diet Nearly every day ADLs requiring help None of the above Safety precautions in home/vehicle Decline Smoke, vape, chews tobacco No Difficulty hearing Yes, I wear a hearing aid Difficulty seeing No Current Providers Specialists: I have reviewed specialist-related care of the patient in the medical record. Current care team: Patient Care Team: Eloisa Espinal MD as PCP - General Buddy Lynn MD as Consulting (General Surgery) Eloisa Espinal MD as Home Care Provider (Family Medicine) Mike Lee APRN.CNP as Quality Assurance Practice Manager (Family Medicine) Outside specialists seen: Dr. Villa, Dr. Bynum, [facility] cardio, Medical/Family history review Reviewed and updated problem list, medical/surgical/family/social history, medications, and allergies. Opioid use review Opioid Medications (last 90 days) No data to display Anxiety/Depression screening PHQ-2 Score: 0 (Lower risk for depression) Recommendation: no further intervention at this time Cognitive screening Mini Cog Score: 1 Cognitive screening reviewed and Recommended referral for further evaluation (score 0-2). Functional Observation Was the patient's Timed Up AND Go test unsteady or >= 12 seconds? No Advance Care Planning Surrogate decision maker and/or advance care plan documented Measurements BP 120/68 Pulse 75 Resp 16 Wt 80.9 kg (178 lb 5.6 oz) SpO2 98% BMI 27.12 kg/m? Vision Screening: Follows with optometry/ophthalmology Assessment/Plan Medicare annual wellness visit, initial (Z00.00) - Counseled on healthy diet and regular exercise - Fall avoidance information provided - Personalized prevention plan provided - Discussed need for and benefit of weight loss. BMI 27.12 kg/(m2) Chief Complaint Patient presents with: Medicare Wellness Exam Immunizations: Flu vaccination HPI Jayden Craig is a 83 year old male who presents here today for Medicare Annual Visit. No bowel, Gi, or urinary issues. Taking Flomax 0.4 mg daily. GERD: Taking Protonix 40 mg 1 pill BID. HTN: Follows with Cardio. Taking Lopressor 50 mg 1 pill BID. Thyroid: Taking levoxyl 175 mcg daily. Lipid/CAD: taking Zocor 80 mg daily, ASA 325 mg daily and Plavix [address] Bynum is going to be doing surgery on 11/25/24 for abdominal wall incisional hernia. His does mention some memory impairment. His confirms this, stating that he forgets many things and often relies on her for reminders. She also mentions that he has hearing difficulties, which she believes may contribute to his memory issues. He is currently taking Prevagen for memory support, but his does not believe it is effective. 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 He still drives locally but his does most of the driving, especially for longer distances. He stays connected with friends and former colleagues, meeting with extension agents and ex[employer] members once a month. Past medical history, appointments, medications, allergies reviewed. 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 CAD (coronary artery disease) CABG and stent Constipation Essential hypertension Fatigue, unspecified type H/O ventral hernia repair 04/03/2023 Hiatal hernia 1989 History of coronary artery bypass graft 07/24/2018 VASQUES in situ mammary end to side mid LAD, Vein graft ascending aorta end to side RCA, Vein graft ascending aorta end to side obtuse marginal 1 Hyperlipidemia Peptic ulcer, unspecified site, unspecified as acute or chronic, without mention of hemorrhage, perforation, or obstruction 2004 Unspecified hypothyroidism 1989 Previous Surgical History PAST SURGICAL HISTORY Procedure Laterality Date ANES HRNA RPR UPR ABD LMBRANDVENTRAL HERNIAANDDEHISC 04/03/[address] Regina Oswald APPENDECTOMY COLONOSCOPY FLX DX W/COLLJ SPEC WHEN PFRMD 06/28/2004 Colonoscopy COLONOSCOPY FLX DX W/COLLJ SPEC WHEN PFRMD 08/06/2015 Colonoscopy CORONARY ARTERY BYPASS GRAFT HX 07/24/2018 VASQUES in situ mammary end to side mid LAD, Vein graft ascending aorta end to side RCA, Vein graft ascending aorta end to side obtuse marginal 1. (more content not included)...[facility]09-30-2025 Evaluation note* Diagnosis Onset Date Resolution Status Admit Date CAD (coronary artery disease) chroni c November 11, 2024 2:00pm COPD (chronic obstructive pulmonary disease) chronic October 2:00pm Dyslipidemia chronic November 112024 2:00pm Hypertension chronic November 112024 2:00pm History of atrial fibrillation less than 8 weeks after coronary artery bypa resolved November 11, 2024 2:00pm Preoperative cardiovascular examination noneactive November 11, 2024 2:00pm Abdominal abscess acute Novembe r 2024 5:45pm Abdominal hematoma acute Novemb er 2024 5:45pm Acute blood loss anemia acute N ovember 2024 5:45pm Acute respiratory failure with hypoxia acute December 13 5:45pm Allergic rhinitis acute Novembe r 2024 5:45pm Atrial fibrillation acute jt 2024 5:45pm BPH (benign prostatic hyperplasia) acute December 13 5:45pm Debility acute December 13, 2024 5:45pm Hypothyroidism acute December 132024 5:45pm Peptic ulcer acute December 5:45pm Sepsis acute December 13, 2024 5:45pm CAD (coronary artery disease) chroni c December 13, 2024 5:45pm COPD exacerbation chronic Novembe r 2024 5:45pm Hyperlipidemia chronic December 132024 5:45pm [facility] Work Phone: 1(460) 646-300609-30-2025 Progress [facility] [address] [place] [address] OFFICE VISIT Date of Service: 11/11/24 MR#: [id number] Acct: [id number] Name: JAYDEN CRAIG Rep #: [id number] : 1940 Provider: Dr. Liang Daly MD Age/Sex: 83/M Location: [facility] Status: Signed HPI HPI History of Present Illness Details: This gentleman with history of coronary artery disease status post CABG, status post drug-eluting stent to the proximal RCA, is here for follow-up visit. Denies any angina. He has COPD and has stableshortness of breath with exertion. Denies orthopnea or PND. No ankle edema. Patient is scheduled to undergo surgery for abdominal hernia. 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: No Accompanied by: Is patient in pain?: No Allergies cefdinir (From Omnicef) Allergy (Intermediate, Verified 11/11/24 14:35) Diarrhea atorvastatin Adverse Reaction (Intermediate, Verified 11/11/24 14:35) myalgias azithromycin (From Zithromax) Adverse Reaction (Verified 11/11/24 14:35) Nausea/Vom/Diarrhea Medications ?Medication ?Instructions ?Recorded ?Confirmed ?Type acetaminophen 325 mg tablet 650 mg PO Q4H PRN Pain Or Fever 12/09/18 11/11/24 History aspirin 81 mg tablet,delayed 81 mg PO DAILY 12/09/18 0 11/11/24 History release (Adult Aspirin Regimen) magnesium oxide 400 mg PO DAILY 12/09/18 History multivitamin 1 tab PO QAM 12/09/18 History pantoprazole 40 mg tablet,delayed 40 mg PO BID 9 11/11/24 History release simvastatin 80 mg tablet 80 mg PO QHS cholesterol 11/11/24 History fluticasone propionate 50 2 ea intranasal BID stuffine ss 09/17/21 11/11/24 History mcg/actuation nasal spray,suspension ibuprofen 200 mg tablet 200 mg PO Q6H PRN pain #30 t abs 01/01/23 11/11/24 Rx levothyroxine 175 mcg tablet 175 mcg PO DAILY disorder of 06/30/23 11/11/24 History thyroid gland metoprolol tartrate 25 mg tablet 25 mg PO BID 06/30/23 11/11/24 History tamsulosin 0.4 mg capsule 0.4 mg PO QHS 06/30/2311/11 History albuterol sulfate 90 mcg/actuation 2 puff inhalation Q 4-6H PRN 04/15/24 11/11/24 History aerosol inhaler shortness of breath or wheez ing clopidogrel 75 mg tablet 75 mg PO DAILY #30 tabs 06/1311/11/24 Rx fluticasone furoate 200 inhalation QDAY 11/11/24 History mcg-vilanterol 25 mcg/dose inhalation powder (Breo Ellipta) Ejection fraction %: 65 Have you fallen in the past year?: Yes (missed step, missed balance) [facility] Medical History History of left heart catheterization Paroxysmal atrial fibrillation Mild intermittent asthma without complication Shortness of breath Peptic ulcer, site unspecified, unspecified as acute or chronic, without hemorrhage or perforation Hyperlipidemia Chronic fatigue, unspecified Essential hypertension Constipation CAD (coronary artery disease) 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 Acquired hypothyroidism Abdominal wall hernia Atherosclerosis of coronary artery of [place] heart without angina pectoris Hiatal hernia Hypothyroidism Escobedo's esophagus GERD (gastroesophageal reflux disease) DDD (degenerative disc disease), lumbar Surgical History History of ventral hernia repair Hx laparoscopic cholecystectomy History of repair of hiatal hernia History of umbilical hernia repair 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) History of back surgery (~04/25/17) Family History Mother Emphysema of lung Father Emphysema of lung Social History Smoking Status: Former smoker quit date: 02/12/81 pack-years: 13 Tobacco: How many years used: 27 Electronic Cigarette Use: not used how long ago did patient quit smokin years ago alcohol intake: former substance use type: does not use ROS Const Const: Negative for fatigue or weakness Eyes Eyes: Negative for change in vision ENT ENT: Negative for dizziness or balance problems Cardio Chest Pain: No Palpitations: No Edema: None Muscle aches with walking: None Resp Respiratory: Positive for SOB with activity; Negative for SOB at rest or SOB orthopnea\SOB lying down GI GI: Negative nausea or heartburn Musc Musc: Negative for balance problems Neuro Neuro: Negative for dizziness, lightheadedness, near syncope, syncope or weakness Endo Endo: Negative for fatigue Cardiology Exam Const Appearance: comfortable and no acute distress Nutritional Appearance: well nourished Neck Neck: no JVD Carotids: Negative bruit Chest Auscultation: Bilateral: Diminished Lung Sounds Cardio Rate: regular rate Rhythm: regular rhythm Heart sounds: S1 normal and S2 normal Neuro General: patient alert, patient awake and patient oriented x3 Extremities Lower Extremity Edema: None: Bilateral Supplemental Info Supplemental Information Labs: HDL Cholesterol, (40-) 60 mg/dL Cholesterol, (<=200) 122 mg/dL Triglycerides, (-199) 89 mg/dL Diagnostics: Electrocardiogram Echocardiogram Stress Test Stress Test Nuclear Medicine Cardiac Catheterization Chest X-Ray Abdomen/Pelvis CT Venous Doppler Study Past Visits: Cardiology Visit Today Assessment and Plan Assessment and Plan (1) CAD (coronary artery disease): Status: Chronic Plan: History of CABG. patent VASQUES to LAD. Patent SVG graft to right posterior lateral ventricular branch. Drug-eluting stent to the proximal RCA at this lastMay. Failed attempted percutaneous interventionof the obtuse marginal. Continue aspirin. Clopidogrel. Risk factor modification. (2) Hypertension: Status: Chronic Plan: Metoprolol. Increase to 50 mg twice daily. (3) Dyslipidemia: Status: Chronic Plan: Simvastatin. LDL at goal. (4) COPD (chronic obstructive pulmonary disease): Status: Chronic Plan: As per PCP. (5) History of atrial fibrillation less than 8 weeks after coronary artery bypass graft: Status: Resolved Plan: History of atrial fibrillation in the perioperative. After CABG. Sinus rhythm since. (6) Preoperative cardiovascular examination: Plan: In my opinion, patient is an acceptable risk for proposed hernia surgery. May discontinue clopidogrel 3 to 4 days prior to the surgery if needed and resume shortly thereafter whenever okay with surgeon. Avoid major hemodynamic swings during and after anesthesia. Please do not stop aspirin unless absolutely necessary. Plan Details Follow Up: 6 Months Coding Level of Care Code Off vis,est,level 4 Diagnoses CAD (coronary artery disease) I25.10 Hypertension I10 Dyslipidemia E78.5 COPD (chronic obstructive pulmonary disease) J44.9 History of atrial fibrillation less than 8 weeks after coronary artery bypass graft Z86.79 Preoperative cardiovascular examination Z01.810 Coding Level of Care Code Off vis,est,level 4 Diagnoses CAD (coronary artery disease) I25.10 Hypertension I10 Dyslipidemia E78.5 COPD (chronic obstructive pulmonary disease) J44.9 History of atrial fibrillation less than 8 weeks after coronary artery bypass graft Z86.79 Preoperative cardiovascular examination Z01.810 Clinical Quality Measures Falls Risk Screening/Assistive Devices Have you fallen in the past year?: Yes (missed step, missed balance) Cardiac Ejection fraction %: 65 11/11/24 1447 MD> Date _ Stacey Addy MD Cosigner Signature: Date (if applicable) CC: Dr. Eloisa Espinal MD ~ [facility]09-30-2025 Progress note Author Stacey Daly [facility] Note Date/Time November 11, 2024 2:47pm [facility] [address] [place] [address] OFFICE VISIT Date of Service: 11/11/24 MR#: [id number] Acct: [id number] Name: JAYDEN CRAIG Rep #: [id number] : 1940 Provider: Dr. Liang Daly MD Age/Sex: 83/M Location: [facility] Status: Signed HPI HPI History of Present Illness Details: This gentleman with history of coronary artery disease status post CABG, status post drug-eluting stent to the proximal RCA, is here for follow-up visit. Denies any angina. He has COPD and has stable shortness of breath with exertion. Denies orthopnea or PND. No ankle edema. Patient is scheduled to undergo surgery for abdominal hernia. 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: No Accompanied by: Is patient in pain?: No Allergies cefdinir (From Omnicef) Allergy (Intermediate, Verified 11/11/24 14:35) Diarrhea atorvastatin Adverse Reaction (Intermediate, Verified 11/11/24 14:35) myalgias azithromycin (From Zithromax) Adverse Reaction (Verified 11/11/24 14:35) Nausea/Vom/Diarrhea Medications ?Medication ?Instructions ?Recorded ?Confirmed ?Type acetaminophen 325 mg tablet 650 mg PO Q4H PRN Pain Or Fever 12/09/18 11/11/24 History aspirin 81 mg tablet,delayed 81 mg PO DAILY 12/09/18 0 11/11/24 History release (Adult Aspirin Regimen) magnesium oxide 400 mg PO DAILY 12/09/18 History multivitamin 1 tab PO QAM 12/09/18 History pantoprazole 40 mg tablet,delayed 40 mg PO BID 9 11/11/24 History release simvastatin 80 mg tablet 80 mg PO QHS cholesterol 11/11/24 History fluticasone propionate 50 2 ea intranasal BID stuffine ss 09/17/21 11/11/24 History mcg/actuation nasal spray,suspension ibuprofen 200 mg tablet 200 mg PO Q6H PRN pain #30 t abs 01/01/23 11/11/24 Rx levothyroxine 175 mcg tablet 175 mcg PO DAILY disorder of 06/30/23 11/11/24 History thyroid gland metoprolol tartrate 25 mg tablet 25 mg PO BID 06/30/23 11/11/24 History tamsulosin 0.4 mg capsule 0.4 mg PO QHS 06/30/2311/11 History albuterol sulfate 90 mcg/actuation 2 puff inhalation Q 4-6H PRN 04/15/24 11/11/24 History aerosol inhaler shortness of breath or wheez ing clopidogrel 75 mg tablet 75 mg PO DAILY #30 tabs 06/1311/11/24 Rx fluticasone furoate 200 inhalation QDAY 11/11/24 History mcg-vilanterol 25 mcg/dose inhalation powder (Breo Ellipta) Ejection fraction %: 65 Have you fallen in the past year?: Yes (missed step, missed balance) [facility] Medical History History of left heart catheterization Paroxysmal atrial fibrillation Mild intermittent asthma without complication Shortness of breath Peptic ulcer, site unspecified, unspecified as acute or chronic, without hemorrhage or perforation Hyperlipidemia Chronic fatigue, unspecified Essential hypertension Constipation CAD (coronary artery disease) 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 Acquired hypothyroidism Abdominal wall hernia Atherosclerosis of coronary artery of [place] heart without angina pectoris Hiatal hernia Hypothyroidism Escobedo's esophagus GERD (gastroesophageal reflux disease) DDD (degenerative disc disease), lumbar Surgical History History of ventral hernia repair Hx laparoscopic cholecystectomy History of repair of hiatal hernia History of umbilical hernia repair 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) History of back surgery (~04/25/17) Family History Mother Emphysema of lung Father Emphysema of lung Social History Smoking Status: Former smoker quit date: 02/12/81 pack-years: 13 Tobacco: How many years used: 27 Electronic Cigarette Use: not used how long ago did patient quit smokin years ago alcohol intake: former substance use type: does not use ROS Const Const: Negative for fatigue or weakness Eyes Eyes: Negative for change in vision ENT ENT: Negative for dizziness or balance problems Cardio Chest Pain: No Palpitations: No Edema: None Muscle aches with walking: None Resp Respiratory: Positive for SOB with activity; Negative for SOB at rest or SOB orthopnea\SOB lying down GI GI: Negative nausea or heartburn Musc Musc: Negative for balance problems Neuro Neuro: Negative for dizziness, lightheadedness, near syncope, syncope or weakness Endo Endo: Negative for fatigue Cardiology Exam Const Appearance: comfortable and no acute distress Nutritional Appearance: well nourished Neck Neck: no JVD Carotids: Negative bruit Chest Auscultation: Bilateral: Diminished Lung Sounds Cardio Rate: regular rate Rhythm: regular rhythm Heart sounds: S1 normal and S2 normal Neuro General: patient alert, patient awake and patient oriented x3 Extremities Lower Extremity Edema: None: Bilateral Supplemental Info Supplemental Information Labs: HDL Cholesterol, (40-) 60 mg/dL Cholesterol, (<=200) 122 mg/dL Triglycerides, (-199) 89 mg/dL Diagnostics: Electrocardiogram Echocardiogram Stress Test Stress Test Nuclear Medicine Cardiac Catheterization Chest X-Ray Abdomen/Pelvis CT Venous Doppler Study Past Visits: Cardiology Visit Today Assessment and Plan Assessment and Plan (1) CAD (coronary artery disease): Status: Chronic Plan: History of CABG. patent VASQUES to LAD. Patent SVG graft to right posterior lateral ventricular branch. Drug-eluting stent to the proximal RCA at this lastMay. Failed attempted percutaneous intervention of the obtuse marginal. Continue aspirin. Clopidogrel. Risk factor modification. (2) Hypertension: Status: Chronic Plan: Metoprolol. Increase to 50 mg twice daily. (3) Dyslipidemia: Status: Chronic Plan: Simvastatin. LDL at goal. (4) COPD (chronic obstructive pulmonary disease): Status: Chronic Plan: As per PCP. (5) History of atrial fibrillation less than 8 weeks after coronary artery bypass graft: Status: Resolved Plan: History of atrial fibrillation in the perioperative. After CABG. Sinus rhythm since. (6) Preoperative cardiovascular examination: Plan: In my opinion, patient is an acceptable risk for proposed hernia surgery. May discontinue clopidogrel 3 to 4 days prior to the surgery if needed and resume shortly thereafter whenever okay with surgeon. Avoid major hemodynamic swings during and after anesthesia. Please do not stop aspirin unless absolutely necessary. Plan Details Follow Up: 6 Months Coding Level of Care Code Off vis,est,level 4 Diagnoses CAD (coronary artery disease) I25.10 Hypertension I10 Dyslipidemia E78.5 COPD (chronic obstructive pulmonary disease) J44.9 History of atrial fibrillation less than 8 weeks after coronary artery bypass graft Z86.79 Preoperative cardiovascular examination Z01.810 Coding Level of Care Code Off vis,est,level 4 Diagnoses CAD (coronary artery disease) I25.10 Hypertension I10 Dyslipidemia E78.5 COPD (chronic obstructive pulmonary disease) J44.9 History of atrial fibrillation less than 8 weeks after coronary artery bypass graft Z86.79 Preoperative cardiovascular examination Z01.810 Clinical Quality Measures Falls Risk Screening/Assistive Devices Have you fallen in the past year?: Yes (missed step, missed balance) Cardiac Ejection fraction %: 65 11/11/24 1447 <Electronically signed by Stacey Daly MD> Date _ Stacey Daly MD Cosigner Signature: Date (if applicable) CC: Dr. Eloisa Espinal MD ~ [facility] Work Phone: [phone]) 249-366208-22-2025 NoteHNO ID: [id number] Author: DK BYNUM MD Service: ? Author Type: Physician Type: Progress Notes Filed: 10/03/2024 06:57 Note Text: HISTORY AND PHYSICAL Jayden Craig 1940 REFERRING PHYSICIAN: Elsa Mayo APRN.C* CHIEF COMPLAINT: Consult HPI: Jayden is a 83 year old male with a complaint of a bulge and discomfort in his prior supraumbilical incisional hernia repair site. The patient notes discomfort in this area with lifting and coughing. The symptoms have increased, over the past few months. The patient notes no symptoms of bowel obstruction and denies nausea or vomiting. The patient underwent repair of a type 3 paraesophageal hernia on August 24, 2022 along with repair of a simple umbilical hernia. He then had repair without mesh of two fascial defects on April 03, 2024. The defects were closed with 0 PDS and the two defects were noted to be 4x4cm and 1x2cm. The patient was seen at the request of Elsa Mayo concerning a recurrent incisional hernia on March 26, 2024. The patient was scheduled for surgical repair but was found to have positive cardiac evaluation and surgery was canceled. The patient follows with the [facility]. He was found of a positive stress test. He then underwent cardiac catheterization and had a drug-eluting stent placed in his proximal RCA on 07/03/2024. He underwent second cardiac catheterization on August 11, 2024 for attempted placement of a stent in his first OM branch this was not successful and he recommended medical therapy following that attempted stent placement. The patient has been started on Plavix for the drug-eluting stent. The patient notes that the hernia site has grown rapidly he has loops of small bowel within the hernia site now and he notes discomfort in the area usually every 2 to 3 days. It is currently reducible. I contacted his worship director. While normally their goal would be to maintain Plavix for 6 months, given his crescendoing symptoms the consideration was to perform hernia repair and hold the Plavix for 3 days in mid November. Cardiology office said Plavix could be held for 5 days what I discussed with them was holding the Plavix for 3 days and then performing the procedure in an open fashion. 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 CAD (coronary artery disease) CABG and stent Constipation Essential hypertension Fatigue, unspecified type H/O ventral hernia repair 04/03/2023 Hiatal hernia 1990 History of coronary artery bypass graft 07/24/2018 VASQUES in situ mammary end to side mid LAD, Vein graft ascending aorta end to side RCA, Vein graft ascending aorta end to side obtuse marginal 1 Hyperlipidemia Peptic ulcer, unspecified site, unspecified as acute or chronic, without mention of hemorrhage, perforation, or obstruction 2004 Unspecified hypothyroidism 1989 PAST SURGICAL HISTORY Procedure Laterality Date ANES HRNA RPR UPR ABD LMBRANDVENTRAL HERNIAANDDEHISC 04/03/[address] Regina Oswald APPENDECTOMY COLONOSCOPY FLX DX W/COLLJ SPEC WHEN PFRMD 06/28/2004 Colonoscopy COLONOSCOPY FLX DX W/COLLJ SPEC WHEN PFRMD 08/06/2015 Colonoscopy CORONARY ARTERY BYPASS GRAFT HX 07/24/2018 VASQUES in situ mammary end to side mid LAD, Vein graft ascending aorta end to side RCA, Vein graft ascending aorta end to side obtuse marginal 1. EGD N/A 06/29/2020 Dr. Keating EGD 05/31/2021 EGD TRANSORAL BIOPSY SINGLE/MULTIPLE 08/30/2009 EGD TRANSORAL BIOPSY SINGLE/MULTIPLE 08/23/2011 repeat in 2 years ESOPHAGOGASTRODUODENOSCOPY TRANSORAL DIAGNOSTIC 10/06/1998 EGD ESOPHAGOGASTRODUODENOSCOPY TRANSORAL DIAGNOSTIC 01/29/2000 EGD ESOPHAGOGASTRODUODENOSCOPY TRANSORAL DIAGNOSTIC 08/04/2003 EGD ESOPHAGOGASTRODUODENOSCOPY TRANSORAL DIAGNOSTIC 08/29/2007 EGD ESOPHAGOGASTRODUODENOSCOPY TRANSORAL DIAGNOSTIC 08/28/2013 EGD ESOPHAGOGASTRODUODENOSCOPY TRANSORAL DIAGNOSTIC 10/08/2017 EGD HEART SURGERY HX HIATAL HERNIA REPAIR HX 08/24/2022 Laparoscopic paraesophageal hernia repair with gastropexy, Primary repair of ventral hernia, EGD LAPAROSCOPIC CHOLECYSTECTOMY 12/15/2018 PAST SURGICAL HISTORY OF N/A 04/25/2017 Back surgery done at [address] and cleaned up arthritis REPAIR UMBILICAL HERNIA 08/24/2022 Current Outpatient Medications Medication Sig fluticasone-vilanterol (BREO ELLIPTA) 200-25 mcg/dose inhaler Inhale 1 inhalation as instructed once daily. clopidogrel (PLAVIX) 75 mg tablet Take 75 mg by mouth once daily. metoprolol tartrate, short acting, (LOPRESSOR) 25 mg tablet Take 1 tablet by mouth two times a day. pantoprazole DR (PROTONIX) 40 mg tablet Take 1 tablet by mouth two times a day. Take on empty stomach, 1/2 hr before meal. simvastatin (ZOCOR) 80 mg tablet Take 1 tablet by mouth daily at bedti (more content not included)...[facility]08-22-2025 History of Present illness Narrative* Dk Bynum MD - 10/03/2024 6:51 AM EDT HISTORY AND PHYSICAL Jayden Craig 1940 REFERRING PHYSICIAN: Elsa Mayo APRN.C* CHIEF COMPLAINT: Consult HPI: Jayden is a 83 year old male with a complaint of a bulge and discomfort in his prior supraumbilical incisional hernia repair site. The patient notes discomfort in this area with lifting and coughing. The symptoms have increased, over the past few months. The patient notes no symptoms of bowel obstruction and denies nausea or vomiting. The patient underwent repair of a type 3 paraesophageal hernia on August 24, 2022 along with repair of a simple umbilical hernia. He then had repair without mesh of two fascial defects on April 03, 2024. The defects were closed with 0 PDS and the two defects were noted to be 4x4cm and 1x2cm. The patient was seen at the request of Elsa Mayo concerning a recurrent incisional hernia on March 26, 2024. The patient was scheduled for surgical repair but was found to have positive cardiac evaluation andsurgery was canceled. The patient follows with the [facility]. He was found of a positive stress test. He then underwent cardiac catheterization and had a drug-eluting stent placed in his proximal RCA on 07/03/2024. He underwent second cardiac catheterization on August 11, 2024 for attempted placement of a stent in his first OM branch this was not successful and he recommended medical therapy following that attempted stent placement. The patient has been started on Plavix for the drug-eluting stent. The patient notes that the hernia site has grown rapidly he has loops of small bowel within the hernia site now and he notes discomfort in the area usually every 2 to 3 days. It is currently reducible. I contacted his worship director. While normally their goal would be to maintain Plavix for 6 months, given his crescendoing symptoms the consideration was to perform hernia repair and hold the Plavix for 3 days in mid November. Cardiology office said Plavix could be held for 5 days what I discussed with them was holding the Plavix for 3 days and then performing the procedure in an open fashion. 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 CAD (coronary artery disease) CABG and stent Constipation Essential hypertension Fatigue, unspecified type H/O ventral hernia repair 04/03/2023 Hiatal hernia 1989 History of coronary artery bypass graft 07/24/2018 VASQUES in situ mammary end to side mid LAD, Vein graft ascending aorta end to side RCA, Vein graft ascending aorta end to side obtuse marginal 1 Hyperlipidemia Peptic ulcer, unspecified site, unspecified as acute or chronic, without mention of hemorrhage, perforation, or obstruction 2004 Unspecified hypothyroidism 1989 PAST SURGICAL HISTORY Procedure Laterality Date ANES HRNA RPR UPR ABD LMBR&VENTRAL HERNIA&DEHISC 04/03/[address] Regina Oswald APPENDECTOMY COLONOSCOPY FLX DX W/COLLJ SPEC WHEN PFRMD 06/28/2004 Colonoscopy COLONOSCOPY FLX DX W/COLLJ SPEC WHEN PFRMD 08/06/2015 Colonoscopy CORONARY ARTERY BYPASS GRAFT HX 07/24/2018 VASQUES in situ mammary end to side mid LAD, Vein graft ascending aorta end to side RCA, Vein graft ascending aorta end to side obtuse marginal 1. EGD N/A 06/29/2020 Dr. Keating EGD 05/31/2021 EGD TRANSORAL BIOPSY SINGLE/MULTIPLE 08/30/2009 EGD TRANSORAL BIOPSY SINGLE/MULTIPLE 08/23/2011 repeat in 2 years ESOPHAGOGASTRODUODENOSCOPY TRANSORAL DIAGNOSTIC 10/06/1998 EGD ESOPHAGOGASTRODUODENOSCOPY TRANSORAL DIAGNOSTIC 01/29/2000 EGD ESOPHAGOGASTRODUODENOSCOPY TRANSORAL DIAGNOSTIC 08/04/2003 EGD ESOPHAGOGASTRODUODENOSCOPY TRANSORAL DIAGNOSTIC 08/29/2007 EGD ESOPHAGOGASTRODUODENOSCOPY TRANSORAL DIAGNOSTIC 08/28/2013 EGD ESOPHAGOGASTRODUODENOSCOPY TRANSORAL DIAGNOSTIC 10/08/2017 EGD HEART SURGERY HX HIATAL HERNIA REPAIR HX 08/24/2022 Laparoscopic paraesophageal hernia repair with gastropexy, Primary repair of ventral hernia, EGD LAPAROSCOPIC CHOLECYSTECTOMY 12/15/2018 PAST SURGICAL HISTORY OF N/A 04/25/2017 Back surgery done at [facility], [address] [place] [address] and cleaned up arthritis REPAIR UMBILICAL HERNIA 08/24/2022 Current Outpatient Medications Medication Sig fluticasone-vilanterol (BREO ELLIPTA) 200-25 mcg/dose inhaler Inhale 1 inhalation as instructed once daily. clopidogrel (PLAVIX) 75 mg tablet Take 75 mg by mouth once daily. metoprolol tartrate, short acting, (LOPRESSOR) 25 mg tablet Take 1 tablet by mouth two times a day. pantoprazole DR (PROTONIX) 40 mg tablet Take 1 tablet by mouth two times a day. Take on empty stomach, 1/2 hr before meal. simvastatin (ZOCOR) 80 mg tablet Take 1 tablet by mouth daily at bedtime. ondansetron (ZOFRAN) 4 mg tablet Take 1 tablet by mouth every 8 hours as needed for nausea/vomiting. fluticasone (FLONASE) 50 mcg/actuation nasal spray Use 2 Sprays in each nostril once daily. Rinse mouth after use. albuterol HFA (PROVENTIL HFA, VENTOLIN HFA) 90 mcg/actuation inhaler Inhale 2 Puffs as instructed every 4 hours as needed for wheezing/shortness of breath. tamsulosin (FLOMAX) 0.4 mg TAKE 1 CAPSULE BY MOUTH EVERYDAY AT BEDTIME levothyroxine (LEVOXYL) 175 mcg tablet Take 1 tablet by mouth once daily. Take on empty stomach. For thyroid. aspirin, enteric coated (ASPIRIN, ENTERIC COATED) 325 mg EC tablet Take 1 tablet by mouth once daily. magnesium oxide (MAG-OX) 400 mg (241.3 mg magnesium) tablet Take 1 tablet by mouth once daily. acetaminophen (TYLENOL) 325 mg tablet Take 2 tablets by mouth every 4 hours as needed. THERAPEUTIC MULTIVITAMIN TAB Take 1 tablet by mouth once daily. albuterol HFA (PROVENTIL HFA, VENTOLIN HFA) 90 mcg/actuation inhaler Inhale 2 puffs as instructed every 4 hours as needed. No current facility-administered medications for this visit. ALLERGIES: Lipitor [Atorvastatin Calcium], Omnicef [Cefdinir], and Zithromax [Azithromycin] PERSONAL HISTORY: Social History Tobacco Use Smoking status: Former Current packs/day: 0.00 Average packs/day: 0.5 packs/day for 27.0 years (13.5 ttl pk-yrs) Types: Cigarettes Start date: 1954 Quit date: 1981 Years since quittin.6 Smokeless tobacco: Never Vaping Use Vaping status: Never Used Substance Use Topics Alcohol use: Not Currently Drug use: Never FAMILY HISTORY: FAMILY HISTORY Problem Relation Age of Onset Emphysema Mother Emphysema Father No Known Problems Brother No Known Problems Maternal Grandmother No Known Problems Maternal Grandfather No Known Problems Paternal Grandmother No Known Problems Paternal Grandfather other (no cardiac hx per pt) Other REVIEW OF SYMPTOMS: The review of systems data was entered by the nurse and reviewed by me There are no exam notes on file for this visit. PHYSICAL EXAMINATION: General: The patient is 83 year old male, well nourished, well hydrated in no acute distress. The patient is oriented to time, place, and person. VITALS: Blood pressure 116/68, pulse 80, temperature 36.4 C (97.5 F), temperature source Temporal, resp. rate 18, height 175.3 cm (5' 9), weight 79.4 kg (175 lb), SpO2 99%. Body mass index is 25.84 kg/m . HEENT: Normal cephalic, ataumatic, pupils are equally round, sclera are anicteric, mucous membranesare moist, oropharynx is clear. Neck has no masses, asymmetry or lymphadenopathy. Thyroid is unremarkable. Respiratory: Clear to auscultation and percussion. Normal respiratory excursion and pattern. Cardiac: Examination is regular rate and rhythm. Abdominal exam: Soft, nontender, with no palpable masses. No hepatosplenomegaly. A small, reducibleincisional hernia Rectal exam: exam deferred Extremities: no clubbing, cyanosis or edema. No adenopathy. Other: LABORATORY VALUES: As Noted RADIOLOGIC STUDIES: As Noted Assessment IMPRESSION: prior simple ventral incisional hernia recurrence PLAN: My plan is to perform an open incisional hernia repair with mesh. The planned surgical procedure was discussed extensively with the patient. The risks, benefits, anticipated outcomes and possible complications were mentioned. Jayden laws that all hernia repair surgery has a chance of recurrence and/or chronic post operative pain. My staff has also explained the procedure in understandable terms and the patient was given the option to take printed material concerning the planned procedure. The patient had the opportunity to ask questions concerning the planned procedure. The patient freely consents to the planned procedure. My findings have been communicated to Elsa Mayo via shared medical record. This note will be forwarded to Eloisa Espinal MD. Diagnoses: (K43.2) Incisional hernia, without obstruction or gangrene (primary encounter diagnosis) Anticipated CPT Code: Recurrent anterior abdominal hernia repair 75127 - 3-10 cm reducible open repair with mesh Anticipated Anesthetic: General Patient weight: Blood pressure 116/68, pulse 80, temperature 36.4 C (97.5 F), temperature source Temporal, resp. rate 18, height 175.3 cm (5' 9), weight 79.4 kg (175 lb), SpO2 99%. BMI: Body mass index is 25.84 kg/m . Planned antibiotic: Ancef 2gm IVPB consumer affairs director to OR SCDs needed - Yes Return to Clinic: The patient is instructed to follow-up with me 1 week post operatively. Dk Bynum MD documented in this encounterOhio[facility]25 Telephone encounter Note * Telephone Encounter - Marely Begum MA - 09/24/2024 1:58 PM EDT See message from pt. Marely Begum MA [facility]08-13-2025 Miscellaneous Notes* Telephone Encounter - Marely Begum MA - 09/24/2024 1:58 PM EDT See message from pt. Marely Begum MA documented in this encounterOhiohealth [facility]08-04-2025 History of Present illness Narrative* Mary Kennedy MD - 09/15/2024 1:30 PM EDT Images from the original note were not included. . Respiratory Clarita Note Patient name: Jayden Craig PCP: Eloisa Espinal MD Recording using Resource Guru software for draft documentation of the visit was discussed with the patient/authorized credit resolution representative; all questions welcomed and answered. Patient/authorized credit resolution representative agreed to proceed CC: SOB HPI: Jayden Craig 83 year old male former less than [id number] smoker quitting in 1981 with PMHsignificant for GERD with Escobedo's esophagus, HTN, CAD s/p CABG s/p stent, hypothyroidism, postop AF, HLD previously seen by Dr. Burger in 2017 for shortness of breath. 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 Symptomatology consistent with possible asthma but pulmonary function tests werenormal. Definitive methacholine challenge testing ordered which was not performed. Patient was on as needed albuterol at that time. He has been on Advair HFA 115/21 and albuterol in the past. Controller inhaler was changed recently to low-dose Brenya which he does not find as effective as the Advair. He no longer has albuterol inhaler to use as needed. Current history dates back to preoperative evaluation for evaluation for ventral hernia repair. The anesthesiology preappointment noted that he was rather dyspneic so recommended cardiac clearance. He had a nuclear medicine stress test that waspositive for ischemia. Subsequent cardiac catheterization showed patent VASQUES to LAD and saphenous vein graft to RPLV. He had a successful DARSHANA to the proximal right coronary arteries with plans for sta ged PCI to his OM. Subsequent attempt at DARSHANA to his LM was unsuccessful. Work And Family Life Consultant recommended pulmonary evaluation to exclude COPD as a contributor to his dyspnea. Main symptom is dyspnea with exertion. He can ambulate approximately 50 feet before he has to stop and rest. He denies any wheezing, chronic cough or mucus production. He has no orthopnea. Denies increased shortness of breath with exposure to heat and humidity or strong odors or fumes. No history of asthma as a child. No history of recurrent bronchitis or pneumonia. [facility] and [facility] with marked improvement postbronchodilator. This is dramatically different from pulmonary function tests obtained in 2021 which were essentially normal except for slight reduction in diffusing capacity. 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 CAD (coronary artery disease) CABG and stent Constipation Essential hypertension Fatigue, unspecified type H/O ventral hernia repair 04/03/2023 Hiatal hernia 1989 History of coronary artery bypass graft 07/24/2018 VASQUES in situ mammary end to side mid LAD, Vein graft ascending aorta end to side RCA, Vein graft ascending aorta end to side obtuse marginal 1 Hyperlipidemia Peptic ulcer, unspecified site, unspecified as acute or chronic, without mention of hemorrhage, perforation, or obstruction 2004 Unspecified hypothyroidism 1989 ALLERGIES Allergen Reactions Lipitor [Atorvastat* Intolerance myalgias Omnicef [Cefdinir] Diarrhea Zithromax [Azithrom* clopidogrel (PLAVIX) 75 mg tablet Take 75 mg by mouth once daily. metoprolol tartrate, short acting, (LOPRESSOR) 25 mg tablet Take 1 tablet by mouth two times a day. pantoprazole DR (PROTONIX) 40 mg tablet Take 1 tablet by mouth two times a day. Take on empty stomach, 1/2 hr before meal. simvastatin (ZOCOR) 80 mg tablet Take 1 tablet by mouth daily at bedtime. ondansetron (ZOFRAN) 4 mg tablet Take 1 tablet by mouth every 8 hours as needed for nausea/vomiting. fluticasone (FLONASE) 50 mcg/actuation nasal spray Use 2 Sprays in each nostril once daily. Rinse mouth after use. albuterol HFA (PROVENTIL HFA, VENTOLIN HFA) 90 mcg/actuation inhaler Inhale 2 Puffs as instructed every 4 hours as needed for wheezing/shortness of breath. tamsulosin (FLOMAX) 0.4 mg TAKE 1 CAPSULE BY MOUTH EVERYDAY AT BEDTIME levothyroxine (LEVOXYL) 175 mcg tablet Take 1 tablet by mouth once daily. Take on empty stomach. For thyroid. aspirin, enteric coated (ASPIRIN, ENTERIC COATED) 325 mg EC tablet Take 1 tablet by mouth once daily. magnesium oxide (MAG-OX) 400 mg (241.3 mg magnesium) tablet Take 1 tablet by mouth once daily. acetaminophen (TYLENOL) 325 mg tablet Take 2 tablets by mouth every 4 hours as needed. THERAPEUTIC MULTIVITAMIN TAB Take 1 tablet by mouth once daily. fluticasone-salmeterol HFA (ADVAIR HFA) 230-21 mcg/actuation inhaler Inhale 2 puffs as instructed two times a day. albuterol HFA (PROVENTIL HFA, VENTOLIN HFA) 90 mcg/actuation inhaler Inhale 2 puffs as instructed every 4 hours as needed. 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 Regina Oswald APPENDECTOMY COLONOSCOPY FLX DX W/COLLJ SPEC WHEN PFRMD 06/28/2004 Colonoscopy COLONOSCOPY FLX DX W/COLLJ SPEC WHEN PFRMD 08/06/2015 Colonoscopy CORONARY ARTERY BYPASS GRAFT HX 07/24/2018 VASQUES in situ mammary end to side mid LAD, Vein graft ascending aorta end to side RCA, Vein graft ascending aorta end to side obtuse marginal 1. EGD N/A 06/29/2020 Dr. Keating EGD 05/31/2021 EGD TRANSORAL BIOPSY SINGLE/MULTIPLE 08/30/2009 EGD TRANSORAL BIOPSY SINGLE/MULTIPLE 08/23/2011 repeat in 2 years ESOPHAGOGASTRODUODENOSCOPY TRANSORAL DIAGNOSTIC 10/06/1998 EGD ESOPHAGOGASTRODUODENOSCOPY TRANSORAL DIAGNOSTIC 01/29/2000 EGD ESOPHAGOGASTRODUODENOSCOPY TRANSORAL DIAGNOSTIC 08/04/2003 EGD ESOPHAGOGASTRODUODENOSCOPY TRANSORAL DIAGNOSTIC 08/29/2007 EGD ESOPHAGOGASTRODUODENOSCOPY TRANSORAL DIAGNOSTIC 08/28/2013 EGD ESOPHAGOGASTRODUODENOSCOPY TRANSORAL DIAGNOSTIC 10/08/2017 EGD HEART SURGERY HX HIATAL HERNIA REPAIR HX 08/24/2022 Laparoscopic paraesophageal hernia repair with gastropexy, Primary repair of ventral hernia, EGD LAPAROSCOPIC CHOLECYSTECTOMY 12/15/2018 PAST SURGICAL HISTORY OF N/A 04/25/2017 Back surgery done at [facility], [address] [place] [address] and cleaned up arthritis REPAIR UMBILICAL HERNIA 08/24/2022 PMH, Social history, family history and surgical history reviewed and updated in EMR REVIEW OF SYSTEMS: CONSTITUTIONAL: No fevers, chills, nightsweats, unintended weight loss HEENT: Positive nasal congestion/sinus symptoms, postnasal drip CARDIOVASCULAR: No chest pain, palpitations, orthopnea, PND,edema. PULM: See HPI GI: Occasional nausea, no abdominal pain. NEURO: Poor balance INTEGUMENTARY: Bruising PHYSICAL EXAMINATION: BP 110/62 Pulse 88 Resp 20 Ht 5' 9 (1.75m) Wt 176 lb (79.8kg) SpO2 97% BMI 25.98 kg/(m^2). General Appearance: Elderly male, NAD. Skin: Skin color, texture, turgor normal, no suspicious rashes or lesions. Upper extremity ecchymoses Head: Normocephalic, no masses, lesions, tenderness or abnormalities. Oropharynx: No oral lesions or thrush. Neck: No masses or adenopathy Chest wall: Kyphosis. Abdomen: Reducible ventral hernia Lungs: Not labored, normal to percussion, coarse rhonchi. Heart: Regular rate and rhythm, soft murmur Extremities: Trace edema, no clubbing. Assessment/Plan: 1. 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 Patient was instructed to pretreat with albuterol prior to significant exertion 2. Former cigarette smoker -Former remote less than [id number] smoker without sequelae of COPD -Continue abstinence 3. 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 Mary Kennedy MD Respiratory Clarita documented in this encounterOhio[facility]08-04-2025 NoteHNO ID: [id number] Author: MARY KENNEDY MD Service: ? Author Type: Physician Type: Progress Notes Filed: 09/15/2024 15:17 Note Text: . Respiratory Clarita Note Patient name: Jayden Craig PCP: Eloisa Espinal MD Recording using Resource Guru software for draft documentation of the visit was discussed with the patient/authorized credit resolution representative; all questions welcomed and answered. Patient/authorized credit resolution representative agreed to proceed CC: SOB HPI: Jayden Craig 83 year old male former less than [id number] smoker quitting in 1981 with PMH significant for GERD with Escobedo's esophagus, HTN, CAD s/p CABG s/p stent, hypothyroidism, postop AF, HLD previously seen by Dr. Burger in 2017 for shortness of breath. 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 Chest x-ray not consistent with hypersensitivity pneumonitis but he did have evidence of elevated right hemidiaphragm. Symptomatology consistent with possible asthma but pulmonary function tests were normal. Definitive methacholine challenge testing ordered which was not performed. Patient was on as needed albuterol at that time. He has been on Advair HFA 115/21 and albuterol in the past. Controller inhaler was changed recently to low-dose Brenya which he does not find as effective as the Advair. He no longer has albuterol inhaler to use as needed. Current history dates back to preoperative evaluation for evaluation for ventral hernia repair. The anesthesiology preappointment noted that he was rather dyspneic so recommended cardiac clearance. He had a nuclear medicine stress test that was positive for ischemia. Subsequent cardiac catheterization showed patent VASQUES to LAD and saphenous vein graft to RPLV. He had a successful DARSHANA to the proximal right coronary arteries with plans for staged PCI to his OM. Subsequent attempt at DARSHANA to his LM was unsuccessful. Work And Family Life Consultant recommended pulmonary evaluation to exclude COPD as a contributor to his dyspnea. Main symptom is dyspnea with exertion. He can ambulate approximately 50 feet before he has to stop and rest. He denies any wheezing, chronic cough or mucus production. He has no orthopnea. Denies increased shortness of breath with exposure to heat and humidity or strong odors or fumes. No history of asthma as a child. No history of recurrent bronchitis or pneumonia. Recent pulmonary function test from [facility] shows combined restriction and obstruction with marked improvement postbronchodilator. This is dramatically different from pulmonary function tests obtained in 2021 which were essentially normal except for slight reduction in diffusing capacity. 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 CAD (coronary artery disease) CABG and stent Constipation Essential hypertension Fatigue, unspecified type H/O ventral hernia repair 04/03/2023 Hiatal hernia 1989 History of coronary artery bypass graft 07/24/2018 VASQUES in situ mammary end to side mid LAD, Vein graft ascending aorta end to side RCA, Vein graft ascending aorta end to side obtuse marginal 1 Hyperlipidemia Peptic ulcer, unspecified site, unspecified as acute or chronic, without mention of hemorrhage, perforation, or obstruction 2004 Unspecified hypothyroidism 1989 ALLERGIES Allergen Reactions Lipitor [Atorvastat* Intolerance myalgias Omnicef [Cefdinir] Diarrhea Zithromax [Azithrom* clopidogrel (PLAVIX) 75 mg tablet Take 75 mg by mouth once daily. metoprolol tartrate, short acting, (LOPRESSOR) 25 mg tablet Take 1 tablet by mouth two times a day. pantoprazole DR (PROTONIX) 40 mg tablet Take 1 tablet by mouth two times a day. Take on empty stomach, 1/2 hr before meal. simvastatin (ZOCOR) 80 mg tablet Take 1 tablet by mouth daily at bedtime. ondansetron (ZOFRAN) 4 mg tablet Take 1 tablet by mouth every 8 hours as needed for nausea/vomiting. fluticasone (FLONASE) 50 mcg/actuation nasal spray Use 2 Sprays in each nostril once daily. Rinse mouth after use. albuterol HFA (PROVENTIL HFA, VENTOLIN HFA) 90 mcg/actuation inhaler Inhale 2 Puffs as instructed every 4 hours as needed for wheezing/shortness of breath. tamsulosin (FLOMAX) 0.4 mg TAKE 1 CAPSULE BY MOUTH EVERYDAY AT BEDTIME levothyroxine (LEVOXYL) 175 mcg ta (more content not included)...[facility]08-01-2025 Miscellaneous Notes* Telephone Encounter - Marely Begum MA - 09/12/2024 8:14 AM EDT Pt notified of results below via Hail Varsity. Notified pt his chart has been routed to Schedulers to help assist with scheduling with Pulmonary. Pt made aware he can expedite process by calling to schedule as well. Phone number given to call. Marely Begum MA * Telephone Encounter - Eloisa Espinal MD - 09/11/2024 5:35 PM EDT The report shows mild to moderate decrease in some lung parameters; I would suggest Pulm consult for their recommendations Eloisa Espinal MD * Telephone Encounter - Elza Wall MA - 09/08/2024 3:35 PM EDT See Across [employer] message. PFT report scanned into scanned docs. Should pt follow up with Cardio? Elza Wall MA * Telephone Encounter - Elza Wall MA - 09/08/2024 12:52 PM EDT Only recent test results received on pt was PFT which has been scanned into pt chart. Asked pt if he was referring to the PFT test results. Elza Wall MA documented in this encounterOhiohealth [facility]08-01-2025 Telephone encounter Note * Telephone Encounter - Marely Begum MA - 09/12/2024 8:14 AM EDT Pt notified of results below via Hail Varsity. Notified pt his chart has been routed to Schedulers to help assist with scheduling with Pulmonary. Pt made aware he can expedite process by calling to schedule as well. Phone number given to call. Marely Begum MA [facility]07-31-2025 Telephone encounter Note* Telephone Encounter - Eloisa Espinal MD - 09/11/2024 5:35 PM EDT The report shows mild to moderate decrease in some lung parameters; I would suggest Pulm consult for their recommendations Eloisa Espinal MD [facility]07-28-2025 Telephone encounter Note* Telephone Encounter - Elza Wall MA - 09/08/2024 3:35 PM EDT See SiOxhart message. PFT report scanned into scanned docs. Should pt follow up with Cardio? Elza Wall MA [facility]07-28-2025 Telephone encounter Note* Telephone Encounter - Elza Wall MA - 09/08/2024 12:52 PM EDT Only recent test results received on pt was PFT which has been scanned into pt chart. Asked pt if he was referring to the PFT test results. Elza Wall MA [facility]07-08-2025 Evaluation note* Diagnosis Onset Date Resolution Status Admit Date Shortness of breath acute August 19, 2024 10:11am CAD (coronary artery disease) chroni c August 19, 2024 10:11am Dyslipidemia chronic August 19 10:11am Hypertension chronic August 19 10:11am History of atrial fibrillati on less than 8 weeks after coronary artery bypa resolved August 19 10:11am [facility] Work Phone: 1(533) 742-634007-08-2025 Evaluation note* Diagnosis Onset Date Resolution Status Admit Date Shortness of breath acute August 19, 2024 10:11am CAD (coronary artery disease) chroni c August 19, 2024 10:11am Dyslipidemia chronic August 19 10:11am Hypertension chronic August 19 10:11am History of atrial fibrillation less than 8 weeks after coronary artery bypa resolved August 19, 2024 1 0:11am CAD (coronary artery disease) chroni c November 11, 2024 2:00pm COPD (chronic obstructive pulmonary disease) chronic October 2:00pm Dyslipidemia chronic November 112024 2:00pm Hypertension chronic November 112024 2:00pm History of atrial fibrillation less than 8 weeks after coronary artery bypa resolved November 11, 2024 2:00pm Preoperative cardiovascular examination noneactive November 11, 2024 2:00pm [facility] Work Phone: 1(454) 253-237807-01-2025 Telephone encounter Note* Telephone Encounter - Elza Wall MA - 08/12/2024 8:22 AM EDT Pt notified of below via SiOxhart. Elza Wall MA [facility]07-01-2025 Miscellaneous Notes* Telephone Encounter - Elza Wall MA - 08/12/2024 8:22 AM EDT Pt notified of below via SiOxhart. Elza Wall MA * Telephone Encounter - Eloisa Espinal MD - 08/11/2024 7:49 PM EDT He should follow up with the Work And Family Life Consultant to see what they recommend as the next steps Eloisa Espinal MD * Telephone Encounter - Elza Wall MA - 08/09/2024 8:14 AM EDT See [employer] message. Should pt follow up with Work And Family Life Consultant at [facility] or do you want tosee pt sooner than his scheduled Nov appt? Elza Wall MA documented in this encounterOhiohealth [facility]06-30-2025 Telephone encounter Note * Telephone Encounter - Eloisa Espinal MD - 08/11/2024 7:49 PM EDT He should follow up with the Work And Family Life Consultant to see what they recommend as the next steps Eloisa Espinal MD [facility]06-28-[facility] Telephone encounter Note* Telephone Encounter - lEza Wall MA - 08/09/2024 8:14 AM EDT See mychart message. Should pt follow up with Work And Family Life Consultant at [facility] or do you want tosee pt sooner than his scheduled Oct appt? Elza Wall MA [facility]06-16-2025 [facility] Records Department [address] [place] [address] History Physical Exam 07/28/24 1411 MR#: [id number] Acct: [id number] Name: JAYDEN CRAIG Rep #: [id number] : 1940 83 From: Stacey Daly MD PCP: Dr. Eloisa Espinal MD [place] History and Physical Date of Admission: 08/06/24 This is an 83-year-old male who presents today for cardiac catheterization, following an abnormal stress test. He has a history of coronary artery disease status post CABG in 2019. According to him, he received 3 grafts to his coronary arteries. Also history of dyslipidemia and COPD. 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 Patient is also scheduled to undergo a hernia repair surgery for the end of this month. We are asked to evaluate his cardiac risk for the proposed procedure. Patient denies any chest pains either at rest or with exertion. For the past couple of years, he has been feeling short of breath with exertion. According to him, it is progressively gotten worse. Moderate exertion makes him short of breath. Denies any orthopnea. No PND. Denies any ankle edema. Denies any palpitations. Occasional lightheadedness. No syncope or presyncope. 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 CAD (coronary artery disease) Chronic fatigue, unspecified Constipation DDD (degenerative disc disease), lumbar Essential hypertension GERD (gastroesophageal reflux disease) Hiatal hernia Hyperlipidemia Hypothyroidism Mild intermittent asthma without complication Paroxysmal atrial fibrillation Peptic ulcer, site unspecified, unspecified as acute or chronic, without hemorrhage or perforation Shortness of breath Surgical History History of back surgery ( 04/25/17) 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) History of repair of hiatal hernia History of umbilical hernia repair History of ventral hernia repair Hx laparoscopic cholecystectomy Family History Mother Emphysema of lungFather Emphysema of lung Social History Smoking Status: Former smoker quit date: 02/12/81 pack-years: 13 Tobacco: How many years used: 27 Electronic Cigarette Use: not used how long ago did patient quit smokin years ago alcohol intake: former substance use type: does not use ROS Const Const: Positive for fatigue and daytime sleepiness; Negative for weakness, headache(s) or weight gain ENT ENT: Positive for dizziness; Negative for headache(s), Nosebleed/epistaxis or balance problems Cardio Chest Pain: No Palpitations: No Edema: None Muscle aches with walking: None Resp Respiratory: Positive for SOB with activity and SOB at rest; Negative for SOB orthopnea SOB lying down GI GI: Positive for nausea (in AM); Negative vomiting or heartburn Musc Musc: Positive for joint pain (chronic, arthritis); Negative for muscle aches/ myalgia, muscle weakness or balance problems Neuro Neuro: Positive for dizziness; Negative for lightheadedness, near syncope, syncope, headache(s) or weakness Endo Endo: Positive for fatigue Cardiology Exam Const Appearance: comfortable and no acute distress Nutritional Appearance: well nourished Neck Neck: no JVD Carotids: Negative bruit Chest Auscultation: Bilateral: Diminished Lung Sounds Cardio Rate: regular rate Rhythm: regular rhythm Heart sounds: S1 normal and S2 normal Neuro General: patient alert, patient awake and patient oriented x3 Extremities Lower Extremity Edema: None: Bilateral Supplemental Info Supplemental Information Echocardiogram 07/24/2023: Impression: -Technically difficult exam due to body habitus and lung interference -Exam indication: CAD -The left ventricle is normal in size. Left ventricular systolic function is normal. EF = 54 +/- 5% (2D 4-ch) Grade I left ventricular diastolic dysfunction. -The right ventricle is normal in size. Right ventricular systolic function is normal. -The visualized aorta is borderline dilated with a maximal dimension of 3.8cm. -There are no significant valvular abnormalities. -Definity unavailable. -Exam was compared with the prior CC echocardiographic exam performed US Carotid Arteries Bilateral 08/01/2023: Impression: Right Side: Internal Carotid Artery: 20-39% stenosis. Vertebral Artery: Patent and antegrade flow noted. Innominate Artery: Unable to visualize Subclavian Artery: Proximal vessel patent. Unable to visualize origin. Left Side: Internal Carotid Artery: 20-39% stenosis. Vertebra (more content not included)...[facility]05-30-2025 Telephone encounter Note* Telephone Encounter - Jamaica Pagan LPN - 07/11/2024 1:44 PM EDT Prescription Refill Information The patient has been identified by name and date of : Yes Caregiver verified no other encounters exist for this prescription request: Yes Caregiver confirmed with patient/requestor that no other refills are due, in the near future, with this provider at this time: Yes The last office visit in the department: 05/16/2024 Does the patient have a future office visit with this provider/department: Yes Requested Prescriptions Pending Prescriptions Disp Refills metoprolol tartrate, short acting, (LOPRESSOR) 25 mg tablet 180 tablet 3 Sig: Take 1 tablet by mouth two times a day. Jamaica Pagan LPN July 11, 2024 1:45 PM [facility]05-30-2025 Miscellaneous Notes* Telephone Encounter - Jamaica Pagan LPN - 07/11/2024 1:44 PM EDT Prescription Refill Information The patient has been identified by name and date of : Yes Caregiver verified no other encounters exist for this prescription request: Yes Caregiver confirmed with patient/requestor that no other refills are due, in the near future, with this provider at this time: Yes The last office visit in the department: 05/16/2024 Does the patient have a future office visit with this provider/department: Yes Requested Prescriptions Pending Prescriptions Disp Refills metoprolol tartrate, short acting, (LOPRESSOR) 25 mg tablet 180 tablet 3 Sig: Take 1 tablet by mouth two times a day. Jamaica Pagan LPN July 11, 2024 1:45 PM documented in [facility] encounter[facility]25 [facility] Medical Records Department [address] [place] [address] History Physical Exam 06/23/24 1016 MR#: [id number] Acct: [id number] Name: JAYDEN CRAIG Rep #: [id number] : 1940 83 From: Stacey Daly MD PCP: Dr. 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 He has a history of coronary artery disease status post CABG in 2019. According to him, he received 3 grafts to his coronary arteries. Also history of dyslipidemia and COPD. 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 Patient is also scheduled to undergo a hernia repair surgery for the end of this month. We are asked to evaluate his cardiac risk for the proposed procedure. Patient denies any chest pains either at rest or with exertion. For the past couple of years, he has been feeling short of breath with exertion. According to him, it is progressively gotten worse. Moderate exertion makes him short of breath. Denies any orthopnea. No PND. Denies any ankle edema. Denies any palpitations. Occasional lightheadedness. No syncope or presyncope. 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 CAD (coronary artery disease) Chronic fatigue, unspecified Constipation DDD (degenerative disc disease), lumbar Essential hypertension GERD (gastroesophageal reflux disease) Hiatal hernia Hyperlipidemia Hypothyroidism Mild intermittent asthma without complication Paroxysmal atrial fibrillation Peptic ulcer, site unspecified, unspecified as acute or chronic, without hemorrhage or perforation Shortness of breath Surgical History History of back surgery ( 04/25/17) 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) History of repair of hiatal hernia History of umbilical hernia repair History of ventral hernia repair Hx laparoscopic cholecystectomy Family History Mother Emphysema of lungFather Emphysema of lung Social History Smoking Status: Former smoker quit date: 02/12/81 pack-years: 13 Tobacco: How many years used: 27 Electronic Cigarette Use: not used how long ago did patient quit smokin years ago alcohol intake: former substance use type: does not use ROS Const Const: Positive for fatigue and daytime sleepiness; Negative for weakness, headache(s) or weight gain ENT ENT: Positive for dizziness; Negative for headache(s), Nosebleed/epistaxis or balance problems Cardio Chest Pain: No Palpitations: No Edema: None Muscle aches with walking: None Resp Respiratory: Positive for SOB with activity and SOB at rest; Negative for SOB orthopnea SOB lying down GI GI: Positive for nausea (in AM); Negative vomiting or heartburn Musc Musc: Positive for joint pain (chronic, arthritis); Negative for muscle aches/ myalgia, muscle weakness or balance problems Neuro Neuro: Positive for dizziness; Negative for lightheadedness, near syncope, syncope, headache(s) or weakness Endo Endo: Positive for fatigue Cardiology Exam Const Appearance: comfortable and no acute distress Nutritional Appearance: well nourished Neck Neck: no JVD Carotids: Negative bruit Chest Auscultation: Bilateral: Diminished Lung Sounds Cardio Rate: regular rate Rhythm: regular rhythm Heart sounds: S1 normal and S2 normal Neuro General: patient alert, patient awake and patient oriented x3 Extremities Lower Extremity Edema: None: Bilateral Supplemental Info Supplemental Information Echocardiogram 07/24/2023: Impression: -Technically difficult exam due to body habitus and lung interference -Exam indication: CAD -The left ventricle is normal in size. Left ventricular systolic function is normal. EF = 54 +/- 5% (2D 4-ch) Grade I left ventricular diastolic dysfunction. -The right ventricle is normal in size. Right ventricular systolic function is normal. -The visualized aorta is borderline dilated with a maximal dimension of 3.8cm. -There are no significant valvular abnormalities. -Definity unavailable. -Exam was compared with the prior CC echocardiographic exam performed US Carotid Arteries Bilateral 08/01/2023: Impression: Right Side: Internal Carotid Artery: 20-39% stenosis. Vertebral Artery: Patent and antegrade flow noted. Innominate Artery: Unable to visualize Subclavian Artery: Proximal vessel patent. Unable to visualize origin. Left Side: Internal Carotid Artery: 20-39% stenosis. Vertebral A (more content not included)...[facility]04-17-2025 Telephone encounter Note* Telephone Encounter - Yamel Oro LPN - 05/29/2024 8:52 AM EDT Received fax of ECHO from [facility] done on 05/22/24. Scanned into EPIC, please review. Yamel Oro LPN [facility]04-17-2025 Miscellaneous Notes* Telephone Encounter - Yamel Oro LPN - 05/29/2024 8:52 AM EDT Received fax of ECHO from [facility] done on 05/22/24. Scanned into EPIC, please review. Yamel Oro LPN * Telephone Encounter - Rama Olivarez LPN - 05/23/2024 9:04 AM EDT Actually looks like stress test has already been sent from [facility]. Rama Olivarez LPN * Telephone Encounter - Rama Olivarez LPN - 05/23/2024 9:00 AM EDT Stress completed yesterday at [facility], has not been read yet. Will scan in when read. Rama Olivarez LPN * Telephone Encounter - Rama Olivarez LPN - 05/02/2024 10:56 AM EDT Patient is scheduled to have stress and echo at [facility] 05/22/24. .Rama Olivarez LPN * Telephone Encounter - Rama Olivarez LPN - 04/28/2024 1:44 PM EDT Called and spoke with [facility] scheduling. They have the orders for the stress test and Echo from Cardiology but they have not yet called the patient to schedule the testing. Rama Olivarez LPN documented in this encounterOhio[facility]04-[facility]25 Telephone encounter Note * Telephone Encounter - Rama Olivarez LPN - 05/23/2024 9:04 AM EDT Actually looks like stress test has already been sent from [facility]. Rama Olivarez LPN [facility]04-11-2025 Telephone encounter Note* Telephone Encounter - Rama Olivarez LPN - 05/23/2024 9:00 AM EDT Stress completed yesterday at [facility], has not been read yet. Will scan in when read. Rama Olivarez LPN [facility]04-08-2025 NoteHNO ID: [id number] Author: IVY RIZVI MA Service: ? Author Type: Accounting Assistant Type: Progress Notes Filed: 05/20/2024 16:40 Note Text: POPULATION HEALTH NAVIGATION OUTREACH Action/FYI Spoke to scheduled medicare wellness exam will discuss colonoscopy at the visit Topic Due (Y or N) Comments Medicare Wellness Y PCP Follow up Colorectal Cancer Screening Y Controlling Blood Pressure A1C HCC Flu Vaccine Care Everywhere Reviewed MyChart Activation Updated Appointment Note POPULATION HEALTH NAVIGATION OUTREACH Action/FYI Spoke to scheduled medicare wellness exam will discuss colonoscopy at the visit Topic Due (Y or N) Comments Medicare Wellness Y PCP Follow up Colorectal Cancer Screening Y Controlling Blood Pressure A1C HCC Flu Vaccine Care Everywhere Reviewed MyChart Activation Updated Appointment Note Reason for Outreach Care Gap/HCC or Scheduling Wellness Visits Care Gaps due: Medicare Annual Wellness Visit Colorectal Cancer Screening Patient Contacted: Spoke to patient/parent/or legal guardian Patient identified by name and : Yes Care Gap/HCC/Scheduling Wellness actions taken: Patient scheduled/pended orders: Medicare Annual Wellness Visit 11/20/2024 in [facility] with [place], ELOISA D - MEDICARE WELLNESS, colonoscopy Navigation Signature: Ivy Rizvi MA May 20, 2024 9:08 [facility]04-08-2025 History of Present illness Narrative* Ivy Rizvi MA - 05/20/2024 9:08 AM EDT POPULATION HEALTH NAVIGATION OUTREACH Action/FYI Spoke to scheduled medicare wellness exam will discuss colonoscopy at the visit Topic Due (Y or N) Comments Medicare Wellness Y PCP Follow up Colorectal Cancer Screening Y Controlling Blood Pressure A1C HCC Flu Vaccine Care Everywhere Reviewed MyChart Activation Updated Appointment Note Reason for Outreach Care Gap/HCC or Scheduling Wellness Visits Care Gaps due: Medicare Annual Wellness Visit Colorectal Cancer Screening Patient Contacted: Spoke to patient/parent/or legal guardian Patient identified by name and : Yes Care Gap/HCC/Scheduling Wellness actions taken: Patient scheduled/pended orders: Medicare Annual Wellness Visit Colorectal Cancer Screening 11/20/2024 in [facility] with ELOISA ESPINAL - MEDICARE WELLNESS Navigation Signature: Ivy Rizvi MA May 20, 2024 9:08 AM documented in this encounterOhio[facility]04-08-2025 NotePatient Outreach (NETNAV) JAYDEN CRAIG ([id number]) 1940 M NFR Date Time Provider Department 05/20/24 IVY RIZVI NETVIC During your visit today, we recorded the following information about you: Ivy Rizvi MA 05/20/2024 4:40 PM Addendum POPULATION HEALTH NAVIGATION OUTREACH Action/FYI Spoke to scheduled medicare wellness exam will discuss colonoscopy at the visit Topic Due (Y or N) Comments Medicare Wellness Y PCP Follow up Colorectal Cancer Screening Y Controlling Blood Pressure A1C HCC Flu Vaccine Care Everywhere Reviewed MyChart Activation Updated Appointment Note POPULATION HEALTH NAVIGATION OUTREACH Action/FYI Spoke to scheduled medicare wellness exam will discuss colonoscopy at the visit Topic Due (Y or N) Comments Medicare Wellness Y PCP Follow up Colorectal Cancer Screening Y Controlling Blood Pressure A1C HCC Flu Vaccine Care Everywhere Reviewed MyChart Activation Updated Appointment Note Reason for Outreach Care Gap/HCC or Scheduling Wellness Visits Care Gaps due: Medicare Annual Wellness Visit Colorectal Cancer Screening Patient Contacted: Spoke to patient/parent/or legal guardian Patient identified by name and : Yes Care Gap/HCC/Scheduling Wellness actions taken: Patient scheduled/pended orders: Medicare Annual Wellness Visit 11/20/2024 in [facility] with ELOISA ESPINAL - MEDICARE WELLNESS, colonoscopy Navigation Signature: Ivy Rizvi MA May 20, 2024 9:08 AM Allergies As of Date: 05/20/2024 Noted Allergy Reaction LIPITOR (ATORVASTATIN CALCIUM) 02/01/2006 5 - Intolerance Comments: myalgias OMNICEF (CEFDINIR) 2013 6 - Diarrhea ZITHROMAX (AZITHROMYCIN) 02/23/2005 Date Reviewed: 05/16/2024 Reviewed by: Marely Begum MA - Fully Assessed Reason for Visit: Population Health Navigation Outreach [3910] Cmt: ACO WORKBEGRACIE RIOS PCSA Prescriptions as of 05/20/2024 - pantoprazole DR (PROTONIX) 40 mg tablet Take 1 tablet by mouth two times a day. Take on empty stomach, 1/2 hr before meal. - simvastatin (ZOCOR) 80 mg tablet Take 1 tablet by mouth daily at bedtime. - ondansetron (ZOFRAN) 4 mg tablet Take 1 tablet by mouth every 8 hours as needed for nausea/vomiting. - budesonide-formoterol (BREYNA) 80-4.5 mcg/actuation inhaler Inhale 2 Puffs as instructed two times a day. - fluticasone (FLONASE) 50 mcg/actuation nasal spray Use 2 Sprays in each nostril once daily. Rinse mouth after use. - albuterol HFA (PROVENTIL HFA, VENTOLIN HFA) 90 mcg/actuation inhaler Inhale 2 Puffs as instructed every 4 hours as needed for wheezing/shortness of breath. - tamsulosin (FLOMAX) 0.4 mg TAKE 1 CAPSULE BY MOUTH EVERYDAY AT BEDTIME - levothyroxine (LEVOXYL) 175 mcg tablet Take 1 tablet by mouth once daily. Take on empty stomach. For thyroid. - metoprolol tartrate, short acting, (LOPRESSOR) 25 mg tablet Take 1 tablet by mouth two times a day. - aspirin, enteric coated (ASPIRIN, ENTERIC COATED) 325 mg EC tablet Take 1 tablet by mouth once daily. - magnesium oxide (MAG-OX) 400 mg (241.3 mg magnesium) tablet Take 1 tablet by mouth once daily. - acetaminophen (TYLENOL) 325 mg tablet Take 2 tablets by mouth every 4 hours as needed. - THERAPEUTIC MULTIVITAMIN TAB Take 1 tablet by mouth once daily. 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 [K22.70] 05/30/2007 Esophagitis, unspecified [K20.90] 08/29/2007 10/20/2010 Asthma [J45.909] 07/16/2014 Escobedo's esophagus determined by biopsy [K22.7*08/05/2015 Chronic left-sided low back pain with left-side*12/09/2015 08/18/2021 Overweight (BMI 25.0-29.9) [E66.3] 05/24/2016 Lumbar foraminal stenosis [M48.061] 09/13/2016 Intervertebral disc disorder with radiculopathy*09/13/2016 DDD (degenerative disc disease), lumbar [M51.36*09/13/2016 Spondylosis of lumbar region without myelopathy*09/13/2016 Atherosclerotic heart disease of [place] coronar* Pre-op testing [Z01.818] 07/23/2018 09/19/2018 Discharge planning issues [Z75.8] 07/23/2018 Difficult airway for intubation [T88.4XXA] 07/24/2018 07/29/2018 Pain, postoperative, acute [G89.18] 07/24/2018 Atelectasis [J98.11] 07/24/2018 07/26/2018 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/2018 Postoperat (more content not included)...[facility]04-04-2025 History of Present illness Narrative* Eloisa Espinal MD - 05/16/2024 11:00 AM EDT Chief Complaint Patient presents with: F/U 6 Month HPI Jayden Craig is a 83 year old male who presents here today for 6 month follow up. Here today with for routine follow up and lab review. GI/Uro - Ongoing issues chronic abdominal pain. Was scheduled to have repair incisional hernia surgery on 05/06/24, but this was cancelled due to needing further Cardiac work up of Echo and Stress Test. This is scheduled on 05/22/24. notes that pt woke up yesterday morning with extreme nausea for 1.5 hours, causing patient to gag. Wondering if there is something he can take to help with nausea. Has previously seen Gastro at [facility], but not anything recently. Reports they will not travelback to [facility]. 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 Hx of Gi bleed, with anemia. Labs monitored. Hx of low phosphorus and sodium. Lipid: Taking Zocor 80 mg daily. Tolerating well. Tries to watch diet, able to eat but it's less. Denies much exercise due to SOB. Thyroid: Taking Synthroid 200 mcg daily. No missed dosages. HTN & A-fib: Denies checking BP at home. Denies any chest pain or dizziness. No unusual sob, but notes some increased sob. Has had several episodes of syncope that caused him to go to the ED. Taking Lopressor 25 mg BID. Cardiology recent d/c pt's Lisinopril 10 mg. Asthma/COPD: Pt has chronic sob, but feels it's getting worse. States he can hear a rattle in his chest. Currently taking Breyna 2 puffs po bid and Albuterol Inhaler 2 puff po prn. Is currently finishing his Advair Rx. Chronic back pain, takes Tylenol. Was unable to complete MRI for left shoulder, that he injured dueto recent fall. Currently doing PT at [facility]. HM - Shinges/RSV vaccine through Pharmacy due to Medicare. Declines Covid vaccine today, will obtain in the fall. Has Adv Dir/Living Will scanned into chart. Past medical history, appointments, medications, allergies reviewed. 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 CAD (coronary artery disease) Constipation Essential hypertension Fatigue, unspecified type H/O ventral hernia repair 04/03/2023 Hiatal hernia 1989 History of coronary artery bypass graft 07/24/2018 VASQUES in situ mammary end to side mid LAD, Vein graft ascending aorta end to side RCA, Vein graft ascending aorta end to side obtuse marginal 1 Hyperlipidemia Peptic ulcer, unspecified site, unspecified as acute or chronic, without mention of hemorrhage, perforation, or obstruction 2004 Unspecified hypothyroidism 1989 Previous Surgical History PAST SURGICAL HISTORY Procedure Laterality Date ANES HRNA RPR UPR ABD LMBR&VENTRAL HERNIA&DEHISC 04/03/[address] Regina Oswald APPENDECTOMY COLONOSCOPY FLX DX W/COLLJ SPEC WHEN PFRMD 06/28/2004 Colonoscopy COLONOSCOPY FLX DX W/COLLJ SPEC WHEN PFRMD 08/06/2015 Colonoscopy CORONARY ARTERY BYPASS GRAFT HX 07/24/2018 VASQUES in situ mammary end to side mid LAD, Vein graft ascending aorta end to side RCA, Vein graft ascending aorta end to side obtuse marginal 1. EGD N/A 06/29/2020 Dr. Keating EGD 05/31/2021 EGD TRANSORAL BIOPSY SINGLE/MULTIPLE 08/30/2009 EGD TRANSORAL BIOPSY SINGLE/MULTIPLE 08/23/2011 repeat in 2 years ESOPHAGOGASTRODUODENOSCOPY TRANSORAL DIAGNOSTIC 10/06/1998 EGD ESOPHAGOGASTRODUODENOSCOPY TRANSORAL DIAGNOSTIC 01/29/2000 EGD ESOPHAGOGASTRODUODENOSCOPY TRANSORAL DIAGNOSTIC 08/04/2003 EGD ESOPHAGOGASTRODUODENOSCOPY TRANSORAL DIAGNOSTIC 08/29/2007 EGD ESOPHAGOGASTRODUODENOSCOPY TRANSORAL DIAGNOSTIC 08/28/2013 EGD ESOPHAGOGASTRODUODENOSCOPY TRANSORAL DIAGNOSTIC 10/08/2017 EGD HEART SURGERY HX HIATAL HERNIA REPAIR HX 08/24/2022 Laparoscopic paraesophageal hernia repair with gastropexy, Primary repair of ventral hernia, EGD LAPAROSCOPIC CHOLECYSTECTOMY 12/15/2018 PAST SURGICAL HISTORY OF N/A 04/25/2017 Back surgery done at [facility], [address] [place] [address] and cleaned up arthritis REPAIR UMBILICAL HERNIA 08/24/2022 Family History FAMILY HISTORY Problem Relation Age of Onset Emphysema Father Emphysema Mother other (no cardiac hx per pt) Other Patient Allergies ALLERGIES Allergen Reactions Lipitor [Atorvastat* Intolerance myalgias Omnicef [Cefdinir] Diarrhea Zithromax [Azithrom* Current Medications Current Outpatient Medications on File Prior to Visit Medication Sig budesonide-formoterol (BREYNA) 80-4.5 mcg/actuation inhaler Inhale 2 Puffs as instructed two times a day. fluticasone (FLONASE) 50 mcg/actuation nasal spray Use 2 Sprays in each nostril once daily. Rinse mouth after use. albuterol HFA (PROVENTIL HFA, VENTOLIN HFA) 90 mcg/actuation inhaler Inhale 2 Puffs as instructed every 4 hours as needed for wheezing/shortness of breath. tamsulosin (FLOMAX) 0.4 mg TAKE 1 CAPSULE BY MOUTH EVERYDAY AT BEDTIME levothyroxine (LEVOXYL) 175 mcg tablet Take 1 tablet by mouth once daily. Take on empty stomach. For thyroid. metoprolol tartrate, short acting, (LOPRESSOR) 25 mg tablet Take 1 tablet by mouth two times a day. lisinopril (ZESTRIL) 10 mg tablet take 1 tablet by mouth every day simvastatin (ZOCOR) 80 mg tablet take 1 tablet by mouth everyday at bedtime pantoprazole DR (PROTONIX) 40 mg tablet Take 1 tablet by mouth two times a day. Take on empty stomach, 1/2 hr before meal. aspirin, enteric coated (ASPIRIN, ENTERIC COATED) 325 mg EC tablet Take 1 tablet by mouth once daily. magnesium oxide (MAG-OX) 400 mg (241.3 mg magnesium) tablet Take 1 tablet by mouth once daily. acetaminophen (TYLENOL) 325 mg tablet Take 2 tablets by mouth every 4 hours as needed. THERAPEUTIC MULTIVITAMIN TAB Take 1 tablet by mouth once daily. No current facility-administered medications on file prior to visit. Social History Social History Tobacco Use Smoking status: Former Current packs/day: 0.00 Average packs/day: 0.5 packs/day for 27.0 years (13.5 ttl pk-yrs) Types: Cigarettes Start date: 1954 Quit date: 1981 Years since quittin.2 Smokeless tobacco: Never Vaping Use Vaping status: Never Used Substance Use Topics Alcohol use: Not Currently Drug use: Never EXAM: BP 102/64 (BP Site: Left Arm, BP Position: Sitting, BP Cuff Size: Regular Adult) Pulse 78 Resp 20 Wt 79.4 kg (175 lb 0.7 oz) BMI 25.85 kg/m General Appearance: Well appearing, alert, in no acute distress, well-hydrated, well nourished.. Lungs: Lungs clear to auscultation. No wheezing, rhonchi, rales.. Heart: RRR without murmur, gallop, or rubs. No ectopy. Health Maintenance List Shingrix Vaccine(1 of 2) Never done DTaP,Tdap,Td Vaccine(3 - Td or Tdap) due on 05/29/2017 RSV Vaccine(1 - 1-dose 75+ series) Never done Colorectal Cancer Screening due on 12/27/2017 Advance Directive Discussion due on 02/13/2024 Covid-19 Vaccine( season) due on 05/15/2024 Depression Screening due on 07/11/2024 Anxiety Screening due on 07/11/2024 LDL Cholesterol due on 05/15/2025 Diabetes Screening due on 05/16/2027 Spirometry Completed Influenza Vaccine Completed Pneumococcal Vaccine: 50+ Completed Data reviewed Appointment on 05/15/2024 Component Date Value Cholesterol, Total 05/15/2024 134 Triglyceride 05/15/2024 49 HDL Cholesterol 05/15/2024 69 Non HDL Cholesterol 05/15/2024 65 Fasting Time 05/15/2024 12 VLDL Cholesterol 05/15/2024 10 TC:HDL Ratio 05/15/2024 1.94 LDL Cholesterol 05/15/2024 55 LDL:HDL Ratio 05/15/2024 0.80 Protein, Total 05/15/2024 6.8 Albumin 05/15/2024 4.0 Calcium, Total 05/15/2024 9.1 Bilirubin, Total 05/15/2024 0.5 Alkaline Phosphatase 05/15/2024 96 AST 05/15/2024 27 ALT 05/15/2024 17 Glucose 05/15/2024 120 (H) BUN 05/15/2024 9 Creatinine 05/15/2024 0.76 Sodium 05/15/2024 130 (L) Potassium 05/15/2024 4.4 Chloride 05/15/2024 96 (L) CO2 05/15/2024 21 (L) Anion Gap 05/15/2024 13 Estimated Glomerular Heri* 05/15/2024 90 TSH 05/15/2024 2.530 WBC 05/15/2024 4.98 RBC 05/15/2024 3.95 (L) Hemoglobin 05/15/2024 10.1 (L) Hematocrit 05/15/2024 31.7 (L) MCV 05/15/2024 80.3 MCH 05/15/2024 25.6 (L) MCHC 05/15/2024 31.9 RDW-CV 05/15/2024 15.2 (H) Platelet Count 05/15/2024 155 MPV 05/15/2024 11.8 Appointment on 03/21/2024 Component Date Value TSH 03/21/2024 2.630 ASSESSMENT/PLAN: 1. Acquired hypothyroidism - ICD9: 244.9, ICD10: E03.9 (primary diagnosis) - Instructed patient on importance of taking on an empty stomach either first thing in the morning or at bedtime. - continue current dose of Synthroid 2. Essential hypertension - ICD9: 401.9, ICD10: I10 - Controlled - Continue current medications - Recommend home blood pressure monitoring, to bring results to next visit - Encouraged sodium restriction, DASH or Mediterranean diet - Recommend regular aerobic exercise 3. Mixed hyperlipidemia - ICD9: 272.2, ICD10: E78.2 - Controlled - Continue current medications - Counseled on healthy diet and regular exercise 4. 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 Hx of CABG - ICD9: V45.81, ICD10: Z95.1 6. Paroxysmal atrial fibrillation (HCC) - ICD9: 427.31, ICD10: I48.0 7. Mild intermittent asthma without complication (HCC) - ICD9: 493.90, ICD10: J45.20 8. Anemia, unspecified type - ICD9: 285.9, ICD10: D64.9 9. COPD, mild (HCC) - ICD9: 496, ICD10: J44.9 10. 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 Gastroesophageal reflux disease with esophagitis, unspecified whether hemorrhage - ICD9: 530.11, ICD10: K21.00 12. Chronic abdominal pain - ICD9: 789.00, 338.29, ICD10: R10.9, G89.29 13. Umbilical hernia without obstruction or gangrene - ICD9: 553.1, ICD10: K42.9 14. Rectus diastasis - ICD9: 728.84, ICD10: M62.08 15. Nausea - ICD9: 787.02, ICD10: R11.0 Zofran prn for nausea - ONDANSETRON HCL 4 MG TABLET Follow up prn Medical Decision Making: Problems: Moderate: 2+ stable chronic illnesses Risk: Moderate: Drug management Medical Decision Making Level: 4 - Moderate Eloisa Espinal MD documented in this encounterOhio[facility]25 NoteHNO ID: [id number] Author: ELOISA ESPINAL MD Service: ? Author Type: Physician Type: Progress Notes Filed: 05/16/2024 11:52 Note Text: Chief Complaint Patient presents with: F/U 6 Month HPI Jayden Craig is a 83 year old male who presents here today for 6 month follow up. Here today with for routine follow up and lab review. GI/Uro - Ongoing issues chronic abdominal pain. Was scheduled to have repair incisional hernia surgery on 05/06/24, but this was cancelled due to needing further Cardiac work up of Echo and Stress Test. This is scheduled on 05/22/24. notes that pt woke up yesterday morning with extreme nausea for 1.5 hours, causing patient to gag. Wondering if there is something he can take to help with nausea. Has previously seen Gastro at [facility], but not anything recently. Reports they will not travel back to [facility]. 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 Hx of Gi bleed, with anemia. Labs monitored. Hx of low phosphorus and sodium. Lipid: Taking Zocor 80 mg daily. Tolerating well. Tries to watch diet, able to eat but it's less. Denies much exercise due to SOB. Thyroid: Taking Synthroid 200 mcg daily. No missed dosages. HTN AND A-fib: Denies checking BP at home. Denies any chest pain or dizziness. No unusual sob, but notes some increased sob. Has had several episodes of syncope that caused him to go to the ED. Taking Lopressor 25 mg BID. Cardiology recent d/c pt's Lisinopril 10 mg. Asthma/COPD: Pt has chronic sob, but feels it's getting worse. States he can hear a rattle in his chest. Currently taking Breyna 2 puffs po bid and Albuterol Inhaler 2 puff po prn. Is currently finishing his Advair Rx. Chronic back pain, takes Tylenol. Was unable to complete MRI for left shoulder, that he injured due to recent fall. Currently doing PT at [facility]. HM - Shinges/RSV vaccine through Pharmacy due to Medicare. Declines Covid vaccine today, will obtain in the fall. Has Adv Dir/Living Will scanned into chart. Past medical history, appointments, medications, allergies reviewed. 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 Regina Oswald APPENDECTOMY COLONOSCOPY FLX DX W/COLLJ SPEC WHEN PFRMD 06/28/2004 Colonoscopy COLONOSCOPY FLX DX W/COLLJ SPEC WHEN PFRMD 08/06/2015 Colonoscopy CORONARY ARTERY BYPASS GRAFT HX 07/24/2018 VASQUES in situ mammary end to side mid LAD, Vein graft ascending aorta end to side RCA, Vein graft ascending aorta end to side obtuse marginal 1. EGD N/A 06/29/2020 Dr. Keating EGD 05/31/2021 EGD TRANSORAL BIOPSY SINGLE/MULTIPLE 08/30/2009 EGD TRANSORAL BIOPSY SINGLE/MULTIPLE 08/23/2011 repeat in 2 years ESOPHAGOGASTRODUODENOSCOPY TRANSORAL DIAGNOSTIC 10/06/1998 EGD ESOPHAGOGASTRODUODENOSCOPY TRANSORAL DIAGNOSTIC 01/29/2000 EGD ESOPHAGOGASTRODUODENOSCOPY TRANSORAL DIAGNOSTIC 08/04/2003 EGD ESOPHAGOGASTRODUODENOSCOPY TRANSORAL DIAGNOSTIC 08/29/2007 EGD ESOPHAGOGASTRODUODENOSCOPY TRANSORAL DIAGNOSTIC 08/28/2013 EGD ESOPHAGOGASTRODUODENOSCOPY TRANSORAL DIAGNOSTIC 10/08/2017 EGD HEART SURGERY HX HIATAL HERNIA REPAIR HX 08/24/2022 Laparoscopic paraesophageal hernia repair with gastropexy, Primary repair of ventral hernia, EGD LAPAROSCOPIC CHOLECYSTECTOMY 12/15/2018 PAST SURGICAL HISTORY OF N/A 04/25/2017 Back surgery done at [facility], [address] [place] [address] and cleaned up arthritis REPAIR UMBILICAL HERNIA 08/24/2022 Family History FAMILY HISTORY Problem Relation Age of Onset Emphysema Father Emphysema Mother other (no cardiac hx per pt) Other Patient Allergies ALLERGIES Allergen Reactions Lipitor [Atorvastat* Intolerance myalgias Omnicef [Cefdinir] Diarrhea Zithromax [Azithrom* Current Medications Current Outpatient Medications on File Prior to Visit Medication Sig budesonide-formoterol (BREYNA) 80-4.5 mcg/actuation inhaler Inhale 2 Puffs as instructed two times a day. fluticasone (FLONASE) 50 mcg/actuation nasal spray Use 2 Sprays in each nostril once daily. Rinse mouth after use. albutero (more content not included)...[facility]03-31-2025 Telephone encounter Note* Telephone Encounter - Marely Begum MA - 05/12/2024 2:07 PM EDT Updated appt note to discuss. Pt made aware of this. Marely Begum MA [facility]03-31-2025 Miscellaneous Notes* Telephone Encounter - Marely Begum MA - 05/12/2024 2:07 PM EDT Updated appt note to discuss. Pt made aware of this. Marely Begum MA * Telephone Encounter - Marely Begum MA - 05/12/2024 12:29 PM EDT Asked additional information. Wait pt response. Marely Begum MA documented in this encounterOhio[facility]03-31-2025 Telephone encounter Note * Telephone Encounter - Marely Begum MA - 05/12/2024 12:29 PM EDT Asked additional information. Wait pt response. Marely Begum MA [facility]03-24-2025 History of Present illness Narrative* Eloisa Espinal MD - 05/05/2024 2:00 PM EDT Chief Complaint Patient presents with: Hospital Follow Up HPI Jayden Craig is a 83 year old male who presents here today for an ED follow up. Pt here today for ED follow up. Here today with his . Pt presented to [facility] ED on 04/26/24 after a fall. and spouse state that pt fell down the stairs outside of his home and slipped. He fell down 3 stairs and landed on the concrete sidewalk. Now has handrails in place. Sutures were placed in his left hand due to laceration. Had multiple scrapes, but seem to be healing. Pt reports that what bothers him most is his left shoulder. Is scheduled to have an MRI through [facility] on . Pt continues to have significant pain. Pt was d/c home with Percocet, but only using very rarely. Believes they are seeing Dr. Poil Phillips). notes that he's been doing a lot forgetting lately. This has been ongoing for the past 6 months. He will forget what she told him the previous day. GI - Notes waking up over the past 3 weeks couple times a week feeling nauseas. Pt states this lasts for about 5-7 minutes, then passes. [facility] visit: HPI History of Present Illness Chief Complaint: Fall Detail of Chief Complaint: Mechanical fall with injury to head, right and left hand, left knee and lef Informant: patient, spouse/S.O. and family Limited: dementia Onset: Today and Hours Mechanism/Context: Blunt Injury and Fall Location of pain/injuries: - (Left forehead, left shoulder, left and right hand and left knee) Quality of Pain: Dull and Aching Location: Left shoulder and head Current Severity: Mild Maximum Severity: Moderate Worsened by: Shoulder is worse with movement Relieved by: Nothing Associated Symptoms Associated Symptoms: Positive for Amnesia and - (Patient was dazed. He is on aspirin.); Negative for Parasthesias, Weakness, Loss of function, Inability to ambulate or Loss of consciousness Narrative: Patient is a 83-year-old male who had a fall. He sustained injury to his forehead on the left, leftand right hand (radial side of the PIP joint right index finger, hyperthenar eminence of the left palm and tip of the left index finger and ring finger) swelling and contusion of the left shoulder. Patient denies neck pain. Denies paresthesia, anesthesia or motor weakness. Patient denies cardiac or respiratory symptoms. Patient denies GI symptoms and specifically black or maroon-colored stool. Patient is not on any other antithrombotic except aspirin and is not on an anticoagulant. Other Procedures Procedure(s): The laceration palm of left hand was anesthetized with 1% lidocaine for local infiltration. Wound was irrigated with 125 cc of normal saline. The wound was then closed using 5-0 Ethilon. A total of 5 stitches placed. Patient tolerated procedure well. MDM Narrative Medical decision making narrative: Per the Romanian CT head rule imaging of the head is indicated. CT of the head was obtained. Because of his limited range of motion of the shoulder shoulder x- ray was obtained. Differential diagnosisincludes epidural hematoma, subduralhematoma, traumatic subarachnoid hemorrhage and parenchymal contusion. Differential for the shoulder would include fracture, fracture dislocation, rotator cuff injury with fracture or isolated. Radiography Chest X-Ray - ED: Read by ED Physician (Three-view x-ray of the left shoulder independently interpreted by me at 2340 reveals no fracture, subluxation or dislocation. There are some minimal arthriticchanges. There is no widening ofthe AC joint.) Diagnostic Testing: Clinical Impression(s) from Imaging Studies Brain CT 04/25/24 22:53 IMPRESSION: Chronic involutional changes of the brain. No acute intracranial hemorrhage. Reading Location: [facility] Shoulder X-Ray 04/25/24 23:59 IMPRESSION: No fracture or dislocation. Treatment and Re-Evaluation Narrative: Since patient is not able to abduct past 40 degrees suspect he has a rotator cuff tear. He was referred to Dr. Izaiah Armendariz who is on-call for orthopedics no doc. He is placed in a sling Clinical Impression: Concussion with brief LOC, Forehead contusion, Forehead abrasion, Abrasion, left knee, initial encounter, Abrasion of right index finger, initial encounter,Abrasion of left index finger, Laceration of left hand Past medical history, appointments, medications, allergies reviewed. 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 CAD (coronary artery disease) Constipation Essential hypertension Fatigue, unspecified type H/O ventral hernia repair 04/03/2023 Hiatal hernia 1989 History of coronary artery bypass graft 07/24/2018 VASQUES in situ mammary end to side mid LAD, Vein graft ascending aorta end to side RCA, Vein graft ascending aorta end to side obtuse marginal 1 Hyperlipidemia Peptic ulcer, unspecified site, unspecified as acute or chronic, without mention of hemorrhage, perforation, or obstruction 2004 Unspecified hypothyroidism 1989 Previous Surgical History PAST SURGICAL HISTORY Procedure Laterality Date ANES HRNA RPR UPR ABD LMBR&VENTRAL HERNIA&DEHISC 04/03/[address] Regina Oswald APPENDECTOMY COLONOSCOPY FLX DX W/COLLJ SPEC WHEN PFRMD 06/28/2004 Colonoscopy COLONOSCOPY FLX DX W/COLLJ SPEC WHEN PFRMD 08/06/2015 Colonoscopy CORONARY ARTERY BYPASS GRAFT HX 07/24/2018 VASQUES in situ mammary end to side mid LAD, Vein graft ascending aorta end to side RCA, Vein graft ascending aorta end to side obtuse marginal 1. EGD N/A 06/29/2020 Dr. Keating EGD 05/31/2021 EGD TRANSORAL BIOPSY SINGLE/MULTIPLE 08/30/2009 EGD TRANSORAL BIOPSY SINGLE/MULTIPLE 08/23/2011 repeat in 2 years ESOPHAGOGASTRODUODENOSCOPY TRANSORAL DIAGNOSTIC 10/06/1998 EGD ESOPHAGOGASTRODUODENOSCOPY TRANSORAL DIAGNOSTIC 01/29/2000 EGD ESOPHAGOGASTRODUODENOSCOPY TRANSORAL DIAGNOSTIC 08/04/2003 EGD ESOPHAGOGASTRODUODENOSCOPY TRANSORAL DIAGNOSTIC 08/29/2007 EGD ESOPHAGOGASTRODUODENOSCOPY TRANSORAL DIAGNOSTIC 08/28/2013 EGD ESOPHAGOGASTRODUODENOSCOPY TRANSORAL DIAGNOSTIC 10/08/2017 EGD HEART SURGERY HX HIATAL HERNIA REPAIR HX 08/24/2022 Laparoscopic paraesophageal hernia repair with gastropexy, Primary repair of ventral hernia, EGD LAPAROSCOPIC CHOLECYSTECTOMY 12/15/2018 PAST SURGICAL HISTORY OF N/A 04/25/2017 Back surgery done at [facility], [address] [place] [address] and cleaned up arthritis REPAIR UMBILICAL HERNIA 08/24/2022 Family History FAMILY HISTORY Problem Relation Age of Onset Emphysema Father Emphysema Mother other (no cardiac hx per pt) Other Patient Allergies ALLERGIES Allergen Reactions Lipitor [Atorvastat* Intolerance myalgias Omnicef [Cefdinir] Diarrhea Zithromax [Azithrom* Current Medications Current Outpatient Medications on File Prior to Visit Medication Sig budesonide-formoterol (BREYNA) 80-4.5 mcg/actuation inhaler Inhale 2 Puffs as instructed two times a day. fluticasone (FLONASE) 50 mcg/actuation nasal spray Use 2 Sprays in each nostril once daily. Rinse mouth after use. albuterol HFA (PROVENTIL HFA, VENTOLIN HFA) 90 mcg/actuation inhaler Inhale 2 Puffs as instructed every 4 hours as needed for wheezing/shortness of breath. tamsulosin (FLOMAX) 0.4 mg TAKE 1 CAPSULE BY MOUTH EVERYDAY AT BEDTIME levothyroxine (LEVOXYL) 175 mcg tablet Take 1 tablet by mouth once daily. Take on empty stomach. For thyroid. metoprolol tartrate, short acting, (LOPRESSOR) 25 mg tablet Take 1 tablet by mouth two times a day. lisinopril (ZESTRIL) 10 mg tablet take 1 tablet by mouth every day simvastatin (ZOCOR) 80 mg tablet take 1 tablet by mouth everyday at bedtime pantoprazole DR (PROTONIX) 40 mg tablet Take 1 tablet by mouth two times a day. Take on empty stomach, 1/2 hr before meal. aspirin, enteric coated (ASPIRIN, ENTERIC COATED) 325 mg EC tablet Take 1 tablet by mouth once daily. magnesium oxide (MAG-OX) 400 mg (241.3 mg magnesium) tablet Take 1 tablet by mouth once daily. acetaminophen (TYLENOL) 325 mg tablet Take 2 tablets by mouth every 4 hours as needed. THERAPEUTIC MULTIVITAMIN TAB Take 1 tablet by mouth once daily. No current facility-administered medications on file prior to visit. Social History Social History Tobacco Use Smoking status: Former Current packs/day: 0.00 Average packs/day: 0.5 packs/day for 27.0 years (13.5 ttl pk-yrs) Types: Cigarettes Start date: 1954 Quit date: 1982 Years since quittin.2 Smokeless tobacco: Never Vaping Use Vaping status: Never Used Substance Use Topics Alcohol use: Not Currently Drug use: Never EXAM: BP 112/68 (BP Site: Right Arm, BP Position: Sitting, BP Cuff Size: Regular Adult) Pulse 82 Resp20 Wt 80.6 kg (177 lb 11.1 oz) BMI 26.24 kg/m General Appearance: Well appearing, alert, in no acute distress, well-hydrated, well nourished.. Skin: sutures removed from laceration left palm without difficulty. Health Maintenance List Shingrix Vaccine(1 of 2) Never done DTaP,Tdap,Td Vaccine(3 - Td or Tdap) due on 05/29/2017 RSV Vaccine(1 - 1-dose 75+ series) Never done Colorectal Cancer Screening due on 12/27/2017 Advance Directive Discussion due on 02/13/2024 Covid-19 Vaccine( season) due on 05/15/2024 Depression Screening due on 07/11/2024 Anxiety Screening due on 07/11/2024 LDL Cholesterol due on 11/13/2024 Diabetes Screening due on 11/12/2026 Spirometry Completed Influenza Vaccine Completed Pneumococcal Vaccine: 50+ Completed Data reviewed [employer] Everywhere ASSESSMENT/PLAN: 1. Hospital discharge follow-up - ICD9: V67.59, ICD10: Z09 (primary diagnosis) 2. Fall, sequela - ICD9: 909.4, E929.3, ICD10: W19.XXXS Discussed avoiding falls; have installed hand rail 3. Visit for suture removal - ICD9: V58.32, ICD10: Z48.02 Done; continue wound care 4. Injury of left shoulder, subsequent encounter - ICD9: V58.89, 959.2, ICD10: S49.92XD Follow with Ortho as planned 5. Memory issues Monitor for now Follow up prn Medical Decision Making: Problems: Low: Acute, uncomplicated illness or injury Risk: Low: Low risk from testing/treatment Medical Decision Making Level: 3 - Low Eloisa Espinal MD documented in this encounterOhio[facility]03-24-2025 NoteHNO ID: [id number] Author: ELOISA EPSINAL MD Service: ? Author Type: Physician Type: Progress Notes Filed: 05/05/2024 15:43 Note Text: Chief Complaint Patient presents with: Hospital Follow Up HPI Jayden Craig is a 83 year old male who presents here today for an ED follow up. Pt here today for ED follow up. Here today with his . Pt presented to [facility] ED on 04/26/24 after a fall. and spouse state that pt fell down the stairs outside of his home and slipped. He fell down 3 stairs and landed on the concrete sidewalk. Now has handrails in place. Sutures were placed in his left hand due to laceration. Had multiple scrapes, but seem to be healing. Pt reports that what bothers him most is his left shoulder. Is scheduled to have an MRI through [facility] on . Pt continues to have significant pain. Pt was d/c home with Percocet, but only using very rarely. Believes they are seeing Dr. Ashton (Yann). notes that he's been doing a lot forgetting lately. This has been ongoing for the past 6 months. He will forget what she told him the previous day. GI - Notes waking up over the past 3 weeks couple times a week feeling nauseas. Pt states this lasts for about 5-7 minutes, then passes. [facility] visit: HPI History of Present Illness Chief Complaint: Fall Detail of Chief Complaint: Mechanical fall with injury to head, right and left hand, left knee and lef Informant: patient, spouse/S.O. and family Limited: dementia Onset: Today and Hours Mechanism/Context: Blunt Injury and Fall Location of pain/injuries: - (Left forehead, left shoulder, left and right hand and left knee) Quality of Pain: Dull and Aching Location: Left shoulder and head Current Severity: Mild Maximum Severity: Moderate Worsened by: Shoulder is worse with movement Relieved by: Nothing Associated Symptoms Associated Symptoms: Positive for Amnesia and - (Patient was dazed. He is on aspirin.); Negative for Parasthesias, Weakness, Loss of function, Inability to ambulate or Loss of consciousness Narrative: Patient is a 83-year-old male who had a fall. He sustained injury to his forehead on the left, left and right hand (radial side of the PIP joint right index finger, hyperthenar eminence of the left palm and tip of the left index finger and ring finger) swelling and contusion of the left shoulder. Patient denies neck pain. Denies paresthesia, anesthesia or motor weakness. Patient denies cardiac or respiratory symptoms. Patient denies GI symptoms and specifically black or maroon-colored stool. Patient is not on any other antithrombotic except aspirin and is not on an anticoagulant. Other Procedures Procedure(s): The laceration palm of left hand was anesthetized with 1% lidocaine for local infiltration. Wound was irrigated with 125 cc of normal saline. The wound was then closed using 5-0 Ethilon. A total of 5 stitches placed. Patient tolerated procedure well. MDM Narrative Medical decision making narrative: Per the Romanian CT head rule imaging of the head is indicated. CT of the head was obtained. Because of his limited range of motion of the shoulder shoulder x-ray was obtained. Differential diagnosis includes epidural hematoma, subduralhematoma, traumatic subarachnoid hemorrhage and parenchymal contusion. Differential for the shoulder would include fracture, fracture dislocation, rotator cuff injury with fracture or isolated. Radiography Chest X-Ray - ED: Read by ED Physician (Three-view x-ray of the left shoulder independently interpreted by me at 2340 reveals no fracture, subluxation or dislocation. There are some minimal arthritic changes. There is no widening ofthe AC joint.) Diagnostic Testing: Clinical Impression(s) from Imaging Studies Brain CT 04/25/24 22:53 IMPRESSION: Chronic involutional changes of the brain. No acute intracranial hemorrhage. Reading Location: [facility] Shoulder X-Ray 04/25/24 23:59 IMPRESSION: No fracture or dislocation. Treatment and Re-Evaluation Narrative: Since patient is not able to abduct past 40 degrees suspect he has a rotator cuff tear. He was referred to Dr. Izaiah Armendariz who is on-call for orthopedics no doc. He is placed in a sling Clinical Impression: Concussion with brief LOC, Forehead contusion, Forehead abrasion, Abrasion, left knee, initial encounter, Abrasion of right index finger, initial encounter,Abrasion of left index finger, Laceration of left hand Past medical history, appointments, medications, allergies reviewed. 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 .Rama Olivarez LPN [facility]03-20-2025 Telephone encounter Note* Telephone Encounter - Steff Mckeon RN - 05/01/2024 8:13 AM EDT Images from the original note were not included. Varun Black; Gen Surg Hood Yonathan Pool21 hours ago (10:21 AM) [facility] called and cancelled, patient also fell and has some other things going on. will call and reschedule when he is cleared and had all testing complete. Above message noted. Encounter closed. [facility]03-20-2025 Miscellaneous Notes* Telephone Encounter - Steff Mcekon RN - 05/01/2024 8:13 AM EDT Images from the original note were not included. Varun Black; Gen Surg Hood Yonathan Pool21 hours ago (10:21 AM) [facility]LEEN called and cancelled, patient also fell and has some other things going on. will call and reschedule when he is cleared and had all testing complete. Above message noted. Encounter closed. * Telephone Encounter - Steff Mckeon RN - 04/29/2024 2:41 PM EDT Images from the original note were not included. Annette Sumner APRN.[place] You9 minutes ago (2:31 PM) KB Patient saw [facility] on 04/02 who was aware of pending cardiac work up and advised patient needs to complete the work up prior to being optimized for the procedure. He will need to postpone surgery until cardiac work up is complete. Annette Sumner APRN.CNP Message routed to industrial electrical technician. * Telephone Encounter - Steff Mckeon RN - 04/29/2024 11:42 AM EDT Cardiology Clearance not done yet. Surgery scheduled for 05/06/[address] Bynum. Please see message below. * Telephone Encounter - Regina Cárdenas MA - 04/29/2024 9:54 AM EDT Aury calling and states is scheduled for hernia surgery next Saturday 05/06. Her recently saw a new worship director at [facility] and ordered an Echo and stress test. had a triplebypass 2-3 years ago. She is waiting to hear back to get scheduled. She thought it was going to be done sometime this week.They have not scheduled a PAT appointment due to waiting to seen when he getscheduled for the testing. is asking if they should cancel his surgery until the cardiac testing has been completed? Patient also had a fall down their steps at home and has sutures in his forehead and injured his shoulder. Thinks he may have torn his rotator cuff. He is scheduled with his PCPto have removed on Sunday. [facility] Telephone encounter Note * Telephone Encounter - Steff Mckeon RN - 04/29/2024 2:41 PM EDT Images from the original note were not included. nAnette Sumner APRN.TRANSFER AND PUMPHOUSE OPERATOR CHIEF You9 minutes ago (2:31 PM) KB Patient saw [facility] on 04/02 who was aware of pending cardiac work up and advised patient needs to complete the work up prior to being optimized for the procedure. He will need to postpone surgery until cardiac work up is complete. Annette Sumner APRN.TRANSFER AND PUMPHOUSE OPERATOR CHIEF Message routed to industrial electrical technician. [facility]03-18[facility] Telephone encounter Note* Telephone Encounter - Steff Mckeon RN - 04/29/2024 11:42 AM EDT Cardiology Clearance not done yet. Surgery scheduled for 05/06/[address] Bynum. Please see message below. [facility]03-18-[facility]25 Telephone encounter Note* Telephone Encounter - Regina Cárdenas MA - 04/29/2024 9:54 AM EDT Aury calling and states is scheduled for hernia surgery next Saturday 05/06. Her recently saw a new worship director at [facility] and ordered an Echo and stress test. had a triplebypass 2-3 years ago. She is waiting to hear back to get scheduled. She thought it was going to be done sometime this week.They have not scheduled a PAT appointment due to waiting to seen when he getscheduled for the testing. is asking if they should cancel his surgery until the cardiac testing has been completed? Patient also had a fall down their steps at home and has sutures in his forehead and injured his shoulder. Thinks he may have torn his rotator cuff. He is scheduled with his PCPto have removed on Sunday. [facility]03-17-20[facility] Telephone encounter Note* Telephone Encounter - Rama Olivarez LPN - 04/28/2024 1:44 PM EDT Called and spoke with [facility] scheduling. They have the orders for the stress test and Echo from Cardiology but they have not yet called the patient to schedule the testing. Rama Olivarez LPN [facility]03-15-2025 Discharge summary [facility] Medical Records Department [address] [place] [address] Emergency Department Summary 04/26/24 MR#: [id number] Acct: [id number] Name: JAYDEN CRAIG Rep #:[id number] : 1940 83 From: Dave Velasco MD PCP: Dr. Eloisa Espinal MD Status:RE G ER Location: ED HPI History of Present Illness Chief Complaint: Fall Detail of Chief Complaint: Mechanical fall with injury to head, right and left hand, left knee and lef Informant: patient, spouse/S.O. and family Limited: dementia Onset/Context/Timing Onset: Today and Hours Mechanism/Context: Blunt Injury and Fall Location of pain/injuries: - (Left forehead, left shoulder, left and right hand and left knee) Quality of Pain: Dull and Aching Location: Left shoulder and head Current Severity: Mild Maximum Severity: Moderate Worsened by: Shoulder is worse with movement Relieved by: Nothing Associated Symptoms Associated Symptoms: Positive for Amnesia and - (Patient was dazed. He is on aspirin.); Negative for Parasthesias, Weakness, Loss of function, Inability to ambulate or Loss of consciousness Narrative Narrative: Patient is a 83-year-old male who had a fall. He sustained injury to his forehead on the left, leftand right hand (radial side of the PIP joint right index finger, hyperthenar eminence of the left palm and tip of the left index finger and ring finger) swelling and contusion of the left shoulder. Patient denies neck pain. Denies paresthesia, anesthesia or motor weakness. Patient denies cardiac or respiratory symptoms. Patient denies GI symptoms and specifically black or maroon-colored stool. Patient is not on any other antithrombotic except aspirin and is not on an anticoagulant. He has a history of COPD, dyslipidemia, hypertension, paroxysmal atrial fibrillation after coronarybypass surgery, acquired hypothyroidism and cholecystitis status postcholecystectomy. 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 Acquired hypothyroidism Abdominal wall hernia Atherosclerosis of coronary artery of [place] heart without angina pectoris Hiatal hernia Hypothyroidism Escobedo's esophagus GERD (gastroesophageal reflux disease) DDD (degenerative disc disease), lumbar Home Medications ?Medication ?Instructions ?Recorded ?Last Taken ?Type acetaminophen 325 mg tablet 650 mg PO Q4H PRN Pain Or Fever 12/09/18 Unknown History aspirin 81 mg tablet,delayed 81 mg PO DAILY 12/09/18 U nknown History release (Adult Aspirin Regimen) magnesium oxide 400 mg PO DAILY 10/28/19 Unk nown History multivitamin 1 tab PO QAM 12/09/18 Unknow n History pantoprazole 40 mg tablet,delayed 40 mg PO BID 9 Unknown History release simvastatin 80 mg tablet 80 mg PO QHS cholesterol Unknown History fluticasone propionate 115 2 inh inhalation BID sob Unknown History mcg-salmeterol 21 mcg/actuation HFA inhaler (Advair HFA) fluticasone propionate 50 2 ea intranasal BID stuffine ss 09/17/21 Unknown History mcg/actuation nasal spray,suspension ibuprofen 200 mg tablet 200 mg PO Q6H PRN pain #30 t abs 01/01/23 Unknown Rx levothyroxine 175 mcg tablet 175 mcg PO DAILY disorder of 06/30/23 Unknown History thyroid gland metoprolol tartrate 25 mg tablet 25 mg PO BID 06/30/23 Unknown History tamsulosin 0.4 mg capsule 0.4 mg PO QHS 06/30/23 Unkno wn History albuterol sulfate 90 mcg/actuation 2 puff inhalation Q 4-6H PRN 04/15/24 Unknown History aerosol inhaler shortness of breath or wheez ing Allergy/AdvReac Type Severity Reaction Status Date / Time cefdinir (From Omnicef) Allergy Intermediate Diarrhea Verified 04/25/24 21:39 atorvastatin AdvReac Intermediate myalgias Verified 04/25/24 21:39 azithromycin (From Zithromax) AdvReac Nausea/Vom/ Verified 04/25/24 21:39 Diarrhea Family History Mother Emphysema of lung Father Emphysema of lung Surgical History History of ventral hernia repair Hx laparoscopic cholecystectomy History of repair of hiatal hernia History of umbilical hernia repair 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) History of back surgery (~04/25/17) Social History Smoking Status: Former smoker quit date: 02/12/81 pack-years: 13 Tobacco: How many years used: 27 Electronic Cigarette Use: not used how long ago did patient quit smokin years ago alcohol intake: former substance use type: does not use ROS ROS ED Constitutional Constitutional ED: Denies chills, fever(s), subjective, sweats or weight loss Eyes Eyes: Denies blurry vision or change in vision ENT ENT ED: Denies ear pain, rhinorrhea or sore throat Cardiovascular Cardiovascular: Denies chest pain, palpitations or paroxysmal nocturnal dyspnea Respiratory/Chest Respiratory/Chest: Denies cough, dyspnea, dyspnea on exertion or paroxysmal nocturnal dyspnea Gastrointestinal Gastrointestinal: Denies abdominal pain, nausea or vomiting Genitourinary Genitourinary ED: Denies hematuria Musculoskeletal Musculoskeletal: Denies back pain or neck pain Integumentary Reports Abrasions Neurologic Neurologic: Reports headache(s); Denies paresthesias Endocrine Endocrinology: Denies cold intolerance or heat intolerance Hematologic/Lymphatic Hematologic/Lymphatic: Reports easy bruising; Denies easy bleeding EXAM Physical Exam Const Vital Signs: 04/25/24 21:39 04/25/24 23:30 04/25/24 23:34 Temperature 98.2 F 98 F Temperature Source Oral Oral Pulse Rate 78 99 Respiratory Rate 16 17 Respiratory Effort Normal Respiratory Depth Normal Respiratory Pattern Normal Blood Pressure 124/67 H 159/89 H Blood Pressure Mean 86 112 Pulse Ox 98 97 Oxygen Delivery Method Room Air Room Air 04/26/24 01:00 04/26/24 03:00 Temperature Temperature Source Pulse Rate 96 96 Respiratory Rate 20 H 17 Respiratory Effort Respiratory Depth Respiratory Pattern Blood Pressure 160/94 H 162/83 H Blood Pressure Mean 116 109 Pulse Ox 95 97 Oxygen Delivery Method Room Air Room Air Positive well nourished and well developed General Appearance ED: well developed and NAD HEENT HEENT Narrative: Abrasion left side of the forehead. There is no palp depression. There is no clinic signs of basilar skull fracture. There is no septal deviation hematoma. There is no dental trauma. Posterior pharynx is normal. Eyes PERRL and EOMs intact bilaterally General Eye ED: Yes other Other Details: There is no subconjunctival hemorrhage. There is no nystagmus. Neck full ROM General: Negative for tenderness Chest Wall inspection of chest normal and palpation of chest normal Resp normal respiratory effort and clear to auscultation bilaterally Cardio regular rhythm, S1 normal heart sound and S2 normal heart sound; Negative for nomurmurs Rate: regular rate GI normal to inspection, nondistended, normoactive bowel sounds, non-tender, non- distended and no masses Back/Spine normal to inspection and no thoracic nor lumbar tenderness Extremity Extremity Narrative: Skin avulsion radial side PIP joint of the right index finger. Extensor and flexor mechanism intact. There is no subungual hematoma noted. There is no neurovascular compromise Patient has a curvilinear laceration hypothenar eminence of the left palm. Thismeasures 2 cm. He also has abrasion tip of the left index and ring finger. There is no subungual hematoma. The extensor and flexor mechanism is intact. Examination shoulder reveals swelling. He is unable to AB duct. He complains of significant pain with movement. Patient has abrasion over the left patella. He is able to flex and extend. There is no laxity varusvalgus stress testing. There is no effusion. The patella is not ballotable. General Extremety ED: Yes tenderness; Negative for deformity General Extremity: Negative for deformity Neuro No oriented x3, CN's II-XII intact bilaterally, moves all extremities, no focal motor deficits and no sensory deficits noted Nicholas Coma Scale: document GCS findings Spontaneous Obeys Commands Sensorium / Orientation: alert Motor Exam: strength 5/5 throughout Deep Tendon Reflexes: Rt Triceps (C7): 2+, Lt Triceps (C7): 2+, Rt Biceps (C5, C6): 2+, Lt Biceps (C5, C6): 2+, Rt Brachioradialis (C6): 2+, Lt Brachioradialis(C6): 2+, Rt Patellar (L4): 2+, Lt Patellar (L4): 2+, Rt Ankle (S1): 2+ and Lt Ankle (S1): 2+ Deep Tendon Reflexes Back: Rt Patellar (L4): 2+, Lt Patellar (L4): 2+, Rt Ankle (S1): 2+ and Lt Ankle (S1): 2+ Plantar Reflex: Downgoing: bilateral Psych mental status grossly normal and thought process normal Skin no rashes or lesions noted, skin turgor normal and No no jaundice Skin Narrative: Documented other portions of the EMR. PROC Procedures Other Procedures Procedure(s): The laceration palm of left hand was anesthetized with 1% lidocaine for local infiltration. Wound was irrigated with 125 cc of normal saline. The wound was then closed using 5-0 Ethilon. A total of 5 stitches placed. Patient tolerated procedure well. MDM MDM MDM Narrative Medical decision making narrative: Per the Romanian CT head rule imaging of the head is indicated. CT of the head was obtained. Because of his limited range of motion of the shoulder shoulder x- ray was obtained. Differential diagnosisincludes epidural hematoma, subduralhematoma, traumatic subarachnoid hemorrhage and parenchymal contusion. Differential for the shoulder would include fracture, fracture dislocation, rotator cuff injury with fracture or isolated. Radiography Chest X-Ray - ED: Read by ED Physician (Three-view x-ray of the left shoulder independently interpreted by me at 2340 reveals no fracture, subluxation or dislocation. There are some minimal arthriticchanges. There is no widening ofthe AC joint.) Diagnostic Testing: Clinical Impression(s) from Imaging Studies Brain CT 04/25/24 22:53 IMPRESSION: Chronic involutional changes of the brain. No acute intracranial hemorrhage. Reading Location: [facility] Shoulder X-Ray 04/25/24 23:59 IMPRESSION: No fracture or dislocation. Reading Location: [facility] Treatment and Re-Evaluation Narrative: Since patient is not able to abduct past 40 degrees suspect he has a rotator cuff tear. He was referred to Dr. Izaiah Armendariz who is on-call for orthopedics no doc. He is placed in a sling. Discharge Plan Triage Chief Complaint: Fall ED Provider: Dave Velasco Dx/Rx/DC Orders Clinical Impression: Concussion with brief LOC, Forehead contusion, Forehead abrasion, Abrasion, left knee, initial encounter, Abrasion of right index finger, initial encounter,Abrasion of left index finger, Laceration of left hand Instructions: ED Abrasion, ED Concussion, ED Laceration, Hand: All Closures Prescriptions: No Action aspirin [Adult Aspirin Regimen] 81 mg tablet,delayed release (DR/EC) 81 mg PO DAILY magnesium oxide 400 mg magnesium capsule 400 mg PO DAILY acetaminophen 325 mg tablet 650 mg PO Q4H PRN (Reason: Pain Or Fever) multivitamin Tablet 1 tab PO QAM simvastatin 80 mg tablet 80 mg PO QHS albuterol sulfate 90 mcg/actuation HFA aerosol inhaler 2 puff inhalation Q4-6H PRN (Reason: shortness of breath or wheezing) pantoprazole 40 mg tablet,delayed release (DR/EC) 40 mg PO BID fluticasone propion-salmeterol [Advair HFA] 115-21 mcg/actuation HFA aerosol inhaler 2 inh INHALATION BID Patient Comments: INHALE 2 PUFFS INSTRUCTED TWICE DAILY. RINSE MOUTH AFTER USE. fluticasone propionate 50 mcg/actuation spray,suspension 2 ea INTRANASAL BID Patient Comments: USE 2 SPRAYS IN EACH NOSTRIL ONCE DAILY. RINSE MOUTH AFTER USE. ibuprofen 200 mg tablet 200 mg PO Q6H PRN (Reason: pain) Qty: 30 0RF levothyroxine 175 mcg tablet 175 mcg PO DAILY tamsulosin 0.4 mg capsule 0.4 mg PO QHS metoprolol tartrate 25 mg tablet 25 mg PO BID Primary Care Provider: Eloisa Espinal Referrals: Eloisa Espinal MD [Primary Care Provider] - 10 Day for suture removal Activity Restrictions/Additional Instructions: 1. Apply bacitracin ointment twice a day to the abrasions of your forehead, hand and knee. 2. Sutures to be removed in 10 days Print Language: Kyrgyz Disposition Disposition: Home, Self Care What to do if you have Problems For any increased pain, shortness of breath, bleeding, nausea or vomiting, chestpain, or any unexpected problems, contact your Primary Care Provider. Call [facility] ([phone]) or report tothe closest Emergency Room. Call 911 if necessary. 04/26/24 0504 Cosigner Signature (if applicable): CC: Dr. Eloisa Espinal MD ~ Signed [facility]03-15-2025 Radiology Diagnostic study note [facility] Imaging Services [address] [place], [place] [address] Shoulder min 2 Views MR#: [id number] Acct: [id number] Name: JAYDEN CRAIG Rep #: [id number] : 1940 M 83 From: Julio C Arellano MD PCP: Dr. Eloisa Espinal MD Status: AL E ER Study:Shoulder min 2 Views Date of Exam: 04/25/24 Exam# [id number] Ordering Dr: Margot Velasco MD PROCEDURE: SHOULDER MIN 2 VIEWS REASON FOR EXAM: INJURY/PAIN TECHNIQUE: Four views left shoulder COMPARISON: None. FINDINGS: LEFT SHOULDER: No fracture or dislocation. RAD/Shoulder min 2 Views IMPRESSION: No fracture or dislocation. Reading Location: [facility] CC: Dr. Eloisa Espinal MD; Dr. Dave Velasco MD ~ Data Collection Associate: Signed [facility]03-14-2025 Radiology Diagnostic study note [facility] Imaging Services [address] [place], [place] [address] Brain/Head without Contrast MR#: [id number] Acct: [id number] Name: JAYDEN CRAIG Rep #: [id number] : 1940 M 83 From: Henry Madera MD PCP: Dr. Eloisa Espinal MD Status: AL E ER Study:Brain/Head without Contrast Date of Exa m: 04/25/24 Exam# [id number] Ordering Dr: Margot Velasco MD EXAM: BRAIN/HEAD WITHOUT CONTRAST CLINICAL HISTORY: FALL FINDINGS: Mucosal thickening of the right maxillary sinus consistent with chronic sinusitis. No bony abnormality. Moderate diffuse cerebral atrophy. Confluent areas of decreased attenuation within the periventricular white matter consistent with ischemic white matter changes. No area of increased attenuation to suggestacute hemorrhage. CT/Brain/Head without Contrast IMPRESSION: Chronic involutional changes of the brain. No acute intracranial hemorrhage. Reading Location: [facility] CC: Dr. Eloisa Espinal MD; Dr. Dave Velasco MD ~ Data Collection Associate: Signed [facility]03-12-2025 Evaluation note* Diagnosis Onset Date Resolution Status Admit Date CAD (coronary artery disease) chroni c April 23, 2024 9:48am COPD (chronic obstructive pulmonary disease) chronic April 23 025 9:48am Dyslipidemia chronic April 23, 2024 9:48am Hypertension chronic April 23, 2024 9:48am History of atrial fibrillati on less than 8 weeks after coronary artery bypa resolved April 23, 2024 9:48am Preoperative cardiovascular examination noneactive April 23, 2024 9:48am [facility] Work Phone: 1(503) 251-640603-12-2025 Evaluation note* Diagnosis Onset Date Resolution Status Admit Date CAD (coronary artery disease) chroni c April 23, 2024 9:48am COPD (chronic obstructive pulmonary disease) chronic April 23, 2 025 9:48am Dyslipidemia chronic April 23, 2024 9:48am Hypertension chronic April 23, 2024 9:48am History of atrial fibrillati on less than 8 weeks after coronary artery bypa resolved April 23, 2024 9:48am Preoperative cardiovascular examination noneactive April 23, 2024 9:48am Shortness of breath acute August 19, 2024 10:11am CAD (coronary artery disease) chroni c August 19, 2024 10:11am Dyslipidemia chronic August 19 10:11am Hypertension chronic August 19 10:11am History of atrial fibrillati on less than 8 weeks after coronary artery bypa resolved August 19 025 10:11am Preoperative cardiovascular examination noneactive August 19, 2024 10:11am [facility] Work Phone: 1(972) 174-658402-28-2025 Telephone encounter Note* Telephone Encounter - Varun Black - 04/11/2024 3:12 PM EST Rescheduled Surgery 05-06-2024 [facility]02-28-[facility] Telephone encounter Note* Telephone Encounter - Varun Black - 04/11/2024 3:12 PM EST patient was not cleared though [facility] , patient needs to see cardio, Patient has cardio set up april 23, rescheduled surgery for 05-06-2024 [facility]02-28-2025 Miscellaneous Notes* Telephone Encounter - Varun Black - 04/11/2024 3:12 PM EST Rescheduled Surgery 05-06-2024 * Telephone Encounter - Rama Olivarez LPN - 04/02/2024 3:43 PM EST ty [facility] surgery can be rescheduled after 04/23/24 heart group appt as long as he is cleared.Rama Olivarez LPN * Telephone Encounter - Yamel Oro LPN - 04/02/2024 1:46 PM EST [facility] faxed back. Patient is being seen on 04/23/[address] Daly. Yamel Oro LPN * Telephone Encounter - Rama Olivarez LPN - 04/02/2024 11:10 AM EST Called and spoke with [facility]. They request the referral be sent and they will schedule. Faxed and requested they notify me with date and time so we can r/s surgery. Rama Olivarez LPN documented in [facility] Miscellaneous Notes* Telephone Encounter - Varun Black - 04/11/2024 3:12 PM EST patient was not cleared though [facility] , patient needs to see cardio, Patient has cardio set up april 23, rescheduled surgery for 05-06-2024 * Telephone Encounter - Varun Black - 03/26/2024 1:24 PM EST 04-08-2024 Hernia Repair patient aware, and has direct number to call with questions Varun Black documented in this encounter[facility] Telephone encounter Note * Telephone Encounter - Marely Begum MA - 04/08/2024 3:52 PM EST Pt notified of this via [employer]. Marely Begum MA [facility]02-25-2025 Miscellaneous Notes* Telephone Encounter - Marely Begum MA - 04/08/2024 3:52 PM EST Pt notified of this via [employer]. Marely Begum MA * Telephone Encounter - Eloisa Espinal MD - 04/08/2024 3:12 PM EST OK to change as ordered Eloisa Espinal MD * Telephone Encounter - Marely Begum MA - 04/08/2024 11:24 AM EST Office received fax from [facility] requesting alternative medication for Fluticasone-Salmeterol 115-21. Pharmacy comments: The Prescribed mediation is not covered by Insurance. Please consider changing to one of the suggested covered alternatives. Suggested alternatives: Advair HFA 45-21 mcg inhaler, Breyna 80-4.5 mcg inhaler, Breo Ellipta 100-25 mcg Inhaler. Please review and advise. Marely Begum MA documented in this encounterOhio[facility] Telephone encounter Note * Telephone Encounter - Eloisa Espinal MD - 04/08/2024 3:12 PM EST OK to change as ordered Eloisa Espinal MD [facility]02-25-2025 Telephone encounter Note* Telephone Encounter - Marely Begum MA - 04/08/2024 11:24 AM EST Office received fax from [facility] requesting alternative medication for Fluticasone-Salmeterol 115-21. Pharmacy comments: The Prescribed mediation is not covered by Insurance. Please consider changing to one of the suggested covered alternatives. Suggested alternatives: Advair HFA 45-21 mcg inhaler, Breyna 80-4.5 mcg inhaler, Breo Ellipta 100-25 mcg Inhaler. Please review and advise. Marely Begum MA [facility]02-19-2025 Telephone encounter Note* Telephone Encounter - Rama Olivarez LPN - 04/02/2024 3:43 PM EST ty Bond surgery can be rescheduled after 04/23/24 heart group appt as long as he is cleared.Rama Olivarez LPN [facility]02-19-2025 Telephone encounter Note* Telephone Encounter - Yamel Oro LPN - 04/02/2024 1:46 PM EST [facility] faxed back. Patient is being seen on 04/23/[address] Daly. Yamel Oro LPN [facility]02-19-2025 Telephone encounter Note* Telephone Encounter - Rama Olivarez LPN - 04/02/2024 11:10 AM EST Called and spoke with [facility]. They request the referral be sent and they will schedule. Faxed and requested they notify me with date and time so we can r/s surgery. Rama Olivarez LPN [facility]02-18-2025 NoteHNO ID: [id number] Author: HERMAN KAUR PT Service: ? Author Type: Physical Therapist Type: Progress Notes Filed: 04/01/2024 15:01 Note Text: Episode Visit Count: 9 Therapist That Will Accept/Oversee The Plan Of Care: Herman Kaur PT Start of Care Date: 02/14/24 Onset Date: 12/15/23 Plan of Care Certification Date: 03/18/24 Next Certification Due Date: 04/15/24 Patient Identified by Name and Date of : Yes REHABILITATION AND SPORTS THERAPY PHYSICAL THERAPY TREATMENT NOTE ASSESSMENT: Jayden Craig tolerated the session with decreased symptoms. He demonstrated improvements in pain after traction today. The patient will continue to benefit from ongoing skilled physical therapy to progress toward set goals and for reassessment by supervising therapist. Classification Pain Mechanism Classification: Neuropathic Low Back Pain Classification: Symptom Modulation PLAN FOR NEXT VISIT: Continue with postural stretching and strengthening with flexion directional preference. Continue manual lumbar belt traction. Re-assess for plan of care update at next visit 04/22/24. Pt is scheduled for hernia surgery 04/08/24 and he was advised to check with surgeon before returning to PT or resuming HEP. SUBJECTIVE: Pt reports that he needs to cancel his next PT appointment on 04/08/24 because he is having hernia surgery that same day. He reports that he completed HEP 4x last week. Overall he feels that he is getting better and having less pain. Despite the improvements, he still has pain at times. He feels that the traction has been helpful. Pain: Pain Pain Level: 7 Pain Location: Low Back/Lumbar Spine - Right, Low Back/Lumbar Spine - Left Description: (Pt is unable to describe) Frequency: Intermittent Post Treatment Pain Post Treatment Pain Level: Better Post Treatment Symptoms: Pt denied any increase in pain as a result of therex today. After traction, he reported that he felt better with a decrease in pain intensity as he was leaving. OBJECTIVE MEASURES WITH LEVEL OF FUNCTION: Posture / Alignment Posture: Forward head, Increased thoracic kyphosis, Rounded shoulders (severely flexed trunk in standing) TREATMENT: Therapeutic Exercise: 1: SciFit StepOne seat #13 x6 minutes (Pt provided an update on his condition and plan of care reviewed.) 2: supine LTR 2x10 3: supine B SKTC 3x30 seconds 4: supine DKTC 3x30 seconds 5: seated transverse abdominal exercise via posterior pelvic tilt 2x10 6: supine crunches in very small range 2x10 7: HEP reviewd, corrected and continuation encouraged to tolerance. Pt questions answered. Skilled Intervention: Patient was educated in proper exercise technique and purpose for exercises. Skilled judgment was used in selection of appropriate interventions. Correct performance of therapeutic exercises was facilitated with verbal, visual, and tactile cuing. Patient education as noted. Manual Therapy: Manual Traction: After therex, manual lumbar belt traction with pt supine and LEs elevated on leg rest and force to pt tolerance x12 minutes. Skilled Intervention: Manual skills to improve joint mobility, ROM, and decrease pain. Utilized anatomy knowledge of the therapist, and assessment of patient's response to intervention. Billing Therapeutic Exercise Treatment Minutes: 34 Manual TherapyTreatment Minutes: 12 Skilled Treatment Time Minutes (timed and untimed codes): 46 Total Session Time (minutes): 46 Session Start Time : 1401 Session Stop Time : 1447 Herman Kaur [facility]02-18-2025 History of Present illness Narrative* Herman Kaur, PT - 04/01/2024 2:58 PM EST Episode Visit Count: 9 Therapist That Will Accept/Oversee The Plan Of Care: Herman Kaur PT Start of Care Date: 02/14/24 Onset Date: 12/15/23 Plan of Care Certification Date: 03/18/24 Next Certification Due Date: 04/15/24 Patient Identified by Name and Date of : Yes [facility] PHYSICAL THERAPY TREATMENT NOTE ASSESSMENT: Jayden Craig tolerated the session with decreased symptoms. He demonstrated improvements in pain after traction today. The patient will continue to benefit from ongoing skilled physicaltherapy to progress toward set goals and for reassessment by supervising therapist. Classification Pain Mechanism Classification: Neuropathic Low Back Pain Classification: Symptom Modulation PLAN FOR NEXT VISIT: Continue with postural stretching and strengthening with flexion directional preference. Continue manual lumbar belt traction. Re-assess for plan of care update at next visit 04/22/24. Pt is scheduledfor hernia surgery 04/08/24 and he was advised to check with surgeon before returning to PT or resuming HEP. SUBJECTIVE: Pt reports that he needs to cancel his next PT appointment on 04/08/24 because he is having hernia surgery that same day. He reports that he completed HEP 4x last week. Overall he feels that he is getting better and having less pain. Despite the improvements, he still has pain at times. He feels that the traction has been helpful. Pain: Pain Pain Level: 7 Pain Location: Low Back/Lumbar Spine - Right, Low Back/Lumbar Spine - Left Description: (Pt is unable to describe) Frequency: Intermittent Post Treatment Pain Post Treatment Pain Level: Better Post Treatment Symptoms: Pt denied any increase in pain as a result of therex today. After traction, he reported that he felt better with a decrease in pain intensity as he was leaving. OBJECTIVE MEASURES WITH LEVEL OF FUNCTION: Posture / Alignment Posture: Forward head, Increased thoracic kyphosis, Rounded shoulders (severely flexed trunk in standing) TREATMENT: Therapeutic Exercise: 1: SciFit StepOne seat #13 x6 minutes (Pt provided an update on his condition and plan of care reviewed.) 2: supine LTR 2x10 3: supine B SKTC 3x30 seconds 4: supine DKTC 3x30 seconds 5: seated transverse abdominal exercise via posterior pelvic tilt 2x10 6: supine crunches in very small range 2x10 7: HEP reviewd, corrected and continuation encouraged to tolerance. Pt questions answered. Skilled Intervention: Patient was educated in proper exercise technique and purpose for exercises. Skilled judgment was used in selection of appropriate interventions. Correct performance of therapeutic exercises was facilitated with verbal, visual, and tactile cuing. Patient education as noted. Manual Therapy: Manual Traction: After therex, manual lumbar belt traction with pt supine and LEs elevated on leg rest and force to pt tolerance x12 minutes. Skilled Intervention: Manual skills to improve joint mobility, ROM, and decrease pain. Utilized anatomy knowledge of the therapist, and assessment of patient's response to intervention. Billing Therapeutic Exercise Treatment Minutes: 34 Manual TherapyTreatment Minutes: 12 Skilled Treatment Time Minutes (timed and untimed codes): 46 Total Session Time (minutes): 46 Session Start Time : 1401 Session Stop Time : 1447 Herman Kaur PT [facility] Telephone encounter Note * Telephone Encounter - Marlen Monique LPN - 03/27/2024 2:25 PM EST The patient has been identified by name and date of : Yes Caregiver verified no other encounters exist for this prescription request: Yes Caregiver confirmed with patient/requestor that no other refills are due, in the near future, with this provider at this time: Yes The last office visit in the department: 03/19/2024 Does the patient have a future office visit with this provider/department: Yes 05/16/2024 Requested Prescriptions Pending Prescriptions Disp Refills fluticasone (FLONASE) 50 mcg/actuation nasal spray 16 mL 11 Sig: Use 2 Sprays in each nostril once daily. Rinse mouth after use. Marlen Monique LPN March 27, 2024 2:25 PM [facility]02-13-[facility] Miscellaneous Notes* Telephone Encounter - Marlen Monique LPN - 03/27/2024 2:25 PM EST The patient has been identified by name and date of : Yes Caregiver verified no other encounters exist for this prescription request: Yes Caregiver confirmed with patient/requestor that no other refills are due, in the near future, with this provider at this time: Yes The last office visit in the department: 03/19/2024 Does the patient have a future office visit with this provider/department: Yes 05/16/2024 Requested Prescriptions Pending Prescriptions Disp Refills fluticasone (FLONASE) 50 mcg/actuation nasal spray 16 mL 11 Sig: Use 2 Sprays in each nostril once daily. Rinse mouth after use. Marlen Monique LPN March 27, 2024 2:25 PM documented in this encounter[facility] Telephone encounter Note * Telephone Encounter - Varun Black - 03/26/2024 1:24 PM EST 04-08-2024 Hernia Repair patient aware, and has direct number to call with questions Varun Black [facility]02-12-2025 NoteHNO ID: [id number] Author: DK BYNUM MD Service: ? Author Type: Physician Type: Progress Notes Filed: 03/26/2024 12:58 Note Text: HISTORY AND PHYSICAL Jayden Craig 1940 REFERRING PHYSICIAN: Elsa Mayo APRN.C* CHIEF COMPLAINT: Consult HPI: Jayden is a 83 year old male with a complaint of a bulge and discomfort in his prior supraumbilical incisional hernia repair site. The patient notes discomfort in this area with lifting and coughing. The symptoms have increased, over the past few months. The patient notes no symptoms of bowel obstruction and denies nausea or vomiting. The patient underwent repair of a type 3 paraesophageal hernia on August 24, 2022 along with repair of a simple umbilical hernia. He then had repair without mesh of two fascial defects on April 03, 2024. The defects were closed with 0 PDS and the two defects were noted to be 4x4cm and 1x2cm. 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 Regina Oswald APPENDECTOMY COLONOSCOPY FLX DX W/COLLJ SPEC WHEN PFRMD 06/28/2004 Colonoscopy COLONOSCOPY FLX DX W/COLLJ SPEC WHEN PFRMD 08/06/2015 Colonoscopy CORONARY ARTERY BYPASS GRAFT HX 07/24/2018 VASQUES in situ mammary end to side mid LAD, Vein graft ascending aorta end to side RCA, Vein graft ascending aorta end to side obtuse marginal 1. EGD N/A 06/29/2020 Dr. Keating EGD 05/31/2021 EGD TRANSORAL BIOPSY SINGLE/MULTIPLE 08/30/2009 EGD TRANSORAL BIOPSY SINGLE/MULTIPLE 08/23/2011 repeat in 2 years ESOPHAGOGASTRODUODENOSCOPY TRANSORAL DIAGNOSTIC 10/06/1998 EGD ESOPHAGOGASTRODUODENOSCOPY TRANSORAL DIAGNOSTIC 01/29/2000 EGD ESOPHAGOGASTRODUODENOSCOPY TRANSORAL DIAGNOSTIC 08/04/2003 EGD ESOPHAGOGASTRODUODENOSCOPY TRANSORAL DIAGNOSTIC 08/29/2007 EGD ESOPHAGOGASTRODUODENOSCOPY TRANSORAL DIAGNOSTIC 08/28/2013 EGD ESOPHAGOGASTRODUODENOSCOPY TRANSORAL DIAGNOSTIC 10/08/2017 EGD HEART SURGERY HX HIATAL HERNIA REPAIR HX 08/24/2022 Laparoscopic paraesophageal hernia repair with gastropexy, Primary repair of ventral hernia, EGD LAPAROSCOPIC CHOLECYSTECTOMY 12/15/2018 PAST SURGICAL HISTORY OF N/A 04/25/2017 Back surgery done at [facility], [address] [place] [address] and cleaned up arthritis REPAIR UMBILICAL HERNIA 08/24/2022 Current Outpatient Medications Medication Sig albuterol HFA (PROVENTIL HFA, VENTOLIN HFA) 90 mcg/actuation inhaler Inhale 2 Puffs as instructed every 4 hours as needed for wheezing/shortness of breath. fluticasone-salmeterol HFA (ADVAIR) 115-21 mcg/actuation inhaler Inhale 2 Puffs as instructed two times a day. Rinse mouth after use. tamsulosin (FLOMAX) 0.4 mg TAKE 1 CAPSULE BY MOUTH EVERYDAY AT BEDTIME levothyroxine (LEVOXYL) 175 mcg tablet Take 1 tablet by mouth once daily. Take on empty stomach. For thyroid. metoprolol tartrate, short acting, (LOPRESSOR) 25 mg tablet Take 1 tablet by mouth two times a day. lisinopril (ZESTRIL) 10 mg tablet take 1 tablet by mouth every day simvastatin (ZOCOR) 80 mg tablet take 1 tablet by mouth everyday at bedtime pantoprazole DR (PROTONIX) 40 mg tablet Take 1 tablet by mouth two times a day. Take on empty stomach, 1/2 hr before meal. fluticasone (FLONASE) 50 mcg/actuation nasal spray Use 2 Sprays in each nostril once daily. Rinse mouth after use. aspirin, enteric coated (ASPIRIN, ENTERIC COATED) 325 mg EC tablet Take 1 tablet by mouth once daily. magnesium oxide (MAG-OX) 400 mg (241.3 mg magnesium) tablet Take 1 tablet by mouth once daily. acetaminophen (TYLENOL) 325 mg tablet Take 2 tablets by mouth every 4 hours as needed. THERAPEUTIC MULTIVITAMIN TAB Take 1 tablet by mouth once daily. No current facility-administered medications for this visit. ALLERGIES: Lipitor [Atorvastatin Calcium], Omnicef [Cefdinir], and Zithromax [Azithromycin] PERSONAL HISTORY: Social History Tobacco Use Smoking status: Former Current packs/day: 0.00 Average packs/day: 0.5 packs/day for 27.0 years (13.5 ttl pk-yrs) Types: Cigarettes Start date: 1954 Quit date: 1981 Years since quittin.1 Smok (more content not included)...[facility]02-12-2025 History of Present illness Narrative* Dk Bynum MD - 03/26/2024 12:42 PM EST HISTORY AND PHYSICAL Jayden Craig 1940 REFERRING PHYSICIAN: Elsa Mayo APRN.C* CHIEF COMPLAINT: Consult HPI: Jayden is a 83 year old male with a complaint of a bulge and discomfort in his prior supraumbilical incisional hernia repair site. The patient notes discomfort in this area with lifting and coughing. The symptoms have increased, over the past few months. The patient notes no symptoms of bowel obstruction and denies nausea or vomiting. The patient underwent repair of a type 3 paraesophageal hernia on August 24, 2022 along with repair of a simple umbilical hernia. He then had repair without mesh of two fascial defects on April 03, 2024. The defects were closed with 0 PDS and the two defects were noted to be 4x4cm and 1x2cm. 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 Regina Oswald APPENDECTOMY COLONOSCOPY FLX DX W/COLLJ SPEC WHEN PFRMD 06/28/2004 Colonoscopy COLONOSCOPY FLX DX W/COLLJ SPEC WHEN PFRMD 08/06/2015 Colonoscopy CORONARY ARTERY BYPASS GRAFT HX 07/24/2018 VASQUES in situ mammary end to side mid LAD, Vein graft ascending aorta end to side RCA, Vein graft ascending aorta end to side obtuse marginal 1. EGD N/A 06/29/2020 Dr. Keating EGD 05/31/2021 EGD TRANSORAL BIOPSY SINGLE/MULTIPLE 08/30/2009 EGD TRANSORAL BIOPSY SINGLE/MULTIPLE 08/23/2011 repeat in 2 years ESOPHAGOGASTRODUODENOSCOPY TRANSORAL DIAGNOSTIC 10/06/1998 EGD ESOPHAGOGASTRODUODENOSCOPY TRANSORAL DIAGNOSTIC 01/29/2000 EGD ESOPHAGOGASTRODUODENOSCOPY TRANSORAL DIAGNOSTIC 08/04/2003 EGD ESOPHAGOGASTRODUODENOSCOPY TRANSORAL DIAGNOSTIC 08/29/2007 EGD ESOPHAGOGASTRODUODENOSCOPY TRANSORAL DIAGNOSTIC 08/28/2013 EGD ESOPHAGOGASTRODUODENOSCOPY TRANSORAL DIAGNOSTIC 10/08/2017 EGD HEART SURGERY HX HIATAL HERNIA REPAIR HX 08/24/2022 Laparoscopic paraesophageal hernia repair with gastropexy, Primary repair of ventral hernia, EGD LAPAROSCOPIC CHOLECYSTECTOMY 12/15/2018 PAST SURGICAL HISTORY OF N/A 04/25/2017 Back surgery done at [facility], [address] [place] [address] and cleaned up arthritis REPAIR UMBILICAL HERNIA 08/24/2022 Current Outpatient Medications Medication Sig albuterol HFA (PROVENTIL HFA, VENTOLIN HFA) 90 mcg/actuation inhaler Inhale 2 Puffs as instructed every 4 hours as needed for wheezing/shortness of breath. fluticasone-salmeterol HFA (ADVAIR) 115-21 mcg/actuation inhaler Inhale 2 Puffs as instructed two times a day. Rinse mouth after use. tamsulosin (FLOMAX) 0.4 mg TAKE 1 CAPSULE BY MOUTH EVERYDAY AT BEDTIME levothyroxine (LEVOXYL) 175 mcg tablet Take 1 tablet by mouth once daily. Take on empty stomach. For thyroid. metoprolol tartrate, short acting, (LOPRESSOR) 25 mg tablet Take 1 tablet by mouth two times a day. lisinopril (ZESTRIL) 10 mg tablet take 1 tablet by mouth every day simvastatin (ZOCOR) 80 mg tablet take 1 tablet by mouth everyday at bedtime pantoprazole DR (PROTONIX) 40 mg tablet Take 1 tablet by mouth two times a day. Take on empty stomach, 1/2 hr before meal. fluticasone (FLONASE) 50 mcg/actuation nasal spray Use 2 Sprays in each nostril once daily. Rinse mouth after use. aspirin, enteric coated (ASPIRIN, ENTERIC COATED) 325 mg EC tablet Take 1 tablet by mouth once daily. magnesium oxide (MAG-OX) 400 mg (241.3 mg magnesium) tablet Take 1 tablet by mouth once daily. acetaminophen (TYLENOL) 325 mg tablet Take 2 tablets by mouth every 4 hours as needed. THERAPEUTIC MULTIVITAMIN TAB Take 1 tablet by mouth once daily. No current facility-administered medications for this visit. ALLERGIES: Lipitor [Atorvastatin Calcium], Omnicef [Cefdinir], and Zithromax [Azithromycin] PERSONAL HISTORY: Social History Tobacco Use Smoking status: Former Current packs/day: 0.00 Average packs/day: 0.5 packs/day for 27.0 years (13.5 ttl pk-yrs) Types: Cigarettes Start date: 1952 Quit date: 1981 Years since quittin.1 Smokeless tobacco: Never Vaping Use Vaping status: Never Used Substance Use Topics Alcohol use: Not Currently Drug use: Never FAMILY HISTORY: FAMILY HISTORY Problem Relation Age of Onset Emphysema Father Emphysema Mother other (no cardiac hx per pt) Other REVIEW OF SYMPTOMS: The review of systems data was entered by the nurse and reviewed by me There are no exam notes on file for this visit. PHYSICAL EXAMINATION: General: The patient is 83 year old male, well nourished, well hydrated in no acute distress. The patient is oriented to time, place, and person. VITALS: Blood pressure 132/62, pulse 99, temperature 36.6 C (97.9 F), temperature source Temporal Artery, resp. rate 19, weight 81.2 kg (179 lb), SpO2 98%. Body mass index is 26.43 kg/m . HEENT: Normal cephalic, ataumatic, pupils are equally round, sclera are anicteric, mucous membranesare moist, oropharynx is clear. Neck has no masses, asymmetry or lymphadenopathy. Thyroid is unremarkable. Respiratory: Clear to auscultation and percussion. Normal respiratory excursion and pattern. Cardiac: Examination is regular rate and rhythm. Abdominal exam: Soft, nontender, with no palpable masses. No hepatosplenomegaly. A small, reducibleincisional hernia Rectal exam: exam deferred Extremities: no clubbing, cyanosis or edema. No adenopathy. Other: LABORATORY VALUES: As Noted RADIOLOGIC STUDIES: As Noted Assessment IMPRESSION: prior simple ventral incisional hernia recurrence PLAN: My plan is to perform a laparoscopic incisional hernia repair with mesh. The planned surgicalprocedure was discussed extensively with the patient. The risks, benefits, anticipated outcomes andpossible complications were mentioned. Jayden laureanoands that all hernia repair surgery has a chance of recurrence and/or chronic post operative pain. My staff has also explained the procedure in understandable terms and the patient was given the option to take printed material concerning the planned procedure. The patient had the opportunity to ask questions concerning the planned procedure. Thepatient freely consents to the planned procedure. My findings have been communicated to Elsa Mayo via shared medical record. This note will be forwarded to Eloisa Espinal MD. Diagnoses: (K43.2) Recurrent incisional hernia (primary encounter diagnosis) (K42.9) Umbilical hernia without obstruction or gangrene Anticipated CPT Code: Recurrent anterior abdominal hernia repair 55302 - 3-10 cm reducible laparoscopic repair Anticipated Anesthetic: General Patient weight: Blood pressure 132/62, pulse 99, temperature 36.6 C (97.9 F), temperature source Temporal Artery, resp. rate 19, weight 81.2 kg (179 lb), SpO2 98%. BMI: Body mass index is 26.43 kg/m . Planned antibiotic: Ancef 2gm IVPB consumer affairs director to OR SCDs needed - Yes Return to Clinic: The patient is instructed to follow-up with me 1 week post operatively. Dk Bynum MD * Marlen Ma MA - 03/26/2024 11:56 AM EST REVIEW OF SYSTEMS: General: The patient denies fatigue, denies weight loss, denies weight gain, denies feeling hot, and denies feelings of cold. Eyes: The patient denies glaucoma, denies eye injury/surgery, does not wear glasses or contacts. Ear/Nose/Throat: The patient denies allergies, denies hayfever, denies ear infections, and denies bloody noses. Cardiovascular: The patient denies chest pain, NOTES heart disease, NOTES high blood pressure,denies cardiac stent, denies prior heart attack, denies irregular heart beat, NOTES high cholesterol, denies poor circulation, denies heart failure, other cardiac issues, denies claudication, denies cold feet, denies peripheral arterial stent. Respiratory: The patient denies tuberculosis, denies pneumonia, denies frequent cough, denies pulmonary embolism, NOTES shortness of breath, and denies coughing up blood. Gastrointestinal: The patient denies difficulty swallowing, NOTES acid reflux, denies ulcers, denies vomiting, denies jaundice/hepatitis, NOTES gallbladder problems, denies black or tarry stools, denies hemorrhoids, denies bleeding from rectum, denies diverticulitis, denies constipation, denies diarrhea, denies loss of stool control, and denies hernias. Kidney/Bladder: The patient denies kidney stones, denies urine infections, and denies bloody urine. Skin: The patient denies a history of skin cancer, denies bleeding/changing moles, and denies a history of skin rash. Neurologic: The patient denies a history of epilepsy/convulsions, denies headaches, denies head/spinal injuries, and denies stroke/TIA. Psychiatric: The patient denies psychiatric medications, denies depression, and denies voices, denies substance abuse. Endocrine: The patient NOTES thyroid disorders, denies diabetes, and denies hormonal problems. Hematologic: The patient denies a history of bruising, denies bleeding, and denies anemia, denies blood clots. Infections: The patient NOTES a history of measles and mumps, denies rheumatic fever, and denies sexually transmitted diseases. Musculoskeletal: The patient denies back pain/injury, NOTES back problems, NOTES sciatica, denies knee/foot trouble, NOTES arthritis, or denies gout. When was patient's last Mammogram screening? N/A Last Colonoscopy: 2015 Marlen Ma MA documented in this encounter[facility] NoteHNO ID: [id number] Author: MARLEN MA MA Service: ? Author Type: Accounting Assistant Type: Progress Notes Filed: 03/26/2024 12:58 Note Text: REVIEW OF SYSTEMS: General: The patient denies fatigue, denies weight loss, denies weight gain, denies feeling hot, and denies feelings of cold. Eyes: The patient denies glaucoma, denies eye injury/surgery, does not wear glasses or contacts. Ear/Nose/Throat: The patient denies allergies, denies hayfever, denies ear infections, and denies bloody noses. Cardiovascular: The patient denies chest pain, NOTES heart disease, NOTES high blood pressure,denies cardiac stent, denies prior heart attack, denies irregular heart beat, NOTES high cholesterol, denies poor circulation, denies heart failure, other cardiac issues, denies claudication, denies cold feet, denies peripheral arterial stent. Respiratory: The patient denies tuberculosis, denies pneumonia, denies frequent cough, denies pulmonary embolism, NOTES shortness of breath, and denies coughing up blood. Gastrointestinal: The patient denies difficulty swallowing, NOTES acid reflux, denies ulcers, denies vomiting, denies jaundice/hepatitis, NOTES gallbladder problems, denies black or tarry stools, denies hemorrhoids, denies bleeding from rectum, denies diverticulitis, denies constipation, denies diarrhea, denies loss of stool control, and denies hernias. Kidney/Bladder: The patient denies kidney stones, denies urine infections, and denies bloody urine. Skin: The patient denies a history of skin cancer, denies bleeding/changing moles, and denies a history of skin rash. Neurologic: The patient denies a history of epilepsy/convulsions, denies headaches, denies head/spinal injuries, and denies stroke/TIA. Psychiatric: The patient denies psychiatric medications, denies depression, and denies voices, denies substance abuse. Endocrine: The patient NOTES thyroid disorders, denies diabetes, and denies hormonal problems. Hematologic: The patient denies a history of bruising, denies bleeding, and denies anemia, denies blood clots. Infections: The patient NOTES a history of measles and mumps, denies rheumatic fever, and denies sexually transmitted diseases. Musculoskeletal: The patient denies back pain/injury, NOTES back problems, NOTES sciatica, denies knee/foot trouble, NOTES arthritis, or denies gout. When was patient's last Mammogram screening? N/A Last Colonoscopy: 2015 Marlen Ma, [facility]02-10-2025 NoteHNO ID: [id number] Author: HERMAN KAUR PT Service: ? Author Type: Physical Therapist Type: Progress Notes Filed: 03/24/2024 11:22 Note Text: Episode Visit Count: 8 Therapist That Will Accept/Oversee The Plan Of Care: Herman Kaur PT Start of Care Date: 02/14/24 Onset Date: 12/15/23 Plan of Care Certification Date: 03/18/24 Next Certification Due Date: 04/15/24 Patient Identified by Name and Date of : Yes REHABILITATION AND SPORTS THERAPY PHYSICAL THERAPY TREATMENT NOTE ASSESSMENT: Jayden Craig tolerated the session with decreased symptoms. He demonstrated improvements in pain and upright posture. The patient will continue to benefit from ongoing skilled physical therapy to progress toward set goals. Classification Pain Mechanism Classification: Neuropathic Low Back Pain Classification: Symptom Modulation PLAN FOR NEXT VISIT: Continue with postural stretching and strengthening with flexion directional preference. Continue manual lumbar belt traction. SUBJECTIVE: Pt reports that overall he is pretty much the same. He reports increasing the frequency of his HEP to 4x last week. He reports being seen by PCP office and he has a consult scheduled for his hernia and also with cardiology. Pain: Pain Pain Level: 3 Pain Location: Low Back/Lumbar Spine - Right, Low Back/Lumbar Spine - Left (previously just R side of low back) Description: Aching Frequency: Intermittent Post Treatment Pain Post Treatment Pain Level: Better Post Treatment Symptoms: After session, pt reported feeling better with less pain and improved ability to stand upright. OBJECTIVE MEASURES WITH LEVEL OF FUNCTION: Posture / Alignment Posture: Forward head, Increased thoracic kyphosis, Rounded shoulders (severely flexed trunk in standing) TREATMENT: Therapeutic Exercise: 1: SciFit StepOne seat #13 x6 minutes (Pt provided an update on his condition and plan of care reviewed.) 2: supine LTR 2x10 3: supine B SKTC 3x30 seconds 4: supine DKTC 3x30 seconds 5: supine transverse abdominal exercise via shoulder extension 2 second holds 2x10 6: supine crunches in very small range 2x10 7: HEP reviewd and continuation encouraged to tolerance. Skilled Intervention: Patient was educated in proper exercise technique and purpose for exercises. Skilled judgment was used in selection of appropriate interventions. Correct performance of therapeutic exercises was facilitated with verbal, visual, and tactile cuing. Patient education as noted. Manual Therapy: Manual Traction: After therex, manual lumbar belt traction with pt supine and LEs elevated on leg rest and force to pt tolerance x12 minutes. Skilled Intervention: Manual skills to improve joint mobility, ROM, and decrease pain. Utilized anatomy knowledge of the therapist, and assessment of patient's response to intervention. Billing Therapeutic Exercise Treatment Minutes: 31 Manual TherapyTreatment Minutes: 12 Skilled Treatment Time Minutes (timed and untimed codes): 43 Total Session Time (minutes): 43 Session Start Time : 1031 Session Stop Time : 1114 Herman Kaur [facility]02-10-2025 History of Present illness Narrative* Herman Kaur, PT - 03/24/2024 11:21 AM EST Episode Visit Count: 8 Therapist That Will Accept/Oversee The Plan Of Care: Herman Kaur PT Start of Care Date: 02/14/24 Onset Date: 12/15/23 Plan of Care Certification Date: 03/18/24 Next Certification Due Date: 04/15/24 Patient Identified by Name and Date of : Yes REHABILITATION AND SPORTS THERAPY PHYSICAL THERAPY TREATMENT NOTE ASSESSMENT: Jayden Craig tolerated the session with decreased symptoms. He demonstrated improvements in pain and upright posture. The patient will continue to benefit from ongoing skilled physical therapy to progress toward set goals. Classification Pain Mechanism Classification: Neuropathic Low Back Pain Classification: Symptom Modulation PLAN FOR NEXT VISIT: Continue with postural stretching and strengthening with flexion directional preference. Continue manual lumbar belt traction. SUBJECTIVE: Pt reports that overall he is pretty much the same. He reports increasing the frequencyof his HEP to 4x last week. He reports being seen by PCP office and he has a consult scheduled for his hernia and also with cardiology. Pain: Pain Pain Level: 3 Pain Location: Low Back/Lumbar Spine - Right, Low Back/Lumbar Spine - Left (previously just R side of low back) Description: Aching Frequency: Intermittent Post Treatment Pain Post Treatment Pain Level: Better Post Treatment Symptoms: After session, pt reported feeling better with less pain and improved ability to stand upright. OBJECTIVE MEASURES WITH LEVEL OF FUNCTION: Posture / Alignment Posture: Forward head, Increased thoracic kyphosis, Rounded shoulders (severely flexed trunk in standing) TREATMENT: Therapeutic Exercise: 1: SciFit StepOne seat #13 x6 minutes (Pt provided an update on his condition and plan of care reviewed.) 2: supine LTR 2x10 3: supine B SKTC 3x30 seconds 4: supine DKTC 3x30 seconds 5: supine transverse abdominal exercise via shoulder extension 2 second holds 2x10 6: supine crunches in very small range 2x10 7: HEP reviewd and continuation encouraged to tolerance. Skilled Intervention: Patient was educated in proper exercise technique and purpose for exercises. Skilled judgment was used in selection of appropriate interventions. Correct performance of therapeutic exercises was facilitated with verbal, visual, and tactile cuing. Patient education as noted. Manual Therapy: Manual Traction: After therex, manual lumbar belt traction with pt supine and LEs elevated on leg rest and force to pt tolerance x12 minutes. Skilled Intervention: Manual skills to improve joint mobility, ROM, and decrease pain. Utilized anatomy knowledge of the therapist, and assessment of patient's response to intervention. Billing Therapeutic Exercise Treatment Minutes: 31 Manual TherapyTreatment Minutes: 12 Skilled Treatment Time Minutes (timed and untimed codes): 43 Total Session Time (minutes): 43 Session Start Time : 1031 Session Stop Time : 1114 Herman Kaur PT [facility] Telephone encounter Note * Telephone Encounter - Mari Desouza RN - 03/21/2024 1:12 PM EST Patient returned call and given provider's message below and patient verbalized understanding. Tito Desouza RN [facility]02-[facility] Miscellaneous Notes* Telephone Encounter - Mari Desouza RN - 03/21/2024 1:12 PM EST Patient returned call and given provider's message below and patient verbalized understanding. Tito Desouza RN * Telephone Encounter - Jamaica Pagan LPN - 03/21/2024 11:33 AM EST Left message for patient to return call * Telephone Encounter - Eloisa Espinal MD - 03/20/2024 5:01 PM EST I would suggest checking a TSH level to see if his synthroid dose needs adjusting Eloisa Espinal MD * Telephone Encounter - Elza Wall MA - 03/20/2024 4:46 PM EST See mychart message. Elza Wall MA documented in this encounterOhio[facility] Telephone encounter Note * Telephone Encounter - Jamaica Pagan LPN - 03/21/2024 11:33 AM EST Left message for patient to return call [facility]02-[facility] Telephone encounter Note* Telephone Encounter - Eloisa Espinal MD - 03/20/2024 5:01 PM EST I would suggest checking a TSH level to see if his synthroid dose needs adjusting Eloisa Espinal MD [facility]02-[facility] Telephone encounter Note* Telephone Encounter - Elza Wall MA - 03/20/2024 4:46 PM EST See [employer] message. Elza Wall MA [facility]02-05-2025 Instructions* Patient Instructions* Elsa Mayo APRN.CNP - 03/19/2024 12:16 PM EST Cardiology at [facility] April 23 10:00 am Recommend using albuterol inhaler prior to physical therapy to help with shortness of breath. May use as needed. Monitor symptoms at home Follow up with General Surgery to evaluate hernia, Dr. Bynum documented in this encounterOhio[facility] History of Present illness Narrative* Elsa Mayo APRN.CNP - 03/19/2024 11:40 AM EST This is a 83 year old male who presents today with: Patient presents with: Acute Visit: increased SOB and fatique per PT HISTORY OF PRESENT ILLNESS: Jayden Craig is a 83 year old male. Patient presents with: Acute Visit: increased SOB and fatique per PT Here in the office for SOB while at PT for back pain. HTN/Afib: Does check BP occasionally at home. Denies any chest pain and dizziness. No further syncopal episodes since last seen. Taking Lisinopril 10 mg once daily and Lopressor 25 mg 1 tab po bid. Echo completed in July 2023, ejection fraction 54%, grade 1 left ventricular diastolic dysfunction. No significant valvular abnormalities. Not currently following with cardiology. 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 Willing to establish care. Reports he is having increased SOB, he reports at physical therapy he is breathing harder and feels as if he is having difficulty breathing. No wheezing. Lipids: Tries to watch his diet. Exercises as able due to hx of asthma. On current regimen of Zocor80 mg once daily. Tolerating well. Asthma: On current regimen of Advair 115-21 mcg 2 puffs once daily and Flonase 1 times daily. Constipation: He reports that 1-2 days a week he is having constipation. He reports taking Miralax and a stool softner at bedtime. Abdomen: reports his abdomen is distended and has some discomfort that is constant. Intermittent constipation. 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 Regina Oswald APPENDECTOMY COLONOSCOPY FLX DX W/COLLJ SPEC WHEN PFRMD 06/28/2004 Colonoscopy COLONOSCOPY FLX DX W/COLLJ SPEC WHEN PFRMD 08/06/2015 Colonoscopy CORONARY ARTERY BYPASS GRAFT HX 07/24/2018 VASQUES in situ mammary end to side mid LAD, Vein graft ascending aorta end to side RCA, Vein graft ascending aorta end to side obtuse marginal 1. EGD N/A 06/29/2020 Dr. Keating EGD 05/31/2021 EGD TRANSORAL BIOPSY SINGLE/MULTIPLE 08/30/2009 EGD TRANSORAL BIOPSY SINGLE/MULTIPLE 08/23/2011 repeat in 2 years ESOPHAGOGASTRODUODENOSCOPY TRANSORAL DIAGNOSTIC 10/06/1998 EGD ESOPHAGOGASTRODUODENOSCOPY TRANSORAL DIAGNOSTIC 01/29/2000 EGD ESOPHAGOGASTRODUODENOSCOPY TRANSORAL DIAGNOSTIC 08/04/2003 EGD ESOPHAGOGASTRODUODENOSCOPY TRANSORAL DIAGNOSTIC 08/29/2007 EGD ESOPHAGOGASTRODUODENOSCOPY TRANSORAL DIAGNOSTIC 08/28/2013 EGD ESOPHAGOGASTRODUODENOSCOPY TRANSORAL DIAGNOSTIC 10/08/2017 EGD HEART SURGERY HX HIATAL HERNIA REPAIR HX 08/24/2022 Laparoscopic paraesophageal hernia repair with gastropexy, Primary repair of ventral hernia, EGD LAPAROSCOPIC CHOLECYSTECTOMY 12/15/2018 PAST SURGICAL HISTORY OF N/A 04/25/2017 Back surgery done at [facility], [address] [place] [address] and cleaned up arthritis REPAIR UMBILICAL HERNIA 08/24/2022 ALLERGIES Lipitor [Atorvastatin Calcium], Omnicef [Cefdinir], and Zithromax [Azithromycin] MEDICATIONS Current Outpatient Medications Medication Sig fluticasone-salmeterol HFA (ADVAIR) 115-21 mcg/actuation inhaler Inhale 2 Puffs as instructed two times a day. Rinse mouth after use. tamsulosin (FLOMAX) 0.4 mg TAKE 1 CAPSULE BY MOUTH EVERYDAY AT BEDTIME levothyroxine (LEVOXYL) 175 mcg tablet Take 1 tablet by mouth once daily. Take on empty stomach. For thyroid. metoprolol tartrate, short acting, (LOPRESSOR) 25 mg tablet Take 1 tablet by mouth two times a day. lisinopril (ZESTRIL) 10 mg tablet take 1 tablet by mouth every day simvastatin (ZOCOR) 80 mg tablet take 1 tablet by mouth everyday at bedtime pantoprazole DR (PROTONIX) 40 mg tablet Take 1 tablet by mouth two times a day. Take on empty stomach, 1/2 hr before meal. fluticasone (FLONASE) 50 mcg/actuation nasal spray Use 2 Sprays in each nostril once daily. Rinse mouth after use. aspirin, enteric coated (ASPIRIN, ENTERIC COATED) 325 mg EC tablet Take 1 tablet by mouth once daily. magnesium oxide (MAG-OX) 400 mg (241.3 mg magnesium) tablet Take 1 tablet by mouth once daily. acetaminophen (TYLENOL) 325 mg tablet Take 2 tablets by mouth every 4 hours as needed. THERAPEUTIC MULTIVITAMIN TAB Take 1 tablet by mouth once daily. No current facility-administered medications for this visit. FAMILY HISTORY Problem Relation Age of Onset Emphysema Father Emphysema Mother other (no cardiac hx per pt) Other Social History Tobacco Use Smoking status: Former Current packs/day: 0.00 Average packs/day: 0.5 packs/day for 27.0 years (13.5 ttl pk-yrs) Types: Cigarettes Start date: 1954 Quit date: 1981 Years since quittin.1 Smokeless tobacco: Never Vaping Use Vaping status: Never Used Substance Use Topics Alcohol use: Not Currently Drug use: Never REVIEW OF SYSTEMS GENERAL: No weight loss, malaise or fevers/chills HEENT: Negative for frequent or significant headaches, No changes in hearing or vision. NECK: Negative for lumps, goiter, pain and significant neck swelling RESPIRATORY: + shortness of breath CARDIOVASCULAR: Negative for chest pain, leg swelling, orthopnea, or palpitations GI: + Constipation : No history of dysuria, frequency or incontinence MUSCULOSKELETAL: Negative for joint pain or swelling. SKIN: Negative for lesions, rash, and itching ENDOCRINE: Negative for cold or heat intolerance, polyuria, polydipsia and goiter NEURO: No history of headaches, syncope, paralysis, seizures or tremors MOOD: Negative for depression, anxiety, or suicidal ideation. EXAM: BP 108/68 Pulse 84 Resp 16 Wt 81.8 kg (180 lb 5.4 oz) BMI 26.63 kg/m PHYSICAL EXAM: General Appearance: Well appearing, alert, in no acute distress, well-hydrated, well nourished. Skin: Skin color, texture, turgor normal, no suspicious rashes or lesions. Head: Normocephalic, no masses, lesions, tenderness or abnormalities. Eyes: Anicteric sclera. Extraocular movements are intact. Lungs: Lungs clear to auscultation. No wheezing, rhonchi, rales. Heart: RRR without murmur, gallop, or rubs. No ectopy. Abdomen: Bowel sounds normal active x 4, umbilical hernia noted, nontender. Extremities: No deformities, edema, skin discoloration, clubbing or cyanosis. Good capillary refill. Peripheral Pulses: Normal, Capillary refill <2secs, strong peripheral pulses, Pulses palpable. Neurologic: Gait normal. Sensation grossly intact. ASSESSMENT/PLAN: 1. SOB (shortness of breath) - ICD9: 786.05, ICD10: R06.02 (primary diagnosis) - Instructed to use albuterol inhaler as needed and prior to physical therapy. - Agreeable to establish care with cardiology, office made appointment with [facility] heart group in April. - If symptoms do not improve may need PFTs completed, pulmonary exam was normal in office today. - ALBUTEROL SULFATE HFA 90 MCG/ACTUATION AEROSOL INHALER 2. Mild intermittent asthma without complication - ICD9: 493.90, ICD10: J45.20 - Mild intermittent asthma worse - Continue current medications - Avoidance of triggers recommended - Add on albuterol inhaler as needed. - ALBUTEROL SULFATE HFA 90 MCG/ACTUATION AEROSOL INHALER 3. Paroxysmal atrial fibrillation (HCC) - ICD9: 427.31, ICD10: I48.0 - CONSULT TO CARDIOLOGY 4. 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 Umbilical hernia without obstruction or gangrene - ICD9: 553.1, ICD10: K42.9 - Recommend follow up with general surgery. - CONSULT TO GENERAL SURGERY 6. Acute constipation - ICD9: 564.00, ICD10: K59.00 - Increase fiber in the diet. - May use MiraLAX as needed. Follow-up if no improvement. Discussed treatment plan and patient voices understanding. Patient's questions answered appropriately. Medications and potential side effects were discussed and patient voices understanding. Elsa Mayo APRN.[place] This note was partially generated using [employer] voice recognition system. Note was reviewed for accuracy. There may be minor misspellings or grammar miscues with [employer] voice recognition. documented in this encounterOhio[facility] NoteHNO ID: [id number] Author: ELSA MAYO APRN.[place] Service: ? Author Type: Nurse Practitioner Type: Progress Notes Filed: 03/19/2024 13:01 Note Text: This is a 83 year old male who presents today with: Patient presents with: Acute Visit: increased SOB and fatique per PT HISTORY OF PRESENT ILLNESS: Jayden Craig is a 83 year old male. Patient presents with: Acute Visit: increased SOB and fatique per PT Here in the office for SOB while at PT for back pain. HTN/Afib: Does check BP occasionally at home. Denies any chest pain and dizziness. No further syncopal episodes since last seen. Taking Lisinopril 10 mg once daily and Lopressor 25 mg 1 tab po bid. Echo completed in July 2023, ejection fraction 54%, grade 1 left ventricular diastolic dysfunction. No significant valvular abnormalities. Not currently following with cardiology. 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 Willing to establish care. Reports he is having increased SOB, he reports at physical therapy he is breathing harder and feels as if he is having difficulty breathing. No wheezing. Lipids: Tries to watch his diet. Exercises as able due to hx of asthma. On current regimen of Zocor 80 mg once daily. Tolerating well. Asthma: On current regimen of Advair 115-21 mcg 2 puffs once daily and Flonase 1 times daily. Constipation: He reports that 1-2 days a week he is having constipation. He reports taking Miralax and a stool softner at bedtime. Abdomen: reports his abdomen is distended and has some discomfort that is constant. Intermittent constipation. 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 CAD (coronary artery disease) Constipation Essential hypertension Fatigue, unspecified type H/O ventral hernia repair 04/03/2023 Hiatal hernia 1989 History of coronary artery bypass graft 07/24/2018 VASQUES in situ mammary end to side mid LAD, Vein graft ascending aorta end to side RCA, Vein graft ascending aorta end to side obtuse marginal 1 Hyperlipidemia Peptic ulcer, unspecified site, unspecified as acute or chronic, without mention of hemorrhage, perforation, or obstruction 2004 Unspecified hypothyroidism 1989 PAST SURGICAL HISTORY Procedure Laterality Date ANES HRNA RPR UPR ABD LMBRANDVENTRAL HERNIAANDDEHISC 04/03/[address] Regina Oswald APPENDECTOMY COLONOSCOPY FLX DX W/COLLJ SPEC WHEN PFRMD 06/28/2004 Colonoscopy COLONOSCOPY FLX DX W/COLLJ SPEC WHEN PFRMD 08/06/2015 Colonoscopy CORONARY ARTERY BYPASS GRAFT HX 07/24/2018 VASQUES in situ mammary end to side mid LAD, Vein graft ascending aorta end to side RCA, Vein graft ascending aorta end to side obtuse marginal 1. EGD N/A 06/29/2020 Dr. Keating EGD 05/31/2021 EGD TRANSORAL BIOPSY SINGLE/MULTIPLE 08/30/2009 EGD TRANSORAL BIOPSY SINGLE/MULTIPLE 08/23/2011 repeat in 2 years ESOPHAGOGASTRODUODENOSCOPY TRANSORAL DIAGNOSTIC 10/06/1998 EGD ESOPHAGOGASTRODUODENOSCOPY TRANSORAL DIAGNOSTIC 01/29/2000 EGD ESOPHAGOGASTRODUODENOSCOPY TRANSORAL DIAGNOSTIC 08/04/2003 EGD ESOPHAGOGASTRODUODENOSCOPY TRANSORAL DIAGNOSTIC 08/29/2007 EGD ESOPHAGOGASTRODUODENOSCOPY TRANSORAL DIAGNOSTIC 08/28/2013 EGD ESOPHAGOGASTRODUODENOSCOPY TRANSORAL DIAGNOSTIC 10/08/2017 EGD HEART SURGERY HX HIATAL HERNIA REPAIR HX 08/24/2022 Laparoscopic paraesophageal hernia repair with gastropexy, Primary repair of ventral hernia, EGD LAPAROSCOPIC CHOLECYSTECTOMY 12/15/2018 PAST SURGICAL HISTORY OF N/A 04/25/2017 Back surgery done at [facility], [address] [place] [address] and cleaned up arthritis REPAIR UMBILICAL HERNIA 08/24/2022 ALLERGIES Lipitor [Atorvastatin Calcium], Omnicef [Cefdinir], and Zithromax [Azithromycin] MEDICATIONS Current Outpatient Medications Medication Sig fluticasone-salmeterol HFA (ADVAIR) 115-21 mcg/actuation inhaler Inhale 2 Puffs as instructed two times a day. Rinse mouth after use. tamsulosin (FLOMAX) 0.4 mg TAKE 1 CAPSULE BY MOUTH EVERYDAY AT BEDTIME levothyroxine (LEVOXYL) 175 mcg tablet Take 1 tablet by mouth once daily. Take on empty stomach. For thyroid. metoprolol tartrate, short acting, (LOPRESSOR) 25 mg tablet Take 1 tablet by mouth two times a day. lisinopril (ZESTRIL) 10 mg tablet take 1 tablet by mouth every day simvastatin (ZOCOR) 80 mg tablet take 1 tablet by mouth everyday at bedtime pantoprazole DR (PROTONIX) 40 mg tablet Take 1 tablet by mouth two times a day. Take on empty stomach, 1/2 hr before meal. fluticasone (FLONASE) 50 mcg/actuation nasal spray Use 2 Sprays in each nostril once daily. Rinse mouth after use. aspirin, enteric coated (ASPIRIN, ENTERIC COATED) 325 mg EC tablet Take 1 tablet by mouth once daily. magnesium oxide (MAG-OX) 400 mg (241.3 mg magnesium) tablet Take 1 tablet by mouth once daily. acetaminophen (TYLENOL) 325 mg tablet Take 2 tablets by m (more content not included)...[facility]02-04-2025 NoteHNO ID: [id number] Author: HERMAN KAUR PT Service: ? Author Type: Physical Therapist Type: Progress Notes Filed: 03/18/2024 17:41 Note Text: Episode Visit Count: 7 Therapist That Will Accept/Oversee The Plan Of Care: Herman Kaur PT Start of Care Date: 02/14/24 Onset Date: 12/15/23 Plan of Care Certification Date: 03/18/24 Next Certification Due Date: 04/15/24 Patient Identified by Name and Date of : Yes REHABILITATION AND SPORTS THERAPY PHYSICAL THERAPY PROGRESS REPORT PLAN OF CARE UPDATE: Assessment: Jayden Craig demonstrates no improvement in rising from a chair, standing, and walking. The patient has progressed toward goals minimally but he has not been able to complete HEP. He does report a decrease in pain with manual lumbar belt traction. Patient continues to present with impairments in ADL's, gait, independence in exercise, overall function, patient reported outcome measures, posture, range of motion, strength, and symptom management that interfere with standing, walking, rising from a chair (regional liaison) . Current prognosis is Fair due to: clinical presentation, chronic nature of impairments, limited tolerance to activity, poor past response to therapy intervention. The patient will benefit from continued skilled therapy services to meet the updated goals for this plan of care as noted below. Updated: 03/18/24 Goals for Episode of Care: established 02/14/24 Patient reported outcome of physical function will increase T-score by a minimum 5 points. - Not MET, will continue Independent in home exercises. - Partially MET, will continue Patient will decrease pain to 0/10 with functional activities to allow patient to improve standing tolerance for ADLs. - Not MET, will continue Restore pain-free lumbar ROM to prior functional level to allow for improved tolerance with regional liaison. - Not MET, will continue Stand / Walk without limitation, without pain/symptoms for return to prior functional level. - Not MET, will continue Patient will be able to tolerate functional activities for regional liaison without increased symptoms. - Not MET, will continue Patient will increase strength of core/postural muscles to WFL to allow for improved standing tolerance. - Not MET, will continue Patient Goals: decrease pain and move around normally without pain. - Not MET, will continue Time Frame for Goals and Treatment : 04/15/24 Patient Goals: decrease pain and move around normally without pain. Planned Interventions, Frequency, and Duration: 1x/week, 4 weeks Total Number of Visits Planned: 4 Patient to be seen for Therapeutic exercise (20884), Neuromuscular re-education (75565), Manual therapy (73913), Therapeutic activities (96361), Self-alf management (80441), Patient/Family/Caregiver Education, Gait Training (97868), Body Mechanics Training PLAN FOR NEXT VISIT: Continue with postural stretching and strengthening with flexion directional preference. Continue manual lumbar belt traction. Classification Pain Mechanism Classification: Neuropathic Low Back Pain Classification: Symptom Modulation SUBJECTIVE: Pt reports that his symptoms fluctuate. He reports that this morning his symptoms were severe but that currently he feels better. Overall he feels that he is better than he was at evaluation. He reports that this morning his pain was located in his R flank and down lateral side of R thigh to mid thigh. He reports that his standing and walking tolerance are unchanged. He reports that his tolerance to complete regional liaison is the same. Patient Goals: decrease pain and move around normally without pain. Functional Limitations: standing, walking, rising from a chair (regional liaison) Prior Level of Function: Independent with restrictions Independent with the following restrictions: chronic low back pain and flexed trunk in standing and with walking. Intake Information: Prescription present Pain: Pain Pain Level: 3 Pain Location: Low Back/Lumbar Spine - Right Description: Sore Frequency: Intermittent Post Treatment Pain Post Treatment Pain Level: Better Post Treatment Symptoms: After traction, pt reported feeling better. When traction stopped, he immediately reported that he felt better during traction. PROMIS Scales 03/11/2024 02/14/2024 01/13/2024 Higher is Better Phys Func - T Score 39 (moderate dysfunction) 38 (moderate dysfunction) 38 (moderate dysfunction) Phys Func - Percentile 14 12 12 Self-Eff Symptom - T Score 44 (Average) 38 (Low) 38 (Low) Self-Eff Symptom - Percentile 27 12 12 02/14/2024 01/13/2024 07/12/2021 Lower is Better Pain Interference - T Score 64 (moderate) 62 (moderate) 63 (moderate) Pain Interference - Percentile 8 12 10 T-scores: mean of general population = 50. 5 points is clinically meaningfully difference Percentiles provide an indication of how the patient's score ranks in relation t (more content not included)...[facility]02-04-2025 History of Present illness Narrative* Herman Kaur PT - 03/18/2024 5:37 PM EST Images from the original note were not included. Episode Visit Count: 7 Therapist That Will Accept/Oversee The Plan Of Care: Herman Golias, PT Start of Care Date: 02/14/24 Onset Date: 12/15/23 Plan of Care Certification Date: 03/18/24 Next Certification Due Date: 04/15/24 Patient Identified by Name and Date of : Yes REHABILITATION AND SPORTS THERAPY PHYSICAL THERAPY PROGRESS REPORT PLAN OF CARE UPDATE: Assessment: Jayden Craig demonstrates no improvement in rising from a chair, standing, and walking. The patient has progressed toward goals minimally but he has not been able to complete HEP. He does report a decrease in pain with manual lumbar belt traction. Patient continues to present with impairments in ADL's, gait, independence in exercise, overall function, patient reported outcome measures, posture,range of motion, strength, and symptom management that interfere with standing, walking, rising from a chair (regional liaison) . Current prognosis is Fair due to: clinical presentation, chronic nature of impairments, limited tolerance to activity, poor past response to therapy intervention. The patient will benefit from continued skilled therapy services to meet the updated goals for this plan of care as noted below. Updated: 03/18/24 Goals for Episode of Care: established 02/14/24 Patient reported outcome of physical function will increase T-score by a minimum 5 points. - Not MET, will continue Independent in home exercises. - Partially MET, will continue Patient will decrease pain to 0/10 with functional activities to allow patient to improve standing tolerance for ADLs. - Not MET, will continue Restore pain-free lumbar ROM to prior functional level to allow for improved tolerance with regional liaison. - Not MET, will continue Stand / Walk without limitation, without pain/symptoms for return to prior functional level. - Not MET, will continue Patient will be able to tolerate functional activities for regional liaison without increased symptoms. - Not MET, will continue Patient will increase strength of core/postural muscles to WFL to allow for improved standing tolerance. - Not MET, will continue Patient Goals: decrease pain and move around normally without pain. - Not MET, will continue Time Frame for Goals and Treatment : 04/15/24 Patient Goals: decrease pain and move around normally without pain. Planned Interventions, Frequency, and Duration: 1x/week, 4 weeks Total Number of Visits Planned: 4 Patient to be seen for Therapeutic exercise (45802), Neuromuscular re-education (52568), Manual therapy (27394), Therapeutic activities (88115), Self-alf management (47496), Patient/Family/Caregiver Education, Gait Training (72293), Body Mechanics Training PLAN FOR NEXT VISIT: Continue with postural stretching and strengthening with flexion directional preference. Continue manual lumbar belt traction. Classification Pain Mechanism Classification: Neuropathic Low Back Pain Classification: Symptom Modulation SUBJECTIVE: Pt reports that his symptoms fluctuate. He reports that this morning his symptoms were severe but that currently he feels better. Overall he feels that he is better than he was at evaluation. He reports that this morning his pain was located in his R flank and down lateral side of R thigh to mid thigh. He reports that his standing and walking tolerance are unchanged. He reports that his tolerance to complete regional liaison is the same. Patient Goals: decrease pain and move around normally without pain. Functional Limitations: standing, walking, rising from a chair (regional liaison) Prior Level of Function: Independent with restrictions Independent with the following restrictions: chronic low back pain and flexed trunk in standing andwith walking. Intake Information: Prescription present Pain: Pain Pain Level: 3 Pain Location: Low Back/Lumbar Spine - Right Description: Sore Frequency: Intermittent Post Treatment Pain Post Treatment Pain Level: Better Post Treatment Symptoms: After traction, pt reported feeling better. When traction stopped, he immediately reported that he felt better during traction. PROMIS Scales 03/11/2024 02/14/2024 01/13/2024 Higher is Better Phys Func - T Score 39 (moderate dysfunction) 38 (moderate dysfunction) 38 (moderate dysfunction) Phys Func - Percentile 14 12 12 Self-Eff Symptom - T Score 44 (Average) 38 (Low) 38 (Low) Self-Eff Symptom - Percentile 27 12 12 02/14/2024 01/13/2024 07/12/2021 Lower is Better Pain Interference - T Score 64 (moderate) 62 (moderate) 63 (moderate) Pain Interference - Percentile 8 12 10 T-scores: mean of general population = 50. 5 points is clinically meaningfully difference Percentiles provide an indication of how the patient's score ranks in relation to the general population. Higher percentile rankings indicate better function/quality of life. 50th percentile is the average of the general population and indicates half of respondents had a worse score. OBJECTIVE MEASURES WITH LEVEL OF FUNCTION: Posture / Alignment Posture: Forward head, Increased thoracic kyphosis, Rounded shoulders (severely flexed trunk in standing) Lumbar Spine AROM Lumbar Flexion: Normal Lumbar Extension: Major limitation, Increased pain Lumbar R Side-Bend: Normal Lumbar L Side-Bend: Normal Lumbar R Rotation: Moderate limitation, Increased pain Lumbar L Rotation: Moderate limitation, Increased pain LE Strength Trunk Strength: Unchanged Gait Gait Observation: forward flexed trunk posture with forward head which is long standing TREATMENT: Therapeutic Exercise: 1: [employer] StepOne seat #13 x6 minutes (Pt provided an update on his condition and goals reviewed for plan of care update.) 2: Thorough investigation and review of HEP to determine his barriers to compliance. Original instructions reviewed and he was encouraged to follow the original instructions as long as the HEP does not cause increased pain. 3: The intended effect of HEP explained in detail and rationale provided for consistent completion daily. 4: His report of worsening fatigue and shortness of breath was discussed and PCP's office was updated. Pt is scheduled to see PCP 03/19/24 for a check up on this worsening symptom. Skilled Intervention: Patient was educated in proper exercise technique and purpose for exercises. Reviewed and educated patient on additions/changes for home exercise program to clarify original instructions. Skilled judgment was used in selection of appropriate interventions. Provided written instruction for home exercise program to facilitate proper performance and compliance. Correct performance of therapeutic exercises was facilitated with verbal and visual cuing. Patient education as noted. Manual Therapy: Manual Traction: After therex, manual lumbar belt traction with pt supine and LEs elevated on leg rest and force to pt tolerance x10 minutes. Skilled Intervention: Manual skills to improve joint mobility, ROM, and decrease pain. Utilized anatomy knowledge of the therapist, and assessment of patient's response to intervention. Billing Therapeutic Exercise Treatment Minutes: 35 Manual TherapyTreatment Minutes: 10 Skilled Treatment Time Minutes (timed and untimed codes): 45 Total Session Time (minutes): 45 Session Start Time : 1403 Session Stop Time : 1448 Herman Kaur PT documented in this encounterOhio[facility] NoteHNO ID: [id number] Author: MARLY TYLER LPN Service: ? Author Type: LICENSED NURSE Type: Progress Notes Filed: 03/18/2024 16:46 Note Text: Pt notified of provider message. Pt scheduled for 03/19/24. [facility] History of Present illness Narrative* Marly Tyler LPN - 03/18/2024 4:46 PM EST Pt notified of provider message. Pt scheduled for 03/19/24. Marly Tyler LPN * Elza Wall MA - 03/18/2024 4:39 PM EST Message left for pt to call back. Elza Wall MA * Eloisa Espinal MD - 03/18/2024 4:04 PM EST Received a Staff Message from PT reporting increasing fatigue and SOB. Please call pt and schedule appt to be evaluated Eloisa Espinal MD documented in this encounterOhio[facility]02-04-2025 NoteHNO ID: [id number] Author: ELZA WALL MA Service: ? Author Type: Accounting Assistant Type: Progress Notes Filed: 03/18/2024 16:46 Note Text: Message left for pt to call back. Elza Wall [facility]02-04-2025 NoteHNO ID: [id number] Author: ELOISA ESPINAL MD Service: ? Author Type: Physician Type: Progress Notes Filed: 03/18/2024 16:46 Note Text: Received a Staff Message from PT reporting increasing fatigue and SOB. Please call pt and schedule appt to be evaluated Eloisa Espinal [facility]01-28-2025 History of Present illness Narrative* Martha Maher PTA - 03/11/2024 2:23 PM EST Program_ID:[id number] Access Code: [email or web address] URL: [email or web address] Date: 03-11-2024 Prepared By: Herman Kaur Program Notes Exercises - Supine Lower Trunk Rotation - 3 x daily - 7 x weekly - 2 sets - 10 reps - Hooklying Single Knee to Chest Stretch - 3 x daily - 7 x weekly - sets - 3 reps - Supine Double Knee to Chest Modified - 3 x daily - 7 x weekly - sets - 3 reps - Supine Transversus Abdominis Bracing - Hands on Ground - 3 x daily - 7 x weekly - 2 sets - 10 reps - Curl Up with Arms Crossed - 3 x daily - 7 x weekly - 2 sets - 10 reps - Seated Flexion Stretch - 1 x daily - 7 x weekly - 1-2 sets - 10 reps - Scapular Retraction with Resistance - 1 x daily - 7 x weekly - 2 sets - 10 reps * Herman Kaur, PT - 03/11/2024 1:55 PM EST Episode Visit Count: 6 Therapist That Will Accept/Oversee The Plan Of Care: Herman Kaur PT Start of Care Date: 02/14/24 Onset Date: 12/15/23 Plan of Care Certification Date: 02/14/24 Next Certification Due Date: 03/27/24 Patient Identified by Name and Date of : Yes REHABILITATION AND SPORTS THERAPY PHYSICAL THERAPY TREATMENT NOTE ASSESSMENT: Jayden Craig tolerated the session with fatigue and expected muscle soreness. He demonstrated improvements in core strengthening at side of plinth without back support. The patient willcontinue to benefit from ongoing skilled physical therapy to progress toward set goals. PLAN FOR NEXT VISIT: PN SUBJECTIVE: Pt reports that he is feeling pretty good today. OVeral lhis back is improving. Pt states that every once in a while he has to skip a day of exercise because of what he did the day before. Pain: Pain Pain Level: 2 Pain Location: Low Back/Lumbar Spine - Right Frequency: Intermittent OBJECTIVE MEASURES WITH LEVEL OF FUNCTION: TREATMENT: Therapeutic Exercise: 1: [employer] StepOne seat #13 x6 minutes (1:1 throughout. Discussed current condition.) 2: SKTC 3x30 seconds each side 3: supine DKTC x30 seconds 4: supine transverse abdominal exercise via shoulder extension 2 second holds 2x10 5: *seated blue t-band scapular retraction 3x15 6: seated blue t-band perturbations R, L and forward 3x15 each 7: seated blue t-band paloff press 2x10 each from both lateral directions 8: supine LTR x10 B Skilled Intervention: Patient was educated in proper exercise technique and purpose for exercises. Reviewed and educated patient on additions/changes for home exercise program as above (*). Skilled judgment was used in selection of appropriate interventions. Provided written instruction for home exercise program to facilitate proper performance and compliance. Correct performance of therapeutic exercises was facilitated with verbal and visual cuing. Manual Therapy: Manual Traction: After therex, manual lumbar belt traction with pt supine and LEs elevated on leg rest and force to pt tolerance x10 minutes. Skilled Intervention: Manual skills to improve joint mobility, ROM, and decrease pain. Utilized anatomy knowledge of the therapist, and assessment of patient's response to intervention. Billing Therapeutic Exercise Treatment Minutes: 38 Manual TherapyTreatment Minutes: 10 Skilled Treatment Time Minutes (timed and untimed codes): 48 Total Session Time (minutes): 48 Session Start Time : 1352 Session Stop Time : 1440 ALEXA Thompson PT documented in this encounterOhiohealth [facility]01-28-2025 NoteHNO ID: [id number] Author: HERMAN KAUR PT Service: ? Author Type: Physical Therapist Type: Progress Notes Filed: 03/11/2024 14:57 Note Text: Episode Visit Count: 6 Therapist That Will Accept/Oversee The Plan Of Care: Herman Kaur PT Start of Care Date: 02/14/24 Onset Date: 12/15/23 Plan of Care Certification Date: 02/14/24 Next Certification Due Date: 03/27/24 Patient Identified by Name and Date of : Yes REHABILITATION AND SPORTS THERAPY PHYSICAL THERAPY TREATMENT NOTE ASSESSMENT: Jayden Craig tolerated the session with fatigue and expected muscle soreness. He demonstrated improvements in core strengthening at side of plinth without back support. The patient will continue to benefit from ongoing skilled physical therapy to progress toward set goals. PLAN FOR NEXT VISIT: PN SUBJECTIVE: Pt reports that he is feeling pretty good today. OVeral lhis back is improving. Pt states that every once in a while he has to skip a day of exercise because of what he did the day before. Pain: Pain Pain Level: 2 Pain Location: Low Back/Lumbar Spine - Right Frequency: Intermittent OBJECTIVE MEASURES WITH LEVEL OF FUNCTION: TREATMENT: Therapeutic Exercise: 1: SciFit StepOne seat #13 x6 minutes (1:1 throughout. Discussed current condition.) 2: SKTC 3x30 seconds each side 3: supine DKTC x30 seconds 4: supine transverse abdominal exercise via shoulder extension 2 second holds 2x10 5: *seated blue t-band scapular retraction 3x15 6: seated blue t-band perturbations R, L and forward 3x15 each 7: seated blue t-band paloff press 2x10 each from both lateral directions 8: supine LTR x10 B Skilled Intervention: Patient was educated in proper exercise technique and purpose for exercises. Reviewed and educated patient on additions/changes for home exercise program as above (*). Skilled judgment was used in selection of appropriate interventions. Provided written instruction for home exercise program to facilitate proper performance and compliance. Correct performance of therapeutic exercises was facilitated with verbal and visual cuing. Manual Therapy: Manual Traction: After therex, manual lumbar belt traction with pt supine and LEs elevated on leg rest and force to pt tolerance x10 minutes. Skilled Intervention: Manual skills to improve joint mobility, ROM, and decrease pain. Utilized anatomy knowledge of the therapist, and assessment of patient's response to intervention. Billing Therapeutic Exercise Treatment Minutes: 38 Manual TherapyTreatment Minutes: 10 Skilled Treatment Time Minutes (timed and untimed codes): 48 Total Session Time (minutes): 48 Session Start Time : 1352 Session Stop Time : 1440 Martha Maher, ALEXA Kaur, [facility]01-24-2025 Telephone encounter Note* Telephone Encounter - Eloisa Espinal MD - 03/07/2024 4:40 PM EST OK to refill as ordered Eloisa Espinal MD [facility]01-24-2025 Miscellaneous Notes* Telephone Encounter - Eloisa Espinal MD - 03/07/2024 4:40 PM EST OK to refill as ordered Eliosa Espinal MD * Telephone Encounter - Huong Park RN - 03/07/2024 3:14 PM EST This medication came up as non-formulary, I did not know if provider wanted to change it to one of the formulary ones that it provided. The patient has been identified by name and date of : Yes Caregiver verified no other encounters exist for this prescription request: Yes Caregiver confirmed with patient/requestor that no other refills are due, in the near future, with this provider at this time: Yes The last office visit in the department: 01/12/2024 Does the patient have a future office visit with this provider/department: Yes 05/16/2024 Requested Prescriptions Pending Prescriptions Disp Refills fluticasone-salmeterol HFA (ADVAIR) 115-21 mcg/actuation inhaler 12 g 5 Sig: Inhale 2 Puffs as instructed two times a day. Rinse mouth after use. Huong Park RN March 07, 2024 3:15 PM documented in this encounterOhiohealth [facility]01-24-2025 Telephone encounter Note * Telephone Encounter - Huong Park RN - 03/07/2024 3:14 PM EST This medication came up as non-formulary, I did not know if provider wanted to change it to one of the formulary ones that it provided. The patient has been identified by name and date of : Yes Caregiver verified no other encounters exist for this prescription request: Yes Caregiver confirmed with patient/requestor that no other refills are due, in the near future, with this provider at this time: Yes The last office visit in the department: 01/12/2024 Does the patient have a future office visit with this provider/department: Yes 05/16/2024 Requested Prescriptions Pending Prescriptions Disp Refills fluticasone-salmeterol HFA (ADVAIR) 115-21 mcg/actuation inhaler 12 g 5 Sig: Inhale 2 Puffs as instructed two times a day. Rinse mouth after use. Huong Park RN March 07, 2024 3:15 PM [facility]01-21-[facility] History of Present illness Narrative* Martha Maher PTA - 03/04/2024 2:27 PM EST Program_ID:[id number] Access Code: [email or web address] URL: [email or web address] Date: 03-04-2024 Prepared By: Herman Kaur Program Notes Exercises - Supine Lower Trunk Rotation - 3 x daily - 7 x weekly - 2 sets - 10 reps - Hooklying Single Knee to Chest Stretch - 3 x daily - 7 x weekly - sets - 3 reps - Supine Double Knee to Chest Modified - 3 x daily - 7 x weekly - sets - 3 reps - Supine Transversus Abdominis Bracing - Hands on Ground - 3 x daily - 7 x weekly - 2 sets - 10 reps - Curl Up with Arms Crossed - 3 x daily - 7 x weekly - 2 sets - 10 reps - Seated Flexion Stretch - 1 x daily - 7 x weekly - 1-2 sets - 10 reps * Herman Kaur, PT - 03/04/2024 1:59 PM EST Episode Visit Count: 5 Therapist That Will Accept/Oversee The Plan Of Care: Herman Kaur PT Start of Care Date: 02/14/24 Onset Date: 12/15/23 Plan of Care Certification Date: 02/14/24 Next Certification Due Date: 03/27/24 Patient Identified by Name and Date of : Yes REHABILITATION AND SPORTS THERAPY PHYSICAL THERAPY TREATMENT NOTE ASSESSMENT: Jayden Craig tolerated the session with fatigue and expected muscle soreness. He demonstrated difficulty with crunches this visit. The patient will continue to benefit from ongoing skilled physical therapy to progress toward set goals. PLAN FOR NEXT VISIT: Consider Stir the Pot with BTB. Continue with flexion directional preference and manual lumbar traction. SUBJECTIVE: Pt reports that last Sunday and Sunday his back was killing him and he couldn't do any of his exercises. Sunday felt better and have been able to do exercises since Sunday. Pt states that he is feeling good today. Pain: Pain Pain Level: 2 Pain Location: Low Back/Lumbar Spine - Right Frequency: Intermittent OBJECTIVE MEASURES WITH LEVEL OF FUNCTION: Improved lumbar flexibility with seated, repeated lumbar flexion. TREATMENT: Therapeutic Exercise: 1: [employer]Fit StepOne seat #13 x6 minutes (1:1 throughout. Discussed current condition.) 2: *Seated, repated lumbar flexion 2x10 (to utilize on his bad days) 3: seated blue t-band perturbations R, L and forward 3x15 each 4: seated blue t-band paloff press 2x10 each from both lateral directions 5: seated blue t-band scapular retraction 2x10 6: supine LTR x10 B 7: supine transverse abdominal exercise via shoulder extension 2 second holds 2x10 8: supine crunches in very small range x10 Skilled Intervention: Patient was educated in proper exercise technique and purpose for exercises. Reviewed and educated patient on additions/changes for home exercise program as above (*). Skilled judgment was used in selection of appropriate interventions. Provided written instruction for home exercise program to facilitate proper performance and compliance. Correct performance of therapeutic exercises was facilitated with verbal and visual cuing. Manual Therapy: Manual Traction: After therex, manual lumbar belt traction with pt supine and LEs elevated on leg rest and force to pt tolerance x10 minutes. Skilled Intervention: Manual skills to improve joint mobility, ROM, and decrease pain. Utilized anatomy knowledge of the therapist, and assessment of patient's response to intervention. Billing Therapeutic Exercise Treatment Minutes: 37 Manual TherapyTreatment Minutes: 10 Skilled Treatment Time Minutes (timed and untimed codes): 47 Total Session Time (minutes): 47 Session Start Time : 1355 Session Stop Time : 1442 ALEXA Thompson PT documented in this encounterOhiohealth [facility]01-21-2025 NoteHNO ID: [id number] Author: HERMAN KAUR PT Service: ? Author Type: Physical Therapist Type: Progress Notes Filed: 03/04/2024 15:28 Note Text: Episode Visit Count: 5 Therapist That Will Accept/Oversee The Plan Of Care: Herman Kaur PT Start of Care Date: 02/14/24 Onset Date: 12/15/23 Plan of Care Certification Date: 02/14/24 Next Certification Due Date: 03/27/24 Patient Identified by Name and Date of : Yes REHABILITATION AND SPORTS THERAPY PHYSICAL THERAPY TREATMENT NOTE ASSESSMENT: Jayden Craig tolerated the session with fatigue and expected muscle soreness. He demonstrated difficulty with crunches this visit. The patient will continue to benefit from ongoing skilled physical therapy to progress toward set goals. PLAN FOR NEXT VISIT: Consider Stir the Pot with BTB. Continue with flexion directional preference and manual lumbar traction. SUBJECTIVE: Pt reports that last Sunday and Sunday his back was killing him and he couldn't do any of his exercises. Sunday felt better and have been able to do exercises since Sunday. Pt states that he is feeling good today. Pain: Pain Pain Level: 2 Pain Location: Low Back/Lumbar Spine - Right Frequency: Intermittent OBJECTIVE MEASURES WITH LEVEL OF FUNCTION: Improved lumbar flexibility with seated, repeated lumbar flexion. TREATMENT: Therapeutic Exercise: 1: [employer] StepOne seat #13 x6 minutes (1:1 throughout. Discussed current condition.) 2: *Seated, repated lumbar flexion 2x10 (to utilize on his bad days) 3: seated blue t-band perturbations R, L and forward 3x15 each 4: seated blue t-band paloff press 2x10 each from both lateral directions 5: seated blue t-band scapular retraction 2x10 6: supine LTR x10 B 7: supine transverse abdominal exercise via shoulder extension 2 second holds 2x10 8: supine crunches in very small range x10 Skilled Intervention: Patient was educated in proper exercise technique and purpose for exercises. Reviewed and educated patient on additions/changes for home exercise program as above (*). Skilled judgment was used in selection of appropriate interventions. Provided written instruction for home exercise program to facilitate proper performance and compliance. Correct performance of therapeutic exercises was facilitated with verbal and visual cuing. Manual Therapy: Manual Traction: After therex, manual lumbar belt traction with pt supine and LEs elevated on leg rest and force to pt tolerance x10 minutes. Skilled Intervention: Manual skills to improve joint mobility, ROM, and decrease pain. Utilized anatomy knowledge of the therapist, and assessment of patient's response to intervention. Billing Therapeutic Exercise Treatment Minutes: 37 Manual TherapyTreatment Minutes: 10 Skilled Treatment Time Minutes (timed and untimed codes): 47 Total Session Time (minutes): 47 Session Start Time : 1355 Session Stop Time : 1442 Martha Maher, SCORING MACHINE OPERATOR Herman Vincent, [facility]01-14-2025 NoteHNO ID: [id number] Author: HERMAN KAUR PT Service: ? Author Type: Physical Therapist Type: Progress Notes Filed: 02/26/2024 15:33 Note Text: Episode Visit Count: 4 Therapist That Will Accept/Oversee The Plan Of Care: Herman Kaur PT Start of Care Date: 02/14/24 Onset Date: 12/15/23 Plan of Care Certification Date: 02/14/24 Next Certification Due Date: 03/27/24 Patient Identified by Name and Date of : Yes REHABILITATION AND SPORTS THERAPY PHYSICAL THERAPY TREATMENT NOTE ASSESSMENT: Jayden Craig tolerated the session with fatigue, decreased symptoms, expected muscle soreness, and no issues. He demonstrated improvements in pain and exercise tolerance. The patient will continue to benefit from ongoing skilled physical therapy to progress toward set goals. Classification Pain Mechanism Classification: Neuropathic Low Back Pain Classification: Symptom Modulation PLAN FOR NEXT VISIT: Continue with core strengthening with flexion directional preference progressing to tolerance. Continue manual lumbar belt traction. SUBJECTIVE: Pt reports continued progressive improvements with decreasing pain overall. He reports compliance with HEP 2x day most days. He reports that although pain is less, he still has pain with certain activities like vacuuming. He denies any pain to start today. He describes his current symptoms as a little bit. He reports that his symptoms have centralized to his low back and no longer travel to his R knee. He feels that the traction is still beneficial. Pain: Pain Pain Level: (2-3/10) Pain Location: Low Back/Lumbar Spine - Right Description: (no radicular symptoms) Frequency: Intermittent Post Treatment Pain Post Treatment Pain Level: Better Post Treatment Pain Location: Low Back/Lumbar Spine - Right Post Treatment Pain Description: (I feel it but it is almost a 1/10) Post Treatment Symptoms: After session, pt reported that he felt better with decreased pain and a sensation of fatigue. OBJECTIVE MEASURES WITH LEVEL OF FUNCTION: TREATMENT: Therapeutic Exercise: 1: [employer] StepOne seat #13 x5 minutes,became SOB SpO2 was 98% once seated on mat table. 2: seated blue t-band perturbations R, L and forward 3x15 each 3: seated blue t-band paloff press 2x10 each from both lateral directions 4: seated blue t-band scapular retraction 2x10 5: supine LTR x10 6: supine R SKTC x30 seconds 7: supine DKTC x30 seconds 8: supine transverse abdominal exercise via shoulder extension 2 second holds 2x10 9: supine crunches in very small range 2x10 Skilled Intervention: Patient was educated in proper exercise technique and purpose for exercises. Skilled judgment was used in selection of appropriate interventions. Correct performance of therapeutic exercises was facilitated with verbal, visual, and tactile cuing. Patient education as noted. Manual Therapy: Manual Traction: After therex, manual lumbar belt traction with pt supine and LEs elevated on leg rest and force to pt tolerance x10 minutes. Skilled Intervention: Manual skills to improve joint mobility, ROM, and decrease pain. Utilized anatomy knowledge of the therapist, and assessment of patient's response to intervention. Billing Therapeutic Exercise Treatment Minutes: 33 Manual TherapyTreatment Minutes: 10 Skilled Treatment Time Minutes (timed and untimed codes): 43 Total Session Time (minutes): 43 Session Start Time : 1403 Session Stop Time : 1446 Herman Kaur [facility]01-14-2025 History of Present illness Narrative* Herman Kaur, PT - 02/26/2024 3:31 PM EST Episode Visit Count: 4 Therapist That Will Accept/Oversee The Plan Of Care: Herman Kaur PT Start of Care Date: 02/14/24 Onset Date: 12/15/23 Plan of Care Certification Date: 02/14/24 Next Certification Due Date: 03/27/24 Patient Identified by Name and Date of : Yes REHABILITATION AND SPORTS THERAPY PHYSICAL THERAPY TREATMENT NOTE ASSESSMENT: Jayden Craig tolerated the session with fatigue, decreased symptoms, expected muscle soreness, and no issues. He demonstrated improvements in pain and exercise tolerance. The patient will continue to benefit from ongoing skilled physical therapy to progress toward set goals. Classification Pain Mechanism Classification: Neuropathic Low Back Pain Classification: Symptom Modulation PLAN FOR NEXT VISIT: Continue with core strengthening with flexion directional preference progressing to tolerance. Continue manual lumbar belt traction. SUBJECTIVE: Pt reports continued progressive improvements with decreasing pain overall. He reports compliance with HEP 2x day most days. He reports that although pain is less, he still has pain with certain activities like vacuuming. He denies any pain to start today. He describes his current symptoms as a little bit. He reports that his symptoms have centralized to his low back and no longer travel to his R knee. He feels that the traction is still beneficial. Pain: Pain Pain Level: (2-3/10) Pain Location: Low Back/Lumbar Spine - Right Description: (no radicular symptoms) Frequency: Intermittent Post Treatment Pain Post Treatment Pain Level: Better Post Treatment Pain Location: Low Back/Lumbar Spine - Right Post Treatment Pain Description: (I feel it but it is almost a 1/10) Post Treatment Symptoms: After session, pt reported that he felt better with decreased pain and a sensation of fatigue. OBJECTIVE MEASURES WITH LEVEL OF FUNCTION: TREATMENT: Therapeutic Exercise: 1: [employer] StepOne seat #13 x5 minutes,became SOB SpO2 was 98% once seated on mat table. 2: seated blue t-band perturbations R, L and forward 3x15 each 3: seated blue t-band paloff press 2x10 each from both lateral directions 4: seated blue t-band scapular retraction 2x10 5: supine LTR x10 6: supine R SKTC x30 seconds 7: supine DKTC x30 seconds 8: supine transverse abdominal exercise via shoulder extension 2 second holds 2x10 9: supine crunches in very small range 2x10 Skilled Intervention: Patient was educated in proper exercise technique and purpose for exercises. Skilled judgment was used in selection of appropriate interventions. Correct performance of therapeutic exercises was facilitated with verbal, visual, and tactile cuing. Patient education as noted. Manual Therapy: Manual Traction: After therex, manual lumbar belt traction with pt supine and LEs elevated on leg rest and force to pt tolerance x10 minutes. Skilled Intervention: Manual skills to improve joint mobility, ROM, and decrease pain. Utilized anatomy knowledge of the therapist, and assessment of patient's response to intervention. Billing Therapeutic Exercise Treatment Minutes: 33 Manual TherapyTreatment Minutes: 10 Skilled Treatment Time Minutes (timed and untimed codes): 43 Total Session Time (minutes): 43 Session Start Time : 1403 Session Stop Time : 1446 Herman Kaur PT documented in this encounterOhio[facility] NoteHNO ID: [id number] Author: HERMAN KAUR PT Service: ? Author Type: Physical Therapist Type: Progress Notes Filed: 02/20/2024 15:10 Note Text: Episode Visit Count: 3 Therapist That Will Accept/Oversee The Plan Of Care: Herman Kaur PT Start of Care Date: 02/14/24 Onset Date: 12/15/23 Plan of Care Certification Date: 02/14/24 Next Certification Due Date: 03/27/24 Patient Identified by Name and Date of : Yes REHABILITATION AND SPORTS THERAPY PHYSICAL THERAPY TREATMENT NOTE ASSESSMENT: Jayden Craig tolerated the session with fatigue, decreased symptoms, and expected muscle soreness. He demonstrated improvements in pain with stretching and manual lumbar traction. The patient will continue to benefit from ongoing skilled physical therapy to progress toward set goals. PLAN FOR NEXT VISIT: Continue with core strengthening with flexion directional preference. Consider adding alt toe taps with TA activation. SUBJECTIVE: Pt reports that his back is improving. Pain: Pain Pain Level: 3 Pain Location: Low Back/Lumbar Spine - Right, Buttocks - Right, Hip - Right, Thigh - Right Frequency: Intermittent, Standing, Walking Post Treatment Pain Post Treatment Pain Level: 0 Post Treatment Pain Location: Low Back/Lumbar Spine - Right, Buttocks - Right, Hip - Right, Thigh - Right OBJECTIVE MEASURES WITH LEVEL OF FUNCTION: Good technique with TA activation via shoulder extension in supine. TREATMENT: Therapeutic Exercise: 1: [employer] StepOne seat #13 x5 minutes,became SOB SpO2 was 98% once seated on mat table. (Pt provided an update on his condition, HEP corrected and plan of care reviewed.) 2: supine LTR 2x10 3: supine R SKTC 3x30 seconds 4: supine DKTC 3x30 seconds 5: supine transverse abdominal exercise via shoulder extension 2 second holds 2x10 6: supine crunches in very small range 2x10 Skilled Intervention: Patient was educated in proper exercise technique and purpose for exercises. Skilled judgment was used in selection of appropriate interventions. Correct performance of therapeutic exercises was facilitated with verbal and visual cuing. Manual Therapy: Manual Traction: After therex, manual lumbar belt traction with pt supine and LEs elevated on leg rest and force to pt tolerance x10 minutes. Skilled Intervention: Manual skills to improve joint mobility, ROM, and decrease pain. Utilized anatomy knowledge of the therapist, and assessment of patient's response to intervention. Billing Therapeutic Exercise Treatment Minutes: 36 Manual TherapyTreatment Minutes: 10 Skilled Treatment Time Minutes (timed and untimed codes): 46 Total Session Time (minutes): 46 Session Start Time : 3897 Session Stop Time : 1443 Martha Maher, SCORING MACHINE OPERATOR Herman Kaur, [facility]01-08-2025 History of Present illness Narrative* Yoselin Kaurnt, PT - 02/20/2024 2:00 PM EST Episode Visit Count: 3 Therapist That Will Accept/Oversee The Plan Of Care: Herman Kaur PT Start of Care Date: 02/14/24 Onset Date: 12/15/23 Plan of Care Certification Date: 02/14/24 Next Certification Due Date: 03/27/24 Patient Identified by Name and Date of : Yes REHABILITATION AND SPORTS THERAPY PHYSICAL THERAPY TREATMENT NOTE ASSESSMENT: Jayden Craig tolerated the session with fatigue, decreased symptoms, and expected muscle soreness. He demonstrated improvements in pain with stretching and manual lumbar traction. The patient will continue to benefit from ongoing skilled physical therapy to progress toward set goals. PLAN FOR NEXT VISIT: Continue with core strengthening with flexion directional preference. Consider adding alt toe taps with TA activation. SUBJECTIVE: Pt reports that his back is improving. Pain: Pain Pain Level: 3 Pain Location: Low Back/Lumbar Spine - Right, Buttocks - Right, Hip - Right, Thigh - Right Frequency: Intermittent, Standing, Walking Post Treatment Pain Post Treatment Pain Level: 0 Post Treatment Pain Location: Low Back/Lumbar Spine - Right, Buttocks - Right, Hip - Right, Thigh -Right OBJECTIVE MEASURES WITH LEVEL OF FUNCTION: Good technique with TA activation via shoulder extension in supine. TREATMENT: Therapeutic Exercise: 1: [employer] StepOne seat #13 x5 minutes,became SOB SpO2 was 98% once seated on mat table. (Pt provided an update on his condition, HEP corrected and plan of care reviewed.) 2: supine LTR 2x10 3: supine R SKTC 3x30 seconds 4: supine DKTC 3x30 seconds 5: supine transverse abdominal exercise via shoulder extension 2 second holds 2x10 6: supine crunches in very small range 2x10 Skilled Intervention: Patient was educated in proper exercise technique and purpose for exercises. Skilled judgment was used in selection of appropriate interventions. Correct performance of therapeutic exercises was facilitated with verbal and visual cuing. Manual Therapy: Manual Traction: After therex, manual lumbar belt traction with pt supine and LEs elevated on leg rest and force to pt tolerance x10 minutes. Skilled Intervention: Manual skills to improve joint mobility, ROM, and decrease pain. Utilized anatomy knowledge of the therapist, and assessment of patient's response to intervention. Billing Therapeutic Exercise Treatment Minutes: 36 Manual TherapyTreatment Minutes: 10 Skilled Treatment Time Minutes (timed and untimed codes): 46 Total Session Time (minutes): 46 Session Start Time : 1357 Session Stop Time : 1443 Martha Maher PTA Herman Kaur PT documented in this encounterOhiohealth [facility]01-06-2025 NoteHNO ID: [id number] Author: HERMAN KAUR PT Service: ? Author Type: Physical Therapist Type: Progress Notes Filed: 02/18/2024 15:51 Note Text: Episode Visit Count: 2 Therapist That Will Accept/Oversee The Plan Of Care: Herman Kaur PT Start of Care Date: 02/14/24 Onset Date: 12/15/23 Plan of Care Certification Date: 02/14/24 Next Certification Due Date: 03/27/24 Patient Identified by Name and Date of : Yes REHABILITATION AND SPORTS THERAPY PHYSICAL THERAPY TREATMENT NOTE ASSESSMENT: Jayden Craig tolerated the session with fatigue, decreased symptoms, and expected muscle soreness. He demonstrated improvements in pain and exercise tolerance after correction to HEP. The patient will continue to benefit from ongoing skilled physical therapy to progress toward set goals. Classification Pain Mechanism Classification: Neuropathic Low Back Pain Classification: Symptom Modulation PLAN FOR NEXT VISIT: Review, correct and progress HEP to tolerance. Continue with postural stretching and strengthening with flexion directional preference. Consider the use of manual lumbar belt traction prn. SUBJECTIVE: Pt reports partial compliance with HEP 2x day. He reports that his current pain is very slight. He reports that he misunderstood the original HEP instructions and was completing SKTC and DKTC 10 reps each set. Overall he reports that he is better with pain decreased slightly since starting PT last week. 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 Pain: Pain Pain Level: (2-3/10) Pain Location: Low Back/Lumbar Spine - Right, Buttocks - Right, Hip - Right, Thigh - Right Description: (very slight) Frequency: Intermittent, Standing, Walking Post Treatment Pain Post Treatment Pain Level: Better Post Treatment Pain Location: Low Back/Lumbar Spine - Right, Buttocks - Right, Hip - Right, Thigh - Right Post Treatment Symptoms: After therex today, pt denied any change. After traction today, he reported feeling better with back pain decreased. he was leaving, he reported a noticeable decrease in pain and that he could stand more upright. OBJECTIVE MEASURES WITH LEVEL OF FUNCTION: Gait Gait Observation: forward flexed trunk posture with forward head which is long standing TREATMENT: Therapeutic Exercise: 1: [employer] StepOne seat #13 x6 minutes (Pt provided an update on his condition, HEP corrected and plan of care reviewed.) 2: supine LTR 2x10 3: supine R SKTC 3x30 seconds 4: supine DKTC 3x30 seconds 5: *supine transverse abdominal exercise via shoulder extension 2 second holds 2x10 6: *supine crunches in very small range 2x10 7: HEP was reviewed, corrected and continuation encouraged to tolerance. Skilled Intervention: Patient was educated in proper exercise technique and purpose for exercises. Reviewed and educated patient on additions/changes for home exercise program as above (*). Skilled judgment was used in selection of appropriate interventions. Provided written instruction for home exercise program to facilitate proper performance and compliance. Correct performance of therapeutic exercises was facilitated with verbal, visual, and tactile cuing. Patient education as noted. Manual Therapy: Manual Traction: After therex, manual lumbar belt traction with pt supine and LEs elevated on leg rest and force to pt tolerance x10 minutes. Skilled Intervention: Manual skills to improve joint mobility, ROM, and decrease pain. Utilized anatomy knowledge of the therapist, and assessment of patient's response to intervention. Billing Therapeutic Exercise Treatment Minutes: 37 Manual TherapyTreatment Minutes: 10 Skilled Treatment Time Minutes (timed and untimed codes): 47 Total Session Time (minutes): 47 Session Start Time : 1500 Session Stop Time : 1547 Herman Kaur [facility]01-06-2025 History of Present illness Narrative* Herman Kaur PT - 02/18/2024 3:50 PM EST Episode Visit Count: 2 Therapist That Will Accept/Oversee The Plan Of Care: Herman Kaur PT Start of Care Date: 02/14/24 Onset Date: 12/15/23 Plan of Care Certification Date: 02/14/24 Next Certification Due Date: 03/27/24 Patient Identified by Name and Date of : Yes REHABILITATION AND SPORTS THERAPY PHYSICAL THERAPY TREATMENT NOTE ASSESSMENT: Jayden Craig tolerated the session with fatigue, decreased symptoms, and expected muscle soreness. He demonstrated improvements in pain and exercise tolerance after correction to HEP. The patient will continue to benefit from ongoing skilled physical therapy to progress toward set goals. Classification Pain Mechanism Classification: Neuropathic Low Back Pain Classification: Symptom Modulation PLAN FOR NEXT VISIT: Review, correct and progress HEP to tolerance. Continue with postural stretching and strengthening with flexion directional preference. Consider the use of manual lumbar belt traction prn. SUBJECTIVE: Pt reports partial compliance with HEP 2x day. He reports that his current pain is very slight. He reports that he misunderstood the original HEP instructions and was completing SKTC and DKTC 10 reps each set. Overall he reports that he is better with pain decreased slightly since starting PT last week. 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 Pain: Pain Pain Level: (2-3/10) Pain Location: Low Back/Lumbar Spine - Right, Buttocks - Right, Hip - Right, Thigh - Right Description: (very slight) Frequency: Intermittent, Standing, Walking Post Treatment Pain Post Treatment Pain Level: Better Post Treatment Pain Location: Low Back/Lumbar Spine - Right, Buttocks - Right, Hip - Right, Thigh -Right Post Treatment Symptoms: After therex today, pt denied any change. After traction today, he reported feeling better with back pain decreased. he was leaving, he reported a noticeable decrease in pain and that he could stand more upright. OBJECTIVE MEASURES WITH LEVEL OF FUNCTION: Gait Gait Observation: forward flexed trunk posture with forward head which is long standing TREATMENT: Therapeutic Exercise: 1: [employer] StepOne seat #13 x6 minutes (Pt provided an update on his condition, HEP corrected and plan of care reviewed.) 2: supine LTR 2x10 3: supine R SKTC 3x30 seconds 4: supine DKTC 3x30 seconds 5: *supine transverse abdominal exercise via shoulder extension 2 second holds 2x10 6: *supine crunches in very small range 2x10 7: HEP was reviewed, corrected and continuation encouraged to tolerance. Skilled Intervention: Patient was educated in proper exercise technique and purpose for exercises. Reviewed and educated patient on additions/changes for home exercise program as above (*). Skilled judgment was used in selection of appropriate interventions. Provided written instruction for home exercise program to facilitate proper performance and compliance. Correct performance of therapeutic exercises was facilitated with verbal, visual, and tactile cuing. Patient education as noted. Manual Therapy: Manual Traction: After therex, manual lumbar belt traction with pt supine and LEs elevated on leg rest and force to pt tolerance x10 minutes. Skilled Intervention: Manual skills to improve joint mobility, ROM, and decrease pain. Utilized anatomy knowledge of the therapist, and assessment of patient's response to intervention. Billing Therapeutic Exercise Treatment Minutes: 37 Manual TherapyTreatment Minutes: 10 Skilled Treatment Time Minutes (timed and untimed codes): 47 Total Session Time (minutes): 47 Session Start Time : 1500 Session Stop Time : 1547 Herman Kaur PT * Herman Kaur PT - 02/18/2024 3:44 PM EST Program_ID:[id number] Access Code: [email or web address] URL: [email or web address] Date: 02-18-2024 Prepared By: Herman Kaur Program Notes Exercises - Supine Lower Trunk Rotation - 3 x daily - 7 x weekly - 2 sets - 10 reps - Hooklying Single Knee to Chest Stretch - 3 x daily - 7 x weekly - sets - 3 reps - Supine Double Knee to Chest Modified - 3 x daily - 7 x weekly - sets - 3 reps - Supine Transversus Abdominis Bracing - Hands on Ground - 3 x daily - 7 x weekly - 2 sets - 10 reps - Curl Up with Arms Crossed - 3 x daily - 7 x weekly - 2 sets - 10 reps documented in this encounterOhiohealth [facility]01-02-2025 NoteHNO ID: [id number] Author: HERMAN KAUR PT Service: ? 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 The patient presents with impairments in ADL's, gait, independence in exercise, overall function, posture, range of motion, strength, and symptom management. PROMIS? (Patient-Reported Outcomes Measurement Information System) scores were reviewed and identified as a rehabilitation concern. Prognosis for therapy is Good due to: current objective clinical presentation, acuteness of condition, positive past response to therapy, within-session changes, good support system/ coping skills. The patient will benefit from skilled therapy services to meet the goals established for this plan of care as noted below. Classification Pain Mechanism Classification: Neuropathic Low Back Pain Classification: Symptom Modulation Goals for Episode of Care: established 02/14/24 Patient reported outcome of physical function will increase T-score by a minimum 5 points. Independent in home exercises. Patient will decrease pain to 0/10 with functional activities to allow patient to improve standing tolerance for ADLs. Restore pain-free lumbar ROM to prior functional level to allow for improved tolerance with regional liaison. Stand / Walk without limitation, without pain/symptoms for return to prior functional level. Patient will be able to tolerate functional activities for regional liaison without increased symptoms. Patient will increase strength of core/postural muscles to WFL to allow for improved standing tolerance. Patient Goals: decrease pain and move around normally without pain. Time Frame for Goals and Treatment : 03/27/24 Planned Interventions, Frequency, and Duration: Current Frequency: 2x/week Duration: 6 weeks Total Number of Visits Planned: 12 (Initial scheduling will be for 1x week and therefore 12 visits may not be necessary.) Planned Treatment Interventions: Therapeutic exercise (44061), Neuromuscular re-education (48404), Manual therapy (60616), Therapeutic activities (85857), Self-alf management (13645), Patient/Family/Caregiver Education, Gait Training (04395), Body Mechanics Training PLAN FOR NEXT VISIT: Review, correct and progress HEP to tolerance. Continue with postural stretching and strengthening with flexion directional preference. Consider the use of manual lumbar belt traction prn. Patient demonstrates good understanding of plan of care and treatment. The above goals and plan of care were discussed and agreed upon by patient/family. SUBJECTIVE: Pt reports intermittent pain in R low back and down lateral aspect of R LE to knee. He reports that standing and walking aggravate his symptoms in low back and R LE. He reports that all of this stems from early December when he fell off of his tractor and landed on his back and R side. He reports significant bruising in his R low back. He reports chronic low back pain that fluctuates but the R LE symptoms began after the fall off of the tractor. He reports that his severely flexed posture with standing and walking has been present for many years and did not worsen after the fall. Patient Goals: decrease pain and move around normally without pain. 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 Relevant History Employment: Retired Home Environment Patient Lives With: Spouse Intake Information: Prescription present Previous Treatment: None Falls Interview: Fall with injury in the last year Red Flags Vertebral Fracture Clinical Reasoning: No identified risk factors Abdominal Aortic Aneurysm Clinical Reasoning: No identified risk factors. Cancer Clinical Reasoning: No identified risk factors. Infection Clinical Reasoning: No identified risk factors. Cauda Equina Syndrome Clinical Reasoning: No identified risk factors. Red Flags - Cervical Cancer Clinical Reasoning: No identified risk factors. Infection Clinical Reasoning: No identified risk factors. Spine History Symptoms Location at Onset: Back, Buttock, Thigh Symptoms Since Onset: Improving (but still easily aggravated by standing and walking) Pain is Worse Always: Standing, W (more content not included)...[facility]01-02-2025 History of Present illness Narrative* Herman Kaur PT - 02/14/2024 4:53 PM EST Images from the original note were not included. Episode Visit Count: 1 Therapist That Will Accept/Oversee The Plan Of Care: Herman Kaur PT Start of Care Date: 02/14/24 Onset Date: 12/15/23 Plan of Care Certification Date: 02/14/24 Next Certification Due Date: 03/27/24 Patient Identified by Name and Date of : Yes [facility]ERAPY PHYSICAL THERAPY EVALUATION PLAN OF CARE: Assessment: Jayden Craig presents with chief complaint of R low back pain with radicular symptomsinto R buttock, hip and thigh that interferes with standing, walking (regional liaison). The patient presents with impairments in ADL's, gait, independence in exercise, overall function, posture, range of motion, strength, and symptom management. PROMIS (Patient-Reported Outcomes Measurement Information System) scores were reviewed and identified as a rehabilitation concern. Prognosis for therapyis Good due to: current objective clinical presentation, acuteness of condition, positive past response to therapy, within- session changes, good support system/ coping skills. The patient will benefit from skilled therapy services to meet the goals established for this plan of care as noted below. Classification Pain Mechanism Classification: Neuropathic Low Back Pain Classification: Symptom Modulation Goals for Episode of Care: established 02/14/24 Patient reported outcome of physical function will increase T-score by a minimum 5 points. Independent in home exercises. Patient will decrease pain to 0/10 with functional activities to allow patient to improve standing tolerance for ADLs. Restore pain-free lumbar ROM to prior functional level to allow for improved tolerance with regional liaison. Stand / Walk without limitation, without pain/symptoms for return to prior functional level. Patient will be able to tolerate functional activities for regional liaison without increased symptoms. Patient will increase strength of core/postural muscles to WFL to allow for improved standing tolerance. Patient Goals: decrease pain and move around normally without pain. Time Frame for Goals and Treatment : 03/27/24 Planned Interventions, Frequency, and Duration: Current Frequency: 2x/week Duration: 6 weeks Total Number of Visits Planned: 12 (Initial scheduling will be for 1x week and therefore 12 visits may not be necessary.) Planned Treatment Interventions: Therapeutic exercise (86760), Neuromuscular re- education (45294), Manual therapy (08650), Therapeutic activities (92368), Self- alf management (60643), Patient/Family/Caregiver Education, Gait Training (04914), Body Mechanics Training PLAN FOR NEXT VISIT: Review, correct and progress HEP to tolerance. Continue with postural stretching and strengthening with flexion directional preference. Consider the use of manual lumbar belt traction prn. Patient demonstrates good understanding of plan of care and treatment. The above goals and plan of care were discussed and agreed upon by patient/family. SUBJECTIVE: Pt reports intermittent pain in R low back and down lateral aspect of R LE to knee. He reports thatstanding and walking aggravate his symptoms in low back and R LE. He reports that all of this stemsfrom early December when he fell off of his tractor and landed on his back and R side. He reports significant bruising in his R low back. He reports chronic low back pain that fluctuates but the R LE symptoms began after the fall off of the tractor. He reports that his severely flexed posture with standing and walking has been present for many years and did not worsen after the fall. Patient Goals: decrease pain and move around normally without pain. 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 Relevant History Employment: Retired Home Environment Patient Lives With: Spouse Intake Information: Prescription present Previous Treatment: None Falls Interview: Fall with injury in the last year Red Flags Vertebral Fracture Clinical Reasoning: No identified risk factors Abdominal Aortic Aneurysm Clinical Reasoning: No identified risk factors. Cancer Clinical Reasoning: No identified risk factors. Infection Clinical Reasoning: No identified risk factors. Cauda Equina Syndrome Clinical Reasoning: No identified risk factors. Red Flags - Cervical Cancer Clinical Reasoning: No identified risk factors. Infection Clinical Reasoning: No identified risk factors. Spine History Symptoms Location at Onset: Back, Buttock, Thigh Symptoms Since Onset: Improving (but still easily aggravated by standing and walking) Pain is Worse Always: Standing, Walking Pain is Better Always: Sitting Previous Episodes: Yes Previous Spine Episodes: chronic low back pain that responded well to PT Sleeping Position: Side lying right, Side lying left, Supine Sleep Affected by Pain: Not affected by pain Pain: Pain Pain Level: 8 (3/10 with sitting and resting, 8/10 at worst) Pain Location: Low Back/Lumbar Spine - Right, Buttocks - Right, Hip - Right, Thigh - Right Description: Aching Frequency: Intermittent, Standing, Walking Post Treatment Pain Post Treatment Pain Level: Better Post Treatment Pain Location: Low Back/Lumbar Spine - Right, Buttocks - Right, Hip - Right, Thigh -Right Post Treatment Symptoms: After session, pt stated, I'm a little better. I must have loosened it up PROMIS Scales 02/14/2024 01/13/2024 01/10/2022 Higher is Better Phys Func - Score 38 (moderate dysfunction) 38 (moderate dysfunction) 38 (moderate dysfunction) Phys Func - Percentile 12 12 12 Self-Eff Symptom - Score 38 (Low) 38 (Low) 44 (Average) Self-Eff Symptom - Percentile 12 12 27 T-scores: mean of general population = 50. 5 points is clinically meaningfully difference Percentiles provide an indication of how the patient's score ranks in relation to the general population. Higher percentile rankings indicate better function/quality of life. 50th percentile is the average of the general population and indicates half of respondents had a worse score. OBJECTIVE MEASURES WITH LEVEL OF FUNCTION: Posture / Alignment Posture: Forward head, Increased thoracic kyphosis, Rounded shoulders (severely flexed trunk in standing) Spine Observations R Lumbar Spine Palpation Tenderness: No tenderness noted Sensation - Lumbar Sensation: Grossly Intact Lumbar Spine AROM Lumbar Flexion: Normal Lumbar Extension: Major limitation, Increased pain Lumbar R Side-Bend: Normal Lumbar L Side-Bend: Normal Lumbar R Rotation: Moderate limitation, Increased pain Lumbar L Rotation: Moderate limitation, Increased pain LE Strength Trunk Strength: Pt's reported chronicity of low back pain, reported functional difficulties and severe postural deviations indicate that he will benefit from increased core and postural strength. Special Tests - Hip and Spine Hip and Spine Special Tests: SLR Test SLR Test: Right Positive, Left Positive (B LE symptoms increased with ankle DF and hip adduction) Gait Gait Observation: forward flexed trunk posture with forward head which is long standing Vitals BP: 117/73 Pulse: 84 Education: Education Learning Preferences: Demonstration, Explanation, Performance, Printed Materials Barriers: None Learning/educational needs: Home exercise program, Plan of Care, Posture, Body Mechanics Education Provided: Yes, see treatment interventions for education provided Education Provided To: Patient Education Mode/Type: Demonstration, Explanation/Discussion, Literature/Printed Materials, Performance Response to Education/Teach Back: States/Identifies, Return Demonstration, Requires Review/Additional Education TREATMENT: PT Treatment Interventions: Therapeutic Exercise, Self-Assisted Management Evaluation Therapeutic Exercise: 1: Pt was educated on the proper intensity with all therex and that he should back off or stop if pain increases. He was also advised to do HEP in bed and not on the floor. 2: *supine LTR 2x10 3: *supine R SKTC 3x30 seconds 4: *supine DKTC 3x30 seconds Skilled Intervention: Patient was educated in proper exercise technique and purpose for exercises. Reviewed and educated patient on additions/changes for home exercise program as above (*). Skilled judgment was used in selection of appropriate interventions. Provided written instruction for home exercise program to facilitate proper performance and compliance. Correct performance of therapeutic exercises was facilitated with verbal, visual, and tactile cuing. Patient education as noted. Self-Assisted Management: 1: Pt was educated extensively on the anatomy of his lumbar spine, likely etiology of symptoms and rationale for proposed plan. A model of the spine was used to clarify all education. He was educatedon his flexion directional preference and the functional implications of this. His questions about i ndependent exercise were answered and recommendations were made regarding symptom management at home. Skilled Intervention: Skilled judgment in the selection of proper modification for activity of daily living/home management based on clinical presentation, deficits, and needs. Reviewed patient specific diagnosis in relation to activities of daily living/home management. Billing * Evaluation Low Complexity: 1 Unit Therapeutic Exercise Treatment Minutes: 15 Self-Care/Home Management Treatment Minutes: 10 Skilled Treatment Time Minutes (timed and untimed codes): 45 Total Session Time (minutes): 45 Session Start Time : 1500 Session Stop Time : 1545 Herman Kaur PT * Herman Kaur PT - 02/14/2024 3:38 PM EST Program_ID:[id number] Access Code: [email or web address] URL: [email or web address] Date: 02-14-2024 Prepared By: Herman Kaur Program Notes Exercises - Supine Lower Trunk Rotation - 3 x daily - 7 x weekly - 2 sets - 10 reps - Hooklying Single Knee to Chest Stretch - 3 x daily - 7 x weekly - sets - 3 reps - Supine Double Knee to Chest Modified - 3 x daily - 7 x weekly - sets - 3 reps [facility] Tele[facility] encounter Note * Telephone Encounter - Lilliam George RN - 02/04/2024 10:05 AM EST [facility] 08/28/23 Patient phones requesting refills as follows: Requested Prescriptions Pending Prescriptions Disp Refills tamsulosin (FLOMAX) 0.4 mg [Pharmacy Med Name: TAMSULOSIN HCL 0.4 MG CAPSULE] 90 capsule 1 Sig: TAKE 1 CAPSULE BY MOUTH EVERYDAY AT BEDTIME Please review and advise. Lilliam George RN [facility]2024 Miscellaneous Notes* Telephone Encounter - Lilliam George RN - 02/04/2024 10:05 AM EST [facility] 08/28/23 Patient phones requesting refills as follows: Requested Prescriptions Pending Prescriptions Disp Refills tamsulosin (FLOMAX) 0.4 mg [Pharmacy Med Name: TAMSULOSIN HCL 0.4 MG CAPSULE] 90 capsule 1 Sig: TAKE 1 CAPSULE BY MOUTH EVERYDAY AT BEDTIME Please review and advise. Lilliam George RN documented in this encounterOhio[facility]12-02-2024 NoteHNO ID: [id number] Author: ?, ?, ? Service: ? Author Type: ? Type: Progress Notes Filed: 01/14/2024 09:29 Note Text: POPULATION HEALTH NAVIGATION OUTREACH Action/I [facility] Support: Called pt to schedule an appt in Pain Management. Spoke w/ pt, Will call back later to schedule appt. Reason for Outreach Care Gap/HCC or Scheduling Wellness Visits Care Gaps due: N/A Patient Contacted: Spoke to patient/parent/or legal guardian Patient identified by name and : Yes Care Gap/HCC/Scheduling Wellness actions taken: [facility] Support: Called pt to schedule an appt in Pain Management. Spoke w/ pt, Will call back later to schedule appt. Navigation Signature: Lexi Zainab Abdoul January 14, 2024 9:28 [facility]12-02-2024 History of Present illness Narrative* Abdoul Lexi Lamb - 01/14/2024 9:28 AM EST POPULATION HEALTH NAVIGATION OUTREACH Action/I [facility] Support: Called pt to schedule an appt in Pain Management. Spoke w/ pt, Will call backlater to schedule appt. Reason for Outreach Care Gap/HCC or Scheduling Wellness Visits Care Gaps due: N/A Patient Contacted: Spoke to patient/parent/or legal guardian Patient identified by name and : Yes Care Gap/HCC/Scheduling Wellness actions taken: [facility] Support: Called pt to schedule an appt in Pain Management. Spoke w/ pt, Will call backlater to schedule appt. Navigation Signature: Lexi Schreiber January 14, 2024 9:28 AM documented in this encounterOhio[facility]12-02-2024 NotePatient Outreach (NETNAV) JAYDEN CRAIG ([id number]) 1940 M NFR Date Time Provider Department 01/14/24 NO PCP NETNAV During your visit today, we recorded the following information about you: Lexi Schreiber 01/14/2024 9:29 AM Signed POPULATION HEALTH NAVIGATION OUTREACH Action/FYI [facility] Support: Called pt to schedule an appt in Pain Management. Spoke w/ pt, Will call back later to schedule appt. Reason for Outreach Care Gap/HCC or Scheduling Wellness Visits Care Gaps due: N/A Patient Contacted: Spoke to patient/parent/or legal guardian Patient identified by name and : Yes Care Gap/HCC/Scheduling Wellness actions taken: [facility] Support: Called pt to schedule an appt in Pain Management. Spoke w/ pt, Will call back later to schedule appt. Navigation Signature: Lexi Schreiber January 14, 2024 9:28 AM Allergies As of Date: 01/14/2024 Noted Allergy Reaction LIPITOR (ATORVASTATIN CALCIUM) 02/01/2006 5 - Intolerance Comments: myalgias OMNICEF (CEFDINIR) 2013 6 - Diarrhea ZITHROMAX (AZITHROMYCIN) 02/23/2005 Date Reviewed: 01/12/2024 Reviewed by: Marely Begum MA - Fully Assessed Prescriptions as of 01/14/2024 - levothyroxine (LEVOXYL) 175 mcg tablet Take 1 tablet by mouth once daily. Take on empty stomach. For thyroid. - tamsulosin (FLOMAX) 0.4 mg Take 1 capsule by mouth daily at bedtime. - fluticasone-salmeterol HFA (ADVAIR) 115-21 mcg/actuation inhaler Inhale 2 Puffs as instructed two times a day. Rinse mouth after use. - metoprolol tartrate, short acting, (LOPRESSOR) 25 mg tablet Take 1 tablet by mouth two times a day. - lisinopril (ZESTRIL) 10 mg tablet take 1 tablet by mouth every day - simvastatin (ZOCOR) 80 mg tablet take 1 tablet by mouth everyday at bedtime - pantoprazole DR (PROTONIX) 40 mg tablet Take 1 tablet by mouth two times a day. Take on empty stomach, 1/2 hr before meal. - fluticasone (FLONASE) 50 mcg/actuation nasal spray Use 2 Sprays in each nostril once daily. Rinse mouth after use. - aspirin, enteric coated (ASPIRIN, ENTERIC COATED) 325 mg EC tablet Take 1 tablet by mouth once daily. - magnesium oxide (MAG-OX) 400 mg (241.3 mg magnesium) tablet Take 1 tablet by mouth once daily. - acetaminophen (TYLENOL) 325 mg tablet Take 2 tablets by mouth every 4 hours as needed. - THERAPEUTIC MULTIVITAMIN TAB Take 1 tablet by mouth once daily. 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 [K22.70] 05/30/2007 Esophagitis, unspecified [K20.90] 08/29/2007 10/20/2010 Asthma [J45.909] 07/16/2014 Escobedo's esophagus determined by biopsy [K22.7*08/05/2015 Chronic left-sided low back pain with left-side*12/09/2015 08/18/2021 Overweight (BMI 25.0-29.9) [E66.3] 05/24/2016 Lumbar foraminal stenosis [M48.061] 09/13/2016 Intervertebral disc disorder with radiculopathy*09/13/2016 DDD (degenerative disc disease), lumbar [M51.36*09/13/2016 Spondylosis of lumbar region without myelopathy*09/13/2016 Atherosclerotic heart disease of [place] coronar* Pre-op testing [Z01.818] 07/23/2018 09/19/2018 Discharge planning issues [Z75.8] 07/23/2018 Difficult airway for intubation [T88.4XXA] 07/24/2018 07/29/2018 Pain, postoperative, acute [G89.18] 07/24/2018 Atelectasis [J98.11] 07/24/2018 07/26/2018 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/2018 Postoperative hypotension [I95.81] 07/24/2018 07/25/2018 Coagulopathy (HCC) [D68.9] 07/24/2018 07/25/2018 Hypovolemia [E86.1] 07/24/2018 07/25/2018 Esophageal stricture [K22.2] 07/24/2018 Transition of care performed with sharing of cl*07/26/2018 09/19/2018 Gastroesophageal reflux disease with esophagiti*07/26/2018 Obesity, Class I, BMI 30-34.9 [E66.811] 07/26/2018 09/19/2018 Acute cholecystitis [K81.0] 12/15/2018 12/24/2018 Paroxysmal atrial fibrillation (HCC) [I48.0] 12/20/2018 Ileus (HCC) [K56.7] 12/20/2018 12/24/2018 Acute blood loss anemia [D62] 12/20/2018 Essential hypertension [I10] 01/15/2019 Chronic anticoagulation [Z79.01] 01/15/2019 Hx of CABG [Z95.1] 01/15/2019 S/P cholecystectomy [Z90.49] 01/15/2019 Rash [R21] 06/05/2019 Cervical radiculopathy [M54.12] 12/08/2021 02/01/2022 Left arm pain [M79.602] 12/08/2021 02/01/2022 Other disorders of arteries, arterioles and cap*06/09/2022 07/12/2023 COPD, 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 Pt here today for a follow up. Pt has been being treated with Prednisone for ongoing back pain. Pt originally slipped and fell off his tractor on 12/05/23. Pt has been having right sided lower back pain, right hip pain with radiation down his right leg and right sided abdominal pain. Pt has been updating office with continued pain/issues and was advised he needs to schedule a f/u visit to be re-evaluated. At this time pt states his pain is not in his abdomen. Pt has been treated with 4 courses of Prednisone due to his ongoing pain. Pt reports right hip pain continues with right sided sciatic down to his knee on the lateral side. He reports when takes the Prednisone this resolves. Once completing Prednisone, about 1-2 days afterhis pain starts again. Sciatic pain is aggravated by activity. Pain described as numb and tingling.Pain currently a 7/10 as it's aggravated by driving in here. Pain is not always there. Wondering ifhe needs cortisone shots. Mother had sciatic issues as well. No previous history of sciatica Past medical history, appointments, medications, allergies reviewed. 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 CAD (coronary artery disease) Constipation Essential hypertension Fatigue, unspecified type H/O ventral hernia repair 04/03/2023 Hiatal hernia 1990 History of coronary artery bypass graft 07/24/2018 VASQUES in situ mammary end to side mid LAD, Vein graft ascending aorta end to side RCA, Vein graft ascending aorta end to side obtuse marginal 1 Hyperlipidemia Peptic ulcer, unspecified site, unspecified as acute or chronic, without mention of hemorrhage, perforation, or obstruction 2004 Unspecified hypothyroidism 1989 Previous Surgical History PAST SURGICAL HISTORY Procedure Laterality Date ANES HRNA RPR UPR ABD LMBR&VENTRAL HERNIA&DEHISC 04/03/[address] Regina Oswald APPENDECTOMY COLONOSCOPY FLX DX W/COLLJ SPEC WHEN PFRMD 06/28/2004 Colonoscopy COLONOSCOPY FLX DX W/COLLJ SPEC WHEN PFRMD 08/06/2015 Colonoscopy CORONARY ARTERY BYPASS GRAFT HX 07/24/2018 VASQUES in situ mammary end to side mid LAD, Vein graft ascending aorta end to side RCA, Vein graft ascending aorta end to side obtuse marginal 1. EGD N/A 06/29/2020 Dr. Keating EGD 05/31/2021 EGD TRANSORAL BIOPSY SINGLE/MULTIPLE 08/30/2009 EGD TRANSORAL BIOPSY SINGLE/MULTIPLE 08/23/2011 repeat in 2 years ESOPHAGOGASTRODUODENOSCOPY TRANSORAL DIAGNOSTIC 10/06/1998 EGD ESOPHAGOGASTRODUODENOSCOPY TRANSORAL DIAGNOSTIC 01/29/2000 EGD ESOPHAGOGASTRODUODENOSCOPY TRANSORAL DIAGNOSTIC 08/04/2003 EGD ESOPHAGOGASTRODUODENOSCOPY TRANSORAL DIAGNOSTIC 08/29/2007 EGD ESOPHAGOGASTRODUODENOSCOPY TRANSORAL DIAGNOSTIC 08/28/2013 EGD ESOPHAGOGASTRODUODENOSCOPY TRANSORAL DIAGNOSTIC 10/08/2017 EGD HEART SURGERY HX HIATAL HERNIA REPAIR HX 08/24/2022 Laparoscopic paraesophageal hernia repair with gastropexy, Primary repair of ventral hernia, EGD LAPAROSCOPIC CHOLECYSTECTOMY 12/15/2018 PAST SURGICAL HISTORY OF N/A 04/25/2017 Back surgery done at [facility], [address] [place] [address] and cleaned up arthritis REPAIR UMBILICAL HERNIA 08/24/2022 Family History FAMILY HISTORY Problem Relation Age of Onset Emphysema Father Emphysema Mother other (no cardiac hx per pt) Other Patient Allergies ALLERGIES Allergen Reactions Lipitor [Atorvastat* Intolerance myalgias Omnicef [Cefdinir] Diarrhea Zithromax [Azithrom* Current Medications Current Outpatient Medications on File Prior to Visit Medication Sig levothyroxine (LEVOXYL) 175 mcg tablet Take 1 tablet by mouth once daily. Take on empty stomach. For thyroid. tamsulosin (FLOMAX) 0.4 mg Take 1 capsule by mouth daily at bedtime. fluticasone-salmeterol HFA (ADVAIR) 115-21 mcg/actuation inhaler Inhale 2 Puffs as instructed two times a day. Rinse mouth after use. metoprolol tartrate, short acting, (LOPRESSOR) 25 mg tablet Take 1 tablet by mouth two times a day. lisinopril (ZESTRIL) 10 mg tablet take 1 tablet by mouth every day simvastatin (ZOCOR) 80 mg tablet take 1 tablet by mouth everyday at bedtime pantoprazole DR (PROTONIX) 40 mg tablet Take 1 tablet by mouth two times a day. Take on empty stomach, 1/2 hr before meal. fluticasone (FLONASE) 50 mcg/actuation nasal spray Use 2 Sprays in each nostril once daily. Rinse mouth after use. aspirin, enteric coated (ASPIRIN, ENTERIC COATED) 325 mg EC tablet Take 1 tablet by mouth once daily. magnesium oxide (MAG-OX) 400 mg (241.3 mg magnesium) tablet Take 1 tablet by mouth once daily. acetaminophen (TYLENOL) 325 mg tablet Take 2 tablets by mouth every 4 hours as needed. THERAPEUTIC MULTIVITAMIN TAB Take 1 tablet by mouth once daily. No current facility-administered medications on file prior to visit. Social History Social History Tobacco Use Smoking status: Former Current packs/day: 0.00 Average packs/day: 0.5 packs/day for 27.0 years (13.5 ttl pk-yrs) Types: Cigarettes Start date: 1954 Quit date: 1981 Years since quittin.9 Smokeless tobacco: Never Vaping Use Vaping status: Never Used Substance Use Topics Alcohol use: Not Currently Drug use: Never EXAM: BP 114/78 (BP Site: Left Arm, BP Position: Sitting, BP Cuff Size: Regular Adult) Pulse 78 Resp 18 Wt 81.9 kg (180 lb 8.9 oz) BMI 26.66 kg/m General Appearance: Well appearing, alert, in no acute distress, well-hydrated, well nourished.. Back:Indicates tenderness right upper buttock area, no archie with hip movement Health Maintenance List DTaP,Tdap,Td Vaccine(3 - Td or Tdap) due on 05/29/2017 Colorectal Cancer Screening due on 12/27/2017 Advance Directive Discussion due on 02/12/2023 RSV Vaccine(1 - 1-dose 75+ series) due on 02/13/2024 Shingrix Vaccine(1 of 2) due on 02/13/2024 Depression Screening due on 07/11/2024 Anxiety Screening due on 07/11/2024 LDL Cholesterol due on 11/13/2024 Diabetes Screening due on 11/12/2026 Spirometry Completed Influenza Vaccine Completed Covid-19 Vaccine Completed Pneumococcal Vaccine: 65+ Completed Data reviewed Epic ASSESSMENT/PLAN: 1. Sciatica, right side - ICD9: 724.3, ICD10: M54.31 Mechanical low back pain - Prefer not to use further prednisone; may use OTC pain meds prn - Refer to Pain for consideration for injections - PT consult - CONSULT TO PHYSICAL THERAPY - CONSULT TO PAIN MGT Follow up prn Medical Decision Making: Problems: Low: Acute, uncomplicated illness or injury Risk: Moderate: Drug management Medical Decision Making Level: 3 - Low Eloisa Espinal MD documented in this encounterOhio[facility] NoteHNO ID: [id number] Author: ELOISA ESPINAL MD Service: ? Author Type: Physician Type: Progress Notes Filed: 01/12/2024 11:58 Note Text: Chief Complaint Patient presents with: Follow Up: Back pain HPI Jayden Craig is a 83 year old male who presents here today for low back pain. Pt here today for a follow up. Pt has been being treated with Prednisone for ongoing back pain. Pt originally slipped and fell off his tractor on 12/05/23. Pt has been having right sided lower back pain, right hip pain with radiation down his right leg and right sided abdominal pain. Pt has been updating office with continued pain/issues and was advised he needs to schedule a f/u visit to be re-evaluated. At this time pt states his pain is not in his abdomen. Pt has been treated with 4 courses of Prednisone due to his ongoing pain. Pt reports right hip pain continues with right sided sciatic down to his knee on the lateral side. He reports when takes the Prednisone this resolves. Once completing Prednisone, about 1-2 days after his pain starts again. Sciatic pain is aggravated by activity. Pain described as numb and tingling. Pain currently a 7/10 as it's aggravated by driving in here. Pain is not always there. Wondering if he needs cortisone shots. Mother had sciatic issues as well. No previous history of sciatica Past medical history, appointments, medications, allergies reviewed. 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 Regina Oswald APPENDECTOMY COLONOSCOPY FLX DX W/COLLJ SPEC WHEN PFRMD 06/28/2004 Colonoscopy COLONOSCOPY FLX DX W/COLLJ SPEC WHEN PFRMD 08/06/2015 Colonoscopy CORONARY ARTERY BYPASS GRAFT HX 07/24/2018 VASQUES in situ mammary end to side mid LAD, Vein graft ascending aorta end to side RCA, Vein graft ascending aorta end to side obtuse marginal 1. EGD N/A 06/29/2020 Dr. Keating EGD 05/31/2021 EGD TRANSORAL BIOPSY SINGLE/MULTIPLE 08/30/2009 EGD TRANSORAL BIOPSY SINGLE/MULTIPLE 08/23/2011 repeat in 2 years ESOPHAGOGASTRODUODENOSCOPY TRANSORAL DIAGNOSTIC 10/06/1998 EGD ESOPHAGOGASTRODUODENOSCOPY TRANSORAL DIAGNOSTIC 01/29/2000 EGD ESOPHAGOGASTRODUODENOSCOPY TRANSORAL DIAGNOSTIC 08/04/2003 EGD ESOPHAGOGASTRODUODENOSCOPY TRANSORAL DIAGNOSTIC 08/29/2007 EGD ESOPHAGOGASTRODUODENOSCOPY TRANSORAL DIAGNOSTIC 08/28/2013 EGD ESOPHAGOGASTRODUODENOSCOPY TRANSORAL DIAGNOSTIC 10/08/2017 EGD HEART SURGERY HX HIATAL HERNIA REPAIR HX 08/24/2022 Laparoscopic paraesophageal hernia repair with gastropexy, Primary repair of ventral hernia, EGD LAPAROSCOPIC CHOLECYSTECTOMY 12/15/2018 PAST SURGICAL HISTORY OF N/A 04/25/2017 Back surgery done at [facility], [address] [place] [address] and cleaned up arthritis REPAIR UMBILICAL HERNIA 08/24/2022 Family History FAMILY HISTORY Problem Relation Age of Onset Emphysema Father Emphysema Mother other (no cardiac hx per pt) Other Patient Allergies ALLERGIES Allergen Reactions Lipitor [Atorvastat* Intolerance myalgias Omnicef [Cefdinir] Diarrhea Zithromax [Azithrom* Current Medications Current Outpatient Medications on File Prior to Visit Medication Sig levothyroxine (LEVOXYL) 175 mcg tablet Take 1 tablet by mouth once daily. Take on empty stomach. For thyroid. tamsulosin (FLOMAX) 0.4 mg Take 1 capsule by mouth daily at bedtime. fluticasone-salmeterol HFA (ADVAIR) 115-21 mcg/actuation inhaler Inhale 2 Puffs as instructed two times a day. Rinse mouth after use. metoprolol tartrate, short acting, (LOPRESSOR) 25 mg tablet Take 1 tablet by mouth two times a day. lisinopril (ZESTRIL) 10 mg tablet take 1 tablet by mouth every day simvastatin (ZOCOR) 80 mg tablet take 1 tablet by mouth everyday at bedtime pantoprazole DR (PROTONIX) 40 mg tablet Take 1 tablet by mouth two times a day. Take on empty stomach, 1/2 hr before meal. fluticasone (FLONASE) 50 mcg/actuation nasal spray Use 2 Sprays in each nostril once daily. Rinse mouth after use. aspirin, enteric coated (ASPIRIN, ENTERIC COATED) 325 mg EC tablet Take 1 tablet by mouth once daily. magnesium oxide (MAG-OX) 400 mg (241.3 mg mag (more content not included)... [facility]11-29-2024 Telephone encounter Note* Telephone Encounter - Jamaica Pagan LPN - 01/11/2024 1:43 PM EST Phone call to patient, scheduled. [facility]11-29-[facility] Miscellaneous Notes* Telephone Encounter - Jamaica Pagan LPN - 01/11/2024 1:43 PM EST Phone call to patient, scheduled. * Telephone Encounter - Marely Begum MA - 01/11/2024 9:50 AM EST Pt notified via mychart of response below from PCP. Offered to assist in setting up appt. Wait pt response. Marely Begum MA * Telephone Encounter - Eloisa Espinal MD - 01/11/2024 9:14 AM EST I would suggest office visit to re-evaluate his pain and discuss next steps Eloisa Espinal MD documented in this encounterOhio[facility]11-29-2024 Telephone encounter Note * Telephone Encounter - Marely Begum MA - 01/11/2024 9:50 AM EST Pt notified via mychart of response below from PCP. Offered to assist in setting up appt. Wait pt response. Marely Begum MA [facility]11-29-[facility]24 Telephone encounter Note* Telephone Encounter - Eloisa Espinal MD - 01/11/2024 9:14 AM EST I would suggest office visit to re-evaluate his pain and discuss next steps Eloisa Espinal MD [facility]11-07-2024 Telephone encounter Note* Telephone Encounter - Elza Wall MA - 12/20/2023 11:04 AM EST See mychart message. Elza Wall MA [facility]11-07-2024 Miscellaneous Notes* Telephone Encounter - Elza Wall MA - 12/20/2023 11:04 AM EST See mychart message. Elza Wall MA documented in this encounterOhio[facility]10-25-2024 Telephone encounter Note * Telephone Encounter - Marely Begum MA - 12/07/2023 4:34 PM EDT See pt message, agreeable to doing Prednisone. Uses [facility]. Marely Begum MA [facility]10-25-2024 Miscellaneous Notes* Telephone Encounter - Marely Begum MA - 12/07/2023 4:34 PM EDT See pt message, agreeable to doing Prednisone. Uses [facility]. Marely Begum MA * Telephone Encounter - Varun Guzman LPN - 12/05/2023 4:49 PM EDT See pt message. He also wanted to mention: Rosales Espinal, As I have been moving around the house I have noticed pain in my right hip joint and it moves some down my leg. Add it to the list. Rodolfo documented in this encounterOhio[facility]10-23-2024 Telephone encounter Note * Telephone Encounter - Varun Guzman LPN - 12/05/2023 4:49 PM EDT See pt message. He also wanted to mention: Rosales Espinal, As I have been moving around the house I have noticed pain in my right hip joint and it moves some down my leg. Add it to the list. Rodolfo [facility]10-15-[facility] History of Present illness Narrative* Mike Lee APRN.[employer]SF[employer]ATOR CHIEF - 11/27/2023 1:20 PM EDT Chief Complaint Patient presents with: ER F/U HPI Jayden Craig is a 82 year old male who presents here today for ER Follow Up. HOSPITAL/ER FOLLOW UP: Reason for visit: Right lower abdominal pain Which facility: [facility] Date of visit: November 25, 2023 Diagnosis: Abdominal pain Testing done: CT abdomen pelvis, blood work Treatment given: None Current symptoms: At this time, the patient states that he has continued right- sided abdominal pain. It is intermittent. It was worse this morning but is slowly resolved. Worse with deep breathing, twisting of the trunk. Patient states that prior to his emergency room visit he actually fell off of a tractor. Landed on his butt. There is a large bruise on his coccyx. Pain radiates from abdomen wall to the right side of his lower back. Has been using a heating pad with some success. Also using Tylenol. Denies any hematuria, bloody stools. No fevers or chills. Past medical history, appointments, medications, allergies reviewed. EXAM: BP 132/76 Pulse 83 Resp 18 Wt 82.1 kg (181 lb) SpO2 98% BMI 26.73 kg/m General Appearance: Well appearing, alert, in no acute distress, well-hydrated, well nourished.. Skin: large ecchymosis of coccyx, red and purple in color.. Lungs: Lungs clear to auscultation. No wheezing, rhonchi, rales.. Heart: RRR without murmur, gallop, or rubs. No ectopy. Abdomen: Right side of the abdomen has no ecchymosis. There is moderate tenderness on the abdominalrectus sheaths. ASSESSMENT/PLAN: 1. Abdominal muscle strain, sequela - ICD9: 905.7, ICD10: S39.011S (primary diagnosis) -Can continue to use heating pack as needed. Advised not to sleep on the heating pack. Trial prednisone burst for inflammation. Encourage patient to rest. Deferred muscle relaxant with secondary drowsiness, risk of falls. Follow-up if not improving. - PREDNISONE 20 MG TABLET 2. Fall, sequela - ICD9: 909.4, E929.3, ICD10: W19.XXXS - see #1 Mike Lee APRN.CNP This note was partly generated using [employer] voice recognition dictation and may contain some misspelled or inaccurate words missed on review. documented in this encounterOhiohealth [facility]10-14-2024 Telephone encounter Note * Telephone Encounter - Jamaica Pagan LPN - 11/26/2023 11:27 AM EDT Patient scheduled. [facility]-14-[facility] Miscellaneous Notes* Telephone Encounter - Jamaica Pagan LPN - 11/26/2023 11:27 AM EDT Patient scheduled. * Telephone Encounter - Mike Lee APRN.CNP - 11/26/2023 11:01 AM EDT Agree, patient did go to the emergency room. Reviewed records it appears that he needs an MRI of the right kidney and also follow-up for pulmonary nodules with additional CT scan in the future. We should get him in for an emergency room visit follow-up Mike Lee APRN.CNP * Telephone Encounter - Jamaica Pagan LPN - 11/26/2023 9:39 AM EDT Looks like patient went to ER. documented in this encounterOhiohealth [facility]10-14-2024 Telephone encounter Note * Telephone Encounter - Mike Lee APRN.CNP - 11/26/2023 11:01 AM EDT Agree, patient did go to the emergency room. Reviewed records it appears that he needs an MRI of the right kidney and also follow-up for pulmonary nodules with additional CT scan in the future. We should get him in for an emergency room visit follow-up Mike Lee APRN.[place] [facility]10-14-2024 Telephone encounter Note* Telephone Encounter - Jamaica Pagan LPN - 11/26/2023 9:39 AM EDT Looks like patient went to ER. [facility] History of Present illness Narrative* Eloisa Espinal MD - 11/15/2023 11:20 AM EDT Chief Complaint Patient presents with: F/U 3 Month Immunizations: Flu vaccination HPI Jayden Craig is a 82 year old male who presents here today for a 3 month follow up. Pt here today for his routine follow up. Future labs ordered. Was seen in [facility] ED on 10/25/23 for abdominal swelling. Ongoing issue with abdominal swelling and issues related to s/p hernia surgeries and s/p gastroplexy. Has been seen several times with concerns related to this. Follows with a Surgeon. Follows with Urologist Dr. Hoang Wright. Denies any pain with urination. He states he has bowel issues has to take stool softeners every night and will typically have a BM next morning. He denies any nausea or vomiti ng. Lower abdominal pain x 3 months constant, cramping, dull ache, rated pain 3/10. He states that the pain does not worsen after eating but it will feel better for a short time after he urinates or has a BM. He has not done anything to tx sx. Yesterday the pain was worse and he had 4 hard BM but today pain is less and he had a normal BM. States that this pain is nothing new. He has some ballooning to his stomach. Escobedo's: Stable with use of Protonix 40 mg 1 tab po bid. Anemia: Chronic, monitored through routine labs. Hx of GI bleed. HTN/Afib: Does check BP occasionally at home. Denies any chest pain, dizziness or unusual sob. No further syncopal episodes since last seen. Pt currently taking Lisinopril 10 mg once daily and Lopressor 25 mg 1 tab po bid. Lipids:Tries to watch his diet. Exercises as able due to hx of asthma. On current regimen of Zocor 80 mg once daily. Tolerating well. Asthma: On current regimen of Advair 115-21 mcg 2 puffs once daily. Unsure if inhaler works for him. Has been on Symbicort in the past. Thyroid: Taking Levothyroxine 200 mcg once daily. Hx of low sodium and phosphorus. Past medical history, appointments, medications, allergies reviewed. 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 CAD (coronary artery disease) Constipation Essential hypertension Fatigue, unspecified type H/O ventral hernia repair 04/03/2023 Hiatal hernia 1989 History of coronary artery bypass graft 07/24/2018 VASQUES in situ mammary end to side mid LAD, Vein graft ascending aorta end to side RCA, Vein graft ascending aorta end to side obtuse marginal 1 Hyperlipidemia Peptic ulcer, unspecified site, unspecified as acute or chronic, without mention of hemorrhage, perforation, or obstruction 2004 Unspecified hypothyroidism 1989 Previous Surgical History PAST SURGICAL HISTORY Procedure Laterality Date ANES HRNA RPR UPR ABD LMBR&VENTRAL HERNIA&DEHISC 04/03/[address] Regina Oswald APPENDECTOMY COLONOSCOPY FLX DX W/COLLJ SPEC WHEN PFRMD 06/28/2004 Colonoscopy COLONOSCOPY FLX DX W/COLLJ SPEC WHEN PFRMD 08/06/2015 Colonoscopy CORONARY ARTERY BYPASS GRAFT HX 07/24/2018 VASQUES in situ mammary end to side mid LAD, Vein graft ascending aorta end to side RCA, Vein graft ascending aorta end to side obtuse marginal 1. EGD N/A 06/29/2020 Dr. Keating EGD 05/31/2021 EGD TRANSORAL BIOPSY SINGLE/MULTIPLE 08/30/2009 EGD TRANSORAL BIOPSY SINGLE/MULTIPLE 08/23/2011 repeat in 2 years ESOPHAGOGASTRODUODENOSCOPY TRANSORAL DIAGNOSTIC 10/06/1998 EGD ESOPHAGOGASTRODUODENOSCOPY TRANSORAL DIAGNOSTIC 01/29/2000 EGD ESOPHAGOGASTRODUODENOSCOPY TRANSORAL DIAGNOSTIC 08/04/2003 EGD ESOPHAGOGASTRODUODENOSCOPY TRANSORAL DIAGNOSTIC 08/29/2007 EGD ESOPHAGOGASTRODUODENOSCOPY TRANSORAL DIAGNOSTIC 08/28/2013 EGD ESOPHAGOGASTRODUODENOSCOPY TRANSORAL DIAGNOSTIC 10/08/2017 EGD HEART SURGERY HX HIATAL HERNIA REPAIR HX 08/24/2022 Laparoscopic paraesophageal hernia repair with gastropexy, Primary repair of ventral hernia, EGD LAPAROSCOPIC CHOLECYSTECTOMY 12/15/2018 PAST SURGICAL HISTORY OF N/A 04/25/2017 Back surgery done at [facility], [address] [place] [address] and cleaned up arthritis REPAIR UMBILICAL HERNIA 08/24/2022 Family History FAMILY HISTORY Problem Relation Age of Onset Emphysema Father Emphysema Mother other (no cardiac hx per pt) Other Patient Allergies ALLERGIES Allergen Reactions Lipitor [Atorvastat* Intolerance myalgias Omnicef [Cefdinir] Diarrhea Zithromax [Azithrom* Current Medications Current Outpatient Medications on File Prior to Visit Medication Sig tamsulosin (FLOMAX) 0.4 mg Take 1 capsule by mouth daily at bedtime. fluticasone-salmeterol HFA (ADVAIR) 115-21 mcg/actuation inhaler Inhale 2 Puffs as instructed two times a day. Rinse mouth after use. metoprolol tartrate, short acting, (LOPRESSOR) 25 mg tablet Take 1 tablet by mouth two times a day. lisinopril (ZESTRIL) 10 mg tablet take 1 tablet by mouth every day simvastatin (ZOCOR) 80 mg tablet take 1 tablet by mouth everyday at bedtime levothyroxine (LEVOXYL) 175 mcg tablet Take 1 tablet by mouth once daily. Take on empty stomach. For thyroid. pantoprazole DR (PROTONIX) 40 mg tablet Take 1 tablet by mouth two times a day. Take on empty stomach, 1/2 hr before meal. fluticasone (FLONASE) 50 mcg/actuation nasal spray Use 2 Sprays in each nostril once daily. Rinse mouth after use. aspirin, enteric coated (ASPIRIN, ENTERIC COATED) 325 mg EC tablet Take 1 tablet by mouth once daily. magnesium oxide (MAG-OX) 400 mg (241.3 mg magnesium) tablet Take 1 tablet by mouth once daily. acetaminophen (TYLENOL) 325 mg tablet Take 2 tablets by mouth every 4 hours as needed. THERAPEUTIC MULTIVITAMIN TAB Take 1 tablet by mouth once daily. No current facility-administered medications on file prior to visit. Social History Social History Tobacco Use Smoking status: Former Current packs/day: 0.00 Average packs/day: 0.5 packs/day for 27.0 years (13.5 ttl pk-yrs) Types: Cigarettes Start date: 1954 Quit date: 1981 Years since quittin.7 Smokeless tobacco: Never Vaping Use Vaping status: Never Used Substance Use Topics Alcohol use: Not Currently Drug use: Never EXAM: BP 124/70 Pulse 64 Resp 18 Wt 80.7 kg (177 lb 14.6 oz) BMI 26.27 kg/m General Appearance: Well appearing, alert, in no acute distress, well-hydrated, well nourished. andOverweight. Lungs: Lungs clear to auscultation. No wheezing, rhonchi, rales.. Heart: RRR without murmur, gallop, or rubs. No ectopy. Abdomen: moderate rectus diastasis. Health Maintenance List DTaP,Tdap,Td Vaccine(3 - Td or Tdap) due on 05/29/2017 Colorectal Cancer Screening due on 12/27/2017 Advance Directive Discussion due on 02/12/2023 Influenza Vaccine(1) due on 10/14/2023 Covid-19 Vaccine( season) due on 10/14/2023 RSV Vaccine(1 - 1-dose 75+ series) due on 02/13/2024 Shingrix Vaccine(1 of 2) due on 02/13/2024 Depression Screening due on 07/11/2024 Anxiety Screening due on 07/11/2024 Annual PCP Team Chronic Disease Visit due on 08/12/2024 BP Controlled (<130/80) due on 08/27/2024 LDL Cholesterol due on 11/13/2024 Diabetes Screening due on 11/12/2026 Spirometry Completed Pneumococcal Vaccine: 65+ Completed Data reviewed Appointment on 11/14/2023 Component Date Value Cholesterol, Total 11/14/2023 149 Triglyceride 11/14/2023 61 HDL Cholesterol 11/14/2023 77 Non HDL Cholesterol 11/14/2023 72 Fasting Time 11/14/2023 12 VLDL Cholesterol 11/14/2023 12 TC:HDL Ratio 11/14/2023 1.94 LDL Cholesterol 11/14/2023 60 LDL:HDL Ratio 11/14/2023 0.78 Appointment on 11/13/2023 Component Date Value WBC 11/13/2023 5.71 RBC 11/13/2023 3.82 (L) Hemoglobin 11/13/2023 10.7 (L) Hematocrit 11/13/2023 32.2 (L) MCV 11/13/2023 84.3 MCH 11/13/2023 28.0 MCHC 11/13/2023 33.2 RDW-CV 11/13/2023 15.2 (H) Platelet Count 11/13/2023 115 (L) MPV 11/13/2023 10.8 Neutrophils % 11/13/2023 67.5 Abs Neut 11/13/2023 3.86 Lymphocytes % 11/13/2023 10.7 Abs Lymph 11/13/2023 0.61 (L) Monocytes % 11/13/2023 20.0 Abs Story 11/13/2023 1.14 (H) Eosinophils % 11/13/2023 0.7 Abs Eosin 11/13/2023 0.04 Basophils % 11/13/2023 0.4 Abs Baso 11/13/2023 <0.03 Immature Granulocytes % 11/13/2023 0.7 Abs Immature Gran 11/13/2023 0.04 NRBC 11/13/2023 0.0 Absolute nRBC 11/13/2023 <0.01 Diff Type 11/13/2023 Auto Protein, Total 11/13/2023 6.7 Albumin 11/13/2023 4.3 Calcium, Total 11/13/2023 9.1 Bilirubin, Total 11/13/2023 0.4 Alkaline Phosphatase 11/13/2023 78 AST 11/13/2023 27 ALT 11/13/2023 17 Glucose 11/13/2023 120 (H) BUN 11/13/2023 13 Creatinine 11/13/2023 0.83 Sodium 11/13/2023 125 (L) Potassium 11/13/2023 4.7 Chloride 11/13/2023 94 (L) CO2 11/13/2023 21 (L) Anion Gap 11/13/2023 10 Estimated Glomerular Heri* 11/13/2023 88 Phosphorus 11/13/2023 3.8 TSH 11/13/2023 2.190 Hospital Outpatient Visit on 10/02/2023 Component Date Value Radiology Result 10/02/2023 ACTIONABLE (Actionable) ASSESSMENT/PLAN: 1. Acquired hypothyroidism - ICD9: 244.9, ICD10: E03.9 (primary diagnosis) - Instructed patient on importance of taking on an empty stomach either first thing in the morning or at bedtime. Continue current medications. 2. Need for influenza vaccination - ICD9: V04.81, ICD10: Z23 Flu shot given in office 3. Need for vaccination - ICD9: V05.9, ICD10: Z23 - INFLUENZA VACCINE, PRSV FREE, AGE 65+ YR, HIGH DOSE, TRIVALENT (FLUZONE HIGH-DOSE) - [employer] COVID-19 VACCINE AGE 12+ YR (COMIRNATY) 4. Mixed hyperlipidemia - ICD9: 272.2, ICD10: E78.2 - Controlled - Continue current medications - Counseled on healthy diet and regular exercise - Discussed need for and benefit of weight loss. BMI 26.27 kg/(m^2) 5. 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 Continue with Gastro 6. Mild intermittent asthma without complication - ICD9: 493.90, ICD10: J45.20 - Mild intermittent asthma stable - Continue current medications - Avoidance of triggers recommended 7. 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 8. Gastroesophageal reflux disease with esophagitis, unspecified whether hemorrhage - ICD9: 530.11,ICD10: K21.00 - stable Continue current medications. Continue with Gastro 9. Essential hypertension - ICD9: 401.9, ICD10: I10 - Controlled - Continue current medications - Recommend home blood pressure monitoring, to bring results to next visit - Encouraged sodium restriction, DASH or Mediterranean diet - Recommend regular aerobic exercise - Discussed need for and benefit of weight loss. BMI 26.27 kg/(m^2) 10. Acute blood loss anemia - ICD9: 285.1, ICD10: D62 Continue current medications. 11. Paroxysmal atrial fibrillation (HCC) - ICD9: 427.31, ICD10: I48.0 Continue current medications. 12. Chronic abdominal pain - ICD9: 789.00, 338.29, ICD10: R10.9, G89.29 Follow up in Gastro Continue with Miralax at bedtime 13. Rectus diastasis Monitor Follow up in 6 months with fasting labs prior. I agree with the Chief Complaint, ROS, and Past Histories independently gathered by the clinical family readiness support assistant and the remaining scribed note accurately describes my personal service to the patient. Medical Decision Making: Problems: Moderate: 2+ stable chronic illnesses Data: Unique test result(s) reviewed: 3+ Unique test(s) ordered: 3+ Risk: Moderate: Drug management Medical Decision Making Level: 4 - Moderate Eloisa Espinal MD The documentation for this note was completed by Elza Wall MA acting as scribe for Eloisa Espinal MD. November 15, 2023 11:07 AM. Elza Wall MA documented in this encounterOhio[facility] Telephone encounter Note * Telephone Encounter - Elza Wall MA - 11/12/2023 8:05 AM EDT Advised he could get both vaccines at upcoming appt. Elza Wall MA [facility]-30-[facility]24 Miscellaneous Notes* Telephone Encounter - Elza Wall MA - 11/12/2023 8:05 AM EDT Advised he could get both vaccines at upcoming appt. Elza Wall MA documented in this encounterOhio[facility]09-26-2024 Telephone encounter Note * Telephone Encounter - Eloisa Espinal MD - 11/08/2023 11:35 AM EDT OK to refill as ordered Eloisa Espinal MD [facility] Miscellaneous Notes* Telephone Encounter - Eloisa Espinal MD - 11/08/2023 11:35 AM EDT OK to refill as ordered Eloisa Espinal MD * Telephone Encounter - Nichole Silva - 11/08/2023 10:30 AM EDT Prescription Refill Information The patient has been identified by name and date of : Yes Caregiver verified no other encounters exist for this prescription request: Yes Caregiver confirmed with patient/requestor that no other refills are due, in the near future, with this provider at this time: Yes The last office visit in the department: 08-13-23 Does the patient have a future office visit with this provider/department: Yes Requested Prescriptions Pending Prescriptions Disp Refills levothyroxine (LEVOXYL) 175 mcg tablet 90 tablet 1 Sig: Take 1 tablet by mouth once daily. Take on empty stomach. For thyroid. Nichole Rice November 08, 2023 10:30 AM documented in this encounterOhio[facility]09-26-2024 Telephone encounter Note * Telephone Encounter - Nichole Silva - 11/08/2023 10:30 AM EDT Prescription Refill Information The patient has been identified by name and date of : Yes Caregiver verified no other encounters exist for this prescription request: Yes Caregiver confirmed with patient/requestor that no other refills are due, in the near future, with this provider at this time: Yes The last office visit in the department: 08-13-23 Does the patient have a future office visit with this provider/department: Yes Requested Prescriptions Pending Prescriptions Disp Refills levothyroxine (LEVOXYL) 175 mcg tablet 90 tablet 1 Sig: Take 1 tablet by mouth once daily. Take on empty stomach. For thyroid. Nichole Eneida Rice November 08, 2023 10:30 AM [facility]09-12-[facility] Telephone encounter Note* Telephone Encounter - Vanessa Pitts RN - 10/25/2023 10:06 AM EDT Patient calls back and triaged for abdominal pain, swelling, constipation. Patient all over the place with symptoms and difficult to triage. After reviewing symptoms and history recommended ER. Patient agreeable and will go to [facility] ER now. Care advice reviewed. Patient verbalizes understanding. Reason for Disposition Black or tarry bowel movements (Exception: Chronic-unchanged black-woo BMs AND is taking iron pills or Pepto-Bismol.) Answer Assessment - Initial Assessment Questions 1. SYMPTOM: Patient calls to report that he has some swelling on the right side of his abdomen above and below the umbilicus. Mild pain 3/10 more of a discomfort. Reports an out pouching above his belly button. Reports concern for constipation but had normal bowel movement yesterday and soft/loose bowel movement today different and dark in color. Using Senna S two tablets at bedtime. 2. ONSET: Reports sometime but not certain how long 3. SEVERITY: - MILD SWELLING: Feels gassy or bloated. Abdomen looks mildly distended or swollen. 4. ABDOMEN PAIN: - MILD (1-3): Doesn't interfere with normal activities, abdomen soft and not tender to touch. 5. RELIEVING AND AGGRAVATING FACTORS: Patient reports it is just there nothing really makes it worse or better 6. GI HISTORY: Patient had stomach surgery almost 2 years ago and hospital visits since. 7. CAUSE: Patient not certain. 8. OTHER SYMPTOMS: No belching, blood in stool, breathing difficulty, constipation, diarrhea, fever, passing gas, vomiting, weight loss, white of eyes have turned yellow Protocols used: Abdomen Bloating and [id number]-XS [facility]09-12-[facility] Miscellaneous Notes* Telephone Encounter - Vanessa Pitts RN - 10/25/2023 10:06 AM EDT Patient calls back and triaged for abdominal pain, swelling, constipation. Patient all over the place with symptoms and difficult to triage. After reviewing symptoms and history recommended ER. Patient agreeable and will go to [facility] ER now. Care advice reviewed. Patient verbalizes understanding. Reason for Disposition Black or tarry bowel movements (Exception: Chronic-unchanged black-woo BMs AND is taking iron pills or Pepto-Bismol.) Answer Assessment - Initial Assessment Questions 1. SYMPTOM: Patient calls to report that he has some swelling on the right side of his abdomen above and below the umbilicus. Mild pain 3/10 more of a discomfort. Reports an out pouching above his belly button. Reports concern for constipation but had normal bowel movement yesterday and soft/loose bowel movement today different and dark in color. Using Senna S two tablets at bedtime. 2. ONSET: Reports sometime but not certain how long 3. SEVERITY: - MILD SWELLING: Feels gassy or bloated. Abdomen looks mildly distended or swollen. 4. ABDOMEN PAIN: - MILD (1-3): Doesn't interfere with normal activities, abdomen soft and not tender to touch. 5. RELIEVING AND AGGRAVATING FACTORS: Patient reports it is just there nothing really makes it worse or better 6. GI HISTORY: Patient had stomach surgery almost 2 years ago and hospital visits since. 7. CAUSE: Patient not certain. 8. OTHER SYMPTOMS: No belching, blood in stool, breathing difficulty, constipation, diarrhea, fever, passing gas, vomiting, weight loss, white of eyes have turned yellow Protocols used: Abdomen Bloating and [id number] * Telephone Encounter - Mari Desouza RN - 10/25/2023 8:44 AM EDT Attempted to contact patient for further triage of stated symptoms of abdominal swelling and constipation. No answer. Mess age left for patient call back and ask for a triage nurse. Mari Desouza RN documented in this encounterOhiohealth [facility]09-12-2024 Telephone encounter Note * Telephone Encounter - Mari Desouza RN - 10/25/2023 8:44 AM EDT Attempted to contact patient for further triage of stated symptoms of abdominal swelling and constipation. No answer. Mess age left for patient call back and ask for a triage nurse. Mari Desouza RN [facility] Telephone encounter Note* Telephone Encounter - Marely Begum MA - 10/25/2023 8:34 AM EDT Placed on Triage appt schedule to triage pt. PCP is not in and pt f/u with General Surgery and hx of abdominal surgery. Marely Begum MA [facility]09-12-[facility]24 Miscellaneous Notes* Telephone Encounter - Marely Begum MA - 10/25/2023 8:34 AM EDT Placed on Triage appt schedule to triage pt. PCP is not in and pt f/u with General Surgery and hx of abdominal surgery. Marely Begum MA documented in this encounterOhiohealth [facility]08-29-2024 History of Present illness Narrative* Hoang Wright MD - 10/11/2023 11:16 AM EDT HISTORY OF PRESENT ILLNESS: Jayden Craig is a 82 year old male who complains of indeterminate renal lesion 10/02/2023: ALISHA: 3 cm right lower pole renal lesion is slightly smaller than on the prior study but remains indeterminate. @KORI@ PSA (ng/mL) Date Value 04/27/2023 2.30 06/16/2013 1.10 PSA Screening (ng/mL) Date Value 07/09/2014 1.92 06/24/2012 1.26 GLUCOSE UA (POCT) Negative 08/28/2023 BILIRUBIN UA (POCT) Negative 08/28/2023 KETONE UA (POCT) Negative 08/28/2023 SPECIFIC GRAVITY UA (POCT) 1.025 08/28/2023 HEMOGLOBIN/BLOOD UA (POCT) Trace-intact 08/28/2023 PH UA (POCT) 6.0 08/28/2023 PROTEIN UA (POCT) Trace 08/28/2023 UROBILINOGEN UA (POCT) 0.2 08/28/2023 NITRITE UA (POCT) Negative 08/28/2023 LEUKOCYTES UA (POCT) Negative 08/28/2023 COLOR UA (POCT) Yellow 08/28/2023 CLARITY UA (POCT) Clear 08/28/2023 ALLERGIES: ALLERGIES Allergen Reactions Lipitor [Atorvastat* Intolerance myalgias Omnicef [Cefdinir] Diarrhea Zithromax [Azithrom* MEDICATIONS: tamsulosin (FLOMAX) 0.4 mg Take 1 capsule by mouth daily at bedtime. metoprolol tartrate, short acting, (LOPRESSOR) 25 mg tablet Take 1 tablet by mouth two times a day. lisinopril (ZESTRIL) 10 mg tablet take 1 tablet by mouth every day simvastatin (ZOCOR) 80 mg tablet take 1 tablet by mouth everyday at bedtime levothyroxine (LEVOXYL) 175 mcg tablet Take 1 tablet by mouth once daily. Take on empty stomach. For thyroid. pantoprazole DR (PROTONIX) 40 mg tablet Take 1 tablet by mouth two times a day. Take on empty stomach, 1/2 hr before meal. fluticasone (FLONASE) 50 mcg/actuation nasal spray Use 2 Sprays in each nostril once daily. Rinse mouth after use. aspirin, enteric coated (ASPIRIN, ENTERIC COATED) 325 mg EC tablet Take 1 tablet by mouth once daily. magnesium oxide (MAG-OX) 400 mg (241.3 mg magnesium) tablet Take 1 tablet by mouth once daily. acetaminophen (TYLENOL) 325 mg tablet Take 2 tablets by mouth every 4 hours as needed. THERAPEUTIC MULTIVITAMIN TAB Take 1 tablet by mouth once daily. fluticasone-salmeterol HFA (ADVAIR) 115-21 mcg/actuation inhaler Inhale 2 Puffs as instructed two times a day. Rinse mouth after use. 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 No date: BPH associated with nocturia No date: CAD (coronary artery disease) No date: Constipation No date: Essential hypertension No date: Fatigue, unspecified type 04/03/2023: H/O ventral hernia repair 1989: Hiatal hernia 07/24/2018: History of coronary artery bypass graft Comment: VASQUES in situ mammary end to side mid LAD, Vein graft ascending aorta end to side RCA, Vein graft ascending aorta end to side obtuse marginal 1 No date: Hyperlipidemia 2004: Peptic ulcer, unspecified site, unspecified as acute or chronic, without mention of hemorrhage, perforation, or obstruction 1989: Unspecified hypothyroidism has a past surgical history that includes esophagogastroduodenoscopy transoral diagnostic (10/06/1998); esophagogastroduodenoscopy transoral diagnostic (01/29/2000); esophagogastroduodenoscopy transoral diagnostic (08/04/2003); colonoscopy flx dx w/collj spec when pfrmd (06/28/2004); esophagogastrod uodenoscopy transoral diagnostic (08/29/2007); egd transoral biopsy single/multiple (08/30/2009); egd transoral biopsy single/multiple (08/23/2011); esophagogastroduodenoscopy transoral diagnostic (08/28/2013); colonoscopy flx dx w/collj spec when pfrmd (08/06/2015); past surgical history of (N/A, 0 04/25/2017); esophagogastroduodenoscopy transoral diagnostic (10/08/2017); appendectomy; laparoscopic cholecystectomy (12/15/2018); coronary artery bypass graft hx (07/24/2018); egd (N/A, 06/29/2020);heart surgery hx; egd (05/31/2021); hiatal hernia repair hx (08/24/2022); repair umbilical hernia (08/24/2022); and anes hrna rpr upr abd lmbr&ventral hernia&dehisc (04/03/2023). FAMILY HISTORY Problem Relation Age of Onset Emphysema Father Emphysema Mother other (no cardiac hx per pt) Other Social History Tobacco Use Smoking status: Former Current packs/day: 0.00 Average packs/day: 0.5 packs/day for 27.0 years (13.5 ttl pk-yrs) Types: Cigarettes Start date: 1954 Quit date: 1981 Years since quittin.6 Smokeless tobacco: Never Vaping Use Vaping status: Never Used Substance Use Topics Alcohol use: Not Currently Drug use: Never REVIEW OF SYSTEMS: Const: Well appearing, in no acute distress, well-hydrated, well-nourished, alert, awake, oriented to time, place and person. : See HPI The remainder of the ROS was reviewed and is negative. PHYSICAL EXAMINATION: Ht 175.3 cm (5' 9) Wt 80.3 kg (177 lb) BMI 26.14 kg/m Const: Well appearing, in no acute distress, well-hydrated, well-nourished, alert, awake, oriented to time, place and person. I personally reviewed the patient's radiology images and dictation and I agree with the radiologist's opinion. I personally reviewed the patient's laboratory studies. IMPRESSION: Stable right indeterminate lesion PLAN: Follow-up in 1 year with repeat renal ultrasound Written and verbal health teaching given to patient, patient verbalizes understanding and agrees with treatment plan. Patient will call if worsening symptoms, no improvement, or any other concerns. Plan discussed. Hoang Wright MD Electronically Signed: Hoang Wright MD October 11, 2023 11:20 AM This note was partially created using voice recognition software and is inherently subject to errors including those of syntax and sound-alike substitutions which may escape proofreading. In such instances, original meaning may be extrapolated by contextual derivation. Visit complexity inherent to evaluation and management associated with medical care services that serve as the continuing focal point for all needed health care services and/or with medical care services that are part of ongoing care related to a patient s single, serious condition or a complex condition. documented in this encounterOhiohealth [facility]08-26-2024 Telephone encounter Note * Telephone Encounter - Katarina Martin - 10/08/2023 3:56 PM EDT Patient already has an appointment on 10/11/23 10:45 AM [place]. [facility]08-26-[facility] Miscellaneous Notes* Telephone Encounter - Katarina Martin - 10/08/2023 3:56 PM EDT Patient already has an appointment on 10/11/23 10:45 AM [place]. * Telephone Encounter - Katarina Martin - 10/08/2023 9:49 AM EDT Images from the original note were not included. Hoang Wright MD [facility] Surgery Scheduling Pool Let's get him in soon Previous Messages ----- Message ----- From: Anya Broderick Sent: 10/05/2023 8:11 PM EDT To: Hoang Wright MD; Marjorie Jay MD Subject: ACTIONABLE IMAGING RESULT Exam: US KIDNEY/BLADDER Date: Oct 02 2023 1:26PM This report on your patient contains a potential actionable imaging result which may need additional follow-up as recommended below. IMPRESSION: 3 cm right lower pole renal lesion is slightly smaller than on the prior study but remains indeterminate. Further characterization with dedicated renal imaging without and with contrast is advised. Resolution of previously shown retroperitoneal hematoma. ACTIONABLE RESULT: FOLLOW-UP Acuity: Actionable Findings: Kidneys/Ureters/Bladder Routing Code: GU_1 Recommendation: MRI KIDNEY WO/W IVCON Time Frame: 3-6 months PLEASE REVIEW THE FULL REPORT FOR ADDITIONAL FINDINGS. If this patient is no longer or was never in your care, please reply to the Imaging Support Services pool so that we can redirect to the appropriate caregiver. documented in this encounterOhiohealth [facility]08-26-2024 Telephone encounter Note * Telephone Encounter - Katarina Martin - 10/08/2023 9:49 AM EDT Images from the original note were not included. Hoang Wright MD [facility] Surgery Scheduling Pool Let's get him in soon Previous Messages ----- Message ----- From: Anya Broderick Sent: 10/05/2023 8:11 PM EDT To: Hoang Wright MD; Marjorie Jay MD Subject: ACTIONABLE IMAGING RESULT Exam: US KIDNEY/BLADDER Date: Oct 02 2023 1:26PM This report on your patient contains a potential actionable imaging result which may need additional follow-up as recommended below. IMPRESSION: 3 cm right lower pole renal lesion is slightly smaller than on the prior study but remains indeterminate. Further characterization with dedicated renal imaging without and with contrast is advised. Resolution of previously shown retroperitoneal hematoma. ACTIONABLE RESULT: FOLLOW-UP Acuity: Actionable Findings: Kidneys/Ureters/Bladder Routing Code: GU_1 Recommendation: MRI KIDNEY WO/W IVCON Time Frame: 3-6 months PLEASE REVIEW THE FULL REPORT FOR ADDITIONAL FINDINGS. If this patient is no longer or was never in your care, please reply to the Imaging Support Services pool so that we can redirect to the appropriate caregiver. [facility] History of Present illness Narrative* Juan King PA-C - 08/28/2023 2:04 PM EDT Patient was following up for a 3 month visit after being started on Flomax. He was verbally yellingat the nurses station per nurse account that he has waited too long and he was leaving He had a PVR today of 0 ml I had already given 5 refills for his Flomax through 10/2023 PVR was 0 ml today previous 78 ml STEPHANIE Coyne MT, PA-C * Ginger Lennon LPN - 08/28/2023 12:51 PM EDT Verified name and date of . CC Post Void Residual HPI: Jayden Craig is a 82 year old male. The patient is here now for an appointment with Juan King, KELSYS, MT, PA-COV. Procedure: Explained procedure to patient and verbalizes understanding. Performed a PVR. Patient urinated and instructed to empty bladder as much as possible just prior to having PVR done using bladder ultrasound scanner. Results of scan: 0 mL The patient tolerated the procedure well. Plan: Appointment with Juan. documented in this encounterOhiohealth Van [facility]07-11-2024 Telephone encounter Note * Telephone Encounter - Eloisa Espinal MD - 08/23/2023 4:46 PM EDT OK to refill as ordered Eloisa Espinal MD [facility] Miscellaneous Notes* Telephone Encounter - Eloisa Espinal MD - 08/23/2023 4:46 PM EDT OK to refill as ordered Eloisa Espinal MD * Telephone Encounter - Aixa Aguillon - 08/23/2023 3:44 PM EDT Prescription Refill Information The patient has been identified by name and date of : Yes Caregiver verified no other encounters exist for this prescription request: Yes Caregiver confirmed with patient/requestor that no other refills are due, in the near future, with this provider at this time: Yes The last office visit in the department: 08/13/2023 Does the patient have a future office visit with this provider/department: Yes Requested Prescriptions Pending Prescriptions Disp Refills fluticasone-salmeterol HFA (ADVAIR) 115-21 mcg/actuation inhaler 12 Each 5 Sig: Inhale 2 Puffs as instructed two times a day. Rinse mouth after use. Aixa Aguillon August 23, 2023 3:45 PM documented in this encounterCleveland [id number] Telephone encounter Note * Telephone Encounter - Aixa Aguillon - 08/23/2023 3:44 PM EDT Prescription Refill Information The patient has been identified by name and date of : Yes Caregiver verified no other encounters exist for this prescription request: Yes Caregiver confirmed with patient/requestor that no other refills are due, in the near future, with this provider at this time: Yes The last office visit in the department: 08/13/2023 Does the patient have a future office visit with this provider/department: Yes Requested Prescriptions Pending Prescriptions Disp Refills fluticasone-salmeterol HFA (ADVAIR) 115-21 mcg/actuation inhaler 12 Each 5 Sig: Inhale 2 Puffs as instructed two times a day. Rinse mouth after use. Aixa Aguillon August 23, 2023 3:45 PM [facility] History of Present illness Narrative* Eloisa Espinal MD - 08/13/2023 12:00 PM EDT Chief Complaint Patient presents with: F/U 1 month HPI Jayden Craig is a 82 year old male who presents here today for 1 month follow up. Pt here today for a 1 month follow up. Had 6 mo f/u at previous visit last month. Going to go fishing some where up around [place], [place] or [place]. Going with his Son and great grandkids (by marriage). Asking about sepsis dx from hospital follow up. Feels this is what caused him to pass out. Completed abx he was on. Anemia: Monitored with labs. Hx of GI bleed. Labs - Looked at his blood test and seen that he's still low in sodium and phosphorus. He has two days left of K-Phos 250 mg 1 tab TID, no longer has any Sodium pills. Reports that due to his sodium being too low, he's added some salt back in his diet. He previously was not using salt in his diet. Wondering if he needs prescribed Sodium tablets again. Lipid: Tries to watch diet and exercise as much as he is able due to his asthma. Taking Zocor 80 mgdaily. Tolerating well. HTN & A-fib: Checking BP at home, but reports not lately. Taking Lisinopril 10 mg daily and Lopressor 25 mg 1 pill BID. No chest pains, dizziness, or unusual SOB. No further syncope issues. Believes this was related to being septic and was being treated with an abx. Pt had US Carotid and Echo done 07/24/23, this was ordered at his previous OV after his hospital admission. Is not following with any cardiologists. At this time states he's feeling good. Asthma: Currently using Advair 115-21 mcg 2 puffs twice daily. Reports he's only using this in the morning. Has previously used Symbicort. Feels inhaler doesn't work as well for him, wondering if he needs something different but doesn't use the inhaler as prescribed. Asking about easily bruising and if there's anything that can help prevent this. Has this all on his left arm. Takes ASA 325 mg once daily. HM - Shingles, RSV vaccine through Pharmacy due to Medicare Insurance. Adv Dir/Living Will scanned in his chart. Covid up to date. Past medical history, appointments, medications, allergies reviewed. 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 CAD (coronary artery disease) Constipation Essential hypertension Fatigue, unspecified type H/O ventral hernia repair 04/03/2023 Hiatal hernia 1989 History of coronary artery bypass graft 07/24/2018 VASQUES in situ mammary end to side mid LAD, Vein graft ascending aorta end to side RCA, Vein graft ascending aorta end to side obtuse marginal 1 Hyperlipidemia Peptic ulcer, unspecified site, unspecified as acute or chronic, without mention of hemorrhage, perforation, or obstruction 2004 Unspecified hypothyroidism 1989 Previous Surgical History PAST SURGICAL HISTORY Procedure Laterality Date ANES HRNA RPR UPR ABD LMBR&VENTRAL HERNIA&DEHISC 04/03/[address] Regina Oswald APPENDECTOMY COLONOSCOPY FLX DX W/COLLJ SPEC WHEN PFRMD 06/28/2004 Colonoscopy COLONOSCOPY FLX DX W/COLLJ SPEC WHEN PFRMD 08/06/2015 Colonoscopy CORONARY ARTERY BYPASS GRAFT HX 07/24/2018 VASQUES in situ mammary end to side mid LAD, Vein graft ascending aorta end to side RCA, Vein graft ascending aorta end to side obtuse marginal 1. EGD N/A 06/29/2020 Dr. Keating EGD 05/31/2021 EGD TRANSORAL BIOPSY SINGLE/MULTIPLE 08/30/2009 EGD TRANSORAL BIOPSY SINGLE/MULTIPLE 08/23/2011 repeat in 2 years ESOPHAGOGASTRODUODENOSCOPY TRANSORAL DIAGNOSTIC 10/06/1998 EGD ESOPHAGOGASTRODUODENOSCOPY TRANSORAL DIAGNOSTIC 01/29/2000 EGD ESOPHAGOGASTRODUODENOSCOPY TRANSORAL DIAGNOSTIC 08/04/2003 EGD ESOPHAGOGASTRODUODENOSCOPY TRANSORAL DIAGNOSTIC 08/29/2007 EGD ESOPHAGOGASTRODUODENOSCOPY TRANSORAL DIAGNOSTIC 08/28/2013 EGD ESOPHAGOGASTRODUODENOSCOPY TRANSORAL DIAGNOSTIC 10/08/2017 EGD HEART SURGERY HX HIATAL HERNIA REPAIR HX 08/24/2022 Laparoscopic paraesophageal hernia repair with gastropexy, Primary repair of ventral hernia, EGD LAPAROSCOPIC CHOLECYSTECTOMY 12/15/2018 PAST SURGICAL HISTORY OF N/A 04/25/2017 Back surgery done at [address] and cleaned up arthritis REPAIR UMBILICAL HERNIA 08/24/2022 Family History FAMILY HISTORY Problem Relation Age of Onset Emphysema Father Emphysema Mother other (no cardiac hx per pt) Other Patient Allergies ALLERGIES Allergen Reactions Lipitor [Atorvastat* Intolerance myalgias Omnicef [Cefdinir] Diarrhea Zithromax [Azithrom* Current Medications Current Outpatient Medications on File Prior to Visit Medication Sig metoprolol tartrate, short acting, (LOPRESSOR) 25 mg tablet Take 1 tablet by mouth two times a day. sodium chloride soluble tablet 1 g Take 1 tablet by mouth once daily. phosphorus (K PHOS NEUTRAL) 250 mg tablet Take 1 tablet by mouth three times a day. lisinopril (ZESTRIL) 10 mg tablet take 1 tablet by mouth every day simvastatin (ZOCOR) 80 mg tablet take 1 tablet by mouth everyday at bedtime levothyroxine (LEVOXYL) 175 mcg tablet Take 1 tablet by mouth once daily. Take on empty stomach. For thyroid. pantoprazole DR (PROTONIX) 40 mg tablet Take 1 tablet by mouth two times a day. Take on empty stomach, 1/2 hr before meal. tamsulosin (FLOMAX) 0.4 mg Take 1 capsule by mouth daily at bedtime. fluticasone (FLONASE) 50 mcg/actuation nasal spray Use 2 Sprays in each nostril once daily. Rinse mouth after use. fluticasone-salmeterol HFA (ADVAIR) 115-21 mcg/actuation inhaler INHALE 2 PUFFS INSTRUCTED TWICEDAILY. RINSE MOUTH AFTER USE. aspirin, enteric coated (ASPIRIN, ENTERIC COATED) 325 mg EC tablet Take 1 tablet by mouth once daily. magnesium oxide (MAG-OX) 400 mg (241.3 mg magnesium) tablet Take 1 tablet by mouth once daily. acetaminophen (TYLENOL) 325 mg tablet Take 2 tablets by mouth every 4 hours as needed. THERAPEUTIC MULTIVITAMIN TAB Take 1 tablet by mouth once daily. Current Facility-Administered Medications on File Prior to Visit Medication perflutren lipid microspheres 1.3 mL in NaCl (PF) 0.9% 10 mL injection (DEFINITY) sodium chloride 0.9 % (flush) 10 mL (BD POSIFLUSH) Social History Social History Tobacco Use Smoking status: Former Packs/day: 0.50 Years: 27.00 Additional pack years: 0.00 Total pack years: 13.50 Types: Cigarettes Quit date: 1981 Years since quittin.5 Smokeless tobacco: Never Vaping Use Vaping Use: Never used Substance Use Topics Alcohol use: Not Currently Drug use: Never EXAM: BP 108/66 (BP Site: Left Arm, BP Position: Sitting, BP Cuff Size: Regular Adult) Pulse 68 Resp 18 Wt 80 kg (176 lb 6.4 oz) BMI 27.63 kg/m General Appearance: Well appearing, alert, in no acute distress, well-hydrated, well nourished.. Skin: Bruising noted on left arm. Neck: Supple, no adenopathy; thyroid symmetric, normal size, no bruits. Lungs: Lungs clear to auscultation. No wheezing, rhonchi, rales.. Heart: RRR without murmur, gallop, or rubs. No ectopy. Health Maintenance List Shingrix Vaccine(1 of 2) Never done RSV Vaccine(1 - 1-dose 60+ series) Never done DTaP,Tdap,Td Vaccine(3 - Td or Tdap) due on 05/29/2017 Colorectal Cancer Screening due on 12/27/2017 Advance Directive Discussion due on 02/12/2023 Covid-19 Vaccine( season) due on 05/10/2023 Influenza Vaccine(1) due on 10/14/2023 LDL Cholesterol due on 07/09/2024 Annual PCP Team Chronic Disease Visit due on 07/11/2024 BP Controlled (<130/80) due on 07/11/2024 Diabetes Screening due on 08/08/2026 Spirometry Completed Behavioral Health Screening Completed Pneumococcal Vaccine: 65+ Completed Data reviewed Appointment on 08/09/2023 Component Date Value WBC 08/09/2023 4.95 RBC 08/09/2023 4.02 (L) Hemoglobin 08/09/2023 11.3 (L) Hematocrit 08/09/2023 35.8 (L) MCV 08/09/2023 89.1 MCH 08/09/2023 28.1 MCHC 08/09/2023 31.6 RDW-CV 08/09/2023 15.8 (H) Platelet Count 08/09/2023 142 (L) MPV 08/09/2023 11.9 Neutrophils % 08/09/2023 51.9 Abs Neut 08/09/2023 2.57 Lymphocytes % 08/09/2023 18.2 Abs Lymph 08/09/2023 0.90 (L) Monocytes % 08/09/2023 25.3 Abs Story 08/09/2023 1.25 (H) Eosinophils % 08/09/2023 3.6 Abs Eosin 08/09/2023 0.18 Basophils % 08/09/2023 0.4 Abs Baso 08/09/2023 <0.03 Immature Granulocytes % 08/09/2023 0.6 Abs Immature Gran 08/09/2023 0.03 NRBC 08/09/2023 0.0 Absolute nRBC 08/09/2023 <0.01 Diff Type 08/09/2023 Auto Protein, Total 08/09/2023 6.7 Albumin 08/09/2023 4.1 Calcium, Total 08/09/2023 9.4 Bilirubin, Total 08/09/2023 0.5 Alkaline Phosphatase 08/09/2023 82 AST 08/09/2023 30 ALT 08/09/2023 18 Glucose 08/09/2023 105 (H) BUN 08/09/2023 12 Creatinine 08/09/2023 0.86 Sodium 08/09/2023 132 (L) Potassium 08/09/2023 4.5 Chloride 08/09/2023 99 CO2 08/09/2023 22 Anion Gap 08/09/2023 11 Estimated Glomerular Heri* 08/09/2023 88 Phosphorus 08/09/2023 3.1 Results Only on 07/24/2023 Component Date Value LV Ejection Fraction 07/24/2023 54 Appointment on 07/10/2023 Component Date Value Protein, Total 07/10/2023 6.4 Albumin 07/10/2023 3.6 (L) Calcium, Total 07/10/2023 8.9 Bilirubin, Total 07/10/2023 0.4 Alkaline Phosphatase 07/10/2023 86 AST 07/10/2023 50 (H) ALT 07/10/2023 96 (H) Glucose 07/10/2023 104 (H) BUN 07/10/2023 9 Creatinine 07/10/2023 0.85 Sodium 07/10/2023 131 (L) Potassium 07/10/2023 4.6 Chloride 07/10/2023 99 CO2 07/10/2023 22 Anion Gap 07/10/2023 10 Estimated Glomerular Heri* 07/10/2023 88 Cholesterol, Total 07/10/2023 138 Triglyceride 07/10/2023 50 HDL Cholesterol 07/10/2023 43 Non HDL Cholesterol 07/10/2023 95 Fasting Time 07/10/2023 10 VLDL Cholesterol 07/10/2023 10 TC:HDL Ratio 07/10/2023 3.21 LDL Cholesterol 07/10/2023 85 LDL:HDL Ratio 07/10/2023 1.98 TSH 07/10/2023 2.100 WBC 07/10/2023 6.87 RBC 07/10/2023 3.38 (L) Hemoglobin 07/10/2023 9.9 (L) Hematocrit 07/10/2023 30.6 (L) MCV 07/10/2023 90.5 MCH 07/10/2023 29.3 MCHC 07/10/2023 32.4 RDW-CV 07/10/2023 15.3 (H) Platelet Count 07/10/2023 376 MPV 07/10/2023 10.6 Neutrophils % 07/10/2023 62.0 Abs Neut 07/10/2023 4.26 Lymphocytes % 07/10/2023 11.9 Abs Lymph 07/10/2023 0.82 (L) Monocytes % 07/10/2023 19.1 Abs Story 07/10/2023 1.31 (H) Eosinophils % 07/10/2023 3.1 Abs Eosin 07/10/2023 0.21 Basophils % 07/10/2023 0.6 Abs Baso 07/10/2023 0.04 Immature Granulocytes % 07/10/2023 3.3 Abs Immature Gran 07/10/2023 0.23 (H) NRBC 07/10/2023 0.0 Absolute nRBC 07/10/2023 <0.01 Diff Type 07/10/2023 Auto No results displayed because visit has over 200 results. ASSESSMENT/PLAN: 1. Syncope, unspecified syncope type - ICD9: 780.2, ICD10: R55 (primary diagnosis) - Stable, no recurrent issues; may have been related to infection - COMPREHENSIVE METABOLIC PANEL 2. Essential hypertension - ICD9: 401.9, ICD10: I10 - Controlled - Continue current medications - Recommend home blood pressure monitoring, to bring results to next visit - Encouraged sodium restriction, DASH or Mediterranean diet - Recommend regular aerobic exercise - COMPREHENSIVE METABOLIC PANEL - LIPID PANEL BASIC 3. Paroxysmal atrial fibrillation (HCC) - ICD9: 427.31, ICD10: I48.0 - Stable - Continue current medication regimen. 4. 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 - LIPID PANEL BASIC 5. Hx of CABG - ICD9: V45.81, ICD10: Z95.1 - Continue current medication regimen. - LIPID PANEL BASIC 6. Mixed hyperlipidemia - ICD9: 272.2, ICD10: E78.2 - Controlled - Continue current medications - Counseled on healthy diet and regular exercise - COMPREHENSIVE METABOLIC PANEL - LIPID PANEL BASIC 7. Low sodium levels - ICD9: 276.1, ICD10: E87.1 - Improving; cont to monitor - Salt foods - Stay off medication - COMPREHENSIVE METABOLIC PANEL 8. Hypophosphataemia - ICD9: 275.3, ICD10: E83.39 - can finish medication then stop - Will recheck in 3 months - PHOSPHORUS INORGANIC 9. Anemia, unspecified type - ICD9: 285.9, ICD10: D64.9 - improving - Cont to monitor - COMPLETE BLOOD COUNT AND DIFFERENTIAL 10. Retroperitoneal hemorrhage - ICD9: 459.0, ICD10: R58 - Stable - COMPLETE BLOOD COUNT AND DIFFERENTIAL 11. Mild intermittent asthma without complication - ICD9: 493.90, ICD10: J45.20 - use Advair twice daily - Continue current medications - Avoidance of triggers recommended 12. COPD, mild (HCC) - ICD9: 496, ICD10: J44.9 - As noted above 13. Acquired hypothyroidism - ICD9: 244.9, ICD10: E03.9 - Instructed patient on importance of taking on an empty stomach either first thing in the morning or at bedtime. - check TSH in 3 months - THYROID STIMULATING HORMONE 14. Bruising - ICD9: 924.9, ICD10: T14.8XXA - Age related - Taking ASA 3 mo f/u with labs I agree with the Chief Complaint, ROS, and Past Histories independently gathered by the clinical family readiness support assistant and the remaining scribed note accurately describes my personal service to the patient. Medical Decision Making: Problems: Moderate: 2+ stable chronic illnesses Data: Unique test result(s) reviewed: 2 Unique test(s) ordered: 2 Risk: Moderate: Drug management Medical Decision Making Level: 4 - Moderate Eloisa Espinal MD The documentation for this note was completed by Marely Begum MA acting as scribe for Eloisa Espinal MD. August 13, 2023 12:22 PM. Marely Begum MA documented in this encounterOhio[facility] History of Present illness Narrative* Tremayne Arnett RN - 08/01/2023 11:58 AM EDT TRANSITION CARE MANAGEMENT (TCM) FOLLOW-UP NOTE Provider Action/FYI Pt feeling well since discharge Denies any concerning symptoms/needs at this time Pt has zoe ultrasound today Pt to call PCP for any new/worsening symptoms. Purler plan for next outreach: No further follow up needed at this time JOSE Education Ordered -: No Tremayne Arnett RN August 01, 2023 11:58 AM documented in this encounterOhiohealth [facility]06-04-2024 History of Present illness Narrative* Tremayne Arnett RN - 07/17/2023 11:13 AM EDT TRANSITION CARE MANAGEMENT (TCM) FOLLOW-UP NOTE Provider Action/FYI Follow up outreach attempt to patient following hospital discharge. No answer, left voice message with call back number [phone] Will attempt another patient outreach next week. Purler plan for next outreach: No further follow up needed at this time JOSE Education Ordered -: No Tremayne Arnett RN July 17, 2023 11:13 AM documented in this encounterOhiohealth [facility]06-03-2024 Telephone encounter Note * Telephone Encounter - Mike Lee APRN.CNP - 07/16/2023 11:59 AM EDT The following approved medication requests have been transmitted electronically. Requested Prescriptions Signed Prescriptions Disp Refills metoprolol tartrate, short acting, (LOPRESSOR) 25 mg tablet 180 tablet 3 Sig: Take 1 tablet by mouth two times a day. Mike Lee APRN.CNP [facility]06-03-[facility] Miscellaneous Notes* Telephone Encounter - Mike Lee APRN.CNP - 07/16/2023 11:59 AM EDT The following approved medication requests have been transmitted electronically. Requested Prescriptions Signed Prescriptions Disp Refills metoprolol tartrate, short acting, (LOPRESSOR) 25 mg tablet 180 tablet 3 Sig: Take 1 tablet by mouth two times a day. Mike Lee APRN.CNP * Telephone Encounter - Minoo Mcguire MA - 07/16/2023 11:56 AM EDT Patient has been identified by name and date of : Yes Patient phones for refill(s): Requested Prescriptions Pending Prescriptions Disp Refills metoprolol tartrate, short acting, (LOPRESSOR) 25 mg tablet 180 tablet 3 Sig: Take 1 tablet by mouth two times a day. Date of last office visit in primary care: 07/12/2023 Date of next office visit in primary care: 08/13/2023 Please advise. Thank you. Minoo Mcguire MA. documented in this encounterOhiohealth [facility]06-03-2024 Telephone encounter Note * Telephone Encounter - Minoo Mcguire MA - 07/16/2023 11:56 AM EDT Patient has been identified by name and date of : Yes Patient phones for refill(s): Requested Prescriptions Pending Prescriptions Disp Refills metoprolol tartrate, short acting, (LOPRESSOR) 25 mg tablet 180 tablet 3 Sig: Take 1 tablet by mouth two times a day. Date of last office visit in primary care: 07/12/2023 Date of next office visit in primary care: 08/13/2023 Please advise. Thank you. Minoo Mcguire MA. [facility]05[facility] History of Present illness Narrative* Eloisa Espinal MD - 07/12/2023 11:00 AM EDT Transitional Care Management TCM Eligibility Documentation Program: Transitional Care Management Status: Enrolled Effective Dates: 07/10/2023 - present Responsible Staff: Tremayne Arnett RN Discharge date: 07/05/2023 (Program start) Date of initial contact: N/A Initial contact Target status: No contact; Completed at least 2 attempts within 2 business days post-discharge Provider Documentation Jayden Craig is a 82 year old male here today for a follow up from recent hospitalization. I havereviewed the patient's hospital course including discharge summary, discharge medications , and follow up needs with the patient and any family members present at today's visit. HPI Hospital follow up. Pt here today for a 7 day TCM and routine 6 month follow up. Pt went to [facility] ER 07/01/23 for abdominal pain and was transferred to [facility] where he was admitted for Retroperitoneal Hemorrhage. Pt notes prior to going to the ED he wasn't feeling well a couple days prior. When he went to bed night 06/30/23 he wasn't feeling well. He got up in the early hours 07/01/23 to go to the bathroom, made it to the bathroom door and doesn't remember what happened due to an episode of syncope. When he came too he took out a few things in the bathroom. He was very dizzy, crawled back to bed and stayed in bed due to not feeling well. He finally went to [facility] ED on 06/30 and they told him they couldn't help him, so he was sent to [facility], where he was admitted until 07/05/23. Pt at this time states he's improving. Denies any dizziness at this time. Feels his breathing is just getting worse, becomes winded more easily. Asking why everything is still low and what is going to be done about it. Was started on Cefdinir 300 mg 1 tab po bid, L Phos Neutral 250 mg 1 tab po TID and Sodium Chloride1 gram once daily. Hospital follow up. 07/01/23 - 07/05/23: HOSPITAL COURSE: REASON FOR HOSPITALIZATION: s/p fall DIAGNOSIS: Syncopal episode at home Abdominal pain Concern for acute right retroperitoneal hematoma Concern for sepsis Right renal mass versus cyst Hyponatremia Acute on chronic anemia Hx CAD s/p CABG Hypothyroidism Hypertension This is an 82-year-old male, with PMH as follows: HTN, HLD, hypothyroidism, CAD s/p CABG. The patient presented to the ER, with a complaint of abdominal pain. It seems that he was walking to the bathroom, on Sunday, and had a fall. Subsequently, he startedto have abdominal pain. He was admitted with concern for sepsis, with unclear etiology as well as concern for right retroperitoneal hematoma. Regarding his retroperitoneal hematoma and a large right renal mass, the patient was evaluated by urology. This was managed conservatively. His H&H remained stable during hospital stay. There was no evidence of active extravasation. Notably, the patient was also found to have hyponatremia, with sodium level that dropped as low as 121 during this admission. Notably, he had no neurological symptoms due to this. He was evaluated by nephrology. At the time of discharge, his sodium level has corrected to 126. Per nephrology, he was given salt tablets. In addition, he will be prescribed salt tablets at the time of discharge. There was also concern for possible sepsis, as the patient did have an episode of fever during hospital stay. Cultures remained negative. while in-house, the patient was placed on IV antibiotics with Zosyn. At the time of discharge, this would be de-escalated to oral cefdinir. In addition, there was a cardiac echocardiogram that was ordered, to workup the patient for this episode of sudden fall that he had at home. However, the patient would prefer to do this on an outpatient basis. Recent cardiac echocardiogram dated August 2022 was reviewed. At this time, I would be comfortable with the patient following with his PCP to obtain cardiac echocardiogram and possibly carotid Doppler for further workup of syncopal episode that he had at home last Sunday. 6 mo f/u. GI/Uro - No bowel, Gi, or urinary issues. Following with Urology, Juan king for BPH. Uses Magnesium daily to keep bowels regular. Is taking flomax 0.4 mg daily for BPH. Follows with Thoracic Surgeon Dr. Julián Boothe and Valentina Sánchez, TRANSFER AND PUMPHOUSE OPERATOR CHIEF. Also follows with Gastro Dr. Kraus. GERD: Taking Protonix 40 mg 1 pill BID. HTN & A-fib: Taking Lisinopril 10 mg daily and Lopressor 25 mg 1 pill BID. No chest pains, dizziness, or unusual SOB. Had episode of syncope where he passed out at home. Was taken to the ED and admitted. Does not check BP at home, checks infrequently at home. Not following with any Work And Family Life Consultant. Was advised to have cardiac echocardiogram and carotid doppler for further work up by [facility] for sync opal episode. Thyroid: Taking Levoxyl 175 mcg daily. No missed dosages. Lipid: Taking Zocor 80 mg daily. Denies much exercise lately, but reports limited exercise due to his asthma and having shortness of breath. Tries to watch his diet some. Asthma: Stable with Symbicort and Advair inhalers. Reports not much changes, but does become windedeasier. Anemia - Chronic, monitoring through routine labs. Pain: Chronic cervical radiculopathy. Has done PT and seen Ortho. Has had injections in past which helped. Has been referrer to Pain Management and Neuro spine. - Covid up to date 01/09/23. Behavioral Health Screening Completed. Advanced Directive/Living Will scanned into chart. Shingles and RSV vaccine through Pharmacy due to Medicare. Behavioral Health Screening PHQ-2 Score: 0 (Lower risk for depression) MARION-2 Score: 1 (Lower risk for anxiety) Recommendation: no further intervention at this time PHYSICAL EXAMINATION BP 90/60 (BP Site: Left Arm, BP Position: Sitting, BP Cuff Size: Regular Adult) Pulse 96 Resp 18 Wt 78.3 kg (172 lb 9.6 oz) BMI 27.03 kg/m GENERAL: well appearing, alert, in no acute distress HEART: regular rate and rhythm. No murmur, rubs or gallops. LUNGS: clear to auscultation, no wheezing, rhonchi, or crackles ASSESSMENT/PLAN: 1. Hospital discharge follow-up - ICD9: V67.59, ICD10: Z09 (primary diagnosis) - Stable today - Recheck labs in 1 month 2. Retroperitoneal hemorrhage - ICD9: 459.0, ICD10: R58 - Stable; monitor 3. Syncope, unspecified syncope type - ICD9: 780.2, ICD10: R55 - completed testing as ordered - ECHO - PERFLUTREN LIPID MICROSPHERES 1.1 MG/ML INJECTION IN NS 10 ML - SODIUM CHLORIDE 0.9 % (FLUSH) INJECTION SYRINGE - US CAROTID ARTERIES [facility] - COMPREHENSIVE METABOLIC PANEL 4. Essential hypertension - ICD9: 401.9, ICD10: I10 - Controlled, low may lower medication in the future - Continue current medications - Recommend home blood pressure monitoring, to bring results to next visit - Recommend regular aerobic exercise - ECHO - PERFLUTREN LIPID MICROSPHERES 1.1 MG/ML INJECTION IN NS 10 ML - SODIUM CHLORIDE 0.9 % (FLUSH) INJECTION SYRINGE - US CAROTID ARTERIES [facility] - COMPREHENSIVE METABOLIC PANEL 5. Paroxysmal atrial fibrillation (HCC) - ICD9: 427.31, ICD10: I48.0 - Check Echo - ECHO - PERFLUTREN LIPID MICROSPHERES 1.1 MG/ML INJECTION IN NS 10 ML - SODIUM CHLORIDE 0.9 % (FLUSH) INJECTION SYRINGE - US CAROTID ARTERIES [facility] 6. 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 Hx of CABG - ICD9: V45.81, ICD10: Z95.1 - Check testing as ordered - ECHO - PERFLUTREN LIPID MICROSPHERES 1.1 MG/ML INJECTION IN NS 10 ML - SODIUM CHLORIDE 0.9 % (FLUSH) INJECTION SYRINGE - US CAROTID ARTERIES [facility] 8. Acquired hypothyroidism - ICD9: 244.9, ICD10: E03.9 - Instructed patient on importance of taking on an empty stomach either first thing in the morning or at bedtime. - Continue current medication regimen. 9. Mixed hyperlipidemia - ICD9: 272.2, ICD10: E78.2 - Controlled - Continue current medications - Counseled on healthy diet and regular exercise 10. Anemia, unspecified type - ICD9: 285.9, ICD10: D64.9 - Improving - check labs in 4 weeks - COMPLETE BLOOD COUNT AND DIFFERENTIAL 11. Mild intermittent asthma without complication - ICD9: 493.90, ICD10: J45.20 - Stable - Continue current medications - Avoidance of triggers recommended 12. DDD (degenerative disc disease), lumbar - ICD9: 722.52, ICD10: M51.36 Chronic low back pain - Continue current medication regimen. 13. Low sodium levels - ICD9: 276.1, ICD10: E87.1 - check labs in 4 weeks - Continue current medication regimen. - COMPREHENSIVE METABOLIC PANEL 14. Escobedo's esophagus with low grade dysplasia - ICD9: 530.85, ICD10: K22.710 - Stable - Continue current medication regimen. 15. Frequent urination - ICD9: 788.41, ICD10: R35.0 chronic - Continue current medication regimen. Follow up in 1 month with labs prior. I agree with the Chief Complaint, ROS, and Past Histories independently gathered by the clinical family readiness support assistant and the remaining scribed note accurately describes my personal service to the patient. Eloisa Espinal MD The documentation for this note was completed by Marely Begum MA acting as scribe for Eloisa Espinal MD. July 12, 2023 11:34 AM. Marely Begum MA documented in this encounterOhiohealth [facility]05-28-2024 History of Present illness Narrative* Tremayne Arnett RN - 07/10/2023 10:03 AM EDT TRANSITION CARE MANAGEMENT (TCM) FOLLOW-UP NOTE Provider Action/FYI Appts: 07/09-Lab; 07/11-PCP Pt denies questions or concerns regarding medications, self care, and discharge instructions. Pt has follow up appointments in place and is agreeable with recommended plan of care. Pt feeling better since discharge Denies any concerning symptoms/needs at this time Denies CP, Fever, Bleeding, Abdominal pain Has SOB baseline but nothing worse Denies any falls since discharge Pt to call PCP for any new/worsening symptoms. Patient identified by name and date of : YES Spoke to patient Discharge Network Status: In-Network Discharge Pur[place] plan for next outreach: No further follow up needed at this time JOSE Education Ordered -: No Tremayne Arnett RN July 10, 2023 10:03 AM documented in this encounterOhio[facility] Telephone encounter Note * Telephone Encounter - Elza Wall MA - 07/06/2023 3:16 PM EDT Pt advised he does not need an appointment for blood work. Elza Wall MA [facility]05-[facility]24 Miscellaneous Notes* Telephone Encounter - Elza Wall MA - 07/06/2023 3:16 PM EDT Pt advised he does not need an appointment for blood work. Elza Wall MA documented in this encounterOhiohealth [facility]05-23-2024 NoteHNO ID: [id number] Author: HOANG DONAHUE MD Service: Urology Author Type: Resident Type: Plan of Care Filed: 07/05/2023 14:24 Note Text: Urology Plan of Care 82 year old male with RP hematoma Plan: - labs and imaging reviewed - Hgb remained stable for the past several days - Cr wnl - no leukocytosis - remains hemodynamically stable - UA negative for infection - remainder of care per primary team - urology will sign off at this time - please re-engage with any questions or concerns Please call/text or Epic message with non-urgent questions/concerns and otherwise page the urology resident consumer affairs director if needed Hoang Donahue MD PGY1 Urology #[id number] 2:21 PM 07/05/23[facility]05-23-2024 NoteHNO ID: [id number] Author: ISATU DU MD Service: Nephrology Author Type: Nurse Practitioner Type: Progress Notes Filed: 07/05/2023 21:13 Note Text: Attestation signed by Isatu Du MD at 07/05/2023 9:13 PM Attending Note I have personally performed a face to face assessment of the patient and have reviewed the YONATHAN note. I performed a substantive portion of the visit including all aspects of the following. Sodium stable. Possible dc today Signature: Isatu Du MD Date: 07/05/2023 Time: 9:13 PM Nephrology Progress Note Following for hyponatremia Seen in room resting in bed NAD No CP or SOB No acute neuro changes Toelrating PO Current Inpatient Medications: phosphorus 250 mg tab(s) (K PHOS NEUTRAL), 250 mg, ORAL, TID after MEALS, Yossi Foster, FIELD MECHANIC/SITE LEAD.TRANSFER AND PUMPHOUSE OPERATOR CHIEF cefdinir 300 mg (OMNICEF), 300 mg, ORAL, BID, Sunny Feliciano MD, 300 mg at 07/05/23917 sodium chloride 0.9 % (flush) 2-10 mL (BD POSIFLUSH), 2-10 mL, INTRAVENOUS, DIRECTED PRN, Sunny Feliciano MD And perflutren lipid microspheres 1.1 mg/mL 1.3 mL injection (DEFINITY), 1.3 mL, INTRAVENOUS, DIRECTED PRN, Sunny Feliciano MD mupirocin 2 % 0.5 g nasal ointment (BACTROBAN), 0.5 g, NASAL, BID, Louis Rai MD, 0.5 g at 07/05/23917 tamsulosin 0.4 mg cap(s) (FLOMAX), 0.4 mg, ORAL, AT BEDTIME, Louis Rai MD, 0.4 mg at 07/04/232038 NaCl 0.9% iv flush bag, 20 mL, INTRAVENOUS, PRN, Louis Rai MD simvastatin 80 mg tab(s) (ZOCOR), 80 mg, ORAL, AT BEDTIME, Louis Rai MD, 80 mg at 07/04/232038 levothyroxine (SYNTHROID) tab(s) 175 mcg, 175 mcg, ORAL, DAILY, Louis Rai MD, 175 mcg at 07/05/23917 mometasone-formoterol 100-5 mcg/actuation 2 Puff inhaler (DULERA), 2 Puff, INHALATION, BID, Louis Rai MD, 2 Puff at 07/05/23917 metoprolol tartrate (short acting) 25 mg tab(s) (LOPRESSOR), 25 mg, ORAL, BID, Louis Rai MD, 25 mg at 07/05/[address] 40 mg tab(s) (PROTONIX), 40 mg, ORAL, BID, Louis Rai MD, 40 mg at 07/05/23 0918 acetaminophen 650 mg tab(s) (TYLENOL), 650 mg, ORAL, q 6 H PRN, Louis Rai MD, 650 mg at 07/03/23 194 No current [facility]-ordered outpatient medications on file. Vitals: BP 149/88 Pulse 98 Temp 36.8 ?C (98.2 ?F) (Oral) Resp 18 Ht 170.2 cm (5' 7) Wt 83.9 kg (184 lb 15.5 oz) SpO2 97% BMI 28.97 kg/m? BLOOD PRESSURE RANGE: Systolic (24hrs), Av , Min:114 , Max:151 ; Diastolic (24hrs), Av, Min:68, Max:89 24HR INTAKE/OUTPUT: Intake/Output Summary (Last 24 hours) at 07/05/2023 0944 Last data filed at 07/04/2023 2221 Gross per 24 hour Intake 120 ml Output 125 ml Net -5 ml Physical exam: Constitutional: NAD Skin: turgor wnl Heent: mmm Cardiovascular: Normal S1, S2 without m/r/g Respiratory: CTAB Abdomen: +bs, soft, nt, nd Ext: no lower extremity edema Data: Labs: Recent Labs 07/05/23 0404 07/04/23 1331 07/04/23 0442 07/03/23 1529 07/03/23 0321 WBC 9.06 -- -- -- 9.91 HB 9.7* 8.7* 9.6* < > 9.4* HCT 28.9* 26.3* 28.9* < > 28.8* MCV 87.8 -- -- -- 90.9 PLT 193 -- -- -- 134* < > = values in this interval not displayed. Recent Labs 07/05/23 0404 07/04/23 1326 07/04/23 0442 07/03/23 0321 NA 126* 127* 121* 129* K 3.7 3.9 3.7 3.9 CO2 21* 22 21* 21* MG 1.9 -- 1.9 2.0 BUN 8* 9 10 15 CREAT 0.65* 0.62* 0.71* 0.78 CA 8.4* 8.0* 8.5 8.1* Assessment and Plan: 82 year old male with Hypothyroidism, CABG, Hyperlipidemia, PUD, Escobedo's Esophagus, HTN. Presented to [facility] on 07/01/2023 with complaints of syncopal episodes. Patient was a transfer from the [place] ED to [facility] ED for acute retroperitoneal hematoma. Hospital course complicated with hyponatremia. Nephrology is consulted for hyponatremia. Acute on chronic Hyponatremia. 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 Has hx of Hyponatremia with Sna in the 130's per patient SNa on admission was 130 mmol/L Sna dropped to 121 mmol/L at 4am today, asymptomatic - current Sna better at 127 mmol/L - renal function preserved - Lashonda 86, Uosmol 459 consistent with SIADH Hypophosphatemia suspect from poor PO intake - p of 2.4 - replete as needed Plan - Sna lower at 126 mmol/L, no urgent need for hypertonic saline, no neurological symptoms - fluid restriction of 1.5 L per day - encourage increase solute intake - will add salt tab 1g TID - will add phosphorus tab x3 doses today - Check SNa daily - ok to DC from renal stand point, cont salt tab 1g daily at DC and will arrange for OP f/u next week. Please do not hesitate to contact me if there is any question or concern. Yossi Foster APRN.[facility]05-22-2024 NoteHNO ID: [id number] Author: SUNNY FELICIANO MD Service: Hospital Medicine Author Type: Physician Type: Progress Notes Filed: 07/04/2023 16:54 Note Text: DEPARTMENT OF HOSPITAL MEDICINE PROGRESS NOTE SERVICE DATE: 07/04/2023 SERVICE TIME: 4:43 PM Hospital Medicine/Primary Attending: Sunny Feliciano MD Subjective INTERVAL HPI: When seen today, the patient is sitting up in his chair. He is in no acute distress. He had several questions about his plan of care, which were explained to him. He says that he wants to go home. D/w him that he cannot leave yet, maycol w/ this degree of hyponatremia. MEDICATIONS: Reviewed Objective PHYSICAL EXAM: BP 128/79 Pulse 90 Temp (Src) 98.5 (Oral) Resp 17 Ht 5' 7 (1.70m) Wt 184 lb 15.5 oz (83.9kg) SpO2 97% BMI 28.96 kg/(m2). O2 Therapy: Room Air Physical Exam Performed General: Patient laying in bed, in no acute distress HEENT: Head atraumatic, PEERLA, no icterus. Cardiovascular: S1-S2 normal, no murmurs distinguished Chest: Bilateral air entry equal, normal breath sounds in all lung meneses Abdomen: Soft, nontender, bowel sounds normal Neuro: alert, no deficits on gross motor exam Extremities: no edema Lines, Drains, and Airways Line Duration Peripheral Short Left Forearm 20 Gauge -- days Peripheral 07/01/23 0842 [facility] Short Right Forearm 20 Gauge 3 days DATA: Diagnostic tests reviewed for today's visit: Most recent labs and imaging results. Assessment/Plan This is an 82-year-old male, with PMH as follows: HTN, HLD, hypothyroidism, CAD s/p CABG. The patient presented to the ER, with a complaint of abdominal pain. It seems that he was walking to the bathroom, on Sunday, and had a fall. Subsequently, he started to have abdominal pain. He was admitted with concern for sepsis, with unclear etiology as well as concern for right retroperitoneal hematoma. Concern for sepsis Concern for acute right retroperitoneal hematoma Right renal mass versus cyst Hyponatremia Acute on chronic anemia Hx CAD s/p CABG Hypothyroidism Hypertension CODE STATUS- listed as a full code. Syncopal episode prior to admission pt describes what sounds to be an acute syncopal episode prior to admission, on Sunday. Check echocardiogram. Concern for sepsis Currently, cultures remain negative. The patient is on Zosyn empirically, today is day #4. Blood culture negative. UA negative for signs of infection. Possible sources might include retroperitoneal hematoma. De-escalate antibiotics to oral at this time. Retroperitoneal hematoma AND large right renal mass No active extravasation. Urology following. CAD s/p, CABG Continue with Zocor. BPH On Flomax. Hypothyroidism On levothyroxine 175 mcg daily. Hyponatremia Sodium at 121 today. Nephrology consulted for further evaluation. Disposition: Awaiting results of cardiac echocardiogram. Follow sodium levels. Medication and Non-Pharmacologic VTE Prophylaxis/Anticoagulants 07/02/23 0900 pneumatic compression stockings (mt,oh) 07/01/23 1215 vte pharmacologic prophylaxis contraindicated (mt,oh) 07/01/23 1215 graduated compression stockings (mt,oh) 07/01/23 1215 activity - mobilize patient (mt,la) Plan of care discussed with: Provider, RN, Patient SIGNATURE: Sunny Feliciano MD PATIENT NAME: Jayden Craig DATE: July 04, 2023 TIME: 4:43 PM etx [id number] [facility]-2024 NoteHNO ID: [id number] Author: LLUVIA TERAN RN Service: Care Management Author Type: Registered Nurse Type: Care Mgt Progress Note Filed: 07/04/2023 11:46 Note Text: CARE MANAGEMENT PROGRESS NOTE SERVICE DATE: 07/04/2023 SERVICE TIME: 1141 LOS: 3 days Needs Prior to Discharge: To Be Determined;Discharge Prescriptions IMM Follow Up Copy Given: Yes Copy given to:: Patient Method: In Person Chart reviewed, patient admitted secondary to right flank pain, Acute Right RP hematoma, hyponatremia, concern for sepsis. PT OT evals are recommending home with wheeled walker. Met with patient at bedside, discussed PT OT recommendations. Pt. States he has a wheeled walker at home. Discharge plan is home with family assist. Son to provide transportation home at d/c. Will continue to follow. SIGNATURE: Lluvia Teran RN PATIENT NAME: Jayden Craig DATE: July 04, 2023 TIME: 11:41 AM PAGER/CONTACT #: [phone]23 NoteHNO ID: [id number] Author: GABRIEL THOMPSON DO Service: Hospital Medicine Author Type: Physician Type: Progress Notes Filed: 07/03/2023 14:58 Note Text: DEPARTMENT OF HOSPITAL MEDICINE PROGRESS NOTE SERVICE DATE: 07/03/2023 SERVICE TIME: 7:44 AM Hospital Medicine/Primary Attending: Gabriel Thompson DO NIGHT AND WEEKEND COVERAGE: After 7pm please page [phone] CHIEF COMPLAINT: R flank pain SUBJECTIVE: Pt seen and examined. Had 101 degree temp at 2200 last night. Fever curve since has trended down. States his R flank pain is improving, about 3/10 this morning. Otherwise denies CP, SOB, NVD, headache, or chills this morning. OBJECTIVE: PHYSICAL EXAM: BP 126/75 Pulse 102 Temp (Src) 98.2 (Temporal) Resp 20 Ht 5' 7 (1.70m) Wt 184 lb 15.5 oz (83.9kg) SpO2 93% BMI 28.96 kg/(m2). O2 Therapy: Room Air, Liters: 2 General - AANDO, NAD, Calm CV - RRR S1 S2, No rubs or gallops RESP - CTA B/L No wheezes, ronchi, rales ABD - soft, +R lateral flank TTP without guarding or rigidity, ND +BS EXT - no gross joint deformity, no clubbing, cyanosis, edema NEURO - CN II-XII grossly intact MEDICATIONS: Current Facility-Administered Medications Medication Dose Route Frequency NaCl 0.9% iv flush bag 20 mL INTRAVENOUS PRN piperacillin-tazobactam iv piggyback 3.375 g in dextrose (iso-osmotic) 50 mL (ZOSYN) 3.375 g INTRAVENOUS q 6 H simvastatin 80 mg tab(s) (ZOCOR) 80 mg ORAL AT BEDTIME levothyroxine (SYNTHROID) tab(s) 175 mcg 175 mcg ORAL DAILY mometasone-formoterol 100-5 mcg/actuation 2 Puff inhaler (DULERA) 2 Puff INHALATION BID metoprolol tartrate (short acting) 25 mg tab(s) (LOPRESSOR) 25 mg ORAL BID pantoprazole DR 40 mg tab(s) (PROTONIX) 40 mg ORAL BID acetaminophen 650 mg tab(s) (TYLENOL) 650 mg ORAL q 6 H PRN mupirocin 2 % 0.5 g nasal ointment (BACTROBAN) 0.5 g NASAL BID tamsulosin 0.4 mg cap(s) (FLOMAX) 0.4 mg ORAL AT BEDTIME phosphorus 250 mg tab(s) (K PHOS NEUTRAL) 250 mg ORAL TID after MEALS DATA: Diagnostic tests reviewed for today's visit: CBC: Recent Labs 07/03/23 0321 WBC 9.91 RBC 3.17* HB 9.4* HCT 28.8* PLT 134* MCV 90.9 MCH 29.7 MPV 11.8 Coags: No results for input(s): PT, INR, APTT in the last 24 hours. BMP: Recent Labs 07/03/23 0321 NA 129* K 3.9 CHLOR 96* CO2 21* BUN 15 CREAT 0.78 GLUC 116* CMP: Recent Labs 07/03/23 0321 NA 129* K 3.9 CHLOR 96* CO2 21* BUN 15 CREAT 0.78 GLUC 116* CA 8.1* MG 2.0 ANION 12 Cardiac Enzymes: No results for input(s): CK, MB, CKMB, TROPT in the last 24 hours. Liver Function, Amylase, Lipase: No results for input(s): TPROT, ALB, ALT, AST, ALKPHOS, TBILI, AMYLASE, LIPASE, LACTATE in the last 24 hours. MG/PHOS: Recent Labs 07/03/23 0321 MG 2.0 P 2.7 Renal Panel: Recent Labs 07/03/23 0321 CREAT 0.78 BUN 15 GLUC 116* CA 8.1* P 2.7 CHLOR 96* K 3.9 CO2 21* NA 129* Heme: No results for input(s): RETICP, ABSRETIC, LD, CRESCENCIO, FE, TIBC,TRANSFERSAT in the last 24 hours. No results found for: UALBCR Estimated Creatinine Clearance: 78.2 mL/min (based on SCr of 0.78 mg/dL). Most recent labs and radiology results reviewed. Assessment/Plan 82 yo M with PMH of HTN, HLD, hypothyroidism, CAD s/p CABG, lap hiatal hernia repair, laparoscopic christina and appy who presented with R flank pain for about 5 days per records. He feel and came to the ED with fever, tachycardia and leukocytosis. CT AP showed R perinephric/retroperitoneal hematoma and a renal 4.7 x 3.7 cm probable complicated cyst but has been increasing in size since 2022. UA negative for infection. He was started on Zosyn, and admitted to the MICU. Urology consulted. DVT chemo ppx held per ICU given bleed. #Concern for sepsis #Acute R RP hematoma #R renal mass vs cyst #Hyponatremia #acute on chronic anemia #Hx CAD s/p CABG #Hypothyroidism #HTN #HLD -I reviewed CT A/P showing above -I will change HANDH from Q 6 to Q12 to monitor for acute drop in setting of RP hematoma -will need repeat imaging/ IR consult if becomes more anemic -Blood culture no growth x 1 day, contineu to monitor and if neg x 48 hours can likely de-escalate antibiotics. Fever 101 last night around 2200. Continue zosyn 3.375g Q6 at this time -MRSA nares screen +MSSA -UA does not appear to be infected -hyponatremia appears chronic when I reviewed labs from 2022 and 2021, will continue to trend BMP daily. Na 129 (128) -continue lopressor 25mg PO BID -continue synthroid 175mcg PO every day -continue zocor 80mg QHS VTE Prophylaxis: Pneumatic Compression Device Disposition: Home Plan of care discussed with: Provider, RN, Patient SIGNATURE: Gabriel Thompson DO PATIENT NAME: Jayden Craig DATE: July 03, 2023 TIME: 7:44 AM PAGER/CONTACT #: Team color pager Disclaimer: Portions of this note may have been generated using INCHRON rec (more content not included)...[facility]05-20-2024 Telephone encounter Note* Telephone Encounter - Katarina Martin - 07/02/2023 2:57 PM EDT I will contact patient to arrange once he is discharged from the hospital. [facility]05-20-2024 Miscellaneous Notes* Telephone Encounter - Katarina Martin - 07/02/2023 2:57 PM EDT I will contact patient to arrange once he is discharged from the hospital. * Telephone Encounter - Hoang Wright MD - 07/02/2023 2:13 PM EDT IMPRESSION: 82 year old male with RP hematoma PLAN: -CT reviewed - possible R renal mass vs cyst - RP hematoma, no active extrav -MICU discuss with IR - no intervention at this time -UA negative for infection -trend Hb q6 - should Hb rapidly drop or pts clinical status rapidly decline can consider repeat imaging vs IR angio +/- embolization -bedrest -unclear etiology of fevers - does not appear to be source -rest of care per ICU F/u 3 months c ALISHA just prior documented in this encounterOhio[facility]05-[facility]-2024 NoteHNO ID: [id number] Author: AIDE RAMIREZ RN Service: Care Management Author Type: Registered Nurse Type: Care Mgt Initial Assessment Filed: 07/02/2023 14:34 Note Text: CARE MANAGEMENT: ASSESSMENT AND DISCHARGE PLAN SERVICE DATE: July 02, 2023 SERVICE TIME: 2:33 PM PCP: Eloisa Espinal MD Primary Contact: Extended Emergency Contact Information Primary Emergency Contact: KiaraAury greene Address: [address] [place] [id number] Relation: Spouse Secondary Emergency Contact: Nataliya Flores Mobile Relation: Daughter Admission Status: Inpatient Insurance Provider: MEDICARE A AND B Discharge Planning requested by: Per Department Practice Potential Transition Plans Advance Directives Current Advance Directive: Health Care Power of Manager Cardiac Cath;Living Will In Chart: Yes Up To Date and Valid: Yes Current Living Arrangements and Support Lives with: Type of Residence: Support: Current Services/Equipment Discharge Planning Patient Goal(s): Be able to go home, General wellness [place] of Choice Explained: [place] of Choice Given: No Reason Not Given: No placements necessary Are you interested in bedside delivery of your medications? 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 No DME. +PCP and pharmacy [facility]. Family to transport home. SIGNATURE: Aide Ramirez RN PATIENT NAME: Jayden Craig DATE: July 02, 2023 TIME: 2:33 PM CONTACT #: [phone] [facility]05-20-2024 Telephone encounter Note* Telephone Encounter - Hoang Wright MD - 07/02/2023 2:13 PM EDT IMPRESSION: 82 year old male with RP hematoma PLAN: -CT reviewed - possible R renal mass vs cyst - RP hematoma, no active extrav -MICU discuss with IR - no intervention at this time -UA negative for infection -trend Hb q6 - should Hb rapidly drop or pts clinical status rapidly decline can consider repeat imaging vs IR angio +/- embolization -bedrest -unclear etiology of fevers - does not appear to be source -rest of care per ICU F/u 3 months c ALISHA just prior [facility]05-20-2024 NoteHNO ID: [id number] Author: YUNIER CHO RPh Service: Pharmacy Author Type: Pharmacist Type: Plan of Care Filed: 07/03/2023 11:26 Note Text: PHARMACY MEDICATION REVIEW Patient Name: Jayden Craig : 1940 Addendum: medication history reviewed by pharmacist 07/03/2023 Yunier Cho RPh The following medications were updated within the SCORING MACHINE OPERATOR medication list: Medications ADDED to SCORING MACHINE OPERATOR medication list Medications CHANGED 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 Confirmed medications with patient. Patient stated medication list is current. Patient stated not taking any additional medications or supplements. 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 Unable to assess Preferred outpatient pharmacy: [id number] [place] [address] [address] - [phone] [facility] [[email or web address]] [phone] Allergies: Lipitor [Atorvastat* Intolerance Comment:myalgias Omnicef [Cefdinir] Diarrhea Zithromax [Azithrom* Prior to Admission Medications Prescriptions Last Dose Informant Patient Reported? Taking? THERAPEUTIC MULTIVITAMIN TAB Yes Yes Sig: Take 1 tablet by mouth once daily. acetaminophen (TYLENOL) 325 mg tablet No Yes Sig: Take 2 tablets by mouth every 4 hours as needed. aspirin, enteric coated (ASPIRIN, ENTERIC COATED) 325 mg EC tablet No Yes Sig: Take 1 tablet by mouth once daily. fluticasone (FLONASE) 50 mcg/actuation nasal spray No Yes Sig: Use 2 Sprays in each nostril once daily. Rinse mouth after use. fluticasone-salmeterol HFA (ADVAIR) 115-21 mcg/actuation inhaler No Yes Sig: INHALE 2 PUFFS INSTRUCTED TWICE DAILY. RINSE MOUTH AFTER USE. levothyroxine (LEVOXYL) 175 mcg tablet No Yes Sig: Take 1 tablet by mouth once daily. Take on empty stomach. For thyroid. lisinopril (ZESTRIL) 10 mg tablet No Yes Sig: take 1 tablet by mouth every day magnesium oxide (MAG-OX) 400 mg (241.3 mg magnesium) tablet No Yes Sig: Take 1 tablet by mouth once daily. metoprolol tartrate, short acting, (LOPRESSOR) 25 mg tablet No Yes Sig: Take 1 tablet by mouth twice daily. pantoprazole DR (PROTONIX) 40 mg tablet No Yes Sig: Take 1 tablet by mouth two times a day. Take on empty stomach, 1/2 hr before meal. senna-docusate (SENNA-S) 8.6-50 mg per tablet Yes Yes Sig: Take 1 tablet by mouth once daily. simvastatin (ZOCOR) 80 mg tablet No Yes Sig: take 1 tablet by mouth everyday at bedtime tamsulosin (FLOMAX) 0.4 mg No Yes Sig: Take 1 capsule by mouth daily at bedtime. Facility-Administered Medications Last Administration Doses Remaining perflutren lipid microspheres 1.3 mL in NaCl (PF) 0.9% 10 mL injection (DEFINITY) None recorded 1 sodium chloride 0.9 % (flush) 10 mL (BD POSIFLUSH) None recorded 1 Massiel Caruso (Program Director [employer])[id number] 07/02/2023[facility]05-[facility]24 NoteHNO ID: [id number] Author: CARLYN SHAW MD Service: Critical Care Author Type: Physician Type: Progress Notes Filed: 07/03/2023 07:41 Note Text: Please link this to the resident's note completed on July 02, 2023 PATIENT NAME: Jayden Craig Impression/Recommendations [facility] STAFF PHYSICIAN NOTE OF PERSONAL INVOLVEMENT IN CARE I have reviewed the note obtained and documented by the resident and I personally participated in the lopez components. I have discussed the case and management of the patient's care. All facets of the examination and diagnostic tests, including labs and imaging,were personally reviewed by me. Notes of other providers and relevant records were examined. Discussed with available caregivers, family, patient. The following comments revise or confirm relevant lopez components of the note. Data: All data reviewed. All diagnostic tests, including labs/culture data/specimens and imaging, were personally reviewed by me, with my imaging review/additional comments noted below, including in the assessment/plan. Notes, medications, and vitals reviewed. Interval events/data: BALJIT INFUSIONS: VITAL SIGNS: Pain Level: 0 BP 109/69 Pulse 94 Temp (Src) 98.2 (Oral) Resp 26 Ht 5' 7 (1.70m) Wt 183 lb 3.2 oz (83.1kg) SpO2 100% BMI 28.69 kg/(m2). O2 Therapy: Nasal Cannula, Liters: 3 Temp (24hrs), Av.9 ?C (100.3 ?F), Min:36.8 ?C (98.2 ?F), Max:39 ?C (102.2 ?F) VENTILATOR INFORMATION: Settings: Patient Data: Weaning Data: 24 hour Intake AND Output: Date 07/01/23699 - 07/02/2365807/02/23699 - 07/03/23 0659 Shift [id number] 1451-7937 4797-6917 24 Hour Total 0212-9562 9860-8029 0468-8701 24 Hour Total INTAKE IV 6051 231 7010 Volume (mL) (lactated ringers 1,000 mL iv bolus) 1000 1000 Volume (mL) (dextrose 5% in LR infusion (D5-LR)) 541 541 Volume (mL) (piperacillin-tazobactam iv piggyback 3.375 g in dextrose (iso-osmotic) 50 mL (ZOSYN)) 50 50 Shift Total 0538 219 6550 OUTPUT Urine 300 600 842 4711 0 0 Void (ml) 300 300 Urine Incontinence/Not Saved 1 x 1 x Output ( External Collection Device 07/01/23 1430) 300 500 800 0 0 # of BMs Number of BMs 1 x 1 x Shift Total 300 321 415 3158 0 0 Weight (kg) 83.1 83.1 83.1 83.1 83.1 83.1 83.1 83.1 Intake/Output Summary (Last 24 hours) at 07/02/2023 0840 Last data filed at 07/02/2023 0800 Gross per 24 hour Intake 1591 ml Output 1100 ml Net 491 ml LABS: Recent Labs 07/02/23 0420 07/01/23 2109 07/01/23 1139 07/01/23 0917 WBC 16.07* -- -- 20.28* HB 9.1* 9.1* 9.3* 9.9* HCT 28.9* -- -- 29.5* PLT 94* -- -- 99* NA 128* -- -- 130* K 4.0 -- -- 4.3 CHLOR 98 -- -- 98 CO2 21* -- -- 22 CREAT 0.85 -- -- 0.82 BUN 12 -- -- 11 GLUC 102* -- -- 115* P 2.4* -- -- -- MG 2.0 -- -- -- CA 8.0* -- -- 8.5 Orders Placed This Encounter DIET NPO Standing Status: Standing Number of Occurrences: 1 Order Specific Question: NPO Restrictions Answer: EXCEPT MEDS Lines, Drains, and Airways Line Duration Peripheral Short Left Forearm 20 Gauge -- days Peripheral 07/01/23 0842 [facility] Short Right Forearm 20 Gauge <1 day Drain Duration External Collection Device 07/01/23 1430 <1 day SCHEDULED MEDS: piperacillin-tazobactam, 3.375 g, q 6 H simvastatin, 80 mg, AT BEDTIME levothyroxine, 175 mcg, DAILY mometasone-formoterol, 2 Puff, BID metoprolol tartrate (short acting), 25 mg, BID pantoprazole DR, 40 mg, BID IMPRESSION/PLAN: Critical Care Documentation: The patient has the following organ/system impairment(s): 82 yo M with: # ABLA - likely d/t RP hematoma # Renal lesion- mass vs cyst- w/ associated RP hematoma - no active extravasation # Leukocytosis - may be reactive in s/o recent bleed # CAD w/ hx of CABG # Renal lesion on CT 02/2023 # Hypothyroidism # Hiatal hernia # Asymptomatic mild hyponatremia # HTN # HLD PLAN: - Hb stable, cont to monitor - No IR interventions were necessary given stability; cont to monitor - IF worse, may need repeat angio - Urology closely following and will need continued F/U for renal lesion/mass vs cyst - Advance diet - SCDs - Stable for floor transfer - Stable on RA Code Status: Full code Discussed with staff. Additionally, discussed with - Multi-disciplinary rounds performed with RN, PharmD, Resident(s) SIGNATURE: Carlyn Shaw MD [facility]- Respiratory Medicine Division of Pulmonary and Critical Care Medicine SERVICE DATE: July 02, 2023 SERVICE TIME: 11:55 [facility]05-20-2024 NoteHNO ID: [id number] Author: CARLYN SHAW MD Service: Critical Care Author Type: Physician Type: Progress Notes Filed: 07/03/2023 07:50 Note Text: [facility] STAFF PHYSICIAN NOTE OF PERSONAL INVOLVEMENT IN CARE I have reviewed the note obtained and documented by the resident and I personally participated in the lopez components. I have discussed the case and management of the patient's care. All facets of the examination and diagnostic tests, including labs and imaging,were personally reviewed by me. Notes of other providers and relevant records were examined. Please reference any relevant documentation elsewhere for the corresponding day. Discussed with available caregivers, family, patient. SIGNATURE: Carlyn Shaw MD [facility] MICU PROGRESS NOTE SERVICE DATE: 07/02/2023 SERVICE TIME: 8:04 AM Admission Date: 07/01/2023 Hospital LOS: 1 HPI: 82 year old male w/ a past medical history of HTN, HLD, hypothyroidism, CAD s/p CABG, lap hiatal hernia repair, laparoscopic cholecystectomy laparoscopic appendectomy, and ventral hernia repair. 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 The pain is 5/10, shock-like, non-radiating, exacerbated by physical activity, and no relieving factors. He also states that he has had an on/off fever, since Sunday. Patient had a fall (mechanical vs. hypotension) on Sunday in the AM after which his flank pain worsened prompting him to come to the ED. In the ED, he was found to be febrile to 38.4, tachycardic to the 120s, and had leukocytosis at 20k prompting his transfer to [facility]. In [facility] ED, investigation were remarkable for: CT AP with a right perinephric/retroperitoneal hematoma. No active extravasation. Also, a renal 4.7 x 3.7 cm probable complicated cyst but has been increasing in size since 2022. Interval History: NAONE. Hb stable, WBCs downtrending. Inpatient Medications: Current Facility-Administered Medications Medication Dose Route Frequency NaCl 0.9% iv flush bag 20 mL INTRAVENOUS PRN piperacillin-tazobactam iv piggyback 3.375 g in dextrose (iso-osmotic) 50 mL (ZOSYN) 3.375 g INTRAVENOUS q 6 H iv contrast (radiology procedure) INTRAVENOUS DIRECTED PRN simvastatin 80 mg tab(s) (ZOCOR) 80 mg ORAL AT BEDTIME levothyroxine (SYNTHROID) tab(s) 175 mcg 175 mcg ORAL DAILY mometasone-formoterol 100-5 mcg/actuation 2 Puff inhaler (DULERA) 2 Puff INHALATION BID metoprolol tartrate (short acting) 25 mg tab(s) (LOPRESSOR) 25 mg ORAL BID pantoprazole DR 40 mg tab(s) (PROTONIX) 40 mg ORAL BID acetaminophen 650 mg tab(s) (TYLENOL) 650 mg ORAL q 6 H PRN Home Medications: lisinopril (ZESTRIL) 10 mg tablettake 1 tablet by mouth every dayDisp: 90 tabletRfl: 3 simvastatin (ZOCOR) 80 mg tablettake 1 tablet by mouth everyday at bedtimeDisp: 90 tabletRfl: 3 levothyroxine (LEVOXYL) 175 mcg tabletTake 1 tablet by mouth once daily. Take on empty stomach. For thyroid.Disp: 90 tabletRfl: [address] (PROTONIX) 40 mg tabletTake 1 tablet by mouth two times a day. Take on empty stomach, 1/2 hr before meal.Disp: 180 tabletRfl: 3 tamsulosin (FLOMAX) 0.4 mgTake 1 capsule by mouth daily at bedtime.Disp: 30 capsuleRfl: 5 fluticasone (FLONASE) 50 mcg/actuation nasal sprayUse 2 Sprays in each nostril once daily. Rinse mouth after use.Disp: 16 mLRfl: 11 fluticasone-salmeterol HFA (ADVAIR) 115-21 mcg/actuation inhalerINHALE 2 PUFFS INSTRUCTED TWICE DAILY. RINSE MOUTH AFTER USE.Disp: 12 EachRfl: 5 metoprolol tartrate, short acting, (LOPRESSOR) 25 mg tabletTake 1 tablet by mouth twice daily.Disp: 180 tabletRfl: 3 aspirin, enteric coated (ASPIRIN, ENTERIC COATED) 325 mg EC tabletTake 1 tablet by mouth once daily.Disp: Rfl: magnesium oxide (MAG-OX) 400 mg (241.3 mg magnesium) tabletTake 1 tablet by mouth once daily.Disp: 90 tabletRfl: 3 senna-docusate (SENNA-S) 8.6-50 mg per tabletTake 1 tablet by mouth once daily.Disp: Rfl: acetaminophen (TYLENOL) 325 mg tabletTake 2 tablets by mouth every 4 hours as needed.Disp: 100 tabletRfl: 0 THERAPEUTIC MULTIVITAMIN TABTake 1 tablet by mouth once daily.Disp: Rfl: 0 Physical Exam: 07/02/23 0400 07/02/23 0500 07/02/23 0600 07/02/23 0700 BP: 128/76 106/61 111/67 100/72 Pulse: 112 103 98 95 Resp: 26 25 18 17 Temp: (!) 39 ?C (102.2 ?F) 36.8 ?C (98.2 ?F) TempSrc: Oral Oral SpO2: 89% 97% 98% 99% Weight: Height: Intake/Output: Intake/Output Summary (Last 24 hours) at 07/02/2023 0804 Last data filed at 07/02/2023 0529 Gross per 24 hour Intake 1591 ml Output 1100 ml Net 491 ml Physical Exam Constitutional: Appearance: Normal appearance. HENT: Mouth/Throat: Mouth: Mucous membranes are moist. Pharynx: Oropharynx is clear. Eyes: Extraocular Movements: Extraocular movements intact. Conjunctiva/sclera: Conjunctivae normal. Pupils: Pupils are equal, round, and mitchell (more content not included)...[facility]04-16-2024 Instructions* Patient Instructions* Juan King PA-C - 05/29/2023 3:10 PM EDT > 3 mo. Appt w/ B. STEPHANIE King, STEVEN FUENTES for new Rx Follow-up documented in this encounterOhio[facility]04-16-[facility] History of Present illness Narrative* Juan King PA-C - 05/29/2023 3:06 PM EDT Images from the original note were not included. [facility] NEW PATIENT CLINIC NOTE SERVICE DATE: 05/29/2023 SERVICE TIME: 3:07 PM NAME: Jayden Craig CHIEF COMPLAINT: BPH with Nocturia HISTORY OF PRESENT ILLNESS: Jayden Craig is a 82 year old male presenting as an New Patient for BPH with Nocturia The patient reports much improved BPH Nocturia on Flomax, recommended continuing Flomax Follow up in 3 months on Flomax, has enough refills LUTS: NOCTURIA: 1 per night Other symptoms: No results found for: TESTOST No results found for: TESTFREE PSA (ng/mL) Date Value 04/27/2023 2.30 06/16/2013 1.10 PSA Screening (ng/mL) Date Value 07/09/2014 1.92 06/24/2012 1.26 Hematocrit (%) Date Value 05/08/2023 32.8 03/28/2023 35.4 01/08/2023 34.0 09/08/2020 34.5 06/17/2020 34.0 10/31/2019 34.2 PSA (ng/mL) Date Value 04/27/2023 2.30 06/16/2013 1.10 PSA Screening (ng/mL) Date Value 07/09/2014 1.92 06/24/2012 1.26 Creatinine Date Value Ref Range Status 05/08/2023 0.85 0.73 - 1.22 mg/dL Final 04/27/2023 0.86 0.73 - 1.22 mg/dL Final 03/28/2023 0.93 0.73 - 1.22 mg/dL Final 01/08/2023 0.81 0.73 - 1.22 mg/dL Final MEDICATIONS: lisinopril (ZESTRIL) 10 mg tablet^take 1 tablet by mouth every day^Disp: 90 tablet^Rfl: 3 simvastatin (ZOCOR) 80 mg tablet^take 1 tablet by mouth everyday at bedtime^Disp: 90 tablet^Rfl: 3 levothyroxine (LEVOXYL) 175 mcg tablet^Take 1 tablet by mouth once daily. Take on empty stomach. For thyroid.^Disp: 90 tablet^Rfl: [address] (PROTONIX) 40 mg tablet^Take 1 tablet by mouth two times a day. Take on empty stomach, 1/2 hr before meal.^Disp: 180 tablet^Rfl: 3 tamsulosin (FLOMAX) 0.4 mg^Take 1 capsule by mouth daily at bedtime.^Disp: 30 capsule^Rfl: 5 fluticasone (FLONASE) 50 mcg/actuation nasal spray^Use 2 Sprays in each nostril once daily. Rinse mouth after use.^Disp: 16 mL^Rfl: 11 fluticasone-salmeterol HFA (ADVAIR) 115-21 mcg/actuation inhaler^INHALE 2 PUFFS INSTRUCTED TWICEDAILY. RINSE MOUTH AFTER USE.^Disp: 12 Each^Rfl: 5 metoprolol tartrate, short acting, (LOPRESSOR) 25 mg tablet^Take 1 tablet by mouth twice daily.^Disp: 180 tablet^Rfl: 3 aspirin, enteric coated (ASPIRIN, ENTERIC COATED) 325 mg EC tablet^Take 1 tablet by mouth once daily.^Disp: ^Rfl: magnesium oxide (MAG-OX) 400 mg (241.3 mg magnesium) tablet^Take 1 tablet by mouth once daily.^Disp: 90 tablet^Rfl: 3 senna-docusate (SENNA-S) 8.6-50 mg per tablet^Take 1 tablet by mouth once daily.^Disp: ^Rfl: acetaminophen (TYLENOL) 325 mg tablet^Take 2 tablets by mouth every 4 hours as needed.^Disp: 100 tablet^Rfl: 0 THERAPEUTIC MULTIVITAMIN TAB^Take 1 tablet by mouth once daily.^Disp: ^Rfl: 0 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 CAD (coronary artery disease) Constipation Essential hypertension Fatigue, unspecified type H/O ventral hernia repair 04/03/2023 Hiatal hernia 1990 History of coronary artery bypass graft 07/24/2018 VASQUES in situ mammary end to side mid LAD, Vein graft ascending aorta end to side RCA, Vein graft ascending aorta end to side obtuse marginal 1 Hyperlipidemia Peptic ulcer, unspecified site, unspecified as acute or chronic, without mention of hemorrhage, perforation, or obstruction 2004 Unspecified hypothyroidism 1989 PAST SURGICAL HISTORY: PAST SURGICAL HISTORY Procedure Laterality Date ANES HRNA RPR UPR ABD LMBR&VENTRAL HERNIA&DEHISC 04/03/[address] Regina Oswald APPENDECTOMY COLONOSCOPY FLX DX W/COLLJ SPEC WHEN PFRMD 06/28/2004 Colonoscopy COLONOSCOPY FLX DX W/COLLJ SPEC WHEN PFRMD 08/06/2015 Colonoscopy CORONARY ARTERY BYPASS GRAFT HX 07/24/2018 VASQUES in situ mammary end to side mid LAD, Vein graft ascending aorta end to side RCA, Vein graft ascending aorta end to side obtuse marginal 1. EGD N/A 06/29/2020 Dr. Keating EGD 05/31/2021 EGD TRANSORAL BIOPSY SINGLE/MULTIPLE 08/30/2009 EGD TRANSORAL BIOPSY SINGLE/MULTIPLE 08/23/2011 repeat in 2 years ESOPHAGOGASTRODUODENOSCOPY TRANSORAL DIAGNOSTIC 10/06/1998 EGD ESOPHAGOGASTRODUODENOSCOPY TRANSORAL DIAGNOSTIC 01/29/2000 EGD ESOPHAGOGASTRODUODENOSCOPY TRANSORAL DIAGNOSTIC 08/04/2003 EGD ESOPHAGOGASTRODUODENOSCOPY TRANSORAL DIAGNOSTIC 08/29/2007 EGD ESOPHAGOGASTRODUODENOSCOPY TRANSORAL DIAGNOSTIC 08/28/2013 EGD ESOPHAGOGASTRODUODENOSCOPY TRANSORAL DIAGNOSTIC 10/08/2017 EGD HEART SURGERY HX HIATAL HERNIA REPAIR HX 08/24/2022 Laparoscopic paraesophageal hernia repair with gastropexy, Primary repair of ventral hernia, EGD LAPAROSCOPIC CHOLECYSTECTOMY 12/15/2018 PAST SURGICAL HISTORY OF N/A 04/25/2017 Back surgery done at [facility], [address] [place] [address] and cleaned up arthritis REPAIR UMBILICAL HERNIA 08/24/2022 FAMILY HISTORY: FAMILY HISTORY Problem Relation Age of Onset Emphysema Father Emphysema Mother other (no cardiac hx per pt) Other SOCIAL HISTORY: Social Connections: Unknown (06/30/2022) Social Connection and Isolation Panel [NHANES] Frequency of Communication with Friends and Family: Twice a week Frequency of Social Gatherings with Friends and Family: Once a week Attends Cheondoism Services: Patient declined Active Member of Clubs or Organizations: Yes Attends Club or Organization Meetings: More than 4 times per year Marital Status: REVIEW OF SYSTEMS: GENERAL: No fever, chills, weight loss, or fatigue. ENMT: Negative CARDIOVASCULAR:NO CHEST PAIN, PALPITATIONS, ANKLE EDEMA RESPIRATORY: No chronic cough, wheezing, dyspnea, hemoptysis. GENITOURINARY: SEE HPI MUSCULOSKELETAL:NO CHRONIC BACK PAIN, ARTHRITIS, CHRONIC NECK PAIN SKIN: NO VARICOSE VEINS, RASH, ABNORMAL ITCHING HEME/LYM H/IMMUNE:Negative for prolonged bleeding, bruising easily or swollen nodes NEUROLOGICAL: NO HEADACHES, NUMBNESS, SEIZURES, STROKE DIABETES: no All other systems reviewed and are negative PHYSICAL EXAMINATION: Blood pressure 100/60, pulse 102, temperature 36.6 C (97.8 F), temperature source Temporal, resp. rate 20, height 175.3 cm (5' 9), weight 80.3 kg (177 lb), SpO2 98%. GENERAL: WNL nutrition, no deformities, healthy appearing NEURO: Awake, alert and oriented x 3 and Normal gait PSYCH: No signs of depression, anxiety, or agitation ENMT (Ear, Nose, Mouth, Throat): No masses, adenopathy, icterus. Thyroid nonpalpable RESP: NL effort, no retractions or purse-lip breathing. CV: No extremity swelling, varices, edema, pallor, erythema GASTROINTESTINAL: Soft, nontender, nondistended, no masses. HERNIAS: None SKIN: No rash, lesions No palpable lymphadenopathy MUSCULOSKELETAL: Extremities normal. No deformities, edema, clubbing or skin discoloration. PROBLEM LIST REVIEW: Yes LABS: Results for orders placed or performed in visit on 05/29/23 UA DIP, URINE (POC) Result Value Ref Range GLUCOSE UA (POCT) Negative Negative mg/dL BILIRUBIN UA (POCT) Negative Negative KETONE UA (POCT) Negative Negative mg/dL SPECIFIC GRAVITY UA (POCT) 1.025 1.005 - 1.030 HEMOGLOBIN/BLOOD UA (POCT) Negative Negative PH UA (POCT) 6.5 4.5 - 8.0 PROTEIN UA (POCT) Trace (A) Negative mg/dL UROBILINOGEN UA (POCT) 0.2 Normal E.U./dL NITRITE UA (POCT) Negative Negative LEUKOCYTES UA (POCT) Negative Negative COLOR UA (POCT) Dark yellow CLARITY UA (POCT) Slightly Cloudy PROCEDURES: PVR: 78 ml IMPRESSION/PLAN: 82 year old male with 1. Frequent urination - ICD9: 788.41, ICD10: R35.0 (primary diagnosis) 2. Screening for genitourinary condition - ICD9: V81.6, ICD10: Z13.89 > Continue Flomax - has refills > 3 mo. Appt w/ B. STEPHANIE King MT, PA-C for new Rx Follow-up I spent a total of 30 minutes on the date of the service which included preparing to see the patient, face to face patient care, completing clinical documentation, obtaining and/or reviewing separately obtained history, performing a medically appropriate examination, counseling and educating the pat ient/family/caregiver, ordering medications, tests, or procedures, and care coordination. STEPHANIE Coyne MT, PA-C * Ginger Lennon LPN - 05/29/2023 2:37 PM EDT Verified name and date of . CC Post Void Residual HPI: Jayden Craig is a 82 year old male. The patient is here now for an appointment with STEPHANIE Coyne MT, PA-COV. Procedure: Explained procedure to patient and verbalizes understanding. Performed a PVR. Patient urinated and instructed to empty bladder as much as possible just prior to having PVR done using bladder ultrasound scanner. Results of scan: 78 mL The patient tolerated the procedure well. Plan: Appointment with Juan. documented in this encounterOhio[facility]03-26-2024 Miscellaneous Notes* Telephone Encounter - Marely Begum MA - 05/08/2023 2:48 PM EDT Pt confirmed appt that's been scheduled. Dr. Espinal, pt CBC has resulted, please review. Marely Begum MA * Telephone Encounter - Marely Begum MA - 05/08/2023 2:47 PM EDT Offered pt appt with PCP on 05/10/23 with PCP at 11:20 am. 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 Scheduled appt with PCP, wait for pt to confirm. Current lab in at this time is CBC, still in process CMP and TSH. Marely Begum MA * Telephone Encounter - Marely Begum MA - 05/08/2023 1:54 PM EDT Sent message back to pt regarding labs. Asked pt what appt is needed for? What day/time works best and that he currently has his routine f/u with PCP scheduled in June. Wait pt response. Marely Begum MA * Telephone Encounter - Marely Begum MA - 05/07/2023 5:16 PM EDT See pt message. Pt had labs completed on 04/26 which were reviewed by Elsa. Marely Begum Ma documented in this encounterOhio[facility]03-18-2024 Miscellaneous Notes* Telephone Encounter - Elza Wall MA - 04/30/2023 4:37 PM EDT Pt notified and voiced understanding. He states that last night or so he has improved but he will black pickler the medication to see how it work. Asked that below be sent to him via [employer] as well so he has a record. This has been done. Elza Wall MA * Telephone Encounter - Elsa Mayo APRN.CNP - 04/30/2023 4:06 PM EDT Can you please call the patient and let him know I reviewed his lab results. Labs were all relatively normal. I would recommend that he trial the Flomax at bedtime to see if hehas any improvement with urination. If symptoms do not improve I can order an ultrasound of bladder/kidneys for further evaluation. I would like him to keep upcoming appointment with urology. Please let me know if he has any questions.Thank you. Elsa Mayo APRN.[place] documented in this encounterOhiohealth [facility]03-14-2024 Miscellaneous Notes* Telephone Encounter - Elsa Mayo APRN.CNP - 04/26/2023 2:46 PM EDT The following approved medication requests have been transmitted electronically. Requested Prescriptions Signed Prescriptions Disp Refills tamsulosin (FLOMAX) 0.4 mg 30 capsule 5 Sig: Take 1 capsule by mouth daily at bedtime. Elsa Mayo APRN.CNP * Telephone Encounter - Marely Begum Ma - 04/25/2023 4:55 PM EDT Please review pt's recent Urine test and advise. Pt sent in a message on 04/23/23 with complaints ofsymptoms. Please review message. Marely Begum Ma documented in this encounterOhiohealth [facility]03-11-2024 Miscellaneous Notes* Telephone Encounter - Elza Wall MA - 04/23/2023 3:00 PM EDT Notified via [employer]. Elza Wall MA * Telephone Encounter - Eloisa Espinal MD - 04/23/2023 2:41 PM EDT I would suggest checking a urine to see if he has an infection Eloisa Espinal MD * Telephone Encounter - Elza Wall MA - 04/23/2023 2:23 PM EDT See [employer] message. Elza Wall MA documented in this encounterOhiohealth [facility]02-27-2024 History of Present illness Narrative* Regina Oswald MD - 04/10/2023 10:47 AM EST FOLLOW UP VISIT NAME: Jayden Balderas [facility] NO.: [id number] DATE OF SERVICE: 04/10/2023 : 1940 REFERRING PHYSICIAN: Eloisa Espinal MD Jayden is status post ventral hernia repair done on 04/03/2023. Patient had complaint of constipation, which I had recommended miralax, dulcolax, etc. This has since resolved and he notes soft bowel movements at present. VITALS: Temperature 36.1 C (97 F). On examination, abdomen is soft and benign. Wound is healing well without evidence of infection Abdominal wall rectus diastasis noted. Assessment IMPRESSION: status post ventral hernia repair PLAN: Patient is instructed to make an appointment to return to clinic if any worsening signs/symptoms. Patient will return to his PCP for medical care. Patient acknowledges above. Diagnoses: (Z98.890, Z87.19) Status post repair of ventral hernia I have confirmed and edited as necessary, the PFSH and ROS obtained by others. Regina Oswald MD documented in this encounterOhiohealth Van [facility]02-14-2024 Instructions* Patient Instructions* Britni Wilson APRN.TRANSFER AND PUMPHOUSE OPERATOR CHIEF - 03/28/2023 10:54 AM EST PATIENT PREOPERATIVE INSTRUCTIONS Regina Oswald MD has scheduled you for your procedure at this surgery center: [facility]: [phone] -- [address] [facility] [facility] [address]. Please read below carefully for your personalized instructions. Dietary Restrictions: - No solid food after midnight. - You may have 12 ounces of clear liquids (water, clear juices such as apple juice or gatorade, carbonated beverages, clear tea, black coffee, jello) until 2 hours before scheduled arrival at facility. No red/purple coloring and no creamer/sugar Medications: Unless instructed differently below, stay on all of your medications until your surgery. If you start any new medications after today's visit, please contact your surgeon. Pre-Surgery Med Instructions Medication Instructions fluticasone (FLONASE) 50 mcg/actuation nasal spray Take the day of surgery with a small sip of water fluticasone-salmeterol HFA (ADVAIR) 115-21 mcg/actuation inhaler Take the day of surgery with a small sip of water metoprolol tartrate, short acting, (LOPRESSOR) 25 mg tablet Take the day of surgery with a small sip of water levothyroxine (LEVOXYL) 200 mcg tablet Take the day of surgery with a small sip of water lisinopril (ZESTRIL) 10 mg tablet Do not take the day of surgery simvastatin (ZOCOR) 80 mg tablet Take the day of surgery with a small sip of water pantoprazole DR (PROTONIX) 40 mg tablet Take the day of surgery with a small sip of water aspirin, enteric coated (ASPIRIN, ENTERIC COATED) 325 mg EC tablet Stop 7 days before surgery magnesium oxide (MAG-OX) 400 mg (241.3 mg magnesium) tablet Stop 7 days before surgery senna-docusate (SENNA-S) 8.6-50 mg per tablet Take the day of surgery with a small sip of water acetaminophen (TYLENOL) 325 mg tablet IF needed THERAPEUTIC MULTIVITAMIN TAB Stop 7 days before surgery If you take any medications for erectile dysfunction-Cialis (Tadalafil), Levitra, Staxyn (Vardenafil) Viagra (Sildenenafil please do not take these for 48 hours before surgery. If you start any new medications after today's visit, please contact the surgeon's office. Blood Thinning Medications: - Stop NSAIDS (Ibuprofen, Advil, Aleve, Motrin, Celebrex, Mobic, etc.) 7 days before surgery, as directed by your surgeon. - Stop Aspirin 7 days before surgery, as directed by your surgeon. - Stop Vitamin E, ALL multi-vitamins, herbals and dietary supplements 7 days before surgery. - You may take Tylenol (Acetaminophen) or any of your pain medications that do not contain aspirin or NSAIDS as needed. Important Reminders: - Candy, mints, gum and tobacco products are NOT permitted the morning of surgery. - Hearing aids, dentures and glasses may be worn the morning of surgery. - NO jewelry, body piercings, makeup, hairpins or contacts are to be worn the day of surgery. If you develop symptoms such as a fever, cold, or flu, or have other changes to your health within TWO DAYS of scheduled surgery or the morning of surgery, please contact the surgery center above. Personal Belongings: -Please have photo ID and insurance cards. -If you do not have a copy of advance directives on file with us, please bring a copy with you on the day of surgery. - Leave ALL valuables and money at home or with family members. For Outpatient Procedures: - YOU MUST HAVE A RESPONSIBLE DENTAL TECHNOLOGY ADVISOR TAKE YOU HOME. A OUTSIDE SALES ACCOUNT REPRESENTATIVE OR DRAFTER STRUCTURAL CANNOT BE MADE A RESPONSIBLE DENTAL TECHNOLOGY ADVISOR. - We recommend that a responsible person stays with you overnight to take care of you. - You cannot stay in a hotel alone after outpatient surgery. You will not be permitted to have yoursurgery, if you do not have someone to take care of you. Arrival Time for Surgery: - The Surgery Center or hospital where you are having surgery will call the afternoon before surgery (or Sunday for Sunday surgery) with a scheduled arrival time. - If you have not heard by 4 pm, please contact the surgery center above. Please be aware that emergency situations arise, which may delay or change your surgical time. If this happens, we will notify you as soon as possible and regret any inconvenience. If you already have an Advance Directive, please fax a copy to [phone] or email to for it to be added to your chart. If you do not have an Advance Directive, you can find the appropriate form and more information at [email or web address]. We recommend that youcomplete the Advance Directive form found on the website and bring it with you the day of your surgery. It can be witnessed and scanned into your chart that day. 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 Left ventricular systolic function is normal. EF = 57 5% (2D biplane) - The right ventricle is normal in size. Right ventricular systolic function is normal. - Trivial-1+ MR. - 1+ TR. - Estimated right ventricular systolic pressure is 35 mmHg consistent with normal pulmonary artery pressures. Estimated right atrial pressure is 3 mmHg based on IVC assessment. - Exam was compared with the prior echocardiographic exam performed on 08/27/2018. Overall similar findings. 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 Assessment: controlled on rx COPD, mild (HCC) Assessment: normal PFT 10/2021, rx as neeeded Esophageal stricture Assessment: hx multiple dilations Essential hypertension Assessment: controlled on rx Gastroesophageal reflux disease with esophagitis Assessment: controlled on rx Mixed hyperlipidemia Assessment: c/w statin Paraesophageal hernia Assessment: s/p repair Paroxysmal atrial fibrillation (HCC) Assessment: remote hx Spondylosis of lumbar region without myelopathy or radiculopathy Assessment: chronic back pain [place] Activity Status Index: METS: Climb a flight of stairs or walk up a hill (5.50 METs) DASI Score: 5.5 Patient denies any chest pain or undue shortness of breath with the above physical activity. Clinical Frailty Scale: 3. Well, with treated comorbid disease STOP-Bang Score: Patient over 50 years old Male patient Denies snoring loudly Denies feeling tired, fatigued, or sleepy during the daytime Has not been observed to stop breathing or choking/gasping during sleep Denies having high blood pressure BMI less than or equal to 35 kg/m^2 Does not have a large neck STOP-Bang Score: 2 [id number] Score: Age: >=75 Sex: male CHF history: No Hypertension history: Yes Stroke/TIA/thromboembolism history: No Vascular disease history: Yes Diabetes history: No [id number] Score: 4 ARISCAT Score: Age: 51-80 Preoperative SpO2: >=96% Respiratory infection in the last month: No Preoperative anemia: No Surgical incision: upper abdominal Duration of surgery: 2-3 hrs Emergency procedure: No ARISCAT Score: 34 ANESTHESIA FINDINGS: Intubation History: No history of difficult intubation Significant Anesthesia Considerations: none Airway History: Fairly easy mask ventilation. Intubation was difficult with Mac 3 blade. only the epiglottis was visualized, but a blind intubation was successful. No history of difficult airway I - PHYSICAL EVALUATION AIRWAY Patient intubated: No. Tracheostomy tube not present Mallampati: II. TM distance: >3 FB. Neck ROM: full ROM without neurological symptoms. Mouth opening: adequate. Short neck: no. Thick neck: no Souza present: no Lip Bite Test: I Microretrognathia/Micronagthia/Recessed Chin: No DENTAL Dental findings: teeth intact. II - ANESTHESIA PLAN Anesthetic Plan: other Beta [place] Monitoring Plan Post Procedure Analgesic Plan Informed Consent Anesthetic risks, benefits, alternatives, personnel and consent discussed: yes. Patient / Responsible [employer] agrees to proceed: yes Patient / Surrogate agrees to blood products: blood products not planned Discussed the possibility of lip / dental damage: yes Prepared for Surgery: optimally prepared for surgery, pending [see comment]. labs CONSULTS: Patient does not require consults for optimization at this time Planned Anesthetic: other anesthesia choice The Following Tests/Procedures Have Been Initiated: Orders Placed This Encounter >CBC + AUTO DIFF Standing Status: Future Number of Occurrences: 1 Standing Expiration Date: 06/27/2023 >CMP Standing Status: Future Number of Occurrences: 1 Standing Expiration Date: 06/27/2023 REASON FOR VISIT: Jayden Craig is a 82 year old male who is scheduled for Procedure(s): IMPLANT MESH INCISIONAL HERNIA REPAIR INITIAL 3 cm-10 cm (N/A) at the request of Dr. Regina Oswald for consultation. My final recommendation will be communicated back to the requesting physician by way of shared medical record or letter. 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 Ddd (Degenerative Disc Disease), Lumbar Spondylosis of Lumbar Region Without Myelopathy Or Radiculopathy Atherosclerotic Heart Disease of [place] Coronary Artery With Other Forms of Angina Pectoris (Hcc) Discharge Planning Issues Pain, Postoperative, Acute Coronary Artery Disease Involving Autologous Artery Coronary Bypass Graft With Unstable Angina Pectoris (Hcc) Esophageal Stricture Gastroesophageal Reflux Disease With Esophagitis Paroxysmal Atrial Fibrillation (Hcc) Essential Hypertension Chronic Anticoagulation Hx of Cabg S/P Cholecystectomy Rash Other Disorders of Arteries, Arterioles and Capillaries in Diseases Classified Elsewhere (Hcc) Copd, Mild (Hcc) Paraesophageal Hernia Red Blood Cell Antibody Positive COVID-19 Immunization Status Covid-19 Vaccine (Series Information) Completed 01/09/2023 Imm Admin: COVID-19 vaccine, age 12+ yr, 2022- season (iLyngo-BIONTExelis) 12/12/2021 Imm Admin: COVID-19 vaccine, age 12+ yr, bivalent (MatchbinBIOSchrodinger) 07/06/2021 Imm Admin: COVID-19 original vaccine, age 12+ yr, monovalent (iLyngo- BIONTExelis - [facility]) Only the first 3 history entries have been loaded, but more history exists. CHIEF COMPLAINT: Pre-op exam HPI: Jayden Craig is a 82 year old seen for PAC due to scheduled above surgery because of a ventral hernia. 03/16/23, Dr. Regina Oswald REFERRING PHYSICIAN: No ref. provider found CHIEF COMPLAINT: Consult (Hernia, CT scan 02/15/23) HPI: The patient is a 82 year old male presents with ventral hernia, > 3 cm. He is s/p laparoscopic repair of paraesophageal hernia with gastropexy, primary repair of ventral hernia and EGD. 08/24/2022. This was done last summer. He has noted an enlarging ventral hernia since. CT scan - 02/14/2023 - reveals ventral incisional hernia. He notes tenderness in the area and sharp pains intermittently He does admit to doing some heavy lifting after surgery. REVIEW OF SYSTEMS: General: No weight loss, malaise or fevers. Neurological: No history of TIA's, stroke, ADVERTISING ASSISTANT tumor, impaired sensorium, hemiplegia, paraplegia orquadraplegia. No neurological symptoms or problems. Respiratory: +former smoker Positive for: asthma and COPD. Negative for: pneumonia within 6 weeks, tobacco use, URI < 2 weeks and obstructive sleep apnea. Cardiovascular: Positive for: anticoagulation therapy (ASA), atrial fibrillation (paroxymal), CAD, hyperlipidemia, hypertension and open heart surgery Patient's last office visit The following tests and/or procedures were not performed: cardiac stents. Negative for: AICD/PPM, arrhythmia, chest pain, CHF, congenital heart defect, DVT/PE, recent AR, murmur/valvular heart disease and valve surgery. GI: Positive for: GERD (on rx) Negative for: abdominal pain, dysphagia, hepatitis, irritable bowel syndrome, inflammatory bowel disease, liver disease, nausea, pancreatitis, vomiting and ETOH >2 drinks/day. : No history of dysuria, frequency or incontinence, stones or chronic kidney disease. No difficulty urinating, nocturia > 1 time per night or hematuria. Endocrine: Positive for: hypothyroidism (on rx). Negative for: diabetes mellitus. Hematology: Positive for: chronic anti-coagulation/platelet meds. Patient is on anti- coagulation/platelet medication(s): Aspirin. Negative for: anemia, bruises/bleeds easily and transfusion of at least 4 units within 72 hours prior to surgery. Oncology: No history of CA metastasis, chemo within 30 days, or radiotherapy within 90 days. No history of oncological symptoms or problems. Psych: No history of psychiatric symptoms or problems. Musculoskeletal: Positive for: back pain. Skin: Negative for lesions, rash and itching. 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 VASQUES in situ mammary end to side mid LAD, Vein graft ascending aorta end to side RCA, Vein graft ascending aorta end to side obtuse marginal 1 Hyperlipidemia Peptic ulcer, unspecified site, unspecified as acute or chronic, without mention of hemorrhage, perforation, or obstruction 2004 Unspecified hypothyroidism 1989 PAST SURGICAL HISTORY Procedure Laterality Date APPENDECTOMY COLONOSCOPY FLX DX W/COLLJ SPEC WHEN PFRMD 06/28/2004 Colonoscopy COLONOSCOPY FLX DX W/COLLJ SPEC WHEN PFRMD 08/06/2015 Colonoscopy CORONARY ARTERY BYPASS GRAFT HX 07/24/2018 VASQUES in situ mammary end to side mid LAD, Vein graft ascending aorta end to side RCA, Vein graft ascending aorta end to side obtuse marginal 1. EGD N/A 06/29/2020 Dr. Keating EGD 05/31/2021 EGD TRANSORAL BIOPSY SINGLE/MULTIPLE 08/30/2009 EGD TRANSORAL BIOPSY SINGLE/MULTIPLE 08/23/2011 repeat in 2 years ESOPHAGOGASTRODUODENOSCOPY TRANSORAL DIAGNOSTIC 10/06/1998 EGD ESOPHAGOGASTRODUODENOSCOPY TRANSORAL DIAGNOSTIC 01/29/2000 EGD ESOPHAGOGASTRODUODENOSCOPY TRANSORAL DIAGNOSTIC 08/04/2003 EGD ESOPHAGOGASTRODUODENOSCOPY TRANSORAL DIAGNOSTIC 08/29/2007 EGD ESOPHAGOGASTRODUODENOSCOPY TRANSORAL DIAGNOSTIC 08/28/2013 EGD ESOPHAGOGASTRODUODENOSCOPY TRANSORAL DIAGNOSTIC 10/08/2017 EGD HEART SURGERY HX HIATAL HERNIA REPAIR HX 08/24/2022 Laparoscopic paraesophageal hernia repair with gastropexy, Primary repair of ventral hernia, EGD LAPAROSCOPIC CHOLECYSTECTOMY 12/15/2018 PAST SURGICAL HISTORY OF N/A 04/25/2017 Back surgery done at [facility], [address] [place] [address] and cleaned up arthritis REPAIR UMBILICAL HERNIA 08/24/2022 FAMILY HISTORY Problem Relation Age of Onset Emphysema Father Emphysema Mother other (no cardiac hx per pt) Other Social History Tobacco Use Smoking status: Former Packs/day: 0.50 Years: 27.00 Additional pack years: 0.00 Total pack years: 13.50 Types: Cigarettes Quit date: 1982 Years since quittin.1 Smokeless tobacco: Never Vaping Use Vaping Use: Never used Substance Use Topics Alcohol use: Not Currently Comment: 1/ week Drug use: No Prior to Admission medications as of 04/03/23 0723 Medication Sig Last Dose Taking fluticasone (FLONASE) 50 mcg/actuation nasal spray Use 2 Sprays in each nostril once daily. Rinse mouth after use. Taking Yes fluticasone-salmeterol HFA (ADVAIR) 115-21 mcg/actuation inhaler INHALE 2 PUFFS INSTRUCTED TWICEDAILY. RINSE MOUTH AFTER USE. Taking Yes metoprolol tartrate, short acting, (LOPRESSOR) 25 mg tablet Take 1 tablet by mouth twice daily. Taking Yes levothyroxine (LEVOXYL) 200 mcg tablet Take 1 tablet by mouth once daily. Take on empty stomach. For Thyroid. Taking Yes lisinopril (ZESTRIL) 10 mg tablet Take 1 tablet by mouth once daily. Taking Yes simvastatin (ZOCOR) 80 mg tablet Take 1 tablet by mouth daily at bedtime. Taking Yes pantoprazole DR (PROTONIX) 40 mg tablet TAKE 1 TABLET BY MOUTH TWICE DAILY. TAKE ON EMPTY STOMACH, 1/2 HR BEFORE MEAL. Taking Yes aspirin, enteric coated (ASPIRIN, ENTERIC COATED) 325 mg EC tablet Take 1 tablet by mouth once daily. Taking Yes magnesium oxide (MAG-OX) 400 mg (241.3 mg magnesium) tablet Take 1 tablet by mouth once daily. Taking Yes senna-docusate (SENNA-S) 8.6-50 mg per tablet Take 1 tablet by mouth once daily. Taking Yes acetaminophen (TYLENOL) 325 mg tablet Take 2 tablets by mouth every 4 hours as needed. Taking Yes THERAPEUTIC MULTIVITAMIN TAB one tab daily Taking Yes Medication Comments documented by Yas Garcia, PT on 12/26/2018 at 1609. 12/25/18 The medications are managed by this patient by: SPOUSE Ila Winkler PharmD severe interactions reported to [facility] 12/2607/30/18 The medications are managed by this patient by: PATIENT Elsa Gallagher, Radha ALLERGIES Allergen Reactions Lipitor [Atorvastat* Intolerance myalgias Omnicef [Cefdinir] Diarrhea Zithromax [Azithrom* Objective PHYSICAL EXAM: General: alert and oriented (x3) and healthy appearance. Pertinent negatives noted - not distressed. Skin: normal color, no rash or lesions. HEENT: EOM intact and pupils equal round. Pertinent negatives noted - no carotid bruit. Cardiovascular: regular rate and rhythm, normal S1 and S2, no rub, murmurs, or gallop. Respiratory: normal breath sounds, no wheezes or crackles. No chest wall deformity or tenderness. Abdomen: soft. Pertinent negatives noted - not tender. Extremities: no deformity, no edema or tenderness, no joint swelling or clubbing. Neurological: normal cognition and motor skills. Gait normal. No weakness or sensory deficit. PAIN ASSESSMENT: Pain Pain Level: 3 Pain Location: Abdomen Description: (swelling) Duration Amount of Time: 4 Duration Units: Months Frequency: Continuous VITALS: BP 128/80 Pulse 82 Temp (Src) 97.4 (Temporal) Resp 16 Ht 5' 9 (1.75m) Wt 176 lb (79.8kg) SpO2 99% BMI 25.98 kg/(m^2). Diagnostic tests reviewed for today's visit: Lab Value Units Date High Low HB 11.7 g/dL 03/28/2023 17.0 13.0 HCT 35.4 % 03/28/2023 51.0 39.0 WBC 5.28 k/uL 03/28/2023 11.00 3.70 PLT 122 k/uL 03/28/2023 400 150 NA 129 mmol/L 03/28/2023 144 136 K 5.1 mmol/L 03/28/2023 5.1 3.7 GLUC 106 mg/dL 03/28/2023 99 74 BUN 18 mg/dL 03/28/2023 24 9 CREAT 0.93 mg/dL 03/28/2023 1.22 0.73 PTSEC No results within date range. INR No results within date range. APTT No results within date range. ALT 17 U/L 03/28/2023 54 10 AST 28 U/L 03/28/2023 40 14 TBILI 0.6 mg/dL 03/28/2023 1.3 0.2 TSH 0.561 mIU/L 01/08/2023 4.200 0.270 Lab Value Units Date High Low HCGQT No results within date range. UHCG No results within date range. HCG, BODY* No results within date range. Lab Value Units Date High Low ABORHD No results within date range. ABSCREEN No results within date range. Hemoglobin A1C (%) Date Value 10/31/2019 5.8 Recent Results (from the past 8760 hour(s)) ECG COMPLETE Collection Time: 08/23/22 7:20 AM Result Value Ventricular Rate 79 Atrial Rate 79 P-R Interval 170 QRS Duration 86 QT Interval 390 QTC Calculation (Bazett) 447 Calculated R Rosalie -8 Calculated T Rosalie 13 Impression NORMAL SINUS RHYTHM NORMAL ECG Confirmed by LILLIAM DEL CID MD ([id number]) on 08/25/2022 8:36:51 AM Recent Results (from the past 93875 hour(s)) ECHO Collection Time: 08/23/22 12:07 PM Impression CONCLUSIONS: - Exam indication: Hernia pre-op - The left ventricle is normal in size. Left ventricular systolic function is normal. EF = 57 5% (2D biplane) - The right ventricle is normal in size. Right ventricular systolic function is normal. - Trivial-1+ MR. - 1+ TR. - Estimated right ventricular systolic pressure is 35 mmHg consistent with normal pulmonary artery pressures. Estimated right atrial pressure is 3 mmHg based on IVC assessment. - Exam was compared with the prior [facility] echocardiographic exam performed on 08/27/2018. Overall similar findings. * * * Final * * * Instructions Given to Patient: Instructions located in the after visit summary. Patient given verbal and written preop instructions and voices comprehension and compliance. SIGNATURE: Britni Wilosn APRN.CNP PATIENT NAME: Jayden Craig DATE: March 28, 2023 TIME: 10:46 AM PAGER/CONTACT #: documented in this encounterOhio[facility] History of Present illness Narrative* Regina Oswald MD - 03/16/2023 3:23 PM EST HISTORY AND PHYSICAL Jayden Balderas Kiara 1940 REFERRING PHYSICIAN: No ref. provider found CHIEF COMPLAINT: Consult (Hernia, CT scan 02/15/23) HPI: The patient is a 82 year old male presents with ventral hernia, > 3 cm. He is s/p laparoscopic repair of paraesophageal hernia with gastropexy, primary repair of ventral hernia and EGD. 08/24/2022. This was done last summer. He has noted an enlarging ventral hernia since. CT scan - 02/14/2023 - reveals ventral incisional hernia. He notes tenderness in the area and sharp pains intermittently He does admit to doing some heavy lifting after surgery. 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 VASQUES in situ mammary end to side mid LAD, Vein graft ascending aorta end to side RCA, Vein graft ascending aorta end to side obtuse marginal 1 Hyperlipidemia Peptic ulcer, unspecified site, unspecified as acute or chronic, without mention of hemorrhage, perforation, or obstruction 2004 Unspecified hypothyroidism 1989 PAST SURGICAL HISTORY Procedure Laterality Date APPENDECTOMY COLONOSCOPY FLX DX W/COLLJ SPEC WHEN PFRMD 06/28/2004 Colonoscopy COLONOSCOPY FLX DX W/COLLJ SPEC WHEN PFRMD 08/06/2015 Colonoscopy CORONARY ARTERY BYPASS GRAFT HX 07/24/2018 VASQUES in situ mammary end to side mid LAD, Vein graft ascending aorta end to side RCA, Vein graft ascending aorta end to side obtuse marginal 1. EGD N/A 06/29/2020 Dr. Keating EGD 05/31/2021 EGD TRANSORAL BIOPSY SINGLE/MULTIPLE 08/30/2009 EGD TRANSORAL BIOPSY SINGLE/MULTIPLE 08/23/2011 repeat in 2 years ESOPHAGOGASTRODUODENOSCOPY TRANSORAL DIAGNOSTIC 10/06/1998 EGD ESOPHAGOGASTRODUODENOSCOPY TRANSORAL DIAGNOSTIC 01/29/2000 EGD ESOPHAGOGASTRODUODENOSCOPY TRANSORAL DIAGNOSTIC 08/04/2003 EGD ESOPHAGOGASTRODUODENOSCOPY TRANSORAL DIAGNOSTIC 08/29/2007 EGD ESOPHAGOGASTRODUODENOSCOPY TRANSORAL DIAGNOSTIC 08/28/2013 EGD ESOPHAGOGASTRODUODENOSCOPY TRANSORAL DIAGNOSTIC 10/08/2017 EGD HEART SURGERY HX HIATAL HERNIA REPAIR HX 08/24/2022 Laparoscopic paraesophageal hernia repair with gastropexy, Primary repair of ventral hernia, EGD LAPAROSCOPIC CHOLECYSTECTOMY 12/15/2018 PAST SURGICAL HISTORY OF N/A 04/25/2017 Back surgery done at [facility], [address] [place] [address] and cleaned up arthritis REPAIR UMBILICAL HERNIA 08/24/2022 Current Outpatient Medications Medication Sig fluticasone (FLONASE) 50 mcg/actuation nasal spray Use 2 Sprays in each nostril once daily. Rinse mouth after use. fluticasone-salmeterol HFA (ADVAIR) 115-21 mcg/actuation inhaler INHALE 2 PUFFS INSTRUCTED TWICEDAILY. RINSE MOUTH AFTER USE. metoprolol tartrate, short acting, (LOPRESSOR) 25 mg tablet Take 1 tablet by mouth twice daily. levothyroxine (LEVOXYL) 200 mcg tablet Take 1 tablet by mouth once daily. Take on empty stomach. For Thyroid. lisinopril (ZESTRIL) 10 mg tablet Take 1 tablet by mouth once daily. simvastatin (ZOCOR) 80 mg tablet Take 1 tablet by mouth daily at bedtime. pantoprazole DR (PROTONIX) 40 mg tablet TAKE 1 TABLET BY MOUTH TWICE DAILY. TAKE ON EMPTY STOMACH, 1/2 HR BEFORE MEAL. aspirin, enteric coated (ASPIRIN, ENTERIC COATED) 325 mg EC tablet Take 1 tablet by mouth once daily. magnesium oxide (MAG-OX) 400 mg (241.3 mg magnesium) tablet Take 1 tablet by mouth once daily. senna-docusate (SENNA-S) 8.6-50 mg per tablet Take 1 tablet by mouth once daily. acetaminophen (TYLENOL) 325 mg tablet Take 2 tablets by mouth every 4 hours as needed. THERAPEUTIC MULTIVITAMIN TAB one tab daily ALLERGIES: Lipitor [Atorvastatin Calcium], Omnicef [Cefdinir], and Zithromax [Azithromycin] PERSONAL HISTORY: Social History Tobacco Use Smoking status: Former Packs/day: 0.50 Years: 27.00 Additional pack years: 0.00 Total pack years: 13.50 Types: Cigarettes Quit date: 1981 Years since quittin.1 Smokeless tobacco: Never Vaping Use Vaping Use: Never used Substance Use Topics Alcohol use: Yes Alcohol/week: 2.0 standard drinks of alcohol Types: 2 Cans of Beer (12oz) per week Comment: 2-3 cans of beer per week Drug use: No FAMILY HISTORY Problem Relation Age of Onset Emphysema Father Emphysema Mother other (no cardiac hx per pt) Other The review of systems data was entered by the nurse and reviewed by me Nursing Notes: Zana Saleh LPN 03/16/2023 2:39 PM Signed REVIEW OF SYSTEMS: General: The patient denies fatigue, denies weight loss, denies weight gain, denies feeling hot, and denies feelings of cold. Eyes: The patient denies glaucoma, denies eye injury/surgery, wears glasses or contacts. Ear/Nose/Throat: The patient notes allergies, denies hayfever, denies ear infections, and denies bloody noses. Cardiovascular: The patient denies chest pain, notes heart disease, denies high blood pressure,denies cardiac stent, denies prior heart attack, denies irregular heart beat, denies high cholesterol, denies poor circulation, denies heart failure, other cardiac issues, denies claudication, denies coldfeet, denies peripheral arterial stent. Respiratory: The patient denies tuberculosis, denies pneumonia, denies frequent cough, denies pulmonary embolism, denies shortness of breath, and denies coughing up blood, Notes COPD Gastrointestinal: The patient denies difficulty swallowing, denies acid reflux, denies ulcers, denies vomiting, denies jaundice/hepatitis, notes gallbladder problems, denies black or tarry stools, denies hemorrhoids, denies bleeding from rectum, denies diverticulitis, denies constipation, denies diarrhea, denies loss of stool control, and notes hernias. Kidney/Bladder: The patient denies kidney stones, denies urine infections, and denies bloody urine. Skin: The patient denies a history of skin cancer, denies bleeding/changing moles, and denies a history of skin rash. Neurologic: The patient denies a history of epilepsy/convulsions, denies headaches, denies head/spinal injuries, and denies stroke/TIA. Psychiatric: The patient denies psychiatric medications, denies depression, and denies voices, denies substance abuse. Endocrine: The patient notes thyroid disorders, denies diabetes, and denies hormonal problems. Hematologic: The patient denies a history of bruising, denies bleeding, and denies anemia, denies blood clots. Infections: The patient denies a history of measles and mumps, denies rheumatic fever, and denies sexually transmitted diseases. Musculoskeletal: The patient notes back pain/injury, denies back problems, notes sciatica, denies knee/foot trouble, denies arthritis, or denies gout. Last Colonoscopy: 2015 Zana SalehRETA PHYSICAL EXAMINATION: General: The patient is 82 year old male, well nourished, well hydrated in no acute distress. The patient is oriented to time, place, and person. VITALS: Blood pressure 118/72, pulse 108, temperature (!) 35.6 C (96.1 F), height 177.8 cm (5' 10), weight 80.3 kg (177 lb), SpO2 100%. Body mass index is 25.4 kg/m . Head - Normocephalic. EOM intact with sclera clear and no icterus noted. Mouth with mucus membranesmoist. Neck - supple with no jugular venous distention noted. Trachea is midline. Lungs - clear to auscultation. Normal breath sounds. No rales/rhonchi/wheezing noted. No labored breathing noted, such as retractions. No cough heard. Heart - normal S1 and S2 auscultated. No rubs/clicks/murmurs noted. Regular rate. Abdomen - soft slightly obese, rectus diastasis and benign. Incisional ventral hernia - protruding. Extremities - no calf tenderness noted. No pitting edema noted. Skin - normal skin integrity. Neurological - gait normal, no focal deficits noted. Psych - calm and appropriate Assessment IMPRESSION: incisional ventral hernia PLAN: I have discussed the above with the patient and his who is present with him I have offered ventral incisional hernia, use of mesh. I have explained the procedure to the patient. To be done at [facility]. I have counseled the patient as to the risks of the procedure, including but not limited to: infection, bleeding, injury to any blood vessels/nerves, scar tissue, injury to any intrabdominal organs, injury to bowel/bladder, intraabdominal abscess/bleeding, recurrence of hernia, wound infections, complications of anesthesia, etc. - the patient understands. The patient wishes to proceed. I have answered all questions to the patient s satisfaction and the patient has no further questions. I have confirmed and edited as necessary, the PFSH and ROS obtained by others. Diagnoses: (K43.2) Ventral incisional hernia without obstruction or gangrene (primary encounter diagnosis) Consultation requested by Dr. Eloisa Espinal for an opinion regarding patient's ventral hernia. Myfinal recommendations will be communicated back to the requesting physician by way of shared Medical record or letter to requesting physician via US mail. I spent a total of 34 minutes on the date of the service which included preparing to see the patient with review of any pertinent laboratory studies/radiological imaging/medical records, pvuk-wa-qjnntgnllum care, obtaining oral medical history from the patient in this encounter, performing a medically appropriate examination, counseling and educating the patient/family/caregiver, and ordering and/or scheduling of medications/tests/procedures, and completing appropriate medical documentation. Regina Oswald MD documented in this encounterOhiohealth [facility]02-02-2024 Telephone encounter Note * Telephone Encounter - Ivet Puri - 03/16/2023 2:58 PM EST 04/03/2023 VENTRAL HERNIA REPAIR SANA Oswald please place surgical order so case may be built and scheduled Ivet Puri Finished Metal Repairer [facility]02-02-20[facility] Miscellaneous Notes* Telephone Encounter - Ivet Puri - 03/16/2023 2:58 PM EST 04/03/2023 VENTRAL HERNIA REPAIR SANA Oswald please place surgical order so case may be built and scheduled Ivet Puri Finished Metal Repairer documented in this encounterOhiohealth Van Wert Hospital02-02-2024 Nurse Note* Zana Saleh LPN - 03/16/2023 2:34 PM EST REVIEW OF SYSTEMS: General: The patient denies fatigue, denies weight loss, denies weight gain, denies feeling hot, and denies feelings of cold. Eyes: The patient denies glaucoma, denies eye injury/surgery, wears glasses or contacts. Ear/Nose/Throat: The patient notes allergies, denies hayfever, denies ear infections, and denies bloody noses. Cardiovascular: The patient denies chest pain, notes heart disease, denies high blood pressure,denies cardiac stent, denies prior heart attack, denies irregular heart beat, denies high cholesterol, denies poor circulation, denies heart failure, other cardiac issues, denies claudication, denies coldfeet, denies peripheral arterial stent. Respiratory: The patient denies tuberculosis, denies pneumonia, denies frequent cough, denies pulmonary embolism, denies shortness of breath, and denies coughing up blood, Notes COPD Gastrointestinal: The patient denies difficulty swallowing, denies acid reflux, denies ulcers, denies vomiting, denies jaundice/hepatitis, notes gallbladder problems, denies black or tarry stools, denies hemorrhoids, denies bleeding from rectum, denies diverticulitis, denies constipation, denies diarrhea, denies loss of stool control, and notes hernias. Kidney/Bladder: The patient denies kidney stones, denies urine infections, and denies bloody urine. Skin: The patient denies a history of skin cancer, denies bleeding/changing moles, and denies a history of skin rash. Neurologic: The patient denies a history of epilepsy/convulsions, denies headaches, denies head/spinal injuries, and denies stroke/TIA. Psychiatric: The patient denies psychiatric medications, denies depression, and denies voices, denies substance abuse. Endocrine: The patient notes thyroid disorders, denies diabetes, and denies hormonal problems. Hematologic: The patient denies a history of bruising, denies bleeding, and denies anemia, denies blood clots. Infections: The patient denies a history of measles and mumps, denies rheumatic fever, and denies sexually transmitted diseases. Musculoskeletal: The patient notes back pain/injury, denies back problems, notes sciatica, denies knee/foot trouble, denies arthritis, or denies gout. When was patient's last Mammogram screening? N/A Last Colonoscopy: 2015 Zana Saleh LPN documented in this encounterOhiohealth Van W[facility]12-15-2023 Miscellaneous Notes* Telephone Encounter - Marely Begum Ma - 01/26/2023 12:19 PM EST See pt message as an update. Marely Begum Ma documented in this encounterOhiohealth Van W[facility]09-29-2023 History of Present illness Narrative* Minoo Middleton RT(R) - 11/10/2022 8:40 AM EDT Radiology Service Progress Note PATIENT NAME: Jayden Craig DATE OF SERVICE: November 10, 2022 TIME: 8:50 AM PATIENT IDENTITY VERIFICATION COMPLETED USING TWO (2) IDENTIFIERS: Name and Date of confirmedby patient verbally. FALL SCREENING: Has the patient had 2 falls in the last year or 1 fall with injury or currently using an Ambulatory Assistive Device (Walker, Cane, Wheelchair, Crutches, etc.)? No PATIENT GENDER DATA: Male PATIENT RELEVANT IMPLANT DATA REVIEWED: Not Applicable RADIOLOGY DEPARTMENT: General X-ray: Exam(s) Completed: GI/ Procedure(s): Esophogram with barium contrast PERIPHERAL IV DATA: Not applicable SIGNED BY: RT Aries(R) November 10, 2022 8:50 AM documented in this encounterOhiohealth Van Wert Hospital08-14-2023 Miscellaneous Notes* Telephone Encounter - Mike Lee APRN.CNP - 09/25/2022 9:15 AM EDT The following approved medication requests have been transmitted electronically. Requested Prescriptions Pending Prescriptions Disp Refills fluticasone-salmeterol HFA (ADVAIR) 115-21 mcg/actuation inhaler [Pharmacy Med Name: FLUTICASONE-SALMETEROL 115-21] 12 Each 5 Sig: INHALE 2 PUFFS INSTRUCTED TWICE DAILY. RINSE MOUTH AFTER USE. Mike Lee APRN.CNP * Telephone Encounter - Celena Spencer LPN - 09/22/2022 2:54 PM EDT Patient phones requesting refills as follows: Pharmacy comment: Alternative Requested:NEITHER BRAND OR GENERIC IS COVERED BY HIS INSURANCE. Requested Prescriptions Pending Prescriptions Disp Refills fluticasone-salmeterol HFA (ADVAIR) 115-21 mcg/actuation inhaler [Pharmacy Med Name: FLUTICASONE-SALMETEROL 115-21] 12 Each 5 Sig: INHALE 2 PUFFS INSTRUCTED TWICE DAILY. RINSE MOUTH AFTER USE. Please review and advise. Celena Spencer LPN documented in this encounterOhiohealth Van Wert [facility]07-20-2023 Miscellaneous Notes* Telephone Encounter - Jaja Mo I, RN - 08/31/2022 8:31 AM EDT [facility] Contact Center Inbound Phone Encounter DATE of SERVICE: 08/31/2022 TIME of SERVICE: 8:31 AM Status: [facility] Service/Provider: Thoracic Surgery Julián Boothe M.D. Reason for call: Incisions Contact information: [phone] Resolution: Reinforced education Comments: Aury calling in. Noticed drainage to right side incision. Pt d/c on 08/26. No fever, pain or blood. Just serous drainage that she has reinforced. Has not removed bandages, has only taken sponge baths. Reviewed AVS with . Pt ok to remove bandages, shower, keep area clean and dry. Will assess incisions and monitor for signs and symptoms of infection. Will call if any changes. Pt has f/u on 09/04. voiced understanding and will call back if needed. Jaja Mo RN Date of Resolution: 08/31/2022 Time of Resolution 8:31 AM documented in this encounterOhiohealth Van Wert Hospital07-12-2023 History of Present illness Narrative* Julián Boothe MD - 08/23/2022 3:16 PM EDT I have read and reviewed the documentation and agree. I wish to add the followingI wish to add the following findings which will be communicated back to the requesting physician. Julián Boothe MD [facility] STAFF PHYSICIAN NOTE OF PERSONAL INVOLVEMENT IN CARE IMPRESSION: Patient is a 80 year old male with an intra-thoracic stomach. He does not have any signs of obstruction. His only sx are mild GERD. Given the risk of volvulus. I have discussed a lap reduction and gastropexy. I also favor this approach due to his central obesity despite his BMI of 27. RBAT of bleeding, infection and recurrence discussed. He also has an incisional hernia by his umbilicus which will also be repaired PLAN: Lap reduction and gastropexy STAFF PHYSICIAN: Julián Boothe MD DATE OF SERVICE: August 23, 2022 TIME OF SERVICE: 3:17 PM * Julián Boothe MD - 08/23/2022 1:50 PM EDT CHART COPY DO NOT DISCARD . Patient here today for TCI visit. . Surgery Laparscopic hiatal hernia repair with gastropexy,and Repair of umbilical hernia scheduled for 08/24/2022. . Meds allergies reviewed. Latex Allergy: No Anticoag:MVI/Supplements-last dose 08/18/2022, 325mg Aspirin last dose 08/18/22 Medport: No Preoperative instructions; Clear liquid diet, You may continue clear liquids until 2 hours before check in on day of surgery, and Listerine after brushing teeth and Hibiclens Shower. Patient verbalized understanding of instructions. . Last clinic note 06/20/21 per Julián Boothe M.D. IMPRESSION: Patient is a 80 year old male with an intra-thoracic stomach. He does not have any signs of obstruction. His only sx are mild GERD. Given the risk of volvulus, I have discussed a reduction in gastropexy vs observation. He is amenable to lap reduction and gastropexy. Of note he has significant dysmotility on his manometry PLAN: TCI for a lap reduction and gastropexy in 6 months Echo EGD by me pre-op . Today's visit 08/23/22: EGD 08/23/2022 Impression: - Tortuous esophagus. - Large hiatal hernia. - No gross lesions in the entire examined duodenum. - No specimens collected. CXR: IMPRESSION: No acute radiographic abnormality . PFT: 06/20/2021 FEV1 Liters 2.19 1.54 2.31 106 DLCO mL/min/mmHg 21.7 13.7 14.6 67 6MW: na Cardiac Studies: Echo 08/23/2022 EK08/23/2022 Impression NORMAL SINUS RHYTHM NORMAL ECG Risk, benefits, and alternatives discussed per Julián Boothe M.D. H&P 08/23/2022 per Films CCT, A/P CCT, and CXR . Jen Nicholas RN PHYSICAL EXAM BP 138/73 Pulse 78 Temp (Src) 97.3 (Oral) Resp 14 Ht 5' 9 (1.75m) Wt 183 lb (83.0kg) SpO2 100% BMI 27.01 kg/(m^2). Constitutional: Well developed HEENT: PERRLA Resp: Clear Cardiovascular: Regular rate & rhythm GI: Soft Integumentary: Warm Musculoskeletal: No deformities Neurological/Psychiatric: Oriented to time, place & person Additional systems reviewed: No additional systems reviewed Julián Boothe MD documented in this encounterOhiohealth Van [facility]07-12-2023 History of Present illness Narrative* Kellen Rm MD - 08/23/2022 2:44 PM EDT Cardiothoracic Anesthesiology Preoperative Assessment Service Date: 08/23/2022 Service Time: 2:44 PM Primary Care Physician: Eloisa Espinal MD Subjective Patient Entered Data: Cardiothoracic Surgery Pre-Op Questionnaire 08/21/2022 Previous anesthesia problems No Family history anesthesia problems No Blood consent Yes Esophageal history Hiatal Hernia Implanted devices No History difficult airway No Airway surgery No Ongoing pain issues No Heparin intolerance No Daily alcohol use No Illicit drug use No Scheduled procedure: Laprascopic nicolette Surgeon: Tuan Scheduled date: 08/24/2022 HPI: 81m hx of escobedo's esophagus, HLD, asthma, CAD s/p CABG, hiatal hernia, esophageal stricture,here for above procedure. Patient presents today for pre-operative evaluation for the above surgery. Today we discussed the anesthetic plan, what to expect, and any questions or concerns the patient may have had. We additionally discussed perioperative medications and recommended they hold their lisinopril prior to their surgery but otherwise continue their medications as prescribed. Review no non-cardiac IEDs present esophageal disorder(s) - blood transfusion consented -. No resulted type & screen to review COVID-19 Immunization Status Overdue - COVID-19 VACCINE (6 - Pfizer series) Overdue since 04/11/2022 12/12/2021 Imm Admin: COVID-19 vaccine, age 12+ yr, bivalent (PFIZER-BIONTECH) 07/06/2021 Imm Admin: COVID-19 original vaccine, age 12+ yr, monovalent (PFIZER- BIONTECH - WOO TOP) 11/22/2020 Imm Admin: COVID-19 original vaccine, age 12+ yr, monovalent (PFIZER- BIONTECH - PURPLE TOP) Only the first 3 history entries have been loaded, but more history exists. 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 Ddd (Degenerative Disc Disease), Lumbar Spondylosis of Lumbar Region Without Myelopathy Or Radiculopathy Atherosclerotic Heart Disease of [place] Coronary Artery With Other Forms of Angina Pectoris (Hcc) Coronary Artery Disease Involving Autologous Artery Coronary Bypass Graft With Unstable Angina Pectoris (Hcc) Esophageal Stricture Gastroesophageal Reflux Disease With Esophagitis Paroxysmal Atrial Fibrillation (Hcc) Essential Hypertension Chronic Anticoagulation Hx of Cabg S/P Cholecystectomy Rash Other Disorders of Arteries, Arterioles and Capillaries in Diseases Classified Elsewhere (Hcc) Copd With Exacerbation (Hcc) 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 VASQUES in situ mammary end to side mid LAD, Vein graft ascending aorta end to side RCA, Vein graft ascending aorta end to side obtuse marginal 1 Hyperlipidemia Peptic ulcer, unspecified site, unspecified as acute or chronic, without mention of hemorrhage, perforation, or obstruction 2004 Unspecified hypothyroidism 1989 PAST SURGICAL HISTORY Procedure Laterality Date APPENDECTOMY COLONOSCOPY FLX DX W/COLLJ SPEC WHEN PFRMD 06/28/2004 Colonoscopy COLONOSCOPY FLX DX W/COLLJ SPEC WHEN PFRMD 08/06/2015 Colonoscopy CORONARY ARTERY BYPASS GRAFT HX 07/24/2018 VASQUES in situ mammary end to side mid LAD, Vein graft ascending aorta end to side RCA, Vein graft ascending aorta end to side obtuse marginal 1. EGD N/A 06/29/2020 Dr. Keating EGD 05/31/2021 EGD TRANSORAL BIOPSY SINGLE/MULTIPLE 08/30/2009 EGD TRANSORAL BIOPSY SINGLE/MULTIPLE 08/23/2011 repeat in 2 years ESOPHAGOGASTRODUODENOSCOPY TRANSORAL DIAGNOSTIC 10/06/1998 EGD ESOPHAGOGASTRODUODENOSCOPY TRANSORAL DIAGNOSTIC 01/29/2000 EGD ESOPHAGOGASTRODUODENOSCOPY TRANSORAL DIAGNOSTIC 08/04/2003 EGD ESOPHAGOGASTRODUODENOSCOPY TRANSORAL DIAGNOSTIC 08/29/2007 EGD ESOPHAGOGASTRODUODENOSCOPY TRANSORAL DIAGNOSTIC 08/28/2013 EGD ESOPHAGOGASTRODUODENOSCOPY TRANSORAL DIAGNOSTIC 10/08/2017 EGD HEART SURGERY HX LAPAROSCOPIC CHOLECYSTECTOMY 12/15/2018 PAST SURGICAL HISTORY OF N/A 04/25/2017 Back surgery done at [facility], [address] [place] [address] and cleaned up arthritis FAMILY HISTORY Problem Relation Age of Onset Emphysema Father Emphysema Mother other (no cardiac hx per pt) Other Social History Tobacco Use Smoking status: Former Packs/day: 0.50 Years: 27.00 Total pack years: 13.50 Types: Cigarettes Quit date: 1981 Years since quittin.5 Smokeless tobacco: Never Tobacco comments: occasional former pipe smoker Vaping Use Vaping Use: Never used Substance Use Topics Alcohol use: Yes Alcohol/week: 5.0 standard drinks of alcohol Types: 2 Cans of Beer (12oz) per week Comment: 2-3 cans of beer per week Drug use: No Prior to Admission medications as of 08/23/22 1403 Medication Sig Last Dose Taking metoprolol tartrate, short acting, (LOPRESSOR) 25 mg tablet Take 1 tablet by mouth twice daily. levothyroxine (LEVOXYL) 200 mcg tablet Take 1 tablet by mouth once daily. Take on empty stomach. For Thyroid. lisinopril (ZESTRIL) 10 mg tablet Take 1 tablet by mouth once daily. simvastatin (ZOCOR) 80 mg tablet Take 1 tablet by mouth daily at bedtime. pantoprazole DR (PROTONIX) 40 mg tablet TAKE 1 TABLET BY MOUTH TWICE DAILY. TAKE ON EMPTY STOMACH, 1/2 HR BEFORE MEAL. fluticasone (FLONASE) 50 mcg/actuation nasal spray Use 2 Sprays in each nostril once daily. Rinse mouth after use. aspirin, enteric coated (ASPIRIN, ENTERIC COATED) 325 mg EC tablet Take 1 tablet by mouth once daily. fluticasone-salmeterol HFA (ADVAIR HFA) 115-21 mcg/actuation inhaler Inhale 2 Puffs as instructed twice daily. Rinse mouth after use. magnesium oxide (MAG-OX) 400 mg (241.3 mg magnesium) tablet Take 1 tablet by mouth once daily. senna-docusate (SENNA-S) 8.6-50 mg per tablet Take 1 tablet by mouth once daily. acetaminophen (TYLENOL) 325 mg tablet Take 2 tablets by mouth every 4 hours as needed. THERAPEUTIC MULTIVITAMIN TAB one tab daily Medication Comments documented by Yas Garcia, PT on 12/26/2018 at 1609. 12/25/18 The medications are managed by this patient by: SPOUSE Ila Cathi, PharmD severe interactions reported to [facility] 12/2607/30/18 The medications are managed by this patient by: PATIENT Elsa Gallagher, CourtneyD ALLERGIES Allergen Reactions Lipitor [Atorvastat* Intolerance myalgias Omnicef [Cefdinir] Diarrhea Zithromax [Azithrom* Objective Pain Assessment: Vitals: There were no vitals taken for this visit. Diagnostic tests reviewed for today's visit: Lab Value Units Date High Low HB 12.2 g/dL 08/23/2022 17.0 13.0 HCT 36.8 % 08/23/2022 51.0 39.0 WBC 7.68 k/uL 08/23/2022 11.00 3.70 PLT 185 k/uL 08/23/2022 400 150 NA 129 mmol/L 08/23/2022 144 136 K 4.6 mmol/L 08/23/2022 5.1 3.7 GLUC 129 mg/dL 08/23/2022 99 74 BUN 12 mg/dL 08/23/2022 24 9 CREAT 0.80 mg/dL 08/23/2022 1.22 0.73 PTSEC 10.9 sec 08/23/2022 13.0 9.7 INR 1.1 no uni* 08/23/2022 1.3 0.9 APTT 27.4 sec 08/23/2022 32.4 23.0 ALT 22 U/L 08/23/2022 54 10 AST 30 U/L 08/23/2022 40 14 TBILI 0.9 mg/dL 08/23/2022 1.3 0.2 TSH 2.110 mIU/L 07/04/2022 4.200 0.270 Lab Value Units Date High Low HCGQT No results within date range. UHCG No results within date range. HCG, BODY* No results within date range. Lab Value Units Date High Low ABORHD No results within date range. ABSCREEN No results within date range. Hemoglobin A1C (%) Date Value 10/31/2019 5.8 Recent Results (from the past 8760 hour(s)) ECHO Collection Time: 08/23/22 12:07 PM Impression CONCLUSIONS: - Exam indication: Hernia pre-op - The left ventricle is normal in size. Left ventricular systolic function is normal. EF = 57 5% (2D biplane) - The right ventricle is normal in size. Right ventricular systolic function is normal. - Trivial-1+ MR. - 1+ TR. - Estimated right ventricular systolic pressure is 35 mmHg consistent with normal pulmonary artery pressures. Estimated right atrial pressure is 3 mmHg based on IVC assessment. - Exam was compared with the prior echocardiographic exam performed on 08/27/2018. Overall similar findings. * * * Final * * * XR CHEST 2V FRONTAL/LAT Collection Time: 08/23/22 7:29 AM Impression IMPRESSION: No acute radiographic abnormality. Data Collection Associate: PSCB Transcribe Date/Time: Aug 23 2022 8:24A Dictated by : SERGIO ROBERTS MD This examination was interpreted and the report reviewed and electronically signed by: SERGIO ROBERTS MD on Aug 23 2022 8:44AM EST ECG COMPLETE Collection Time: 08/23/22 7:20 AM Impression NORMAL SINUS RHYTHM NORMAL ECG Assessment No problem-specific Assessment & Plan notes found for this encounter. ANESTHESIA FINDINGS: Intubation History: No history of difficult intubation Significant Anesthesia Considerations: Airway History: No history of difficult airway Prepared for Surgery: optimally prepared for surgery, pending day of surgery. The Following Tests/Procedures Have Been Initiated: Orders Placed This Encounter mupirocin (BACTROBAN) 2 % ointment Sig: Apply a small amount in each nostril using a cotton swab twice the day before surgery and oncethe morning of surgery. Dispense: 22 g Refill: 0 Order Comments: Supply patient with Q-tips and instruction sheet ASA Class: 4 Planned Anesthetic: general I - PHYSICAL EVALUATION AIRWAY Patient intubated: No. Tracheostomy tube not present Mallampati: III. TM distance: >3 FB. Neck ROM: limited extension. Mouth opening: adequate. Short neck: no. Thick neck: no DENTAL Dental findings: teeth intact. II - ANESTHESIA PLAN ASA Score: 4 Anesthetic Plan: general Airway type: ETT Beta [place] Monitoring Plan Post Procedure Analgesic Plan Informed Consent Anesthetic risks, benefits, alternatives, personnel and consent discussed: yes. Patient / Responsible Green Party agrees to proceed: yes Patient / Surrogate agrees to blood products: Yes Instructions Given to Patient: Instructions located in the after visit summary. Patient given verbal and written preop instructions and voices comprehension and compliance. Signature: Kellen Rm MD Patient Name: Jayden Craig Date: August 23, 2022 Time: 2:44 PM Pager/Contact #: documented in this encounterOhiohealth Van Wert Hospital07-12-2023 Nurse Note* Tremayne Mondragon RN - 08/23/2022 10:58 AM EDT AMBULATORY PATIENT EDUCATION NOTE TOPIC: GI PROCEDURES: Esophagogastroduodenoscopy(EGD) for control of bleeding,dilation(any means),imaging,tube placement READINESS TO LEARN INSTRUCTION PROVIDED TO: Patient and family member COGNITIVE ABILITY: Alert and oriented PTED MOTIVATION TO LEARN: Eager FAMILY SUPPORT: High - Very involved in pt care IPATIENT LEARNS BEST BY: Individual Instruction FACTORS AFFECTING LEARNING: None PHYSICAL LIMITATIONS AFFECTING LEARNING: None LEARNING RESPONSE METHOD OF INSTRUCTION: Individual instruction PATIENT / FAMILY RESPONSE: Verbalizes understanding of: WORSENING CONDITION- Signs and symptoms of aworsening condition that warrant a call to the physician FOLLOW-UP PLAN: Complete - No need for follow-up SUPPLEMENTAL MATERIAL: Procedure Discharge Instructions REFERRAL (RECOMMENDATION): None Electronically Signed By: Tremayne Mondragon RN documented in this encounterOhiohealth Van Wert [facility]07-05-2023 Miscellaneous Notes* Telephone Encounter - Arminda Norman RN - 08/16/2022 4:45 PM EDT Attempted to reach the patient at the contact number that they provided [phone] (home) . Unable to speak with patient so without identifying the patient the following information was left on their voice mail: Date of procedure, location and report time A message was left informing the patient/patient credit resolution representative they must have a responsible adult accompany them to their procedure; and remain in the endoscopy area until they are discharged. Failure to have a responsible adult accompany the patient to their procedure appointment prevents the useof sedation or anesthesia for their procedure; and can result in cancellation of the procedure NPO instructions were reviewed. Instructions to contact their primary care provider regarding their medications and which medications to stop in preparation for their procedure Instructions to completely read and follow the written instructions that they recieved regarding their procedure. Number to call with questions or concerns [phone] Number to call to cancel their procedure [phone] Armnida Norman RN documented in this encounterOhiohealth Van Wert Hospital06-22-2023 Miscellaneous Notes* Telephone Encounter - Gisel Goldstein RN - 08/03/2022 11:38 AM EDT reviewed all testing All questions answered. Gisel Goldstein RN, BSN, [facility] Thoracic Nurse Practice Mgr documented in this encounterOhiohealth Van Wert Hospital05-12-2023 History of Present illness Narrative* Regina Oswald MD - 06/23/2022 4:32 PM EDT Jayden Balderas Kiara 1940 REFERRING PHYSICIAN: Eloisa Espinal MD CHIEF COMPLAINT: Review CT results HPI: The patient is a 81 year old male presents with ventral hernia with incarcerated small intestine. and also known intrathoracic stomach. He has noted discomfort from the ventral hernia for about three months. Patient denies obstructed GI/ symptoms He was scheduled for surgery for intrathoracic gastric surgery by Dr. Boothe but he postponed it. 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 VASQUES in situ mammary end to side mid LAD, Vein graft ascending aorta end to side RCA, Vein graft ascending aorta end to side obtuse marginal 1 Hyperlipidemia Peptic ulcer, unspecified site, unspecified as acute or chronic, without mention of hemorrhage, perforation, or obstruction 2004 Unspecified hypothyroidism 1989 PAST SURGICAL HISTORY Procedure Laterality Date APPENDECTOMY COLONOSCOPY FLX DX W/COLLJ SPEC WHEN PFRMD 06/28/2004 Colonoscopy COLONOSCOPY FLX DX W/COLLJ SPEC WHEN PFRMD 08/06/2015 Colonoscopy CORONARY ARTERY BYPASS GRAFT HX 07/24/2018 VASQUES in situ mammary end to side mid LAD, Vein graft ascending aorta end to side RCA, Vein graft ascending aorta end to side obtuse marginal 1. EGD N/A 06/29/2020 Dr. Keating EGD 05/31/2021 EGD TRANSORAL BIOPSY SINGLE/MULTIPLE 08/30/2009 EGD TRANSORAL BIOPSY SINGLE/MULTIPLE 08/23/2011 repeat in 2 years ESOPHAGOGASTRODUODENOSCOPY TRANSORAL DIAGNOSTIC 10/06/1998 EGD ESOPHAGOGASTRODUODENOSCOPY TRANSORAL DIAGNOSTIC 01/29/2000 EGD ESOPHAGOGASTRODUODENOSCOPY TRANSORAL DIAGNOSTIC 08/04/2003 EGD ESOPHAGOGASTRODUODENOSCOPY TRANSORAL DIAGNOSTIC 08/29/2007 EGD ESOPHAGOGASTRODUODENOSCOPY TRANSORAL DIAGNOSTIC 08/28/2013 EGD ESOPHAGOGASTRODUODENOSCOPY TRANSORAL DIAGNOSTIC 10/08/2017 EGD HEART SURGERY HX LAPAROSCOPIC CHOLECYSTECTOMY 12/15/2018 PAST SURGICAL HISTORY OF N/A 04/25/2017 Back surgery done at [facility], [address] [place] [address] and cleaned up arthritis Current Outpatient Medications Medication Sig metoprolol tartrate, short acting, (LOPRESSOR) 25 mg tablet Take 1 tablet by mouth twice daily. levothyroxine (LEVOXYL) 200 mcg tablet Take 1 tablet by mouth once daily. Take on empty stomach. For Thyroid. lisinopril (ZESTRIL) 10 mg tablet Take 1 tablet by mouth once daily. simvastatin (ZOCOR) 80 mg tablet Take 1 tablet by mouth daily at bedtime. pantoprazole DR (PROTONIX) 40 mg tablet TAKE 1 TABLET BY MOUTH TWICE DAILY. TAKE ON EMPTY STOMACH, 1/2 HR BEFORE MEAL. fluticasone (FLONASE) 50 mcg/actuation nasal spray Use 2 Sprays in each nostril once daily. Rinse mouth after use. aspirin, enteric coated (ASPIRIN, ENTERIC COATED) 325 mg EC tablet Take 1 tablet by mouth once daily. fluticasone-salmeterol HFA (ADVAIR HFA) 115-21 mcg/actuation inhaler Inhale 2 Puffs as instructed twice daily. Rinse mouth after use. magnesium oxide (MAG-OX) 400 mg (241.3 mg magnesium) tablet Take 1 tablet by mouth once daily. senna-docusate (SENNA-S) 8.6-50 mg per tablet Take 1 tablet by mouth once daily. acetaminophen (TYLENOL) 325 mg tablet Take 2 tablets by mouth every 4 hours as needed. THERAPEUTIC MULTIVITAMIN TAB one tab daily ALLERGIES: Lipitor [Atorvastatin Calcium], Omnicef [Cefdinir], and Zithromax [Azithromycin] PERSONAL HISTORY: Social History Tobacco Use Smoking status: Former Packs/day: 0.50 Years: 27.00 Pack years: 13.50 Types: Cigarettes Quit date: 1981 Years since quittin.3 Smokeless tobacco: Never Tobacco comments: occasional former pipe smoker Vaping Use Vaping Use: Never used Substance Use Topics Alcohol use: Yes Alcohol/week: 5.0 standard drinks Types: 2 Cans of Beer (12oz) per week Comment: 2-3 cans of beer per week Drug use: No FAMILY HISTORY Problem Relation Age of Onset Emphysema Father Emphysema Mother other (no cardiac hx per pt) Other REVIEW OF SYMPTOMS: The review of systems data was entered by the nurse and reviewed by me There are no exam notes on file for this visit. PHYSICAL EXAMINATION: General: The patient is 81 year old male, well nourished, well hydrated in no acute distress. The patient is oriented to time, place, and person. VITALS: Blood pressure 128/60, pulse 105, temperature 36.5 C (97.7 F), temperature source Temporal,weight 85.3 kg (188 lb), SpO2 96 %. Body mass index is 27.75 kg/m . Head: Normal cephalic, atraumatic Eyes: pupils are equally round, sclera are clear/anicteric, wearing glasses Neck is supple with no tracheal deviation Respiratory: Normal respiratory excursion and pattern. Abdominal exam: benign. Ventral hernia - periumbilical - partially reducible Extremities: no clubbing, cyanosis or edema. Neuro: non focal Psych: normal mood Assessment IMPRESSION: ventral hernia with incarcerated bowel but no obstruction, known intrathoracic stomach PLAN: I have discussed the above with the patient and his who is present with him. I had seen patient in March of this year and had recommended that patient reach out to Dr. Boothe and recommended that given his multiple medical problems, he should have surgery at main [facility]. I have personally called Dr. Boothe's office and spoke to Gisel ([phone]). She states that she will contact the patient next week to schedule him for surgery. The patient acknowledges the above. I have answered all questions to the patient s satisfaction and the patient has no further questions. I have confirmed and edited as necessary, the PFSH and ROS obtained by others. Consultation requested by Dr. Eloisa Espinal for an opinion regarding patient's ventral hernia andintrathoracic stomach. My final recommendations will be communicated back to the requesting physician by way of shared Medical record or letter to requesting physician via US mail. . Diagnoses: (K42.9) Periumbilical hernia Return to Clinic: The patient is instructed to follow-up with me as per needed. I spent a total of 21 minutes on the date of the service which included preparing to see the patient with review of any pertinent laboratory studies/radiological imaging/medical records, oqib-mk-cqfczsvruxy care, obtaining oral medical history from the patient in this encounter, counseling and educating the patient/family/caregiver, and ordering and/or scheduling of medications/tests/procedures,and completing appropriate medical documentation. Regina Oswald MD documented in this encounterOhiohealth Van [facility]05-11-2023 Miscellaneous Notes* Telephone Encounter - Marely Begum Ma - 06/22/2022 11:39 AM EDT Last OV: 06/09/22 Next OV: 07/07/22 Metoprolol - 06/23/21 #180 w/3 Levothyroxine - 06/23/21 #90 w/3. Update pt via [facility] once complete. Marely Begum Ma documented in this encounterOhiohealth Van Wert Hospital05-08-2023 History of Present illness Narrative* Ginger Cook RT(R) - 06/19/2022 2:20 PM EDT Radiology Service Progress Note PATIENT NAME: Jayden Craig DATE OF SERVICE: June 19, 2022 TIME: 2:43 PM PATIENT IDENTITY VERIFICATION COMPLETED USING TWO (2) IDENTIFIERS: Name and Date of confirmedby patient verbally. FALL SCREENING: Has the patient had 2 falls in the last year or 1 fall with injury or currently using an Ambulatory Assistive Device (Walker, Cane, Wheelchair, Crutches, etc.)? No PATIENT GENDER DATA: Male PATIENT RELEVANT IMPLANT DATA REVIEWED: Yes RADIOLOGY DEPARTMENT: CT; Exam(s) Completed: Abdomen/Pelvis PERIPHERAL IV DATA: Not applicable SIGNED BY: RT Linda(R) June 19, 2022 2:43 PM documented in this encounterOhiohealth Van Wert Hospital04-28-2023 History of Present illness Narrative* Eloisa Espinal MD - 06/09/2022 10:00 AM EDT Chief Complaint Patient presents with: Follow Up: Abdomen pain HPI Jayden Craig is a 81 year old male who presents here today for follow up. HM: depression screening; denies feeling depressed or hopeless; reviewed screen with pt. Has an advanced directive. Pt here to follow up on abdominal pain and diarrhea. No longer having diarrhea issues but has 3 BM a day the past 1-2 months, he states that is a lot for him. He says stool looks normal, no blood in stool. Pt had EGD done in April for Escobedo's Esophagus. States his hiatal hernia is more enlarged since his last scope. Taking Protonix 40 mg 1 pill BID. Has not had a colonoscopy since June 2004. He has been doing occ IFOBT. Pt states his pain is mostly a discomfort, feels tightness to the right low abdomen. Discomfort may be a little worse with BM or urinating but it doesn't last long. Eating does not affect it. He has been taking Tylenol for the discomfort. Physical activity does seem to makeit worse. States he has been dealing with this now for about a year. Saw Dr. Oswald in May 2021. Hehas had the abdomen evaluated and no one wants to do anything for it at this time. He feels like he has some swelling to the RLQ, thinks it is worsening. Recent EGD for follow up Escobedo's; known large hiatal hernia, elevated right diaphragm Past medical history, appointments, medications, allergies reviewed. Previous Medical History 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 VASQUES in situ mammary end to side mid LAD, Vein graft ascending aorta end to side RCA, Vein graft ascending aorta end to side obtuse marginal 1 Hyperlipidemia Peptic ulcer, unspecified site, unspecified as acute or chronic, without mention of hemorrhage, perforation, or obstruction 2004 Unspecified hypothyroidism 1989 Previous Surgical History PAST SURGICAL HISTORY Procedure Laterality Date APPENDECTOMY COLONOSCOPY FLX DX W/COLLJ SPEC WHEN PFRMD 06/28/2004 Colonoscopy COLONOSCOPY FLX DX W/COLLJ SPEC WHEN PFRMD 08/06/2015 Colonoscopy CORONARY ARTERY BYPASS GRAFT HX 07/24/2018 VASQUES in situ mammary end to side mid LAD, Vein graft ascending aorta end to side RCA, Vein graft ascending aorta end to side obtuse marginal 1. EGD N/A 06/29/2020 Dr. Keating EGD 05/31/2021 EGD TRANSORAL BIOPSY SINGLE/MULTIPLE 08/30/2009 EGD TRANSORAL BIOPSY SINGLE/MULTIPLE 08/23/2011 repeat in 2 years ESOPHAGOGASTRODUODENOSCOPY TRANSORAL DIAGNOSTIC 10/06/1998 EGD ESOPHAGOGASTRODUODENOSCOPY TRANSORAL DIAGNOSTIC 01/29/2000 EGD ESOPHAGOGASTRODUODENOSCOPY TRANSORAL DIAGNOSTIC 08/04/2003 EGD ESOPHAGOGASTRODUODENOSCOPY TRANSORAL DIAGNOSTIC 08/29/2007 EGD ESOPHAGOGASTRODUODENOSCOPY TRANSORAL DIAGNOSTIC 08/28/2013 EGD ESOPHAGOGASTRODUODENOSCOPY TRANSORAL DIAGNOSTIC 10/08/2017 EGD HEART SURGERY HX LAPAROSCOPIC CHOLECYSTECTOMY 12/15/2018 PAST SURGICAL HISTORY OF N/A 04/25/2017 Back surgery done at [facility], [address] [place] [address] and cleaned up arthritis Family History FAMILY HISTORY Problem Relation Age of Onset Emphysema Father Emphysema Mother other (no cardiac hx per pt) Other Patient Allergies ALLERGIES Allergen Reactions Lipitor [Atorvastat* Intolerance myalgias Omnicef [Cefdinir] Diarrhea Zithromax [Azithrom* Current Medications Current Outpatient Medications on File Prior to Visit Medication Sig lisinopril (ZESTRIL) 10 mg tablet Take 1 tablet by mouth once daily. simvastatin (ZOCOR) 80 mg tablet Take 1 tablet by mouth daily at bedtime. pantoprazole DR (PROTONIX) 40 mg tablet TAKE 1 TABLET BY MOUTH TWICE DAILY. TAKE ON EMPTY STOMACH, 1/2 HR BEFORE MEAL. fluticasone (FLONASE) 50 mcg/actuation nasal spray Use 2 Sprays in each nostril once daily. Rinse mouth after use. aspirin, enteric coated (ASPIRIN, ENTERIC COATED) 325 mg EC tablet Take 1 tablet by mouth once daily. fluticasone-salmeterol HFA (ADVAIR HFA) 115-21 mcg/actuation inhaler Inhale 2 Puffs as instructed twice daily. Rinse mouth after use. metoprolol tartrate, short acting, (LOPRESSOR) 25 mg tablet Take 1 tablet by mouth twice daily. levothyroxine (LEVOXYL) 200 mcg tablet Take 1 tablet by mouth once daily. Take on empty stomach. For Thyroid. magnesium oxide (MAG-OX) 400 mg (241.3 mg magnesium) tablet Take 1 tablet by mouth once daily. senna-docusate (SENNA-S) 8.6-50 mg per tablet Take 1 tablet by mouth once daily. acetaminophen (TYLENOL) 325 mg tablet Take 2 tablets by mouth every 4 hours as needed. THERAPEUTIC MULTIVITAMIN TAB one tab daily No current facility-administered medications on file prior to visit. Social History Social History Tobacco Use Smoking status: Former Packs/day: 0.50 Years: 27.00 Pack years: 13.50 Types: Cigarettes Quit date: 1981 Years since quittin.3 Smokeless tobacco: Never Tobacco comments: occasional former pipe smoker Vaping Use Vaping Use: Never used Substance Use Topics Alcohol use: Yes Alcohol/week: 5.0 standard drinks Types: 2 Cans of Beer (12oz) per week Comment: 2-3 cans of beer per week Drug use: No EXAM: BP 120/78 Pulse 90 Resp 16 Wt 85.6 kg (188 lb 11.2 oz) BMI 27.85 kg/m General Appearance: Well appearing, alert, in no acute distress, well-hydrated, well nourished. andOverweight. Lungs: Lungs clear to auscultation. No wheezing, rhonchi, rales.. Heart: RRR without murmur, gallop, or rubs. No ectopy. Abdomen: Abdomen soft. Bowel sounds normal. Fullness and tenderness right side abd, no discrete masses palpated Health Maintenance List BP CONTROLLED (<130/80) Never done SHINGRIX VACCINE(1 of 2) Never done COLORECTAL CANCER SCREENING due on 12/27/2017 ADVANCE DIRECTIVE DISCUSSION Never done DEPRESSION ASSESSMENT due on 02/12/2022 DTAP,TDAP,TD(3 - Td or Tdap) due on 12/29/2022 LDL CHOLESTEROL due on 12/26/2022 ANNUAL PCP TEAM CHRONIC DISEASE VISIT due on 12/29/2022 DIABETES SCREEN due on 12/26/2024 SPIROMETRY Completed INFLUENZA Completed COVID-19 VACCINE Completed PNEUMOCOCCAL: 65+ Completed Data reviewed None ASSESSMENT/PLAN: 1. RLQ abdominal pain - ICD9: 789.03, ICD10: R10.31 (primary diagnosis) Will get CT to evaluate pain and fullness - CT ABD/PEL WO IVCON - ENTERIC CONTRAST (RADIOLOGY PROCEDURE) 2. Right upper quadrant abdominal mass - ICD9: 789.31, ICD10: R19.01 - CT ABD/PEL WO IVCON - ENTERIC CONTRAST (RADIOLOGY PROCEDURE) 3. Change in bowel function - ICD9: 787.99, ICD10: R19.8 - CT ABD/PEL WO IVCON - ENTERIC CONTRAST (RADIOLOGY PROCEDURE) Notify of CT results Follow up in June as previously scheduled I agree with the Chief Complaint, ROS, and Past Histories independently gathered by the clinical family readiness support assistant and the remaining scribed note accurately describes my personal service to the patient. Medical Decision Making: Problems: Moderate: New problem with uncertain prognosis Data: Unique test(s) ordered: 1 Risk: Low: Low risk from testing/treatment Medical Decision Making Level: 3 - Low Eloisa Espinal MD The documentation for this note was completed by Elza Wall Ma acting as scribe for Eloisa Espinal MD. June 09, 2022 10:06 AM. Elza Wall Ma documented in this encounterOhiohealth Van Wert [facility]04-27-2023 History of Present illness Narrative* Ivy Rizvi MA - 06/08/2022 9:33 AM EDT POPULATION HEALTH NAVIGATION OUTREACH Action/I [facility] InPlaceHART MESSAGE SENT HCC GAP I48.0 - Paroxysmal atrial fibrillation (HCC) - [id number] Last Billed 12/29/2021 CARE GAPS ANNUAL MEDICARE WELLNESS EXAM BP CONTROLLED (<130/80) Never done COLORECTAL CANCER SCREENING due on 12/27/2017 ADVANCE DIRECTIVE DISCUSSION Never done Patient Identified by Name and : NO Outreach Outcome/Action Unable to reach patient: Left message THE NOCKLISThart message sent Did you use a PCP flex slot to schedule this appointment? N/A Reason for Outreach HCC or suspected condition Payer: Payor: MEDICARE / Plan: MEDICARE A AND B / Product Type: Medicare / Care Gap Reviewed:: Annual Wellness visit Controlling Blood Pressure Colorectal Cancer Screening Reminder: Reminder note to check Health Maintenance for items below Health Maintenance items due: BP CONTROLLED (<130/80) Never done SHINGRIX VACCINE(1 of 2) Never done COLORECTAL CANCER SCREENING due on 12/27/2017 ADVANCE DIRECTIVE DISCUSSION Never done DEPRESSION ASSESSMENT due on 02/12/2022 Navigation Signature: Ivy Rizvi MA June 08, 2022 9:33 AM documented in this encounterOhiohealth Van Wert [facility]04-11-2023 Miscellaneous Notes* Telephone Encounter - Mike Lee APRN.CNP - 05/23/2022 10:21 AM EDT The following approved medication requests have been transmitted electronically. Requested Prescriptions Pending Prescriptions Disp Refills lisinopril (ZESTRIL) 10 mg tablet 90 tablet 3 Sig: Take 1 tablet by mouth once daily. simvastatin (ZOCOR) 80 mg tablet 90 tablet 3 Sig: Take 1 tablet by mouth daily at bedtime. Mike Lee APRN.CNP * Telephone Encounter - Aixa Aguillon - 05/23/2022 9:31 AM EDT Patient has been identified by name and date of : Yes Requested Prescriptions Pending Prescriptions Disp Refills lisinopril (ZESTRIL) 10 mg tablet 90 tablet 3 Sig: Take 1 tablet by mouth once daily. simvastatin (ZOCOR) 80 mg tablet 90 tablet 3 Sig: Take 1 tablet by mouth daily at bedtime. RX INSTRUCTIONS: Patient aware RX will be sent to pharmacy. No need to notify patient. Aixa Aguillon documented in this encounterOhiohealth Van W[facility]03-14-2023 Miscellaneous Notes* Telephone Encounter - Karly Esteban - 04/25/2022 2:38 PM EDT Reason for call: Mr Craig called and he would like to schedule an appointment with DR Tuan Peterson and cell number [phone] Diagnosis Non Dysplastic Escobedo's Esophagus Angel Brandt documented in this encounterOhiohealth Van W[facility]03-09-2023 Miscellaneous Notes* Telephone Encounter - Charlene Cunningham RN - 04/20/2022 10:53 AM EST Images from the original note were not included. Thoracic Surgery Consultation - review of records for appointment scheduling Received medical records from the office of Omkar Denise [facility] [id number] Patient is being referred to Julián Boothe for Non Dysplastic Escobedo's Esophagus Pathology: 04/18 egd Component FINAL DIAGNOSIS A-F. Esophagus, at 33, 31, 30, 28, 26, 24 cm, biopsy: - Escobedo's esophagus, negative for dysplasia. Procedures: 04/18/2022 EGD Impression: - Esophageal mucosal changes classified as Escobedo's stage C10-M10 per [place] criteria. Biopsied. - 7 cm hiatal hernia. - No gross lesions in the stomach. - No gross lesions in the duodenum. Imaging CT (chest) 06/10/21 1. Unchanged large hiatus hernia. 2. Stable scattered benign lung nodules. No new consolidations or enlarged lymph nodes in the thorax. Cardiopulmonary Testing . PFT's/Six: 06/2021 Ref LLN Pre Pre Post Post Post Tamara % Ref Tamara % Ref % Chg FVC Liters 3.11 2.34 3.10 100 FEV1 Liters 2.19 1.54 2.31 106 FEV1/FVC % 72 62 74 DHW42-50% L/sec 1.52 0.19 1.74 114 Diffusing Capacity Ref LLN Pre Pre Post Post Post Tamara % Ref Tamara % Ref % Chg DLCO mL/min/mmHg 21.7 13.7 14.6 67 DL Adj mL/min/mmHg 21.7 13.7 14.6 67 DLCO/VA mL/min/mHg/L 4.04 2.84 3.43 85 Cardiac: 09/2021 Office Notes/Consults last OPD visit with dr boothe 06/20/2021 IMPRESSION: Patient is a 80 year old male with an intra-thoracic stomach. He does not have any signs of obstruction. His only sx are mild GERD. Given the risk of volvulus, I have discussed a reduction in gastropexy vs observation. He is amenable to lap reduction and gastropexy. Of note he has significant dysmotility on his manometry PLAN: TCI for a lap reduction and gastropexy in 6 months Echo EGD by me pre-op History of: FAMILY HISTORY Problem Relation Age of Onset Emphysema Father Emphysema Mother other (no cardiac hx per pt) Other 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 VASQUES in situ mammary end to side mid LAD, Vein graft ascending aorta end to side RCA, Vein graft ascending aorta end to side obtuse marginal 1 Hyperlipidemia Peptic ulcer, unspecified site, unspecified as acute or chronic, without mention of hemorrhage, perforation, or obstruction 2004 Unspecified hypothyroidism 1989 PAST SURGICAL HISTORY Procedure Laterality Date APPENDECTOMY COLONOSCOPY FLX DX W/COLLJ SPEC WHEN PFRMD 06/28/2004 Colonoscopy COLONOSCOPY FLX DX W/COLLJ SPEC WHEN PFRMD 08/06/2015 Colonoscopy CORONARY ARTERY BYPASS GRAFT HX 07/24/2018 VASQUES in situ mammary end to side mid LAD, Vein graft ascending aorta end to side RCA, Vein graft ascending aorta end to side obtuse marginal 1. EGD N/A 06/29/2020 Dr. Keating EGD 05/31/2021 EGD TRANSORAL BIOPSY SINGLE/MULTIPLE 08/30/2009 EGD TRANSORAL BIOPSY SINGLE/MULTIPLE 08/23/2011 repeat in 2 years ESOPHAGOGASTRODUODENOSCOPY TRANSORAL DIAGNOSTIC 10/06/1998 EGD ESOPHAGOGASTRODUODENOSCOPY TRANSORAL DIAGNOSTIC 01/29/2000 EGD ESOPHAGOGASTRODUODENOSCOPY TRANSORAL DIAGNOSTIC 08/04/2003 EGD ESOPHAGOGASTRODUODENOSCOPY TRANSORAL DIAGNOSTIC 08/29/2007 EGD ESOPHAGOGASTRODUODENOSCOPY TRANSORAL DIAGNOSTIC 08/28/2013 EGD ESOPHAGOGASTRODUODENOSCOPY TRANSORAL DIAGNOSTIC 10/08/2017 EGD HEART SURGERY HX LAPAROSCOPIC CHOLECYSTECTOMY 12/15/2018 PAST SURGICAL HISTORY OF N/A 04/25/2017 Back surgery done at [address] and cleaned up arthritis Social History Tobacco Use Smoking status: Former Packs/day: 0.50 Years: 27.00 Pack years: 13.50 Types: Cigarettes Quit date: 1982 Years since quittin.2 Smokeless tobacco: Never Tobacco comments: occasional former pipe smoker Vaping Use Vaping Use: Never used Substance Use Topics Alcohol use: Yes Alcohol/week: 5.0 standard drinks Types: 2 Cans of Beer (12oz) per week Comment: 2-3 cans of beer per week Drug use: No Request surgical planning with dr guardado - sent to [facility] for coordination Charlene Cunningham RN documented in this encounterOhiohealth Van Wert Hospital03-07-2023 Nurse Note* Tayla Tena RN - 04/18/2022 11:06 AM EST AMBULATORY PATIENT EDUCATION NOTE TOPIC: GI PROCEDURES: Esophagogastroduodenoscopy(EGD) for control of bleeding,dilation(any means),imaging,tube placement READINESS TO LEARN INSTRUCTION PROVIDED TO: Patient, readness to learn accessed prior to procedure COGNITIVE ABILITY: Alert and oriented PTED MOTIVATION TO LEARN: Eager Interested FAMILY SUPPORT: Moderate - Family present but overwhelmed IPATIENT LEARNS BEST BY: Individual Instruction FACTORS AFFECTING LEARNING: None PHYSICAL LIMITATIONS AFFECTING LEARNING: None LEARNING RESPONSE METHOD OF INSTRUCTION: Individual instruction PATIENT / FAMILY RESPONSE: Verbalizes understanding of: WORSENING CONDITION- Signs and symptoms of aworsening condition that warrant a call to the physician FOLLOW-UP PLAN: Patient instructed to call with any further issues SUPPLEMENTAL MATERIAL: Procedure Discharge Instructions REFERRAL (RECOMMENDATION): None * Nataliya Duarte LPN - 04/18/2022 10:03 AM EST PRE OP LEARNING ASSESSMENT PROCEDURE/SURGERY: GI PROCEDURES: EGD READINESS TO LEARN COGNITIVE ABILITY: Alert and oriented MOTIVATION TO LEARN: Eager FAMILY SUPPORT: High - Very involved in pt care PATIENT LEARNS BEST BY: Individual Instruction FACTORS AFFECTING LEARNING: None PHYSICAL LIMITATIONS AFFECTING LEARNING: None Electronically Signed By: Nataliya Duarte LPN In Department: GASTROENTEROLOGY documented in this encounterOhiohealth Van Wert Hospital03-06-2023 History of Present illness Narrative* DANNY Diaz - 04/17/2022 10:33 AM EST This note was created using [employer]riter. Subjective Jayden Craig is a 81 year old male. HPI 81-year-old male presents for fatigue. Patient states he has had fatigue starting this morning.He states he was exposed to COVID about 5 days ago. He wants a COVID test. He has an endoscopy scheduled tomorrow and wants to make sure he does not have COVID. Patient states that his friend told him that he had COVID over the weekend. Patient saw his friend last . Patient has not had any cough, fever, chills, congestion. States that he felt fatigued this morning and had a little bit of body aches. Otherwise, has not had any symptoms. No vomiting or diarrhea. No chest pain or shortnessof breath. No other complaints. He did get the COVID vaccines. 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 VASQUES in situ mammary end to side mid LAD, Vein graft ascending aorta end to side RCA, Vein graft ascending aorta end to side obtuse marginal 1 Hyperlipidemia Peptic ulcer, unspecified site, unspecified as acute or chronic, without mention of hemorrhage, perforation, or obstruction 2004 Unspecified hypothyroidism 1989 PAST SURGICAL HISTORY Procedure Laterality Date APPENDECTOMY COLONOSCOPY FLX DX W/COLLJ SPEC WHEN PFRMD 06/28/2004 Colonoscopy COLONOSCOPY FLX DX W/COLLJ SPEC WHEN PFRMD 08/06/2015 Colonoscopy CORONARY ARTERY BYPASS GRAFT HX 07/24/2018 VASQUES in situ mammary end to side mid LAD, Vein graft ascending aorta end to side RCA, Vein graft ascending aorta end to side obtuse marginal 1. EGD N/A 06/29/2020 Dr. Keating EGD 05/31/2021 EGD TRANSORAL BIOPSY SINGLE/MULTIPLE 08/30/2009 EGD TRANSORAL BIOPSY SINGLE/MULTIPLE 08/23/2011 repeat in 2 years ESOPHAGOGASTRODUODENOSCOPY TRANSORAL DIAGNOSTIC 10/06/1998 EGD ESOPHAGOGASTRODUODENOSCOPY TRANSORAL DIAGNOSTIC 01/29/2000 EGD ESOPHAGOGASTRODUODENOSCOPY TRANSORAL DIAGNOSTIC 08/04/2003 EGD ESOPHAGOGASTRODUODENOSCOPY TRANSORAL DIAGNOSTIC 08/29/2007 EGD ESOPHAGOGASTRODUODENOSCOPY TRANSORAL DIAGNOSTIC 08/28/2013 EGD ESOPHAGOGASTRODUODENOSCOPY TRANSORAL DIAGNOSTIC 10/08/2017 EGD HEART SURGERY HX LAPAROSCOPIC CHOLECYSTECTOMY 12/15/2018 PAST SURGICAL HISTORY OF N/A 04/25/2017 Back surgery done at [facility], [address] [place] [address] and cleaned up arthritis ALLERGIES Lipitor [Atorvastatin Calcium], Omnicef [Cefdinir], and Zithromax [Azithromycin] MEDICATIONS fluticasone (FLONASE) 50 mcg/actuation nasal spray Use 2 Sprays in each nostril once daily. Rinse mouth after use. aspirin, enteric coated (ASPIRIN, ENTERIC COATED) 325 mg EC tablet Take 1 tablet by mouth once daily. fluticasone-salmeterol HFA (ADVAIR HFA) 115-21 mcg/actuation inhaler Inhale 2 Puffs as instructed twice daily. Rinse mouth after use. metoprolol tartrate, short acting, (LOPRESSOR) 25 mg tablet Take 1 tablet by mouth twice daily. levothyroxine (LEVOXYL) 200 mcg tablet Take 1 tablet by mouth once daily. Take on empty stomach. For Thyroid. lisinopril (ZESTRIL, PRINIVIL) 10 mg tablet Take 1 tablet by mouth once daily. simvastatin (ZOCOR) 80 mg tablet Take 1 tablet by mouth daily at bedtime. pantoprazole DR (PROTONIX) 40 mg tablet Take 1 tablet by mouth twice daily. Take on empty stomach, 1/2 hr before meal. magnesium oxide (MAG-OX) 400 mg (241.3 mg magnesium) tablet Take 1 tablet by mouth once daily. senna-docusate (SENNA-S) 8.6-50 mg per tablet Take 1 tablet by mouth once daily. acetaminophen (TYLENOL) 325 mg tablet Take 2 tablets by mouth every 4 hours as needed. THERAPEUTIC MULTIVITAMIN TAB one tab daily FAMILY HISTORY Problem Relation Age of Onset Emphysema Father Emphysema Mother other (no cardiac hx per pt) Other Social History Tobacco Use Smoking status: Former Packs/day: 0.50 Years: 27.00 Pack years: 13.50 Types: Cigarettes Quit date: 1981 Years since quittin.2 Smokeless tobacco: Never Tobacco comments: occasional former pipe smoker Vaping Use Vaping Use: Never used Substance Use Topics Alcohol use: Yes Alcohol/week: 5.0 standard drinks Types: 2 Cans of Beer (12oz) per week Comment: 2-3 cans of beer per week Drug use: No Review of Systems Constitutional: Positive for fatigue. Negative for chills and fever. HENT: Negative for congestion and sore throat. Respiratory: Negative for cough and shortness of breath. Gastrointestinal: Negative for diarrhea and vomiting. Objective BP 132/82 Pulse 94 Temp 36.8 C (98.3 F) Resp 20 Wt 86.2 kg (190 lb) SpO2 98% BMI 28.06 kg/m Physical Exam Vitals and nursing note reviewed. Constitutional: General: He is not in acute distress. Appearance: Normal appearance. He is not toxic-appearing. HENT: Right Ear: Tympanic membrane and ear canal normal. Left Ear: Tympanic membrane and ear canal normal. Nose: Nose normal. Mouth/Throat: Mouth: Mucous membranes are moist. Eyes: Conjunctiva/sclera: Conjunctivae normal. Cardiovascular: Rate and Rhythm: Normal rate and regular rhythm. Pulmonary: Effort: Pulmonary effort is normal. Breath sounds: Normal breath sounds. Skin: General: Skin is warm and dry. Neurological: Mental Status: He is alert. Assessment and Plan ASSESSMENT/PLAN: 1. Fatigue, unspecified type - ICD9: 780.79, ICD10: R53.83 (primary diagnosis) - 2019 CORONAVIRUS 2. Exposure to COVID-19 virus - ICD9: V01.79, ICD10: Z20.822 - 2019 CORONAVIRUS -Discussed with patient that since symptoms started this morning, if he comes back COVID-positive, he would be in the window for antiviral. He is going to think this over. He will contact his PCP if he is COVID-positive and discuss antiviral Diagnosis and treatment plan were discussed and questions were answered to the patient's satisfaction. Pt acknowledged understanding of concepts and follow up plan. Specific signs and symptoms that would indicate the need for higher level of care were discussed in detail warranting prompt ER evaluation. DANNY Diaz documented in this encounterOhiohealth [facility]02-02-2023 Miscellaneous Notes* Telephone Encounter - Annette Lizama RN - 03/16/2022 1:39 PM EST Ordered was placed by Dr. Regina Oswald. Routed to Q3 for scheduling, patient notified via My Chart. BLANCHE Rae, RN [facility] documented in this encounterOhiohealth Van Wert Hospital02-02-2023 Nurse Note* Natalia Butt RN - 03/16/2022 10:05 AM EST REVIEW OF SYSTEMS: General: The patient denies fatigue, denies weight loss, denies weight gain, denies feeling hot, and denies feelings of cold. Eyes: The patient denies glaucoma, denies eye injury/surgery, wears glasses or contacts. Ear/Nose/Throat: The patient NOTES allergies, denies hayfever, denies ear infections, and denies bloody noses. Cardiovascular: The patient denies chest pain, NOTES heart disease, NOTES high blood pressure,denies cardiac stent, denies prior heart attack, denies irregular heart beat, NOTES high cholesterol, denies poor circulation, denies heart failure, other cardiac issues, denies claudication, denies cold feet, denies peripheral arterial stent. Respiratory: The patient denies tuberculosis, denies pneumonia, denies frequent cough, denies pulmonary embolism, denies shortness of breath, and denies coughing up blood. Gastrointestinal: The patient denies difficulty swallowing, denies acid reflux, NOTES ulcers, denies vomiting, denies jaundice/hepatitis, denies gallbladder problems, denies black or tarry stools, denies hemorrhoids, denies bleeding from rectum, denies diverticulitis, NOTES constipation, denies diarrhea, denies loss of stool control, and NOTES hernias. Kidney/Bladder: The patient denies kidney stones, denies urine infections, and denies bloody urine. Skin: The patient denies a history of skin cancer, denies bleeding/changing moles, and denies a history of skin rash. Neurologic: The patient denies a history of epilepsy/convulsions, denies headaches, denies head/spinal injuries, and denies stroke/TIA. Psychiatric: The patient denies psychiatric medications, denies depression, and denies voices, denies substance abuse. Endocrine: The patient NOTES thyroid disorders, denies diabetes, and denies hormonal problems. Hematologic: The patient denies a history of bruising, denies bleeding, and denies anemia, denies blood clots. Infections: The patient denies a history of measles and mumps, denies rheumatic fever, and denies sexually transmitted diseases. Musculoskeletal: The patient denies back pain/injury, denies back problems, denies sciatica, deniesknee/foot trouble, denies arthritis, or denies gout. When was patient's last Mammogram screening? N/A Last Colonoscopy: FOBT 2017 Natalia Butt RN documented in this encounterOhiohealth Van Wert Hospital02-02-2023 History of Present illness Narrative* Regina Oswald MD - 03/16/2022 9:56 AM EST Jayden Balderas Kiara 1940 REFERRING PHYSICIAN: Eloisa Espinal MD CHIEF COMPLAINT: Consult (EGD consult, abdominal wall hernia) HPI: The patient is a 81 year old male referred for endoscopy. Jayden notes known Escobedo's esophagitis with low grade dysplasia. He is also noted to have an incisional ventral hernia. Patient points to RUQ abdominal wall as to having pain. I have explained to him that repair of the hernia will not alleviate the RUQ abdominal wall pain which may be due to muscle spasms as he describes it. Patient concurs. Patient was seen by Dr. Boothe at [facility] for intrathoracic stomach and recommended to have repair, but patient deferred and has not followed up. Patient was also referred by me to have EGD at [facility] to Dr. Keating, given the intrathoracic stomach and patient's medical condition. Patient thought he could have the procedure done at this [facility] and I have explained that there is no anesthesiologist and/or supporting staff at this location,should a problem arise. He has multiple medical morbidities that would preclude EGD at this location. He is an ASA III+ (asthma/SOB, severe kyphosis, CAD, hypertension, thoracic stomach) 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 VASQUES in situ mammary end to side mid LAD, Vein graft ascending aorta end to side RCA, Vein graft ascending aorta end to side obtuse marginal 1 Hyperlipidemia Peptic ulcer, unspecified site, unspecified as acute or chronic, without mention of hemorrhage, perforation, or obstruction 2004 Unspecified hypothyroidism 1989 PAST SURGICAL HISTORY Procedure Laterality Date APPENDECTOMY COLONOSCOPY FLX DX W/COLLJ SPEC WHEN PFRMD 06/28/2004 Colonoscopy COLONOSCOPY FLX DX W/COLLJ SPEC WHEN PFRMD 08/06/2015 Colonoscopy CORONARY ARTERY BYPASS GRAFT HX 07/24/2018 VASQUES in situ mammary end to side mid LAD, Vein graft ascending aorta end to side RCA, Vein graft ascending aorta end to side obtuse marginal 1. EGD N/A 06/29/2020 Dr. Keating EGD 05/31/2021 EGD TRANSORAL BIOPSY SINGLE/MULTIPLE 08/30/2009 EGD TRANSORAL BIOPSY SINGLE/MULTIPLE 08/23/2011 repeat in 2 years ESOPHAGOGASTRODUODENOSCOPY TRANSORAL DIAGNOSTIC 10/06/1998 EGD ESOPHAGOGASTRODUODENOSCOPY TRANSORAL DIAGNOSTIC 01/29/2000 EGD ESOPHAGOGASTRODUODENOSCOPY TRANSORAL DIAGNOSTIC 08/04/2003 EGD ESOPHAGOGASTRODUODENOSCOPY TRANSORAL DIAGNOSTIC 08/29/2007 EGD ESOPHAGOGASTRODUODENOSCOPY TRANSORAL DIAGNOSTIC 08/28/2013 EGD ESOPHAGOGASTRODUODENOSCOPY TRANSORAL DIAGNOSTIC 10/08/2017 EGD HEART SURGERY HX LAPAROSCOPIC CHOLECYSTECTOMY 12/15/2018 PAST SURGICAL HISTORY OF N/A 04/25/2017 Back surgery done at [address] and cleaned up arthritis Current Outpatient Medications Medication Sig fluticasone (FLONASE) 50 mcg/actuation nasal spray Use 2 Sprays in each nostril once daily. Rinse mouth after use. aspirin, enteric coated (ASPIRIN, ENTERIC COATED) 325 mg EC tablet Take 1 tablet by mouth once daily. fluticasone-salmeterol HFA (ADVAIR HFA) 115-21 mcg/actuation inhaler Inhale 2 Puffs as instructed twice daily. Rinse mouth after use. metoprolol tartrate, short acting, (LOPRESSOR) 25 mg tablet Take 1 tablet by mouth twice daily. levothyroxine (LEVOXYL) 200 mcg tablet Take 1 tablet by mouth once daily. Take on empty stomach. For Thyroid. lisinopril (ZESTRIL, PRINIVIL) 10 mg tablet Take 1 tablet by mouth once daily. simvastatin (ZOCOR) 80 mg tablet Take 1 tablet by mouth daily at bedtime. pantoprazole DR (PROTONIX) 40 mg tablet Take 1 tablet by mouth twice daily. Take on empty stomach, 1/2 hr before meal. magnesium oxide (MAG-OX) 400 mg (241.3 mg magnesium) tablet Take 1 tablet by mouth once daily. senna-docusate (SENNA-S) 8.6-50 mg per tablet Take 1 tablet by mouth once daily. acetaminophen (TYLENOL) 325 mg tablet Take 2 tablets by mouth every 4 hours as needed. THERAPEUTIC MULTIVITAMIN TAB one tab daily ALLERGIES: Lipitor [Atorvastatin Calcium], Omnicef [Cefdinir], and Zithromax [Azithromycin] PERSONAL HISTORY: Social History Tobacco Use Smoking status: Former Packs/day: 0.50 Years: 27.00 Pack years: 13.50 Types: Cigarettes Quit date: 1981 Years since quittin.1 Smokeless tobacco: Never Tobacco comments: occasional former pipe smoker Vaping Use Vaping Use: Never used Substance Use Topics Alcohol use: Yes Alcohol/week: 5.0 standard drinks Types: 2 Cans of Beer (12oz) per week Comment: 2-3 cans of beer per week Drug use: No FAMILY HISTORY Problem Relation Age of Onset Emphysema Father Emphysema Mother other (no cardiac hx per pt) Other The review of systems data was entered by the nurse and reviewed by md Nursing Notes: Natalia Butt RN 03/16/2022 10:06 AM Signed REVIEW OF SYSTEMS: General: The patient denies fatigue, denies weight loss, denies weight gain, denies feeling hot, and denies feelings of cold. Eyes: The patient denies glaucoma, denies eye injury/surgery, wears glasses or contacts. Ear/Nose/Throat: The patient NOTES allergies, denies hayfever, denies ear infections, and denies bloody noses. Cardiovascular: The patient denies chest pain, NOTES heart disease, NOTES high blood pressure,denies cardiac stent, denies prior heart attack, denies irregular heart beat, NOTES high cholesterol, denies poor circulation, denies heart failure, other cardiac issues, denies claudication, denies cold feet, denies peripheral arterial stent. Respiratory: The patient denies tuberculosis, denies pneumonia, denies frequent cough, denies pulmonary embolism, denies shortness of breath, and denies coughing up blood. Gastrointestinal: The patient denies difficulty swallowing, denies acid reflux, NOTES ulcers, denies vomiting, denies jaundice/hepatitis, denies gallbladder problems, denies black or tarry stools, denies hemorrhoids, denies bleeding from rectum, denies diverticulitis, NOTES constipation, denies diarrhea, denies loss of stool control, and NOTES hernias. Kidney/Bladder: The patient denies kidney stones, denies urine infections, and denies bloody urine. Skin: The patient denies a history of skin cancer, denies bleeding/changing moles, and denies a history of skin rash. Neurologic: The patient denies a history of epilepsy/convulsions, denies headaches, denies head/spinal injuries, and denies stroke/TIA. Psychiatric: The patient denies psychiatric medications, denies depression, and denies voices, denies substance abuse. Endocrine: The patient NOTES thyroid disorders, denies diabetes, and denies hormonal problems. Hematologic: The patient denies a history of bruising, denies bleeding, and denies anemia, denies blood clots. Infections: The patient denies a history of measles and mumps, denies rheumatic fever, and denies sexually transmitted diseases. Musculoskeletal: The patient denies back pain/injury, denies back problems, denies sciatica, deniesknee/foot trouble, denies arthritis, or denies gout. When was patient's last Mammogram screening? N/A Last Colonoscopy: FOBT 2017 Natalia Butt RN PHYSICAL EXAMINATION: General: The patient is 81 year old male, well nourished, well hydrated in no acute distress. The patient is oriented to time, place, and person. VITALS: Blood pressure 120/62, pulse 104, temperature 36.4 C (97.6 F), height 175.3 cm (5' 9), weight 87.4 kg (192 lb 9.6 oz), SpO2 100 %. Body mass index is 28.44 kg/m . Head: Normal cephalic, atraumatic, wearing glasses Neck - supple with no jugular venous distention noted. Trachea is midline. Lungs - no labored breathing noted, such as retractions. No cough heard. Abdomen - soft and benign. Upper abdominal wall rectus diastasis. midline incision. Reducible periumbilical incisional hernia. Normal bowel sounds. No abdominal bruits noted. Back - severe kyphosis such that patient is not able to stand upright Extremities - no calf tenderness noted. No pitting edema noted. Skin - normal skin integrity. Neurological - walks hunched over otherwise gait normal, no focal deficits noted. Psych - calm and appropriate Assessment IMPRESSION: escobedo's with low grade dysplasia, ventral hernia, intrathoracic stomach PLAN: Given that patient has a thoracic stomach, I have recommended that he have EGD done at main [facility] Negra have placed order for this. At this location, there is no anesthesiologist available and this is wholly an outpatient facility with limited staffing. Also, I have recommended that patient follow up with Dr. Boothe for repair of diaphragmatic hernia with thoracic stomach[place]. Patient acknowledges the above. Diagnoses: (K22.718) Escobedo's esophagus with low grade dysplasia I have confirmed and edited as necessary, the PFSH and ROS obtained by others. Consultation requested by Dr. Eloisa Espinal for an opinion regarding patient's Escobedo's esophagus. My final recommendations will be communicated back to the requesting physician by way of shared Medical record or letter to requesting physician via US mail. Return to Clinic: The patient is instructed to follow-up with me as per needed. Medical Decision Making: Problems: Moderate: 2+ stable chronic illnesses Risk: Low: Low risk from testing/treatment Medical Decision Making Level: 3 - Low Regina Oswald MD documented in this encounterOhiohealth [facility]01-23-2023 Miscellaneous Notes* Telephone Encounter - Marely Begum Ma - 03/06/2022 7:05 PM EST Paradigm message sent to pt notifying him to contact [facility] Main number and they will assist him in scheduling Gen Surg consult. At his appt they can discuss if able to do here in [place]. Marely Begum Ma * Telephone Encounter - Eloisa Espinal MD - 03/06/2022 6:18 PM EST I ordered a Surg consult so they can discuss with him. Eloisa Espinal MD * Telephone Encounter - Marely Begum Ma - 03/06/2022 1:30 PM EST Ok for pt to complete in ASC, General Surgery? Marely Begum Ma documented in this encounterOhiohealth Van [facility]12-21-2022 History of Present illness Narrative* Bethanie Cline, PT - 02/01/2022 3:11 PM EST Episode Visit Count: 14 Therapist That Will Accept/Oversee The Plan Of Care: Bethanie Cline PT Start of Care Date: 12/08/21 Onset Date: 09/27/21 Plan of Care Certification Date: 01/11/22 Next Certification Due Date: 02/01/22 Patient Identified by Name and Date of : Yes REHABILITATION AND SPORTS THERAPY PHYSICAL THERAPY DISCONTINUANCE OF CARE PLAN OF CARE UPDATE: Assessment: Jayden Craig is discontinued from Physical Therapy services due to goal achievement and maximal benefit.. Patient was seen for 14 visits from Start of Care Date: 12/08/21 to 02/01/2022 and treatment included: Therapeutic exercise, Manual therapy, Self-alf management, and Patient/ Family/Caregiver Education. Goals for Episode of Care: created on 12/08/21 through 02/02/22 updated 01/11/22 updated 02/01/22 Independent in a Home Exercise Program./ achieved Patient will decrease pain to 2/10 with functional activities to allow patient to improve performance of ADL's / achieved . Restore pain free cervical ROM to 65-70 degrees rotations to allow for improved tolerance to driving / not achieved . Drive with no aggravation of pain/symptoms./ achieved Sleep throughout the night without pain/symptoms./ achieved Knowledgeable RE: prophylaxis./ achieved Patient Goals: alleviate pain ./ achieved SUBJECTIVE: Patient Reason for Visit: Pt reports that he has felt good all morning today .Pt reports that he has been driving around town today and has had no problem. Last night had pain in neck andarm from sitting in a bad chair. Was able to relax and make it go away. .. Pain: Pain Pain Level: 0 Pain Location: Neck - Left Post Treatment Pain Post Treatment Pain Level: 1 Post Treatment Pain Location: Scapula - Left Post Treatment Pain Description: Sore PROMIS Scales Higher is Better 12/20/2021 12/20/2021 01/10/2022 Phys Func - Score - - 38 (moderate dysfunction) Phys Func - Percentile - - 12 % Social Roles - Score - - - Social Role - Percentile - - - GH Physical - Score - 44.9 (Good) - GH Physical - Percentile 31 % 31 % - GH Mental - Score - 53.3 (Very Good) - GH Mental - Percentile 63 % 63 % - Self-Eff Symptom - Score - - 44 (Average) Self-Eff Symptom - Percentile - - 27 % T-scores: mean of general population = 50. 5 points is clinically meaningfully difference Percentiles provide an indication of how the patient's score ranks in relation to the general population. Higher percentile rankings indicate better function/quality of life. 50th percentile is the average of the general population and indicates half of respondents had a worse score. Lower is Better 07/12/2021 08/17/2021 Fatigue - Score 56 (mild) 51 (within normal limits) Fatigue - Percentile 27 % 46 % T-scores: mean of general population = 50. 5 points is clinically meaningfully difference Percentiles provide an indication of how the patient's score ranks in relation to the general population. Higher percentile rankings indicate better function/quality of life. 50th percentile is the average of the general population and indicates half of respondents had a worse score. OBJECTIVE MEASURES WITH LEVEL OF FUNCTION: Posture / Alignment Posture: Forward head;Rounded shoulders Sitting Posture: Fair Spine Observations L Cervical Spine Palpation Tenderness: Levator scapulae Cervical Spine ROM Cervical Side-Bend Right AROM (degrees): 20 Degrees Cervical Rotation Right AROM (degrees) : 60 Degrees TREATMENT: Therapeutic Exercise: 1: right LF 15 sec hold x5 cues and mirror used for form 2: right rotation 15 sec hold x5 3: purple scapular retractions 3x15 5: left levator stretch 15 sec x5 6: Cervical extension isometrics with 5 second holds x3 with right UE Skilled Intervention: Patient was educated in proper exercise technique and purpose for exercises. Skilled judgment was provided in selection of appropriate interventions. Correct performance of therapeutic exercises was facilitated with verbal and visual cuing. Manual Therapy: Soft Tissue Mobilization: STM to L UT x 5 minutes Manual Traction: cervical traction lying supine with wedge and pillow , pull to tolerance 30 sec onand 10 sec off. x 10 miniutes Skilled Intervention: Manual skills to improve joint mobility, ROM, and decrease pain. Utilized anatomy knowledge of the therapist, and assessment of patient's response to intervention. Billing Therapeutic Exercise Treatment Minutes: 20 Manual TherapyTreatment Minutes: 15 Total Treatment Time Minutes (timed/untimed): 35 Bethanie Cline PT documented in this encounterOhiohealth Van Wert Hospital12-13-2022 History of Present illness Narrative* Bethanie Cline PT - 01/24/2022 11:44 AM EST Episode Visit Count: 13 Therapist That Will Accept/Oversee The Plan Of Care: Bethanie Cline PT Start of Care Date: 12/08/21 Onset Date: 09/27/21 Plan of Care Certification Date: 01/11/22 Next Certification Due Date: 02/01/22 Patient Identified by Name and Date of : Yes REHABILITATION AND SPORTS THERAPY PHYSICAL THERAPY TREATMENT NOTE ASSESSMENT: Jayden Craig tolerated the session with no issues. He demonstrated improvements in tolerance to added resistance with scapular retractions. The patient will continue to benefit from ongoing skilled physical therapy to progress toward set goals. PLAN FOR NEXT VISIT: cotinue with gentle manual traction, and exs as tolerated SUBJECTIVE: Patient Reason for Visit: Pt states that he is doing really well today. Pt reports riding to [employer] and watching a show over the weekend and about half way through and the way home hehad some discomfort, but not super painful. Pain: Pain Pain Level: 1 Pain Location: Neck - Left (I know its there, no real pain) Post Treatment Pain Post Treatment Pain Level: No Change OBJECTIVE MEASURES WITH LEVEL OF FUNCTION: TREATMENT: Therapeutic Exercise: 1: right LF 15 sec hold x5 cues and mirror used for form 2: right rotation 15 sec hold x5 3: BTB scapular retractions 1x15, PTB 1x15,1x20 5: left levator stretch 15 sec x5 6: Cervical extension isometrics with 5 second holds x3 with right UE Skilled Intervention: Patient was educated in proper exercise technique and purpose for exercises. Skilled judgment was provided in selection of appropriate interventions. Correct performance of therapeutic exercises was facilitated with verbal cuing. Manual Therapy: Soft Tissue Mobilization: STM to L UT x 4 minutes (relieved pain after traction) Manual Traction: cervical traction lying supine with wedge and pillow , pull to tolerance 30 sec onand 10 sec off. x 10 miniutes (a little pain afterwardws) Skilled Intervention: Manual skills to improve joint mobility, ROM, and decrease pain. Utilized anatomy knowledge of the therapist, and assessment of patient's response to intervention. Billing Therapeutic Exercise Treatment Minutes: 20 Manual TherapyTreatment Minutes: 14 Total Treatment Time Minutes (timed/untimed): 34 Martha Maher PTA/Bethanie Cline PT documented in this encounterOhio[facility] History of Present illness Narrative* Bethanie Cline PT - 01/19/2022 11:02 AM EST Episode Visit Count: 12 Therapist That Will Accept/Oversee The Plan Of Care: Bethanie Cline PT Start of Care Date: 12/08/21 Onset Date: 09/27/21 Plan of Care Certification Date: 01/11/22 Next Certification Due Date: 02/01/22 Patient Identified by Name and Date of : Yes REHABILITATION AND SPORTS THERAPY PHYSICAL THERAPY TREATMENT NOTE ASSESSMENT: Jayden Craig tolerated the session with decreased symptoms. He demonstrated improvements in pain in L arm. The patient will continue to benefit from ongoing skilled physical therapy to progress toward set goals. PLAN FOR NEXT VISIT: cotinue with gentle manual traction, and exs as tolerated SUBJECTIVE: Patient Reason for Visit: Pt reports that he didn't get any neck pain from driving herethis morning. Pain: Pain Pain Level: 2 Pain Location: Arm - Left OBJECTIVE MEASURES WITH LEVEL OF FUNCTION: TREATMENT: Therapeutic Exercise: 1: right LF 15 sec hold x5 cues and mirror used for form 2: right rotation 15 sec hold x5 3: BTB scapular retractions 4x15 5: left levator stretch 15 sec x5 6: Cervical extension isometrics with 5 second holds x3 with right UE Skilled Intervention: Patient was educated in proper exercise technique and purpose for exercises. Skilled judgment was provided in selection of appropriate interventions. Correct performance of therapeutic exercises was facilitated with verbal and visual cuing. Manual Therapy: Soft Tissue Mobilization: STM to L UT x 3 minutes (relieved pain after traction) Manual Traction: cervical traction lying supine with wedge and pillow , pull to tolerance 30 sec onand 10 sec off. x 10 miniutes (a little pain afterwardws) Skilled Intervention: Manual skills to improve joint mobility, ROM, and decrease pain. Utilized anatomy knowledge of the therapist, and assessment of patient's response to intervention. Billing Therapeutic Exercise Treatment Minutes: 20 Manual TherapyTreatment Minutes: 13 Total Treatment Time Minutes (timed/untimed): 33 Martha Maher PTA/Bethanie Cline PT documented in this encounterOhiohealth [facility]12-06-2022 History of Present illness Narrative* Bethanie Cline PT - 01/17/2022 11:57 AM EST Episode Visit Count: 11 Therapist That Will Accept/Oversee The Plan Of Care: Bethanie Cline PT Start of Care Date: 12/08/21 Onset Date: 09/27/21 Plan of Care Certification Date: 01/11/22 Next Certification Due Date: 02/01/22 Patient Identified by Name and Date of : Yes REHABILITATION AND SPORTS THERAPY PHYSICAL THERAPY TREATMENT NOTE ASSESSMENT: Jayden Craig tolerated the session with decreased symptoms. He demonstrated improvements in overall pain and better tolerance to manual traction . The patient will continue to benefit from ongoing skilled physical therapy to progress toward set goals. PLAN FOR NEXT VISIT: cotinue with gentle manual traction, and exs as tolerated SUBJECTIVE: Patient Reason for Visit: Pt notes that he was more sore on Sun. but then Thurs was better overall Pain: Pain Pain Level: 2 Pain Location: Scapula - Left;Arm - Left (forearm mild pain and tingling) Post Treatment Pain Post Treatment Pain Level: Better Post Treatment Symptoms: feels good OBJECTIVE MEASURES WITH LEVEL OF FUNCTION: TREATMENT: Therapeutic Exercise: 1: right LF 15 sec hold x5 cues and mirror used for form 2: right rotation 15 sec hold x2 wtih increased tingling 3: BTB scapular retractions 3x15 5: left levator stretch 15 sec x5 6: Cervical extension isometrics with 5 second holds x3 with right UE Skilled Intervention: Patient was educated in proper exercise technique and purpose for exercises. Skilled judgment was provided in selection of appropriate interventions. Correct performance of therapeutic exercises was facilitated with verbal and visual cuing. Manual Therapy: Manual Traction: cervical lying supine with wedge and pillow , pull to tolerance 30 sec on and 10 sec off. x 10 miniutes Skilled Intervention: Manual skills to improve joint mobility, ROM, and decrease pain. Utilized anatomy knowledge of the therapist, and assessment of patient's response to intervention. Billing Therapeutic Exercise Treatment Minutes: 20 Manual TherapyTreatment Minutes: 10 Total Treatment Time Minutes (timed/untimed): 30 Bethanie Cline PT documented in this encounterOhiohealth [facility]11-30-2022 History of Present illness Narrative* Bethanie Cline PT - 01/11/2022 4:07 PM EST Episode Visit Count: 10 Therapist That Will Accept/Oversee The Plan Of Care: Bethanie Cline PT Start of Care Date: 12/08/21 Onset Date: 09/27/21 Plan of Care Certification Date: 01/11/22 Next Certification Due Date: 02/01/22 Patient Identified by Name and Date of : Yes REHABILITATION AND SPORTS THERAPY PHYSICAL THERAPY PROGRESS REPORT PLAN OF CARE UPDATE: Assessment: Jayden Craig demonstrates moderate improvement in physical activities, sleeping, and driving. He hasprogressed toward goals. Patient continues to present with impairments in posture, range of motion, and symptom management that interfere with . Current prognosis is Good due to: current objective clinical presentation . He will benefit from continued skilled therapy services to meet the updated goals for this plan of care as noted below. Goals for Episode of Care: created on 12/08/21 through 02/02/22 updated 01/11/22 Independent in a Home Exercise Program./ achieved Patient will decrease pain to 2/10 with functional activities to allow patient to improve performance of ADL's / partially achieved . Restore pain free cervical ROM to 65-70 degrees rotations to allow for improved tolerance to driving / not achieved . Drive with no aggravation of pain/symptoms./ partially achieved Sleep throughout the night without pain/symptoms./ achieved Knowledgeable RE: prophylaxis./ achieved Patient Goals: alleviate pain ./partially achieved Planned Interventions, Frequency, and Duration: 2x/week, 2 weeks Total Number of Visits Planned: 4 Patient to be seen for Therapeutic exercise ([id number]);Neuromuscular re-education ([id number]);Manual therapy ([id number]);Self-alf management ([id number]);Patient/Family/Caregiver Education PLAN FOR NEXT VISIT: continue [facility] manual therapy SUBJECTIVE: Patient Reason for Visit: Pt notes that he is coming along pretty good. Had a bout withhis arm last night. Pain from elbow to hand and tingling in hand. Is doing his exs. Feels that driving is improving. Would like to do a couple more weeks of therapy. Pain: Pain Pain Level: 2 Pain Location: Neck Description: (some tingling in hand) Post Treatment Pain Post Treatment Pain Level: 3 Post Treatment Pain Location: Neck Post Treatment Pain Description: Sore PROMIS Scales Higher is Better 12/20/2021 12/20/2021 01/10/2022 Phys Func - Score - - 38 (moderate dysfunction) Phys Func - Percentile - - 12 % Social Roles - Score - - - Social Role - Percentile - - - GH Physical - Score - 44.9 (Good) - GH Physical - Percentile 31 % 31 % - GH Mental - Score - 53.3 (Very Good) - GH Mental - Percentile 63 % 63 % - Self-Eff Symptom - Score - - 44 (Average) Self-Eff Symptom - Percentile - - 27 % T-scores: mean of general population = 50. 5 points is clinically meaningfully difference Percentiles provide an indication of how the patient's score ranks in relation to the general population. Higher percentile rankings indicate better function/quality of life. 50th percentile is the average of the general population and indicates half of respondents had a worse score. Lower is Better 07/12/2021 08/17/2021 Fatigue - Score 56 (mild) 51 (within normal limits) Fatigue - Percentile 27 % 46 % T-scores: mean of general population = 50. 5 points is clinically meaningfully difference Percentiles provide an indication of how the patient's score ranks in relation to the general population. Higher percentile rankings indicate better function/quality of life. 50th percentile is the average of the general population and indicates half of respondents had a worse score. OBJECTIVE MEASURES WITH LEVEL OF FUNCTION: Posture / Alignment Posture: Forward head;Rounded shoulders (flexed trunk in standing) Spine Observations L Cervical Spine Palpation Tenderness: Levator scapulae L Thoracic Spine Palpation Tenderness: Medial border- Scapula Sensation - Cervical Spine Cervical Spine Sensation: Grossly Intact Cervical Spine ROM Cervical Flexion AROM (degrees) : 20 Degrees Cervical Extension AROM (degrees) : 30 Degrees Cervical Side-Bend Right AROM (degrees): 20 Degrees Cervical Side-Bend Left AROM (degrees) : 30 Degrees Cervical Rotation Right AROM (degrees) : 50 Degrees Cervical Rotation Left AROM (degrees) : 48 Degrees Special Tests - Cervical Cervical Distraction: Positive TREATMENT: Therapeutic Exercise: 1: right LF 15 sec hold x5 cues and mirror used for form 2: right rotation 15 sec hold x2 wtih increased tingling 3: BTB scapular retractions 3x15 4: posterior shoulder rolls standing 3x10 1x10 3 different times in session 5: left levator stretch 15 sec x5 6: Cervical extension isometrics with 5 second holds x3 with right UE Skilled Intervention: Skilled judgment was provided in selection of appropriate interventions. Correct performance of therapeutic exercises was facilitated with verbal and visual cuing. Manual Therapy: Manual Traction: cervical lying supine with wedge and pillow , pull to tolerance 30 sec on and 10 sec off. x 10 miniutes Skilled Intervention: Manual skills to improve joint mobility, ROM, and decrease pain. Utilized anatomy knowledge of the therapist, and assessment of patient's response to intervention. Billing Therapeutic Exercise Treatment Minutes: 20 Manual TherapyTreatment Minutes: 10 Total Treatment Time Minutes (timed/untimed): 30 Bethanie Cline PT documented in this encounterOhiohealth [facility]11-28-2022 History of Present illness Narrative* Bethanie Cline PT - 01/09/2022 10:16 AM EST Episode Visit Count: 9 Therapist That Will Accept/Oversee The Plan Of Care: Bethanie Cline PT Start of Care Date: 12/08/21 Onset Date: 09/27/21 Plan of Care Certification Date: 12/08/21 Next Certification Due Date: 01/19/22 Patient Identified by Name and Date of : Yes REHABILITATION AND SPORTS THERAPY PHYSICAL THERAPY TREATMENT NOTE ASSESSMENT: Jayden Craig tolerated the session with decreased symptoms. He demonstrated improvements in R cervical rotation. The patient will continue to benefit from ongoing skilled physical therapy to progress toward set goals. PLAN FOR NEXT VISIT: SUBJECTIVE: Patient Reason for Visit: Pt reports that his neck is improved today. Pain: Pain Pain Level: 2 Pain Location: Neck Additional Pain Information : (a little tingling in arm to hand .) Post Treatment Pain Post Treatment Pain Level: Better Post Treatment Pain Location: Neck OBJECTIVE MEASURES WITH LEVEL OF FUNCTION: Pt able to complete R cervical rotation stretch without radicular symptoms this visit. TREATMENT: Therapeutic Exercise: 1: right LF 15 sec hold x5 cues and mirror used for form 2: right rotation 15 sec hold x5 3: BTB scapular retractions 3x15 (cues for form) 4: posterior shoulder rolls standing 3x10 1x10 3 different times in session 5: left levator stretch 15 sec x5 6: Cervical extension isometrics with 2 second holds 2x10 Skilled Intervention: Patient was educated in proper exercise technique and purpose for exercises. Skilled judgment was provided in selection of appropriate interventions. Correct performance of therapeutic exercises was facilitated with verbal and visual cuing. Manual Therapy: Soft Tissue Mobilization: STM and trigger point to L UT x 5 minutes , end or session supine but increased soreness in mm Manual Traction: cervical lying supine with wedge and pillow , pull to tolerance 30 sec on and 10 sec off. x 10 miniutes (sore after ttsction, but not painful) Skilled Intervention: Manual skills to improve joint mobility, ROM, and decrease pain. Utilized anatomy knowledge of the therapist, and assessment of patient's response to intervention. Billing Therapeutic Exercise Treatment Minutes: 18 Manual TherapyTreatment Minutes: 15 Total Treatment Time Minutes (timed/untimed): 33 Martha Maher PTA/Bethanie Cline PT documented in this encounterOhiohealth [facility]11-25-2022 History of Present illness Narrative* Bethanie Cline PT - 01/06/2022 10:17 AM EST Episode Visit Count: 8 Therapist That Will Accept/Oversee The Plan Of Care: Bethanie Cline PT Start of Care Date: 12/08/21 Onset Date: 09/27/21 Plan of Care Certification Date: 12/08/21 Next Certification Due Date: 01/19/22 Patient Identified by Name and Date of : Yes REHABILITATION AND SPORTS THERAPY PHYSICAL THERAPY TREATMENT NOTE ASSESSMENT: Jayden Craig tolerated the session with no issues. He demonstrated increased arm sx with right rotation and soreness in mm at end of session . . The patient will continue to benefit from ongoing skilled physical therapy to progress toward set goals. PLAN FOR NEXT VISIT: continue to assess response of exs. Add isometric cervical extension . SUBJECTIVE: Patient Reason for Visit: Pt notes that he is coming along. Pain is a little bit since driving this morning. Still has tingling in arm . Sx do improve with exs. Pain: Pain Pain Level: 2 Pain Location: Neck Additional Pain Information : (a little tingling in arm to hand .) Post Treatment Pain Post Treatment Pain Level: 3 Post Treatment Pain Location: Neck Post Treatment Symptoms: sore in trigger point upper trap / better wtih shoulder rolls OBJECTIVE MEASURES WITH LEVEL OF FUNCTION: continue with have forward head with left LF posture TREATMENT: Therapeutic Exercise: 1: right LF 15 sec hold x5 cues and mirror used for form 2: right rotation 15 sec hold x2 with increased arm sx so discontinued 3: BTB scapular retractions 3x15 (cues for form) 4: posterior shoulder rolls standing 3x10 1x10 3 different times in session 5: left levator stretch 15 sec x5 Skilled Intervention: Patient was educated in proper exercise technique and purpose for exercises. Reviewed and educated patient on additions/changes for home exercise program . Patient education as noted. Manual Therapy: Soft Tissue Mobilization: STM and trigger point to L UT x 5 minutes , end or session supine but increased soreness in mm Manual Traction: cervical lying supine with wedge and pillow , pull to tolerance 30 sec on and 10 sec off. x 10 miniutes (sore after ttsction, but not painful) Skilled Intervention: Manual skills to improve joint mobility, ROM, and decrease pain. Utilized anatomy knowledge of the therapist, and assessment of patient's response to intervention. Home Exercise Program Assigned: 1: discontinue right cervical rotation Billing Therapeutic Exercise Treatment Minutes: 25 Manual TherapyTreatment Minutes: 15 Self-Care/Home Management Treatment Minutes: 5 Total Treatment Time Minutes (timed/untimed): 45 Bethanie Cline PT documented in this encounterOhiohealth [facility]11-22-2022 History of Present illness Narrative* Bethanie Cline PT - 01/03/2022 10:20 AM EST Episode Visit Count: 7 Therapist That Will Accept/Oversee The Plan Of Care: Bethanie Cline PT Start of Care Date: 12/08/21 Onset Date: 09/27/21 Plan of Care Certification Date: 12/08/21 Next Certification Due Date: 01/19/22 Patient Identified by Name and Date of : Yes REHABILITATION AND SPORTS THERAPY PHYSICAL THERAPY TREATMENT NOTE ASSESSMENT: Jayden Craig tolerated the session with no issues. He demonstrated difficulty with standing forward elevation of B shoulders. The patient will continue to benefit from ongoing skilled physical therapy to progress toward set goals. PLAN FOR NEXT VISIT: Continue with manial and advance exercises as tolerated SUBJECTIVE: Patient Reason for Visit: Pt reports yesterday was not a good day due to pain and tingling down his LUE and hand. Pt states he drove 2 places yesterday and pain wasn't good in back of neck. Pt reports doing exercises 3x/ day over the weeknd, wonders if he overdid it, so patient did not do exercises yesterday. Pt reports driving here this morning without any pain in posterior neck. Pain: Pain Pain Level: 0 Pain Location: Neck Description: (slight numbness and tingling in top of L hand) Post Treatment Pain Post Treatment Pain Level: No Change OBJECTIVE MEASURES WITH LEVEL OF FUNCTION: Form and technique improved for seated R rotation without verbal cueing. TREATMENT: Therapeutic Exercise: 1: right LF 15 sec hold x5 cues and mirror used for form 2: right rotation 15 sec hold x5 3: BTB scapular retractions 3x10 (cues for form) 4: posterior shoulder rolls standing 3x10 5: left levator stretch 15 sec x5 6: thoracic extension over edge of chair x 10 with 10 second holds 7: *Advised pt to complete some of his stretches even on his bad days to see if it aleviates his pain. 8: Standing against wall forward elevation of shoulders x 8 Skilled Intervention: Patient was educated in proper exercise technique and purpose for exercises. Skilled judgment was provided in selection of appropriate interventions. Correct performance of therapeutic exercises was facilitated with verbal and visual cuing. Manual Therapy: Soft Tissue Mobilization: STM and trigger point to L UT x 5 minutes Manual Traction: cervical lying supine with wedge and pillow , pull to tolerance 30 sec on and 10 sec off. x 10 miniutes (sore after ttsction, but not painful) Skilled Intervention: Manual skills to improve joint mobility, ROM, and decrease pain. Utilized anatomy knowledge of the therapist, and assessment of patient's response to intervention. Billing Therapeutic Exercise Treatment Minutes: 25 Manual TherapyTreatment Minutes: 15 Total Treatment Time Minutes (timed/untimed): 40 Martha Maher PTA/Bethanie Cline PT documented in this encounterOhiohealth [facility]11-18-2022 History of Present illness Narrative* Bethanie Cline PT - 12/30/2021 8:44 AM EST Episode Visit Count: 6 Therapist That Will Accept/Oversee The Plan Of Care: Bethanie Cline PT Start of Care Date: 12/08/21 Onset Date: 09/27/21 Plan of Care Certification Date: 12/08/21 Next Certification Due Date: 01/19/22 Patient Identified by Name and Date of : Yes REHABILITATION AND SPORTS THERAPY PHYSICAL THERAPY TREATMENT NOTE ASSESSMENT: Jayden Craig tolerated the session with decreased symptoms. He demonstrated difficulty with posterior shoulder rolls. The patient will continue to benefit from ongoing skilled physical therapy to progress toward set goals. PLAN FOR NEXT VISIT: Continue with manial and advance exercises as tolerated SUBJECTIVE: Patient Reason for Visit: Pt reports he barely had pain when leaving his house, but driving aggrevated his neck, mostly posterior. Pt states he thinks the driving neck pain is due to higher elevation of LE and possilby elevating shoulder. Pt reports no pain in the LUE, but tingling in Lforearm and hand ending at knuckles of all fingers. Pain: Pain Pain Level: 3 Pain Location: Neck (posterior approximately C7) Post Treatment Pain Post Treatment Pain Level: Better OBJECTIVE MEASURES WITH LEVEL OF FUNCTION: Thoracic extension increased with continued reps of seated thoracic extension over chair. TREATMENT: Therapeutic Exercise: 1: right LF 15 sec hold x5 cues and mirror used for form 2: right rotation 15 sec hold x5 3: BTB scapular retractions 3x10 (cues for form) 4: posterior shoulder rolls seated 2x10 5: left levator stretch 15 sec x3 6: thoracic extension over edge of chair x 10 with 3 second holds 7: Attempted pect stretch, stopped due to pt not feeling a strtech and having discomfort in low back Skilled Intervention: Patient was educated in proper exercise technique and purpose for exercises. Skilled judgment was provided in selection of appropriate interventions. Correct performance of therapeutic exercises was facilitated with verbal and visual cuing. Manual Therapy: Soft Tissue Mobilization: STM and trigger point to L UT x 5 minutes Manual Traction: cervical lying supine with wedge and pillow , pull to tolerance 30 sec on and 10 sec off. x 8 miniutes (sore after ttsction, but not painful) Skilled Intervention: Manual skills to improve joint mobility, ROM, and decrease pain. Utilized anatomy knowledge of the therapist, and assessment of patient's response to intervention. Self-Assisted Management: 1: *Discussed modifications for driving so arms are not elevated as high and to hel pdecreased painin posterior shoulders/ cervical spine at approximately C7. Skilled Intervention: Skilled judgment in the selection of proper modification for activity of daily living/home management based on clinical presentation, deficits, and needs. Billing Therapeutic Exercise Treatment Minutes: 25 Manual TherapyTreatment Minutes: 13 Self-Care/Home Management Treatment Minutes: 3 Total Treatment Time Minutes (timed/untimed): 41 Martha Maher PTA/Bethanie Cline PT documented in this encounterOhiohealth [facility]11-17-2022 Instructions* Patient Instructions* Eloisa Espinal MD - 12/29/2021 11:46 AM EST Cardiologists in [place]: Dr. Heladio Garcia and Dr. Asad Agrawal documented in this encounterOhiohealth Van Wert [facility]11-17-2022 History of Present illness Narrative* Eloisa Espinal MD - 12/29/2021 11:20 AM EST Chief Complaint Follow up HPI Jayden Craig is a 80 year old male who presents here today for 6 month follow up. No bowel, GI, or urinary issues. Using a stool softener to keep bowels regular. Gets up 1-2 x a night to urinate. Follows with Dr. Boothe thoracic surgeon for diaphragmatic hernia and Dr. Lynn for hiatal hernia. 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 CAD/Lipid: Taking Zocor 80 mg daily, tolerating well. Also on 81 mg Aspirin per day. Tries to watchdiet and exercise a few days a week. Follows with Cardio, Dr. Zayas. Thyroid: Is on Levoxyl 200 mcg daily. No missed dosages. HTN & A-fib: Checking BP at home occ. No chest pains, dizziness, or SOB. Taking Lopressor 25 mgBID and Lisinopril 10 mg daily. Follows with [facility] Dr. Zayas. Pain: Cervical radiculopathy; follows with Ortho Dr. Sun and has been doing PT. Has been seen byPain Management Dr. Maldonado in past and had injections and also seen by Dr. [facility] who referred him to Dr. Molina for injections but pt declined as they have not helped in the past. Asthma: SOB with exertion but managed. Using Symbicort 1-2 x a day, Advair BID. Periumbilical hernia, does not bother him Needs new Work And Family Life Consultant; would like to stay in [place]. Past medical history, appointments, medications, allergies reviewed. Previous Medical History PAST MEDICAL HISTORY Diagnosis Date Escobedo's esophagus 1989 Hiatal hernia 1989 History of coronary artery bypass graft 07/24/2018 VASQUES in situ mammary end to side mid LAD, Vein graft ascending aorta end to side RCA, Vein graft ascending aorta end to side obtuse marginal 1 Peptic ulcer, unspecified site, unspecified as acute or chronic, without mention of hemorrhage, perforation, or obstruction 2004 Unspecified hypothyroidism 1989 Previous Surgical History PAST SURGICAL HISTORY Procedure Laterality Date APPENDECTOMY COLONOSCOPY FLX DX W/COLLJ SPEC WHEN PFRMD 06/28/2004 Colonoscopy COLONOSCOPY FLX DX W/COLLJ SPEC WHEN PFRMD 08/06/2015 Colonoscopy CORONARY ARTERY BYPASS GRAFT HX 07/24/2018 VASQUES in situ mammary end to side mid LAD, Vein graft ascending aorta end to side RCA, Vein graft ascending aorta end to side obtuse marginal 1. EGD N/A 06/29/2020 Dr. Keating EGD TRANSORAL BIOPSY SINGLE/MULTIPLE 08/30/2009 EGD TRANSORAL BIOPSY SINGLE/MULTIPLE 08/23/2011 repeat in 2 years ESOPHAGOGASTRODUODENOSCOPY TRANSORAL DIAGNOSTIC 10/06/1998 EGD ESOPHAGOGASTRODUODENOSCOPY TRANSORAL DIAGNOSTIC 01/29/2000 EGD ESOPHAGOGASTRODUODENOSCOPY TRANSORAL DIAGNOSTIC 08/04/2003 EGD ESOPHAGOGASTRODUODENOSCOPY TRANSORAL DIAGNOSTIC 08/29/2007 EGD ESOPHAGOGASTRODUODENOSCOPY TRANSORAL DIAGNOSTIC 08/28/2013 EGD ESOPHAGOGASTRODUODENOSCOPY TRANSORAL DIAGNOSTIC 10/08/2017 EGD HEART SURGERY HX LAPAROSCOPIC CHOLECYSTECTOMY 12/15/2018 PAST SURGICAL HISTORY OF N/A 04/25/2017 Back surgery done at [facility], [address] [place] [address] and cleaned up arthritis Family History FAMILY HISTORY Problem Relation Age of Onset Emphysema Father Emphysema Mother other (no cardiac hx per pt) Other Patient Allergies ALLERGIES Allergen Reactions Lipitor [Atorvastat* Intolerance myalgias Omnicef [Cefdinir] Diarrhea Zithromax [Azithrom* Current Medications Current Outpatient Medications on File Prior to Visit Medication Sig predniSONE (DELTASONE) 10 mg tablet Take 6 pills (all at once) on day 1, 5 pills on day 2, 4 pills on day 3, 3 pills on day 4, 2 pills on day 5, and 1 pill on day 6. aspirin, enteric coated (ASPIRIN, ENTERIC COATED) 325 mg EC tablet Take 1 tablet by mouth once daily. meloxicam (MOBIC) 15 mg tablet Take 1 tablet by mouth once daily. With food. (Patient not taking: No sig reported) fluticasone-salmeterol HFA (ADVAIR HFA) 115-21 mcg/actuation inhaler Inhale 2 Puffs as instructed twice daily. Rinse mouth after use. budesonide-formoterol (SYMBICORT) 160-4.5 mcg/actuation inhaler Inhale 2 Puffs as instructed twice daily. (Patient not taking: Reported on 12/07/2021) metoprolol tartrate, short acting, (LOPRESSOR) 25 mg tablet Take 1 tablet by mouth twice daily. levothyroxine (LEVOXYL) 200 mcg tablet Take 1 tablet by mouth once daily. Take on empty stomach. For Thyroid. lisinopril (ZESTRIL, PRINIVIL) 10 mg tablet Take 1 tablet by mouth once daily. simvastatin (ZOCOR) 80 mg tablet Take 1 tablet by mouth daily at bedtime. pantoprazole DR (PROTONIX) 40 mg tablet Take 1 tablet by mouth twice daily. Take on empty stomach, 1/2 hr before meal. magnesium oxide (MAG-OX) 400 mg (241.3 mg magnesium) tablet Take 1 tablet by mouth once daily. fluticasone (FLONASE) 50 mcg/actuation nasal spray USE 2 SPRAYS IN EACH NOSTRIL ONCE DAILY. RINSE MOUTH AFTER USE. aspirin 325 mg tablet Take 1 tablet by mouth once daily. (Patient not taking: Reported on 12/07/2021) senna-docusate (SENNA-S) 8.6-50 mg per tablet Take 1 tablet by mouth once daily. acetaminophen (TYLENOL) 325 mg tablet Take 2 tablets by mouth every 4 hours as needed. THERAPEUTIC MULTIVITAMIN TAB one tab daily No current facility-administered medications on file prior to visit. Social History Social History Tobacco Use Smoking status: Former Packs/day: 0.50 Years: 27.00 Pack years: 13.50 Types: Cigarettes Quit date: 1981 Years since quittin.8 Smokeless tobacco: Never Tobacco comments: occasional former pipe smoker Vaping Use Vaping Use: Never used Substance Use Topics Alcohol use: Yes Alcohol/week: 5.0 standard drinks Types: 2 Cans of Beer (12oz) per week Comment: 2-3 cans of beer per week Drug use: No EXAM: There were no vitals taken for this visit. General Appearance: Well appearing, alert, in no acute distress, well-hydrated, well nourished.. CV: RRR Lungs: Lungs clear to auscultation. No wheezing, rhonchi, rales.. Abdomen: small right sided periumbical hernia, easily reducible. Health Maintenance List SHINGRIX VACCINE(1 of 2) Never done DTAP,TDAP,TD(3 - Td or Tdap) due on 05/29/2017 ADVANCE DIRECTIVE DISCUSSION Never done DEPRESSION ASSESSMENT Never done HEPATITIS C SCREENING due on 12/31/2021 LDL CHOLESTEROL due on 06/28/2022 ANNUAL PCP TEAM CHRONIC DISEASE VISIT due on 11/02/2022 BP CONTROLLED (<130/80) due on 12/07/2022 DIABETES SCREEN due on 06/28/2024 SPIROMETRY Completed INFLUENZA Completed COVID-19 VACCINE Completed PNEUMOCOCCAL: 65+ Completed Data reviewed Appointment on 12/26/2021 Component Date Value Cholesterol, Total 12/26/2021 147 Triglyceride 12/26/2021 76 HDL Cholesterol 12/26/2021 71 Non HDL Cholesterol 12/26/2021 76 Fasting Time 12/26/2021 11 VLDL Cholesterol 12/26/2021 15 TC:HDL Ratio 12/26/2021 2.07 LDL Cholesterol 12/26/2021 61 LDL:HDL Ratio 12/26/2021 0.86 Protein, Total 12/26/2021 5.9 (A) Albumin 12/26/2021 4.1 Calcium, Total 12/26/2021 9.0 Bilirubin, Total 12/26/2021 0.6 Alkaline Phosphatase 12/26/2021 66 AST 12/26/2021 26 ALT 12/26/2021 21 Glucose 12/26/2021 111 (A) BUN 12/26/2021 12 Creatinine 12/26/2021 1.05 Sodium 12/26/2021 133 (A) Potassium 12/26/2021 4.4 Chloride 12/26/2021 99 CO2 12/26/2021 24 Anion Gap 12/26/2021 10 Estimated Glomerular Heri* 12/26/2021 72 TSH 12/26/2021 1.910 WBC 12/26/2021 6.54 RBC 12/26/2021 3.90 (A) Hemoglobin 12/26/2021 11.8 (A) Hematocrit 12/26/2021 35.7 (A) MCV 12/26/2021 91.5 MCH 12/26/2021 30.3 MCHC 12/26/2021 33.1 RDW-CV 12/26/2021 16.6 (A) Platelet Count 12/26/2021 196 MPV 12/26/2021 10.9 Neut% 12/26/2021 74.2 Abs Neut 12/26/2021 4.86 Lymph% 12/26/2021 10.4 Abs Lymph 12/26/2021 0.68 (A) Story% 12/26/2021 11.5 Abs Story 12/26/2021 0.75 Eosin% 12/26/2021 2.6 Abs Eosin 12/26/2021 0.17 Baso% 12/26/2021 0.8 Abs Baso 12/26/2021 0.05 Immature Gran % 12/26/2021 0.5 Abs Immature Gran 12/26/2021 0.03 NRBC 12/26/2021 0.0 Absolute nRBC 12/26/2021 <0.01 Diff Type 12/26/2021 Auto ASSESSMENT/PLAN: 1. Essential hypertension - ICD9: 401.9, ICD10: I10 (primary diagnosis) - good control - Continue current medication(s) - Recommended regular aerobic exercise. - Recommend home blood pressure monitoring, to bring results in on next visit - Goal of BP <140/90 - CBC 2. Mixed hyperlipidemia - ICD9: 272.2, ICD10: E78.2 - good control - Continue current medication. - COMP METABOLIC PANEL - LIPID PANEL BASIC 3. Paroxysmal atrial fibrillation (HCC) - ICD9: 427.31, ICD10: I48.0 - CBC 4. Hx of CABG - ICD9: V45.81, ICD10: Z95.1 Refer to new Work And Family Life Consultant 5. Mild intermittent asthma without complication - ICD9: 493.90, ICD10: J45.20 6. Acquired hypothyroidism - ICD9: 244.9, ICD10: E03.9 - Instructed patient on importance of taking on an empty stomach either first thing in the morning or at bedtime. - continue current dose of Synthroid 200 mcg - TSH BLD 7. Escobedo's esophagus determined by biopsy - ICD9: 530.85, ICD10: K22.70 Follow with GI Monitor umbilical hernia Follow up in 6 months Medical Decision Making: Problems: Moderate: 2+ stable chronic illnesses Data: Unique test result(s) reviewed: 3+ Unique test(s) ordered: 3+ Risk: Moderate: Drug management Medical Decision Making Level: 4 - Moderate Eloisa Espinal MD documented in this encounterOhio[facility] History of Present illness Narrative* Rama Smiley, PT - 2021 9:31 AM EST Episode Visit Count: 5 Therapist That Will Accept/Oversee The Plan Of Care: Bethanie Cline PT Start of Care Date: 12/08/21 Onset Date: 09/27/21 Plan of Care Certification Date: 12/08/21 Next Certification Due Date: 01/19/22 Patient Identified by Name and Date of : Yes REHABILITATION AND SPORTS THERAPY PHYSICAL THERAPY TREATMENT NOTE ASSESSMENT: Jayden Craig tolerated the session with decreased symptoms. He demonstrated difficulty with compensations with neck stretches. The patient will continue to benefit from ongoing skilled physical therapy to progress toward set goals. PLAN FOR NEXT VISIT: SUBJECTIVE: Patient Reason for Visit: Pt reports he is feeling well today. Pt states his pain todayis due to driving here. Pt states manual traction was the lopez and that's what really improved his symptoms. Pt had discomfrot for baout an hour after last session, but after stated it's like all his pain disappeared. Pain: Pain Pain Level: 2 Pain Location: Scapula - Left;Arm - Left Description: Tingling Frequency: Continuous OBJECTIVE MEASURES WITH LEVEL OF FUNCTION: Pt had no pain upon sitting up after manual cervical traction TREATMENT: Therapeutic Exercise: 1: right LF 15 sec hold x3 cues and mirror used for form 2: right rotation 15 sec hold x3 3: green rep band scapular retraction 2x10 cues for form 4: posterior shoulder rolls seated 2x10 5: left levator stretch 15 sec x3 Skilled Intervention: Patient was educated in proper exercise technique and purpose for exercises. Skilled judgment was provided in selection of appropriate interventions. Correct performance of therapeutic exercises was facilitated with verbal and visual cuing. Manual Therapy: Soft Tissue Mobilization: STM with lacrosse ball push to tolerance with trigger point release to leavator and rhomboid area. Push to tolerance x5 min. . Manual Traction: cervical lying supine with wedge and pillow , pull to tolerance 30 sec on and 10 sec off. x 10 miniutes (sore after ttsction, but not painful) Skilled Intervention: Manual skills to improve joint mobility, ROM, and decrease pain. Utilized anatomy knowledge of the therapist, and assessment of patient's response to intervention. Billing Therapeutic Exercise Treatment Minutes: 25 Manual TherapyTreatment Minutes: 15 Total Treatment Time Minutes (timed/untimed): 40 ALEXA Thompson, PT documented in this encounterOhio[facility]11-04-2022 History of Present illness Narrative* Bethanie Cline, PT - 12/16/2021 9:43 AM EDT Episode Visit Count: 3 Therapist That Will Accept/Oversee The Plan Of Care: Bethanie Cline PT Start of Care Date: 12/08/21 Onset Date: 09/27/21 Plan of Care Certification Date: 12/08/21 Next Certification Due Date: 01/19/22 Patient Identified by Name and Date of : Yes REHABILITATION AND SPORTS THERAPY PHYSICAL THERAPY TREATMENT NOTE ASSESSMENT: Jayden Craig tolerated the session with no issues. He demonstrated improvements in more centralization of sx. Most pain along medial border of scapula which improves with STM. The patient will continue to benefit from ongoing skilled physical therapy to progress toward set goals. PLAN FOR NEXT VISIT: continue with STM as needed SUBJECTIVE: Patient Reason for Visit: Pt reports that he is still improving. Still a little tingling in hand Pain: Pain Pain Level: 4 (mild tingling dorsum of hand 2/10, scapula) Pain Location: Scapula - Left;Arm - Left Description: Aching;Tingling Post Treatment Pain Post Treatment Pain Level: Better Post Treatment Pain Location: Scapula - Left OBJECTIVE MEASURES WITH LEVEL OF FUNCTION: increased cervical rotation ROM noted TREATMENT: Therapeutic Exercise: 1: rightLF 15 sec hold x3 cues and mirror used for form 2: right rotation 15 sec hold x3 3: green rep band scapular retraction 2x10 cues for form 4: posterior shoulder rolls seated 2x10 5: left levator stretch 15 sec x3 Skilled Intervention: Patient was educated in proper exercise technique and purpose for exercises. Reviewed and educated patient on additions/changes for home exercise program . Skilled judgment was provided in selection of appropriate interventions. Provided written instruction for home exercise program to facilitate proper performance and compliance. Correct performance of therapeutic exercises was facilitated with verbal and visual cuing. Patient education as noted. Manual Therapy: Soft Tissue Mobilization: STM with lacrosse ball push to tolerance with trigger point release to leavator and rhomboid area. Push to tolerance x10 min. Skilled Intervention: Manual skills to improve joint mobility, ROM, and decrease pain. Utilized anatomy knowledge of the therapist, and assessment of patient's response to intervention. Home Exercise Program Assigned: 1: add levator stretch and posterior shoulder rolls Billing Therapeutic Exercise Treatment Minutes: 20 Manual TherapyTreatment Minutes: 10 Total Treatment Time Minutes (timed/untimed): 30 Bethanie Cline PT documented in this encounterOhio[facility]11-02-2022 History of Present illness Narrative* Bethanie Cline, PT - 12/14/2021 2:46 PM EDT Episode Visit Count: 2 Therapist That Will Accept/Oversee The Plan Of Care: Bethanie Cline PT Start of Care Date: 12/08/21 Onset Date: 09/27/21 Plan of Care Certification Date: 12/08/21 Next Certification Due Date: 01/19/22 Patient Identified by Name and Date of : Yes REHABILITATION AND SPORTS THERAPY PHYSICAL THERAPY TREATMENT NOTE ASSESSMENT: Jayden Craig tolerated the session with no issues. He demonstrated improvements in pain and UE sx. The patient will continue to benefit from ongoing skilled physical therapy to progresstoward set goals. PLAN FOR NEXT VISIT: add levator stretch. Consider shoulder rolls SUBJECTIVE: Patient Reason for Visit: Pt notes that he has 6 more days of prednisone which is helpful. still has a little tingling pain from elbow to hand. Pain in the scapular area. Overall able to drive with less pain . Pain: Pain Pain Level: 3 Pain Location: Scapula - Left;Arm - Left Description: Aching;Tingling Frequency: Continuous Post Treatment Pain Post Treatment Pain Level: Better Post Treatment Pain Location: Arm - Left Post Treatment Symptoms: less tingling in arm OBJECTIVE MEASURES WITH LEVEL OF FUNCTION: Pt with improvement of sx after manual therapy. Still with slight left LF of head with sitting posture TREATMENT: Therapeutic Exercise: 1: rightLF 15 sec hold x3 cues and mirror used for form 2: right rotation 15 sec hold x3 3: green rep band scapular retraction 2x10 cues for form 4: green rep band trunk flexion with upright head posture 1x10 5: seated trunk flexion wtih upright head posture Skilled Intervention: Patient was educated in proper exercise technique and purpose for exercises. Reviewed and educated patient on additions/changes for home exercise program as above (*). Provided written instruction for home exercise program to facilitate proper performance and compliance. Patient education as noted. Manual Therapy: Soft Tissue Mobilization: STM with lacrosse ball push to tolerance with trigger point release to leavator and rhomboid area. Push to tolerance x10 min. Skilled Intervention: Manual skills to improve joint mobility, ROM, and decrease pain. Utilized anatomy knowledge of the therapist, and assessment of patient's response to intervention. Home Exercise Program Assigned: 1: ok to add green rep band trunk flexion and scapular retraction and seated trunk flexion for low back Billing Therapeutic Exercise Treatment Minutes: 20 Manual TherapyTreatment Minutes: 10 Total Treatment Time Minutes (timed/untimed): 30 Bethanie Cline PT documented in this encounterOhio[facility]11-01-2022 Miscellaneous Notes* Telephone Encounter - Leah Curiel RN - 12/13/2021 10:35 AM EDT Called and spoke with patient to let him know a new Rx was sent to pharmacy. Patient expressed understanding. documented in this encounterOhio[facility]10-27-2022 History of Past illness Narrative* Problem Noted Date Resolved Date Cervical radiculopathy 12/08/2021 2 Left arm pain 12/08/2021 02/01/2022 Ileus 12/20/2018 12/24/2018 Acute blood loss anemia 12/20/2018 12/25/19 19 Acute cholecystitis 12/15/2018 12/24/2018 Transition of care performed with sharing of clinical summary 07/26/2018 09/19/2018 Overview: Indication for Surgery: CAD Preop LVEF: 59% RVF: Normal Postop LVEF: Normal RVF: Normal Cards: Moudgil EKG: NSR PMH/PSH: Hypothyroid, diverticulitis, GIB, PUD, appendectomy, former smoker, GERD, Barretts, esophageal stricture (9mm on 05/2018 EGD note below) and large hiatal hernia. Airway Difficulty: Grade III view (only epiglottis visible) - No special instrumentation Pacing Wires: Ventricular: Pulled 07/27 Chronological List of Surgeries and Major Events (Diagnosis): (Surgeries in bold characters) 07/24/2018: CABG x 3 (VASQUES to LAD, SVG to RCA, SVG to OM1) OR course: Coagulopathy/bleeding - transfused multiple products in OR CVICU: Hypotension requiring Levo gtt for MAP goal 75-85. A/P: Wires pulled 07/27, MS ohara drain has been removed too. s/p CABG - ASA, BB, statin intolerance (D/w patient and was perhaps 20 years ago his primary MD started a statin. He reports maybe dizziness? I suggested perhaps muscle aches but he is not sure. He denies any anaphylaxis or needing to be hospitalized for any med adverse reactions - will start simvastatin 20mg po daily. Patient aware of S/Sx to report and placed on discharge medication sheet.) GERD/Esophageal strictures s/p dilations, did not do a LUCRECIA in the OR, NO LUCRECIA post-op. Dispo - 77yo male from [place], [place]. CM following. F/U with OPD and Cards made. For D/C today. Discharge Planning: Anticipated Discharge Date: 07/29 Barriers to Discharge: No Barriers to Discharge, Other: NA Care Management Discharge Needs: Needs Prior to Discharge: OT/PT Evaluation Obesity, Class I, BMI 30-34.9 07/26/2018 Overview: History: POA Assessment: Body mass index is 28.62 kg/m . Plan: nutrition consult and lifestyle modification Difficult airway for intubation 07/24/2018 07/29/2018 Overview: Fairly easy mask ventilation. Intubation was difficult with Mac 3 blade. only the epiglottis was visualized, but a blind intubation was successful. Postoperative pain 07/24/2018 07/29/2018 Overview: History: Post-op Assessment: Controlled Plan: Continue scheduled daily Lidoderm patches; PRN Tylenol and Oxycodone. Atelectasis 07/24/2018 07/26/2018 Overview: Grade 3 airway A/P: Postop bibasilar. Elevated right hemidiaphragm OOB to chair. BPH. Postoperative hypotension 07/24/20182018 Overview: A/P: Arrived on Levo, wean to goal MAP 75-85. Coagulopathy 07/24/2018 07/25/2018 Overview: A/P: Coagulopathy/bleeding intraop, transfused 2plts/2FFP/5PRBC in OR, f/u coags and transfuse as needed. Hypovolemia 07/24/2018 07/25/2018 Overview: A/P: Postop fluid shifts. Volume resuscitate as needed. Pre-op testing 07/23/2018 09/19/2018 Overview: [facility] PRE[facility] Surgeon: Thom Soto M.D. Informed Consent Completed: Yes STS Score: CAD: Yes - CAD on Problem List: Yes Is intended procedure a CABG: Yes - is a beta getachew ordered? Yes H & P completed: Yes PA/LAT: Completed CT: Completed Abnormal Follow-up for these incidentally detected lung nodules with a chest CT exam is recommended in 3-6 months. If stable on follow-up imaging, a repeat chest CT exam in 12 months (15-18 months from the initial exam) is recommended MRI: N/A LE US: Completed Cath: Yes - reviewed: Yes EKG: Completed Is patient on Amiodarone? Echo:Pending today EF %: pending today PI's: Completed Carotid: Completed Mapping: Completed Dental: N/A, CABG PFT's: Completed Recent Labs 07/23/18 0835 WBC 8.10 HB 9.3* HCT 31.0* PLT 258 INR 1.0 CREAT 0.94 UA: Normal HCG:N/A ABO/ABO Confirmed: Yes, Positive antibodies Blood ordered: Yes Willing to accept blood: SA Swab: Yes - results: Pending Last Dose of Anticoagulation: Aspirin 81 mg continue Op Note: N/A Pacemaker Check: N/A Implants: no Consults: none DM: No Cardiac Surgical prep: N/A SIGNATURE: Rosalia Prakash APRN.CNP DATE of SERVICE: 07/23/2018 TIME of SERVICE: 2:40 PM CHECKED BY: amber Discharge planning issues 07/23/20182018 Overview: 77 y o m here for CABG. Resides in [place]. to [place] for 55 years. Son Harvey is supportive. Await therapy eval. Chronic left-sided low back pain with left-sided sciatica 12/09/2015 08/18/2021 Esophagitis, unspecified 08/29/2007 011 Unspecified hemorrhoids without mention of compl ication 10/20/2010 Overview: Hemorrhoids Diverticulosis of colon (without mention of hemo rrhage) 10/20/2010 Overview: Diverticulosis Peptic ulcer, unspecified si te, unspecified as acute or chronic, without mention of hemorrhage, perforation, or obstruction 05/30/2007 documented as of this encounter (statuses as of 02/01/2022) [facility] History of Past illness Narrative* Problem Noted Date Resolved Date Cervical radiculopathy 12/08/2021 2 Left arm pain 12/08/2021 02/01/2022 Ileus 12/20/2018 12/24/2018 Acute blood loss anemia 12/20/2018 12/25/19 19 Acute cholecystitis 12/15/2018 12/24/2018 Transition of care performed with sharing of clinical summary 07/26/2018 09/19/2018 Overview: Indication for Surgery: CAD Preop LVEF: 59% RVF: Normal Postop LVEF: Normal RVF: Normal Cards: Moudgil EKG: NSR PMH/PSH: Hypothyroid, diverticulitis, GIB, PUD, appendectomy, former smoker, GERD, Barretts, esophageal stricture (9mm on 05/2018 EGD note below) and large hiatal hernia. Airway Difficulty: Grade III view (only epiglottis visible) - No special instrumentation Pacing Wires: Ventricular: Pulled 07/27 Chronological List of Surgeries and Major Events (Diagnosis): (Surgeries in bold characters) 07/24/2018: CABG x 3 (VASQUES to LAD, SVG to RCA, SVG to OM1) OR course: Coagulopathy/bleeding - transfused multiple products in OR CVICU: Hypotension requiring Levo gtt for MAP goal 75-85. A/P: Wires pulled 07/27, MS ohara drain has been removed too. s/p CABG - ASA, BB, statin intolerance (D/w patient and was perhaps 20 years ago his primary MD started a statin. He reports maybe dizziness? I suggested perhaps muscle aches but he is not sure. He denies any anaphylaxis or needing to be hospitalized for any med adverse reactions - will start simvastatin 20mg po daily. Patient aware of S/Sx to report and placed on discharge medication sheet.) GERD/Esophageal strictures s/p dilations, did not do a LUCRECIA in the OR, NO LUCRECIA post-op. Dispo - 77yo male from [place], [place]. CM following. F/U with OPD and Cards made. For D/C today. Discharge Planning: Anticipated Discharge Date: 07/29 Barriers to Discharge: No Barriers to Discharge, Other: NA Care Management Discharge Needs: Needs Prior to Discharge: OT/PT Evaluation Obesity, Class I, BMI 30-34.9 07/26/2018 Overview: History: POA Assessment: Body mass index is 28.62 kg/m . Plan: nutrition consult and lifestyle modification Difficult airway for intubation 07/24/2018 07/29/2018 Overview: Fairly easy mask ventilation. Intubation was difficult with Mac 3 blade. only the epiglottis was visualized, but a blind intubation was successful. Postoperative pain 07/24/2018 07/29/2018 Overview: History: Post-op Assessment: Controlled Plan: Continue scheduled daily Lidoderm patches; PRN Tylenol and Oxycodone. Atelectasis 07/24/2018 07/26/2018 Overview: Grade 3 airway A/P: Postop bibasilar. Elevated right hemidiaphragm OOB to chair. BPH. Postoperative hypotension 07/24/20182018 Overview: A/P: Arrived on Levo, wean to goal MAP 75-85. Coagulopathy 07/24/2018 07/25/2018 Overview: A/P: Coagulopathy/bleeding intraop, transfused 2plts/2FFP/5PRBC in OR, f/u coags and transfuse as needed. Hypovolemia 07/24/2018 07/25/2018 Overview: A/P: Postop fluid shifts. Volume resuscitate as needed. Pre-op testing 07/23/2018 09/19/2018 Overview: [facility] PRE-OP CHECKLIST Surgeon: Thom Soto M.D. Informed Consent Completed: Yes STS Score: CAD: Yes - CAD on Problem List: Yes Is intended procedure a CABG: Yes - is a beta getachew ordered? Yes H & P completed: Yes PA/LAT: Completed CT: Completed Abnormal Follow-up for these incidentally detected lung nodules with a chest CT exam is recommended in 3-6 months. If stable on follow-up imaging, a repeat chest CT exam in 12 months (15-18 months from the initial exam) is recommended MRI: N/A LE US: Completed Cath: Yes - reviewed: Yes EKG: Completed Is patient on Amiodarone? Echo:Pending today EF %: pending today PI's: Completed Carotid: Completed Mapping: Completed Dental: N/A, CABG PFT's: Completed Recent Labs 07/23/18 0835 WBC 8.10 HB 9.3* HCT 31.0* PLT 258 INR 1.0 CREAT 0.94 UA: Normal HCG:N/A ABO/ABO Confirmed: Yes, Positive antibodies Blood ordered: Yes Willing to accept blood: SA Swab: Yes - results: Pending Last Dose of Anticoagulation: Aspirin 81 mg continue Op Note: N/A Pacemaker Check: N/A Implants: no Consults: none DM: No Cardiac Surgical prep: N/A SIGNATURE: Rosalia Prakash APRN.CNP DATE of SERVICE: 07/23/2018 TIME of SERVICE: 2:40 PM CHECKED BY: amber Discharge planning issues 07/23/20182018 Overview: 77 y o m here for CABG. Resides in [place]. to [place] for 55 years. Son Harvey is supportive. Await therapy eval. Chronic left-sided low back pain with left-sided sciatica 12/09/2015 08/18/2021 Esophagitis, unspecified 08/29/2007 011 Unspecified hemorrhoids without mention of compl ication 10/20/2010 Overview: Hemorrhoids Diverticulosis of colon (without mention of hemo rrhage) 10/20/2010 Overview: Diverticulosis Peptic ulcer, unspecified si te, unspecified as acute or chronic, without mention of hemorrhage, perforation, or obstruction 05/30/2007 documented as of this encounter (statuses as of 02/15/2022) [facility]10-27-2022 History of Past illness Narrative* Problem Noted Date Resolved Date Cervical radiculopathy 12/08/2021 2 Left arm pain 12/08/2021 02/01/2022 Ileus 12/20/2018 12/24/2018 Acute blood loss anemia 12/20/2018 12/25/19 19 Acute cholecystitis 12/15/2018 12/24/2018 Transition of care performed with sharing of clinical summary 07/26/2018 09/19/2018 Overview: Indication for Surgery: CAD Preop LVEF: 59% RVF: Normal Postop LVEF: Normal RVF: Normal Cards: [place] EKG: NSR PMH/PSH: Hypothyroid, diverticulitis, GIB, PUD, appendectomy, former smoker, GERD, Barretts, esophageal stricture (9mm on 05/2018 EGD note below) and large hiatal hernia. Airway Difficulty: Grade III view (only epiglottis visible) - No special instrumentation Pacing Wires: Ventricular: Pulled 07/27 Chronological List of Surgeries and Major Events (Diagnosis): (Surgeries in bold characters) 07/24/2018: CABG x 3 (VASQUES to LAD, SVG to RCA, SVG to OM1) OR course: Coagulopathy/bleeding - transfused multiple products in OR CVICU: Hypotension requiring Levo gtt for MAP goal 75-85. A/P: Wires pulled 07/27, MS mayda drain has been removed too. s/p CABG - ASA, BB, statin intolerance (D/w patient and was perhaps 20 years ago his primary MD started a statin. He reports maybe dizziness? I suggested perhaps muscle aches but he is not sure. He denies any anaphylaxis or needing to be hospitalized for any med adverse reactions - will start simvastatin 20mg po daily. Patient aware of S/Sx to report and placed on discharge medication sheet.) GERD/Esophageal strictures s/p dilations, did not do a LUCRECIA in the OR, NO LUCRECIA post-op. Dispo - 77yo male from [place], [place]. CM following. F/U with OPD and Cards made. For D/C today. Discharge Planning: Anticipated Discharge Date: 07/29 Barriers to Discharge: No Barriers to Discharge, Other: NA Care Management Discharge Needs: Needs Prior to Discharge: OT/PT Evaluation Obesity, Class I, BMI 30-34.9 07/26/2018 Overview: History: POA Assessment: Body mass index is 28.62 kg/m . Plan: nutrition consult and lifestyle modification Difficult airway for intubation 07/24/2018 07/29/2018 Overview: Fairly easy mask ventilation. Intubation was difficult with Mac 3 blade. only the epiglottis was visualized, but a blind intubation was successful. Postoperative pain 07/24/2018 07/29/2018 Overview: History: Post-op Assessment: Controlled Plan: Continue scheduled daily Lidoderm patches; PRN Tylenol and Oxycodone. Atelectasis 07/24/2018 07/26/2018 Overview: Grade 3 airway A/P: Postop bibasilar. Elevated right hemidiaphragm OOB to chair. BPH. Postoperative hypotension 07/24/20182018 Overview: A/P: Arrived on Levo, wean to goal MAP 75-85. Coagulopathy 07/24/2018 07/25/2018 Overview: A/P: Coagulopathy/bleeding intraop, transfused 2plts/2FFP/5PRBC in OR, f/u coags and transfuse as needed. Hypovolemia 07/24/2018 07/25/2018 Overview: A/P: Postop fluid shifts. Volume resuscitate as needed. Pre-op testing 07/23/2018 09/19/2018 Overview: [facility] Surgeon: Thom Soto M.D. Informed Consent Completed: Yes STS Score: CAD: Yes - CAD on Problem List: Yes Is intended procedure a CABG: Yes - is a beta getachew ordered? Yes H & P completed: Yes PA/LAT: Completed CT: Completed Abnormal Follow-up for these incidentally detected lung nodules with a chest CT exam is recommended in 3-6 months. If stable on follow-up imaging, a repeat chest CT exam in 12 months (15-18 months from the initial exam) is recommended MRI: N/A LE US: Completed Cath: Yes - reviewed: Yes EKG: Completed Is patient on Amiodarone? Echo:Pending today EF %: pending today PI's: Completed Carotid: Completed Mapping: Completed Dental: N/A, CABG PFT's: Completed Recent Labs 07/23/18 0835 WBC 8.10 HB 9.3* HCT 31.0* PLT 258 INR 1.0 CREAT 0.94 UA: Normal HCG:N/A ABO/ABO Confirmed: Yes, Positive antibodies Blood ordered: Yes Willing to accept blood: SA Swab: Yes - results: Pending Last Dose of Anticoagulation: Aspirin 81 mg continue Op Note: N/A Pacemaker Check: N/A Implants: no Consults: none DM: No Cardiac Surgical prep: N/A SIGNATURE: Rosalia Prakash APRN.CNP DATE of SERVICE: 07/23/2018 TIME of SERVICE: 2:40 PM CHECKED BY: amber Discharge planning issues 07/23/20182018 Overview: 77 y o m here for CABG. Resides in [place]. to [place] for 55 years. Son Harvey is supportive. Await therapy eval. Chronic left-sided low back pain with left-sided sciatica 12/09/2015 08/18/2021 Esophagitis, unspecified 08/29/2007 011 Unspecified hemorrhoids without mention of compl ication 10/20/2010 Overview: Hemorrhoids Diverticulosis of colon (without mention of hemo rrhage) 10/20/2010 Overview: Diverticulosis Peptic ulcer, unspecified si te, unspecified as acute or chronic, without mention of hemorrhage, perforation, or obstruction 05/30/2007 documented as of this encounter (statuses as of 03/08/2022) [facility]10-27-2022 History of Past illness Narrative* Problem Noted Date Resolved Date Cervical radiculopathy 12/08/2021 2 Left arm pain 12/08/2021 02/01/2022 Ileus 12/20/2018 12/24/2018 Acute blood loss anemia 12/20/2018 12/25/19 19 Acute cholecystitis 12/15/2018 12/24/2018 Transition of care performed with sharing of clinical summary 07/26/2018 09/19/2018 Overview: Indication for Surgery: CAD Preop LVEF: 59% RVF: Normal Postop LVEF: Normal RVF: Normal Cards: [place] EKG: NSR PMH/PSH: Hypothyroid, diverticulitis, GIB, PUD, appendectomy, former smoker, GERD, Barretts, esophageal stricture (9mm on 05/2018 EGD note below) and large hiatal hernia. Airway Difficulty: Grade III view (only epiglottis visible) - No special instrumentation Pacing Wires: Ventricular: Pulled 07/27 Chronological List of Surgeries and Major Events (Diagnosis): (Surgeries in bold characters) 07/24/2018: CABG x 3 (VASQUES to LAD, SVG to RCA, SVG to OM1) OR course: Coagulopathy/bleeding - transfused multiple products in OR CVICU: Hypotension requiring Levo gtt for MAP goal 75-85. A/P: Wires pulled 07/27, MS mayda drain has been removed too. s/p CABG - ASA, BB, statin intolerance (D/w patient and was perhaps 20 years ago his primary MD started a statin. He reports maybe dizziness? I suggested perhaps muscle aches but he is not sure. He denies any anaphylaxis or needing to be hospitalized for any med adverse reactions - will start simvastatin 20mg po daily. Patient aware of S/Sx to report and placed on discharge medication sheet.) GERD/Esophageal strictures s/p dilations, did not do a LUCRECIA in the OR, NO LUCRECIA post-op. Dispo - 77yo male from [place], [place]. CM following. F/U with OPD and Cards made. For D/C today. Discharge Planning: Anticipated Discharge Date: 07/29 Barriers to Discharge: No Barriers to Discharge, Other: NA Care Management Discharge Needs: Needs Prior to Discharge: OT/PT Evaluation Obesity, Class I, BMI 30-34.9 07/26/2018 Overview: History: POA Assessment: Body mass index is 28.62 kg/m . Plan: nutrition consult and lifestyle modification Difficult airway for intubation 07/24/2018 07/29/2018 Overview: Fairly easy mask ventilation. Intubation was difficult with Mac 3 blade. only the epiglottis was visualized, but a blind intubation was successful. Postoperative pain 07/24/2018 07/29/2018 Overview: History: Post-op Assessment: Controlled Plan: Continue scheduled daily Lidoderm patches; PRN Tylenol and Oxycodone. Atelectasis 07/24/2018 07/26/2018 Overview: Grade 3 airway A/P: Postop bibasilar. Elevated right hemidiaphragm OOB to chair. BPH. Postoperative hypotension 07/24/20182018 Overview: A/P: Arrived on Levo, wean to goal MAP 75-85. Coagulopathy 07/24/2018 07/25/2018 Overview: A/P: Coagulopathy/bleeding intraop, transfused 2plts/2FFP/5PRBC in OR, f/u coags and transfuse as needed. Hypovolemia 07/24/2018 07/25/2018 Overview: A/P: Postop fluid shifts. Volume resuscitate as needed. Pre-op testing 07/23/2018 09/19/2018 Overview: [facility] Surgeon: Thom Soto M.D. Informed Consent Completed: Yes STS Score: CAD: Yes - CAD on Problem List: Yes Is intended procedure a CABG: Yes - is a beta getachew ordered? Yes H & P completed: Yes PA/LAT: Completed CT: Completed Abnormal Follow-up for these incidentally detected lung nodules with a chest CT exam is recommended in 3-6 months. If stable on follow-up imaging, a repeat chest CT exam in 12 months (15-18 months from the initial exam) is recommended MRI: N/A LE US: Completed Cath: Yes - reviewed: Yes EKG: Completed Is patient on Amiodarone? Echo:Pending today EF %: pending today PI's: Completed Carotid: Completed Mapping: Completed Dental: N/A, CABG PFT's: Completed Recent Labs 07/23/18 0835 WBC 8.10 HB 9.3* HCT 31.0* PLT 258 INR 1.0 CREAT 0.94 UA: Normal HCG:N/A ABO/ABO Confirmed: Yes, Positive antibodies Blood ordered: Yes Willing to accept blood: SA Swab: Yes - results: Pending Last Dose of Anticoagulation: Aspirin 81 mg continue Op Note: N/A Pacemaker Check: N/A Implants: no Consults: none DM: No Cardiac Surgical prep: N/A SIGNATURE: Rosalia Prakash APRN.CNP DATE of SERVICE: 07/23/2018 TIME of SERVICE: 2:40 PM CHECKED BY: amber Discharge planning issues 07/23/20182018 Overview: 77 y o m here for CABG. Resides in [place]. to [place] for 55 years. Son Harvey is supportive. Await therapy eval. Chronic left-sided low back pain with left-sided sciatica 12/09/2015 08/18/2021 Esophagitis, unspecified 08/29/2007 011 Unspecified hemorrhoids without mention of compl ication 10/20/2010 Overview: Hemorrhoids Diverticulosis of colon (without mention of hemo rrhage) 10/20/2010 Overview: Diverticulosis Peptic ulcer, unspecified si te, unspecified as acute or chronic, without mention of hemorrhage, perforation, or obstruction 05/30/2007 documented as of this encounter (statuses as of 03/16/2022) [facility]10-[facility]-20[facility] History of Past illness Narrative* Problem Noted Date Resolved Date Cervical radiculopathy 12/08/2021 Left arm pain 12/08/2021 02/01/2022 Ileus 12/20/2018 12/24/2018 Acute blood loss anemia 12/20/2018 12/25/19 19 Acute cholecystitis 12/15/2018 12/24/2018 Transition of care performed with sharing of clinical summary 07/26/2018 09/19/2018 Overview: Indication for Surgery: CAD Preop LVEF: 59% RVF: Normal Postop LVEF: Normal RVF: Normal Cards: [place] EKG: NSR PMH/PSH: Hypothyroid, diverticulitis, GIB, PUD, appendectomy, former smoker, GERD, Barretts, esophageal stricture (9mm on 05/2018 EGD note below) and large hiatal hernia. Airway Difficulty: Grade III view (only epiglottis visible) - No special instrumentation Pacing Wires: Ventricular: Pulled 07/27 Chronological List of Surgeries and Major Events (Diagnosis): (Surgeries in bold characters) 07/24/2018: CABG x 3 (VASQUES to LAD, SVG to RCA, SVG to OM1) OR course: Coagulopathy/bleeding - transfused multiple products in OR CVICU: Hypotension requiring Levo gtt for MAP goal 75-85. A/P: Wires pulled 07/27, MS mayda drain has been removed too. s/p CABG - ASA, BB, statin intolerance (D/w patient and was perhaps 20 years ago his primary MD started a statin. He reports maybe dizziness? I suggested perhaps muscle aches but he is not sure. He denies any anaphylaxis or needing to be hospitalized for any med adverse reactions - will start simvastatin 20mg po daily. Patient aware of S/Sx to report and placed on discharge medication sheet.) GERD/Esophageal strictures s/p dilations, did not do a LUCRECIA in the OR, NO LUCRECIA post-op. Dispo - 77yo male from [place], [place]. CM following. F/U with OPD and Cards made. For D/C today. Discharge Planning: Anticipated Discharge Date: 07/29 Barriers to Discharge: No Barriers to Discharge, Other: NA Care Management Discharge Needs: Needs Prior to Discharge: OT/PT Evaluation Obesity, Class I, BMI 30-34.9 07/26/2018 Overview: History: POA Assessment: Body mass index is 28.62 kg/m . Plan: nutrition consult and lifestyle modification Difficult airway for intubation 07/24/2018 07/29/2018 Overview: Fairly easy mask ventilation. Intubation was difficult with Mac 3 blade. only the epiglottis was visualized, but a blind intubation was successful. Postoperative pain 07/24/2018 07/29/2018 Overview: History: Post-op Assessment: Controlled Plan: Continue scheduled daily Lidoderm patches; PRN Tylenol and Oxycodone. Atelectasis 07/24/2018 07/26/2018 Overview: Grade 3 airway A/P: Postop bibasilar. Elevated right hemidiaphragm OOB to chair. BPH. Postoperative hypotension 07/24/20182018 Overview: A/P: Arrived on Levo, wean to goal MAP 75-85. Coagulopathy 07/24/2018 07/25/2018 Overview: A/P: Coagulopathy/bleeding intraop, transfused 2plts/2FFP/5PRBC in OR, f/u coags and transfuse as needed. Hypovolemia 07/24/2018 07/25/2018 Overview: A/P: Postop fluid shifts. Volume resuscitate as needed. Pre-op testing 07/23/2018 09/19/2018 Overview: [facility] Surgeon: Thom Soto M.D. Informed Consent Completed: Yes STS Score: CAD: Yes - CAD on Problem List: Yes Is intended procedure a CABG: Yes - is a beta getachew ordered? Yes H & P completed: Yes PA/LAT: Completed CT: Completed Abnormal Follow-up for these incidentally detected lung nodules with a chest CT exam is recommended in 3-6 months. If stable on follow-up imaging, a repeat chest CT exam in 12 months (15-18 months from the initial exam) is recommended MRI: N/A LE US: Completed Cath: Yes - reviewed: Yes EKG: Completed Is patient on Amiodarone? Echo:Pending today EF %: pending today PI's: Completed Carotid: Completed Mapping: Completed Dental: N/A, CABG PFT's: Completed Recent Labs 07/23/18 0835 WBC 8.10 HB 9.3* HCT 31.0* PLT 258 INR 1.0 CREAT 0.94 UA: Normal HCG:N/A ABO/ABO Confirmed: Yes, Positive antibodies Blood ordered: Yes Willing to accept blood: SA Swab: Yes - results: Pending Last Dose of Anticoagulation: Aspirin 81 mg continue Op Note: N/A Pacemaker Check: N/A Implants: no Consults: none DM: No Cardiac Surgical prep: N/A SIGNATURE: Rosalia Prakash APRN.CNP DATE of SERVICE: 07/23/2018 TIME of SERVICE: 2:40 PM CHECKED BY: amber Discharge planning issues 07/23/20182018 Overview: 77 y o m here for CABG. Resides in [place]. to [place] for 55 years. Son Harvey is supportive. Await therapy eval. Chronic left-sided low back pain with left-sided sciatica 12/09/2015 08/18/2021 Esophagitis, unspecified 08/29/2007 011 Unspecified hemorrhoids without mention of compl ication 10/20/2010 Overview: Hemorrhoids Diverticulosis of colon (without mention of hemo rrhage) 10/20/2010 Overview: Diverticulosis Peptic ulcer, unspecified si te, unspecified as acute or chronic, without mention of hemorrhage, perforation, or obstruction 05/30/2007 documented as of this encounter (statuses as of 03/16/2022) [facility] History of Past illness Narrative* Problem Noted Date Resolved Date Cervical radiculopathy 12/08/2021 2 Left arm pain 12/08/2021 02/01/2022 Ileus 12/20/2018 12/24/2018 Acute blood loss anemia 12/20/2018 12/25/19 19 Acute cholecystitis 12/15/2018 12/24/2018 Transition of care performed with sharing of clinical summary 07/26/2018 09/19/2018 Overview: Indication for Surgery: CAD Preop LVEF: 59% RVF: Normal Postop LVEF: Normal RVF: Normal Cards: [place] EKG: NSR PMH/PSH: Hypothyroid, diverticulitis, GIB, PUD, appendectomy, former smoker, GERD, Barretts, esophageal stricture (9mm on 05/2018 EGD note below) and large hiatal hernia. Airway Difficulty: Grade III view (only epiglottis visible) - No special instrumentation Pacing Wires: Ventricular: Pulled 07/27 Chronological List of Surgeries and Major Events (Diagnosis): (Surgeries in bold characters) 07/24/2018: CABG x 3 (VASQUES to LAD, SVG to RCA, SVG to OM1) OR course: Coagulopathy/bleeding - transfused multiple products in OR CVICU: Hypotension requiring Levo gtt for MAP goal 75-85. A/P: Wires pulled 07/27, MS mayda drain has been removed too. s/p CABG - ASA, BB, statin intolerance (D/w patient and was perhaps 20 years ago his primary MD started a statin. He reports maybe dizziness? I suggested perhaps muscle aches but he is not sure. He denies any anaphylaxis or needing to be hospitalized for any med adverse reactions - will start simvastatin 20mg po daily. Patient aware of S/Sx to report and placed on discharge medication sheet.) GERD/Esophageal strictures s/p dilations, did not do a LUCRECIA in the OR, NO LUCRECIA post-op. Dispo - 77yo male from [place], [place]. CM following. F/U with OPD and Cards made. For D/C today. Discharge Planning: Anticipated Discharge Date: 07/29 Barriers to Discharge: No Barriers to Discharge, Other: NA Care Management Discharge Needs: Needs Prior to Discharge: OT/PT Evaluation Obesity, Class I, BMI 30-34.9 07/26/2018 Overview: History: POA Assessment: Body mass index is 28.62 kg/m . Plan: nutrition consult and lifestyle modification Difficult airway for intubation 07/24/2018 07/29/2018 Overview: Fairly easy mask ventilation. Intubation was difficult with Mac 3 blade. only the epiglottis was visualized, but a blind intubation was successful. Postoperative pain 07/24/2018 07/29/2018 Overview: History: Post-op Assessment: Controlled Plan: Continue scheduled daily Lidoderm patches; PRN Tylenol and Oxycodone. Atelectasis 07/24/2018 07/26/2018 Overview: Grade 3 airway A/P: Postop bibasilar. Elevated right hemidiaphragm OOB to chair. BPH. Postoperative hypotension 07/24/20182018 Overview: A/P: Arrived on Levo, wean to goal MAP 75-85. Coagulopathy 07/24/2018 07/25/2018 Overview: A/P: Coagulopathy/bleeding intraop, transfused 2plts/2FFP/5PRBC in OR, f/u coags and transfuse as needed. Hypovolemia 07/24/2018 07/25/2018 Overview: A/P: Postop fluid shifts. Volume resuscitate as needed. Pre-op testing 07/23/2018 09/19/2018 Overview: [facility] Surgeon: Thom Soto M.D. Informed Consent Completed: Yes STS Score: CAD: Yes - CAD on Problem List: Yes Is intended procedure a CABG: Yes - is a beta getachew ordered? Yes H & P completed: Yes PA/LAT: Completed CT: Completed Abnormal Follow-up for these incidentally detected lung nodules with a chest CT exam is recommended in 3-6 months. If stable on follow-up imaging, a repeat chest CT exam in 12 months (15-18 months from the initial exam) is recommended MRI: N/A LE US: Completed Cath: Yes - reviewed: Yes EKG: Completed Is patient on Amiodarone? Echo:Pending today EF %: pending today PI's: Completed Carotid: Completed Mapping: Completed Dental: N/A, CABG PFT's: Completed Recent Labs 07/23/18 0835 WBC 8.10 HB 9.3* HCT 31.0* PLT 258 INR 1.0 CREAT 0.94 UA: Normal HCG:N/A ABO/ABO Confirmed: Yes, Positive antibodies Blood ordered: Yes Willing to accept blood: SA Swab: Yes - results: Pending Last Dose of Anticoagulation: Aspirin 81 mg continue Op Note: N/A Pacemaker Check: N/A Implants: no Consults: none DM: No Cardiac Surgical prep: N/A SIGNATURE: Rosalia Prakash APRN.CNP DATE of SERVICE: 07/23/2018 TIME of SERVICE: 2:40 PM CHECKED BY: amber Discharge planning issues 07/23/20182018 Overview: 77 y o m here for CABG. Resides in [place]. to [place] for 55 years. Son Harvey is supportive. Await therapy eval. Chronic left-sided low back pain with left-sided sciatica 12/09/2015 08/18/2021 Esophagitis, unspecified 08/29/2007 011 Unspecified hemorrhoids without mention of compl ication 10/20/2010 Overview: Hemorrhoids Diverticulosis of colon (without mention of hemo rrhage) 10/20/2010 Overview: Diverticulosis Peptic ulcer, unspecified si te, unspecified as acute or chronic, without mention of hemorrhage, perforation, or obstruction 05/30/2007 documented as of this encounter (statuses as of 04/17/2022) [facility] History of Past illness Narrative* Problem Noted Date Resolved Date Cervical radiculopathy 12/08/2021 2 Left arm pain 12/08/2021 02/01/2022 Ileus 12/20/2018 12/24/2018 Acute blood loss anemia 12/20/2018 12/25/19 19 Acute cholecystitis 12/15/2018 12/24/2018 Transition of care performed with sharing of clinical summary 07/26/2018 09/19/2018 Overview: Indication for Surgery: CAD Preop LVEF: 59% RVF: Normal Postop LVEF: Normal RVF: Normal Cards: [place] EKG: NSR PMH/PSH: Hypothyroid, diverticulitis, GIB, PUD, appendectomy, former smoker, GERD, Barretts, esophageal stricture (9mm on 05/2018 EGD note below) and large hiatal hernia. Airway Difficulty: Grade III view (only epiglottis visible) - No special instrumentation Pacing Wires: Ventricular: Pulled 07/27 Chronological List of Surgeries and Major Events (Diagnosis): (Surgeries in bold characters) 07/24/2018: CABG x 3 (VASQUES to LAD, SVG to RCA, SVG to OM1) OR course: Coagulopathy/bleeding - transfused multiple products in OR CVICU: Hypotension requiring Levo gtt for MAP goal 75-85. A/P: Wires pulled 07/27, MS mayda drain has been removed too. s/p CABG - ASA, BB, statin intolerance (D/w patient and was perhaps 20 years ago his primary MD started a statin. He reports maybe dizziness? I suggested perhaps muscle aches but he is not sure. He denies any anaphylaxis or needing to be hospitalized for any med adverse reactions - will start simvastatin 20mg po daily. Patient aware of S/Sx to report and placed on discharge medication sheet.) GERD/Esophageal strictures s/p dilations, did not do a LUCRECIA in the OR, NO LUCRECIA post-op. Dispo - 77yo male from [place], [place]. CM following. F/U with OPD and Cards made. For D/C today. Discharge Planning: Anticipated Discharge Date: 07/29 Barriers to Discharge: No Barriers to Discharge, Other: NA Care Management Discharge Needs: Needs Prior to Discharge: OT/PT Evaluation Obesity, Class I, BMI 30-34.9 07/26/2018 Overview: History: POA Assessment: Body mass index is 28.62 kg/m . Plan: nutrition consult and lifestyle modification Difficult airway for intubation 07/24/2018 07/29/2018 Overview: Fairly easy mask ventilation. Intubation was difficult with Mac 3 blade. only the epiglottis was visualized, but a blind intubation was successful. Postoperative pain 07/24/2018 07/29/2018 Overview: History: Post-op Assessment: Controlled Plan: Continue scheduled daily Lidoderm patches; PRN Tylenol and Oxycodone. Atelectasis 07/24/2018 07/26/2018 Overview: Grade 3 airway A/P: Postop bibasilar. Elevated right hemidiaphragm OOB to chair. BPH. Postoperative hypotension 07/24/20182018 Overview: A/P: Arrived on Levo, wean to goal MAP 75-85. Coagulopathy 07/24/2018 07/25/2018 Overview: A/P: Coagulopathy/bleeding intraop, transfused 2plts/2FFP/5PRBC in OR, f/u coags and transfuse as needed. Hypovolemia 07/24/2018 07/25/2018 Overview: A/P: Postop fluid shifts. Volume resuscitate as needed. Pre-op testing 07/23/2018 09/19/2018 Overview: [facility] Surgeon: Thom Soto M.D. Informed Consent Completed: Yes STS Score: CAD: Yes - CAD on Problem List: Yes Is intended procedure a CABG: Yes - is a beta getachew ordered? Yes H & P completed: Yes PA/LAT: Completed CT: Completed Abnormal Follow-up for these incidentally detected lung nodules with a chest CT exam is recommended in 3-6 months. If stable on follow-up imaging, a repeat chest CT exam in 12 months (15-18 months from the initial exam) is recommended MRI: N/A LE US: Completed Cath: Yes - reviewed: Yes EKG: Completed Is patient on Amiodarone? Echo:Pending today EF %: pending today PI's: Completed Carotid: Completed Mapping: Completed Dental: N/A, CABG PFT's: Completed Recent Labs 07/23/18 0835 WBC 8.10 HB 9.3* HCT 31.0* PLT 258 INR 1.0 CREAT 0.94 UA: Normal HCG:N/A ABO/ABO Confirmed: Yes, Positive antibodies Blood ordered: Yes Willing to accept blood: SA Swab: Yes - results: Pending Last Dose of Anticoagulation: Aspirin 81 mg continue Op Note: N/A Pacemaker Check: N/A Implants: no Consults: none DM: No Cardiac Surgical prep: N/A SIGNATURE: Rosalia Prakash APRN.CNP DATE of SERVICE: 07/23/2018 TIME of SERVICE: 2:40 PM CHECKED BY: amber Discharge planning issues 07/23/20182018 Overview: 77 y o m here for CABG. Resides in [place]. to [place] for 55 years. Son Harvey is supportive. Await therapy eval. Chronic left-sided low back pain with left-sided sciatica 12/09/2015 08/18/2021 Esophagitis, unspecified 08/29/2007 011 Unspecified hemorrhoids without mention of compl ication 10/20/2010 Overview: Hemorrhoids Diverticulosis of colon (without mention of hemo rrhage) 10/20/2010 Overview: Diverticulosis Peptic ulcer, unspecified si te, unspecified as acute or chronic, without mention of hemorrhage, perforation, or obstruction 05/30/2007 documented as of this encounter (statuses as of 04/18/2022) [facility]10-27-2022 History of Past illness Narrative* Problem Noted Date Resolved Date Cervical radiculopathy 12/08/2021 2 Left arm pain 12/08/2021 02/01/2022 Ileus 12/20/2018 12/24/2018 Acute blood loss anemia 12/20/2018 12/25/19 19 Acute cholecystitis 12/15/2018 12/24/2018 Transition of care performed with sharing of clinical summary 07/26/2018 09/19/2018 Overview: Indication for Surgery: CAD Preop LVEF: 59% RVF: Normal Postop LVEF: Normal RVF: Normal Cards: [place] EKG: NSR PMH/PSH: Hypothyroid, diverticulitis, GIB, PUD, appendectomy, former smoker, GERD, Barretts, esophageal stricture (9mm on 05/2018 EGD note below) and large hiatal hernia. Airway Difficulty: Grade III view (only epiglottis visible) - No special instrumentation Pacing Wires: Ventricular: Pulled 07/27 Chronological List of Surgeries and Major Events (Diagnosis): (Surgeries in bold characters) 07/24/2018: CABG x 3 (VASQUES to LAD, SVG to RCA, SVG to OM1) OR course: Coagulopathy/bleeding - transfused multiple products in OR CVICU: Hypotension requiring Levo gtt for MAP goal 75-85. A/P: Wires pulled 07/27, MS ohara drain has been removed too. s/p CABG - ASA, BB, statin intolerance (D/w patient and was perhaps 20 years ago his primary MD started a statin. He reports maybe dizziness? I suggested perhaps muscle aches but he is not sure. He denies any anaphylaxis or needing to be hospitalized for any med adverse reactions - will start simvastatin 20mg po daily. Patient aware of S/Sx to report and placed on discharge medication sheet.) GERD/Esophageal strictures s/p dilations, did not do a LUCRECIA in the OR, NO LUCRECIA post-op. Dispo - 77yo male from [place], [place]. CM following. F/U with OPD and Cards made. For D/C today. Discharge Planning: Anticipated Discharge Date: 07/29 Barriers to Discharge: No Barriers to Discharge, Other: NA Care Management Discharge Needs: Needs Prior to Discharge: OT/PT Evaluation Obesity, Class I, BMI 30-34.9 07/26/2018 Overview: History: POA Assessment: Body mass index is 28.62 kg/m . Plan: nutrition consult and lifestyle modification Difficult airway for intubation 07/24/2018 07/29/2018 Overview: Fairly easy mask ventilation. Intubation was difficult with Mac 3 blade. only the epiglottis was visualized, but a blind intubation was successful. Postoperative pain 07/24/2018 07/29/2018 Overview: History: Post-op Assessment: Controlled Plan: Continue scheduled daily Lidoderm patches; PRN Tylenol and Oxycodone. Atelectasis 07/24/2018 07/26/2018 Overview: Grade 3 airway A/P: Postop bibasilar. Elevated right hemidiaphragm OOB to chair. BPH. Postoperative hypotension 07/24/20182018 Overview: A/P: Arrived on Levo, wean to goal MAP 75-85. Coagulopathy 07/24/2018 07/25/2018 Overview: A/P: Coagulopathy/bleeding intraop, transfused 2plts/2FFP/5PRBC in OR, f/u coags and transfuse as needed. Hypovolemia 07/24/2018 07/25/2018 Overview: A/P: Postop fluid shifts. Volume resuscitate as needed. Pre-op testing 07/23/2018 09/19/2018 Overview: [facility] Surgeon: Thom Soto M.D. Informed Consent Completed: Yes STS Score: CAD: Yes - CAD on Problem List: Yes Is intended procedure a CABG: Yes - is a beta getachew ordered? Yes H & P completed: Yes PA/LAT: Completed CT: Completed Abnormal Follow-up for these incidentally detected lung nodules with a chest CT exam is recommended in 3-6 months. If stable on follow-up imaging, a repeat chest CT exam in 12 months (15-18 months from the initial exam) is recommended MRI: N/A LE US: Completed Cath: Yes - reviewed: Yes EKG: Completed Is patient on Amiodarone? Echo:Pending today EF %: pending today PI's: Completed Carotid: Completed Mapping: Completed Dental: N/A, CABG PFT's: Completed Recent Labs 07/23/18 0835 WBC 8.10 HB 9.3* HCT 31.0* PLT 258 INR 1.0 CREAT 0.94 UA: Normal HCG:N/A ABO/ABO Confirmed: Yes, Positive antibodies Blood ordered: Yes Willing to accept blood: SA Swab: Yes - results: Pending Last Dose of Anticoagulation: Aspirin 81 mg continue Op Note: N/A Pacemaker Check: N/A Implants: no Consults: none DM: No Cardiac Surgical prep: N/A SIGNATURE: Rosalia Prakash APRN.CNP DATE of SERVICE: 07/23/2018 TIME of SERVICE: 2:40 PM CHECKED BY: amber Discharge planning issues 07/23/20182018 Overview: 77 y o m here for CABG. Resides in [place]. to [place] for 55 years. Son Harvey is supportive. Await therapy eval. Chronic left-sided low back pain with left-sided sciatica 12/09/2015 08/18/2021 Esophagitis, unspecified 08/29/2007 011 Unspecified hemorrhoids without mention of compl ication 10/20/2010 Overview: Hemorrhoids Diverticulosis of colon (without mention of hemo rrhage) 10/20/2010 Overview: Diverticulosis Peptic ulcer, unspecified si te, unspecified as acute or chronic, without mention of hemorrhage, perforation, or obstruction 05/30/2007 documented as of this encounter (statuses as of 04/19/2022) [facility]10-27-2022 History of Past illness Narrative* Problem Noted Date Resolved Date Cervical radiculopathy 12/08/2021 2 Left arm pain 12/08/2021 02/01/2022 Ileus 12/20/2018 12/24/2018 Acute blood loss anemia 12/20/2018 12/25/19 19 Acute cholecystitis 12/15/2018 12/24/2018 Transition of care performed with sharing of clinical summary 07/26/2018 09/19/2018 Overview: Indication for Surgery: CAD Preop LVEF: 59% RVF: Normal Postop LVEF: Normal RVF: Normal Cards: [place] EKG: NSR PMH/PSH: Hypothyroid, diverticulitis, GIB, PUD, appendectomy, former smoker, GERD, Barretts, esophageal stricture (9mm on 05/2018 EGD note below) and large hiatal hernia. Airway Difficulty: Grade III view (only epiglottis visible) - No special instrumentation Pacing Wires: Ventricular: Pulled 07/27 Chronological List of Surgeries and Major Events (Diagnosis): (Surgeries in bold characters) 07/24/2018: CABG x 3 (VASQUES to LAD, SVG to RCA, SVG to OM1) OR course: Coagulopathy/bleeding - transfused multiple products in OR CVICU: Hypotension requiring Levo gtt for MAP goal 75-85. A/P: Wires pulled 07/27, MS mayda drain has been removed too. s/p CABG - ASA, BB, statin intolerance (D/w patient and was perhaps 20 years ago his primary MD started a statin. He reports maybe dizziness? I suggested perhaps muscle aches but he is not sure. He denies any anaphylaxis or needing to be hospitalized for any med adverse reactions - will start simvastatin 20mg po daily. Patient aware of S/Sx to report and placed on discharge medication sheet.) GERD/Esophageal strictures s/p dilations, did not do a LUCRECIA in the OR, NO LUCRECIA post-op. Dispo - 77yo male from [place], [place]. CM following. F/U with OPD and Cards made. For D/C today. Discharge Planning: Anticipated Discharge Date: 07/29 Barriers to Discharge: No Barriers to Discharge, Other: NA Care Management Discharge Needs: Needs Prior to Discharge: OT/PT Evaluation Obesity, Class I, BMI 30-34.9 07/26/2018 Overview: History: POA Assessment: Body mass index is 28.62 kg/m . Plan: nutrition consult and lifestyle modification Difficult airway for intubation 07/24/2018 07/29/2018 Overview: Fairly easy mask ventilation. Intubation was difficult with Mac 3 blade. only the epiglottis was visualized, but a blind intubation was successful. Postoperative pain 07/24/2018 07/29/2018 Overview: History: Post-op Assessment: Controlled Plan: Continue scheduled daily Lidoderm patches; PRN Tylenol and Oxycodone. Atelectasis 07/24/2018 07/26/2018 Overview: Grade 3 airway A/P: Postop bibasilar. Elevated right hemidiaphragm OOB to chair. BPH. Postoperative hypotension 07/24/20182018 Overview: A/P: Arrived on Levo, wean to goal MAP 75-85. Coagulopathy 07/24/2018 07/25/2018 Overview: A/P: Coagulopathy/bleeding intraop, transfused 2plts/2FFP/5PRBC in OR, f/u coags and transfuse as needed. Hypovolemia 07/24/2018 07/25/2018 Overview: A/P: Postop fluid shifts. Volume resuscitate as needed. Pre-op testing 07/23/2018 09/19/2018 Overview: [facility] Surgeon: Thom Soto M.D. Informed Consent Completed: Yes STS Score: CAD: Yes - CAD on Problem List: Yes Is intended procedure a CABG: Yes - is a beta getachew ordered? Yes H & P completed: Yes PA/LAT: Completed CT: Completed Abnormal Follow-up for these incidentally detected lung nodules with a chest CT exam is recommended in 3-6 months. If stable on follow-up imaging, a repeat chest CT exam in 12 months (15-18 months from the initial exam) is recommended MRI: N/A LE US: Completed Cath: Yes - reviewed: Yes EKG: Completed Is patient on Amiodarone? Echo:Pending today EF %: pending today PI's: Completed Carotid: Completed Mapping: Completed Dental: N/A, CABG PFT's: Completed Recent Labs 07/23/18 0835 WBC 8.10 HB 9.3* HCT 31.0* PLT 258 INR 1.0 CREAT 0.94 UA: Normal HCG:N/A ABO/ABO Confirmed: Yes, Positive antibodies Blood ordered: Yes Willing to accept blood: SA Swab: Yes - results: Pending Last Dose of Anticoagulation: Aspirin 81 mg continue Op Note: N/A Pacemaker Check: N/A Implants: no Consults: none DM: No Cardiac Surgical prep: N/A SIGNATURE: Rosalia Prakash APRN.CNP DATE of SERVICE: 07/23/2018 TIME of SERVICE: 2:40 PM CHECKED BY: amber Discharge planning issues 07/23/20182018 Overview: 77 y o m here for CABG. Resides in [place]. to [place] for 55 years. Son Harvey is supportive. Await therapy eval. Chronic left-sided low back pain with left-sided sciatica 12/09/2015 08/18/2021 Esophagitis, unspecified 08/29/2007 011 Unspecified hemorrhoids without mention of compl ication 10/20/2010 Overview: Hemorrhoids Diverticulosis of colon (without mention of hemo rrhage) 10/20/2010 Overview: Diverticulosis Peptic ulcer, unspecified si te, unspecified as acute or chronic, without mention of hemorrhage, perforation, or obstruction 05/30/2007 documented as of this encounter (statuses as of 04/20/2022) [facility]10-[facility]-20[facility] History of Past illness Narrative* Problem Noted Date Resolved Date Cervical radiculopathy 12/08/2021 2 Left arm pain 12/08/2021 02/01/2022 Ileus 12/20/2018 12/24/2018 Acute blood loss anemia 12/20/2018 12/25/19 19 Acute cholecystitis 12/15/2018 12/24/2018 Transition of care performed with sharing of clinical summary 07/26/2018 09/19/2018 Overview: Indication for Surgery: CAD Preop LVEF: 59% RVF: Normal Postop LVEF: Normal RVF: Normal Cards: [place] EKG: NSR PMH/PSH: Hypothyroid, diverticulitis, GIB, PUD, appendectomy, former smoker, GERD, Barretts, esophageal stricture (9mm on 05/2018 EGD note below) and large hiatal hernia. Airway Difficulty: Grade III view (only epiglottis visible) - No special instrumentation Pacing Wires: Ventricular: Pulled 07/27 Chronological List of Surgeries and Major Events (Diagnosis): (Surgeries in bold characters) 07/24/2018: CABG x 3 (VASQUES to LAD, SVG to RCA, SVG to OM1) OR course: Coagulopathy/bleeding - transfused multiple products in OR CVICU: Hypotension requiring Levo gtt for MAP goal 75-85. A/P: Wires pulled 07/27, MS mayda drain has been removed too. s/p CABG - ASA, BB, statin intolerance (D/w patient and was perhaps 20 years ago his primary MD started a statin. He reports maybe dizziness? I suggested perhaps muscle aches but he is not sure. He denies any anaphylaxis or needing to be hospitalized for any med adverse reactions - will start simvastatin 20mg po daily. Patient aware of S/Sx to report and placed on discharge medication sheet.) GERD/Esophageal strictures s/p dilations, did not do a LUCRECIA in the OR, NO LUCRECIA post-op. Dispo - 77yo male from [place], [place]. CM following. F/U with OPD and Cards made. For D/C today. Discharge Planning: Anticipated Discharge Date: 07/29 Barriers to Discharge: No Barriers to Discharge, Other: NA Care Management Discharge Needs: Needs Prior to Discharge: OT/PT Evaluation Obesity, Class I, BMI 30-34.9 07/26/2018 Overview: History: POA Assessment: Body mass index is 28.62 kg/m . Plan: nutrition consult and lifestyle modification Difficult airway for intubation 07/24/2018 07/29/2018 Overview: Fairly easy mask ventilation. Intubation was difficult with Mac 3 blade. only the epiglottis was visualized, but a blind intubation was successful. Postoperative pain 07/24/2018 07/29/2018 Overview: History: Post-op Assessment: Controlled Plan: Continue scheduled daily Lidoderm patches; PRN Tylenol and Oxycodone. Atelectasis 07/24/2018 07/26/2018 Overview: Grade 3 airway A/P: Postop bibasilar. Elevated right hemidiaphragm OOB to chair. BPH. Postoperative hypotension 07/24/20182018 Overview: A/P: Arrived on Levo, wean to goal MAP 75-85. Coagulopathy 07/24/2018 07/25/2018 Overview: A/P: Coagulopathy/bleeding intraop, transfused 2plts/2FFP/5PRBC in OR, f/u coags and transfuse as needed. Hypovolemia 07/24/2018 07/25/2018 Overview: A/P: Postop fluid shifts. Volume resuscitate as needed. Pre-op testing 07/23/2018 09/19/2018 Overview: [facility] Surgeon: Thom Soto M.D. Informed Consent Completed: Yes STS Score: CAD: Yes - CAD on Problem List: Yes Is intended procedure a CABG: Yes - is a beta getachew ordered? Yes H & P completed: Yes PA/LAT: Completed CT: Completed Abnormal Follow-up for these incidentally detected lung nodules with a chest CT exam is recommended in 3-6 months. If stable on follow-up imaging, a repeat chest CT exam in 12 months (15-18 months from the initial exam) is recommended MRI: N/A LE US: Completed Cath: Yes - reviewed: Yes EKG: Completed Is patient on Amiodarone? Echo:Pending today EF %: pending today PI's: Completed Carotid: Completed Mapping: Completed Dental: N/A, CABG PFT's: Completed Recent Labs 07/23/18 0835 WBC 8.10 HB 9.3* HCT 31.0* PLT 258 INR 1.0 CREAT 0.94 UA: Normal HCG:N/A ABO/ABO Confirmed: Yes, Positive antibodies Blood ordered: Yes Willing to accept blood: SA Swab: Yes - results: Pending Last Dose of Anticoagulation: Aspirin 81 mg continue Op Note: N/A Pacemaker Check: N/A Implants: no Consults: none DM: No Cardiac Surgical prep: N/A SIGNATURE: Rosalia Prakash APRN.CNP DATE of SERVICE: 07/23/2018 TIME of SERVICE: 2:40 PM CHECKED BY: amber Discharge planning issues 07/23/20182018 Overview: 77 y o m here for CABG. Resides in [place]. to [place] for 55 years. Son Harvey is supportive. Await therapy eval. Chronic left-sided low back pain with left-sided sciatica 12/09/2015 08/18/2021 Esophagitis, unspecified 08/29/2007 011 Unspecified hemorrhoids without mention of compl ication 10/20/2010 Overview: Hemorrhoids Diverticulosis of colon (without mention of hemo rrhage) 10/20/2010 Overview: Diverticulosis Peptic ulcer, unspecified si te, unspecified as acute or chronic, without mention of hemorrhage, perforation, or obstruction 05/30/2007 documented as of this encounter (statuses as of 04/21/2022) [facility] History of Past illness Narrative* Problem Noted Date Resolved Date Cervical radiculopathy 12/08/2021 2 Left arm pain 12/08/2021 02/01/2022 Ileus 12/20/2018 12/24/2018 Acute blood loss anemia 12/20/2018 12/25/19 19 Acute cholecystitis 12/15/2018 12/24/2018 Transition of care performed with sharing of clinical summary 07/26/2018 09/19/2018 Overview: Indication for Surgery: CAD Preop LVEF: 59% RVF: Normal Postop LVEF: Normal RVF: Normal Cards: [place] EKG: NSR PMH/PSH: Hypothyroid, diverticulitis, GIB, PUD, appendectomy, former smoker, GERD, Barretts, esophageal stricture (9mm on 05/2018 EGD note below) and large hiatal hernia. Airway Difficulty: Grade III view (only epiglottis visible) - No special instrumentation Pacing Wires: Ventricular: Pulled 07/27 Chronological List of Surgeries and Major Events (Diagnosis): (Surgeries in bold characters) 07/24/2018: CABG x 3 (VASQUES to LAD, SVG to RCA, SVG to OM1) OR course: Coagulopathy/bleeding - transfused multiple products in OR CVICU: Hypotension requiring Levo gtt for MAP goal 75-85. A/P: Wires pulled 07/27, MS ohara drain has been removed too. s/p CABG - ASA, BB, statin intolerance (D/w patient and was perhaps 20 years ago his primary MD started a statin. He reports maybe dizziness? I suggested perhaps muscle aches but he is not sure. He denies any anaphylaxis or needing to be hospitalized for any med adverse reactions - will start simvastatin 20mg po daily. Patient aware of S/Sx to report and placed on discharge medication sheet.) GERD/Esophageal strictures s/p dilations, did not do a LUCRECIA in the OR, NO LUCRECIA post-op. Dispo - 77yo male from [place], [place]. CM following. F/U with OPD and Cards made. For D/C today. Discharge Planning: Anticipated Discharge Date: 07/29 Barriers to Discharge: No Barriers to Discharge, Other: NA Care Management Discharge Needs: Needs Prior to Discharge: OT/PT Evaluation Obesity, Class I, BMI 30-34.9 07/26/2018 Overview: History: POA Assessment: Body mass index is 28.62 kg/m . Plan: nutrition consult and lifestyle modification Difficult airway for intubation 07/24/2018 07/29/2018 Overview: Fairly easy mask ventilation. Intubation was difficult with Mac 3 blade. only the epiglottis was visualized, but a blind intubation was successful. Postoperative pain 07/24/2018 07/29/2018 Overview: History: Post-op Assessment: Controlled Plan: Continue scheduled daily Lidoderm patches; PRN Tylenol and Oxycodone. Atelectasis 07/24/2018 07/26/2018 Overview: Grade 3 airway A/P: Postop bibasilar. Elevated right hemidiaphragm OOB to chair. BPH. Postoperative hypotension 07/24/20182018 Overview: A/P: Arrived on Levo, wean to goal MAP 75-85. Coagulopathy 07/24/2018 07/25/2018 Overview: A/P: Coagulopathy/bleeding intraop, transfused 2plts/2FFP/5PRBC in OR, f/u coags and transfuse as needed. Hypovolemia 07/24/2018 07/25/2018 Overview: A/P: Postop fluid shifts. Volume resuscitate as needed. Pre-op testing 07/23/2018 09/19/2018 Overview: [facility] PRE[facility] Surgeon: Thom Bakaeen, M.D. Informed Consent Completed: Yes STS Score: CAD: Yes - CAD on Problem List: Yes Is intended procedure a CABG: Yes - is a beta getachew ordered? Yes H & P completed: Yes PA/LAT: Completed CT: Completed Abnormal Follow-up for these incidentally detected lung nodules with a chest CT exam is recommended in 3-6 months. If stable on follow-up imaging, a repeat chest CT exam in 12 months (15-18 months from the initial exam) is recommended MRI: N/A LE US: Completed Cath: Yes - reviewed: Yes EKG: Completed Is patient on Amiodarone? Echo:Pending today EF %: pending today PI's: Completed Carotid: Completed Mapping: Completed Dental: N/A, CABG PFT's: Completed Recent Labs 07/23/18 0835 WBC 8.10 HB 9.3* HCT 31.0* PLT 258 INR 1.0 CREAT 0.94 UA: Normal HCG:N/A ABO/ABO Confirmed: Yes, Positive antibodies Blood ordered: Yes Willing to accept blood: SA Swab: Yes - results: Pending Last Dose of Anticoagulation: Aspirin 81 mg continue Op Note: N/A Pacemaker Check: N/A Implants: no Consults: none DM: No Cardiac Surgical prep: N/A SIGNATURE: Rosalia Prakash APRN.CNP DATE of SERVICE: 07/23/2018 TIME of SERVICE: 2:40 PM CHECKED BY: amber Discharge planning issues 07/23/20182018 Overview: 77 y o m here for CABG. Resides in [place]. to [place] for 55 years. Son Harvey is supportive. Await therapy eval. Chronic left-sided low back pain with left-sided sciatica 12/09/2015 08/18/2021 Esophagitis, unspecified 08/29/2007 011 Unspecified hemorrhoids without mention of compl ication 10/20/2010 Overview: Hemorrhoids Diverticulosis of colon (without mention of hemo rrhage) 10/20/2010 Overview: Diverticulosis Peptic ulcer, unspecified si te, unspecified as acute or chronic, without mention of hemorrhage, perforation, or obstruction 05/30/2007 documented as of this encounter (statuses as of 04/25/2022) [facility] History of Past illness Narrative* Problem Noted Date Resolved Date Cervical radiculopathy 12/08/2021 2 Left arm pain 12/08/2021 02/01/2022 Ileus 12/20/2018 12/24/2018 Acute blood loss anemia 12/20/2018 12/25/19 19 Acute cholecystitis 12/15/2018 12/24/2018 Transition of care performed with sharing of clinical summary 07/26/2018 09/19/2018 Overview: Indication for Surgery: CAD Preop LVEF: 59% RVF: Normal Postop LVEF: Normal RVF: Normal Cards: [place] EKG: NSR PMH/PSH: Hypothyroid, diverticulitis, GIB, PUD, appendectomy, former smoker, GERD, Barretts, esophageal stricture (9mm on 05/2018 EGD note below) and large hiatal hernia. Airway Difficulty: Grade III view (only epiglottis visible) - No special instrumentation Pacing Wires: Ventricular: Pulled 07/27 Chronological List of Surgeries and Major Events (Diagnosis): (Surgeries in bold characters) 07/24/2018: CABG x 3 (VASQUES to LAD, SVG to RCA, SVG to OM1) OR course: Coagulopathy/bleeding - transfused multiple products in OR CVICU: Hypotension requiring Levo gtt for MAP goal 75-85. A/P: Wires pulled 07/27, MS mayda drain has been removed too. s/p CABG - ASA, BB, statin intolerance (D/w patient and was perhaps 20 years ago his primary MD started a statin. He reports maybe dizziness? I suggested perhaps muscle aches but he is not sure. He denies any anaphylaxis or needing to be hospitalized for any med adverse reactions - will start simvastatin 20mg po daily. Patient aware of S/Sx to report and placed on discharge medication sheet.) GERD/Esophageal strictures s/p dilations, did not do a LUCRECIA in the OR, NO LUCRECIA post-op. Dispo - 77yo male from [place], [place]. CM following. F/U with OPD and Cards made. For D/C today. Discharge Planning: Anticipated Discharge Date: 07/29 Barriers to Discharge: No Barriers to Discharge, Other: NA Care Management Discharge Needs: Needs Prior to Discharge: OT/PT Evaluation Obesity, Class I, BMI 30-34.9 07/26/2018 Overview: History: POA Assessment: Body mass index is 28.62 kg/m . Plan: nutrition consult and lifestyle modification Difficult airway for intubation 07/24/2018 07/29/2018 Overview: Fairly easy mask ventilation. Intubation was difficult with Mac 3 blade. only the epiglottis was visualized, but a blind intubation was successful. Postoperative pain 07/24/2018 07/29/2018 Overview: History: Post-op Assessment: Controlled Plan: Continue scheduled daily Lidoderm patches; PRN Tylenol and Oxycodone. Atelectasis 07/24/2018 07/26/2018 Overview: Grade 3 airway A/P: Postop bibasilar. Elevated right hemidiaphragm OOB to chair. BPH. Postoperative hypotension 07/24/20182018 Overview: A/P: Arrived on Levo, wean to goal MAP 75-85. Coagulopathy 07/24/2018 07/25/2018 Overview: A/P: Coagulopathy/bleeding intraop, transfused 2plts/2FFP/5PRBC in OR, f/u coags and transfuse as needed. Hypovolemia 07/24/2018 07/25/2018 Overview: A/P: Postop fluid shifts. Volume resuscitate as needed. Pre-op testing 07/23/2018 09/19/2018 Overview: [facility] PRE[facility] Surgeon: Thom Soto M.D. Informed Consent Completed: Yes STS Score: CAD: Yes - CAD on Problem List: Yes Is intended procedure a CABG: Yes - is a beta getachew ordered? Yes H & P completed: Yes PA/LAT: Completed CT: Completed Abnormal Follow-up for these incidentally detected lung nodules with a chest CT exam is recommended in 3-6 months. If stable on follow-up imaging, a repeat chest CT exam in 12 months (15-18 months from the initial exam) is recommended MRI: N/A LE US: Completed Cath: Yes - reviewed: Yes EKG: Completed Is patient on Amiodarone? Echo:Pending today EF %: pending today PI's: Completed Carotid: Completed Mapping: Completed Dental: N/A, CABG PFT's: Completed Recent Labs 07/23/18 0835 WBC 8.10 HB 9.3* HCT 31.0* PLT 258 INR 1.0 CREAT 0.94 UA: Normal HCG:N/A ABO/ABO Confirmed: Yes, Positive antibodies Blood ordered: Yes Willing to accept blood: SA Swab: Yes - results: Pending Last Dose of Anticoagulation: Aspirin 81 mg continue Op Note: N/A Pacemaker Check: N/A Implants: no Consults: none DM: No Cardiac Surgical prep: N/A SIGNATURE: Rosalia Prakash APRN.CNP DATE of SERVICE: 07/23/2018 TIME of SERVICE: 2:40 PM CHECKED BY: amber Discharge planning issues 07/23/20182018 Overview: 77 y o m here for CABG. Resides in [place]. to [place] for 55 years. Son Harvey is supportive. Await therapy eval. Chronic left-sided low back pain with left-sided sciatica 12/09/2015 08/18/2021 Esophagitis, unspecified 08/29/2007 011 Unspecified hemorrhoids without mention of compl ication 10/20/2010 Overview: Hemorrhoids Diverticulosis of colon (without mention of hemo rrhage) 10/20/2010 Overview: Diverticulosis Peptic ulcer, unspecified si te, unspecified as acute or chronic, without mention of hemorrhage, perforation, or obstruction 05/30/2007 documented as of this encounter (statuses as of 05/23/2022) [facility]10-27-2022 History of Past illness Narrative* Problem Noted Date Resolved Date Cervical radiculopathy 12/08/2021 Left arm pain 12/08/2021 02/01/2022 Ileus 12/20/2018 12/24/2018 Acute blood loss anemia 12/20/2018 12/25/19 Acute cholecystitis 12/15/2018 12/24/2018 Transition of care performed with sharing of clinical summary 07/26/2018 09/19/2018 Overview: Indication for Surgery: CAD Preop LVEF: 59% RVF: Normal Postop LVEF: Normal RVF: Normal Cards: [place] EKG: NSR PMH/PSH: Hypothyroid, diverticulitis, GIB, PUD, appendectomy, former smoker, GERD, Barretts, esophageal stricture (9mm on 05/2018 EGD note below) and large hiatal hernia. Airway Difficulty: Grade III view (only epiglottis visible) - No special instrumentation Pacing Wires: Ventricular: Pulled 07/27 Chronological List of Surgeries and Major Events (Diagnosis): (Surgeries in bold characters) 07/24/2018: CABG x 3 (VASQUES to LAD, SVG to RCA, SVG to OM1) OR course: Coagulopathy/bleeding - transfused multiple products in OR CVICU: Hypotension requiring Levo gtt for MAP goal 75-85. A/P: Wires pulled 07/27, MS mayda drain has been removed too. s/p CABG - ASA, BB, statin intolerance (D/w patient and was perhaps 20 years ago his primary MD started a statin. He reports maybe dizziness? I suggested perhaps muscle aches but he is not sure. He denies any anaphylaxis or needing to be hospitalized for any med adverse reactions - will start simvastatin 20mg po daily. Patient aware of S/Sx to report and placed on discharge medication sheet.) GERD/Esophageal strictures s/p dilations, did not do a LUCRECIA in the OR, NO LUCRECIA post-op. Dispo - 77yo male from [place], [place]. CM following. F/U with OPD and Cards made. For D/C today. Discharge Planning: Anticipated Discharge Date: 07/29 Barriers to Discharge: No Barriers to Discharge, Other: NA Care Management Discharge Needs: Needs Prior to Discharge: OT/PT Evaluation Obesity, Class I, BMI 30-34.9 07/26/2018 Overview: History: POA Assessment: Body mass index is 28.62 kg/m . Plan: nutrition consult and lifestyle modification Difficult airway for intubation 07/24/2018 07/29/2018 Overview: Fairly easy mask ventilation. Intubation was difficult with Mac 3 blade. only the epiglottis was visualized, but a blind intubation was successful. Postoperative pain 07/24/2018 07/29/2018 Overview: History: Post-op Assessment: Controlled Plan: Continue scheduled daily Lidoderm patches; PRN Tylenol and Oxycodone. Atelectasis 07/24/2018 07/26/2018 Overview: Grade 3 airway A/P: Postop bibasilar. Elevated right hemidiaphragm OOB to chair. BPH. Postoperative hypotension 07/24/20182018 Overview: A/P: Arrived on Levo, wean to goal MAP 75-85. Coagulopathy 07/24/2018 07/25/2018 Overview: A/P: Coagulopathy/bleeding intraop, transfused 2plts/2FFP/5PRBC in OR, f/u coags and transfuse as needed. Hypovolemia 07/24/2018 07/25/2018 Overview: A/P: Postop fluid shifts. Volume resuscitate as needed. Pre-op testing 07/23/2018 09/19/2018 Overview[facility] Surgeon: Thom Soto M.D. Informed Consent Completed: Yes STS Score: CAD: Yes - CAD on Problem List: Yes Is intended procedure a CABG: Yes - is a beta getachew ordered? Yes H & P completed: Yes PA/LAT: Completed CT: Completed Abnormal Follow-up for these incidentally detected lung nodules with a chest CT exam is recommended in 3-6 months. If stable on follow-up imaging, a repeat chest CT exam in 12 months (15-18 months from the initial exam) is recommended MRI: N/A LE US: Completed Cath: Yes - reviewed: Yes EKG: Completed Is patient on Amiodarone? Echo:Pending today EF %: pending today PI's: Completed Carotid: Completed Mapping: Completed Dental: N/A, CABG PFT's: Completed Recent Labs 07/23/18 0835 WBC 8.10 HB 9.3* HCT 31.0* PLT 258 INR 1.0 CREAT 0.94 UA: Normal HCG:N/A ABO/ABO Confirmed: Yes, Positive antibodies Blood ordered: Yes Willing to accept blood: SA Swab: Yes - results: Pending Last Dose of Anticoagulation: Aspirin 81 mg continue Op Note: N/A Pacemaker Check: N/A Implants: no Consults: none DM: No Cardiac Surgical prep: N/A SIGNATURE: Rosalia Prakash APRN.CNP DATE of SERVICE: 07/23/2018 TIME of SERVICE: 2:40 PM CHECKED BY: [email or web address] Discharge planning issues 07/23/20182018 Overview: 77 y o m here for CABG. Resides in [place]. to [place] for 55 years. Son Harvey is supportive. Await therapy eval. Chronic left-sided low back pain with left-sided sciatica 12/09/2015 08/18/2021 Esophagitis, unspecified 08/29/2007 011 Unspecified hemorrhoids without mention of compl ication 10/20/2010 Overview: Hemorrhoids Diverticulosis of colon (without mention of hemo rrhage) 10/20/2010 Overview: Diverticulosis Peptic ulcer, unspecified si te, unspecified as acute or chronic, without mention of hemorrhage, perforation, or obstruction 05/30/2007 documented as of this encounter (statuses as of 06/08/2022) [facility]10-[facility]20[facility] History of Past illness Narrative* Problem Noted Date Resolved Date Cervical radiculopathy 12/08/2021 2 Left arm pain 12/08/2021 02/01/2022 Ileus 12/20/2018 12/24/2018 Acute blood loss anemia 12/20/2018 12/25/19 19 Acute cholecystitis 12/15/2018 12/24/2018 Transition of care performed with sharing of clinical summary 07/26/2018 09/19/2018 Overview: Indication for Surgery: CAD Preop LVEF: 59% RVF: Normal Postop LVEF: Normal RVF: Normal Cards: [place] EKG: NSR PMH/PSH: Hypothyroid, diverticulitis, GIB, PUD, appendectomy, former smoker, GERD, Barretts, esophageal stricture (9mm on 05/2018 EGD note below) and large hiatal hernia. Airway Difficulty: Grade III view (only epiglottis visible) - No special instrumentation Pacing Wires: Ventricular: Pulled 07/27 Chronological List of Surgeries and Major Events (Diagnosis): (Surgeries in bold characters) 07/24/2018: CABG x 3 (VASQUES to LAD, SVG to RCA, SVG to OM1) OR course: Coagulopathy/bleeding - transfused multiple products in OR CVICU: Hypotension requiring Levo gtt for MAP goal 75-85. A/P: Wires pulled 07/27, MS ohara drain has been removed too. s/p CABG - ASA, BB, statin intolerance (D/w patient and was perhaps 20 years ago his primary MD started a statin. He reports maybe dizziness? I suggested perhaps muscle aches but he is not sure. He denies any anaphylaxis or needing to be hospitalized for any med adverse reactions - will start simvastatin 20mg po daily. Patient aware of S/Sx to report and placed on discharge medication sheet.) GERD/Esophageal strictures s/p dilations, did not do a LUCRECIA in the OR, NO LUCRECIA post-op. Dispo - 77yo male from [place], [place]. CM following. F/U with OPD and Cards made. For D/C today. Discharge Planning: Anticipated Discharge Date: 07/29 Barriers to Discharge: No Barriers to Discharge, Other: NA Care Management Discharge Needs: Needs Prior to Discharge: OT/PT Evaluation Obesity, Class I, BMI 30-34.9 07/26/2018 Overview: History: POA Assessment: Body mass index is 28.62 kg/m . Plan: nutrition consult and lifestyle modification Difficult airway for intubation 07/24/2018 07/29/2018 Overview: Fairly easy mask ventilation. Intubation was difficult with Mac 3 blade. only the epiglottis was visualized, but a blind intubation was successful. Postoperative pain 07/24/2018 07/29/2018 Overview: History: Post-op Assessment: Controlled Plan: Continue scheduled daily Lidoderm patches; PRN Tylenol and Oxycodone. Atelectasis 07/24/2018 07/26/2018 Overview: Grade 3 airway A/P: Postop bibasilar. Elevated right hemidiaphragm OOB to chair. BPH. Postoperative hypotension 07/24/20182018 Overview: A/P: Arrived on Levo, wean to goal MAP 75-85. Coagulopathy 07/24/2018 07/25/2018 Overview: A/P: Coagulopathy/bleeding intraop, transfused 2plts/2FFP/5PRBC in OR, f/u coags and transfuse as needed. Hypovolemia 07/24/2018 07/25/2018 Overview: A/P: Postop fluid shifts. Volume resuscitate as needed. Pre-op testing 07/23/2018 09/19/2018 Overview: [facility] Surgeon: Thom Soto M.D. Informed Consent Completed: Yes STS Score: CAD: Yes - CAD on Problem List: Yes Is intended procedure a CABG: Yes - is a beta getachew ordered? Yes H & P completed: Yes PA/LAT: Completed CT: Completed Abnormal Follow-up for these incidentally detected lung nodules with a chest CT exam is recommended in 3-6 months. If stable on follow-up imaging, a repeat chest CT exam in 12 months (15-18 months from the initial exam) is recommended MRI: N/A LE US: Completed Cath: Yes - reviewed: Yes EKG: Completed Is patient on Amiodarone? Echo:Pending today EF %: pending today PI's: Completed Carotid: Completed Mapping: Completed Dental: N/A, CABG PFT's: Completed Recent Labs 07/23/18 0835 WBC 8.10 HB 9.3* HCT 31.0* PLT 258 INR 1.0 CREAT 0.94 UA: Normal HCG:N/A ABO/ABO Confirmed: Yes, Positive antibodies Blood ordered: Yes Willing to accept blood: SA Swab: Yes - results: Pending Last Dose of Anticoagulation: Aspirin 81 mg continue Op Note: N/A Pacemaker Check: N/A Implants: no Consults: none DM: No Cardiac Surgical prep: N/A SIGNATURE: Rosalia Prkaash APRN.CNP DATE of SERVICE: 07/23/2018 TIME of SERVICE: 2:40 PM CHECKED BY: [email or web address] Discharge planning issues 07/23/20182018 Overview: 77 y o m here for CABG. Resides in [place]. to [place] for 55 years. Son Harvey is supportive. Await therapy eval. Chronic left-sided low back pain with left-sided sciatica 12/09/2015 08/18/2021 Esophagitis, unspecified 08/29/2007 011 Unspecified hemorrhoids without mention of compl ication 10/20/2010 Overview: Hemorrhoids Diverticulosis of colon (without mention of hemo rrhage) 10/20/2010 Overview: Diverticulosis Peptic ulcer, unspecified si te, unspecified as acute or chronic, without mention of hemorrhage, perforation, or obstruction 05/30/2007 documented as of this encounter (statuses as of 06/09/2022) [facility] History of Past illness Narrative* Problem Noted Date Resolved Date Cervical radiculopathy 12/08/2021 2 Left arm pain 12/08/2021 02/01/2022 Ileus 12/20/2018 12/24/2018 Acute blood loss anemia 12/20/2018 12/25/19 19 Acute cholecystitis 12/15/2018 12/24/2018 Transition of care performed with sharing of clinical summary 07/26/2018 09/19/2018 Overview: Indication for Surgery: CAD Preop LVEF: 59% RVF: Normal Postop LVEF: Normal RVF: Normal Cards: [place] EKG: NSR PMH/PSH: Hypothyroid, diverticulitis, GIB, PUD, appendectomy, former smoker, GERD, Barretts, esophageal stricture (9mm on 05/2018 EGD note below) and large hiatal hernia. Airway Difficulty: Grade III view (only epiglottis visible) - No special instrumentation Pacing Wires: Ventricular: Pulled 07/27 Chronological List of Surgeries and Major Events (Diagnosis): (Surgeries in bold characters) 07/24/2018: CABG x 3 (VASQUES to LAD, SVG to RCA, SVG to OM1) OR course: Coagulopathy/bleeding - transfused multiple products in OR CVICU: Hypotension requiring Levo gtt for MAP goal 75-85. A/P: Wires pulled 07/27, MS ohara drain has been removed too. s/p CABG - ASA, BB, statin intolerance (D/w patient and was perhaps 20 years ago his primary MD started a statin. He reports maybe dizziness? I suggested perhaps muscle aches but he is not sure. He denies any anaphylaxis or needing to be hospitalized for any med adverse reactions - will start simvastatin 20mg po daily. Patient aware of S/Sx to report and placed on discharge medication sheet.) GERD/Esophageal strictures s/p dilations, did not do a LUCRECIA in the OR, NO LUCRECIA post-op. Dispo - 77yo male from [place], [place]. CM following. F/U with OPD and Cards made. For D/C today. Discharge Planning: Anticipated Discharge Date: 07/29 Barriers to Discharge: No Barriers to Discharge, Other: NA Care Management Discharge Needs: Needs Prior to Discharge: OT/PT Evaluation Obesity, Class I, BMI 30-34.9 07/26/2018 Overview: History: POA Assessment: Body mass index is 28.62 kg/m . Plan: nutrition consult and lifestyle modification Difficult airway for intubation 07/24/2018 07/29/2018 Overview: Fairly easy mask ventilation. Intubation was difficult with Mac 3 blade. only the epiglottis was visualized, but a blind intubation was successful. Postoperative pain 07/24/2018 07/29/2018 Overview: History: Post-op Assessment: Controlled Plan: Continue scheduled daily Lidoderm patches; PRN Tylenol and Oxycodone. Atelectasis 07/24/2018 07/26/2018 Overview: Grade 3 airway A/P: Postop bibasilar. Elevated right hemidiaphragm OOB to chair. BPH. Postoperative hypotension 07/24/20182018 Overview: A/P: Arrived on Levo, wean to goal MAP 75-85. Coagulopathy 07/24/2018 07/25/2018 Overview: A/P: Coagulopathy/bleeding intraop, transfused 2plts/2FFP/5PRBC in OR, f/u coags and transfuse as needed. Hypovolemia 07/24/2018 07/25/2018 Overview: A/P: Postop fluid shifts. Volume resuscitate as needed. Pre-op testing 07/23/2018 09/19/2018 Overview: [facility] Surgeon: Thom Soto M.D. Informed Consent Completed: Yes STS Score: CAD: Yes - CAD on Problem List: Yes Is intended procedure a CABG: Yes - is a beta getachew ordered? Yes H & P completed: Yes PA/LAT: Completed CT: Completed Abnormal Follow-up for these incidentally detected lung nodules with a chest CT exam is recommended in 3-6 months. If stable on follow-up imaging, a repeat chest CT exam in 12 months (15-18 months from the initial exam) is recommended MRI: N/A LE US: Completed Cath: Yes - reviewed: Yes EKG: Completed Is patient on Amiodarone? Echo:Pending today EF %: pending today PI's: Completed Carotid: Completed Mapping: Completed Dental: N/A, CABG PFT's: Completed Recent Labs 07/23/18 0835 WBC 8.10 HB 9.3* HCT 31.0* PLT 258 INR 1.0 CREAT 0.94 UA: Normal HCG:N/A ABO/ABO Confirmed: Yes, Positive antibodies Blood ordered: Yes Willing to accept blood: SA Swab: Yes - results: Pending Last Dose of Anticoagulation: Aspirin 81 mg continue Op Note: N/A Pacemaker Check: N/A Implants: no Consults: none DM: No Cardiac Surgical prep: N/A SIGNATURE: Rosalia Prakash APRN.CNP DATE of SERVICE: 07/23/2018 TIME of SERVICE: 2:40 PM CHECKED BY: amber Discharge planning issues 07/23/20182018 Overview: 77 y o m here for CABG. Resides in [place]. to [place] for 55 years. Son Harvey is supportive. Await therapy eval. Chronic left-sided low back pain with left-sided sciatica 12/09/2015 08/18/2021 Esophagitis, unspecified 08/29/2007 011 Unspecified hemorrhoids without mention of compl ication 10/20/2010 Overview: Hemorrhoids Diverticulosis of colon (without mention of hemo rrhage) 10/20/2010 Overview: Diverticulosis Peptic ulcer, unspecified si te, unspecified as acute or chronic, without mention of hemorrhage, perforation, or obstruction 05/30/2007 documented as of this encounter (statuses as of 06/23/2022) [facility] History of Past illness Narrative* Problem Noted Date Resolved Date Cervical radiculopathy 12/08/2021 2 Left arm pain 12/08/2021 02/01/2022 Ileus 12/20/2018 12/24/2018 Acute blood loss anemia 12/20/2018 12/25/19 19 Acute cholecystitis 12/15/2018 12/24/2018 Transition of care performed with sharing of clinical summary 07/26/2018 09/19/2018 Overview: Indication for Surgery: CAD Preop LVEF: 59% RVF: Normal Postop LVEF: Normal RVF: Normal Cards: [place] EKG: NSR PMH/PSH: Hypothyroid, diverticulitis, GIB, PUD, appendectomy, former smoker, GERD, Barretts, esophageal stricture (9mm on 05/2018 EGD note below) and large hiatal hernia. Airway Difficulty: Grade III view (only epiglottis visible) - No special instrumentation Pacing Wires: Ventricular: Pulled 07/27 Chronological List of Surgeries and Major Events (Diagnosis): (Surgeries in bold characters) 07/24/2018: CABG x 3 (VASQUES to LAD, SVG to RCA, SVG to OM1) OR course: Coagulopathy/bleeding - transfused multiple products in OR CVICU: Hypotension requiring Levo gtt for MAP goal 75-85. A/P: Wires pulled 07/27, MS ohara drain has been removed too. s/p CABG - ASA, BB, statin intolerance (D/w patient and was perhaps 20 years ago his primary MD started a statin. He reports maybe dizziness? I suggested perhaps muscle aches but he is not sure. He denies any anaphylaxis or needing to be hospitalized for any med adverse reactions - will start simvastatin 20mg po daily. Patient aware of S/Sx to report and placed on discharge medication sheet.) GERD/Esophageal strictures s/p dilations, did not do a LUCRECIA in the OR, NO LUCRECIA post-op. Dispo - 77yo male from [place], [place]. CM following. F/U with OPD and Cards made. For D/C today. Discharge Planning: Anticipated Discharge Date: 07/29 Barriers to Discharge: No Barriers to Discharge, Other: NA Care Management Discharge Needs: Needs Prior to Discharge: OT/PT Evaluation Obesity, Class I, BMI 30-34.9 07/26/2018 Overview: History: POA Assessment: Body mass index is 28.62 kg/m . Plan: nutrition consult and lifestyle modification Difficult airway for intubation 07/24/2018 07/29/2018 Overview: Fairly easy mask ventilation. Intubation was difficult with Mac 3 blade. only the epiglottis was visualized, but a blind intubation was successful. Postoperative pain 07/24/2018 07/29/2018 Overview: History: Post-op Assessment: Controlled Plan: Continue scheduled daily Lidoderm patches; PRN Tylenol and Oxycodone. Atelectasis 07/24/2018 07/26/2018 Overview: Grade 3 airway A/P: Postop bibasilar. Elevated right hemidiaphragm OOB to chair. BPH. Postoperative hypotension 07/24/20182018 Overview: A/P: Arrived on Levo, wean to goal MAP 75-85. Coagulopathy 07/24/2018 07/25/2018 Overview: A/P: Coagulopathy/bleeding intraop, transfused 2plts/2FFP/5PRBC in OR, f/u coags and transfuse as needed. Hypovolemia 07/24/2018 07/25/2018 Overview: A/P: Postop fluid shifts. Volume resuscitate as needed. Pre-op testing 07/23/2018 09/19/2018 Overview: [facility] Surgeon: Thom Soto M.D. Informed Consent Completed: Yes STS Score: CAD: Yes - CAD on Problem List: Yes Is intended procedure a CABG: Yes - is a beta getachew ordered? Yes H & P completed: Yes PA/LAT: Completed CT: Completed Abnormal Follow-up for these incidentally detected lung nodules with a chest CT exam is recommended in 3-6 months. If stable on follow-up imaging, a repeat chest CT exam in 12 months (15-18 months from the initial exam) is recommended MRI: N/A LE US: Completed Cath: Yes - reviewed: Yes EKG: Completed Is patient on Amiodarone? Echo:Pending today EF %: pending today PI's: Completed Carotid: Completed Mapping: Completed Dental: N/A, CABG PFT's: Completed Recent Labs 07/23/18 0835 WBC 8.10 HB 9.3* HCT 31.0* PLT 258 INR 1.0 CREAT 0.94 UA: Normal HCG:N/A ABO/ABO Confirmed: Yes, Positive antibodies Blood ordered: Yes Willing to accept blood: SA Swab: Yes - results: Pending Last Dose of Anticoagulation: Aspirin 81 mg continue Op Note: N/A Pacemaker Check: N/A Implants: no Consults: none DM: No Cardiac Surgical prep: N/A SIGNATURE: Rosalia Prakash APRN.CNP DATE of SERVICE: 07/23/2018 TIME of SERVICE: 2:40 PM CHECKED BY: amber Discharge planning issues 07/23/20182018 Overview: 77 y o m here for CABG. Resides in [place]. to [place] for 55 years. Son Harvey is supportive. Await therapy eval. Chronic left-sided low back pain with left-sided sciatica 12/09/2015 08/18/2021 Esophagitis, unspecified 08/29/2007 011 Unspecified hemorrhoids without mention of compl ication 10/20/2010 Overview: Hemorrhoids Diverticulosis of colon (without mention of hemo rrhage) 10/20/2010 Overview: Diverticulosis Peptic ulcer, unspecified si te, unspecified as acute or chronic, without mention of hemorrhage, perforation, or obstruction 05/30/2007 documented as of this encounter (statuses as of 06/25/2022) [facility] History of Past illness Narrative* Problem Noted Date Resolved Date Cervical radiculopathy 12/08/2021 2 Left arm pain 12/08/2021 02/01/2022 Ileus 12/20/2018 12/24/2018 Acute blood loss anemia 12/20/2018 12/25/19 19 Acute cholecystitis 12/15/2018 12/24/2018 Transition of care performed with sharing of clinical summary 07/26/2018 09/19/2018 Overview: Indication for Surgery: CAD Preop LVEF: 59% RVF: Normal Postop LVEF: Normal RVF: Normal Cards: [place] EKG: NSR PMH/PSH: Hypothyroid, diverticulitis, GIB, PUD, appendectomy, former smoker, GERD, Barretts, esophageal stricture (9mm on 05/2018 EGD note below) and large hiatal hernia. Airway Difficulty: Grade III view (only epiglottis visible) - No special instrumentation Pacing Wires: Ventricular: Pulled 07/27 Chronological List of Surgeries and Major Events (Diagnosis): (Surgeries in bold characters) 07/24/2018: CABG x 3 (VASQUES to LAD, SVG to RCA, SVG to OM1) OR course: Coagulopathy/bleeding - transfused multiple products in OR CVICU: Hypotension requiring Levo gtt for MAP goal 75-85. A/P: Wires pulled 07/27, MS mayda drain has been removed too. s/p CABG - ASA, BB, statin intolerance (D/w patient and was perhaps 20 years ago his primary MD started a statin. He reports maybe dizziness? I suggested perhaps muscle aches but he is not sure. He denies any anaphylaxis or needing to be hospitalized for any med adverse reactions - will start simvastatin 20mg po daily. Patient aware of S/Sx to report and placed on discharge medication sheet.) GERD/Esophageal strictures s/p dilations, did not do a LUCRECIA in the OR, NO LUCRECIA post-op. Dispo - 77yo male from [place], [place]. CM following. F/U with OPD and Cards made. For D/C today. Discharge Planning: Anticipated Discharge Date: 07/29 Barriers to Discharge: No Barriers to Discharge, Other: NA Care Management Discharge Needs: Needs Prior to Discharge: OT/PT Evaluation Obesity, Class I, BMI 30-34.9 07/26/2018 Overview: History: POA Assessment: Body mass index is 28.62 kg/m . Plan: nutrition consult and lifestyle modification Difficult airway for intubation 07/24/2018 07/29/2018 Overview: Fairly easy mask ventilation. Intubation was difficult with Mac 3 blade. only the epiglottis was visualized, but a blind intubation was successful. Postoperative pain 07/24/2018 07/29/2018 Overview: History: Post-op Assessment: Controlled Plan: Continue scheduled daily Lidoderm patches; PRN Tylenol and Oxycodone. Atelectasis 07/24/2018 07/26/2018 Overview: Grade 3 airway A/P: Postop bibasilar. Elevated right hemidiaphragm OOB to chair. BPH. Postoperative hypotension 07/24/20182018 Overview: A/P: Arrived on Levo, wean to goal MAP 75-85. Coagulopathy 07/24/2018 07/25/2018 Overview: A/P: Coagulopathy/bleeding intraop, transfused 2plts/2FFP/5PRBC in OR, f/u coags and transfuse as needed. Hypovolemia 07/24/2018 07/25/2018 Overview: A/P: Postop fluid shifts. Volume resuscitate as needed. Pre-op testing 07/23/2018 09/19/2018 Overview: [facility] Surgeon: Thom Soto M.D. Informed Consent Completed: Yes STS Score: CAD: Yes - CAD on Problem List: Yes Is intended procedure a CABG: Yes - is a beta getachew ordered? Yes H & P completed: Yes PA/LAT: Completed CT: Completed Abnormal Follow-up for these incidentally detected lung nodules with a chest CT exam is recommended in 3-6 months. If stable on follow-up imaging, a repeat chest CT exam in 12 months (15-18 months from the initial exam) is recommended MRI: N/A LE US: Completed Cath: Yes - reviewed: Yes EKG: Completed Is patient on Amiodarone? Echo:Pending today EF %: pending today PI's: Completed Carotid: Completed Mapping: Completed Dental: N/A, CABG PFT's: Completed Recent Labs 07/23/18 0835 WBC 8.10 HB 9.3* HCT 31.0* PLT 258 INR 1.0 CREAT 0.94 UA: Normal HCG:N/A ABO/ABO Confirmed: Yes, Positive antibodies Blood ordered: Yes Willing to accept blood: SA Swab: Yes - results: Pending Last Dose of Anticoagulation: Aspirin 81 mg continue Op Note: N/A Pacemaker Check: N/A Implants: no Consults: none DM: No Cardiac Surgical prep: N/A SIGNATURE: Rosalia Prakash APRN.CNP DATE of SERVICE: 07/23/2018 TIME of SERVICE: 2:40 PM CHECKED BY: [email or web address] Discharge planning issues 07/23/20182018 Overview: 77 y o m here for CABG. Resides in [place]. to [place] for 55 years. Son Harvey is supportive. Await therapy eval. Chronic left-sided low back pain with left-sided sciatica 12/09/2015 08/18/2021 Esophagitis, unspecified 08/29/2007 011 Unspecified hemorrhoids without mention of compl ication 10/20/2010 Overview: Hemorrhoids Diverticulosis of colon (without mention of hemo rrhage) 10/20/2010 Overview: Diverticulosis Peptic ulcer, unspecified si te, unspecified as acute or chronic, without mention of hemorrhage, perforation, or obstruction 05/30/2007 documented as of this encounter (statuses as of 08/03/2022) [facility]10-27-2022 History of Past illness Narrative* Problem Noted Date Resolved Date Cervical radiculopathy 12/08/2021 2 Left arm pain 12/08/2021 02/01/2022 Ileus 12/20/2018 12/24/2018 Acute blood loss anemia 12/20/2018 12/25/19 19 Acute cholecystitis 12/15/2018 12/24/2018 Transition of care performed with sharing of clinical summary 07/26/2018 09/19/2018 Overview: Indication for Surgery: CAD Preop LVEF: 59% RVF: Normal Postop LVEF: Normal RVF: Normal Cards: [place] EKG: NSR PMH/PSH: Hypothyroid, diverticulitis, GIB, PUD, appendectomy, former smoker, GERD, Barretts, esophageal stricture (9mm on 05/2018 EGD note below) and large hiatal hernia. Airway Difficulty: Grade III view (only epiglottis visible) - No special instrumentation Pacing Wires: Ventricular: Pulled 07/27 Chronological List of Surgeries and Major Events (Diagnosis): (Surgeries in bold characters) 07/24/2018: CABG x 3 (VASQUES to LAD, SVG to RCA, SVG to OM1) OR course: Coagulopathy/bleeding - transfused multiple products in OR CVICU: Hypotension requiring Levo gtt for MAP goal 75-85. A/P: Wires pulled 07/27, MS mayda drain has been removed too. s/p CABG - ASA, BB, statin intolerance (D/w patient and was perhaps 20 years ago his primary MD started a statin. He reports maybe dizziness? I suggested perhaps muscle aches but he is not sure. He denies any anaphylaxis or needing to be hospitalized for any med adverse reactions - will start simvastatin 20mg po daily. Patient aware of S/Sx to report and placed on discharge medication sheet.) GERD/Esophageal strictures s/p dilations, did not do a LUCRECIA in the OR, NO LUCRECIA post-op. Dispo - 77yo male from [place], [place]. CM following. F/U with OPD and Cards made. For D/C today. Discharge Planning: Anticipated Discharge Date: 07/29 Barriers to Discharge: No Barriers to Discharge, Other: NA Care Management Discharge Needs: Needs Prior to Discharge: OT/PT Evaluation Obesity, Class I, BMI 30-34.9 07/26/2018 Overview: History: POA Assessment: Body mass index is 28.62 kg/m . Plan: nutrition consult and lifestyle modification Difficult airway for intubation 07/24/2018 07/29/2018 Overview: Fairly easy mask ventilation. Intubation was difficult with Mac 3 blade. only the epiglottis was visualized, but a blind intubation was successful. Postoperative pain 07/24/2018 07/29/2018 Overview: History: Post-op Assessment: Controlled Plan: Continue scheduled daily Lidoderm patches; PRN Tylenol and Oxycodone. Atelectasis 07/24/2018 07/26/2018 Overview: Grade 3 airway A/P: Postop bibasilar. Elevated right hemidiaphragm OOB to chair. BPH. Postoperative hypotension 07/24/20182018 Overview: A/P: Arrived on Levo, wean to goal MAP 75-85. Coagulopathy 07/24/2018 07/25/2018 Overview: A/P: Coagulopathy/bleeding intraop, transfused 2plts/2FFP/5PRBC in OR, f/u coags and transfuse as needed. Hypovolemia 07/24/2018 07/25/2018 Overview: A/P: Postop fluid shifts. Volume resuscitate as needed. Pre-op testing 07/23/2018 09/19/2018 Overview: [facility] Surgeon: Thom Soto M.D. Informed Consent Completed: Yes STS Score: CAD: Yes - CAD on Problem List: Yes Is intended procedure a CABG: Yes - is a beta getachew ordered? Yes H & P completed: Yes PA/LAT: Completed CT: Completed Abnormal Follow-up for these incidentally detected lung nodules with a chest CT exam is recommended in 3-6 months. If stable on follow-up imaging, a repeat chest CT exam in 12 months (15-18 months from the initial exam) is recommended MRI: N/A LE US: Completed Cath: Yes - reviewed: Yes EKG: Completed Is patient on Amiodarone? Echo:Pending today EF %: pending today PI's: Completed Carotid: Completed Mapping: Completed Dental: N/A, CABG PFT's: Completed Recent Labs 07/23/18 0835 WBC 8.10 HB 9.3* HCT 31.0* PLT 258 INR 1.0 CREAT 0.94 UA: Normal HCG:N/A ABO/ABO Confirmed: Yes, Positive antibodies Blood ordered: Yes Willing to accept blood: SA Swab: Yes - results: Pending Last Dose of Anticoagulation: Aspirin 81 mg continue Op Note: N/A Pacemaker Check: N/A Implants: no Consults: none DM: No Cardiac Surgical prep: N/A SIGNATURE: Rosalia Prakash APRN.CNP DATE of SERVICE: 07/23/2018 TIME of SERVICE: 2:40 PM CHECKED BY: amber Discharge planning issues 07/23/20182018 Overview: 77 y o m here for CABG. Resides in [place]. to [place] for 55 years. Son Harvey is supportive. Await therapy eval. Chronic left-sided low back pain with left-sided sciatica 12/09/2015 08/18/2021 Esophagitis, unspecified 08/29/2007 011 Unspecified hemorrhoids without mention of compl ication 10/20/2010 Overview: Hemorrhoids Diverticulosis of colon (without mention of hemo rrhage) 10/20/2010 Overview: Diverticulosis Peptic ulcer, unspecified si te, unspecified as acute or chronic, without mention of hemorrhage, perforation, or obstruction 05/30/2007 documented as of this encounter (statuses as of 08/17/2022) [facility] History of Past illness Narrative* Problem Noted Date Diagnosed Date Resolved Date Cervical radiculopathy 12/08/202102/01 Left arm pain 12/08/2021 02/01/2022 Ileus 12/20/2018 12/24/2018 Acute blood loss anemia 12/20/201812/13 Acute cholecystitis 12/15/2018 12/25/19 19 Transition of care performed with sharing of clinical summary 07/26/2018 09/19/2018 Overview: Indication for Surgery: CAD Preop LVEF: 59% RVF: Normal Postop LVEF: Normal RVF: Normal Cards: [place] EKG: NSR PMH/PSH: Hypothyroid, diverticulitis, GIB, PUD, appendectomy, former smoker, GERD, Barretts, esophageal stricture (9mm on 05/2018 EGD note below) and large hiatal hernia. Airway Difficulty: Grade III view (only epiglottis visible) - No special instrumentation Pacing Wires: Ventricular: Pulled 07/27 Chronological List of Surgeries and Major Events (Diagnosis): (Surgeries in bold characters) 07/24/2018: CABG x 3 (VASQUES to LAD, SVG to RCA, SVG to OM1) OR course: Coagulopathy/bleeding - transfused multiple products in OR CVICU: Hypotension requiring Levo gtt for MAP goal 75-85. A/P: Wires pulled 07/27, MS mayda drain has been removed too. s/p CABG - ASA, BB, statin intolerance (D/w patient and was perhaps 20 years ago his primary MD started a statin. He reports maybe dizziness? I suggested perhaps muscle aches but he is not sure. He denies any anaphylaxis or needing to be hospitalized for any med adverse reactions - will start simvastatin 20mg po daily. Patient aware of S/Sx to report and placed on discharge medication sheet.) GERD/Esophageal strictures s/p dilations, did not do a LUCRECIA in the OR, NO LUCRECIA post-op. Dispo - 77yo male from [place], [place]. CM following. F/U with OPD and Cards made. For D/C today. Discharge Planning: Anticipated Discharge Date: 07/29 Barriers to Discharge: No Barriers to Discharge, Other: NA Care Management Discharge Needs: Needs Prior to Discharge: OT/PT Evaluation Obesity, Class I, BMI 30-34.9 07/26/2018 09/19/2018 Overview: History: POA Assessment: Body mass index is 28.62 kg/m . Plan: nutrition consult and lifestyle modification Difficult airway for intubation 07/24/2018 07/29/2018 Overview: Fairly easy mask ventilation. Intubation was difficult with Mac 3 blade. only the epiglottis was visualized, but a blind intubation was successful. Postoperative pain 07/24/2018201 9 Overview: History: Post-op Assessment: Controlled Plan: Continue scheduled daily Lidoderm patches; PRN Tylenol and Oxycodone. Atelectasis 07/24/2018 07/26/2018 Overview: Grade 3 airway A/P: Postop bibasilar. Elevated right hemidiaphragm OOB to chair. BPH. Postoperative hypotension 07/24/2018 Overview: A/P: Arrived on Levo, wean to goal MAP 75-85. Coagulopathy 07/24/2018 07/25/2018 Overview: A/P: Coagulopathy/bleeding intraop, transfused 2plts/2FFP/5PRBC in OR, f/u coags and transfuse as needed. Hypovolemia 07/24/2018 07/25/2018 Overview: A/P: Postop fluid shifts. Volume resuscitate as needed. Pre-op testing 07/23/2018 09/19/2018 Overview: [facility] Surgeon: Thom Soto M.D. Informed Consent Completed: Yes STS Score: CAD: Yes - CAD on Problem List: Yes Is intended procedure a CABG: Yes - is a beta getachew ordered? Yes H & P completed: Yes PA/LAT: Completed CT: Completed Abnormal Follow-up for these incidentally detected lung nodules with a chest CT exam is recommended in 3-6 months. If stable on follow-up imaging, a repeat chest CT exam in 12 months (15-18 months from the initial exam) is recommended MRI: N/A LE US: Completed Cath: Yes - reviewed: Yes EKG: Completed Is patient on Amiodarone? Echo:Pending today EF %: pending today PI's: Completed Carotid: Completed Mapping: Completed Dental: N/A, CABG PFT's: Completed Recent Labs 07/23/18 0835 WBC 8.10 HB 9.3* HCT 31.0* PLT 258 INR 1.0 CREAT 0.94 UA: Normal HCG:N/A ABO/ABO Confirmed: Yes, Positive antibodies Blood ordered: Yes Willing to accept blood: SA Swab: Yes - results: Pending Last Dose of Anticoagulation: Aspirin 81 mg continue Op Note: N/A Pacemaker Check: N/A Implants: no Consults: none DM: No Cardiac Surgical prep: N/A SIGNATURE: Rosalia Prakash APRN.CNP DATE of SERVICE: 07/23/2018 TIME of SERVICE: 2:40 PM CHECKED BY: [email or web address] Discharge planning issues 07/23/2018 Overview: 77 y o m here for CABG. Resides in [place]. to [place] for 55 years. Son Harvey is supportive. Await therapy eval. Chronic left-sided low back pain with left-sided sciatica 12/09/2015 08/18/2021 Esophagitis, unspecified 08/29/200709/2010 Unspecified hemorrhoids with out mention of complication 10/20/2010 Overview: Hemorrhoids Diverticulosis of colon (wit cornelio mention of hemorrhage) 10/20/2010 Overview: Diverticulosis Peptic ulcer, unspecified si te, unspecified as acute or chronic, without mention of hemorrhage, perforation, or obstruction 05/30/2007 documented as of this encounter (statuses as of 08/24/2022) [facility] History of Past illness Narrative* Problem Noted Date Diagnosed Date Resolved Date Cervical radiculopathy 12/08/202102/01 Left arm pain 12/08/2021 02/01/2022 Ileus 12/20/2018 12/24/2018 Acute blood loss anemia 12/20/201812/13 Acute cholecystitis 12/15/2018 12/25/19 19 Transition of care performed with sharing of clinical summary 07/26/2018 09/19/2018 Overview: Indication for Surgery: CAD Preop LVEF: 59% RVF: Normal Postop LVEF: Normal RVF: Normal Cards: [place] EKG: NSR PMH/PSH: Hypothyroid, diverticulitis, GIB, PUD, appendectomy, former smoker, GERD, Barretts, esophageal stricture (9mm on 05/2018 EGD note below) and large hiatal hernia. Airway Difficulty: Grade III view (only epiglottis visible) - No special instrumentation Pacing Wires: Ventricular: Pulled 07/27 Chronological List of Surgeries and Major Events (Diagnosis): (Surgeries in bold characters) 07/24/2018: CABG x 3 (VASQUES to LAD, SVG to RCA, SVG to OM1) OR course: Coagulopathy/bleeding - transfused multiple products in OR CVICU: Hypotension requiring Levo gtt for MAP goal 75-85. A/P: Wires pulled 07/27, MS [place]ara drain has been removed too. s/p CABG - ASA, BB, statin intolerance (D/w patient and was perhaps 20 years ago his primary MD started a statin. He reports maybe dizziness? I suggested perhaps muscle aches but he is not sure. He denies any anaphylaxis or needing to be hospitalized for any med adverse reactions - will start simvastatin 20mg po daily. Patient aware of S/Sx to report and placed on discharge medication sheet.) GERD/Esophageal strictures s/p dilations, did not do a LUCRECIA in the OR, NO LUCRECIA post-op. Dispo - 77yo male from [place], [place]. CM following. F/U with OPD and Cards made. For D/C today. Discharge Planning: Anticipated Discharge Date: 07/29 Barriers to Discharge: No Barriers to Discharge, Other: NA Care Management Discharge Needs: Needs Prior to Discharge: OT/PT Evaluation Obesity, Class I, BMI 30-34.9 07/26/2018 09/19/2018 Overview: History: POA Assessment: Body mass index is 28.62 kg/m . Plan: nutrition consult and lifestyle modification Difficult airway for intubation 07/24/2018 07/29/2018 Overview: Fairly easy mask ventilation. Intubation was difficult with Mac 3 blade. only the epiglottis was visualized, but a blind intubation was successful. Postoperative pain 07/24/2018 9 Overview: History: Post-op Assessment: Controlled Plan: Continue scheduled daily Lidoderm patches; PRN Tylenol and Oxycodone. Atelectasis 07/24/2018 07/26/2018 Overview: Grade 3 airway A/P: Postop bibasilar. Elevated right hemidiaphragm OOB to chair. BPH. Postoperative hypotension 07/24/2018 Overview: A/P: Arrived on Levo, wean to goal MAP 75-85. Coagulopathy 07/24/2018 07/25/2018 Overview: A/P: Coagulopathy/bleeding intraop, transfused 2plts/2FFP/5PRBC in OR, f/u coags and transfuse as needed. Hypovolemia 07/24/2018 07/25/2018 Overview: A/P: Postop fluid shifts. Volume resuscitate as needed. Pre-op testing 07/23/2018 09/19/2018 Overview: [facility] Surgeon: Thom Soto M.D. Informed Consent Completed: Yes STS Score: CAD: Yes - CAD on Problem List: Yes Is intended procedure a CABG: Yes - is a beta getachew ordered? Yes H & P completed: Yes PA/LAT: Completed CT: Completed Abnormal Follow-up for these incidentally detected lung nodules with a chest CT exam is recommended in 3-6 months. If stable on follow-up imaging, a repeat chest CT exam in 12 months (15-18 months from the initial exam) is recommended MRI: N/A LE US: Completed Cath: Yes - reviewed: Yes EKG: Completed Is patient on Amiodarone? Echo:Pending today EF %: pending today PI's: Completed Carotid: Completed Mapping: Completed Dental: N/A, CABG PFT's: Completed Recent Labs 07/23/18 0835 WBC 8.10 HB 9.3* HCT 31.0* PLT 258 INR 1.0 CREAT 0.94 UA: Normal HCG:N/A ABO/ABO Confirmed: Yes, Positive antibodies Blood ordered: Yes Willing to accept blood: SA Swab: Yes - results: Pending Last Dose of Anticoagulation: Aspirin 81 mg continue Op Note: N/A Pacemaker Check: N/A Implants: no Consults: none DM: No Cardiac Surgical prep: N/A SIGNATURE: Rosalia Prakash APRN.CNP DATE of SERVICE: 07/23/2018 TIME of SERVICE: 2:40 PM CHECKED BY: amber Discharge planning issues 07/23/2018 Overview: 77 y o m here for CABG. Resides in [place]. to [place] for 55 years. Son Harvey is supportive. Await therapy eval. Chronic left-sided low back pain with left-sided sciatica 12/09/2015 08/18/2021 Esophagitis, unspecified 08/29/200709/2010 Unspecified hemorrhoids with out mention of complication 10/20/2010 Overview: Hemorrhoids Diverticulosis of colon (wit cornelio mention of hemorrhage) 10/20/2010 Overview: Diverticulosis Peptic ulcer, unspecified si te, unspecified as acute or chronic, without mention of hemorrhage, perforation, or obstruction 05/30/2007 documented as of this encounter (statuses as of 08/24/2022) [facility] History of Past illness Narrative* Problem Noted Date Diagnosed Date Resolved Date Cervical radiculopathy 12/08/202102/01 Left arm pain 12/08/2021 02/01/2022 Ileus 12/20/2018 12/24/2018 Acute blood loss anemia 12/20/201812/13 Acute cholecystitis 12/15/2018 12/25/19 19 Transition of care performed with sharing of clinical summary 07/26/2018 09/19/2018 Overview: Indication for Surgery: CAD Preop LVEF: 59% RVF: Normal Postop LVEF: Normal RVF: Normal Cards: [place] EKG: NSR PMH/PSH: Hypothyroid, diverticulitis, GIB, PUD, appendectomy, former smoker, GERD, Barretts, esophageal stricture (9mm on 05/2018 EGD note below) and large hiatal hernia. Airway Difficulty: Grade III view (only epiglottis visible) - No special instrumentation Pacing Wires: Ventricular: Pulled 07/27 Chronological List of Surgeries and Major Events (Diagnosis): (Surgeries in bold characters) 07/24/2018: CABG x 3 (VASQUES to LAD, SVG to RCA, SVG to OM1) OR course: Coagulopathy/bleeding - transfused multiple products in OR CVICU: Hypotension requiring Levo gtt for MAP goal 75-85. A/P: Wires pulled 07/27, MS mayda drain has been removed too. s/p CABG - ASA, BB, statin intolerance (D/w patient and was perhaps 20 years ago his primary MD started a statin. He reports maybe dizziness? I suggested perhaps muscle aches but he is not sure. He denies any anaphylaxis or needing to be hospitalized for any med adverse reactions - will start simvastatin 20mg po daily. Patient aware of S/Sx to report and placed on discharge medication sheet.) GERD/Esophageal strictures s/p dilations, did not do a LUCRECIA in the OR, NO LUCRECIA post-op. Dispo - 77yo male from [place], [place]. CM following. F/U with OPD and Cards made. For D/C today. Discharge Planning: Anticipated Discharge Date: 07/29 Barriers to Discharge: No Barriers to Discharge, Other: NA Care Management Discharge Needs: Needs Prior to Discharge: OT/PT Evaluation Obesity, Class I, BMI 30-34.9 07/26/2018 09/19/2018 Overview: History: POA Assessment: Body mass index is 28.62 kg/m . Plan: nutrition consult and lifestyle modification Difficult airway for intubation 07/24/2018 07/29/2018 Overview: Fairly easy mask ventilation. Intubation was difficult with Mac 3 blade. only the epiglottis was visualized, but a blind intubation was successful. Postoperative pain 07/24/2018 06/201 9 Overview: History: Post-op Assessment: Controlled Plan: Continue scheduled daily Lidoderm patches; PRN Tylenol and Oxycodone. Atelectasis 07/24/2018 07/26/2018 Overview: Grade 3 airway A/P: Postop bibasilar. Elevated right hemidiaphragm OOB to chair. BPH. Postoperative hypotension 07/24/2018 Overview: A/P: Arrived on Levo, wean to goal MAP 75-85. Coagulopathy 07/24/2018 07/25/2018 Overview: A/P: Coagulopathy/bleeding intraop, transfused 2plts/2FFP/5PRBC in OR, f/u coags and transfuse as needed. Hypovolemia 07/24/2018 07/25/2018 Overview: A/P: Postop fluid shifts. Volume resuscitate as needed. Pre-op testing 07/23/2018 09/19/2018 Overview: [facility] Surgeon: Thom Soto M.D. Informed Consent Completed: Yes STS Score: CAD: Yes - CAD on Problem List: Yes Is intended procedure a CABG: Yes - is a beta getachew ordered? Yes H & P completed: Yes PA/LAT: Completed CT: Completed Abnormal Follow-up for these incidentally detected lung nodules with a chest CT exam is recommended in 3-6 months. If stable on follow-up imaging, a repeat chest CT exam in 12 months (15-18 months from the initial exam) is recommended MRI: N/A LE US: Completed Cath: Yes - reviewed: Yes EKG: Completed Is patient on Amiodarone? Echo:Pending today EF %: pending today PI's: Completed Carotid: Completed Mapping: Completed Dental: N/A, CABG PFT's: Completed Recent Labs 07/23/18 0835 WBC 8.10 HB 9.3* HCT 31.0* PLT 258 INR 1.0 CREAT 0.94 UA: Normal HCG:N/A ABO/ABO Confirmed: Yes, Positive antibodies Blood ordered: Yes Willing to accept blood: SA Swab: Yes - results: Pending Last Dose of Anticoagulation: Aspirin 81 mg continue Op Note: N/A Pacemaker Check: N/A Implants: no Consults: none DM: No Cardiac Surgical prep: N/A SIGNATURE: Rosalia Prakash APRN.CNP DATE of SERVICE: 07/23/2018 TIME of SERVICE: 2:40 PM CHECKED BY: amber Discharge planning issues 07/23/2018 Overview: 77 y o m here for CABG. Resides in [place]. to [place] for 55 years. Son Harvey is supportive. Await therapy eval. Chronic left-sided low back pain with left-sided sciatica 12/09/2015 08/18/2021 Esophagitis, unspecified 08/29/200709/2010 Unspecified hemorrhoids with out mention of complication 10/20/2010 Overview: Hemorrhoids Diverticulosis of colon (wit hout mention of hemorrhage) 10/20/2010 Overview: Diverticulosis Peptic ulcer, unspecified si te, unspecified as acute or chronic, without mention of hemorrhage, perforation, or obstruction 05/30/2007 documented as of this encounter (statuses as of 08/24/2022) [facility] History of Past illness Narrative* Problem Noted Date Diagnosed Date Resolved Date Cervical radiculopathy 12/08/202102/01 Left arm pain 12/08/2021 02/01/2022 Ileus 12/20/2018 12/24/2018 Acute blood loss anemia 12/20/201812/13 Acute cholecystitis 12/15/2018 12/25/19 19 Transition of care performed with sharing of clinical summary 07/26/2018 09/19/2018 Overview: Indication for Surgery: CAD Preop LVEF: 59% RVF: Normal Postop LVEF: Normal RVF: Normal Cards: [place] EKG: NSR PMH/PSH: Hypothyroid, diverticulitis, GIB, PUD, appendectomy, former smoker, GERD, Barretts, esophageal stricture (9mm on 05/2018 EGD note below) and large hiatal hernia. Airway Difficulty: Grade III view (only epiglottis visible) - No special instrumentation Pacing Wires: Ventricular: Pulled 07/27 Chronological List of Surgeries and Major Events (Diagnosis): (Surgeries in bold characters) 07/24/2018: CABG x 3 (VASQUES to LAD, SVG to RCA, SVG to OM1) OR course: Coagulopathy/bleeding - transfused multiple products in OR CVICU: Hypotension requiring Levo gtt for MAP goal 75-85. A/P: Wires pulled 07/27, MS [place]ara drain has been removed too. s/p CABG - ASA, BB, statin intolerance (D/w patient and was perhaps 20 years ago his primary MD started a statin. He reports maybe dizziness? I suggested perhaps muscle aches but he is not sure. He denies any anaphylaxis or needing to be hospitalized for any med adverse reactions - will start simvastatin 20mg po daily. Patient aware of S/Sx to report and placed on discharge medication sheet.) GERD/Esophageal strictures s/p dilations, did not do a LUCRECIA in the OR, NO LUCRECIA post-op. Dispo - 77yo male from [place], [place]. CM following. F/U with OPD and Cards made. For D/C today. Discharge Planning: Anticipated Discharge Date: 07/29 Barriers to Discharge: No Barriers to Discharge, Other: NA Care Management Discharge Needs: Needs Prior to Discharge: OT/PT Evaluation Obesity, Class I, BMI 30-34.9 07/26/2018 09/19/2018 Overview: History: POA Assessment: Body mass index is 28.62 kg/m . Plan: nutrition consult and lifestyle modification Difficult airway for intubation 07/24/2018 07/29/2018 Overview: Fairly easy mask ventilation. Intubation was difficult with Mac 3 blade. only the epiglottis was visualized, but a blind intubation was successful. Atelectasis 07/24/2018 07/26/2018 Overview: Grade 3 airway A/P: Postop bibasilar. Elevated right hemidiaphragm OOB to chair. BPH. Postoperative hypotension 07/24/2018 Overview: A/P: Arrived on Levo, wean to goal MAP 75-85. Coagulopathy 07/24/2018 07/25/2018 Overview: A/P: Coagulopathy/bleeding intraop, transfused 2plts/2FFP/5PRBC in OR, f/u coags and transfuse as needed. Hypovolemia 07/24/2018 07/25/2018 Overview: A/P: Postop fluid shifts. Volume resuscitate as needed. Pre-op testing 07/23/2018 09/19/2018 Overview: [facility] Surgeon: Thom Soto M.D. Informed Consent Completed: Yes STS Score: CAD: Yes - CAD on Problem List: Yes Is intended procedure a CABG: Yes - is a beta getachew ordered? Yes H & P completed: Yes PA/LAT: Completed CT: Completed Abnormal Follow-up for these incidentally detected lung nodules with a chest CT exam is recommended in 3-6 months. If stable on follow-up imaging, a repeat chest CT exam in 12 months (15-18 months from the initial exam) is recommended MRI: N/A LE US: Completed Cath: Yes - reviewed: Yes EKG: Completed Is patient on Amiodarone? Echo:Pending today EF %: pending today PI's: Completed Carotid: Completed Mapping: Completed Dental: N/A, CABG PFT's: Completed Recent Labs 07/23/18 0835 WBC 8.10 HB 9.3* HCT 31.0* PLT 258 INR 1.0 CREAT 0.94 UA: Normal HCG:N/A ABO/ABO Confirmed: Yes, Positive antibodies Blood ordered: Yes Willing to accept blood: SA Swab: Yes - results: Pending Last Dose of Anticoagulation: Aspirin 81 mg continue Op Note: N/A Pacemaker Check: N/A Implants: no Consults: none DM: No Cardiac Surgical prep: N/A SIGNATURE: Rosalia Prakash APRN.CNP DATE of SERVICE: 07/23/2018 TIME of SERVICE: 2:40 PM CHECKED BY: amber Chronic left-sided low back pain with left-sided sciatica 12/09/2015 08/18/2021 Esophagitis, unspecified 08/29/200709/2010 Unspecified hemorrhoids with out mention of complication 10/20/2010 Overview: Hemorrhoids Diverticulosis of colon (wit hout mention of hemorrhage) 10/20/2010 Overview: Diverticulosis Peptic ulcer, unspecified si te, unspecified as acute or chronic, without mention of hemorrhage, perforation, or obstruction 05/30/2007 documented as of this encounter (statuses as of 08/31/2022) [facility]10-27-2022 History of Past illness Narrative* Problem Noted Date Diagnosed Date Resolved Date Cervical radiculopathy 12/08/202102/01 Left arm pain 12/08/2021 02/01/2022 Ileus 12/20/2018 12/24/2018 Acute blood loss anemia 12/20/201812/13 Acute cholecystitis 12/15/2018 12/25/19 19 Transition of care performed with sharing of clinical summary 07/26/2018 09/19/2018 Overview: Indication for Surgery: CAD Preop LVEF: 59% RVF: Normal Postop LVEF: Normal RVF: Normal Cards: [place] EKG: NSR PMH/PSH: Hypothyroid, diverticulitis, GIB, PUD, appendectomy, former smoker, GERD, Barretts, esophageal stricture (9mm on 05/2018 EGD note below) and large hiatal hernia. Airway Difficulty: Grade III view (only epiglottis visible) - No special instrumentation Pacing Wires: Ventricular: Pulled 07/27 Chronological List of Surgeries and Major Events (Diagnosis): (Surgeries in bold characters) 07/24/2018: CABG x 3 (VASQUES to LAD, SVG to RCA, SVG to OM1) OR course: Coagulopathy/bleeding - transfused multiple products in OR CVICU: Hypotension requiring Levo gtt for MAP goal 75-85. A/P: Wires pulled 07/27, MS mayda drain has been removed too. s/p CABG - ASA, BB, statin intolerance (D/w patient and was perhaps 20 years ago his primary MD started a statin. He reports maybe dizziness? I suggested perhaps muscle aches but he is not sure. He denies any anaphylaxis or needing to be hospitalized for any med adverse reactions - will start simvastatin 20mg po daily. Patient aware of S/Sx to report and placed on discharge medication sheet.) GERD/Esophageal strictures s/p dilations, did not do a LUCRECIA in the OR, NO LUCRECIA post-op. Dispo - 77yo male from [place], [place]. CM following. F/U with OPD and Cards made. For D/C today. Discharge Planning: Anticipated Discharge Date: 07/29 Barriers to Discharge: No Barriers to Discharge, Other: NA Care Management Discharge Needs: Needs Prior to Discharge: OT/PT Evaluation Obesity, Class I, BMI 30-34.9 07/26/2018 09/19/2018 Overview: History: POA Assessment: Body mass index is 28.62 kg/m . Plan: nutrition consult and lifestyle modification Difficult airway for intubation 07/24/2018 07/29/2018 Overview: Fairly easy mask ventilation. Intubation was difficult with Mac 3 blade. only the epiglottis was visualized, but a blind intubation was successful. Atelectasis 07/24/2018 07/26/2018 Overview: Grade 3 airway A/P: Postop bibasilar. Elevated right hemidiaphragm OOB to chair. BPH. Postoperative hypotension 07/24/2018 Overview: A/P: Arrived on Levo, wean to goal MAP 75-85. Coagulopathy 07/24/2018 07/25/2018 Overview: A/P: Coagulopathy/bleeding intraop, transfused 2plts/2FFP/5PRBC in OR, f/u coags and transfuse as needed. Hypovolemia 07/24/2018 07/25/2018 Overview: A/P: Postop fluid shifts. Volume resuscitate as needed. Pre-op testing 07/23/2018 09/19/2018 Overview: [facility] Surgeon: Thom Soto M.D. Informed Consent Completed: Yes STS Score: CAD: Yes - CAD on Problem List: Yes Is intended procedure a CABG: Yes - is a beta getachew ordered? Yes H & P completed: Yes PA/LAT: Completed CT: Completed Abnormal Follow-up for these incidentally detected lung nodules with a chest CT exam is recommended in 3-6 months. If stable on follow-up imaging, a repeat chest CT exam in 12 months (15-18 months from the initial exam) is recommended MRI: N/A LE US: Completed Cath: Yes - reviewed: Yes EKG: Completed Is patient on Amiodarone? Echo:Pending today EF %: pending today PI's: Completed Carotid: Completed Mapping: Completed Dental: N/A, CABG PFT's: Completed Recent Labs 07/23/18 0835 WBC 8.10 HB 9.3* HCT 31.0* PLT 258 INR 1.0 CREAT 0.94 UA: Normal HCG:N/A ABO/ABO Confirmed: Yes, Positive antibodies Blood ordered: Yes Willing to accept blood: SA Swab: Yes - results: Pending Last Dose of Anticoagulation: Aspirin 81 mg continue Op Note: N/A Pacemaker Check: N/A Implants: no Consults: none DM: No Cardiac Surgical prep: N/A SIGNATURE: Rosalia Prakash APRN.CNP DATE of SERVICE: 07/23/2018 TIME of SERVICE: 2:40 PM CHECKED BY: amber Chronic left-sided low back pain with left-sided sciatica 12/09/2015 08/18/2021 Esophagitis, unspecified 08/29/200709/2010 Unspecified hemorrhoids with out mention of complication 10/20/2010 Overview: Hemorrhoids Diverticulosis of colon (wit hout mention of hemorrhage) 10/20/2010 Overview: Diverticulosis Peptic ulcer, unspecified si te, unspecified as acute or chronic, without mention of hemorrhage, perforation, or obstruction 05/30/2007 documented as of this encounter (statuses as of 09/25/2022) [facility]10-27-2022 History of Past illness Narrative* Problem Noted Date Diagnosed Date Resolved Date Cervical radiculopathy 12/08/202102/01 Left arm pain 12/08/2021 02/01/2022 Ileus 12/20/2018 12/24/2018 Acute blood loss anemia 12/20/201812/13 Acute cholecystitis 12/15/2018 12/25/19 19 Transition of care performed with sharing of clinical summary 07/26/2018 09/19/2018 Overview: Indication for Surgery: CAD Preop LVEF: 59% RVF: Normal Postop LVEF: Normal RVF: Normal Cards: [place] EKG: NSR PMH/PSH: Hypothyroid, diverticulitis, GIB, PUD, appendectomy, former smoker, GERD, Barretts, esophageal stricture (9mm on 05/2018 EGD note below) and large hiatal hernia. Airway Difficulty: Grade III view (only epiglottis visible) - No special instrumentation Pacing Wires: Ventricular: Pulled 07/27 Chronological List of Surgeries and Major Events (Diagnosis): (Surgeries in bold characters) 07/24/2018: CABG x 3 (VASQUES to LAD, SVG to RCA, SVG to OM1) OR course: Coagulopathy/bleeding - transfused multiple products in OR CVICU: Hypotension requiring Levo gtt for MAP goal 75-85. A/P: Wires pulled 07/27, MS ohara drain has been removed too. s/p CABG - ASA, BB, statin intolerance (D/w patient and was perhaps 20 years ago his primary MD started a statin. He reports maybe dizziness? I suggested perhaps muscle aches but he is not sure. He denies any anaphylaxis or needing to be hospitalized for any med adverse reactions - will start simvastatin 20mg po daily. Patient aware of S/Sx to report and placed on discharge medication sheet.) GERD/Esophageal strictures s/p dilations, did not do a LUCRECIA in the OR, NO LUCRECIA post-op. Dispo - 77yo male from [place], [place]. CM following. F/U with OPD and Cards made. For D/C today. Discharge Planning: Anticipated Discharge Date: 07/29 Barriers to Discharge: No Barriers to Discharge, Other: NA Care Management Discharge Needs: Needs Prior to Discharge: OT/PT Evaluation Obesity, Class I, BMI 30-34.9 07/26/2018 09/19/2018 Overview: History: POA Assessment: Body mass index is 28.62 kg/m . Plan: nutrition consult and lifestyle modification Difficult airway for intubation 07/24/2018 07/29/2018 Overview: Fairly easy mask ventilation. Intubation was difficult with Mac 3 blade. only the epiglottis was visualized, but a blind intubation was successful. Atelectasis 07/24/2018 07/26/2018 Overview: Grade 3 airway A/P: Postop bibasilar. Elevated right hemidiaphragm OOB to chair. BPH. Postoperative hypotension 07/24/2018 Overview: A/P: Arrived on Levo, wean to goal MAP 75-85. Coagulopathy 07/24/2018 07/25/2018 Overview: A/P: Coagulopathy/bleeding intraop, transfused 2plts/2FFP/5PRBC in OR, f/u coags and transfuse as needed. Hypovolemia 07/24/2018 07/25/2018 Overview: A/P: Postop fluid shifts. Volume resuscitate as needed. Pre-op testing 07/23/2018 09/19/2018 Overview: [facility] Surgeon: Thom Soto M.D. Informed Consent Completed: Yes STS Score: CAD: Yes - CAD on Problem List: Yes Is intended procedure a CABG: Yes - is a beta getachew ordered? Yes H & P completed: Yes PA/LAT: Completed CT: Completed Abnormal Follow-up for these incidentally detected lung nodules with a chest CT exam is recommended in 3-6 months. If stable on follow-up imaging, a repeat chest CT exam in 12 months (15-18 months from the initial exam) is recommended MRI: N/A LE US: Completed Cath: Yes - reviewed: Yes EKG: Completed Is patient on Amiodarone? Echo:Pending today EF %: pending today PI's: Completed Carotid: Completed Mapping: Completed Dental: N/A, CABG PFT's: Completed Recent Labs 07/23/18 0835 WBC 8.10 HB 9.3* HCT 31.0* PLT 258 INR 1.0 CREAT 0.94 UA: Normal HCG:N/A ABO/ABO Confirmed: Yes, Positive antibodies Blood ordered: Yes Willing to accept blood: SA Swab: Yes - results: Pending Last Dose of Anticoagulation: Aspirin 81 mg continue Op Note: N/A Pacemaker Check: N/A Implants: no Consults: none DM: No Cardiac Surgical prep: N/A SIGNATURE: Rosalia Prakash APRN.CNP DATE of SERVICE: 07/23/2018 TIME of SERVICE: 2:40 PM CHECKED BY: amber Chronic left-sided low back pain with left-sided sciatica 12/09/2015 08/18/2021 Esophagitis, unspecified 08/29/200709/2010 Unspecified hemorrhoids with out mention of complication 10/20/2010 Overview: Hemorrhoids Diverticulosis of colon (wit cornelio mention of hemorrhage) 10/20/2010 Overview: Diverticulosis Peptic ulcer, unspecified si te, unspecified as acute or chronic, without mention of hemorrhage, perforation, or obstruction 05/30/2007 documented as of this encounter (statuses as of 10/03/2022) [facility]10[facility] History of Past illness Narrative* Problem Noted Date Diagnosed Date Resolved Date Cervical radiculopathy 12/08/202102/01 Left arm pain 12/08/2021 02/01/2022 Ileus 12/20/2018 12/24/2018 Acute blood loss anemia 12/20/201812/13 Acute cholecystitis 12/15/2018 12/25/19 19 Transition of care performed with sharing of clinical summary 07/26/2018 09/19/2018 Overview: Indication for Surgery: CAD Preop LVEF: 59% RVF: Normal Postop LVEF: Normal RVF: Normal Cards: [place] EKG: NSR PMH/PSH: Hypothyroid, diverticulitis, GIB, PUD, appendectomy, former smoker, GERD, Barretts, esophageal stricture (9mm on 05/2018 EGD note below) and large hiatal hernia. Airway Difficulty: Grade III view (only epiglottis visible) - No special instrumentation Pacing Wires: Ventricular: Pulled 07/27 Chronological List of Surgeries and Major Events (Diagnosis): (Surgeries in bold characters) 07/24/2018: CABG x 3 (VASQUES to LAD, SVG to RCA, SVG to OM1) OR course: Coagulopathy/bleeding - transfused multiple products in OR CVICU: Hypotension requiring Levo gtt for MAP goal 75-85. A/P: Wires pulled 07/27, MS ohara drain has been removed too. s/p CABG - ASA, BB, statin intolerance (D/w patient and was perhaps 20 years ago his primary MD started a statin. He reports maybe dizziness? I suggested perhaps muscle aches but he is not sure. He denies any anaphylaxis or needing to be hospitalized for any med adverse reactions - will start simvastatin 20mg po daily. Patient aware of S/Sx to report and placed on discharge medication sheet.) GERD/Esophageal strictures s/p dilations, did not do a LUCRECIA in the OR, NO LUCRECIA post-op. Dispo - 77yo male from [place], [place]. CM following. F/U with OPD and Cards made. For D/C today. Discharge Planning: Anticipated Discharge Date: 07/29 Barriers to Discharge: No Barriers to Discharge, Other: NA Care Management Discharge Needs: Needs Prior to Discharge: OT/PT Evaluation Obesity, Class I, BMI 30-34.9 07/26/2018 09/19/2018 Overview: History: POA Assessment: Body mass index is 28.62 kg/m . Plan: nutrition consult and lifestyle modification Difficult airway for intubation 07/24/2018 07/29/2018 Overview: Fairly easy mask ventilation. Intubation was difficult with Mac 3 blade. only the epiglottis was visualized, but a blind intubation was successful. Atelectasis 07/24/2018 07/26/2018 Overview: Grade 3 airway A/P: Postop bibasilar. Elevated right hemidiaphragm OOB to chair. BPH. Postoperative hypotension 07/24/2018 Overview: A/P: Arrived on Levo, wean to goal MAP 75-85. Coagulopathy 07/24/2018 07/25/2018 Overview: A/P: Coagulopathy/bleeding intraop, transfused 2plts/2FFP/5PRBC in OR, f/u coags and transfuse as needed. Hypovolemia 07/24/2018 07/25/2018 Overview: A/P: Postop fluid shifts. Volume resuscitate as needed. Pre-op testing 07/23/2018 09/19/2018 Overview: [facility] Surgeon: Thom Soto M.D. Informed Consent Completed: Yes STS Score: CAD: Yes - CAD on Problem List: Yes Is intended procedure a CABG: Yes - is a beta getachew ordered? Yes H & P completed: Yes PA/LAT: Completed CT: Completed Abnormal Follow-up for these incidentally detected lung nodules with a chest CT exam is recommended in 3-6 months. If stable on follow-up imaging, a repeat chest CT exam in 12 months (15-18 months from the initial exam) is recommended MRI: N/A LE US: Completed Cath: Yes - reviewed: Yes EKG: Completed Is patient on Amiodarone? Echo:Pending today EF %: pending today PI's: Completed Carotid: Completed Mapping: Completed Dental: N/A, CABG PFT's: Completed Recent Labs 07/23/18 0835 WBC 8.10 HB 9.3* HCT 31.0* PLT 258 INR 1.0 CREAT 0.94 UA: Normal HCG:N/A ABO/ABO Confirmed: Yes, Positive antibodies Blood ordered: Yes Willing to accept blood: SA Swab: Yes - results: Pending Last Dose of Anticoagulation: Aspirin 81 mg continue Op Note: N/A Pacemaker Check: N/A Implants: no Consults: none DM: No Cardiac Surgical prep: N/A SIGNATURE: Rosalia Prakash APRN.CNP DATE of SERVICE: 07/23/2018 TIME of SERVICE: 2:40 PM CHECKED BY: amber Chronic left-sided low back pain with left-sided sciatica 12/09/2015 08/18/2021 Esophagitis, unspecified 08/29/200709/2010 Unspecified hemorrhoids with out mention of complication 10/20/2010 Overview: Hemorrhoids Diverticulosis of colon (wit hout mention of hemorrhage) 10/20/2010 Overview: Diverticulosis Peptic ulcer, unspecified si te, unspecified as acute or chronic, without mention of hemorrhage, perforation, or obstruction 05/30/2007 documented as of this encounter (statuses as of 10/11/2022) [facility] History of Past illness Narrative* Problem Noted Date Diagnosed Date Resolved Date Cervical radiculopathy 12/08/202102/01 Left arm pain 12/08/2021 02/01/2022 Ileus 12/20/2018 12/24/2018 Acute blood loss anemia 12/20/201812/13 Acute cholecystitis 12/15/2018 12/25/19 19 Transition of care performed with sharing of clinical summary 07/26/2018 09/19/2018 Overview: Indication for Surgery: CAD Preop LVEF: 59% RVF: Normal Postop LVEF: Normal RVF: Normal Cards: [place] EKG: NSR PMH/PSH: Hypothyroid, diverticulitis, GIB, PUD, appendectomy, former smoker, GERD, Barretts, esophageal stricture (9mm on 05/2018 EGD note below) and large hiatal hernia. Airway Difficulty: Grade III view (only epiglottis visible) - No special instrumentation Pacing Wires: Ventricular: Pulled 07/27 Chronological List of Surgeries and Major Events (Diagnosis): (Surgeries in bold characters) 07/24/2018: CABG x 3 (VASQUES to LAD, SVG to RCA, SVG to OM1) OR course: Coagulopathy/bleeding - transfused multiple products in OR CVICU: Hypotension requiring Levo gtt for MAP goal 75-85. A/P: Wires pulled 07/27, MS ohara drain has been removed too. s/p CABG - ASA, BB, statin intolerance (D/w patient and was perhaps 20 years ago his primary MD started a statin. He reports maybe dizziness? I suggested perhaps muscle aches but he is not sure. He denies any anaphylaxis or needing to be hospitalized for any med adverse reactions - will start simvastatin 20mg po daily. Patient aware of S/Sx to report and placed on discharge medication sheet.) GERD/Esophageal strictures s/p dilations, did not do a LUCRECIA in the OR, NO LUCRECIA post-op. Dispo - 77yo male from [place], [place]. CM following. F/U with OPD and Cards made. For D/C today. Discharge Planning: Anticipated Discharge Date: 07/29 Barriers to Discharge: No Barriers to Discharge, Other: NA Care Management Discharge Needs: Needs Prior to Discharge: OT/PT Evaluation Obesity, Class I, BMI 30-34.9 07/26/2018 09/19/2018 Overview: History: POA Assessment: Body mass index is 28.62 kg/m . Plan: nutrition consult and lifestyle modification Difficult airway for intubation 07/24/2018 07/29/2018 Overview: Fairly easy mask ventilation. Intubation was difficult with Mac 3 blade. only the epiglottis was visualized, but a blind intubation was successful. Atelectasis 07/24/2018 07/26/2018 Overview: Grade 3 airway A/P: Postop bibasilar. Elevated right hemidiaphragm OOB to chair. BPH. Postoperative hypotension 07/24/2018 Overview: A/P: Arrived on Levo, wean to goal MAP 75-85. Coagulopathy 07/24/2018 07/25/2018 Overview: A/P: Coagulopathy/bleeding intraop, transfused 2plts/2FFP/5PRBC in OR, f/u coags and transfuse as needed. Hypovolemia 07/24/2018 07/25/2018 Overview: A/P: Postop fluid shifts. Volume resuscitate as needed. Pre-op testing 07/23/2018 09/19/2018 Overview: [facility] Surgeon: Thom Soto M.D. Informed Consent Completed: Yes STS Score: CAD: Yes - CAD on Problem List: Yes Is intended procedure a CABG: Yes - is a beta getachew ordered? Yes H & P completed: Yes PA/LAT: Completed CT: Completed Abnormal Follow-up for these incidentally detected lung nodules with a chest CT exam is recommended in 3-6 months. If stable on follow-up imaging, a repeat chest CT exam in 12 months (15-18 months from the initial exam) is recommended MRI: N/A LE US: Completed Cath: Yes - reviewed: Yes EKG: Completed Is patient on Amiodarone? Echo:Pending today EF %: pending today PI's: Completed Carotid: Completed Mapping: Completed Dental: N/A, CABG PFT's: Completed Recent Labs 07/23/18 0835 WBC 8.10 HB 9.3* HCT 31.0* PLT 258 INR 1.0 CREAT 0.94 UA: Normal HCG:N/A ABO/ABO Confirmed: Yes, Positive antibodies Blood ordered: Yes Willing to accept blood: SA Swab: Yes - results: Pending Last Dose of Anticoagulation: Aspirin 81 mg continue Op Note: N/A Pacemaker Check: N/A Implants: no Consults: none DM: No Cardiac Surgical prep: N/A SIGNATURE: Rosalia Prakash APRN.CNP DATE of SERVICE: 07/23/2018 TIME of SERVICE: 2:40 PM CHECKED BY: amber Chronic left-sided low back pain with left-sided sciatica 12/09/2015 08/18/2021 Esophagitis, unspecified 08/29/200709/2010 Unspecified hemorrhoids with out mention of complication 10/20/2010 Overview: Hemorrhoids Diverticulosis of colon (wit hout mention of hemorrhage) 10/20/2010 Overview: Diverticulosis Peptic ulcer, unspecified si te, unspecified as acute or chronic, without mention of hemorrhage, perforation, or obstruction 05/30/2007 documented as of this encounter (statuses as of 11/11/2022) [facility] History of Past illness Narrative* Problem Noted Date Diagnosed Date Resolved Date Cervical radiculopathy 12/08/202102/01 Left arm pain 12/08/2021 02/01/2022 Ileus 12/20/2018 12/24/2018 Acute blood loss anemia 12/20/201812/13 Acute cholecystitis 12/15/2018 12/25/19 19 Transition of care performed with sharing of clinical summary 07/26/2018 09/19/2018 Overview: Indication for Surgery: CAD Preop LVEF: 59% RVF: Normal Postop LVEF: Normal RVF: Normal Cards: [place] EKG: NSR PMH/PSH: Hypothyroid, diverticulitis, GIB, PUD, appendectomy, former smoker, GERD, Barretts, esophageal stricture (9mm on 05/2018 EGD note below) and large hiatal hernia. Airway Difficulty: Grade III view (only epiglottis visible) - No special instrumentation Pacing Wires: Ventricular: Pulled 07/27 Chronological List of Surgeries and Major Events (Diagnosis): (Surgeries in bold characters) 07/24/2018: CABG x 3 (VASQUES to LAD, SVG to RCA, SVG to OM1) OR course: Coagulopathy/bleeding - transfused multiple products in OR CVICU: Hypotension requiring Levo gtt for MAP goal 75-85. A/P: Wires pulled 07/27, MS mayda drain has been removed too. s/p CABG - ASA, BB, statin intolerance (D/w patient and was perhaps 20 years ago his primary MD started a statin. He reports maybe dizziness? I suggested perhaps muscle aches but he is not sure. He denies any anaphylaxis or needing to be hospitalized for any med adverse reactions - will start simvastatin 20mg po daily. Patient aware of S/Sx to report and placed on discharge medication sheet.) GERD/Esophageal strictures s/p dilations, did not do a LUCRECIA in the OR, NO LUCRECIA post-op. Dispo - 77yo male from [place], [place]. CM following. F/U with OPD and Cards made. For D/C today. Discharge Planning: Anticipated Discharge Date: 6/17 Barriers to Discharge: No Barriers to Discharge, Other: NA Care Management Discharge Needs: Needs Prior to Discharge: OT/PT Evaluation Obesity, Class I, BMI 30-34.9 07/26/2018 09/19/2018 Overview: History: POA Assessment: Body mass index is 28.62 kg/m . Plan: nutrition consult and lifestyle modification Difficult airway for intubation 07/24/2018 07/29/2018 Overview: Fairly easy mask ventilation. Intubation was difficult with Mac 3 blade. only the epiglottis was visualized, but a blind intubation was successful. Atelectasis 07/24/2018 07/26/2018 Overview: Grade 3 airway A/P: Postop bibasilar. Elevated right hemidiaphragm OOB to chair. BPH. Postoperative hypotension 07/24/2018 Overview: A/P: Arrived on Levo, wean to goal MAP 75-85. Coagulopathy 07/24/2018 07/25/2018 Overview: A/P: Coagulopathy/bleeding intraop, transfused 2plts/2FFP/5PRBC in OR, f/u coags and transfuse as needed. Hypovolemia 07/24/2018 07/25/2018 Overview: A/P: Postop fluid shifts. Volume resuscitate as needed. Pre-op testing 07/23/2018 09/19/2018 Overview: [facility] Surgeon: Thom Soto M.D. Informed Consent Completed: Yes STS Score: CAD: Yes - CAD on Problem List: Yes Is intended procedure a CABG: Yes - is a beta getachew ordered? Yes H & P completed: Yes PA/LAT: Completed CT: Completed Abnormal Follow-up for these incidentally detected lung nodules with a chest CT exam is recommended in 3-6 months. If stable on follow-up imaging, a repeat chest CT exam in 12 months (15-18 months from the initial exam) is recommended MRI: N/A LE US: Completed Cath: Yes - reviewed: Yes EKG: Completed Is patient on Amiodarone? Echo:Pending today EF %: pending today PI's: Completed Carotid: Completed Mapping: Completed Dental: N/A, CABG PFT's: Completed Recent Labs 07/23/18 0835 WBC 8.10 HB 9.3* HCT 31.0* PLT 258 INR 1.0 CREAT 0.94 UA: Normal HCG:N/A ABO/ABO Confirmed: Yes, Positive antibodies Blood ordered: Yes Willing to accept blood: SA Swab: Yes - results: Pending Last Dose of Anticoagulation: Aspirin 81 mg continue Op Note: N/A Pacemaker Check: N/A Implants: no Consults: none DM: No Cardiac Surgical prep: N/A SIGNATURE: Rosalia Prakash APRN.CNP DATE of SERVICE: 07/23/2018 TIME of SERVICE: 2:40 PM CHECKED BY: amber Chronic left-sided low back pain with left-sided sciatica 12/09/2015 08/18/2021 Esophagitis, unspecified 08/29/200709/2010 Unspecified hemorrhoids with out mention of complication 10/20/2010 Overview: Hemorrhoids Diverticulosis of colon (wit hojoesph mention of hemorrhage) 10/20/2010 Overview: Diverticulosis Peptic ulcer, unspecified si te, unspecified as acute or chronic, without mention of hemorrhage, perforation, or obstruction 05/30/2007 documented as of this encounter (statuses as of 12/17/2022) [facility]10-27-2022 History of Past illness Narrative* Problem Noted Date Diagnosed Date Resolved Date Cervical radiculopathy 12/08/202102/01 Left arm pain 12/08/2021 02/01/2022 Ileus 12/20/2018 12/24/2018 Acute blood loss anemia 12/20/201812/13 Acute cholecystitis 12/15/2018 12/25/19 19 Transition of care performed with sharing of clinical summary 07/26/2018 09/19/2018 Overview: Indication for Surgery: CAD Preop LVEF: 59% RVF: Normal Postop LVEF: Normal RVF: Normal Cards: [facility] EKG: NSR PMH/PSH: Hypothyroid, diverticulitis, GIB, PUD, appendectomy, former smoker, GERD, Barretts, esophageal stricture (9mm on 05/2018 EGD note below) and large hiatal hernia. Airway Difficulty: Grade III view (only epiglottis visible) - No special instrumentation Pacing Wires: Ventricular: Pulled 07/27 Chronological List of Surgeries and Major Events (Diagnosis): (Surgeries in bold characters) 07/24/2018: CABG x 3 (VASQUES to LAD, SVG to RCA, SVG to OM1) OR course: Coagulopathy/bleeding - transfused multiple products in OR CVICU: Hypotension requiring Levo gtt for MAP goal 75-85. A/P: Wires pulled 07/27, MS ohara drain has been removed too. s/p CABG - ASA, BB, statin intolerance (D/w patient and was perhaps 20 years ago his primary MD started a statin. He reports maybe dizziness? I suggested perhaps muscle aches but he is not sure. He denies any anaphylaxis or needing to be hospitalized for any med adverse reactions - will start simvastatin 20mg po daily. Patient aware of S/Sx to report and placed on discharge medication sheet.) GERD/Esophageal strictures s/p dilations, did not do a LUCRECIA in the OR, NO LUCRECIA post-op. Dispo - 77yo male from [place], [place]. CM following. F/U with OPD and Cards made. For D/C today. Discharge Planning: Anticipated Discharge Date: 07/29 Barriers to Discharge: No Barriers to Discharge, Other: NA Care Management Discharge Needs: Needs Prior to Discharge: OT/PT Evaluation Obesity, Class I, BMI 30-34.9 07/26/2018 09/19/2018 Overview: History: POA Assessment: Body mass index is 28.62 kg/m . Plan: nutrition consult and lifestyle modification Difficult airway for intubation 07/24/2018 07/29/2018 Overview: Fairly easy mask ventilation. Intubation was difficult with Mac 3 blade. only the epiglottis was visualized, but a blind intubation was successful. Atelectasis 07/24/2018 07/26/2018 Overview: Grade 3 airway A/P: Postop bibasilar. Elevated right hemidiaphragm OOB to chair. BPH. Postoperative hypotension 07/24/2018 Overview: A/P: Arrived on Levo, wean to goal MAP 75-85. Coagulopathy 07/24/2018 07/25/2018 Overview: A/P: Coagulopathy/bleeding intraop, transfused 2plts/2FFP/5PRBC in OR, f/u coags and transfuse as needed. Hypovolemia 07/24/2018 07/25/2018 Overview: A/P: Postop fluid shifts. Volume resuscitate as needed. Pre-op testing 07/23/2018 09/19/2018 Overview[facility] Surgeon: Thom Soto M.D. Informed Consent Completed: Yes STS Score: CAD: Yes - CAD on Problem List: Yes Is intended procedure a CABG: Yes - is a beta getachew ordered? Yes H & P completed: Yes PA/LAT: Completed CT: Completed Abnormal Follow-up for these incidentally detected lung nodules with a chest CT exam is recommended in 3-6 months. If stable on follow-up imaging, a repeat chest CT exam in 12 months (15-18 months from the initial exam) is recommended MRI: N/A LE US: Completed Cath: Yes - reviewed: Yes EKG: Completed Is patient on Amiodarone? Echo:Pending today EF %: pending today PI's: Completed Carotid: Completed Mapping: Completed Dental: N/A, CABG PFT's: Completed Recent Labs 07/23/18 0835 WBC 8.10 HB 9.3* HCT 31.0* PLT 258 INR 1.0 CREAT 0.94 UA: Normal HCG:N/A ABO/ABO Confirmed: Yes, Positive antibodies Blood ordered: Yes Willing to accept blood: SA Swab: Yes - results: Pending Last Dose of Anticoagulation: Aspirin 81 mg continue Op Note: N/A Pacemaker Check: N/A Implants: no Consults: none DM: No Cardiac Surgical prep: N/A SIGNATURE: Rosalia Prakash APRN.CNP DATE of SERVICE: 07/23/2018 TIME of SERVICE: 2:40 PM CHECKED BY: amber Chronic left-sided low back pain with left-sided sciatica 12/09/2015 08/18/2021 Esophagitis, unspecified 08/29/200709/2010 Unspecified hemorrhoids with out mention of complication 10/20/2010 Overview: Hemorrhoids Diverticulosis of colon (wit hout mention of hemorrhage) 10/20/2010 Overview: Diverticulosis Peptic ulcer, unspecified si te, unspecified as acute or chronic, without mention of hemorrhage, perforation, or obstruction 05/30/2007 documented as of this encounter (statuses as of 12/17/2022) [facility]10-27-2022 History of Past illness Narrative* Problem Noted Date Diagnosed Date Resolved Date Cervical radiculopathy 12/08/202102/01 Left arm pain 12/08/2021 02/01/2022 Ileus 12/20/2018 12/24/2018 Acute blood loss anemia 12/20/201812/13 Acute cholecystitis 12/15/2018 12/25/19 19 Transition of care performed with sharing of clinical summary 07/26/2018 09/19/2018 Overview: Indication for Surgery: CAD Preop LVEF: 59% RVF: Normal Postop LVEF: Normal RVF: Normal Cards: [place] EKG: NSR PMH/PSH: Hypothyroid, diverticulitis, GIB, PUD, appendectomy, former smoker, GERD, Barretts, esophageal stricture (9mm on 05/2018 EGD note below) and large hiatal hernia. Airway Difficulty: Grade III view (only epiglottis visible) - No special instrumentation Pacing Wires: Ventricular: Pulled 07/27 Chronological List of Surgeries and Major Events (Diagnosis): (Surgeries in bold characters) 07/24/2018: CABG x 3 (VASQUES to LAD, SVG to RCA, SVG to OM1) OR course: Coagulopathy/bleeding - transfused multiple products in OR CVICU: Hypotension requiring Levo gtt for MAP goal 75-85. A/P: Wires pulled 07/27, MS mayda drain has been removed too. s/p CABG - ASA, BB, statin intolerance (D/w patient and was perhaps 20 years ago his primary MD started a statin. He reports maybe dizziness? I suggested perhaps muscle aches but he is not sure. He denies any anaphylaxis or needing to be hospitalized for any med adverse reactions - will start simvastatin 20mg po daily. Patient aware of S/Sx to report and placed on discharge medication sheet.) GERD/Esophageal strictures s/p dilations, did not do a LUCRECIA in the OR, NO LUCRECIA post-op. Dispo - 77yo male from [place], [place]. CM following. F/U with OPD and Cards made. For D/C today. Discharge Planning: Anticipated Discharge Date: 07/29 Barriers to Discharge: No Barriers to Discharge, Other: NA Care Management Discharge Needs: Needs Prior to Discharge: OT/PT Evaluation Obesity, Class I, BMI 30-34.9 07/26/2018 09/19/2018 Overview: History: POA Assessment: Body mass index is 28.62 kg/m . Plan: nutrition consult and lifestyle modification Difficult airway for intubation 07/24/2018 07/29/2018 Overview: Fairly easy mask ventilation. Intubation was difficult with Mac 3 blade. only the epiglottis was visualized, but a blind intubation was successful. Atelectasis 07/24/2018 07/26/2018 Overview: Grade 3 airway A/P: Postop bibasilar. Elevated right hemidiaphragm OOB to chair. BPH. Postoperative hypotension 07/24/2018 Overview: A/P: Arrived on Levo, wean to goal MAP 75-85. Coagulopathy 07/24/2018 07/25/2018 Overview: A/P: Coagulopathy/bleeding intraop, transfused 2plts/2FFP/5PRBC in OR, f/u coags and transfuse as needed. Hypovolemia 07/24/2018 07/25/2018 Overview: A/P: Postop fluid shifts. Volume resuscitate as needed. Pre-op testing 07/23/2018 09/19/2018 Overview: [facility] PRE[facility] Surgeon: Thom Soto M.D. Informed Consent Completed: Yes STS Score: CAD: Yes - CAD on Problem List: Yes Is intended procedure a CABG: Yes - is a beta getachew ordered? Yes H & P completed: Yes PA/LAT: Completed CT: Completed Abnormal Follow-up for these incidentally detected lung nodules with a chest CT exam is recommended in 3-6 months. If stable on follow-up imaging, a repeat chest CT exam in 12 months (15-18 months from the initial exam) is recommended MRI: N/A LE US: Completed Cath: Yes - reviewed: Yes EKG: Completed Is patient on Amiodarone? Echo:Pending today EF %: pending today PI's: Completed Carotid: Completed Mapping: Completed Dental: N/A, CABG PFT's: Completed Recent Labs 07/23/18 0835 WBC 8.10 HB 9.3* HCT 31.0* PLT 258 INR 1.0 CREAT 0.94 UA: Normal HCG:N/A ABO/ABO Confirmed: Yes, Positive antibodies Blood ordered: Yes Willing to accept blood: SA Swab: Yes - results: Pending Last Dose of Anticoagulation: Aspirin 81 mg continue Op Note: N/A Pacemaker Check: N/A Implants: no Consults: none DM: No Cardiac Surgical prep: N/A SIGNATURE: Rosalia Prakash APRN.CNP DATE of SERVICE: 07/23/2018 TIME of SERVICE: 2:40 PM CHECKED BY: amber Chronic left-sided low back pain with left-sided sciatica 12/09/2015 08/18/2021 Esophagitis, unspecified 08/29/200709/2010 Unspecified hemorrhoids with out mention of complication 10/20/2010 Overview: Hemorrhoids Diverticulosis of colon (wit hojoesph mention of hemorrhage) 10/20/2010 Overview: Diverticulosis Peptic ulcer, unspecified si te, unspecified as acute or chronic, without mention of hemorrhage, perforation, or obstruction 05/30/2007 documented as of this encounter (statuses as of 01/23/2023) [facility]10-27-2022 History of Past illness Narrative* Problem Noted Date Diagnosed Date Resolved Date Cervical radiculopathy 12/08/202102/01 Left arm pain 12/08/2021 02/01/2022 Ileus 12/20/2018 12/24/2018 Acute blood loss anemia 12/20/201812/13 Acute cholecystitis 12/15/2018 12/25/19 19 Transition of care performed with sharing of clinical summary 07/26/2018 09/19/2018 Overview: Indication for Surgery: CAD Preop LVEF: 59% RVF: Normal Postop LVEF: Normal RVF: Normal Cards: [facility] EKG: NSR PMH/PSH: Hypothyroid, diverticulitis, GIB, PUD, appendectomy, former smoker, GERD, Barretts, esophageal stricture (9mm on 05/2018 EGD note below) and large hiatal hernia. Airway Difficulty: Grade III view (only epiglottis visible) - No special instrumentation Pacing Wires: Ventricular: Pulled 07/27 Chronological List of Surgeries and Major Events (Diagnosis): (Surgeries in bold characters) 07/24/2018: CABG x 3 (VASQUES to LAD, SVG to RCA, SVG to OM1) OR course: Coagulopathy/bleeding - transfused multiple products in OR CVICU: Hypotension requiring Levo gtt for MAP goal 75-85. A/P: Wires pulled 07/27, MS ohara drain has been removed too. s/p CABG - ASA, BB, statin intolerance (D/w patient and was perhaps 20 years ago his primary MD started a statin. He reports maybe dizziness? I suggested perhaps muscle aches but he is not sure. He denies any anaphylaxis or needing to be hospitalized for any med adverse reactions - will start simvastatin 20mg po daily. Patient aware of S/Sx to report and placed on discharge medication sheet.) GERD/Esophageal strictures s/p dilations, did not do a LUCRECIA in the OR, NO LUCRECIA post-op. Dispo - 77yo male from [place], [place]. CM following. F/U with OPD and Cards made. For D/C today. Discharge Planning: Anticipated Discharge Date: 07/29 Barriers to Discharge: No Barriers to Discharge, Other: NA Care Management Discharge Needs: Needs Prior to Discharge: OT/PT Evaluation Obesity, Class I, BMI 30-34.9 07/26/2018 09/19/2018 Overview: History: POA Assessment: Body mass index is 28.62 kg/m . Plan: nutrition consult and lifestyle modification Difficult airway for intubation 07/24/2018 07/29/2018 Overview: Fairly easy mask ventilation. Intubation was difficult with Mac 3 blade. only the epiglottis was visualized, but a blind intubation was successful. Atelectasis 07/24/2018 07/26/2018 Overview: Grade 3 airway A/P: Postop bibasilar. Elevated right hemidiaphragm OOB to chair. BPH. Postoperative hypotension 07/24/2018 Overview: A/P: Arrived on Levo, wean to goal MAP 75-85. Coagulopathy 07/24/2018 07/25/2018 Overview: A/P: Coagulopathy/bleeding intraop, transfused 2plts/2FFP/5PRBC in OR, f/u coags and transfuse as needed. Hypovolemia 07/24/2018 07/25/2018 Overview: A/P: Postop fluid shifts. Volume resuscitate as needed. Pre-op testing 07/23/2018 09/19/2018 Overview: [facility] Surgeon: Thom Soto M.D. Informed Consent Completed: Yes STS Score: CAD: Yes - CAD on Problem List: Yes Is intended procedure a CABG: Yes - is a beta getacehw ordered? Yes H & P completed: Yes PA/LAT: Completed CT: Completed Abnormal Follow-up for these incidentally detected lung nodules with a chest CT exam is recommended in 3-6 months. If stable on follow-up imaging, a repeat chest CT exam in 12 months (15-18 months from the initial exam) is recommended MRI: N/A LE US: Completed Cath: Yes - reviewed: Yes EKG: Completed Is patient on Amiodarone? Echo:Pending today EF %: pending today PI's: Completed Carotid: Completed Mapping: Completed Dental: N/A, CABG PFT's: Completed Recent Labs 07/23/18 0835 WBC 8.10 HB 9.3* HCT 31.0* PLT 258 INR 1.0 CREAT 0.94 UA: Normal HCG:N/A ABO/ABO Confirmed: Yes, Positive antibodies Blood ordered: Yes Willing to accept blood: SA Swab: Yes - results: Pending Last Dose of Anticoagulation: Aspirin 81 mg continue Op Note: N/A Pacemaker Check: N/A Implants: no Consults: none DM: No Cardiac Surgical prep: N/A SIGNATURE: Rosalia Prakash APRN.CNP DATE of SERVICE: 07/23/2018 TIME of SERVICE: 2:40 PM CHECKED BY: amber Chronic left-sided low back pain with left-sided sciatica 12/09/2015 08/18/2021 Esophagitis, unspecified 08/29/200709/2010 Unspecified hemorrhoids with out mention of complication 10/20/2010 Overview: Hemorrhoids Diverticulosis of colon (wit hout mention of hemorrhage) 10/20/2010 Overview: Diverticulosis Peptic ulcer, unspecified si te, unspecified as acute or chronic, without mention of hemorrhage, perforation, or obstruction 05/30/2007 documented as of this encounter (statuses as of 01/26/2023) [facility]10-27-2022 History of Past illness Narrative* Problem Noted Date Diagnosed Date Resolved Date Cervical radiculopathy 12/08/202102/01 Left arm pain 12/08/2021 02/01/2022 Ileus 12/20/2018 12/24/2018 Acute blood loss anemia 12/20/201812/13 Acute cholecystitis 12/15/2018 12/25/19 19 Transition of care performed with sharing of clinical summary 07/26/2018 09/19/2018 Overview: Indication for Surgery: CAD Preop LVEF: 59% RVF: Normal Postop LVEF: Normal RVF: Normal Cards: [facility] EKG: NSR PMH/PSH: Hypothyroid, diverticulitis, GIB, PUD, appendectomy, former smoker, GERD, Barretts, esophageal stricture (9mm on 05/2018 EGD note below) and large hiatal hernia. Airway Difficulty: Grade III view (only epiglottis visible) - No special instrumentation Pacing Wires: Ventricular: Pulled 07/27 Chronological List of Surgeries and Major Events (Diagnosis): (Surgeries in bold characters) 07/24/2018: CABG x 3 (VASQUES to LAD, SVG to RCA, SVG to OM1) OR course: Coagulopathy/bleeding - transfused multiple products in OR CVICU: Hypotension requiring Levo gtt for MAP goal 75-85. A/P: Wires pulled 07/27, MS ohara drain has been removed too. s/p CABG - ASA, BB, statin intolerance (D/w patient and was perhaps 20 years ago his primary MD started a statin. He reports maybe dizziness? I suggested perhaps muscle aches but he is not sure. He denies any anaphylaxis or needing to be hospitalized for any med adverse reactions - will start simvastatin 20mg po daily. Patient aware of S/Sx to report and placed on discharge medication sheet.) GERD/Esophageal strictures s/p dilations, did not do a LUCRECIA in the OR, NO LUCRECIA post-op. Dispo - 77yo male from [place], [place]. CM following. F/U with OPD and Cards made. For D/C today. Discharge Planning: Anticipated Discharge Date: 07/29 Barriers to Discharge: No Barriers to Discharge, Other: NA Care Management Discharge Needs: Needs Prior to Discharge: OT/PT Evaluation Obesity, Class I, BMI 30-34.9 07/26/2018 09/19/2018 Overview: History: POA Assessment: Body mass index is 28.62 kg/m . Plan: nutrition consult and lifestyle modification Difficult airway for intubation 07/24/2018 07/29/2018 Overview: Fairly easy mask ventilation. Intubation was difficult with Mac 3 blade. only the epiglottis was visualized, but a blind intubation was successful. Atelectasis 07/24/2018 07/26/2018 Overview: Grade 3 airway A/P: Postop bibasilar. Elevated right hemidiaphragm OOB to chair. BPH. Postoperative hypotension 07/24/2018 Overview: A/P: Arrived on Levo, wean to goal MAP 75-85. Coagulopathy 07/24/2018 07/25/2018 Overview: A/P: Coagulopathy/bleeding intraop, transfused 2plts/2FFP/5PRBC in OR, f/u coags and transfuse as needed. Hypovolemia 07/24/2018 07/25/2018 Overview: A/P: Postop fluid shifts. Volume resuscitate as needed. Pre-op testing 07/23/2018 09/19/2018 Overview: [facility] PRE[facility] Surgeon: Thom Soto M.D. Informed Consent Completed: Yes STS Score: CAD: Yes - CAD on Problem List: Yes Is intended procedure a CABG: Yes - is a beta getachew ordered? Yes H & P completed: Yes PA/LAT: Completed CT: Completed Abnormal Follow-up for these incidentally detected lung nodules with a chest CT exam is recommended in 3-6 months. If stable on follow-up imaging, a repeat chest CT exam in 12 months (15-18 months from the initial exam) is recommended MRI: N/A LE US: Completed Cath: Yes - reviewed: Yes EKG: Completed Is patient on Amiodarone? Echo:Pending today EF %: pending today PI's: Completed Carotid: Completed Mapping: Completed Dental: N/A, CABG PFT's: Completed Recent Labs 07/23/18 0835 WBC 8.10 HB 9.3* HCT 31.0* PLT 258 INR 1.0 CREAT 0.94 UA: Normal HCG:N/A ABO/ABO Confirmed: Yes, Positive antibodies Blood ordered: Yes Willing to accept blood: SA Swab: Yes - results: Pending Last Dose of Anticoagulation: Aspirin 81 mg continue Op Note: N/A Pacemaker Check: N/A Implants: no Consults: none DM: No Cardiac Surgical prep: N/A SIGNATURE: Rosalia Prakash APRN.CNP DATE of SERVICE: 07/23/2018 TIME of SERVICE: 2:40 PM CHECKED BY: amber Chronic left-sided low back pain with left-sided sciatica 12/09/2015 08/18/2021 Esophagitis, unspecified 08/29/200709/2010 Unspecified hemorrhoids with out mention of complication 10/20/2010 Overview: Hemorrhoids Diverticulosis of colon (wit hout mention of hemorrhage) 10/20/2010 Overview: Diverticulosis Peptic ulcer, unspecified si te, unspecified as acute or chronic, without mention of hemorrhage, perforation, or obstruction 05/30/2007 documented as of this encounter (statuses as of 03/17/2023) [facility] History of Past illness Narrative* Problem Noted Date Diagnosed Date Resolved Date Cervical radiculopathy 12/08/202102/01 Left arm pain 12/08/2021 02/01/2022 Ileus 12/20/2018 12/24/2018 Acute blood loss anemia 12/20/201812/13 Acute cholecystitis 12/15/2018 12/25/19 19 Transition of care performed with sharing of clinical summary 07/26/2018 09/19/2018 Overview: Indication for Surgery: CAD Preop LVEF: 59% RVF: Normal Postop LVEF: Normal RVF: Normal Cards: [facility] EKG: NSR PMH/PSH: Hypothyroid, diverticulitis, GIB, PUD, appendectomy, former smoker, GERD, Barretts, esophageal stricture (9mm on 05/2018 EGD note below) and large hiatal hernia. Airway Difficulty: Grade III view (only epiglottis visible) - No special instrumentation Pacing Wires: Ventricular: Pulled 07/27 Chronological List of Surgeries and Major Events (Diagnosis): (Surgeries in bold characters) 07/24/2018: CABG x 3 (VASQUES to LAD, SVG to RCA, SVG to OM1) OR course: Coagulopathy/bleeding - transfused multiple products in OR CVICU: Hypotension requiring Levo gtt for MAP goal 75-85. A/P: Wires pulled 07/27, MS mayda drain has been removed too. s/p CABG - ASA, BB, statin intolerance (D/w patient and was perhaps 20 years ago his primary MD started a statin. He reports maybe dizziness? I suggested perhaps muscle aches but he is not sure. He denies any anaphylaxis or needing to be hospitalized for any med adverse reactions - will start simvastatin 20mg po daily. Patient aware of S/Sx to report and placed on discharge medication sheet.) GERD/Esophageal strictures s/p dilations, did not do a LUCRECIA in the OR, NO LUCRECIA post-op. Dispo - 77yo male from [place], [place]. CM following. F/U with OPD and Cards made. For D/C today. Discharge Planning: Anticipated Discharge Date: 07/29 Barriers to Discharge: No Barriers to Discharge, Other: NA Care Management Discharge Needs: Needs Prior to Discharge: OT/PT Evaluation Obesity, Class I, BMI 30-34.9 07/26/2018 09/19/2018 Overview: History: POA Assessment: Body mass index is 28.62 kg/m . Plan: nutrition consult and lifestyle modification Difficult airway for intubation 07/24/2018 07/29/2018 Overview: Fairly easy mask ventilation. Intubation was difficult with Mac 3 blade. only the epiglottis was visualized, but a blind intubation was successful. Atelectasis 07/24/2018 07/26/2018 Overview: Grade 3 airway A/P: Postop bibasilar. Elevated right hemidiaphragm OOB to chair. BPH. Postoperative hypotension 07/24/2018 Overview: A/P: Arrived on Levo, wean to goal MAP 75-85. Coagulopathy 07/24/2018 07/25/2018 Overview: A/P: Coagulopathy/bleeding intraop, transfused 2plts/2FFP/5PRBC in OR, f/u coags and transfuse as needed. Hypovolemia 07/24/2018 07/25/2018 Overview: A/P: Postop fluid shifts. Volume resuscitate as needed. Pre-op testing 07/23/2018 09/19/2018 Overview: [facility] PRE[facility] Surgeon: Thom Soto M.D. Informed Consent Completed: Yes STS Score: CAD: Yes - CAD on Problem List: Yes Is intended procedure a CABG: Yes - is a beta getachew ordered? Yes H & P completed: Yes PA/LAT: Completed CT: Completed Abnormal Follow-up for these incidentally detected lung nodules with a chest CT exam is recommended in 3-6 months. If stable on follow-up imaging, a repeat chest CT exam in 12 months (15-18 months from the initial exam) is recommended MRI: N/A LE US: Completed Cath: Yes - reviewed: Yes EKG: Completed Is patient on Amiodarone? Echo:Pending today EF %: pending today PI's: Completed Carotid: Completed Mapping: Completed Dental: N/A, CABG PFT's: Completed Recent Labs 07/23/18 0835 WBC 8.10 HB 9.3* HCT 31.0* PLT 258 INR 1.0 CREAT 0.94 UA: Normal HCG:N/A ABO/ABO Confirmed: Yes, Positive antibodies Blood ordered: Yes Willing to accept blood: SA Swab: Yes - results: Pending Last Dose of Anticoagulation: Aspirin 81 mg continue Op Note: N/A Pacemaker Check: N/A Implants: no Consults: none DM: No Cardiac Surgical prep: N/A SIGNATURE: Rosalia Prakash APRN.CNP DATE of SERVICE: 07/23/2018 TIME of SERVICE: 2:40 PM CHECKED BY: amber Chronic left-sided low back pain with left-sided sciatica 12/09/2015 08/18/2021 Esophagitis, unspecified 08/29/200709/2010 Unspecified hemorrhoids with out mention of complication 10/20/2010 Overview: Hemorrhoids Diverticulosis of colon (wit hout mention of hemorrhage) 10/20/2010 Overview: Diverticulosis Peptic ulcer, unspecified si te, unspecified as acute or chronic, without mention of hemorrhage, perforation, or obstruction 05/30/2007 documented as of this encounter (statuses as of 04/03/2023) [facility] History of Past illness Narrative* Problem Noted Date Diagnosed Date Resolved Date Cervical radiculopathy 12/08/202102/01 Left arm pain 12/08/2021 02/01/2022 Ileus 12/20/2018 12/24/2018 Acute blood loss anemia 12/20/201812/13 Acute cholecystitis 12/15/2018 12/25/19 19 Transition of care performed with sharing of clinical summary 07/26/2018 09/19/2018 Overview: Indication for Surgery: CAD Preop LVEF: 59% RVF: Normal Postop LVEF: Normal RVF: Normal Cards: [facility] EKG: NSR PMH/PSH: Hypothyroid, diverticulitis, GIB, PUD, appendectomy, former smoker, GERD, Barretts, esophageal stricture (9mm on 05/2018 EGD note below) and large hiatal hernia. Airway Difficulty: Grade III view (only epiglottis visible) - No special instrumentation Pacing Wires: Ventricular: Pulled 07/27 Chronological List of Surgeries and Major Events (Diagnosis): (Surgeries in bold characters) 07/24/2018: CABG x 3 (VASQUES to LAD, SVG to RCA, SVG to OM1) OR course: Coagulopathy/bleeding - transfused multiple products in OR CVICU: Hypotension requiring Levo gtt for MAP goal 75-85. A/P: Wires pulled 07/27, MS mayda drain has been removed too. s/p CABG - ASA, BB, statin intolerance (D/w patient and was perhaps 20 years ago his primary MD started a statin. He reports maybe dizziness? I suggested perhaps muscle aches but he is not sure. He denies any anaphylaxis or needing to be hospitalized for any med adverse reactions - will start simvastatin 20mg po daily. Patient aware of S/Sx to report and placed on discharge medication sheet.) GERD/Esophageal strictures s/p dilations, did not do a LUCRECIA in the OR, NO LUCRECIA post-op. Dispo - 77yo male from [place], [place]. CM following. F/U with OPD and Cards made. For D/C today. Discharge Planning: Anticipated Discharge Date: 07/29 Barriers to Discharge: No Barriers to Discharge, Other: NA Care Management Discharge Needs: Needs Prior to Discharge: OT/PT Evaluation Obesity, Class I, BMI 30-34.9 07/26/2018 09/19/2018 Overview: History: POA Assessment: Body mass index is 28.62 kg/m . Plan: nutrition consult and lifestyle modification Difficult airway for intubation 07/24/2018 07/29/2018 Overview: Fairly easy mask ventilation. Intubation was difficult with Mac 3 blade. only the epiglottis was visualized, but a blind intubation was successful. Atelectasis 07/24/2018 07/26/2018 Overview: Grade 3 airway A/P: Postop bibasilar. Elevated right hemidiaphragm OOB to chair. BPH. Postoperative hypotension 07/24/2018 Overview: A/P: Arrived on Levo, wean to goal MAP 75-85. Coagulopathy 07/24/2018 07/25/2018 Overview: A/P: Coagulopathy/bleeding intraop, transfused 2plts/2FFP/5PRBC in OR, f/u coags and transfuse as needed. Hypovolemia 07/24/2018 07/25/2018 Overview: A/P: Postop fluid shifts. Volume resuscitate as needed. Pre-op testing 07/23/2018 09/19/2018 Overview[facility] Surgeon: Thom Soto M.D. Informed Consent Completed: Yes STS Score: CAD: Yes - CAD on Problem List: Yes Is intended procedure a CABG: Yes - is a beta getachew ordered? Yes H & P completed: Yes PA/LAT: Completed CT: Completed Abnormal Follow-up for these incidentally detected lung nodules with a chest CT exam is recommended in 3-6 months. If stable on follow-up imaging, a repeat chest CT exam in 12 months (15-18 months from the initial exam) is recommended MRI: N/A LE US: Completed Cath: Yes - reviewed: Yes EKG: Completed Is patient on Amiodarone? Echo:Pending today EF %: pending today PI's: Completed Carotid: Completed Mapping: Completed Dental: N/A, CABG PFT's: Completed Recent Labs 07/23/18 0835 WBC 8.10 HB 9.3* HCT 31.0* PLT 258 INR 1.0 CREAT 0.94 UA: Normal HCG:N/A ABO/ABO Confirmed: Yes, Positive antibodies Blood ordered: Yes Willing to accept blood: SA Swab: Yes - results: Pending Last Dose of Anticoagulation: Aspirin 81 mg continue Op Note: N/A Pacemaker Check: N/A Implants: no Consults: none DM: No Cardiac Surgical prep: N/A SIGNATURE: Rosalia Prakash APRN.CNP DATE of SERVICE: 07/23/2018 TIME of SERVICE: 2:40 PM CHECKED BY: amber Chronic left-sided low back pain with left-sided sciatica 12/09/2015 08/18/2021 Esophagitis, unspecified 08/29/200709/2010 Unspecified hemorrhoids with out mention of complication 10/20/2010 Overview: Hemorrhoids Diverticulosis of colon (wit hout mention of hemorrhage) 10/20/2010 Overview: Diverticulosis Peptic ulcer, unspecified si te, unspecified as acute or chronic, without mention of hemorrhage, perforation, or obstruction 05/30/2007 documented as of this encounter (statuses as of 04/12/2023) [facility]10-27-2022 History of Past illness Narrative* Problem Noted Date Diagnosed Date Resolved Date Cervical radiculopathy 12/08/202102/01 Left arm pain 12/08/2021 02/01/2022 Ileus 12/20/2018 12/24/2018 Acute blood loss anemia 12/20/201812/13 Acute cholecystitis 12/15/2018 12/25/19 19 Transition of care performed with sharing of clinical summary 07/26/2018 09/19/2018 Overview: Indication for Surgery: CAD Preop LVEF: 59% RVF: Normal Postop LVEF: Normal RVF: Normal Cards: [facility] EKG: NSR PMH/PSH: Hypothyroid, diverticulitis, GIB, PUD, appendectomy, former smoker, GERD, Barretts, esophageal stricture (9mm on 05/2018 EGD note below) and large hiatal hernia. Airway Difficulty: Grade III view (only epiglottis visible) - No special instrumentation Pacing Wires: Ventricular: Pulled 07/27 Chronological List of Surgeries and Major Events (Diagnosis): (Surgeries in bold characters) 07/24/2018: CABG x 3 (VASQUES to LAD, SVG to RCA, SVG to OM1) OR course: Coagulopathy/bleeding - transfused multiple products in OR CVICU: Hypotension requiring Levo gtt for MAP goal 75-85. A/P: Wires pulled 07/27, MS ohara drain has been removed too. s/p CABG - ASA, BB, statin intolerance (D/w patient and was perhaps 20 years ago his primary MD started a statin. He reports maybe dizziness? I suggested perhaps muscle aches but he is not sure. He denies any anaphylaxis or needing to be hospitalized for any med adverse reactions - will start simvastatin 20mg po daily. Patient aware of S/Sx to report and placed on discharge medication sheet.) GERD/Esophageal strictures s/p dilations, did not do a LUCRECIA in the OR, NO LUCRECIA post-op. Dispo - 77yo male from [place], [place]. CM following. F/U with OPD and Cards made. For D/C today. Discharge Planning: Anticipated Discharge Date: 07/29 Barriers to Discharge: No Barriers to Discharge, Other: NA Care Management Discharge Needs: Needs Prior to Discharge: OT/PT Evaluation Obesity, Class I, BMI 30-34.9 07/26/2018 09/19/2018 Overview: History: POA Assessment: Body mass index is 28.62 kg/m . Plan: nutrition consult and lifestyle modification Difficult airway for intubation 07/24/2018 07/29/2018 Overview: Fairly easy mask ventilation. Intubation was difficult with Mac 3 blade. only the epiglottis was visualized, but a blind intubation was successful. Atelectasis 07/24/2018 07/26/2018 Overview: Grade 3 airway A/P: Postop bibasilar. Elevated right hemidiaphragm OOB to chair. BPH. Postoperative hypotension 07/24/2018 Overview: A/P: Arrived on Levo, wean to goal MAP 75-85. Coagulopathy 07/24/2018 07/25/2018 Overview: A/P: Coagulopathy/bleeding intraop, transfused 2plts/2FFP/5PRBC in OR, f/u coags and transfuse as needed. Hypovolemia 07/24/2018 07/25/2018 Overview: A/P: Postop fluid shifts. Volume resuscitate as needed. Pre-op testing 07/23/2018 09/19/2018 Overview: [facility] Surgeon: Thom Soto M.D. Informed Consent Completed: Yes STS Score: CAD: Yes - CAD on Problem List: Yes Is intended procedure a CABG: Yes - is a beta getachew ordered? Yes H & P completed: Yes PA/LAT: Completed CT: Completed Abnormal Follow-up for these incidentally detected lung nodules with a chest CT exam is recommended in 3-6 months. If stable on follow-up imaging, a repeat chest CT exam in 12 months (15-18 months from the initial exam) is recommended MRI: N/A LE US: Completed Cath: Yes - reviewed: Yes EKG: Completed Is patient on Amiodarone? Echo:Pending today EF %: pending today PI's: Completed Carotid: Completed Mapping: Completed Dental: N/A, CABG PFT's: Completed Recent Labs 07/23/18 0835 WBC 8.10 HB 9.3* HCT 31.0* PLT 258 INR 1.0 CREAT 0.94 UA: Normal HCG:N/A ABO/ABO Confirmed: Yes, Positive antibodies Blood ordered: Yes Willing to accept blood: SA Swab: Yes - results: Pending Last Dose of Anticoagulation: Aspirin 81 mg continue Op Note: N/A Pacemaker Check: N/A Implants: no Consults: none DM: No Cardiac Surgical prep: N/A SIGNATURE: Rosalia Prakash APRN.CNP DATE of SERVICE: 07/23/2018 TIME of SERVICE: 2:40 PM CHECKED BY: amber Chronic left-sided low back pain with left-sided sciatica 12/09/2015 08/18/2021 Esophagitis, unspecified 08/29/200709/2010 Unspecified hemorrhoids with out mention of complication 10/20/2010 Overview: Hemorrhoids Diverticulosis of colon (wit hout mention of hemorrhage) 10/20/2010 Overview: Diverticulosis Peptic ulcer, unspecified si te, unspecified as acute or chronic, without mention of hemorrhage, perforation, or obstruction 05/30/2007 documented as of this encounter (statuses as of 04/23/2023) [facility]10-[facility] History of Past illness Narrative* Problem Noted Date Diagnosed Date Resolved Date Cervical radiculopathy 12/08/202102/01 Left arm pain 12/08/2021 02/01/2022 Ileus 12/20/2018 12/24/2018 Acute blood loss anemia 12/20/201812/13 Acute cholecystitis 12/15/2018 12/25/19 19 Transition of care performed with sharing of clinical summary 07/26/2018 09/19/2018 Overview: Indication for Surgery: CAD Preop LVEF: 59% RVF: Normal Postop LVEF: Normal RVF: Normal Cards: [facility] EKG: NSR PMH/PSH: Hypothyroid, diverticulitis, GIB, PUD, appendectomy, former smoker, GERD, Barretts, esophageal stricture (9mm on 05/2018 EGD note below) and large hiatal hernia. Airway Difficulty: Grade III view (only epiglottis visible) - No special instrumentation Pacing Wires: Ventricular: Pulled 07/27 Chronological List of Surgeries and Major Events (Diagnosis): (Surgeries in bold characters) 07/24/2018: CABG x 3 (VASQUES to LAD, SVG to RCA, SVG to OM1) OR course: Coagulopathy/bleeding - transfused multiple products in OR CVICU: Hypotension requiring Levo gtt for MAP goal 75-85. A/P: Wires pulled 07/27, MS ohara drain has been removed too. s/p CABG - ASA, BB, statin intolerance (D/w patient and was perhaps 20 years ago his primary MD started a statin. He reports maybe dizziness? I suggested perhaps muscle aches but he is not sure. He denies any anaphylaxis or needing to be hospitalized for any med adverse reactions - will start simvastatin 20mg po daily. Patient aware of S/Sx to report and placed on discharge medication sheet.) GERD/Esophageal strictures s/p dilations, did not do a LUCRECIA in the OR, NO LUCRECIA post-op. Dispo - 77yo male from [place], [place]. CM following. F/U with OPD and Cards made. For D/C today. Discharge Planning: Anticipated Discharge Date: 07/29 Barriers to Discharge: No Barriers to Discharge, Other: NA Care Management Discharge Needs: Needs Prior to Discharge: OT/PT Evaluation Obesity, Class I, BMI 30-34.9 07/26/2018 09/19/2018 Overview: History: POA Assessment: Body mass index is 28.62 kg/m . Plan: nutrition consult and lifestyle modification Difficult airway for intubation 07/24/2018 07/29/2018 Overview: Fairly easy mask ventilation. Intubation was difficult with Mac 3 blade. only the epiglottis was visualized, but a blind intubation was successful. Atelectasis 07/24/2018 07/26/2018 Overview: Grade 3 airway A/P: Postop bibasilar. Elevated right hemidiaphragm OOB to chair. BPH. Postoperative hypotension 07/24/2018 Overview: A/P: Arrived on Levo, wean to goal MAP 75-85. Coagulopathy 07/24/2018 07/25/2018 Overview: A/P: Coagulopathy/bleeding intraop, transfused 2plts/2FFP/5PRBC in OR, f/u coags and transfuse as needed. Hypovolemia 07/24/2018 07/25/2018 Overview: A/P: Postop fluid shifts. Volume resuscitate as needed. Pre-op testing 07/23/2018 09/19/2018 Overview: [facility] Surgeon: Thom Soto M.D. Informed Consent Completed: Yes STS Score: CAD: Yes - CAD on Problem List: Yes Is intended procedure a CABG: Yes - is a beta getachew ordered? Yes H & P completed: Yes PA/LAT: Completed CT: Completed Abnormal Follow-up for these incidentally detected lung nodules with a chest CT exam is recommended in 3-6 months. If stable on follow-up imaging, a repeat chest CT exam in 12 months (15-18 months from the initial exam) is recommended MRI: N/A LE US: Completed Cath: Yes - reviewed: Yes EKG: Completed Is patient on Amiodarone? Echo:Pending today EF %: pending today PI's: Completed Carotid: Completed Mapping: Completed Dental: N/A, CABG PFT's: Completed Recent Labs 07/23/18 0835 WBC 8.10 HB 9.3* HCT 31.0* PLT 258 INR 1.0 CREAT 0.94 UA: Normal HCG:N/A ABO/ABO Confirmed: Yes, Positive antibodies Blood ordered: Yes Willing to accept blood: SA Swab: Yes - results: Pending Last Dose of Anticoagulation: Aspirin 81 mg continue Op Note: N/A Pacemaker Check: N/A Implants: no Consults: none DM: No Cardiac Surgical prep: N/A SIGNATURE: Rosalia Prakash APRN.CNP DATE of SERVICE: 07/23/2018 TIME of SERVICE: 2:40 PM CHECKED BY: amber Chronic left-sided low back pain with left-sided sciatica 12/09/2015 08/18/2021 Esophagitis, unspecified 08/29/200709/2010 Unspecified hemorrhoids with out mention of complication 10/20/2010 Overview: Hemorrhoids Diverticulosis of colon (selina grimes mention of hemorrhage) 10/20/2010 Overview: Diverticulosis Peptic ulcer, unspecified si te, unspecified as acute or chronic, without mention of hemorrhage, perforation, or obstruction 05/30/2007 documented as of this encounter (statuses as of 04/23/2023) [facility] History of Past illness Narrative* Problem Noted Date Diagnosed Date Resolved Date Cervical radiculopathy 12/08/202102/01 Left arm pain 12/08/2021 02/01/2022 Ileus 12/20/2018 12/24/2018 Acute blood loss anemia 12/20/201812/13 Acute cholecystitis 12/15/2018 12/25/19 19 Transition of care performed with sharing of clinical summary 07/26/2018 09/19/2018 Overview: Indication for Surgery: CAD Preop LVEF: 59% RVF: Normal Postop LVEF: Normal RVF: Normal Cards: [facility] EKG: NSR PMH/PSH: Hypothyroid, diverticulitis, GIB, PUD, appendectomy, former smoker, GERD, Barretts, esophageal stricture (9mm on 05/2018 EGD note below) and large hiatal hernia. Airway Difficulty: Grade III view (only epiglottis visible) - No special instrumentation Pacing Wires: Ventricular: Pulled 07/27 Chronological List of Surgeries and Major Events (Diagnosis): (Surgeries in bold characters) 07/24/2018: CABG x 3 (VASQUES to LAD, SVG to RCA, SVG to OM1) OR course: Coagulopathy/bleeding - transfused multiple products in OR CVICU: Hypotension requiring Levo gtt for MAP goal 75-85. A/P: Wires pulled 07/27, MS mayda drain has been removed too. s/p CABG - ASA, BB, statin intolerance (D/w patient and was perhaps 20 years ago his primary MD started a statin. He reports maybe dizziness? I suggested perhaps muscle aches but he is not sure. He denies any anaphylaxis or needing to be hospitalized for any med adverse reactions - will start simvastatin 20mg po daily. Patient aware of S/Sx to report and placed on discharge medication sheet.) GERD/Esophageal strictures s/p dilations, did not do a LUCRECIA in the OR, NO LUCRECIA post-op. Dispo - 77yo male from [place], [place]. CM following. F/U with OPD and Cards made. For D/C today. Discharge Planning: Anticipated Discharge Date: 07/29 Barriers to Discharge: No Barriers to Discharge, Other: NA Care Management Discharge Needs: Needs Prior to Discharge: OT/PT Evaluation Obesity, Class I, BMI 30-34.9 07/26/2018 09/19/2018 Overview: History: POA Assessment: Body mass index is 28.62 kg/m . Plan: nutrition consult and lifestyle modification Difficult airway for intubation 07/24/2018 07/29/2018 Overview: Fairly easy mask ventilation. Intubation was difficult with Mac 3 blade. only the epiglottis was visualized, but a blind intubation was successful. Atelectasis 07/24/2018 07/26/2018 Overview: Grade 3 airway A/P: Postop bibasilar. Elevated right hemidiaphragm OOB to chair. BPH. Postoperative hypotension 07/24/2018 Overview: A/P: Arrived on Levo, wean to goal MAP 75-85. Coagulopathy 07/24/2018 07/25/2018 Overview: A/P: Coagulopathy/bleeding intraop, transfused 2plts/2FFP/5PRBC in OR, f/u coags and transfuse as needed. Hypovolemia 07/24/2018 07/25/2018 Overview: A/P: Postop fluid shifts. Volume resuscitate as needed. Pre-op testing 07/23/2018 09/19/2018 Overview: [facility] Surgeon: Thom Soto M.D. Informed Consent Completed: Yes STS Score: CAD: Yes - CAD on Problem List: Yes Is intended procedure a CABG: Yes - is a beta getachew ordered? Yes H & P completed: Yes PA/LAT: Completed CT: Completed Abnormal Follow-up for these incidentally detected lung nodules with a chest CT exam is recommended in 3-6 months. If stable on follow-up imaging, a repeat chest CT exam in 12 months (15-18 months from the initial exam) is recommended MRI: N/A LE US: Completed Cath: Yes - reviewed: Yes EKG: Completed Is patient on Amiodarone? Echo:Pending today EF %: pending today PI's: Completed Carotid: Completed Mapping: Completed Dental: N/A, CABG PFT's: Completed Recent Labs 07/23/18 0835 WBC 8.10 HB 9.3* HCT 31.0* PLT 258 INR 1.0 CREAT 0.94 UA: Normal HCG:N/A ABO/ABO Confirmed: Yes, Positive antibodies Blood ordered: Yes Willing to accept blood: SA Swab: Yes - results: Pending Last Dose of Anticoagulation: Aspirin 81 mg continue Op Note: N/A Pacemaker Check: N/A Implants: no Consults: none DM: No Cardiac Surgical prep: N/A SIGNATURE: Rosalia Prakash APRN.CNP DATE of SERVICE: 07/23/2018 TIME of SERVICE: 2:40 PM CHECKED BY: amber Chronic left-sided low back pain with left-sided sciatica 12/09/2015 08/18/2021 Esophagitis, unspecified 08/29/200709/2010 Unspecified hemorrhoids with out mention of complication 10/20/2010 Overview: Hemorrhoids Diverticulosis of colon (wit hout mention of hemorrhage) 10/20/2010 Overview: Diverticulosis Peptic ulcer, unspecified si te, unspecified as acute or chronic, without mention of hemorrhage, perforation, or obstruction 05/30/2007 documented as of this encounter (statuses as of 04/26/2023) [facility] History of Past illness Narrative* Problem Noted Date Diagnosed Date Resolved Date Cervical radiculopathy 12/08/202102/01 Left arm pain 12/08/2021 02/01/2022 Ileus 12/20/2018 12/24/2018 Acute blood loss anemia 12/20/201812/13 Acute cholecystitis 12/15/2018 12/25/19 19 Transition of care performed with sharing of clinical summary 07/26/2018 09/19/2018 Overview: Indication for Surgery: CAD Preop LVEF: 59% RVF: Normal Postop LVEF: Normal RVF: Normal Cards: [facility] EKG: NSR PMH/PSH: Hypothyroid, diverticulitis, GIB, PUD, appendectomy, former smoker, GERD, Barretts, esophageal stricture (9mm on 05/2018 EGD note below) and large hiatal hernia. Airway Difficulty: Grade III view (only epiglottis visible) - No special instrumentation Pacing Wires: Ventricular: Pulled 07/27 Chronological List of Surgeries and Major Events (Diagnosis): (Surgeries in bold characters) 07/24/2018: CABG x 3 (VASQUES to LAD, SVG to RCA, SVG to OM1) OR course: Coagulopathy/bleeding - transfused multiple products in OR CVICU: Hypotension requiring Levo gtt for MAP goal 75-85. A/P: Wires pulled 07/27, MS ohara drain has been removed too. s/p CABG - ASA, BB, statin intolerance (D/w patient and was perhaps 20 years ago his primary MD started a statin. He reports maybe dizziness? I suggested perhaps muscle aches but he is not sure. He denies any anaphylaxis or needing to be hospitalized for any med adverse reactions - will start simvastatin 20mg po daily. Patient aware of S/Sx to report and placed on discharge medication sheet.) GERD/Esophageal strictures s/p dilations, did not do a LUCRECIA in the OR, NO LUCRECIA post-op. Dispo - 77yo male from [place], [place]. CM following. F/U with OPD and Cards made. For D/C today. Discharge Planning: Anticipated Discharge Date: 07/29 Barriers to Discharge: No Barriers to Discharge, Other: NA Care Management Discharge Needs: Needs Prior to Discharge: OT/PT Evaluation Obesity, Class I, BMI 30-34.9 07/26/2018 09/19/2018 Overview: History: POA Assessment: Body mass index is 28.62 kg/m . Plan: nutrition consult and lifestyle modification Difficult airway for intubation 07/24/2018 07/29/2018 Overview: Fairly easy mask ventilation. Intubation was difficult with Mac 3 blade. only the epiglottis was visualized, but a blind intubation was successful. Atelectasis 07/24/2018 07/26/2018 Overview: Grade 3 airway A/P: Postop bibasilar. Elevated right hemidiaphragm OOB to chair. BPH. Postoperative hypotension 07/24/2018 Overview: A/P: Arrived on Levo, wean to goal MAP 75-85. Coagulopathy 07/24/2018 07/25/2018 Overview: A/P: Coagulopathy/bleeding intraop, transfused 2plts/2FFP/5PRBC in OR, f/u coags and transfuse as needed. Hypovolemia 07/24/2018 07/25/2018 Overview: A/P: Postop fluid shifts. Volume resuscitate as needed. Pre-op testing 07/23/2018 09/19/2018 Overview: [facility] Surgeon: Thom Soto M.D. Informed Consent Completed: Yes STS Score: CAD: Yes - CAD on Problem List: Yes Is intended procedure a CABG: Yes - is a beta getachew ordered? Yes H & P completed: Yes PA/LAT: Completed CT: Completed Abnormal Follow-up for these incidentally detected lung nodules with a chest CT exam is recommended in 3-6 months. If stable on follow-up imaging, a repeat chest CT exam in 12 months (15-18 months from the initial exam) is recommended MRI: N/A LE US: Completed Cath: Yes - reviewed: Yes EKG: Completed Is patient on Amiodarone? Echo:Pending today EF %: pending today PI's: Completed Carotid: Completed Mapping: Completed Dental: N/A, CABG PFT's: Completed Recent Labs 07/23/18 0835 WBC 8.10 HB 9.3* HCT 31.0* PLT 258 INR 1.0 CREAT 0.94 UA: Normal HCG:N/A ABO/ABO Confirmed: Yes, Positive antibodies Blood ordered: Yes Willing to accept blood: SA Swab: Yes - results: Pending Last Dose of Anticoagulation: Aspirin 81 mg continue Op Note: N/A Pacemaker Check: N/A Implants: no Consults: none DM: No Cardiac Surgical prep: N/A SIGNATURE: Rosalia Prakash APRN.CNP DATE of SERVICE: 07/23/2018 TIME of SERVICE: 2:40 PM CHECKED BY: amber Chronic left-sided low back pain with left-sided sciatica 12/09/2015 08/18/2021 Esophagitis, unspecified 08/29/200709/2010 Unspecified hemorrhoids with out mention of complication 10/20/2010 Overview: Hemorrhoids Diverticulosis of colon (wit hout mention of hemorrhage) 10/20/2010 Overview: Diverticulosis Peptic ulcer, unspecified si te, unspecified as acute or chronic, without mention of hemorrhage, perforation, or obstruction 05/30/2007 documented as of this encounter (statuses as of 05/01/2023) [facility] History of Past illness Narrative* Problem Noted Date Diagnosed Date Resolved Date Cervical radiculopathy 12/08/202102/01 Left arm pain 12/08/2021 02/01/2022 Ileus 12/20/2018 12/24/2018 Acute blood loss anemia 12/20/201812/13 Acute cholecystitis 12/15/2018 12/25/19 Transition of care performed with sharing of clinical summary 07/26/2018 09/19/2018 Overview: Indication for Surgery: CAD Preop LVEF: 59% RVF: Normal Postop LVEF: Normal RVF: Normal Cards: [facility] EKG: NSR PMH/PSH: Hypothyroid, diverticulitis, GIB, PUD, appendectomy, former smoker, GERD, Barretts, esophageal stricture (9mm on 05/2018 EGD note below) and large hiatal hernia. Airway Difficulty: Grade III view (only epiglottis visible) - No special instrumentation Pacing Wires: Ventricular: Pulled 07/27 Chronological List of Surgeries and Major Events (Diagnosis): (Surgeries in bold characters) 07/24/2018: CABG x 3 (VASQUES to LAD, SVG to RCA, SVG to OM1) OR course: Coagulopathy/bleeding - transfused multiple products in OR CVICU: Hypotension requiring Levo gtt for MAP goal 75-85. A/P: Wires pulled 07/27, MS mayda drain has been removed too. s/p CABG - ASA, BB, statin intolerance (D/w patient and was perhaps 20 years ago his primary MD started a statin. He reports maybe dizziness? I suggested perhaps muscle aches but he is not sure. He denies any anaphylaxis or needing to be hospitalized for any med adverse reactions - will start simvastatin 20mg po daily. Patient aware of S/Sx to report and placed on discharge medication sheet.) GERD/Esophageal strictures s/p dilations, did not do a LUCRECIA in the OR, NO LUCRECIA post-op. Dispo - 77yo male from [place], [place]. CM following. F/U with OPD and Cards made. For D/C today. Discharge Planning: Anticipated Discharge Date: 07/29 Barriers to Discharge: No Barriers to Discharge, Other: NA Care Management Discharge Needs: Needs Prior to Discharge: OT/PT Evaluation Obesity, Class I, BMI 30-34.9 07/26/2018 09/19/2018 Overview: History: POA Assessment: Body mass index is 28.62 kg/m . Plan: nutrition consult and lifestyle modification Difficult airway for intubation 07/24/2018 07/29/2018 Overview: Fairly easy mask ventilation. Intubation was difficult with Mac 3 blade. only the epiglottis was visualized, but a blind intubation was successful. Atelectasis 07/24/2018 07/26/2018 Overview: Grade 3 airway A/P: Postop bibasilar. Elevated right hemidiaphragm OOB to chair. BPH. Postoperative hypotension 07/24/2018 Overview: A/P: Arrived on Levo, wean to goal MAP 75-85. Coagulopathy 07/24/2018 07/25/2018 Overview: A/P: Coagulopathy/bleeding intraop, transfused 2plts/2FFP/5PRBC in OR, f/u coags and transfuse as needed. Hypovolemia 07/24/2018 07/25/2018 Overview: A/P: Postop fluid shifts. Volume resuscitate as needed. Pre-op testing 07/23/2018 09/19/2018 Overview[facility] Surgeon: Thom Soto M.D. Informed Consent Completed: Yes STS Score: CAD: Yes - CAD on Problem List: Yes Is intended procedure a CABG: Yes - is a beta getachew ordered? Yes H & P completed: Yes PA/LAT: Completed CT: Completed Abnormal Follow-up for these incidentally detected lung nodules with a chest CT exam is recommended in 3-6 months. If stable on follow-up imaging, a repeat chest CT exam in 12 months (15-18 months from the initial exam) is recommended MRI: N/A LE US: Completed Cath: Yes - reviewed: Yes EKG: Completed Is patient on Amiodarone? Echo:Pending today EF %: pending today PI's: Completed Carotid: Completed Mapping: Completed Dental: N/A, CABG PFT's: Completed Recent Labs 07/23/18 0835 WBC 8.10 HB 9.3* HCT 31.0* PLT 258 INR 1.0 CREAT 0.94 UA: Normal HCG:N/A ABO/ABO Confirmed: Yes, Positive antibodies Blood ordered: Yes Willing to accept blood: SA Swab: Yes - results: Pending Last Dose of Anticoagulation: Aspirin 81 mg continue Op Note: N/A Pacemaker Check: N/A Implants: no Consults: none DM: No Cardiac Surgical prep: N/A SIGNATURE: Rosalia Prakash APRN.CNP DATE of SERVICE: 07/23/2018 TIME of SERVICE: 2:40 PM CHECKED BY: amber Chronic left-sided low back pain with left-sided sciatica 12/09/2015 08/18/2021 Esophagitis, unspecified 08/29/200709/2010 Unspecified hemorrhoids with out mention of complication 10/20/2010 Overview: Hemorrhoids Diverticulosis of colon (wit hout mention of hemorrhage) 10/20/2010 Overview: Diverticulosis Peptic ulcer, unspecified si te, unspecified as acute or chronic, without mention of hemorrhage, perforation, or obstruction 05/30/2007 documented as of this encounter (statuses as of 05/08/2023) [facility]10-27-2022 History of Past illness Narrative* Problem Noted Date Diagnosed Date Resolved Date Cervical radiculopathy 12/08/202102/01 Left arm pain 12/08/2021 02/01/2022 Ileus 12/20/2018 12/24/2018 Acute blood loss anemia 12/20/201812/13 Acute cholecystitis 12/15/2018 11/12/20 19 Transition of care performed with sharing of clinical summary 07/26/2018 09/19/2018 Overview: Indication for Surgery: CAD Preop LVEF: 59% RVF: Normal Postop LVEF: Normal RVF: Normal Cards: [place] EKG: NSR PMH/PSH: Hypothyroid, diverticulitis, GIB, PUD, appendectomy, former smoker, GERD, Barretts, esophageal stricture (9mm on 05/2018 EGD note below) and large hiatal hernia. Airway Difficulty: Grade III view (only epiglottis visible) - No special instrumentation Pacing Wires: Ventricular: Pulled 07/27 Chronological List of Surgeries and Major Events (Diagnosis): (Surgeries in bold characters) 07/24/2018: CABG x 3 (VASQUES to LAD, SVG to RCA, SVG to OM1) OR course: Coagulopathy/bleeding - transfused multiple products in OR CVICU: Hypotension requiring Levo gtt for MAP goal 75-85. A/P: Wires pulled 07/27, MS ohara drain has been removed too. s/p CABG - ASA, BB, statin intolerance (D/w patient and was perhaps 20 years ago his primary MD started a statin. He reports maybe dizziness? I suggested perhaps muscle aches but he is not sure. He denies any anaphylaxis or needing to be hospitalized for any med adverse reactions - will start simvastatin 20mg po daily. Patient aware of S/Sx to report and placed on discharge medication sheet.) GERD/Esophageal strictures s/p dilations, did not do a LUCRECIA in the OR, NO LUCRECIA post-op. Dispo - 77yo male from [place], [place]. CM following. F/U with OPD and Cards made. For D/C today. Discharge Planning: Anticipated Discharge Date: 07/29 Barriers to Discharge: No Barriers to Discharge, Other: NA Care Management Discharge Needs: Needs Prior to Discharge: OT/PT Evaluation Obesity, Class I, BMI 30-34.9 07/26/2018 09/19/2018 Overview: History: POA Assessment: Body mass index is 28.62 kg/m . Plan: nutrition consult and lifestyle modification Difficult airway for intubation 07/24/2018 07/29/2018 Overview: Fairly easy mask ventilation. Intubation was difficult with Mac 3 blade. only the epiglottis was visualized, but a blind intubation was successful. Atelectasis 07/24/2018 07/26/2018 Overview: Grade 3 airway A/P: Postop bibasilar. Elevated right hemidiaphragm OOB to chair. BPH. Postoperative hypotension 07/24/2018 Overview: A/P: Arrived on Levo, wean to goal MAP 75-85. Coagulopathy 07/24/2018 07/25/2018 Overview: A/P: Coagulopathy/bleeding intraop, transfused 2plts/2FFP/5PRBC in OR, f/u coags and transfuse as needed. Hypovolemia 07/24/2018 07/25/2018 Overview: A/P: Postop fluid shifts. Volume resuscitate as needed. Pre-op testing 07/23/2018 09/19/2018 Overview: [facility] PRE-OP [facility]LIST Surgeon: Thom Soto M.D. Informed Consent Completed: Yes STS Score: CAD: Yes - CAD on Problem List: Yes Is intended procedure a CABG: Yes - is a beta getachew ordered? Yes H & P completed: Yes PA/LAT: Completed CT: Completed Abnormal Follow-up for these incidentally detected lung nodules with a chest CT exam is recommended in 3-6 months. If stable on follow-up imaging, a repeat chest CT exam in 12 months (15-18 months from the initial exam) is recommended MRI: N/A LE US: Completed Cath: Yes - reviewed: Yes EKG: Completed Is patient on Amiodarone? Echo:Pending today EF %: pending today PI's: Completed Carotid: Completed Mapping: Completed Dental: N/A, CABG PFT's: Completed Recent Labs 07/23/18 0835 WBC 8.10 HB 9.3* HCT 31.0* PLT 258 INR 1.0 CREAT 0.94 UA: Normal HCG:N/A ABO/ABO Confirmed: Yes, Positive antibodies Blood ordered: Yes Willing to accept blood: SA Swab: Yes - results: Pending Last Dose of Anticoagulation: Aspirin 81 mg continue Op Note: N/A Pacemaker Check: N/A Implants: no Consults: none DM: No Cardiac Surgical prep: N/A SIGNATURE: Rosalia Prakash APRN.CNP DATE of SERVICE: 07/23/2018 TIME of SERVICE: 2:40 PM CHECKED BY: amber Chronic left-sided low back pain with left-sided sciatica 12/09/2015 08/18/2021 Esophagitis, unspecified 08/29/200709/2010 Unspecified hemorrhoids with out mention of complication 10/20/2010 Overview: Hemorrhoids Diverticulosis of colon (wit hout mention of hemorrhage) 10/20/2010 Overview: Diverticulosis Peptic ulcer, unspecified si te, unspecified as acute or chronic, without mention of hemorrhage, perforation, or obstruction 05/30/2007 documented as of this encounter (statuses as of 05/21/2023) [facility]10-[facility] History of Past illness Narrative* Problem Noted Date Diagnosed Date Resolved Date Cervical radiculopathy 12/08/202102/01 Left arm pain 12/08/2021 02/01/2022 Ileus 12/20/2018 12/24/2018 Acute blood loss anemia 12/20/201812/13 Acute cholecystitis 12/15/2018 12/25/19 19 Transition of care performed with sharing of clinical summary 07/26/2018 09/19/2018 Overview: Indication for Surgery: CAD Preop LVEF: 59% RVF: Normal Postop LVEF: Normal RVF: Normal Cards: [place] EKG: NSR PMH/PSH: Hypothyroid, diverticulitis, GIB, PUD, appendectomy, former smoker, GERD, Barretts, esophageal stricture (9mm on 05/2018 EGD note below) and large hiatal hernia. Airway Difficulty: Grade III view (only epiglottis visible) - No special instrumentation Pacing Wires: Ventricular: Pulled 07/27 Chronological List of Surgeries and Major Events (Diagnosis): (Surgeries in bold characters) 07/24/2018: CABG x 3 (VASQUES to LAD, SVG to RCA, SVG to OM1) OR course: Coagulopathy/bleeding - transfused multiple products in OR CVICU: Hypotension requiring Levo gtt for MAP goal 75-85. A/P: Wires pulled 07/27, MS ohara drain has been removed too. s/p CABG - ASA, BB, statin intolerance (D/w patient and was perhaps 20 years ago his primary MD started a statin. He reports maybe dizziness? I suggested perhaps muscle aches but he is not sure. He denies any anaphylaxis or needing to be hospitalized for any med adverse reactions - will start simvastatin 20mg po daily. Patient aware of S/Sx to report and placed on discharge medication sheet.) GERD/Esophageal strictures s/p dilations, did not do a LUCRECIA in the OR, NO LUCRECIA post-op. Dispo - 77yo male from [place], [place]. CM following. F/U with OPD and Cards made. For D/C today. Discharge Planning: Anticipated Discharge Date: 07/29 Barriers to Discharge: No Barriers to Discharge, Other: NA Care Management Discharge Needs: Needs Prior to Discharge: OT/PT Evaluation Obesity, Class I, BMI 30-34.9 07/26/2018 09/19/2018 Overview: History: POA Assessment: Body mass index is 28.62 kg/m . Plan: nutrition consult and lifestyle modification Difficult airway for intubation 07/24/2018 07/29/2018 Overview: Fairly easy mask ventilation. Intubation was difficult with Mac 3 blade. only the epiglottis was visualized, but a blind intubation was successful. Atelectasis 07/24/2018 07/26/2018 Overview: Grade 3 airway A/P: Postop bibasilar. Elevated right hemidiaphragm OOB to chair. BPH. Postoperative hypotension 07/24/2018 Overview: A/P: Arrived on Levo, wean to goal MAP 75-85. Coagulopathy 07/24/2018 07/25/2018 Overview: A/P: Coagulopathy/bleeding intraop, transfused 2plts/2FFP/5PRBC in OR, f/u coags and transfuse as needed. Hypovolemia 07/24/2018 07/25/2018 Overview: A/P: Postop fluid shifts. Volume resuscitate as needed. Pre-op testing 07/23/2018 09/19/2018 Overview: [facility] PRE-OP CHECKLIST Surgeon: Thom Soto M.D. Informed Consent Completed: Yes STS Score: CAD: Yes - CAD on Problem List: Yes Is intended procedure a CABG: Yes - is a beta getachew ordered? Yes H & P completed: Yes PA/LAT: Completed CT: Completed Abnormal Follow-up for these incidentally detected lung nodules with a chest CT exam is recommended in 3-6 months. If stable on follow-up imaging, a repeat chest CT exam in 12 months (15-18 months from the initial exam) is recommended MRI: N/A LE US: Completed Cath: Yes - reviewed: Yes EKG: Completed Is patient on Amiodarone? Echo:Pending today EF %: pending today PI's: Completed Carotid: Completed Mapping: Completed Dental: N/A, CABG PFT's: Completed Recent Labs 07/23/18 0835 WBC 8.10 HB 9.3* HCT 31.0* PLT 258 INR 1.0 CREAT 0.94 UA: Normal HCG:N/A ABO/ABO Confirmed: Yes, Positive antibodies Blood ordered: Yes Willing to accept blood: SA Swab: Yes - results: Pending Last Dose of Anticoagulation: Aspirin 81 mg continue Op Note: N/A Pacemaker Check: N/A Implants: no Consults: none DM: No Cardiac Surgical prep: N/A SIGNATURE: Rosalia Prakash APRN.CNP DATE of SERVICE: 07/23/2018 TIME of SERVICE: 2:40 PM CHECKED BY: amber Chronic left-sided low back pain with left-sided sciatica 12/09/2015 08/18/2021 Esophagitis, unspecified 08/29/200709/2010 Unspecified hemorrhoids with out mention of complication 10/20/2010 Overview: Hemorrhoids Diverticulosis of colon (wit hout mention of hemorrhage) 10/20/2010 Overview: Diverticulosis Peptic ulcer, unspecified si te, unspecified as acute or chronic, without mention of hemorrhage, perforation, or obstruction 05/30/2007 documented as of this encounter (statuses as of 05/30/2023) [facility]10-[facility]-20[facility] History of Present illness Narrative* Bethanie Cline, PT - 12/08/2021 10:08 AM EDT Episode Visit Count: 1 Therapist That Will Accept/Oversee The Plan Of Care: Bethanie Cline PT Start of Care Date: 12/08/21 Onset Date: 09/27/21 Plan of Care Certification Date: 12/08/21 Next Certification Due Date: 01/19/22 Patient Identified by Name and Date of : Yes REHABILITATION AND SPORTS THERAPY PHYSICAL THERAPY EVALUATION PLAN OF CARE: Assessment: Jayden Craig presents with diagnosis of left cervical radiculopathy that interferes with sleeping;driving;physical activities . He presents with impairments in ADL's, flexibility, independence in exercise, overall function, posture, range of motion, symptom management, and tissue tende rness. PROMIS (Patient-Reported Outcomes Measurement Information System) scores were reviewed and physical function domain identified as a rehabilitation concern. Prognosis for therapy is Good due to: within-session changes;current objective clinical presentation . He will benefit from skilled therapy services to meet the goals established for this plan of care as noted below. Goals for Episode of Care: created on 12/08/21 through 02/02/22 Independent in a Home Exercise Program. Patient will decrease pain to 2/10 with functional activities to allow patient to improve performance of ADL's . Restore pain free cervical ROM to 65-70 degrees rotations to allow for improved tolerance to driving . Drive with no aggravation of pain/symptoms. Sleep throughout the night without pain/symptoms. Knowledgeable RE: prophylaxis. Patient Goals: alleviate pain . Planned Interventions, Frequency, and Duration: Current Frequency: 2x/week Duration: 4 weeks Total Number of Visits Planned: 8 Planned Treatment Interventions: Therapeutic exercise (51670);Neuromuscular re- education (46292);Manual therapy (32180);Self-alf management (98040);Patient/Family/Caregiver Education;Body Mechanics Training;Ultrasound (32143) PLAN FOR NEXT VISIT: Will trial manual therapy for upper trap neck reigon. modify cervical exs as necessary Patient demonstrates good understanding of plan of care and treatment. The above goals and plan of care were discussed and agreed upon by patient/family. SUBJECTIVE: Jayden Craig is a 80 year old male seen today for Pain in neck shooting down neck anddown left arm . Numbness and tingling. Pain reduced with 2 days of prednisone. Patient Goals: alleviate pain . 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 Home Environment Patient Lives With: Spouse Intake Information: Prescription present Previous Treatment: Heat ;Steroids Red Flags Cervical Arterial Dysfunction Clinical Reasoning: No identified risk factors Red Flags - Cervical Cervical Arterial Dysfunction Clinical Reasoning: No identified risk factors Spine History Pain is Worse Always: Lying;Driving Pain is Better Sometimes: No position Sleeping Position: Side lying right;Side lying left Sleep Affected by Pain: Pain awakens;Pain keeps from falling asleep Pain: Pain Pain Level: 2 (worst 8/10 in last week.) Pain Location: Neck - Left;Arm - Left (into hand and fingers) Description: (shock type pain) Frequency: Continuous Post Treatment Pain Post Treatment Pain Level: Better Post Treatment Pain Location: Arm - Left Post Treatment Symptoms: decresaed tingling in arm PROMIS Scales Higher is Better 07/12/2021 08/17/2021 09/20/2021 Phys Func - Score 37 (moderate dysfunction) 38 (moderate dysfunction) - Phys Func - Percentile 10 % 12 % - Social Roles - Score 49 (within normal limits) 52 (within normal limits) - Social Role - Percentile 46 % 58 % - GH Physical - Score - - 34.9 (Poor) GH Physical - Percentile - - 7 % GH Mental - Score - - 53.3 (Very Good) GH Mental - Percentile - - 63 % Self-Eff Symptom - Score 36 (Low) 44 (Average) - Self-Eff Symptom - Percentile 8 % 27 % - T-scores: mean of general population = 50. 5 points is clinically meaningfully difference Percentiles provide an indication of how the patient's score ranks in relation to the general population. Higher percentile rankings indicate better function/quality of life. 50th percentile is the average of the general population and indicates half of respondents had a worse score. Lower is Better 07/12/2021 08/17/2021 Fatigue - Score 56 (mild) 51 (within normal limits) Fatigue - Percentile 27 % 46 % T-scores: mean of general population = 50. 5 points is clinically meaningfully difference Percentiles provide an indication of how the patient's score ranks in relation to the general population. Higher percentile rankings indicate better function/quality of life. 50th percentile is the average of the general population and indicates half of respondents had a worse score. OBJECTIVE MEASURES WITH LEVEL OF FUNCTION: Posture / Alignment Posture: Forward head;Rounded shoulders (head with left LF 10 degrees) Sitting Posture: Poor Spine Observations L Cervical Spine Palpation Tenderness: Upper trapezius (tightness) Cervical Spine ROM Cervical ROM : Measurement AROM Cervical Flexion AROM (degrees) : 20 Degrees Cervical Extension AROM (degrees) : 20 Degrees (increased pain) Cervical Side-Bend Right AROM (degrees): 10 Degrees (stiffness in neck) Cervical Side-Bend Left AROM (degrees) : 20 Degrees (stiffness in neck) Cervical Rotation Right AROM (degrees) : 59 Degrees (neck stiffenss) Cervical Rotation Left AROM (degrees) : 55 Degrees Repeated Test Movements - Cervical Other Cervical Repeated Test Movements: (right LF with decreased tingling in left UE) Special Tests - Cervical Cervical Special Tests: Cervical Distraction;Spurling Cervical Distraction: Negative Spurling: Left Positive Gait Gait Observation: forward flexed trunk posture with forward head which is long standing Education: Education Learning Preferences: Demonstration;Explanation;Performance;Printed Materials Barriers: None Learning/educational needs: Home exercise program;Plan of Care Education Provided: Yes, see treatment interventions for education provided Education Provided To: Patient Education Mode/Type: Demonstration;Explanation/Discussion;Literature/Printed Materials;Performance Response to Education/Teach Back: States/Identifies;Return Demonstration TREATMENT: PT Treatment Interventions: Therapeutic Exercise;Neuromuscular Re-Education Evaluation Therapeutic Exercise: 1: rightLF 15 sec hold x3 cues and mirror used for form 2: right rotation 15 sec hold x3 Skilled Intervention: Patient was educated in proper exercise technique and purpose for exercises. Skilled judgment was provided in selection of appropriate interventions. Provided written instruction for home exercise program to facilitate proper performance and compliance. Correct performance of therapeutic exercises was facilitated with verbal and visual cuing. Educated patient on rationale for performing exercises in regards to ROM and function . Patient education as noted. Neuromuscular Re-Education: 1: pt education on correction of left LF position of cervical region with sitting. Utilized mirror for feed back Skilled Intervention: Neuromuscular Re-Education: 1: pt education on correction of left LF position of cervical region with sitting. Utilized mirror for feed back Skilled Intervention: Education in proprioceptive/kinesthetic awareness during sitting. Home Exercise Program Assigned: 1: as outlined above Billing * Evaluation Low Complexity: 1 Unit Therapeutic Exercise Treatment Minutes: 20 Neuromuscular Re-Education Treatment Minutes: 5 Total Treatment Time Minutes (timed/untimed): 40 Bethanie Cline PT [facility] History of Present illness Narrative* Alfredo Zayas MD - 12/07/2021 2:00 PM EDT PRIMARY CARE PHYSICIAN: Eloisa Espinal [address] [place] [address] HISTORY OF PRESENT ILLNESS: Mr. Craig is a 80 year old male who presents today for a cardiovascular medicine yearly visit. CARDIOVASCULAR PROBLEMS: 1. Coronary artery disease involving [place] coronary artery of [place] heart without angina pectoris- ICD9: 414.01, ICD10: I25.10 (primary diagnosis) 2. Hx of CABG - ICD9: V45.81, ICD10: Z95.1 3. Mixed hyperlipidemia - ICD9: 272.2, ICD10: E78.2 4. Essential hypertension - ICD9: 401.9, ICD10: I10 Has been diagnosed as having a cervical radiculopathy as a source of his shoulder and arm pains. Denies any active chest pain shortness of breath. He is compliant with medications. Patient has documented coronary artery disease but no active angina person at this time.. Jayden denies any other active cardiac symptoms. HISTORICAL DATA UPDATED: 12/06/2021 CARDIAC RISK FACTORS: Smoking: No Diabetes: No Lipids: Yes Obesity: No HTN: Yes Sedentary Lifestyle: No Exercises 30 min 3 /wk At [facility]. Family History of M.A.C.E: No CHF: No PVD/Stroke /TIA: No MOST RECENT CARDIAC TESTING: UPDATED 10/08/2019 Echo: 08/27/18: CONCLUSIONS: - Technically difficult exam due to body habitus. - Exam indication: s/p CABG (07/30/18) - The left ventricle is normal in size. Left ventricular systolic function is normal. EF = 59 5% (2D biplane) - The right ventricle is normal in size. Right ventricular systolic function is normal. - Estimated right ventricular systolic pressure is not reported due to an insufficient tricuspid regurgitation signal. Estimated right atrial pressure is 3 mmHg based on IVC assessment. - Exam was compared with the prior echocardiographic exam performed on 07/23/2018. S/p CABG. There is no significant change. Cardiac Catheterization: 06/28/18: LMT: - The proximal LMT is narrowed 30 % - focal disease. LAD: - The LAD has moderate diffuse disease. - The proximal LAD - moderate diffuse disease. - The mid LAD - moderate diffuse disease and ectatic. - The distal - moderate diffuse disease. - The 1st diagonal is narrowed 100 % - focal disease. LCX: - The proximal circumflex - mild diffuse disease. - The 1st obtuse marginal circumflex is narrowed 90 % - focal disease. Additional Comment: There is a 90% stenosis in the proximal segments of the superior and inferior subdivisions of a large caliber OM1 vessel. RAMUS: - The Ramus is Absent. RCA: - The proximal RCA is narrowed 60 % - focal disease and ostial. - The mid RCA - mild luminal irregularities. - The distal RCA - mild luminal irregularities. Holter / Event Recorder : 08/01/19: rare sve, No atrial fibrillation. Stress Test : 08/27/18: NORMAL SINUS RHYTHM. OBSERVATION: 1. THE TEST WAS TERMINATED DUE TO CHEST DISCOMFORT. 2. ADEQUATE HEART RATE RESPONSE OF 94% PREDICTED MAXIMAL HEART RATE, VERY ABNORMAL HEART RATE RECOVERY @ 1 MINUTE POST-EXERCISE. HIGH RISK, NORMAL CHRONOTROPIC RESPONSE INDEX (>0.62 ON BETA- GETACHEW). 3. FUNCTIONAL CAPACITY IS ESTIMATED AT 3.1 METS, STAGE 3 LAUREN [place] [address], POOR FUNCTIONAL CAPACITY FOR AGE AND GENDER. HIGH RISK. 4. NORMAL BLOOD PRESSURE RESPONSE TO STRESS. 5. NORMAL ST SEGMENT RESPONSE TO STRESS. 6. ABNORMAL ALICEA TREADMILL SCORE (<5 BUT >/= -10). INTERMEDIATE RISK. 7. CHEST DISCOMFORT DURING STRESS. 8. NO ARRHYTHMIAS WERE NOTED AT REST OR DURING STRESS. 9. THE PREVIOUS TEST IS NOT AVAILABLE FOR COMPARISON. CONCLUSION: ABNORMAL DUE TO: CHEST DISCOMFORT, LOW HEART RATE RECOVERY, POOR FUNCTIONAL CAPACITY, ABNORMAL ALICEA TREADMILL SCORE. ADDITIONAL COMMENTS: TEST TERMINATED D/T CHEST DISCOMFORT AROUND HIS SURGICAL SITE. RESOLVED DURING RECOVERY. 5 WEEKS POST CABG. 06/26/18: CONCLUSION: ABNORMAL DUE TO: LOW HEART RATE RECOVERY, FAIR FUNCTIONAL CAPACITY, ABNORMAL ALICEA TREADMILL SCORE. ADDITIONAL COMMENTS: BORDERLINE ST CHANGES DURING STRESS AND POST STRESS. 0.5 MM UPSLOPING AND HORIZONTAL IN INF AND LAT LEADS. 0.5 MM DOWNSLOPING IN ANT LEADS. RESOLVED BY MIN 7 OF RECOVERY. PT WAS ASYMPTOMATIC.. 06/26/18: NM: CONCLUSIONS: 1. SPECT Perfusion Study: Abnormal. 2. No evidence of scarred myocardium. 3. There is moderate (10-20%) ischemia in the territory of the LAD. 4. Fair functional capacity for age and gender. 5. Left ventricle is normal in size. The left ventricle systolic function is normal. 6. Right ventricle is normal in size. The right ventricle systolic function is normal. 7. LAD calcification noted. 8. This is an intermediate risk scan. Gated Stress FBP Gated Rest FBP LVEF % 72 72 TILT: === Device: === Vasc: 07/23/18: IMPRESSION RIGHT SIDE Common carotid artery: Patent. Unable to adequately visualize the origin of the vessel. Internal carotid artery: 20-39% stenosis. Vertebral artery: Patent and antegrade flow noted. Subclavian artery: Patent. Unable to adequately visualize the origin of the vessel. LEFT SIDE Internal carotid artery: 20-39% stenosis. Vertebral artery: Patent and antegrade flow noted. PAST CARDIAC/VASCULAR EVENTS: 07/24/18: CABG, [facility]: VASQUES to LAD, SV to OM, Sv to RCA. ALLERGIES Allergen Reactions Lipitor [Atorvastat* Intolerance myalgias Omnicef [Cefdinir] Diarrhea Zithromax [Azithrom* MEDICATIONS: aspirin, enteric coated (ASPIRIN, ENTERIC COATED) 325 mg EC tablet Take 1 tablet by mouth once daily. predniSONE (DELTASONE) 10 mg tablet Take 6 pills (all at once) on day 1, 5 pills on day 2, 4 pills on day 3, 3 pills on day 4, 2 pills on day 5, and 1 pill on day 6. fluticasone-salmeterol HFA (ADVAIR HFA) 115-21 mcg/actuation inhaler Inhale 2 Puffs as instructed twice daily. Rinse mouth after use. metoprolol tartrate, short acting, (LOPRESSOR) 25 mg tablet Take 1 tablet by mouth twice daily. levothyroxine (LEVOXYL) 200 mcg tablet Take 1 tablet by mouth once daily. Take on empty stomach. For Thyroid. lisinopril (ZESTRIL, PRINIVIL) 10 mg tablet Take 1 tablet by mouth once daily. simvastatin (ZOCOR) 80 mg tablet Take 1 tablet by mouth daily at bedtime. pantoprazole DR (PROTONIX) 40 mg tablet Take 1 tablet by mouth twice daily. Take on empty stomach, 1/2 hr before meal. magnesium oxide (MAG-OX) 400 mg (241.3 mg magnesium) tablet Take 1 tablet by mouth once daily. fluticasone (FLONASE) 50 mcg/actuation nasal spray USE 2 SPRAYS IN EACH NOSTRIL ONCE DAILY. RINSE MOUTH AFTER USE. senna-docusate (SENNA-S) 8.6-50 mg per tablet Take 1 tablet by mouth once daily. acetaminophen (TYLENOL) 325 mg tablet Take 2 tablets by mouth every 4 hours as needed. THERAPEUTIC MULTIVITAMIN TAB one tab daily meloxicam (MOBIC) 15 mg tablet Take 1 tablet by mouth once daily. With food. (Patient not taking: No sig reported) budesonide-formoterol (SYMBICORT) 160-4.5 mcg/actuation inhaler Inhale 2 Puffs as instructed twice daily. (Patient not taking: Reported on 12/07/2021) aspirin 325 mg tablet Take 1 tablet by mouth once daily. (Patient not taking: Reported on 12/07/2021) REVIEW OF SYSTEMS: GENERAL: Negative for: Weight loss or gain, Fever or Chills, Weakness and Sleep difficulties. HEENT: Negative for: Headache, Impaired Vision, Glasses, Hearing Impairment, Ringing in Ears, Nosebleeds, Poor dental care, Bleeding Gums, Dentures NECK: Negative for: Swelling, Pain, Stiffness RESPIRATORY: Negative for: Cough, Blood in Sputum, Shortness of breath, Wheezing, Apnea GASTROINTESTINAL: Negative for: Trouble swallowing, Heartburn, Change in bowel habits, Blood in stool, Dark black stools MUSCULOSKELETAL: Negative for: Muscle or joint pain, Stiffness , Joint swelling NEUROLOGIC/PSYCHIATRIC: Negative for: Weakness, Paralysis, Numbness, Tingling, Tremor, Nervousness,Depressed mood, Memory loss SKIN: Negative for: Rashes, Itching HEMATOLOGICAL/LYMPHATIC: Negative for: Easy bruising , Easy bleeding ENDOCRINE: Negative for: Heat or cold intolerance, Excessive sweating, Frequent urination, Frequentthirst PHYSICAL EXAMINATION: BP 124/72 Pulse 96 Resp 18 Ht 5' 9 (1.75m) Wt 189 lb (85.7kg) SpO2 98% BMI 27.90 kg/(m^2). General: Well appearing, in no acute distress. Skin: No clubbing, no cyanosis. Eyes: Extra ocular movements intact Oropharynx: Teeth in good repair. Neck: No jugular venous distention, no carotid bruits, carotids have a normal upstroke, no palpablethyromegaly. Lungs: Clear to auscultation bilaterally, no wheezing or rhonchi. Heart: Regular rhythm, PMI not displaced, S1, S2 normal, no S3, no S4, no heaves, no rub and no murmur. Abdomen: Soft, nontender, bowel sounds normal, no palpable organomegaly, no bruits. Extremities: No peripheral edema . Grade 2/4 distal pulses bilaterally. Neuro: Oriented to person, place and time, alert, cooperative, gait coordinated. CARDIOVASCULAR MEDICINE TESTING: No Cardiovascular testing perfomed today. I have personally reviewed the Laboratory Testing. Cholesterol, Total (mg/dL) Date Value 06/28/2021 140 10/31/2019 146 08/27/2018 162 HDL Cholesterol (mg/dL) Date Value 06/28/2021 67 10/31/2019 70 08/27/2018 65 LDL Cholesterol (mg/dL) Date Value 06/28/2021 62 10/31/2019 65 08/27/2018 82 Triglyceride (mg/dL) Date Value 06/28/2021 57 10/31/2019 55 08/27/2018 76 CMP: Glucose 113 06/28/2021 BUN 11 06/28/2021 Creatinine 1.00 06/28/2021 Sodium 128 06/28/2021 Potassium 4.6 06/28/2021 Chloride 95 06/28/2021 CO2 Content, Venous 24 06/28/2021 Protein, Total 6.6 06/28/2021 Albumin 4.3 06/28/2021 Calcium 9.0 06/28/2021 Alkaline Phosphatase 74 06/28/2021 Bilirubin, Total 0.5 06/28/2021 AST 37 06/28/2021 ALT 23 06/28/2021 Hemoglobin (g/dL) Date Value 06/28/2021 11.2 09/08/2020 11.8 Hematocrit (%) Date Value 06/28/2021 35.6 09/08/2020 34.5 WBC (k/uL) Date Value 06/28/2021 5.17 09/08/2020 6.44 Platelet Count (k/uL) Date Value 06/28/2021 198 09/08/2020 206 Hemoglobin A1C (%) Date Value 10/31/2019 5.8 TSH Date Value Ref Range Status 06/28/2021 0.913 0.270 - 4.200 mIU/L Final IMPRESSION: Mr. Craig is a 80 year old male with established coronary disease history of bypass grafting diffuse coronary atherosclerosis, no active angina. Patient has been diagnosed as having cervical radiculopathy as a source of his shoulder and arm pain. His hyperlipidemia and and blood pressure issues arewell controlled on current medications. Plan : Continue current medications Lipids and electrolyte monitor in through primary Follow-up with general cardiology in 1 year. The patient would like to have a follow-up [place] [facility]. We will acquiesce. 1. Coronary artery disease involving [place] coronary artery of [place] heart without angina pectoris- ICD9: 414.01, ICD10: I25.10 (primary diagnosis) 2. Hx of CABG - ICD9: V45.81, ICD10: Z95.1 3. Mixed hyperlipidemia - ICD9: 272.2, ICD10: E78.2 4. Essential hypertension - ICD9: 401.9, ICD10: I10 During this 20 minute visit with greater than 50% of the time was spent in direct, [id number], contact with the patient for management and counseling. Alfredo Zayas M.D. [facility] This note was partially generated using [employer] voice recognition system, and there may be some incorrect words, spellings, and punctuation that were not noted in checking the note before saving. documented in this encounterOhiohealth Van Wert Hospital10-26-2022 Nurse Note* Estelle Wray MA - 12/07/2021 1:44 PM EDT Patient has no cardiac complaints today. Estelle Jayden PHARMACEUTICAL REPRESENTATIVE documented in this encounterOhiohealth Van Wert Hospital10-24-2022 History of Present illness Narrative* Kel Sun MD - 12/05/2021 9:20 AM EDT Kel Sun MD Department of Orthopaedics [facility] [address] [facility] [address] Dept: [phone] Dept December 05, [address] Espinal for an opinion regarding left arm pain. My final recommendations will be communicated back to the requesting physician by way of shared Medical record or letter to requesting physician via US mail. CHIEF COMPLAINT: New and Pain of the Left Elbow HPI patient here today for left elbow pain. He states that he fell in August 2021 and landed on the elbow. He has numbness and tingling down the arm to hand and over the last month the pain shoots up into his shoulder and across the back. He is right hand dominant. New x-ray today at [facility]. ASSESSMENT: M54.12 Cervical radiculopathy (primary encounter diagnosis) M79.602 Left arm pain PLAN: Based on his history and exam, I suspect his arm pain is much more likely related to cervical spine. We'll try some prednisone to get things settled either way. Also some PT appointments. FOLLOW UP INSTRUCTIONS: As needed. Mr. Jayden Craig was advised as to contrast therapies and/or to take analgesics/anti-inflammatories as needed and all contraindications were reviewed. OBJECTIVE: Mr. Jayden Craig is a pleasant 80 year old in no apparent distress. Gen:There were no vitals taken for this visit. nl development, non obese, no deformities ENT: Normocephalic, normal hearing, moist mucosa CV: Pulses:Radial= 2+ and symmetric, capillary refill < 2 secs, no peripheral edema/varicosities Skin: no rash, bruising or lesions. Good turgor. Psych: cooperative and appropriate, alert and oriented x 3, good mood and affect. Musculoskeletal: Noted kyphosis. Mild limitation with range of motion of the cervical spine without pain. Spurling signs are posititve to the left. No atrophy of the deltoid and shoulder musculature. Left shoulder isnontender to palpation over the SC joint, clavicle and AC joint. no tenderness to palpation over the posterior shoulder, nontender anterior lateral corner of the shoulder and greater tuberosity. Active range of motion is full of forward elevation, external rotation, and internal rotation ;as is Passive range Elbow has full ROM and is nontender. Neg. Tinel's at the elbow. Sensation is intact in the axillary, radial, median and ulnar nerve distribution IMAGING: IMPRESSION: Osteopenia and spondylosis of the cervical spine. Mild osteoarthrosis of the left elbow. Data Collection Associate: ELAINE Transcribe Date/Time: Dec 06 2021 12:23P Dictated by : EDIN HANSEN MD This examination was interpreted and the report reviewed and electronically signed by: EDIN HANSEN MD on Dec 06 2021 12:26PM EST Results-Findings * * *Final Report* * * DATE OF EXAM: Dec 05 2021 10:40AM [id number] - XR CERVICAL 4V AP/LAT/OBL / PROCEDURE REASON: multiple diagnoses * * * * Physician Interpretation * * * * Left elbow and cervical spine radiographs HISTORY: 80 years old Clinical information: Left elbow pain Worsening left elbow pain after falling and fracturing it in August of this year. (accession [id number]), Pain down left arm (accession [id number]) TECHNIQUE: Images: XR ELBOW 2V AP/LAT LT, XR CERVICAL 4V AP/LAT/OBL Comparison: None. Left elbow RESULT: Mild osteophyte formation involving the coronoid process of the ulna. No fracture or dislocation identified. No elbow joint effusion. No soft tissue abnormality identified. Cervical spine RESULT: Diffuse osteopenia. Endplate osteophyte formation at multiple levels in the cervical spine. No gross malalignment. No fracture. Multilevel bilateral neural foraminal stenosis. Left neural foramina are suboptimally evaluated. The prevertebral soft tissues are within normal limits. Supporting Subjective Information Below: Past Medical History: PAST MEDICAL HISTORY Diagnosis Date Escobedo's esophagus 1989 Hiatal hernia 1989 History of coronary artery bypass graft 07/24/2018 VASQUES in situ mammary end to side mid LAD, Vein graft ascending aorta end to side RCA, Vein graft ascending aorta end to side obtuse marginal 1 Peptic ulcer, unspecified site, unspecified as acute or chronic, without mention of hemorrhage, perforation, or obstruction 2004 Unspecified hypothyroidism 1989 Past Surgical History: PAST SURGICAL HISTORY Procedure Laterality Date APPENDECTOMY COLONOSCOPY FLX DX W/COLLJ SPEC WHEN PFRMD 06/28/2004 Colonoscopy COLONOSCOPY FLX DX W/COLLJ SPEC WHEN PFRMD 08/06/2015 Colonoscopy CORONARY ARTERY BYPASS GRAFT HX 07/24/2018 VASQUES in situ mammary end to side mid LAD, Vein graft ascending aorta end to side RCA, Vein graft ascending aorta end to side obtuse marginal 1. EGD N/A 06/29/2020 Dr. Keating EGD TRANSORAL BIOPSY SINGLE/MULTIPLE 08/30/2009 EGD TRANSORAL BIOPSY SINGLE/MULTIPLE 08/23/2011 repeat in 2 years ESOPHAGOGASTRODUODENOSCOPY TRANSORAL DIAGNOSTIC 10/06/1998 EGD ESOPHAGOGASTRODUODENOSCOPY TRANSORAL DIAGNOSTIC 01/29/2000 EGD ESOPHAGOGASTRODUODENOSCOPY TRANSORAL DIAGNOSTIC 08/04/2003 EGD ESOPHAGOGASTRODUODENOSCOPY TRANSORAL DIAGNOSTIC 08/29/2007 EGD ESOPHAGOGASTRODUODENOSCOPY TRANSORAL DIAGNOSTIC 08/28/2013 EGD ESOPHAGOGASTRODUODENOSCOPY TRANSORAL DIAGNOSTIC 10/08/2017 EGD HEART SURGERY HX LAPAROSCOPIC CHOLECYSTECTOMY 12/15/2018 PAST SURGICAL HISTORY OF N/A 04/25/2017 Back surgery done at [facility], [address] [place] [address] and cleaned up arthritis Family History: FAMILY HISTORY Problem Relation Age of Onset Emphysema Father Emphysema Mother other (no cardiac hx per pt) Other Social History: Social History Tobacco Use Smoking status: Former Packs/day: 0.50 Years: 27.00 Pack years: 13.50 Types: Cigarettes Quit date: 1982 Years since quittin.8 Smokeless tobacco: Never Tobacco comments: occasional former pipe smoker Vaping Use Vaping Use: Never used Substance Use Topics Alcohol use: Yes Alcohol/week: 5.0 standard drinks Types: 2 Cans of Beer (12oz) per week Comment: 2-3 cans of beer per week Drug use: No Medications: Current Outpatient Medications Medication Sig fluticasone-salmeterol HFA (ADVAIR HFA) 115-21 mcg/actuation inhaler Inhale 2 Puffs as instructed twice daily. Rinse mouth after use. budesonide-formoterol (SYMBICORT) 160-4.5 mcg/actuation inhaler Inhale 2 Puffs as instructed twice daily. metoprolol tartrate, short acting, (LOPRESSOR) 25 mg tablet Take 1 tablet by mouth twice daily. levothyroxine (LEVOXYL) 200 mcg tablet Take 1 tablet by mouth once daily. Take on empty stomach. For Thyroid. lisinopril (ZESTRIL, PRINIVIL) 10 mg tablet Take 1 tablet by mouth once daily. simvastatin (ZOCOR) 80 mg tablet Take 1 tablet by mouth daily at bedtime. pantoprazole DR (PROTONIX) 40 mg tablet Take 1 tablet by mouth twice daily. Take on empty stomach, 1/2 hr before meal. magnesium oxide (MAG-OX) 400 mg (241.3 mg magnesium) tablet Take 1 tablet by mouth once daily. fluticasone (FLONASE) 50 mcg/actuation nasal spray USE 2 SPRAYS IN EACH NOSTRIL ONCE DAILY. RINSE MOUTH AFTER USE. aspirin 325 mg tablet Take 1 tablet by mouth once daily. THERAPEUTIC MULTIVITAMIN TAB one tab daily meloxicam (MOBIC) 15 mg tablet Take 1 tablet by mouth once daily. With food. (Patient not taking: Reported on 12/05/2021) senna-docusate (STOOL SOFTENER-LAXATIVE) 8.6-50 mg per tablet Take 1 tablet by mouth once daily. acetaminophen (TYLENOL) 325 mg tablet Take 2 tablets by mouth every 4 hours as needed. No current facility-administered medications for this visit. Allergies: Lipitor [Atorvastatin Calcium], Omnicef [Cefdinir], and Zithromax [Azithromycin] ROS: General (negative for fatigue, malaise, weight loss/gain) HEENT (negative for headache, earache, recent vision changes, sinus pain, sore throat) Respiratory (no recent shortness of breath, hemoptysis) CV (negative for chest tightness, palpitations) Musculoskeletal (see HPI) Psych (no depression, anxiety) REFERRING PHYSICIAN: Mr. Jayden Craig was referred to md for consultation by the following physician. This consultation note will be sent to the following physician by either mail or electronic medical record. Eloisa Espinal [address] [facility] [address] Eloisa Espinal MD [address] [facility] [address] Kel Sun MD documented in this encounterOhiohealth Van Wert [facility]09-21-2022 History of Present illness Narrative* Eloisa Espinal MD - 11/02/2021 2:00 PM EDT Chief Complaint Patient presents with: Pain (Elbow Pain): Left HPI Jayden Craig is a 80 year old male who presents here today for Complaint(s) of elbow pain. Left elbow pain since August when he fell and his elbow. He stated that the scrap healed up but is having sharp shooting pain down the arm and into the shoulder. He has tingling in the the arm and hands. The sharp pain started about the end of August or start of September. Has been using OTC roll on medication and pill form of Nervive for pain relief. The roll on is BID and the pill is once a day. He finds it helps but only lasts about 8-10 hours depending on how much he has used his arm. Denies any swelling. It is not keeping him up at night. He is able to do most of his activities, works through the pain. Past medical history, appointments, medications, allergies reviewed. Previous Medical History PAST MEDICAL HISTORY Diagnosis Date Escobedo's esophagus 1989 Hiatal hernia 1989 History of coronary artery bypass graft 07/24/2018 VASQUES in situ mammary end to side mid LAD, Vein graft ascending aorta end to side RCA, Vein graft ascending aorta end to side obtuse marginal 1 Peptic ulcer, unspecified site, unspecified as acute or chronic, without mention of hemorrhage, perforation, or obstruction 2004 Unspecified hypothyroidism 1989 Previous Surgical History PAST SURGICAL HISTORY Procedure Laterality Date APPENDECTOMY COLONOSCOPY FLX DX W/COLLJ SPEC WHEN PFRMD 06/28/2004 Colonoscopy COLONOSCOPY FLX DX W/COLLJ SPEC WHEN PFRMD 08/06/2015 Colonoscopy CORONARY ARTERY BYPASS GRAFT HX 07/24/2018 VASQUES in situ mammary end to side mid LAD, Vein graft ascending aorta end to side RCA, Vein graft ascending aorta end to side obtuse marginal 1. EGD N/A 06/29/2020 Dr. Keating EGD TRANSORAL BIOPSY SINGLE/MULTIPLE 08/30/2009 EGD TRANSORAL BIOPSY SINGLE/MULTIPLE 08/23/2011 repeat in 2 years ESOPHAGOGASTRODUODENOSCOPY TRANSORAL DIAGNOSTIC 10/06/1998 EGD ESOPHAGOGASTRODUODENOSCOPY TRANSORAL DIAGNOSTIC 01/29/2000 EGD ESOPHAGOGASTRODUODENOSCOPY TRANSORAL DIAGNOSTIC 08/04/2003 EGD ESOPHAGOGASTRODUODENOSCOPY TRANSORAL DIAGNOSTIC 08/29/2007 EGD ESOPHAGOGASTRODUODENOSCOPY TRANSORAL DIAGNOSTIC 08/28/2013 EGD ESOPHAGOGASTRODUODENOSCOPY TRANSORAL DIAGNOSTIC 10/08/2017 EGD HEART SURGERY HX LAPAROSCOPIC CHOLECYSTECTOMY 12/15/2018 PAST SURGICAL HISTORY OF N/A 04/25/2017 Back surgery done at [facility], [address] [place] [address] and cleaned up arthritis Family History FAMILY HISTORY Problem Relation Age of Onset Emphysema Father Emphysema Mother other (no cardiac hx per pt) Other Patient Allergies ALLERGIES Allergen Reactions Lipitor [Atorvastat* Intolerance myalgias Omnicef [Cefdinir] Diarrhea Zithromax [Azithrom* Current Medications Current Outpatient Medications on File Prior to Visit Medication Sig fluticasone-salmeterol HFA (ADVAIR HFA) 115-21 mcg/actuation inhaler Inhale 2 Puffs as instructed twice daily. Rinse mouth after use. budesonide-formoterol (SYMBICORT) 160-4.5 mcg/actuation inhaler Inhale 2 Puffs as instructed twice daily. metoprolol tartrate, short acting, (LOPRESSOR) 25 mg tablet Take 1 tablet by mouth twice daily. levothyroxine (LEVOXYL) 200 mcg tablet Take 1 tablet by mouth once daily. Take on empty stomach. For Thyroid. lisinopril (ZESTRIL, PRINIVIL) 10 mg tablet Take 1 tablet by mouth once daily. simvastatin (ZOCOR) 80 mg tablet Take 1 tablet by mouth daily at bedtime. pantoprazole DR (PROTONIX) 40 mg tablet Take 1 tablet by mouth twice daily. Take on empty stomach, 1/2 hr before meal. magnesium oxide (MAG-OX) 400 mg (241.3 mg magnesium) tablet Take 1 tablet by mouth once daily. fluticasone (FLONASE) 50 mcg/actuation nasal spray USE 2 SPRAYS IN EACH NOSTRIL ONCE DAILY. RINSE MOUTH AFTER USE. aspirin 325 mg tablet Take 1 tablet by mouth once daily. senna-docusate (STOOL SOFTENER-LAXATIVE) 8.6-50 mg per tablet Take 1 tablet by mouth once daily. acetaminophen (TYLENOL) 325 mg tablet Take 2 tablets by mouth every 4 hours as needed. THERAPEUTIC MULTIVITAMIN TAB one tab daily No current facility-administered medications on file prior to visit. Social History Social History Tobacco Use Smoking status: Former Packs/day: 0.50 Years: 27.00 Pack years: 13.50 Types: Cigarettes Quit date: 1981 Years since quittin.7 Smokeless tobacco: Never Tobacco comments: occasional former pipe smoker Vaping Use Vaping Use: Never used Substance Use Topics Alcohol use: Yes Alcohol/week: 5.0 standard drinks Types: 2 Cans of Beer (12oz) per week Comment: 2-3 cans of beer per week Drug use: No EXAM: BP 118/72 Pulse 93 Resp 16 Wt 84.9 kg (187 lb 3.2 oz) SpO2 97% BMI 32.13 kg/m General Appearance: Well appearing, alert, in no acute distress, well-hydrated, well nourished.. Extremities: left elbow, good ROM, no swelling. Health Maintenance List SHINGRIX VACCINE(1 of 2) Never done DTAP,TDAP,TD(3 - Td or Tdap) due on 05/29/2017 ADVANCE DIRECTIVE DISCUSSION Never done DEPRESSION SCREENING due on 09/26/2021 INFLUENZA(1) due on 10/13/2021 HEPATITIS C SCREENING due on 12/31/2021 LDL CHOLESTEROL due on 06/28/2022 ANNUAL PCP TEAM CHRONIC DISEASE VISIT due on 09/22/2022 BP CONTROLLED (<130/80) due on 09/22/2022 DIABETES SCREEN due on 06/28/2024 SPIROMETRY Completed COVID-19 VACCINE Completed PNEUMOCOCCAL: 65+ Completed Data reviewed None ASSESSMENT/PLAN: 1. Lateral epicondylitis of left elbow - ICD9: 726.32, ICD10: M77.12 Take Mobic 15 mg daily for 2 weeks Follow up if no improvement Follow up as scheduled in Nov or sooner if needed. I agree with the Chief Complaint, ROS, and Past Histories independently gathered by the clinical family readiness support assistant and the remaining scribed note accurately describes my personal service to the patient. Medical Decision Making: Problems: Low: Acute, uncomplicated illness or injury Risk: Moderate: Drug management Medical Decision Making Level: 3 - Low Eloisa Espinal MD The documentation for this note was completed by Elza Wall Ma acting as scribe for Eloisa Espinal MD. November 02, 2021 1:51 PM. Elza Wall Ma documented in this encounterOhiohealth Van W[facility]09-21-2022 Miscellaneous Notes* Telephone Encounter - Marely Begum Ma - 11/02/2021 10:04 AM EDT Pt agreeable to appt scheduled. Marely Begum Ma * Telephone Encounter - Marely Begum Ma - 11/02/2021 8:51 AM EDT Offered appt at 2:00 pm with PCP. Sent message, scheduled appt. Wait for pt to update. Will call ptif he does not respond. Marely Begum Ma * Telephone Encounter - Eloisa Espinal MD - 11/01/2021 6:03 PM EDT He should be seen to evaluate what is going on now. Eloisa Espinal MD * Telephone Encounter - Marely Begum Ma - 10/31/2021 4:53 PM EDT Pt seen for this on 09/22/21 at hospital f/u visit. Please advise next course. Marely Begum Ma documented in this encounterOhiohealth Van W[facility]08-10-2022 History of Present illness Narrative* Mari Desouza RN - 09/21/2021 1:55 PM EDT TRANSITION CARE MANAGEMENT (TCM) INITIAL CONTACT Accounting Assistant Outreach Provider Action/FYI: 7 day TCM According to Discharge Summary no new medications were started. No medications were held or discontinued-verified with patient to be correct. Initial contact with patient post discharge, spoke to spouse, she will have pt call back. Spoke with patient 09/21/21. Patient identified by name and . Patient reports his only problem is that he has been experiencing tingling in his left arm, even prior to hospital visit. Tingling occurs from left shoulder to left hand. Patient reports he has an appt with Cardiology on 12/07/21. TRANSITION CARE MANAGEMENT INITIAL OUTREACH DOCUMENTATION: No flowsheet data found. SUMMARY: -Pt discharged from [facility] on 09/19/21. -Admitted for: Angina Below copied from [facility] Meditech: Chief Complaint: Chest Pain Detail of Chief Complaint: Chest pain x2 days Informant: patient Narrative Narrative: Patient presents to the emergency department with retrosternal chest pain that started 2 days ago. Pain has been intermittent. Prior to the chest pain he noticed intermittent numbness and tingling inthe left arm. Patient states the numbness and tingling lasts about a minute or so. Patient states that chest pain is brought on by activity and exertion and gets better with rest. Patient took nitroglycerin yesterday seem to help his pain. Patient has a history of coronary artery disease with three-vessel CABG about 4 years ago. Patient denies recent travel or surgery. Patient did take a full dose aspirin this morning. Hospital Course: Patient is a 72-year-old gentleman with past medical history segment for coronary artery disease with previous CABG who presented with a 3-day history of chest pain 1. Chest pain - Patient has been admitted to monitored bed AR ruled out with serial cardiac enzymes. Patient to undergo subsequent evaluation with nuclear stress test on 09/19/2021 - 09/19/2021: Scheduled to undergo nuclear stress test this a.m. - Patient nuclear stress test was negative for stress-induced ischemia discharged home on his medication and instructed to follow-up with primary care physician for subsequent care 3. Coronary artery disease - With previous CABG 4. Hypertension - Blood pressure controlled, home medications continued with dose adjustment as needed 5. Dyslipidemia -Patient is on statin therapy, continued at home dose 6. GERD with Escobedo's esophagus - Patient is on PPI 7. Hypothyroidism - Patient is on levothyroxine home dose continued 8. COPD/emphysema: - Currently not in exacerbation aerosol treatments as needed 9. DVT prophylaxis - Enoxaparin Do you have a hospital follow up appointment with your PCP? Appointment on 09/22/[address] Espinal. Yes. Remind patient of appointment date, time, and location. If not within 14 calendar days of discharge - please reschedule accordingly. MEDICATIONS: Many patients have questions or concerns about their medications once they are home. Were you prescribed any new medications? No Were you told to hold any medications? No Were any of your medications discontinued? No Do you have any questions about getting or taking your medications? No Your discharge instructions/After visit Summary (AVS) are important in guiding you through the recovery process. Is there anything I might help you understand? No Do you have all the necessary equipment and supplies at home? Yes Medical records from recent hospitalization: Placed for provider to review documented in this encounterOhio[facility] History of Present illness Narrative* Bethanie Cline, PT - 08/18/2021 3:13 PM EDT Episode Visit Count: 10 Therapist That Will Oversee The Plan Of Care: Bethanie Cline PT Start of Care Date: 07/14/21 Onset Date: 12/13/20 Plan of Care Certification Date: 07/14/21 Next Certification Due Date: 08/25/21 Patient Identified by Name and Date of : Yes REHABILITATION AND SPORTS THERAPY PHYSICAL THERAPY DISCONTINUANCE OF CARE PLAN OF CARE UPDATE: Assessment: Jayden Craig is discontinued from Physical Therapy services due to maximal benefit. and pt able to proceed with home program and should continue to progress to goal achievement . Patient was seen for 10 visits from Start of Care Date: 07/14/21 to 08/18/2021 and treatment included: Therapeutic exercise, Neuromuscular re-education, Manual therapy and Patient/Family/Caregiver Education. Goals for Episode of Care: created on 07/14/21 through 08/25/21 updated 08/18/21 Independent in home exercises./ achieved Patient will decrease pain rating by 2 points to meet minimal clinical important difference for numeric pain rating scale./ achieved Stand / Walk longer 5-10 min. without pain/symptoms. increasing/ partially achieved Patient will be able to tolerate functional activities without increased symptoms./ partially achieved Patient will increase strength of core and postural mm to 5/5 to allow for improve gait mechanics/gait pattern and improve ability to complete ADLs./ partially achieved Patient Goals: stand longer , stand up straighter./ partially achieved SUBJECTIVE: Patient Reason for Visit: Pt notes that he feels he is doing better. Notes that he now has a machine that he pedals with legs and arms, similar to scifit which he feels is helpful. Notes that overall he feels his back is better and is confident with home program. Pain: Pain Pain Level: 4 Pain Location: Low Back/Lumbar Spine - Right;Low Back/Lumbar Spine - Left Description: Sore Frequency: Intermittent Post Treatment Pain Post Treatment Pain Level: Better Post Treatment Pain Location: Low Back/Lumbar Spine - Right;Low Back/Lumbar Spine - Left Post Treatment Pain Description: Stiffness Post Treatment Symptoms: decrease pain PROMIS Scales Higher is Better 06/30/2021 07/12/2021 08/17/2021 Phys Func - Score - 37 (moderate dysfunction) 38 (moderate dysfunction) Phys Func - Percentile - 10 % 12 % Social Roles - Score - 49 (within normal limits) 52 (within normal limits) Social Role - Percentile - 46 % 58 % GH Physical - Score 34.9 (Poor) - - GH Physical - Percentile 7 % - - GH Mental - Score 53.3 (Very Good) - - GH Mental - Percentile 63 % - - Self-Eff Symptom - Score - 36 (Low) 44 (Average) Self-Eff Symptom - Percentile - 8 % 27 % T-scores: mean of general population = 50. 5 points is clinically meaningfully difference Percentiles provide an indication of how the patient's score ranks in relation to the general population. Higher percentile rankings indicate better function/quality of life. 50th percentile is the average of the general population and indicates half of respondents had a worse score. Lower is Better 07/12/2021 08/17/2021 Fatigue - Score 56 (mild) 51 (within normal limits) Fatigue - Percentile 27 % 46 % T-scores: mean of general population = 50. 5 points is clinically meaningfully difference Percentiles provide an indication of how the patient's score ranks in relation to the general population. Higher percentile rankings indicate better function/quality of life. 50th percentile is the average of the general population and indicates half of respondents had a worse score. OBJECTIVE MEASURES WITH LEVEL OF FUNCTION: Posture / Alignment Posture: Decreased lumbar lordosis;Poor (flexed posture) Effects of Posture Correction: (able to stand more upright at times) Spine Observations R Lumbar Spine Palpation Tenderness: Paraspinals L Lumbar Spine Palpation Tenderness: Paraspinals Lumbar Spine AROM Lumbar Flexion: Normal Lumbar Extension: Major limitation Lumbar R Side-Bend: Minimal limitation Lumbar L Side-Bend: Minimal limitation LE Strength Trunk Strength: 3+/5 R Hip Flexion (L2): 5/5 R Knee Extension (L3): 5/5 R Knee Flexion: 5/5 L Hip Flexion (L2): 5/5 L Knee Extension (L3): 5/5 L Knee Flexion: 5/5 Functional Strength Functional Strength: Pt able to tolerate more activities with decreased back pain, improved endurance Gait Gait: Independent Gait Observation: no deviation other than flexed posture TREATMENT: Therapeutic Exercise: 2: hoist shoulder extension 2+3 plates to thigh while seated 2x20 3: TA with marches 2x15 seated 4: hoist 2 plates and 2 mini and bar scapular retraction 3x15 5: seated purple rep band trunk extension 2x15 6: dynamic stabilization. wth perturbation front and sides purple rep band 3x15 7: scifit stepper seat 13 6 min. (Subjective taken and disscussed progress) Skilled Intervention: Reviewed and educated patient on additions/changes for home exercise program . Skilled judgment was provided in selection of appropriate interventions. Correct performance of therapeutic exercises was facilitated with verbal and visual cuing. Manual Therapy: Manual Traction: lumbar belt traction with HOB elevated, feet on stool and double towels on thighs,Pull to tolerance mild for 10 min. SX monitored throughout Skilled Intervention: Manual skills to improve joint mobility, ROM, and decrease pain. Utilized anatomy knowledge of the therapist, and assessment of patient's response to intervention. Billing Therapeutic Exercise Treatment Minutes: 30 Manual TherapyTreatment Minutes: 10 Total Treatment Time Minutes (timed/untimed): 40 Bethanie Cline PT documented in this encounterOhio[facility]06-29-2022 History of Present illness Narrative* Rama Smiley, PT - 08/10/2021 5:11 PM EDT Episode Visit Count: 9 Therapist That Will Oversee The Plan Of Care: Bethanie Cline PT Start of Care Date: 07/14/21 Onset Date: 12/13/20 Plan of Care Certification Date: 07/14/21 Next Certification Due Date: 08/25/21 Patient Identified by Name and Date of : Yes REHABILITATION AND SPORTS THERAPY PHYSICAL THERAPY TREATMENT NOTE ASSESSMENT: Jayden Craig tolerated the session with decreased symptoms. He demonstrated improvements in tolerance for strengthening and decrease back pain at end of treatment. . The patient will continue to benefit from ongoing skilled physical therapy for reassessment by supervising therapist. PLAN FOR NEXT VISIT: POC update SUBJECTIVE: Patient Reason for Visit: Patient reports relief of back pain into the next day following therapy. He reports walking around [place] today prior to treatment and back is sore. Pain: Pain Pain Level: 5 Pain Location: Low Back/Lumbar Spine - Right;Low Back/Lumbar Spine - Left Description: Sore Frequency: Intermittent Post Treatment Pain Post Treatment Pain Level: 2 Post Treatment Pain Location: Low Back/Lumbar Spine - Left;Low Back/Lumbar Spine - Right Post Treatment Pain Description: Stiffness Post Treatment Symptoms: decrease pain OBJECTIVE MEASURES WITH LEVEL OF FUNCTION: Improved upright seated posture in seated position. TREATMENT: Therapeutic Exercise: 2: hoist shoulder extension 2+3 plates to thigh while seated 2x15 3: TA with marches 2x15 seated 4: hoist 2 plates and 2 mini and bar scapular retraction 3x15 5: seated purple rep band trunk extension 2x15 6: dynamic stabilization. wth perturbation front and sides purple rep band 3x15 7: scifit stepper seat 13 6 min. (Subjective taken and disscussed progress) Skilled Intervention: Patient was educated in proper exercise technique and purpose for exercises. Skilled judgment was provided in selection of appropriate interventions. Correct performance of therapeutic exercises was facilitated with verbal cuing. Manual Therapy: Manual Traction: lumbar belt traction with HOB elevated, feet on stool and double towels on thighs,Pull to tolerance mild for 10 min. SX monitored throughout Skilled Intervention: Manual skills to improve joint mobility, ROM, and decrease pain. Utilized anatomy knowledge of the therapist, and assessment of patient's response to intervention. Billing Therapeutic Exercise Treatment Minutes: 28 Manual TherapyTreatment Minutes: 10 Total Treatment Time Minutes (timed/untimed): 38 ALEXA Bassett PT documented in this encounterOhiohealth [facility]06-24-2022 History of Present illness Narrative* Bethanie Blackrison, PT - 08/05/2021 9:56 AM EDT Episode Visit Count: 7 Therapist That Will Oversee The Plan Of Care: Bethanie Cline PT Start of Care Date: 07/14/21 Onset Date: 12/13/20 Plan of Care Certification Date: 07/14/21 Next Certification Due Date: 08/25/21 Patient Identified by Name and Date of : Yes REHABILITATION AND SPORTS THERAPY PHYSICAL THERAPY TREATMENT NOTE ASSESSMENT: Jayden Craig tolerated the session with no issues. He demonstrated improvements in back pain after manual therapy. Able to increase weight with hoist exs. . The patient will continue tobenefit from ongoing skilled physical therapy to progress toward set goals. PLAN FOR NEXT VISIT: continue with belt traction, seated core exs as tolerated SUBJECTIVE: Patient Reason for Visit: Pt reports that he was on the tractor for 1 1/2 hours yesterday and did gardening so his back is not feeling to good today Pain: Pain Pain Level: 6 Pain Location: Low Back/Lumbar Spine - Right;Low Back/Lumbar Spine - Left Description: Aching Frequency: Intermittent Post Treatment Pain Post Treatment Pain Level: 3 Post Treatment Pain Location: Low Back/Lumbar Spine - Left;Low Back/Lumbar Spine - Right Post Treatment Pain Description: Aching Post Treatment Symptoms: better, more upright posture OBJECTIVE MEASURES WITH LEVEL OF FUNCTION: more upright posture at end of session TREATMENT: Therapeutic Exercise: 2: hoist shoulder extension 2+3 plates to thigh while seated 2x15 3: TA with marches 2x15 seated 4: hoist 2 plates and bar scapular retraction 2x15 5: seated purple rep band trunk extension 2x15 6: dynamic stabilization. wth perturbation front and sides purple rep band 2x10 7: scifit stepper seat 13 6 min. last minute legs only. Discussed sx and response to treatment Skilled Intervention: Patient was educated in proper exercise technique and purpose for exercises. Skilled judgment was provided in selection of appropriate interventions. Correct performance of therapeutic exercises was facilitated with verbal and visual cuing. Manual Therapy: Manual Traction: lumbar belt traction with HOB elevated, feet on stool and double towels on thighs,Pull to tolerance mild for 10 min. SX monitored throughout Skilled Intervention: Manual skills to improve joint mobility, ROM, and decrease pain. Utilized anatomy knowledge of the therapist, and assessment of patient's response to intervention. Billing Therapeutic Exercise Treatment Minutes: 30 Manual TherapyTreatment Minutes: 10 Total Treatment Time Minutes (timed/untimed): 40 Bethanie Cline PT documented in this encounterOhiohealth [facility]06-21-2022 History of Present illness Narrative* Bethanie Cline PT - 08/02/2021 3:19 PM EDT Episode Visit Count: 6 Therapist That Will Oversee The Plan Of Care: Bethanie Cline PT Start of Care Date: 07/14/21 Onset Date: 12/13/20 Plan of Care Certification Date: 07/14/21 Next Certification Due Date: 08/25/21 Patient Identified by Name and Date of : Yes REHABILITATION AND SPORTS THERAPY PHYSICAL THERAPY TREATMENT NOTE ASSESSMENT: Jayden Craig tolerated the session with decreased endurance. He demonstrated improvements in pain with manual traction . The patient will continue to benefit from ongoing skilled physical therapy to progress toward set goals. PLAN FOR NEXT VISIT: continue with core strengthening as tolerated and manual belt traction SUBJECTIVE: Patient Reason for Visit: Pt notes that he did housework and outdoor garden planting sohis back is hurting. Notes that he feels that the therapy is helping him. Pain: Pain Pain Level: 6 Pain Location: Low Back/Lumbar Spine - Left;Low Back/Lumbar Spine - Right Description: Aching Frequency: Intermittent Post Treatment Pain Post Treatment Pain Location: Low Back/Lumbar Spine - Right;Low Back/Lumbar Spine - Left Post Treatment Pain Description: Aching OBJECTIVE MEASURES WITH LEVEL OF FUNCTION: Pt still with forward flexed posture with standing TREATMENT: Therapeutic Exercise: 2: hoist shoulder extension 2 plates to thigh while seated 2x15 3: TA with marches 2x15 seated 4: hoist 2 plates and bar scapular retraction 2x15 6: dynamic stabilization. wth perturbation front and sides purple rep band 2x10 7: scifit stepper seat 13 6 min. last minute legs only. Discussed sx and response to treatment Skilled Intervention: Patient was educated in proper exercise technique and purpose for exercises. Skilled judgment was provided in selection of appropriate interventions. Correct performance of therapeutic exercises was facilitated with verbal and visual cuing. Manual Therapy: Manual Traction: lumbar belt traction with HOB elevated, feet on stool and double towels on thighs,Pull to tolerance mild for 10 min. SX monitored throughout Skilled Intervention: Manual skills to improve joint mobility, ROM, and decrease pain. Utilized anatomy knowledge of the therapist, and assessment of patient's response to intervention. Billing Therapeutic Exercise Treatment Minutes: 20 Manual TherapyTreatment Minutes: 10 Total Treatment Time Minutes (timed/untimed): 30 Bethanie Cline PT documented in this encounterOhiohealth [facility]06-16-[facility]22 History of Present illness Narrative* Bethanie Cline PT - 07/28/2021 11:51 AM EDT Episode Visit Count: 5 Therapist That Will Oversee The Plan Of Care: Bethanie Cline PT Start of Care Date: 07/14/21 Onset Date: 12/13/20 Plan of Care Certification Date: 07/14/21 Next Certification Due Date: 08/25/21 Patient Identified by Name and Date of : Yes REHABILITATION AND SPORTS THERAPY PHYSICAL THERAPY TREATMENT NOTE ASSESSMENT: Jayden Craig tolerated the session with no issues. He demonstrated difficulty with upright standing and sitting posture throughout session but improved with cues . The patient will continue to benefit from ongoing skilled physical therapy to progress toward set goals. PLAN FOR NEXT VISIT: Continue to progress exs SUBJECTIVE: Patient Reason for Visit: Pt notes that he felt good after last treatment. Not too muchpain today. Pain: Pain Pain Level: 4 Pain Location: Low Back/Lumbar Spine - Right;Low Back/Lumbar Spine - Left Description: Aching Frequency: Intermittent Post Treatment Pain Post Treatment Pain Level: Better Post Treatment Pain Location: Low Back/Lumbar Spine - Right;Low Back/Lumbar Spine - Left Post Treatment Pain Description: Aching OBJECTIVE MEASURES WITH LEVEL OF FUNCTION: Less SOB with ambulation and exercise in dept. TREATMENT: Therapeutic Exercise: 1: purple rep band seated flexion with upright posture 2x15 2: hoist shoulder extension 2 plates to thigh while seated 2x15 3: TA with marches 2x15 seated 4: hoist 2 plates and bar scapular retraction 2x15 5: seated purple rep band trunk extension 2x15 6: dynamic stabilization. wth perturbation front and sides purple rep band 2x10 7: scifit stepper seat 13 6 min. last minute legs only. Discussed sx and response to treatment Skilled Intervention: Patient was educated in proper exercise technique and purpose for exercises. Skilled judgment was provided in selection of appropriate interventions. Correct performance of therapeutic exercises was facilitated with verbal and visual cuing. Manual Therapy: Manual Traction: lumbar belt traction with HOB elevated, feet on stool and double towels on thighs,Pull to tolerance mild for 10 min. SX monitored throughout Skilled Intervention: Manual skills to improve joint mobility, ROM, and decrease pain. Utilized anatomy knowledge of the therapist, and assessment of patient's response to intervention. Billing Therapeutic Exercise Treatment Minutes: 30 Manual TherapyTreatment Minutes: 10 Total Treatment Time Minutes (timed/untimed): 40 Bethanie Cline PT documented in this encounterOhiohealth [facility]06-15-2022 History of Present illness Narrative* Bethanie Cline PT - 07/27/2021 8:12 AM EDT Episode Visit Count: 4 Therapist That Will Oversee The Plan Of Care: Bethanie Cline PT Start of Care Date: 07/14/21 Onset Date: 12/13/20 Plan of Care Certification Date: 07/14/21 Next Certification Due Date: 08/25/21 Patient Identified by Name and Date of : Yes REHABILITATION AND SPORTS THERAPY PHYSICAL THERAPY TREATMENT NOTE ASSESSMENT: Jayden Craig tolerated the session with no issues. He demonstrated improvements in pain with manual traction and more upright posture . The patient will continue to benefit from ongoingskilled physical therapy to progress toward set goals. PLAN FOR NEXT VISIT: progress to hoist scaular retraction and shoulder extension , possible trunk extension SUBJECTIVE: Patient Reason for Visit: Pt notes that he is feeling better today. Notes that he was picking strawberries yesterday which caused alot of back pain. Notes relief from traction for awhile after last session Pain: Pain Pain Level: 5 Description: Aching Frequency: Intermittent Post Treatment Pain Post Treatment Pain Level: 3 Post Treatment Pain Location: Low Back/Lumbar Spine - Right;Low Back/Lumbar Spine - Left Post Treatment Pain Description: Aching OBJECTIVE MEASURES WITH LEVEL OF FUNCTION: Brief full upright standing posture after traction TREATMENT: Therapeutic Exercise: 1: blue rep band seated flexion with upright posture 2x15 2: seated purple rep band shoulder extension to thigh while seated 2x15 3: TA with marches 2x15 seated 4: seated blue rep band scapular retraction 1x20 5: seated blue rep band trunk extension 1x20 6: dynamic stabilization. wth perturbation front and sides purple rep band 2x10 7: scifit stepper seat 13 5 min. last minute legs only. Discussed sx and response to treatment Skilled Intervention: Patient was educated in proper exercise technique and purpose for exercises. Skilled judgment was provided in selection of appropriate interventions. Correct performance of therapeutic exercises was facilitated with verbal and visual cuing. Manual Therapy: Manual Traction: lumbar belt traction with HOB elevated, feet on stool and pillow on thighs, Pull to tolerance mild for 10 min. SX monitored throughout Skilled Intervention: Manual skills to improve joint mobility, ROM, and decrease pain. Utilized anatomy knowledge of the therapist, and assessment of patient's response to intervention. Billing Therapeutic Exercise Treatment Minutes: 30 Manual TherapyTreatment Minutes: 10 Total Treatment Time Minutes (timed/untimed): 40 Bethanie Cline PT documented in this encounterOhio[facility]06-09-2022 History of Present illness Narrative* Bethanie Cline PT - 07/21/2021 6:13 PM EDT Episode Visit Count: 3 Therapist That Will Oversee The Plan Of Care: Bethanie Cline PT Start of Care Date: 07/14/21 Onset Date: 12/13/20 Plan of Care Certification Date: 07/14/21 Next Certification Due Date: 08/25/21 Patient Identified by Name and Date of : Yes REHABILITATION AND SPORTS THERAPY PHYSICAL THERAPY TREATMENT NOTE ASSESSMENT: Jayden Craig tolerated the session with no issues. He demonstrated improvements in pain and upright posture after manual belt traction . The patient will continue to benefit from ongoing skilled physical therapy to progress toward set goals. PLAN FOR NEXT VISIT: continue with manual belt traction if helpful SUBJECTIVE: Patient Reason for Visit: Pt notes that he mowed lawn, walked on the treadmill for 7 min and did all of exs. yesterday so today he is hurting. notes that he did well l with exs though Pain: Pain Pain Level: 7 Pain Location: Low Back/Lumbar Spine - Right;Low Back/Lumbar Spine - Left Description: Aching;Numbness Frequency: Intermittent Post Treatment Pain Post Treatment Pain Level: 3 Post Treatment Pain Location: Low Back/Lumbar Spine - Left;Low Back/Lumbar Spine - Right Post Treatment Pain Description: Aching OBJECTIVE MEASURES WITH LEVEL OF FUNCTION: very poor forward flexed posture at start of session TREATMENT: Therapeutic Exercise: 1: blue rep band seated flexion with upright posture 2x15 2: seated purple rep band shoulder extension to thigh while seated 2x15 3: TA with marches 2x15 seated 4: seated blue rep band scapular retraction 1x20 5: seated blue rep band trunk extension 1x20 6: dynamic stabilization. wth perturbation front and sides purple rep band 2x10 Skilled Intervention: Patient was educated in proper exercise technique and purpose for exercises. Skilled judgment was provided in selection of appropriate interventions. Correct performance of therapeutic exercises was facilitated with verbal and visual cuing. Manual Therapy: Manual Traction: lumbar belt traction with HOB elevated, feet on stool and pillow on thighs, Pull to tolerance mild for 8 min. SX monitored throughout Skilled Intervention: Manual skills to improve joint mobility, ROM, and decrease pain. Utilized anatomy knowledge of the therapist, and assessment of patient's response to intervention. Home Exercise Program Assigned: 1: no change in ex, vended purple band Billing Therapeutic Exercise Treatment Minutes: 30 Manual TherapyTreatment Minutes: 10 Total Treatment Time Minutes (timed/untimed): 40 Bethanie Cline PT documented in this encounterOhiohealth [facility]06-07-[facility]22 History of Present illness Narrative* Bethanie Cline PT - 07/19/2021 7:29 AM EDT Episode Visit Count: 2 Therapist That Will Oversee The Plan Of Care: Bethanie Cline PT Start of Care Date: 07/14/21 Onset Date: 12/13/20 Plan of Care Certification Date: 07/14/21 Next Certification Due Date: 08/25/21 Patient Identified by Name and Date of : Yes REHABILITATION AND SPORTS THERAPY PHYSICAL THERAPY TREATMENT NOTE ASSESSMENT: Jayden Craig tolerated the session with no issues. He demonstrated improvements in upright standing posture at end of session . The patient will continue to benefit from ongoing skilledphysical therapy to progress toward set goals. PLAN FOR NEXT VISIT: trial of manual traction . add paloff seated. SUBJECTIVE: Patient Reason for Visit: Pt notes that he planted strawberries, and worked in the garden. . He was bending over alot, It is painful in his back Pain: Pain Pain Level: 7 Pain Location: Low Back/Lumbar Spine - Left;Low Back/Lumbar Spine - Right Description: Aching;Numbness Frequency: Intermittent Post Treatment Pain Post Treatment Pain Level: Better Post Treatment Symptoms: more upright posture OBJECTIVE MEASURES WITH LEVEL OF FUNCTION: More upright posture at end of session. TREATMENT: Therapeutic Exercise: 1: blue rep band seated flexion with upright posture 2: TA with arm lifts 1x10 seated 1x10 3: TA with marches 2x10 seated 4: seated blue rep band scapular retraction 1x20 5: seated blue rep band trunk extension 1x20 6: dynamic stabilization. Skilled Intervention: Patient was educated in proper exercise technique and purpose for exercises. Reviewed and educated patient on additions/changes for home exercise program . Skilled judgment was provided in selection of appropriate interventions. Correct performance of therapeutic exercises was facilitated with verbal and visual cuing. Patient education as noted. Self-Assisted Management: 1: discussed use of towel roll for lumbar are with sitting fo rmore upright postsure Skilled Intervention: Skilled judgment in the selection of proper modification for activity of daily living/home management based on clinical presentation, deficits, and needs. Home Exercise Program Assigned: 1: add blue rep band trunk flexion . Towel roll for sitting Billing Therapeutic Exercise Treatment Minutes: 35 Self-Care/Home Management Treatment Minutes: 5 Total Treatment Time Minutes (timed/untimed): 40 Bethanie Cline PT documented in this encounterOhiohealth [facility]06-06-[facility]22 Miscellaneous Notes* Telephone Encounter - Marely Begum Ma - 07/18/2021 4:53 PM EDT , Aury answered asked to take a message. Notified her that the requested inhaler has been sent into the pharmacy. She verbalized, good and that she will let him know. Marely Begum Ma * Telephone Encounter - Eloisa Espinal MD - 07/18/2021 4:51 PM EDT OK for Advair as ordered Eloisa Espinal MD * Telephone Encounter - Katarina Martin RN - 07/15/2021 3:43 PM EDT Patient calls and states that insurance will not cover Symbicort. Patient states that he called andtalked to insurance and they will cover Advair and breo ellipta. Patient asking if provider can send one of those prescriptions to [facility]? Please review and advise, Katarina Martin RN documented in this encounterOhiohealth Van W[facility]05-25-2022 History of Present illness Narrative* Eloisa Espinal MD - 07/06/2021 1:20 PM EDT Chief Complaint Patient presents with: F/U 3 Month HPI Jayden Craig is a 80 year old male who presents here today for 3 month follow up. Pt would like to get his COVID Booster while in office today. No bowel, Gi, or urinary issues. Does use stool softeners daily to keep bowels regular. Has seen Gastro Dr. Oswald in past for his Escobedo's Esophagus, EGD done June 2020. Doing well with Protonix 40 mgtwice daily. He does have hiatal hernia which he has seen Dr. Lynn for in the past. He does have urinary frequency during the evening maybe every hour to hour and half, gets up 1-2 x per night to urina te. No trouble with urinating, no weakened stream, no trouble starting. The diaphragmatic hernia isgetting bigger, saw Thoracic Surgeon Dr. Boothe. Considering surgery in 6 months. CAD/Lipid: Current regimen of Zocor 80 mg daily. Tries to watch diet and exercises a few days per week. Taking 81 mg Aspirin daily. Follows with Cardio. Dr. Zayas yearly. Thyroid: Taking Levoxyl 200 mg daily, no missed dosages. Asthma & SOB: Chronic; typically with exertion. Not usingTrelegy Ellipta inhaler due to cost. He is back on Budesonide 150 mcg once or twice a day, mostly just in the AM. He feels this is helping. 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 HTN: Does check BP at home but has not in a long time. Denies any chest pains, dizziness, or SOB. He gets SOB all the time with exertion. Follows with Dr. Zayas once a year. Current regimen of Lopressor 25 mg BID and Lisinopril 10 mg daily. Denies any side effects from the medication. Pain: Chronic back pain, followed with Pain Management Dr. Maldonado. Had injections in the back. No longer follows with Dr. Maldonado. Has done PT for the back at [facility]. He saw Dr. Loaiza, NeuroSpine with [place] who told him his xray showed arthritis but was not much he could do for the arthritic pain. He uses Advil prn for severe pain. Dr. Loaiza suggested he see a Dr. Molina for backinjections however pt has done that before with little help. He has used ice in the past which helped temporarily. He has not tried heat. He states that he has been having pain for a long time, pain worsened, more frequent times over the past 6 months. He rated pain 7/10 today, walking back to office caused irritation and pain. He states his pain is just constant soreness, worse with certain activity. He is willing to do PT again as he felt that helped in the past. Past medical history, appointments, medications, allergies reviewed. Previous Medical History PAST MEDICAL HISTORY Diagnosis Date Escobedo's esophagus 1989 Hiatal hernia 1989 History of coronary artery bypass graft 07/24/2018 VASQUES in situ mammary end to side mid LAD, Vein graft ascending aorta end to side RCA, Vein graft ascending aorta end to side obtuse marginal 1 Peptic ulcer, unspecified site, unspecified as acute or chronic, without mention of hemorrhage, perforation, or obstruction 2004 Unspecified hypothyroidism 1989 Previous Surgical History PAST SURGICAL HISTORY Procedure Laterality Date APPENDECTOMY COLONOSCOPY FLX DX W/COLLJ SPEC WHEN PFRMD 06/28/2004 Colonoscopy COLONOSCOPY FLX DX W/COLLJ SPEC WHEN PFRMD 08/06/2015 Colonoscopy CORONARY ARTERY BYPASS GRAFT HX 07/24/2018 VASQUES in situ mammary end to side mid LAD, Vein graft ascending aorta end to side RCA, Vein graft ascending aorta end to side obtuse marginal 1. EGD N/A 06/29/2020 Dr. Keating EGD TRANSORAL BIOPSY SINGLE/MULTIPLE 08/30/2009 EGD TRANSORAL BIOPSY SINGLE/MULTIPLE 08/23/2011 repeat in 2 years ESOPHAGOGASTRODUODENOSCOPY TRANSORAL DIAGNOSTIC 10/06/1998 EGD ESOPHAGOGASTRODUODENOSCOPY TRANSORAL DIAGNOSTIC 01/29/2000 EGD ESOPHAGOGASTRODUODENOSCOPY TRANSORAL DIAGNOSTIC 08/04/2003 EGD ESOPHAGOGASTRODUODENOSCOPY TRANSORAL DIAGNOSTIC 08/29/2007 EGD ESOPHAGOGASTRODUODENOSCOPY TRANSORAL DIAGNOSTIC 08/28/2013 EGD ESOPHAGOGASTRODUODENOSCOPY TRANSORAL DIAGNOSTIC 10/08/2017 EGD HEART SURGERY HX LAPAROSCOPIC CHOLECYSTECTOMY 12/15/2018 PAST SURGICAL HISTORY OF N/A 04/25/2017 Back surgery done at [facility], [address] [place] [address] and cleaned up arthritis Family History FAMILY HISTORY Problem Relation Age of Onset Emphysema Father Emphysema Mother other (no cardiac hx per pt) Other Patient Allergies ALLERGIES Allergen Reactions Lipitor [Atorvastat* Intolerance myalgias Omnicef [Cefdinir] Diarrhea Zithromax [Azithrom* Current Medications Current Outpatient Medications on File Prior to Visit Medication Sig metoprolol tartrate, short acting, (LOPRESSOR) 25 mg tablet Take 1 tablet by mouth twice daily. levothyroxine (LEVOXYL) 200 mcg tablet Take 1 tablet by mouth once daily. Take on empty stomach. For Thyroid. lisinopril (ZESTRIL, PRINIVIL) 10 mg tablet Take 1 tablet by mouth once daily. simvastatin (ZOCOR) 80 mg tablet Take 1 tablet by mouth daily at bedtime. pantoprazole DR (PROTONIX) 40 mg tablet Take 1 tablet by mouth twice daily. Take on empty stomach, 1/2 hr before meal. magnesium oxide (MAG-OX) 400 mg (241.3 mg magnesium) tablet Take 1 tablet by mouth once daily. fluticasone (FLONASE) 50 mcg/actuation nasal spray USE 2 SPRAYS IN EACH NOSTRIL ONCE DAILY. RINSE MOUTH AFTER USE. qycaeevvghh-nyanhcqmf-hdiyumdf (TRELEGY ELLIPTA) 100-62.5-25 mcg Inhale 1 Puff as instructed once daily. (Patient not taking: Reported on 06/20/2021 ) aspirin 325 mg tablet Take 1 tablet by mouth once daily. senna-docusate (STOOL SOFTENER-LAXATIVE) 8.6-50 mg per tablet Take 1 tablet by mouth once daily. acetaminophen (TYLENOL) 325 mg tablet Take 2 tablets by mouth every 4 hours as needed. THERAPEUTIC MULTIVITAMIN TAB one tab daily No current facility-administered medications on file prior to visit. Social History Social History Tobacco Use Smoking status: Former Smoker Packs/day: 0.50 Years: 27.00 Pack years: 13.50 Types: Cigarettes Quit date: 1981 Years since quittin.4 Smokeless tobacco: Never Used Tobacco comment: occasional former pipe smoker Vaping Use Vaping Use: Never used Substance Use Topics Alcohol use: Yes Alcohol/week: 5.0 standard drinks Types: 2 Cans of Beer (12oz) per week Comment: 2-3 cans of beer per week Drug use: No EXAM: BP 120/72 Pulse 74 Resp 16 Wt 86.6 kg (191 lb) BMI 32.79 kg/m General Appearance: Well appearing, alert, in no acute distress, well-hydrated, well nourished.. Lungs: Lungs clear to auscultation. No wheezing, rhonchi, rales.. Heart: RRR without murmur, gallop, or rubs. No ectopy. Health Maintenance List BP CONTROLLED (<130/80) Never done SHINGRIX VACCINE(1 of 2) Never done DTAP,TDAP,TD(3 - Td or Tdap) due on 05/29/2017 FECAL OCCULT BLOOD due on 12/26/2018 ADVANCE DIRECTIVE DISCUSSION Never done COVID-19 VACCINE(4 - Booster for Pfizer series) due on 03/25/2021 HEPATITIS C SCREENING due on 12/31/2021 DEPRESSION SCREENING due on 09/26/2021 ANNUAL PCP TEAM CHRONIC DISEASE VISIT due on 03/30/2022 LDL CHOLESTEROL due on 06/28/2022 DIABETES SCREEN due on 06/28/2024 SPIROMETRY Completed INFLUENZA Completed PNEUMOVAX AGE 65 AND OVER WITH 5YR LOOKBACK Completed MENINGOCOCCAL CONJUGATE Aged Out Data reviewed Appointment on 06/28/2021 Component Date Value Protein, Total 06/28/2021 6.6 Albumin 06/28/2021 4.3 Calcium, Total 06/28/2021 9.0 Bilirubin, Total 06/28/2021 0.5 Alkaline Phosphatase 06/28/2021 74 AST 06/28/2021 37 ALT 06/28/2021 23 Glucose 06/28/2021 113 (A) BUN 06/28/2021 11 Creatinine 06/28/2021 1.00 Sodium 06/28/2021 128 (A) Potassium 06/28/2021 4.6 Chloride 06/28/2021 95 (A) CO2 06/28/2021 24 Anion Gap 06/28/2021 9 Estimated Glomerular Heri* 06/28/2021 77 WBC 06/28/2021 5.17 RBC 06/28/2021 3.75 (A) Hemoglobin 06/28/2021 11.2 (A) Hematocrit 06/28/2021 35.6 (A) MCV 06/28/2021 94.9 MCH 06/28/2021 29.9 MCHC 06/28/2021 31.5 RDW-CV 06/28/2021 14.9 Platelet Count 06/28/2021 198 MPV 06/28/2021 11.0 Neut% 06/28/2021 64.2 Abs Neut 06/28/2021 3.32 Lymph% 06/28/2021 12.4 Abs Lymph 06/28/2021 0.64 (A) Story% 06/28/2021 13.9 Abs Story 06/28/2021 0.72 Eosin% 06/28/2021 8.3 Abs Eosin 06/28/2021 0.43 Baso% 06/28/2021 0.8 Abs Baso 06/28/2021 0.04 Immature Gran % 06/28/2021 0.4 Abs Immature Gran 06/28/2021 <0.03 NRBC 06/28/2021 0.0 Absolute nRBC 06/28/2021 <0.01 Diff Type 06/28/2021 Auto Cholesterol, Total 06/28/2021 140 Triglyceride 06/28/2021 57 HDL Cholesterol 06/28/2021 67 Non HDL Cholesterol 06/28/2021 73 Fasting Time 06/28/2021 10 VLDL Cholesterol 06/28/2021 11 TC:HDL Ratio 06/28/2021 2.09 LDL Cholesterol 06/28/2021 62 LDL:HDL Ratio 06/28/2021 0.93 TSH 06/28/2021 0.913 ASSESSMENT/PLAN: 1. Mixed hyperlipidemia - ICD9: 272.2, ICD10: E78.2 (primary diagnosis) - good control - Continue current medication. - Encouraged following a low fat, low cholesterol diet. - Discussed the benefits of regular aerobic exercise and weight loss. 2. Coronary artery disease involving [place] coronary artery of [place] heart without angina pectoris- ICD9: 414.01, ICD10: I25.10 Continue current medications. Continue with Cardio 3. Paroxysmal atrial fibrillation (HCC) - ICD9: 427.31, ICD10: I48.0 Continue with Carido 4. Essential hypertension - ICD9: 401.9, ICD10: I10 - good control - Continue current medication(s) - Recommended regular aerobic exercise. - Recommend home blood pressure monitoring, to bring results in on next visit - Goal of BP <130/80 5. Mild intermittent asthma without complication - ICD9: 493.90, ICD10: J45.20 Mild intermittent Asthma stable - Continue Symbicort inhaler once to twice daily - Avoidance of triggers recommended 6. Acquired hypothyroidism - ICD9: 244.9, ICD10: E03.9 - Instructed patient on importance of taking on an empty stomach either first thing in the morning or at bedtime. Continue current medications. 7. Escobedo's esophagus with low grade dysplasia - ICD9: 530.85, ICD10: K22.710 Controlled Continue current medications. 8. DDD (degenerative disc disease), lumbar - ICD9: 722.52, ICD10: M51.36 Chronic low back pain - PT consult Continue with ice, heat and Advil prn Follow up in 6 months with fasting labs prior. I agree with the Chief Complaint, ROS, and Past Histories independently gathered by the clinical family readiness support assistant and the remaining scribed note accurately describes my personal service to the patient. Medical Decision Making: Problems: Moderate: 2+ stable chronic illnesses Data: Unique test result(s) reviewed: 3+ Risk: Moderate: Drug management Medical Decision Making Level: 4 - Moderate Eloisa Espinal MD The documentation for this note was completed by Elza Wall Ma acting as scribe for Eloisa Espinal MD. July 06, 2021 1:18 PM. Elza Wall Ma documented in this encounterOhiohealth [facility]05-17-2022 Miscellaneous Notes* Telephone Encounter - Marely Begum Ma - 06/28/2021 9:22 AM EDT Updated appt note that pt wants Covid shot while at his visit. Marely Begum Ma documented in this encounterOhiohealth [facility]05-12-2022 Miscellaneous Notes* Telephone Encounter - Eloisa Espinal MD - 06/23/2021 11:19 AM EDT OK to refill as ordered Eloisa Espinal MD * Telephone Encounter - Jen Nunez Pss - 06/23/2021 9:30 AM EDT Pharmacy verified in [facility] Patient has been identified by name and date of : Yes Patient aware RX will be sent to pharmacy. No need to notify patient. Patient phones for refill(s): Pending Prescriptions Disp Refills METOPROLOL TARTRATE 25 MG TABLET 180 tablet 3 Sig: Take 1 tablet by mouth twice daily. ILAN: No LEVOTHYROXINE 200 MCG TABLET 90 tablet 3 Sig: Take 1 tablet by mouth once daily. Take on empty stomach. For Thyroid. ILAN: No Date of last office visit : 03/30/2021 Date of next office visit : 07/06/2021 Last 2 Encounter Wt Readings: Date: Wt: 06/20/2021 86.6 kg (191 lb) 06/04/2021 87.4 kg (192 lb 9.6 oz) Please advise. Jen Nunez Pss documented in this encounterOhiohealth Van [facility]05-10-2022 History of Present illness Narrative* Julián Boothe MD - 06/21/2021 9:10 AM EDT I have read and reviewed the documentation and agree. I wish to add the followingI wish to add the following findings which will be communicated back to the requesting physician. Julián Boothe MD [facility] STAFF PHYSICIAN NOTE OF PERSONAL INVOLVEMENT IN CARE IMPRESSION: Patient is a 80 year old male with an intra-thoracic stomach. He does not have any signs of obstruction. His only sx are mild GERD. Given the risk of volvulus, I have discussed a reduction in gastropexy vs observation. He is amenable to lap reduction and gastropexy. Of note he has significant dysmotility on his manometry PLAN: TCI for a lap reduction and gastropexy in 6 months Echo EGD by me pre-op I have reviewed the documentation obtained and documented by the Physician Roller Embosser and I have personally performed the substantive portion of the visit which includes the medical decision making. Ihave discussed the case and management of the patient's care. STAFF PHYSICIAN: Julián Boothe MD DATE OF SERVICE: June 20, 2021 TIME OF SERVICE: 2PM * Gabriella Martinez PA-C - 06/20/2021 2:00 PM EDT [facility] OUTPATIENT CONSULT NOTE Jayden Craig [id number] Requesting Provider: Omkar Keating MD Thoracic Physician: Julián Boothe MD Chief Complaint: Hiatal Hernia and Escobedo's Esophagus Impression: Jayden Craig is a 80 year old White male former cigarette and pipe smoker (quit 1981,13.5 ppyhx) referred by Omkar Keating MD for an opinion regarding management of hiatal hernia andBarrett's Esophagus. Other past medical history significant for CAD (s/p CABG in 07/2018), gangrenous gallbladder (s/p laparoscopic cholecystectomy in 12/2018), rectus diastasis, and umbilical hernia.Patient goes yearly for EGD with Dr. Keating for surveillance of Escobedo's esophagus and his hiatal hernia has been increasing in size. Patient denies any symptoms. Plan: -Discussion of gastropexy in about 6 months per patient request -Plans discussed in collaboration with and further plans to follow from Dr. Boothe. HPI: Jayden Craig is a 80 year old White male former cigarette and pipe smoker (quit 1981, 13.5 ppyhx) referred by Omkar Keating MD for an opinion regarding management of hiatal hernia and Escobedo's Esophagus. Other past medical history significant for CAD (s/p CABG in 07/2018), gangrenous gallbladder (s/p laparoscopic cholecystectomy in 12/2018), rectus diastasis, and umbilical hernia. Patient has been following for Escobedo's Esophagus with surveillance EGDs for a while with Dr. Keating. Patient has also known about hiatal hernia for a while but it has gotten progressively worse. He goes yearly for EGDs with Dr. Keating. Patient also notes umbilical hernia that bothers me. Patient otherwise denies change in appetite, dysphagia, regurgitation, or abdominal pain. EGD on 05/31/21 reveals Escobedo's mucosa and 8cm hiatal hernia. Denies recent exercise. Presents to our office today for further management of hiatal hernia with escobedo's esophagus. Location: hiatal hernia Quality: constant Timing: known history for a while Associated signs and symptoms: None ECOG Score: 0 Living arrangement: Lives with family/friend Functional status: Independent Unintentional weight loss over last 3 months: No PAST MEDICAL HISTORY: PAST MEDICAL HISTORY Diagnosis Date Escobedo's esophagus 1989 Hiatal hernia 1989 History of coronary artery bypass graft 07/24/2018 VASQUES in situ mammary end to side mid LAD, Vein graft ascending aorta end to side RCA, Vein graft ascending aorta end to side obtuse marginal 1 Peptic ulcer, unspecified site, unspecified as acute or chronic, without mention of hemorrhage, perforation, or obstruction 2004 Unspecified hypothyroidism 1989 PAST SURGICAL HISTORY: PAST SURGICAL HISTORY Procedure Laterality Date APPENDECTOMY COLONOSCOPY FLX DX W/COLLJ SPEC WHEN PFRMD 06/28/2004 Colonoscopy COLONOSCOPY FLX DX W/COLLJ SPEC WHEN PFRMD 08/06/2015 Colonoscopy CORONARY ARTERY BYPASS GRAFT HX 07/24/2018 VASQUES in situ mammary end to side mid LAD, Vein graft ascending aorta end to side RCA, Vein graft ascending aorta end to side obtuse marginal 1. EGD N/A 06/29/2020 Dr. Keating EGD TRANSORAL BIOPSY SINGLE/MULTIPLE 08/30/2009 EGD TRANSORAL BIOPSY SINGLE/MULTIPLE 08/23/2011 repeat in 2 years ESOPHAGOGASTRODUODENOSCOPY TRANSORAL DIAGNOSTIC 10/06/1998 EGD ESOPHAGOGASTRODUODENOSCOPY TRANSORAL DIAGNOSTIC 01/29/2000 EGD ESOPHAGOGASTRODUODENOSCOPY TRANSORAL DIAGNOSTIC 08/04/2003 EGD ESOPHAGOGASTRODUODENOSCOPY TRANSORAL DIAGNOSTIC 08/29/2007 EGD ESOPHAGOGASTRODUODENOSCOPY TRANSORAL DIAGNOSTIC 08/28/2013 EGD ESOPHAGOGASTRODUODENOSCOPY TRANSORAL DIAGNOSTIC 10/08/2017 EGD HEART SURGERY HX LAPAROSCOPIC CHOLECYSTECTOMY 12/15/2018 PAST SURGICAL HISTORY OF N/A 04/25/2017 Back surgery done at [facility], [address] [place] [address] and cleaned up arthritis FAMILY HISTORY: FAMILY HISTORY Problem Relation Age of Onset Emphysema Father Emphysema Mother other (no cardiac hx per pt) Other SOCIAL HISTORY: Social History Tobacco Use Smoking status: Former Smoker Packs/day: 0.50 Years: 27.00 Pack years: 13.50 Types: Cigarettes Quit date: 1981 Years since quittin.3 Smokeless tobacco: Never Used Vaping Use Vaping Use: Never used Substance Use Topics Alcohol use: Yes Alcohol/week: 5.0 standard drinks Types: 2 Cans of Beer (12oz) per week Comment: 2-3 cans of beer per week Drug use: No MEDICATIONS: Prior to Admission Medications: lisinopril (ZESTRIL, PRINIVIL) 10 mg tablet Take 1 tablet by mouth once daily. simvastatin (ZOCOR) 80 mg tablet Take 1 tablet by mouth daily at bedtime. pantoprazole DR (PROTONIX) 40 mg tablet Take 1 tablet by mouth twice daily. Take on empty stomach, 1/2 hr before meal. magnesium oxide (MAG-OX) 400 mg (241.3 mg magnesium) tablet Take 1 tablet by mouth once daily. fluticasone (FLONASE) 50 mcg/actuation nasal spray USE 2 SPRAYS IN EACH NOSTRIL ONCE DAILY. RINSE MOUTH AFTER USE. metoprolol tartrate, short acting, (LOPRESSOR) 25 mg tablet Take 1 tablet by mouth twice daily. levothyroxine (LEVOXYL) 200 mcg tablet Take 1 tablet by mouth once daily. Take on empty stomach. For Thyroid. aspirin 325 mg tablet Take 1 tablet by mouth once daily. senna-docusate (STOOL SOFTENER-LAXATIVE) 8.6-50 mg per tablet Take 1 tablet by mouth once daily. acetaminophen (TYLENOL) 325 mg tablet Take 2 tablets by mouth every 4 hours as needed. THERAPEUTIC MULTIVITAMIN TAB one tab daily ejrdhelffej-rqifnmpgg-ohblabsm (TRELEGY ELLIPTA) 100-62.5-25 mcg Inhale 1 Puff as instructed once daily. ALLERGIES: ALLERGIES Allergen Reactions Lipitor [Atorvastat* Intolerance myalgias Omnicef [Cefdinir] Diarrhea Zithromax [Azithrom* COMPLETE REVIEW OF SYSTEMS Constitutional: Notes some weight loss secondary to lack of exercise. Denies fevers or night sweats. HEENT: Sinusitis. Hearing aids. Negative for frequent or significant headaches Resp: Dyspnea on exertion. Negative for cough, wheezing Cardiovascular: Negative for chest pain, leg swelling or palpitations GI: See HPI : No history of dysuria, frequency, or incontinence Endo: Negative for cold or heat intolerance, polyuria, polydipsia and goiter Heme/Lymph: On Aspirin 325mg. Notes bruises easily. Negative for prolonged bleeding or swollen nodes Neurologic: No history or headaches, syncope, paralysis, seizures or tremors Integumentary: Rash on left leg. Additional systems reviewed: No additional systems reviewed PHYSICAL EXAM BP 144/81 (BP Site: Right Arm, BP Position: Sitting, BP Cuff Size: Large Adult) Pulse 88 Temp 36.2 C (97.2 F) Resp 16 Ht 162.6 cm (5' 4) Wt 86.6 kg (191 lb) SpO2 100% BMI 32.79 kg/m RA Constitutional: No acute distress HEENT: EOM's intact Resp: Clear, respiratory effort normal Cardiovascular: Regular rate & rhythm GI: Soft, Non-tender and Bowel sounds present Integumentary: Warm and Dry Musculoskeletal: No deformities Neurological/Psychiatric: Oriented to time, place & person Additional systems reviewed: No additional systems reviewed DATA: Pathology 05/31/2021: FINAL DIAGNOSIS A. Esophagus, at 34 cm, biopsy: - Escobedo mucosa, negative for dysplasia. B. Esophagus, at 32 cm, biopsy: - Escobedo mucosa, negative for dysplasia. C. Esophagus, at 30 cm, biopsy: - Escobedo mucosa, negative for dysplasia. D. Esophagus, at 28 cm, biopsy: - Escobedo mucosa, negative for dysplasia. E. Esophagus, at 26 cm, biopsy: - Escobedo mucosa, negative for dysplasia. F. Esophagus, at 24 cm, biopsy: - Escobedo mucosa, negative for dysplasia. - Squamous mucosa with no diagnostic abnormalities. Procedures: EGD 05/31/2021 Esophageal mucosal changes classified as Escobedo's stage C10-M10 per [place] criteria. Biopsied. - 8 cm hiatal hernia. - No gross lesions in the stomach. - No gross lesions in the duodenum. Imaging PET/CT: n/a CT chest 06/10/2021: IMPRESSION: 1. Unchanged large hiatus hernia. 2. Stable scattered benign lung nodules. No new consolidations or enlarged lymph nodes in the thorax. CT ( abd, pelvis): 12/18/2018 Dilated stomach and small bowel. The small bowel is dilated down to the distal ileum. . There is distention of the ascending colon and transverse colon. Some of the underlying bowel dilatation may be ileus. Distal small bowel obstruction cannot be excluded. The stomach is dilated with contrast. There is a large sliding-type hiatal hernia with dilatation of the esophagus and reflux of contrast superiorly. The patient is at increased risk for aspiration. Small fluid collections in the gallbladder fossa most likely represent small hematoma versus seroma. Very small biloma cannot be excluded. Findings were called to covering caregiver on pager [phone] at time of dictation. Cardiopulmonary Testing PFT's/Six: Requested Cardiac: Echo 12/21/2018 Technically difficult exam due to body habitus and suboptimal positioning. - Exam indication: Sustained atrial fibrillation - The left ventricle is normal in size. There is mild septal asymmetric left ventricular hypertrophy. Left ventricular systolic function is normal. EF = 60 5% (visual est.) - The right ventricle is normal in size. Right ventricular systolic function is normal. - The left atrial cavity is mildly dilated I have personally reviewed the following images/data: CT scan, Echo, EGD and Pathology Outside Paper Medical Records Review personally performed by: n/a SIGNATURE: Gabriella Martinez PA-C DATE of SERVICE: 06/20/2021 TIME of SERVICE: 1:35 PM documented in this encounterOhiohealth Van Wert Hospital04-29-2022 History of Present illness Narrative* Ginger Chatterjee, RT(R) - 06/10/2021 10:20 AM EDT Radiology Service Progress Note PATIENT NAME: Jayden Craig DATE OF SERVICE: June 10, 2021 TIME: 3:22 PM PATIENT IDENTITY VERIFICATION COMPLETED USING TWO (2) IDENTIFIERS: Name and Date of confirmedby patient verbally. FALL SCREENING: Has the patient had 2 falls in the last year or 1 fall with injury or currently using an Ambulatory Assistive Device (Walker, Cane, Wheelchair, Crutches, etc.)? No PATIENT GENDER DATA: Male PATIENT RELEVANT IMPLANT DATA REVIEWED: Not Applicable RADIOLOGY DEPARTMENT: CT; Exam(s) Completed: Chest PERIPHERAL IV DATA: Not applicable SIGNED BY: RT Linda(R) June 10, 2021 3:22 PM documented in this encounterOhio[facility]-23-[facility] History of Present illness Narrative* Lyudmila Baltazar PA-C - 06/04/2021 12:29 PM EDT This note was created using imoji. Subjective Jayden Craig is a 80 year old male. HPI Patient presents with a chief complaint of feeling like his ears are plugged and cannot hear as well as sinus pressure and congestion for 2 weeks. He denies fever. No cough. No chest pain or shortness of breath. Denies sick contacts. He did have COVID 3 months ago. Review of Systems Constitutional: Negative. HENT: Positive for congestion, ear pain, sinus pressure and sinus pain. Negative for sore throat. Respiratory: Negative. Cardiovascular: Negative. Gastrointestinal: Negative. Genitourinary: Negative. Musculoskeletal: Negative. All other systems reviewed and are negative. PAST MEDICAL HISTORY Diagnosis Date Escobedo's esophagus 1989 Hiatal hernia 1989 History of coronary artery bypass graft 07/24/2018 VASQUES in situ mammary end to side mid LAD, Vein graft ascending aorta end to side RCA, Vein graft ascending aorta end to side obtuse marginal 1 Peptic ulcer, unspecified site, unspecified as acute or chronic, without mention of hemorrhage, perforation, or obstruction 2004 Unspecified hypothyroidism 1989 Current Outpatient Medications Medication Sig Dispense Refill lisinopril (ZESTRIL, PRINIVIL) 10 mg tablet Take 1 tablet by mouth once daily. 90 tablet 3 simvastatin (ZOCOR) 80 mg tablet Take 1 tablet by mouth daily at bedtime. [address] (PROTONIX) 40 mg tablet Take 1 tablet by mouth twice daily. Take on empty stomach, 1/2 hr before meal. 180 tablet 3 magnesium oxide (MAG-OX) 400 mg (241.3 mg magnesium) tablet Take 1 tablet by mouth once daily. 90 tablet 3 fluticasone (FLONASE) 50 mcg/actuation nasal spray USE 2 SPRAYS IN EACH NOSTRIL ONCE DAILY. RINSE MOUTH AFTER USE. 16 mL 11 esfcvymjqsw-evqadgint-pnhzmyri (TRELEGY ELLIPTA) 100-62.5-25 mcg Inhale 1 Puff as instructed once daily. 3 Each 3 metoprolol tartrate, short acting, (LOPRESSOR) 25 mg tablet Take 1 tablet by mouth twice daily. 180tablet 3 levothyroxine (LEVOXYL) 200 mcg tablet Take 1 tablet by mouth once daily. Take on empty stomach. For Thyroid. 90 tablet 3 aspirin 325 mg tablet Take 1 tablet by mouth once daily. senna-docusate (STOOL SOFTENER-LAXATIVE) 8.6-50 mg per tablet Take 1 tablet by mouth once daily. acetaminophen (TYLENOL) 325 mg tablet Take 2 tablets by mouth every 4 hours as needed. 100 tablet 0 THERAPEUTIC MULTIVITAMIN TAB one tab daily 0 amoxicillin-clavulanic acid (AUGMENTIN) 875-125 mg per tablet Take 1 tablet by mouth twice daily for 5 days. 10 tablet 0 cetirizine (ZYRTEC) 10 mg tablet Take 1 tablet by mouth once daily for 14 days. 14 tablet 0 No current facility-administered medications for this visit. PAST SURGICAL HISTORY Procedure Laterality Date APPENDECTOMY COLONOSCOPY FLX DX W/COLLJ SPEC WHEN PFRMD 06/28/2004 Colonoscopy COLONOSCOPY FLX DX W/COLLJ SPEC WHEN PFRMD 08/06/2015 Colonoscopy CORONARY ARTERY BYPASS GRAFT HX 07/24/2018 VASQUES in situ mammary end to side mid LAD, Vein graft ascending aorta end to side RCA, Vein graft ascending aorta end to side obtuse marginal 1. EGD N/A 06/29/2020 Dr. Keating EGD TRANSORAL BIOPSY SINGLE/MULTIPLE 08/30/2009 EGD TRANSORAL BIOPSY SINGLE/MULTIPLE 08/23/2011 repeat in 2 years ESOPHAGOGASTRODUODENOSCOPY TRANSORAL DIAGNOSTIC 10/06/1998 EGD ESOPHAGOGASTRODUODENOSCOPY TRANSORAL DIAGNOSTIC 01/29/2000 EGD ESOPHAGOGASTRODUODENOSCOPY TRANSORAL DIAGNOSTIC 08/04/2003 EGD ESOPHAGOGASTRODUODENOSCOPY TRANSORAL DIAGNOSTIC 08/29/2007 EGD ESOPHAGOGASTRODUODENOSCOPY TRANSORAL DIAGNOSTIC 08/28/2013 EGD ESOPHAGOGASTRODUODENOSCOPY TRANSORAL DIAGNOSTIC 10/08/2017 EGD HEART SURGERY HX LAPAROSCOPIC CHOLECYSTECTOMY 12/15/2018 PAST SURGICAL HISTORY OF N/A 04/25/2017 Back surgery done at [facility], [address] and cleaned up arthritis FAMILY HISTORY Problem Relation Age of Onset Emphysema Father Emphysema Mother other (no cardiac hx per pt) Other Social History Tobacco Use Smoking status: Former Smoker Packs/day: 0.50 Years: 27.00 Pack years: 13.50 Types: Cigarettes Quit date: 1981 Years since quittin.3 Smokeless tobacco: Never Used Vaping Use Vaping Use: Never used Substance Use Topics Alcohol use: Yes Alcohol/week: 5.0 standard drinks Types: 2 Cans of Beer (12oz) per week Comment: 2-3 cans of beer per week Drug use: No Objective BP 122/78 Pulse 82 Temp 36.7 C (98.1 F) (Tympanic) Resp 18 Wt 87.4 kg (192 lb 9.6 oz) SpO2 98% BMI 27.64 kg/m Physical Exam Vitals reviewed. Constitutional: Appearance: Normal appearance. HENT: Head: Normocephalic and atraumatic. Right Ear: There is impacted cerumen. Ears: Comments: Right-sided cerumen impaction in the external auditory canal. After flushed normal canal and TM. Left side exam unremarkable. Nose: Congestion present. Right Sinus: Maxillary sinus tenderness present. Left Sinus: Maxillary sinus tenderness present. Mouth/Throat: Lips: [place]. Mouth: Mucous membranes are moist. Pharynx: Oropharynx is clear. Cardiovascular: Rate and Rhythm: Normal rate and regular rhythm. Heart sounds: Normal heart sounds. Pulmonary: Effort: Pulmonary effort is normal. Breath sounds: Normal breath sounds. Musculoskeletal: Cervical back: Neck supple. Skin: General: Skin is warm and dry. Neurological: General: No focal deficit present. Mental Status: He is alert. Assessment and Plan ASSESSMENT/PLAN: 1. Acute sinusitis, recurrence not specified, unspecified location - ICD9: 461.9, ICD10: J01.90 - Will begin treatment with Augmentin 875 mg PO BID for 5 days - Supportive care with plenty of fluids, rest, and analgesia prn. - Follow up in 3-5 days if symptoms persist or worsen. 2. Impacted cerumen of right ear - ICD9: 380.4, ICD10: H61.21 Cleared here by nursing staff, patient feels improved. Lyudmila Baltazar PA-C documented in this encounterOhiohealth [facility]04-19-2022 Miscellaneous Notes* Telephone Encounter - Gisel Goldstein RN - 05/31/2021 12:06 PM EDT Thoracic Surgery Consultation - review of records for appointment scheduling Received medical records from the office of [facility] [address] [facility] [facility] [id number] Patient is being referred to Julián Boothe MD, PhD by Dr. Omkar Keating for Hiatal Hernia + Barretts esophagus Outside hospital records scanned / in [facility] / Care Everywhere Pathology: Procedures: EGD 05/31/2021 Esophageal mucosal changes classified as Escobedo's stage C10-M10 per [place] criteria. Biopsied. - 8 cm hiatal hernia. - No gross lesions in the stomach. - No gross lesions in the duodenum. Imaging . PET/CT: n/a CT chest: requested CT ( abd, pelvis): 12/18/2018 Dilated stomach and small bowel. The small bowel is dilated down to the distal ileum. . There is distention of the ascending colon and transverse colon. Some of the underlying bowel dilatation may be ileus. Distal small bowel obstruction cannot be excluded. The stomach is dilated with contrast. There is a large sliding-type hiatal hernia with dilatation of the esophagus and reflux of contrast superiorly. The patient is at increased risk for aspiration. Small fluid collections in the gallbladder fossa most likely represent small hematoma versus seroma. Very small biloma cannot be excluded. Findings were called to covering caregiver on pager [phone] at time of dictation. MRI: UGI: . Cardiopulmonary Testing . PFT's/Six: Requested Cardiac: Echo 12/21/2018 Technically difficult exam due to body habitus and suboptimal positioning. - Exam indication: Sustained atrial fibrillation - The left ventricle is normal in size. There is mild septal asymmetric left ventricular hypertrophy. Left ventricular systolic function is normal. EF = 60 5% (visual est.) - The right ventricle is normal in size. Right ventricular systolic function is normal. - The left atrial cavity is mildly dilated. Office Notes/Consults History of: FAMILY HISTORY Problem Relation Age of Onset Emphysema Father Emphysema Mother other (no cardiac hx per pt) Other PAST MEDICAL HISTORY Diagnosis Date Escobedo's esophagus 1989 Hiatal hernia 1989 History of coronary artery bypass graft 07/24/2018 VASQUES in situ mammary end to side mid LAD, Vein graft ascending aorta end to side RCA, Vein graft ascending aorta end to side obtuse marginal 1 Peptic ulcer, unspecified site, unspecified as acute or chronic, without mention of hemorrhage, perforation, or obstruction 2004 Unspecified hypothyroidism 1989 PAST SURGICAL HISTORY Procedure Laterality Date APPENDECTOMY COLONOSCOPY FLX DX W/COLLJ SPEC WHEN PFRMD 06/28/2004 Colonoscopy COLONOSCOPY FLX DX W/COLLJ SPEC WHEN PFRMD 08/06/2015 Colonoscopy CORONARY ARTERY BYPASS GRAFT HX 07/24/2018 VASQUES in situ mammary end to side mid LAD, Vein graft ascending aorta end to side RCA, Vein graft ascending aorta end to side obtuse marginal 1. EGD N/A 06/29/2020 Dr. Keating EGD TRANSORAL BIOPSY SINGLE/MULTIPLE 08/30/2009 EGD TRANSORAL BIOPSY SINGLE/MULTIPLE 08/23/2011 repeat in 2 years ESOPHAGOGASTRODUODENOSCOPY TRANSORAL DIAGNOSTIC 10/06/1998 EGD ESOPHAGOGASTRODUODENOSCOPY TRANSORAL DIAGNOSTIC 01/29/2000 EGD ESOPHAGOGASTRODUODENOSCOPY TRANSORAL DIAGNOSTIC 08/04/2003 EGD ESOPHAGOGASTRODUODENOSCOPY TRANSORAL DIAGNOSTIC 08/29/2007 EGD ESOPHAGOGASTRODUODENOSCOPY TRANSORAL DIAGNOSTIC 08/28/2013 EGD ESOPHAGOGASTRODUODENOSCOPY TRANSORAL DIAGNOSTIC 10/08/2017 EGD HEART SURGERY HX LAPAROSCOPIC CHOLECYSTECTOMY 12/15/2018 PAST SURGICAL HISTORY OF N/A 04/25/2017 Back surgery done at [facility], [address] [place] [address] and cleaned up arthritis Social History Tobacco Use Smoking status: Former Smoker Packs/day: 0.50 Years: 27.00 Pack years: 13.50 Types: Cigarettes Quit date: 1982 Years since quittin.3 Smokeless tobacco: Never Used Vaping Use Vaping Use: Never used Substance Use Topics Alcohol use: Yes Alcohol/week: 5.0 standard drinks Types: 2 Cans of Beer (12oz) per week Comment: 2-3 cans of beer per week Drug use: No Films Request for CT chest without contrast , PFT's and consult to thoracic surgery with Dr. Tuan Goldstein RN, BSN, [facility] Thoracic Nurse Practice Mgr documented in this [facility]03-28-2022 Miscellaneous Notes* Telephone Encounter - Jeanne Schreiber Pss - 05/09/2021 11:30 AM EDT No orders placed Please Advise Jeanne Seaman) Necktie Stitcher II DDSI documented in this [facility]03-24-20[facility] Miscellaneous Notes* Telephone Encounter - Mike Lee APRN.CNP - 05/05/2021 10:51 AM EDT The following approved medication requests have been transmitted electronically. Signed Prescriptions Disp Refills pantoprazole DR (PROTONIX) 40 mg tablet 180 tablet 3 Sig: Take 1 tablet by mouth twice daily. Take on empty stomach, 1/2 hr before meal. ILAN: No Mike Lee APRN.CNP documented in this [facility]09-27-2021 History of Present illness Narrative* Meli Vasquez RT(R) - 11/08/2020 12:10 PM EDT Radiology Service Progress Note PATIENT NAME: Jayden Craig DATE OF SERVICE: November 08, 2020 TIME: 12:04 PM PATIENT IDENTITY VERIFICATION COMPLETED USING TWO (2) IDENTIFIERS: Name and Date of confirmedby patient verbally. FALL SCREENING: Has the patient had 2 falls in the last year or 1 fall with injury or currently using an Ambulatory Assistive Device (Walker, Cane, Wheelchair, Crutches, etc.)? No PATIENT GENDER DATA: Male PATIENT RELEVANT IMPLANT DATA REVIEWED: Yes RADIOLOGY DEPARTMENT: General X-ray: Exam(s) Completed: Chest X-Ray PERIPHERAL IV DATA: Not applicable SIGNED BY: RT [place](R) November 08, 2020 12:04 PM documented in this encounterOhio[facility]11-08-2019 History of Past illness Narrative* Problem Noted Date Resolved Date Ileus 12/20/2018 12/24/2018 Acute blood loss anemia 12/20/2018 12/25/19 19 Acute cholecystitis 12/15/2018 12/24/2018 Transition of care performed with sharing of clinical summary 07/26/2018 09/19/2018 Overview: Indication for Surgery: CAD Preop LVEF: 59% RVF: Normal Postop LVEF: Normal RVF: Normal Cards: M[place]gil EKG: NSR PMH/PSH: Hypothyroid, diverticulitis, GIB, PUD, appendectomy, former smoker, GERD, Barretts, esophageal stricture (9mm on 05/2018 EGD note below) and large hiatal hernia. Airway Difficulty: Grade III view (only epiglottis visible) - No special instrumentation Pacing Wires: Ventricular: Pulled 07/27 Chronological List of Surgeries and Major Events (Diagnosis): (Surgeries in bold characters) 07/24/2018: CABG x 3 (VASQUES to LAD, SVG to RCA, SVG to OM1) OR course: Coagulopathy/bleeding - transfused multiple products in OR CVICU: Hypotension requiring Levo gtt for MAP goal 75-85. A/P: Wires pulled 07/27, MS mayda drain has been removed too. s/p CABG - ASA, BB, statin intolerance (D/w patient and was perhaps 20 years ago his primary MD started a statin. He reports maybe dizziness? I suggested perhaps muscle aches but he is not sure. He denies any anaphylaxis or needing to be hospitalized for any med adverse reactions - will start simvastatin 20mg po daily. Patient aware of S/Sx to report and placed on discharge medication sheet.) GERD/Esophageal strictures s/p dilations, did not do a LUCRECIA in the OR, NO LUCRECIA post-op. Dispo - 77yo male from [place], [place]. CM following. F/U with OPD and Cards made. For D/C today. Discharge Planning: Anticipated Discharge Date: 07/29 Barriers to Discharge: No Barriers to Discharge, Other: NA Care Management Discharge Needs: Needs Prior to Discharge: OT/PT Evaluation Obesity, Class I, BMI 30-34.9 07/26/2018 Overview: History: POA Assessment: Body mass index is 28.62 kg/m . Plan: nutrition consult and lifestyle modification Difficult airway for intubation 07/24/2018 07/29/2018 Overview: Fairly easy mask ventilation. Intubation was difficult with Mac 3 blade. only the epiglottis was visualized, but a blind intubation was successful. Postoperative pain 07/24/2018 07/29/2018 Overview: History: Post-op Assessment: Controlled Plan: Continue scheduled daily Lidoderm patches; PRN Tylenol and Oxycodone. Atelectasis 07/24/2018 07/26/2018 Overview: Grade 3 airway A/P: Postop bibasilar. Elevated right hemidiaphragm OOB to chair. BPH. Postoperative hypotension 07/24/20182018 Overview: A/P: Arrived on Levo, wean to goal MAP 75-85. Coagulopathy 07/24/2018 07/25/2018 Overview: A/P: Coagulopathy/bleeding intraop, transfused 2plts/2FFP/5PRBC in OR, f/u coags and transfuse as needed. Hypovolemia 07/24/2018 07/25/2018 Overview: A/P: Postop fluid shifts. Volume resuscitate as needed. Pre-op testing 07/23/2018 09/19/2018 Overview[facility] PRE[facility] Surgeon: Thom Soto M.D. Informed Consent Completed: Yes STS Score: CAD: Yes - CAD on Problem List: Yes Is intended procedure a CABG: Yes - is a beta getachew ordered? Yes H & P completed: Yes PA/LAT: Completed CT: Completed Abnormal Follow-up for these incidentally detected lung nodules with a chest CT exam is recommended in 3-6 months. If stable on follow-up imaging, a repeat chest CT exam in 12 months (15-18 months from the initial exam) is recommended MRI: N/A LE US: Completed Cath: Yes - reviewed: Yes EKG: Completed Is patient on Amiodarone? Echo:Pending today EF %: pending today PI's: Completed Carotid: Completed Mapping: Completed Dental: N/A, CABG PFT's: Completed Recent Labs 07/23/18 0835 WBC 8.10 HB 9.3* HCT 31.0* PLT 258 INR 1.0 CREAT 0.94 UA: Normal HCG:N/A ABO/ABO Confirmed: Yes, Positive antibodies Blood ordered: Yes Willing to accept blood: SA Swab: Yes - results: Pending Last Dose of Anticoagulation: Aspirin 81 mg continue Op Note: N/A Pacemaker Check: N/A Implants: no Consults: none DM: No Cardiac Surgical prep: N/A SIGNATURE: Rosalia Prakash APRN.CNP DATE of SERVICE: 07/23/2018 TIME of SERVICE: 2:40 PM CHECKED BY: amber Discharge planning issues 07/23/20182018 Overview: 77 y o m here for CABG. Resides in [place]. to [place] for 55 years. Son Harvey is supportive. Await therapy eval. Esophagitis, unspecified 08/29/2007 011 Unspecified hemorrhoids without mention of compl ication 10/20/2010 Overview: Hemorrhoids Diverticulosis of colon (without mention of hemo rrhage) 10/20/2010 Overview: Diverticulosis Peptic ulcer, unspecified si te, unspecified as acute or chronic, without mention of hemorrhage, perforation, or obstruction 05/30/2007 documented as of this encounter (statuses as of 05/05/2021) [facility] History of Past illness Narrative* Problem Noted Date Resolved Date Ileus 12/20/2018 12/24/2018 Acute blood loss anemia 12/20/2018 12/25/19 19 Acute cholecystitis 12/15/2018 12/24/2018 Transition of care performed with sharing of clinical summary 07/26/2018 09/19/2018 Overview: Indication for Surgery: CAD Preop LVEF: 59% RVF: Normal Postop LVEF: Normal RVF: Normal Cards: M[place]gil EKG: NSR PMH/PSH: Hypothyroid, diverticulitis, GIB, PUD, appendectomy, former smoker, GERD, Barretts, esophageal stricture (9mm on 05/2018 EGD note below) and large hiatal hernia. Airway Difficulty: Grade III view (only epiglottis visible) - No special instrumentation Pacing Wires: Ventricular: Pulled 07/27 Chronological List of Surgeries and Major Events (Diagnosis): (Surgeries in bold characters) 07/24/2018: CABG x 3 (VASQUES to LAD, SVG to RCA, SVG to OM1) OR course: Coagulopathy/bleeding - transfused multiple products in OR CVICU: Hypotension requiring Levo gtt for MAP goal 75-85. A/P: Wires pulled 07/27, MS mayda drain has been removed too. s/p CABG - ASA, BB, statin intolerance (D/w patient and was perhaps 20 years ago his primary MD started a statin. He reports maybe dizziness? I suggested perhaps muscle aches but he is not sure. He denies any anaphylaxis or needing to be hospitalized for any med adverse reactions - will start simvastatin 20mg po daily. Patient aware of S/Sx to report and placed on discharge medication sheet.) GERD/Esophageal strictures s/p dilations, did not do a LUCRECIA in the OR, NO LUCRECIA post-op. Dispo - 77yo male from [place], [place]. CM following. F/U with OPD and Cards made. For D/C today. Discharge Planning: Anticipated Discharge Date: 07/29 Barriers to Discharge: No Barriers to Discharge, Other: NA Care Management Discharge Needs: Needs Prior to Discharge: OT/PT Evaluation Obesity, Class I, BMI 30-34.9 07/26/2018 Overview: History: POA Assessment: Body mass index is 28.62 kg/m . Plan: nutrition consult and lifestyle modification Difficult airway for intubation 07/24/2018 07/29/2018 Overview: Fairly easy mask ventilation. Intubation was difficult with Mac 3 blade. only the epiglottis was visualized, but a blind intubation was successful. Postoperative pain 07/24/2018 07/29/2018 Overview: History: Post-op Assessment: Controlled Plan: Continue scheduled daily Lidoderm patches; PRN Tylenol and Oxycodone. Atelectasis 07/24/2018 07/26/2018 Overview: Grade 3 airway A/P: Postop bibasilar. Elevated right hemidiaphragm OOB to chair. BPH. Postoperative hypotension 07/24/20182018 Overview: A/P: Arrived on Levo, wean to goal MAP 75-85. Coagulopathy 07/24/2018 07/25/2018 Overview: A/P: Coagulopathy/bleeding intraop, transfused 2plts/2FFP/5PRBC in OR, f/u coags and transfuse as needed. Hypovolemia 07/24/2018 07/25/2018 Overview: A/P: Postop fluid shifts. Volume resuscitate as needed. Pre-op testing 07/23/2018 09/19/2018 Overview: [facility] PRE-OP CHECKLIST Surgeon: Thom Soto M.D. Informed Consent Completed: Yes STS Score: CAD: Yes - CAD on Problem List: Yes Is intended procedure a CABG: Yes - is a beta getachew ordered? Yes H & P completed: Yes PA/LAT: Completed CT: Completed Abnormal Follow-up for these incidentally detected lung nodules with a chest CT exam is recommended in 3-6 months. If stable on follow-up imaging, a repeat chest CT exam in 12 months (15-18 months from the initial exam) is recommended MRI: N/A LE US: Completed Cath: Yes - reviewed: Yes EKG: Completed Is patient on Amiodarone? Echo:Pending today EF %: pending today PI's: Completed Carotid: Completed Mapping: Completed Dental: N/A, CABG PFT's: Completed Recent Labs 07/23/18 0835 WBC 8.10 HB 9.3* HCT 31.0* PLT 258 INR 1.0 CREAT 0.94 UA: Normal HCG:N/A ABO/ABO Confirmed: Yes, Positive antibodies Blood ordered: Yes Willing to accept blood: SA Swab: Yes - results: Pending Last Dose of Anticoagulation: Aspirin 81 mg continue Op Note: N/A Pacemaker Check: N/A Implants: no Consults: none DM: No Cardiac Surgical prep: N/A SIGNATURE: Rosalia Prakash APRN.CNP DATE of SERVICE: 07/23/2018 TIME of SERVICE: 2:40 PM CHECKED BY: amber Discharge planning issues 07/23/20182018 Overview: 77 y o m here for CABG. Resides in [place]. to [place] for 55 years. Son Harvey is supportive. Await therapy eval. Esophagitis, unspecified 08/29/2007 011 Unspecified hemorrhoids without mention of compl ication 10/20/2010 Overview: Hemorrhoids Diverticulosis of colon (without mention of hemo rrhage) 10/20/2010 Overview: Diverticulosis Peptic ulcer, unspecified si te, unspecified as acute or chronic, without mention of hemorrhage, perforation, or obstruction 05/30/2007 documented as of this encounter (statuses as of 05/10/2021) [facility] History of Past illness Narrative* Problem Noted Date Resolved Date Ileus 12/20/2018 12/24/2018 Acute blood loss anemia 12/20/2018 12/25/19 19 Acute cholecystitis 12/15/2018 12/24/2018 Transition of care performed with sharing of clinical summary 07/26/2018 09/19/2018 Overview: Indication for Surgery: CAD Preop LVEF: 59% RVF: Normal Postop LVEF: Normal RVF: Normal Cards: M[place]gil EKG: NSR PMH/PSH: Hypothyroid, diverticulitis, GIB, PUD, appendectomy, former smoker, GERD, Barretts, esophageal stricture (9mm on 05/2018 EGD note below) and large hiatal hernia. Airway Difficulty: Grade III view (only epiglottis visible) - No special instrumentation Pacing Wires: Ventricular: Pulled 07/27 Chronological List of Surgeries and Major Events (Diagnosis): (Surgeries in bold characters) 07/24/2018: CABG x 3 (VASQUES to LAD, SVG to RCA, SVG to OM1) OR course: Coagulopathy/bleeding - transfused multiple products in OR CVICU: Hypotension requiring Levo gtt for MAP goal 75-85. A/P: Wires pulled 07/27, MS [place] drain has been removed too. s/p CABG - ASA, BB, statin intolerance (D/w patient and was perhaps 20 years ago his primary MD started a statin. He reports maybe dizziness? I suggested perhaps muscle aches but he is not sure. He denies any anaphylaxis or needing to be hospitalized for any med adverse reactions - will start simvastatin 20mg po daily. Patient aware of S/Sx to report and placed on discharge medication sheet.) GERD/Esophageal strictures s/p dilations, did not do a LUCRECIA in the OR, NO LUCRECIA post-op. Dispo - 77yo male from [place], [place]. CM following. F/U with OPD and Cards made. For D/C today. Discharge Planning: Anticipated Discharge Date: 07/29 Barriers to Discharge: No Barriers to Discharge, Other: NA Care Management Discharge Needs: Needs Prior to Discharge: OT/PT Evaluation Obesity, Class I, BMI 30-34.9 07/26/2018 Overview: History: POA Assessment: Body mass index is 28.62 kg/m . Plan: nutrition consult and lifestyle modification Difficult airway for intubation 07/24/2018 07/29/2018 Overview: Fairly easy mask ventilation. Intubation was difficult with Mac 3 blade. only the epiglottis was visualized, but a blind intubation was successful. Postoperative pain 07/24/2018 07/29/2018 Overview: History: Post-op Assessment: Controlled Plan: Continue scheduled daily Lidoderm patches; PRN Tylenol and Oxycodone. Atelectasis 07/24/2018 07/26/2018 Overview: Grade 3 airway A/P: Postop bibasilar. Elevated right hemidiaphragm OOB to chair. BPH. Postoperative hypotension 07/24/20182018 Overview: A/P: Arrived on Levo, wean to goal MAP 75-85. Coagulopathy 07/24/2018 07/25/2018 Overview: A/P: Coagulopathy/bleeding intraop, transfused 2plts/2FFP/5PRBC in OR, f/u coags and transfuse as needed. Hypovolemia 07/24/2018 07/25/2018 Overview: A/P: Postop fluid shifts. Volume resuscitate as needed. Pre-op testing 07/23/2018 09/19/2018 Overview[facility] Surgeon: Thom Soto M.D. Informed Consent Completed: Yes STS Score: CAD: Yes - CAD on Problem List: Yes Is intended procedure a CABG: Yes - is a beta getachew ordered? Yes H & P completed: Yes PA/LAT: Completed CT: Completed Abnormal Follow-up for these incidentally detected lung nodules with a chest CT exam is recommended in 3-6 months. If stable on follow-up imaging, a repeat chest CT exam in 12 months (15-18 months from the initial exam) is recommended MRI: N/A LE US: Completed Cath: Yes - reviewed: Yes EKG: Completed Is patient on Amiodarone? Echo:Pending today EF %: pending today PI's: Completed Carotid: Completed Mapping: Completed Dental: N/A, CABG PFT's: Completed Recent Labs 07/23/18 0835 WBC 8.10 HB 9.3* HCT 31.0* PLT 258 INR 1.0 CREAT 0.94 UA: Normal HCG:N/A ABO/ABO Confirmed: Yes, Positive antibodies Blood ordered: Yes Willing to accept blood: SA Swab: Yes - results: Pending Last Dose of Anticoagulation: Aspirin 81 mg continue Op Note: N/A Pacemaker Check: N/A Implants: no Consults: none DM: No Cardiac Surgical prep: N/A SIGNATURE: Rosalia Prakash APRN.CNP DATE of SERVICE: 07/23/2018 TIME of SERVICE: 2:40 PM CHECKED BY: amber Discharge planning issues 07/23/20182018 Overview: 77 y o m here for CABG. Resides in [place]. to [place] for 55 years. Son Harvey is supportive. Await therapy eval. Esophagitis, unspecified 08/29/2007 011 Unspecified hemorrhoids without mention of compl ication 10/20/2010 Overview: Hemorrhoids Diverticulosis of colon (without mention of hemo rrhage) 10/20/2010 Overview: Diverticulosis Peptic ulcer, unspecified si te, unspecified as acute or chronic, without mention of hemorrhage, perforation, or obstruction 05/30/2007 documented as of this encounter (statuses as of 05/31/2021) [facility]11-08-2019 History of Past illness Narrative* Problem Noted Date Resolved Date Ileus 12/20/2018 12/24/2018 Acute blood loss anemia 12/20/2018 12/25/19 19 Acute cholecystitis 12/15/2018 12/24/2018 Transition of care performed with sharing of clinical summary 07/26/2018 09/19/2018 Overview: Indication for Surgery: CAD Preop LVEF: 59% RVF: Normal Postop LVEF: Normal RVF: Normal Cards: [place] EKG: NSR PMH/PSH: Hypothyroid, diverticulitis, GIB, PUD, appendectomy, former smoker, GERD, Barretts, esophageal stricture (9mm on 05/2018 EGD note below) and large hiatal hernia. Airway Difficulty: Grade III view (only epiglottis visible) - No special instrumentation Pacing Wires: Ventricular: Pulled 07/27 Chronological List of Surgeries and Major Events (Diagnosis): (Surgeries in bold characters) 07/24/2018: CABG x 3 (VASQUES to LAD, SVG to RCA, SVG to OM1) OR course: Coagulopathy/bleeding - transfused multiple products in OR CVICU: Hypotension requiring Levo gtt for MAP goal 75-85. A/P: Wires pulled 07/27, MS mayda drain has been removed too. s/p CABG - ASA, BB, statin intolerance (D/w patient and was perhaps 20 years ago his primary MD started a statin. He reports maybe dizziness? I suggested perhaps muscle aches but he is not sure. He denies any anaphylaxis or needing to be hospitalized for any med adverse reactions - will start simvastatin 20mg po daily. Patient aware of S/Sx to report and placed on discharge medication sheet.) GERD/Esophageal strictures s/p dilations, did not do a LUCRECIA in the OR, NO LUCRECIA post-op. Dispo - 77yo male from [place], [place]. CM following. F/U with OPD and Cards made. For D/C today. Discharge Planning: Anticipated Discharge Date: 07/29 Barriers to Discharge: No Barriers to Discharge, Other: NA Care Management Discharge Needs: Needs Prior to Discharge: OT/PT Evaluation Obesity, Class I, BMI 30-34.9 07/26/2018 Overview: History: POA Assessment: Body mass index is 28.62 kg/m . Plan: nutrition consult and lifestyle modification Difficult airway for intubation 07/24/2018 07/29/2018 Overview: Fairly easy mask ventilation. Intubation was difficult with Mac 3 blade. only the epiglottis was visualized, but a blind intubation was successful. Postoperative pain 07/24/2018 07/29/2018 Overview: History: Post-op Assessment: Controlled Plan: Continue scheduled daily Lidoderm patches; PRN Tylenol and Oxycodone. Atelectasis 07/24/2018 07/26/2018 Overview: Grade 3 airway A/P: Postop bibasilar. Elevated right hemidiaphragm OOB to chair. BPH. Postoperative hypotension 07/24/20182018 Overview: A/P: Arrived on Levo, wean to goal MAP 75-85. Coagulopathy 07/24/2018 07/25/2018 Overview: A/P: Coagulopathy/bleeding intraop, transfused 2plts/2FFP/5PRBC in OR, f/u coags and transfuse as needed. Hypovolemia 07/24/2018 07/25/2018 Overview: A/P: Postop fluid shifts. Volume resuscitate as needed. Pre-op testing 07/23/2018 09/19/2018 Overview: [facility] Surgeon: Thom Soto M.D. Informed Consent Completed: Yes STS Score: CAD: Yes - CAD on Problem List: Yes Is intended procedure a CABG: Yes - is a beta getachew ordered? Yes H & P completed: Yes PA/LAT: Completed CT: Completed Abnormal Follow-up for these incidentally detected lung nodules with a chest CT exam is recommended in 3-6 months. If stable on follow-up imaging, a repeat chest CT exam in 12 months (15-18 months from the initial exam) is recommended MRI: N/A LE US: Completed Cath: Yes - reviewed: Yes EKG: Completed Is patient on Amiodarone? Echo:Pending today EF %: pending today PI's: Completed Carotid: Completed Mapping: Completed Dental: N/A, CABG PFT's: Completed Recent Labs 07/23/18 0835 WBC 8.10 HB 9.3* HCT 31.0* PLT 258 INR 1.0 CREAT 0.94 UA: Normal HCG:N/A ABO/ABO Confirmed: Yes, Positive antibodies Blood ordered: Yes Willing to accept blood: SA Swab: Yes - results: Pending Last Dose of Anticoagulation: Aspirin 81 mg continue Op Note: N/A Pacemaker Check: N/A Implants: no Consults: none DM: No Cardiac Surgical prep: N/A SIGNATURE: Rosalia Prakash APRN.CNP DATE of SERVICE: 07/23/2018 TIME of SERVICE: 2:40 PM CHECKED BY: amber Discharge planning issues 07/23/20182018 Overview: 77 y o m here for CABG. Resides in [place]. to [place] for 55 years. Son Harvey is supportive. Await therapy eval. Esophagitis, unspecified 08/29/2007 011 Unspecified hemorrhoids without mention of compl ication 10/20/2010 Overview: Hemorrhoids Diverticulosis of colon (without mention of hemo rrhage) 10/20/2010 Overview: Diverticulosis Peptic ulcer, unspecified si te, unspecified as acute or chronic, without mention of hemorrhage, perforation, or obstruction 05/30/2007 documented as of this encounter (statuses as of 05/31/2021) [facility]11-[facility] History of Past illness Narrative* Problem Noted Date Resolved Date Ileus 12/20/2018 12/24/2018 Acute blood loss anemia 12/20/2018 12/25/19 19 Acute cholecystitis 12/15/2018 12/24/2018 Transition of care performed with sharing of clinical summary 07/26/2018 09/19/2018 Overview: Indication for Surgery: CAD Preop LVEF: 59% RVF: Normal Postop LVEF: Normal RVF: Normal Cards: [place] EKG: NSR PMH/PSH: Hypothyroid, diverticulitis, GIB, PUD, appendectomy, former smoker, GERD, Barretts, esophageal stricture (9mm on 05/2018 EGD note below) and large hiatal hernia. Airway Difficulty: Grade III view (only epiglottis visible) - No special instrumentation Pacing Wires: Ventricular: Pulled 07/27 Chronological List of Surgeries and Major Events (Diagnosis): (Surgeries in bold characters) 07/24/2018: CABG x 3 (VASQUES to LAD, SVG to RCA, SVG to OM1) OR course: Coagulopathy/bleeding - transfused multiple products in OR CVICU: Hypotension requiring Levo gtt for MAP goal 75-85. A/P: Wires pulled 07/27, MS ohara drain has been removed too. s/p CABG - ASA, BB, statin intolerance (D/w patient and was perhaps 20 years ago his primary MD started a statin. He reports maybe dizziness? I suggested perhaps muscle aches but he is not sure. He denies any anaphylaxis or needing to be hospitalized for any med adverse reactions - will start simvastatin 20mg po daily. Patient aware of S/Sx to report and placed on discharge medication sheet.) GERD/Esophageal strictures s/p dilations, did not do a LUCRECIA in the OR, NO LUCRECIA post-op. Dispo - 77yo male from [place], [place]. CM following. F/U with OPD and Cards made. For D/C today. Discharge Planning: Anticipated Discharge Date: 07/29 Barriers to Discharge: No Barriers to Discharge, Other: NA Care Management Discharge Needs: Needs Prior to Discharge: OT/PT Evaluation Obesity, Class I, BMI 30-34.9 07/26/2018 Overview: History: POA Assessment: Body mass index is 28.62 kg/m . Plan: nutrition consult and lifestyle modification Difficult airway for intubation 07/24/2018 07/29/2018 Overview: Fairly easy mask ventilation. Intubation was difficult with Mac 3 blade. only the epiglottis was visualized, but a blind intubation was successful. Postoperative pain 07/24/2018 07/29/2018 Overview: History: Post-op Assessment: Controlled Plan: Continue scheduled daily Lidoderm patches; PRN Tylenol and Oxycodone. Atelectasis 07/24/2018 07/26/2018 Overview: Grade 3 airway A/P: Postop bibasilar. Elevated right hemidiaphragm OOB to chair. BPH. Postoperative hypotension 07/24/20182018 Overview: A/P: Arrived on Levo, wean to goal MAP 75-85. Coagulopathy 07/24/2018 07/25/2018 Overview: A/P: Coagulopathy/bleeding intraop, transfused 2plts/2FFP/5PRBC in OR, f/u coags and transfuse as needed. Hypovolemia 07/24/2018 07/25/2018 Overview: A/P: Postop fluid shifts. Volume resuscitate as needed. Pre-op testing 07/23/2018 09/19/2018 Overview: [facility] Surgeon: Thom Soto M.D. Informed Consent Completed: Yes STS Score: CAD: Yes - CAD on Problem List: Yes Is intended procedure a CABG: Yes - is a beta getachew ordered? Yes H & P completed: Yes PA/LAT: Completed CT: Completed Abnormal Follow-up for these incidentally detected lung nodules with a chest CT exam is recommended in 3-6 months. If stable on follow-up imaging, a repeat chest CT exam in 12 months (15-18 months from the initial exam) is recommended MRI: N/A LE US: Completed Cath: Yes - reviewed: Yes EKG: Completed Is patient on Amiodarone? Echo:Pending today EF %: pending today PI's: Completed Carotid: Completed Mapping: Completed Dental: N/A, CABG PFT's: Completed Recent Labs 07/23/18 0835 WBC 8.10 HB 9.3* HCT 31.0* PLT 258 INR 1.0 CREAT 0.94 UA: Normal HCG:N/A ABO/ABO Confirmed: Yes, Positive antibodies Blood ordered: Yes Willing to accept blood: SA Swab: Yes - results: Pending Last Dose of Anticoagulation: Aspirin 81 mg continue Op Note: N/A Pacemaker Check: N/A Implants: no Consults: none DM: No Cardiac Surgical prep: N/A SIGNATURE: Rosalia Prakash APRN.CNP DATE of SERVICE: 07/23/2018 TIME of SERVICE: 2:40 PM CHECKED BY: amber Discharge planning issues 07/23/20182018 Overview: 77 y o m here for CABG. Resides in [place]. to [place] for 55 years. Son Harvey is supportive. Await therapy eval. Esophagitis, unspecified 08/29/2007 011 Unspecified hemorrhoids without mention of compl ication 10/20/2010 Overview: Hemorrhoids Diverticulosis of colon (without mention of hemo rrhage) 10/20/2010 Overview: Diverticulosis Peptic ulcer, unspecified si te, unspecified as acute or chronic, without mention of hemorrhage, perforation, or obstruction 05/30/2007 documented as of this encounter (statuses as of 06/04/2021) [facility] History of Past illness Narrative* Problem Noted Date Resolved Date Ileus 12/20/2018 12/24/2018 Acute blood loss anemia 12/20/2018 12/25/19 19 Acute cholecystitis 12/15/2018 12/24/2018 Transition of care performed with sharing of clinical summary 07/26/2018 09/19/2018 Overview: Indication for Surgery: CAD Preop LVEF: 59% RVF: Normal Postop LVEF: Normal RVF: Normal Cards: [place] EKG: NSR PMH/PSH: Hypothyroid, diverticulitis, GIB, PUD, appendectomy, former smoker, GERD, Barretts, esophageal stricture (9mm on 05/2018 EGD note below) and large hiatal hernia. Airway Difficulty: Grade III view (only epiglottis visible) - No special instrumentation Pacing Wires: Ventricular: Pulled 07/27 Chronological List of Surgeries and Major Events (Diagnosis): (Surgeries in bold characters) 07/24/2018: CABG x 3 (VASQUES to LAD, SVG to RCA, SVG to OM1) OR course: Coagulopathy/bleeding - transfused multiple products in OR CVICU: Hypotension requiring Levo gtt for MAP goal 75-85. A/P: Wires pulled 07/27, MS mayda drain has been removed too. s/p CABG - ASA, BB, statin intolerance (D/w patient and was perhaps 20 years ago his primary MD started a statin. He reports maybe dizziness? I suggested perhaps muscle aches but he is not sure. He denies any anaphylaxis or needing to be hospitalized for any med adverse reactions - will start simvastatin 20mg po daily. Patient aware of S/Sx to report and placed on discharge medication sheet.) GERD/Esophageal strictures s/p dilations, did not do a LUCRECIA in the OR, NO LUCRECIA post-op. Dispo - 77yo male from [place], [place]. CM following. F/U with OPD and Cards made. For D/C today. Discharge Planning: Anticipated Discharge Date: 07/29 Barriers to Discharge: No Barriers to Discharge, Other: NA Care Management Discharge Needs: Needs Prior to Discharge: OT/PT Evaluation Obesity, Class I, BMI 30-34.9 07/26/2018 Overview: History: POA Assessment: Body mass index is 28.62 kg/m . Plan: nutrition consult and lifestyle modification Difficult airway for intubation 07/24/2018 07/29/2018 Overview: Fairly easy mask ventilation. Intubation was difficult with Mac 3 blade. only the epiglottis was visualized, but a blind intubation was successful. Postoperative pain 07/24/2018 07/29/2018 Overview: History: Post-op Assessment: Controlled Plan: Continue scheduled daily Lidoderm patches; PRN Tylenol and Oxycodone. Atelectasis 07/24/2018 07/26/2018 Overview: Grade 3 airway A/P: Postop bibasilar. Elevated right hemidiaphragm OOB to chair. BPH. Postoperative hypotension 07/24/20182018 Overview: A/P: Arrived on Levo, wean to goal MAP 75-85. Coagulopathy 07/24/2018 07/25/2018 Overview: A/P: Coagulopathy/bleeding intraop, transfused 2plts/2FFP/5PRBC in OR, f/u coags and transfuse as needed. Hypovolemia 07/24/2018 07/25/2018 Overview: A/P: Postop fluid shifts. Volume resuscitate as needed. Pre-op testing 07/23/2018 09/19/2018 Overview: [facility] Surgeon: Thom Soto M.D. Informed Consent Completed: Yes STS Score: CAD: Yes - CAD on Problem List: Yes Is intended procedure a CABG: Yes - is a beta getachew ordered? Yes H & P completed: Yes PA/LAT: Completed CT: Completed Abnormal Follow-up for these incidentally detected lung nodules with a chest CT exam is recommended in 3-6 months. If stable on follow-up imaging, a repeat chest CT exam in 12 months (15-18 months from the initial exam) is recommended MRI: N/A LE US: Completed Cath: Yes - reviewed: Yes EKG: Completed Is patient on Amiodarone? Echo:Pending today EF %: pending today PI's: Completed Carotid: Completed Mapping: Completed Dental: N/A, CABG PFT's: Completed Recent Labs 07/23/18 0835 WBC 8.10 HB 9.3* HCT 31.0* PLT 258 INR 1.0 CREAT 0.94 UA: Normal HCG:N/A ABO/ABO Confirmed: Yes, Positive antibodies Blood ordered: Yes Willing to accept blood: SA Swab: Yes - results: Pending Last Dose of Anticoagulation: Aspirin 81 mg continue Op Note: N/A Pacemaker Check: N/A Implants: no Consults: none DM: No Cardiac Surgical prep: N/A SIGNATURE: Rosalia Prakash APRN.CNP DATE of SERVICE: 07/23/2018 TIME of SERVICE: 2:40 PM CHECKED BY: amber Discharge planning issues 07/23/20182018 Overview: 77 y o m here for CABG. Resides in [place]. to [place] for 55 years. Son Harvey is supportive. Await therapy eval. Esophagitis, unspecified 08/29/2007 011 Unspecified hemorrhoids without mention of compl ication 10/20/2010 Overview: Hemorrhoids Diverticulosis of colon (without mention of hemo rrhage) 10/20/2010 Overview: Diverticulosis Peptic ulcer, unspecified si te, unspecified as acute or chronic, without mention of hemorrhage, perforation, or obstruction 05/30/2007 documented as of this encounter (statuses as of 06/11/2021) [facility] History of Past illness Narrative* Problem Noted Date Resolved Date Ileus 12/20/2018 12/24/2018 Acute blood loss anemia 12/20/2018 12/25/19 19 Acute cholecystitis 12/15/2018 12/24/2018 Transition of care performed with sharing of clinical summary 07/26/2018 09/19/2018 Overview: Indication for Surgery: CAD Preop LVEF: 59% RVF: Normal Postop LVEF: Normal RVF: Normal Cards: [place] EKG: NSR PMH/PSH: Hypothyroid, diverticulitis, GIB, PUD, appendectomy, former smoker, GERD, Barretts, esophageal stricture (9mm on 05/2018 EGD note below) and large hiatal hernia. Airway Difficulty: Grade III view (only epiglottis visible) - No special instrumentation Pacing Wires: Ventricular: Pulled 07/27 Chronological List of Surgeries and Major Events (Diagnosis): (Surgeries in bold characters) 07/24/2018: CABG x 3 (VASQUES to LAD, SVG to RCA, SVG to OM1) OR course: Coagulopathy/bleeding - transfused multiple products in OR CVICU: Hypotension requiring Levo gtt for MAP goal 75-85. A/P: Wires pulled 07/27, MS ohara drain has been removed too. s/p CABG - ASA, BB, statin intolerance (D/w patient and was perhaps 20 years ago his primary MD started a statin. He reports maybe dizziness? I suggested perhaps muscle aches but he is not sure. He denies any anaphylaxis or needing to be hospitalized for any med adverse reactions - will start simvastatin 20mg po daily. Patient aware of S/Sx to report and placed on discharge medication sheet.) GERD/Esophageal strictures s/p dilations, did not do a LUCRECIA in the OR, NO LUCRECIA post-op. Dispo - 77yo male from [place], [place]. CM following. F/U with OPD and Cards made. For D/C today. Discharge Planning: Anticipated Discharge Date: 07/29 Barriers to Discharge: No Barriers to Discharge, Other: NA Care Management Discharge Needs: Needs Prior to Discharge: OT/PT Evaluation Obesity, Class I, BMI 30-34.9 07/26/2018 Overview: History: POA Assessment: Body mass index is 28.62 kg/m . Plan: nutrition consult and lifestyle modification Difficult airway for intubation 07/24/2018 07/29/2018 Overview: Fairly easy mask ventilation. Intubation was difficult with Mac 3 blade. only the epiglottis was visualized, but a blind intubation was successful. Postoperative pain 07/24/2018 07/29/2018 Overview: History: Post-op Assessment: Controlled Plan: Continue scheduled daily Lidoderm patches; PRN Tylenol and Oxycodone. Atelectasis 07/24/2018 07/26/2018 Overview: Grade 3 airway A/P: Postop bibasilar. Elevated right hemidiaphragm OOB to chair. BPH. Postoperative hypotension 07/24/20182018 Overview: A/P: Arrived on Levo, wean to goal MAP 75-85. Coagulopathy 07/24/2018 07/25/2018 Overview: A/P: Coagulopathy/bleeding intraop, transfused 2plts/2FFP/5PRBC in OR, f/u coags and transfuse as needed. Hypovolemia 07/24/2018 07/25/2018 Overview: A/P: Postop fluid shifts. Volume resuscitate as needed. Pre-op testing 07/23/2018 09/19/2018 Overview: [facility] Surgeon: Thom Soto M.D. Informed Consent Completed: Yes STS Score: CAD: Yes - CAD on Problem List: Yes Is intended procedure a CABG: Yes - is a beta getachew ordered? Yes H & P completed: Yes PA/LAT: Completed CT: Completed Abnormal Follow-up for these incidentally detected lung nodules with a chest CT exam is recommended in 3-6 months. If stable on follow-up imaging, a repeat chest CT exam in 12 months (15-18 months from the initial exam) is recommended MRI: N/A LE US: Completed Cath: Yes - reviewed: Yes EKG: Completed Is patient on Amiodarone? Echo:Pending today EF %: pending today PI's: Completed Carotid: Completed Mapping: Completed Dental: N/A, CABG PFT's: Completed Recent Labs 07/23/18 0835 WBC 8.10 HB 9.3* HCT 31.0* PLT 258 INR 1.0 CREAT 0.94 UA: Normal HCG:N/A ABO/ABO Confirmed: Yes, Positive antibodies Blood ordered: Yes Willing to accept blood: SA Swab: Yes - results: Pending Last Dose of Anticoagulation: Aspirin 81 mg continue Op Note: N/A Pacemaker Check: N/A Implants: no Consults: none DM: No Cardiac Surgical prep: N/A SIGNATURE: Rosalia Prakash APRN.CNP DATE of SERVICE: 07/23/2018 TIME of SERVICE: 2:40 PM CHECKED BY: amber Discharge planning issues 07/23/20182018 Overview: 77 y o m here for CABG. Resides in [place]. to [place] for 55 years. Son Harvey is supportive. Await therapy eval. Esophagitis, unspecified 08/29/2007 011 Unspecified hemorrhoids without mention of compl ication 10/20/2010 Overview: Hemorrhoids Diverticulosis of colon (without mention of hemo rrhage) 10/20/2010 Overview: Diverticulosis Peptic ulcer, unspecified si te, unspecified as acute or chronic, without mention of hemorrhage, perforation, or obstruction 05/30/2007 documented as of this encounter (statuses as of 06/21/2021) [facility] History of Past illness Narrative* Problem Noted Date Resolved Date Ileus 12/20/2018 12/24/2018 Acute blood loss anemia 12/20/2018 12/25/19 19 Acute cholecystitis 12/15/2018 12/24/2018 Transition of care performed with sharing of clinical summary 07/26/2018 09/19/2018 Overview: Indication for Surgery: CAD Preop LVEF: 59% RVF: Normal Postop LVEF: Normal RVF: Normal Cards: [place] EKG: NSR PMH/PSH: Hypothyroid, diverticulitis, GIB, PUD, appendectomy, former smoker, GERD, Barretts, esophageal stricture (9mm on 05/2018 EGD note below) and large hiatal hernia. Airway Difficulty: Grade III view (only epiglottis visible) - No special instrumentation Pacing Wires: Ventricular: Pulled 07/27 Chronological List of Surgeries and Major Events (Diagnosis): (Surgeries in bold characters) 07/24/2018: CABG x 3 (VASQUES to LAD, SVG to RCA, SVG to OM1) OR course: Coagulopathy/bleeding - transfused multiple products in OR CVICU: Hypotension requiring Levo gtt for MAP goal 75-85. A/P: Wires pulled 07/27, MS ohara drain has been removed too. s/p CABG - ASA, BB, statin intolerance (D/w patient and was perhaps 20 years ago his primary MD started a statin. He reports maybe dizziness? I suggested perhaps muscle aches but he is not sure. He denies any anaphylaxis or needing to be hospitalized for any med adverse reactions - will start simvastatin 20mg po daily. Patient aware of S/Sx to report and placed on discharge medication sheet.) GERD/Esophageal strictures s/p dilations, did not do a LUCRECIA in the OR, NO LUCRECIA post-op. Dispo - 77yo male from [place], [place]. CM following. F/U with OPD and Cards made. For D/C today. Discharge Planning: Anticipated Discharge Date: 07/29 Barriers to Discharge: No Barriers to Discharge, Other: NA Care Management Discharge Needs: Needs Prior to Discharge: OT/PT Evaluation Obesity, Class I, BMI 30-34.9 07/26/2018 Overview: History: POA Assessment: Body mass index is 28.62 kg/m . Plan: nutrition consult and lifestyle modification Difficult airway for intubation 07/24/2018 07/29/2018 Overview: Fairly easy mask ventilation. Intubation was difficult with Mac 3 blade. only the epiglottis was visualized, but a blind intubation was successful. Postoperative pain 07/24/2018 07/29/2018 Overview: History: Post-op Assessment: Controlled Plan: Continue scheduled daily Lidoderm patches; PRN Tylenol and Oxycodone. Atelectasis 07/24/2018 07/26/2018 Overview: Grade 3 airway A/P: Postop bibasilar. Elevated right hemidiaphragm OOB to chair. BPH. Postoperative hypotension 07/24/20182018 Overview: A/P: Arrived on Levo, wean to goal MAP 75-85. Coagulopathy 07/24/2018 07/25/2018 Overview: A/P: Coagulopathy/bleeding intraop, transfused 2plts/2FFP/5PRBC in OR, f/u coags and transfuse as needed. Hypovolemia 07/24/2018 07/25/2018 Overview: A/P: Postop fluid shifts. Volume resuscitate as needed. Pre-op testing 07/23/2018 09/19/2018 Overview: [facility] Surgeon: Thom Soto M.D. Informed Consent Completed: Yes STS Score: CAD: Yes - CAD on Problem List: Yes Is intended procedure a CABG: Yes - is a beta getachew ordered? Yes H & P completed: Yes PA/LAT: Completed CT: Completed Abnormal Follow-up for these incidentally detected lung nodules with a chest CT exam is recommended in 3-6 months. If stable on follow-up imaging, a repeat chest CT exam in 12 months (15-18 months from the initial exam) is recommended MRI: N/A LE US: Completed Cath: Yes - reviewed: Yes EKG: Completed Is patient on Amiodarone? Echo:Pending today EF %: pending today PI's: Completed Carotid: Completed Mapping: Completed Dental: N/A, CABG PFT's: Completed Recent Labs 07/23/18 0835 WBC 8.10 HB 9.3* HCT 31.0* PLT 258 INR 1.0 CREAT 0.94 UA: Normal HCG:N/A ABO/ABO Confirmed: Yes, Positive antibodies Blood ordered: Yes Willing to accept blood: SA Swab: Yes - results: Pending Last Dose of Anticoagulation: Aspirin 81 mg continue Op Note: N/A Pacemaker Check: N/A Implants: no Consults: none DM: No Cardiac Surgical prep: N/A SIGNATURE: Rosalia Prakash APRN.CNP DATE of SERVICE: 07/23/2018 TIME of SERVICE: 2:40 PM CHECKED BY: amber Discharge planning issues 07/23/20182018 Overview: 77 y o m here for CABG. Resides in [place]. to [place] for 55 years. Son Harvey is supportive. Await therapy eval. Esophagitis, unspecified 08/29/2007 011 Unspecified hemorrhoids without mention of compl ication 10/20/2010 Overview: Hemorrhoids Diverticulosis of colon (without mention of hemo rrhage) 10/20/2010 Overview: Diverticulosis Peptic ulcer, unspecified si te, unspecified as acute or chronic, without mention of hemorrhage, perforation, or obstruction 05/30/2007 documented as of this encounter (statuses as of 06/28/2021) [facility]11-08-2019 History of Past illness Narrative* Problem Noted Date Resolved Date Ileus 12/20/2018 12/24/2018 Acute blood loss anemia 12/20/2018 12/25/19 19 Acute cholecystitis 12/15/2018 12/24/2018 Transition of care performed with sharing of clinical summary 07/26/2018 09/19/2018 Overview: Indication for Surgery: CAD Preop LVEF: 59% RVF: Normal Postop LVEF: Normal RVF: Normal Cards: [place] EKG: NSR PMH/PSH: Hypothyroid, diverticulitis, GIB, PUD, appendectomy, former smoker, GERD, Barretts, esophageal stricture (9mm on 05/2018 EGD note below) and large hiatal hernia. Airway Difficulty: Grade III view (only epiglottis visible) - No special instrumentation Pacing Wires: Ventricular: Pulled 07/27 Chronological List of Surgeries and Major Events (Diagnosis): (Surgeries in bold characters) 07/24/2018: CABG x 3 (VASQUES to LAD, SVG to RCA, SVG to OM1) OR course: Coagulopathy/bleeding - transfused multiple products in OR CVICU: Hypotension requiring Levo gtt for MAP goal 75-85. A/P: Wires pulled 07/27, MS ohara drain has been removed too. s/p CABG - ASA, BB, statin intolerance (D/w patient and was perhaps 20 years ago his primary MD started a statin. He reports maybe dizziness? I suggested perhaps muscle aches but he is not sure. He denies any anaphylaxis or needing to be hospitalized for any med adverse reactions - will start simvastatin 20mg po daily. Patient aware of S/Sx to report and placed on discharge medication sheet.) GERD/Esophageal strictures s/p dilations, did not do a LUCRECIA in the OR, NO LUCRECIA post-op. Dispo - 77yo male from [place], [place]. CM following. F/U with OPD and Cards made. For D/C today. Discharge Planning: Anticipated Discharge Date: 07/29 Barriers to Discharge: No Barriers to Discharge, Other: NA Care Management Discharge Needs: Needs Prior to Discharge: OT/PT Evaluation Obesity, Class I, BMI 30-34.9 07/26/2018 Overview: History: POA Assessment: Body mass index is 28.62 kg/m . Plan: nutrition consult and lifestyle modification Difficult airway for intubation 07/24/2018 07/29/2018 Overview: Fairly easy mask ventilation. Intubation was difficult with Mac 3 blade. only the epiglottis was visualized, but a blind intubation was successful. Postoperative pain 07/24/2018 07/29/2018 Overview: History: Post-op Assessment: Controlled Plan: Continue scheduled daily Lidoderm patches; PRN Tylenol and Oxycodone. Atelectasis 07/24/2018 07/26/2018 Overview: Grade 3 airway A/P: Postop bibasilar. Elevated right hemidiaphragm OOB to chair. BPH. Postoperative hypotension 07/24/20182018 Overview: A/P: Arrived on Levo, wean to goal MAP 75-85. Coagulopathy 07/24/2018 07/25/2018 Overview: A/P: Coagulopathy/bleeding intraop, transfused 2plts/2FFP/5PRBC in OR, f/u coags and transfuse as needed. Hypovolemia 07/24/2018 07/25/2018 Overview: A/P: Postop fluid shifts. Volume resuscitate as needed. Pre-op testing 07/23/2018 09/19/2018 Overview: [facility] Surgeon: Thom Soto M.D. Informed Consent Completed: Yes STS Score: CAD: Yes - CAD on Problem List: Yes Is intended procedure a CABG: Yes - is a beta getachew ordered? Yes H & P completed: Yes PA/LAT: Completed CT: Completed Abnormal Follow-up for these incidentally detected lung nodules with a chest CT exam is recommended in 3-6 months. If stable on follow-up imaging, a repeat chest CT exam in 12 months (15-18 months from the initial exam) is recommended MRI: N/A LE US: Completed Cath: Yes - reviewed: Yes EKG: Completed Is patient on Amiodarone? Echo:Pending today EF %: pending today PI's: Completed Carotid: Completed Mapping: Completed Dental: N/A, CABG PFT's: Completed Recent Labs 07/23/18 0835 WBC 8.10 HB 9.3* HCT 31.0* PLT 258 INR 1.0 CREAT 0.94 UA: Normal HCG:N/A ABO/ABO Confirmed: Yes, Positive antibodies Blood ordered: Yes Willing to accept blood: SA Swab: Yes - results: Pending Last Dose of Anticoagulation: Aspirin 81 mg continue Op Note: N/A Pacemaker Check: N/A Implants: no Consults: none DM: No Cardiac Surgical prep: N/A SIGNATURE: Rosalia Prakash APRN.CNP DATE of SERVICE: 07/23/2018 TIME of SERVICE: 2:40 PM CHECKED BY: amber Discharge planning issues 07/23/20182018 Overview: 77 y o m here for CABG. Resides in [place]. to [place] for 55 years. Son Harvey is supportive. Await therapy eval. Esophagitis, unspecified 08/29/2007 011 Unspecified hemorrhoids without mention of compl ication 10/20/2010 Overview: Hemorrhoids Diverticulosis of colon (without mention of hemo rrhage) 10/20/2010 Overview: Diverticulosis Peptic ulcer, unspecified si te, unspecified as acute or chronic, without mention of hemorrhage, perforation, or obstruction 05/30/2007 documented as of this encounter (statuses as of 06/30/2021) [facility]11-[facility]2019 History of Past illness Narrative* Problem Noted Date Resolved Date Ileus 12/20/2018 12/24/2018 Acute blood loss anemia 12/20/2018 12/25/19 Acute cholecystitis 12/15/2018 12/24/2018 Transition of care performed with sharing of clinical summary 07/26/2018 09/19/2018 Overview: Indication for Surgery: CAD Preop LVEF: 59% RVF: Normal Postop LVEF: Normal RVF: Normal Cards: [place] EKG: NSR PMH/PSH: Hypothyroid, diverticulitis, GIB, PUD, appendectomy, former smoker, GERD, Barretts, esophageal stricture (9mm on 05/2018 EGD note below) and large hiatal hernia. Airway Difficulty: Grade III view (only epiglottis visible) - No special instrumentation Pacing Wires: Ventricular: Pulled 07/27 Chronological List of Surgeries and Major Events (Diagnosis): (Surgeries in bold characters) 07/24/2018: CABG x 3 (VASQUES to LAD, SVG to RCA, SVG to OM1) OR course: Coagulopathy/bleeding - transfused multiple products in OR CVICU: Hypotension requiring Levo gtt for MAP goal 75-85. A/P: Wires pulled 07/27, [place] ohara drain has been removed too. s/p CABG - ASA, BB, statin intolerance (D/w patient and was perhaps 20 years ago his primary MD started a statin. He reports maybe dizziness? I suggested perhaps muscle aches but he is not sure. He denies any anaphylaxis or needing to be hospitalized for any med adverse reactions - will start simvastatin 20mg po daily. Patient aware of S/Sx to report and placed on discharge medication sheet.) GERD/Esophageal strictures s/p dilations, did not do a LUCRECIA in the OR, NO LUCRECIA post-op. Dispo - 77yo male from [place], [place]. CM following. F/U with OPD and Cards made. For D/C today. Discharge Planning: Anticipated Discharge Date: 07/29 Barriers to Discharge: No Barriers to Discharge, Other: NA Care Management Discharge Needs: Needs Prior to Discharge: OT/PT Evaluation Obesity, Class I, BMI 30-34.9 07/26/2018 Overview: History: POA Assessment: Body mass index is 28.62 kg/m . Plan: nutrition consult and lifestyle modification Difficult airway for intubation 07/24/2018 07/29/2018 Overview: Fairly easy mask ventilation. Intubation was difficult with Mac 3 blade. only the epiglottis was visualized, but a blind intubation was successful. Postoperative pain 07/24/2018 07/29/2018 Overview: History: Post-op Assessment: Controlled Plan: Continue scheduled daily Lidoderm patches; PRN Tylenol and Oxycodone. Atelectasis 07/24/2018 07/26/2018 Overview: Grade 3 airway A/P: Postop bibasilar. Elevated right hemidiaphragm OOB to chair. BPH. Postoperative hypotension 07/24/20182018 Overview: A/P: Arrived on Levo, wean to goal MAP 75-85. Coagulopathy 07/24/2018 07/25/2018 Overview: A/P: Coagulopathy/bleeding intraop, transfused 2plts/2FFP/5PRBC in OR, f/u coags and transfuse as needed. Hypovolemia 07/24/2018 07/25/2018 Overview: A/P: Postop fluid shifts. Volume resuscitate as needed. Pre-op testing 07/23/2018 09/19/2018 Overview: [facility] Surgeon: Thom Soto M.D. Informed Consent Completed: Yes STS Score: CAD: Yes - CAD on Problem List: Yes Is intended procedure a CABG: Yes - is a beta getachew ordered? Yes H & P completed: Yes PA/LAT: Completed CT: Completed Abnormal Follow-up for these incidentally detected lung nodules with a chest CT exam is recommended in 3-6 months. If stable on follow-up imaging, a repeat chest CT exam in 12 months (15-18 months from the initial exam) is recommended MRI: N/A LE US: Completed Cath: Yes - reviewed: Yes EKG: Completed Is patient on Amiodarone? Echo:Pending today EF %: pending today PI's: Completed Carotid: Completed Mapping: Completed Dental: N/A, CABG PFT's: Completed Recent Labs 07/23/18 0835 WBC 8.10 HB 9.3* HCT 31.0* PLT 258 INR 1.0 CREAT 0.94 UA: Normal HCG:N/A ABO/ABO Confirmed: Yes, Positive antibodies Blood ordered: Yes Willing to accept blood: SA Swab: Yes - results: Pending Last Dose of Anticoagulation: Aspirin 81 mg continue Op Note: N/A Pacemaker Check: N/A Implants: no Consults: none DM: No Cardiac Surgical prep: N/A SIGNATURE: Rosalia Prakash APRN.CNP DATE of SERVICE: 07/23/2018 TIME of SERVICE: 2:40 PM CHECKED BY: amber Discharge planning issues 07/23/20182018 Overview: 77 y o m here for CABG. Resides in [place]. to [place] for 55 years. Son Harvey is supportive. Await therapy eval. Esophagitis, unspecified 08/29/2007 011 Unspecified hemorrhoids without mention of compl ication 10/20/2010 Overview: Hemorrhoids Diverticulosis of colon (without mention of hemo rrhage) 10/20/2010 Overview: Diverticulosis Peptic ulcer, unspecified si te, unspecified as acute or chronic, without mention of hemorrhage, perforation, or obstruction 05/30/2007 documented as of this encounter (statuses as of 07/07/2021) [facility]11-[facility] History of Past illness Narrative* Problem Noted Date Resolved Date Ileus 12/20/2018 12/24/2018 Acute blood loss anemia 12/20/2018 12/25/19 19 Acute cholecystitis 12/15/2018 12/24/2018 Transition of care performed with sharing of clinical summary 07/26/2018 09/19/2018 Overview: Indication for Surgery: CAD Preop LVEF: 59% RVF: Normal Postop LVEF: Normal RVF: Normal Cards: [place] EKG: NSR PMH/PSH: Hypothyroid, diverticulitis, GIB, PUD, appendectomy, former smoker, GERD, Barretts, esophageal stricture (9mm on 05/2018 EGD note below) and large hiatal hernia. Airway Difficulty: Grade III view (only epiglottis visible) - No special instrumentation Pacing Wires: Ventricular: Pulled 07/27 Chronological List of Surgeries and Major Events (Diagnosis): (Surgeries in bold characters) 07/24/2018: CABG x 3 (VASQUES to LAD, SVG to RCA, SVG to OM1) OR course: Coagulopathy/bleeding - transfused multiple products in OR CVICU: Hypotension requiring Levo gtt for MAP goal 75-85. A/P: Wires pulled 07/27, MS ohara drain has been removed too. s/p CABG - ASA, BB, statin intolerance (D/w patient and was perhaps 20 years ago his primary MD started a statin. He reports maybe dizziness? I suggested perhaps muscle aches but he is not sure. He denies any anaphylaxis or needing to be hospitalized for any med adverse reactions - will start simvastatin 20mg po daily. Patient aware of S/Sx to report and placed on discharge medication sheet.) GERD/Esophageal strictures s/p dilations, did not do a LUCRECIA in the OR, NO LUCRECIA post-op. Dispo - 77yo male from [place], [place]. CM following. F/U with OPD and Cards made. For D/C today. Discharge Planning: Anticipated Discharge Date: 07/29 Barriers to Discharge: No Barriers to Discharge, Other: NA Care Management Discharge Needs: Needs Prior to Discharge: OT/PT Evaluation Obesity, Class I, BMI 30-34.9 07/26/2018 Overview: History: POA Assessment: Body mass index is 28.62 kg/m . Plan: nutrition consult and lifestyle modification Difficult airway for intubation 07/24/2018 07/29/2018 Overview: Fairly easy mask ventilation. Intubation was difficult with Mac 3 blade. only the epiglottis was visualized, but a blind intubation was successful. Postoperative pain 07/24/2018 07/29/2018 Overview: History: Post-op Assessment: Controlled Plan: Continue scheduled daily Lidoderm patches; PRN Tylenol and Oxycodone. Atelectasis 07/24/2018 07/26/2018 Overview: Grade 3 airway A/P: Postop bibasilar. Elevated right hemidiaphragm OOB to chair. BPH. Postoperative hypotension 07/24/20182018 Overview: A/P: Arrived on Levo, wean to goal MAP 75-85. Coagulopathy 07/24/2018 07/25/2018 Overview: A/P: Coagulopathy/bleeding intraop, transfused 2plts/2FFP/5PRBC in OR, f/u coags and transfuse as needed. Hypovolemia 07/24/2018 07/25/2018 Overview: A/P: Postop fluid shifts. Volume resuscitate as needed. Pre-op testing 07/23/2018 09/19/2018 Overview: [facility] Surgeon: Thom Soto M.D. Informed Consent Completed: Yes STS Score: CAD: Yes - CAD on Problem List: Yes Is intended procedure a CABG: Yes - is a beta getachew ordered? Yes H & P completed: Yes PA/LAT: Completed CT: Completed Abnormal Follow-up for these incidentally detected lung nodules with a chest CT exam is recommended in 3-6 months. If stable on follow-up imaging, a repeat chest CT exam in 12 months (15-18 months from the initial exam) is recommended MRI: N/A LE US: Completed Cath: Yes - reviewed: Yes EKG: Completed Is patient on Amiodarone? Echo:Pending today EF %: pending today PI's: Completed Carotid: Completed Mapping: Completed Dental: N/A, CABG PFT's: Completed Recent Labs 07/23/18 0835 WBC 8.10 HB 9.3* HCT 31.0* PLT 258 INR 1.0 CREAT 0.94 UA: Normal HCG:N/A ABO/ABO Confirmed: Yes, Positive antibodies Blood ordered: Yes Willing to accept blood: SA Swab: Yes - results: Pending Last Dose of Anticoagulation: Aspirin 81 mg continue Op Note: N/A Pacemaker Check: N/A Implants: no Consults: none DM: No Cardiac Surgical prep: N/A SIGNATURE: Rosalia Prakash APRN.CNP DATE of SERVICE: 07/23/2018 TIME of SERVICE: 2:40 PM CHECKED BY: amber Discharge planning issues 07/23/20182018 Overview: 77 y o m here for CABG. Resides in [place]. to [place] for 55 years. Son Harvey is supportive. Await therapy eval. Esophagitis, unspecified 08/29/2007 011 Unspecified hemorrhoids without mention of compl ication 10/20/2010 Overview: Hemorrhoids Diverticulosis of colon (without mention of hemo rrhage) 10/20/2010 Overview: Diverticulosis Peptic ulcer, unspecified si te, unspecified as acute or chronic, without mention of hemorrhage, perforation, or obstruction 05/30/2007 documented as of this encounter (statuses as of 07/18/2021) [facility] History of Past illness Narrative* Problem Noted Date Resolved Date Ileus 12/20/2018 12/24/2018 Acute blood loss anemia 12/20/2018 12/25/19 19 Acute cholecystitis 12/15/2018 12/24/2018 Transition of care performed with sharing of clinical summary 07/26/2018 09/19/2018 Overview: Indication for Surgery: CAD Preop LVEF: 59% RVF: Normal Postop LVEF: Normal RVF: Normal Cards: [place] EKG: NSR PMH/PSH: Hypothyroid, diverticulitis, GIB, PUD, appendectomy, former smoker, GERD, Barretts, esophageal stricture (9mm on 05/2018 EGD note below) and large hiatal hernia. Airway Difficulty: Grade III view (only epiglottis visible) - No special instrumentation Pacing Wires: Ventricular: Pulled 07/27 Chronological List of Surgeries and Major Events (Diagnosis): (Surgeries in bold characters) 07/24/2018: CABG x 3 (VASQUES to LAD, SVG to RCA, SVG to OM1) OR course: Coagulopathy/bleeding - transfused multiple products in OR CVICU: Hypotension requiring Levo gtt for MAP goal 75-85. A/P: Wires pulled 07/27, MS ohara drain has been removed too. s/p CABG - ASA, BB, statin intolerance (D/w patient and was perhaps 20 years ago his primary MD started a statin. He reports maybe dizziness? I suggested perhaps muscle aches but he is not sure. He denies any anaphylaxis or needing to be hospitalized for any med adverse reactions - will start simvastatin 20mg po daily. Patient aware of S/Sx to report and placed on discharge medication sheet.) GERD/Esophageal strictures s/p dilations, did not do a LUCRECIA in the OR, NO LUCRECIA post-op. Dispo - 77yo male from [place], [place]. CM following. F/U with OPD and Cards made. For D/C today. Discharge Planning: Anticipated Discharge Date: 07/29 Barriers to Discharge: No Barriers to Discharge, Other: NA Care Management Discharge Needs: Needs Prior to Discharge: OT/PT Evaluation Obesity, Class I, BMI 30-34.9 07/26/2018 Overview: History: POA Assessment: Body mass index is 28.62 kg/m . Plan: nutrition consult and lifestyle modification Difficult airway for intubation 07/24/2018 07/29/2018 Overview: Fairly easy mask ventilation. Intubation was difficult with Mac 3 blade. only the epiglottis was visualized, but a blind intubation was successful. Postoperative pain 07/24/2018 07/29/2018 Overview: History: Post-op Assessment: Controlled Plan: Continue scheduled daily Lidoderm patches; PRN Tylenol and Oxycodone. Atelectasis 07/24/2018 07/26/2018 Overview: Grade 3 airway A/P: Postop bibasilar. Elevated right hemidiaphragm OOB to chair. BPH. Postoperative hypotension 07/24/20182018 Overview: A/P: Arrived on Levo, wean to goal MAP 75-85. Coagulopathy 07/24/2018 07/25/2018 Overview: A/P: Coagulopathy/bleeding intraop, transfused 2plts/2FFP/5PRBC in OR, f/u coags and transfuse as needed. Hypovolemia 07/24/2018 07/25/2018 Overview: A/P: Postop fluid shifts. Volume resuscitate as needed. Pre-op testing 07/23/2018 09/19/2018 Overview: [facility] Surgeon: Thom Soto M.D. Informed Consent Completed: Yes STS Score: CAD: Yes - CAD on Problem List: Yes Is intended procedure a CABG: Yes - is a beta getachew ordered? Yes H & P completed: Yes PA/LAT: Completed CT: Completed Abnormal Follow-up for these incidentally detected lung nodules with a chest CT exam is recommended in 3-6 months. If stable on follow-up imaging, a repeat chest CT exam in 12 months (15-18 months from the initial exam) is recommended MRI: N/A LE US: Completed Cath: Yes - reviewed: Yes EKG: Completed Is patient on Amiodarone? Echo:Pending today EF %: pending today PI's: Completed Carotid: Completed Mapping: Completed Dental: N/A, CABG PFT's: Completed Recent Labs 07/23/18 0835 WBC 8.10 HB 9.3* HCT 31.0* PLT 258 INR 1.0 CREAT 0.94 UA: Normal HCG:N/A ABO/ABO Confirmed: Yes, Positive antibodies Blood ordered: Yes Willing to accept blood: SA Swab: Yes - results: Pending Last Dose of Anticoagulation: Aspirin 81 mg continue Op Note: N/A Pacemaker Check: N/A Implants: no Consults: none DM: No Cardiac Surgical prep: N/A SIGNATURE: Roaslia Prakash APRN.CNP DATE of SERVICE: 07/23/2018 TIME of SERVICE: 2:40 PM CHECKED BY: amber Discharge planning issues 07/23/20182018 Overview: 77 y o m here for CABG. Resides in [place]. to [place] for 55 years. Son Harvey is supportive. Await therapy eval. Esophagitis, unspecified 08/29/2007 011 Unspecified hemorrhoids without mention of compl ication 10/20/2010 Overview: Hemorrhoids Diverticulosis of colon (without mention of hemo rrhage) 10/20/2010 Overview: Diverticulosis Peptic ulcer, unspecified si te, unspecified as acute or chronic, without mention of hemorrhage, perforation, or obstruction 05/30/2007 documented as of this encounter (statuses as of 07/19/2021) [facility] History of Past illness Narrative* Problem Noted Date Resolved Date Ileus 12/20/2018 12/24/2018 Acute blood loss anemia 12/20/2018 12/25/19 19 Acute cholecystitis 12/15/2018 12/24/2018 Transition of care performed with sharing of clinical summary 07/26/2018 09/19/2018 Overview: Indication for Surgery: CAD Preop LVEF: 59% RVF: Normal Postop LVEF: Normal RVF: Normal Cards: [place] EKG: NSR PMH/PSH: Hypothyroid, diverticulitis, GIB, PUD, appendectomy, former smoker, GERD, Barretts, esophageal stricture (9mm on 05/2018 EGD note below) and large hiatal hernia. Airway Difficulty: Grade III view (only epiglottis visible) - No special instrumentation Pacing Wires: Ventricular: Pulled 07/27 Chronological List of Surgeries and Major Events (Diagnosis): (Surgeries in bold characters) 07/24/2018: CABG x 3 (VASQUES to LAD, SVG to RCA, SVG to OM1) OR course: Coagulopathy/bleeding - transfused multiple products in OR CVICU: Hypotension requiring Levo gtt for MAP goal 75-85. A/P: Wires pulled 07/27, MS mayda drain has been removed too. s/p CABG - ASA, BB, statin intolerance (D/w patient and was perhaps 20 years ago his primary MD started a statin. He reports maybe dizziness? I suggested perhaps muscle aches but he is not sure. He denies any anaphylaxis or needing to be hospitalized for any med adverse reactions - will start simvastatin 20mg po daily. Patient aware of S/Sx to report and placed on discharge medication sheet.) GERD/Esophageal strictures s/p dilations, did not do a LUCRECIA in the OR, NO LUCRECIA post-op. Dispo - 77yo male from [place], [place]. CM following. F/U with OPD and Cards made. For D/C today. Discharge Planning: Anticipated Discharge Date: 07/29 Barriers to Discharge: No Barriers to Discharge, Other: NA Care Management Discharge Needs: Needs Prior to Discharge: OT/PT Evaluation Obesity, Class I, BMI 30-34.9 07/26/2018 Overview: History: POA Assessment: Body mass index is 28.62 kg/m . Plan: nutrition consult and lifestyle modification Difficult airway for intubation 07/24/2018 07/29/2018 Overview: Fairly easy mask ventilation. Intubation was difficult with Mac 3 blade. only the epiglottis was visualized, but a blind intubation was successful. Postoperative pain 07/24/2018 07/29/2018 Overview: History: Post-op Assessment: Controlled Plan: Continue scheduled daily Lidoderm patches; PRN Tylenol and Oxycodone. Atelectasis 07/24/2018 07/26/2018 Overview: Grade 3 airway A/P: Postop bibasilar. Elevated right hemidiaphragm OOB to chair. BPH. Postoperative hypotension 07/24/20182018 Overview: A/P: Arrived on Levo, wean to goal MAP 75-85. Coagulopathy 07/24/2018 07/25/2018 Overview: A/P: Coagulopathy/bleeding intraop, transfused 2plts/2FFP/5PRBC in OR, f/u coags and transfuse as needed. Hypovolemia 07/24/2018 07/25/2018 Overview: A/P: Postop fluid shifts. Volume resuscitate as needed. Pre-op testing 07/23/2018 09/19/2018 Overview: [facility] PRE[facility] Surgeon: Thom Soto M.D. Informed Consent Completed: Yes STS Score: CAD: Yes - CAD on Problem List: Yes Is intended procedure a CABG: Yes - is a beta getachew ordered? Yes H & P completed: Yes PA/LAT: Completed CT: Completed Abnormal Follow-up for these incidentally detected lung nodules with a chest CT exam is recommended in 3-6 months. If stable on follow-up imaging, a repeat chest CT exam in 12 months (15-18 months from the initial exam) is recommended MRI: N/A LE US: Completed Cath: Yes - reviewed: Yes EKG: Completed Is patient on Amiodarone? Echo:Pending today EF %: pending today PI's: Completed Carotid: Completed Mapping: Completed Dental: N/A, CABG PFT's: Completed Recent Labs 07/23/18 0835 WBC 8.10 HB 9.3* HCT 31.0* PLT 258 INR 1.0 CREAT 0.94 UA: Normal HCG:N/A ABO/ABO Confirmed: Yes, Positive antibodies Blood ordered: Yes Willing to accept blood: SA Swab: Yes - results: Pending Last Dose of Anticoagulation: Aspirin 81 mg continue Op Note: N/A Pacemaker Check: N/A Implants: no Consults: none DM: No Cardiac Surgical prep: N/A SIGNATURE: Rosalia Prakash APRN.CNP DATE of SERVICE: 07/23/2018 TIME of SERVICE: 2:40 PM CHECKED BY: amber Discharge planning issues 07/23/20182018 Overview: 77 y o m here for CABG. Resides in [place]. to [place] for 55 years. Son Harvey is supportive. Await therapy eval. Esophagitis, unspecified 08/29/2007 011 Unspecified hemorrhoids without mention of compl ication 10/20/2010 Overview: Hemorrhoids Diverticulosis of colon (without mention of hemo rrhage) 10/20/2010 Overview: Diverticulosis Peptic ulcer, unspecified si te, unspecified as acute or chronic, without mention of hemorrhage, perforation, or obstruction 05/30/2007 documented as of this encounter (statuses as of 07/21/2021) [facility]11-08-2019 History of Past illness Narrative* Problem Noted Date Resolved Date Ileus 12/20/2018 12/24/2018 Acute blood loss anemia 12/20/2018 12/25/19 19 Acute cholecystitis 12/15/2018 12/24/2018 Transition of care performed with sharing of clinical summary 07/26/2018 09/19/2018 Overview: Indication for Surgery: CAD Preop LVEF: 59% RVF: Normal Postop LVEF: Normal RVF: Normal Cards: [place] EKG: NSR PMH/PSH: Hypothyroid, diverticulitis, GIB, PUD, appendectomy, former smoker, GERD, Barretts, esophageal stricture (9mm on 05/2018 EGD note below) and large hiatal hernia. Airway Difficulty: Grade III view (only epiglottis visible) - No special instrumentation Pacing Wires: Ventricular: Pulled 07/27 Chronological List of Surgeries and Major Events (Diagnosis): (Surgeries in bold characters) 07/24/2018: CABG x 3 (VASQUES to LAD, SVG to RCA, SVG to OM1) OR course: Coagulopathy/bleeding - transfused multiple products in OR CVICU: Hypotension requiring Levo gtt for MAP goal 75-85. A/P: Wires pulled 07/27, MS mayda drain has been removed too. s/p CABG - ASA, BB, statin intolerance (D/w patient and was perhaps 20 years ago his primary MD started a statin. He reports maybe dizziness? I suggested perhaps muscle aches but he is not sure. He denies any anaphylaxis or needing to be hospitalized for any med adverse reactions - will start simvastatin 20mg po daily. Patient aware of S/Sx to report and placed on discharge medication sheet.) GERD/Esophageal strictures s/p dilations, did not do a LUCRECIA in the OR, NO LUCRECIA post-op. Dispo - 77yo male from [place], [place]. CM following. F/U with OPD and Cards made. For D/C today. Discharge Planning: Anticipated Discharge Date: 07/29 Barriers to Discharge: No Barriers to Discharge, Other: NA Care Management Discharge Needs: Needs Prior to Discharge: OT/PT Evaluation Obesity, Class I, BMI 30-34.9 07/26/2018 Overview: History: POA Assessment: Body mass index is 28.62 kg/m . Plan: nutrition consult and lifestyle modification Difficult airway for intubation 07/24/2018 07/29/2018 Overview: Fairly easy mask ventilation. Intubation was difficult with Mac 3 blade. only the epiglottis was visualized, but a blind intubation was successful. Postoperative pain 07/24/2018 07/29/2018 Overview: History: Post-op Assessment: Controlled Plan: Continue scheduled daily Lidoderm patches; PRN Tylenol and Oxycodone. Atelectasis 07/24/2018 07/26/2018 Overview: Grade 3 airway A/P: Postop bibasilar. Elevated right hemidiaphragm OOB to chair. BPH. Postoperative hypotension 07/24/20182018 Overview: A/P: Arrived on Levo, wean to goal MAP 75-85. Coagulopathy 07/24/2018 07/25/2018 Overview: A/P: Coagulopathy/bleeding intraop, transfused 2plts/2FFP/5PRBC in OR, f/u coags and transfuse as needed. Hypovolemia 07/24/2018 07/25/2018 Overview: A/P: Postop fluid shifts. Volume resuscitate as needed. Pre-op testing 07/23/2018 09/19/2018 Overview: [facility] Surgeon: Thom Soto M.D. Informed Consent Completed: Yes STS Score: CAD: Yes - CAD on Problem List: Yes Is intended procedure a CABG: Yes - is a beta getachew ordered? Yes H & P completed: Yes PA/LAT: Completed CT: Completed Abnormal Follow-up for these incidentally detected lung nodules with a chest CT exam is recommended in 3-6 months. If stable on follow-up imaging, a repeat chest CT exam in 12 months (15-18 months from the initial exam) is recommended MRI: N/A LE US: Completed Cath: Yes - reviewed: Yes EKG: Completed Is patient on Amiodarone? Echo:Pending today EF %: pending today PI's: Completed Carotid: Completed Mapping: Completed Dental: N/A, CABG PFT's: Completed Recent Labs 07/23/18 0835 WBC 8.10 HB 9.3* HCT 31.0* PLT 258 INR 1.0 CREAT 0.94 UA: Normal HCG:N/A ABO/ABO Confirmed: Yes, Positive antibodies Blood ordered: Yes Willing to accept blood: SA Swab: Yes - results: Pending Last Dose of Anticoagulation: Aspirin 81 mg continue Op Note: N/A Pacemaker Check: N/A Implants: no Consults: none DM: No Cardiac Surgical prep: N/A SIGNATURE: Rosalia Prakash APRN.CNP DATE of SERVICE: 07/23/2018 TIME of SERVICE: 2:40 PM CHECKED BY: amber Discharge planning issues 07/23/20182018 Overview: 77 y o m here for CABG. Resides in [place]. to [place] for 55 years. Son Harvey is supportive. Await therapy eval. Esophagitis, unspecified 08/29/2007 011 Unspecified hemorrhoids without mention of compl ication 10/20/2010 Overview: Hemorrhoids Diverticulosis of colon (without mention of hemo rrhage) 10/20/2010 Overview: Diverticulosis Peptic ulcer, unspecified si te, unspecified as acute or chronic, without mention of hemorrhage, perforation, or obstruction 05/30/2007 documented as of this encounter (statuses as of 07/27/2021) [facility]11-[facility]2019 History of Past illness Narrative* Problem Noted Date Resolved Date Ileus 12/20/2018 12/24/2018 Acute blood loss anemia 12/20/2018 12/25/19 19 Acute cholecystitis 12/15/2018 12/24/2018 Transition of care performed with sharing of clinical summary 07/26/2018 09/19/2018 Overview: Indication for Surgery: CAD Preop LVEF: 59% RVF: Normal Postop LVEF: Normal RVF: Normal Cards: [place] EKG: NSR PMH/PSH: Hypothyroid, diverticulitis, GIB, PUD, appendectomy, former smoker, GERD, Barretts, esophageal stricture (9mm on 05/2018 EGD note below) and large hiatal hernia. Airway Difficulty: Grade III view (only epiglottis visible) - No special instrumentation Pacing Wires: Ventricular: Pulled 07/27 Chronological List of Surgeries and Major Events (Diagnosis): (Surgeries in bold characters) 07/24/2018: CABG x 3 (VASQUES to LAD, SVG to RCA, SVG to OM1) OR course: Coagulopathy/bleeding - transfused multiple products in OR CVICU: Hypotension requiring Levo gtt for MAP goal 75-85. A/P: Wires pulled 07/27, MS [place]ara drain has been removed too. s/p CABG - ASA, BB, statin intolerance (D/w patient and was perhaps 20 years ago his primary MD started a statin. He reports maybe dizziness? I suggested perhaps muscle aches but he is not sure. He denies any anaphylaxis or needing to be hospitalized for any med adverse reactions - will start simvastatin 20mg po daily. Patient aware of S/Sx to report and placed on discharge medication sheet.) GERD/Esophageal strictures s/p dilations, did not do a LUCRECIA in the OR, NO LUCRECIA post-op. Dispo - 77yo male from [place], [place]. CM following. F/U with OPD and Cards made. For D/C today. Discharge Planning: Anticipated Discharge Date: 07/29 Barriers to Discharge: No Barriers to Discharge, Other: NA Care Management Discharge Needs: Needs Prior to Discharge: OT/PT Evaluation Obesity, Class I, BMI 30-34.9 07/26/2018 Overview: History: POA Assessment: Body mass index is 28.62 kg/m . Plan: nutrition consult and lifestyle modification Difficult airway for intubation 07/24/2018 07/29/2018 Overview: Fairly easy mask ventilation. Intubation was difficult with Mac 3 blade. only the epiglottis was visualized, but a blind intubation was successful. Postoperative pain 07/24/2018 07/29/2018 Overview: History: Post-op Assessment: Controlled Plan: Continue scheduled daily Lidoderm patches; PRN Tylenol and Oxycodone. Atelectasis 07/24/2018 07/26/2018 Overview: Grade 3 airway A/P: Postop bibasilar. Elevated right hemidiaphragm OOB to chair. BPH. Postoperative hypotension 07/24/20182018 Overview: A/P: Arrived on Levo, wean to goal MAP 75-85. Coagulopathy 07/24/2018 07/25/2018 Overview: A/P: Coagulopathy/bleeding intraop, transfused 2plts/2FFP/5PRBC in OR, f/u coags and transfuse as needed. Hypovolemia 07/24/2018 07/25/2018 Overview: A/P: Postop fluid shifts. Volume resuscitate as needed. Pre-op testing 07/23/2018 09/19/2018 Overview: [facility] Surgeon: Thom Soto M.D. Informed Consent Completed: Yes STS Score: CAD: Yes - CAD on Problem List: Yes Is intended procedure a CABG: Yes - is a beta getachew ordered? Yes H & P completed: Yes PA/LAT: Completed CT: Completed Abnormal Follow-up for these incidentally detected lung nodules with a chest CT exam is recommended in 3-6 months. If stable on follow-up imaging, a repeat chest CT exam in 12 months (15-18 months from the initial exam) is recommended MRI: N/A LE US: Completed Cath: Yes - reviewed: Yes EKG: Completed Is patient on Amiodarone? Echo:Pending today EF %: pending today PI's: Completed Carotid: Completed Mapping: Completed Dental: N/A, CABG PFT's: Completed Recent Labs 07/23/18 0835 WBC 8.10 HB 9.3* HCT 31.0* PLT 258 INR 1.0 CREAT 0.94 UA: Normal HCG:N/A ABO/ABO Confirmed: Yes, Positive antibodies Blood ordered: Yes Willing to accept blood: SA Swab: Yes - results: Pending Last Dose of Anticoagulation: Aspirin 81 mg continue Op Note: N/A Pacemaker Check: N/A Implants: no Consults: none DM: No Cardiac Surgical prep: N/A SIGNATURE: Rosalia Praaksh APRN.CNP DATE of SERVICE: 07/23/2018 TIME of SERVICE: 2:40 PM CHECKED BY: amber Discharge planning issues 07/23/20182018 Overview: 77 y o m here for CABG. Resides in [place]. to [place] for 55 years. Son Harvey is supportive. Await therapy eval. Esophagitis, unspecified 08/29/2007 011 Unspecified hemorrhoids without mention of compl ication 10/20/2010 Overview: Hemorrhoids Diverticulosis of colon (without mention of hemo rrhage) 10/20/2010 Overview: Diverticulosis Peptic ulcer, unspecified si te, unspecified as acute or chronic, without mention of hemorrhage, perforation, or obstruction 05/30/2007 documented as of this encounter (statuses as of 07/28/2021) [facility]11-[facility] History of Past illness Narrative* Problem Noted Date Resolved Date Ileus 12/20/2018 12/24/2018 Acute blood loss anemia 12/20/2018 12/25/19 19 Acute cholecystitis 12/15/2018 12/24/2018 Transition of care performed with sharing of clinical summary 07/26/2018 09/19/2018 Overview: Indication for Surgery: CAD Preop LVEF: 59% RVF: Normal Postop LVEF: Normal RVF: Normal Cards: [place] EKG: NSR PMH/PSH: Hypothyroid, diverticulitis, GIB, PUD, appendectomy, former smoker, GERD, Barretts, esophageal stricture (9mm on 05/2018 EGD note below) and large hiatal hernia. Airway Difficulty: Grade III view (only epiglottis visible) - No special instrumentation Pacing Wires: Ventricular: Pulled 07/27 Chronological List of Surgeries and Major Events (Diagnosis): (Surgeries in bold characters) 07/24/2018: CABG x 3 (VASQUES to LAD, SVG to RCA, SVG to OM1) OR course: Coagulopathy/bleeding - transfused multiple products in OR CVICU: Hypotension requiring Levo gtt for MAP goal 75-85. A/P: Wires pulled 07/27, MS ohara drain has been removed too. s/p CABG - ASA, BB, statin intolerance (D/w patient and was perhaps 20 years ago his primary MD started a statin. He reports maybe dizziness? I suggested perhaps muscle aches but he is not sure. He denies any anaphylaxis or needing to be hospitalized for any med adverse reactions - will start simvastatin 20mg po daily. Patient aware of S/Sx to report and placed on discharge medication sheet.) GERD/Esophageal strictures s/p dilations, did not do a LUCRECIA in the OR, NO LUCRECIA post-op. Dispo - 77yo male from [place], [place]. CM following. F/U with OPD and Cards made. For D/C today. Discharge Planning: Anticipated Discharge Date: 07/29 Barriers to Discharge: No Barriers to Discharge, Other: NA Care Management Discharge Needs: Needs Prior to Discharge: OT/PT Evaluation Obesity, Class I, BMI 30-34.9 07/26/2018 Overview: History: POA Assessment: Body mass index is 28.62 kg/m . Plan: nutrition consult and lifestyle modification Difficult airway for intubation 07/24/2018 07/29/2018 Overview: Fairly easy mask ventilation. Intubation was difficult with Mac 3 blade. only the epiglottis was visualized, but a blind intubation was successful. Postoperative pain 07/24/2018 07/29/2018 Overview: History: Post-op Assessment: Controlled Plan: Continue scheduled daily Lidoderm patches; PRN Tylenol and Oxycodone. Atelectasis 07/24/2018 07/26/2018 Overview: Grade 3 airway A/P: Postop bibasilar. Elevated right hemidiaphragm OOB to chair. BPH. Postoperative hypotension 07/24/20182018 Overview: A/P: Arrived on Levo, wean to goal MAP 75-85. Coagulopathy 07/24/2018 07/25/2018 Overview: A/P: Coagulopathy/bleeding intraop, transfused 2plts/2FFP/5PRBC in OR, f/u coags and transfuse as needed. Hypovolemia 07/24/2018 07/25/2018 Overview: A/P: Postop fluid shifts. Volume resuscitate as needed. Pre-op testing 07/23/2018 09/19/2018 Overview: [facility] Surgeon: Thom Soto M.D. Informed Consent Completed: Yes STS Score: CAD: Yes - CAD on Problem List: Yes Is intended procedure a CABG: Yes - is a beta getachew ordered? Yes H & P completed: Yes PA/LAT: Completed CT: Completed Abnormal Follow-up for these incidentally detected lung nodules with a chest CT exam is recommended in 3-6 months. If stable on follow-up imaging, a repeat chest CT exam in 12 months (15-18 months from the initial exam) is recommended MRI: N/A LE US: Completed Cath: Yes - reviewed: Yes EKG: Completed Is patient on Amiodarone? Echo:Pending today EF %: pending today PI's: Completed Carotid: Completed Mapping: Completed Dental: N/A, CABG PFT's: Completed Recent Labs 07/23/18 0835 WBC 8.10 HB 9.3* HCT 31.0* PLT 258 INR 1.0 CREAT 0.94 UA: Normal HCG:N/A ABO/ABO Confirmed: Yes, Positive antibodies Blood ordered: Yes Willing to accept blood: SA Swab: Yes - results: Pending Last Dose of Anticoagulation: Aspirin 81 mg continue Op Note: N/A Pacemaker Check: N/A Implants: no Consults: none DM: No Cardiac Surgical prep: N/A SIGNATURE: Rosalia Prakash APRN.CNP DATE of SERVICE: 07/23/2018 TIME of SERVICE: 2:40 PM CHECKED BY: amber Discharge planning issues 07/23/20182018 Overview: 77 y o m here for CABG. Resides in [place]. to [place] for 55 years. Son Harvey is supportive. Await therapy eval. Esophagitis, unspecified 08/29/2007 011 Unspecified hemorrhoids without mention of compl ication 10/20/2010 Overview: Hemorrhoids Diverticulosis of colon (without mention of hemo rrhage) 10/20/2010 Overview: Diverticulosis Peptic ulcer, unspecified si te, unspecified as acute or chronic, without mention of hemorrhage, perforation, or obstruction 05/30/2007 documented as of this encounter (statuses as of 08/02/2021) [facility] History of Past illness Narrative* Problem Noted Date Resolved Date Ileus 12/20/2018 12/24/2018 Acute blood loss anemia 12/20/2018 12/25/19 19 Acute cholecystitis 12/15/2018 12/24/2018 Transition of care performed with sharing of clinical summary 07/26/2018 09/19/2018 Overview: Indication for Surgery: CAD Preop LVEF: 59% RVF: Normal Postop LVEF: Normal RVF: Normal Cards: [place] EKG: NSR PMH/PSH: Hypothyroid, diverticulitis, GIB, PUD, appendectomy, former smoker, GERD, Barretts, esophageal stricture (9mm on 05/2018 EGD note below) and large hiatal hernia. Airway Difficulty: Grade III view (only epiglottis visible) - No special instrumentation Pacing Wires: Ventricular: Pulled 07/27 Chronological List of Surgeries and Major Events (Diagnosis): (Surgeries in bold characters) 07/24/2018: CABG x 3 (VASQUES to LAD, SVG to RCA, SVG to OM1) OR course: Coagulopathy/bleeding - transfused multiple products in OR CVICU: Hypotension requiring Levo gtt for MAP goal 75-85. A/P: Wires pulled 07/27, MS mayda drain has been removed too. s/p CABG - ASA, BB, statin intolerance (D/w patient and was perhaps 20 years ago his primary MD started a statin. He reports maybe dizziness? I suggested perhaps muscle aches but he is not sure. He denies any anaphylaxis or needing to be hospitalized for any med adverse reactions - will start simvastatin 20mg po daily. Patient aware of S/Sx to report and placed on discharge medication sheet.) GERD/Esophageal strictures s/p dilations, did not do a LUCRECIA in the OR, NO LUCRECIA post-op. Dispo - 77yo male from [place], [place]. CM following. F/U with OPD and Cards made. For D/C today. Discharge Planning: Anticipated Discharge Date: 07/29 Barriers to Discharge: No Barriers to Discharge, Other: NA Care Management Discharge Needs: Needs Prior to Discharge: OT/PT Evaluation Obesity, Class I, BMI 30-34.9 07/26/2018 Overview: History: POA Assessment: Body mass index is 28.62 kg/m . Plan: nutrition consult and lifestyle modification Difficult airway for intubation 07/24/2018 07/29/2018 Overview: Fairly easy mask ventilation. Intubation was difficult with Mac 3 blade. only the epiglottis was visualized, but a blind intubation was successful. Postoperative pain 07/24/2018 07/29/2018 Overview: History: Post-op Assessment: Controlled Plan: Continue scheduled daily Lidoderm patches; PRN Tylenol and Oxycodone. Atelectasis 07/24/2018 07/26/2018 Overview: Grade 3 airway A/P: Postop bibasilar. Elevated right hemidiaphragm OOB to chair. BPH. Postoperative hypotension 07/24/20182018 Overview: A/P: Arrived on Levo, wean to goal MAP 75-85. Coagulopathy 07/24/2018 07/25/2018 Overview: A/P: Coagulopathy/bleeding intraop, transfused 2plts/2FFP/5PRBC in OR, f/u coags and transfuse as needed. Hypovolemia 07/24/2018 07/25/2018 Overview: A/P: Postop fluid shifts. Volume resuscitate as needed. Pre-op testing 07/23/2018 09/19/2018 Overview: [facility] Surgeon: Thom Soto M.D. Informed Consent Completed: Yes STS Score: CAD: Yes - CAD on Problem List: Yes Is intended procedure a CABG: Yes - is a beta getachew ordered? Yes H & P completed: Yes PA/LAT: Completed CT: Completed Abnormal Follow-up for these incidentally detected lung nodules with a chest CT exam is recommended in 3-6 months. If stable on follow-up imaging, a repeat chest CT exam in 12 months (15-18 months from the initial exam) is recommended MRI: N/A LE US: Completed Cath: Yes - reviewed: Yes EKG: Completed Is patient on Amiodarone? Echo:Pending today EF %: pending today PI's: Completed Carotid: Completed Mapping: Completed Dental: N/A, CABG PFT's: Completed Recent Labs 07/23/18 0835 WBC 8.10 HB 9.3* HCT 31.0* PLT 258 INR 1.0 CREAT 0.94 UA: Normal HCG:N/A ABO/ABO Confirmed: Yes, Positive antibodies Blood ordered: Yes Willing to accept blood: SA Swab: Yes - results: Pending Last Dose of Anticoagulation: Aspirin 81 mg continue Op Note: N/A Pacemaker Check: N/A Implants: no Consults: none DM: No Cardiac Surgical prep: N/A SIGNATURE: Rosalia Prakash APRN.CNP DATE of SERVICE: 07/23/2018 TIME of SERVICE: 2:40 PM CHECKED BY: amber Discharge planning issues 07/23/20182018 Overview: 77 y o m here for CABG. Resides in [place]. to [place] for 55 years. Son Harvey is supportive. Await therapy eval. Esophagitis, unspecified 08/29/2007 011 Unspecified hemorrhoids without mention of compl ication 10/20/2010 Overview: Hemorrhoids Diverticulosis of colon (without mention of hemo rrhage) 10/20/2010 Overview: Diverticulosis Peptic ulcer, unspecified si te, unspecified as acute or chronic, without mention of hemorrhage, perforation, or obstruction 05/30/2007 documented as of this encounter (statuses as of 08/05/2021) [facility] History of Past illness Narrative* Problem Noted Date Resolved Date Ileus 12/20/2018 12/24/2018 Acute blood loss anemia 12/20/2018 12/25/19 19 Acute cholecystitis 12/15/2018 12/24/2018 Transition of care performed with sharing of clinical summary 07/26/2018 09/19/2018 Overview: Indication for Surgery: CAD Preop LVEF: 59% RVF: Normal Postop LVEF: Normal RVF: Normal Cards: [place] EKG: NSR PMH/PSH: Hypothyroid, diverticulitis, GIB, PUD, appendectomy, former smoker, GERD, Barretts, esophageal stricture (9mm on 05/2018 EGD note below) and large hiatal hernia. Airway Difficulty: Grade III view (only epiglottis visible) - No special instrumentation Pacing Wires: Ventricular: Pulled 07/27 Chronological List of Surgeries and Major Events (Diagnosis): (Surgeries in bold characters) 07/24/2018: CABG x 3 (VASQUES to LAD, SVG to RCA, SVG to OM1) OR course: Coagulopathy/bleeding - transfused multiple products in OR CVICU: Hypotension requiring Levo gtt for MAP goal 75-85. A/P: Wires pulled 07/27, MS mayda drain has been removed too. s/p CABG - ASA, BB, statin intolerance (D/w patient and was perhaps 20 years ago his primary MD started a statin. He reports maybe dizziness? I suggested perhaps muscle aches but he is not sure. He denies any anaphylaxis or needing to be hospitalized for any med adverse reactions - will start simvastatin 20mg po daily. Patient aware of S/Sx to report and placed on discharge medication sheet.) GERD/Esophageal strictures s/p dilations, did not do a LUCRECIA in the OR, NO LUCRECIA post-op. Dispo - 77yo male from [place], [place]. CM following. F/U with OPD and Cards made. For D/C today. Discharge Planning: Anticipated Discharge Date: 07/29 Barriers to Discharge: No Barriers to Discharge, Other: NA Care Management Discharge Needs: Needs Prior to Discharge: OT/PT Evaluation Obesity, Class I, BMI 30-34.9 07/26/2018 Overview: History: POA Assessment: Body mass index is 28.62 kg/m . Plan: nutrition consult and lifestyle modification Difficult airway for intubation 07/24/2018 07/29/2018 Overview: Fairly easy mask ventilation. Intubation was difficult with Mac 3 blade. only the epiglottis was visualized, but a blind intubation was successful. Postoperative pain 07/24/2018 07/29/2018 Overview: History: Post-op Assessment: Controlled Plan: Continue scheduled daily Lidoderm patches; PRN Tylenol and Oxycodone. Atelectasis 07/24/2018 07/26/2018 Overview: Grade 3 airway A/P: Postop bibasilar. Elevated right hemidiaphragm OOB to chair. BPH. Postoperative hypotension 07/24/20182018 Overview: A/P: Arrived on Levo, wean to goal MAP 75-85. Coagulopathy 07/24/2018 07/25/2018 Overview: A/P: Coagulopathy/bleeding intraop, transfused 2plts/2FFP/5PRBC in OR, f/u coags and transfuse as needed. Hypovolemia 07/24/2018 07/25/2018 Overview: A/P: Postop fluid shifts. Volume resuscitate as needed. Pre-op testing 07/23/2018 09/19/2018 Overview: [facility] Surgeon: Thom Soto M.D. Informed Consent Completed: Yes STS Score: CAD: Yes - CAD on Problem List: Yes Is intended procedure a CABG: Yes - is a beta getachew ordered? Yes H & P completed: Yes PA/LAT: Completed CT: Completed Abnormal Follow-up for these incidentally detected lung nodules with a chest CT exam is recommended in 3-6 months. If stable on follow-up imaging, a repeat chest CT exam in 12 months (15-18 months from the initial exam) is recommended MRI: N/A LE US: Completed Cath: Yes - reviewed: Yes EKG: Completed Is patient on Amiodarone? Echo:Pending today EF %: pending today PI's: Completed Carotid: Completed Mapping: Completed Dental: N/A, CABG PFT's: Completed Recent Labs 07/23/18 0835 WBC 8.10 HB 9.3* HCT 31.0* PLT 258 INR 1.0 CREAT 0.94 UA: Normal HCG:N/A ABO/ABO Confirmed: Yes, Positive antibodies Blood ordered: Yes Willing to accept blood: SA Swab: Yes - results: Pending Last Dose of Anticoagulation: Aspirin 81 mg continue Op Note: N/A Pacemaker Check: N/A Implants: no Consults: none DM: No Cardiac Surgical prep: N/A SIGNATURE: Rosalia Prakash APRN.CNP DATE of SERVICE: 07/23/2018 TIME of SERVICE: 2:40 PM CHECKED BY: amber Discharge planning issues 07/23/20182018 Overview: 77 y o m here for CABG. Resides in [place]. to [place] for 55 years. Son Harvey is supportive. Await therapy eval. Esophagitis, unspecified 08/29/2007 011 Unspecified hemorrhoids without mention of compl ication 10/20/2010 Overview: Hemorrhoids Diverticulosis of colon (without mention of hemo rrhage) 10/20/2010 Overview: Diverticulosis Peptic ulcer, unspecified si te, unspecified as acute or chronic, without mention of hemorrhage, perforation, or obstruction 05/30/2007 documented as of this encounter (statuses as of 08/10/2021) [facility]11-08-2019 History of Past illness Narrative* Problem Noted Date Resolved Date Ileus 12/20/2018 12/24/2018 Acute blood loss anemia 12/20/2018 12/25/19 19 Acute cholecystitis 12/15/2018 12/24/2018 Transition of care performed with sharing of clinical summary 07/26/2018 09/19/2018 Overview: Indication for Surgery: CAD Preop LVEF: 59% RVF: Normal Postop LVEF: Normal RVF: Normal Cards: [place] EKG: NSR PMH/PSH: Hypothyroid, diverticulitis, GIB, PUD, appendectomy, former smoker, GERD, Barretts, esophageal stricture (9mm on 05/2018 EGD note below) and large hiatal hernia. Airway Difficulty: Grade III view (only epiglottis visible) - No special instrumentation Pacing Wires: Ventricular: Pulled 07/27 Chronological List of Surgeries and Major Events (Diagnosis): (Surgeries in bold characters) 07/24/2018: CABG x 3 (VASQUES to LAD, SVG to RCA, SVG to OM1) OR course: Coagulopathy/bleeding - transfused multiple products in OR CVICU: Hypotension requiring Levo gtt for MAP goal 75-85. A/P: Wires pulled 07/27, MS ohara drain has been removed too. s/p CABG - ASA, BB, statin intolerance (D/w patient and was perhaps 20 years ago his primary MD started a statin. He reports maybe dizziness? I suggested perhaps muscle aches but he is not sure. He denies any anaphylaxis or needing to be hospitalized for any med adverse reactions - will start simvastatin 20mg po daily. Patient aware of S/Sx to report and placed on discharge medication sheet.) GERD/Esophageal strictures s/p dilations, did not do a LUCRECIA in the OR, NO LUCRECIA post-op. Dispo - 77yo male from [place], [place]. CM following. F/U with OPD and Cards made. For D/C today. Discharge Planning: Anticipated Discharge Date: 07/29 Barriers to Discharge: No Barriers to Discharge, Other: NA Care Management Discharge Needs: Needs Prior to Discharge: OT/PT Evaluation Obesity, Class I, BMI 30-34.9 07/26/2018 Overview: History: POA Assessment: Body mass index is 28.62 kg/m . Plan: nutrition consult and lifestyle modification Difficult airway for intubation 07/24/2018 07/29/2018 Overview: Fairly easy mask ventilation. Intubation was difficult with Mac 3 blade. only the epiglottis was visualized, but a blind intubation was successful. Postoperative pain 07/24/2018 07/29/2018 Overview: History: Post-op Assessment: Controlled Plan: Continue scheduled daily Lidoderm patches; PRN Tylenol and Oxycodone. Atelectasis 07/24/2018 07/26/2018 Overview: Grade 3 airway A/P: Postop bibasilar. Elevated right hemidiaphragm OOB to chair. BPH. Postoperative hypotension 07/24/20182018 Overview: A/P: Arrived on Levo, wean to goal MAP 75-85. Coagulopathy 07/24/2018 07/25/2018 Overview: A/P: Coagulopathy/bleeding intraop, transfused 2plts/2FFP/5PRBC in OR, f/u coags and transfuse as needed. Hypovolemia 07/24/2018 07/25/2018 Overview: A/P: Postop fluid shifts. Volume resuscitate as needed. Pre-op testing 07/23/2018 09/19/2018 Overview: [facility] Surgeon: Thom Soto M.D. Informed Consent Completed: Yes STS Score: CAD: Yes - CAD on Problem List: Yes Is intended procedure a CABG: Yes - is a beta getachew ordered? Yes H & P completed: Yes PA/LAT: Completed CT: Completed Abnormal Follow-up for these incidentally detected lung nodules with a chest CT exam is recommended in 3-6 months. If stable on follow-up imaging, a repeat chest CT exam in 12 months (15-18 months from the initial exam) is recommended MRI: N/A LE US: Completed Cath: Yes - reviewed: Yes EKG: Completed Is patient on Amiodarone? Echo:Pending today EF %: pending today PI's: Completed Carotid: Completed Mapping: Completed Dental: N/A, CABG PFT's: Completed Recent Labs 07/23/18 0835 WBC 8.10 HB 9.3* HCT 31.0* PLT 258 INR 1.0 CREAT 0.94 UA: Normal HCG:N/A ABO/ABO Confirmed: Yes, Positive antibodies Blood ordered: Yes Willing to accept blood: SA Swab: Yes - results: Pending Last Dose of Anticoagulation: Aspirin 81 mg continue Op Note: N/A Pacemaker Check: N/A Implants: no Consults: none DM: No Cardiac Surgical prep: N/A SIGNATURE: Rosalia Prakash APRN.CNP DATE of SERVICE: 07/23/2018 TIME of SERVICE: 2:40 PM CHECKED BY: amber Discharge planning issues 07/23/20182018 Overview: 77 y o m here for CABG. Resides in [place]. to [place] for 55 years. Son Harvey is supportive. Await therapy eval. Chronic left-sided low back pain with left-sided sciatica 12/09/2015 08/18/2021 Esophagitis, unspecified 08/29/2007 011 Unspecified hemorrhoids without mention of compl ication 10/20/2010 Overview: Hemorrhoids Diverticulosis of colon (without mention of hemo rrhage) 10/20/2010 Overview: Diverticulosis Peptic ulcer, unspecified si te, unspecified as acute or chronic, without mention of hemorrhage, perforation, or obstruction 05/30/2007 documented as of this encounter (statuses as of 08/18/2021) [facility]11-[facility]2019 History of Past illness Narrative* Problem Noted Date Resolved Date Ileus 12/20/2018 12/24/2018 Acute blood loss anemia 12/20/2018 12/25/19 19 Acute cholecystitis 12/15/2018 12/24/2018 Transition of care performed with sharing of clinical summary 07/26/2018 09/19/2018 Overview: Indication for Surgery: CAD Preop LVEF: 59% RVF: Normal Postop LVEF: Normal RVF: Normal Cards: [place] EKG: NSR PMH/PSH: Hypothyroid, diverticulitis, GIB, PUD, appendectomy, former smoker, GERD, Barretts, esophageal stricture (9mm on 05/2018 EGD note below) and large hiatal hernia. Airway Difficulty: Grade III view (only epiglottis visible) - No special instrumentation Pacing Wires: Ventricular: Pulled 07/27 Chronological List of Surgeries and Major Events (Diagnosis): (Surgeries in bold characters) 07/24/2018: CABG x 3 (VASQUES to LAD, SVG to RCA, SVG to OM1) OR course: Coagulopathy/bleeding - transfused multiple products in OR CVICU: Hypotension requiring Levo gtt for MAP goal 75-85. A/P: Wires pulled 07/27, MS ohara drain has been removed too. s/p CABG - ASA, BB, statin intolerance (D/w patient and was perhaps 20 years ago his primary MD started a statin. He reports maybe dizziness? I suggested perhaps muscle aches but he is not sure. He denies any anaphylaxis or needing to be hospitalized for any med adverse reactions - will start simvastatin 20mg po daily. Patient aware of S/Sx to report and placed on discharge medication sheet.) GERD/Esophageal strictures s/p dilations, did not do a LUCRECIA in the OR, NO LUCRECIA post-op. Dispo - 77yo male from [place], [place]. CM following. F/U with OPD and Cards made. For D/C today. Discharge Planning: Anticipated Discharge Date: 07/29 Barriers to Discharge: No Barriers to Discharge, Other: NA Care Management Discharge Needs: Needs Prior to Discharge: OT/PT Evaluation Obesity, Class I, BMI 30-34.9 07/26/2018 Overview: History: POA Assessment: Body mass index is 28.62 kg/m . Plan: nutrition consult and lifestyle modification Difficult airway for intubation 07/24/2018 07/29/2018 Overview: Fairly easy mask ventilation. Intubation was difficult with Mac 3 blade. only the epiglottis was visualized, but a blind intubation was successful. Postoperative pain 07/24/2018 07/29/2018 Overview: History: Post-op Assessment: Controlled Plan: Continue scheduled daily Lidoderm patches; PRN Tylenol and Oxycodone. Atelectasis 07/24/2018 07/26/2018 Overview: Grade 3 airway A/P: Postop bibasilar. Elevated right hemidiaphragm OOB to chair. BPH. Postoperative hypotension 07/24/20182018 Overview: A/P: Arrived on Levo, wean to goal MAP 75-85. Coagulopathy 07/24/2018 07/25/2018 Overview: A/P: Coagulopathy/bleeding intraop, transfused 2plts/2FFP/5PRBC in OR, f/u coags and transfuse as needed. Hypovolemia 07/24/2018 07/25/2018 Overview: A/P: Postop fluid shifts. Volume resuscitate as needed. Pre-op testing 07/23/2018 09/19/2018 Overview: [facility] Surgeon: Thom Soto M.D. Informed Consent Completed: Yes STS Score: CAD: Yes - CAD on Problem List: Yes Is intended procedure a CABG: Yes - is a beta getachew ordered? Yes H & P completed: Yes PA/LAT: Completed CT: Completed Abnormal Follow-up for these incidentally detected lung nodules with a chest CT exam is recommended in 3-6 months. If stable on follow-up imaging, a repeat chest CT exam in 12 months (15-18 months from the initial exam) is recommended MRI: N/A LE US: Completed Cath: Yes - reviewed: Yes EKG: Completed Is patient on Amiodarone? Echo:Pending today EF %: pending today PI's: Completed Carotid: Completed Mapping: Completed Dental: N/A, CABG PFT's: Completed Recent Labs 07/23/18 0835 WBC 8.10 HB 9.3* HCT 31.0* PLT 258 INR 1.0 CREAT 0.94 UA: Normal HCG:N/A ABO/ABO Confirmed: Yes, Positive antibodies Blood ordered: Yes Willing to accept blood: SA Swab: Yes - results: Pending Last Dose of Anticoagulation: Aspirin 81 mg continue Op Note: N/A Pacemaker Check: N/A Implants: no Consults: none DM: No Cardiac Surgical prep: N/A SIGNATURE: Rosalia Prakash APRN.CNP DATE of SERVICE: 07/23/2018 TIME of SERVICE: 2:40 PM CHECKED BY: amber Discharge planning issues 07/23/20182018 Overview: 77 y o m here for CABG. Resides in [place]. to [place] for 55 years. Son Harvey is supportive. Await therapy eval. Chronic left-sided low back pain with left-sided sciatica 12/09/2015 08/18/2021 Esophagitis, unspecified 08/29/2007 011 Unspecified hemorrhoids without mention of compl ication 10/20/2010 Overview: Hemorrhoids Diverticulosis of colon (without mention of hemo rrhage) 10/20/2010 Overview: Diverticulosis Peptic ulcer, unspecified si te, unspecified as acute or chronic, without mention of hemorrhage, perforation, or obstruction 05/30/2007 documented as of this encounter (statuses as of 09/21/2021) [facility]11-[facility]2019 History of Past illness Narrative* Problem Noted Date Resolved Date Ileus 12/20/2018 12/24/2018 Acute blood loss anemia 12/20/2018 12/25/19 19 Acute cholecystitis 12/15/2018 12/24/2018 Transition of care performed with sharing of clinical summary 07/26/2018 09/19/2018 Overview: Indication for Surgery: CAD Preop LVEF: 59% RVF: Normal Postop LVEF: Normal RVF: Normal Cards: [place] EKG: NSR PMH/PSH: Hypothyroid, diverticulitis, GIB, PUD, appendectomy, former smoker, GERD, Barretts, esophageal stricture (9mm on 05/2018 EGD note below) and large hiatal hernia. Airway Difficulty: Grade III view (only epiglottis visible) - No special instrumentation Pacing Wires: Ventricular: Pulled 07/27 Chronological List of Surgeries and Major Events (Diagnosis): (Surgeries in bold characters) 07/24/2018: CABG x 3 (VASQUES to LAD, SVG to RCA, SVG to OM1) OR course: Coagulopathy/bleeding - transfused multiple products in OR CVICU: Hypotension requiring Levo gtt for MAP goal 75-85. A/P: Wires pulled 07/27, MS ohara drain has been removed too. s/p CABG - ASA, BB, statin intolerance (D/w patient and was perhaps 20 years ago his primary MD started a statin. He reports maybe dizziness? I suggested perhaps muscle aches but he is not sure. He denies any anaphylaxis or needing to be hospitalized for any med adverse reactions - will start simvastatin 20mg po daily. Patient aware of S/Sx to report and placed on discharge medication sheet.) GERD/Esophageal strictures s/p dilations, did not do a LUCRECIA in the OR, NO LUCRECIA post-op. Dispo - 77yo male from [place], [place]. CM following. F/U with OPD and Cards made. For D/C today. Discharge Planning: Anticipated Discharge Date: 07/29 Barriers to Discharge: No Barriers to Discharge, Other: NA Care Management Discharge Needs: Needs Prior to Discharge: OT/PT Evaluation Obesity, Class I, BMI 30-34.9 07/26/2018 Overview: History: POA Assessment: Body mass index is 28.62 kg/m . Plan: nutrition consult and lifestyle modification Difficult airway for intubation 07/24/2018 07/29/2018 Overview: Fairly easy mask ventilation. Intubation was difficult with Mac 3 blade. only the epiglottis was visualized, but a blind intubation was successful. Postoperative pain 07/24/2018 07/29/2018 Overview: History: Post-op Assessment: Controlled Plan: Continue scheduled daily Lidoderm patches; PRN Tylenol and Oxycodone. Atelectasis 07/24/2018 07/26/2018 Overview: Grade 3 airway A/P: Postop bibasilar. Elevated right hemidiaphragm OOB to chair. BPH. Postoperative hypotension 07/24/20182018 Overview: A/P: Arrived on Levo, wean to goal MAP 75-85. Coagulopathy 07/24/2018 07/25/2018 Overview: A/P: Coagulopathy/bleeding intraop, transfused 2plts/2FFP/5PRBC in OR, f/u coags and transfuse as needed. Hypovolemia 07/24/2018 07/25/2018 Overview: A/P: Postop fluid shifts. Volume resuscitate as needed. Pre-op testing 07/23/2018 09/19/2018 Overview: [facility] Surgeon: Thom Soto M.D. Informed Consent Completed: Yes STS Score: CAD: Yes - CAD on Problem List: Yes Is intended procedure a CABG: Yes - is a beta getachew ordered? Yes H & P completed: Yes PA/LAT: Completed CT: Completed Abnormal Follow-up for these incidentally detected lung nodules with a chest CT exam is recommended in 3-6 months. If stable on follow-up imaging, a repeat chest CT exam in 12 months (15-18 months from the initial exam) is recommended MRI: N/A LE US: Completed Cath: Yes - reviewed: Yes EKG: Completed Is patient on Amiodarone? Echo:Pending today EF %: pending today PI's: Completed Carotid: Completed Mapping: Completed Dental: N/A, CABG PFT's: Completed Recent Labs 07/23/18 0835 WBC 8.10 HB 9.3* HCT 31.0* PLT 258 INR 1.0 CREAT 0.94 UA: Normal HCG:N/A ABO/ABO Confirmed: Yes, Positive antibodies Blood ordered: Yes Willing to accept blood: SA Swab: Yes - results: Pending Last Dose of Anticoagulation: Aspirin 81 mg continue Op Note: N/A Pacemaker Check: N/A Implants: no Consults: none DM: No Cardiac Surgical prep: N/A SIGNATURE: Rosalia Prakash APRN.CNP DATE of SERVICE: 07/23/2018 TIME of SERVICE: 2:40 PM CHECKED BY: amber Discharge planning issues 07/23/20182018 Overview: 77 y o m here for CABG. Resides in [place]. to [place] for 55 years. Son Harvey is supportive. Await therapy eval. Chronic left-sided low back pain with left-sided sciatica 12/09/2015 08/18/2021 Esophagitis, unspecified 08/29/2007 011 Unspecified hemorrhoids without mention of compl ication 10/20/2010 Overview: Hemorrhoids Diverticulosis of colon (without mention of hemo rrhage) 10/20/2010 Overview: Diverticulosis Peptic ulcer, unspecified si te, unspecified as acute or chronic, without mention of hemorrhage, perforation, or obstruction 05/30/2007 documented as of this encounter (statuses as of 11/02/2021) [facility] History of Past illness Narrative* Problem Noted Date Resolved Date Ileus 12/20/2018 12/24/2018 Acute blood loss anemia 12/20/2018 12/25/19 19 Acute cholecystitis 12/15/2018 12/24/2018 Transition of care performed with sharing of clinical summary 07/26/2018 09/19/2018 Overview: Indication for Surgery: CAD Preop LVEF: 59% RVF: Normal Postop LVEF: Normal RVF: Normal Cards: [place] EKG: NSR PMH/PSH: Hypothyroid, diverticulitis, GIB, PUD, appendectomy, former smoker, GERD, Barretts, esophageal stricture (9mm on 05/2018 EGD note below) and large hiatal hernia. Airway Difficulty: Grade III view (only epiglottis visible) - No special instrumentation Pacing Wires: Ventricular: Pulled 07/27 Chronological List of Surgeries and Major Events (Diagnosis): (Surgeries in bold characters) 07/24/2018: CABG x 3 (VASQUES to LAD, SVG to RCA, SVG to OM1) OR course: Coagulopathy/bleeding - transfused multiple products in OR CVICU: Hypotension requiring Levo gtt for MAP goal 75-85. A/P: Wires pulled 07/27, MS ohara drain has been removed too. s/p CABG - ASA, BB, statin intolerance (D/w patient and was perhaps 20 years ago his primary MD started a statin. He reports maybe dizziness? I suggested perhaps muscle aches but he is not sure. He denies any anaphylaxis or needing to be hospitalized for any med adverse reactions - will start simvastatin 20mg po daily. Patient aware of S/Sx to report and placed on discharge medication sheet.) GERD/Esophageal strictures s/p dilations, did not do a LUCRECIA in the OR, NO LUCRECIA post-op. Dispo - 77yo male from [place], [place]. CM following. F/U with OPD and Cards made. For D/C today. Discharge Planning: Anticipated Discharge Date: 07/29 Barriers to Discharge: No Barriers to Discharge, Other: NA Care Management Discharge Needs: Needs Prior to Discharge: OT/PT Evaluation Obesity, Class I, BMI 30-34.9 07/26/2018 Overview: History: POA Assessment: Body mass index is 28.62 kg/m . Plan: nutrition consult and lifestyle modification Difficult airway for intubation 07/24/2018 07/29/2018 Overview: Fairly easy mask ventilation. Intubation was difficult with Mac 3 blade. only the epiglottis was visualized, but a blind intubation was successful. Postoperative pain 07/24/2018 07/29/2018 Overview: History: Post-op Assessment: Controlled Plan: Continue scheduled daily Lidoderm patches; PRN Tylenol and Oxycodone. Atelectasis 07/24/2018 07/26/2018 Overview: Grade 3 airway A/P: Postop bibasilar. Elevated right hemidiaphragm OOB to chair. BPH. Postoperative hypotension 07/24/20182018 Overview: A/P: Arrived on Levo, wean to goal MAP 75-85. Coagulopathy 07/24/2018 07/25/2018 Overview: A/P: Coagulopathy/bleeding intraop, transfused 2plts/2FFP/5PRBC in OR, f/u coags and transfuse as needed. Hypovolemia 07/24/2018 07/25/2018 Overview: A/P: Postop fluid shifts. Volume resuscitate as needed. Pre-op testing 07/23/2018 09/19/2018 Overview: [facility] PRE[facility] Surgeon: Thom Soto M.D. Informed Consent Completed: Yes STS Score: CAD: Yes - CAD on Problem List: Yes Is intended procedure a CABG: Yes - is a beta getachew ordered? Yes H & P completed: Yes PA/LAT: Completed CT: Completed Abnormal Follow-up for these incidentally detected lung nodules with a chest CT exam is recommended in 3-6 months. If stable on follow-up imaging, a repeat chest CT exam in 12 months (15-18 months from the initial exam) is recommended MRI: N/A LE US: Completed Cath: Yes - reviewed: Yes EKG: Completed Is patient on Amiodarone? Echo:Pending today EF %: pending today PI's: Completed Carotid: Completed Mapping: Completed Dental: N/A, CABG PFT's: Completed Recent Labs 07/23/18 0835 WBC 8.10 HB 9.3* HCT 31.0* PLT 258 INR 1.0 CREAT 0.94 UA: Normal HCG:N/A ABO/ABO Confirmed: Yes, Positive antibodies Blood ordered: Yes Willing to accept blood: SA Swab: Yes - results: Pending Last Dose of Anticoagulation: Aspirin 81 mg continue Op Note: N/A Pacemaker Check: N/A Implants: no Consults: none DM: No Cardiac Surgical prep: N/A SIGNATURE: Rosalia Prakash APRN.CNP DATE of SERVICE: 07/23/2018 TIME of SERVICE: 2:40 PM CHECKED BY: amber Discharge planning issues 07/23/20182018 Overview: 77 y o m here for CABG. Resides in [place]. to [place] for 55 years. Son Harvey is supportive. Await therapy eval. Chronic left-sided low back pain with left-sided sciatica 12/09/2015 08/18/2021 Esophagitis, unspecified 08/29/2007 011 Unspecified hemorrhoids without mention of compl ication 10/20/2010 Overview: Hemorrhoids Diverticulosis of colon (without mention of hemo rrhage) 10/20/2010 Overview: Diverticulosis Peptic ulcer, unspecified si te, unspecified as acute or chronic, without mention of hemorrhage, perforation, or obstruction 05/30/2007 documented as of this encounter (statuses as of 11/02/2021) [facility] History of Past illness Narrative* Problem Noted Date Resolved Date Ileus 12/20/2018 12/24/2018 Acute blood loss anemia 12/20/2018 12/25/19 19 Acute cholecystitis 12/15/2018 12/24/2018 Transition of care performed with sharing of clinical summary 07/26/2018 09/19/2018 Overview: Indication for Surgery: CAD Preop LVEF: 59% RVF: Normal Postop LVEF: Normal RVF: Normal Cards: [place] EKG: NSR PMH/PSH: Hypothyroid, diverticulitis, GIB, PUD, appendectomy, former smoker, GERD, Barretts, esophageal stricture (9mm on 05/2018 EGD note below) and large hiatal hernia. Airway Difficulty: Grade III view (only epiglottis visible) - No special instrumentation Pacing Wires: Ventricular: Pulled 07/27 Chronological List of Surgeries and Major Events (Diagnosis): (Surgeries in bold characters) 07/24/2018: CABG x 3 (VASQUES to LAD, SVG to RCA, SVG to OM1) OR course: Coagulopathy/bleeding - transfused multiple products in OR CVICU: Hypotension requiring Levo gtt for MAP goal 75-85. A/P: Wires pulled 07/27, MS mayda drain has been removed too. s/p CABG - ASA, BB, statin intolerance (D/w patient and was perhaps 20 years ago his primary MD started a statin. He reports maybe dizziness? I suggested perhaps muscle aches but he is not sure. He denies any anaphylaxis or needing to be hospitalized for any med adverse reactions - will start simvastatin 20mg po daily. Patient aware of S/Sx to report and placed on discharge medication sheet.) GERD/Esophageal strictures s/p dilations, did not do a LUCRECIA in the OR, NO LUCRECIA post-op. Dispo - 77yo male from [place], [place]. CM following. F/U with OPD and Cards made. For D/C today. Discharge Planning: Anticipated Discharge Date: 07/29 Barriers to Discharge: No Barriers to Discharge, Other: NA Care Management Discharge Needs: Needs Prior to Discharge: OT/PT Evaluation Obesity, Class I, BMI 30-34.9 07/26/2018 Overview: History: POA Assessment: Body mass index is 28.62 kg/m . Plan: nutrition consult and lifestyle modification Difficult airway for intubation 07/24/2018 07/29/2018 Overview: Fairly easy mask ventilation. Intubation was difficult with Mac 3 blade. only the epiglottis was visualized, but a blind intubation was successful. Postoperative pain 07/24/2018 07/29/2018 Overview: History: Post-op Assessment: Controlled Plan: Continue scheduled daily Lidoderm patches; PRN Tylenol and Oxycodone. Atelectasis 07/24/2018 07/26/2018 Overview: Grade 3 airway A/P: Postop bibasilar. Elevated right hemidiaphragm OOB to chair. BPH. Postoperative hypotension 07/24/20182018 Overview: A/P: Arrived on Levo, wean to goal MAP 75-85. Coagulopathy 07/24/2018 07/25/2018 Overview: A/P: Coagulopathy/bleeding intraop, transfused 2plts/2FFP/5PRBC in OR, f/u coags and transfuse as needed. Hypovolemia 07/24/2018 07/25/2018 Overview: A/P: Postop fluid shifts. Volume resuscitate as needed. Pre-op testing 07/23/2018 09/19/2018 Overview: [facility] PRE-[facility] Surgeon: Thom Soto M.D. Informed Consent Completed: Yes STS Score: CAD: Yes - CAD on Problem List: Yes Is intended procedure a CABG: Yes - is a beta getachew ordered? Yes H & P completed: Yes PA/LAT: Completed CT: Completed Abnormal Follow-up for these incidentally detected lung nodules with a chest CT exam is recommended in 3-6 months. If stable on follow-up imaging, a repeat chest CT exam in 12 months (15-18 months from the initial exam) is recommended MRI: N/A LE US: Completed Cath: Yes - reviewed: Yes EKG: Completed Is patient on Amiodarone? Echo:Pending today EF %: pending today PI's: Completed Carotid: Completed Mapping: Completed Dental: N/A, CABG PFT's: Completed Recent Labs 07/23/18 0835 WBC 8.10 HB 9.3* HCT 31.0* PLT 258 INR 1.0 CREAT 0.94 UA: Normal HCG:N/A ABO/ABO Confirmed: Yes, Positive antibodies Blood ordered: Yes Willing to accept blood: SA Swab: Yes - results: Pending Last Dose of Anticoagulation: Aspirin 81 mg continue Op Note: N/A Pacemaker Check: N/A Implants: no Consults: none DM: No Cardiac Surgical prep: N/A SIGNATURE: Rosalia Prakash APRN.CNP DATE of SERVICE: 07/23/2018 TIME of SERVICE: 2:40 PM CHECKED BY: amber Discharge planning issues 07/23/20182018 Overview: 77 y o m here for CABG. Resides in [place]. to [place] for 55 years. Son Harvey is supportive. Await therapy eval. Chronic left-sided low back pain with left-sided sciatica 12/09/2015 08/18/2021 Esophagitis, unspecified 08/29/2007 011 Unspecified hemorrhoids without mention of compl ication 10/20/2010 Overview: Hemorrhoids Diverticulosis of colon (without mention of hemo rrhage) 10/20/2010 Overview: Diverticulosis Peptic ulcer, unspecified si te, unspecified as acute or chronic, without mention of hemorrhage, perforation, or obstruction 05/30/2007 documented as of this encounter (statuses as of 11/29/2021) [facility]11-08-2019 History of Past illness Narrative* Problem Noted Date Resolved Date Ileus 12/20/2018 12/24/2018 Acute blood loss anemia 12/20/2018 12/25/19 19 Acute cholecystitis 12/15/2018 12/24/2018 Transition of care performed with sharing of clinical summary 07/26/2018 09/19/2018 Overview: Indication for Surgery: CAD Preop LVEF: 59% RVF: Normal Postop LVEF: Normal RVF: Normal Cards: [place] EKG: NSR PMH/PSH: Hypothyroid, diverticulitis, GIB, PUD, appendectomy, former smoker, GERD, Barretts, esophageal stricture (9mm on 05/2018 EGD note below) and large hiatal hernia. Airway Difficulty: Grade III view (only epiglottis visible) - No special instrumentation Pacing Wires: Ventricular: Pulled 07/27 Chronological List of Surgeries and Major Events (Diagnosis): (Surgeries in bold characters) 07/24/2018: CABG x 3 (VASQUES to LAD, SVG to RCA, SVG to OM1) OR course: Coagulopathy/bleeding - transfused multiple products in OR CVICU: Hypotension requiring Levo gtt for MAP goal 75-85. A/P: Wires pulled 07/27, MS mayda drain has been removed too. s/p CABG - ASA, BB, statin intolerance (D/w patient and was perhaps 20 years ago his primary MD started a statin. He reports maybe dizziness? I suggested perhaps muscle aches but he is not sure. He denies any anaphylaxis or needing to be hospitalized for any med adverse reactions - will start simvastatin 20mg po daily. Patient aware of S/Sx to report and placed on discharge medication sheet.) GERD/Esophageal strictures s/p dilations, did not do a LUCRECIA in the OR, NO LUCRECIA post-op. Dispo - 77yo male from [place], [place]. CM following. F/U with OPD and Cards made. For D/C today. Discharge Planning: Anticipated Discharge Date: 07/29 Barriers to Discharge: No Barriers to Discharge, Other: NA Care Management Discharge Needs: Needs Prior to Discharge: OT/PT Evaluation Obesity, Class I, BMI 30-34.9 07/26/2018 Overview: History: POA Assessment: Body mass index is 28.62 kg/m . Plan: nutrition consult and lifestyle modification Difficult airway for intubation 07/24/2018 07/29/2018 Overview: Fairly easy mask ventilation. Intubation was difficult with Mac 3 blade. only the epiglottis was visualized, but a blind intubation was successful. Postoperative pain 07/24/2018 07/29/2018 Overview: History: Post-op Assessment: Controlled Plan: Continue scheduled daily Lidoderm patches; PRN Tylenol and Oxycodone. Atelectasis 07/24/2018 07/26/2018 Overview: Grade 3 airway A/P: Postop bibasilar. Elevated right hemidiaphragm OOB to chair. BPH. Postoperative hypotension 07/24/20182018 Overview: A/P: Arrived on Levo, wean to goal MAP 75-85. Coagulopathy 07/24/2018 07/25/2018 Overview: A/P: Coagulopathy/bleeding intraop, transfused 2plts/2FFP/5PRBC in OR, f/u coags and transfuse as needed. Hypovolemia 07/24/2018 07/25/2018 Overview: A/P: Postop fluid shifts. Volume resuscitate as needed. Pre-op testing 07/23/2018 09/19/2018 Overview: [facility] Surgeon: Thom Soto M.D. Informed Consent Completed: Yes STS Score: CAD: Yes - CAD on Problem List: Yes Is intended procedure a CABG: Yes - is a beta getachew ordered? Yes H & P completed: Yes PA/LAT: Completed CT: Completed Abnormal Follow-up for these incidentally detected lung nodules with a chest CT exam is recommended in 3-6 months. If stable on follow-up imaging, a repeat chest CT exam in 12 months (15-18 months from the initial exam) is recommended MRI: N/A LE US: Completed Cath: Yes - reviewed: Yes EKG: Completed Is patient on Amiodarone? Echo:Pending today EF %: pending today PI's: Completed Carotid: Completed Mapping: Completed Dental: N/A, CABG PFT's: Completed Recent Labs 07/23/18 0835 WBC 8.10 HB 9.3* HCT 31.0* PLT 258 INR 1.0 CREAT 0.94 UA: Normal HCG:N/A ABO/ABO Confirmed: Yes, Positive antibodies Blood ordered: Yes Willing to accept blood: SA Swab: Yes - results: Pending Last Dose of Anticoagulation: Aspirin 81 mg continue Op Note: N/A Pacemaker Check: N/A Implants: no Consults: none DM: No Cardiac Surgical prep: N/A SIGNATURE: Rosalia Prakash APRN.CNP DATE of SERVICE: 07/23/2018 TIME of SERVICE: 2:40 PM CHECKED BY: amber Discharge planning issues 07/23/20182018 Overview: 77 y o m here for CABG. Resides in [place]. to [place] for 55 years. Son Harvey is supportive. Await therapy eval. Chronic left-sided low back pain with left-sided sciatica 12/09/2015 08/18/2021 Esophagitis, unspecified 08/29/2007 011 Unspecified hemorrhoids without mention of compl ication 10/20/2010 Overview: Hemorrhoids Diverticulosis of colon (without mention of hemo rrhage) 10/20/2010 Overview: Diverticulosis Peptic ulcer, unspecified si te, unspecified as acute or chronic, without mention of hemorrhage, perforation, or obstruction 05/30/2007 documented as of this encounter (statuses as of 12/07/2021) [facility]11-[facility]2019 History of Past illness Narrative* Problem Noted Date Resolved Date Ileus 12/20/2018 12/24/2018 Acute blood loss anemia 12/20/2018 12/25/19 19 Acute cholecystitis 12/15/2018 12/24/2018 Transition of care performed with sharing of clinical summary 07/26/2018 09/19/2018 Overview: Indication for Surgery: CAD Preop LVEF: 59% RVF: Normal Postop LVEF: Normal RVF: Normal Cards: [place] EKG: NSR PMH/PSH: Hypothyroid, diverticulitis, GIB, PUD, appendectomy, former smoker, GERD, Barretts, esophageal stricture (9mm on 05/2018 EGD note below) and large hiatal hernia. Airway Difficulty: Grade III view (only epiglottis visible) - No special instrumentation Pacing Wires: Ventricular: Pulled 07/27 Chronological List of Surgeries and Major Events (Diagnosis): (Surgeries in bold characters) 07/24/2018: CABG x 3 (VASQUES to LAD, SVG to RCA, SVG to OM1) OR course: Coagulopathy/bleeding - transfused multiple products in OR CVICU: Hypotension requiring Levo gtt for MAP goal 75-85. A/P: Wires pulled 07/27, MS mayda drain has been removed too. s/p CABG - ASA, BB, statin intolerance (D/w patient and was perhaps 20 years ago his primary MD started a statin. He reports maybe dizziness? I suggested perhaps muscle aches but he is not sure. He denies any anaphylaxis or needing to be hospitalized for any med adverse reactions - will start simvastatin 20mg po daily. Patient aware of S/Sx to report and placed on discharge medication sheet.) GERD/Esophageal strictures s/p dilations, did not do a LUCRECIA in the OR, NO LUCRECIA post-op. Dispo - 77yo male from [place], [place]. CM following. F/U with OPD and Cards made. For D/C today. Discharge Planning: Anticipated Discharge Date: 07/29 Barriers to Discharge: No Barriers to Discharge, Other: NA Care Management Discharge Needs: Needs Prior to Discharge: OT/PT Evaluation Obesity, Class I, BMI 30-34.9 07/26/2018 Overview: History: POA Assessment: Body mass index is 28.62 kg/m . Plan: nutrition consult and lifestyle modification Difficult airway for intubation 07/24/2018 07/29/2018 Overview: Fairly easy mask ventilation. Intubation was difficult with Mac 3 blade. only the epiglottis was visualized, but a blind intubation was successful. Postoperative pain 07/24/2018 07/29/2018 Overview: History: Post-op Assessment: Controlled Plan: Continue scheduled daily Lidoderm patches; PRN Tylenol and Oxycodone. Atelectasis 07/24/2018 07/26/2018 Overview: Grade 3 airway A/P: Postop bibasilar. Elevated right hemidiaphragm OOB to chair. BPH. Postoperative hypotension 07/24/20182018 Overview: A/P: Arrived on Levo, wean to goal MAP 75-85. Coagulopathy 07/24/2018 07/25/2018 Overview: A/P: Coagulopathy/bleeding intraop, transfused 2plts/2FFP/5PRBC in OR, f/u coags and transfuse as needed. Hypovolemia 07/24/2018 07/25/2018 Overview: A/P: Postop fluid shifts. Volume resuscitate as needed. Pre-op testing 07/23/2018 09/19/2018 Overview: [facility] Surgeon: Thom Soto M.D. Informed Consent Completed: Yes STS Score: CAD: Yes - CAD on Problem List: Yes Is intended procedure a CABG: Yes - is a beta getachew ordered? Yes H & P completed: Yes PA/LAT: Completed CT: Completed Abnormal Follow-up for these incidentally detected lung nodules with a chest CT exam is recommended in 3-6 months. If stable on follow-up imaging, a repeat chest CT exam in 12 months (15-18 months from the initial exam) is recommended MRI: N/A LE US: Completed Cath: Yes - reviewed: Yes EKG: Completed Is patient on Amiodarone? Echo:Pending today EF %: pending today PI's: Completed Carotid: Completed Mapping: Completed Dental: N/A, CABG PFT's: Completed Recent Labs 07/23/18 0835 WBC 8.10 HB 9.3* HCT 31.0* PLT 258 INR 1.0 CREAT 0.94 UA: Normal HCG:N/A ABO/ABO Confirmed: Yes, Positive antibodies Blood ordered: Yes Willing to accept blood: SA Swab: Yes - results: Pending Last Dose of Anticoagulation: Aspirin 81 mg continue Op Note: N/A Pacemaker Check: N/A Implants: no Consults: none DM: No Cardiac Surgical prep: N/A SIGNATURE: Rosalia Prakash APRN.CNP DATE of SERVICE: 07/23/2018 TIME of SERVICE: 2:40 PM CHECKED BY: amber Discharge planning issues 07/23/20182018 Overview: 77 y o m here for CABG. Resides in [place]. to [place] for 55 years. Son Harvey is supportive. Await therapy eval. Chronic left-sided low back pain with left-sided sciatica 12/09/2015 08/18/2021 Esophagitis, unspecified 08/29/2007 011 Unspecified hemorrhoids without mention of compl ication 10/20/2010 Overview: Hemorrhoids Diverticulosis of colon (without mention of hemo rrhage) 10/20/2010 Overview: Diverticulosis Peptic ulcer, unspecified si te, unspecified as acute or chronic, without mention of hemorrhage, perforation, or obstruction 05/30/2007 documented as of this encounter (statuses as of 12/08/2021) [facility] History of Past illness Narrative* Problem Noted Date Resolved Date Ileus 12/20/2018 12/24/2018 Acute blood loss anemia 12/20/2018 12/25/19 19 Acute cholecystitis 12/15/2018 12/24/2018 Transition of care performed with sharing of clinical summary 07/26/2018 09/19/2018 Overview: Indication for Surgery: CAD Preop LVEF: 59% RVF: Normal Postop LVEF: Normal RVF: Normal Cards: [place] EKG: NSR PMH/PSH: Hypothyroid, diverticulitis, GIB, PUD, appendectomy, former smoker, GERD, Barretts, esophageal stricture (9mm on 05/2018 EGD note below) and large hiatal hernia. Airway Difficulty: Grade III view (only epiglottis visible) - No special instrumentation Pacing Wires: Ventricular: Pulled 07/27 Chronological List of Surgeries and Major Events (Diagnosis): (Surgeries in bold characters) 07/24/2018: CABG x 3 (VASQUES to LAD, SVG to RCA, SVG to OM1) OR course: Coagulopathy/bleeding - transfused multiple products in OR CVICU: Hypotension requiring Levo gtt for MAP goal 75-85. A/P: Wires pulled 07/27, MS ohara drain has been removed too. s/p CABG - ASA, BB, statin intolerance (D/w patient and was perhaps 20 years ago his primary MD started a statin. He reports maybe dizziness? I suggested perhaps muscle aches but he is not sure. He denies any anaphylaxis or needing to be hospitalized for any med adverse reactions - will start simvastatin 20mg po daily. Patient aware of S/Sx to report and placed on discharge medication sheet.) GERD/Esophageal strictures s/p dilations, did not do a LUCRECIA in the OR, NO LUCRECIA post-op. Dispo - 77yo male from [place], [place]. CM following. F/U with OPD and Cards made. For D/C today. Discharge Planning: Anticipated Discharge Date: 07/29 Barriers to Discharge: No Barriers to Discharge, Other: NA Care Management Discharge Needs: Needs Prior to Discharge: OT/PT Evaluation Obesity, Class I, BMI 30-34.9 07/26/2018 Overview: History: POA Assessment: Body mass index is 28.62 kg/m . Plan: nutrition consult and lifestyle modification Difficult airway for intubation 07/24/2018 07/29/2018 Overview: Fairly easy mask ventilation. Intubation was difficult with Mac 3 blade. only the epiglottis was visualized, but a blind intubation was successful. Postoperative pain 07/24/2018 07/29/2018 Overview: History: Post-op Assessment: Controlled Plan: Continue scheduled daily Lidoderm patches; PRN Tylenol and Oxycodone. Atelectasis 07/24/2018 07/26/2018 Overview: Grade 3 airway A/P: Postop bibasilar. Elevated right hemidiaphragm OOB to chair. BPH. Postoperative hypotension 07/24/20182018 Overview: A/P: Arrived on Levo, wean to goal MAP 75-85. Coagulopathy 07/24/2018 07/25/2018 Overview: A/P: Coagulopathy/bleeding intraop, transfused 2plts/2FFP/5PRBC in OR, f/u coags and transfuse as needed. Hypovolemia 07/24/2018 07/25/2018 Overview: A/P: Postop fluid shifts. Volume resuscitate as needed. Pre-op testing 07/23/2018 09/19/2018 Overview: [facility] Surgeon: Thom Soto M.D. Informed Consent Completed: Yes STS Score: CAD: Yes - CAD on Problem List: Yes Is intended procedure a CABG: Yes - is a beta getachew ordered? Yes H & P completed: Yes PA/LAT: Completed CT: Completed Abnormal Follow-up for these incidentally detected lung nodules with a chest CT exam is recommended in 3-6 months. If stable on follow-up imaging, a repeat chest CT exam in 12 months (15-18 months from the initial exam) is recommended MRI: N/A LE US: Completed Cath: Yes - reviewed: Yes EKG: Completed Is patient on Amiodarone? Echo:Pending today EF %: pending today PI's: Completed Carotid: Completed Mapping: Completed Dental: N/A, CABG PFT's: Completed Recent Labs 07/23/18 0835 WBC 8.10 HB 9.3* HCT 31.0* PLT 258 INR 1.0 CREAT 0.94 UA: Normal HCG:N/A ABO/ABO Confirmed: Yes, Positive antibodies Blood ordered: Yes Willing to accept blood: SA Swab: Yes - results: Pending Last Dose of Anticoagulation: Aspirin 81 mg continue Op Note: N/A Pacemaker Check: N/A Implants: no Consults: none DM: No Cardiac Surgical prep: N/A SIGNATURE: Rosalia Prakash APRN.CNP DATE of SERVICE: 07/23/2018 TIME of SERVICE: 2:40 PM CHECKED BY: amber Discharge planning issues 07/23/20182018 Overview: 77 y o m here for CABG. Resides in [place]. to [place] for 55 years. Son Harvey is supportive. Await therapy eval. Chronic left-sided low back pain with left-sided sciatica 12/09/2015 08/18/2021 Esophagitis, unspecified 08/29/2007 011 Unspecified hemorrhoids without mention of compl ication 10/20/2010 Overview: Hemorrhoids Diverticulosis of colon (without mention of hemo rrhage) 10/20/2010 Overview: Diverticulosis Peptic ulcer, unspecified si te, unspecified as acute or chronic, without mention of hemorrhage, perforation, or obstruction 05/30/2007 documented as of this encounter (statuses as of 12/12/2021) [facility] History of Past illness Narrative* Problem Noted Date Resolved Date Ileus 12/20/2018 12/24/2018 Acute blood loss anemia 12/20/2018 12/25/19 19 Acute cholecystitis 12/15/2018 12/24/2018 Transition of care performed with sharing of clinical summary 07/26/2018 09/19/2018 Overview: Indication for Surgery: CAD Preop LVEF: 59% RVF: Normal Postop LVEF: Normal RVF: Normal Cards: [place] EKG: NSR PMH/PSH: Hypothyroid, diverticulitis, GIB, PUD, appendectomy, former smoker, GERD, Barretts, esophageal stricture (9mm on 05/2018 EGD note below) and large hiatal hernia. Airway Difficulty: Grade III view (only epiglottis visible) - No special instrumentation Pacing Wires: Ventricular: Pulled 07/27 Chronological List of Surgeries and Major Events (Diagnosis): (Surgeries in bold characters) 07/24/2018: CABG x 3 (VASQUES to LAD, SVG to RCA, SVG to OM1) OR course: Coagulopathy/bleeding - transfused multiple products in OR CVICU: Hypotension requiring Levo gtt for MAP goal 75-85. A/P: Wires pulled 07/27, MS mayda drain has been removed too. s/p CABG - ASA, BB, statin intolerance (D/w patient and was perhaps 20 years ago his primary MD started a statin. He reports maybe dizziness? I suggested perhaps muscle aches but he is not sure. He denies any anaphylaxis or needing to be hospitalized for any med adverse reactions - will start simvastatin 20mg po daily. Patient aware of S/Sx to report and placed on discharge medication sheet.) GERD/Esophageal strictures s/p dilations, did not do a LUCRECIA in the OR, NO LUCRECIA post-op. Dispo - 77yo male from [place], [place]. CM following. F/U with OPD and Cards made. For D/C today. Discharge Planning: Anticipated Discharge Date: 07/29 Barriers to Discharge: No Barriers to Discharge, Other: NA Care Management Discharge Needs: Needs Prior to Discharge: OT/PT Evaluation Obesity, Class I, BMI 30-34.9 07/26/2018 Overview: History: POA Assessment: Body mass index is 28.62 kg/m . Plan: nutrition consult and lifestyle modification Difficult airway for intubation 07/24/2018 07/29/2018 Overview: Fairly easy mask ventilation. Intubation was difficult with Mac 3 blade. only the epiglottis was visualized, but a blind intubation was successful. Postoperative pain 07/24/2018 07/29/2018 Overview: History: Post-op Assessment: Controlled Plan: Continue scheduled daily Lidoderm patches; PRN Tylenol and Oxycodone. Atelectasis 07/24/2018 07/26/2018 Overview: Grade 3 airway A/P: Postop bibasilar. Elevated right hemidiaphragm OOB to chair. BPH. Postoperative hypotension 07/24/20182018 Overview: A/P: Arrived on Levo, wean to goal MAP 75-85. Coagulopathy 07/24/2018 07/25/2018 Overview: A/P: Coagulopathy/bleeding intraop, transfused 2plts/2FFP/5PRBC in OR, f/u coags and transfuse as needed. Hypovolemia 07/24/2018 07/25/2018 Overview: A/P: Postop fluid shifts. Volume resuscitate as needed. Pre-op testing 07/23/2018 09/19/2018 Overview: [facility] PRE[facility] Surgeon: Thom oSto M.D. Informed Consent Completed: Yes STS Score: CAD: Yes - CAD on Problem List: Yes Is intended procedure a CABG: Yes - is a beta getachew ordered? Yes H & P completed: Yes PA/LAT: Completed CT: Completed Abnormal Follow-up for these incidentally detected lung nodules with a chest CT exam is recommended in 3-6 months. If stable on follow-up imaging, a repeat chest CT exam in 12 months (15-18 months from the initial exam) is recommended MRI: N/A LE US: Completed Cath: Yes - reviewed: Yes EKG: Completed Is patient on Amiodarone? Echo:Pending today EF %: pending today PI's: Completed Carotid: Completed Mapping: Completed Dental: N/A, CABG PFT's: Completed Recent Labs 07/23/18 0835 WBC 8.10 HB 9.3* HCT 31.0* PLT 258 INR 1.0 CREAT 0.94 UA: Normal HCG:N/A ABO/ABO Confirmed: Yes, Positive antibodies Blood ordered: Yes Willing to accept blood: SA Swab: Yes - results: Pending Last Dose of Anticoagulation: Aspirin 81 mg continue Op Note: N/A Pacemaker Check: N/A Implants: no Consults: none DM: No Cardiac Surgical prep: N/A SIGNATURE: Rosalia Prakash APRN.CNP DATE of SERVICE: 07/23/2018 TIME of SERVICE: 2:40 PM CHECKED BY: amber Discharge planning issues 07/23/20182018 Overview: 77 y o m here for CABG. Resides in [place]. to [place] for 55 years. Son Harvey is supportive. Await therapy eval. Chronic left-sided low back pain with left-sided sciatica 12/09/2015 08/18/2021 Esophagitis, unspecified 08/29/2007 011 Unspecified hemorrhoids without mention of compl ication 10/20/2010 Overview: Hemorrhoids Diverticulosis of colon (without mention of hemo rrhage) 10/20/2010 Overview: Diverticulosis Peptic ulcer, unspecified si te, unspecified as acute or chronic, without mention of hemorrhage, perforation, or obstruction 05/30/2007 documented as of this encounter (statuses as of 12/13/2021) [facility] History of Past illness Narrative* Problem Noted Date Resolved Date Ileus 12/20/2018 12/24/2018 Acute blood loss anemia 12/20/2018 12/25/19 19 Acute cholecystitis 12/15/2018 12/24/2018 Transition of care performed with sharing of clinical summary 07/26/2018 09/19/2018 Overview: Indication for Surgery: CAD Preop LVEF: 59% RVF: Normal Postop LVEF: Normal RVF: Normal Cards: [place] EKG: NSR PMH/PSH: Hypothyroid, diverticulitis, GIB, PUD, appendectomy, former smoker, GERD, Barretts, esophageal stricture (9mm on 05/2018 EGD note below) and large hiatal hernia. Airway Difficulty: Grade III view (only epiglottis visible) - No special instrumentation Pacing Wires: Ventricular: Pulled 07/27 Chronological List of Surgeries and Major Events (Diagnosis): (Surgeries in bold characters) 07/24/2018: CABG x 3 (VASQUES to LAD, SVG to RCA, SVG to OM1) OR course: Coagulopathy/bleeding - transfused multiple products in OR CVICU: Hypotension requiring Levo gtt for MAP goal 75-85. A/P: Wires pulled 07/27, MS ohara drain has been removed too. s/p CABG - ASA, BB, statin intolerance (D/w patient and was perhaps 20 years ago his primary MD started a statin. He reports maybe dizziness? I suggested perhaps muscle aches but he is not sure. He denies any anaphylaxis or needing to be hospitalized for any med adverse reactions - will start simvastatin 20mg po daily. Patient aware of S/Sx to report and placed on discharge medication sheet.) GERD/Esophageal strictures s/p dilations, did not do a LUCRECIA in the OR, NO LUCRECIA post-op. Dispo - 77yo male from [place], [place]. CM following. F/U with OPD and Cards made. For D/C today. Discharge Planning: Anticipated Discharge Date: 07/29 Barriers to Discharge: No Barriers to Discharge, Other: NA Care Management Discharge Needs: Needs Prior to Discharge: OT/PT Evaluation Obesity, Class I, BMI 30-34.9 07/26/2018 Overview: History: POA Assessment: Body mass index is 28.62 kg/m . Plan: nutrition consult and lifestyle modification Difficult airway for intubation 07/24/2018 07/29/2018 Overview: Fairly easy mask ventilation. Intubation was difficult with Mac 3 blade. only the epiglottis was visualized, but a blind intubation was successful. Postoperative pain 07/24/2018 07/29/2018 Overview: History: Post-op Assessment: Controlled Plan: Continue scheduled daily Lidoderm patches; PRN Tylenol and Oxycodone. Atelectasis 07/24/2018 07/26/2018 Overview: Grade 3 airway A/P: Postop bibasilar. Elevated right hemidiaphragm OOB to chair. BPH. Postoperative hypotension 07/24/20182018 Overview: A/P: Arrived on Levo, wean to goal MAP 75-85. Coagulopathy 07/24/2018 07/25/2018 Overview: A/P: Coagulopathy/bleeding intraop, transfused 2plts/2FFP/5PRBC in OR, f/u coags and transfuse as needed. Hypovolemia 07/24/2018 07/25/2018 Overview: A/P: Postop fluid shifts. Volume resuscitate as needed. Pre-op testing 07/23/2018 09/19/2018 Overview: [facility] PRE-[facility] Surgeon: Thom Soto M.D. Informed Consent Completed: Yes STS Score: CAD: Yes - CAD on Problem List: Yes Is intended procedure a CABG: Yes - is a beta getachew ordered? Yes H & P completed: Yes PA/LAT: Completed CT: Completed Abnormal Follow-up for these incidentally detected lung nodules with a chest CT exam is recommended in 3-6 months. If stable on follow-up imaging, a repeat chest CT exam in 12 months (15-18 months from the initial exam) is recommended MRI: N/A LE US: Completed Cath: Yes - reviewed: Yes EKG: Completed Is patient on Amiodarone? Echo:Pending today EF %: pending today PI's: Completed Carotid: Completed Mapping: Completed Dental: N/A, CABG PFT's: Completed Recent Labs 07/23/18 0835 WBC 8.10 HB 9.3* HCT 31.0* PLT 258 INR 1.0 CREAT 0.94 UA: Normal HCG:N/A ABO/ABO Confirmed: Yes, Positive antibodies Blood ordered: Yes Willing to accept blood: SA Swab: Yes - results: Pending Last Dose of Anticoagulation: Aspirin 81 mg continue Op Note: N/A Pacemaker Check: N/A Implants: no Consults: none DM: No Cardiac Surgical prep: N/A SIGNATURE: Rosalia Prakash APRN.CNP DATE of SERVICE: 07/23/2018 TIME of SERVICE: 2:40 PM CHECKED BY: amber Discharge planning issues 07/23/20182018 Overview: 77 y o m here for CABG. Resides in [place]. to [place] for 55 years. Son Harvey is supportive. Await therapy eval. Chronic left-sided low back pain with left-sided sciatica 12/09/2015 08/18/2021 Esophagitis, unspecified 08/29/2007 011 Unspecified hemorrhoids without mention of compl ication 10/20/2010 Overview: Hemorrhoids Diverticulosis of colon (without mention of hemo rrhage) 10/20/2010 Overview: Diverticulosis Peptic ulcer, unspecified si te, unspecified as acute or chronic, without mention of hemorrhage, perforation, or obstruction 05/30/2007 documented as of this encounter (statuses as of 12/14/2021) [facility]11-08-2019 History of Past illness Narrative* Problem Noted Date Resolved Date Ileus 12/20/2018 12/24/2018 Acute blood loss anemia 12/20/2018 12/25/19 19 Acute cholecystitis 12/15/2018 12/24/2018 Transition of care performed with sharing of clinical summary 07/26/2018 09/19/2018 Overview: Indication for Surgery: CAD Preop LVEF: 59% RVF: Normal Postop LVEF: Normal RVF: Normal Cards: [place] EKG: NSR PMH/PSH: Hypothyroid, diverticulitis, GIB, PUD, appendectomy, former smoker, GERD, Barretts, esophageal stricture (9mm on 05/2018 EGD note below) and large hiatal hernia. Airway Difficulty: Grade III view (only epiglottis visible) - No special instrumentation Pacing Wires: Ventricular: Pulled 07/27 Chronological List of Surgeries and Major Events (Diagnosis): (Surgeries in bold characters) 07/24/2018: CABG x 3 (VASQUES to LAD, SVG to RCA, SVG to OM1) OR course: Coagulopathy/bleeding - transfused multiple products in OR CVICU: Hypotension requiring Levo gtt for MAP goal 75-85. A/P: Wires pulled 07/27, MS mayda drain has been removed too. s/p CABG - ASA, BB, statin intolerance (D/w patient and was perhaps 20 years ago his primary MD started a statin. He reports maybe dizziness? I suggested perhaps muscle aches but he is not sure. He denies any anaphylaxis or needing to be hospitalized for any med adverse reactions - will start simvastatin 20mg po daily. Patient aware of S/Sx to report and placed on discharge medication sheet.) GERD/Esophageal strictures s/p dilations, did not do a LUCRECIA in the OR, NO LUCRECIA post-op. Dispo - 77yo male from [place], [place]. CM following. F/U with OPD and Cards made. For D/C today. Discharge Planning: Anticipated Discharge Date: 07/29 Barriers to Discharge: No Barriers to Discharge, Other: NA Care Management Discharge Needs: Needs Prior to Discharge: OT/PT Evaluation Obesity, Class I, BMI 30-34.9 07/26/2018 Overview: History: POA Assessment: Body mass index is 28.62 kg/m . Plan: nutrition consult and lifestyle modification Difficult airway for intubation 07/24/2018 07/29/2018 Overview: Fairly easy mask ventilation. Intubation was difficult with Mac 3 blade. only the epiglottis was visualized, but a blind intubation was successful. Postoperative pain 07/24/2018 07/29/2018 Overview: History: Post-op Assessment: Controlled Plan: Continue scheduled daily Lidoderm patches; PRN Tylenol and Oxycodone. Atelectasis 07/24/2018 07/26/2018 Overview: Grade 3 airway A/P: Postop bibasilar. Elevated right hemidiaphragm OOB to chair. BPH. Postoperative hypotension 07/24/20182018 Overview: A/P: Arrived on Levo, wean to goal MAP 75-85. Coagulopathy 07/24/2018 07/25/2018 Overview: A/P: Coagulopathy/bleeding intraop, transfused 2plts/2FFP/5PRBC in OR, f/u coags and transfuse as needed. Hypovolemia 07/24/2018 07/25/2018 Overview: A/P: Postop fluid shifts. Volume resuscitate as needed. Pre-op testing 07/23/2018 09/19/2018 Overview: [facility] Surgeon: Thom Soto M.D. Informed Consent Completed: Yes STS Score: CAD: Yes - CAD on Problem List: Yes Is intended procedure a CABG: Yes - is a beta getachew ordered? Yes H & P completed: Yes PA/LAT: Completed CT: Completed Abnormal Follow-up for these incidentally detected lung nodules with a chest CT exam is recommended in 3-6 months. If stable on follow-up imaging, a repeat chest CT exam in 12 months (15-18 months from the initial exam) is recommended MRI: N/A LE US: Completed Cath: Yes - reviewed: Yes EKG: Completed Is patient on Amiodarone? Echo:Pending today EF %: pending today PI's: Completed Carotid: Completed Mapping: Completed Dental: N/A, CABG PFT's: Completed Recent Labs 07/23/18 0835 WBC 8.10 HB 9.3* HCT 31.0* PLT 258 INR 1.0 CREAT 0.94 UA: Normal HCG:N/A ABO/ABO Confirmed: Yes, Positive antibodies Blood ordered: Yes Willing to accept blood: SA Swab: Yes - results: Pending Last Dose of Anticoagulation: Aspirin 81 mg continue Op Note: N/A Pacemaker Check: N/A Implants: no Consults: none DM: No Cardiac Surgical prep: N/A SIGNATURE: Rosalia Prakash APRN.CNP DATE of SERVICE: 07/23/2018 TIME of SERVICE: 2:40 PM CHECKED BY: amber Discharge planning issues 07/23/20182018 Overview: 77 y o m here for CABG. Resides in [place]. to [place] for 55 years. Son Harvey is supportive. Await therapy eval. Chronic left-sided low back pain with left-sided sciatica 12/09/2015 08/18/2021 Esophagitis, unspecified 08/29/2007 011 Unspecified hemorrhoids without mention of compl ication 10/20/2010 Overview: Hemorrhoids Diverticulosis of colon (without mention of hemo rrhage) 10/20/2010 Overview: Diverticulosis Peptic ulcer, unspecified si te, unspecified as acute or chronic, without mention of hemorrhage, perforation, or obstruction 05/30/2007 documented as of this encounter (statuses as of 12/16/2021) [facility]11-[facility]2019 History of Past illness Narrative* Problem Noted Date Resolved Date Ileus 12/20/2018 12/24/2018 Acute blood loss anemia 12/20/2018 12/25/19 19 Acute cholecystitis 12/15/2018 12/24/2018 Transition of care performed with sharing of clinical summary 07/26/2018 09/19/2018 Overview: Indication for Surgery: CAD Preop LVEF: 59% RVF: Normal Postop LVEF: Normal RVF: Normal Cards: [place] EKG: NSR PMH/PSH: Hypothyroid, diverticulitis, GIB, PUD, appendectomy, former smoker, GERD, Barretts, esophageal stricture (9mm on 05/2018 EGD note below) and large hiatal hernia. Airway Difficulty: Grade III view (only epiglottis visible) - No special instrumentation Pacing Wires: Ventricular: Pulled 07/27 Chronological List of Surgeries and Major Events (Diagnosis): (Surgeries in bold characters) 07/24/2018: CABG x 3 (VASQUES to LAD, SVG to RCA, SVG to OM1) OR course: Coagulopathy/bleeding - transfused multiple products in OR CVICU: Hypotension requiring Levo gtt for MAP goal 75-85. A/P: Wires pulled 07/27, MS ohara drain has been removed too. s/p CABG - ASA, BB, statin intolerance (D/w patient and was perhaps 20 years ago his primary MD started a statin. He reports maybe dizziness? I suggested perhaps muscle aches but he is not sure. He denies any anaphylaxis or needing to be hospitalized for any med adverse reactions - will start simvastatin 20mg po daily. Patient aware of S/Sx to report and placed on discharge medication sheet.) GERD/Esophageal strictures s/p dilations, did not do a LUCRECIA in the OR, NO LUCRECIA post-op. Dispo - 77yo male from [place], [place]. CM following. F/U with OPD and Cards made. For D/C today. Discharge Planning: Anticipated Discharge Date: 07/29 Barriers to Discharge: No Barriers to Discharge, Other: NA Care Management Discharge Needs: Needs Prior to Discharge: OT/PT Evaluation Obesity, Class I, BMI 30-34.9 07/26/2018 Overview: History: POA Assessment: Body mass index is 28.62 kg/m . Plan: nutrition consult and lifestyle modification Difficult airway for intubation 07/24/2018 07/29/2018 Overview: Fairly easy mask ventilation. Intubation was difficult with Mac 3 blade. only the epiglottis was visualized, but a blind intubation was successful. Postoperative pain 07/24/2018 07/29/2018 Overview: History: Post-op Assessment: Controlled Plan: Continue scheduled daily Lidoderm patches; PRN Tylenol and Oxycodone. Atelectasis 07/24/2018 07/26/2018 Overview: Grade 3 airway A/P: Postop bibasilar. Elevated right hemidiaphragm OOB to chair. BPH. Postoperative hypotension 07/24/20182018 Overview: A/P: Arrived on Levo, wean to goal MAP 75-85. Coagulopathy 07/24/2018 07/25/2018 Overview: A/P: Coagulopathy/bleeding intraop, transfused 2plts/2FFP/5PRBC in OR, f/u coags and transfuse as needed. Hypovolemia 07/24/2018 07/25/2018 Overview: A/P: Postop fluid shifts. Volume resuscitate as needed. Pre-op testing 07/23/2018 09/19/2018 Overview: [facility] Surgeon: Thom Soto M.D. Informed Consent Completed: Yes STS Score: CAD: Yes - CAD on Problem List: Yes Is intended procedure a CABG: Yes - is a beta getachew ordered? Yes H & P completed: Yes PA/LAT: Completed CT: Completed Abnormal Follow-up for these incidentally detected lung nodules with a chest CT exam is recommended in 3-6 months. If stable on follow-up imaging, a repeat chest CT exam in 12 months (15-18 months from the initial exam) is recommended MRI: N/A LE US: Completed Cath: Yes - reviewed: Yes EKG: Completed Is patient on Amiodarone? Echo:Pending today EF %: pending today PI's: Completed Carotid: Completed Mapping: Completed Dental: N/A, CABG PFT's: Completed Recent Labs 07/23/18 0835 WBC 8.10 HB 9.3* HCT 31.0* PLT 258 INR 1.0 CREAT 0.94 UA: Normal HCG:N/A ABO/ABO Confirmed: Yes, Positive antibodies Blood ordered: Yes Willing to accept blood: SA Swab: Yes - results: Pending Last Dose of Anticoagulation: Aspirin 81 mg continue Op Note: N/A Pacemaker Check: N/A Implants: no Consults: none DM: No Cardiac Surgical prep: N/A SIGNATURE: Rosalia Prakash APRN.CNP DATE of SERVICE: 07/23/2018 TIME of SERVICE: 2:40 PM CHECKED BY: amber Discharge planning issues 07/23/20182018 Overview: 77 y o m here for CABG. Resides in [place]. to [place] for 55 years. Son Harvey is supportive. Await therapy eval. Chronic left-sided low back pain with left-sided sciatica 12/09/2015 08/18/2021 Esophagitis, unspecified 08/29/2007 011 Unspecified hemorrhoids without mention of compl ication 10/20/2010 Overview: Hemorrhoids Diverticulosis of colon (without mention of hemo rrhage) 10/20/2010 Overview: Diverticulosis Peptic ulcer, unspecified si te, unspecified as acute or chronic, without mention of hemorrhage, perforation, or obstruction 05/30/2007 documented as of this encounter (statuses as of 2021) [facility]11-[facility]2019 History of Past illness Narrative* Problem Noted Date Resolved Date Ileus 12/20/2018 12/24/2018 Acute blood loss anemia 12/20/2018 12/25/19 19 Acute cholecystitis 12/15/2018 12/24/2018 Transition of care performed with sharing of clinical summary 07/26/2018 09/19/2018 Overview: Indication for Surgery: CAD Preop LVEF: 59% RVF: Normal Postop LVEF: Normal RVF: Normal Cards: [place] EKG: NSR PMH/PSH: Hypothyroid, diverticulitis, GIB, PUD, appendectomy, former smoker, GERD, Barretts, esophageal stricture (9mm on 05/2018 EGD note below) and large hiatal hernia. Airway Difficulty: Grade III view (only epiglottis visible) - No special instrumentation Pacing Wires: Ventricular: Pulled 07/27 Chronological List of Surgeries and Major Events (Diagnosis): (Surgeries in bold characters) 07/24/2018: CABG x 3 (VASQUES to LAD, SVG to RCA, SVG to OM1) OR course: Coagulopathy/bleeding - transfused multiple products in OR CVICU: Hypotension requiring Levo gtt for MAP goal 75-85. A/P: Wires pulled 07/27, MS ohara drain has been removed too. s/p CABG - ASA, BB, statin intolerance (D/w patient and was perhaps 20 years ago his primary MD started a statin. He reports maybe dizziness? I suggested perhaps muscle aches but he is not sure. He denies any anaphylaxis or needing to be hospitalized for any med adverse reactions - will start simvastatin 20mg po daily. Patient aware of S/Sx to report and placed on discharge medication sheet.) GERD/Esophageal strictures s/p dilations, did not do a LUCRECIA in the OR, NO LUCRECIA post-op. Dispo - 77yo male from [place], [place]. CM following. F/U with OPD and Cards made. For D/C today. Discharge Planning: Anticipated Discharge Date: 07/29 Barriers to Discharge: No Barriers to Discharge, Other: NA Care Management Discharge Needs: Needs Prior to Discharge: OT/PT Evaluation Obesity, Class I, BMI 30-34.9 07/26/2018 Overview: History: POA Assessment: Body mass index is 28.62 kg/m . Plan: nutrition consult and lifestyle modification Difficult airway for intubation 07/24/2018 07/29/2018 Overview: Fairly easy mask ventilation. Intubation was difficult with Mac 3 blade. only the epiglottis was visualized, but a blind intubation was successful. Postoperative pain 07/24/2018 07/29/2018 Overview: History: Post-op Assessment: Controlled Plan: Continue scheduled daily Lidoderm patches; PRN Tylenol and Oxycodone. Atelectasis 07/24/2018 07/26/2018 Overview: Grade 3 airway A/P: Postop bibasilar. Elevated right hemidiaphragm OOB to chair. BPH. Postoperative hypotension 07/24/20182018 Overview: A/P: Arrived on Levo, wean to goal MAP 75-85. Coagulopathy 07/24/2018 07/25/2018 Overview: A/P: Coagulopathy/bleeding intraop, transfused 2plts/2FFP/5PRBC in OR, f/u coags and transfuse as needed. Hypovolemia 07/24/2018 07/25/2018 Overview: A/P: Postop fluid shifts. Volume resuscitate as needed. Pre-op testing 07/23/2018 09/19/2018 Overview: [facility] Surgeon: Thom Soto M.D. Informed Consent Completed: Yes STS Score: CAD: Yes - CAD on Problem List: Yes Is intended procedure a CABG: Yes - is a beta getachew ordered? Yes H & P completed: Yes PA/LAT: Completed CT: Completed Abnormal Follow-up for these incidentally detected lung nodules with a chest CT exam is recommended in 3-6 months. If stable on follow-up imaging, a repeat chest CT exam in 12 months (15-18 months from the initial exam) is recommended MRI: N/A LE US: Completed Cath: Yes - reviewed: Yes EKG: Completed Is patient on Amiodarone? Echo:Pending today EF %: pending today PI's: Completed Carotid: Completed Mapping: Completed Dental: N/A, CABG PFT's: Completed Recent Labs 07/23/18 0835 WBC 8.10 HB 9.3* HCT 31.0* PLT 258 INR 1.0 CREAT 0.94 UA: Normal HCG:N/A ABO/ABO Confirmed: Yes, Positive antibodies Blood ordered: Yes Willing to accept blood: SA Swab: Yes - results: Pending Last Dose of Anticoagulation: Aspirin 81 mg continue Op Note: N/A Pacemaker Check: N/A Implants: no Consults: none DM: No Cardiac Surgical prep: N/A SIGNATURE: Rosalia Prakash APRN.CNP DATE of SERVICE: 07/23/2018 TIME of SERVICE: 2:40 PM CHECKED BY: amber Discharge planning issues 07/23/20182018 Overview: 77 y o m here for CABG. Resides in [place]. to [place] for 55 years. Son Harvey is supportive. Await therapy eval. Chronic left-sided low back pain with left-sided sciatica 12/09/2015 08/18/2021 Esophagitis, unspecified 08/29/2007 011 Unspecified hemorrhoids without mention of compl ication 10/20/2010 Overview: Hemorrhoids Diverticulosis of colon (without mention of hemo rrhage) 10/20/2010 Overview: Diverticulosis Peptic ulcer, unspecified si te, unspecified as acute or chronic, without mention of hemorrhage, perforation, or obstruction 05/30/2007 documented as of this encounter (statuses as of 12/26/2021) [facility] History of Past illness Narrative* Problem Noted Date Resolved Date Ileus 12/20/2018 12/24/2018 Acute blood loss anemia 12/20/2018 12/25/19 19 Acute cholecystitis 12/15/2018 12/24/2018 Transition of care performed with sharing of clinical summary 07/26/2018 09/19/2018 Overview: Indication for Surgery: CAD Preop LVEF: 59% RVF: Normal Postop LVEF: Normal RVF: Normal Cards: [place] EKG: NSR PMH/PSH: Hypothyroid, diverticulitis, GIB, PUD, appendectomy, former smoker, GERD, Barretts, esophageal stricture (9mm on 05/2018 EGD note below) and large hiatal hernia. Airway Difficulty: Grade III view (only epiglottis visible) - No special instrumentation Pacing Wires: Ventricular: Pulled 07/27 Chronological List of Surgeries and Major Events (Diagnosis): (Surgeries in bold characters) 07/24/2018: CABG x 3 (VASQUES to LAD, SVG to RCA, SVG to OM1) OR course: Coagulopathy/bleeding - transfused multiple products in OR CVICU: Hypotension requiring Levo gtt for MAP goal 75-85. A/P: Wires pulled 07/27, MS mayda drain has been removed too. s/p CABG - ASA, BB, statin intolerance (D/w patient and was perhaps 20 years ago his primary MD started a statin. He reports maybe dizziness? I suggested perhaps muscle aches but he is not sure. He denies any anaphylaxis or needing to be hospitalized for any med adverse reactions - will start simvastatin 20mg po daily. Patient aware of S/Sx to report and placed on discharge medication sheet.) GERD/Esophageal strictures s/p dilations, did not do a LUCRECIA in the OR, NO LUCRECIA post-op. Dispo - 77yo male from [place], [place]. CM following. F/U with OPD and Cards made. For D/C today. Discharge Planning: Anticipated Discharge Date: 07/29 Barriers to Discharge: No Barriers to Discharge, Other: NA Care Management Discharge Needs: Needs Prior to Discharge: OT/PT Evaluation Obesity, Class I, BMI 30-34.9 07/26/2018 Overview: History: POA Assessment: Body mass index is 28.62 kg/m . Plan: nutrition consult and lifestyle modification Difficult airway for intubation 07/24/2018 07/29/2018 Overview: Fairly easy mask ventilation. Intubation was difficult with Mac 3 blade. only the epiglottis was visualized, but a blind intubation was successful. Postoperative pain 07/24/2018 07/29/2018 Overview: History: Post-op Assessment: Controlled Plan: Continue scheduled daily Lidoderm patches; PRN Tylenol and Oxycodone. Atelectasis 07/24/2018 07/26/2018 Overview: Grade 3 airway A/P: Postop bibasilar. Elevated right hemidiaphragm OOB to chair. BPH. Postoperative hypotension 07/24/20182018 Overview: A/P: Arrived on Levo, wean to goal MAP 75-85. Coagulopathy 07/24/2018 07/25/2018 Overview: A/P: Coagulopathy/bleeding intraop, transfused 2plts/2FFP/5PRBC in OR, f/u coags and transfuse as needed. Hypovolemia 07/24/2018 07/25/2018 Overview: A/P: Postop fluid shifts. Volume resuscitate as needed. Pre-op testing 07/23/2018 09/19/2018 Overview: [facility] PRE[facility] Surgeon: Thom Soto M.D. Informed Consent Completed: Yes STS Score: CAD: Yes - CAD on Problem List: Yes Is intended procedure a CABG: Yes - is a beta getachew ordered? Yes H & P completed: Yes PA/LAT: Completed CT: Completed Abnormal Follow-up for these incidentally detected lung nodules with a chest CT exam is recommended in 3-6 months. If stable on follow-up imaging, a repeat chest CT exam in 12 months (15-18 months from the initial exam) is recommended MRI: N/A LE US: Completed Cath: Yes - reviewed: Yes EKG: Completed Is patient on Amiodarone? Echo:Pending today EF %: pending today PI's: Completed Carotid: Completed Mapping: Completed Dental: N/A, CABG PFT's: Completed Recent Labs 07/23/18 0835 WBC 8.10 HB 9.3* HCT 31.0* PLT 258 INR 1.0 CREAT 0.94 UA: Normal HCG:N/A ABO/ABO Confirmed: Yes, Positive antibodies Blood ordered: Yes Willing to accept blood: SA Swab: Yes - results: Pending Last Dose of Anticoagulation: Aspirin 81 mg continue Op Note: N/A Pacemaker Check: N/A Implants: no Consults: none DM: No Cardiac Surgical prep: N/A SIGNATURE: Rosalia Prakash APRN.CNP DATE of SERVICE: 07/23/2018 TIME of SERVICE: 2:40 PM CHECKED BY: amber Discharge planning issues 07/23/20182018 Overview: 77 y o m here for CABG. Resides in [place]. to [place] for 55 years. Son Harvey is supportive. Await therapy eval. Chronic left-sided low back pain with left-sided sciatica 12/09/2015 08/18/2021 Esophagitis, unspecified 08/29/2007 011 Unspecified hemorrhoids without mention of compl ication 10/20/2010 Overview: Hemorrhoids Diverticulosis of colon (without mention of hemo rrhage) 10/20/2010 Overview: Diverticulosis Peptic ulcer, unspecified si te, unspecified as acute or chronic, without mention of hemorrhage, perforation, or obstruction 05/30/2007 documented as of this encounter (statuses as of 12/29/2021) [facility] History of Past illness Narrative* Problem Noted Date Resolved Date Ileus 12/20/2018 12/24/2018 Acute blood loss anemia 12/20/2018 12/25/19 19 Acute cholecystitis 12/15/2018 12/24/2018 Transition of care performed with sharing of clinical summary 07/26/2018 09/19/2018 Overview: Indication for Surgery: CAD Preop LVEF: 59% RVF: Normal Postop LVEF: Normal RVF: Normal Cards: [place] EKG: NSR PMH/PSH: Hypothyroid, diverticulitis, GIB, PUD, appendectomy, former smoker, GERD, Barretts, esophageal stricture (9mm on 05/2018 EGD note below) and large hiatal hernia. Airway Difficulty: Grade III view (only epiglottis visible) - No special instrumentation Pacing Wires: Ventricular: Pulled 07/27 Chronological List of Surgeries and Major Events (Diagnosis): (Surgeries in bold characters) 07/24/2018: CABG x 3 (VASQUES to LAD, SVG to RCA, SVG to OM1) OR course: Coagulopathy/bleeding - transfused multiple products in OR CVICU: Hypotension requiring Levo gtt for MAP goal 75-85. A/P: Wires pulled 07/27, MS ohara drain has been removed too. s/p CABG - ASA, BB, statin intolerance (D/w patient and was perhaps 20 years ago his primary MD started a statin. He reports maybe dizziness? I suggested perhaps muscle aches but he is not sure. He denies any anaphylaxis or needing to be hospitalized for any med adverse reactions - will start simvastatin 20mg po daily. Patient aware of S/Sx to report and placed on discharge medication sheet.) GERD/Esophageal strictures s/p dilations, did not do a LUCRECIA in the OR, NO LUCRECIA post-op. Dispo - 77yo male from [place], [place]. CM following. F/U with OPD and Cards made. For D/C today. Discharge Planning: Anticipated Discharge Date: 07/29 Barriers to Discharge: No Barriers to Discharge, Other: NA Care Management Discharge Needs: Needs Prior to Discharge: OT/PT Evaluation Obesity, Class I, BMI 30-34.9 07/26/2018 Overview: History: POA Assessment: Body mass index is 28.62 kg/m . Plan: nutrition consult and lifestyle modification Difficult airway for intubation 07/24/2018 07/29/2018 Overview: Fairly easy mask ventilation. Intubation was difficult with Mac 3 blade. only the epiglottis was visualized, but a blind intubation was successful. Postoperative pain 07/24/2018 07/29/2018 Overview: History: Post-op Assessment: Controlled Plan: Continue scheduled daily Lidoderm patches; PRN Tylenol and Oxycodone. Atelectasis 07/24/2018 07/26/2018 Overview: Grade 3 airway A/P: Postop bibasilar. Elevated right hemidiaphragm OOB to chair. BPH. Postoperative hypotension 07/24/20182018 Overview: A/P: Arrived on Levo, wean to goal MAP 75-85. Coagulopathy 07/24/2018 07/25/2018 Overview: A/P: Coagulopathy/bleeding intraop, transfused 2plts/2FFP/5PRBC in OR, f/u coags and transfuse as needed. Hypovolemia 07/24/2018 07/25/2018 Overview: A/P: Postop fluid shifts. Volume resuscitate as needed. Pre-op testing 07/23/2018 09/19/2018 Overview: [facility] PRE-[facility] Surgeon: Thom Soto M.D. Informed Consent Completed: Yes STS Score: CAD: Yes - CAD on Problem List: Yes Is intended procedure a CABG: Yes - is a beta getachew ordered? Yes H & P completed: Yes PA/LAT: Completed CT: Completed Abnormal Follow-up for these incidentally detected lung nodules with a chest CT exam is recommended in 3-6 months. If stable on follow-up imaging, a repeat chest CT exam in 12 months (15-18 months from the initial exam) is recommended MRI: N/A LE US: Completed Cath: Yes - reviewed: Yes EKG: Completed Is patient on Amiodarone? Echo:Pending today EF %: pending today PI's: Completed Carotid: Completed Mapping: Completed Dental: N/A, CABG PFT's: Completed Recent Labs 07/23/18 0835 WBC 8.10 HB 9.3* HCT 31.0* PLT 258 INR 1.0 CREAT 0.94 UA: Normal HCG:N/A ABO/ABO Confirmed: Yes, Positive antibodies Blood ordered: Yes Willing to accept blood: SA Swab: Yes - results: Pending Last Dose of Anticoagulation: Aspirin 81 mg continue Op Note: N/A Pacemaker Check: N/A Implants: no Consults: none DM: No Cardiac Surgical prep: N/A SIGNATURE: Rosalia Prakash APRN.CNP DATE of SERVICE: 07/23/2018 TIME of SERVICE: 2:40 PM CHECKED BY: amber Discharge planning issues 07/23/20182018 Overview: 77 y o m here for CABG. Resides in [place]. to [place] for 55 years. Son Harvey is supportive. Await therapy eval. Chronic left-sided low back pain with left-sided sciatica 12/09/2015 08/18/2021 Esophagitis, unspecified 08/29/2007 011 Unspecified hemorrhoids without mention of compl ication 10/20/2010 Overview: Hemorrhoids Diverticulosis of colon (without mention of hemo rrhage) 10/20/2010 Overview: Diverticulosis Peptic ulcer, unspecified si te, unspecified as acute or chronic, without mention of hemorrhage, perforation, or obstruction 05/30/2007 documented as of this encounter (statuses as of 12/30/2021) [facility]11-08-2019 History of Past illness Narrative* Problem Noted Date Resolved Date Ileus 12/20/2018 12/24/2018 Acute blood loss anemia 12/20/2018 12/25/19 19 Acute cholecystitis 12/15/2018 12/24/2018 Transition of care performed with sharing of clinical summary 07/26/2018 09/19/2018 Overview: Indication for Surgery: CAD Preop LVEF: 59% RVF: Normal Postop LVEF: Normal RVF: Normal Cards: [place] EKG: NSR PMH/PSH: Hypothyroid, diverticulitis, GIB, PUD, appendectomy, former smoker, GERD, Barretts, esophageal stricture (9mm on 05/2018 EGD note below) and large hiatal hernia. Airway Difficulty: Grade III view (only epiglottis visible) - No special instrumentation Pacing Wires: Ventricular: Pulled 07/27 Chronological List of Surgeries and Major Events (Diagnosis): (Surgeries in bold characters) 07/24/2018: CABG x 3 (VASQUES to LAD, SVG to RCA, SVG to OM1) OR course: Coagulopathy/bleeding - transfused multiple products in OR CVICU: Hypotension requiring Levo gtt for MAP goal 75-85. A/P: Wires pulled 07/27, MS mayda drain has been removed too. s/p CABG - ASA, BB, statin intolerance (D/w patient and was perhaps 20 years ago his primary MD started a statin. He reports maybe dizziness? I suggested perhaps muscle aches but he is not sure. He denies any anaphylaxis or needing to be hospitalized for any med adverse reactions - will start simvastatin 20mg po daily. Patient aware of S/Sx to report and placed on discharge medication sheet.) GERD/Esophageal strictures s/p dilations, did not do a LUCRECIA in the OR, NO LUCRECIA post-op. Dispo - 77yo male from [place], [place]. CM following. F/U with OPD and Cards made. For D/C today. Discharge Planning: Anticipated Discharge Date: 07/29 Barriers to Discharge: No Barriers to Discharge, Other: NA Care Management Discharge Needs: Needs Prior to Discharge: OT/PT Evaluation Obesity, Class I, BMI 30-34.9 07/26/2018 Overview: History: POA Assessment: Body mass index is 28.62 kg/m . Plan: nutrition consult and lifestyle modification Difficult airway for intubation 07/24/2018 07/29/2018 Overview: Fairly easy mask ventilation. Intubation was difficult with Mac 3 blade. only the epiglottis was visualized, but a blind intubation was successful. Postoperative pain 07/24/2018 07/29/2018 Overview: History: Post-op Assessment: Controlled Plan: Continue scheduled daily Lidoderm patches; PRN Tylenol and Oxycodone. Atelectasis 07/24/2018 07/26/2018 Overview: Grade 3 airway A/P: Postop bibasilar. Elevated right hemidiaphragm OOB to chair. BPH. Postoperative hypotension 07/24/20182018 Overview: A/P: Arrived on Levo, wean to goal MAP 75-85. Coagulopathy 07/24/2018 07/25/2018 Overview: A/P: Coagulopathy/bleeding intraop, transfused 2plts/2FFP/5PRBC in OR, f/u coags and transfuse as needed. Hypovolemia 07/24/2018 07/25/2018 Overview: A/P: Postop fluid shifts. Volume resuscitate as needed. Pre-op testing 07/23/2018 09/19/2018 Overview: [facility] Surgeon: Thom Soto M.D. Informed Consent Completed: Yes STS Score: CAD: Yes - CAD on Problem List: Yes Is intended procedure a CABG: Yes - is a beta getachew ordered? Yes H & P completed: Yes PA/LAT: Completed CT: Completed Abnormal Follow-up for these incidentally detected lung nodules with a chest CT exam is recommended in 3-6 months. If stable on follow-up imaging, a repeat chest CT exam in 12 months (15-18 months from the initial exam) is recommended MRI: N/A LE US: Completed Cath: Yes - reviewed: Yes EKG: Completed Is patient on Amiodarone? Echo:Pending today EF %: pending today PI's: Completed Carotid: Completed Mapping: Completed Dental: N/A, CABG PFT's: Completed Recent Labs 07/23/18 0835 WBC 8.10 HB 9.3* HCT 31.0* PLT 258 INR 1.0 CREAT 0.94 UA: Normal HCG:N/A ABO/ABO Confirmed: Yes, Positive antibodies Blood ordered: Yes Willing to accept blood: SA Swab: Yes - results: Pending Last Dose of Anticoagulation: Aspirin 81 mg continue Op Note: N/A Pacemaker Check: N/A Implants: no Consults: none DM: No Cardiac Surgical prep: N/A SIGNATURE: Rosalia Prakash APRN.CNP DATE of SERVICE: 07/23/2018 TIME of SERVICE: 2:40 PM CHECKED BY: amber Discharge planning issues 07/23/20182018 Overview: 77 y o m here for CABG. Resides in [place]. to [place] for 55 years. Son Harvey is supportive. Await therapy eval. Chronic left-sided low back pain with left-sided sciatica 12/09/2015 08/18/2021 Esophagitis, unspecified 08/29/2007 011 Unspecified hemorrhoids without mention of compl ication 10/20/2010 Overview: Hemorrhoids Diverticulosis of colon (without mention of hemo rrhage) 10/20/2010 Overview: Diverticulosis Peptic ulcer, unspecified si te, unspecified as acute or chronic, without mention of hemorrhage, perforation, or obstruction 05/30/2007 documented as of this encounter (statuses as of 01/03/2022) [facility]11-08-2019 History of Past illness Narrative* Problem Noted Date Resolved Date Ileus 12/20/2018 12/24/2018 Acute blood loss anemia 12/20/2018 12/25/19 19 Acute cholecystitis 12/15/2018 12/24/2018 Transition of care performed with sharing of clinical summary 07/26/2018 09/19/2018 Overview: Indication for Surgery: CAD Preop LVEF: 59% RVF: Normal Postop LVEF: Normal RVF: Normal Cards: [place] EKG: NSR PMH/PSH: Hypothyroid, diverticulitis, GIB, PUD, appendectomy, former smoker, GERD, Barretts, esophageal stricture (9mm on 05/2018 EGD note below) and large hiatal hernia. Airway Difficulty: Grade III view (only epiglottis visible) - No special instrumentation Pacing Wires: Ventricular: Pulled 07/27 Chronological List of Surgeries and Major Events (Diagnosis): (Surgeries in bold characters) 07/24/2018: CABG x 3 (VASQUES to LAD, SVG to RCA, SVG to OM1) OR course: Coagulopathy/bleeding - transfused multiple products in OR CVICU: Hypotension requiring Levo gtt for MAP goal 75-85. A/P: Wires pulled 07/27, MS ohara drain has been removed too. s/p CABG - ASA, BB, statin intolerance (D/w patient and was perhaps 20 years ago his primary MD started a statin. He reports maybe dizziness? I suggested perhaps muscle aches but he is not sure. He denies any anaphylaxis or needing to be hospitalized for any med adverse reactions - will start simvastatin 20mg po daily. Patient aware of S/Sx to report and placed on discharge medication sheet.) GERD/Esophageal strictures s/p dilations, did not do a LUCRECIA in the OR, NO LUCRECIA post-op. Dispo - 77yo male from [place], [place]. CM following. F/U with OPD and Cards made. For D/C today. Discharge Planning: Anticipated Discharge Date: 07/29 Barriers to Discharge: No Barriers to Discharge, Other: NA Care Management Discharge Needs: Needs Prior to Discharge: OT/PT Evaluation Obesity, Class I, BMI 30-34.9 07/26/2018 Overview: History: POA Assessment: Body mass index is 28.62 kg/m . Plan: nutrition consult and lifestyle modification Difficult airway for intubation 07/24/2018 07/29/2018 Overview: Fairly easy mask ventilation. Intubation was difficult with Mac 3 blade. only the epiglottis was visualized, but a blind intubation was successful. Postoperative pain 07/24/2018 07/29/2018 Overview: History: Post-op Assessment: Controlled Plan: Continue scheduled daily Lidoderm patches; PRN Tylenol and Oxycodone. Atelectasis 07/24/2018 07/26/2018 Overview: Grade 3 airway A/P: Postop bibasilar. Elevated right hemidiaphragm OOB to chair. BPH. Postoperative hypotension 07/24/20182018 Overview: A/P: Arrived on Levo, wean to goal MAP 75-85. Coagulopathy 07/24/2018 07/25/2018 Overview: A/P: Coagulopathy/bleeding intraop, transfused 2plts/2FFP/5PRBC in OR, f/u coags and transfuse as needed. Hypovolemia 07/24/2018 07/25/2018 Overview: A/P: Postop fluid shifts. Volume resuscitate as needed. Pre-op testing 07/23/2018 09/19/2018 Overview: [facility] Surgeon: Thom Soto M.D. Informed Consent Completed: Yes STS Score: CAD: Yes - CAD on Problem List: Yes Is intended procedure a CABG: Yes - is a beta getachew ordered? Yes H & P completed: Yes PA/LAT: Completed CT: Completed Abnormal Follow-up for these incidentally detected lung nodules with a chest CT exam is recommended in 3-6 months. If stable on follow-up imaging, a repeat chest CT exam in 12 months (15-18 months from the initial exam) is recommended MRI: N/A LE US: Completed Cath: Yes - reviewed: Yes EKG: Completed Is patient on Amiodarone? Echo:Pending today EF %: pending today PI's: Completed Carotid: Completed Mapping: Completed Dental: N/A, CABG PFT's: Completed Recent Labs 07/23/18 0835 WBC 8.10 HB 9.3* HCT 31.0* PLT 258 INR 1.0 CREAT 0.94 UA: Normal HCG:N/A ABO/ABO Confirmed: Yes, Positive antibodies Blood ordered: Yes Willing to accept blood: SA Swab: Yes - results: Pending Last Dose of Anticoagulation: Aspirin 81 mg continue Op Note: N/A Pacemaker Check: N/A Implants: no Consults: none DM: No Cardiac Surgical prep: N/A SIGNATURE: Rosalia Prakash APRN.CNP DATE of SERVICE: 07/23/2018 TIME of SERVICE: 2:40 PM CHECKED BY: [email or web address] Discharge planning issues 07/23/20182018 Overview: 77 y o m here for CABG. Resides in [place]. to [place] for 55 years. Son Harvey is supportive. Await therapy eval. Chronic left-sided low back pain with left-sided sciatica 12/09/2015 08/18/2021 Esophagitis, unspecified 08/29/2007 011 Unspecified hemorrhoids without mention of compl ication 10/20/2010 Overview: Hemorrhoids Diverticulosis of colon (without mention of hemo rrhage) 10/20/2010 Overview: Diverticulosis Peptic ulcer, unspecified si te, unspecified as acute or chronic, without mention of hemorrhage, perforation, or obstruction 05/30/2007 documented as of this encounter (statuses as of 01/06/2022) [facility]11-08-2019 History of Past illness Narrative* Problem Noted Date Resolved Date Ileus 12/20/2018 12/24/2018 Acute blood loss anemia 12/20/2018 12/25/19 19 Acute cholecystitis 12/15/2018 12/24/2018 Transition of care performed with sharing of clinical summary 07/26/2018 09/19/2018 Overview: Indication for Surgery: CAD Preop LVEF: 59% RVF: Normal Postop LVEF: Normal RVF: Normal Cards: [place] EKG: NSR PMH/PSH: Hypothyroid, diverticulitis, GIB, PUD, appendectomy, former smoker, GERD, Barretts, esophageal stricture (9mm on 05/2018 EGD note below) and large hiatal hernia. Airway Difficulty: Grade III view (only epiglottis visible) - No special instrumentation Pacing Wires: Ventricular: Pulled 07/27 Chronological List of Surgeries and Major Events (Diagnosis): (Surgeries in bold characters) 07/24/2018: CABG x 3 (VASQUES to LAD, SVG to RCA, SVG to OM1) OR course: Coagulopathy/bleeding - transfused multiple products in OR CVICU: Hypotension requiring Levo gtt for MAP goal 75-85. A/P: Wires pulled 07/27, MS ohara drain has been removed too. s/p CABG - ASA, BB, statin intolerance (D/w patient and was perhaps 20 years ago his primary MD started a statin. He reports maybe dizziness? I suggested perhaps muscle aches but he is not sure. He denies any anaphylaxis or needing to be hospitalized for any med adverse reactions - will start simvastatin 20mg po daily. Patient aware of S/Sx to report and placed on discharge medication sheet.) GERD/Esophageal strictures s/p dilations, did not do a LUCRECIA in the OR, NO LUCRECIA post-op. Dispo - 77yo male from [place], [place]. CM following. F/U with OPD and Cards made. For D/C today. Discharge Planning: Anticipated Discharge Date: 07/29 Barriers to Discharge: No Barriers to Discharge, Other: NA Care Management Discharge Needs: Needs Prior to Discharge: OT/PT Evaluation Obesity, Class I, BMI 30-34.9 07/26/2018 Overview: History: POA Assessment: Body mass index is 28.62 kg/m . Plan: nutrition consult and lifestyle modification Difficult airway for intubation 07/24/2018 07/29/2018 Overview: Fairly easy mask ventilation. Intubation was difficult with Mac 3 blade. only the epiglottis was visualized, but a blind intubation was successful. Postoperative pain 07/24/2018 07/29/2018 Overview: History: Post-op Assessment: Controlled Plan: Continue scheduled daily Lidoderm patches; PRN Tylenol and Oxycodone. Atelectasis 07/24/2018 07/26/2018 Overview: Grade 3 airway A/P: Postop bibasilar. Elevated right hemidiaphragm OOB to chair. BPH. Postoperative hypotension 07/24/20182018 Overview: A/P: Arrived on Levo, wean to goal MAP 75-85. Coagulopathy 07/24/2018 07/25/2018 Overview: A/P: Coagulopathy/bleeding intraop, transfused 2plts/2FFP/5PRBC in OR, f/u coags and transfuse as needed. Hypovolemia 07/24/2018 07/25/2018 Overview: A/P: Postop fluid shifts. Volume resuscitate as needed. Pre-op testing 07/23/2018 09/19/2018 Overview: [facility] Surgeon: Thom Soto M.D. Informed Consent Completed: Yes STS Score: CAD: Yes - CAD on Problem List: Yes Is intended procedure a CABG: Yes - is a beta getachew ordered? Yes H & P completed: Yes PA/LAT: Completed CT: Completed Abnormal Follow-up for these incidentally detected lung nodules with a chest CT exam is recommended in 3-6 months. If stable on follow-up imaging, a repeat chest CT exam in 12 months (15-18 months from the initial exam) is recommended MRI: N/A LE US: Completed Cath: Yes - reviewed: Yes EKG: Completed Is patient on Amiodarone? Echo:Pending today EF %: pending today PI's: Completed Carotid: Completed Mapping: Completed Dental: N/A, CABG PFT's: Completed Recent Labs 07/23/18 0835 WBC 8.10 HB 9.3* HCT 31.0* PLT 258 INR 1.0 CREAT 0.94 UA: Normal HCG:N/A ABO/ABO Confirmed: Yes, Positive antibodies Blood ordered: Yes Willing to accept blood: SA Swab: Yes - results: Pending Last Dose of Anticoagulation: Aspirin 81 mg continue Op Note: N/A Pacemaker Check: N/A Implants: no Consults: none DM: No Cardiac Surgical prep: N/A SIGNATURE: Rosalia Prakash APRN.CNP DATE of SERVICE: 07/23/2018 TIME of SERVICE: 2:40 PM CHECKED BY: [email or web address] Discharge planning issues 07/23/20182018 Overview: 77 y o m here for CABG. Resides in [place]. to [place] for 55 years. Son Harvey is supportive. Await therapy eval. Chronic left-sided low back pain with left-sided sciatica 12/09/2015 08/18/2021 Esophagitis, unspecified 08/29/2007 011 Unspecified hemorrhoids without mention of compl ication 10/20/2010 Overview: Hemorrhoids Diverticulosis of colon (without mention of hemo rrhage) 10/20/2010 Overview: Diverticulosis Peptic ulcer, unspecified si te, unspecified as acute or chronic, without mention of hemorrhage, perforation, or obstruction 05/30/2007 documented as of this encounter (statuses as of 01/09/2022) [facility]11-[facility]-2019 History of Past illness Narrative* Problem Noted Date Resolved Date Ileus 12/20/2018 12/24/2018 Acute blood loss anemia 12/20/2018 12/25/19 19 Acute cholecystitis 12/15/2018 12/24/2018 Transition of care performed with sharing of clinical summary 07/26/2018 09/19/2018 Overview: Indication for Surgery: CAD Preop LVEF: 59% RVF: Normal Postop LVEF: Normal RVF: Normal Cards: [place] EKG: NSR PMH/PSH: Hypothyroid, diverticulitis, GIB, PUD, appendectomy, former smoker, GERD, Barretts, esophageal stricture (9mm on 05/2018 EGD note below) and large hiatal hernia. Airway Difficulty: Grade III view (only epiglottis visible) - No special instrumentation Pacing Wires: Ventricular: Pulled 07/27 Chronological List of Surgeries and Major Events (Diagnosis): (Surgeries in bold characters) 07/24/2018: CABG x 3 (VASQUES to LAD, SVG to RCA, SVG to OM1) OR course: Coagulopathy/bleeding - transfused multiple products in OR CVICU: Hypotension requiring Levo gtt for MAP goal 75-85. A/P: Wires pulled 07/27, MS mayda drain has been removed too. s/p CABG - ASA, BB, statin intolerance (D/w patient and was perhaps 20 years ago his primary MD started a statin. He reports maybe dizziness? I suggested perhaps muscle aches but he is not sure. He denies any anaphylaxis or needing to be hospitalized for any med adverse reactions - will start simvastatin 20mg po daily. Patient aware of S/Sx to report and placed on discharge medication sheet.) GERD/Esophageal strictures s/p dilations, did not do a LUCRECIA in the OR, NO LUCRECIA post-op. Dispo - 77yo male from [place], [place]. CM following. F/U with OPD and Cards made. For D/C today. Discharge Planning: Anticipated Discharge Date: 07/29 Barriers to Discharge: No Barriers to Discharge, Other: NA Care Management Discharge Needs: Needs Prior to Discharge: OT/PT Evaluation Obesity, Class I, BMI 30-34.9 07/26/2018 Overview: History: POA Assessment: Body mass index is 28.62 kg/m . Plan: nutrition consult and lifestyle modification Difficult airway for intubation 07/24/2018 07/29/2018 Overview: Fairly easy mask ventilation. Intubation was difficult with Mac 3 blade. only the epiglottis was visualized, but a blind intubation was successful. Postoperative pain 07/24/2018 07/29/2018 Overview: History: Post-op Assessment: Controlled Plan: Continue scheduled daily Lidoderm patches; PRN Tylenol and Oxycodone. Atelectasis 07/24/2018 07/26/2018 Overview: Grade 3 airway A/P: Postop bibasilar. Elevated right hemidiaphragm OOB to chair. BPH. Postoperative hypotension 07/24/20182018 Overview: A/P: Arrived on Levo, wean to goal MAP 75-85. Coagulopathy 07/24/2018 07/25/2018 Overview: A/P: Coagulopathy/bleeding intraop, transfused 2plts/2FFP/5PRBC in OR, f/u coags and transfuse as needed. Hypovolemia 07/24/2018 07/25/2018 Overview: A/P: Postop fluid shifts. Volume resuscitate as needed. Pre-op testing 07/23/2018 09/19/2018 Overview: [facility] PRE[facility] Surgeon: Thom Soto M.D. Informed Consent Completed: Yes STS Score: CAD: Yes - CAD on Problem List: Yes Is intended procedure a CABG: Yes - is a beta getachew ordered? Yes H & P completed: Yes PA/LAT: Completed CT: Completed Abnormal Follow-up for these incidentally detected lung nodules with a chest CT exam is recommended in 3-6 months. If stable on follow-up imaging, a repeat chest CT exam in 12 months (15-18 months from the initial exam) is recommended MRI: N/A LE US: Completed Cath: Yes - reviewed: Yes EKG: Completed Is patient on Amiodarone? Echo:Pending today EF %: pending today PI's: Completed Carotid: Completed Mapping: Completed Dental: N/A, CABG PFT's: Completed Recent Labs 07/23/18 0835 WBC 8.10 HB 9.3* HCT 31.0* PLT 258 INR 1.0 CREAT 0.94 UA: Normal HCG:N/A ABO/ABO Confirmed: Yes, Positive antibodies Blood ordered: Yes Willing to accept blood: SA Swab: Yes - results: Pending Last Dose of Anticoagulation: Aspirin 81 mg continue Op Note: N/A Pacemaker Check: N/A Implants: no Consults: none DM: No Cardiac Surgical prep: N/A SIGNATURE: Rosalia Prakash APRN.CNP DATE of SERVICE: 07/23/2018 TIME of SERVICE: 2:40 PM CHECKED BY: amber Discharge planning issues 07/23/20182018 Overview: 77 y o m here for CABG. Resides in [place]. to [place] for 55 years. Son Harvey is supportive. Await therapy eval. Chronic left-sided low back pain with left-sided sciatica 12/09/2015 08/18/2021 Esophagitis, unspecified 08/29/2007 011 Unspecified hemorrhoids without mention of compl ication 10/20/2010 Overview: Hemorrhoids Diverticulosis of colon (without mention of hemo rrhage) 10/20/2010 Overview: Diverticulosis Peptic ulcer, unspecified si te, unspecified as acute or chronic, without mention of hemorrhage, perforation, or obstruction 05/30/2007 documented as of this encounter (statuses as of 01/11/2022) [facility] History of Past illness Narrative* Problem Noted Date Resolved Date Ileus 12/20/2018 12/24/2018 Acute blood loss anemia 12/20/2018 12/25/19 19 Acute cholecystitis 12/15/2018 12/24/2018 Transition of care performed with sharing of clinical summary 07/26/2018 09/19/2018 Overview: Indication for Surgery: CAD Preop LVEF: 59% RVF: Normal Postop LVEF: Normal RVF: Normal Cards: [place] EKG: NSR PMH/PSH: Hypothyroid, diverticulitis, GIB, PUD, appendectomy, former smoker, GERD, Barretts, esophageal stricture (9mm on 05/2018 EGD note below) and large hiatal hernia. Airway Difficulty: Grade III view (only epiglottis visible) - No special instrumentation Pacing Wires: Ventricular: Pulled 07/27 Chronological List of Surgeries and Major Events (Diagnosis): (Surgeries in bold characters) 07/24/2018: CABG x 3 (VASQUES to LAD, SVG to RCA, SVG to OM1) OR course: Coagulopathy/bleeding - transfused multiple products in OR CVICU: Hypotension requiring Levo gtt for MAP goal 75-85. A/P: Wires pulled 07/27, MS mayda drain has been removed too. s/p CABG - ASA, BB, statin intolerance (D/w patient and was perhaps 20 years ago his primary MD started a statin. He reports maybe dizziness? I suggested perhaps muscle aches but he is not sure. He denies any anaphylaxis or needing to be hospitalized for any med adverse reactions - will start simvastatin 20mg po daily. Patient aware of S/Sx to report and placed on discharge medication sheet.) GERD/Esophageal strictures s/p dilations, did not do a LUCRECIA in the OR, NO LUCRECIA post-op. Dispo - 77yo male from [place], [place]. CM following. F/U with OPD and Cards made. For D/C today. Discharge Planning: Anticipated Discharge Date: 07/29 Barriers to Discharge: No Barriers to Discharge, Other: NA Care Management Discharge Needs: Needs Prior to Discharge: OT/PT Evaluation Obesity, Class I, BMI 30-34.9 07/26/2018 Overview: History: POA Assessment: Body mass index is 28.62 kg/m . Plan: nutrition consult and lifestyle modification Difficult airway for intubation 07/24/2018 07/29/2018 Overview: Fairly easy mask ventilation. Intubation was difficult with Mac 3 blade. only the epiglottis was visualized, but a blind intubation was successful. Postoperative pain 07/24/2018 07/29/2018 Overview: History: Post-op Assessment: Controlled Plan: Continue scheduled daily Lidoderm patches; PRN Tylenol and Oxycodone. Atelectasis 07/24/2018 07/26/2018 Overview: Grade 3 airway A/P: Postop bibasilar. Elevated right hemidiaphragm OOB to chair. BPH. Postoperative hypotension 07/24/20182018 Overview: A/P: Arrived on Levo, wean to goal MAP 75-85. Coagulopathy 07/24/2018 07/25/2018 Overview: A/P: Coagulopathy/bleeding intraop, transfused 2plts/2FFP/5PRBC in OR, f/u coags and transfuse as needed. Hypovolemia 07/24/2018 07/25/2018 Overview: A/P: Postop fluid shifts. Volume resuscitate as needed. Pre-op testing 07/23/2018 09/19/2018 Overview: [facility] PRE[facility] Surgeon: Thom Soto M.D. Informed Consent Completed: Yes STS Score: CAD: Yes - CAD on Problem List: Yes Is intended procedure a CABG: Yes - is a beta getachew ordered? Yes H & P completed: Yes PA/LAT: Completed CT: Completed Abnormal Follow-up for these incidentally detected lung nodules with a chest CT exam is recommended in 3-6 months. If stable on follow-up imaging, a repeat chest CT exam in 12 months (15-18 months from the initial exam) is recommended MRI: N/A LE US: Completed Cath: Yes - reviewed: Yes EKG: Completed Is patient on Amiodarone? Echo:Pending today EF %: pending today PI's: Completed Carotid: Completed Mapping: Completed Dental: N/A, CABG PFT's: Completed Recent Labs 07/23/18 0835 WBC 8.10 HB 9.3* HCT 31.0* PLT 258 INR 1.0 CREAT 0.94 UA: Normal HCG:N/A ABO/ABO Confirmed: Yes, Positive antibodies Blood ordered: Yes Willing to accept blood: SA Swab: Yes - results: Pending Last Dose of Anticoagulation: Aspirin 81 mg continue Op Note: N/A Pacemaker Check: N/A Implants: no Consults: none DM: No Cardiac Surgical prep: N/A SIGNATURE: Rosalia Prakash APRN.CNP DATE of SERVICE: 07/23/2018 TIME of SERVICE: 2:40 PM CHECKED BY: amber Discharge planning issues 07/23/20182018 Overview: 77 y o m here for CABG. Resides in [place]. to [place] for 55 years. Son Harvey is supportive. Await therapy eval. Chronic left-sided low back pain with left-sided sciatica 12/09/2015 08/18/2021 Esophagitis, unspecified 08/29/2007 011 Unspecified hemorrhoids without mention of compl ication 10/20/2010 Overview: Hemorrhoids Diverticulosis of colon (without mention of hemo rrhage) 10/20/2010 Overview: Diverticulosis Peptic ulcer, unspecified si te, unspecified as acute or chronic, without mention of hemorrhage, perforation, or obstruction 05/30/2007 documented as of this encounter (statuses as of 01/17/2022) [facility]11-08-2019 History of Past illness Narrative* Problem Noted Date Resolved Date Ileus 12/20/2018 12/24/2018 Acute blood loss anemia 12/20/2018 12/25/19 19 Acute cholecystitis 12/15/2018 12/24/2018 Transition of care performed with sharing of clinical summary 07/26/2018 09/19/2018 Overview: Indication for Surgery: CAD Preop LVEF: 59% RVF: Normal Postop LVEF: Normal RVF: Normal Cards: [place] EKG: NSR PMH/PSH: Hypothyroid, diverticulitis, GIB, PUD, appendectomy, former smoker, GERD, Barretts, esophageal stricture (9mm on 05/2018 EGD note below) and large hiatal hernia. Airway Difficulty: Grade III view (only epiglottis visible) - No special instrumentation Pacing Wires: Ventricular: Pulled 07/27 Chronological List of Surgeries and Major Events (Diagnosis): (Surgeries in bold characters) 07/24/2018: CABG x 3 (VASQUES to LAD, SVG to RCA, SVG to OM1) OR course: Coagulopathy/bleeding - transfused multiple products in OR CVICU: Hypotension requiring Levo gtt for MAP goal 75-85. A/P: Wires pulled 07/27, MS ohara drain has been removed too. s/p CABG - ASA, BB, statin intolerance (D/w patient and was perhaps 20 years ago his primary MD started a statin. He reports maybe dizziness? I suggested perhaps muscle aches but he is not sure. He denies any anaphylaxis or needing to be hospitalized for any med adverse reactions - will start simvastatin 20mg po daily. Patient aware of S/Sx to report and placed on discharge medication sheet.) GERD/Esophageal strictures s/p dilations, did not do a LUCRECIA in the OR, NO LUCRECIA post-op. Dispo - 77yo male from [place], [place]. CM following. F/U with OPD and Cards made. For D/C today. Discharge Planning: Anticipated Discharge Date: 07/29 Barriers to Discharge: No Barriers to Discharge, Other: NA Care Management Discharge Needs: Needs Prior to Discharge: OT/PT Evaluation Obesity, Class I, BMI 30-34.9 07/26/2018 Overview: History: POA Assessment: Body mass index is 28.62 kg/m . Plan: nutrition consult and lifestyle modification Difficult airway for intubation 07/24/2018 07/29/2018 Overview: Fairly easy mask ventilation. Intubation was difficult with Mac 3 blade. only the epiglottis was visualized, but a blind intubation was successful. Postoperative pain 07/24/2018 07/29/2018 Overview: History: Post-op Assessment: Controlled Plan: Continue scheduled daily Lidoderm patches; PRN Tylenol and Oxycodone. Atelectasis 07/24/2018 07/26/2018 Overview: Grade 3 airway A/P: Postop bibasilar. Elevated right hemidiaphragm OOB to chair. BPH. Postoperative hypotension 07/24/20182018 Overview: A/P: Arrived on Levo, wean to goal MAP 75-85. Coagulopathy 07/24/2018 07/25/2018 Overview: A/P: Coagulopathy/bleeding intraop, transfused 2plts/2FFP/5PRBC in OR, f/u coags and transfuse as needed. Hypovolemia 07/24/2018 07/25/2018 Overview: A/P: Postop fluid shifts. Volume resuscitate as needed. Pre-op testing 07/23/2018 09/19/2018 Overview: [facility] Surgeon: Thom Soto M.D. Informed Consent Completed: Yes STS Score: CAD: Yes - CAD on Problem List: Yes Is intended procedure a CABG: Yes - is a beta getachew ordered? Yes H & P completed: Yes PA/LAT: Completed CT: Completed Abnormal Follow-up for these incidentally detected lung nodules with a chest CT exam is recommended in 3-6 months. If stable on follow-up imaging, a repeat chest CT exam in 12 months (15-18 months from the initial exam) is recommended MRI: N/A LE US: Completed Cath: Yes - reviewed: Yes EKG: Completed Is patient on Amiodarone? Echo:Pending today EF %: pending today PI's: Completed Carotid: Completed Mapping: Completed Dental: N/A, CABG PFT's: Completed Recent Labs 07/23/18 0835 WBC 8.10 HB 9.3* HCT 31.0* PLT 258 INR 1.0 CREAT 0.94 UA: Normal HCG:N/A ABO/ABO Confirmed: Yes, Positive antibodies Blood ordered: Yes Willing to accept blood: SA Swab: Yes - results: Pending Last Dose of Anticoagulation: Aspirin 81 mg continue Op Note: N/A Pacemaker Check: N/A Implants: no Consults: none DM: No Cardiac Surgical prep: N/A SIGNATURE: Rosalia Prakash APRN.CNP DATE of SERVICE: 07/23/2018 TIME of SERVICE: 2:40 PM CHECKED BY: amber Discharge planning issues 07/23/20182018 Overview: 77 y o m here for CABG. Resides in [place]. to [place] for 55 years. Son Harvey is supportive. Await therapy eval. Chronic left-sided low back pain with left-sided sciatica 12/09/2015 08/18/2021 Esophagitis, unspecified 08/29/2007 011 Unspecified hemorrhoids without mention of compl ication 10/20/2010 Overview: Hemorrhoids Diverticulosis of colon (without mention of hemo rrhage) 10/20/2010 Overview: Diverticulosis Peptic ulcer, unspecified si te, unspecified as acute or chronic, without mention of hemorrhage, perforation, or obstruction 05/30/2007 documented as of this encounter (statuses as of 01/19/2022) [facility]11-08-2019 History of Past illness Narrative* Problem Noted Date Resolved Date Ileus 12/20/2018 12/24/2018 Acute blood loss anemia 12/20/2018 12/25/19 19 Acute cholecystitis 12/15/2018 12/24/2018 Transition of care performed with sharing of clinical summary 07/26/2018 09/19/2018 Overview: Indication for Surgery: CAD Preop LVEF: 59% RVF: Normal Postop LVEF: Normal RVF: Normal Cards: [place] EKG: NSR PMH/PSH: Hypothyroid, diverticulitis, GIB, PUD, appendectomy, former smoker, GERD, Barretts, esophageal stricture (9mm on 05/2018 EGD note below) and large hiatal hernia. Airway Difficulty: Grade III view (only epiglottis visible) - No special instrumentation Pacing Wires: Ventricular: Pulled 07/27 Chronological List of Surgeries and Major Events (Diagnosis): (Surgeries in bold characters) 07/24/2018: CABG x 3 (VASQUES to LAD, SVG to RCA, SVG to OM1) OR course: Coagulopathy/bleeding - transfused multiple products in OR CVICU: Hypotension requiring Levo gtt for MAP goal 75-85. A/P: Wires pulled 07/27, MS mayda drain has been removed too. s/p CABG - ASA, BB, statin intolerance (D/w patient and was perhaps 20 years ago his primary MD started a statin. He reports maybe dizziness? I suggested perhaps muscle aches but he is not sure. He denies any anaphylaxis or needing to be hospitalized for any med adverse reactions - will start simvastatin 20mg po daily. Patient aware of S/Sx to report and placed on discharge medication sheet.) GERD/Esophageal strictures s/p dilations, did not do a LUCRECIA in the OR, NO LUCRECIA post-op. Dispo - 77yo male from [place], [place]. CM following. F/U with OPD and Cards made. For D/C today. Discharge Planning: Anticipated Discharge Date: 07/29 Barriers to Discharge: No Barriers to Discharge, Other: NA Care Management Discharge Needs: Needs Prior to Discharge: OT/PT Evaluation Obesity, Class I, BMI 30-34.9 07/26/2018 Overview: History: POA Assessment: Body mass index is 28.62 kg/m . Plan: nutrition consult and lifestyle modification Difficult airway for intubation 07/24/2018 07/29/2018 Overview: Fairly easy mask ventilation. Intubation was difficult with Mac 3 blade. only the epiglottis was visualized, but a blind intubation was successful. Postoperative pain 07/24/2018 07/29/2018 Overview: History: Post-op Assessment: Controlled Plan: Continue scheduled daily Lidoderm patches; PRN Tylenol and Oxycodone. Atelectasis 07/24/2018 07/26/2018 Overview: Grade 3 airway A/P: Postop bibasilar. Elevated right hemidiaphragm OOB to chair. BPH. Postoperative hypotension 07/24/20182018 Overview: A/P: Arrived on Levo, wean to goal MAP 75-85. Coagulopathy 07/24/2018 07/25/2018 Overview: A/P: Coagulopathy/bleeding intraop, transfused 2plts/2FFP/5PRBC in OR, f/u coags and transfuse as needed. Hypovolemia 07/24/2018 07/25/2018 Overview: A/P: Postop fluid shifts. Volume resuscitate as needed. Pre-op testing 07/23/2018 09/19/2018 Overview: [facility] PRE-[facility] Surgeon: Thom Soto M.D. Informed Consent Completed: Yes STS Score: CAD: Yes - CAD on Problem List: Yes Is intended procedure a CABG: Yes - is a beta getachew ordered? Yes H & P completed: Yes PA/LAT: Completed CT: Completed Abnormal Follow-up for these incidentally detected lung nodules with a chest CT exam is recommended in 3-6 months. If stable on follow-up imaging, a repeat chest CT exam in 12 months (15-18 months from the initial exam) is recommended MRI: N/A LE US: Completed Cath: Yes - reviewed: Yes EKG: Completed Is patient on Amiodarone? Echo:Pending today EF %: pending today PI's: Completed Carotid: Completed Mapping: Completed Dental: N/A, CABG PFT's: Completed Recent Labs 07/23/18 0835 WBC 8.10 HB 9.3* HCT 31.0* PLT 258 INR 1.0 CREAT 0.94 UA: Normal HCG:N/A ABO/ABO Confirmed: Yes, Positive antibodies Blood ordered: Yes Willing to accept blood: SA Swab: Yes - results: Pending Last Dose of Anticoagulation: Aspirin 81 mg continue Op Note: N/A Pacemaker Check: N/A Implants: no Consults: none DM: No Cardiac Surgical prep: N/A SIGNATURE: Rosalia Prakash APRN.CNP DATE of SERVICE: 07/23/2018 TIME of SERVICE: 2:40 PM CHECKED BY: amber Discharge planning issues 07/23/20182018 Overview: 77 y o m here for CABG. Resides in [place]. to [place] for 55 years. Son Harvey is supportive. Await therapy eval. Chronic left-sided low back pain with left-sided sciatica 12/09/2015 08/18/2021 Esophagitis, unspecified 08/29/2007 011 Unspecified hemorrhoids without mention of compl ication 10/20/2010 Overview: Hemorrhoids Diverticulosis of colon (without mention of hemo rrhage) 10/20/2010 Overview: Diverticulosis Peptic ulcer, unspecified si te, unspecified as acute or chronic, without mention of hemorrhage, perforation, or obstruction 05/30/2007 documented as of this encounter (statuses as of 01/24/2022) [facility]11-08-2019 History of Past illness Narrative* Problem Noted Date Diagnosed Date Resolved Date Ileus 12/20/2018 12/24/2018 Acute blood loss anemia 12/20/201812/13 Acute cholecystitis 12/15/2018 12/25/19 19 Transition of care performed with sharing of clinical summary 07/26/2018 09/19/2018 Overview: Indication for Surgery: CAD Preop LVEF: 59% RVF: Normal Postop LVEF: Normal RVF: Normal Cards: [place] EKG: NSR PMH/PSH: Hypothyroid, diverticulitis, GIB, PUD, appendectomy, former smoker, GERD, Barretts, esophageal stricture (9mm on 05/2018 EGD note below) and large hiatal hernia. Airway Difficulty: Grade III view (only epiglottis visible) - No special instrumentation Pacing Wires: Ventricular: Pulled 07/27 Chronological List of Surgeries and Major Events (Diagnosis): (Surgeries in bold characters) 07/24/2018: CABG x 3 (VASQUES to LAD, SVG to RCA, SVG to OM1) OR course: Coagulopathy/bleeding - transfused multiple products in OR CVICU: Hypotension requiring Levo gtt for MAP goal 75-85. A/P: Wires pulled 07/27, MS ohara drain has been removed too. s/p CABG - ASA, BB, statin intolerance (D/w patient and was perhaps 20 years ago his primary MD started a statin. He reports maybe dizziness? I suggested perhaps muscle aches but he is not sure. He denies any anaphylaxis or needing to be hospitalized for any med adverse reactions - will start simvastatin 20mg po daily. Patient aware of S/Sx to report and placed on discharge medication sheet.) GERD/Esophageal strictures s/p dilations, did not do a LUCRECIA in the OR, NO LUCRECIA post-op. Dispo - 77yo male from [place], [place]. CM following. F/U with OPD and Cards made. For D/C today. Discharge Planning: Anticipated Discharge Date: 07/29 Barriers to Discharge: No Barriers to Discharge, Other: NA Care Management Discharge Needs: Needs Prior to Discharge: OT/PT Evaluation Obesity, Class I, BMI 30-34.9 07/26/2018 09/19/2018 Overview: History: POA Assessment: Body mass index is 28.62 kg/m . Plan: nutrition consult and lifestyle modification Difficult airway for intubation 07/24/2018 07/29/2018 Overview: Fairly easy mask ventilation. Intubation was difficult with Mac 3 blade. only the epiglottis was visualized, but a blind intubation was successful. Atelectasis 07/24/2018 07/26/2018 Overview: Grade 3 airway A/P: Postop bibasilar. Elevated right hemidiaphragm OOB to chair. BPH. Postoperative hypotension 07/24/2018 Overview: A/P: Arrived on Levo, wean to goal MAP 75-85. Coagulopathy 07/24/2018 07/25/2018 Overview: A/P: Coagulopathy/bleeding intraop, transfused 2plts/2FFP/5PRBC in OR, f/u coags and transfuse as needed. Hypovolemia 07/24/2018 07/25/2018 Overview: A/P: Postop fluid shifts. Volume resuscitate as needed. Pre-op testing 07/23/2018 09/19/2018 Overview: [facility] PRE[facility] Surgeon: Thom Soto M.D. Informed Consent Completed: Yes STS Score: CAD: Yes - CAD on Problem List: Yes Is intended procedure a CABG: Yes - is a beta getachew ordered? Yes H & P completed: Yes PA/LAT: Completed CT: Completed Abnormal Follow-up for these incidentally detected lung nodules with a chest CT exam is recommended in 3-6 months. If stable on follow-up imaging, a repeat chest CT exam in 12 months (15-18 months from the initial exam) is recommended MRI: N/A LE US: Completed Cath: Yes - reviewed: Yes EKG: Completed Is patient on Amiodarone? Echo:Pending today EF %: pending today PI's: Completed Carotid: Completed Mapping: Completed Dental: N/A, CABG PFT's: Completed Recent Labs 07/23/18 0835 WBC 8.10 HB 9.3* HCT 31.0* PLT 258 INR 1.0 CREAT 0.94 UA: Normal HCG:N/A ABO/ABO Confirmed: Yes, Positive antibodies Blood ordered: Yes Willing to accept blood: SA Swab: Yes - results: Pending Last Dose of Anticoagulation: Aspirin 81 mg continue Op Note: N/A Pacemaker Check: N/A Implants: no Consults: none DM: No Cardiac Surgical prep: N/A SIGNATURE: Rosalia Prakash APRN.CNP DATE of SERVICE: 07/23/2018 TIME of SERVICE: 2:40 PM CHECKED BY: amber Chronic left-sided low back pain with left-sided sciatica 12/09/2015 08/18/2021 Esophagitis, unspecified 08/29/200709/2010 Unspecified hemorrhoids with out mention of complication 10/20/2010 Overview: Hemorrhoids Diverticulosis of colon (wit hout mention of hemorrhage) 10/20/2010 Overview: Diverticulosis Peptic ulcer, unspecified si te, unspecified as acute or chronic, without mention of hemorrhage, perforation, or obstruction 05/30/2007 documented as of this encounter (statuses as of 12/17/2022) [facility]11-08-2019 History of Past illness Narrative* Problem Noted Date Diagnosed Date Resolved Date Ileus 12/20/2018 12/24/2018 Acute blood loss anemia 12/20/201812/13 Acute cholecystitis 12/15/2018 12/25/19 19 Transition of care performed with sharing of clinical summary 07/26/2018 09/19/2018 Overview: Indication for Surgery: CAD Preop LVEF: 59% RVF: Normal Postop LVEF: Normal RVF: Normal Cards: [place] EKG: NSR PMH/PSH: Hypothyroid, diverticulitis, GIB, PUD, appendectomy, former smoker, GERD, Barretts, esophageal stricture (9mm on 05/2018 EGD note below) and large hiatal hernia. Airway Difficulty: Grade III view (only epiglottis visible) - No special instrumentation Pacing Wires: Ventricular: Pulled 07/27 Chronological List of Surgeries and Major Events (Diagnosis): (Surgeries in bold characters) 07/24/2018: CABG x 3 (VASQUES to LAD, SVG to RCA, SVG to OM1) OR course: Coagulopathy/bleeding - transfused multiple products in OR CVICU: Hypotension requiring Levo gtt for MAP goal 75-85. A/P: Wires pulled 07/27, MS ohara drain has been removed too. s/p CABG - ASA, BB, statin intolerance (D/w patient and was perhaps 20 years ago his primary MD started a statin. He reports maybe dizziness? I suggested perhaps muscle aches but he is not sure. He denies any anaphylaxis or needing to be hospitalized for any med adverse reactions - will start simvastatin 20mg po daily. Patient aware of S/Sx to report and placed on discharge medication sheet.) GERD/Esophageal strictures s/p dilations, did not do a LUCRECIA in the OR, NO LUCRECIA post-op. Dispo - 77yo male from [place], [place]. CM following. F/U with OPD and Cards made. For D/C today. Discharge Planning: Anticipated Discharge Date: 07/29 Barriers to Discharge: No Barriers to Discharge, Other: NA Care Management Discharge Needs: Needs Prior to Discharge: OT/PT Evaluation Obesity, Class I, BMI 30-34.9 07/26/2018 09/19/2018 Overview: History: POA Assessment: Body mass index is 28.62 kg/m . Plan: nutrition consult and lifestyle modification Difficult airway for intubation 07/24/2018 07/29/2018 Overview: Fairly easy mask ventilation. Intubation was difficult with Mac 3 blade. only the epiglottis was visualized, but a blind intubation was successful. Atelectasis 07/24/2018 07/26/2018 Overview: Grade 3 airway A/P: Postop bibasilar. Elevated right hemidiaphragm OOB to chair. BPH. Postoperative hypotension 07/24/2018 Overview: A/P: Arrived on Levo, wean to goal MAP 75-85. Coagulopathy 07/24/2018 07/25/2018 Overview: A/P: Coagulopathy/bleeding intraop, transfused 2plts/2FFP/5PRBC in OR, f/u coags and transfuse as needed. Hypovolemia 07/24/2018 07/25/2018 Overview: A/P: Postop fluid shifts. Volume resuscitate as needed. Pre-op testing 07/23/2018 09/19/2018 Overview: [facility] PRE-OP CHECKLIST Surgeon: Thom Soto M.D. Informed Consent Completed: Yes STS Score: CAD: Yes - CAD on Problem List: Yes Is intended procedure a CABG: Yes - is a beta getachew ordered? Yes H & P completed: Yes PA/LAT: Completed CT: Completed Abnormal Follow-up for these incidentally detected lung nodules with a chest CT exam is recommended in 3-6 months. If stable on follow-up imaging, a repeat chest CT exam in 12 months (15-18 months from the initial exam) is recommended MRI: N/A LE US: Completed Cath: Yes - reviewed: Yes EKG: Completed Is patient on Amiodarone? Echo:Pending today EF %: pending today PI's: Completed Carotid: Completed Mapping: Completed Dental: N/A, CABG PFT's: Completed Recent Labs 07/23/18 0835 WBC 8.10 HB 9.3* HCT 31.0* PLT 258 INR 1.0 CREAT 0.94 UA: Normal HCG:N/A ABO/ABO Confirmed: Yes, Positive antibodies Blood ordered: Yes Willing to accept blood: SA Swab: Yes - results: Pending Last Dose of Anticoagulation: Aspirin 81 mg continue Op Note: N/A Pacemaker Check: N/A Implants: no Consults: none DM: No Cardiac Surgical prep: N/A SIGNATURE: Rosalia Prakash APRN.CNP DATE of SERVICE: 07/23/2018 TIME of SERVICE: 2:40 PM CHECKED BY: amber Chronic left-sided low back pain with left-sided sciatica 12/09/2015 08/18/2021 Esophagitis, unspecified 08/29/200709/2010 Unspecified hemorrhoids with out mention of complication 10/20/2010 Overview: Hemorrhoids Diverticulosis of colon (wit hout mention of hemorrhage) 10/20/2010 Overview: Diverticulosis Peptic ulcer, unspecified si te, unspecified as acute or chronic, without mention of hemorrhage, perforation, or obstruction 05/30/2007 documented as of this encounter (statuses as of 12/17/2022) [facility] Virgil [facility] January 01, 2023 9:31am Note Date/Time January 01, 2023 9:11am [facility] Medical Records Department [address] [place] [address] Emergency Department Summary 01/01/23 MR#: [id number] Acct: [id number] Name: JAYDEN CRAIG #:[id number] : 1940 82 From: Virgil Tovar PCP: Dr. Eloisa Espinal MD Status:AL E ER Location: ED HPI History of Present Illness Chief Complaint: Wound PFSH PFSH Medical History Atherosclerosis of coronary artery of [place] heart without angina pectoris Escobedo's esophagus DDD (degenerative disc disease), lumbar GERD (gastroesophageal reflux disease) Hiatal hernia Hypothyroidism Home Medications acetaminophen 325 mg tablet 650 mg PO Q4H PRN Pain Or Fever 12/09/18 [History Last Taken Unknown] aspirin 81 mg tablet,delayed release (Adult Aspirin Regimen) 81 mg PO DAILY 12/09/18 [History Last Taken Unknown] levothyroxine 200 mcg tablet 200 mcg PO DAILY 12/09/18 [History Last Taken Unknown] lisinopril 10 mg tablet 10 mg PO DAILY bp 12/09/18 [History Last Taken Unknown] magnesium oxide 400 mg PO DAILY 12/09/18 [History Last Taken Unknown] metoprolol succinate 25 mg tablet,extended release 24 hr 75 mg PO BID bp 12/09/18 [History Last Taken Unknown] multivitamin 1 tab PO QAM 12/09/18 [History Last Taken Unknown] pantoprazole 40 mg tablet,delayed release 40 mg PO BID 12/09/18 [History Last Taken Unknown] sennosides 8.6 mg-docusate sodium 50 mg tablet (Senna with Docusate Sodium) 1 tab PO QHS 12/09/18 [History Last Taken Unknown] simvastatin 80 mg tablet 80 mg PO QHS cholesterol 12/09/18 [History Last Taken Unknown] fluticasone propionate 115 mcg-salmeterol 21 mcg/actuation HFA inhaler (Advair HFA) 2 inh inhalation BID sob 09/17/21 [History Last Taken Unknown] fluticasone propionate 50 mcg/actuation nasal spray,suspension 2 ea intranasal BID stuffiness 09/17/21 [History Last Taken Unknown] amoxicillin 875 mg-potassium clavulanate 125 mg tablet 1 tab PO BID 10 days #20 tabs 01/01/23 [Rx Last Taken Unknown] ibuprofen 200 mg tablet 200 mg PO Q6H PRN pain #30 tabs 01/01/23 [Rx Last Taken Unknown] Allergy/AdvReac Type Severity Reaction Status Date / Time cefdinir [From Omnicef] Allergy Intermediate Diarrhea Verified 01/01/23 08:48 atorvastatin AdvReac Intermediate myalgias Verified 01/01/23 08:48 azithromycin [From Zithromax] AdvReac Nausea/Vom/ Verified 01/01/23 08:48 Diarrhea Family History Mother Emphysema of lung Father Emphysema of lung Surgical History History of appendectomy History of back surgery (~04/25/17) 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) Social History Smoking Status: Former smoker how long ago did patient quit smokin years ago alcohol intake: current alcohol intake frequency: a few times a week Alcohol type: beer substance use type: does not use EXAM Physical Exam Const Vital Signs: 01/01/23 08:46 Temperature 97.6 F L Temperature Source Temporal Pulse Rate 95 Respiratory Rate 16 Blood Pressure 141/79 H Blood Pressure Mean 99 Pulse Ox 100 Oxygen Delivery Method Room Air MDM MDM MDM Narrative Medical decision making narrative: HISTORY OF PRESENT ILLNESS: 82-year-old male here with concern for bilateral hand redness from cat scratches. States this occurred yesterday he complains of pain over the right first digit, pain over the left dorsal hypothenar eminence. REVIEW OF SYSTEMS: Pertinent positives: Redness, wounds Pertinent negatives: Fever, nausea vomiting PHYSICAL EXAM: Nursing triage notes reviewed, Vital signs reviewed Constitutional: please see mdm : No CVAT Extremities: No edema, no obvious deformity, there is swelling noted over the puncture site of the left second digit interphalangeal joint. Intact flexor tendon structures both digitorum and profundus. Intact radial pulse in bilateral upper extremities. Neuro: intact 5/5 strength with ok sign (median), intact finger abduction (ulnar) intact wrist extension (radial n). Intact sensation in the radial, ulnar, and median nerve distributions. Skin: Puncture wounds noted over the interphalangeal joint of the second digit of the left hand, intact extensor mechanism. MEDICAL DECISION MAKING: Chief Complaint: Redness, wounds from cat scratches External records reviewed: No recent ED visits for similar Factors affecting care: Hypertension, hypothyroidism, hyperlipidemia MDM Narrative: Patient was hemodynamically stable, afebrile, nontoxic-appearing. Exam with swelling puncture wounds but no obvious cellulitic changes or discharge. No signs of necrotizing fasciitis, flexor tenosynovitis,. Low suspicion for septicarthritis. No evidence of cellulitis. Given his cat bite and cat scratch will give prophylactic antibiotics (Augmentin) and strict return precautions. I considered the following differential diagnosis: Cellulitis, necrotizing fasciitis, flexor tenosynovitis, septic arthritis The patient and/or family, caregivers express understanding. The patient and/orfamily, caregivers agrees with the plan. Shared decision making: I will have a discussion with the patient and or visitors regarding risk/benefits of further testing or admission. They will be made aware of of the risk/benefits inherent in this decision they will be given the opportunity to voice understanding. Total critical care time today provided was at least 0 minutes. This excludes separately billable procedures. Critical care time (if documented) is secondary to the patient having high probability of clinically significant/life threatening deterioration in the patient's condition which required my urgent intervention. Impression: 1. Cat bite Dispo: Discharge Discharge Plan Triage Chief Complaint: Wound ED Provider: Virgil Barker Dx/Rx/DC Orders Clinical Impression: Cat bite, Cat scratch Instructions: Animal Bites and Scratches Prescriptions: New amoxicillin-pot clavulanate 875-125 mg tablet 1 tab PO BID 10 Days Qty: 20 0RF ibuprofen 200 mg tablet 200 mg PO Q6H PRN (Reason: pain) Qty: 30 0RF No Action lisinopril 10 mg tablet 10 mg PO DAILY aspirin [Adult Aspirin Regimen] 81 mg tablet,delayed release (DR/EC) 81 mg PO DAILY magnesium oxide 400 mg magnesium capsule 400 mg PO DAILY sennosides-docusate sodium [Senna with Docusate Sodium] 8.6-50 mg tablet 1 tab PO QHS acetaminophen 325 mg tablet 650 mg PO Q4H PRN (Reason: Pain Or Fever) levothyroxine 200 mcg tablet 200 mcg PO DAILY multivitamin Tablet 1 tab PO QAM metoprolol succinate 25 mg tablet extended release 24 hr 75 mg PO BID simvastatin 80 mg tablet 80 mg PO QHS pantoprazole 40 mg tablet,delayed release (DR/EC) 40 mg PO BID Advair HFA 115-21 mcg/actuation HFA aerosol inhaler 2 inh INHALATION BID Patient Comments: INHALE 2 PUFFS INSTRUCTED TWICE DAILY. RINSE MOUTH AFTER USE. fluticasone propionate 50 mcg/actuation spray,suspension 2 ea INTRANASAL BID Patient Comments: USE 2 SPRAYS IN EACH NOSTRIL ONCE DAILY. RINSE MOUTH AFTER USE. Primary Care Provider: Eloisa Espinal Referrals: Eloisa Espinal MD [Primary Care Provider] - Activity Restrictions/Additional Instructions: Thank you for trusting us with your care today! Please take ibuprofen (2 pills, 400 mg) every 6 hours as needed for pain and fever control. Please take Augmentin as prescribed finish entire course Please return to the emergency department if your symptoms change or worsen. Specifically if your symptoms or not better within 5 days. Develop worsening swelling, pain, redness, fever if you are unable to take antibiotics by mouth. Please follow with your primary care physician for further outpatient evaluationand management. Disposition Disposition: Home, Self Care What to do if you have Problems For any increased pain, shortness of breath, bleeding, nausea or vomiting, chestpain, or any unexpected problems, contact your Primary Care Provider. Call [facility] ([phone]) or report to the closest Emergency Room. Call 911 if necessary. 01/01/23930 <Electronically signed by Virgil Barker DO> Cosigner Signature (if applicable): CC: Dr. Eloisa Espinal MD ~ Signed [facility] Work Phone: Discharge summary Author Dave Velasco [facility] Note Date/Time April 26, 2024 5:0 8am [facility] Medical Records Department [address] [place] [address] Emergency Department Summary 04/26/24 MR#: [id number] Acct: [id number] Name: JAYDEN CRAIG Rep #:[id number] : 1940 83 From: Dave Velasco MD PCP: Dr. Eloisa Espinal MD Status:RE G ER Location: ED HPI History of Present Illness Chief Complaint: Fall Detail of Chief Complaint: Mechanical fall with injury to head, right and left hand, left knee and lef Informant: patient, spouse/S.O. and family Limited: dementia Onset/Context/Timing Onset: Today and Hours Mechanism/Context: Blunt Injury and Fall Location of pain/injuries: - (Left forehead, left shoulder, left and right hand and left knee) Quality of Pain: Dull and Aching Location: Left shoulder and head Current Severity: Mild Maximum Severity: Moderate Worsened by: Shoulder is worse with movement Relieved by: Nothing Associated Symptoms Associated Symptoms: Positive for Amnesia and - (Patient was dazed. He is on aspirin.); Negative for Parasthesias, Weakness, Loss of function, Inability to ambulate or Loss of consciousness Narrative Narrative: Patient is a 83-year-old male who had a fall. He sustained injury to his forehead on the left, left and right hand (radial side of the PIP joint right index finger, hyperthenar eminence of the left palm and tip of the left index finger and ring finger) swelling and contusion of the left shoulder. Patient denies neck pain. Denies paresthesia, anesthesia or motor weakness. Patient denies cardiac or respiratory symptoms. Patient denies GI symptoms and specifically black or maroon-colored stool. Patient is not on any other antithrombotic except aspirin and is not on an anticoagulant. He has a history of COPD, dyslipidemia, hypertension, paroxysmal atrial fibrillation after coronary bypass surgery, acquired hypothyroidism and cholecystitis status postcholecystectomy. 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 Acquired hypothyroidism Abdominal wall hernia Atherosclerosis of coronary artery of [place] heart without angina pectoris Hiatal hernia Hypothyroidism Escobedo's esophagus GERD (gastroesophageal reflux disease) DDD (degenerative disc disease), lumbar Home Medications ?Medication ?Instructions ?Recorded ?Last Taken ?Type acetaminophen 325 mg tablet 650 mg PO Q4H PRN Pain Or Fever 12/09/18 Unknown History aspirin 81 mg tablet,delayed 81 mg PO DAILY 12/09/18 U nknown History release (Adult Aspirin Regimen) magnesium oxide 400 mg PO DAILY 12/09/18 Unk nown History multivitamin 1 tab PO QAM 12/09/18 Unknow n History pantoprazole 40 mg tablet,delayed 40 mg PO BID 9 Unknown History release simvastatin 80 mg tablet 80 mg PO QHS cholesterol Unknown History fluticasone propionate 115 2 inh inhalation BID sob Unknown History mcg-salmeterol 21 mcg/actuation HFA inhaler (Advair HFA) fluticasone propionate 50 2 ea intranasal BID stuffine ss 09/17/21 Unknown History mcg/actuation nasal spray,suspension ibuprofen 200 mg tablet 200 mg PO Q6H PRN pain #30 t abs 01/01/23 Unknown Rx levothyroxine 175 mcg tablet 175 mcg PO DAILY disorder of 06/30/23 Unknown History thyroid gland metoprolol tartrate 25 mg tablet 25 mg PO BID 06/30/23 Unknown History tamsulosin 0.4 mg capsule 0.4 mg PO QHS 06/30/23 Unkno wn History albuterol sulfate 90 mcg/actuation 2 puff inhalation Q 4-6H PRN 04/15/24 Unknown History aerosol inhaler shortness of breath or wheez ing Allergy/AdvReac Type Severity Reaction Status Date / Time cefdinir (From Omnicef) Allergy Intermediate Diarrhea Verified 04/25/24 21:39 atorvastatin AdvReac Intermediate myalgias Verified 04/25/24 21:39 azithromycin (From Zithromax) AdvReac Nausea/Vom/ Verified 04/25/24 21:39 Diarrhea Family History Mother Emphysema of lung Father Emphysema of lung Surgical History History of ventral hernia repair Hx laparoscopic cholecystectomy History of repair of hiatal hernia History of umbilical hernia repair 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) History of back surgery (~04/25/17) Social History Smoking Status: Former smoker quit date: 02/12/81 pack-years: 13 Tobacco: How many years used: 27 Electronic Cigarette Use: not used how long ago did patient quit smokin years ago alcohol intake: former substance use type: does not use ROS ROS ED Constitutional Constitutional ED: Denies chills, fever(s), subjective, sweats or weight loss Eyes Eyes: Denies blurry vision or change in vision ENT ENT ED: Denies ear pain, rhinorrhea or sore throat Cardiovascular Cardiovascular: Denies chest pain, palpitations or paroxysmal nocturnal dyspnea Respiratory/Chest Respiratory/Chest: Denies cough, dyspnea, dyspnea on exertion or paroxysmal nocturnal dyspnea Gastrointestinal Gastrointestinal: Denies abdominal pain, nausea or vomiting Genitourinary Genitourinary ED: Denies hematuria Musculoskeletal Musculoskeletal: Denies back pain or neck pain Integumentary Reports Abrasions Neurologic Neurologic: Reports headache(s); Denies paresthesias Endocrine Endocrinology: Denies cold intolerance or heat intolerance Hematologic/Lymphatic Hematologic/Lymphatic: Reports easy bruising; Denies easy bleeding EXAM Physical Exam Const Vital Signs: 04/25/24 21:39 04/25/24 23:30 04/25/24 23:34 Temperature 98.2 F 98 F Temperature Source Oral Oral Pulse Rate 78 99 Respiratory Rate 16 17 Respiratory Effort Normal Respiratory Depth Normal Respiratory Pattern Normal Blood Pressure 124/67 H 159/89 H Blood Pressure Mean 86 112 Pulse Ox 98 97 Oxygen Delivery Method Room Air Room Air 04/26/24 01:00 04/26/24 03:00 Temperature Temperature Source Pulse Rate 96 96 Respiratory Rate 20 H 17 Respiratory Effort Respiratory Depth Respiratory Pattern Blood Pressure 160/94 H 162/83 H Blood Pressure Mean 116 109 Pulse Ox 95 97 Oxygen Delivery Method Room Air Room Air Positive well nourished and well developed General Appearance ED: well developed and NAD HEENT HEENT Narrative: Abrasion left side of the forehead. There is no palp depression. There is no clinic signs of basilar skull fracture. There is no septal deviation hematoma. There is no dental trauma. Posterior pharynx is normal. Eyes PERRL and EOMs intact bilaterally General Eye ED: Yes other Other Details: There is no subconjunctival hemorrhage. There is no nystagmus. Neck full ROM General: Negative for tenderness Chest Wall inspection of chest normal and palpation of chest normal Resp normal respiratory effort and clear to auscultation bilaterally Cardio regular rhythm, S1 normal heart sound and S2 normal heart sound; Negative for nomurmurs Rate: regular rate GI normal to inspection, nondistended, normoactive bowel sounds, non-tender, non-distended and no masses Back/Spine normal to inspection and no thoracic nor lumbar tenderness Extremity Extremity Narrative: Skin avulsion radial side PIP joint of the right index finger. Extensor and flexor mechanism intact. There is no subungual hematoma noted. There is no neurovascular compromise Patient has a curvilinear laceration hypothenar eminence of the left palm. Thismeasures 2 cm. He also has abrasion tip of the left index and ring finger. There is no subungual hematoma. The extensor and flexor mechanism is intact. Examination shoulder reveals swelling. He is unable to AB duct. He complains of significant pain with movement. Patient has abrasion over the left patella. He is able to flex and extend. There is no laxity varus valgus stress testing. There is no effusion. The patella is not ballotable. General Extremety ED: Yes tenderness; Negative for deformity General Extremity: Negative for deformity Neuro No oriented x3, CN's II-XII intact bilaterally, moves all extremities, no focal motor deficits and no sensory deficits noted Nicholas Coma Scale: document GCS findings Spontaneous Obeys Commands Sensorium / Orientation: alert Motor Exam: strength 5/5 throughout Deep Tendon Reflexes: Rt Triceps (C7): 2+, Lt Triceps (C7): 2+, Rt Biceps (C5, C6): 2+, Lt Biceps (C5, C6): 2+, Rt Brachioradialis (C6): 2+, Lt Brachioradialis(C6): 2+, Rt Patellar (L4): 2+, Lt Patellar (L4): 2+, Rt Ankle (S1): 2+ and Lt Ankle (S1): 2+ Deep Tendon Reflexes Back: Rt Patellar (L4): 2+, Lt Patellar (L4): 2+, Rt Ankle (S1): 2+ and Lt Ankle (S1): 2+ Plantar Reflex: Downgoing: bilateral Psych mental status grossly normal and thought process normal Skin no rashes or lesions noted, skin turgor normal and No no jaundice Skin Narrative: Documented other portions of the EMR. PROC Procedures Other Procedures Procedure(s): The laceration palm of left hand was anesthetized with 1% lidocaine for local infiltration. Wound was irrigated with 125 cc of normal saline. The wound was then closed using 5-0 Ethilon. A total of 5 stitches placed. Patient tolerated procedure well. MDM MDM MDM Narrative Medical decision making narrative: Per the Romanian CT head rule imaging of the head is indicated. CT of the head was obtained. Because of his limited range of motion of the shoulder shoulder x-ray was obtained. Differential diagnosis includes epidural hematoma, subduralhematoma, traumatic subarachnoid hemorrhage and parenchymal contusion. Differential for the shoulder would include fracture, fracture dislocation, rotator cuff injury with fracture or isolated. Radiography Chest X-Ray - ED: Read by ED Physician (Three-view x-ray of the left shoulder independently interpreted by me at 2340 reveals no fracture, subluxation or dislocation. There are some minimal arthritic changes. There is no widening ofthe AC joint.) Diagnostic Testing: Clinical Impression(s) from Imaging Studies Brain CT 04/25/24 22:53 IMPRESSION: Chronic involutional changes of the brain. No acute intracranial hemorrhage. Reading Location: [facility] Shoulder X-Ray 04/25/24 23:59 IMPRESSION: No fracture or dislocation. Reading Location: [facility] Treatment and Re-Evaluation Narrative: Since patient is not able to abduct past 40 degrees suspect he has a rotator cuff tear. He was referred to Dr. Izaiah Armendariz who is on-call for orthopedics no doc. He is placed in a sling. Discharge Plan Triage Chief Complaint: Fall ED Provider: Dave Velasco Dx/Rx/DC Orders Clinical Impression: Concussion with brief LOC, Forehead contusion, Forehead abrasion, Abrasion, left knee, initial encounter, Abrasion of right index finger, initial encounter,Abrasion of left index finger, Laceration of left hand Instructions: ED Abrasion, ED Concussion, ED Laceration, Hand: All Closures Prescriptions: No Action aspirin [Adult Aspirin Regimen] 81 mg tablet,delayed release (DR/EC) 81 mg PO DAILY magnesium oxide 400 mg magnesium capsule 400 mg PO DAILY acetaminophen 325 mg tablet 650 mg PO Q4H PRN (Reason: Pain Or Fever) multivitamin Tablet 1 tab PO QAM simvastatin 80 mg tablet 80 mg PO QHS albuterol sulfate 90 mcg/actuation HFA aerosol inhaler 2 puff inhalation Q4-6H PRN (Reason: shortness of breath or wheezing) pantoprazole 40 mg tablet,delayed release (DR/EC) 40 mg PO BID fluticasone propion-salmeterol [Advair HFA] 115-21 mcg/actuation HFA aerosol inhaler 2 inh INHALATION BID Patient Comments: INHALE 2 PUFFS INSTRUCTED TWICE DAILY. RINSE MOUTH AFTER USE. fluticasone propionate 50 mcg/actuation spray,suspension 2 ea INTRANASAL BID Patient Comments: USE 2 SPRAYS IN EACH NOSTRIL ONCE DAILY. RINSE MOUTH AFTER USE. ibuprofen 200 mg tablet 200 mg PO Q6H PRN (Reason: pain) Qty: 30 0RF levothyroxine 175 mcg tablet 175 mcg PO DAILY tamsulosin 0.4 mg capsule 0.4 mg PO QHS metoprolol tartrate 25 mg tablet 25 mg PO BID Primary Care Provider: Eloisa Espinal Referrals: Eloisa Espinal MD [Primary Care Provider] - 10 Day for suture removal Activity Restrictions/Additional Instructions: 1. Apply bacitracin ointment twice a day to the abrasions of your forehead, hand and knee. 2. Sutures to be removed in 10 days Print Language: Kyrgyz Disposition Disposition: Home, Self Care What to do if you have Problems For any increased pain, shortness of breath, bleeding, nausea or vomiting, chestpain, or any unexpected problems, contact your Primary Care Provider. Call [facility] ([phone]) or report to the closest Emergency Room. Call 911 if necessary. 04/26/24 0508 <Electronically signed by Dave Velasco MD> Cosigner Signature (if applicable): CC: Dr. 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 Escobedo's esophagus [facility] Hiatal hernia- Primary Diaphragmatic hernia without mention of obstruction or gangrene [facility] Diagnosis Diaphragmatic hernia with obstruction, without gangrene Diaphragmatic hernia with obstruction [facility] Diagnosis Acute sinusitis, recurrence not specified, unspecified location- Primary Impacted cerumen of right ear Impacted cerumen [facility] Diagnosis Diaphragmatic hernia with obstruction, without gangrene Diaphragmatic hernia with obstruction [facility] Diagnosis Diaphragmatic hernia with obstruction, without gangrene- Primary Diaphragmatic hernia with obstruction Diaphragmatic hernia without obstruction and without gangrene [facility] Diagnosis Acquired hypothyroidism Unspecified hypothyroidism [facility] Diagnosis Mixed hyperlipidemia- Primary Coronary artery disease involving [place] coronary artery of [place] heart without angina pectoris Paroxysmal atrial fibrillation (HCC) Atrial fibrillation Essential hypertension Unspecified essential hypertension Mild intermittent asthma without complication Unspecified asthma Acquired hypothyroidism Unspecified hypothyroidism Escobedo's esophagus with low grade dysplasia Escobedo's esophagus DDD (degenerative disc disease), lumbar Degeneration of lumbar or lumbosacral intervertebral disc Need for COVID-19 vaccine [facility] Diagnosis DDD (degenerative disc disease), lumbar- Primary Degeneration of lumbar or lumbosacral intervertebral disc [facility] Diagnosis DDD (degenerative disc disease), lumbar- Primary Degeneration of lumbar or lumbosacral intervertebral disc [facility] Diagnosis DDD (degenerative disc disease), lumbar- Primary Degeneration of lumbar or lumbosacral intervertebral disc [facility] Diagnosis DDD (degenerative disc disease), lumbar- Primary Degeneration of lumbar or lumbosacral intervertebral disc [facility] Diagnosis DDD (degenerative disc disease), lumbar- Primary Degeneration of lumbar or lumbosacral intervertebral disc [facility] Diagnosis DDD (degenerative disc disease), lumbar- Primary Degeneration of lumbar or lumbosacral intervertebral disc [facility] Diagnosis Onset Date Resolution Status Chest pain acute History of coronary artery disease acute Unstable angina acute [facility] Work Phone: Evaluation note* Diagnosis Lateral epicondylitis of left elbow- Primary Lateral epicondylitis of elbow [facility] Diagnosis Left elbow pain- Primary Pain in joint, upper arm [facility] Diagnosis Coronary artery disease involving [place] coronary artery of [place] heart without angina pectoris- Primary Hx of CABG Postsurgical aortocoronary bypass status Mixed hyperlipidemia Essential hypertension Unspecified essential hypertension [facility] Diagnosis Cervical radiculopathy- Primary Brachial neuritis or radiculitis nos Left arm pain Pain in limb documented in this encounter [facility] note* Diagnosis Cervical radiculopathy Brachial neuritis or radiculitis nos documented in this encounter [facility] note* Diagnosis Cervical radiculopathy- Primary Brachial neuritis or radiculitis nos Left arm pain Pain in limb documented in this encounter [facility] note* Diagnosis Cervical radiculopathy- Primary Brachial neuritis or radiculitis nos Left arm pain Pain in limb documented in this encounter [facility] note* Diagnosis Cervical radiculopathy- Primary Brachial neuritis or radiculitis nos Left arm pain Pain in limb documented in this encounter [facility] note* Diagnosis Cervical radiculopathy- Primary Brachial neuritis or radiculitis nos Left arm pain Pain in limb documented in this encounter [facility] note* Diagnosis Essential hypertension- Primary Unspecified essential hypertension Mixed hyperlipidemia Paroxysmal atrial fibrillation (HCC) Atrial fibrillation Hx of CABG Postsurgical aortocoronary bypass status Mild intermittent asthma without complication Unspecified asthma Acquired hypothyroidism Unspecified hypothyroidism Escobedo's esophagus determined by biopsy documented in this encounter [facility] note* Diagnosis Cervical radiculopathy- Primary Brachial neuritis or radiculitis nos Left arm pain Pain in limb documented in this encounter [facility] note* Diagnosis Cervical radiculopathy- Primary Brachial neuritis or radiculitis nos Left arm pain Pain in limb documented in this encounter [facility] note* Diagnosis Cervical radiculopathy- Primary Brachial neuritis or radiculitis nos Left arm pain Pain in limb documented in this encounter [facility] note* Diagnosis Cervical radiculopathy- Primary Brachial neuritis or radiculitis nos Left arm pain Pain in limb documented in this encounter [facility] note* Diagnosis Cervical radiculopathy- Primary Brachial neuritis or radiculitis nos Left arm pain Pain in limb documented in this encounter [facility] note* Diagnosis Cervical radiculopathy- Primary Brachial neuritis or radiculitis nos Left arm pain Pain in limb documented in this encounter [facility] note* Diagnosis Escobedo's esophagus with low grade dysplasia- Primary Escobedo's esophagus [facility] Diagnosis Escobedo's esophagus with low grade dysplasia Escobedo's esophagus Thoracic stomach Diaphragmatic hernia without mention of obstruction or gangrene [facility] Diagnosis Fatigue, unspecified type- Primary Exposure to COVID-19 virus [facility] Diagnosis Hiatal hernia- Primary Diaphragmatic hernia without mention of obstruction or gangrene [facility] Diagnosis Escobedo's esophagus with low grade dysplasia Escobedo's esophagus [facility] Diagnosis 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) [facility] Diagnosis RLQ abdominal pain- Primary Abdominal pain, right lower quadrant Right upper quadrant abdominal mass Abdominal or pelvic swelling, mass, or lump, right upper quadrant Change in bowel function Other symptoms involving digestive system Other disorders of arteries, arterioles and capillaries in diseases classified elsewhere (HCC) COPD with exacerbation (HCC) Obstructive chronic bronchitis with exacerbation Paroxysmal atrial fibrillation (HCC) Atrial fibrillation Atherosclerotic heart disease of [place] coronary artery with other forms of angina pectoris (HCC) [facility] Diagnosis Acquired hypothyroidism Unspecified hypothyroidism [facility] Diagnosis Periumbilical hernia Umbilical hernia without mention of obstruction or gangrene [facility] Diagnosis Encounter for preoperative anesthesiology assessment for thoracic surgery- Primary [facility] Diagnosis Hiatal hernia- Primary Diaphragmatic hernia without mention of obstruction or gangrene Umbilical hernia without obstruction and without gangrene [facility] Diagnosis Hiatal hernia Diaphragmatic hernia without mention of obstruction or gangrene [facility] Diagnosis Hiatal hernia [K44.9]- Primary Diaphragmatic hernia without mention of obstruction or gangrene [facility] Diagnosis 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]- Primary Achalasia and cardiospasm [facility] Diagnosis Hiatal hernia Diaphragmatic hernia without mention of obstruction or gangrene [facility] Diagnosis Left arm pain Pain in limb Cervical radiculopathy Brachial neuritis or radiculitis nos documented [facility]* Diagnosis Left elbow pain Pain in joint, upper arm [facility] Diagnosis RLQ abdominal pain Abdominal pain, right lower quadrant Right upper quadrant abdominal mass Abdominal or pelvic swelling, mass, or lump, right upper quadrant Change in bowel function Other symptoms involving digestive system [facility] noteNo assessment information availableWTuscarawas Hospital Work Phone: Evaluation note* Diagnosis Abdominal swelling- Primary Abdominal or pelvic swelling, mass or lump, unspecified site [facility] Diagnosis Ventral incisional hernia without obstruction or gangrene- Primary [facility]* Diagnosis Pre-operative examination- Primary Preoperative examination, unspecified Acquired hypothyroidism Unspecified hypothyroidism 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, mild (HCC) Chronic airway obstruction, not elsewhere classified Esophageal stricture Stricture and stenosis of esophagus Essential hypertension Unspecified essential hypertension Gastroesophageal reflux disease with esophagitis, unspecified whether hemorrhage Mixed hyperlipidemia Paraesophageal hernia Diaphragmatic hernia without mention of obstruction or gangrene Paroxysmal atrial fibrillation (HCC) Atrial fibrillation 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 without myelopathy [facility]* Diagnosis Status post repair of ventral hernia Other postprocedural status [facility]* Diagnosis Frequent urination- Primary Urinary frequency [facility] Diagnosis Frequent urination- Primary Urinary frequency [facility]* Diagnosis Essential hypertension- Primary Unspecified essential hypertension Acquired hypothyroidism Unspecified hypothyroidism Fatigue, unspecified type [facility]* Diagnosis BPH associated with nocturia- Primary Hypertrophy of prostate with urinary obstruction and other lower urinary tract symptoms (LUTS) Screening for genitourinary condition Screening for other and unspecified genitourinary condition documented [facility]* Diagnosis Retroperitoneal hematoma- Primary Hemorrhage, unspecified [facility]* Diagnosis Frequent urination Urinary frequency [facility]* Diagnosis Hospital discharge follow-up- Primary Other follow-up examination Retroperitoneal hemorrhage Hemorrhage, unspecified Syncope, unspecified syncope type Essential hypertension Unspecified essential hypertension Paroxysmal atrial fibrillation (HCC) Atrial fibrillation 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) Hx of CABG Postsurgical aortocoronary bypass status Acquired hypothyroidism Unspecified hypothyroidism Mixed hyperlipidemia Anemia, unspecified type Mild intermittent asthma without complication Unspecified asthma DDD (degenerative disc disease), lumbar Degeneration of lumbar or lumbosacral intervertebral disc Low sodium levels Hyposmolality and/or hyponatremia Escobedo's esophagus with low grade dysplasia Escobedo's esophagus Frequent urination Urinary frequency Hypophosphataemia COPD, mild (HCC) Chronic airway obstruction, not elsewhere classified Atherosclerotic heart disease of [place] coronary artery with other forms of angina pectoris (HCC) * Assessment & Plan Note - Eloisa Espinal MD - 07/12/2023 11:46 AM EDT Associated Problem(s): COPD, mild (HCC) Stable; monitor * Assessment & Plan Note - Eloisa Espinal MD - 07/12/2023 11:46 AM EDT Associated Problem(s): Atherosclerotic heart disease of [place] coronary artery with other forms of angina pectoris (HCC) Continue current medications. 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) Hx of CABG Postsurgical aortocoronary bypass status Mixed hyperlipidemia Low sodium levels Hyposmolality and/or hyponatremia Hypophosphataemia Anemia, unspecified type Retroperitoneal hemorrhage Hemorrhage, unspecified Mild intermittent asthma without complication Unspecified asthma COPD, mild (HCC) Chronic airway obstruction, not elsewhere classified Acquired hypothyroidism Unspecified hypothyroidism Bruising Contusion of unspecified site documented in this encounter [facility] note* Diagnosis BPH associated with nocturia- Primary Hypertrophy of prostate with urinary obstruction and other lower urinary tract symptoms (LUTS) Frequent urination Urinary frequency documented in this encounter [facility] note* Diagnosis Pre-operative examination- Primary Preoperative examination, unspecified Acquired hypothyroidism Unspecified hypothyroidism 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, mild (HCC) Chronic airway obstruction, not elsewhere classified Esophageal stricture Stricture and stenosis of esophagus Essential hypertension Unspecified essential hypertension Gastroesophageal reflux disease with esophagitis, unspecified whether hemorrhage Mixed hyperlipidemia Paraesophageal hernia Diaphragmatic hernia without mention of obstruction or gangrene Paroxysmal atrial fibrillation (HCC) Atrial fibrillation 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 without myelopathy Hospital discharge follow-up- Primary Other follow-up examination Retroperitoneal hemorrhage Hemorrhage, unspecified Syncope, unspecified syncope type Essential hypertension Unspecified essential hypertension Paroxysmal atrial fibrillation (HCC) Atrial fibrillation 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) Hx of CABG Postsurgical aortocoronary bypass status Acquired hypothyroidism Unspecified hypothyroidism Mixed hyperlipidemia Anemia, unspecified type Mild intermittent asthma without complication Unspecified asthma DDD (degenerative disc disease), lumbar Degeneration of lumbar or lumbosacral intervertebral disc Low sodium levels Hyposmolality and/or hyponatremia Escobedo's esophagus with low grade dysplasia Escobedo's esophagus Frequent urination Urinary frequency Hypophosphataemia COPD, mild (HCC) Chronic airway obstruction, not elsewhere classified Atherosclerotic heart disease of [place] coronary artery with other forms of angina pectoris (HCC) Retroperitoneal hematoma Hemorrhage, unspecified documented in this encounter [facility] note* Diagnosis Pre-operative examination- Primary Preoperative examination, unspecified Acquired hypothyroidism Unspecified hypothyroidism 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, mild (HCC) Chronic airway obstruction, not elsewhere classified Esophageal stricture Stricture and stenosis of esophagus Essential hypertension Unspecified essential hypertension Gastroesophageal reflux disease with esophagitis, unspecified whether hemorrhage Mixed hyperlipidemia Paraesophageal hernia Diaphragmatic hernia without mention of obstruction or gangrene Paroxysmal atrial fibrillation (HCC) Atrial fibrillation 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 without myelopathy Hospital discharge follow-up- Primary Other follow-up examination Retroperitoneal hemorrhage Hemorrhage, unspecified Syncope, unspecified syncope type Essential hypertension Unspecified essential hypertension Paroxysmal atrial fibrillation (HCC) Atrial fibrillation 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) Hx of CABG Postsurgical aortocoronary bypass status Acquired hypothyroidism Unspecified hypothyroidism Mixed hyperlipidemia Anemia, unspecified type Mild intermittent asthma without complication Unspecified asthma DDD (degenerative disc disease), lumbar Degeneration of lumbar or lumbosacral intervertebral disc Low sodium levels Hyposmolality and/or hyponatremia Escobedo's esophagus with low grade dysplasia Escobedo's esophagus Frequent urination Urinary frequency Hypophosphataemia COPD, mild (HCC) Chronic airway obstruction, not elsewhere classified 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 ureter [facility] Diagnosis Pre-operative examination- Primary Preoperative examination, unspecified Acquired hypothyroidism Unspecified hypothyroidism 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, mild (HCC) Chronic airway obstruction, not elsewhere classified Esophageal stricture Stricture and stenosis of esophagus Essential hypertension Unspecified essential hypertension Gastroesophageal reflux disease with esophagitis, unspecified whether hemorrhage Mixed hyperlipidemia Paraesophageal hernia Diaphragmatic hernia without mention of obstruction or gangrene Paroxysmal atrial fibrillation (HCC) Atrial fibrillation 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 without myelopathy Hospital discharge follow-up- Primary Other follow-up examination Retroperitoneal hemorrhage Hemorrhage, unspecified Syncope, unspecified syncope type Essential hypertension Unspecified essential hypertension Paroxysmal atrial fibrillation (HCC) Atrial fibrillation 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) Hx of CABG Postsurgical aortocoronary bypass status Acquired hypothyroidism Unspecified hypothyroidism Mixed hyperlipidemia Anemia, unspecified type Mild intermittent asthma without complication Unspecified asthma DDD (degenerative disc disease), lumbar Degeneration of lumbar or lumbosacral intervertebral disc Low sodium levels Hyposmolality and/or hyponatremia Escobedo's esophagus with low grade dysplasia Escobedo's esophagus Frequent urination Urinary frequency Hypophosphataemia COPD, mild (HCC) Chronic airway obstruction, not elsewhere classified Atherosclerotic heart disease of [place] coronary artery with other forms of angina pectoris (HCC) Acquired hypothyroidism- Primary Unspecified hypothyroidism Need for influenza vaccination Need for prophylactic vaccination and inoculation against influenza Need for vaccination Need for prophylactic vaccination and inoculation against unspecified single disease Mixed hyperlipidemia 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 Escobedo's esophagus Mild intermittent asthma without complication Unspecified asthma 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) Gastroesophageal reflux disease with esophagitis, unspecified whether hemorrhage Essential hypertension Unspecified essential hypertension Acute blood loss anemia Acute posthemorrhagic anemia Paroxysmal atrial fibrillation (HCC) Atrial fibrillation Chronic abdominal pain Abdominal pain, unspecified site Rectus diastasis Diastasis of muscle documented in this encounter [facility] note* Diagnosis Cough Pre-operative examination- Primary Preoperative examination, unspecified Acquired hypothyroidism Unspecified hypothyroidism 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, mild (HCC) Chronic airway obstruction, not elsewhere classified Esophageal stricture Stricture and stenosis of esophagus Essential hypertension Unspecified essential hypertension Gastroesophageal reflux disease with esophagitis, unspecified whether hemorrhage Mixed hyperlipidemia Paraesophageal hernia Diaphragmatic hernia without mention of obstruction or gangrene Paroxysmal atrial fibrillation (HCC) Atrial fibrillation 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 without myelopathy Hospital discharge follow-up- Primary Other follow-up examination Retroperitoneal hemorrhage Hemorrhage, unspecified Syncope, unspecified syncope type Essential hypertension Unspecified essential hypertension Paroxysmal atrial fibrillation (HCC) Atrial fibrillation 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) Hx of CABG Postsurgical aortocoronary bypass status Acquired hypothyroidism Unspecified hypothyroidism Mixed hyperlipidemia Anemia, unspecified type Mild intermittent asthma without complication Unspecified asthma DDD (degenerative disc disease), lumbar Degeneration of lumbar or lumbosacral intervertebral disc Low sodium levels Hyposmolality and/or hyponatremia Escobedo's esophagus with low grade dysplasia Escobedo's esophagus Frequent urination Urinary frequency Hypophosphataemia COPD, mild (HCC) Chronic airway obstruction, not elsewhere classified Atherosclerotic heart disease of [place] coronary artery with other forms of angina pectoris (HCC) documented in this encounter [facility] note* Diagnosis Pre-operative examination- Primary Preoperative examination, unspecified Acquired hypothyroidism Unspecified hypothyroidism 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, mild (HCC) Chronic airway obstruction, not elsewhere classified Esophageal stricture Stricture and stenosis of esophagus Essential hypertension Unspecified essential hypertension Gastroesophageal reflux disease with esophagitis, unspecified whether hemorrhage Mixed hyperlipidemia Paraesophageal hernia Diaphragmatic hernia without mention of obstruction or gangrene Paroxysmal atrial fibrillation (HCC) Atrial fibrillation 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 without myelopathy Hospital discharge follow-up- Primary Other follow-up examination Retroperitoneal hemorrhage Hemorrhage, unspecified Syncope, unspecified syncope type Essential hypertension Unspecified essential hypertension Paroxysmal atrial fibrillation (HCC) Atrial fibrillation 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) Hx of CABG Postsurgical aortocoronary bypass status Acquired hypothyroidism Unspecified hypothyroidism Mixed hyperlipidemia Anemia, unspecified type Mild intermittent asthma without complication Unspecified asthma DDD (degenerative disc disease), lumbar Degeneration of lumbar or lumbosacral intervertebral disc Low sodium levels Hyposmolality and/or hyponatremia Escobedo's esophagus with low grade dysplasia Escobedo's esophagus Frequent urination Urinary frequency Hypophosphataemia COPD, mild (HCC) Chronic airway obstruction, not elsewhere classified Atherosclerotic heart disease of [place] coronary artery with other forms of angina pectoris (HCC) Abdominal muscle strain, sequela- Primary Fall, sequela [facility]* Diagnosis Pre-operative examination- Primary Preoperative examination, unspecified Acquired hypothyroidism Unspecified hypothyroidism 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, mild (HCC) Chronic airway obstruction, not elsewhere classified Esophageal stricture Stricture and stenosis of esophagus Essential hypertension Unspecified essential hypertension Gastroesophageal reflux disease with esophagitis, unspecified whether hemorrhage Mixed hyperlipidemia Paraesophageal hernia Diaphragmatic hernia without mention of obstruction or gangrene Paroxysmal atrial fibrillation (HCC) Atrial fibrillation 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 without myelopathy Hospital discharge follow-up- Primary Other follow-up examination Retroperitoneal hemorrhage Hemorrhage, unspecified Syncope, unspecified syncope type Essential hypertension Unspecified essential hypertension Paroxysmal atrial fibrillation (HCC) Atrial fibrillation 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) Hx of CABG Postsurgical aortocoronary bypass status Acquired hypothyroidism Unspecified hypothyroidism Mixed hyperlipidemia Anemia, unspecified type Mild intermittent asthma without complication Unspecified asthma DDD (degenerative disc disease), lumbar Degeneration of lumbar or lumbosacral intervertebral disc Low sodium levels Hyposmolality and/or hyponatremia Escobedo's esophagus with low grade dysplasia Escobedo's esophagus Frequent urination Urinary frequency Hypophosphataemia COPD, mild (HCC) Chronic airway obstruction, not elsewhere classified Atherosclerotic heart disease of [place] coronary artery with other forms of angina pectoris (HCC) Abdominal muscle strain, sequela documented in this encounter [facility] note* Diagnosis Pre-operative examination- Primary Preoperative examination, unspecified Acquired hypothyroidism Unspecified hypothyroidism 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, mild (HCC) Chronic airway obstruction, not elsewhere classified Esophageal stricture Stricture and stenosis of esophagus Essential hypertension Unspecified essential hypertension Gastroesophageal reflux disease with esophagitis, unspecified whether hemorrhage Mixed hyperlipidemia Paraesophageal hernia Diaphragmatic hernia without mention of obstruction or gangrene Paroxysmal atrial fibrillation (HCC) Atrial fibrillation 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 without myelopathy Hospital discharge follow-up- Primary Other follow-up examination Retroperitoneal hemorrhage Hemorrhage, unspecified Syncope, unspecified syncope type Essential hypertension Unspecified essential hypertension Paroxysmal atrial fibrillation (HCC) Atrial fibrillation 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) Hx of CABG Postsurgical aortocoronary bypass status Acquired hypothyroidism Unspecified hypothyroidism Mixed hyperlipidemia Anemia, unspecified type Mild intermittent asthma without complication Unspecified asthma DDD (degenerative disc disease), lumbar Degeneration of lumbar or lumbosacral intervertebral disc Low sodium levels Hyposmolality and/or hyponatremia Escobedo's esophagus with low grade dysplasia Escobedo's esophagus Frequent urination Urinary frequency Hypophosphataemia COPD, mild (HCC) Chronic airway obstruction, not elsewhere classified Atherosclerotic heart disease of [place] coronary artery with other forms of angina pectoris (HCC) Abdominal muscle strain, sequela documented in this encounter [facility] note* Diagnosis Pre-operative examination- Primary Preoperative examination, unspecified Acquired hypothyroidism Unspecified hypothyroidism 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, mild (HCC) Chronic airway obstruction, not elsewhere classified Esophageal stricture Stricture and stenosis of esophagus Essential hypertension Unspecified essential hypertension Gastroesophageal reflux disease with esophagitis, unspecified whether hemorrhage Mixed hyperlipidemia Paraesophageal hernia Diaphragmatic hernia without mention of obstruction or gangrene Paroxysmal atrial fibrillation (HCC) Atrial fibrillation 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 without myelopathy Hospital discharge follow-up- Primary Other follow-up examination Retroperitoneal hemorrhage Hemorrhage, unspecified Syncope, unspecified syncope type Essential hypertension Unspecified essential hypertension Paroxysmal atrial fibrillation (HCC) Atrial fibrillation 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) Hx of CABG Postsurgical aortocoronary bypass status Acquired hypothyroidism Unspecified hypothyroidism Mixed hyperlipidemia Anemia, unspecified type Mild intermittent asthma without complication Unspecified asthma DDD (degenerative disc disease), lumbar Degeneration of lumbar or lumbosacral intervertebral disc Low sodium levels Hyposmolality and/or hyponatremia Escobedo's esophagus with low grade dysplasia Escobedo's esophagus Frequent urination Urinary frequency Hypophosphataemia COPD, mild (HCC) Chronic airway obstruction, not elsewhere classified Atherosclerotic heart disease of [place] coronary artery with other forms of angina pectoris (HCC) Sciatica, right side- Primary [facility] Diagnosis Pre-operative examination- Primary Preoperative examination, unspecified Acquired hypothyroidism Unspecified hypothyroidism 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, mild (HCC) Chronic airway obstruction, not elsewhere classified Esophageal stricture Stricture and stenosis of esophagus Essential hypertension Unspecified essential hypertension Gastroesophageal reflux disease with esophagitis, unspecified whether hemorrhage Mixed hyperlipidemia Paraesophageal hernia Diaphragmatic hernia without mention of obstruction or gangrene Paroxysmal atrial fibrillation (HCC) Atrial fibrillation 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 without myelopathy Hospital discharge follow-up- Primary Other follow-up examination Retroperitoneal hemorrhage Hemorrhage, unspecified Syncope, unspecified syncope type Essential hypertension Unspecified essential hypertension Paroxysmal atrial fibrillation (HCC) Atrial fibrillation 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) Hx of CABG Postsurgical aortocoronary bypass status Acquired hypothyroidism Unspecified hypothyroidism Mixed hyperlipidemia Anemia, unspecified type Mild intermittent asthma without complication Unspecified asthma DDD (degenerative disc disease), lumbar Degeneration of lumbar or lumbosacral intervertebral disc Low sodium levels Hyposmolality and/or hyponatremia Escobedo's esophagus with low grade dysplasia Escobedo's esophagus Frequent urination Urinary frequency Hypophosphataemia COPD, mild (HCC) Chronic airway obstruction, not elsewhere classified Atherosclerotic heart disease of [place] coronary artery with other forms of angina pectoris (HCC) Frequent urination Urinary frequency [facility] Diagnosis Pre-operative examination- Primary Preoperative examination, unspecified Acquired hypothyroidism Unspecified hypothyroidism 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, mild (HCC) Chronic airway obstruction, not elsewhere classified Esophageal stricture Stricture and stenosis of esophagus Essential hypertension Unspecified essential hypertension Gastroesophageal reflux disease with esophagitis, unspecified whether hemorrhage Mixed hyperlipidemia Paraesophageal hernia Diaphragmatic hernia without mention of obstruction or gangrene Paroxysmal atrial fibrillation (HCC) Atrial fibrillation 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 without myelopathy Hospital discharge follow-up- Primary Other follow-up examination Retroperitoneal hemorrhage Hemorrhage, unspecified Syncope, unspecified syncope type Essential hypertension Unspecified essential hypertension Paroxysmal atrial fibrillation (HCC) Atrial fibrillation 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) Hx of CABG Postsurgical aortocoronary bypass status Acquired hypothyroidism Unspecified hypothyroidism Mixed hyperlipidemia Anemia, unspecified type Mild intermittent asthma without complication Unspecified asthma DDD (degenerative disc disease), lumbar Degeneration of lumbar or lumbosacral intervertebral disc Low sodium levels Hyposmolality and/or hyponatremia Escobedo's esophagus with low grade dysplasia Escobedo's esophagus Frequent urination Urinary frequency Hypophosphataemia COPD, mild (HCC) Chronic airway obstruction, not elsewhere classified Atherosclerotic heart disease of [place] coronary artery with other forms of angina pectoris (HCC) Right sided sciatica- Primary Sciatica Sciatica, right side [facility] Diagnosis Pre-operative examination- Primary Preoperative examination, unspecified Acquired hypothyroidism Unspecified hypothyroidism 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, mild (HCC) Chronic airway obstruction, not elsewhere classified Esophageal stricture Stricture and stenosis of esophagus Essential hypertension Unspecified essential hypertension Gastroesophageal reflux disease with esophagitis, unspecified whether hemorrhage Mixed hyperlipidemia Paraesophageal hernia Diaphragmatic hernia without mention of obstruction or gangrene Paroxysmal atrial fibrillation (HCC) Atrial fibrillation 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 without myelopathy Hospital discharge follow-up- Primary Other follow-up examination Retroperitoneal hemorrhage Hemorrhage, unspecified Syncope, unspecified syncope type Essential hypertension Unspecified essential hypertension Paroxysmal atrial fibrillation (HCC) Atrial fibrillation 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) Hx of CABG Postsurgical aortocoronary bypass status Acquired hypothyroidism Unspecified hypothyroidism Mixed hyperlipidemia Anemia, unspecified type Mild intermittent asthma without complication Unspecified asthma DDD (degenerative disc disease), lumbar Degeneration of lumbar or lumbosacral intervertebral disc Low sodium levels Hyposmolality and/or hyponatremia Escobedo's esophagus with low grade dysplasia Escobedo's esophagus Frequent urination Urinary frequency Hypophosphataemia COPD, mild (HCC) Chronic airway obstruction, not elsewhere classified Atherosclerotic heart disease of [place] coronary artery with other forms of angina pectoris (HCC) Right sided sciatica- Primary Sciatica [facility] Diagnosis Pre-operative examination- Primary Preoperative examination, unspecified Acquired hypothyroidism Unspecified hypothyroidism 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, mild (HCC) Chronic airway obstruction, not elsewhere classified Esophageal stricture Stricture and stenosis of esophagus Essential hypertension Unspecified essential hypertension Gastroesophageal reflux disease with esophagitis, unspecified whether hemorrhage Mixed hyperlipidemia Paraesophageal hernia Diaphragmatic hernia without mention of obstruction or gangrene Paroxysmal atrial fibrillation (HCC) Atrial fibrillation 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 without myelopathy Hospital discharge follow-up- Primary Other follow-up examination Retroperitoneal hemorrhage Hemorrhage, unspecified Syncope, unspecified syncope type Essential hypertension Unspecified essential hypertension Paroxysmal atrial fibrillation (HCC) Atrial fibrillation 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) Hx of CABG Postsurgical aortocoronary bypass status Acquired hypothyroidism Unspecified hypothyroidism Mixed hyperlipidemia Anemia, unspecified type Mild intermittent asthma without complication Unspecified asthma DDD (degenerative disc disease), lumbar Degeneration of lumbar or lumbosacral intervertebral disc Low sodium levels Hyposmolality and/or hyponatremia Escobedo's esophagus with low grade dysplasia Escobedo's esophagus Frequent urination Urinary frequency Hypophosphataemia COPD, mild (HCC) Chronic airway obstruction, not elsewhere classified Atherosclerotic heart disease of [place] coronary artery with other forms of angina pectoris (HCC) Right sided sciatica- Primary Sciatica [facility] Diagnosis Pre-operative examination- Primary Preoperative examination, unspecified Acquired hypothyroidism Unspecified hypothyroidism 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, mild (HCC) Chronic airway obstruction, not elsewhere classified Esophageal stricture Stricture and stenosis of esophagus Essential hypertension Unspecified essential hypertension Gastroesophageal reflux disease with esophagitis, unspecified whether hemorrhage Mixed hyperlipidemia Paraesophageal hernia Diaphragmatic hernia without mention of obstruction or gangrene Paroxysmal atrial fibrillation (HCC) Atrial fibrillation 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 without myelopathy Hospital discharge follow-up- Primary Other follow-up examination Retroperitoneal hemorrhage Hemorrhage, unspecified Syncope, unspecified syncope type Essential hypertension Unspecified essential hypertension Paroxysmal atrial fibrillation (HCC) Atrial fibrillation 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) Hx of CABG Postsurgical aortocoronary bypass status Acquired hypothyroidism Unspecified hypothyroidism Mixed hyperlipidemia Anemia, unspecified type Mild intermittent asthma without complication Unspecified asthma DDD (degenerative disc disease), lumbar Degeneration of lumbar or lumbosacral intervertebral disc Low sodium levels Hyposmolality and/or hyponatremia Escobedo's esophagus with low grade dysplasia Escobedo's esophagus Frequent urination Urinary frequency Hypophosphataemia COPD, mild (HCC) Chronic airway obstruction, not elsewhere classified Atherosclerotic heart disease of [place] coronary artery with other forms of angina pectoris (HCC) Right sided sciatica- Primary Sciatica [facility] Diagnosis Pre-operative examination- Primary Preoperative examination, unspecified Acquired hypothyroidism Unspecified hypothyroidism 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, mild (HCC) Chronic airway obstruction, not elsewhere classified Esophageal stricture Stricture and stenosis of esophagus Essential hypertension Unspecified essential hypertension Gastroesophageal reflux disease with esophagitis, unspecified whether hemorrhage Mixed hyperlipidemia Paraesophageal hernia Diaphragmatic hernia without mention of obstruction or gangrene Paroxysmal atrial fibrillation (HCC) Atrial fibrillation 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 without myelopathy Hospital discharge follow-up- Primary Other follow-up examination Retroperitoneal hemorrhage Hemorrhage, unspecified Syncope, unspecified syncope type Essential hypertension Unspecified essential hypertension Paroxysmal atrial fibrillation (HCC) Atrial fibrillation 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) Hx of CABG Postsurgical aortocoronary bypass status Acquired hypothyroidism Unspecified hypothyroidism Mixed hyperlipidemia Anemia, unspecified type Mild intermittent asthma without complication Unspecified asthma DDD (degenerative disc disease), lumbar Degeneration of lumbar or lumbosacral intervertebral disc Low sodium levels Hyposmolality and/or hyponatremia Escobedo's esophagus with low grade dysplasia Escobedo's esophagus Frequent urination Urinary frequency Hypophosphataemia COPD, mild (HCC) Chronic airway obstruction, not elsewhere classified Atherosclerotic heart disease of [place] coronary artery with other forms of angina pectoris (HCC) Right sided sciatica- Primary Sciatica documented in this encounter [facility] note* Diagnosis Pre-operative examination- Primary Preoperative examination, unspecified Acquired hypothyroidism Unspecified hypothyroidism 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, mild (HCC) Chronic airway obstruction, not elsewhere classified Esophageal stricture Stricture and stenosis of esophagus Essential hypertension Unspecified essential hypertension Gastroesophageal reflux disease with esophagitis, unspecified whether hemorrhage Mixed hyperlipidemia Paraesophageal hernia Diaphragmatic hernia without mention of obstruction or gangrene Paroxysmal atrial fibrillation (HCC) Atrial fibrillation 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 without myelopathy Hospital discharge follow-up- Primary Other follow-up examination Retroperitoneal hemorrhage Hemorrhage, unspecified Syncope, unspecified syncope type Essential hypertension Unspecified essential hypertension Paroxysmal atrial fibrillation (HCC) Atrial fibrillation 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) Hx of CABG Postsurgical aortocoronary bypass status Acquired hypothyroidism Unspecified hypothyroidism Mixed hyperlipidemia Anemia, unspecified type Mild intermittent asthma without complication Unspecified asthma DDD (degenerative disc disease), lumbar Degeneration of lumbar or lumbosacral intervertebral disc Low sodium levels Hyposmolality and/or hyponatremia Escobedo's esophagus with low grade dysplasia Escobedo's esophagus Frequent urination Urinary frequency Hypophosphataemia COPD, mild (HCC) Chronic airway obstruction, not elsewhere classified Atherosclerotic heart disease of [place] coronary artery with other forms of angina pectoris (HCC) Right sided sciatica- Primary Sciatica documented in this encounter [facility] note* Diagnosis Pre-operative examination- Primary Preoperative examination, unspecified Acquired hypothyroidism Unspecified hypothyroidism 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, mild (HCC) Chronic airway obstruction, not elsewhere classified Esophageal stricture Stricture and stenosis of esophagus Essential hypertension Unspecified essential hypertension Gastroesophageal reflux disease with esophagitis, unspecified whether hemorrhage Mixed hyperlipidemia Paraesophageal hernia Diaphragmatic hernia without mention of obstruction or gangrene Paroxysmal atrial fibrillation (HCC) Atrial fibrillation 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 without myelopathy Hospital discharge follow-up- Primary Other follow-up examination Retroperitoneal hemorrhage Hemorrhage, unspecified Syncope, unspecified syncope type Essential hypertension Unspecified essential hypertension Paroxysmal atrial fibrillation (HCC) Atrial fibrillation 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) Hx of CABG Postsurgical aortocoronary bypass status Acquired hypothyroidism Unspecified hypothyroidism Mixed hyperlipidemia Anemia, unspecified type Mild intermittent asthma without complication Unspecified asthma DDD (degenerative disc disease), lumbar Degeneration of lumbar or lumbosacral intervertebral disc Low sodium levels Hyposmolality and/or hyponatremia Escobedo's esophagus with low grade dysplasia Escobedo's esophagus Frequent urination Urinary frequency Hypophosphataemia COPD, mild (HCC) Chronic airway obstruction, not elsewhere classified Atherosclerotic heart disease of [place] coronary artery with other forms of angina pectoris (HCC) SOB (shortness of breath)- Primary Shortness of breath Mild intermittent asthma without complication Unspecified asthma Paroxysmal atrial fibrillation (HCC) Atrial fibrillation 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) Umbilical hernia without obstruction or gangrene Umbilical hernia without mention of obstruction or gangrene Acute constipation Unspecified constipation [facility] Diagnosis Pre-operative examination- Primary Preoperative examination, unspecified Acquired hypothyroidism Unspecified hypothyroidism 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, mild (HCC) Chronic airway obstruction, not elsewhere classified Esophageal stricture Stricture and stenosis of esophagus Essential hypertension Unspecified essential hypertension Gastroesophageal reflux disease with esophagitis, unspecified whether hemorrhage Mixed hyperlipidemia Paraesophageal hernia Diaphragmatic hernia without mention of obstruction or gangrene Paroxysmal atrial fibrillation (HCC) Atrial fibrillation 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 without myelopathy Hospital discharge follow-up- Primary Other follow-up examination Retroperitoneal hemorrhage Hemorrhage, unspecified Syncope, unspecified syncope type Essential hypertension Unspecified essential hypertension Paroxysmal atrial fibrillation (HCC) Atrial fibrillation 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) Hx of CABG Postsurgical aortocoronary bypass status Acquired hypothyroidism Unspecified hypothyroidism Mixed hyperlipidemia Anemia, unspecified type Mild intermittent asthma without complication Unspecified asthma DDD (degenerative disc disease), lumbar Degeneration of lumbar or lumbosacral intervertebral disc Low sodium levels Hyposmolality and/or hyponatremia Escobedo's esophagus with low grade dysplasia Escobedo's esophagus Frequent urination Urinary frequency Hypophosphataemia COPD, mild (HCC) Chronic airway obstruction, not elsewhere classified Atherosclerotic heart disease of [place] coronary artery with other forms of angina pectoris (HCC) Acquired hypothyroidism- Primary Unspecified hypothyroidism documented in this encounter [facility] note* Diagnosis Pre-operative examination- Primary Preoperative examination, unspecified Acquired hypothyroidism Unspecified hypothyroidism 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, mild (HCC) Chronic airway obstruction, not elsewhere classified Esophageal stricture Stricture and stenosis of esophagus Essential hypertension Unspecified essential hypertension Gastroesophageal reflux disease with esophagitis, unspecified whether hemorrhage Mixed hyperlipidemia Paraesophageal hernia Diaphragmatic hernia without mention of obstruction or gangrene Paroxysmal atrial fibrillation (HCC) Atrial fibrillation 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 without myelopathy Hospital discharge follow-up- Primary Other follow-up examination Retroperitoneal hemorrhage Hemorrhage, unspecified Syncope, unspecified syncope type Essential hypertension Unspecified essential hypertension Paroxysmal atrial fibrillation (HCC) Atrial fibrillation 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) Hx of CABG Postsurgical aortocoronary bypass status Acquired hypothyroidism Unspecified hypothyroidism Mixed hyperlipidemia Anemia, unspecified type Mild intermittent asthma without complication Unspecified asthma DDD (degenerative disc disease), lumbar Degeneration of lumbar or lumbosacral intervertebral disc Low sodium levels Hyposmolality and/or hyponatremia Escobedo's esophagus with low grade dysplasia Escobedo's esophagus Frequent urination Urinary frequency Hypophosphataemia COPD, mild (HCC) Chronic airway obstruction, not elsewhere classified Atherosclerotic heart disease of [place] coronary artery with other forms of angina pectoris (HCC) Right sided sciatica- Primary Sciatica documented in this encounter [facility] note* Diagnosis Pre-operative examination- Primary Preoperative examination, unspecified Acquired hypothyroidism Unspecified hypothyroidism 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, mild (HCC) Chronic airway obstruction, not elsewhere classified Esophageal stricture Stricture and stenosis of esophagus Essential hypertension Unspecified essential hypertension Gastroesophageal reflux disease with esophagitis, unspecified whether hemorrhage Mixed hyperlipidemia Paraesophageal hernia Diaphragmatic hernia without mention of obstruction or gangrene Paroxysmal atrial fibrillation (HCC) Atrial fibrillation 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 without myelopathy Hospital discharge follow-up- Primary Other follow-up examination Retroperitoneal hemorrhage Hemorrhage, unspecified Syncope, unspecified syncope type Essential hypertension Unspecified essential hypertension Paroxysmal atrial fibrillation (HCC) Atrial fibrillation 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) Hx of CABG Postsurgical aortocoronary bypass status Acquired hypothyroidism Unspecified hypothyroidism Mixed hyperlipidemia Anemia, unspecified type Mild intermittent asthma without complication Unspecified asthma DDD (degenerative disc disease), lumbar Degeneration of lumbar or lumbosacral intervertebral disc Low sodium levels Hyposmolality and/or hyponatremia Escobedo's esophagus with low grade dysplasia Escobedo's esophagus Frequent urination Urinary frequency Hypophosphataemia COPD, mild (HCC) Chronic airway obstruction, not elsewhere classified Atherosclerotic heart disease of [place] coronary artery with other forms of angina pectoris (HCC) Recurrent incisional hernia- Primary Umbilical hernia without obstruction or gangrene Umbilical hernia without mention of obstruction or gangrene Umbilical hernia without obstruction or gangrene Umbilical hernia without mention of obstruction or gangrene Recurrent incisional hernia documented in this encounter [facility] note* Diagnosis Pre-operative examination- Primary Preoperative examination, unspecified Acquired hypothyroidism Unspecified hypothyroidism 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, mild (HCC) Chronic airway obstruction, not elsewhere classified Esophageal stricture Stricture and stenosis of esophagus Essential hypertension Unspecified essential hypertension Gastroesophageal reflux disease with esophagitis, unspecified whether hemorrhage Mixed hyperlipidemia Paraesophageal hernia Diaphragmatic hernia without mention of obstruction or gangrene Paroxysmal atrial fibrillation (HCC) Atrial fibrillation 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 without myelopathy Hospital discharge follow-up- Primary Other follow-up examination Retroperitoneal hemorrhage Hemorrhage, unspecified Syncope, unspecified syncope type Essential hypertension Unspecified essential hypertension Paroxysmal atrial fibrillation (HCC) Atrial fibrillation 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) Hx of CABG Postsurgical aortocoronary bypass status Acquired hypothyroidism Unspecified hypothyroidism Mixed hyperlipidemia Anemia, unspecified type Mild intermittent asthma without complication Unspecified asthma DDD (degenerative disc disease), lumbar Degeneration of lumbar or lumbosacral intervertebral disc Low sodium levels Hyposmolality and/or hyponatremia Escobedo's esophagus with low grade dysplasia Escobedo's esophagus Frequent urination Urinary frequency Hypophosphataemia COPD, mild (HCC) Chronic airway obstruction, not elsewhere classified Atherosclerotic heart disease of [place] coronary artery with other forms of angina pectoris (HCC) Right sided sciatica- Primary Sciatica Umbilical hernia without obstruction or gangrene Umbilical hernia without mention of obstruction or gangrene Recurrent incisional hernia documented in this encounter [facility] note* Diagnosis Pre-operative examination- Primary Preoperative examination, unspecified Acquired hypothyroidism Unspecified hypothyroidism 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, mild (HCC) Chronic airway obstruction, not elsewhere classified Esophageal stricture Stricture and stenosis of esophagus Essential hypertension Unspecified essential hypertension Gastroesophageal reflux disease with esophagitis, unspecified whether hemorrhage Mixed hyperlipidemia Paraesophageal hernia Diaphragmatic hernia without mention of obstruction or gangrene Paroxysmal atrial fibrillation (HCC) Atrial fibrillation 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 without myelopathy Hospital discharge follow-up- Primary Other follow-up examination Retroperitoneal hemorrhage Hemorrhage, unspecified Syncope, unspecified syncope type Essential hypertension Unspecified essential hypertension Paroxysmal atrial fibrillation (HCC) Atrial fibrillation 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) Hx of CABG Postsurgical aortocoronary bypass status Acquired hypothyroidism Unspecified hypothyroidism Mixed hyperlipidemia Anemia, unspecified type Mild intermittent asthma without complication Unspecified asthma DDD (degenerative disc disease), lumbar Degeneration of lumbar or lumbosacral intervertebral disc Low sodium levels Hyposmolality and/or hyponatremia Escobedo's esophagus with low grade dysplasia Escobedo's esophagus Frequent urination Urinary frequency Hypophosphataemia COPD, mild (HCC) Chronic airway obstruction, not elsewhere classified Atherosclerotic heart disease of [place] coronary artery with other forms of angina pectoris (HCC) Hospital discharge follow-up- Primary Other follow-up examination Fall, sequela Visit for suture removal Encounter for removal of sutures Injury of left shoulder, subsequent encounter documented in this encounter [facility] note* Diagnosis Pre-operative examination- Primary Preoperative examination, unspecified Acquired hypothyroidism Unspecified hypothyroidism 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, mild (HCC) Chronic airway obstruction, not elsewhere classified Esophageal stricture Stricture and stenosis of esophagus Essential hypertension Unspecified essential hypertension Gastroesophageal reflux disease with esophagitis, unspecified whether hemorrhage Mixed hyperlipidemia Paraesophageal hernia Diaphragmatic hernia without mention of obstruction or gangrene Paroxysmal atrial fibrillation (HCC) Atrial fibrillation 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 without myelopathy Hospital discharge follow-up- Primary Other follow-up examination Retroperitoneal hemorrhage Hemorrhage, unspecified Syncope, unspecified syncope type Essential hypertension Unspecified essential hypertension Paroxysmal atrial fibrillation (HCC) Atrial fibrillation 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) Hx of CABG Postsurgical aortocoronary bypass status Acquired hypothyroidism Unspecified hypothyroidism Mixed hyperlipidemia Anemia, unspecified type Mild intermittent asthma without complication (HCC) Unspecified asthma DDD (degenerative disc disease), lumbar Degeneration of lumbar or lumbosacral intervertebral disc Low sodium levels Hyposmolality and/or hyponatremia Escobedo's esophagus with low grade dysplasia Escobedo's esophagus Frequent urination Urinary frequency Hypophosphataemia COPD, mild (HCC) Chronic airway obstruction, not elsewhere classified Atherosclerotic heart disease of [place] coronary artery with other forms of angina pectoris Acquired hypothyroidism- Primary Unspecified hypothyroidism Essential hypertension Unspecified essential hypertension Mixed hyperlipidemia 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) Hx of CABG Postsurgical aortocoronary bypass status Paroxysmal atrial fibrillation (HCC) Atrial fibrillation Mild intermittent asthma without complication (HCC) Unspecified asthma Anemia, unspecified type COPD, mild (HCC) Chronic airway obstruction, not elsewhere classified 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 Escobedo's esophagus Gastroesophageal reflux disease with esophagitis, unspecified whether hemorrhage Chronic abdominal pain Abdominal pain, unspecified site Umbilical hernia without obstruction or gangrene Umbilical hernia without mention of obstruction or gangrene Rectus diastasis Diastasis of muscle Nausea Nausea alone [facility] Diagnosis Pre-operative examination- Primary Preoperative examination, unspecified Acquired hypothyroidism Unspecified hypothyroidism 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, mild (HCC) Chronic airway obstruction, not elsewhere classified Esophageal stricture Stricture and stenosis of esophagus Essential hypertension Unspecified essential hypertension Gastroesophageal reflux disease with esophagitis, unspecified whether hemorrhage Mixed hyperlipidemia Paraesophageal hernia Diaphragmatic hernia without mention of obstruction or gangrene Paroxysmal atrial fibrillation (HCC) Atrial fibrillation 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 without myelopathy Hospital discharge follow-up- Primary Other follow-up examination Retroperitoneal hemorrhage Hemorrhage, unspecified Syncope, unspecified syncope type Essential hypertension Unspecified essential hypertension Paroxysmal atrial fibrillation (HCC) Atrial fibrillation 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) Hx of CABG Postsurgical aortocoronary bypass status Acquired hypothyroidism Unspecified hypothyroidism Mixed hyperlipidemia Anemia, unspecified type Mild intermittent asthma without complication (HCC) Unspecified asthma DDD (degenerative disc disease), lumbar Degeneration of lumbar or lumbosacral intervertebral disc Low sodium levels Hyposmolality and/or hyponatremia Escobedo's esophagus with low grade dysplasia Escobedo's esophagus Frequent urination Urinary frequency Hypophosphataemia COPD, mild (HCC) Chronic airway obstruction, not elsewhere classified Atherosclerotic heart disease of [place] coronary artery with other forms of angina pectoris JOHNSON (dyspnea on exertion)- Primary Other dyspnea and respiratory abnormality [facility] Diagnosis Pre-operative examination- Primary Preoperative examination, unspecified Acquired hypothyroidism Unspecified hypothyroidism 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, mild (HCC) Chronic airway obstruction, not elsewhere classified Esophageal stricture Stricture and stenosis of esophagus Essential hypertension Unspecified essential hypertension Gastroesophageal reflux disease with esophagitis, unspecified whether hemorrhage Mixed hyperlipidemia Paraesophageal hernia Diaphragmatic hernia without mention of obstruction or gangrene Paroxysmal atrial fibrillation (HCC) Atrial fibrillation 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 without myelopathy Hospital discharge follow-up- Primary Other follow-up examination Retroperitoneal hemorrhage Hemorrhage, unspecified Syncope, unspecified syncope type Essential hypertension Unspecified essential hypertension Paroxysmal atrial fibrillation (HCC) Atrial fibrillation 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) Hx of CABG Postsurgical aortocoronary bypass status Acquired hypothyroidism Unspecified hypothyroidism Mixed hyperlipidemia Anemia, unspecified type Mild intermittent asthma without complication (HCC) Unspecified asthma DDD (degenerative disc disease), lumbar Degeneration of lumbar or lumbosacral intervertebral disc Low sodium levels Hyposmolality and/or hyponatremia Escobedo's esophagus with low grade dysplasia Escobedo's esophagus Frequent urination Urinary frequency Hypophosphataemia COPD, mild (HCC) Chronic airway obstruction, not elsewhere classified Atherosclerotic heart disease of [place] coronary artery with other forms of angina pectoris Mild persistent asthma without complication (HCC)- Primary Unspecified asthma Former smoker Personal history of tobacco use, presenting hazards to health Elevated diaphragm Disorders of diaphragm [facility] Diagnosis Pre-operative examination- Primary Preoperative examination, unspecified Acquired hypothyroidism Unspecified hypothyroidism 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, mild (HCC) Chronic airway obstruction, not elsewhere classified Esophageal stricture Stricture and stenosis of esophagus Essential hypertension Unspecified essential hypertension Gastroesophageal reflux disease with esophagitis, unspecified whether hemorrhage Mixed hyperlipidemia Paraesophageal hernia Diaphragmatic hernia without mention of obstruction or gangrene Paroxysmal atrial fibrillation (HCC) Atrial fibrillation 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 without myelopathy Hospital discharge follow-up- Primary Other follow-up examination Retroperitoneal hemorrhage Hemorrhage, unspecified Syncope, unspecified syncope type Essential hypertension Unspecified essential hypertension Paroxysmal atrial fibrillation (HCC) Atrial fibrillation 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) Hx of CABG Postsurgical aortocoronary bypass status Acquired hypothyroidism Unspecified hypothyroidism Mixed hyperlipidemia Anemia, unspecified type Mild intermittent asthma without complication (HCC) Unspecified asthma DDD (degenerative disc disease), lumbar Degeneration of lumbar or lumbosacral intervertebral disc Low sodium levels Hyposmolality and/or hyponatremia Escobedo's esophagus with low grade dysplasia Escobedo's esophagus Frequent urination Urinary frequency Hypophosphataemia COPD, mild (HCC) Chronic airway obstruction, not elsewhere classified Atherosclerotic heart disease of [place] coronary artery with other forms of angina pectoris Incisional hernia, without obstruction or gangrene- Primary Incisional hernia without mention of obstruction or gangrene Incisional hernia, without obstruction or gangrene Incisional hernia without mention of obstruction or gangrene documented [facility] instructionsWT[facility] Work Phone: Hospital Discharge instructions Additional Instructions Thank you for trusting us with your care today! Please take ibuprofen (2 pills, 400 mg) every 6 hours as needed for pain and fever control. Please take Augmentin as prescribed finish entire course Please return to the emergency department if your symptoms change or worsen. Specifically if your symptoms or not better within 5 days. Develop worsening swelling, pain, redness, fever if you are unable to take antibiotics by mouth. Please follow with your primary care physician for further outpatient evaluation and management.[facility] Work Phone: Hospital Discharge instructions Additional Instructions 1. Apply bacitracin ointment twice a day to the abrasions of your forehead, hand and knee. 2. Sutures to be removed in 10 daysWTuscarawas Hospital Work Phone: Reason for referral (narrative)* Outpatient Procedure (Routine) - Pending Review Specialty Diagnoses / Procedures Referred By Stefanac t Referred To Contact [facility] Diagnoses Diaphragmatic hernia with obstruction, without gangrene Procedures LUNG DIFFUSION CAPACITY (DLCO) DIFFUSING CAPACITY Julián Boothe MD [address] [place] [address] [facility] [address] [place] [address] Referral ID Status Reason Start Date Expiration Date Visits Requested Visits Authorized [id number] Pending Review Auto-Generat ed Referral 05/31/2021 06/30/2022 1 1 * Outpatient Procedure (Routine) - Pending Review Specialty Diagnoses / Procedures Referred By Contac t Referred To Contact [facility] Diagnoses Diaphragmatic hernia with obstruction, without gangrene Procedures SPIROMETRY WITH DILATOR IF OBSTRUCTED BRNCDILAT RSPSE SPMTRY PRE&POST-BRNCDILAT ADMN Julián Boothe MD [address] [place] [address] [place] [address] Referral ID Status Reason Start Date Expiration Date Visits Requested Visits Authorized [id number] Pending Review Auto-Generat ed Referral 05/31/2021 06/30/2022 1 1 * MRI/CT (Routine) - Pending Review Specialty Diagnoses / Procedures Referred By Contac t Referred To Contact CT IMAGING Diagnoses Diaphragmatic hernia with obstruction, without gangrene Procedures CT CHEST WO IVCON DIAGNOSTIC COMPUTED TOMOGRAPHY THORAX W/O CNTRST Julián Boothe MD [address] [place] [address] Ct Imaging Referral ID Status Reason Start Date Expiration Date Visits Requested Visits Authorized [id number] Pending Review Auto-Generat ed Referral 05/31/2021 06/30/2022 1 1 [facility] for referral (narrative)* Diagnostic Procedure Only (Routine) - Pending Review Specialty Diagnoses / Procedures Referred By Contac t Referred To Contact XR IMAGING Diagnoses Left elbow pain Procedures XR ELBOW GENERAL 2V AP/LAT LEFT RADEX ELBOW 2 VIEWS Kel Sun MD [address] [place] [address] Xr Imaging Referral ID Status Reason Start Date Expiration Date Visits Requested Visits Authorized [id number] Pending Review Auto-Generat ed Referral 2 12/29/2022 1 1 [facility] for referral (narrative)* Outpatient Procedure (Routine) - Pending Review Specialty Diagnoses / Procedures Referred By Contac t Referred To Contact [facility] Diagnoses Escobedo's esophagus with low grade dysplasia Procedures EGD DIAGNOSTIC ESOPHAGOGASTRODUODENOSC OPY TRANSORAL DIAGNOSTIC Regina Oswald MD [address] [place] [address] [facility] [address] [place] [address] Referral ID Status Reason Start Date Expiration Date Visits Requested Visits Authorized [id number] Pending Review Auto-Generat ed Referral 03/16/2022 03/16/2023 1 1 [facility] for referral (narrative)* Outpatient Procedure (Routine) - Closed Specialty Diagnoses / Procedures Referred By Contac t Referred To Contact [facility] Diagnoses Escobedo's esophagus with low grade dysplasia Procedures EGD DIAGNOSTIC ESOPHAGOGASTRODUODENOSC OPY TRANSORAL DIAGNOSTIC Regina Oswald MD [address] [place] [address] [facility] [address] [place] [address] Referral ID Status Reason Start Date Expiration Date V isits Requested Visits Authorized [id number] Closed Auto-Generate d Referral 03/16/2022 03/16/2023 1 1 [facility] for referral (narrative)* Outpatient Procedure (Routine) - Closed Specialty Diagnoses / Procedures [facility] Referred To [facility] Diagnoses Hiatal hernia Procedures EGD DIAGNOSTIC ESOPHAGOGASTRODUODENOSC OPY TRANSORAL DIAGNOSTIC Julián Boothe MD [address] [place] [address] [facility] [address] [place] [address] Referral ID Status Reason Start Date Expiration Date V isits Requested Visits Authorized [id number] Closed Auto-Generate d Referral 07/07/2022 07/08/2023 1 1 [facility] for referral (narrative)* Diagnostic Procedure Only (Routine) - Closed Specialty Diagnoses / Procedures [facility] Referred To Contact XR IMAGING Diagnoses Hiatal hernia Procedures XR ESOPHAGRAM RADIOLOGIC EXAM ESOPHAGUS SINGLE CONTRAST STUDY Valentina Sánchez APRN.CNP [address] [place] [address] Xr Imaging [id number] Referral ID Status Reason Start Date Expiration Date V isits Requested Visits Authorized [id number] Closed Auto-Generate d Referral 09/04/2022 10/04/2023 1 1 [facility] for referral (narrative)* Diagnostic Procedure Only (Routine) - Closed Specialty Diagnoses / Procedures Referred By Contac t Referred To Contact XR IMAGING Diagnoses Left arm pain Cervical radiculopathy Procedures XR CERV OTHER 4V AP/LAT/OBL RADEX SPINE CERVICAL 4 OR 5 VIEWS Kel Sun MD [address] [place] [address] [place] [address] Referral ID Status Reason Start Date Expiration Date V isits Requested Visits Authorized [id number] Closed Auto-Generate d Referral 12/05/2021 01/04/2023 1 1 [facility] for referral (narrative)* Diagnostic Procedure Only (Routine) - Closed Specialty Diagnoses / Procedures Referred By Contac t Referred To Contact XR IMAGING Diagnoses Left elbow pain Procedures XR ELBOW GENERAL 2V AP/LAT LEFT RADEX ELBOW 2 VIEWS Kel Sun MD [address] [place] [address] [place] [address] Referral ID Status Reason Start Date Expiration Date V isits Requested Visits Authorized [id number] Closed Auto-Generate d Referral 11/29/2021 12/29/2022 1 1 [facility] for referral (narrative)* Diagnostic Procedure Only (Routine) - Pending Review Specialty Diagnoses / Procedures Referred By Contac t Referred To Contact US IMAGING Diagnoses Retroperitoneal hematoma Procedures US KIDNEY/BLADDER US RETROPERITONEAL REAL TIME W/IMAGE COMPLETE Hoang Wright MD [address] [place] [address] [place] [address] Referral ID Status Reason Start Date Expiration Date Visits Requested Visits Authorized [id number] Pending Review Auto-Generat ed Referral 10/02/2023 07/31/2024 1 1 [facility] for referral (narrative)* Outpatient Procedure (Routine) - Authorized Specialty Diagnoses / Procedures Referred By Contac t Referred To Contact [facility] Diagnoses Syncope, unspecified syncope type Essential hypertension Paroxysmal atrial fibrillation (HCC) 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) Hx of CABG Procedures US CAROTID ARTERIES LETITIA V[facility] LAB DUPLEX SCAN EXTRACRANIAL ART COMPL BI STUDY Eloisa Espinal MD [address] [place] [address] [facility] [address] [place] [address] Referral ID Status Reason Start Date Expiration Date Visits Requested Visits Authorized [id number] Authorized Auto-Generat ed Referral 07/12/2023 07/11/2024 1 1 * Outpatient Procedure (Routine) - Authorized Specialty Diagnoses / Procedures Referred By Apoorva Referred To Contact [facility] Diagnoses Syncope, unspecified syncope type Essential hypertension Paroxysmal atrial fibrillation (HCC) 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 Referred To Contact US IMAGING Diagnoses Neoplasm of uncertain behavior of right kidney Procedures US KIDNEY/BLADDER US RETROPERITONEAL REAL TIME W/IMAGE COMPLETE Hoang Wright MD [address] [place] [address] [place] [address] Referral ID Status Reason Start Date Expiration Date Visits Requested Visits Authorized [id number] Authorized Auto-Generat ed Referral 10/10/2024 11/09/2024 1 1 [facility] for referral (narrative)No reason for referral information availableWTuscarawas Hospital Work Phone: Reason for visit Narrative* Outpatient Procedure (Routine) - Closed Specialty Diagnoses / Procedures Referred By Apoorva tesfaye Referred To Contact [facility] Diagnoses Escobedo's esophagus with low grade dysplasia Procedures EGD DIAGNOSTIC ESOPHAGOGASTRODUODENOSC OPY TRANSORAL DIAGNOSTIC Regina Oswald MD [address] [place] [address] [facility] [address] [place] [address] Referral ID Status Reason Start Date Expiration Date V isits Requested Visits Authorized [id number] Closed Auto-Generate d Referral 03/16/2022 03/16/2023 1 1 [facility] for visit Narrative* Outpatient Procedure (Routine) - Closed Specialty Diagnoses / Procedures Referred By Contac t Referred To Contact [facility] Diagnoses Hiatal hernia Procedures EGD DIAGNOSTIC ESOPHAGOGASTRODUODENOSC OPY TRANSORAL DI[place]NOST[place] Jul[place]án [place] [address] [place], [place] [id number] [facility] [place] [id number] Referral ID Status Reason Start Date Expiration Date V isits Requested Visits Authorized [id number] Closed Auto-Generate d Referral 07/07/2022 07/08/2023 1 1 [facility] for visit Narrative* Diagnostic Procedure Only (Routine) - Closed Specialty Diagnoses / Procedures Referred By Contac t Referred To Contact XR IMAGING Diagnoses Left arm pain Cervical radiculopathy Procedures XR CERV OTHER 4V AP/LAT/OBL RADEX SPINE CERVICAL 4 OR 5 VIEWS Kel Sun MD [address] [place] [address] Xr Imaging [id number] Referral ID Status Reason Start Date Expiration Date V isits Requested Visits Authorized [id number] Closed Auto-Generate d Referral 12/05/2021 01/04/2023 1 1 [facility] for visit Narrative* Diagnostic Procedure Only (Routine) - Closed Specialty Diagnoses / Procedures Referred By Contac t Referred To Contact XR IMAGING Diagnoses Left elbow pain Procedures XR ELBOW GENERAL 2V AP/LAT LEFT RADEX ELBOW 2 VIEWS Kel Sun MD [address] [place] [address] [place] [address] Referral ID Status Reason Start Date Expiration Date V isits Requested Visits Authorized [id number] Closed Auto-Generate d Referral 11/29/2021 12/29/2022 1 1 [facility] for visit Narrative* Diagnostic Procedure Only (Routine) - Closed Specialty Diagnoses / Procedures Referred By Contac t Referred To Contact US IMAGING Diagnoses Retroperitoneal hematoma Procedures US KIDNEY/BLADDER US RETROPERITONEAL REAL TIME W/IMAGE COMPLETE Hoang Wright MD [address] [place] [address] [place] [address] Referral ID Status Reason Start Date Expiration Date V isits Requested Visits Authorized [id number] Closed Auto-Generate d Referral 10/02/2023 07/31/2024 1 1 [facility] Summary Purpose Family History No Family History Records Found Relationship Condition Age at Onset Recorded Date/T yamila mother Pulmonary emphysema Unknown father Pulmonary emphysema Unknown Advance Directives No Advanced Directives Records FoundDocuments on File Type Date Recorded Patient Clinical Research Tech Expl anation Advance Directive(s) 06/10/2020 2:13 PM Advance Directive(s) 07/23/2018 6:10 PM Advance Directive(s) 06/28/2018 7:16 AM Advance Directive(s) 06/24/2018 5:18 PM Advance Directive(s) 05/31/2018 1:50 PM Advance Directive(s) 05/15/2018 2:23 PM Advance Directive(s) 04/24/2018 2:21 PM Advance Directive(s) 04/23/2018 1:59 PM Advance Directive(s) 03/20/2018 2:54 PM Advance Directive(s) 02/07/2018 8:58 AM Advance Directive(s) 12/27/2017 9:06 AM Advance Directive(s) 10/08/2017 8:42 AM Advance Directive(s) 01/09/2017 9:36 AM Advance Directive(s) 01/01/2017 3:23 PM Advance Directive(s) 10/03/2016 11:36 AM Advance Directive(s) 07/03/2016 10:44 AM Advance Directive(s) 08/05/2015 10:22 AM Advance Directive(s) 07/29/2015 2:50 PM Advance Directive(s) 08/28/2013 7:59 AM HP OA Advance Directive(s) 08/28/2013 8:08 AM luis hernández Latest Code Status on File Code Status Date Activated Date Inactivated Comments Full Code 12/26/2018 11:09 AM Documents on File Type Date Recorded Patient Clinical Research Tech Expl anation Advance Directive(s) 06/10/2020 2:13 PM Advance Directive(s) 07/23/2018 6:10 PM Advance Directive(s) 06/28/2018 7:16 AM Advance Directive(s) 06/24/2018 5:18 PM Advance Directive(s) 05/31/2018 1:50 PM Advance Directive(s) 05/15/2018 2:23 PM Advance Directive(s) 04/24/2018 2:21 PM Advance Directive(s) 04/23/2018 1:59 PM Advance Directive(s) 03/20/2018 2:54 PM Advance Directive(s) 02/07/2018 8:58 AM Advance Directive(s) 12/27/2017 9:06 AM Advance Directive(s) 10/08/2017 8:42 AM Advance Directive(s) 01/09/2017 9:36 AM Advance Directive(s) 01/01/2017 3:23 PM Advance Directive(s) 10/03/2016 11:36 AM Advance Directive(s) 07/03/2016 10:44 AM Advance Directive(s) 08/05/2015 10:22 AM Advance Directive(s) 07/29/2015 2:50 PM Advance Directive(s) 08/28/2013 7:59 AM HP OA Advance Directive(s) 08/28/2013 8:08 AM luis miramontes will Latest Code Status on File Code Status Date Activated Date Inactivated Comments Full Code 12/26/2018 11:09 AM Advance Directive Response Recorded Date/ Time Living Will Yes September 17, 2021 1:57pm Power of Manager Cardiac Cath Yes September 17 1:57pm Name of Medical Power of Manager Cardiac Cath September 17, 2021 1:57pm Advance Directive Response Recorded Date/ Time Name of Medical Power of Manager Cardiac Cath wan - September 17, 2021 3:47pm Living Will Yes September 17, 2021 3:47pm Power of Manager Cardiac Cath Yes September 17 3:47pm Documents on File Type Date Recorded Patient Clinical Research Tech Expl anation Advance Directive(s) 08/28/2013 7:59 AM HP OA Advance Directive(s) 08/28/2013 8:08 AM li vinmomo will Documents on File Type Date Recorded Patient Clinical Research Tech Expl anation Advance Directive(s) 08/28/2013 7:59 AM HP OA Advance Directive(s) 08/28/2013 8:08 AM li ving will Documents on File Type Date Recorded Patient Clinical Research Tech Expl anation Advance Directive(s) 08/28/2013 8:08 AM li ving will Advance Directive(s) 08/28/2013 7:59 AM HP OA Latest Code Status on File Code Status Date Activated Date Inactivated Comments Full Code 12/26/2018 11:09 AM Documents on File Type Date Recorded Patient Clinical Research Tech Expl anation Advance Directive(s) 08/28/2013 8:08 AM li shanneng will Advance Directive(s) 08/28/2013 7:59 AM HP OA Latest Code Status on File Code Status Date Activated Date Inactivated Comments Full Code 12/26/2018 11:09 AM 08/24/2022 5:52 AM Latest Code Status on File Code Status Date Activated Date Inactivated Comments Full Code 12/26/2018 11:09 AM 08/24/2022 5:52 AM Advance Directive Response Recorded Date/ Time Living Will Yes January 01 9:40am Power of Manager Cardiac Cath Yes January 01, 2023 9:40am Name of Medical Power of Manager Cardiac Cath - aury January 01, 2023 9:40am Date Activated Date Inactivated Comments 12/26/2018 11:09 AM 08/24/2022 5:52 AM Date Activated Date Inactivated Comments 12/26/2018 11:09 AM 08/24/2022 5:52 AM Date Activated Date Inactivated Comments 07/01/2023 11:53 AM Question Answer Comments Full Code Order Discussed With: Patient Date Activated Date Inactivated Comments 12/26/2018 11:09 AM 08/24/2022 5:52 AM Date Activated Date Inactivated Comments 07/01/2023 11:53 AM Question Answer Comments Full Code Order Discussed With: Patient Date Activated Date Inactivated Comments 12/26/2018 11:09 AM 08/24/2022 5:52 AM Date Activated Date Inactivated Comments 07/01/2023 11:53 AM 07/05/2023 10:44 PM Date Activated Date Inactivated Comments 07/01/2023 11:53 AM 07/05/2023 10:44 PM Advance Directive Response Recorded Date/ Time Living Will Yes April 25, 2024 11:32pm Power of Manager Cardiac Cath Yes April 25 11:32pm Name of Medical Power of Manager Cardiac Cath April 25, 2024 11:32pm Advance Directive Response Recorded Date/ Time Living Will Yes April 25, 2024 11:32pm Do you have a Healthcare Power of Manager Cardiac Cath? Yes April 25, 2024 11:32pm Name of Medical Power of Manager Cardiac Cath April 25, 2024 11:32pm Advance Directive Response Recorded Date/ Time Living Will Yes April 25, 2024 11:32pm Do you have a Healthcare Power of Manager Cardiac Cath? Yes April 25, 2024 11:32pm Name of Medical Power of Manager Cardiac Cath April 25, 2024 11:32pm Advance Directives on File Yes June 132024 7:37am Living Will Yes July 03, 2024 7 :37am Do you have a Healthcare Power of Manager Cardiac Cath? Yes July 03, 2024 11:39am Name of Medical Power of Manager Cardiac Cath Aury Craig July 03, 2024 11:39am Advance Directives on File Yes August 06, 2024 8:50am Living Will Yes August 06, 2024 8:50am Do you have a Healthcare Power of Manager Cardiac Cath? Yes August 06, 2024 8:50am Advance Directives Yes August 06 8:50am Advance Directive Response Recorded Date/ Time Advance Directives on File Yes June 132024 7:37am Living Will Yes July 03, 2024 7 :37am Do you have a Healthcare Power of Manager Cardiac Cath? Yes July 03, 2024 11:39am Name of Medical Power of Manager Cardiac Cath Aury Craig July 03, 2024 11:39am Advance Directives on File Yes August 06, 2024 8:50am Living Will Yes August 06, 2024 8:50am Do you have a Healthcare Power of Manager Cardiac Cath? Yes August 06, 2024 8:50am Advance Directives Yes August 06 8:50am Advance Directive Response Recorded Date/ Time Advance Directives on File Yes August 06, 2024 8:50am Living Will Yes August 06, 2024 8:50am Do you have a Healthcare Power of Manager Cardiac Cath? Yes August 06, 2024 8:50am Advance Directives Yes August 06 8:50am Advance Directive Response Recorded Date/ Time Do you have a Healthcare Power of Manager Cardiac Cath? Yes November 30, 2024 9:33am Do you have a Healthcare Power of Manager Cardiac Cath? Yes December 15, 2024 4:03pm Name of Medical Power of Manager Cardiac Cath Aury Craig December 15, 2024 4:03pm Advance Directives Yes August 06 7:50am Reason for Referral Specialty Diagnoses / Procedures Referred By Contac t Referred To Contact Cardiothoracic Surgery Diagnoses Hiatal hernia Procedures CONSULT TO CARDIOTHORACIC SURGERY Omkar Keating MD [address] [place] [address] Referral ID Status Reason Start Date Expiration Date Visits Requested Visits Authorized [id number] Ref Not Required PCP Requested Referral 05/31/2021 05/31/2022 1 1 Specialty Diagnoses / Procedures Referred By Contac t Referred To Contact CT IMAGING Diagnoses Diaphragmatic hernia with obstruction, without gangrene Procedures CT CHEST WO IVCON DIAGNOSTIC COMPUTED TOMOGRAPHY THORAX W/[place] CNTRST Julián [place] [address] [place], [place] [id number] Ct Imaging Referral ID Status Reason Start Date Expiration Date V isits Requested Visits Authorized [id number] Closed Auto-Generate d Referral 05/31/2021 06/30/2022 1 1 Specialty Diagnoses / Procedures Referred By Contac t Referred To Contact [facility] Diagnoses DDD (degenerative disc disease), lumbar Procedures CONSULT TO PHYSICAL THERAPY PHYSICAL THERAPY EVALUATION HIGH COMPLEX 45 MINS Eloisa Espinal MD [address] [place] [address] [facility] [address] [address] Referral ID Status Reason Start Date Expiration Date Visits Requested Visits Authorized [id number] Authorized PCP Requested Referral Auto-Generate d Referral 07/06/2021 07/06/2022 99 99 Specialty Diagnoses / Procedures Referred By Contac t Referred To Contact [facility] Diagnoses Left arm pain Cervical radiculopathy Procedures CONSULT TO PHYSICAL THERAPY PHYSICAL THERAPY EVALUATION HIGH COMPLEX 45 MINS Kel Sun MD [address] [place] [address] [facility] [address] [address] Referral ID Status Reason Start Date Expiration Date Visits Requested Visits Authorized [id number] Authorized PCP Requested Referral Auto-Generate d Referral 12/05/2022 99 99 Specialty Diagnoses / Procedures Referred By Contac t Referred To Contact XR IMAGING Diagnoses Left arm pain Cervical radiculopathy Procedures XR CERV OTHER 4V AP/LAT/OBL RADEX SPINE CERVICAL 4 OR 5 VIEWS Kel Sun MD [address] [place] [address] Xr Imaging Referral ID Status Reason Start Date Expiration Date V isits Requested Visits Authorized [id number] Closed Auto-Generate d Referral 12/05/2021 01/04/2023 1 1 Specialty Diagnoses / Procedures Referred By Contac t Referred To Contact General Surgery Diagnoses Escobedo's esophagus with low grade dysplasia Procedures CONSULT TO GENERAL SURGERY OFFICE/OUTPATIENT [facility] 60-74 MINUTES Eloisa Espinal MD [address] [place] [id number] Referral ID Status Reason Start Date Expiration Date Visits Requested Visits Authorized [id number] Authorized PCP Requested Referral 03/06/2022 03/06/2023 1 1 Specialty Diagnoses / Procedures Referred By Contac t Referred To Contact Cardiothoracic Surgery Diagnoses Hiatal hernia Procedures CONSULT TO CARDIOTHORACIC SURGERY Omkar Keating MD [address] [place] [address] Referral ID Status Reason Start Date Expiration Date Visits Requested Visits Authorized [id number] Ref Not Required PCP Requested Referral 04/18/2022 04/18/2023 1 1 Specialty Diagnoses / Procedures Referred By Contac t Referred To Contact CT IMAGING Diagnoses RLQ abdominal pain Right upper quadrant abdominal mass Change in bowel function Procedures CT ABD/PEL WO IVCON CT ABD & PELVIS W/O CONTRAST Eloisa Espinal MD [address] [place] [address] Ct Imaging Referral ID Status Reason Start Date Expiration Date Visits Requested Visits Authorized [id number] Authorized Auto-Generat ed Referral 06/09/2022 07/09/2023 1 1 Specialty Diagnoses / Procedures Referred By Contac t Referred To Contact CT IMAGING Diagnoses RLQ abdominal pain Right upper quadrant abdominal mass Change in bowel function Procedures CT ABD/PEL WO IVCON CT ABD & PELVIS W/O CONTRAST Eloisa Espinal MD [address] [place] [address] [place] [address] Referral ID Status Reason Start Date Expiration Date V isits Requested Visits Authorized [id number] Closed Auto-Generate d Referral 06/09/2022 07/09/2023 1 1 Specialty Diagnoses / Procedures Referred By Contac t Referred To Contact Urology Diagnoses Frequent urination Procedures CONSULT TO UROLOGY OFFICE/OUTPATIENT NEW HIGH MDM 60 MINUTES Elsa Mayo, SANDY.TRANSFER AND PUMPHOUSE OPERATOR CHIEF [address] [place] [address] Referral ID Status Reason Start Date Expiration Date Visits Requested Visits Authorized [id number] Authorized PCP Requested Referral 04/26/2023 04/25/2024 1 1 Specialty Diagnoses / Procedures Referred By Contac t Referred To Contact Pain Management Diagnoses Sciatica, right side Procedures CONSULT TO PAIN MGT OFFICE/OUTPATIENT NEW HIGH MDM 60 MINUTES Eloisa Espinal MD [address] [place] [address] Referral ID Status Reason Start Date Expiration Date Visits Requested Visits Authorized [id number] Authorized PCP Requested Referral 4 01/11/2025 1 1 Specialty Diagnoses / Procedures Referred By Contac t Referred To Contact [facility] Diagnoses Sciatica, right side Procedures CONSULT TO PHYSICAL THERAPY PHYSICAL THERAPY EVALUATION HIGH COMPLEX 45 MINS Eloisa Espinal MD [address] [place] [address] [facility] [address] [place] [address] Referral ID Status Reason Start Date Expiration Date Visits Requested Visits Authorized [id number] Authorized PCP Requested Referral Auto-Generate d Referral 01/11/2025 99 99 Specialty Diagnoses / Procedures Referred By Contac t Referred To Contact General Surgery Diagnoses Umbilical hernia without obstruction or gangrene Procedures CONSULT TO GENERAL SURGERY OFFICE/OUTPATIENT NEW HIGH MDM 60 MINUTES Elsa Mayo, FIELD MECHANIC/SITE LEAD.TRANSFER AND PUMPHOUSE OPERATOR CHIEF [address] [place] [address] Referral ID Status Reason Start Date Expiration Date Visits Requested Visits Authorized [id number] Authorized PCP Requested Referral 03/19/2024 03/19/2025 1 1 Specialty Diagnoses / Procedures Referred By Contnaina t Referred To Contact Cardiology Diagnoses 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) Paroxysmal atrial fibrillation (HCC) Procedures CONSULT TO CARDIOLOGY OFFICE/OUTPATIENT [facility] 60 MINUTES Elsa Mayo APRN.TRANSFER AND PUMPHOUSE OPERATOR CHIEF [address] [place] [address] Referral ID Status Reason Start Date Expiration Date Visits Requested Visits Authorized [id number] Authorized PCP Requested Referral 03/19/2024 03/19/2025 1 1 Chief Complaint and Reason for Visit Chief Complaint CHEST PAIN, UNSTABE ANGINA, CAD, HX OF HTN Reason for Visit Chest pain History of coronary artery disease Unstable angina Chief Complaint UNSTABE ANGINA CHEST PAIN, UNSTABE ANGINA, CAD, HX OF HTN UNSTABE ANGINA UNSTABE ANGINA UNSTABE ANGINA Reason for Visit Chest pain History of coronary artery disease Unstable angina Chief Complaint WOUND Chief Complaint Admit Date SOB/EST ([place]) April 23, 2024 9: 48am FALL April 25, 2024 9:3 8pm Reason for Visit Admit Date CAD (coronary artery disease) April 9:48am COPD (chronic obstructive pulmonary dise ase) April 23, 2024 9:48am Dyslipidemia April 23, 2024 9:4 8am Hypertension April 23, 2024 9:4 8am History of atrial fibrillati on less than 8 weeks after coronary artery bypa April 23, 2024 9:48am Preoperative cardiovascular examination April 23, 2024 9:48am Chief Complaint Admit Date SOB/EST ([place]) April 23, 2024 9: 48am FALL April 25, 2024 9:3 8pm CAD ASHD May 22, 2024 6:4 9am CAD ASHD May 22, 2024 8:5 5am Chief Complaint Admit Date SOB/EST ([place]) April 23, 2024 9: 48am FALL April 25, 2024 9:3 8pm CAD ASHD May 22, 2024 6:4 9am CAD ASHD May 22, 2024 8:5 5am ABN STRESS July 03, 2024 11:29 am Amb Documentation July 28, 2024 2:11 pm CAD,JOHNSON August 06, 2024 8:23 am Chief Complaint Admit Date SOB/EST ([place]) April 23, 2024 9: 48am FALL April 25, 2024 9:3 8pm CAD ASHD May 22, 2024 6:4 9am CAD ASHD May 22, 2024 8:5 5am ABN STRESS July 03, 2024 11:29 am Amb Documentation July 28, 2024 2:11 pm CAD,JOHNSON August 06, 2024 8:23 am S/P [facility] 08/11August 19, 2024 10:11 am Reason for Visit Admit Date CAD (coronary artery disease) April 9:48am COPD (chronic obstructive pulmonary dise ase) April 23, 2024 9:48am Dyslipidemia April 23, 2024 9:4 8am Hypertension April 23, 2024 9:4 8am History of atrial fibrillati on less than 8 weeks after coronary artery bypa April 23, 2024 9:48am Preoperative cardiovascular examination April 23, 2024 9:48am Shortness of breath August 19, 2024 10:11 am CAD (coronary artery disease) August 19, 2024 10:11am Dyslipidemia August 19, 2024 10:11 am Hypertension August 19, 2024 10:11 am History of atrial fibrillati on less than 8 weeks after coronary artery bypa August 19, 2024 10:11am Preoperative cardiovascular examination August 19, 2024 10:11am Chief Complaint Admit Date CAD ASHD May 22, 2024 6:4 9am CAD ASHD May 22, 2024 8:5 5am ABN STRESS July 03, 2024 11:29 am CAD,JOHNSON July 28, 2024 2:11 pm CAD,JOHNSON August 06, 2024 8:23 am S/P [facility] 08/11August 19, 2024 10:11 am R06.02 - Shortness of breath September 04, 2024 9:28am Reason for Visit Admit Date Shortness of breath August 19, 2024 10:11 am CAD (coronary artery disease) August 19, 2024 10:11am Dyslipidemia August 19, 2024 10:11 am Hypertension August 19, 2024 10:11 am History of atrial fibrillati on less than 8 weeks after coronary artery bypa August 19, 2024 10:11am Chief Complaint Admit Date CAD,JOHNSON July 28, 2024 2:11 pm CAD,JOHNSON August 06, 2024 8:23 am S/P [facility] 08/11August 19, 2024 10:11 am R06.02 - Shortness of breath September 04, 2024 9:28am 3 M FU November 11, 2024 2:00pm Reason for Visit Admit Date Shortness of breath August 19, 2024 10:11 am CAD (coronary artery disease) August 19, 2024 10:11am Dyslipidemia August 19, 2024 10:11 am Hypertension August 19, 2024 10:11 am History of atrial fibrillati on less than 8 weeks after coronary artery bypa August 19, 2024 10:11am CAD (coronary artery disease) November 11, 2024 2:00pm COPD (chronic obstructive pulmonary dise ase) November 11, 2024 2:00pm Dyslipidemia November 11, 2024 2:00pm Hypertension November 11, 2024 2:00pm History of atrial fibrillati on less than 8 weeks after coronary artery bypa November 11, 2024 2:00pm Preoperative cardiovascular examination November 11, 2024 2:00pm Chief Complaint Admit Date R06.02 - Shortness of breath September 04, 2024 9:28am 3 M November 11, 2024 2:00pm abd November 30, 2024 1 0:26am HERNIA REPAIR S/P HEMATOMA December 13, 2024 5:45pm Reason for Visit Admit Date CAD (coronary artery disease) November 11, 2024 2:00pm COPD (chronic obstructive pulmonary dise [facility]) November 11, 2024 2:00pm Dyslipidemia November 11, 2024 2:00pm Hypertension November 11, 2024 2:00pm History of atrial fibrillati on less than 8 weeks after coronary artery bypa November 11, 2024 2:00pm Preoperative cardiovascular examination November 11, 2024 2:00pm Abdominal abscess December 13, 2024 5 :45pm Abdominal hematoma December 13, 2024 5 :45pm Acute blood loss anemia December 13 5:45pm Acute respiratory failure with hypoxia N ov2024 5:45pm Allergic rhinitis December 13, 2024 5 :45pm Atrial fibrillation December 13, 2024 5 :45pm BPH (benign prostatic hyperplasia) Novem 2024 5:45pm Debility December 13, 2024 5 :45pm Hypothyroidism December 13, 2024 5 :45pm Peptic ulcer December 13, 2024 5 :45pm Sepsis December 13, 2024 5 :45pm CAD (coronary artery disease) December 132024 5:45pm COPD exacerbation December 13, 2024 5 :45pm Hyperlipidemia December 13, 2024 5 :45pm Health Concerns Infection Onset Date Last Indicated Resolved Time COVID-19 Rule-Out 04/17/2022 04/17/2022 Medications Administered Section Inactive Administered Medications - up to 3 most recent administrations Medication Order MAR Action Action Date Dose Rate Site NaCl 0.9% iv infusion 30 mL/hr, INTRAVENOUS, CONTINUOUS, Starting on Sun04/18/22 at 1030, Until Sun04/19/22 at 0418, Preprocedure New Bag/Syringe/Bottle 04/18/2022 10:30 AM EST 30 mL/hr 30 mL/hr Additional Source Comments (unrecognized sect ion and content) No Status Records FoundNo Status Records FoundNo Status Records FoundNo Status Records FoundNo Status Records FoundNo Status Records Found INFORMATION SOURCE (unrecogn ized section and content) DATE CREATED AUTHOR 10/08/2019 [facility] DATE CREATED AUTHOR AUTHOR'S ORGANIZ ATION 06/22/2022 [facility] DATE CREATED AUTHOR AUTHOR'S ORGANIZ ATION 10/09/2023 [facility] DATE CREATED AUTHOR AUTHOR'S ORGANIZ ATION 12/13/2024 [facility] DATE CREATED AUTHOR AUTHOR'S ORGANIZ ATION 12/21/2024 [facility] DATE CREATED AUTHOR AUTHOR'S ORGANIZ ATION 12/22/2024 [facility] Source Comments (unrecognize d section and content) In the event this informatio n is protected by the Federal Confidentiality of Alcohol and Drug Abuse Patient Records regulations: The Federal rules restrict any use of the information to criminally investigate or prosecute any alcohol or drug abuse patient.[facility] the event this information is protected by the Federal Confidentiality of Alcohol and Drug Abuse Patient Records regulations: The Federal rules restrict any use of the information to criminally investigate or prosecute any alcohol or drug abuse patient.[facility] Hospital[facility] the event this information is protected by the Federal Confidentiality of Alcohol and Drug Abuse Patient Records regulations: The Federal rules restrict any use of the information to criminally investigate or prosecute any alcohol or drug abuse patient.[facility] the event this information is protected by the Federal Confidentiality of Alcohol and Drug Abuse Patient Records regulations: The Federal rules restrict any use of the information to criminally investigate or prosecute any alcohol or drug abuse patient.[facility] HospitalIn the event this information is protected by the Federal Confidentiality of Alcohol and Drug Abuse Patient Records regulations: The Federal rules restrict any use of the information to criminally investigate or prosecute any alcohol or drug abuse patient.[facility] Hospital[facility] the event this information is protected by the Federal Confidentiality of Alcohol and Drug Abuse Patient Records regulations: The Federal rules restrict any use of the information to criminally investigate or prosecute any alcohol or drug abuse patient.[facility] Hospital[facility] the event this information is protected by the Federal Confidentiality of Alcohol and Drug Abuse Patient Records regulations: The Federal rules restrict any use of the information to criminally investigate or prosecute any alcohol or drug abuse patient.[facility] HospitalIn the event this information is protected by the Federal Confidentiality of Alcohol and Drug Abuse Patient Records regulations: The Federal rules restrict any use of the information to criminally investigate or prosecute any alcohol or drug abuse patient.[facility] HospitalIn the event this information is protected by the Federal Confidentiality of Alcohol and Drug Abuse Patient Records regulations: The Federal rules restrict any use of the information to criminally investigate or prosecute any alcohol or drug abuse patient.[facility] Hospital[facility] the event this information is protected by the Federal Confidentiality of Alcohol and Drug Abuse Patient Records regulations: The Federal rules restrict any use of the information to criminally investigate or prosecute any alcohol or drug abuse patient.[facility] Hospital[facility] the event this information is protected by the Federal Confidentiality of Alcohol and Drug Abuse Patient Records regulations: The Federal rules restrict any use of the information to criminally investigate or prosecute any alcohol or drug abuse patient.[facility] HospitalIn the event this information is protected by the Federal Confidentiality of Alcohol and Drug Abuse Patient Records regulations: The Federal rules restrict any use of the information to criminally investigate or prosecute any alcohol or drug abuse patient.[facility] HospitalIn the event this information is protected by the Federal Confidentiality of Alcohol and Drug Abuse Patient Records regulations: The Federal rules restrict any use of the information to criminally investigate or prosecute any alcohol or drug abuse patient.[facility] HospitalIn the event this information is protected by the Federal Confidentiality of Alcohol and Drug Abuse Patient Records regulations: The Federal rules restrict any use of the information to criminally investigate or prosecute any alcohol or drug abuse patient.[facility] HospitalIn the event this information is protected by the Federal Confidentiality of Alcohol and Drug Abuse Patient Records regulations: The Federal rules restrict any use of the information to criminally investigate or prosecute any alcohol or drug abuse patient.[facility] HospitalIn the event this information is protected by the Federal Confidentiality of Alcohol and Drug Abuse Patient Records regulations: The Federal rules restrict any use of the information to criminally investigate or prosecute any alcohol or drug abuse patient.[facility] HospitalIn the event this information is protected by the Federal Confidentiality of Alcohol and Drug Abuse Patient Records regulations: The Federal rules restrict any use of the information to criminally investigate or prosecute any alcohol or drug abuse patient.[facility] HospitalIn the event this information is protected by the Federal Confidentiality of Alcohol and Drug Abuse Patient Records regulations: The Federal rules restrict any use of the information to criminally investigate or prosecute any alcohol or drug abuse patient.[facility] HospitalIn the event this information is protected by the Federal Confidentiality of Alcohol and Drug Abuse Patient Records regulations: The Federal rules restrict any use of the information to criminally investigate or prosecute any alcohol or drug abuse patient.[facility] HospitalIn the event this information is protected by the Federal Confidentiality of Alcohol and Drug Abuse Patient Records regulations: The Federal rules restrict any use of the information to criminally investigate or prosecute any alcohol or drug abuse patient.[facility] HospitalIn the event this information is protected by the Federal Confidentiality of Alcohol and Drug Abuse Patient Records regulations: The Federal rules restrict any use of the information to criminally investigate or prosecute any alcohol or drug abuse patient.[facility] HospitalIn the event this information is protected by the Federal Confidentiality of Alcohol and Drug Abuse Patient Records regulations: The Federal rules restrict any use of the information to criminally investigate or prosecute any alcohol or drug abuse patient.[facility] HospitalIn the event this information is protected by the Federal Confidentiality of Alcohol and Drug Abuse Patient Records regulations: The Federal rules restrict any use of the information to criminally investigate or prosecute any alcohol or drug abuse patient.[facility] HospitalIn the event this information is protected by the Federal Confidentiality of Alcohol and Drug Abuse Patient Records regulations: The Federal rules restrict any use of the information to criminally investigate or prosecute any alcohol or drug abuse patient.[facility] HospitalIn the event this information is protected by the Federal Confidentiality of Alcohol and Drug Abuse Patient Records regulations: The Federal rules restrict any use of the information to criminally investigate or prosecute any alcohol or drug abuse patient.[facility] HospitalIn the event this information is protected by the Federal Confidentiality of Alcohol and Drug Abuse Patient Records regulations: The Federal rules restrict any use of the information to criminally investigate or prosecute any alcohol or drug abuse patient.[facility] HospitalIn the event this information is protected by the Federal Confidentiality of Alcohol and Drug Abuse Patient Records regulations: The Federal rules restrict any use of the information to criminally investigate or prosecute any alcohol or drug abuse patient.[facility] HospitalIn the event this information is protected by the Federal Confidentiality of Alcohol and Drug Abuse Patient Records regulations: The Federal rules restrict any use of the information to criminally investigate or prosecute any alcohol or drug abuse patient.[facility] HospitalIn the event this information is protected by the Federal Confidentiality of Alcohol and Drug Abuse Patient Records regulations: The Federal rules restrict any use of the information to criminally investigate or prosecute any alcohol or drug abuse patient.[facility] HospitalIn the event this information is protected by the Federal Confidentiality of Alcohol and Drug Abuse Patient Records regulations: The Federal rules restrict any use of the information to criminally investigate or prosecute any alcohol or drug abuse patient.[facility] HospitalIn the event this information is protected by the Federal Confidentiality of Alcohol and Drug Abuse Patient Records regulations: The Federal rules restrict any use of the information to criminally investigate or prosecute any alcohol or drug abuse patient.[facility] HospitalIn the event this information is protected by the Federal Confidentiality of Alcohol and Drug Abuse Patient Records regulations: The Federal rules restrict any use of the information to criminally investigate or prosecute any alcohol or drug abuse patient.[facility] HospitalIn the event this information is protected by the Federal Confidentiality of Alcohol and Drug Abuse Patient Records regulations: The Federal rules restrict any use of the information to criminally investigate or prosecute any alcohol or drug abuse patient.[facility] HospitalIn the event this information is protected by the Federal Confidentiality of Alcohol and Drug Abuse Patient Records regulations: The Federal rules restrict any use of the information to criminally investigate or prosecute any alcohol or drug abuse patient.[facility] HospitalIn the event this information is protected by the Federal Confidentiality of Alcohol and Drug Abuse Patient Records regulations: The Federal rules restrict any use of the information to criminally investigate or prosecute any alcohol or drug abuse patient.[facility] HospitalIn the event this information is protected by the Federal Confidentiality of Alcohol and Drug Abuse Patient Records regulations: The Federal rules restrict any use of the information to criminally investigate or prosecute any alcohol or drug abuse patient.[facility] HospitalIn the event this information is protected by the Federal Confidentiality of Alcohol and Drug Abuse Patient Records regulations: The Federal rules restrict any use of the information to criminally investigate or prosecute any alcohol or drug abuse patient.[facility] HospitalIn the event this information is protected by the Federal Confidentiality of Alcohol and Drug Abuse Patient Records regulations: The Federal rules restrict any use of the information to criminally investigate or prosecute any alcohol or drug abuse patient.[facility] HospitalIn the event this information is protected by the Federal Confidentiality of Alcohol and Drug Abuse Patient Records regulations: The Federal rules restrict any use of the information to criminally investigate or prosecute any alcohol or drug abuse patient.[facility] HospitalIn the event this information is protected by the Federal Confidentiality of Alcohol and Drug Abuse Patient Records regulations: The Federal rules restrict any use of the information to criminally investigate or prosecute any alcohol or drug abuse patient.[facility] HospitalIn the event this information is protected by the Federal Confidentiality of Alcohol and Drug Abuse Patient Records regulations: The Federal rules restrict any use of the information to criminally investigate or prosecute any alcohol or drug abuse patient.[facility] HospitalIn the event this information is protected by the Federal Confidentiality of Alcohol and Drug Abuse Patient Records regulations: The Federal rules restrict any use of the information to criminally investigate or prosecute any alcohol or drug abuse patient.[facility] HospitalIn the event this information is protected by the Federal Confidentiality of Alcohol and Drug Abuse Patient Records regulations: The Federal rules restrict any use of the information to criminally investigate or prosecute any alcohol or drug abuse patient.[facility] HospitalIn the event this information is protected by the Federal Confidentiality of Alcohol and Drug Abuse Patient Records regulations: The Federal rules restrict any use of the information to criminally investigate or prosecute any alcohol or drug abuse patient.[facility] HospitalIn the event this information is protected by the Federal Confidentiality of Alcohol and Drug Abuse Patient Records regulations: The Federal rules restrict any use of the information to criminally investigate or prosecute any alcohol or drug abuse patient.[facility] HospitalIn the event this information is protected by the Federal Confidentiality of Alcohol and Drug Abuse Patient Records regulations: The Federal rules restrict any use of the information to criminally investigate or prosecute any alcohol or drug abuse patient.[facility] HospitalIn the event this information is protected by the Federal Confidentiality of Alcohol and Drug Abuse Patient Records regulations: The Federal rules restrict any use of the information to criminally investigate or prosecute any alcohol or drug abuse patient.[facility] HospitalIn the event this information is protected by the Federal Confidentiality of Alcohol and Drug Abuse Patient Records regulations: The Federal rules restrict any use of the information to criminally investigate or prosecute any alcohol or drug abuse patient.[facility] HospitalIn the event this information is protected by the Federal Confidentiality of Alcohol and Drug Abuse Patient Records regulations: The Federal rules restrict any use of the information to criminally investigate or prosecute any alcohol or drug abuse patient.[facility] HospitalIn the event this information is protected by the Federal Confidentiality of Alcohol and Drug Abuse Patient Records regulations: The Federal rules restrict any use of the information to criminally investigate or prosecute any alcohol or drug abuse patient.[facility] HospitalIn the event this information is protected by the Federal Confidentiality of Alcohol and Drug Abuse Patient Records regulations: The Federal rules restrict any use of the information to criminally investigate or prosecute any alcohol or drug abuse patient.[facility] HospitalIn the event this information is protected by the Federal Confidentiality of Alcohol and Drug Abuse Patient Records regulations: The Federal rules restrict any use of the information to criminally investigate or prosecute any alcohol or drug abuse patient.[facility] HospitalIn the event this information is protected by the Federal Confidentiality of Alcohol and Drug Abuse Patient Records regulations: The Federal rules restrict any use of the information to criminally investigate or prosecute any alcohol or drug abuse patient.[facility] HospitalIn the event this information is protected by the Federal Confidentiality of Alcohol and Drug Abuse Patient Records regulations: The Federal rules restrict any use of the information to criminally investigate or prosecute any alcohol or drug abuse patient.[facility] HospitalIn the event this information is protected by the Federal Confidentiality of Alcohol and Drug Abuse Patient Records regulations: The Federal rules restrict any use of the information to criminally investigate or prosecute any alcohol or drug abuse patient.[facility] HospitalIn the event this information is protected by the Federal Confidentiality of Alcohol and Drug Abuse Patient Records regulations: The Federal rules restrict any use of the information to criminally investigate or prosecute any alcohol or drug abuse patient.[facility] HospitalIn the event this information is protected by the Federal Confidentiality of Alcohol and Drug Abuse Patient Records regulations: The Federal rules restrict any use of the information to criminally investigate or prosecute any alcohol or drug abuse patient.[facility] HospitalIn the event this information is protected by the Federal Confidentiality of Alcohol and Drug Abuse Patient Records regulations: The Federal rules restrict any use of the information to criminally investigate or prosecute any alcohol or drug abuse patient.[facility] HospitalIn the event this information is protected by the Federal Confidentiality of Alcohol and Drug Abuse Patient Records regulations: The Federal rules restrict any use of the information to criminally investigate or prosecute any alcohol or drug abuse patient.[facility] HospitalIn the event this information is protected by the Federal Confidentiality of Alcohol and Drug Abuse Patient Records regulations: The Federal rules restrict any use of the information to criminally investigate or prosecute any alcohol or drug abuse patient.[facility] HospitalIn the event this information is protected by the Federal Confidentiality of Alcohol and Drug Abuse Patient Records regulations: The Federal rules restrict any use of the information to criminally investigate or prosecute any alcohol or drug abuse patient.[facility] HospitalIn the event this information is protected by the Federal Confidentiality of Alcohol and Drug Abuse Patient Records regulations: The Federal rules restrict any use of the information to criminally investigate or prosecute any alcohol or drug abuse patient.[facility] HospitalIn the event this information is protected by the Federal Confidentiality of Alcohol and Drug Abuse Patient Records regulations: The Federal rules restrict any use of the information to criminally investigate or prosecute any alcohol or drug abuse patient.[facility] HospitalIn the event this information is protected by the Federal Confidentiality of Alcohol and Drug Abuse Patient Records regulations: The Federal rules restrict any use of the information to criminally investigate or prosecute any alcohol or drug abuse patient.[facility] HospitalIn the event this information is protected by the Federal Confidentiality of Alcohol and Drug Abuse Patient Records regulations: The Federal rules restrict any use of the information to criminally investigate or prosecute any alcohol or drug abuse patient.[facility] HospitalIn the event this information is protected by the Federal Confidentiality of Alcohol and Drug Abuse Patient Records regulations: The Federal rules restrict any use of the information to criminally investigate or prosecute any alcohol or drug abuse patient.[facility] HospitalIn the event this information is protected by the Federal Confidentiality of Alcohol and Drug Abuse Patient Records regulations: The Federal rules restrict any use of the information to criminally investigate or prosecute any alcohol or drug abuse patient.[facility] HospitalIn the event this information is protected by the Federal Confidentiality of Alcohol and Drug Abuse Patient Records regulations: The Federal rules restrict any use of the information to criminally investigate or prosecute any alcohol or drug abuse patient.[facility] HospitalIn the event this information is protected by the Federal Confidentiality of Alcohol and Drug Abuse Patient Records regulations: The Federal rules restrict any use of the information to criminally investigate or prosecute any alcohol or drug abuse patient.[facility] HospitalIn the event this information is protected by the Federal Confidentiality of Alcohol and Drug Abuse Patient Records regulations: The Federal rules restrict any use of the information to criminally investigate or prosecute any alcohol or drug abuse patient.[facility] HospitalIn the event this information is protected by the Federal Confidentiality of Alcohol and Drug Abuse Patient Records regulations: The Federal rules restrict any use of the information to criminally investigate or prosecute any alcohol or drug abuse patient.[facility] HospitalIn the event this information is protected by the Federal Confidentiality of Alcohol and Drug Abuse Patient Records regulations: The Federal rules restrict any use of the information to criminally investigate or prosecute any alcohol or drug abuse patient.[facility] HospitalIn the event this information is protected by the Federal Confidentiality of Alcohol and Drug Abuse Patient Records regulations: The Federal rules restrict any use of the information to criminally investigate or prosecute any alcohol or drug abuse patient.[facility] HospitalIn the event this information is protected by the Federal Confidentiality of Alcohol and Drug Abuse Patient Records regulations: The Federal rules restrict any use of the information to criminally investigate or prosecute any alcohol or drug abuse patient.[facility] HospitalIn the event this information is protected by the Federal Confidentiality of Alcohol and Drug Abuse Patient Records regulations: The Federal rules restrict any use of the information to criminally investigate or prosecute any alcohol or drug abuse patient.[facility] HospitalIn the event this information is protected by the Federal Confidentiality of Alcohol and Drug Abuse Patient Records regulations: The Federal rules restrict any use of the information to criminally investigate or prosecute any alcohol or drug abuse patient.[facility] HospitalIn the event this information is protected by the Federal Confidentiality of Alcohol and Drug Abuse Patient Records regulations: The Federal rules restrict any use of the information to criminally investigate or prosecute any alcohol or drug abuse patient.[facility] HospitalIn the event this information is protected by the Federal Confidentiality of Alcohol and Drug Abuse Patient Records regulations: The Federal rules restrict any use of the information to criminally investigate or prosecute any alcohol or drug abuse patient.[facility] HospitalIn the event this information is protected by the Federal Confidentiality of Alcohol and Drug Abuse Patient Records regulations: The Federal rules restrict any use of the information to criminally investigate or prosecute any alcohol or drug abuse patient.[facility] HospitalIn the event this information is protected by the Federal Confidentiality of Alcohol and Drug Abuse Patient Records regulations: The Federal rules restrict any use of the information to criminally investigate or prosecute any alcohol or drug abuse patient.[facility] HospitalIn the event this information is protected by the Federal Confidentiality of Alcohol and Drug Abuse Patient Records regulations: The Federal rules restrict any use of the information to criminally investigate or prosecute any alcohol or drug abuse patient.[facility] HospitalIn the event this information is protected by the Federal Confidentiality of Alcohol and Drug Abuse Patient Records regulations: The Federal rules restrict any use of the information to criminally investigate or prosecute any alcohol or drug abuse patient.[facility] HospitalIn the event this information is protected by the Federal Confidentiality of Alcohol and Drug Abuse Patient Records regulations: The Federal rules restrict any use of the information to criminally investigate or prosecute any alcohol or drug abuse patient.[facility] HospitalIn the event this information is protected by the Federal Confidentiality of Alcohol and Drug Abuse Patient Records regulations: The Federal rules restrict any use of the information to criminally investigate or prosecute any alcohol or drug abuse patient.[facility] HospitalIn the event this information is protected by the Federal Confidentiality of Alcohol and Drug Abuse Patient Records regulations: The Federal rules restrict any use of the information to criminally investigate or prosecute any alcohol or drug abuse patient.[facility] HospitalIn the event this information is protected by the Federal Confidentiality of Alcohol and Drug Abuse Patient Records regulations: The Federal rules restrict any use of the information to criminally investigate or prosecute any alcohol or drug abuse patient.[facility] HospitalIn the event this information is protected by the Federal Confidentiality of Alcohol and Drug Abuse Patient Records regulations: The Federal rules restrict any use of the information to criminally investigate or prosecute any alcohol or drug abuse patient.[facility] HospitalIn the event this information is protected by the Federal Confidentiality of Alcohol and Drug Abuse Patient Records regulations: The Federal rules restrict any use of the information to criminally investigate or prosecute any alcohol or drug abuse patient.[facility] HospitalIn the event this information is protected by the Federal Confidentiality of Alcohol and Drug Abuse Patient Records regulations: The Federal rules restrict any use of the information to criminally investigate or prosecute any alcohol or drug abuse patient.[facility] HospitalIn the event this information is protected by the Federal Confidentiality of Alcohol and Drug Abuse Patient Records regulations: The Federal rules restrict any use of the information to criminally investigate or prosecute any alcohol or drug abuse patient.[facility] HospitalIn the event this information is protected by the Federal Confidentiality of Alcohol and Drug Abuse Patient Records regulations: The Federal rules restrict any use of the information to criminally investigate or prosecute any alcohol or drug abuse patient.[facility] HospitalIn the event this information is protected by the Federal Confidentiality of Alcohol and Drug Abuse Patient Records regulations: The Federal rules restrict any use of the information to criminally investigate or prosecute any alcohol or drug abuse patient.[facility] HospitalIn the event this information is protected by the Federal Confidentiality of Alcohol and Drug Abuse Patient Records regulations: The Federal rules restrict any use of the information to criminally investigate or prosecute any alcohol or drug abuse patient.[facility] HospitalIn the event this information is protected by the Federal Confidentiality of Alcohol and Drug Abuse Patient Records regulations: The Federal rules restrict any use of the information to criminally investigate or prosecute any alcohol or drug abuse patient.[facility] HospitalIn the event this information is protected by the Federal Confidentiality of Alcohol and Drug Abuse Patient Records regulations: The Federal rules restrict any use of the information to criminally investigate or prosecute any alcohol or drug abuse patient.[facility] HospitalIn the event this information is protected by the Federal Confidentiality of Alcohol and Drug Abuse Patient Records regulations: The Federal rules restrict any use of the information to criminally investigate or prosecute any alcohol or drug abuse patient.[facility] HospitalIn the event this information is protected by the Federal Confidentiality of Alcohol and Drug Abuse Patient Records regulations: The Federal rules restrict any use of the information to criminally investigate or prosecute any alcohol or drug abuse patient.[facility] HospitalIn the event this information is protected by the Federal Confidentiality of Alcohol and Drug Abuse Patient Records regulations: The Federal rules restrict any use of the information to criminally investigate or prosecute any alcohol or drug abuse patient.[facility] HospitalIn the event this information is protected by the Federal Confidentiality of Alcohol and Drug Abuse Patient Records regulations: The Federal rules restrict any use of the information to criminally investigate or prosecute any alcohol or drug abuse patient.[facility] HospitalIn the event this information is protected by the Federal Confidentiality of Alcohol and Drug Abuse Patient Records regulations: The Federal rules restrict any use of the information to criminally investigate or prosecute any alcohol or drug abuse patient.[facility] HospitalIn the event this information is protected by the Federal Confidentiality of Alcohol and Drug Abuse Patient Records regulations: The Federal rules restrict any use of the information to criminally investigate or prosecute any alcohol or drug abuse patient.[facility] HospitalIn the event this information is protected by the Federal Confidentiality of Alcohol and Drug Abuse Patient Records regulations: The Federal rules restrict any use of the information to criminally investigate or prosecute any alcohol or drug abuse patient.[facility] HospitalIn the event this information is protected by the Federal Confidentiality of Alcohol and Drug Abuse Patient Records regulations: The Federal rules restrict any use of the information to criminally investigate or prosecute any alcohol or drug abuse patient.[facility] HospitalIn the event this information is protected by the Federal Confidentiality of Alcohol and Drug Abuse Patient Records regulations: The Federal rules restrict any use of the information to criminally investigate or prosecute any alcohol or drug abuse patient.[facility] HospitalIn the event this information is protected by the Federal Confidentiality of Alcohol and Drug Abuse Patient Records regulations: The Federal rules restrict any use of the information to criminally investigate or prosecute any alcohol or drug abuse patient.[facility] HospitalIn the event this information is protected by the Federal Confidentiality of Alcohol and Drug Abuse Patient Records regulations: The Federal rules restrict any use of the information to criminally investigate or prosecute any alcohol or drug abuse patient.[facility] HospitalIn the event this information is protected by the Federal Confidentiality of Alcohol and Drug Abuse Patient Records regulations: The Federal rules restrict any use of the information to criminally investigate or prosecute any alcohol or drug abuse patient.[facility] HospitalIn the event this information is protected by the Federal Confidentiality of Alcohol and Drug Abuse Patient Records regulations: The Federal rules restrict any use of the information to criminally investigate or prosecute any alcohol or drug abuse patient.[facility] HospitalIn the event this information is protected by the Federal Confidentiality of Alcohol and Drug Abuse Patient Records regulations: The Federal rules restrict any use of the information to criminally investigate or prosecute any alcohol or drug abuse patient.[facility] HospitalIn the event this information is protected by the Federal Confidentiality of Alcohol and Drug Abuse Patient Records regulations: The Federal rules restrict any use of the information to criminally investigate or prosecute any alcohol or drug abuse patient.[facility] HospitalIn the event this information is protected by the Federal Confidentiality of Alcohol and Drug Abuse Patient Records regulations: The Federal rules restrict any use of the information to criminally investigate or prosecute any alcohol or drug abuse patient.[facility] HospitalIn the event this information is protected by the Federal Confidentiality of Alcohol and Drug Abuse Patient Records regulations: The Federal rules restrict any use of the information to criminally investigate or prosecute any alcohol or drug abuse patient.[facility] HospitalIn the event this information is protected by the Federal Confidentiality of Alcohol and Drug Abuse Patient Records regulations: The Federal rules restrict any use of the information to criminally investigate or prosecute any alcohol or drug abuse patient.[facility] HospitalIn the event this information is protected by the Federal Confidentiality of Alcohol and Drug Abuse Patient Records regulations: The Federal rules restrict any use of the information to criminally investigate or prosecute any alcohol or drug abuse patient.[facility] HospitalIn the event this information is protected by the Federal Confidentiality of Alcohol and Drug Abuse Patient Records regulations: The Federal rules restrict any use of the information to criminally investigate or prosecute any alcohol or drug abuse patient.[facility] HospitalIn the event this information is protected by the Federal Confidentiality of Alcohol and Drug Abuse Patient Records regulations: The Federal rules restrict any use of the information to criminally investigate or prosecute any alcohol or drug abuse patient.[facility] HospitalIn the event this information is protected by the Federal Confidentiality of Alcohol and Drug Abuse Patient Records regulations: The Federal rules restrict any use of the information to criminally investigate or prosecute any alcohol or drug abuse patient.[facility] HospitalIn the event this information is protected by the Federal Confidentiality of Alcohol and Drug Abuse Patient Records regulations: The Federal rules restrict any use of the information to criminally investigate or prosecute any alcohol or drug abuse patient.[facility] HospitalIn the event this information is protected by the Federal Confidentiality of Alcohol and Drug Abuse Patient Records regulations: The Federal rules restrict any use of the information to criminally investigate or prosecute any alcohol or drug abuse patient.[facility] HospitalIn the event this information is protected by the Federal Confidentiality of Alcohol and Drug Abuse Patient Records regulations: The Federal rules restrict any use of the information to criminally investigate or prosecute any alcohol or drug abuse patient.[facility] HospitalIn the event this information is protected by the Federal Confidentiality of Alcohol and Drug Abuse Patient Records regulations: The Federal rules restrict any use of the information to criminally investigate or prosecute any alcohol or drug abuse patient.[facility] HospitalIn the event this information is protected by the Federal Confidentiality of Alcohol and Drug Abuse Patient Records regulations: The Federal rules restrict any use of the information to criminally investigate or prosecute any alcohol or drug abuse patient.[facility] HospitalIn the event this information is protected by the Federal Confidentiality of Alcohol and Drug Abuse Patient Records regulations: The Federal rules restrict any use of the information to criminally investigate or prosecute any alcohol or drug abuse patient.[facility] HospitalIn the event this information is protected by the Federal Confidentiality of Alcohol and Drug Abuse Patient Records regulations: The Federal rules restrict any use of the information to criminally investigate or prosecute any alcohol or drug abuse patient.[facility] HospitalIn the event this information is protected by the Federal Confidentiality of Alcohol and Drug Abuse Patient Records regulations: The Federal rules restrict any use of the information to criminally investigate or prosecute any alcohol or drug abuse patient.[facility] HospitalIn the event this information is protected by the Federal Confidentiality of Alcohol and Drug Abuse Patient Records regulations: The Federal rules restrict any use of the information to criminally investigate or prosecute any alcohol or drug abuse patient.[facility] HospitalIn the event this information is protected by the Federal Confidentiality of Alcohol and Drug Abuse Patient Records regulations: The Federal rules restrict any use of the information to criminally investigate or prosecute any alcohol or drug abuse patient.[facility] HospitalIn the event this information is protected by the Federal Confidentiality of Alcohol and Drug Abuse Patient Records regulations: The Federal rules restrict any use of the information to criminally investigate or prosecute any alcohol or drug abuse patient.[facility] HospitalIn the event this information is protected by the Federal Confidentiality of Alcohol and Drug Abuse Patient Records regulations: The Federal rules restrict any use of the information to criminally investigate or prosecute any alcohol or drug abuse patient.[facility] HospitalIn the event this information is protected by the Federal Confidentiality of Alcohol and Drug Abuse Patient Records regulations: The Federal rules restrict any use of the information to criminally investigate or prosecute any alcohol or drug abuse patient.[facility] HospitalIn the event this information is protected by the Federal Confidentiality of Alcohol and Drug Abuse Patient Records regulations: The Federal rules restrict any use of the information to criminally investigate or prosecute any alcohol or drug abuse patient.[facility] HospitalIn the event this information is protected by the Federal Confidentiality of Alcohol and Drug Abuse Patient Records regulations: The Federal rules restrict any use of the information to criminally investigate or prosecute any alcohol or drug abuse patient.[facility] HospitalIn the event this information is protected by the Federal Confidentiality of Alcohol and Drug Abuse Patient Records regulations: The Federal rules restrict any use of the information to criminally investigate or prosecute any alcohol or drug abuse patient.[facility] HospitalIn the event this information is protected by the Federal Confidentiality of Alcohol and Drug Abuse Patient Records regulations: The Federal rules restrict any use of the information to criminally investigate or prosecute any alcohol or drug abuse patient.[facility] HospitalIn the event this information is protected by the Federal Confidentiality of Alcohol and Drug Abuse Patient Records regulations: The Federal rules restrict any use of the information to criminally investigate or prosecute any alcohol or drug abuse patient.[facility] HospitalIn the event this information is protected by the Federal Confidentiality of Alcohol and Drug Abuse Patient Records regulations: The Federal rules restrict any use of the information to criminally investigate or prosecute any alcohol or drug abuse patient.[facility] HospitalIn the event this information is protected by the Federal Confidentiality of Alcohol and Drug Abuse Patient Records regulations: The Federal rules restrict any use of the information to criminally investigate or prosecute any alcohol or drug abuse patient.[facility] HospitalIn the event this information is protected by the Federal Confidentiality of Alcohol and Drug Abuse Patient Records regulations: The Federal rules restrict any use of the information to criminally investigate or prosecute any alcohol or drug abuse patient.[facility] HospitalIn the event this information is protected by the Federal Confidentiality of Alcohol and Drug Abuse Patient Records regulations: The Federal rules restrict any use of the information to criminally investigate or prosecute any alcohol or drug abuse patient.[facility] HospitalIn the event this information is protected by the Federal Confidentiality of Alcohol and Drug Abuse Patient Records regulations: The Federal rules restrict any use of the information to criminally investigate or prosecute any alcohol or drug abuse patient.[facility] HospitalIn the event this information is protected by the Federal Confidentiality of Alcohol and Drug Abuse Patient Records regulations: The Federal rules restrict any use of the information to criminally investigate or prosecute any alcohol or drug abuse patient.[facility] HospitalIn the event this information is protected by the Federal Confidentiality of Alcohol and Drug Abuse Patient Records regulations: The Federal rules restrict any use of the information to criminally investigate or prosecute any alcohol or drug abuse patient.[facility] HospitalIn the event this information is protected by the Federal Confidentiality of Alcohol and Drug Abuse Patient Records regulations: The Federal rules restrict any use of the information to criminally investigate or prosecute any alcohol or drug abuse patient.[facility] HospitalIn the event this information is protected by the Federal Confidentiality of Alcohol and Drug Abuse Patient Records regulations: The Federal rules restrict any use of the information to criminally investigate or prosecute any alcohol or drug abuse patient.[facility] HospitalIn the event this information is protected by the Federal Confidentiality of Alcohol and Drug Abuse Patient Records regulations: The Federal rules restrict any use of the information to criminally investigate or prosecute any alcohol or drug abuse patient.[facility] Care Teams (unrecognized sec tion and content) Radiation Oncology Nurse Relationship Specialty Start Date End Date Eloisa Espinal MD [address] [place], [place] [id number] PCP - General 12/14/08 Buddy Lynn MD [facility] [address] [place], [place] [id number] Consulting General Surgery 12/24/18 Eloisa Espinal MD [address] [place], [place] [id number] Home Care Physician Family Practice 12/24/18 Radiation Oncology Nurse Relationship Specialty Start Date End Date Eloisa Espinal MD [address] [place], [place] [id number] PCP - General 12/14/08 Buddy Lynn MD [address] [facility] [address] [place] [address] Consulting General Surgery 12/24/18 Eloisa Espinal MD [address] [place] [address] Home Care Physician Family Practice 12/24/18 Radiation Oncology Nurse Relationship Specialty Start Date End Date Eloisa Espinal MD [address] [place] [address] PCP - General 12/14/08 Buddy Lynn MD [address] [facility] [address] [place] [address] Consulting General Surgery 12/24/18 Eloisa Espinal MD [address] [place] [address] Home Care Physician Family Practice 12/24/18 Radiation Oncology Nurse Relationship Specialty Start Date End Date Eloisa Espinal MD [address] [place] [address] PCP - General 12/14/08 Buddy Lynn MD [address] [facility] [address] [place] [address] Consulting General Surgery 12/24/18 Eloisa Espinal MD [address] [place] [address] Home Care Physician Family Practice 12/24/18 Radiation Oncology Nurse Relationship Specialty Start Date End Date Eloisa Espinal MD [address] [place] [address] PCP - General 12/14/08 Buddy Lynn MD [address] [facility] [address] [place] [address] Consulting General Surgery 12/24/18 Eloisa Espinal MD [address] [place] [address] Home Care Physician Family Practice 12/24/18 Radiation Oncology Nurse Relationship Specialty Start Date End Date Eloisa Espinal MD [address] [place] [address] PCP - General 12/14/08 Buddy Lynn MD [address] [facility] [address] [place] [address] Consulting General Surgery 12/24/18 Eloisa Espinal MD [address] [place] [address] Home Care Physician Family Practice 12/24/18 Radiation Oncology Nurse Relationship Specialty Start Date End Date Eloisa Espinal MD [address] [place] [address] PCP - General 12/14/08 Buddy Lynn MD [address] [facility] [address] [place] [address] Consulting General Surgery 12/24/18 Eloisa Espinal MD [address] [place] [address] Home Care Physician Family Practice 12/24/18 Radiation Oncology Nurse Relationship Specialty Start Date End Date Eloisa Espinal MD [address] [place] [address] PCP - General 12/14/08 Buddy Lynn MD [address] [facility] [address] [place] [address] Consulting General Surgery 12/24/18 Eloisa Espinal MD [address] [place] [address] Home Care Physician Family Practice 12/24/18 Radiation Oncology Nurse Relationship Specialty Start Date End Date Eloisa Espinal MD [address] [place] [address] PCP - General 12/14/08 Buddy Lynn MD [address] [facility] [address] [place] [address] Consulting General Surgery 12/24/18 Eloisa Espinal MD [address] [place] [address] Home Care Physician Family Practice 12/24/18 Radiation Oncology Nurse Relationship Specialty Start Date End Date Eloisa Espinal MD [address] [place] [address] PCP - General 12/14/08 Buddy Lynn MD [address] [place] [address] [facility] [address] [place] [address] Consulting General Surgery 12/24/18 Eloisa Espinal MD [address] [place] [address] Home Care Physician Family Practice 12/24/18 Radiation Oncology Nurse Relationship Specialty Start Date End Date Eloisa Espinal MD [address] [place] [address] PCP - General 12/14/08 Buddy Lynn MD [address] [facility] [address] [place] [address] Consulting General Surgery 12/24/18 Eloisa Espinal MD [address] [place] [address] Home Care Physician Family Practice 12/24/18 Radiation Oncology Nurse Relationship Specialty Start Date End Date Eloisa Espinal MD [address] [place] [address] PCP - General 12/14/08 Buddy Lynn MD [address] [place] [address] [facility] [address] [place] [address] Consulting General Surgery 12/24/18 Eloisa Espinal MD [address] [place] [address] Home Care Physician Family Practice 12/24/18 Radiation Oncology Nurse Relationship Specialty Start Date End Date Eloisa Espinal MD [address] [place] [address] PCP - General 12/14/08 Buddy Lynn MD [address] [place] [address] [facility] [address] [place] [address] Consulting General Surgery 12/24/18 Eloisa Espinal MD [address] [place] [address] Home Care Physician Family Practice 12/24/18 Radiation Oncology Nurse Relationship Specialty Start Date End Date Eloisa Espinal MD [address] [place] [address] PCP - General 12/14/08 Buddy Lynn MD [address] [facility] [address] [place] [address] Consulting General Surgery 12/24/18 Eloisa Espinal MD [address] [place] [address] Home Care Physician Family Practice 12/24/18 Radiation Oncology Nurse Relationship Specialty Start Date End Date Eloisa Espinal MD [address] [place] [address] PCP - General 12/14/08 Buddy Lynn MD [address] [facility] [address] [place] [address] Consulting General Surgery 12/24/18 Eloisa Espinal MD [address] [place] [address] Home Care Physician Family Practice 12/24/18 Radiation Oncology Nurse Relationship Specialty Start Date End Date Eloisa Espinal MD [address] [place] [address] PCP - General 12/14/08 Buddy Lynn MD [address] [address] [facility] [address] [place] [address] Consulting General Surgery 12/24/18 Eloisa Espinal MD [address] [place] [address] Home Care Physician Family Practice 12/24/18 Radiation Oncology Nurse Relationship Specialty Start Date End Date Eloisa Espinal MD [address] [place] [address] PCP - General 12/14/08 Buddy Lynn MD [address] [facility] [address] [place] [address] Consulting General Surgery 12/24/18 Eloisa Espinal MD [address] [place] [address] Home Care Provider Family Medicine 12/24/18 Radiation Oncology Nurse Relationship Specialty Start Date End Date Eloisa Espinal MD [address] [place] [address] PCP - General 12/14/08 Buddy Lynn MD [address] [place] [address] [facility] [address] [place] [address] Consulting General Surgery 12/24/18 Eloisa Espinal MD [address] [place] [address] Home Care Provider Family Medicine 12/24/18 Radiation Oncology Nurse Relationship Specialty Start Date End Date Eloisa Espinal MD [address] [facility] [place] [address] PCP - General 12/14/08 Buddy Lynn MD [address] [address] [facility] [address] [place] [address] Consulting General Surgery 12/24/18 Eloisa Espinal MD [address] [place] [address] Home Care Provider Family Medicine 12/24/18 Radiation Oncology Nurse Relationship Specialty Start Date End Date Eloisa Espinal MD [address] [place] [address] PCP - General 12/14/08 Buddy Lynn MD [address] [facility] [address] [place] [address] Consulting General Surgery 12/24/18 Eloisa Espinal MD [address] [place] [address] Home Care Provider Family Medicine 12/24/18 Radiation Oncology Nurse Relationship Specialty Start Date End Date Eloisa Espinal MD [address] [place] [address] PCP - General 12/14/08 Buddy Lynn MD [address] [facility] [address] [place] [address] Consulting General Surgery 12/24/18 Eloisa Espinal MD [address] [place] [address] Home Care Provider Family Medicine 12/24/18 Radiation Oncology Nurse Relationship Specialty Start Date End Date Eloisa Espinal MD [address] [place] [address] PCP - General 12/14/08 Buddy Lynn MD [address] [facility] [address] [place] [address] Consulting General Surgery 12/24/18 Eloisa Espinal MD [address] [place] [address] Home Care Provider Family Medicine 12/24/18 Radiation Oncology Nurse Relationship Specialty Start Date End Date Eloisa Espinal MD [address] [place] [address] PCP - General 12/14/08 Buddy Lynn MD [address] [address] [facility] [address] [place] [address] Consulting General Surgery 12/24/18 Eloisa Espinal MD [address] [place] [address] Home Care Provider Family Medicine 12/24/18 Radiation Oncology Nurse Relationship Specialty Start Date End Date Eloisa Espinal MD [address] [place] [address] PCP - General 12/14/08 Buddy Lynn MD [address] [place] [address] [facility] [address] [place] [address] Consulting General Surgery 12/24/18 Eloisa Espinal MD [address] [place] [address] Home Care Provider Family Medicine 12/24/18 Radiation Oncology Nurse Relationship Specialty Start Date End Date Eloisa Espinal MD [address] [place] [address] PCP - General 12/14/08 Buddy Lynn MD [address] [place] [address] [facility] [address] [place] [address] Consulting General Surgery 12/24/18 Eloisa Espinal MD [address] [place] [address] Home Care Provider Family Medicine 12/24/18 Radiation Oncology Nurse Relationship Specialty Start Date End Date Eloisa Espinal MD [address] [place] [address] PCP - General 12/14/08 Buddy Lynn MD [address] [address] [facility] [address] [place] [address] Consulting General Surgery 12/24/18 Eloisa Espinal MD [address] [place] [address] Home Care Provider Family Medicine 12/24/18 Radiation Oncology Nurse Relationship Specialty Start Date End Date Eloisa Espinal MD [address] [place] [address] PCP - General 12/14/08 Buddy Lynn MD [address] [address] [facility] [address] [place] [address] Consulting General Surgery 12/24/18 Eloisa Espinal MD [address] [place] [address] Home Care Provider Family Medicine 12/24/18 Radiation Oncology Nurse Relationship Specialty Start Date End Date Eloisa Espinal MD [address] [place] [address] PCP - General 12/14/08 Buddy Lynn MD [address] [facility] [address] [place] [address] Consulting General Surgery 12/24/18 Eloisa Espinal MD [address] [place] [address] Home Care Provider Family Medicine 12/24/18 Radiation Oncology Nurse Relationship Specialty Start Date End Date Eloisa Espinal MD [address] [place] [address] PCP - General 12/14/08 Buddy Lynn MD [address] [facility] [address] [place] [address] Consulting General Surgery 12/24/18 Eloisa Espinal MD [address] [place] [address] Home Care Provider Family Medicine 12/24/18 Radiation Oncology Nurse Relationship Specialty Start Date End Date Eloisa Espinal MD [address] [place] [address] PCP - General 12/14/08 Buddy Lynn MD [address] [place] [address] [facility] [address] [place] [address] Consulting General Surgery 12/24/18 Eloisa Espinal MD [address] [place] [address] Home Care Provider Family Medicine 12/24/18 Radiation Oncology Nurse Relationship Specialty Start Date End Date Eloisa Espinal MD [address] [place] [address] PCP - General 12/14/08 Buddy Lynn MD [address] [place] [facility] [address] [facility] [address] [place] [address] Consulting General Surgery 12/24/18 Eloisa Espinal MD [address] [place] [address] Home Care Provider Family Medicine 12/24/18 Radiation Oncology Nurse Relationship Specialty Start Date End Date Eloisa Espinal MD [address] [place] [address] PCP - General 12/14/08 Buddy Lynn MD [address] [facility] [address] [place] [address] Consulting General Surgery 12/24/18 Eloisa Espinal MD [address] [place] [address] Home Care Provider Family Medicine 12/24/18 Radiation Oncology Nurse Relationship Specialty Start Date End Date Eloisa Espinal MD [address] [place] [address] PCP - General 12/14/08 Buddy Lynn MD [address] [place] [address] [facility] [address] [place] [address] Consulting General Surgery 12/24/18 Eloisa Espinal MD [address] [place] [address] Home Care Provider Family Medicine 12/24/18 Radiation Oncology Nurse Relationship Specialty Start Date End Date Eloisa Espinal MD [address] [place] [address] PCP - General 12/14/08 Buddy Lynn MD [address] [place] [address] [facility] [address] [place] [address] Consulting General Surgery 12/24/18 Eloisa Espinal MD [address] [place] [address] Home Care Provider Family Medicine 12/24/18 Radiation Oncology Nurse Relationship Specialty Start Date End Date Eloisa Espinal MD [address] [place] [address] PCP - General 12/14/08 Buddy Lynn MD [address] [facility] [address] [place] [address] Consulting General Surgery 12/24/18 Eloisa Espinal MD [address] [place] [address] Home Care Provider Family Medicine 12/24/18 Radiation Oncology Nurse Relationship Specialty Start Date End Date Eloisa Espinal MD [address] [place] [address] PCP - General 12/14/08 Buddy Lynn MD [address] [address] [place] [address] Consulting General Surgery 12/24/18 Eloisa Espinal MD [address] [place] [address] Home Care Provider Family Medicine 12/24/18 Radiation Oncology Nurse Relationship Specialty Start Date End Date Eloisa Espinal MD [address] [place] [address] PCP - General 12/14/08 Buddy Lynn MD [address] [address] [place] [address] Consulting General Surgery 12/24/18 Eloisa Espinal MD [address] [place] [address] Home Care Provider Family Medicine 12/24/18 Radiation Oncology Nurse Relationship Specialty Start Date End Date Eloisa Espinal MD [address] [place] [address] PCP - General 12/14/08 Buddy Lynn MD [address] [address] [place] [address] Consulting General Surgery 12/24/18 Eloisa Espinal MD [address] [place] [address] Home Care Provider Family Medicine 12/24/18 Radiation Oncology Nurse Relationship Specialty Start Date End Date Eloisa Espinal MD [address] [place] [address] PCP - General 12/14/08 Buddy Lynn MD [address] [address] [place] [address] Consulting General Surgery 12/24/18 Eloisa Espinal MD [address] [place] [address] Home Care Provider Family Medicine 12/24/18 Radiation Oncology Nurse Relationship Specialty Start Date End Date Eloisa Espinal MD [address] [place] [address] PCP - General 12/14/08 Buddy Lynn MD [address] [address] [place] [address] Consulting General Surgery 12/24/18 Eloisa Espinal MD [address] [place] [address] Home Care Provider Family Medicine 12/24/18 Radiation Oncology Nurse Relationship Specialty Start Date End Date Eloisa Espinal MD [address] [place] [address] PCP - General 12/14/08 Buddy Lynn MD [address] [place] [address] [place] [address] Consulting General Surgery 12/24/18 Eloisa Espinal MD [address] [place] [address] Home Care Provider Family Medicine 12/24/18 Radiation Oncology Nurse Relationship Specialty Start Date End Date Eloisa Espinal MD [address] [facility] [place] [address] PCP - General 12/14/08 Buddy Lynn MD [address] [place] [address] [place] [address] Consulting General Surgery 12/24/18 Eloisa Espinal MD [address] [place] [address] Home Care Provider Family Medicine 12/24/18 Radiation Oncology Nurse Relationship Specialty Start Date End Date Eloisa Espinal MD [address] [place] [address] PCP - General 12/14/08 Buddy Lynn MD [address] [address] [place], [place] [phone] Consulting General Surgery 12/24/18 Eloisa Espinal MD [address] [place] [address] Home Care Provider Family Medicine 12/24/18 Radiation Oncology Nurse Relationship Specialty Start Date End Date Eloisa Espinal MD [address] [place] [address] PCP - General 12/14/08 Buddy Lynn MD [address] [place] [address] [place] [address] Consulting General Surgery 12/24/18 Eloisa Espinal MD [address] [place] [address] Home Care Provider Family Medicine 12/24/18 Radiation Oncology Nurse Relationship Specialty Start Date End Date Eloisa Espinal MD [address] [place] [address] PCP - General 12/14/08 Buddy Lynn MD [address] [address] [place], [place] [phone] Consulting General Surgery 12/24/18 Eloisa Espinal MD [address] [place] [address] Home Care Provider Family Medicine 12/24/18 Radiation Oncology Nurse Relationship Specialty Start Date End Date Eloisa Espinal MD [address] [place] [address] PCP - General 12/14/08 Buddy Lynn MD [address] [address] [place] [address] Consulting General Surgery 12/24/18 Eloisa Espinal MD [address] [place] [address] Home Care Provider Family Medicine 12/24/18 Radiation Oncology Nurse Relationship Specialty Start Date End Date Eloisa Espinal MD [address] [place] [address] PCP - General 12/14/08 Buddy Lynn MD [address] [place] [address] [place] [address] Consulting General Surgery 12/24/18 Eloisa Espinal MD [address] [place] [address] Home Care Provider Family Medicine 12/24/18 Radiation Oncology Nurse Relationship Specialty Start Date End Date Eloisa Espinal MD [address] [place] [address] PCP - General 12/14/08 Buddy Lynn MD [address] [place] [address] [place], [place] [phone] Consulting General Surgery 12/24/18 Eloisa Espinal MD [address] [place] [address] Home Care Provider Family Medicine 12/24/18 Radiation Oncology Nurse Relationship Specialty Start Date End Date Eloisa Espinal MD [address] [place] [address] PCP - General 12/14/08 Buddy Lynn MD [address] [place] [address] [place] [address] Consulting General Surgery 12/24/18 Eloisa Espinal MD [address] [place] [address] Home Care Provider Family Medicine 12/24/18 Radiation Oncology Nurse Relationship Specialty Start Date End Date Eloisa Espinal MD [address] [facility] [place] [address] PCP - General 12/14/08 Buddy Lynn MD [address] [place] [address] [place] [address] Consulting General Surgery 12/24/18 Eloisa Espinal MD [address] [place] [address] Home Care Provider Family Medicine 12/24/18 Team Status: Active Member Role Status Dates Dr. Eloisa Espinal MD Family Provider Active Dr. Eloisa Espinal MD Primary Care Provider Active Team Status: Inactive Member Role Status Dates Dr. Eloisa Espinal MD Primary Care Provider Active Dr. Virgil Barker DO Emergency Provider Active Radiation Oncology Nurse Relationship Specialty Start Date End Date Elosia Espinal MD [address] [place] [address] PCP - General 12/14/08 Buddy Lynn MD [address] [place] [address] [place] [address] Consulting General Surgery 12/24/18 Eloisa Espinal MD [address] [place] [address] Home Care Provider Family Medicine 12/24/18 Radiation Oncology Nurse Relationship Specialty Start Date End Date Eloisa Espinal MD [address] [place] [address] PCP - General 12/14/08 Buddy Lynn MD [address] [place] [address] [place] [address] Consulting General Surgery 12/24/18 Eloisa Espinal MD [address] [place] [address] Home Care Provider Family Medicine 12/24/18 Radiation Oncology Nurse Relationship Specialty Start Date End Date Eloisa Espinal MD [address] [facility] [place] [address] PCP - General 12/14/08 Buddy Lynn MD [address] [place] [address] [place], [place] [phone] Consulting General Surgery 12/24/18 Eloisa Espinal MD [address] [place] [address] Home Care Provider Family Medicine 12/24/18 Radiation Oncology Nurse Relationship Specialty Start Date End Date Eloisa Espinal MD [address] [place] [address] PCP - General 12/14/08 Buddy Lynn MD [address] [place] [address] [place] [address] Consulting General Surgery 12/24/18 Eloisa Espinal MD [address] [place] [address] Home Care Provider Family Medicine 12/24/18 Radiation Oncology Nurse Relationship Specialty Start Date End Date Eloisa Espinal MD [address] [place] [address] PCP - General 12/14/08 Buddy Lynn MD [address] [place] [address] [place] [address] Consulting General Surgery 12/24/18 Eloisa Espinal MD [address] [place] [address] Home Care Provider Family Medicine 12/24/18 Radiation Oncology Nurse Relationship Specialty Start Date End Date Eloisa Espinal MD [address] [facility] [place] [address] PCP - General 12/14/08 Buddy Lynn MD [address] [place] [address] [place] [address] Consulting General Surgery 12/24/18 Eloisa Espinal MD [address] [place] [address] Home Care Provider Family Medicine 12/24/18 Radiation Oncology Nurse Relationship Specialty Start Date End Date Eloisa Espinal MD [address] [place] [address] PCP - General 12/14/08 Buddy Lynn MD [address] [place] [address] [place], [place] [phone] Consulting General Surgery 12/24/18 Eloisa Espinal MD [address] [place] [address] Home Care Provider Family Medicine 12/24/18 Radiation Oncology Nurse Relationship Specialty Start Date End Date Eloisa Espinal MD [address] [place] [address] PCP - General 12/14/08 Buddy Lynn MD [address] [place] [address] [place] [address] Consulting General Surgery 12/24/18 Eloisa Espinal MD [address] [place] [address] Home Care Provider Family Medicine 12/24/18 Radiation Oncology Nurse Relationship Specialty Start Date End Date Eloisa Espinal MD [address] [place] [address] PCP - General 12/14/08 Buddy Lynn MD [address] [place] [address] [place], [place] [phone] Consulting General Surgery 12/24/18 Eloisa Espinal MD [address] [place] [address] Home Care Provider Family Medicine 12/24/18 Radiation Oncology Nurse Relationship Specialty Start Date End Date Eloisa Espinal MD [address] [place] [address] PCP - General 12/14/08 Buddy Lynn MD [address] [place] [address] [place], [place] [phone] Consulting General Surgery 12/24/18 Eloisa Espinal MD [address] [place] [address] Home Care Provider Family Medicine 12/24/18 Radiation Oncology Nurse Relationship Specialty Start Date End Date Eloisa Espinal MD [address] [place] [address] PCP - General 12/14/08 Buddy Lynn MD [address] [place] [address] [place] [address] Consulting General Surgery 12/24/18 Eloisa Espinal MD [address] [place] [address] Home Care Provider Family Medicine 12/24/18 Radiation Oncology Nurse Relationship Specialty Start Date End Date Eloisa Espinal MD [address] [place] [address] PCP - General 12/14/08 Buddy Lynn MD [address] [place] [address] [place], [place] [phone] Consulting General Surgery 12/24/18 Eloisa Espinal MD [address] [place] [address] Home Care Provider Family Medicine 12/24/18 Radiation Oncology Nurse Relationship Specialty Start Date End Date Eloisa Espinal MD [address] [place] [address] PCP - General 12/14/08 Buddy Lynn MD [address] [place] [address] [place] [address] Consulting General Surgery 12/24/18 Eloisa Espinal MD [address] [place] [address] Home Care Provider Family Medicine 12/24/18 Radiation Oncology Nurse Relationship Specialty Start Date End Date Eloisa Espinal MD [address] [place] [address] PCP - General 12/14/08 Buddy Lynn MD [address] [place] [address] [place] [address] Consulting General Surgery 12/24/18 Eloisa Espinal MD [address] [place], [place] [address] Home Care Provider Family Medicine 12/24/18 Tremayne Arnett, [address] [place] [address] Primary Care Hospital Ward Clerk 07/10/23 Radiation Oncology Nurse Relationship Specialty Start Date End Date Eloisa Espinal MD [address] [place], [place] [phone] PCP - General 12/14/08 Buddy yLnn MD [address] [place] [address] [place], [place] [phone] Consulting General Surgery 12/24/18 Eloisa Espinal MD [address] [place], [place] [phone] Home Care Provider Family Medicine 12/24/18 Tremayne Arnett, [address] [address] [place] [address] Primary Care Hospital Ward Clerk 07/10/23 Radiation Oncology Nurse Relationship Specialty Start Date End Date Eloisa Espinal MD [address] [place] [address] PCP - General 12/14/08 Buddy Lynn MD [address] [address] [place], [place] [phone] Consulting General Surgery 12/24/18 Eloisa Espinal MD [address] [place], [place] [address] Home Care Provider Family Medicine 12/24/18 Tremayne Arnett RN [address] [place] [address] Primary Care Hospital Ward Clerk 07/10/23 Radiation Oncology Nurse Relationship Specialty Start Date End Date Eloisa Espinal MD [address] [place] [address] PCP - General 12/14/08 Buddy Lynn MD [address] [place] [facility] [address] [facility] [address] [place], [place] [phone] Consulting General Surgery 12/24/18 Eloisa Espinal MD [address] [place] [address] Home Care Provider Family Medicine 12/24/18 Tremayne Arnett RN [address] [place] [address] Primary Care Hospital Ward Clerk 07/10/23 Radiation Oncology Nurse Relationship Specialty Start Date End Date Eloisa Espinal MD [address] [place] [address] PCP - General 12/14/08 Buddy Lynn MD 1 [facility] [address] [place], [place] [phone] Consulting General Surgery 12/24/18 Eloisa Espinal MD [address] [place] [address] Home Care Provider Family Medicine 12/24/18 Radiation Oncology Nurse Relationship Specialty Start Date End Date Eloisa Espinal MD [address] [place] [address] PCP - General 12/14/08 Buddy Lynn MD [address] [place] [address] [place], [place] [phone] Consulting General Surgery 12/24/18 Eloisa Espinal MD [address] [place] [address] Home Care Provider Family Medicine 12/24/18 Radiation Oncology Nurse Relationship Specialty Start Date End Date Eloisa Espinal MD [address] [place] [address] PCP - General 12/14/08 Buddy Lynn MD [address] [place] [address] [facility] [address] [place] [address] Consulting General Surgery 12/24/18 Eloisa Espinal MD [address] [place] [address] Home Care Provider Family Medicine 12/24/18 Radiation Oncology Nurse Relationship Specialty Start Date End Date Eloisa Espinal MD [address] [place] [address] PCP - General 12/14/08 Buddy Lynn MD [address] [place] [address] [facility] [address] [place] [address] Consulting General Surgery 12/24/18 Eloisa Espinal MD [address] [place] [address] Home Care Provider Family Medicine 12/24/18 Radiation Oncology Nurse Relationship Specialty Start Date End Date Eloisa Espinal MD [address] [place] [address] PCP - General 12/14/08 Buddy Lynn MD [address] [place] [address] [place] [address] Consulting General Surgery 12/24/18 Eloisa Espinal MD [address] [place] [address] Home Care Provider Family Medicine 12/24/18 Radiation Oncology Nurse Relationship Specialty Start Date End Date Eloisa Espinal MD [address] [place] [address] PCP - General 12/14/08 Buddy Lynn MD [address] [address] [place], [place] [phone] Consulting General Surgery 12/24/18 Eloisa Espinal MD [address] [place] [address] Home Care Provider Family Medicine 12/24/18 Radiation Oncology Nurse Relationship Specialty Start Date End Date Eloisa Espinal MD [address] [place] [address] PCP - General 12/14/08 Buddy Lynn MD [address] [place] [address] [place] [address] Consulting General Surgery 12/24/18 Eloisa Espinal MD [address] [place] [address] Home Care Provider Family Medicine 12/24/18 Radiation Oncology Nurse Relationship Specialty Start Date End Date Eloisa Espinal MD [address] [place] [address] PCP - General 12/14/08 Buddy Lynn MD [address] [address] [place], [place] [phone] Consulting General Surgery 12/24/18 Eloisa Espinal MD [address] [place] [address] Home Care Provider Family Medicine 12/24/18 Radiation Oncology Nurse Relationship Specialty Start Date End Date Eloisa Espinal MD [address] [place] [address] PCP - General 12/14/08 Buddy Lynn MD [address] [address] [place], [place] [phone] Consulting General Surgery 12/24/18 Eloisa Espinal MD [address] [place] [address] Home Care Provider Family Medicine 12/24/18 Radiation Oncology Nurse Relationship Specialty Start Date End Date Eloisa Espinal MD [address] [place] [address] PCP - General 12/14/08 Buddy Lynn MD [address] [address] [place], [place] [phone] Consulting General Surgery 12/24/18 Eloisa Espinal MD [address] [place] [address] Home Care Provider Family Medicine 12/24/18 Radiation Oncology Nurse Relationship Specialty Start Date End Date Eloisa Espinal MD [address] [place] [address] PCP - General 12/14/08 Buddy Lynn MD [address] [address] [place], [place] [phone] Consulting General Surgery 12/24/18 Eloisa Espinal MD [address] [place] [address] Home Care Provider Family Medicine 12/24/18 Radiation Oncology Nurse Relationship Specialty Start Date End Date Eloisa Espinal MD [address] [place] [address] PCP - General 12/14/08 Buddy Lynn MD [address] [place] [address] [facility] [address] [place], [place] [phone] Consulting General Surgery 12/24/18 Eloisa Espinal MD [address] [place] [address] Home Care Provider Family Medicine 12/24/18 Tremayne Arnett RN [address] [place] [address] Primary Care Hospital Ward Clerk 07/10/23 08/06/23 Radiation Oncology Nurse Relationship Specialty Start Date End Date Eloisa Espinal MD [address] [place], [place] [address] [phone] PCP - General 12/14/08 Buddy Lynn MD [address] [address] [place], [place] [phone] Consulting General Surgery 12/24/18 Eloisa Espinal MD [address] [facility] [place] [address] Home Care Provider Family Medicine 12/24/18 Radiation Oncology Nurse Relationship Specialty Start Date End Date Eloisa Espinal MD [address] [place] [address] PCP - General 12/14/08 Buddy Lynn MD [address] [place] [address] [place], [place] [phone] Consulting General Surgery 12/24/18 Eloisa Espinal MD [address] [place] [address] Home Care Provider Family Medicine 12/24/18 Radiation Oncology Nurse Relationship Specialty Start Date End Date Eloisa Espinal MD [address] [place] [address] PCP - General 12/14/08 Buddy Lynn MD [address] [place] [address] [place], [place] [phone] Consulting General Surgery 12/24/18 Eloisa Espinal MD [address] [place] [address] Home Care Provider Family Medicine 12/24/18 Elsa Mayo APRN.TRANSFER AND PUMPHOUSE OPERATOR CHIEF [address] [place] [address] Quality Assurance Practice Manager Family Medicine 01/20/24 Mike Lee APRN.TRANSFER AND PUMPHOUSE OPERATOR CHIEF [address] [place] [address] Quality Assurance Practice Manager Family [facility] 01/29/24 Radiation Oncology Nurse Relationship Specialty Start Date End Date Eloisa Espinal MD [address] [place] [address] PCP - General 12/14/08 Buddy Lynn MD [address] [place] [address] [place], [place] [phone] Consulting General Surgery 12/24/18 Eloisa Espinal MD [address] [place] [address] Home Care Provider Family Medicine 12/24/18 Elsa Mayo APRN.TRANSFER AND PUMPHOUSE OPERATOR CHIEF [address] [place] [address] Quality Assurance Practice Manager Family Medicine 01/20/24 Mike Lee APRN.TRANSFER AND PUMPHOUSE OPERATOR CHIEF [address] [place] [address] Quality Assurance Practice Manager Family [facility] 01/29/24 Radiation Oncology Nurse Relationship Specialty Start Date End Date Eloisa Espinal MD [address] [place] [address] PCP - General 12/14/08 Buddy Lynn MD [address] [address] [place], [place] [phone] Consulting General Surgery 12/24/18 Eloisa Espinal MD [address] [place] [address] Home Care Provider Family Medicine 12/24/18 Elsa Mayo APRN.TRANSFER AND PUMPHOUSE OPERATOR CHIEF [address] [place] [address] Quality Assurance Practice Manager Family Medicine 01/20/24 Mike Lee APRN.TRANSFER AND PUMPHOUSE OPERATOR CHIEF [address] [place] [address] Quality Assurance Practice Manager Family Medicine 01/29/24 Radiation Oncology Nurse Relationship Specialty Start Date End Date Eloisa Espinal MD [address] [place] [address] PCP - General 12/14/08 Buddy Lynn MD [address] [place] [facility] [address] [place], [place] [phone] Consulting General Surgery 12/24/18 Eloisa Espinal MD [address] [place] [address] Home Care Provider Family Medicine 12/24/18 Elsa Mayo APRN.TRANSFER AND PUMPHOUSE OPERATOR CHIEF [address] [place] [address] Quality Assurance Practice Manager Family Medicine 01/20/24 Mike Lee APRN.TRANSFER AND PUMPHOUSE OPERATOR CHIEF [address] [place] [address] Quality Assurance Practice Manager Family Medicine 01/29/24 Radiation Oncology Nurse Relationship Specialty Start Date End Date Eloisa Espinal MD [address] [place] [address] PCP - General 12/14/08 Buddy Lynn MD [address] [place] [facility] [address] [place] [address] Consulting General Surgery 12/24/18 Eloisa Espinal MD [address] [place] [address] Home Care Provider Family Medicine 12/24/18 Elsa Mayo APRN.TRANSFER AND PUMPHOUSE OPERATOR CHIEF [address] [place] [address] Quality Assurance Practice Manager Family Medicine 01/20/24 Mike Lee APRN.TRANSFER AND PUMPHOUSE OPERATOR CHIEF [address] [place] [address] Quality Assurance Practice Manager [facility] 01/29/24 Radiation Oncology Nurse Relationship Specialty Start Date End Date Eloisa Espinal MD [address] [place] [address] PCP - General 12/14/08 Buddy Lynn MD [address] [address] Consulting General Surgery 12/24/18 Eloisa Espinal MD [address] [place] [address] Home Care Provider Family Medicine 12/24/18 Elsa Mayo APRN.TRANSFER AND PUMPHOUSE OPERATOR CHIEF [address] [place] [address] Quality Assurance Practice Manager Family Medicine 01/20/24 Mike Lee APRN.TRANSFER AND PUMPHOUSE OPERATOR CHIEF [address] [place] [address] Quality Assurance Practice Manager Family Medicine 01/29/24 Radiation Oncology Nurse Relationship Specialty Start Date End Date Eloisa Espinal MD [address] [place] [address] PCP - General 12/14/08 Buddy Lynn MD [address] [address] [place], [place] [phone] Consulting General Surgery 12/24/18 Eloisa Espinal MD [address] [place] [address] Home Care Provider Family Medicine 12/24/18 Elsa Mayo APRN.TRANSFER AND PUMPHOUSE OPERATOR CHIEF [address] [place] [address] Quality Assurance Practice Manager Family Medicine 01/20/24 Mike Lee APRN.TRANSFER AND PUMPHOUSE OPERATOR CHIEF [address] [place] [address] Quality Assurance Practice Manager Family Medicine 01/29/24 Radiation Oncology Nurse Relationship Specialty Start Date End Date Eloisa Espinal MD [address] [place] [address] PCP - General 12/14/08 Buddy Lynn MD [address] [address] [place], [place] [phone] Consulting General Surgery 12/24/18 Eloisa Espinal MD [address] [place] [address] Home Care Provider Family Medicine 12/24/18 Elsa Mayo APRN.TRANSFER AND PUMPHOUSE OPERATOR CHIEF [address] [place] [address] Quality Assurance Practice Manager Family Medicine 01/20/24 Mike Lee, FIELD MECHANIC/SITE LEAD.TRANSFER AND PUMPHOUSE OPERATOR CHIEF [address] [place] [address] Quality Assurance Practice Manager Family [facility] 01/29/24 Radiation Oncology Nurse Relationship Specialty Start Date End Date Eloisa Espinal MD [address] [place] [address] PCP - General 12/14/08 Buddy Lynn MD [address] [address] [place], [place] [phone] Consulting General Surgery 12/24/18 Eloisa Espinal MD [address] [place] [address] Home Care Provider Family Medicine 12/24/18 Elsa Mayo, FIELD MECHANIC/SITE LEAD.TRANSFER AND PUMPHOUSE OPERATOR CHIEF [address] [place] [address] Quality Assurance Practice Manager Family [facility] 01/20/24 Mike Lee, FIELD MECHANIC/SITE LEAD.TRANSFER AND PUMPHOUSE OPERATOR CHIEF [address] [place] [address] Quality Assurance Practice Manager Family [facility] 01/29/24 Radiation Oncology Nurse Relationship Specialty Start Date End Date Eloisa Espinal MD [address] [place] [address] PCP - General 12/14/08 Buddy Lynn MD [address] [address] [place], [place] [phone] Consulting General Surgery 12/24/18 Eloisa Espinal MD [address] [place] [address] Home Care Provider Family Medicine 12/24/18 Elsa Mayo APRN.TRANSFER AND PUMPHOUSE OPERATOR CHIEF [address] [place] [address] Quality Assurance Practice Manager Family Medicine 01/20/24 Mike Lee APRN.TRANSFER AND PUMPHOUSE OPERATOR CHIEF [address] [place] [address] Quality Assurance Practice Manager Family Medicine 01/29/24 Radiation Oncology Nurse Relationship Specialty Start Date End Date Eloisa Espinal MD [address] [place] [address] PCP - General 12/14/08 Buddy Lynn MD [address] [phone] Consulting General Surgery 12/24/18 Eloisa Espinal MD [address] [place] [address] Home Care Provider Family Medicine 12/24/18 Elsa Mayo APRN.TRANSFER AND PUMPHOUSE OPERATOR CHIEF [address] [place] [address] Quality Assurance Practice Manager Family Medicine 01/20/24 Mike Lee APRN.TRANSFER AND PUMPHOUSE OPERATOR CHIEF [address] [place] [address] Quality Assurance Practice Manager Family Medicine 01/29/24 Radiation Oncology Nurse Relationship Specialty Start Date End Date Eloisa Espinal MD [address] [place] [address] PCP - General 12/14/08 Buddy Lynn MD [address] [place] [address] [place], [place] [phone] Consulting General Surgery 12/24/18 Eloisa Espinal MD [address] [place] [address] Home Care Provider Family Medicine 12/24/18 Elsa Mayo APRN.TRANSFER AND PUMPHOUSE OPERATOR CHIEF [address] [place] [address] Quality Assurance Practice Manager Family Medicine 01/20/24 Mike Lee APRN.TRANSFER AND PUMPHOUSE OPERATOR CHIEF [address] [place] [address] Quality Assurance Practice Manager Family Medicine 01/29/24 Radiation Oncology Nurse Relationship Specialty Start Date End Date Eloisa Espinal MD [address] [place] [address] PCP - General 12/14/08 [address] MD [address] [facility] [address] [facility] [address] [place], [place] [phone] Consulting General Surgery 12/24/18 Eloisa Espinal MD [address] [place] [address] Home Care Provider Family Medicine 12/24/18 Elsa Mayo APRN.TRANSFER AND PUMPHOUSE OPERATOR CHIEF [address] [place] [address] Quality Assurance Practice Manager Family Medicine 01/20/24 Mike Lee APRN.TRANSFER AND PUMPHOUSE OPERATOR CHIEF [address] [place] [address] Quality Assurance Practice Manager Family Medicine 01/29/24 Radiation Oncology Nurse Relationship Specialty Start Date End Date Eloisa Espinal MD [address] [place] [address] PCP - General 12/14/08 Buddy Lynn MD [address] [facility] [address] [place] [address] Consulting General Surgery 12/24/18 Eloisa Epsinal MD [address] [place] [address] Home Care Provider Family Medicine 12/24/18 Elsa Mayo APRN.TRANSFER AND PUMPHOUSE OPERATOR CHIEF [address] [place] [address] Quality Assurance Practice Manager Family Medicine 01/20/24 Mike Lee APRN.TRANSFER AND PUMPHOUSE OPERATOR CHIEF [address] [place] [address] Quality Assurance Practice Manager Family [facility] 01/29/24 Team Status: Active Member Role Status Dates Dr. Eloisa Espinal MD Primary Care Provider Active Team Status: Inactive Member Role Status Dates Dr. Eloisa Espinal MD Primary Care Provider Active Start: April 23, 2024 End: April 23, 2024 Dr. Eloisa Espinal MD Referring Provider Active Start: April 23, 2024 End: April 23, 2024 Dr. Stacey Daly MD Attending Provider Active Start: April 23, 2024 End: April 23, 2024 Team Status: Inactive Member Role Status Dates Dr. Eloisa Espinal MD Primary Care Provider Active Start: April 25, 2024 End: April 26, 2024 Dr. Dave Velasco MD Emergency Provider Active Sta rt: April 25, 2024 End: April 26, 2024 Radiation Oncology Nurse Relationship Specialty Start Date End Date Eloisa Espinal MD [address] [place], [place] [address] PCP - General 12/14/08 Buddy Lynn MD [address] [facility] [address] [place], [place] [id number] Consulting General Surgery 12/24/18 Eloisa Espinal MD [address] [place], [place] [address] Home Care Provider Family Medicine 12/24/18 Elsa Mayo APRN.TRANSFER AND PUMPHOUSE OPERATOR CHIEF [address] [place], [place] [id number] Quality Assurance Practice Manager Family Medicine 01/20/24 Mike Lee APRN.TRANSFER AND PUMPHOUSE OPERATOR CHIEF [address] [place], [place] [id number] Quality Assurance Practice Manager Family Medicine 01/29/24 Team Status: Inactive Member Role Status Dates Dr. Eloisa Espinal MD Primary Care Provider Active Start: April 25, 2024 End: April 26, 2024 Dr. Dave Velasco MD Attending Provider Active Sta rt: April 25, 2024 End: April 26, 2024 Dr. Dave Velasco MD Emergency Provider Active Sta rt: April 25, 2024 End: April 26, 2024 Team Status: Inactive Member Role Status Dates Dr. Eloisa Espinal MD Primary Care Provider Active Start: May 22, 2024 End: May 22, 2024 Dr. Stacey Daly MD Attending Provider Active Start: May 22, 2024 End: May 22, 2024 Dr. Stacey Daly MD Referring Provider Active Start: May 22, 2024 End: May 22, 2024 Team Status: Active Member Role Status Dates Dr. Eloisa Espinal MD Primary Care Provider Active Start: May 22, 2024 Dr. Stacey Daly MD Attending Provider Active Start: May 22, 2024 Dr. Stacey Daly MD Referring Provider Active Start: May 22, 2024 Dr. Stacey Daly MD Other Provider Active Star t: May 22, 2024 Radiation Oncology Nurse Relationship Specialty Start Date End Date Eloisa Espinal MD [address] [place] [address] PCP - General 12/14/08 Buddy Lynn MD [address] [place], [place] [phone] Consulting General Surgery 12/24/18 Eloisa Espinal MD [address] [place] [address] Home Care Provider Family Medicine 12/24/18 Elsa Mayo, FIELD MECHANIC/SITE LEAD.TRANSFER AND PUMPHOUSE OPERATOR CHIEF [address] [place] [address] Quality Assurance Practice Manager Family Medicine 01/20/24 Mike Lee APRN.TRANSFER AND PUMPHOUSE OPERATOR CHIEF [address] [place] [address] Quality Assurance Practice Manager Family Medicine 01/29/24 Radiation Oncology Nurse Relationship Specialty Start Date End Date Eloisa Espinal MD [address] [place] [address] PCP - General 12/14/08 Buddy Lynn MD [address] [place], [place] [phone] Consulting General Surgery 12/24/18 Eloisa Espinal MD [address] [place] [address] Home Care Provider Family Medicine 12/24/18 Mike Lee APRN.TRANSFER AND PUMPHOUSE OPERATOR CHIEF [address] [place], [place] [id number] Quality Assurance Practice Manager Family Medicine 01/29/24 Team Status: Inactive Member Role Status Dates Dr. Eloisa Espinal MD Primary Care Provider Active Start: July 03, 2024 End: July 04, 2024 Dr. Stacey Daly MD Admit Provider Active Star t: July 03, 2024 End: July 04, 2024 Dr. Stacey Daly MD Attending Provider Active Start: July 03, 2024 End: July 04, 2024 Dr. Stacey Daly MD Referring Provider Active Start: July 03, 2024 End: July 04, 2024 Dr. Stacey Daly MD Other Provider Active Star t: July 03, 2024 Team Status: Active Member Role Status Dates Dr. Eloisa Espinal MD Primary Care Provider Active Start: July 28, 2024 Emelina Taylor MACHINIST WOOD, MACHINIST WOOD-C Attending Provider Active Start: July 28, 2024 Team Status: Inactive Member Role Status Dates Dr. Eloisa Espinal MD Primary Care Provider Active Start: August 06, 2024 End: August 06, 2024 Dr. Stacey Daly MD Attending Provider Active Start: August 06, 2024 End: August 06, 2024 Dr. Stacey Daly MD Referring Provider Active Start: August 06, 2024 End: August 06, 2024 Radiation Oncology Nurse Relationship Specialty Start Date End Date Eloisa Espinal MD [address] [place], [place] [address] PCP - General 12/14/08 Buddy Lynn MD [address] [place] [address] Consulting General Surgery 12/24/18 Eloisa Espinal MD [address] [place], [place] [id number] Home Care Provider Family Medicine 12/24/18 Mike LeeSANDY.TRANSFER AND PUMPHOUSE OPERATOR CHIEF [address] [place] [address] Quality Assurance Practice Manager Family Medicine 01/29/24 Team Status: Active Member Role/Relationship Status Dates Dr. Eloisa Espinal MD Primary Care Provider Active Team Status: Inactive Member Role/Relationship Status Dates Dr. Eloisa Espinal MD Primary Care Provider Active Start: April 23, 2024 End: April 23, 2024 Dr. Eloisa Espinal MD Referring Provider Active Start: April 23, 2024 End: April 23, 2024 Dr. Stacey Daly MD Attending Provider Active Start: April 23, 2024 End: April 23, 2024 Team Status: Inactive Member Role/Relationship Status Dates Dr. lEoisa Espinal MD Primary Care Provider Active Start: April 25, 2024 End: April 26, 2024 Dr. Dave Velasco MD Attending Provider Active Sta rt: April 25, 2024 End: April 26, 2024 Dr. Dave Velasco MD Emergency Provider Active Sta rt: April 25, 2024 End: April 26, 2024 Team Status: Inactive Member Role/Relationship Status Dates Dr. Eloisa Espinal MD Primary Care Provider Active Start: May 22, 2024 End: May 22, 2024 Dr. Stacey Daly MD Attending Provider Active Start: May 22, 2024 End: May 22, 2024 Dr. Stacey Daly MD Referring Provider Active Start: May 22, 2024 End: May 22, 2024 Team Status: Active Member Role/Relationship Status Dates Dr. Eloisa Espinal MD Primary Care Provider Active Start: May 22, 2024 Dr. Stacey Daly MD Attending Provider Active Start: May 22, 2024 Dr. Stacey Dayl MD Referring Provider Active Start: May 22, 2024 Dr. Stacey Daly MD Other Provider Active Star t: May 22, 2024 Team Status: Inactive Member Role/Relationship Status Dates Dr. Eloisa Espinal MD Primary Care Provider Active Start: July 03, 2024 End: July 04, 2024 Dr. Stacey Daly MD Admit Provider Active Star t: July 03, 2024 End: July 04, 2024 Dr. Stacey Daly MD Attending Provider Active Start: July 03, 2024 End: July 04, 2024 Dr. Stacey Daly MD Referring Provider Active Start: July 03, 2024 End: July 04, 2024 Dr. Stacey Daly MD Other Provider Active Star t: July 03, 2024 Team Status: Active Member Role/Relationship Status Dates Dr. Eloisa Espinal MD Primary Care Provider Active Start: July 28, 2024 Emelina Taylor MACHINIST WOOD, MACHINIST WOOD-C Attending Provider Active Start: July 28, 2024 Team Status: Inactive Member Role/Relationship Status Dates Dr. Eloisa Espinal MD Primary Care Provider Active Start: August 06, 2024 End: August 06, 2024 Dr. Stacey Daly MD Attending Provider Active Start: August 06, 2024 End: August 06, 2024 Dr. Stacey Daly MD Referring Provider Active Start: August 06, 2024 End: August 06, 2024 Team Status: Inactive Member Role/Relationship Status Dates Dr. Eloisa Espinal MD Primary Care Provider Active Start: August 19, 2024 End: August 19, 2024 Dr. Eloisa Espinal MD Referring Provider Active Start: August 19, 2024 End: August 19, 2024 Emelina Taylor MACHINIST WOOD, MACHINIST WOOD-C Attending Provider Active Start: August 19, 2024 End: August 19, 2024 Team Status: Inactive Member Role/Relationship Status Dates Dr. Eloisa Espinal MD Primary Care Provider Active Start: May 22, 2024 End: May 22, 2024 Dr. Stacey Daly MD Attending Provider Active Start: May 22, 2024 End: May 22, 2024 Dr. Stacey Daly MD Referring Provider Active Start: May 22, 2024 End: May 22, 2024 Team Status: Active Member Role/Relationship Status Dates Dr. Eloisa Espinal MD Primary Care Provider Active Start: May 22, 2024 Dr. Stacey Daly MD Attending Provider Active Start: May 22, 2024 Dr. Stacey Daly MD Referring Provider Active Start: May 22, 2024 Dr. Stacey Daly MD Other Provider Active Star t: May 22, 2024 Team Status: Inactive Member Role/Relationship Status Dates Dr. Eloisa Espinal MD Primary Care Provider Active Start: July 03, 2024 End: July 04, 2024 Dr. Stacey Daly MD Admit Provider Active Star t: July 03, 2024 End: July 04, 2024 Dr. Stacey Daly MD Attending Provider Active Start: July 03, 2024 End: July 04, 2024 Dr. Stacey Daly MD Referring Provider Active Start: July 03, 2024 End: July 04, 2024 Dr. Stacey Daly MD Other Provider Active Star t: July 03, 2024 Team Status: Active Member Role/Relationship Status Dates Dr. Eloisa Espinal MD Primary Care Provider Active Start: July 28, 2024 Dr. Stacey Daly MD Attending Provider Active Start: July 28, 2024 Dr. Stacey Daly MD Referring Provider Active Start: July 28, 2024 Dr. Stacey Daly MD Other Provider Active Star t: July 28, 2024 Team Status: Inactive Member Role/Relationship Status Dates Dr. Eloisa Espinal MD Primary Care Provider Active Start: August 06, 2024 End: August 06, 2024 Dr. Stacey Daly MD Attending Provider Active Start: August 06, 2024 End: August 06, 2024 Dr. Stacey Daly MD Referring Provider Active Start: August 06, 2024 End: August 06, 2024 Team Status: Inactive Member Role/Relationship Status Dates Dr. Eloisa Espinal MD Primary Care Provider Active Start: August 19, 2024 End: August 19, 2024 Dr. Eloisa Espinal MD Referring Provider Active Start: August 19, 2024 End: August 19, 2024 Emelina Taylor MACHINIST WOOD, MACHINIST WOOD-C Attending Provider Active Start: August 19, 2024 End: August 19, 2024 Team Status: Inactive Member Role/Relationship Status Dates Dr. Eloisa Espinal MD Primary Care Provider Active Start: September 04, 2024 End: September 04, 2024 Emelina Taylor MACHINIST WOOD, MACHINIST WOOD-C Attending Provider Active Start: September 04, 2024 End: September 04, 2024 Emelina Taylor MACHINIST WOOD, MACHINIST WOOD-C Referring Provider Active Start: September 04, 2024 End: September 04, 2024 Radiation Oncology Nurse Relationship Specialty Start Date End Date Eloisa Espinal MD [address] [place] [address] PCP - General 12/14/08 Buddy Lynn MD [address] [facility] [address] [place], [place] [phone] Consulting General Surgery 12/24/18 Eloisa Espinal MD [address] [place] [address] Home Care Provider Family Medicine 12/24/18 Mike Lee APRN.TRANSFER AND PUMPHOUSE OPERATOR CHIEF [address] [place] [address] Quality Assurance Practice Manager Family Medicine 01/29/24 Radiation Oncology Nurse Relationship Specialty Start Date End Date Eloisa Espinal MD [address] [place] [address] PCP - General 12/14/08 Buddy Lynn MD 1 [facility] [address] [place], [place] [id number] Consulting General Surgery 12/24/18 Eloisa Espinal MD [address] [place] [address] Home Care Provider Family Medicine 12/24/18 Mike Lee APRN.TRANSFER AND PUMPHOUSE OPERATOR CHIEF [address] [place] [address] Quality Assurance Practice Manager Family Medicine 01/29/24 Radiation Oncology Nurse Relationship Specialty Start Date End Date Eloisa Espinal MD [address] [place] [address] PCP - General 12/14/08 Buddy Lynn MD [address] [place], [place] [phone] Consulting General Surgery 12/24/18 Eloisa Espinal MD [address] [place] [address] Home Care Provider Family Medicine 12/24/18 Mike Lee APRN.TRANSFER AND PUMPHOUSE OPERATOR CHIEF [address] [place] [address] Quality Assurance Practice Manager Family Medicine 01/29/24 Radiation Oncology Nurse Relationship Specialty Start Date End Date Eloisa Espinal MD [address] [place] [address] PCP - General 12/14/08 Buddy Lynn MD [address] [facility] [address] [place], [place] [phone] Consulting General Surgery 12/24/18 Eloisa Espinal MD [address] [place] [address] Home Care Provider Family Medicine 12/24/18 Mike Lee APRN.TRANSFER AND PUMPHOUSE OPERATOR CHIEF [address] [place] [address] Quality Assurance Practice Manager Family Medicine 01/29/24 Radiation Oncology Nurse Relationship Specialty Start Date End Date Eloisa Espinal MD [address] [place] [address] PCP - General 12/14/08 Buddy Lynn MD [address] [facility] [address] [place] [address] Consulting General Surgery 12/24/18 Eloisa Espinal MD [address] [place], [place] [address] Home Care Provider Family Medicine 12/24/18 Mike Lee APRN.CNP [address] [place], [place] [address] Quality Assurance Practice Manager Family Medicine 01/29/24 Team Status: Active Member Role/Relationship Status Dates Dr. Eloisa Espinal MD Primary care physician Active Team Status: Active Member Role/Relationship Status Dates Dr. Eloisa Espinal MD Primary care physician Active Start: July 28, 2024 Dr. Stacey Daly MD Attending physician Active Start: July 28, 2024 Dr. Stacey Daly MD Referring Provider Active Start: July 28, 2024 Dr. Stacey Daly MD Nurse Practitioner Active Start: July 28, 2024 Team Status: Inactive Member Role/Relationship Status Dates Dr. Eloisa Espinal MD Primary care physician Active Start: August 06, 2024 End: August 06, 2024 Dr. Stacey Daly MD Attending physician Active Start: August 06, 2024 End: August 06, 2024 Dr. Stacey Daly MD Referring Provider Active Start: August 06, 2024 End: August 06, 2024 Team Status: Inactive Member Role/Relationship Status Dates Dr. Eloisa Espinal MD Primary care physician Active Start: August 19, 2024 End: August 19, 2024 Dr. Eloisa Espinal MD Referring Provider Active Start: August 19, 2024 End: August 19, 2024 Emelina Taylor NP, MACHINIST WOOD-C Attending physician Active Start: August 19, 2024 End: August 19, 2024 Team Status: Inactive Member Role/Relationship Status Dates Dr. Eloisa Espinal MD Primary care physician Active Start: September 04, 2024 End: September 04, 2024 Emelina Taylor NP, MACHINIST WOOD-C Attending physician Active Start: September 04, 2024 End: September 04, 2024 Emelina Taylor MACHINIST WOOD, MACHINIST WOOD-C Referring Provider Active Start: September 04, 2024 End: September 04, 2024 Team Status: Inactive Member Role/Relationship Status Dates Dr. Eloisa Espinal MD Primary care physician Active Start: November 11, 2024 End: November 11, 2024 Dr. Eloisa Espinal MD Referring Provider Active Start: November 11, 2024 End: November 11, 2024 Dr. Stacey Daly MD Attending physician Active Start: November 11, 2024 End: November 11, 2024 Team Status: Inactive Member Role/Relationship Status Dates Dr. Eloisa Espinal MD Primary care physician Active Start: September 04, 2024 End: September 04, 2024 Emelina Taylor MACHINIST WOOD, MACHINIST WOOD-C Attending physician Active Start: September 04, 2024 End: September 04, 2024 Emelina Taylor MACHINIST WOOD, MACHINIST WOOD-C Referring Provider Active Start: September 04, 2024 End: September 04, 2024 Team Status: Inactive Member Role/Relationship Status Dates Dr. Eloisa Espinal MD Primary care physician Active Start: November 11, 2024 End: November 11, 2024 Dr. Eloisa Espinal MD Referring Provider Active Start: November 11, 2024 End: November 11, 2024 Dr. Stacey Daly MD Attending physician Active Start: November 11, 2024 End: November 11, 2024 Team Status: Inactive Member Role/Relationship Status Dates Dr. Eloisa Espinal MD Primary care physician Active Start: November 30, 2024 End: November 30, 2024 Dr. Susannah Rivera DO Attending physician Active Start: November 30, 2024 End: November 30, 2024 Dr. Susannah Rivera DO Emergency Departmen t Physician Active Start: November 30, 2024 End: November 30, 2024 Team Status: Active Member Role/Relationship Status Dates Dr. Eloisa Espinal MD Primary care physician Active Start: December 13, 2024 Dr. Haider Lazo MD Admitting physician Active Start: December 13, 2024 Dr. Haider Lazo MD Attending physician Active Start: December 13, 2024 Reason for Visit (unrecogniz ed section and content) Reason Comments Consult Specialty Diagnoses / Procedures Referred By Contac t Referred To Contact General Surgery Diagnoses Umbilical hernia without obstruction or gangrene Procedures CONSULT TO GENERAL SURGERY OFFICE/OUTPATIENT NEW HIGH MDM 60 MINUTES Elsa Mayo APRN.TRANSFER AND PUMPHOUSE OPERATOR CHIEF [address] [place] [address] Phone: tel: fax: Referral ID Status Reason Start Date Expiration Date V isits Requested Visits Authorized [id number] Closed PCP Requested Referral 03/19/2024 03/19/2025 1 1 Reason Comments Physical Therapy PT Progress Note Specialty Diagnoses / Procedures Referred By Contac t Referred To Contact [facility] Diagnoses Sciatica, right side Procedures CONSULT TO PHYSICAL THERAPY PHYSICAL THERAPY EVALUATION HIGH COMPLEX 45 MINS Eloisa Espinal MD [address] [place] [address] [facility] Sports Therapy [address] [address] Referral ID Status Reason Start Date Expiration Date Visits Requested Visits Authorized [id number] Authorized PCP Requested Referral Auto-Generate d Referral 4 01/11/2025 99 99 Reason Comments Physical Therapy Specialty Diagnoses / Procedures Referred By Contac t Referred To Contact [facility] Diagnoses Left arm pain Cervical radiculopathy Procedures CONSULT TO PHYSICAL THERAPY PHYSICAL THERAPY EVALUATION HIGH COMPLEX 45 MINS Kel Sun MD [address] [place] [address] [address] Referral ID Status Reason Start Date Expiration Date Visits Requested Visits Authorized [id number] Authorized PCP Requested Referral Auto-Generate d Referral 2 12/05/2022 99 99 Reason Comments PT Progress Note Reason Comments PT Discharge Specialty Diagnoses / Procedures Referred By Contac t Referred To Contact [facility] Diagnoses DDD (degenerative disc disease), lumbar Procedures CONSULT TO PHYSICAL THERAPY PHYSICAL THERAPY EVALUATION HIGH COMPLEX 45 MINS Eloisa Espinal MD [address] [place] [address] [facility] Therapy [address] [address] Referral ID Status Reason Start Date Expiration Date Visits Requested Visits Authorized [id number] Authorized PCP Requested Referral Auto-Generate d Referral 07/06/2021 07/06/2022 99 99 Reason Comments Consult Internal : Hiatal he rnia Reason Comments Ear Problem thinks ears are plug ged-can't hear x 2 weeks-also sinus Reason Comments Radiology CT Specialty Diagnoses / Procedures Referred By Contac t Referred To Contact CT IMAGING Diagnoses Diaphragmatic hernia with obstruction, without gangrene Procedures CT CHEST WO IVCON DIAGNOSTIC COMPUTED TOMOGRAPHY THORAX W/O CNTRST Julián Boothe MD [address] [place] [address] Ct Imaging Referral ID Status Reason Start Date Expiration Date V isits Requested Visits Authorized [id number] Closed Auto-Generate d Referral 05/31/2021 06/30/2022 1 1 Reason Onset Date Comments Refill Request 06/23/2021 Reason Comments F/U 3 Month Reason Comments Medication Request Reason Onset Date Comments Transition Of Care 09/21/2021 Reason Comments Pain (Elbow Pain) Left Reason Comments CARD Follow Up Annual CAD Reason Comments PT Eval Patient Education Reason Comments New Pain Specialty Diagnoses / Procedures Referred By Contac t Referred To Contact Orthopedics Diagnoses Left arm pain Procedures CONSULT TO ORTHOPAEDICS OFFICE/OUTPATIENT [facility] 60-74 MINUTES Eloisa Espinal MD [address] [place] [id number] Referral ID Status Reason Start Date Expiration Date V isits Requested Visits Authorized [id number] Closed PCP Requested Referral 11/15/2021 11/15/2022 1 1 Reason Comments 6 Month Exam HTN, Lipid, TSH Reason Comments Consult EGD consult, abdomin al wall hernia Specialty Diagnoses / Procedures Referred By Contac t Referred To Contact General Surgery Diagnoses Escobedo's esophagus with low grade dysplasia Procedures CONSULT TO GENERAL SURGERY OFFICE/OUTPATIENT [facility] 60-74 MINUTES Eloisa Espinal MD [address] [place] [address] Referral ID Status Reason Start Date Expiration Date V isits Requested Visits Authorized [id number] Closed PCP Requested Referral 03/06/2022 03/06/2023 1 1 Reason Comments Covid19 Concern Fatigue, bodyaches x this AM+ exposure x5 days Reason Comments Appointment Reason Onset Date Comments Refill Request 05/23/2022 Reason Onset Date Comments Population Health Navigation Outreach 06/08/2022 HCC GAP Reason Comments Follow Up Abdomen pain Reason Comments Review CT results Specialty Diagnoses / Procedures Referred By Contac t Referred To Contact General Surgery Diagnoses Periumbilical hernia Procedures CONSULT TO GENERAL SURGERY OFFICE/OUTPATIENT [facility] 60-74 MINUTES Eloisa Espinal MD [address] [place] [address] Referral ID Status Reason Start Date Expiration Date V isits Requested Visits Authorized [id number] Closed PCP Requested Referral 06/20/2022 06/20/2023 1 1 Reason Comments Patient Question Pre-op testing Reason Comments Appointment Confirmation Reason Comments Pre-Op Exam Reason Comments Post Dc Program Call - Reason Comments Med Change Request Reason Comments Radio GI Main HB6 Specialty Diagnoses / Procedures Referred By Contac t Referred To Contact XR IMAGING Diagnoses Hiatal hernia Procedures XR ESOPHAGRAM RADIOLOGIC EXAM ESOPHAGUS SINGLE CONTRAST STUDY Valentina Sánchez, FIELD MECHANIC/SITE LEAD.TRANSFER AND PUMPHOUSE OPERATOR CHIEF [address] [place] [phone] [facility] [place] [address] Referral ID Status Reason Start Date Expiration Date V isits Requested Visits Authorized [id number] Closed Auto-Generate d Referral 09/04/2022 10/04/2023 1 1 Specialty Diagnoses / Procedures Referred By Contac t Referred To Contact CT IMAGING Diagnoses RLQ abdominal pain Right upper quadrant abdominal mass Change in bowel function Procedures CT ABD/PEL WO IVCON CT ABD & PELVIS W/O CONTRAST Eloisa Espinal MD [address] [place] [address] Ct Imaging [id number] Referral ID Status Reason Start Date Expiration Date V isits Requested Visits Authorized [id number] Closed Auto-Generate d Referral 06/09/2022 07/09/2023 1 1 Reason Comments Consult Hernia, CT scan Reason Comments Post Op Follow Up 04/03/23 ventral inci sional hernia repair- [place] Specialty Diagnoses / Procedures Referred By Contac t Referred To Contact General Surgery Diagnoses Hernia Procedures CONSULT TO GENERAL SURGERY OFFICE/OUTPATIENT NEW HIGH MDM 60 MINUTES Amaya Sung, FIELD MECHANIC/SITE LEAD.TRANSFER AND PUMPHOUSE OPERATOR CHIEF [address] [place] [address] Referral ID Status Reason Start Date Expiration Date V isits Requested Visits Authorized [id number] Closed PCP Requested Referral 02/26/2023 02/26/2024 1 1 Reason Comments Results Labs Reason Comments Refill Request Reason Comments New Patient Nocturia Specialty Diagnoses / Procedures Referred By Contac t Referred To Contact Urology Diagnoses Frequent urination Procedures CONSULT TO UROLOGY OFFICE/OUTPATIENT NEW HIGH MDM 60 MINUTES Elsa Mayo, FIELD MECHANIC/SITE LEAD.TRANSFER AND PUMPHOUSE OPERATOR CHIEF [address] [place] [address] Referral ID Status Reason Start Date Expiration Date V isits Requested Visits Authorized [id number] Closed PCP Requested Referral 04/26/2023 04/25/2024 1 1 Reason Comments Orders Reason Onset Date Comments Transition Of Care 07/10/2023 TCM hospital discharge Reason Comments F/U 6 Month Reason Onset Date Comments Transition Of Care 07/17/2023 TCM discharge follow-up Reason Onset Date Comments Transition Of Care 08/01/2023 TCM discharge follow-up Reason Comments F/U 1 month Reason Onset Date Comments Refill Request 08/23/2023 Reason Comments Follow Up Benign Prostatic Hypertrophy Reason Comments Appointment Reason Comments Hospital F/U Reason Comments Abdominal Pain Reason Onset Date Comments Refill Request 11/08/2023 Reason Onset Date Comments F/U 3 Month Immunizations 11/15/2023 Flu vaccination Reason Comments ER F/U Reason Comments 04/03/2023 VENTRAL HERNIA REPAIR HOOD Reason Comments Follow Up Back pain Reason Comments PT Eval Physical Therapy Reason Onset Date Comments Refill Request 03/07/2024 Reason Comments Acute Visit increased SOB and fa tique per PT Specialty Diagnoses / Procedures Referred By Contac t Referred To Contact [facility] Diagnoses Sciatica, right side Procedures CONSULT TO PHYSICAL THERAPY PHYSICAL THERAPY EVALUATION HIGH COMPLEX 45 MINS Eloisa Espinal MD [address] [place] [address] Phone: tel: fax: [facility] [address] [place] [address] Referral ID Status Reason Start Date Expiration Date Visits Requested Visits Authorized [id number] Authorized PCP Requested Referral Auto-Generate d Referral 4 01/11/2025 99 99 Reason Onset Date Comments Refill Request 03/27/2024 Reason Comments Medication Problem Alternative requeste d Reason Comments Hospital Follow Up Reason Comments 04-08-2024 Hernia Hood Reason Comments F/U 6 Month Reason Onset Date Comments Population Health Navigation Outreach 05/20/2024 [facility] Reason Comments Consult Shortness of Breath Specialty Diagnoses / Procedures Referred By Contac t Referred To Contact Pulmonary and Critical Care Medicine Diagnoses JOHNSON (dyspnea on exertion) Procedures CONSULT TO PULM/CRITICAL CARE OFFICE/OUTPATIENT [facility] 60 MINUTES Eloisa Espinal MD [address] [place] [address] Phone: tel: fax: Referral ID Status Reason Start Date Expiration Date V isits Requested Visits Authorized [id number] Closed PCP Requested Referral 09/11/2024 09/11/2025 1 1 Reason Comments Follow Up Consult for hernia surgery Goals (unrecognized section and content) Goals may be documented in a n alternate sectionGoals may be documented in an alternate sectionGoals may be documented in an alternate sectionGoals may be documented in an alternate sectionGoals may be documented in an alternate sectionGoals may be documented in an alternate sectionGoals may be documented in an alternate sectionGoals may be documented in an alternate section FOR RECORDS PERTAINING TO PATIENTS WHO ARE OR HAVE BEEN ENROLLED IN A CHEMICAL DEPENDENCY/SUBSTANCEABUSE PROGRAM, SOME INFORMATION MAY BE OMITTED. This clinical summary was aggregated from multiple sources. Caution should be exercised in using it in the provision of clinical care. This summary normalizes information from multiple sources, and as a consequence, information in this document may materially change the coding, format and clinical context of patient data. In addition, data may be omitted in some cases. CLINICAL DECISIONS SHOULD BE BASED ON THE PRIMARY CLINICAL RECORDS. [employer] provides no warranty or guarantee of the accuracy or completeness of information in this document.
== END 2024-12-22 17:23 | disposition home or self-care (01) ==
LOC: EN 15:53 → AC 15:53
PROVIDERS: PCP Family Medicine; Referring Provider Family Medicine; Visit Provider Internal Medicine Gastroenterology
PROC: 0DJ08ZZ Inspection of Upper Intestinal Tract, Via Natural or Artificial Opening Endoscopic (ICD-10-PCS; CPT 43235; principal; 2024-12-22 13:40)
DX: K29.51 Unspecified chronic gastritis with bleeding (principal); J44.9 Chronic obstructive pulmonary disease, unspecified; I48.0 Paroxysmal atrial fibrillation; D62 Acute posthemorrhagic anemia; K44.9 Diaphragmatic hernia without obstruction or gangrene; E78.5 Hyperlipidemia, unspecified; K22.70 Barrett's esophagus without dysplasia; D50.9 Iron deficiency anemia, unspecified; Z79.899 Other long term (current) drug therapy; Z87.891 Personal history of nicotine dependence; I25.10 Atherosclerotic heart disease of native coronary artery without angina pectoris; I10 Essential (primary) hypertension; Z98.890 Other specified postprocedural states; Z87.19 Personal history of other diseases of the digestive system; K21.9 Gastro-esophageal reflux disease without esophagitis; Z79.02 Long term (current) use of antithrombotics/antiplatelets; Z79.82 Long term (current) use of aspirin; Z79.890 Hormone replacement therapy; E03.9 Hypothyroidism, unspecified; K25.9 Gastric ulcer, unspecified as acute or chronic, without hemorrhage or perforation; K25.4 Chronic or unspecified gastric ulcer with hemorrhage; Z95.5 Presence of coronary angioplasty implant and graft
CPT/HCPCS: 44361; 88305; 88342

== ENCOUNTER → 2025-01-05 | Outpatient (CLI) | payer MEDICARE, OTHER, SELFPAY ==
[2025-01-05 15:02] LABS: Hematocrit 27.5 % (40-54); Hemoglobin 8.5 g/dL (13.0-16.5); Immature Granulocytes Count 0.110 X10^3/uL (0.0-0.0); Mean Corp Hgb Conc 30.9 g/dL (32-36); Mean Corpuscular Volume 81.8 fL (80-94); Mean Platelet Vol. 11.9 fl (6.2-12.0); NRBC Flagged by Analyzer 0 % (0-5); POSITIVE DIFFERENTIAL YES; Platelet Count 124 K/mm3 (150-450); RBC Distribution Width CV 18.8 % (11.6-14.6); RBC Distribution Width SD 57.1 fl (35.1-43.9); Red Blood Count 3.36 M/mm3 (4.6-6.2); White Blood Count 9.3 K/mm3 (4.4-11.0)
[2025-01-05 15:04] LABS: Differential Indicated SCAN CRITERIA MET
[2025-01-05 15:39] LABS: AST(SGOT) 24 U/L (<=37); Alanine Aminotransfer ALT/SGPT 16 U/L (<=46); Albumin, Serum 3.7 g/dL (3.4-4.8); Alkaline Phosphatase 79 U/L (40-129); Anion Gap 11 (5-15); BUN 7 mg/dL (4-19); BUN/Creat Ratio 9.7 RATIO (10-20); Calcium,Total 8.8 mg/dL (7.6-11.0); Carbon Dioxide 22.5 mmol/L (21.0-32.0); Chloride 100 mmol/L (98-108); Ferritin 48 ng/mL (37-417); Globulin 2.9 g/dL (2.2-4.2); Glucose 108 mg/dL (70-99); Iron 26 ug/dL (65-175); Iron Binding Capacity,Total 324 ug/dL (250-450); Iron Binding Capacity,Unsat 298 ug/dL (228-428); Potassium 3.9 mmol/L (3.3-5.1)
== END | disposition home or self-care (01) ==
LOC: HHLAB 13:46
PROVIDERS: PCP Family Medicine; Visit Provider Nurse Practitioner Primary Care
DX: K45.0 Other specified abdominal hernia with obstruction, without gangrene (principal); D62 Acute posthemorrhagic anemia
CPT/HCPCS: 80053; 82728; 83540; 83550; 85025

== ENCOUNTER → 2025-01-30 | Outpatient (CLI) | payer MEDICARE, OTHER, SELFPAY ==
[2025-01-30 13:26] LABS: Hematocrit 32.5 % (40-54); Hemoglobin 9.9 g/dL (13.0-16.5); Mean Corp Hgb Conc 30.5 g/dL (32-36); Mean Corpuscular Volume 85.3 fL (80-94); Mean Platelet Vol. 11.7 fl (6.2-12.0); Platelet Count 168 K/mm3 (150-450); RBC Distribution Width CV 19.9 % (11.6-14.6); RBC Distribution Width SD 61.3 fl (35.1-43.9); Red Blood Count 3.81 M/mm3 (4.6-6.2); White Blood Count 12.3 K/mm3 (4.4-11.0)
[2025-01-30 13:54] LABS: Ferritin 97 ng/mL (37-417); Iron 78 ug/dL (65-175); Iron Binding Capacity,Total 328 ug/dL (250-450); Iron Binding Capacity,Unsat 250 ug/dL (228-428)
== END | disposition home or self-care (01) ==
LOC: HHLAB 12:43
PROVIDERS: PCP Family Medicine; Referring Provider Nurse Practitioner Family; Visit Provider Nurse Practitioner Family
DX: D62 Acute posthemorrhagic anemia (principal)
CPT/HCPCS: 82728; 83540; 83550; 85027